=== PATIENT | male | born 1985 | race Caucasian/White ===

== ENCOUNTER 2022-10-29 14:44 | Emergency (ER) | payer OTHER, SELFPAY ==
[2022-10-29 14:52] VITALS: BP 141/106; PULSE 108; RESP 30; TEMP 36.5; O2SAT 98; BMI 37.5
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
--- NOTE | 2022-10-29 14:56 | CT_ITS ---
[facility] [place] [id number] Patient Name: CHUCK PACKER MRN: [id number] date: 1985 Sex: M Assigned Patient Location: ER Current Patient Location: ED.MAIN Accession/Order Number: [id number] Exam Date: 10/29/2022 13:10 Report Date: 10/29/2022 15:35 At the request of: REGGIE BUTLER Procedure: CT head/brain wo con EXAM: CT head/brain wo con HISTORY: Fall COMPARISON: None. TECHNIQUE: Axial CT images were obtained of the head without intravenous contrast. Multiplanar reconstructions were performed. FINDINGS: No acute intracranial hemorrhage. No acute loss of cheung/white differentiation. The ventricles and sulci are normal in appearance. The osseous structures are unremarkable. No soft tissue abnormality identified. The paranasal sinuses and mastoid air cells are clear. IMPRESSION: 1. No acute intracranial abnormality. Electronically authenticated by: ROSALIO KAUFMAN Date: 10/29/2022 15:35
--- NOTE | 2022-10-29 14:56 | CT_ITS ---
[place] [id number] Patient Name: CHUCK PACKER MRN: [id number] date: 1985 Sex: M Assigned Patient Location: ED.MAIN Current Patient Location: ER Accession/Order Number: [id number] Exam Date: 10/29/2022 13:10 Report Date: 10/29/2022 15:39 At the request of: REGGIE BUTLER Procedure: CT cervical spine wo con EXAM: CT cervical spine wo con HISTORY: Fall COMPARISON: None. TECHNIQUE: Axial CT images were obtained of the spine without intravenous contrast. Multiplanar reconstructions were performed. FINDINGS: No acute fracture or malalignment. No significant degenerative changes present. Unremarkable appearance of the paraspinal soft tissues. IMPRESSION: 1. No acute abnormality. Electronically authenticated by: ROSALIO KAUFMAN Date: 10/29/2022 15:39
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
[2022-10-29] MEDS: MORPHINE SULFATE 4 MG/ML VIAL 6 MG IM (15:45)
[2022-10-29] MEDS: ORPHENADRINE 60 MG/ 2 ML VIAL IM (15:46)
[2022-10-29] MEDS: ADACEL DIPH,PERTUSS(ACELL),TET VAC/PF 0.5 ML ADULT SYRINGE IM (15:47)
[2022-10-29] MEDS: BACITRACIN OINTMENT 28.4 GM TUBE 1 APPLIC TOPICAL (15:48)
[2022-10-29] MEDS: ONDANSETRON 4 MG RAPDIS TABLET SL (15:48)
--- NOTE | 2022-10-29 16:19 | PC.NURSE ---
Wounds cleaned with Hibiclens and water. wounds patted dry and thin layer of bacitracin placed on wounds. bandaids placed left finger wounds
== END 2022-10-29 16:49 | disposition home or self-care (01) ==
PROVIDERS: Emergency Provider Emergency Medicine; PCP Nurse Practitioner Family
DX: S70.01XA Contusion of right hip, initial encounter (principal); S50.01XA Contusion of right elbow, initial encounter; S70.311A Abrasion, right thigh, initial encounter; S60.512A Abrasion of left hand, initial encounter; F17.210 Nicotine dependence, cigarettes, uncomplicated; W19.XXXA Unspecified fall, initial encounter; Z23 Encounter for immunization
CPT/HCPCS: 70450; 72125; 73080; 73090; 73130; 73502; 90471; 90715; 96372; 99285

== ENCOUNTER 2022-11-20 11:05 | Emergency (ER) | payer OTHER, SELFPAY ==
[2022-11-20 11:29] VITALS: BP 145/97; PULSE 72; RESP 16; TEMP 36.4; O2SAT 98; BMI 37.8
--- NOTE | 2022-11-20 11:35 | PC.NURSE ---
skin intact, no redness or bruising.
--- NOTE | 2022-11-20 12:47 | XR_ITS ---
The [address] [address] Patient Name: CHUCK PACKER MRN: [id number] date: 1985 Sex: M Assigned Patient Location: ER Current Patient Location: ER Accession/Order Number: [id number] Exam Date: 11/20/2022 13:15 Report Date: 11/20/2022 13:40 At the request of: KORI CHRISTIANSON Procedure: XR hip RT 1V w/ pelvis EXAM: Pelvis and right hip HISTORY: Acute hip pain since a fall one week ago. TECHNIQUE: 3 views of the pelvis and right hip were obtained. FINDINGS: There is no evidence of fracture or dislocation. There are no suspicious bone lesions. Soft tissues are normal. XR/XR hip RT 1V w/ pelvis IMPRESSION: Unremarkable exam. Electronically authenticated by: LUCY JEWELL Date: 11/20/2022 13:40
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
[2022-11-20] MEDS: KETOROLAC TROMETHAMINE 60 MG/2 ML VIAL IM (13:05)
[2022-11-20] MEDS: ORPHENADRINE 60 MG/ 2 ML VIAL IM (13:05)
[2022-11-20] MEDS: PREDNISONE 20 MG TABLET 60 MG PO (13:05)
== END 2022-11-20 14:11 | disposition home or self-care (01) ==
PROVIDERS: Emergency Provider Emergency Medicine; PCP Nurse Practitioner Family
DX: M25.551 Pain in right hip (principal); M70.71 Other bursitis of hip, right hip; F17.210 Nicotine dependence, cigarettes, uncomplicated
CPT/HCPCS: 73501; 96372; 99285

== ENCOUNTER 2023-04-11 13:55 | Emergency (ER) | payer OTHER, SELFPAY ==
[2023-04-11 13:59] VITALS: BP 120/84; PULSE 70; RESP 18; TEMP 36.6; O2SAT 97; BMI 39.7
[2023-04-11 14:36] LABS: Basophils Percent Auto 0.1 % (0.2-2.0); Eosinophils Percent Auto 0.4 % (0.9-7.0); Hemoglobin 15.3 g/dL (14.0-18.0); Immature Granulocytes Abs Auto 0.01 10^3/uL (0.00-0.03); Immature Granulocytes Pct Auto 0.1 % (0.0-0.5); Lymphocytes Absolute Auto 2.3 10^3/uL (1.2-3.8); Mean Corpuscular HGB Conc 34.8 g/dL (29.9-35.2); Mean Corpuscular Hemoglobin 29.7 pg (25.9-34.0); Mean Corpuscular Volume 85.3 fL (80.0-94.0); Monocytes Absolute Auto 0.4 10^3/uL (0.3-0.8); Monocytes Percent Auto 5.5 % (1.7-12.0); Neutrophils Absolute Auto 4.2 10^3/uL (1.4-6.5); Neutrophils Percent Auto 60.9 % (43.0-75.0); Platelet Count 189 10^3/uL (150-450); Red Blood Count 5.16 10^6/uL (4.70-6.10); Red Cell Distribution Width 11.9 % (11.0-15.0); White Blood Count 6.9 10^3/uL (4.0-11.0)
[2023-04-11] MEDS: VANCOMYCIN HCL 2,000 MG in 0.9 % SODIUM CHLORIDE 500 ML 250 MG IV (14:40)
--- NOTE | 2023-04-11 14:43 | ED.SKABFB1 ---
HPI - Skin/Abscess/Foreign Bdy General Chief complaint: Skin/Abscess/Foreign Body Stated complaint: UPPER EXTREMITY INJURY L ARM Time Seen by Provider: 04/11/23 14:01 Source: patient Mode of arrival: walk-in Limitations: no limitations History of Present Illness HPI narrative: 37-year-old male presents to the emergency department for redness and pain and swelling to the left 4th finger. She noticed pain going up his arm and it goes up to his upper arm just above the elbow and he saw some red streak as well. No fever or injury. Related Data Home Medications Medication Instructions Recorded Confirmed divalproex 250 mg tablet,extended 250 mg PO DAILY 04/11/23 04/11/23 release 24 hr fluoxetine 10 mg capsule 30 mg PO DAILY 04/11/23 04/11/23 gabapentin 100 mg capsule 100 mg PO TID 04/11/23 04/11/23 hydroxyzine HCl 25 mg tablet 25 mg PO BID PRN anxiety 04/11/23 04/11/23 olanzapine 10 mg tablet 10 mg PO DAILY 04/11/23 04/11/23 Previous Rx's Medication Instructions Recorded ketorolac 10 mg tablet 10 mg PO TID PRN pain #10 tabs 10/29/22 methocarbamol 750 mg tablet 750 mg PO TID PRN pain #20 tabs 10/29/22 prednisone 20 mg tablet 20 mg PO DAILY 10 days #10 tabs 11/20/22 cephalexin 500 mg capsule 500 mg PO QID 10 days #40 caps 04/11/23 sulfamethoxazole 800 1 tab PO BID 10 days #20 tabs 04/11/23 mg-trimethoprim 160 mg tablet (Bactrim DS) Allergies Allergy/AdvReac Type Severity Reaction Status Date / Time erythromycin base Allergy Intermediate Rash Verified 04/11/23 13:59 Penicillins Allergy Intermediate Rash Verified 04/11/23 13:59 Review of Systems ROS Narrative A ten point review of systems is negative except as noted above. PFSH PFSH Social History Smoking status: Current every day smoker Exam Narrative Exam Narrative: Nurses note and vital signs reviewed and patient is not hypoxic. General: The patient appears well and in no apparent distress. Patient is resting comfortably on cart. Skin: Warm, dry, no pallor noted. There is no rash noted. Head: Normocephalic, atraumatic Eye: Normal conjunctiva, no drainage Ears, Nose, Mouth, and Throat: oral mucosa is moist. Nares patent. Cardiovascular: Regular Rate and Rhythm Respiratory: Patient is in no distress, no accessory muscle use, lungs are clear to auscultation, no wheezing, rales or rhonchi Back: non-tender GI: soft and nontender Musculoskeletal: he has an area of erythema on his left ring finger with a small amount of swelling on the radial side distally. There is no felon and there is no paronychia. There is erythema in a linear fashion extends to the area just above his elbow. There is no fluctuance to the swelling. Neurological: A&O, normal speech Psychiatric: Cooperative Constitutional Vital Signs, click to edit/add: Last Vital Signs Temp 97.9 F 04/11/23 13:59 Pulse 76 04/11/23 15:51 Resp 20 04/11/23 16:31 BP 122/86 04/11/23 15:51 Pulse Ox 98 04/11/23 16:31 O2 Del Method Room Air 04/11/23 13:59 Course Vital Signs Vital signs: Vital Signs Temperature 97.9 F 04/11/23 13:59 Pulse Rate 70 04/11/23 13:59 Respiratory Rate 18 04/11/23 13:59 Blood Pressure 120/84 04/11/23 13:59 Pulse Oximetry 97 04/11/23 13:59 Oxygen Delivery Method Room Air 04/11/23 13:59 Temperature 97.9 F 04/11/23 13:59 Pulse Rate 76 04/11/23 15:51 Respiratory Rate 20 04/11/23 16:31 Blood Pressure 122/86 04/11/23 15:51 Pulse Oximetry 98 04/11/23 16:31 Oxygen Delivery Method Room Air 04/11/23 13:59 MDM - Skin/Abscess/Foreign Bdy MDM Narrative Medical decision making narrative: the patient was given IV vancomycin and discharged home on Bactrim and Keflex. He was recommended warm soaks. He was advised to return if symptoms worsen. At this point there is no indication for incision and drainage. There is no paronychia or felon present. Treatment diagnosis and follow-up were discussed with the patient. Differential Diagnosis Differential diagnosis: Likely abscess of skin or subcutaneous tissue and other (cellulitis, paronychia, felon) Lab Data Attestation: I reviewed the patient's lab results. Labs: Lab Results 04/11/23 Range/Units 14:30 WBC 6.9 (4.0-11.0) 10^3/uL RBC 5.16 (4.70-6.10) 10^6/uL Hgb 15.3 (14.0-18.0) g/dL Hct 44.0 (42.0-54.0) % MCV 85.3 (80.0-94.0) fL MCH 29.7 (25.9-34.0) pg MCHC 34.8 (29.9-35.2) g/dL RDW 11.9 (11.0-15.0) % Plt Count 189 (150-450) 10^3/uL MPV 9.0 L (9.5-13.5) fL Neut % (Auto) 60.9 (43.0-75.0) % Lymph % (Auto) 33.0 (20.5-60.0) % [place] % (Auto) 5.5 (1.7-12.0) % Eos % (Auto) 0.4 L (0.9-7.0) % Baso % (Auto) 0.1 L (0.2-2.0) % Neut # (Auto) 4.2 (1.4-6.5) 10^3/uL Lymph # (Auto) 2.3 (1.2-3.8) 10^3/uL [place] # (Auto) 0.4 (0.3-0.8) 10^3/uL Eos # (Auto) 0.0 (0.0-0.7) 10^3/uL Baso # (Auto) 0.0 (0.0-0.1) 10^3/uL Abs Immat Gran (auto) 0.01 (0.00-0.03) 10^3/uL Imm/Tot Granulo (auto) 0.1 (0.0-0.5) % Sodium 136 (136-145) mmol/L Potassium 4.3 (3.5-5.1) mmol/L Chloride 102 (98-107) mmol/L Carbon Dioxide 25.7 (21.0-32.0) mmol/L Anion Gap 12.6 BUN 15.0 (7.0-18.0) mg/dL Creatinine 1.19 (0.70-1.30) mg/dL Est GFR ( Amer) >60 (>=60) Est GFR (Non-Af Amer) >60 (>=60) BUN/Creatinine Ratio 12.6 Glucose 145 H (74-106) mg/dL Calcium 8.9 (8.5-10.1) mg/dL Discharge Plan Discharge Chief Complaint: Skin/Abscess/Foreign Body Clinical Impression: Cellulitis Patient Disposition: Home, Self-Care Time of Disposition Decision: 16:39 Condition: Good Mode of Transportation: Private Vehicle Prescriptions / Home Meds: New sulfamethoxazole-trimethoprim [Bactrim DS] 800-160 mg tablet 1 tab PO BID 10 Days Qty: 20 0RF cephalexin 500 mg capsule 500 mg PO QID 10 Days Qty: 40 0RF No Action ketorolac 10 mg tablet 10 mg PO TID PRN (Reason: pain) Qty: 10 0RF methocarbamol 750 mg tablet 750 mg PO TID PRN (Reason: pain) Qty: 20 0RF prednisone 20 mg tablet 20 mg PO DAILY 10 Days Qty: 10 0RF Rx Instructions: 2 tabs a day for 5 days then 1 tab a day for 5 days divalproex 250 mg tablet extended release 24 hr 250 mg PO DAILY fluoxetine 10 mg capsule 30 mg PO DAILY gabapentin 100 mg capsule 100 mg PO TID hydroxyzine HCl 25 mg tablet 25 mg PO BID PRN (Reason: anxiety) olanzapine 10 mg tablet 10 mg PO DAILY Instructions: Cellulitis (ED), Warm Compress or Soak (ED) Stand Alone Forms: Portal Instructions Referrals: MERNA SORIANO [Primary Care Provider] - 1 week
[2023-04-11 14:45] LABS: Anion Gap 12.6; BUN Creatinine Ratio 12.6; Calcium 8.9 mg/dL (8.5-10.1); Carbon Dioxide 25.7 mmol/L (21.0-32.0); Chloride 102 mmol/L (98-107); Estimated GFR (African America >60 (>=60); Estimated GFR (Non-African Ame >60 (>=60); Glucose 145 mg/dL (74-106); Potassium 4.3 mmol/L (3.5-5.1); Sodium 136 mmol/L (136-145)
[2023-04-11 15:51] VITALS: BP 122/86; PULSE 76; RESP 16; O2SAT 98
[2023-04-11 16:31] VITALS: RESP 20; O2SAT 98
[2023-04-11] MEDS: DIPHENHYDRAMINE HCL 50 MG/ML (1ML) VIAL 25 MG IV (17:13)
[2023-04-11 17:14] VITALS: BP 130/90; PULSE 83; RESP 18; O2SAT 97
== END 2023-04-11 17:27 | disposition home or self-care (01) ==
PROVIDERS: Emergency Provider Emergency Medicine; PCP Nurse Practitioner Family
DX: L03.012 Cellulitis of left finger (principal); Z79.899 Other long term (current) drug therapy; F17.210 Nicotine dependence, cigarettes, uncomplicated
CPT/HCPCS: 36415; 80048; 85025; 96365; 96366; 96375; 99284; J3370

== ENCOUNTER 2023-05-17 10:32 | Emergency (ER) | payer OTHER, SELFPAY ==
[2023-05-17 10:37] VITALS: BP 140/107; PULSE 100; RESP 18; TEMP 36.4; O2SAT 98; BMI 38.5
--- OUTSIDE RECORDS SUMMARY | 2023-05-17 10:39 | XMS_ITS | CCD ---
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 ratio] 15.7 mg/mg Normal [facility] Comment on above: Performed By: #### L IPA, CMP, HSTROPN #### [facility] [address] [address] [address] Oh Trotter PROTIMEon 07-28-2022 INR Coag (PPP) [Relative time] {INR} Normal [facility] Comment on above: Performed By: #### P TT, PT #### [facility] [address] [place] [address] Dr. Oh Trotter INR GUIDELINES SEE BELOW Normal [facility] Comment on above: Result Comment: ADITHYA RED INR: 2.0 - 3.0 CONDITIONS NOT LISTED BELOW 2.5 - 3.5 FOR PROSTHETIC HEART VALVE REPLACEMENT 2.5 - 3.5 RECURRENT THROMBOSIS Performed By: #### P TT, PT #### [facility] [address] [place] [address] Dr. Oh Trotter PT Coag (PPP) [Time] 9.8 s Normal 9.0-11.6 [facility] Comment on above: Performed By: #### P TT, PT #### [facility] [address] [place] [address] Dr. Oh Trotter PTTon 07-28-2022 aPTT Coag (Bld) [Time] 26.6 s Normal 22.3-36.2 [facility] Comment on above: Performed By: #### P TT, PT #### [facility] [address] [place] [address] Dr. Oh Trotter Outside Colonoscopyon 2022 Outside Colonoscopy [id number] 0CD:127 Normal [facility] Pre-Certification Formon Pre-Certification Form [id number] 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1985 Visit Date:06/03/2022 Ambulatory Visit Instructions Your Diagnosis Change in bowel habits Rectal bleeding Pain, abdominal, periumbilical Abdominal pain, suprapubic Your Care Team Attending Physician - VIVIANE SIMS, Lucy Rich Primary Care Physician - CHRISTIE REAL, LEIGHANN [place] This Is Your Medications List Contact prescribing physician if questions or concerns albuterol (Albuterol (Eqv-ProAir HFA)) gabapentin (gabapentin 300 mg Cap) hydrOXYzine (hydrOXYzine hydrochloride 25 mg Tab) hyoscyamine (Levsin 0.125 mg SL Tab) omeprazole (omeprazole 40 mg Cap-DR) Procedures Performed Cardiac ablation using fluoroscopy guidance (2002), Cholecystectomy. Discharge Vitals Heart Rate (Peripheral) 76 Respiratory Rate 16 Blood Pressure 132/86 Height 190.5 cm Height 75 in Weight 130 kg Weight 286 lb BMI 35.82 Medications What How Much When Instructions Unchanged albuterol (Albuterol (Eqv-ProAir HFA)) 2 Puffs Inhalation Every 4 hours as needed for Shortness of breath or wheezing Contact prescribing physician if questions or concerns Unchanged gabapentin (gabapentin 300 mg Cap) 1 Capsules By Mouth Every day Contact prescribing physician if questions or concerns Unchanged hydrOXYzine (hydrOXYzine hydrochloride 25 mg Tab) 1 Tablets By Mouth 2 times a day as needed for as needed for anxiety Contact prescribing physician if questions or concerns Unchanged hyoscyamine (Levsin 0.125 mg SL Tab) 1 Tablets By Mouth 4 times a day as needed for cramps Contact prescribing physician if questions or concerns Unchanged omeprazole (omeprazole 40 mg Cap-DR) 1 Capsules By Mouth Every day Contact prescribing physician if questions or concerns Medications and Immunizations Administered Not Given influenza virus vaccine, inactivated, Patient Refuses Allergies erythromycin (rash) penicillins (Hives) Problems Ongoing - Any problem that you are currently receiving treatment for. 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 Atrial fibrillation Epididymitis Nocturia Scrotal pain Normal [facility] Physician Referralon 023 Physician Referral [id number] 0CD:127 Normal [facility]on SARS-CoV-2 (COVID-19) RNA SHAE+probe Ql (Unsp spec) Not detected Normal NOT DETECTED [facility] Comment on above: Result Comment: This test is not yet approved or cleared by the [place] FDA. When there are no FDA-approved or cleared tests available, and other criteria are met, FDA can make tests available under an emergency access mechanism called an Emergency Use Authorization (EUA). The EUA for this test is supported by the [place] of Health and Human Service's (HHS's) declaration that circumstances exist to justify the emergency use of in vitro diagnostics for the detection and/or diagnosis of the virus that causes COVID-19. This EUA will remain in effect (meaning this test can be used) for the duration of the COVID-19 declaration justifying emergency of IVDs, unless it is terminated or revoked by FDA (after which the test may no longer be used). When diagnostic testing is negative, the possibility of a false negative should be considered in the context of a patient's recent exposures and the presence of clinical signs and symptoms consistent with SARS-CoV-2. Performed By: #### P TT, PT #### [facility] [address] [address] [address] Oh Trotter INFLUENZA A [facility] B [facility] Normal [facility] Comment on above: Result Comment: Nega tive for Flu A protein angiten. Infection due to Flu A cannot be ruled out. Flu A angiten in the sample may be below the detection limit of the test. Performed By: #### L IPA, CMP, HSTROPN #### [facility] [address] [address] [address] [facility] Normal [facility] Comment on above: Result Comment: Nega tive for Flu B protein antigen. Infection due to Flu B cannot be ruled out. Flu B antigen in the sample may be below the detection limit of the test. Performed By: #### L IPA, CMP, HSTROPN #### [facility] [address] [place] [address] Dr. Oh Trotter INFLUENZA A AG Negative Normal NEGATIVE SEE COMMENT [facility] Comment on above: Performed By: #### L IPA, CMP, HSTROPN #### [facility] [address] [place] [address] Dr. Oh Trotter INFLUENZA B AG Negative Normal NEGATIVE SEE COMMENT [facility] Comment on above: Performed By: #### L IPA, CMP, HSTROPN #### [facility] [address] [place] [address] Dr. Oh Trotter CBC AUTO DIFFon 03-06-2022 BASO # 0.0 103/ul Normal 0.0-0.1 [facility] Comment on above: Performed By: #### P TT, PT #### [facility] [address] [place] [address] Dr. Oh Trotter Basophils/100 WBC (Bld) 0.2 % Normal 0.2-2.0 [facility] Comment on above: Performed By: #### P TT, PT #### [facility] [address] [place] [address] Dr. Oh Trotter EO # 0.0 103/ul Normal 0.0-0.7 [facility] Comment on above: Performed By: #### P TT, PT #### [facility] [address] [place] [address] Dr. Oh Trotter Eosinophils/100 WBC (Bld) 0.4 % Critically low 0.9-7.0 [facility] Comment on above: Performed By: #### P TT, PT #### [facility] [address] [place] [address] Dr. Oh Trotter Erythrocyte distribution width (RBC) [Ratio] 12.2 % Normal 11.0-15.0 [facility] Comment on above: Performed By: #### P TT, PT #### [facility] [address] [place] [address] Dr. Oh Trotter Hematocrit (Bld) [Volume fraction] 45.7 % Normal 42.0-54.0 [facility] Comment on above: Performed By: #### P TT, PT #### [facility] [address] [place] [address] Dr. Oh Trotter Hemoglobin (Bld) [Mass/Vol] 16.0 g/dL Normal 14.0-18.0 [facility] Comment on above: Performed By: #### P TT, PT #### [facility] [address] [place] [address] Dr. Oh Trotter IG # 0.04 10e3/ul Critically high 0.00-0.03 [facility] Comment on above: Performed By: #### P TT, PT #### [facility] [address] [place] [address] Dr. Oh Trotter IG % 0.4 % Normal 0.0-0.5 [facility] Comment on above: Performed By: #### P TT, PT #### [facility] [address] [place] [address] Dr. Oh Trotter LYMPH # 2.8 103/ul Normal 1.2-3.8 [facility] Comment on above: Performed By: #### P TT, PT #### [facility] [address] [place] [address] Dr. Oh Trotter Lymphocytes/100 WBC (Bld) 29.5 % Normal 20.5-60.0 [facility] Comment on above: Performed By: #### P TT, PT #### [facility] [address] [place] [address] Dr. Oh Trotter MANUAL DIFF REQ NO Normal [facility] Comment on above: Performed By: #### P TT, PT #### [facility] [address] [place] [address] Dr. Oh Trotter MCH (RBC) [Entitic mass] 29.7 pg Normal 25.9-34.0 [facility] Comment on above: Performed By: #### P TT, PT #### [facility] [address] [address] [address] Oh Trotter MCHC (RBC) [Mass/Vol] 35.0 g/dL Normal 29.9-35.2 [facility] Comment on above: Performed By: #### P TT, PT #### [facility] [address] [place] [address] Dr. Oh Trotter MCV (RBC) [Entitic vol] 84.8 fL Normal 80.0-94.0 [facility] Comment on above: Performed By: #### P TT, PT #### [facility] [address] [place] [address] Dr. Oh Trotter MONO # 0.5 103/ul Normal 0.3-0.8 [facility] Comment on above: Performed By: #### P TT, PT #### [facility] [address] [place] [address] Dr. Oh Trotter Monocytes/100 WBC (Bld) 5.2 % Normal 1.7-12.0 [facility] Comment on above: Performed By: #### P TT, PT #### [facility] [address] [place] [address] Dr. Oh Trotter NEUT # 6.2 103/ul Normal 1.4-6.5 [facility] Comment on above: Performed By: #### P TT, PT #### [facility] [address] [place] [address] Dr. Oh Trotter Neutrophils/100 WBC (Bld) 64.3 % Normal 43.0-75.0 [facility] Comment on above: Performed By: #### P TT, PT #### [facility] [address] [place] [address] Dr. Oh Trotter Platelet mean volume (Bld) [Entitic vol] 9.9 fL Normal 9.5-13.5 [facility] Comment on above: Performed By: #### P TT, PT #### [facility] [address] [place] [address] Dr. Oh Trotter PLT 196 103/ul Normal 150-450 [facility] Comment on above: Performed By: #### P TT, PT #### [facility] [address] [place] [address] Dr. Oh Trotter RBC 5.39 106/ul Normal 4.70-6.10 [facility] Comment on above: Performed By: #### P TT, PT #### [facility] [address] [place] [address] Dr. Oh Trotter WBC 9.6 103/ul Normal 4.0-11.0 [facility] Comment on above: Performed By: #### P TT, PT #### [facility] [address] [place] [address] Dr. Oh Trotter D-DIMERon 03-06-2022 D-DIMER <0.19 Normal <=0.59 [facility] Comment on above: Performed By: #### P TT, PT #### [facility] [address] [place] [address] Dr. Oh Trotter D-DIMER COMMENTS SEE BELOW Normal [facility] Comment on above: Result Comment: Incr eases in D-Dimer concentration observed with thromboembolic events can be variable due to localization, size, and age of the thrombus. Therefore, a thromboembolic event cannot be diagnosed with certainty on the basis of the reference range. D-Dimers may also be elevated for a variety of disorders including: advanced age, , coronary disease, cancer, liver disease, infection, inflammation, hematoma, DIC, trauma, post-surgery, diabetes, thrombolytic or anticoagulant therapy, stress, and generalized hospitalization. Performed By: #### P TT, PT #### [facility] [address] [place] [address] Dr. Oh Trotter ER URINE PROFILEon 2 Bilirubin Ql (U) Negative Normal NEGATIVE [facility] Comment on above: Performed By: #### MATHIEU STONERRO #### [facility] [address] [place] [address] Dr. Oh Trotter Clarity (U) CLEAR Normal CLEAR [facility] Comment on above: Performed By: #### E MATHIEU GLOVERRO #### [facility] [address] [place] [address] Dr. Oh Trotter Color (U) LT. YELLOW Normal YELLOW [facility] Comment on above: Performed By: #### Marcelo GLOVER UMICRO #### [facility] [address] [place] [address] Dr. Oh OLIVA A micrscopic examination will be performed if indicated. Normal [facility] Comment on above: Performed By: #### Marcelo GLOVER UMICRO #### [facility] [address] [place] [address] Dr. Oh Trotter Glucose Ql (U) Negative Normal NEGATIVE [facility] Comment on above: Performed By: #### Marcelo GLOVER UMICRO #### [facility] [address] [place] [address] Dr. Oh Trotter Hemoglobin Ql (U) SMALL Abnormal NEGATIVE [facility] Comment on above: Performed By: #### Marcelo GLOVER UMICRO #### [facility] [address] [place] [address] Dr. Oh Trotter Ketones Ql (U) Negative Normal NEGATIVE [facility] Comment on above: Performed By: #### Marcelo GLOVER UMICRO #### [facility] [address] [place] [address] Dr. Oh Trotter LEUKOCYTES Negative Normal NEGATIVE [facility] Comment on above: Performed By: #### Marcelo GLOVER UMICRO #### [facility] [address] [place] [address] Dr. Oh Trotter Nitrite Ql (U) Negative Normal NEGATIVE [facility] Comment on above: Performed By: #### Marcelo GLOVER UMICRO #### [facility] [address] [place] [address] Dr. hO Trotter pH (U) 6.0 [pH] Normal 5-9 [facility] Comment on above: Performed By: #### Marcelo GLOVER UMICRO #### [facility] [address] [place] [address] Dr. Oh Trotter SPEC GRAVITY 1.025 Normal 1.005-<=1.025 [facility] Comment on above: Performed By: #### MATHIEU STONERRO #### [facility] [address] [place] [address] Dr. Oh Trotter UA PROTEIN Negative Normal NEGATIVE/ TRACE [facility] Comment on above: Performed By: #### E MATHIEU GLOVERRO #### [facility] [address] [place] [address] Dr. Oh Trotter UR MICRO IND INDICATED Normal [facility] Comment on above: Performed By: #### MATHIEU STONERRO #### [facility] [address] [place] [address] Dr. Oh Trotter Urobilinogen Qn (U) 0.2 {Federico'U}/dL Normal 0.2 - 1. 0 [facility] Comment on above: Performed By: #### OSVALDO STONER #### [facility] [address] [place] [address] Dr. Oh Trotter LIPASEon 03-06-2022 Lipase [Catalytic activity/Vol] 125.0 U/L Normal 73.0-393.0 [facility] Comment on above: Performed By: #### L IPA, CMP, HSTROPN #### [facility] [address] [place] [address] Dr. Oh Trotter PROF 14(COMP METB)on 022 Albumin [Mass/Vol] 3.8 g/dL Normal 3.4-5.0 [facility] Comment on above: Performed By: #### L IPA, CMP, HSTROPN #### [facility] [address] [place] [address] Dr. Oh Trotter Albumin/Globulin [Mass ratio] 0.8 {ratio} Normal [facility] Comment on above: Performed By: #### L IPA, CMP, HSTROPN #### [facility] [address] [place] [address] Dr. Oh Trotter ALP [Catalytic activity/Vol] 77 U/L Normal 46-116 [facility] Comment on above: Performed By: #### L IPA, CMP, HSTROPN #### [facility] [address] [place] [address] Dr. Oh Trotter ALT [Catalytic activity/Vol] 39 U/L Normal 16-63 [facility] Comment on above: Performed By: #### L IPA, CMP, HSTROPN #### [facility] [address] [address] [address] Oh Trotter Anion gap [Moles/Vol] 9.3 mmol/L Normal [facility] Comment on above: Performed By: #### L IPA, CMP, HSTROPN #### [facility] [address] [address] [address] Oh Trotter AST [Catalytic activity/Vol] 21 U/L Normal 15-37 [facility] Comment on above: Performed By: #### L IPA, CMP, HSTROPN #### [facility] [address] [address] [address] Oh Trotter Bilirubin [Mass/Vol] 0.4 mg/dL Normal 0.2-1.0 [facility] Comment on above: Performed By: #### L IPA, CMP, HSTROPN #### [facility] [address] [address] [address] Oh Trotter Calcium [Mass/Vol] 9.2 mg/dL Normal 8.5-10.1 [facility] Comment on above: Performed By: #### L IPA, CMP, HSTROPN #### [facility] [address] [address] [address] Oh Trotter Chloride [Moles/Vol] 102 mmol/L Normal 98-107 [facility] Comment on above: Performed By: #### L IPA, CMP, HSTROPN #### [facility] [address] [address] [address] Oh Trotter CO2 [Moles/Vol] 26.6 mmol/L Normal 21.0-32.0 [facility] Comment on above: Performed By: #### L IPA, CMP, HSTROPN #### [facility] [address] [address] [address] Oh Trotter Creatinine [Mass/Vol] 1.08 mg/dL Normal 0.70-1.30 [facility] Comment on above: Performed By: #### L IPA, CMP, HSTROPN #### [facility] [address] [address] [address] Oh Trotter EGFR-AF BOLIVIAN >60 Normal >=60 [facility] Comment on above: Performed By: #### L IPA, CMP, HSTROPN #### [facility] [address] [address] [address] Oh Trotter EGFR-NON AF BOLIVIAN >60 Normal >=60 [facility] Comment on above: Performed By: #### L IPA, CMP, HSTROPN #### [facility] [address] [place] [address] Dr. Oh Trotter Globulin (S) [Mass/Vol] 4.7 g/dL Normal [facility] Comment on above: Performed By: #### L IPA, CMP, HSTROPN #### [facility] [address] [place] [address] Dr. Oh Trotter Glucose [Mass/Vol] 103 mg/dL Normal 74-106 [facility] Comment on above: Performed By: #### L IPA, CMP, HSTROPN #### [facility] [address] [place] [address] Dr. Oh Trotter Potassium [Moles/Vol] 3.9 mmol/L Normal 3.5-5.1 [facility] Comment on above: Performed By: #### L IPA, CMP, HSTROPN #### [facility] [address] [address] [address] Oh Trotter Protein [Mass/Vol] 8.5 g/dL Critically high 6.4-8.2 [facility] Comment on above: Performed By: #### L IPA, CMP, HSTROPN #### [facility] [address] [place] [address] Dr. Oh Trotter Sodium [Moles/Vol] 134 mmol/L Critically low 136-145 [facility] Comment on above: Performed By: #### L IPA, CMP, HSTROPN #### [facility] [address] [place] [address] Dr. Oh Trotter Urea nitrogen [Mass/Vol] 20.0 mg/dL Critically high 7.0-18.0 [facility] Comment on above: Performed By: #### L IPA, CMP, HSTROPN #### [facility] [address] [place] [address] Dr. Oh Trotter Urea nitrogen/Creatinine [Mass ratio] 18.5 mg/mg Normal [facility] Comment on above: Performed By: #### L IPA, CMP, HSTROPN #### [facility] [address] [place] [address] Dr. Oh Trotter PROTIMEon 03-06-2022 INR Coag (PPP) [Relative time] 1.00 {INR} Normal [facility] Comment on above: Performed By: #### P TT, PT #### [facility] [address] [place] [address] Dr. Oh Trotter INR GUIDELINES SEE BELOW Normal [facility] Comment on above: Result Comment: ADITHYA RED INR: 2.0 - 3.0 CONDITIONS NOT LISTED BELOW 2.5 - 3.5 FOR PROSTHETIC HEART VALVE REPLACEMENT 2.5 - 3.5 RECURRENT THROMBOSIS Performed By: #### P TT, PT #### [facility] [address] [place] [address] Dr. Oh Trotter PT Coag (PPP) [Time] 10.8 s Normal 9.0-11.6 [facility] Comment on above: Performed By: #### P TT, PT #### [facility] [address] [place] [address] Dr. Oh Trotter PTTon 03-06-2022 aPTT Coag (Bld) [Time] 27.9 s Normal 22.3-36.2 [facility] Comment on above: Performed By: #### P TT, PT #### [facility] [address] [place] [address] Dr. Oh Trotter TROPONIN, HIGH SENSITIVITYon 03-06-2022 HSTROP 7.9 pg/mL Normal 4.0-76.1 [facility] Comment on above: Result Comment: CUT- OFF POINTS HAVE BEEN ESTABLISHED BASED ON THE FOURTH UNIVERSAL DEFINITIONS OF MYOCARDIAL INFARCTION. THE UPPER REFERENCE LIMIT (URL) OF TROPONIN, DEFINED THE 99TH PERCENTILE OF cTnI DISTRIBUTION IN A REFERENCE POPULATION, HAS BEEN CONFIRMED THE DECISION THRESHOLD FOR [facility] DIAGNOSIS. Performed By: #### L IPA, CMP, HSTROPN #### [facility] [address] [place] [address] Dr. Oh Trotter URINE MICROSCOPIC ONLYon BACTERIA NONE SEEN Normal NONE SEEN [facility] Comment on above: Performed By: #### E RUR, UMICRO #### [facility] [address] [place] [address] Dr. Oh Trotter Bacteria identified Cx Nom (U) NOT INDICATED Normal [facility] Comment on above: Performed By: #### E RUR, UMICRO #### [facility] [address] [place] [address] Dr. Oh Trotter CAST NONE SEEN Normal NONE SEEN [facility] Comment on above: Performed By: #### E JUNER, UMICRO #### [facility] [address] [place] [address] Dr. Oh Trotter Crystals LM Nom (Urine sed) NONE SEEN Normal NONE SEEN [facility] Comment on above: Performed By: #### E RUR, UMICRO #### [facility] [address] [place] [address] Dr. Oh Trotter Epithelial cells LM Ql (Urine sed) FEW Abnormal NONE SEEN /RARE [facility] Comment on above: Performed By: #### E RUR, UMICRO #### [facility] [address] [place] [address] Dr. Oh Trotter MUCOUS MODERATE Abnormal NONE SEEN [facility] Comment on above: Performed By: #### E ADALBERTO, UMICRO #### [facility] [address] [place] [address] Dr. Oh Trotter RBC 0-2 Normal 0-2 [facility] Comment on above: Performed By: #### E RUR, UMICRO #### [facility] [address] [place] [address] Dr. Oh Trotter WBC NONE SEEN Normal NONE SEEN [facility] Comment on above: Performed By: #### E RUR, AUBRIEICRO #### [facility] [address] [address] [address] Oh Trotter XR ABD FLAT UP_PA German 03-06 XR ABD FLAT UP_PA CH EXAM: Acute abdomen series: HISTORY: Chest pain, worse with movement. COMPARISON STUDY: 10/16/2021 FINDINGS: The upright frontal view of the chest shows clear and well-inflated lungs. The heart and mediastinum are normal. Flat and upright views of the abdomen and pelvis show a normal bowel gas pattern. There is a mild amount of stool in the colon. No abnormal calcifications are seen. Osseous structures are normal. IMPRESSION: Grossly negative for an acute intra-abdominal process. If clinical concern remains, consider further imaging with CT. Electronically authenticated by: LUCY JEWELL Date: 2022-03-06 15:55 Normal [facility] XR CSPINE 2_3 VIEWSon 2021 XR CSPINE 2_3 VIEWS EXAM: C-spine HISTORY: Neck pain radiating into the chest. Comparison studies: None TECHNIQUE: 4 views of the cervical spine were obtained. FINDINGS: The C7-T1 level is not well visualized. The lateral view shows partial straightening of the normal curvature. There is no evidence of acute fracture or subluxation. No suspicious bone lesions are seen. No degenerative changes are seen. The rest of the visualized structures are unremarkable. IMPRESSION: Limited but grossly unremarkable exam. Electronically authenticated by: LUCY JEWELL Date: 2022-03-06 15:54 Normal [facility] CBC AUTO DIFFon 11-02-2021 BASO # 0.0 103/ul Normal 0.0-0.1 [facility] Comment on above: Performed By: #### L IPA, CMP, HSTROPN #### [facility] [address] [address] [address] Oh Trotter Basophils/100 WBC (Bld) 0.2 % Normal 0.2-2.0 [facility] Comment on above: Performed By: #### L IPA, CMP, HSTROPN #### [facility] [address] [address] [address] Oh Trotter EO # 0.1 103/ul Normal 0.0-0.7 [facility] Comment on above: Performed By: #### L IPA, CMP, HSTROPN #### [facility] [address] [place] [address] Dr. Oh Trotter Eosinophils/100 WBC (Bld) 1.0 % Normal 0.9-7.0 [facility] Comment on above: Performed By: #### L IPA, CMP, HSTROPN #### [facility] [address] [address] [address] Oh Trotter Erythrocyte distribution width (RBC) [Ratio] 13.0 % Normal 11.0-15.0 [facility] Comment on above: Performed By: #### L IPA, CMP, HSTROPN #### [facility] [address] [place] [address] Dr. Oh Trotter Hematocrit (Bld) [Volume fraction] 46.6 % Normal 42.0-54.0 [facility] Comment on above: Performed By: #### L IPA, CMP, HSTROPN #### [facility] [address] [place] [address] Dr. Oh Trotter Hemoglobin (Bld) [Mass/Vol] 15.8 g/dL Normal 14.0-18.0 [facility] Comment on above: Performed By: #### L IPA, CMP, HSTROPN #### [facility] [address] [place] [address] Dr. hO Trotter IG # 0.02 10e3/ul Normal 0.00-0.03 [facility] Comment on above: Performed By: #### L IPA, CMP, HSTROPN #### [facility] [address] [place] [address] Dr. Oh Trotter IG % 0.2 % Normal 0.0-0.5 [facility] Comment on above: Performed By: #### L IPA, CMP, HSTROPN #### [facility] [address] [place] [address] Dr. Oh Trotter LYMPH # 1.6 103/ul Normal 1.2-3.8 [facility] Comment on above: Performed By: #### L IPA, CMP, HSTROPN #### [facility] [address] [place] [address] Dr. Oh Trotter Lymphocytes/100 WBC (Bld) 15.3 % Critically low 20.5-60.0 [facility] Comment on above: Performed By: #### L IPA, CMP, HSTROPN #### [facility] [address] [place] [address] Dr. Oh Trotter MANUAL DIFF REQ NO Normal [facility] Comment on above: Performed By: #### L IPA, CMP, HSTROPN #### [facility] [address] [place] [address] Dr. Oh Trotter MCH (RBC) [Entitic mass] 30.1 pg Normal 25.9-34.0 [facility] Comment on above: Performed By: #### L IPA, CMP, HSTROPN #### [facility] [address] [place] [address] Dr. Oh Trotter MCHC (RBC) [Mass/Vol] 33.9 g/dL Normal 29.9-35.2 [facility] Comment on above: Performed By: #### L IPA, CMP, HSTROPN #### [facility] [address] [place] [address] Dr. Oh Trotter MCV (RBC) [Entitic vol] 88.8 fL Normal 80.0-94.0 [facility] Comment on above: Performed By: #### L IPA, CMP, HSTROPN #### [facility] [address] [place] [address] Dr. Oh Trotter MONO # 0.7 103/ul Normal 0.3-0.8 [facility] Comment on above: Performed By: #### L IPA, CMP, HSTROPN #### [facility] [address] [place] [address] Dr. Oh Trotter Monocytes/100 WBC (Bld) 6.8 % Normal 1.7-12.0 [facility] Comment on above: Performed By: #### L IPA, CMP, HSTROPN #### [facility] [address] [address] [address] Oh Trotter NEUT # 7.9 103/ul Critically high 1.4-6.5 [facility] Comment on above: Performed By: #### L IPA, CMP, HSTROPN #### [facility] [address] [place] [address] Dr. Oh Trotter Neutrophils/100 WBC (Bld) 76.5 % Critically high 43.0-75.0 [facility] Comment on above: Performed By: #### L IPA, CMP, HSTROPN #### [facility] [address] [place] [address] Dr. Oh Trotter Platelet mean volume (Bld) [Entitic vol] 9.5 fL Normal 9.5-13.5 [facility] Comment on above: Performed By: #### L IPA, CMP, HSTROPN #### [facility] [address] [place] [address] Dr. Oh Trotter PLT 191 103/ul Normal 150-450 [facility] Comment on above: Performed By: #### L IPA, CMP, HSTROPN #### [facility] [address] [place] [address] Dr. Oh Trotter RBC 5.25 106/ul Normal 4.70-6.10 [facility] Comment on above: Performed By: #### L IPA, CMP, HSTROPN #### [facility] [address] [place] [address] Dr. Oh Trotter WBC 10.4 103/ul Normal 4.0-11.0 [facility] Comment on above: Performed By: #### L IPA, CMP, HSTROPN #### [facility] [address] [place] [address] Dr. Oh Trotter PROF CHEM 8 (BAS METB)on Anion gap [Moles/Vol] 9.7 mmol/L Normal [facility] Comment on above: Performed By: #### L IPA, CMP, HSTROPN #### [facility] [address] [place] [address] Dr. Oh Trotter Calcium [Mass/Vol] 8.9 mg/dL Normal 8.5-10.1 [facility] Comment on above: Performed By: #### L IPA, CMP, HSTROPN #### [facility] [address] [address] [address] Oh Trotter Chloride [Moles/Vol] 102 mmol/L Normal 98-107 [facility] Comment on above: Performed By: #### L IPA, CMP, HSTROPN #### [facility] [address] [address] [address] Oh Trotter CO2 [Moles/Vol] 29.1 mmol/L Normal 21.0-32.0 [facility] Comment on above: Performed By: #### L IPA, CMP, HSTROPN #### [facility] [address] [address] [address] Oh Trtoter Creatinine [Mass/Vol] 1.10 mg/dL Normal 0.70-1.30 [facility] Comment on above: Performed By: #### L IPA, CMP, HSTROPN #### [facility] [address] [address] [address] Oh Trotter EGFR-AF BOLIVIAN >60 Normal >=60 [facility] Comment on above: Performed By: #### L IPA, CMP, HSTROPN #### [facility] [address] [address] [address] Oh Trotter EGFR-NON AF BOLIVIAN >60 Normal >=60 [facility] Comment on above: Performed By: #### L IPA, CMP, HSTROPN #### [facility] [address] [address] [address] Oh Trotter Glucose [Mass/Vol] 114 mg/dL Critically high 74-106 [facility] Comment on above: Performed By: #### L IPA, CMP, HSTROPN #### [facility] [address] [address] [address] Oh Trotter Potassium [Moles/Vol] 3.8 mmol/L Normal 3.5-5.1 [facility] Comment on above: Performed By: #### L IPA, CMP, HSTROPN #### [facility] [address] [address] [address] Oh Trotter Sodium [Moles/Vol] 137 mmol/L Normal 136-145 [facility] Comment on above: Performed By: #### L IPA, CMP, HSTROPN #### [facility] [address] [address] [address] Oh Trotter Urea nitrogen [Mass/Vol] 10.0 mg/dL Normal 7.0-18.0 [facility] Comment on above: Performed By: #### L IPA, CMP, HSTROPN #### [facility] [address] [place] [address] Dr. Oh rTotter Urea nitrogen/Creatinine [Mass ratio] 9.1 mg/mg Normal [facility] Comment on above: Performed By: #### L IPA, CMP, HSTROPN #### [facility] [address] [place] [address] Dr. Oh Trotter CARDIAC SUKUMAR ADMITon 022 CK [Catalytic activity/Vol] 97 U/L Normal 39-308 [facility] Comment on above: Performed By: #### L IPA, CMP, HSTROPN #### [facility] [address] [place] [address] Dr. Oh Trotter CK.MB [Mass/Vol] 0.75 ng/mL Normal <=3.60 [facility] Comment on above: Performed By: #### L IPA, CMP, HSTROPN #### [facility] [address] [place] [address] Dr. Oh Trotter HSTROP 4.4 pg/mL Normal 4.0-76.1 [facility] Comment on above: Result Comment: CUT- OFF POINTS HAVE BEEN ESTABLISHED BASED ON THE FOURTH UNIVERSAL DEFINITIONS OF MYOCARDIAL INFARCTION. THE UPPER REFERENCE LIMIT (URL) OF TROPONIN, DEFINED THE 99TH PERCENTILE OF cTnI DISTRIBUTION IN A REFERENCE POPULATION, HAS BEEN CONFIRMED THE DECISION THRESHOLD FOR [facility] DIAGNOSIS. Performed By: #### L IPA, CMP, HSTROPN #### [facility] [address] [place] [address] Dr. Oh Trotter CARON 54 ng/mL Normal 16-96 [facility] Comment on above: Performed By: #### L IPA, CMP, HSTROPN #### [facility] [address] [place] [address] Dr. Oh Trotter CBC AUTO DIFFon 10-16-2021 BASO # 0.0 103/ul Normal 0.0-0.1 [facility] Comment on above: Performed By: #### P TT, PT #### [facility] [address] [place] [address] Dr. Oh Trotter Basophils/100 WBC (Bld) 0.1 % Critically low 0.2-2.0 [facility] Comment on above: Performed By: #### P TT, PT #### [facility] [address] [place] [address] Dr. Oh Trotter EO # 0.0 103/ul Normal 0.0-0.7 [facility] Comment on above: Performed By: #### P TT, PT #### [facility] [address] [place] [address] Dr. Oh Trotter Eosinophils/100 WBC (Bld) 0.3 % Critically low 0.9-7.0 [facility] Comment on above: Performed By: #### P TT, PT #### [facility] [address] [place] [address] Dr. Oh Trotter Erythrocyte distribution width (RBC) [Ratio] 12.5 % Normal 11.0-15.0 [facility] Comment on above: Performed By: #### P TT, PT #### [facility] [address] [place] [address] Dr. Oh Trotter Hematocrit (Bld) [Volume fraction] 47.1 % Normal 42.0-54.0 [facility] Comment on above: Performed By: #### P TT, PT #### [facility] [address] [place] [address] Dr. Oh Trotter Hemoglobin (Bld) [Mass/Vol] 16.7 g/dL Normal 14.0-18.0 [facility] Comment on above: Performed By: #### P TT, PT #### [facility] [address] [place] [address] Dr. Oh Trotter IG # 0.02 10e3/ul Normal 0.00-0.03 [facility] Comment on above: Performed By: #### P TT, PT #### [facility] [address] [place] [address] Dr. Oh Trotter IG % 0.3 % Normal 0.0-0.5 [facility] Comment on above: Performed By: #### P TT, PT #### [facility] [address] [place] [address] Dr. Oh Trotter LYMPH # 2.3 103/ul Normal 1.2-3.8 [facility] Comment on above: Performed By: #### P TT, PT #### [facility] [address] [place] [address] Dr. Oh Trotter Lymphocytes/100 WBC (Bld) 31.7 % Normal 20.5-60.0 [facility] Comment on above: Performed By: #### P TT, PT #### [facility] [address] [place] [address] Dr. Oh Trotter MANUAL DIFF REQ NO Normal [facility] Comment on above: Performed By: #### P TT, PT #### [facility] [address] [place] [address] Dr. Oh Trotter MCH (RBC) [Entitic mass] 29.9 pg Normal 25.9-34.0 [facility] Comment on above: Performed By: #### P TT, PT #### [facility] [address] [place] [address] Dr. Oh Trotter MCHC (RBC) [Mass/Vol] 35.5 g/dL Critically high 29.9-35.2 [facility] Comment on above: Performed By: #### P TT, PT #### [facility] [address] [place] [address] Dr. Oh Trotter MCV (RBC) [Entitic vol] 84.4 fL Normal 80.0-94.0 [facility] Comment on above: Performed By: #### P TT, PT #### [facility] [address] [address] [address] Oh Trotter MONO # 0.4 103/ul Normal 0.3-0.8 [facility] Comment on above: Performed By: #### P TT, PT #### [facility] [address] [place] [address] Dr. Oh Trotter Monocytes/100 WBC (Bld) 4.9 % Normal 1.7-12.0 [facility] Comment on above: Performed By: #### P TT, PT #### [facility] [address] [place] [address] Dr. Oh Trotter NEUT # 4.6 103/ul Normal 1.4-6.5 [facility] Comment on above: Performed By: #### P TT, PT #### [facility] [address] [place] [address] Dr. Oh Trotter Neutrophils/100 WBC (Bld) 62.7 % Normal 43.0-75.0 [facility] Comment on above: Performed By: #### P TT, PT #### [facility] [address] [place] [address] Dr. Oh Trotter Platelet mean volume (Bld) [Entitic vol] 10.3 fL Normal 9.5-13.5 [facility] Comment on above: Performed By: #### P TT, PT #### [facility] [address] [place] [address] Dr. Oh Trotter PLT 225 103/ul Normal 150-450 [facility] Comment on above: Performed By: #### P TT, PT #### [facility] [address] [place] [address] Dr. Oh Trotter RBC 5.58 106/ul Normal 4.70-6.10 [facility] Comment on above: Performed By: #### P TT, PT #### [facility] [address] [place] [address] Dr. Oh Trotter WBC 7.3 103/ul Normal 4.0-11.0 [facility] Comment on above: Performed By: #### P TT, PT #### [facility] [address] [place] [address] Dr. Oh Trotter D-DIMERon 10-16-2021 D-DIMER <0.19 Normal <=0.59 [facility] Comment on above: Performed By: #### P TT, PT #### [facility] [address] [place] [address] Dr. Oh Trotter D-DIMER COMMENTS SEE BELOW Normal [facility] Comment on above: Result Comment: Incr eases in D-Dimer concentration observed with thromboembolic events can be variable due to localization, size, and age of the thrombus. Therefore, a thromboembolic event cannot be diagnosed with certainty on the basis of the reference range. D-Dimers may also be elevated for a variety of disorders including: advanced age, , coronary disease, cancer, liver disease, infection, inflammation, hematoma, DIC, trauma, post-surgery, diabetes, thrombolytic or anticoagulant therapy, stress, and generalized hospitalization. Performed By: #### P TT, PT #### [facility] [address] [place] [address] Dr. Oh Trotter LIPASEon 10-16-2021 Lipase [Catalytic activity/Vol] 127.0 U/L Normal 73.0-393.0 [facility] Comment on above: Performed By: #### L IPA, CMP, HSTROPN #### [facility] [address] [place] [address] Dr. Oh Trotter PROF 14(COMP METB)on 022 Albumin [Mass/Vol] 4.0 g/dL Normal 3.4-5.0 [facility] Comment on above: Performed By: #### L IPA, CMP, HSTROPN #### [facility] [address] [place] [address] Dr. Oh Trotter Albumin/Globulin [Mass ratio] 0.9 {ratio} Normal [facility] Comment on above: Performed By: #### L IPA, CMP, HSTROPN #### [facility] [address] [place] [address] Dr. Oh Trotter ALP [Catalytic activity/Vol] 73 U/L Normal 46-116 [facility] Comment on above: Performed By: #### L IPA, CMP, HSTROPN #### [facility] [address] [place] [address] Dr. Oh Trotter ALT [Catalytic activity/Vol] 45 U/L Normal 16-63 [facility] Comment on above: Performed By: #### L IPA, CMP, HSTROPN #### [facility] [address] [place] [address] Dr. Oh Trotter Anion gap [Moles/Vol] 15.4 mmol/L Normal [facility] Comment on above: Performed By: #### L IPA, CMP, HSTROPN #### [facility] [address] [place] [address] Dr. Oh Trotter AST [Catalytic activity/Vol] 25 U/L Normal 15-37 [facility] Comment on above: Performed By: #### L IPA, CMP, HSTROPN #### [facility] [address] [place] [address] Dr. Oh Trotter Bilirubin [Mass/Vol] 0.9 mg/dL Normal 0.2-1.0 [facility] Comment on above: Performed By: #### L IPA, CMP, HSTROPN #### [facility] [address] [place] [address] Dr. Oh Trotter Calcium [Mass/Vol] 9.3 mg/dL Normal 8.5-10.1 [facility] Comment on above: Performed By: #### L IPA, CMP, HSTROPN #### [facility] [address] [place] [address] Dr. Oh Trotter Chloride [Moles/Vol] 103 mmol/L Normal 98-107 [facility] Comment on above: Performed By: #### L IPA, CMP, HSTROPN #### [facility] [address] [place] [address] Dr. Oh Trotter CO2 [Moles/Vol] 20.4 mmol/L Critically low 21.0-32.0 [facility] Comment on above: Performed By: #### L IPA, CMP, HSTROPN #### [facility] [address] [address] [address] Oh Trotter Creatinine [Mass/Vol] 1.17 mg/dL Normal 0.70-1.30 [facility] Comment on above: Performed By: #### L IPA, CMP, HSTROPN #### [facility] [address] [address] [address] Oh Trotter EGFR-AF BOLIVIAN >60 Normal >=60 [facility] Comment on above: Performed By: #### L IPA, CMP, HSTROPN #### [facility] [address] [address] [address] Oh Trotter EGFR-NON AF BOLIVIAN >60 Normal >=60 [facility] Comment on above: Performed By: #### L IPA, CMP, HSTROPN #### [facility] [address] [place] [address] Dr. Oh Trotter Globulin (S) [Mass/Vol] 4.6 g/dL Normal [facility] Comment on above: Performed By: #### L IPA, CMP, HSTROPN #### [facility] [address] [address] [address] Oh Trotter Glucose [Mass/Vol] 127 mg/dL Critically high 74-106 [facility] Comment on above: Performed By: #### L IPA, CMP, HSTROPN #### [facility] [address] [address] [address] Oh Trotter Potassium [Moles/Vol] 3.8 mmol/L Normal 3.5-5.1 [facility] Comment on above: Performed By: #### L IPA, CMP, HSTROPN #### [facility] [address] [address] [address] Oh Trotter Protein [Mass/Vol] 8.6 g/dL Critically high 6.4-8.2 [facility] Comment on above: Performed By: #### L IPA, CMP, HSTROPN #### [facility] [address] [address] [address] Oh Trotter Sodium [Moles/Vol] 135 mmol/L Critically low 136-145 [facility] Comment on above: Performed By: #### L IPA, CMP, HSTROPN #### [facility] [address] [address] [address] Oh Trotter Urea nitrogen [Mass/Vol] 12.0 mg/dL Normal 7.0-18.0 [facility] Comment on above: Performed By: #### L IPA, CMP, HSTROPN #### [facility] [address] [address] [address] Oh Trotter Urea nitrogen/Creatinine [Mass ratio] 10.3 mg/mg Normal [facility] Comment on above: Performed By: #### L IPA, CMP, HSTROPN #### [facility] [address] [address] [address] Oh Trotter XR CHEST 1 Von 10-16-2021 XR CHEST 1 V EXAM: XR CHEST 1 V a t 1220 hours HISTORY: CHEST PAIN, UNSPECIFIED for 2 days. COMPARISON: 09/15/2021 TECHNIQUE: AP upright portable chest x-ray FINDINGS: The heart is not enlarged and the vasculature is not distended. No acute infiltrate, effusion or pneumothorax is identified. The osseous structures are grossly intact. IMPRESSION: No acute infiltrate or evidence of cardiac decompensation. The overall appearance of the chest is unchanged. Electronically authenticated by: GALDINO ARROYO Date: 2021-10-16 13:09 Normal [facility] BNPon 09-15-2021 Natriuretic peptide B (Bld) [Mass/Vol] 9.0 pg/mL Normal <=450.0 [facility] Comment on above: Performed By: #### H STROPN, TSH, BNP, CMP #### [facility] [address] [address] [address] Oh Trotter CBC AUTO DIFFon 09-15-2021 BASO # 0.0 103/ul Normal 0.0-0.1 [facility] Comment on above: Performed By: #### L IPA, CMP, HSTROPN #### [facility] [address] [address] [address] Oh Trotter Basophils/100 WBC (Bld) 0.1 % Critically low 0.2-2.0 [facility] Comment on above: Performed By: #### L IPA, CMP, HSTROPN #### [facility] [address] [place] [address] Dr. Oh Trotter EO # 0.1 103/ul Normal 0.0-0.7 [facility] Comment on above: Performed By: #### L IPA, CMP, HSTROPN #### [facility] [address] [place] [address] Dr. Oh Trotter Eosinophils/100 WBC (Bld) 0.6 % Critically low 0.9-7.0 [facility] Comment on above: Performed By: #### L IPA, CMP, HSTROPN #### [facility] [address] [place] [address] Dr. Oh Trotter Erythrocyte distribution width (RBC) [Ratio] 12.5 % Normal 11.0-15.0 [facility] Comment on above: Performed By: #### L IPA, CMP, HSTROPN #### [facility] [address] [place] [address] Dr. Oh Trotter Hematocrit (Bld) [Volume fraction] 48.3 % Normal 42.0-54.0 [facility] Comment on above: Performed By: #### L IPA, CMP, HSTROPN #### [facility] [address] [place] [address] Dr. Oh Trotter Hemoglobin (Bld) [Mass/Vol] 16.7 g/dL Normal 14.0-18.0 [facility] Comment on above: Performed By: #### L IPA, CMP, HSTROPN #### [facility] [address] [place] [address] Dr. Oh Trotter IG # 0.01 10e3/ul Normal 0.00-0.03 [facility] Comment on above: Performed By: #### L IPA, CMP, HSTROPN #### [facility] [address] [place] [address] Dr. Oh Trotter IG % 0.1 % Normal 0.0-0.5 [facility] Comment on above: Performed By: #### L IPA, CMP, HSTROPN #### [facility] [address] [place] [address] Dr. Oh Trotter LYMPH # 3.5 103/ul Normal 1.2-3.8 [facility] Comment on above: Performed By: #### L IPA, CMP, HSTROPN #### [facility] [address] [place] [address] Dr. Oh Trotter Lymphocytes/100 WBC (Bld) 38.8 % Normal 20.5-60.0 [facility] Comment on above: Performed By: #### L IPA, CMP, HSTROPN #### [facility] [address] [place] [address] Dr. Oh Trotter MANUAL DIFF REQ NO Normal [facility] Comment on above: Performed By: #### L IPA, CMP, HSTROPN #### [facility] [address] [place] [address] Dr. Oh Trotter MCH (RBC) [Entitic mass] 29.3 pg Normal 25.9-34.0 [facility] Comment on above: Performed By: #### L IPA, CMP, HSTROPN #### [facility] [address] [place] [address] Dr. Oh Trotter MCHC (RBC) [Mass/Vol] 34.6 g/dL Normal 29.9-35.2 [facility] Comment on above: Performed By: #### L IPA, CMP, HSTROPN #### [facility] [address] [place] [address] Dr. Oh Trotter MCV (RBC) [Entitic vol] 84.9 fL Normal 80.0-94.0 [facility] Comment on above: Performed By: #### L IPA, CMP, HSTROPN #### [facility] [address] [place] [address] Dr. Oh Trotter MONO # 0.5 103/ul Normal 0.3-0.8 [facility] Comment on above: Performed By: #### L IPA, CMP, HSTROPN #### [facility] [address] [address] [address] Oh Trotter Monocytes/100 WBC (Bld) 5.4 % Normal 1.7-12.0 [facility] Comment on above: Performed By: #### L IPA, CMP, HSTROPN #### [facility] [address] [place] [address] Dr. Oh Trotter NEUT # 4.9 103/ul Normal 1.4-6.5 [facility] Comment on above: Performed By: #### L IPA, CMP, HSTROPN #### [facility] [address] [place] [address] Dr. Oh Trotter Neutrophils/100 WBC (Bld) 55.0 % Normal 43.0-75.0 [facility] Comment on above: Performed By: #### L IPA, CMP, HSTROPN #### [facility] [address] [place] [address] Dr. Oh Trotter Platelet mean volume (Bld) [Entitic vol] 9.7 fL Normal 9.5-13.5 [facility] Comment on above: Performed By: #### L IPA, CMP, HSTROPN #### [facility] [address] [place] [address] Dr. Oh Trotter PLT 227 103/ul Normal 150-450 [facility] Comment on above: Performed By: #### L IPA, CMP, HSTROPN #### [facility] [address] [place] [address] Dr. Oh Trotter RBC 5.69 106/ul Normal 4.70-6.10 [facility] Comment on above: Performed By: #### L IPA, CMP, HSTROPN #### [facility] [address] [place] [address] Dr. Oh Trotter WBC 8.9 103/ul Normal 4.0-11.0 [facility] Comment on above: Performed By: #### L IPA, CMP, HSTROPN #### [facility] [address] [place] [address] Dr. Oh Trotter D-DIMERon 09-15-2021 D-DIMER 0.19 mg/L FEU Normal <=0.59 [facility] Comment on above: Performed By: #### L IPA, CMP, HSTROPN #### [facility] [address] [address] [address] Oh Trotter D-DIMER COMMENTS SEE BELOW Normal [facility] Comment on above: Result Comment: Incr eases in D-Dimer concentration observed with thromboembolic events can be variable due to localization, size, and age of the thrombus. Therefore, a thromboembolic event cannot be diagnosed with certainty on the basis of the reference range. D-Dimers may also be elevated for a variety of disorders including: advanced age, , coronary disease, cancer, liver disease, infection, inflammation, hematoma, DIC, trauma, post-surgery, diabetes, thrombolytic or anticoagulant therapy, stress, and generalized hospitalization. Performed By: #### L IPA, CMP, HSTROPN #### [facility] [address] [place] [address] Dr. Oh Trotter PROF 14(COMP METB)on 022 Albumin [Mass/Vol] 3.9 g/dL Normal 3.4-5.0 [facility] Comment on above: Performed By: #### H STROPN, TSH, BNP, CMP #### [facility] [address] [place] [address] Dr. Oh Trotter Albumin/Globulin [Mass ratio] 0.8 {ratio} Normal [facility] Comment on above: Performed By: #### H STROPN, TSH, BNP, CMP #### [facility] [address] [address] [address] Oh Trotter ALP [Catalytic activity/Vol] 73 U/L Normal 46-116 [facility] Comment on above: Performed By: #### H STROPN, TSH, BNP, CMP #### [facility] [address] [place] [address] Dr. Oh Trotter ALT [Catalytic activity/Vol] 48 U/L Normal 16-63 [facility] Comment on above: Performed By: #### H STROPN, TSH, BNP, CMP #### [facility] [address] [address] [address] Oh Trotter Anion gap [Moles/Vol] 14.9 mmol/L Normal [facility] Comment on above: Performed By: #### H STROPN, TSH, BNP, CMP #### [facility] [address] [address] [address] Oh Trotter AST [Catalytic activity/Vol] 22 U/L Normal 15-37 [facility] Comment on above: Performed By: #### H STROPN, TSH, BNP, CMP #### [facility] [address] [address] [address] Oh Trotter Bilirubin [Mass/Vol] 0.4 mg/dL Normal 0.2-1.0 [facility] Comment on above: Performed By: #### H STROPN, TSH, BNP, CMP #### [facility] [address] [place] [address] Dr. Oh Trotter Calcium [Mass/Vol] 9.2 mg/dL Normal 8.5-10.1 [facility] Comment on above: Performed By: #### H STROPN, TSH, BNP, CMP #### [facility] [address] [place] [address] Dr. Oh Trotter Chloride [Moles/Vol] 102 mmol/L Normal 98-107 [facility] Comment on above: Performed By: #### H STROPN, TSH, BNP, CMP #### [facility] [address] [place] [address] Dr. Oh Trotter CO2 [Moles/Vol] 23.7 mmol/L Normal 21.0-32.0 [facility] Comment on above: Performed By: #### H STROPN, TSH, BNP, CMP #### [facility] [address] [place] [address] Dr. Oh Trotter Creatinine [Mass/Vol] 1.14 mg/dL Normal 0.70-1.30 [facility] Comment on above: Performed By: #### H STROPN, TSH, BNP, CMP #### [facility] [address] [place] [address] Dr. Oh Trotter EGFR-AF BOLIVIAN >60 Normal >=60 [facility] Comment on above: Performed By: #### H STROPN, TSH, BNP, CMP #### [facility] [address] [address] [address] Oh Trotter EGFR-NON AF BOLIVIAN >60 Normal >=60 [facility] Comment on above: Performed By: #### H STROPN, TSH, BNP, CMP #### [facility] [address] [address] [address] Oh Trotter Globulin (S) [Mass/Vol] 4.7 g/dL Normal [facility] Comment on above: Performed By: #### H STROPN, TSH, BNP, CMP #### [facility] [address] [address] [address] Oh Trotter Glucose [Mass/Vol] 120 mg/dL Critically high 74-106 [facility] Comment on above: Performed By: #### H STROPN, TSH, BNP, CMP #### [facility] [address] [address] [address] Oh Trotter Potassium [Moles/Vol] 3.6 mmol/L Normal 3.5-5.1 [facility] Comment on above: Performed By: #### H STROPN, TSH, BNP, CMP #### [facility] [address] [address] [address] Oh Trotter Protein [Mass/Vol] 8.6 g/dL Critically high 6.4-8.2 [facility] Comment on above: Performed By: #### H STROPN, TSH, BNP, CMP #### [facility] [address] [address] [address] Oh Trotter Sodium [Moles/Vol] 137 mmol/L Normal 136-145 [facility] Comment on above: Performed By: #### H STROPN, TSH, BNP, CMP #### [facility] [address] [place] [address] Dr. Oh Trotter Urea nitrogen [Mass/Vol] 12.0 mg/dL Normal 7.0-18.0 [facility] Comment on above: Performed By: #### H STROPN, TSH, BNP, CMP #### [facility] [address] [address] [address] Oh Trotter Urea nitrogen/Creatinine [Mass ratio] 10.5 mg/mg Normal [facility] Comment on above: Performed By: #### H STROPN, TSH, BNP, CMP #### [facility] [address] [place] [address] Dr. Oh Trotter PROTIMEon 09-15-2021 INR Coag (PPP) [Relative time] 0.94 {INR} Normal [facility] Comment on above: Performed By: #### L IPA, CMP, HSTROPN #### [facility] [address] [place] [address] Dr. Oh Trotter INR GUIDELINES SEE BELOW Normal [facility] Comment on above: Result Comment: ADITHYA RED INR: 2.0 - 3.0 CONDITIONS NOT LISTED BELOW 2.5 - 3.5 FOR PROSTHETIC HEART VALVE REPLACEMENT 2.5 - 3.5 RECURRENT THROMBOSIS Performed By: #### L IPA, CMP, HSTROPN #### [facility] [address] [place] [address] Dr. Oh Trotter PT Coag (PPP) [Time] 10.2 s Normal 9.0-11.6 [facility] Comment on above: Performed By: #### L IPA, CMP, HSTROPN #### [facility] [address] [place] [address] Dr. Oh Trotter PTTon 09-15-2021 aPTT Coag (Bld) [Time] 26.6 s Normal 22.3-36.2 [facility] Comment on above: Performed By: #### L IPA, CMP, HSTROPN #### [facility] [address] [place] [address] Dr. Oh Trotter TROPONIN, HIGH SENSITIVITYon 09-15-2021 HSTROP 3.4 pg/mL Critically low 4.0-76.1 [facility] Comment on above: Result Comment: CUT- OFF POINTS HAVE BEEN ESTABLISHED BASED ON THE FOURTH UNIVERSAL DEFINITIONS OF MYOCARDIAL INFARCTION. THE UPPER REFERENCE LIMIT (URL) OF TROPONIN, DEFINED THE 99TH PERCENTILE OF cTnI DISTRIBUTION IN A REFERENCE POPULATION, HAS BEEN CONFIRMED THE DECISION THRESHOLD FOR VA DIAGNOSIS. Performed By: #### P TT, PT #### [facility] [address] [address] [address] Oh Trotter TSHon 09-15-2021 TSH 1.085 uIU/mL Normal 0.358-3.740 [facility] Comment on above: Performed By: #### H STROPN, TSH, BNP, CMP #### [facility] [address] [address] [address] Oh Trotter TSH RANGE SEE BELOW Normal [facility] Comment on above: Result Comment: <0.3 4 UIU/ml HYPERTHYROID 0.34-5.60 UIU/ml EUTHYROID >5.60 UIU/ml HYPOTHYROID Performed By: #### H STROPN, TSH, BNP, CMP #### [facility] [address] [address] [address] Oh Trotter XR ABD FLAT UP_PA German 09-15 XR ABD FLAT UP_PA CH EXAMINATION: XR ABD FLAT UP_PA CH HISTORY: Chest and abdominal pain COMPARISON: Chest x-ray 09/06/2021. TECHNIQUE: PA chest and 4 views of the abdomen FINDINGS: The lung parenchyma is free of consolidation or infiltrate. No pneumothorax or pleural effusion. The cardiac, mediastinal and hilar contours are normal. Surgical clips within the right upper quadrant. Air-filled loops of large and small bowel in a nonobstructed pattern. No free intraperitoneal air or intra-abdominal calcification. The visualized osseous structures exhibit no gross abnormality. IMPRESSION: No acute abnormality Electronically authenticated by: OTTO POLANCO Date: 2021-09-15 19:35 Normal [facility] XR CHEST 1 Von 09-07-2021 XR CHEST 1 V CXR HISTORY: Shortness of breath. COMPARISON: 03/11/2021 TECHNIQUE: 1 view chest submitted for review. FINDINGS: Lungs are hyper expanded. Bronchopulmonary markings are prominent. No pneumothorax. No effusion. The cardiac shadow measures within normal. Pulmonary vascularity is prominent. Osseous structures are within normal limits for age. IMPRESSION: Prominence of interstitiallung markings. Please correlate for viral etiology, fluid overload and/or chronic interstitial lung disease. Electronically authenticated by: ELIZABETH TURNER Date: 2021-09-06 23:38 Normal [facility] Encounters Encounter Date Encounter Type Care Provider Facility Start: 08-09-2022 End: 08-09-2022 ambulatory LEIGHANN SORIANO Facility:[facility] Start: 07-28-2022 End: 07-29-2022 ambulatory LEIGHANN CHRISTIE Facility:[facility] Start: 06-24-2022 End: 06-25-2022 ambulatory Lucy Rich VIVIANE Facility:CD:[id number] Start: 06-03-2022 End: 06-04-2022 ambulatory Lucy Rich VIVIANE Facility:[facility] Start: 05-23-2022 End: 05-23-2022 ambulatory LEIGHANNJAILYN SORIANO Facility:[facility] Start: 05-13-2022 ambulatory Lucy ANTHONYSebas Facility:[facility] Start: 05-11-2022 End: 05-11-2022 ambulatory LEIGHANN CHRISTIE Facility:[facility] Start: 05-02-2022 End: 05-02-2022 ambulatory LEIGHANN CHRISTIE Facility:[facility] Start: 03-30-2022 End: 03-30-2022 ambulatory MATTHIAS BUTLER . Facility:[facility] Start: 03-06-2022 End: 03-06-2022 ambulatory MATTHIAS BUTLER . Facility:[facility] Start: 11-01-2021 End: 11-02-2021 ambulatory TATA CAMERON Facility:[facility] Start: 10-16-2021 End: 10-16-2021 ambulatory MARZENA CORRALES . Facility:[facility] Start: 09-15-2021 End: 09-15-[address] CARL BANG Facility:[facility] Start: 09-11-2021 End: 09-11-2021 ambulatory LUCY OVALLE Facility:[facility] Start: 09-07-2021 End: 09-07-[address] SUKUMAR NAIR Facility:[facility] Payers Date Payer Category Payer Unknown [id number] 2.16.8 [id number] 1987 Unknown [id number] 2.16.8 [id number] 1987 Unknown [id number] 2.16.84 [id number] 1987 Unknown [id number] 2.16.84 [id number] 1987 Unknown [id number] 2.16.84 [id number] 1987 Unknown [id number] 2.16.84 [id number] 1987 Unknown [id number] 2.16.84 [id number] 1987 Unknown [id number] 2.16.84 [id number] 1987 Unknown [id number] 2.16.84 [id number] 1987 Unknown [id number] 2.16.84 [id number] 1987 Unknown [id number] 2.16.84 [id number] 1987 Unknown [id number] 2.16.84 [id number] 1987 Unknown [id number] 2.16.84 [id number] 1987 Unknown [id number] 2.16.84 [id number] 1987 Unknown [id number] 2.16.84 [id number] 1959 Unknown [id number] Clinical Note 06-24-2022 Note Date & Type Note Facility 06-24-2022 Note OPERATIVE NOTE OPERATION DATE: 06/24/2022 PREOPERATIVE DIAGNOSIS: Low abdominal and rectal pain, as well as rectal bleeding. POSTOPERATIVE DIAGNOSIS: Prominent rectal veins. PROCEDURE: Colonoscopy to cecum. SURGEON: Lucy Bey M.D. ANESTHESIA: Monitored anesthesia care. ESTIMATED BLOOD LOSS: Zero INDICATIONS AND CONSENT: Patient is a 36-year-old male with history of irritable bowel syndrome, has had intermittent rectal bleeding as well as lower abdominal pain and rectal pain. Indications, risks, benefits, alternatives of proceeding with colonoscopy were explained extensively to the patient, including the risks of bleeding, colon perforation or anesthetic complications. All of his questions were answered. Informed consent was obtained. PROCEDURE: Patient brought to the operating room, placed in the left lateral decubitus position. Monitored anesthesia care was provided. Rectal exam was performed which showed no masses or blood. The scope was inserted into the anal canal. Under direct visualization was advanced. With the aid of abdominal compression, it was advanced to the cecum where cecal marking were clearly identified. Upon withdrawal of the scope, mucosal surfaces were carefully examined. There were no mass lesions or polyps. No inflammatory changes or ulcerations. No significant diverticulosis. The scope was retroflexed in the anal canal. There were prominent rectal veins. No old or new bleeding. No significant hemorrhoidal disease. Scope was then withdrawn. Patient tolerated procedure well, was sent to recovery room in good condition. CC: Leighann Soriano CNP [facility] Clinical Note 06-03-2022 Note Date & Type Note Facility 06-03-2022 Note Chief Complaint consultation for abdominal pain, rectal bleeding and diarrhea HPI Staff 36 year old male presents on consultation from Dr. Vail for abdominal pain, rectal bleeding and diarrhea. Reports over the past one month, he has been experiencing intermittent crampy lower abdominal pain, nausea, frequent loose stools, urgency to defecate with one episode of fecal incontinence, rectal pain and bleeding with bowel movements. Denies vomiting. No weight loss. Last colonoscopy completed 20 years ago for complaint of frequent bowel movements; patient reports he was diagnosed with IBS. No known family history of colon cancer or IBD. History of Present Illness 36 yo male with h/o Metnq-Geoqonvgn-Gvgtz syndrome, migraines, GERD, AIDAN, depression, IBS; referred for intermittent rectal bleeding, on outside of stool, in toilet bowel and with wiping; also intermittent mid and supra-pubic abd pain, no triggers, sharp, ache, no radiation; no relationship to bms. patient had colonoscopy 15 years ago, dx with IBS; abdominal operations significant for cholecystectomy; no asa or NSAID use, no SBE prophylaxis; smokes daily; no fmhx of GI malignancy or IBD. Review of Systems PHQ Score Initial Depression Screen Score: 0 ROS - Provider Constitutional: no fever, no sweats, no weight loss. Eyes: no glasses, no blurred vision, no visual loss. ENMT: no dentures, no hoarseness, no swallowing difficulties, no hearing loss, no ear infection(s), no nose bleeds. Cardiovascular: normal blood pressure, no chest pain, regular heartbeat, no heart murmur. Respiratory: no shortness of breath, no cough, no asthma, no wheezing. Gastrointestinal: no nausea, no vomiting, no diarrhea, no constipation, yes blood in stool, yes change in bowel habits, yes abdominal pain, no hepatitis. Genitourinary: no kidney stones, no urine infection, no dysuria. Musculoskeletal: no pain, no weakness. Skin: no changing moles, no rash, no skin lumps. Neurologic: no seizures, no epilepsy, no headache. Psychiatric: no emotional or psychiatric problem. Heme/Lymph: no bleeding problems, no anemia, no blood clots, no transfusions. Allergy/Immunologic: no swollen lymph nodes/glands, no IV drug abuse. Other: Additional ROS info: Except as noted in the above Review of Systems and in the History of Present Illness, all other systems have been reviewed and are negative or noncontributory. Physical Exam Vitals & Measurements HR: 76(Peripheral) RR: 16 BP: 132/86 HT: 75 in HT: 190.5 cm WT: 130 kg WT: 286 lb BMI: 35.82 HEENT: normal conjunctiva, sclera clear, no scleral icterus, EOM intact, PERRLA, oral mucosa moist without lesions. Neck: trachea midline, no mass, symmetric, no thyromegaly or nodules, no adenopathy Respiratory: lungs CTA, respirations non labored. Cardiovascular: regular rate and rhythm, no murmur, no pedal edema or varicosities. Gastrointestinal: obese, hyperactive bs, soft, non distended, mild tenderness, periumbilical area, and suprapubic, no peritoneal signs; no masses, no palpable hernias, diastasis recti no, no hepatosplenomegaly; normal bs Lymphatic: no cervical adenopathy, no supraclavicular adenopathy Musculoskeletal: normal gait, digits and nails without infection, nodes, cyanosis, clubbing. Skin: no rashes, no lesions, no ulcers, no subcutaneous nodules, induration. Psychiatric/Neuro: oriented to time, place, person, judgement normal, affect appropriate for age, insight intact, no focal deficits. Tests: review of old records completed, Discussed surgical options, risks, and possible complications with patient. Assessment/Plan 1. Change in bowel habits (R19.4: Change in bowel habit) plan colonoscopy under anesthesia for further evaluation, informed consent obtained. 2. Rectal bleeding (K62.5: Hemorrhage of anus and rectum) see # 1 3. Pain, abdominal, periumbilical (R10.33: Periumbilical pain) see # 1 4. Abdominal pain, suprapubic (R10.2: Pelvic and perineal pain) see # 1 Follow-up No qualifying data available Problem List/Past Medical History Ongoing Abdominal pain, suprapubic BMI 35.0-35.9,adult BRBPR (bright red blood per rectum) Change in bowel habits Depression Generalized anxiety disorder GERD (gastroesophageal reflux disease) History of shingles IBS (irritable bowel syndrome) Migraines Pain, abdominal, periumbilical Panic disorder without agoraphobia with mild panic attacks Rectal bleeding Smoker Czkki-Efiomfzge-Unpqm syndrome Historical Atrial fibrillation Epididymitis Nocturia Scrotal pain Procedure/Surgical History Cardiac ablation using fluoroscopy guidance (2002), Cholecystectomy. Medications Albuterol (Eqv-ProAir HFA), 2 puff(s), Inhalation, q4hr, PRN gabapentin 300 mg Cap, 300 mg= 1 cap(s), Oral, Daily hydrOXYzine hydrochloride 25 mg Tab, 25 mg= 1 tab(s), Oral, BID, PRN Levsin 0.125 mg SL Tab, 0.125 mg= 1 tab(s), Oral, QID, PRN omeprazole 40 mg Cap-DR, 40 mg= 1 cap(s), Oral, Daily (more content not included)... [facility] Comment on above: Result Comment: Elec tronically Signed By: VIVIANE SIMS, Lucy Yañez\Date and Time Signed: 06/03/22 14:01 EST Summary Purpose Family History No Family History Records FoundNo Family History Records Found Advance Directives No Advanced Directives Records FoundNo Advanced Directives Records Found Additional Source Comments (unrecognized sect ion and content) No Status Records FoundNo Status Records Found INFORMATION SOURCE (unrecogn ized section and content) DATE CREATED AUTHOR 07/02/2022 [facility] DATE CREATED AUTHOR AUTHOR'S ORGANIZ ATION 08/11/2022 [facility] FOR RECORDS PERTAINING TO PATIENTS WHO ARE OR HAVE BEEN ENROLLED IN A CHEMICAL DEPENDENCY/SUBSTANCEABUSE PROGRAM, SOME INFORMATION MAY BE OMITTED. This clinical summary was aggregated from multiple sources. Caution should be exercised in using it in the provision of clinical care. This summary normalizes information from multiple sources, and as a consequence, information in this document may materially change the coding, format and clinical context of patient data. In addition, data may be omitted in some cases. CLINICAL DECISIONS SHOULD BE BASED ON THE PRIMARY CLINICAL RECORDS. [email or web address]. provides no warranty or guarantee of the accuracy or completeness of information in this document.
--- NOTE | 2023-05-17 10:56 | ED.GENADUL1 ---
HPI - General Adult General Chief complaint: Extremity Injury, Lower Stated complaint: BOTTOM PAIN Time Seen by Provider: 05/17/23 10:43 Source: patient Mode of arrival: walk-in History of Present Illness HPI narrative: anal pain Patient presents complaining that the anus is hurting - started yesterday. He denies any instrumentation or bleeding. Nothing taken for pain at home. Said that it hurts at rest - worse with BMs or wiping. N prior history of hemorrhoids or rectal/anal problems. No abdominal pain, urinary symptoms, fever or chills. no sores or drainage to the area. Related Data Home Medications Medication Instructions Recorded Confirmed divalproex 250 mg tablet,extended 250 mg PO DAILY 04/11/23 05/17/23 release 24 hr fluoxetine 10 mg capsule 30 mg PO DAILY 04/11/23 05/17/23 gabapentin 100 mg capsule 100 mg PO TID 04/11/23 05/17/23 hydroxyzine HCl 25 mg tablet 50 mg PO BID PRN anxiety 04/11/23 05/17/23 olanzapine 10 mg tablet 10 mg PO DAILY 04/11/23 05/17/23 divalproex 500 mg tablet,extended 500 mg PO QPM 05/17/23 05/17/23 release 24 hr Previous Rx's Medication Instructions Recorded nabumetone 750 mg tablet 750 mg PO BID PRN pain #14 tabs 05/17/23 Allergies Allergy/AdvReac Type Severity Reaction Status Date / Time erythromycin base Allergy Intermediate Rash Verified 04/11/23 13:59 Penicillins Allergy Intermediate Rash Verified 04/11/23 13:59 PFSH PFSH Social History Smoking status: Current every day smoker Exam Narrative Exam Narrative: Nurses notes and vital signs reviewed and patient is not hypoxic. afebrile General: Anxious and dramatic. Skin: Warm, dry, no pallor noted. No rash. Cardiovascular: Normal peripheral perfusion. Respiratory: No accessory muscle use or respiratory distress. GI: Abdomen is soft, non-distended. Normal bowel sounds. Rectal: proctored exam with nurse Viridiana Armenta present. Patient has pain throughout the anus. No fissures. There are two areas of external hemorrhoid noted but they are not inflamed, thrombosed or bleeding. No masses detected. No abscess or other skin changes noted. Neurological: A&O x4. No truncal ataxia. Moves all extremities. Sensation intact. Psychiatric: Cooperative and interactive. Normal mood and affect. Constitutional Vital Signs, click to edit/add: Last Vital Signs Temp 97.6 F 05/17/23 10:37 Pulse 100 H 05/17/23 10:37 Resp 18 05/17/23 10:37 BP 140/107 H 05/17/23 10:37 Pulse Ox 98 05/17/23 10:37 O2 Del Method Room Air 05/17/23 10:37 Course Vital Signs Vital signs: Vital Signs Temperature 97.6 F 05/17/23 10:37 Pulse Rate 100 H 05/17/23 10:37 Respiratory Rate 18 05/17/23 10:37 Blood Pressure 140/107 H 05/17/23 10:37 Pulse Oximetry 98 05/17/23 10:37 Oxygen Delivery Method Room Air 05/17/23 10:37 Temperature 97.6 F 05/17/23 10:37 Pulse Rate 100 H 05/17/23 10:37 Respiratory Rate 18 05/17/23 10:37 Blood Pressure 140/107 H 05/17/23 10:37 Pulse Oximetry 98 05/17/23 10:37 Oxygen Delivery Method Room Air 05/17/23 10:37 Medical Decision Making MDM Narrative Medical decision making narrative: Patient instructed to apply preparation H to the area and I prescribed relafen for him to take for pain. He has previously been evaluated by Dr Bey so I referred him to Dr Bey to discuss removal of the hemorrhoids and further evaluation if rectal/anal pain persists. Discharge Plan Discharge Chief Complaint: Extremity Injury, Lower Clinical Impression: Anal or rectal pain, Hemorrhoid Patient Disposition: Home, Self-Care Time of Disposition Decision: 11:01 Prescriptions / Home Meds: New nabumetone 750 mg tablet 750 mg PO BID PRN (Reason: pain) Qty: 14 0RF No Action divalproex 250 mg tablet extended release 24 hr 250 mg PO DAILY fluoxetine 10 mg capsule 30 mg PO DAILY gabapentin 100 mg capsule 100 mg PO TID hydroxyzine HCl 25 mg tablet 50 mg PO BID PRN (Reason: anxiety) olanzapine 10 mg tablet 10 mg PO DAILY divalproex 500 mg tablet extended release 24 hr 500 mg PO QPM Instructions: Hemorrhoids (ED), Rectal Pain (ED) Stand Alone Forms: Portal Instructions Referrals: CHRISTIE,MERNA [Primary Care Provider] - 1 week Hector Bey MD [Physician] - As soon as possible
== END 2023-05-17 11:12 | disposition home or self-care (01) ==
PROVIDERS: Emergency Provider Emergency Medicine; PCP Nurse Practitioner Family
DX: K64.4 Residual hemorrhoidal skin tags (principal); K62.89 Other specified diseases of anus and rectum; Z79.899 Other long term (current) drug therapy; F17.210 Nicotine dependence, cigarettes, uncomplicated
CPT/HCPCS: 99283

== ENCOUNTER 2023-06-26 12:18 | Emergency (ER) | payer OTHER, SELFPAY ==
[2023-06-26 12:19] VITALS: BP 142/97; PULSE 88; RESP 20; TEMP 36.4; O2SAT 98; BMI 44.9
--- NOTE | 2023-06-26 12:22 | ED.BACK1 ---
HPI - Back Pain/Injury General Chief Complaint: Back Pain/Injury Stated Complaint: FLANK PAIN Time Seen by Provider: 06/26/23 12:22 History of Present Illness HPI Narrative: 37-year-old male here to the emergency room with severe right flank pain. He said this for nearly 2 days. He has no history of injury or trauma. He has not seen any blood in his urine. The pain is in the right flank, quite intense and radiates to his right lower quadrant. He is seen on arrival here in the ER. Vital signs are noted Related Data Home Medications Medication Instructions Recorded Confirmed divalproex 250 mg tablet,extended 250 mg PO DAILY 04/11/23 06/26/23 release 24 hr fluoxetine 10 mg capsule 30 mg PO DAILY 04/11/23 06/26/23 gabapentin 100 mg capsule 100 mg PO TID 04/11/23 06/26/23 hydroxyzine HCl 25 mg tablet 50 mg PO BID PRN anxiety 04/11/23 05/17/23 olanzapine 10 mg tablet 10 mg PO DAILY 04/11/23 06/26/23 Previous Rx's Medication Instructions Recorded nabumetone 750 mg tablet 750 mg PO BID PRN pain #14 tabs 05/17/23 Allergies Allergy/AdvReac Type Severity Reaction Status Date / Time erythromycin base Allergy Intermediate Rash Verified 04/11/23 13:59 Penicillins Allergy Intermediate Rash Verified 04/11/23 13:59 PFSH PFSH Social History Smoking status: Current every day smoker Exam Narrative Exam Narrative: Awake alert mild to moderate discomfort moves about freely with no hesitation or grimacing. His vital signs are stable. There is no respiratory distress he denies any shortness of breath or chest discomfort at all. He reaches around and points to the lower lumbar area as the area of most discomfort Jean Claude sign is negative on both sides. His lungs are clear with no wheeze rales or rhonchi there is no pericardial or pleural rub. Heart sounds are normal with no murmur. His abdomen although somewhat obese he has no abdominal discomfort or pain. His extremities showed no phlebitis edema or erythema. Neurological examination moderately anxious consistent with previous diagnosis. MDM - Back Pain/Injury MDM Narrative Medical decision making narrative: Patient's most likely clinical presentation is ureterolithiasis however his CT scan is completely normal for renal or ureteral stones. In fact there is no acute findings on the CT scan at all. His white blood cell count is normal his urinalysis shows no evidence of hematuria pyuria or infection. He been treated before he went to CAT scan his symptoms are greatly relieved. The only CT finding that may account for his symptoms is some degenerative changes in the low back. I went back and completed a neurological examination he has brisk reflexes at patella and Achilles and his extensor houses longus function is normal. There is no muscle or motor weakness and there is no radiculopathy. Discharge Plan Discharge Chief Complaint: Back Pain/Injury Clinical Impression: Strain of lumbar region Patient Disposition: Home, Self-Care Time of Disposition Decision: 13:47 Prescriptions / Home Meds: No Action divalproex 250 mg tablet extended release 24 hr 250 mg PO DAILY fluoxetine 10 mg capsule 30 mg PO DAILY gabapentin 100 mg capsule 100 mg PO TID hydroxyzine HCl 25 mg tablet 50 mg PO BID PRN (Reason: anxiety) olanzapine 10 mg tablet 10 mg PO DAILY nabumetone 750 mg tablet 750 mg PO BID PRN (Reason: pain) Qty: 14 0RF Additional Instructions: May use heating pad for up to 30 minutes each session. Anaprox for several days, follow-up with primary care doctor Stand Alone Forms: Portal Instructions Referrals: MERNA SORIANO [Primary Care Provider] - 1 week
--- NOTE | 2023-06-26 12:24 | CT_ITS ---
The [address] [address] Patient Name: CHUCK PACKER MRN: [id number] date: 1985 Sex: M Assigned Patient Location: ER Current Patient Location: .[facility] Accession/Order Number: [id number] Exam Date: 06/26/2023 12:41 Report Date: 06/26/2023 14:37 At the request of: TJ VILLA Procedure: CT abdomen pelvis wo con EXAM: CT abdomen pelvis wo con 06/26/2023 COMPARISON STUDY: CT of the abdomen and pelvis without contrast 10/28/2020. HISTORY: Kidney stone. TECHNIQUE: 3 mm sections were obtained from the lung bases through the pubic symphysis without the use of contrast. Coronal and sagittal reconstructed images were obtained. Dose reduction techniques were achieved by using automated exposure control and/or adjustment of mA and/or kV according to patient size and/or use of iterative reconstruction technique. CT ABDOMEN: Several of the images are marred by respiratory motion. Heart size is normal. Lung bases are clear. Patient appears obese. Left hepatic lobe is elongated draping over the superior pole of the spleen. Background diffuse hepatic steatosis is noted. Gallbladder is surgically absent. Liver, spleen, pancreas, adrenals, and kidneys demonstrate no acute abnormality. A small inferior pole laterally located left renal cyst is noted measuring 7 mm. The aorta demonstrates normal caliber. Bowel pattern is nonobstructive. CT PELVIS: Urinary bladder is collapsed without acute abnormality or stone. The prostate and seminal vesicles appear unremarkable. Negative for appendicitis, bowel obstruction, diverticulitis, or acute inflammatory bowel disease. Lower lumbar degenerative changes most apparent at L5-S1. No acute osseous abnormality. Multilevel thoracic and lumbar Schmorl's node formation noted incidentally. Overall the spinal pedicles appear somewhat short contributing to developmental canal stenosis. CT/CT abdomen pelvis wo con IMPRESSION: 1. Mild background diffuse hepatic steatosis. Prior cholecystectomy. 2. No acute intra-abdominal or pelvic process. 3. Negative for urolithiasis, appendicitis, or diverticulitis. Electronically authenticated by: ANGIE CHING Date: 06/26/2023 14:37
--- OUTSIDE RECORDS SUMMARY | 2023-06-26 12:26 | XMS_ITS | CCD ---
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 Name Role Phone Lucy BEY Attending Unavailable [...] (1 source) Erythromycin; Translations: [erythromycin] Drug Allergy [facility] Repository (2 sources) Penicillins; Translations: [penicillins] Propensity to adverse reactions (disorder) 4 [facility] Repository (1 source) Erythromycin Drug Allergy 4 [facility] Repository Problems Active Problems Problem Classification Problem [...] Onset: 06-25-2022 Other aftercare (1 source) Other fdc (current) drug therapy; Translations: [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 Oh Trotter Basophils/100 WBC (Bld) 0.2 % Normal 0.2-2.0 [facility] Comment on above: Performed By: #### P TT, PT #### [facility] [address] [place] [address] Dr. Oh Trotter EO # 0.0 103/ul Normal 0.0-0.7 [facility] Comment on above: Performed By: #### P TT, PT #### [facility] [address] [place] [address] Dr. Oh Trotter Eosinophils/100 WBC (Bld) 0.6 % Critically low 0.9-7.0 [facility] Comment on above: Performed By: #### P TT, PT #### [facility] [address] [place] [address] Dr. Oh Trotter Erythrocyte distribution width (RBC) [Ratio] 12.2 % Normal 11.0-15.0 [facility] Comment on above: Performed By: #### P TT, PT #### [facility] [address] [place] [address] Dr. Oh Trotter Hematocrit (Bld) [Volume fraction] 44.1 % Normal 42.0-54.0 [facility] Comment on above: Performed By: #### P TT, PT #### [facility] [address] [place] [address] Dr. Oh Trotter Hemoglobin (Bld) [Mass/Vol] 15.8 g/dL Normal 14.0-18.0 [facility] Comment on above: Performed By: #### P TT, PT #### [facility] [address] [place] [address] Dr. Oh Trotter IG # 0.02 10e3/ul Normal 0.00-0.03 [facility] Comment on above: Performed By: #### P TT, PT #### [facility] [address] [place] [address] Dr. Oh Trotter IG % 0.3 % Normal 0.0-0.5 [facility] Comment on above: Performed By: #### P TT, PT #### [facility] [address] [place] [address] Dr. Oh Trotter LYMPH # 1.9 103/ul Normal 1.2-3.8 [facility] Comment on above: Performed By: #### P TT, PT #### [facility] [address] [place] [address] Dr. Oh Trotter Lymphocytes/100 WBC (Bld) 29.7 % Normal 20.5-60.0 [facility] Comment on above: Performed By: #### P TT, PT #### [facility] [address] [place] [address] Dr. Oh Trotter MANUAL DIFF REQ NO Normal [facility] Comment on above: Performed By: #### P TT, PT #### [facility] [address] [place] [address] Dr. Oh Trotter MCH (RBC) [Entitic mass] 29.8 pg Normal 25.9-34.0 [facility] Comment on above: Performed By: #### P TT, PT #### [facility] [address] [place] [address] Dr. Oh Trotter MCHC (RBC) [Mass/Vol] 35.8 g/dL Critically high 29.9-35.2 [facility] Comment on above: Performed By: #### P TT, PT #### [facility] [address] [place] [address] Dr. Oh Trotter MCV (RBC) [Entitic vol] 83.2 fL Normal 80.0-94.0 [facility] Comment on above: Performed By: #### P TT, PT #### [facility] [address] [place] [address] Dr. Oh Trotter MONO # 0.6 103/ul Normal 0.3-0.8 [facility] Comment on above: Performed By: #### P TT, PT #### [facility] [address] [place] [address] Dr. Oh Trotter Monocytes/100 WBC (Bld) 8.6 % Normal 1.7-12.0 [facility] Comment on above: Performed By: #### P TT, PT #### [facility] [address] [place] [address] Dr. Oh Trotter NEUT # 3.9 103/ul Normal 1.4-6.5 [facility] Comment on above: Performed By: #### P TT, PT #### [facility] [address] [place] [address] Dr. Oh Trotter Neutrophils/100 WBC (Bld) 60.6 % Normal 43.0-75.0 [facility] Comment on above: Performed By: #### P TT, PT #### [facility] [address] [place] [address] Dr. Oh Trotter Platelet mean volume (Bld) [Entitic vol] 9.5 fL Normal 9.5-13.5 [facility] Comment on above: Performed By: #### P TT, PT #### [facility] [address] [place] [address] Dr. Oh Trotter PLT 187 103/ul Normal 150-450 [facility] Comment on above: Performed By: #### P TT, PT #### [facility] [address] [place] [address] Dr. Oh Trotter RBC 5.30 106/ul Normal 4.70-6.10 [facility] Comment on above: Performed By: #### P TT, PT #### [facility] [address] [place] [address] Dr. hO Trotter WBC 6.4 103/ul Normal 4.0-11.0 [facility] Comment on above: Performed By: #### P TT, PT #### [facility] [address] [place] [address] Dr. Oh Trotter PROF 14(COMP METB)on 023 Albumin [Mass/Vol] 3.5 g/dL Normal 3.4-5.0 [facility] Comment on above: Performed By: #### L IPA, CMP, HSTROPN #### [facility] [address] [address] [address] Oh Trotter Albumin/Globulin [Mass ratio] 0.7 {ratio} Normal [facility] Comment on above: Performed By: #### L IPA, CMP, HSTROPN #### [facility] [address] [address] [address] Oh Trotter ALP [Catalytic activity/Vol] 85 U/L Normal 46-116 [facility] Comment on above: Performed By: #### L IPA, CMP, HSTROPN #### [facility] [address] [address] [address] Oh Trtoter ALT [Catalytic activity/Vol] 34 U/L Normal 16-63 [facility] Comment on above: Performed By: #### L IPA, CMP, HSTROPN #### [facility] [address] [address] [address] Oh Trotter Anion gap [Moles/Vol] 13.3 mmol/L Normal [facility] Comment on above: Performed By: #### L IPA, CMP, HSTROPN #### [facility] [address] [address] [address] Oh Trotter AST [Catalytic activity/Vol] 18 U/L Normal 15-37 [facility] Comment on above: Performed By: #### L IPA, CMP, HSTROPN #### [facility] [address] [address] [address] Oh Trotter Bilirubin [Mass/Vol] 0.4 mg/dL Normal 0.2-1.0 [facility] Comment on above: Performed By: #### L IPA, CMP, HSTROPN #### [facility] [address] [address] [address] Oh Trotter Calcium [Mass/Vol] 8.9 mg/dL Normal 8.5-10.1 [facility] Comment on above: Performed By: #### L IPA, CMP, HSTROPN #### [facility] [address] [address] [address] Oh Trotter Chloride [Moles/Vol] 105 mmol/L Normal 98-107 [facility] Comment on above: Performed By: #### L IPA, CMP, HSTROPN #### [facility] [address] [address] [address] Oh Trotter CO2 [Moles/Vol] 24.7 mmol/L Normal 21.0-32.0 [facility] Comment on above: Performed By: #### L IPA, CMP, HSTROPN #### [facility] [address] [address] [address] Oh Trotter Creatinine [Mass/Vol] 0.88 mg/dL Normal 0.70-1.30 [facility] Comment on above: Performed By: #### L IPA, CMP, HSTROPN #### [facility] [address] [address] [address] Oh Trotter EGFR-AF [place]ER >60 Normal >=60 [facility] Comment on above: Performed By: #### L IPA, CMP, HSTROPN #### [facility] [address] [address] [address] Oh Trotter EGFR-NON AF [place]ER >60 Normal >=60 [facility] Comment on above: Performed By: #### L IPA, CMP, HSTROPN #### [facility] [address] [place] [address] Dr. Oh Trotter Globulin (S) [Mass/Vol] 4.8 g/dL Normal [facility] Comment on above: Performed By: #### L IPA, CMP, HSTROPN #### [facility] [address] [address] [address] Oh Trotter Glucose [Mass/Vol] 113 mg/dL Critically high 74-106 [facility] Comment on above: Performed By: #### L IPA, CMP, HSTROPN #### [facility] [address] [place] [address] Dr. Oh Trotter Potassium [Moles/Vol] 4.0 mmol/L Normal 3.5-5.1 [facility] Comment on above: Performed By: #### L IPA, CMP, HSTROPN #### [facility] [address] [address] [address] Oh Trotter Protein [Mass/Vol] 8.3 g/dL Critically high 6.4-8.2 [facility] Comment on above: Performed By: #### L IPA, CMP, HSTROPN #### [facility] [address] [address] [address] Oh Trotter Sodium [Moles/Vol] 139 mmol/L Normal 136-145 [facility] Comment on above: Performed By: #### L IPA, CMP, HSTROPN #### [facility] [address] [address] [address] Oh Trotter Urea nitrogen [Mass/Vol] 15.0 mg/dL Normal 7.0-18.0 [facility] Comment on above: Performed By: #### L IPA, CMP, HSTROPN #### [facility] [address] [address] [address] Oh Trotter Urea nitrogen/Creatinine [Mass ratio] 17.0 mg/mg Normal [facility] Comment on above: Performed By: #### L IPA, CMP, HSTROPN #### [facility] [address] [address] [address] Oh Trotter XR ABD FLAT UP_PA [...] VERA SETHI Date: 2022-07-28 22:14 Normal [facility] CBC AUTO DIFFon 07-28-2022 BASO # 0.0 103/ul Normal 0.0-0.1 [facility] Comment on above: Performed By: #### L IPA, CMP, HSTROPN #### [facility] [address] [place] [address] Dr. Oh Trotter Basophils/100 WBC (Bld) 0.2 % Normal 0.2-2.0 [facility] Comment on above: Performed By: #### L IPA, CMP, HSTROPN #### [facility] [address] [place] [address] Dr. Oh Trotter EO # 0.1 103/ul Normal 0.0-0.7 [facility] Comment on above: Performed By: #### L IPA, CMP, HSTROPN #### [facility] [address] [place] [address] Dr. Oh Trotter Eosinophils/100 WBC (Bld) 0.9 % Normal 0.9-7.0 [facility] Comment on above: Performed By: #### L IPA, CMP, HSTROPN #### [facility] [address] [place] [address] Dr. Oh Trotter Erythrocyte distribution width (RBC) [Ratio] 12.4 % Normal 11.0-15.0 [facility] Comment on above: Performed By: #### L IPA, CMP, HSTROPN #### [facility] [address] [place] [address] Dr. Oh Trotter Hematocrit (Bld) [Volume fraction] 44.8 % Normal 42.0-54.0 [facility] Comment on above: Performed By: #### L IPA, CMP, HSTROPN #### [facility] [address] [place] [address] Dr. Oh Trotter Hemoglobin (Bld) [Mass/Vol] 15.7 g/dL Normal 14.0-18.0 [facility] Comment on above: Performed By: #### L IPA, CMP, HSTROPN #### [facility] [address] [address] [address] Oh Trotter IG # 0.02 10e3/ul Normal 0.00-0.03 [facility] Comment on above: Performed By: #### L IPA, CMP, HSTROPN #### [facility] [address] [address] [address] Oh Trotter IG % 0.2 % Normal 0.0-0.5 [facility] Comment on above: Performed By: #### L IPA, CMP, HSTROPN #### [facility] [address] [place] [address] Dr. Oh Trotter LYMPH # 3.2 103/ul Normal 1.2-3.8 [facility] Comment on above: Performed By: #### L IPA, CMP, HSTROPN #### [facility] [address] [place] [address] Dr. Oh Trotter Lymphocytes/100 WBC (Bld) 39.2 % Normal 20.5-60.0 [facility] Comment on above: Performed By: #### L IPA, CMP, HSTROPN #### [facility] [address] [address] [address] Oh Trotter MANUAL DIFF REQ NO Normal [facility] Comment on above: Performed By: #### L IPA, CMP, HSTROPN #### [facility] [address] [place] [address] Dr. Oh Trotter MCH (RBC) [Entitic mass] 29.3 pg Normal 25.9-34.0 [facility] Comment on above: Performed By: #### L IPA, CMP, HSTROPN #### [facility] [address] [place] [address] Dr. Oh Trotter MCHC (RBC) [Mass/Vol] 35.0 g/dL Normal 29.9-35.2 [facility] Comment on above: Performed By: #### L IPA, CMP, HSTROPN #### [facility] [address] [place] [address] Dr. Oh Trotter MCV (RBC) [Entitic vol] 83.7 fL Normal 80.0-94.0 [facility] Comment on above: Performed By: #### L IPA, CMP, HSTROPN #### [facility] [address] [place] [address] Dr. Oh Trotter MONO # 0.6 103/ul Normal 0.3-0.8 [facility] Comment on above: Performed By: #### L IPA, CMP, HSTROPN #### [facility] [address] [place] [address] Dr. Oh Trotter Monocytes/100 WBC (Bld) 7.5 % Normal 1.7-12.0 [facility] Comment on above: Performed By: #### L IPA, CMP, HSTROPN #### [facility] [address] [place] [address] Dr. Oh Trotter NEUT # 4.3 103/ul Normal 1.4-6.5 [facility] Comment on above: Performed By: #### L IPA, CMP, HSTROPN #### [facility] [address] [place] [address] Dr. Oh Trotter Neutrophils/100 WBC (Bld) 52.0 % Normal 43.0-75.0 [facility] Comment on above: Performed By: #### L IPA, CMP, HSTROPN #### [facility] [address] [place] [address] Dr. Oh Trotter Platelet mean volume (Bld) [Entitic vol] 9.8 fL Normal 9.5-13.5 [facility] Comment on above: Performed By: #### L IPA, CMP, HSTROPN #### [facility] [address] [place] [address] Dr. Oh Trotter PLT 210 103/ul Normal 150-450 [facility] Comment on above: Performed By: #### L IPA, CMP, HSTROPN #### [facility] [address] [place] [address] Dr. Oh Trotter RBC 5.35 106/ul Normal 4.70-6.10 [facility] Comment on above: Performed By: #### L IPA, CMP, HSTROPN #### [facility] [address] [address] [address] Oh Trotter WBC 8.2 103/ul Normal 4.0-11.0 [facility] Comment on above: Performed By: #### L IPA, CMP, HSTROPN #### [facility] [address] [address] [address] Oh Trotter OCC BLD IMMUNOASSAYon 2022 OCCULT BLOOD Positive Abnormal NEGATIVE [facility] Comment on above: Performed By: #### P TT, PT #### [facility] [address] [place] [address] Dr. Oh Trotter PROF 14(COMP METB)on 023 Albumin [Mass/Vol] 3.9 g/dL Normal 3.4-5.0 [facility] Comment on above: Performed By: #### L IPA, CMP, HSTROPN #### [facility] [address] [place] [address] Dr. Oh Trotter Albumin/Globulin [Mass ratio] 0.9 {ratio} Normal [facility] Comment on above: Performed By: #### L IPA, CMP, HSTROPN #### [facility] [address] [place] [address] Dr. Oh Trotter ALP [Catalytic activity/Vol] 98 U/L Normal 46-116 [facility] Comment on above: Performed By: #### L IPA, CMP, HSTROPN #### [facility] [address] [address] [address] Oh Trotter ALT [Catalytic activity/Vol] 47 U/L Normal 16-63 [facility] Comment on above: Performed By: #### L IPA, CMP, HSTROPN #### [facility] [address] [place] [address] Dr. Oh Trotter Anion gap [Moles/Vol] 13.8 mmol/L Normal [facility] Comment on above: Performed By: #### L IPA, CMP, HSTROPN #### [facility] [address] [place] [address] Dr. Oh Trotter AST [Catalytic activity/Vol] 18 U/L Normal 15-37 [facility] Comment on above: Performed By: #### L IPA, CMP, HSTROPN #### [facility] [address] [place] [address] Dr. Oh Trotter Bilirubin [Mass/Vol] 0.3 mg/dL Normal 0.2-1.0 [facility] Comment on above: Performed By: #### L IPA, CMP, HSTROPN #### [facility] [address] [place] [address] Dr. Oh Trotter Calcium [Mass/Vol] 8.8 mg/dL Normal 8.5-10.1 [facility] Comment on above: Performed By: #### L IPA, CMP, HSTROPN #### [facility] [address] [place] [address] Dr. Oh Trotter Chloride [Moles/Vol] 105 mmol/L Normal 98-107 [facility] Comment on above: Performed By: #### L IPA, CMP, HSTROPN #### [facility] [address] [place] [address] Dr. Oh Trotter CO2 [Moles/Vol] 25.2 mmol/L Normal 21.0-32.0 [facility] Comment on above: Performed By: #### L IPA, CMP, HSTROPN #### [facility] [address] [place] [address] Dr. Oh Trotter Creatinine [Mass/Vol] 1.02 mg/dL Normal 0.70-1.30 [facility] Comment on above: Performed By: #### L IPA, CMP, HSTROPN #### [facility] [address] [place] [address] Dr. Oh Trotter EGFR-AF [place]ER >60 Normal >=60 [facility] Comment on above: Performed By: #### L IPA, CMP, HSTROPN #### [facility] [address] [place] [address] Dr. Oh Trotter EGFR-NON AF [place] >60 Normal >=60 [facility] Comment on above: Performed By: #### L IPA, CMP, HSTROPN #### [facility] [address] [address] [address] Oh Trotter Globulin (S) [Mass/Vol] 4.2 g/dL Normal [facility] Comment on above: Performed By: #### L IPA, CMP, HSTROPN #### [facility] [address] [address] [address] Oh Trotter Glucose [Mass/Vol] 104 mg/dL Normal 74-106 [facility] Comment on above: Performed By: #### L IPA, CMP, HSTROPN #### [facility] [address] [address] [address] Oh Trotter Potassium [Moles/Vol] 4.0 mmol/L Normal 3.5-5.1 [facility] Comment on above: Performed By: #### L IPA, CMP, HSTROPN #### [facility] [address] [address] [address] Oh Trotter Protein [Mass/Vol] 8.1 g/dL Normal 6.4-8.2 [facility] Comment on above: Performed By: #### L IPA, CMP, HSTROPN #### [facility] [address] [address] [address] Oh Trotter Sodium [Moles/Vol] 140 mmol/L Normal 136-145 [facility] Comment on above: Performed By: #### L IPA, CMP, HSTROPN #### [facility] [address] [address] [address] Oh Trotter Urea nitrogen [Mass/Vol] 16.0 mg/dL Normal 7.0-18.0 [facility] Comment on above: Performed By: #### L IPA, CMP, HSTROPN #### [facility] [address] [address] [address] Oh Trotter Urea nitrogen/Creatinine [Mass ratio] 15.7 mg/mg Normal [facility] Comment on above: Performed By: #### L IPA, CMP, HSTROPN #### [facility] [address] [address] [address] Oh Trotter PROTIMEon 07-28-2022 INR Coag (PPP) [Relative time] {INR} Normal [facility] Comment on above: Performed By: #### P TT, PT #### [facility] [address] [place] [address] Dr. Oh Trotter INR GUIDELINES SEE BELOW Normal [facility] Comment on above: Result Comment: ADITHYA RED INR: 2.0 - 3.0 CONDITIONS NOT LISTED BELOW 2.5 - 3.5 FOR PROSTHETIC HEART VALVE REPLACEMENT 2.5 - 3.5 RECURRENT THROMBOSIS Performed By: #### P TT, PT #### [facility] [address] [place] [address] Dr. Oh Trotter PT Coag (PPP) [Time] 9.8 s Normal 9.0-11.6 [facility] Comment on above: Performed By: #### P TT, PT #### [facility] [address] [place] [address] Dr. Oh Trotter PTTon 07-28-2022 aPTT Coag (Bld) [Time] 26.6 s Normal 22.3-36.2 [facility] Comment on above: Performed By: #### P TT, PT #### [facility] [address] [place] [address] Dr. Oh Trotter Outside Colonoscopyon 2022 Outside Colonoscopy [id number] 0CD:127 Normal [facility] Pre-Certification Formon Pre-Certification Form [id number]. 00CD:127 Normal [facility] Consent for Procedure/Surger yon 06-05-2022 Consent for Procedure/Surgery [id number] 0CD:127 Normal [facility] Facesheeton 06-04-2022 Facesheet [id number]#1.0 0CD:127 [facility] Ambulatory Visit Summaryon 0 06-03-2022 Ambulatory Visit [...] with mild panic attacks Rectal bleeding Smoker Envnv-Atthmmtja-Ynllr syndrome Historical - Any problem that you are no longer receiving treatment for. Atrial fibrillation Epididymitis Nocturia Scrotal pain Normal [facility] Physician Referralon 023 Physician Referral [id number] 0CD:127 Normal [facility]-19 PCR [facility]on SARS-CoV-2 (COVID-19) RNA SHAE+probe Ql (Unsp spec) Not detected Normal NOT DETECTED [facility] Comment on above: Result Comment: This test is not yet approved or cleared by the [place] FDA. When there are no FDA-approved or cleared tests available, and other criteria are met, FDA can make tests available under an emergency access mechanism called an Emergency Use Authorization (EUA). The EUA for this test is supported by the Founder And Chief Executive Officer of Health and Human Service's (HHS's) declaration [...] Performed By: #### P TT, PT #### [facility] [address] [address] [address] Oh Trotter INFL[facility]ENZA [facility] Normal [facility] Comment on above: Result Comment: Nega tive for Flu A protein angiten. Infection due to Flu A cannot be ruled out. Flu A angiten in the sample may be below the detection limit of the test. Performed By: #### L IPA, CMP, HSTROPN #### [facility] [address] [address] [address] Oh [facility]rot[facility] Normal [facility] Comment on above: Result Comment: Nega tive for Flu B protein antigen. Infection due to Flu B cannot be ruled out. Flu B antigen in the sample may be below the detection limit of the test. Performed By: #### L IPA, CMP, HSTROPN #### [facility] [address] [place] [address] Dr. Oh Trotter INFLUENZA A AG Negative Normal NEGATIVE SEE COMMENT [facility] Comment on above: Performed By: #### L IPA, CMP, HSTROPN #### [facility] [address] [place] [address] Dr. Oh Trotter INFLUENZA B AG Negative Normal NEGATIVE SEE COMMENT [facility] Comment on above: Performed By: #### L IPA, CMP, HSTROPN #### [facility] [address] [place] [address] Dr. Oh Trotter CBC AUTO DIFFon 03-06-2022 BASO # 0.0 103/ul Normal 0.0-0.1 [facility] Comment on above: Performed By: #### P TT, PT #### [facility] [address] [place] [address] Dr. Oh Trotter Basophils/100 WBC (Bld) 0.2 % Normal 0.2-2.0 [facility] Comment on above: Performed By: #### P TT, PT #### [facility] [address] [place] [address] Dr. Oh Trotter EO # 0.0 103/ul Normal 0.0-0.7 [facility] Comment on above: Performed By: #### P TT, PT #### [facility] [address] [place] [address] Dr. Oh Trotter Eosinophils/100 WBC (Bld) 0.4 % Critically low 0.9-7.0 [facility] Comment on above: Performed By: #### P TT, PT #### [facility] [address] [place] [address] Dr. Oh Trotter Erythrocyte distribution width (RBC) [Ratio] 12.2 % Normal 11.0-15.0 [facility] Comment on above: Performed By: #### P TT, PT #### [facility] [address] [place] [address] Dr. Oh Trotter Hematocrit (Bld) [Volume fraction] 45.7 % Normal 42.0-54.0 [facility] Comment on above: Performed By: #### P TT, PT #### [facility] [address] [place] [address] Dr. Oh Trotter Hemoglobin (Bld) [Mass/Vol] 16.0 g/dL Normal 14.0-18.0 [facility] Comment on above: Performed By: #### P TT, PT #### [facility] [address] [place] [address] Dr. Oh Trotter IG # 0.04 10e3/ul Critically high 0.00-0.03 [facility] Comment on above: Performed By: #### P TT, PT #### [facility] [address] [place] [address] Dr. Oh Trotter IG % 0.4 % Normal 0.0-0.5 [facility] Comment on above: Performed By: #### P TT, PT #### [facility] [address] [place] [address] Dr. Oh Trotter LYMPH # 2.8 103/ul Normal 1.2-3.8 [facility] Comment on above: Performed By: #### P TT, PT #### [facility] [address] [place] [address] Dr. Oh Trotter Lymphocytes/100 WBC (Bld) 29.5 % Normal 20.5-60.0 [facility] Comment on above: Performed By: #### P TT, PT #### [facility] [address] [place] [address] Dr. Oh Trotter MANUAL DIFF REQ NO Normal [facility] Comment on above: Performed By: #### P TT, PT #### [facility] [address] [place] [address] Dr. Oh Trotter MCH (RBC) [Entitic mass] 29.7 pg Normal 25.9-34.0 [facility] Comment on above: Performed By: #### P TT, PT #### [facility] [address] [address] [address] Oh Trotter MCHC (RBC) [Mass/Vol] 35.0 g/dL Normal 29.9-35.2 [facility] Comment on above: Performed By: #### P TT, PT #### [facility] [address] [place] [address] Dr. Oh Trotter MCV (RBC) [Entitic vol] 84.8 fL Normal 80.0-94.0 [facility] Comment on above: Performed By: #### P TT, PT #### [facility] [address] [place] [address] Dr. Oh Trotter MONO # 0.5 103/ul Normal 0.3-0.8 [facility] Comment on above: Performed By: #### P TT, PT #### [facility] [address] [place] [address] Dr. Oh Trotter Monocytes/100 WBC (Bld) 5.2 % Normal 1.7-12.0 [facility] Comment on above: Performed By: #### P TT, PT #### [facility] [address] [place] [address] Dr. Oh Trotter NEUT # 6.2 103/ul Normal 1.4-6.5 [facility] Comment on above: Performed By: #### P TT, PT #### [facility] [address] [place] [address] Dr. Oh Trotter Neutrophils/100 WBC (Bld) 64.3 % Normal 43.0-75.0 [facility] Comment on above: Performed By: #### P TT, PT #### [facility] [address] [place] [address] Dr. Oh Trotter Platelet mean volume (Bld) [Entitic vol] 9.9 fL Normal 9.5-13.5 [facility] Comment on above: Performed By: #### P TT, PT #### [facility] [address] [place] [address] Dr. Oh Trotter PLT 196 103/ul Normal 150-450 [facility] Comment on above: Performed By: #### P TT, PT #### [facility] [address] [place] [address] Dr. Oh Trotter RBC 5.39 106/ul Normal 4.70-6.10 [facility] Comment on above: Performed By: #### P TT, PT #### [facility] [address] [place] [address] Dr. Oh Trotter WBC 9.6 103/ul Normal 4.0-11.0 [facility] Comment on above: Performed By: #### P TT, PT #### [facility] [address] [place] [address] Dr. Oh Trotter D-DIMERon 03-06-2022 D-DIMER <0.19 Normal <=0.59 [facility] Comment on above: Performed By: #### P TT, PT #### [facility] [address] [place] [address] Dr. Oh Trotter D-DIMER COMMENTS SEE BELOW Normal [facility] Comment on above: Result Comment: Incr [...] Performed By: #### P TT, PT #### [facility] [address] [place] [address] Dr. Oh Trotter ER URINE PROFILEon 2 Bilirubin Ql (U) Negative Normal NEGATIVE [facility] Comment on above: Performed By: #### MATHIEU STONERRO #### [facility] [address] [place] [address] Dr. Oh Trotter Clarity (U) CLEAR Normal CLEAR [facility] Comment on above: Performed By: #### E MATHIEU GLOVERRO #### [facility] [address] [place] [address] Dr. Oh Trotter Color (U) LT. YELLOW Normal YELLOW [facility] Comment on above: Performed By: #### Marcelo GLOVER UMICRO #### [facility] [address] [place] [address] Dr. Oh OLIVA A micrscopic examination will be performed if indicated. Normal [facility] Comment on above: Performed By: #### Marcelo GLOVER UMICRO #### [facility] [address] [place] [address] Dr. Oh Trotter Glucose Ql (U) Negative Normal NEGATIVE [facility] Comment on above: Performed By: #### Marcelo GLOVER UMICRO #### [facility] [address] [place] [address] Dr. Oh Trotter Hemoglobin Ql (U) SMALL Abnormal NEGATIVE [facility] Comment on above: Performed By: #### Marcelo GLOVER UMICRO #### [facility] [address] [place] [address] Dr. Oh Trotter Ketones Ql (U) Negative Normal NEGATIVE [facility] Comment on above: Performed By: #### Marcelo GLOVER UMICRO #### [facility] [address] [place] [address] Dr. Oh Trotter LEUKOCYTES Negative Normal NEGATIVE [facility] Comment on above: Performed By: #### Marcelo GLOVER UMICRO #### [facility] [address] [place] [address] Dr. Oh Trotter Nitrite Ql (U) Negative Normal NEGATIVE [facility] Comment on above: Performed By: #### Marcelo GLOVER UMICRO #### [facility] [address] [place] [address] Dr. Oh Trotter pH (U) 6.0 [pH] Normal 5-9 [facility] Comment on above: Performed By: #### Marcelo GLOVER UMICRO #### [facility] [address] [place] [address] Dr. Oh Trotter SPEC GRAVITY 1.025 Normal 1.005-<=1.025 [facility] Comment on above: Performed By: #### MATHIEU STONERRO #### [facility] [address] [place] [address] Dr. Oh Trotter UA PROTEIN Negative Normal NEGATIVE/ TRACE [facility] Comment on above: Performed By: #### E MATHIEU GLOVERRO #### [facility] [address] [place] [address] Dr. Oh Trotter UR MICRO IND INDICATED Normal [facility] Comment on above: Performed By: #### MATHIEU STONERRO #### [facility] [address] [place] [address] Dr. Oh Trotter Urobilinogen Qn (U) 0.2 {Federico'U}/dL Normal 0.2 - 1. 0 [facility] Comment on above: Performed By: #### OSVALDO STONER #### [facility] [address] [place] [address] Dr. Oh Trotter LIPASEon 03-06-2022 Lipase [Catalytic activity/Vol] 125.0 U/L Normal 73.0-393.0 [facility] Comment on above: Performed By: #### L IPA, CMP, HSTROPN #### [facility] [address] [place] [address] Dr. Oh Trotter PROF 14(COMP METB)on 022 Albumin [Mass/Vol] 3.8 g/dL Normal 3.4-5.0 [facility] Comment on above: Performed By: #### L IPA, CMP, HSTROPN #### [facility] [address] [place] [address] Dr. Oh Trotter Albumin/Globulin [Mass ratio] 0.8 {ratio} Normal [facility] Comment on above: Performed By: #### L IPA, CMP, HSTROPN #### [facility] [address] [place] [address] Dr. Oh Trotter ALP [Catalytic activity/Vol] 77 U/L Normal 46-116 [facility] Comment on above: Performed By: #### L IPA, CMP, HSTROPN #### [facility] [address] [place] [address] Dr. Oh Trotter ALT [Catalytic activity/Vol] 39 U/L Normal 16-63 [facility] Comment on above: Performed By: #### L IPA, CMP, HSTROPN #### [facility] [address] [address] [address] Oh Trotter Anion gap [Moles/Vol] 9.3 mmol/L Normal [facility] Comment on above: Performed By: #### L IPA, CMP, HSTROPN #### [facility] [address] [address] [address] Oh Trotter AST [Catalytic activity/Vol] 21 U/L Normal 15-37 [facility] Comment on above: Performed By: #### L IPA, CMP, HSTROPN #### [facility] [address] [address] [address] Oh Trotter Bilirubin [Mass/Vol] 0.4 mg/dL Normal 0.2-1.0 [facility] Comment on above: Performed By: #### L IPA, CMP, HSTROPN #### [facility] [address] [address] [address] Oh Trotter Calcium [Mass/Vol] 9.2 mg/dL Normal 8.5-10.1 [facility] Comment on above: Performed By: #### L IPA, CMP, HSTROPN #### [facility] [address] [address] [address] Oh Trotter Chloride [Moles/Vol] 102 mmol/L Normal 98-107 [facility] Comment on above: Performed By: #### L IPA, CMP, HSTROPN #### [facility] [address] [address] [address] Oh Trotter CO2 [Moles/Vol] 26.6 mmol/L Normal 21.0-32.0 [facility] Comment on above: Performed By: #### L IPA, CMP, HSTROPN #### [facility] [address] [address] [address] Oh Trotter Creatinine [Mass/Vol] 1.08 mg/dL Normal 0.70-1.30 [facility] Comment on above: Performed By: #### L IPA, CMP, HSTROPN #### [facility] [address] [address] [address] Oh Trotter EGFR-AF [place] >60 Normal >=60 [facility] Comment on above: Performed By: #### L IPA, CMP, HSTROPN #### [facility] [address] [address] [address] Oh Trotter EGFR-NON AF [place] >60 Normal >=60 [facility] Comment on above: Performed By: #### L IPA, CMP, HSTROPN #### [facility] [address] [place] [address] Dr. Oh Trotter Globulin (S) [Mass/Vol] 4.7 g/dL Normal [facility] Comment on above: Performed By: #### L IPA, CMP, HSTROPN #### [facility] [address] [place] [address] Dr. Oh Trotter Glucose [Mass/Vol] 103 mg/dL Normal 74-106 [facility] Comment on above: Performed By: #### L IPA, CMP, HSTROPN #### [facility] [address] [place] [address] Dr. Oh Trotter Potassium [Moles/Vol] 3.9 mmol/L Normal 3.5-5.1 [facility] Comment on above: Performed By: #### L IPA, CMP, HSTROPN #### [facility] [address] [address] [address] Oh Trotter Protein [Mass/Vol] 8.5 g/dL Critically high 6.4-8.[address] [facility] Comment on above: Performed By: #### L IPA, CMP, HSTROPN #### [facility] [address] [place] [address] Dr. Oh Trotter Sodium [Moles/Vol] 134 mmol/L Critically low 136-145 [facility] Comment on above: Performed By: #### L IPA, CMP, HSTROPN #### [facility] [address] [place] [address] Dr. Oh Trotter Urea nitrogen [Mass/Vol] 20.0 mg/dL Critically high 7.0-18.0 [facility] Comment on above: Performed By: #### L IPA, CMP, HSTROPN #### [facility] [address] [place] [address] Dr. Oh Trotter Urea nitrogen/Creatinine [Mass ratio] 18.5 mg/mg Normal [facility] Comment on above: Performed By: #### L IPA, CMP, HSTROPN #### [facility] [address] [place] [address] Dr. Oh Trotter PROTIMEon 03-06-2022 INR Coag (PPP) [Relative time] 1.00 {INR} Normal [facility] Comment on above: Performed By: #### P TT, PT #### [facility] [address] [place] [address] Dr. Oh Trotter INR GUIDELINES SEE BELOW Normal [facility] Comment on above: Result Comment: ADITHYA RED INR: 2.0 - 3.0 CONDITIONS NOT LISTED BELOW 2.5 - 3.5 FOR PROSTHETIC HEART VALVE REPLACEMENT 2.5 - 3.5 RECURRENT THROMBOSIS Performed By: #### P TT, PT #### [facility] [address] [place] [address] Dr. Oh Trotter PT Coag (PPP) [Time] 10.8 s Normal 9.0-11.6 [facility] Comment on above: Performed By: #### P TT, PT #### [facility] [address] [place] [address] Dr. Oh Trotter PTTon 03-06-2022 aPTT Coag (Bld) [Time] 27.9 s Normal 22.3-36.2 [facility] Comment on above: Performed By: #### P TT, PT #### [facility] [address] [place] [address] Dr. Oh Trotter TROPONIN, HIGH SENSITIVITYon 03-06-2022 HSTROP 7.9 pg/mL Normal 4.0-76.1 [facility] Comment on above: Result Comment: CUT- OFF POINTS HAVE BEEN ESTABLISHED BASED ON THE FOURTH UNIVERSAL DEFINITIONS OF MYOCARDIAL INFARCTION. THE UPPER REFERENCE LIMIT (URL) OF TROPONIN, DEFINED THE 99TH PERCENTILE OF cTnI DISTRIBUTION IN A REFERENCE POPULATION, HAS BEEN CONFIRMED THE DECISION THRESHOLD FOR DE DIAGNOSIS. Performed By: #### L IPA, CMP, HSTROPN #### [facility] [address] [place] [address] Dr. Oh Trotter URINE MICROSCOPIC ONLYon BACTERIA NONE SEEN Normal NONE SEEN [facility] Comment on above: Performed By: #### E RUR, UMICRO #### [facility] [address] [place] [address] Dr. Oh Trotter Bacteria identified Cx Nom (U) NOT INDICATED Normal [facility] Comment on above: Performed By: #### E RUR, UMICRO #### [facility] [address] [place] [address] Dr. Oh Trotter CAST NONE SEEN Normal NONE SEEN [facility] Comment on above: Performed By: #### E JUNER, UMICRO #### [facility] [address] [place] [address] Dr. hO Trotter Crystals LM Nom (Urine sed) NONE SEEN Normal NONE SEEN [facility] Comment on above: Performed By: #### E RUR, UMICRO #### [facility] [address] [place] [address] Dr. Oh Trotter Epithelial cells LM Ql (Urine sed) FEW Abnormal NONE SEEN /RARE [facility] Comment on above: Performed By: #### E RUR, UMICRO #### [facility] [address] [place] [address] Dr. Oh Trotter MUCOUS MODERATE Abnormal NONE SEEN [facility] Comment on above: Performed By: #### E ADALBERTO, UMICRO #### [facility] [address] [place] [address] Dr. Oh Trotter RBC 0-2 Normal 0-2 [facility] Comment on above: Performed By: #### E RUR, UMICRO #### [facility] [address] [place] [address] Dr. Oh Trotter WBC NONE SEEN Normal NONE SEEN [facility] Comment on above: Performed By: #### E RUR, AUBRIEICRO #### [facility] [address] [address] [address] Oh Trotter XR ABD FLAT UP_PA [...] LUCY JEWELL Date: 2022-03-06 15:55 Normal [facility] XR CSPINE 2_3 VIEWSon 2021 XR [...] LUCY JEWELL Date: 2022-03-06 15:54 Normal [facility] CBC AUTO DIFFon 11-02-2021 BASO # 0.0 103/ul Normal 0.0-0.1 [facility] Comment on above: Performed By: #### L IPA, CMP, HSTROPN #### [facility] [address] [address] [address] Oh Trotter Basophils/100 WBC (Bld) 0.2 % Normal 0.2-2.0 [facility] Comment on above: Performed By: #### L IPA, CMP, HSTROPN #### [facility] [address] [address] [address] Oh Trotter EO # 0.1 103/ul Normal 0.0-0.7 [facility] Comment on above: Performed By: #### L IPA, CMP, HSTROPN #### [facility] [address] [place] [address] Dr. Oh Trotter Eosinophils/100 WBC (Bld) 1.0 % Normal 0.9-7.0 [facility] Comment on above: Performed By: #### L IPA, CMP, HSTROPN #### [facility] [address] [address] [address] Oh Trotter Erythrocyte distribution width (RBC) [Ratio] 13.0 % Normal 11.0-15.0 [facility] Comment on above: Performed By: #### L IPA, CMP, HSTROPN #### [facility] [address] [place] [address] Dr. Oh Trotter Hematocrit (Bld) [Volume fraction] 46.6 % Normal 42.0-54.0 [facility] Comment on above: Performed By: #### L IPA, CMP, HSTROPN #### [facility] [address] [place] [address] Dr. Oh Trotter Hemoglobin (Bld) [Mass/Vol] 15.8 g/dL Normal 14.0-18.0 [facility] Comment on above: Performed By: #### L IPA, CMP, HSTROPN #### [facility] [address] [place] [address] Dr. Oh Trotter IG # 0.02 10e3/ul Normal 0.00-0.03 [facility] Comment on above: Performed By: #### L IPA, CMP, HSTROPN #### [facility] [address] [place] [address] Dr. Oh Trotter IG % 0.2 % Normal 0.0-0.5 [facility] Comment on above: Performed By: #### L IPA, CMP, HSTROPN #### [facility] [address] [place] [address] Dr. Oh Trotter LYMPH # 1.6 103/ul Normal 1.2-3.8 [facility] Comment on above: Performed By: #### L IPA, CMP, HSTROPN #### [facility] [address] [place] [address] Dr. Oh Trotter Lymphocytes/100 WBC (Bld) 15.3 % Critically low 20.5-60.0 [facility] Comment on above: Performed By: #### L IPA, CMP, HSTROPN #### [facility] [address] [place] [address] Dr. Oh Trotter MANUAL DIFF REQ NO Normal [facility] Comment on above: Performed By: #### L IPA, CMP, HSTROPN #### [facility] [address] [place] [address] Dr. Oh Trotter MCH (RBC) [Entitic mass] 30.1 pg Normal 25.9-34.0 [facility] Comment on above: Performed By: #### L IPA, CMP, HSTROPN #### [facility] [address] [place] [address] Dr. Oh Trotter MCHC (RBC) [Mass/Vol] 33.9 g/dL Normal 29.9-35.2 [facility] Comment on above: Performed By: #### L IPA, CMP, HSTROPN #### [facility] [address] [place] [address] Dr. Oh Trotter MCV (RBC) [Entitic vol] 88.8 fL Normal 80.0-94.0 [facility] Comment on above: Performed By: #### L IPA, CMP, HSTROPN #### [facility] [address] [place] [address] Dr. Oh Trotter MONO # 0.7 103/ul Normal 0.3-0.8 [facility] Comment on above: Performed By: #### L IPA, CMP, HSTROPN #### [facility] [address] [place] [address] Dr. Oh Trotter Monocytes/100 WBC (Bld) 6.8 % Normal 1.7-12.0 [facility] Comment on above: Performed By: #### L IPA, CMP, HSTROPN #### [facility] [address] [address] [address] Oh Trotter NEUT # 7.9 103/ul Critically high 1.4-6.5 [facility] Comment on above: Performed By: #### L IPA, CMP, HSTROPN #### [facility] [address] [place] [address] Dr. Oh Trotter Neutrophils/100 WBC (Bld) 76.5 % Critically high 43.0-75.0 [facility] Comment on above: Performed By: #### L IPA, CMP, HSTROPN #### [facility] [address] [place] [address] Dr. Oh Trotter Platelet mean volume (Bld) [Entitic vol] 9.5 fL Normal 9.5-13.5 [facility] Comment on above: Performed By: #### L IPA, CMP, HSTROPN #### [facility] [address] [place] [address] Dr. Oh Trotter PLT 191 103/ul Normal 150-450 [facility] Comment on above: Performed By: #### L IPA, CMP, HSTROPN #### [facility] [address] [place] [address] Dr. Oh Trotter RBC 5.25 106/ul Normal 4.70-6.10 [facility] Comment on above: Performed By: #### L IPA, CMP, HSTROPN #### [facility] [address] [place] [address] Dr. Oh Trotter WBC 10.4 103/ul Normal 4.0-11.0 [facility] Comment on above: Performed By: #### L IPA, CMP, HSTROPN #### [facility] [address] [place] [address] Dr. Oh Trotter PROF CHEM 8 (BAS METB)on Anion gap [Moles/Vol] 9.7 mmol/L Normal [facility] Comment on above: Performed By: #### L IPA, CMP, HSTROPN #### [facility] [address] [place] [address] Dr. Oh Trotter Calcium [Mass/Vol] 8.9 mg/dL Normal 8.5-10.1 [facility] Comment on above: Performed By: #### L IPA, CMP, HSTROPN #### [facility] [address] [address] [address] Oh Trotter Chloride [Moles/Vol] 102 mmol/L Normal 98-107 [facility] Comment on above: Performed By: #### L IPA, CMP, HSTROPN #### [facility] [address] [address] [address] Oh Trotter CO2 [Moles/Vol] 29.1 mmol/L Normal 21.0-32.0 [facility] Comment on above: Performed By: #### L IPA, CMP, HSTROPN #### [facility] [address] [address] [address] Oh Trotter Creatinine [Mass/Vol] 1.10 mg/dL Normal 0.70-1.30 [facility] Comment on above: Performed By: #### L IPA, CMP, HSTROPN #### [facility] [address] [address] [address] Oh Trotter EGFR-AF [place]ER >60 Normal >=60 [facility] Comment on above: Performed By: #### L IPA, CMP, HSTROPN #### [facility] [address] [address] [address] Oh Trotter EGFR-NON AF [place] >60 Normal >=60 [facility] Comment on above: Performed By: #### L IPA, CMP, HSTROPN #### [facility] [address] [address] [address] Oh Trotter Glucose [Mass/Vol] 114 mg/dL Critically high 74-[address] [facility] Comment on above: Performed By: #### L IPA, CMP, HSTROPN #### [facility] [address] [address] [address] Oh Trotter Potassium [Moles/Vol] 3.8 mmol/L Normal 3.5-5.1 [facility] Comment on above: Performed By: #### L IPA, CMP, HSTROPN #### [facility] [address] [address] [address] Oh Trotter Sodium [Moles/Vol] 137 mmol/L Normal 136-145 [facility] Comment on above: Performed By: #### L IPA, CMP, HSTROPN #### [facility] [address] [address] [address] Oh Trotter Urea nitrogen [Mass/Vol] 10.0 mg/dL Normal 7.0-18.0 [facility] Comment on above: Performed By: #### L IPA, CMP, HSTROPN #### [facility] [address] [place] [address] Dr. Oh Trotter Urea nitrogen/Creatinine [Mass ratio] 9.1 mg/mg Normal [facility] Comment on above: Performed By: #### L IPA, CMP, HSTROPN #### [facility] [address] [place] [address] Dr. Oh Trotter CARDIAC SUKUMAR ADMITon 022 CK [Catalytic activity/Vol] 97 U/L Normal 39-308 [facility] Comment on above: Performed By: #### L IPA, CMP, HSTROPN #### [facility] [address] [place] [address] Dr. Oh Trotter CK.MB [Mass/Vol] 0.75 ng/mL Normal <=3.60 [facility] Comment on above: Performed By: #### L IPA, CMP, HSTROPN #### [facility] [address] [place] [address] Dr. Oh Trotter HSTROP 4.4 pg/mL Normal 4.0-76.1 [facility] Comment on above: Result Comment: CUT- OFF POINTS HAVE BEEN ESTABLISHED BASED ON THE FOURTH UNIVERSAL DEFINITIONS OF MYOCARDIAL INFARCTION. THE UPPER REFERENCE LIMIT (URL) OF TROPONIN, DEFINED THE 99TH PERCENTILE OF cTnI DISTRIBUTION IN A REFERENCE POPULATION, HAS BEEN CONFIRMED THE DECISION THRESHOLD FOR DE DIAGNOSIS. Performed By: #### L IPA, CMP, HSTROPN #### [facility] [address] [place] [address] Dr. Oh Trotter CARON 54 ng/mL Normal 16-96 [facility] Comment on above: Performed By: #### L IPA, CMP, HSTROPN #### [facility] [address] [place] [address] Dr. Oh Trotter CBC AUTO DIFFon 10-16-2021 BASO # 0.0 103/ul Normal 0.0-0.1 [facility] Comment on above: Performed By: #### P TT, PT #### [facility] [address] [place] [address] Dr. Oh Trotter Basophils/100 WBC (Bld) 0.1 % Critically low 0.2-2.0 [facility] Comment on above: Performed By: #### P TT, PT #### [facility] [address] [place] [address] Dr. Oh Trotter EO # 0.0 103/ul Normal 0.0-0.7 [facility] Comment on above: Performed By: #### P TT, PT #### [facility] [address] [place] [address] Dr. Oh Trotter Eosinophils/100 WBC (Bld) 0.3 % Critically low 0.9-7.0 [facility] Comment on above: Performed By: #### P TT, PT #### [facility] [address] [place] [address] Dr. Oh Trotter Erythrocyte distribution width (RBC) [Ratio] 12.5 % Normal 11.0-15.0 [facility] Comment on above: Performed By: #### P TT, PT #### [facility] [address] [place] [address] Dr. Oh Trotter Hematocrit (Bld) [Volume fraction] 47.1 % Normal 42.0-54.0 [facility] Comment on above: Performed By: #### P TT, PT #### [facility] [address] [place] [address] Dr. Oh Trotter Hemoglobin (Bld) [Mass/Vol] 16.7 g/dL Normal 14.0-18.0 [facility] Comment on above: Performed By: #### P TT, PT #### [facility] [address] [place] [address] Dr. Oh Trotter IG # 0.02 10e3/ul Normal 0.00-0.03 [facility] Comment on above: Performed By: #### P TT, PT #### [facility] [address] [place] [address] Dr. Oh Trotter IG % 0.3 % Normal 0.0-0.5 [facility] Comment on above: Performed By: #### P TT, PT #### [facility] [address] [place] [address] Dr. Oh Trotter LYMPH # 2.3 103/ul Normal 1.2-3.8 [facility] Comment on above: Performed By: #### P TT, PT #### [facility] [address] [place] [address] Dr. Oh Trotter Lymphocytes/100 WBC (Bld) 31.7 % Normal 20.5-60.0 [facility] Comment on above: Performed By: #### P TT, PT #### [facility] [address] [place] [address] Dr. Oh Trotter MANUAL DIFF REQ NO Normal [facility] Comment on above: Performed By: #### P TT, PT #### [facility] [address] [place] [address] Dr. Oh Trotter MCH (RBC) [Entitic mass] 29.9 pg Normal 25.9-34.0 [facility] Comment on above: Performed By: #### P TT, PT #### [facility] [address] [place] [address] Dr. Oh Trotter MCHC (RBC) [Mass/Vol] 35.5 g/dL Critically high 29.9-35.2 [facility] Comment on above: Performed By: #### P TT, PT #### [facility] [address] [place] [address] Dr. Oh Trotter MCV (RBC) [Entitic vol] 84.4 fL Normal 80.0-94.0 [facility] Comment on above: Performed By: #### P TT, PT #### [facility] [address] [address] [address] Oh Trotter MONO # 0.4 103/ul Normal 0.3-0.8 [facility] Comment on above: Performed By: #### P TT, PT #### [facility] [address] [place] [address] Dr. Oh Trotter Monocytes/100 WBC (Bld) 4.9 % Normal 1.7-12.0 [facility] Comment on above: Performed By: #### P TT, PT #### [facility] [address] [place] [address] Dr. Oh Trotter NEUT # 4.6 103/ul Normal 1.4-6.5 [facility] Comment on above: Performed By: #### P TT, PT #### [facility] [address] [place] [address] Dr. Oh Trotter Neutrophils/100 WBC (Bld) 62.7 % Normal 43.0-75.0 [facility] Comment on above: Performed By: #### P TT, PT #### [facility] [address] [place] [address] Dr. Oh Trotter Platelet mean volume (Bld) [Entitic vol] 10.3 fL Normal 9.5-13.5 [facility] Comment on above: Performed By: #### P TT, PT #### [facility] [address] [place] [address] Dr. Oh Trotter PLT 225 103/ul Normal 150-450 [facility] Comment on above: Performed By: #### P TT, PT #### [facility] [address] [place] [address] Dr. Oh Trotter RBC 5.58 106/ul Normal 4.70-6.10 [facility] Comment on above: Performed By: #### P TT, PT #### [facility] [address] [place] [address] Dr. Oh Trotter WBC 7.3 103/ul Normal 4.0-11.0 [facility] Comment on above: Performed By: #### P TT, PT #### [facility] [address] [place] [address] Dr. Oh Trotter D-DIMERon 10-16-2021 D-DIMER <0.19 Normal <=0.59 [facility] Comment on above: Performed By: #### P TT, PT #### [facility] [address] [place] [address] Dr. Oh Trotter D-DIMER COMMENTS SEE BELOW Normal [facility] Comment on above: Result Comment: Incr [...] Performed By: #### P TT, PT #### [facility] [address] [place] [address] Dr. Oh Trotter LIPASEon 10-16-2021 Lipase [Catalytic activity/Vol] 127.0 U/L Normal 73.0-393.0 [facility] Comment on above: Performed By: #### L IPA, CMP, HSTROPN #### [facility] [address] [place] [address] Dr. Oh Trotter PROF 14(COMP METB)on 022 Albumin [Mass/Vol] 4.0 g/dL Normal 3.4-5.0 [facility] Comment on above: Performed By: #### L IPA, CMP, HSTROPN #### [facility] [address] [place] [address] Dr. Oh Trotter Albumin/Globulin [Mass ratio] 0.9 {ratio} Normal [facility] Comment on above: Performed By: #### L IPA, CMP, HSTROPN #### [facility] [address] [place] [address] Dr. Oh Trotter ALP [Catalytic activity/Vol] 73 U/L Normal 46-116 [facility] Comment on above: Performed By: #### L IPA, CMP, HSTROPN #### [facility] [address] [place] [address] Dr. Oh Trotter ALT [Catalytic activity/Vol] 45 U/L Normal 16-63 [facility] Comment on above: Performed By: #### L IPA, CMP, HSTROPN #### [facility] [address] [place] [address] Dr. Oh Trotter Anion gap [Moles/Vol] 15.4 mmol/L Normal [facility] Comment on above: Performed By: #### L IPA, CMP, HSTROPN #### [facility] [address] [place] [address] Dr. Oh Trotter AST [Catalytic activity/Vol] 25 U/L Normal 15-37 [facility] Comment on above: Performed By: #### L IPA, CMP, HSTROPN #### [facility] [address] [place] [address] Dr. Oh Trotter Bilirubin [Mass/Vol] 0.9 mg/dL Normal 0.2-1.0 [facility] Comment on above: Performed By: #### L IPA, CMP, HSTROPN #### [facility] [address] [place] [address] Dr. Oh Trotter Calcium [Mass/Vol] 9.3 mg/dL Normal 8.5-10.1 [facility] Comment on above: Performed By: #### L IPA, CMP, HSTROPN #### [facility] [address] [place] [address] Dr. Oh Trotter Chloride [Moles/Vol] 103 mmol/L Normal 98-107 [facility] Comment on above: Performed By: #### L IPA, CMP, HSTROPN #### [facility] [address] [place] [address] Dr. Oh Trotter CO2 [Moles/Vol] 20.4 mmol/L Critically low 21.0-32.0 [facility] Comment on above: Performed By: #### L IPA, CMP, HSTROPN #### [facility] [address] [address] [address] Oh Trotter Creatinine [Mass/Vol] 1.17 mg/dL Normal 0.70-1.30 [facility] Comment on above: Performed By: #### L IPA, CMP, HSTROPN #### [facility] [address] [address] [address] Oh Trotter EGFR-AF [place] >60 Normal >=60 [facility] Comment on above: Performed By: #### L IPA, CMP, HSTROPN #### [facility] [address] [address] [address] Oh Trotter EGFR-NON AF [place] >60 Normal >=60 [facility] Comment on above: Performed By: #### L IPA, CMP, HSTROPN #### [facility] [address] [place] [address] Dr. Oh Trotter Globulin (S) [Mass/Vol] 4.6 g/dL Normal [facility] Comment on above: Performed By: #### L IPA, CMP, HSTROPN #### [facility] [address] [address] [address] Oh Trotter Glucose [Mass/Vol] 127 mg/dL Critically high 74-[address] [facility] Comment on above: Performed By: #### L IPA, CMP, HSTROPN #### [facility] [address] [address] [address] Oh Trotter Potassium [Moles/Vol] 3.8 mmol/L Normal 3.5-5.1 [facility] Comment on above: Performed By: #### L IPA, CMP, HSTROPN #### [facility] [address] [address] [address] Oh Trotter Protein [Mass/Vol] 8.6 g/dL Critically high 6.4-8.[address] [facility] Comment on above: Performed By: #### L IPA, CMP, HSTROPN #### [facility] [address] [address] [address] Oh Trotter Sodium [Moles/Vol] 135 mmol/L Critically low 136-145 [facility] Comment on above: Performed By: #### L IPA, CMP, HSTROPN #### [facility] [address] [address] [address] Oh Trotter Urea nitrogen [Mass/Vol] 12.0 mg/dL Normal 7.0-18.0 [facility] Comment on above: Performed By: #### L IPA, CMP, HSTROPN #### [facility] [address] [address] [address] Oh Trotter Urea nitrogen/Creatinine [Mass ratio] 10.3 mg/mg Normal [facility] Comment on above: Performed By: #### L IPA, CMP, HSTROPN #### [facility] [address] [address] [address] Oh Trotter XR CHEST 1 Von [...] GALDINO ARROYO Date: 2021-10-16 13:09 Normal [facility] BNPon 09-15-2021 Natriuretic peptide B (Bld) [Mass/Vol] 9.0 pg/mL Normal <=450.0 [facility] Comment on above: Performed By: #### H STROPN, TSH, BNP, CMP #### [facility] [address] [address] [address] Oh Trotter CBC AUTO DIFFon 09-15-2021 BASO # 0.0 103/ul Normal 0.0-0.1 [facility] Comment on above: Performed By: #### L IPA, CMP, HSTROPN #### [facility] [address] [address] [address] Oh Trotter Basophils/100 WBC (Bld) 0.1 % Critically low 0.2-2.0 [facility] Comment on above: Performed By: #### L IPA, CMP, HSTROPN #### [facility] [address] [place] [address] Dr. hO Trotter EO # 0.1 103/ul Normal 0.0-0.7 [facility] Comment on above: Performed By: #### L IPA, CMP, HSTROPN #### [facility] [address] [place] [address] Dr. Oh Trotter Eosinophils/100 WBC (Bld) 0.6 % Critically low 0.9-7.0 [facility] Comment on above: Performed By: #### L IPA, CMP, HSTROPN #### [facility] [address] [place] [address] Dr. Oh Trotter Erythrocyte distribution width (RBC) [Ratio] 12.5 % Normal 11.0-15.0 [facility] Comment on above: Performed By: #### L IPA, CMP, HSTROPN #### [facility] [address] [place] [address] Dr. Oh Trotter Hematocrit (Bld) [Volume fraction] 48.3 % Normal 42.0-54.0 [facility] Comment on above: Performed By: #### L IPA, CMP, HSTROPN #### [facility] [address] [place] [address] Dr. Oh Trotter Hemoglobin (Bld) [Mass/Vol] 16.7 g/dL Normal 14.0-18.0 [facility] Comment on above: Performed By: #### L IPA, CMP, HSTROPN #### [facility] [address] [place] [address] Dr. Oh Trotter IG # 0.01 10e3/ul Normal 0.00-0.03 [facility] Comment on above: Performed By: #### L IPA, CMP, HSTROPN #### [facility] [address] [place] [address] Dr. Oh Trotter IG % 0.1 % Normal 0.0-0.5 [facility] Comment on above: Performed By: #### L IPA, CMP, HSTROPN #### [facility] [address] [place] [address] Dr. Oh Trotter LYMPH # 3.5 103/ul Normal 1.2-3.8 [facility] Comment on above: Performed By: #### L IPA, CMP, HSTROPN #### [facility] [address] [place] [address] Dr. Oh Trotter Lymphocytes/100 WBC (Bld) 38.8 % Normal 20.5-60.0 [facility] Comment on above: Performed By: #### L IPA, CMP, HSTROPN #### [facility] [address] [place] [address] Dr. Oh Trotter MANUAL DIFF REQ NO Normal [facility] Comment on above: Performed By: #### L IPA, CMP, HSTROPN #### [facility] [address] [place] [address] Dr. Oh Trotter MCH (RBC) [Entitic mass] 29.3 pg Normal 25.9-34.0 [facility] Comment on above: Performed By: #### L IPA, CMP, HSTROPN #### [facility] [address] [place] [address] Dr. Oh Trotter MCHC (RBC) [Mass/Vol] 34.6 g/dL Normal 29.9-35.2 [facility] Comment on above: Performed By: #### L IPA, CMP, HSTROPN #### [facility] [address] [place] [address] Dr. Oh Trotter MCV (RBC) [Entitic vol] 84.9 fL Normal 80.0-94.0 [facility] Comment on above: Performed By: #### L IPA, CMP, HSTROPN #### [facility] [address] [place] [address] Dr. Oh Trotter MONO # 0.5 103/ul Normal 0.3-0.8 [facility] Comment on above: Performed By: #### L IPA, CMP, HSTROPN #### [facility] [address] [address] [address] Oh Trotter Monocytes/100 WBC (Bld) 5.4 % Normal 1.7-12.0 [facility] Comment on above: Performed By: #### L IPA, CMP, HSTROPN #### [facility] [address] [place] [address] Dr. Oh Trotter NEUT # 4.9 103/ul Normal 1.4-6.5 [facility] Comment on above: Performed By: #### L IPA, CMP, HSTROPN #### [facility] [address] [place] [address] Dr. Oh Trotter Neutrophils/100 WBC (Bld) 55.0 % Normal 43.0-75.0 [facility] Comment on above: Performed By: #### L IPA, CMP, HSTROPN #### [facility] [address] [place] [address] Dr. Oh Trotter Platelet mean volume (Bld) [Entitic vol] 9.7 fL Normal 9.5-13.5 [facility] Comment on above: Performed By: #### L IPA, CMP, HSTROPN #### [facility] [address] [place] [address] Dr. Oh Trotter PLT 227 103/ul Normal 150-450 [facility] Comment on above: Performed By: #### L IPA, CMP, HSTROPN #### [facility] [address] [place] [address] Dr. Oh Trotter RBC 5.69 106/ul Normal 4.70-6.10 [facility] Comment on above: Performed By: #### L IPA, CMP, HSTROPN #### [facility] [address] [place] [address] Dr. Oh Trotter WBC 8.9 103/ul Normal 4.0-11.0 [facility] Comment on above: Performed By: #### L IPA, CMP, HSTROPN #### [facility] [address] [place] [address] Dr. Oh Trotter D-DIMERon 09-15-2021 D-DIMER 0.19 mg/L FEU Normal <=0.59 [facility] Comment on above: Performed By: #### L IPA, CMP, HSTROPN #### [facility] [address] [address] [address] Oh Trotter D-DIMER COMMENTS SEE BELOW Normal [facility] Comment on above: Result Comment: Incr [...] By: #### L IPA, CMP, HSTROPN #### [facility] [address] [place] [address] Dr. Oh Trotter PROF 14(COMP METB)on 022 Albumin [Mass/Vol] 3.9 g/dL Normal 3.4-5.0 [facility] Comment on above: Performed By: #### H STROPN, TSH, BNP, CMP #### [facility] [address] [place] [address] Dr. Oh Trotter Albumin/Globulin [Mass ratio] 0.8 {ratio} Normal [facility] Comment on above: Performed By: #### H STROPN, TSH, BNP, CMP #### [facility] [address] [address] [address] Oh Trotter ALP [Catalytic activity/Vol] 73 U/L Normal 46-116 [facility] Comment on above: Performed By: #### H STROPN, TSH, BNP, CMP #### [facility] [address] [place] [address] Dr. Oh Trotter ALT [Catalytic activity/Vol] 48 U/L Normal 16-63 [facility] Comment on above: Performed By: #### H STROPN, TSH, BNP, CMP #### [facility] [address] [address] [address] Oh Trotter Anion gap [Moles/Vol] 14.9 mmol/L Normal [facility] Comment on above: Performed By: #### H STROPN, TSH, BNP, CMP #### [facility] [address] [address] [address] Oh Trotter AST [Catalytic activity/Vol] 22 U/L Normal 15-37 [facility] Comment on above: Performed By: #### H STROPN, TSH, BNP, CMP #### [facility] [address] [address] [address] Oh Trotter Bilirubin [Mass/Vol] 0.4 mg/dL Normal 0.2-1.0 [facility] Comment on above: Performed By: #### H STROPN, TSH, BNP, CMP #### [facility] [address] [place] [address] Dr. Oh Trotter Calcium [Mass/Vol] 9.2 mg/dL Normal 8.5-10.1 [facility] Comment on above: Performed By: #### H STROPN, TSH, BNP, CMP #### [facility] [address] [place] [address] Dr. Oh Trotter Chloride [Moles/Vol] 102 mmol/L Normal 98-107 [facility] Comment on above: Performed By: #### H STROPN, TSH, BNP, CMP #### [facility] [address] [place] [address] Dr. Oh Trotter CO2 [Moles/Vol] 23.7 mmol/L Normal 21.0-32.0 [facility] Comment on above: Performed By: #### H STROPN, TSH, BNP, CMP #### [facility] [address] [place] [address] Dr. Oh Trotter Creatinine [Mass/Vol] 1.14 mg/dL Normal 0.70-1.30 [facility] Comment on above: Performed By: #### H STROPN, TSH, BNP, CMP #### [facility] [address] [place] [address] Dr. Oh Trotter EGFR-AF [place]ER >60 Normal >=60 [facility] Comment on above: Performed By: #### H STROPN, TSH, BNP, CMP #### [facility] [address] [address] [address] Oh Trotter EGFR-NON AF [place] >60 Normal >=60 [facility] Comment on above: Performed By: #### H STROPN, TSH, BNP, CMP #### [facility] [address] [address] [address] Oh Trotter Globulin (S) [Mass/Vol] 4.7 g/dL Normal [facility] Comment on above: Performed By: #### H STROPN, TSH, BNP, CMP #### [facility] [address] [address] [address] Oh Trotter Glucose [Mass/Vol] 120 mg/dL Critically high 74-[address] [facility] Comment on above: Performed By: #### H STROPN, TSH, BNP, CMP #### [facility] [address] [address] [address] Oh Trotter Potassium [Moles/Vol] 3.6 mmol/L Normal 3.5-5.1 [facility] Comment on above: Performed By: #### H STROPN, TSH, BNP, CMP #### [facility] [address] [address] [address] Oh Trotter Protein [Mass/Vol] 8.6 g/dL Critically high 6.4-8.[address] [facility] Comment on above: Performed By: #### H STROPN, TSH, BNP, CMP #### [facility] [address] [address] [address] Oh Trotter Sodium [Moles/Vol] 137 mmol/L Normal 136-145 [facility] Comment on above: Performed By: #### H STROPN, TSH, BNP, CMP #### [facility] [address] [place] [address] Dr. Oh Trotter Urea nitrogen [Mass/Vol] 12.0 mg/dL Normal 7.0-18.0 [facility] Comment on above: Performed By: #### H STROPN, TSH, BNP, CMP #### [facility] [address] [address] [address] Oh Trotter Urea nitrogen/Creatinine [Mass ratio] 10.5 mg/mg Normal [facility] Comment on above: Performed By: #### H STROPN, TSH, BNP, CMP #### [facility] [address] [place] [address] Dr. Oh Trotter PROTIMEon 09-15-2021 INR Coag (PPP) [Relative time] 0.94 {INR} Normal [facility] Comment on above: Performed By: #### L IPA, CMP, HSTROPN #### [facility] [address] [place] [address] Dr. Oh Trotter INR GUIDELINES SEE BELOW Normal [facility] Comment on above: Result Comment: ADITHYA RED INR: 2.0 - 3.0 CONDITIONS NOT LISTED BELOW 2.5 - 3.5 FOR PROSTHETIC HEART VALVE REPLACEMENT 2.5 - 3.5 RECURRENT THROMBOSIS Performed By: #### L IPA, CMP, HSTROPN #### [facility] [address] [place] [address] Dr. Oh Trotter PT Coag (PPP) [Time] 10.2 s Normal 9.0-11.6 [facility] Comment on above: Performed By: #### L IPA, CMP, HSTROPN #### [facility] [address] [place] [address] Dr. Oh Trotter PTTon 09-15-2021 aPTT Coag (Bld) [Time] 26.6 s Normal 22.3-36.2 [facility] Comment on above: Performed By: #### L IPA, CMP, HSTROPN #### [facility] [address] [place] [address] Dr. Oh Trotter TROPONIN, HIGH SENSITIVITYon 09-15-2021 HSTROP 3.4 pg/mL Critically low 4.0-76.1 [facility] Comment on above: Result Comment: CUT- OFF POINTS HAVE BEEN ESTABLISHED BASED ON THE FOURTH UNIVERSAL DEFINITIONS OF MYOCARDIAL INFARCTION. THE UPPER REFERENCE LIMIT (URL) OF TROPONIN, DEFINED THE 99TH PERCENTILE OF cTnI DISTRIBUTION IN A REFERENCE POPULATION, HAS BEEN CONFIRMED THE DECISION THRESHOLD FOR DE DIAGNOSIS. Performed By: #### P TT, PT #### [facility] [address] [address] [address] Oh Trotter TSHon 09-15-2021 TSH 1.085 uIU/mL Normal 0.358-3.740 [facility] Comment on above: Performed By: #### H STROPN, TSH, BNP, CMP #### [facility] [address] [address] [address] Oh Trotter TSH RANGE SEE BELOW Normal [facility] Comment on above: Result Comment: <0.3 4 UIU/ml HYPERTHYROID 0.34-5.60 UIU/ml EUTHYROID >5.60 UIU/ml HYPOTHYROID Performed By: #### H STROPN, TSH, BNP, CMP #### [facility] [address] [address] [address] Oh Trotter XR ABD FLAT UP_PA [...] by: OTTO POLANCO Date: 2021-09-15 19:35 Normal [facility] XR CHEST 1 Von 09-07-2021 XR CHEST [...] by: ELIZABETH TURNER Date: 2021-09-06 23:38 Normal [facility] Encounters Encounter Date Encounter Type Care Provider Facility Start: 08-09-2022 End: 08-09-2022 ambulatory LEIGHANN SORIANO Facility:[facility] Start: 07-28-2022 End: 07-29-2022 ambulatory LEIGHANN CHRISTIE Facility:[facility] Start: 06-24-2022 End: 06-25-2022 ambulatory Lucy Rich VIVIANE Facility:CD:[id number] Start: 06-03-2022 End: 06-04-2022 ambulatory Lucy Rich VIVIANE Facility:[facility] Start: 05-23-2022 End: 05-23-2022 ambulatory LEIGHANNJAILYN SORIANO Facility:[facility] Start: 05-13-2022 ambulatory Lucy ANTHONYSebas Facility:[facility] Start: 05-11-2022 End: 05-11-2022 ambulatory LEIGHANN CHRISTIE Facility:[facility] Start: 05-02-2022 End: 05-02-2022 ambulatory LEIGHANN CHRISTIE Facility:[facility] Start: 03-30-2022 End: 03-30-2022 ambulatory AMTTHIAS BUTLER . Facility:[facility] Start: 03-06-2022 End: 03-06-2022 ambulatory MATTHIAS BUTLER . Facility:[facility] Start: 11-01-2021 End: 11-02-2021 ambulatory TATA CAMERON Facility:[facility] Start: 10-16-2021 End: 10-16-2021 ambulatory MARZENA CORRALES . Facility:[facility] Start: 09-15-2021 End: 09-15-[address] CARL BANG Facility:[facility] Start: 09-11-2021 End: 09-11-2021 ambulatory LUCY OVALLE Facility:[facility] Start: 09-07-2021 End: 09-07-[address] SUKUMAR NAIR Facility:[facility] Payers Date Payer Category Payer Unknown [id number] 2.16.8 [id number] 1985 Unknown [id number] 2.16.8 [id number] 1987 Unknown [id number] 2.16.84 [id number] 1987 Unknown [id number] 2.16.84 [id number] 1987 Unknown [id number] 2.16.84 [id number] 1987 Unknown [id number] 2.16.84 [id number] 1987 Unknown [id number] 2.16.84 [id number] 1987 Unknown [id number] 2.16.84 [id number] 1987 Unknown [id number] 2.16.84 [id number] 1987 Unknown [id number] 2.16.84 [id number] 1987 Unknown [id number] 2.16.84 [id number] 1987 Unknown [id number] 2.16.84 0.1.288126.3.579.2.593 1987 Unknown [id number] 2.16.84 [id number] 1987 Unknown [id number] 2.16.84 [id number] 1987 Unknown [id number] 2.16.84 [id number] 1959 Unknown [id number] Clinical Note 06-24-2022 Note Date & Type [...] good condition. CC: Leighann Soriano CNP [facility] Clinical Note 06-03-2022 Note Date & [...] Present Illness 36 yo male with h/o Pbitu-Rddnoxirs-Acqcd syndrome, migraines, GERD, AIDAN, depression, IBS; referred [...] with mild panic attacks Rectal bleeding Smoker Tvhnx-Wdjdnoidd-Kgxvv syndrome Historical Atrial fibrillation Epididymitis Nocturia Scrotal [...] cap(s), Oral, Daily (more content not included)... [facility] Comment on above: Result Comment: Elec [...] section and content) DATE CREATED AUTHOR 07/02/2022 [facility] DATE CREATED AUTHOR AUTHOR'S ORGANIZ ATION 08/11/2022 [facility] FOR RECORDS PERTAINING TO PATIENTS WHO ARE [...] BE BASED ON THE PRIMARY CLINICAL RECORDS. [facility]. provides no warranty or guarantee of the accuracy or completeness of information in this document.
[2023-06-26] MEDS: ONDANSETRON PF 4 MG/2 ML VIAL IV (12:36)
[2023-06-26] MEDS: 0.9 % SODIUM CHLORIDE 1,000 ML 100 ML IV (12:36)
[2023-06-26] MEDS: KETOROLAC TROMETHAMINE 30 MG/ML VIAL IVP (12:36)
[2023-06-26] MEDS: HYDROMORPHONE HCL 1 MG/ML CARTRIDGE IVP (12:36)
[2023-06-26 12:50] LABS: Eosinophils Percent Auto 0.3 % (0.9-7.0); Hematocrit 44.2 % (42.0-54.0); Hemoglobin 15.4 g/dL (14.0-18.0); Immature Granulocytes Abs Auto 0.02 10^3/uL (0.00-0.03); Immature Granulocytes Pct Auto 0.3 % (0.0-0.5); Lymphocytes Absolute Auto 1.8 10^3/uL (1.2-3.8); Lymphocytes Percent Auto 22.8 % (20.5-60.0); Mean Corpuscular HGB Conc 34.8 g/dL (29.9-35.2); Mean Corpuscular Hemoglobin 29.5 pg (25.9-34.0); Mean Corpuscular Volume 84.7 fL (80.0-94.0); Mean Platelet Volume 9.4 fL (9.5-13.5); Monocytes Absolute Auto 0.4 10^3/uL (0.3-0.8); Neutrophils Absolute Auto 5.7 10^3/uL (1.4-6.5); Neutrophils Percent Auto 71.6 % (43.0-75.0); Platelet Count 190 10^3/uL (150-450); Red Blood Count 5.22 10^6/uL (4.70-6.10); Red Cell Distribution Width 12.3 % (11.0-15.0)
[2023-06-26 12:52] VITALS: BP 141/86; PULSE 79; RESP 18; O2SAT 95
[2023-06-26 12:53] LABS: Anion Gap 16.2; BUN Creatinine Ratio 11.6; Calcium 8.9 mg/dL (8.5-10.1); Carbon Dioxide 22.7 mmol/L (21.0-32.0); Chloride 104 mmol/L (98-107); Estimated GFR (African America >60 (>=60); Estimated GFR (Non-African Ame >60 (>=60); Glucose 150 mg/dL (74-106); Potassium 3.9 mmol/L (3.5-5.1); Sodium 139 mmol/L (136-145)
[2023-06-26 13:26] LABS: Bilirubin Urine NEGATIVE (NEGATIVE); Blood Urine SMALL (NEGATIVE); Clarity Urine CLEAR (CLEAR); Color Urine YELLOW (YELLOW); Glucose Urine UA NEGATIVE (NEGATIVE); Ketones Urine NEGATIVE (NEGATIVE); Leukocyte Esterase Urine NEGATIVE (NEGATIVE); Nitrite Urine NEGATIVE (NEGATIVE); Protein Urine NEGATIVE (NEG/TRACE); Specific Gravity Urine 1.025 (1.005-1.025); Urobilinogen Urine 0.2 EU/dL (0.2-1.0)
[2023-06-26 13:27] LABS: Urine Microscopic Indicated YES
[2023-06-26 13:35] LABS: Bacteria Urine NONE SEEN #/HPF (NONE SEEN); Mucus Urine SMALL (NONE SEEN); RBC Urine 0-2 #/HPF (0-2); WBC Urine NONE SEEN #/HPF (NONE SEEN)
[2023-06-26 13:36] LABS: Squamous Epithelial Cell Urine FEW #/LPF (NONE/RARE); Urine Culture Indicated NO
[2023-06-26 14:55] VITALS: BP 137/96; PULSE 79; RESP 18; O2SAT 95
== END 2023-06-26 15:00 | disposition home or self-care (01) ==
PROVIDERS: Emergency Provider Emergency Medicine Emergency Medical Services; PCP Nurse Practitioner Family
DX: S39.012A Strain of muscle, fascia and tendon of lower back, initial encounter (principal); X58.XXXA Exposure to other specified factors, initial encounter; F17.200 Nicotine dependence, unspecified, uncomplicated
CPT/HCPCS: 36415; 74176; 80048; 81001; 85025; 96374; 96375; 99285; J1170; J1885; J2405

== ENCOUNTER 2023-06-28 02:46 | Emergency (ER) | payer OTHER, SELFPAY ==
[2023-06-28 02:47] VITALS: BP 163/95; PULSE 80; RESP 20; TEMP 36.7; O2SAT 97; BMI 43.6
[2023-06-28 02:57] VITALS: PULSE 81
--- NOTE | 2023-06-28 02:58 | ED_ITS ---
HPI - Abdominal Pain General Chief Complaint: Abdominal Pain Stated Complaint: chest pain Time Seen by Provider: 06/28/23 02:46 Source: patient Mode of arrival: ambulance Limitations: no limitations History of Present Illness HPI narrative: This 37-year-old male presents for evaluation of epigastric abdominal pain associated with 3 episodes of nausea and vomiting. The patient states that he laid down with his kids yesterday during the day and woke up around 3:30. He was nauseated at that time and since that time he has had 3 episodes of vomiting. His vomit has been yellow in color. He is status post cholecystectomy at age 17. He has not had any diarrhea. EMS was called for evaluation of chest pain and abdominal pain. He denied any chest pain to them stating that he just had abdominal pain. According to EMS he was given 324 mg baby aspirin and an IV was established and he was given Zofran for his nausea and vomiting. They stated to me that the patient was comfortable and interactive in the back of the ambulance but as soon as he got out of the ambulance and was being wheeled into the emergency Department started clutching his abdomen and crying in pain. He was able to walk out of his house into the ambulance. The patient was seen in this emergency department recently for flank pain beginning that he had a kidney stone. He is not having a kidney stone but had arthritic changes on his CT scan. The patient is morbidly obese. He denies any change in his diet. He admits to tobacco use but denies alcohol use. He denies any dizziness or syncope. He has no lower extremity pain or swelling. He has not had any diarrhea or black tarry stools. The paramedics also noted that he recently ran out of his anxiety medications. Related Data Home Medications Medication Instructions Recorded Confirmed divalproex 250 mg tablet,extended 250 mg PO DAILY 04/11/23 06/28/23 release 24 hr fluoxetine 10 mg capsule 30 mg PO DAILY 04/11/23 06/28/23 gabapentin 100 mg capsule 100 mg PO TID 04/11/23 06/28/23 hydroxyzine HCl 25 mg tablet 50 mg PO BID PRN anxiety 04/11/23 05/17/23 olanzapine 10 mg tablet 10 mg PO DAILY 04/11/23 06/28/23 Allergies Allergy/AdvReac Type Severity Reaction Status Date / Time erythromycin base Allergy Intermediate Rash Verified 04/11/23 13:59 Penicillins Allergy Intermediate Rash Verified 04/11/23 13:59 Review of Systems ROS Status of ROS 10 or more systems reviewed and unremark able except as noted in history and below [facility] Social History Smoking status: Current every day smoker Exam Narrative Exam Narrative: Nurses note and vital signs reviewed and patient is not hypoxic.Patient is afebrile normal pulse, blood pressure is elevated at 163/95 General: Alert, obese, nontoxic male resting currently on a stretcher, no respiratory distress, no active vomiting Skin: Warm, dry, no pallor noted. There is no rash noted. Head: Normocephalic, atraumatic Eye: Normal conjunctiva, no drainage, EOMI. PERRL. No scleral icterus Ears, Nose, Mouth, and Throat: oral mucosa is moist. Nares patent. Cardiovascular: Regular Rate and Rhythm S1S2, pulses are brisk and equal bilaterally Respiratory: Patient is in no distress, no accessory muscle use, lungs are clear to auscultation, no wheezing, rales or rhonchi Back: non-tender, no CVA tenderness bilaterally to percussion. GI: Obese, soft, non-distended. Abdomen is diffusely tender and on exam tenderness is localized to the epigastrium Musculoskeletal: The patient has no evidence of calf tenderness, no pitting edema, symmetrical pulses noted bilaterally Neurological: A&O x4, normal speech Psychiatric: Cooperative, anxious Constitutional Vital Signs, click to edit/add: Last Vital Signs Temp 98.1 F 06/28/23 02:47 Pulse 80 06/28/23 02:47 Resp 20 06/28/23 02:47 BP 163/95 H 06/28/23 02:47 Pulse Ox 97 06/28/23 02:47 O2 Del Method Room Air 06/28/23 02:47 Course Course Hospital Course: Pt was medicated with IV fluids, gastrointestinal cocktail and Pepcid as well as Toradol for pain. Intermittently calls out crying in pain and otherwise is resting comfortably. Labs are reviewed and are normal. X-ray of the chest and abdomen shows no free air or sign of obstruction but a large amount of stool. On reevaluation the patient now states that he has been out of his hydroxyzine and wishes that I give him something strong enough so he can go home and sleep. He is not vomiting. He was ambulatory to the bathroom without difficulty Vital Signs Vital signs: Vital Signs Temperature 98.1 F 06/28/23 02:47 Pulse Rate 80 06/28/23 02:47 Respiratory Rate 20 06/28/23 02:47 Blood Pressure 163/95 H 06/28/23 02:47 Pulse Oximetry 97 06/28/23 02:47 Oxygen Delivery Method Room Air 06/28/23 02:47 Temperature 98.1 F 06/28/23 02:47 Pulse Rate 80 06/28/23 02:47 Respiratory Rate 20 06/28/23 02:47 Blood Pressure 163/95 H 06/28/23 02:47 Pulse Oximetry 97 06/28/23 02:47 Oxygen Delivery Method Room Air 06/28/23 02:47 MDM - Abdominal Pain MDM Narrative Medical decision making narrative: This 37-year-old male with a history of anxiety who was recently in this emergency department with flank pain beginning that he had a kidney stone is brought emergency department by EMS from home for evaluation of upper abdominal pain. The patient states that he laid down with his kids earlier today when he woke up he was nauseated and had 3 episodes of vomiting and subsequently devveloped epigastric abdominal pain. EMS was called for chest pain and abdominal pain. He denied any chest pain to them and complained of epigastric abdominal pain with nausea vomiting. They noted that he was fine in the back of the ambulance until they were wheeling into the emergency department which is when he started clutching his abdomen and gagging. In the emergency department sinus rhythm. He was given IV fluids, Toradol, Pepcid and a gastrointestinal cocktail. He denied that he had any relief from these medications and had multiple requests for stronger medication. Seen labs including CBC with differential, comprehensive metabolic profile, troponin and lipase were ordered. His labs are normal. Abdominal series x-ray was ordered and does not show any acute findings. There is a moderate amount of stool the x-ray. The patient states that he did have a bowel movement before EMS arrived. Per medics did inform me that the patient is out of his anxiety medications. He states that he is out of his hydroxyzine. During this interaction he told me that he just wants something to control the pain all over his body, not in his abdomen, as noted from his problem list he has chronic back pain, bursitis, hip pain falls etc. I ordered a dose of oral Ativan and Zofran for him. Anticipate discharging him home after the Ativan starts to relieve his anxiety. 0530; Pt rang his call light and I responded and he states that he wants to go home. He will call his for a ride. He will be discharged home with Rx for zofran for nausea and vomiting and protonix for the epigastric abdominal pain. I reviewed his [facility] report and he gets frequent Rx for gabapentin and Klonopin. Medical Records Medical records narrative: The [address] [address] XRay Report Signed Patient: CHUCK PACKER MR#: [id number] : 1985 Acct:[id number] Age/Sex: 37 / M ADM Date: 06/28/23 Loc: ER Attending Dr: Ordering Physician: Roro Berger Date of Service: 06/28/23 Procedure(s): XR acute abdomen series Accession Number(s): [id number] cc: MERNA SORIANO ; Roro Marker~ The [address] [address] Patient Name: CHUCK PACKER MRN: [id number] date: 1985 Sex: M Assigned Patient Location: ER Current Patient Location: ER Accession/Order Number: [id number] Exam Date: 06/28/2023 03:59 Report Date: 06/28/2023 04:37 At the request of: RORO BERGER Procedure: XR acute abdomen series EXAMINATION: XR acute abdomen series HISTORY: epigastric abd pain , nausea and vomiting COMPARISON: No relevant comparison available. FINDINGS: LUNGS: No infiltrate, pneumothorax, or pleural effusion. MEDIASTINUM: No abnormal widening. BOWEL GAS PATTERN: Non-obstructed. No abnormal dilation or suspicious fluid levels. FREE AIR: None. CALCIFICATIONS: None significant. BONES: No fracture or visible bone lesion. OTHER: Negative. XR/XR acute abdomen series IMPRESSION: 1. No acute cardiac pulmonary process. 2. Normal bowel gas pattern. 3. No suspicious findings to account for patient's symptoms. Electronically authenticated by: GOOD TURNER Date: 06/28/2023 04:37 Lab Data Attestation: I reviewed the patient's lab results. Lab results narrative: labs are normal including lipase, troponin and LFTs Labs: Lab Results 06/28/23 Range/Units 03:10 WBC 7.7 (4.0-11.0) 10^3/uL RBC 4.91 (4.70-6.10) 10^6/uL Hgb 14.7 (14.0-18.0) g/dL Hct 41.9 L (42.0-54.0) % MCV 85.3 (80.0-94.0) fL MCH 29.9 (25.9-34.0) pg MCHC 35.1 (29.9-35.2) g/dL RDW 12.0 (11.0-15.0) % Plt Count 189 (150-450) 10^3/uL MPV 9.2 L (9.5-13.5) fL Neut % (Auto) 67.8 (43.0-75.0) % Lymph % (Auto) 25.5 (20.5-60.0) % Gilchrist % (Auto) 5.7 (1.7-12.0) % Eos % (Auto) 0.0 L (0.9-7.0) % Baso % (Auto) 0.1 L (0.2-2.0) % Neut # (Auto) 5.2 (1.4-6.5) 10^3/uL Lymph # (Auto) 2.0 (1.2-3.8) 10^3/uL Gilchrist # (Auto) 0.4 (0.3-0.8) 10^3/uL Eos # (Auto) 0.0 (0.0-0.7) 10^3/uL Baso # (Auto) 0.0 (0.0-0.1) 10^3/uL Abs Immat Gran (auto) 0.07 H (0.00-0.03) 10^3/uL Imm/Tot Granulo (auto) 0.9 H (0.0-0.5) % Sodium 142 (136-145) mmol/L Potassium 3.7 (3.5-5.1) mmol/L Chloride 105 (98-107) mmol/L Carbon Dioxide 27.3 (21.0-32.0) mmol/L Anion Gap 13.4 BUN 11.0 (7.0-18.0) mg/dL Creatinine 1.22 (0.70-1.30) mg/dL Est GFR ( Amer) >60 (>=60) Est GFR (Non-Af Amer) >60 (>=60) BUN/Creatinine Ratio 9.0 Glucose 179 H (74-106) mg/dL Calcium 8.9 (8.5-10.1) mg/dL Total Bilirubin 0.6 (0.2-1.0) mg/dL AST 31 (15-37) U/L ALT 62 (16-63) U/L Alkaline Phosphatase 55 (46-116) U/L Troponin I High Sens 4.7 (4.0-76.1) pg/mL Total Protein 8.6 H (6.4-8.2) g/dL Albumin 3.6 (3.4-5.0) g/dL Globulin 5.0 g/dL Albumin/Globulin Ratio 0.7 Lipase 37.0 (16.0-77.0) U/L ECG Data Attestation: I personally reviewed and interpreted this ECG as follows: (Sinus rhythm at 80 beats for minute, normal axis, normal intervals, no acute ST segment elevation or T-wave inversion) Discharge Plan Discharge Chief Complaint: Abdominal Pain Clinical Impression: Acute gastritis, Nausea & vomiting, Elevated blood pressure reading Patient Disposition: Home, Self-Care Time of Disposition Decision: 05:26 Condition: Good Prescriptions / Home Meds: No Action divalproex 250 mg tablet extended release 24 hr 250 mg PO DAILY fluoxetine 10 mg capsule 30 mg PO DAILY gabapentin 100 mg capsule 100 mg PO TID hydroxyzine HCl 25 mg tablet 50 mg PO BID PRN (Reason: anxiety) olanzapine 10 mg tablet 10 mg PO DAILY Instructions: Gastritis (ED), Acute Nausea and Vomiting (ED) Stand Alone Forms: Portal Instructions Referrals: MERNA SORIANO [Primary Care Provider] - 1 week
[2023-06-28 03:17] LABS: Basophils Percent Auto 0.1 % (0.2-2.0); Hematocrit 41.9 % (42.0-54.0); Hemoglobin 14.7 g/dL (14.0-18.0); Immature Granulocytes Abs Auto 0.07 10^3/uL (0.00-0.03); Immature Granulocytes Pct Auto 0.9 % (0.0-0.5); Lymphocytes Percent Auto 25.5 % (20.5-60.0); Mean Corpuscular HGB Conc 35.1 g/dL (29.9-35.2); Mean Corpuscular Hemoglobin 29.9 pg (25.9-34.0); Mean Corpuscular Volume 85.3 fL (80.0-94.0); Mean Platelet Volume 9.2 fL (9.5-13.5); Monocytes Absolute Auto 0.4 10^3/uL (0.3-0.8); Monocytes Percent Auto 5.7 % (1.7-12.0); Neutrophils Absolute Auto 5.2 10^3/uL (1.4-6.5); Neutrophils Percent Auto 67.8 % (43.0-75.0); Platelet Count 189 10^3/uL (150-450); Red Blood Count 4.91 10^6/uL (4.70-6.10); White Blood Count 7.7 10^3/uL (4.0-11.0)
[2023-06-28] MEDS: 0.9 % SODIUM CHLORIDE 1,000 ML 1000 ML IV (03:19)
[2023-06-28] MEDS: KETOROLAC TROMETHAMINE 30 MG/ML VIAL IVP (03:20)
[2023-06-28] MEDS: FAMOTIDINE/PF 20 MG/2 ML VIAL IV (03:20)
--- OUTSIDE RECORDS SUMMARY | 2023-06-28 03:28 | XMS_ITS | CCD ---
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 Name Role Phone Lucy BEY Attending Unavailable [...] (1 source) Erythromycin; Translations: [erythromycin] Drug Allergy [facility] Repository (2 sources) Penicillins; Translations: [penicillins] Propensity to adverse reactions (disorder) 4 [facility] Repository (1 source) Erythromycin Drug Allergy 4 [facility] Repository Problems Active Problems Problem Classification [...] Onset: 06-25-2022 Other aftercare (1 source) Other snf (current) drug therapy; Translations: [OTH FORENSIC NURSE CURRENT DRUG THERAPY] Onset: 06-25-2022 Episodic Other [...] 08-09-2022 BASO # 0.0 103/ul Normal 0.0-0.1 [facility] Comment on above: Performed By: #### P TT, PT #### [facility] [address] [place] [address] Dr. Oh Trotter Basophils/100 WBC (Bld) 0.2 % Normal 0.2-2.0 [facility] Comment on above: Performed By: #### P TT, PT #### [facility] [address] [place] [address] Dr. Oh Trotter EO # 0.0 103/ul Normal 0.0-0.7 [facility] Comment on above: Performed By: #### P TT, PT #### [facility] [address] [place] [address] Dr. Oh Trotter Eosinophils/100 WBC (Bld) 0.6 % Critically low 0.9-7.0 [facility] Comment on above: Performed By: #### P TT, PT #### [facility] [address] [place] [address] Dr. Oh Trotter Erythrocyte distribution width (RBC) [Ratio] 12.2 % Normal 11.0-15.0 [facility] Comment on above: Performed By: #### P TT, PT #### [facility] [address] [place] [address] Dr. Oh Trotter Hematocrit (Bld) [Volume fraction] 44.1 % Normal 42.0-54.0 [facility] Comment on above: Performed By: #### P TT, PT #### [facility] [address] [place] [address] Dr. Oh Trotter Hemoglobin (Bld) [Mass/Vol] 15.8 g/dL Normal 14.0-18.0 [facility] Comment on above: Performed By: #### P TT, PT #### [facility] [address] [place] [address] Dr. Oh Trotter IG # 0.02 10e3/ul Normal 0.00-0.03 [facility] Comment on above: Performed By: #### P TT, PT #### [facility] [address] [place] [address] Dr. Oh Trotter IG % 0.3 % Normal 0.0-0.5 [facility] Comment on above: Performed By: #### P TT, PT #### [facility] [address] [place] [address] Dr. Oh Trotter LYMPH # 1.9 103/ul Normal 1.2-3.8 [facility] Comment on above: Performed By: #### P TT, PT #### [facility] [address] [place] [address] Dr. Oh Trotter Lymphocytes/100 WBC (Bld) 29.7 % Normal 20.5-60.0 [facility] Comment on above: Performed By: #### P TT, PT #### [facility] [address] [place] [address] Dr. Oh Trotter MANUAL DIFF REQ NO Normal [facility] Comment on above: Performed By: #### P TT, PT #### [facility] [address] [place] [address] Dr. Oh Trotter MCH (RBC) [Entitic mass] 29.8 pg Normal 25.9-34.0 [facility] Comment on above: Performed By: #### P TT, PT #### [facility] [address] [place] [address] Dr. Oh Trotter MCHC (RBC) [Mass/Vol] 35.8 g/dL Critically high 29.9-35.2 [facility] Comment on above: Performed By: #### P TT, PT #### [facility] [address] [place] [address] Dr. Oh Trotter MCV (RBC) [Entitic vol] 83.2 fL Normal 80.0-94.0 [facility] Comment on above: Performed By: #### P TT, PT #### [facility] [address] [place] [address] Dr. Oh Trotter MONO # 0.6 103/ul Normal 0.3-0.8 [facility] Comment on above: Performed By: #### P TT, PT #### [facility] [address] [place] [address] Dr. Oh Trotter Monocytes/100 WBC (Bld) 8.6 % Normal 1.7-12.0 [facility] Comment on above: Performed By: #### P TT, PT #### [facility] [address] [place] [address] Dr. Oh Trotter NEUT # 3.9 103/ul Normal 1.4-6.5 [facility] Comment on above: Performed By: #### P TT, PT #### [facility] [address] [place] [address] Dr. Oh Trotter Neutrophils/100 WBC (Bld) 60.6 % Normal 43.0-75.0 [facility] Comment on above: Performed By: #### P TT, PT #### [facility] [address] [place] [address] Dr. Oh Trotter Platelet mean volume (Bld) [Entitic vol] 9.5 fL Normal 9.5-13.5 [facility] Comment on above: Performed By: #### P TT, PT #### [facility] [address] [place] [address] Dr. Oh Trotter PLT 187 103/ul Normal 150-450 [facility] Comment on above: Performed By: #### P TT, PT #### [facility] [address] [place] [address] Dr. Oh Trotter RBC 5.30 106/ul Normal 4.70-6.10 [facility] Comment on above: Performed By: #### P TT, PT #### [facility] [address] [place] [address] Dr. Oh Trotter WBC 6.4 103/ul Normal 4.0-11.0 [facility] Comment on above: Performed By: #### P TT, PT #### [facility] [address] [place] [address] Dr. Oh Trotter PROF 14(COMP METB)on 023 Albumin [Mass/Vol] 3.5 g/dL Normal 3.4-5.0 [facility] Comment on above: Performed By: #### L IPA, CMP, HSTROPN #### [facility] [address] [address] [address] Oh Trotter Albumin/Globulin [Mass ratio] 0.7 {ratio} Normal [facility] Comment on above: Performed By: #### L IPA, CMP, HSTROPN #### [facility] [address] [address] [address] Oh Trotter ALP [Catalytic activity/Vol] 85 U/L Normal 46-116 [facility] Comment on above: Performed By: #### L IPA, CMP, HSTROPN #### [facility] [address] [address] [address] Oh Trotter ALT [Catalytic activity/Vol] 34 U/L Normal 16-63 [facility] Comment on above: Performed By: #### L IPA, CMP, HSTROPN #### [facility] [address] [address] [address] Oh Trotter Anion gap [Moles/Vol] 13.3 mmol/L Normal [facility] Comment on above: Performed By: #### L IPA, CMP, HSTROPN #### [facility] [address] [address] [address] Oh Trotter AST [Catalytic activity/Vol] 18 U/L Normal 15-37 [facility] Comment on above: Performed By: #### L IPA, CMP, HSTROPN #### [facility] [address] [address] [address] Oh Trotter Bilirubin [Mass/Vol] 0.4 mg/dL Normal 0.2-1.0 [facility] Comment on above: Performed By: #### L IPA, CMP, HSTROPN #### [facility] [address] [address] [address] Oh Trotter Calcium [Mass/Vol] 8.9 mg/dL Normal 8.5-10.1 [facility] Comment on above: Performed By: #### L IPA, CMP, HSTROPN #### [facility] [address] [address] [address] Oh Trotter Chloride [Moles/Vol] 105 mmol/L Normal 98-107 [facility] Comment on above: Performed By: #### L IPA, CMP, HSTROPN #### [facility] [address] [address] [address] Oh Trotter CO2 [Moles/Vol] 24.7 mmol/L Normal 21.0-32.0 [facility] Comment on above: Performed By: #### L IPA, CMP, HSTROPN #### [facility] [address] [address] [address] Oh Trotter Creatinine [Mass/Vol] 0.88 mg/dL Normal 0.70-1.30 [facility] Comment on above: Performed By: #### L IPA, CMP, HSTROPN #### [facility] [address] [address] [address] Oh Trotter EGFR-AF COSTA RICAN >60 Normal >=60 [facility] Comment on above: Performed By: #### L IPA, CMP, HSTROPN #### [facility] [address] [address] [address] Oh Trotter EGFR-NON AF COSTA RICAN >60 Normal >=60 [facility] Comment on above: Performed By: #### L IPA, CMP, HSTROPN #### [facility] [address] [place] [address] Dr. Oh Trotter Globulin (S) [Mass/Vol] 4.8 g/dL Normal [facility] Comment on above: Performed By: #### L IPA, CMP, HSTROPN #### [facility] [address] [address] [address] Oh Trotter Glucose [Mass/Vol] 113 mg/dL Critically high 74-106 [facility] Comment on above: Performed By: #### L IPA, CMP, HSTROPN #### [facility] [address] [place] [address] Dr. Oh Trotter Potassium [Moles/Vol] 4.0 mmol/L Normal 3.5-5.1 [facility] Comment on above: Performed By: #### L IPA, CMP, HSTROPN #### [facility] [address] [address] [address] Oh Trotter Protein [Mass/Vol] 8.3 g/dL Critically high 6.4-8.2 [facility] Comment on above: Performed By: #### L IPA, CMP, HSTROPN #### [facility] [address] [address] [address] Oh Trotter Sodium [Moles/Vol] 139 mmol/L Normal 136-145 [facility] Comment on above: Performed By: #### L IPA, CMP, HSTROPN #### [facility] [address] [address] [address] Oh Trotter Urea nitrogen [Mass/Vol] 15.0 mg/dL Normal 7.0-18.0 [facility] Comment on above: Performed By: #### L IPA, CMP, HSTROPN #### [facility] [address] [address] [address] Oh Trotter Urea nitrogen/Creatinine [Mass ratio] 17.0 mg/mg Normal [facility] Comment on above: Performed By: #### L IPA, CMP, HSTROPN #### [facility] [address] [address] [address] Oh Trotter XR ABD FLAT UP_PA [...] VERA SETHI Date: 2022-07-28 22:14 Normal [facility] CBC AUTO DIFFon 07-28-2022 BASO # 0.0 103/ul Normal 0.0-0.1 [facility] Comment on above: Performed By: #### L IPA, CMP, HSTROPN #### [facility] [address] [place] [address] Dr. Oh Trotter Basophils/100 WBC (Bld) 0.2 % Normal 0.2-2.0 [facility] Comment on above: Performed By: #### L IPA, CMP, HSTROPN #### [facility] [address] [place] [address] Dr. Oh Trotter EO # 0.1 103/ul Normal 0.0-0.7 [facility] Comment on above: Performed By: #### L IPA, CMP, HSTROPN #### [facility] [address] [place] [address] Dr. Oh Trotter Eosinophils/100 WBC (Bld) 0.9 % Normal 0.9-7.0 [facility] Comment on above: Performed By: #### L IPA, CMP, HSTROPN #### [facility] [address] [place] [address] Dr. Oh Trotter Erythrocyte distribution width (RBC) [Ratio] 12.4 % Normal 11.0-15.0 [facility] Comment on above: Performed By: #### L IPA, CMP, HSTROPN #### [facility] [address] [place] [address] Dr. Oh Trotter Hematocrit (Bld) [Volume fraction] 44.8 % Normal 42.0-54.0 [facility] Comment on above: Performed By: #### L IPA, CMP, HSTROPN #### [facility] [address] [place] [address] Dr. Oh Trotter Hemoglobin (Bld) [Mass/Vol] 15.7 g/dL Normal 14.0-18.0 [facility] Comment on above: Performed By: #### L IPA, CMP, HSTROPN #### [facility] [address] [address] [address] Oh Trotter IG # 0.02 10e3/ul Normal 0.00-0.03 [facility] Comment on above: Performed By: #### L IPA, CMP, HSTROPN #### [facility] [address] [address] [address] Oh Trotter IG % 0.2 % Normal 0.0-0.5 [facility] Comment on above: Performed By: #### L IPA, CMP, HSTROPN #### [facility] [address] [place] [address] Dr. Oh Trotter LYMPH # 3.2 103/ul Normal 1.2-3.8 [facility] Comment on above: Performed By: #### L IPA, CMP, HSTROPN #### [facility] [address] [place] [address] Dr. Oh Trotter Lymphocytes/100 WBC (Bld) 39.2 % Normal 20.5-60.0 [facility] Comment on above: Performed By: #### L IPA, CMP, HSTROPN #### [facility] [address] [address] [address] Oh Trotter MANUAL DIFF REQ NO Normal [facility] Comment on above: Performed By: #### L IPA, CMP, HSTROPN #### [facility] [address] [place] [address] Dr. Oh Trotter MCH (RBC) [Entitic mass] 29.3 pg Normal 25.9-34.0 [facility] Comment on above: Performed By: #### L IPA, CMP, HSTROPN #### [facility] [address] [place] [address] Dr. Oh Trotter MCHC (RBC) [Mass/Vol] 35.0 g/dL Normal 29.9-35.2 [facility] Comment on above: Performed By: #### L IPA, CMP, HSTROPN #### [facility] [address] [place] [address] Dr. Oh Trotter MCV (RBC) [Entitic vol] 83.7 fL Normal 80.0-94.0 [facility] Comment on above: Performed By: #### L IPA, CMP, HSTROPN #### [facility] [address] [place] [address] Dr. Oh Trotter MONO # 0.6 103/ul Normal 0.3-0.8 [facility] Comment on above: Performed By: #### L IPA, CMP, HSTROPN #### [facility] [address] [place] [address] Dr. Oh Trotter Monocytes/100 WBC (Bld) 7.5 % Normal 1.7-12.0 [facility] Comment on above: Performed By: #### L IPA, CMP, HSTROPN #### [facility] [address] [place] [address] Dr. Oh Trotter NEUT # 4.3 103/ul Normal 1.4-6.5 [facility] Comment on above: Performed By: #### L IPA, CMP, HSTROPN #### [facility] [address] [place] [address] Dr. Oh Trotter Neutrophils/100 WBC (Bld) 52.0 % Normal 43.0-75.0 [facility] Comment on above: Performed By: #### L IPA, CMP, HSTROPN #### [facility] [address] [place] [address] Dr. Oh Trotter Platelet mean volume (Bld) [Entitic vol] 9.8 fL Normal 9.5-13.5 [facility] Comment on above: Performed By: #### L IPA, CMP, HSTROPN #### [facility] [address] [place] [address] Dr. Oh Trotter PLT 210 103/ul Normal 150-450 [facility] Comment on above: Performed By: #### L IPA, CMP, HSTROPN #### [facility] [address] [place] [address] Dr. Oh Trotter RBC 5.35 106/ul Normal 4.70-6.10 [facility] Comment on above: Performed By: #### L IPA, CMP, HSTROPN #### [facility] [address] [address] [address] Oh Trotter WBC 8.2 103/ul Normal 4.0-11.0 [facility] Comment on above: Performed By: #### L IPA, CMP, HSTROPN #### [facility] [address] [address] [address] Oh Trotter OCC BLD IMMUNOASSAYon 2022 OCCULT BLOOD Positive Abnormal NEGATIVE [facility] Comment on above: Performed By: #### P TT, PT #### [facility] [address] [place] [address] Dr. Oh Trotter PROF 14(COMP METB)on 023 Albumin [Mass/Vol] 3.9 g/dL Normal 3.4-5.0 [facility] Comment on above: Performed By: #### L IPA, CMP, HSTROPN #### [facility] [address] [place] [address] Dr. Oh Trotter Albumin/Globulin [Mass ratio] 0.9 {ratio} Normal [facility] Comment on above: Performed By: #### L IPA, CMP, HSTROPN #### [facility] [address] [place] [address] Dr. Oh Trotter ALP [Catalytic activity/Vol] 98 U/L Normal 46-116 [facility] Comment on above: Performed By: #### L IPA, CMP, HSTROPN #### [facility] [address] [address] [address] Oh Trotter ALT [Catalytic activity/Vol] 47 U/L Normal 16-63 [facility] Comment on above: Performed By: #### L IPA, CMP, HSTROPN #### [facility] [address] [place] [address] Dr. Oh Trotter Anion gap [Moles/Vol] 13.8 mmol/L Normal [facility] Comment on above: Performed By: #### L IPA, CMP, HSTROPN #### [facility] [address] [place] [address] Dr. Oh Trotter AST [Catalytic activity/Vol] 18 U/L Normal 15-37 [facility] Comment on above: Performed By: #### L IPA, CMP, HSTROPN #### [facility] [address] [place] [address] Dr. Oh Trotter Bilirubin [Mass/Vol] 0.3 mg/dL Normal 0.2-1.0 [facility] Comment on above: Performed By: #### L IPA, CMP, HSTROPN #### [facility] [address] [place] [address] Dr. Oh Trotter Calcium [Mass/Vol] 8.8 mg/dL Normal 8.5-10.1 [facility] Comment on above: Performed By: #### L IPA, CMP, HSTROPN #### [facility] [address] [place] [address] Dr. Oh Trotter Chloride [Moles/Vol] 105 mmol/L Normal 98-107 [facility] Comment on above: Performed By: #### L IPA, CMP, HSTROPN #### [facility] [address] [place] [address] Dr. Oh Trotter CO2 [Moles/Vol] 25.2 mmol/L Normal 21.0-32.0 [facility] Comment on above: Performed By: #### L IPA, CMP, HSTROPN #### [facility] [address] [place] [address] Dr. Oh Trotter Creatinine [Mass/Vol] 1.02 mg/dL Normal 0.70-1.30 [facility] Comment on above: Performed By: #### L IPA, CMP, HSTROPN #### [facility] [address] [place] [address] Dr. Oh Trotter EGFR-AF COSTA RICAN >60 Normal >=60 [facility] Comment on above: Performed By: #### L IPA, CMP, HSTROPN #### [facility] [address] [place] [address] Dr. Oh Trotter EGFR-NON AF COSTA RICAN >60 Normal >=60 [facility] Comment on above: Performed By: #### L IPA, CMP, HSTROPN #### [facility] [address] [address] [address] Oh Trotter Globulin (S) [Mass/Vol] 4.2 g/dL Normal [facility] Comment on above: Performed By: #### L IPA, CMP, HSTROPN #### [facility] [address] [address] [address] Oh Trotter Glucose [Mass/Vol] 104 mg/dL Normal 74-106 [facility] Comment on above: Performed By: #### L IPA, CMP, HSTROPN #### [facility] [address] [address] [address] Oh Trotter Potassium [Moles/Vol] 4.0 mmol/L Normal 3.5-5.1 [facility] Comment on above: Performed By: #### L IPA, CMP, HSTROPN #### [facility] [address] [address] [address] Oh Trotter Protein [Mass/Vol] 8.1 g/dL Normal 6.4-8.2 [facility] Comment on above: Performed By: #### L IPA, CMP, HSTROPN #### [facility] [address] [address] [address] Oh Trotter Sodium [Moles/Vol] 140 mmol/L Normal 136-145 [facility] Comment on above: Performed By: #### L IPA, CMP, HSTROPN #### [facility] [address] [address] [address] Oh Trotter Urea nitrogen [Mass/Vol] 16.0 mg/dL Normal 7.0-18.0 [facility] Comment on above: Performed By: #### L IPA, CMP, HSTROPN #### [facility] [address] [address] [address] Oh Trotter Urea nitrogen/Creatinine [Mass ratio] 15.7 mg/mg Normal [facility] Comment on above: Performed By: #### L IPA, CMP, HSTROPN #### [facility] [address] [address] [address] Oh Trotter PROTIMEon 07-28-2022 INR Coag (PPP) [Relative time] {INR} Normal [facility] Comment on above: Performed By: #### P TT, PT #### [facility] [address] [place] [address] Dr. Oh Trotter INR GUIDELINES SEE BELOW Normal [facility] Comment on above: Result Comment: ADITHYA RED INR: 2.0 - 3.0 CONDITIONS NOT LISTED BELOW 2.5 - 3.5 FOR PROSTHETIC HEART VALVE REPLACEMENT 2.5 - 3.5 RECURRENT THROMBOSIS Performed By: #### P TT, PT #### [facility] [address] [place] [address] Dr. Oh Trotter PT Coag (PPP) [Time] 9.8 s Normal 9.0-11.6 [facility] Comment on above: Performed By: #### P TT, PT #### [facility] [address] [place] [address] Dr. Oh Trotter PTTon 07-28-2022 aPTT Coag (Bld) [Time] 26.6 s Normal 22.3-36.2 [facility] Comment on above: Performed By: #### P TT, PT #### [facility] [address] [place] [address] Dr. Oh Trotter Outside Colonoscopyon 2022 Outside Colonoscopy [id number] 0CD:127 Normal [facility] Pre-Certification Formon Pre-Certification Form [id number]. 00CD:127 Normal [facility] Consent for Procedure/Surger yon 06-05-2022 Consent for Procedure/Surgery [id number] 0CD:127 Normal [facility] Facesheeton 06-04-2022 Facesheet [id number] 20 [id number]#1.0 0CD:127 [facility] Ambulatory Visit Summaryon 0 06-03-2022 Ambulatory Visit [...] with mild panic attacks Rectal bleeding Smoker Zpjer-Evtcpmhbm-Bhcak syndrome Historical - Any problem that you are no longer receiving treatment for. Atrial fibrillation Epididymitis Nocturia Scrotal pain Normal [facility] Physician Referralon 023 Physician Referral [id number] 0CD:127 Normal [facility] SARS-CoV-2 (COVID-19) RNA SHAE+probe Ql (Unsp spec) Not detected Normal NOT DETECTED [facility] Comment on above: Result Comment: This test is not yet approved or cleared by the [place] FDA. When there are no FDA-approved or cleared tests available, and other criteria are met, FDA can make tests available under an emergency access mechanism called an Emergency Use Authorization (EUA). The EUA for this test is supported by the Sweater Designer of Health and Human Service's (HHS's) declaration [...] Performed By: #### P TT, PT #### [facility] [address] [address] [address] Oh Trotter INFLUENZA A AND B [facility]on 05[facility] BEL[facility] Normal [facility] Comment on above: Result Comment: Nega tive for Flu A protein angiten. Infection due to Flu A cannot be ruled out. Flu A angiten in the sample may be below the detection limit of the test. Performed By: #### L IPA, CMP, HSTROPN #### [facility] [address] [address] [address] Oh [facility] Normal [facility] Comment on above: Result Comment: Nega tive for Flu B protein antigen. Infection due to Flu B cannot be ruled out. Flu B antigen in the sample may be below the detection limit of the test. Performed By: #### L IPA, CMP, HSTROPN #### [facility] [address] [place] [address] Dr. Oh Trotter INFLUENZA A AG Negative Normal NEGATIVE SEE COMMENT [facility] Comment on above: Performed By: #### L IPA, CMP, HSTROPN #### [facility] [address] [place] [address] Dr. Oh Trotter INFLUENZA B AG Negative Normal NEGATIVE SEE COMMENT [facility] Comment on above: Performed By: #### L IPA, CMP, HSTROPN #### [facility] [address] [place] [address] Dr. Oh Trotter CBC AUTO DIFFon 03-06-2022 BASO # 0.0 103/ul Normal 0.0-0.1 [facility] Comment on above: Performed By: #### P TT, PT #### [facility] [address] [place] [address] Dr. Oh Trotter Basophils/100 WBC (Bld) 0.2 % Normal 0.2-2.0 [facility] Comment on above: Performed By: #### P TT, PT #### [facility] [address] [place] [address] Dr. Oh Trotter EO # 0.0 103/ul Normal 0.0-0.7 [facility] Comment on above: Performed By: #### P TT, PT #### [facility] [address] [place] [address] Dr. Oh Trotter Eosinophils/100 WBC (Bld) 0.4 % Critically low 0.9-7.0 [facility] Comment on above: Performed By: #### P TT, PT #### [facility] [address] [place] [address] Dr. Oh Trotter Erythrocyte distribution width (RBC) [Ratio] 12.2 % Normal 11.0-15.0 [facility] Comment on above: Performed By: #### P TT, PT #### [facility] [address] [place] [address] Dr. Oh Trotter Hematocrit (Bld) [Volume fraction] 45.7 % Normal 42.0-54.0 [facility] Comment on above: Performed By: #### P TT, PT #### [facility] [address] [place] [address] Dr. Oh Trotter Hemoglobin (Bld) [Mass/Vol] 16.0 g/dL Normal 14.0-18.0 [facility] Comment on above: Performed By: #### P TT, PT #### [facility] [address] [place] [address] Dr. Oh Trotter IG # 0.04 10e3/ul Critically high 0.00-0.03 [facility] Comment on above: Performed By: #### P TT, PT #### [facility] [address] [place] [address] Dr. Oh Trotter IG % 0.4 % Normal 0.0-0.5 [facility] Comment on above: Performed By: #### P TT, PT #### [facility] [address] [place] [address] Dr. Oh Trotter LYMPH # 2.8 103/ul Normal 1.2-3.8 [facility] Comment on above: Performed By: #### P TT, PT #### [facility] [address] [place] [address] Dr. Oh Trotter Lymphocytes/100 WBC (Bld) 29.5 % Normal 20.5-60.0 [facility] Comment on above: Performed By: #### P TT, PT #### [facility] [address] [place] [address] Dr. Oh Trotter MANUAL DIFF REQ NO Normal [facility] Comment on above: Performed By: #### P TT, PT #### [facility] [address] [place] [address] Dr. Oh Trotter MCH (RBC) [Entitic mass] 29.7 pg Normal 25.9-34.0 [facility] Comment on above: Performed By: #### P TT, PT #### [facility] [address] [address] [address] Oh Trotter MCHC (RBC) [Mass/Vol] 35.0 g/dL Normal 29.9-35.2 [facility] Comment on above: Performed By: #### P TT, PT #### [facility] [address] [place] [address] Dr. Oh Trotter MCV (RBC) [Entitic vol] 84.8 fL Normal 80.0-94.0 [facility] Comment on above: Performed By: #### P TT, PT #### [facility] [address] [place] [address] Dr. Oh Trotter MONO # 0.5 103/ul Normal 0.3-0.8 [facility] Comment on above: Performed By: #### P TT, PT #### [facility] [address] [place] [address] Dr. Oh Trotter Monocytes/100 WBC (Bld) 5.2 % Normal 1.7-12.0 [facility] Comment on above: Performed By: #### P TT, PT #### [facility] [address] [place] [address] Dr. Oh Trotter NEUT # 6.2 103/ul Normal 1.4-6.5 [facility] Comment on above: Performed By: #### P TT, PT #### [facility] [address] [place] [address] Dr. Oh Trotter Neutrophils/100 WBC (Bld) 64.3 % Normal 43.0-75.0 [facility] Comment on above: Performed By: #### P TT, PT #### [facility] [address] [place] [address] Dr. Oh Trotter Platelet mean volume (Bld) [Entitic vol] 9.9 fL Normal 9.5-13.5 [facility] Comment on above: Performed By: #### P TT, PT #### [facility] [address] [place] [address] Dr. Oh Trotter PLT 196 103/ul Normal 150-450 [facility] Comment on above: Performed By: #### P TT, PT #### [facility] [address] [place] [address] Dr. Oh Trotter RBC 5.39 106/ul Normal 4.70-6.10 [facility] Comment on above: Performed By: #### P TT, PT #### [facility] [address] [place] [address] Dr. Oh Trotter WBC 9.6 103/ul Normal 4.0-11.0 [facility] Comment on above: Performed By: #### P TT, PT #### [facility] [address] [place] [address] Dr. Oh Trotter D-DIMERon 03-06-2022 D-DIMER <0.19 Normal <=0.59 [facility] Comment on above: Performed By: #### P TT, PT #### [facility] [address] [place] [address] Dr. Oh Trotter D-DIMER COMMENTS SEE BELOW Normal [facility] Comment on above: Result Comment: Incr [...] Performed By: #### P TT, PT #### [facility] [address] [place] [address] Dr. Oh Trotter ER URINE PROFILEon 2 Bilirubin Ql (U) Negative Normal NEGATIVE [facility] Comment on above: Performed By: #### MATHIEU STONERRO #### [facility] [address] [place] [address] Dr. Oh Trotter Clarity (U) CLEAR Normal CLEAR [facility] Comment on above: Performed By: #### E MATHIEU GLOVERRO #### [facility] [address] [place] [address] Dr. Oh Trotter Color (U) LT. YELLOW Normal YELLOW [facility] Comment on above: Performed By: #### Marcelo GLOVER UMICRO #### [facility] [address] [place] [address] Dr. Oh OLIVA A micrscopic examination will be performed if indicated. Normal [facility] Comment on above: Performed By: #### Marcelo GLOVER UMICRO #### [facility] [address] [place] [address] Dr. Oh Trotter Glucose Ql (U) Negative Normal NEGATIVE [facility] Comment on above: Performed By: #### Marcelo GLOVER UMICRO #### [facility] [address] [place] [address] Dr. Oh Trotter Hemoglobin Ql (U) SMALL Abnormal NEGATIVE [facility] Comment on above: Performed By: #### Marcelo GLOVER UMICRO #### [facility] [address] [place] [address] Dr. Oh Trotter Ketones Ql (U) Negative Normal NEGATIVE [facility] Comment on above: Performed By: #### Marcelo GLOVER UMICRO #### [facility] [address] [place] [address] Dr. Oh Trotter LEUKOCYTES Negative Normal NEGATIVE [facility] Comment on above: Performed By: #### Marcelo GLOVER UMICRO #### [facility] [address] [place] [address] Dr. Oh Trotter Nitrite Ql (U) Negative Normal NEGATIVE [facility] Comment on above: Performed By: #### Marcelo GLOVER UMICRO #### [facility] [address] [place] [address] Dr. Oh Trotter pH (U) 6.0 [pH] Normal 5-9 [facility] Comment on above: Performed By: #### Marcelo GLOVER UMICRO #### [facility] [address] [place] [address] Dr. Oh Trotter SPEC GRAVITY 1.025 Normal 1.005-<=1.025 [facility] Comment on above: Performed By: #### MATHIEU STONERRO #### [facility] [address] [place] [address] Dr. Oh Trotter UA PROTEIN Negative Normal NEGATIVE/ TRACE [facility] Comment on above: Performed By: #### E MATHIEU GLOVERRO #### [facility] [address] [place] [address] Dr. Oh Trotter UR MICRO IND INDICATED Normal [facility] Comment on above: Performed By: #### MATHIEU STONERRO #### [facility] [address] [place] [address] Dr. Oh Trotter Urobilinogen Qn (U) 0.2 {Federico'U}/dL Normal 0.2 - 1. 0 [facility] Comment on above: Performed By: #### OSVALDO STONER #### [facility] [address] [place] [address] Dr. Oh Trotter LIPASEon 03-06-2022 Lipase [Catalytic activity/Vol] 125.0 U/L Normal 73.0-393.0 [facility] Comment on above: Performed By: #### L IPA, CMP, HSTROPN #### [facility] [address] [place] [address] Dr. Oh Trotter PROF 14(COMP METB)on 022 Albumin [Mass/Vol] 3.8 g/dL Normal 3.4-5.0 [facility] Comment on above: Performed By: #### L IPA, CMP, HSTROPN #### [facility] [address] [place] [address] Dr. Oh Trotter Albumin/Globulin [Mass ratio] 0.8 {ratio} Normal [facility] Comment on above: Performed By: #### L IPA, CMP, HSTROPN #### [facility] [address] [place] [address] Dr. Oh Trotter ALP [Catalytic activity/Vol] 77 U/L Normal 46-116 [facility] Comment on above: Performed By: #### L IPA, CMP, HSTROPN #### [facility] [address] [place] [address] Dr. Oh Trotter ALT [Catalytic activity/Vol] 39 U/L Normal 16-63 [facility] Comment on above: Performed By: #### L IPA, CMP, HSTROPN #### [facility] [address] [address] [address] Oh Trotter Anion gap [Moles/Vol] 9.3 mmol/L Normal [facility] Comment on above: Performed By: #### L IPA, CMP, HSTROPN #### [facility] [address] [address] [address] Oh Trotter AST [Catalytic activity/Vol] 21 U/L Normal 15-37 [facility] Comment on above: Performed By: #### L IPA, CMP, HSTROPN #### [facility] [address] [address] [address] Oh Trotter Bilirubin [Mass/Vol] 0.4 mg/dL Normal 0.2-1.0 [facility] Comment on above: Performed By: #### L IPA, CMP, HSTROPN #### [facility] [address] [address] [address] Oh Trotter Calcium [Mass/Vol] 9.2 mg/dL Normal 8.5-10.1 [facility] Comment on above: Performed By: #### L IPA, CMP, HSTROPN #### [facility] [address] [address] [address] Oh Trotter Chloride [Moles/Vol] 102 mmol/L Normal 98-107 [facility] Comment on above: Performed By: #### L IPA, CMP, HSTROPN #### [facility] [address] [address] [address] Oh Trotter CO2 [Moles/Vol] 26.6 mmol/L Normal 21.0-32.[address] [facility] Comment on above: Performed By: #### L IPA, CMP, HSTROPN #### [facility] [address] [address] [address] Oh Trotter Creatinine [Mass/Vol] 1.08 mg/dL Normal 0.70-1.30 [facility] Comment on above: Performed By: #### L IPA, CMP, HSTROPN #### [facility] [address] [address] [address] Oh Trotter EGFR-AF COSTA RICAN >60 Normal >=60 [facility] Comment on above: Performed By: #### L IPA, CMP, HSTROPN #### [facility] [address] [address] [address] Oh Trotter EGFR-NON AF CO[place] RICAN >60 Normal >=60 [facility] Comment on above: Performed By: #### L IPA, CMP, HSTROPN #### [facility] [address] [place] [address] Dr. Oh Trotter Globulin (S) [Mass/Vol] 4.7 g/dL Normal [facility] Comment on above: Performed By: #### L IPA, CMP, HSTROPN #### [facility] [address] [place] [address] Dr. Oh Trotter Glucose [Mass/Vol] 103 mg/dL Normal 74-106 [facility] Comment on above: Performed By: #### L IPA, CMP, HSTROPN #### [facility] [address] [place] [address] Dr. Oh Trotter Potassium [Moles/Vol] 3.9 mmol/L Normal 3.5-5.1 [facility] Comment on above: Performed By: #### L IPA, CMP, HSTROPN #### [facility] [address] [address] [address] Oh Trotter Protein [Mass/Vol] 8.5 g/dL Critically high 6.4-8.2 [facility] Comment on above: Performed By: #### L IPA, CMP, HSTROPN #### [facility] [address] [place] [address] Dr. Oh Trotter Sodium [Moles/Vol] 134 mmol/L Critically low 136-145 [facility] Comment on above: Performed By: #### L IPA, CMP, HSTROPN #### [facility] [address] [place] [address] Dr. Oh Trotter Urea nitrogen [Mass/Vol] 20.0 mg/dL Critically high 7.0-18.0 [facility] Comment on above: Performed By: #### L IPA, CMP, HSTROPN #### [facility] [address] [place] [address] Dr. Oh Trotter Urea nitrogen/Creatinine [Mass ratio] 18.5 mg/mg Normal [facility] Comment on above: Performed By: #### L IPA, CMP, HSTROPN #### [facility] [address] [place] [address] Dr. Oh Trotter PROTIMEon 03-06-2022 INR Coag (PPP) [Relative time] 1.00 {INR} Normal [facility] Comment on above: Performed By: #### P TT, PT #### [facility] [address] [place] [address] Dr. Oh Trotter INR GUIDELINES SEE BELOW Normal [facility] Comment on above: Result Comment: ADITHYA RED INR: 2.0 - 3.0 CONDITIONS NOT LISTED BELOW 2.5 - 3.5 FOR PROSTHETIC HEART VALVE REPLACEMENT 2.5 - 3.5 RECURRENT THROMBOSIS Performed By: #### P TT, PT #### [facility] [address] [place] [address] Dr. Oh Trotter PT Coag (PPP) [Time] 10.8 s Normal 9.0-11.6 [facility] Comment on above: Performed By: #### P TT, PT #### [facility] [address] [place] [address] Dr. Oh Trotter PTTon 03-06-2022 aPTT Coag (Bld) [Time] 27.9 s Normal 22.3-36.2 [facility] Comment on above: Performed By: #### P TT, PT #### [facility] [address] [place] [address] Dr. Oh Trotter TROPONIN, HIGH SENSITIVITYon 03-06-2022 HSTROP 7.9 pg/mL Normal 4.0-76.1 [facility] Comment on above: Result Comment: CUT- OFF POINTS HAVE BEEN ESTABLISHED BASED ON THE FOURTH UNIVERSAL DEFINITIONS OF MYOCARDIAL INFARCTION. THE UPPER REFERENCE LIMIT (URL) OF TROPONIN, DEFINED THE 99TH PERCENTILE OF cTnI DISTRIBUTION IN A REFERENCE POPULATION, HAS BEEN CONFIRMED THE DECISION THRESHOLD FOR MD DIAGNOSIS. Performed By: #### L IPA, CMP, HSTROPN #### [facility] [address] [place] [address] Dr. Oh Trotter URINE MICROSCOPIC ONLYon BACTERIA NONE SEEN Normal NONE SEEN [facility] Comment on above: Performed By: #### E RUR, UMICRO #### [facility] [address] [place] [address] Dr. Oh Trotter Bacteria identified Cx Nom (U) NOT INDICATED Normal [facility] Comment on above: Performed By: #### E RUR, UMICRO #### [facility] [address] [place] [address] Dr. Oh Trotter CAST NONE SEEN Normal NONE SEEN [facility] Comment on above: Performed By: #### E JUNER, UMICRO #### [facility] [address] [place] [address] Dr. Oh Trotter Crystals LM Nom (Urine sed) NONE SEEN Normal NONE SEEN [facility] Comment on above: Performed By: #### E RUR, UMICRO #### [facility] [address] [place] [address] Dr. Oh Trotter Epithelial cells LM Ql (Urine sed) FEW Abnormal NONE SEEN /RARE [facility] Comment on above: Performed By: #### E RUR, UMICRO #### [facility] [address] [place] [address] Dr. Oh Trotter MUCOUS MODERATE Abnormal NONE SEEN [facility] Comment on above: Performed By: #### E ADALBERTO, UMICRO #### [facility] [address] [place] [address] Dr. Oh Trotter RBC 0-2 Normal 0-2 [facility] Comment on above: Performed By: #### E RUR, UMICRO #### [facility] [address] [place] [address] Dr. Oh Trotter WBC NONE SEEN Normal NONE SEEN [facility] Comment on above: Performed By: #### E RUR, AUBRIEICRO #### [facility] [address] [address] [address] Oh Trotter XR ABD FLAT UP_PA [...] LUCY JEWELL Date: 2022-03-06 15:55 Normal [facility] XR CSPINE 2_3 VIEWSon 2021 XR CSPINE [...] LUCY JEWELL Date: 2022-03-06 15:54 Normal [facility] CBC AUTO DIFFon 11-02-2021 BASO # 0.0 103/ul Normal 0.0-0.1 [facility] Comment on above: Performed By: #### L IPA, CMP, HSTROPN #### [facility] [address] [address] [address] Oh Trotter Basophils/100 WBC (Bld) 0.2 % Normal 0.2-2.0 [facility] Comment on above: Performed By: #### L IPA, CMP, HSTROPN #### [facility] [address] [address] [address] Oh Trotter EO # 0.1 103/ul Normal 0.0-0.7 [facility] Comment on above: Performed By: #### L IPA, CMP, HSTROPN #### [facility] [address] [place] [address] Dr. Oh Trotter Eosinophils/100 WBC (Bld) 1.0 % Normal 0.9-7.0 [facility] Comment on above: Performed By: #### L IPA, CMP, HSTROPN #### [facility] [address] [address] [address] Oh Trotter Erythrocyte distribution width (RBC) [Ratio] 13.0 % Normal 11.0-15.0 [facility] Comment on above: Performed By: #### L IPA, CMP, HSTROPN #### [facility] [address] [place] [address] Dr. Oh Trotter Hematocrit (Bld) [Volume fraction] 46.6 % Normal 42.0-54.0 [facility] Comment on above: Performed By: #### L IPA, CMP, HSTROPN #### [facility] [address] [place] [address] Dr. Oh Trotter Hemoglobin (Bld) [Mass/Vol] 15.8 g/dL Normal 14.0-18.0 [facility] Comment on above: Performed By: #### L IPA, CMP, HSTROPN #### [facility] [address] [place] [address] Dr. Oh Trotter IG # 0.02 10e3/ul Normal 0.00-0.03 [facility] Comment on above: Performed By: #### L IPA, CMP, HSTROPN #### [facility] [address] [place] [address] Dr. Oh Trotter IG % 0.2 % Normal 0.0-0.5 [facility] Comment on above: Performed By: #### L IPA, CMP, HSTROPN #### [facility] [address] [place] [address] Dr. Oh Trotter LYMPH # 1.6 103/ul Normal 1.2-3.8 [facility] Comment on above: Performed By: #### L IPA, CMP, HSTROPN #### [facility] [address] [place] [address] Dr. Oh Trotter Lymphocytes/100 WBC (Bld) 15.3 % Critically low 20.5-60.0 [facility] Comment on above: Performed By: #### L IPA, CMP, HSTROPN #### [facility] [address] [place] [address] Dr. Oh Trotter MANUAL DIFF REQ NO Normal [facility] Comment on above: Performed By: #### L IPA, CMP, HSTROPN #### [facility] [address] [place] [address] Dr. Oh Trotter MCH (RBC) [Entitic mass] 30.1 pg Normal 25.9-34.0 [facility] Comment on above: Performed By: #### L IPA, CMP, HSTROPN #### [facility] [address] [place] [address] Dr. Oh Trotter MCHC (RBC) [Mass/Vol] 33.9 g/dL Normal 29.9-35.2 [facility] Comment on above: Performed By: #### L IPA, CMP, HSTROPN #### [facility] [address] [place] [address] Dr. Oh Trotter MCV (RBC) [Entitic vol] 88.8 fL Normal 80.0-94.0 [facility] Comment on above: Performed By: #### L IPA, CMP, HSTROPN #### [facility] [address] [place] [address] Dr. Oh Trotter MONO # 0.7 103/ul Normal 0.3-0.8 [facility] Comment on above: Performed By: #### L IPA, CMP, HSTROPN #### [facility] [address] [place] [address] Dr. Oh Trotter Monocytes/100 WBC (Bld) 6.8 % Normal 1.7-12.0 [facility] Comment on above: Performed By: #### L IPA, CMP, HSTROPN #### [facility] [address] [address] [address] Oh Trotter NEUT # 7.9 103/ul Critically high 1.4-6.5 [facility] Comment on above: Performed By: #### L IPA, CMP, HSTROPN #### [facility] [address] [place] [address] Dr. Oh Trotter Neutrophils/100 WBC (Bld) 76.5 % Critically high 43.0-75.0 [facility] Comment on above: Performed By: #### L IPA, CMP, HSTROPN #### [facility] [address] [place] [address] Dr. Oh Trotter Platelet mean volume (Bld) [Entitic vol] 9.5 fL Normal 9.5-13.5 [facility] Comment on above: Performed By: #### L IPA, CMP, HSTROPN #### [facility] [address] [place] [address] Dr. Oh Trotter PLT 191 103/ul Normal 150-450 [facility] Comment on above: Performed By: #### L IPA, CMP, HSTROPN #### [facility] [address] [place] [address] Dr. Oh Trotter RBC 5.25 106/ul Normal 4.70-6.10 [facility] Comment on above: Performed By: #### L IPA, CMP, HSTROPN #### [facility] [address] [place] [address] Dr. Oh Trotter WBC 10.4 103/ul Normal 4.0-11.0 [facility] Comment on above: Performed By: #### L IPA, CMP, HSTROPN #### [facility] [address] [place] [address] Dr. Oh Trotter PROF CHEM 8 (BAS METB)on Anion gap [Moles/Vol] 9.7 mmol/L Normal [facility] Comment on above: Performed By: #### L IPA, CMP, HSTROPN #### [facility] [address] [place] [address] Dr. Oh Trotter Calcium [Mass/Vol] 8.9 mg/dL Normal 8.5-10.1 [facility] Comment on above: Performed By: #### L IPA, CMP, HSTROPN #### [facility] [address] [address] [address] Oh Trotter Chloride [Moles/Vol] 102 mmol/L Normal 98-107 [facility] Comment on above: Performed By: #### L IPA, CMP, HSTROPN #### [facility] [address] [address] [address] Oh Trotter CO2 [Moles/Vol] 29.1 mmol/L Normal 21.0-32.0 [facility] Comment on above: Performed By: #### L IPA, CMP, HSTROPN #### [facility] [address] [address] [address] Oh Trotter Creatinine [Mass/Vol] 1.10 mg/dL Normal 0.70-1.30 [facility] Comment on above: Performed By: #### L IPA, CMP, HSTROPN #### [facility] [address] [address] [address] Oh Trotter EGFR-AF COSTA RICAN >60 Normal >=60 [facility] Comment on above: Performed By: #### L IPA, CMP, HSTROPN #### [facility] [address] [address] [address] Oh Trotter EGFR-NON AF COSTA RICAN >60 Normal >=60 [facility] Comment on above: Performed By: #### L IPA, CMP, HSTROPN #### [facility] [address] [address] [address] Oh Trotter Glucose [Mass/Vol] 114 mg/dL Critically high 74-106 [facility] Comment on above: Performed By: #### L IPA, CMP, HSTROPN #### [facility] [address] [address] [address] Oh Trotter Potassium [Moles/Vol] 3.8 mmol/L Normal 3.5-5.1 [facility] Comment on above: Performed By: #### L IPA, CMP, HSTROPN #### [facility] [address] [address] [address] Oh Trotter Sodium [Moles/Vol] 137 mmol/L Normal 136-145 [facility] Comment on above: Performed By: #### L IPA, CMP, HSTROPN #### [facility] [address] [address] [address] Oh Trotter Urea nitrogen [Mass/Vol] 10.0 mg/dL Normal 7.0-18.0 [facility] Comment on above: Performed By: #### L IPA, CMP, HSTROPN #### [facility] [address] [place] [address] Dr. Oh Trotter Urea nitrogen/Creatinine [Mass ratio] 9.1 mg/mg Normal [facility] Comment on above: Performed By: #### L IPA, CMP, HSTROPN #### [facility] [address] [place] [address] Dr. Oh Trotter CARDIAC SUKUMAR ADMITon 022 CK [Catalytic activity/Vol] 97 U/L Normal 39-308 [facility] Comment on above: Performed By: #### L IPA, CMP, HSTROPN #### [facility] [address] [place] [address] Dr. Oh Trotter CK.MB [Mass/Vol] 0.75 ng/mL Normal <=3.60 [facility] Comment on above: Performed By: #### L IPA, CMP, HSTROPN #### [facility] [address] [place] [address] Dr. Oh Trotter HSTROP 4.4 pg/mL Normal 4.0-76.1 [facility] Comment on above: Result Comment: CUT- OFF POINTS HAVE BEEN ESTABLISHED BASED ON THE FOURTH UNIVERSAL DEFINITIONS OF MYOCARDIAL INFARCTION. THE UPPER REFERENCE LIMIT (URL) OF TROPONIN, DEFINED THE 99TH PERCENTILE OF cTnI DISTRIBUTION IN A REFERENCE POPULATION, HAS BEEN CONFIRMED THE DECISION THRESHOLD FOR MD DIAGNOSIS. Performed By: #### L IPA, CMP, HSTROPN #### [facility] [address] [place] [address] Dr. Oh Trotter CARON 54 ng/mL Normal 16-96 [facility] Comment on above: Performed By: #### L IPA, CMP, HSTROPN #### [facility] [address] [place] [address] Dr. Oh Trotter CBC AUTO DIFFon 10-16-2021 BASO # 0.0 103/ul Normal 0.0-0.1 [facility] Comment on above: Performed By: #### P TT, PT #### [facility] [address] [place] [address] Dr. Oh Trotter Basophils/100 WBC (Bld) 0.1 % Critically low 0.2-2.0 [facility] Comment on above: Performed By: #### P TT, PT #### [facility] [address] [place] [address] Dr. Oh Trotter EO # 0.0 103/ul Normal 0.0-0.7 [facility] Comment on above: Performed By: #### P TT, PT #### [facility] [address] [place] [address] Dr. Oh Trotter Eosinophils/100 WBC (Bld) 0.3 % Critically low 0.9-7.0 [facility] Comment on above: Performed By: #### P TT, PT #### [facility] [address] [place] [address] Dr. Oh Trotter Erythrocyte distribution width (RBC) [Ratio] 12.5 % Normal 11.0-15.0 [facility] Comment on above: Performed By: #### P TT, PT #### [facility] [address] [place] [address] Dr. Oh Trotter Hematocrit (Bld) [Volume fraction] 47.1 % Normal 42.0-54.0 [facility] Comment on above: Performed By: #### P TT, PT #### [facility] [address] [place] [address] Dr. Oh Trotter Hemoglobin (Bld) [Mass/Vol] 16.7 g/dL Normal 14.0-18.0 [facility] Comment on above: Performed By: #### P TT, PT #### [facility] [address] [place] [address] Dr. Oh Trotter IG # 0.02 10e3/ul Normal 0.00-0.03 [facility] Comment on above: Performed By: #### P TT, PT #### [facility] [address] [place] [address] Dr. Oh Trotter IG % 0.3 % Normal 0.0-0.5 [facility] Comment on above: Performed By: #### P TT, PT #### [facility] [address] [place] [address] Dr. Oh Trotter LYMPH # 2.3 103/ul Normal 1.2-3.8 [facility] Comment on above: Performed By: #### P TT, PT #### [facility] [address] [place] [address] Dr. Oh Trotter Lymphocytes/100 WBC (Bld) 31.7 % Normal 20.5-60.0 [facility] Comment on above: Performed By: #### P TT, PT #### [facility] [address] [place] [address] Dr. Oh Trotter MANUAL DIFF REQ NO Normal [facility] Comment on above: Performed By: #### P TT, PT #### [facility] [address] [place] [address] Dr. Oh Trotter MCH (RBC) [Entitic mass] 29.9 pg Normal 25.9-34.0 [facility] Comment on above: Performed By: #### P TT, PT #### [facility] [address] [place] [address] Dr. Oh Trotter MCHC (RBC) [Mass/Vol] 35.5 g/dL Critically high 29.9-35.2 [facility] Comment on above: Performed By: #### P TT, PT #### [facility] [address] [place] [address] Dr. Oh Trotter MCV (RBC) [Entitic vol] 84.4 fL Normal 80.0-94.0 [facility] Comment on above: Performed By: #### P TT, PT #### [facility] [address] [address] [address] Oh Trotter MONO # 0.4 103/ul Normal 0.3-0.8 [facility] Comment on above: Performed By: #### P TT, PT #### [facility] [address] [place] [address] Dr. Oh Trotter Monocytes/100 WBC (Bld) 4.9 % Normal 1.7-12.0 [facility] Comment on above: Performed By: #### P TT, PT #### [facility] [address] [place] [address] Dr. Oh Trotter NEUT # 4.6 103/ul Normal 1.4-6.5 [facility] Comment on above: Performed By: #### P TT, PT #### [facility] [address] [place] [address] Dr. Oh Trotter Neutrophils/100 WBC (Bld) 62.7 % Normal 43.0-75.0 [facility] Comment on above: Performed By: #### P TT, PT #### [facility] [address] [place] [address] Dr. Oh Trotter Platelet mean volume (Bld) [Entitic vol] 10.3 fL Normal 9.5-13.5 [facility] Comment on above: Performed By: #### P TT, PT #### [facility] [address] [place] [address] Dr. Oh Trotter PLT 225 103/ul Normal 150-450 [facility] Comment on above: Performed By: #### P TT, PT #### [facility] [address] [place] [address] Dr. Oh Trotter RBC 5.58 106/ul Normal 4.70-6.10 [facility] Comment on above: Performed By: #### P TT, PT #### [facility] [address] [place] [address] Dr. Oh Trotter WBC 7.3 103/ul Normal 4.0-11.0 [facility] Comment on above: Performed By: #### P TT, PT #### [facility] [address] [place] [address] Dr. Oh Trotter D-DIMERon 10-16-2021 D-DIMER <0.19 Normal <=0.59 [facility] Comment on above: Performed By: #### P TT, PT #### [facility] [address] [place] [address] Dr. Oh Trotter D-DIMER COMMENTS SEE BELOW Normal [facility] Comment on above: Result Comment: Incr [...] Performed By: #### P TT, PT #### [facility] [address] [place] [address] Dr. Oh Trotter LIPASEon 10-16-2021 Lipase [Catalytic activity/Vol] 127.0 U/L Normal 73.0-393.0 [facility] Comment on above: Performed By: #### L IPA, CMP, HSTROPN #### [facility] [address] [place] [address] Dr. Oh Trotter PROF 14(COMP METB)on 022 Albumin [Mass/Vol] 4.0 g/dL Normal 3.4-5.0 [facility] Comment on above: Performed By: #### L IPA, CMP, HSTROPN #### [facility] [address] [place] [address] Dr. Oh Trotter Albumin/Globulin [Mass ratio] 0.9 {ratio} Normal [facility] Comment on above: Performed By: #### L IPA, CMP, HSTROPN #### [facility] [address] [place] [address] Dr. hO Trotter ALP [Catalytic activity/Vol] 73 U/L Normal 46-116 [facility] Comment on above: Performed By: #### L IPA, CMP, HSTROPN #### [facility] [address] [place] [address] Dr. Oh Trotter ALT [Catalytic activity/Vol] 45 U/L Normal 16-63 [facility] Comment on above: Performed By: #### L IPA, CMP, HSTROPN #### [facility] [address] [place] [address] Dr. Oh Trotter Anion gap [Moles/Vol] 15.4 mmol/L Normal [facility] Comment on above: Performed By: #### L IPA, CMP, HSTROPN #### [facility] [address] [place] [address] Dr. Oh Trotter AST [Catalytic activity/Vol] 25 U/L Normal 15-37 [facility] Comment on above: Performed By: #### L IPA, CMP, HSTROPN #### [facility] [address] [place] [address] Dr. Oh Trotter Bilirubin [Mass/Vol] 0.9 mg/dL Normal 0.2-1.0 [facility] Comment on above: Performed By: #### L IPA, CMP, HSTROPN #### [facility] [address] [place] [address] Dr. Oh Trotter Calcium [Mass/Vol] 9.3 mg/dL Normal 8.5-10.1 [facility] Comment on above: Performed By: #### L IPA, CMP, HSTROPN #### [facility] [address] [place] [address] Dr. Oh Trotter Chloride [Moles/Vol] 103 mmol/L Normal 98-107 [facility] Comment on above: Performed By: #### L IPA, CMP, HSTROPN #### [facility] [address] [place] [address] Dr. Oh Trotter CO2 [Moles/Vol] 20.4 mmol/L Critically low 21.0-32.0 [facility] Comment on above: Performed By: #### L IPA, CMP, HSTROPN #### [facility] [address] [address] [address] Oh Trotter Creatinine [Mass/Vol] 1.17 mg/dL Normal 0.70-1.30 [facility] Comment on above: Performed By: #### L IPA, CMP, HSTROPN #### [facility] [address] [address] [address] Oh Trotter EGFR-AF COSTA RICAN >60 Normal >=60 [facility] Comment on above: Performed By: #### L IPA, CMP, HSTROPN #### [facility] [address] [address] [address] Oh Trotter EGFR-NON AF COSTA RICAN >60 Normal >=60 [facility] Comment on above: Performed By: #### L IPA, CMP, HSTROPN #### [facility] [address] [place] [address] Dr. Oh Trotter Globulin (S) [Mass/Vol] 4.6 g/dL Normal [facility] Comment on above: Performed By: #### L IPA, CMP, HSTROPN #### [facility] [address] [address] [address] Oh Trotter Glucose [Mass/Vol] 127 mg/dL Critically high 74-106 [facility] Comment on above: Performed By: #### L IPA, CMP, HSTROPN #### [facility] [address] [address] [address] Oh Trotter Potassium [Moles/Vol] 3.8 mmol/L Normal 3.5-5.1 [facility] Comment on above: Performed By: #### L IPA, CMP, HSTROPN #### [facility] [address] [address] [address] Oh Trotter Protein [Mass/Vol] 8.6 g/dL Critically high 6.4-8.2 [facility] Comment on above: Performed By: #### L IPA, CMP, HSTROPN #### [facility] [address] [address] [address] Oh Trotter Sodium [Moles/Vol] 135 mmol/L Critically low 136-145 [facility] Comment on above: Performed By: #### L IPA, CMP, HSTROPN #### [facility] [address] [address] [address] Oh Trotter Urea nitrogen [Mass/Vol] 12.0 mg/dL Normal 7.0-18.0 [facility] Comment on above: Performed By: #### L IPA, CMP, HSTROPN #### [facility] [address] [address] [address] Oh Trotter Urea nitrogen/Creatinine [Mass ratio] 10.3 mg/mg Normal [facility] Comment on above: Performed By: #### L IPA, CMP, HSTROPN #### [facility] [address] [address] [address] Oh Trotter XR CHEST 1 Von [...] GALDINO ARROYO Date: 2021-10-16 13:09 Normal [facility] BNPon 09-15-2021 Natriuretic peptide B (Bld) [Mass/Vol] 9.0 pg/mL Normal <=450.0 [facility] Comment on above: Performed By: #### H STROPN, TSH, BNP, CMP #### [facility] [address] [address] [address] Oh Trotter CBC AUTO DIFFon 09-15-2021 BASO # 0.0 103/ul Normal 0.0-0.1 [facility] Comment on above: Performed By: #### L IPA, CMP, HSTROPN #### [facility] [address] [address] [address] Oh Trotter Basophils/100 WBC (Bld) 0.1 % Critically low 0.2-2.0 [facility] Comment on above: Performed By: #### L IPA, CMP, HSTROPN #### [facility] [address] [place] [address] Dr. Oh Trotter EO # 0.1 103/ul Normal 0.0-0.7 [facility] Comment on above: Performed By: #### L IPA, CMP, HSTROPN #### [facility] [address] [place] [address] Dr. Oh Trotter Eosinophils/100 WBC (Bld) 0.6 % Critically low 0.9-7.0 [facility] Comment on above: Performed By: #### L IPA, CMP, HSTROPN #### [facility] [address] [place] [address] Dr. Oh Trotter Erythrocyte distribution width (RBC) [Ratio] 12.5 % Normal 11.0-15.0 [facility] Comment on above: Performed By: #### L IPA, CMP, HSTROPN #### [facility] [address] [place] [address] Dr. Oh Trotter Hematocrit (Bld) [Volume fraction] 48.3 % Normal 42.0-54.0 [facility] Comment on above: Performed By: #### L IPA, CMP, HSTROPN #### [facility] [address] [place] [address] Dr. Oh Trotter Hemoglobin (Bld) [Mass/Vol] 16.7 g/dL Normal 14.0-18.0 [facility] Comment on above: Performed By: #### L IPA, CMP, HSTROPN #### [facility] [address] [place] [address] Dr. Oh Trotter IG # 0.01 10e3/ul Normal 0.00-0.03 [facility] Comment on above: Performed By: #### L IPA, CMP, HSTROPN #### [facility] [address] [place] [address] Dr. Oh Trotter IG % 0.1 % Normal 0.0-0.5 [facility] Comment on above: Performed By: #### L IPA, CMP, HSTROPN #### [facility] [address] [place] [address] Dr. Oh Trotter LYMPH # 3.5 103/ul Normal 1.2-3.8 [facility] Comment on above: Performed By: #### L IPA, CMP, HSTROPN #### [facility] [address] [place] [address] Dr. Oh Trotter Lymphocytes/100 WBC (Bld) 38.8 % Normal 20.5-60.0 [facility] Comment on above: Performed By: #### L IPA, CMP, HSTROPN #### [facility] [address] [place] [address] Dr. Oh Trotter MANUAL DIFF REQ NO Normal [facility] Comment on above: Performed By: #### L IPA, CMP, HSTROPN #### [facility] [address] [place] [address] Dr. Oh Trotter MCH (RBC) [Entitic mass] 29.3 pg Normal 25.9-34.0 [facility] Comment on above: Performed By: #### L IPA, CMP, HSTROPN #### [facility] [address] [place] [address] Dr. Oh Trotter MCHC (RBC) [Mass/Vol] 34.6 g/dL Normal 29.9-35.2 [facility] Comment on above: Performed By: #### L IPA, CMP, HSTROPN #### [facility] [address] [place] [address] Dr. Oh Trotter MCV (RBC) [Entitic vol] 84.9 fL Normal 80.0-94.0 [facility] Comment on above: Performed By: #### L IPA, CMP, HSTROPN #### [facility] [address] [place] [address] Dr. Oh Trotter MONO # 0.5 103/ul Normal 0.3-0.8 [facility] Comment on above: Performed By: #### L IPA, CMP, HSTROPN #### [facility] [address] [address] [address] Oh Trotter Monocytes/100 WBC (Bld) 5.4 % Normal 1.7-12.0 [facility] Comment on above: Performed By: #### L IPA, CMP, HSTROPN #### [facility] [address] [place] [address] Dr. Oh Trotter NEUT # 4.9 103/ul Normal 1.4-6.5 [facility] Comment on above: Performed By: #### L IPA, CMP, HSTROPN #### [facility] [address] [place] [address] Dr. Oh Trotter Neutrophils/100 WBC (Bld) 55.0 % Normal 43.0-75.0 [facility] Comment on above: Performed By: #### L IPA, CMP, HSTROPN #### [facility] [address] [place] [address] Dr. Oh Trotter Platelet mean volume (Bld) [Entitic vol] 9.7 fL Normal 9.5-13.5 [facility] Comment on above: Performed By: #### L IPA, CMP, HSTROPN #### [facility] [address] [place] [address] Dr. Oh Trotter PLT 227 103/ul Normal 150-450 [facility] Comment on above: Performed By: #### L IPA, CMP, HSTROPN #### [facility] [address] [place] [address] Dr. Oh Trotter RBC 5.69 106/ul Normal 4.70-6.10 [facility] Comment on above: Performed By: #### L IPA, CMP, HSTROPN #### [facility] [address] [place] [address] Dr. Oh Trotter WBC 8.9 103/ul Normal 4.0-11.0 [facility] Comment on above: Performed By: #### L IPA, CMP, HSTROPN #### [facility] [address] [place] [address] Dr. Oh Trotter D-DIMERon 09-15-2021 D-DIMER 0.19 mg/L FEU Normal <=0.59 [facility] Comment on above: Performed By: #### L IPA, CMP, HSTROPN #### [facility] [address] [address] [address] Oh Trotter D-DIMER COMMENTS SEE BELOW Normal [facility] Comment on above: Result Comment: Incr [...] By: #### L IPA, CMP, HSTROPN #### [facility] [address] [place] [address] Dr. Oh Trotter PROF 14(COMP METB)on 022 Albumin [Mass/Vol] 3.9 g/dL Normal 3.4-5.0 [facility] Comment on above: Performed By: #### H STROPN, TSH, BNP, CMP #### [facility] [address] [place] [address] Dr. Oh Trotter Albumin/Globulin [Mass ratio] 0.8 {ratio} Normal [facility] Comment on above: Performed By: #### H STROPN, TSH, BNP, CMP #### [facility] [address] [address] [address] Oh Trotter ALP [Catalytic activity/Vol] 73 U/L Normal 46-116 [facility] Comment on above: Performed By: #### H STROPN, TSH, BNP, CMP #### [facility] [address] [place] [address] Dr. Oh Trotter ALT [Catalytic activity/Vol] 48 U/L Normal 16-63 [facility] Comment on above: Performed By: #### H STROPN, TSH, BNP, CMP #### [facility] [address] [address] [address] Oh Trotter Anion gap [Moles/Vol] 14.9 mmol/L Normal [facility] Comment on above: Performed By: #### H STROPN, TSH, BNP, CMP #### [facility] [address] [address] [address] Oh Trotter AST [Catalytic activity/Vol] 22 U/L Normal 15-37 [facility] Comment on above: Performed By: #### H STROPN, TSH, BNP, CMP #### [facility] [address] [address] [address] Oh Trotter Bilirubin [Mass/Vol] 0.4 mg/dL Normal 0.2-1.0 [facility] Comment on above: Performed By: #### H STROPN, TSH, BNP, CMP #### [facility] [address] [place] [address] Dr. Oh Trotter Calcium [Mass/Vol] 9.2 mg/dL Normal 8.5-10.1 [facility] Comment on above: Performed By: #### H STROPN, TSH, BNP, CMP #### [facility] [address] [place] [address] Dr. Oh Trotter Chloride [Moles/Vol] 102 mmol/L Normal 98-107 [facility] Comment on above: Performed By: #### H STROPN, TSH, BNP, CMP #### [facility] [address] [place] [address] Dr. Oh Trotter CO2 [Moles/Vol] 23.7 mmol/L Normal 21.0-32.0 [facility] Comment on above: Performed By: #### H STROPN, TSH, BNP, CMP #### [facility] [address] [place] [address] Dr. Oh Trotter Creatinine [Mass/Vol] 1.14 mg/dL Normal 0.70-1.30 [facility] Comment on above: Performed By: #### H STROPN, TSH, BNP, CMP #### [facility] [address] [place] [address] Dr. Oh Trotter EGFR-AF COSTA RICAN >60 Normal >=[address] [facility] Comment on above: Performed By: #### H STROPN, TSH, BNP, CMP #### [facility] [address] [address] [address] Oh Trotter EGFR-NON AF COSTA RICAN >60 Normal >=60 [facility] Comment on above: Performed By: #### H STROPN, TSH, BNP, CMP #### [facility] [address] [address] [address] Oh Trotter Globulin (S) [Mass/Vol] 4.7 g/dL Normal [facility] Comment on above: Performed By: #### H STROPN, TSH, BNP, CMP #### [facility] [address] [address] [address] Oh Trotter Glucose [Mass/Vol] 120 mg/dL Critically high 74-106 [facility] Comment on above: Performed By: #### H STROPN, TSH, BNP, CMP #### [facility] [address] [address] [address] Oh Trotter Potassium [Moles/Vol] 3.6 mmol/L Normal 3.5-5.1 [facility] Comment on above: Performed By: #### H STROPN, TSH, BNP, CMP #### [facility] [address] [address] [address] Oh Trotter Protein [Mass/Vol] 8.6 g/dL Critically high 6.4-8.2 [facility] Comment on above: Performed By: #### H STROPN, TSH, BNP, CMP #### [facility] [address] [address] [address] Oh Trotter Sodium [Moles/Vol] 137 mmol/L Normal 136-145 [facility] Comment on above: Performed By: #### H STROPN, TSH, BNP, CMP #### [facility] [address] [place] [address] Dr. Oh Trotter Urea nitrogen [Mass/Vol] 12.0 mg/dL Normal 7.0-18.0 [facility] Comment on above: Performed By: #### H STROPN, TSH, BNP, CMP #### [facility] [address] [address] [address] Oh Trotter Urea nitrogen/Creatinine [Mass ratio] 10.5 mg/mg Normal [facility] Comment on above: Performed By: #### H STROPN, TSH, BNP, CMP #### [facility] [address] [place] [address] Dr. Oh Trotter PROTIMEon 09-15-2021 INR Coag (PPP) [Relative time] 0.94 {INR} Normal [facility] Comment on above: Performed By: #### L IPA, CMP, HSTROPN #### [facility] [address] [place] [address] Dr. Oh Trotter INR GUIDELINES SEE BELOW Normal [facility] Comment on above: Result Comment: ADITHYA RED INR: 2.0 - 3.0 CONDITIONS NOT LISTED BELOW 2.5 - 3.5 FOR PROSTHETIC HEART VALVE REPLACEMENT 2.5 - 3.5 RECURRENT THROMBOSIS Performed By: #### L IPA, CMP, HSTROPN #### [facility] [address] [place] [address] Dr. Oh Trotter PT Coag (PPP) [Time] 10.2 s Normal 9.0-11.6 [facility] Comment on above: Performed By: #### L IPA, CMP, HSTROPN #### [facility] [address] [place] [address] Dr. Oh Trotter PTTon 09-15-2021 aPTT Coag (Bld) [Time] 26.6 s Normal 22.3-36.2 [facility] Comment on above: Performed By: #### L IPA, CMP, HSTROPN #### [facility] [address] [place] [address] Dr. Oh Trotter TROPONIN, HIGH SENSITIVITYon 09-15-2021 HSTROP 3.4 pg/mL Critically low 4.0-76.1 [facility] Comment on above: Result Comment: CUT- OFF POINTS HAVE BEEN ESTABLISHED BASED ON THE FOURTH UNIVERSAL DEFINITIONS OF MYOCARDIAL INFARCTION. THE UPPER REFERENCE LIMIT (URL) OF TROPONIN, DEFINED THE 99TH PERCENTILE OF cTnI DISTRIBUTION IN A REFERENCE POPULATION, HAS BEEN CONFIRMED THE DECISION THRESHOLD FOR MD DIAGNOSIS. Performed By: #### P TT, PT #### [facility] [address] [address] [address] Oh Trotter TSHon 09-15-2021 TSH 1.085 uIU/mL Normal 0.358-3.740 [facility] Comment on above: Performed By: #### H STROPN, TSH, BNP, CMP #### [facility] [address] [address] [address] Oh Trotter TSH RANGE SEE BELOW Normal [facility] Comment on above: Result Comment: <0.3 4 UIU/ml HYPERTHYROID 0.34-5.60 UIU/ml EUTHYROID >5.60 UIU/ml HYPOTHYROID Performed By: #### H STROPN, TSH, BNP, CMP #### [facility] [address] [address] [address] Oh Trotter XR ABD FLAT UP_PA [...] by: OTTO POLANCO Date: 2021-09-15 19:35 Normal [facility] XR CHEST 1 Von 09-07-2021 XR [...] by: ELIZABETH TURNER Date: 2021-09-06 23:38 Normal [facility] Encounters Encounter Date Encounter Type Care Provider Facility Start: 08-09-2022 End: 08-09-2022 ambulatory LEIGHANN SORIANO Facility:[facility] Start: 07-28-2022 End: 07-29-2022 ambulatory LEIGHANN CHRISTIE Facility:[facility] Start: 06-24-2022 End: 06-25-2022 ambulatory Lucy Rich VIVIANE Facility:CD:[id number] Start: 06-03-2022 End: 06-04-2022 ambulatory Lucy Rich VIVIANE Facility:[facility] Start: 05-23-2022 End: 05-23-2022 ambulatory LEIGHANNJAILYN SORIANO Facility:[facility] Start: 05-13-2022 ambulatory Lucy ANTHONYSebas Facility:[facility] Start: 05-11-2022 End: 05-11-2022 ambulatory LEIHGANN CHRISTIE Facility:[facility] Start: 05-02-2022 End: 05-02-2022 ambulatory [...] Facility:[facility] Payers Date Payer Category Payer Unknown [id number] 2.16.8 [id number] 1985 Unknown [id number] 2.16.8 [id number] 1987 Unknown [id number] 2.16.84 0.1.752533.3.579.2.593 1987 Unknown [id number] 2.16.84 0.1.015536.3.579.2.593 1987 Unknown [id number] 2.16.84 0.1.939232.3.579.2.593 1987 Unknown [id number] 2.16.84 0.1.567004.3.579.2.593 1987 Unknown [id number] 2.16.84 0.1.582474.3.579.2.593 1987 Unknown [id number] 2.16.84 0.1.992265.3.579.2.593 1987 Unknown [id number] 2.16.84 0.1.600698.3.579.2.593 1987 Unknown [id number] 2.16.84 0.1.409384.3.579.2.593 1987 Unknown [id number] 2.16.84 0.1.145301.3.579.2.593 1987 Unknown [id number] 2.16.84 0.1.708449.3.579.2.593 1987 Unknown [id number] 2.16.84 0.1.766616.3.579.2.593 1987 Unknown [id number] 2.16.84 0.1.364552.3.579.2.593 1987 Unknown [id number] 2.16.84 0.1.343368.3.579.2.593 1959 Unknown [id number] Clinical Note 06-24-2022 Note Date & Type [...] good condition. CC: Leighann Soriano CNP [facility] Clinical Note 06-03-2022 Note Date & Type [...] Present Illness 36 yo male with h/o Ddbem-Igilfpnkg-Rgvyh syndrome, migraines, GERD, AIDAN, depression, IBS; referred [...] with mild panic attacks Rectal bleeding Smoker Rtoqk-Rwmlksoub-Evakw syndrome Historical Atrial fibrillation Epididymitis Nocturia Scrotal [...] cap(s), Oral, Daily (more content not included)... [facility] Comment on above: Result Comment: Elec [...] section and content) DATE CREATED AUTHOR 07/02/2022 [facility] DATE CREATED AUTHOR AUTHOR'S ORGANIZ ATION 08/11/2022 [facility] FOR RECORDS PERTAINING TO PATIENTS WHO [...] BE BASED ON THE PRIMARY CLINICAL RECORDS. [facility] provides no warranty or guarantee of the accuracy or completeness of information in this document.
[2023-06-28] MEDS: lidocaine HCL 15 ML, MAG HYDROX/ALUMINUM HYD/SIMETH 30 ML, HYOSCYAMINE SULFATE 0.25 MG PO (03:31)
[2023-06-28 03:35] LABS: Alanine Aminotransferase 62 U/L (16-63); Albumin Globulin Ratio 0.7; Albumin Level 3.6 g/dL (3.4-5.0); Alkaline Phosphatase 55 U/L (46-116); Anion Gap 13.4; Aspartate Amino Transferase 31 U/L (15-37); Bilirubin Total 0.6 mg/dL (0.2-1.0); Calcium 8.9 mg/dL (8.5-10.1); Carbon Dioxide 27.3 mmol/L (21.0-32.0); Chloride 105 mmol/L (98-107); Estimated GFR (African America >60 (>=60); Estimated GFR (Non-African Ame >60 (>=60); Glucose 179 mg/dL (74-106); Potassium 3.7 mmol/L (3.5-5.1); Sodium 142 mmol/L (136-145); Total Protein 8.6 g/dL (6.4-8.2); Troponin I High Sensitivity 4.7 pg/mL (4.0-76.1)
--- NOTE | 2023-06-28 03:48 | XR_ITS ---
The [address] [id number] Patient Name: CHUCK PACKER MRN: [id number] date: 1985 Sex: M Assigned Patient Location: ER Current Patient Location: ER Accession/Order Number: [id number] Exam Date: 06/28/2023 03:59 Report Date: 06/28/2023 04:37 At the request of: LIYA MARKER Procedure: XR acute abdomen series EXAMINATION: XR acute abdomen series HISTORY: epigastric abd pain , nausea and vomiting COMPARISON: No relevant comparison available. FINDINGS: LUNGS: No infiltrate, pneumothorax, or pleural effusion. MEDIASTINUM: No abnormal widening. BOWEL GAS PATTERN: Non-obstructed. No abnormal dilation or suspicious fluid levels. FREE AIR: None. CALCIFICATIONS: None significant. BONES: No fracture or visible bone lesion. OTHER: Negative. XR/XR acute abdomen series IMPRESSION: 1. No acute cardiac pulmonary process. 2. Normal bowel gas pattern. 3. No suspicious findings to account for patient's symptoms. Electronically authenticated by: GOOD TURNER Date: 06/28/2023 04:37
[2023-06-28] MEDS: LORAZEPAM 0.5 MG TABLET 1 MG PO (04:44)
[2023-06-28] MEDS: ONDANSETRON PF 4 MG/2 ML VIAL IV (04:46)
[2023-06-28 04:50] VITALS: BP 183/106; PULSE 71; RESP 16; O2SAT 98
--- NOTE | 2023-06-28 05:04 | ECG_ITS ---
[facility] Test Date: 2023-06-28 Pat Name: CHUCK PACKER Department: Room: - Gender: Male [employer]: : 1985 Requested By: [id number] Order Number: [id number] Reading MD: JASON SEVILLA Measurements Intervals Harper Rate: 81 P: 60 MA: 144 QRS: 40 QRSD: 84 T: 43 QT: 356 QTc: 393 Interpretive Statements 1100 Sinus rhythm 9110 normal ECG Compared to ECG 03/06/2022 14:33:22 No significant changes Electronically Signed On 06-28-2023 6:46:40 EST by JASON SEVILLA
== END 2023-06-28 06:12 | disposition home or self-care (01) ==
PROVIDERS: Emergency Provider Emergency Medicine; PCP Nurse Practitioner Family
DX: K29.00 Acute gastritis without bleeding (principal); Z90.49 Acquired absence of other specified parts of digestive tract; E66.01 Morbid (severe) obesity due to excess calories; F17.200 Nicotine dependence, unspecified, uncomplicated; F41.9 Anxiety disorder, unspecified; R11.2 Nausea with vomiting, unspecified; R03.0 Elevated blood-pressure reading, without diagnosis of hypertension; Z68.41 Body mass index [BMI] 40.0-44.9, adult
CPT/HCPCS: 36415; 74022; 80053; 83690; 84484; 85025; 93005; 96374; 96375; 99285; J1885; J2405

== ENCOUNTER 2024-02-24 14:06 | Outpatient (OUT) | payer OTHER, SELFPAY ==
[2024-02-24 14:24] LABS: Basophils Percent Auto 0.3 % (0.2-2.0); Eosinophils Percent Auto 0.1 % (0.9-7.0); Hematocrit 42.1 % (42.0-54.0); Hemoglobin 14.7 g/dL (14.0-18.0); Immature Granulocytes Abs Auto 0.01 10^3/uL (0.00-0.03); Immature Granulocytes Pct Auto 0.1 % (0.0-0.5); Lymphocytes Absolute Auto 2.1 10^3/uL (1.2-3.8); Mean Corpuscular HGB Conc 34.9 g/dL (29.9-35.2); Mean Corpuscular Hemoglobin 29.8 pg (25.9-34.0); Mean Corpuscular Volume 85.2 fL (80.0-94.0); Mean Platelet Volume 8.8 fL (9.5-13.5); Monocytes Absolute Auto 0.4 10^3/uL (0.3-0.8); Monocytes Percent Auto 5.2 % (1.7-12.0); Neutrophils Absolute Auto 5.1 10^3/uL (1.4-6.5); Neutrophils Percent Auto 67.3 % (43.0-75.0); Platelet Count 179 10^3/uL (150-450); Red Blood Count 4.94 10^6/uL (4.70-6.10); White Blood Count 7.6 10^3/uL (4.0-11.0)
[2024-02-24 14:49] LABS: INR 0.97; Prothrombin Time 10.3 sec (9.0-11.6)
[2024-02-24 14:57] LABS: Anion Gap 12.3; BUN Creatinine Ratio 9.2; Calcium 9.1 mg/dL (8.5-10.1); Chloride 105 mmol/L (98-107); Estimated GFR (African America >60 (>=60 mL/min/1.73m^2); Estimated GFR (Non-African Ame >60 (>=60 mL/min/1.73m^2); Glucose 152 mg/dL (74-106); Potassium 4.3 mmol/L (3.5-5.1); Sodium 141 mmol/L (136-145)
== END 2024-02-24 14:07 | disposition home or self-care (01) ==
LOC: LAB 14:08
PROVIDERS: PCP Nurse Practitioner Family
DX: K62.89 Other specified diseases of anus and rectum (principal); R23.3 Spontaneous ecchymoses
CPT/HCPCS: 36415; 80048; 85025; 85610

== ENCOUNTER 2024-02-27 11:26 | Emergency (ER) | payer OTHER, SELFPAY ==
[2024-02-27 11:40] VITALS: BP 162/102; PULSE 86; TEMP 36.7; O2SAT 97; BMI 40.0
--- OUTSIDE RECORDS SUMMARY | 2024-02-27 11:43 | XMS_ITS | CCD ---
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 Name Role Phone ATNONI .MARZENA Attending Unavailable ANTONI ., MARZENA Consulting Unavailable ANTONI ., MARZENA Admitting Unavailable REQUEST, NONE LISTED Primary Care Unavaila ble GALDINO ARROYO Consulting Unavailable CHRISTIE, LEIGHANN Primary Care Unavailable HAY ., DR YEUNG Admitting Unavailable HAY ., DR YEUNG Consulting Unavailable HAY ., DR YEUNG Attending Unavailable CARRIE ., MATTHIAS PAREDES Consulting Unavailkb e CHRISTIE, LEIGHANN Primary Care Unavailable DAISY, DR TJ Enamorado Admitting Unavailabl e DAISY, [...] Unavailable JOANIE, DR SUKUMAR Rich Admitting Unavailable JONAIE, DR SUKUMAR Rich Consulting Unavailable REQUEST, NONE LISTED Primary Care Unavaila kyree NAIR, DR SUKUMAR Rich Attending Unavailable ELIZABETH [...] DR LEY Consulting Unavailable PAY ., DR ELY Attending Unavailable CARRIE ., MATTHIAS PAREDES Consulting UnavailOTTO Gaytan Consulting Unavailable RAKESH, TATA Consulting Unavailable LEIGHANN SORIANO Primary Care Unavailable TATA CAMERON Attending Unavailable TATA CAMERON Admitting Unavailable CARRIE ., MATTHIAS PAREDES Consulting UnavailLEIGHANN Evans Primary Care Unavailable PAY ., DR LEY Admitting Unavailable PAY ., DR LEY Attending Unavailable LUCY JEWELL Consulting Unavailable LEIGHANN SORIANO Primary Care Physician Lucy BEY Attending Unavailable LEIGHANN SORIANO Referring Unavailable URBANO RODRIGUEZ Attending Unavailable Allergies Allergy Classification Reported Allergen(s) Allergy Type Date of Onset Reaction(s) Facility (2 sources) Erythromycin; Translations: [ERYTHROMYCIN BASE] Drug Allergy 4 [facility] Repository (4 sources) Penicillins; Translations: [penicillins] Drug allergy (disorder) 4 [facility] (disorder) [facility] (3 sources) Erythromycin; Translations: [erythromycin] Drug Allergy 4 [facility] Medications Current Medications Medication Drug Class(es) Dates Sig (Normalized) Sig (Original) Albuterol (1 source) beta2-Adrenergic Agonist Start: 05-29-2022 take 2 puff(s) by inhalation every four hours Albuterol (Eqv-ProAir HFA) 2 puff(s), Inhalation, q4hr Shortness of breath or wheezing, Refill(s) 0 Start Date: 05/29/22 Status: Ordered FLUoxetine 20 mg oral capsule (1 source) Serotonin Reuptake Inhibitor Start: 12-13-2023 take 3 capsules by mouth once daily FLUoxetine 20 mg Cap 60 mg = 3 cap(s), Oral, Daily, Refills(s) 0 Start Date: 12/13/23 Status: Ordered hydrOXYzine hydrochloride 50 mg oral tablet (1 source) Antihistamine Start: 12-13-2023 take 1 tablet by mouth twice daily hydrOXYzine hydrochloride 50 mg oral tablet 50 mg = 1 tab(s), Oral, BID, Refills(s) 0 Start Date: 12/13/23 Status: Ordered OLANZapine 10 mg oral tablet (1 source) Atypical Antipsychotic Start: 12-13-2023 take 1 tablet by mouth once daily olanzapine 10 mg Tab 10 mg = 1 tab(s), Oral, Daily, Refills(s) 0 Start Date: 12/13/23 Status: Ordered pantoprazole 40 mg delayed release oral tablet (1 source) Proton Pump Inhibitor Start: 12-13-2023 take 1 tablet by mouth once daily Pantoprazole [address] Tab 40 mg = 1 tab(s), Oral, Daily, Refills(s) 0 Start Date: 12/13/23 Status: Ordered 24 hr divalproex sodium 250 mg extended release oral tablet (1 source) Mood Stabilizer, Anti-epileptic Agent Start: 12-13-2023 divalproex sodium 250 mg ER Tab as directed, Refills(s) 0 Start Date: 12/13/23 Status: Ordered Problems Active Problems Problem Classification Problem Date Documented Da te Episodic/Chronic Abdominal pain (5 sources) Pelvic and perineal pain; Translations: [Periumbilical pain] Onset: 03-10-2022 06-03-2022 Episodic Anal and rectal conditions (3 sources) Other specified diseases of anus and rectum; Translations: [OTHER SPEC DISEASES ANUS AND RECTUM] Onset: 06-25-2022 Episodic Anxiety disorders (8 sources) Generalized anxiety disorder; Translations: [Anxiety disorder, unspecified] Onset: 03-10-2022 Chronic Conduction disorders (2 sources) Pre-excitation syndrome; Translations: [Ndfub-Tvlmlyhxl-Xue te pattern] Onset: 08-11-2022 05-29-2022 Chronic Esophageal disorders (2 sources) Gastro-esophageal reflux disease without esophagitis; Translations: [Gastroesophageal reflux disease] Onset: 06-25-2022 05-29-2022 Chronic Gastrointestinal hemorrhage (10 sources) Melena; Translations: [Hemorrhage of anus and rectum] Onset: 06-24-2022 Episodic Genitourinary symptoms and ill-defined conditions (1 source) Nocturia 04-08-2021 Episodic Headache; including migraine (1 source) Migraine 05-29-2022 Chronic Inflammatory conditions of male genital organs (1 source) Epididymitis 04-08-2021 Episodic Mood disorders (1 source) Depressive disorder 05-29-2022 Chronic Mood disorders (1 source) Mood disorders; Translations: [DEPRESSION UNSPECIFIED] Onset: 06-25-2022 Other aftercare (1 source) Other longterm (current) drug therapy; Translations: [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 THERAPY] Onset: 06-25-2022 Episodic Other diseases of veins and lymphatics (1 source) Other specified disorders of veins; Translations: [OTHER SPECIFIED DISORDERS OF VEINS] Onset: 06-25-2022 Episodic Other gastrointestinal disorders (1 source) Irritable bowel syndrome without diarrhea; Translations: [IRRITABLE BOWEL SYND W/O DIARRHEA] Onset: 06-25-2022 Chronic Other gastrointestinal disorders (1 source) Irritable bowel syndrome 05-29-2022 Chronic Other gastrointestinal disorders (1 source) Change in bowel habit; Translations: [CHANGE IN BOWEL HABIT] Onset: 06-25-2022 Episodic Other gastrointestinal disorders (1 source) Altered bowel function 06-03-2022 Episodic Other infections; including parasitic (1 source) History of herpes zoster 05-29-2022 Episodic Other male genital disorders (1 source) Impotence 12-13-2023 Chronic Other male genital disorders (1 source) Pain in scrotum 04-08-2021 Episodic Other nutritional; endocrine; and metabolic disorders (1 source) Obesity, unspecified; Translations: [OBESITY UNSPECIFIED] Onset: 10-21-2021 Chronic Other nutritional; endocrine; and metabolic disorders (1 source) Body mass index (BMI) 39.0-39.9, adult; Translations: [BODY MASS INDEX BMI 39.0-39.9 ADULT] Onset: 10-21-2021 Chronic Other nutritional; endocrine; and metabolic disorders (1 source) Body mass index 40+ - severely obese 12-21-2023 Chronic Other nutritional; endocrine; and metabolic disorders (1 source) Morbid obesity 12-13-2023 Chronic Other skin disorders (4 sources) Rash [...] of face] Onset: 11-01-2021 Episodic Substance-related disorders (2 sources) Nicotine dependence, cigarettes, uncomplicated; Translations: [Smoker] Onset: 08-11-2022 01-14-2017 Chronic Comment on above: Added secondary to d ocumentation in Social History. Unclassified (3 sources) CONTACT W/AND (SUSP) EXPOS COVID-19; Translations: [CONTACT W/AND (SUSP) EXPOS COVID-19] Onset: 05-12-2022 Unclassified (1 source) PERSONAL HISTORY OF COVID-19; Translations: [PERSONAL HISTORY OF COVID-19] Onset: 03-10-2022 Past or Other Problems Problem Classification Problem Date Documented Da te Episodic/Chronic Cardiac dysrhythmias (1 source) Atrial fibrillation Onset: 05-03-2002 Resolved: 05-03-2002 08-03-2019 Chronic Disorders of teeth and jaw (5 sources) [...] Results Test Name Value Interpretation Reference Range Facility Consulton 02-23-2024 Consult [id number] Chuck Packer 1985 M Date Provider Department Center 02/23/2024 Mayra-RODRIGUEZURBANO [facility] SURG Second Fl No family history on file Level of Service:05454 NM OFFICE/OUTPATIENT [facility] 30 MINUTES Reason for Visit and Comments: Consult [224] - Chuck is here today for consult: Rectal pain and Bleeding Normal [facility] General Surgery Office/Clini c Noteon 12-26-2023 General Surgery Office/Clinic Note General Surgery Office/Clinic Note HPI Staff 38 year old male presents on consultation from Lyndsey Soriano for rectal pain and bleeding. Reports 3-4 month history of intermittent pain and bleeding. Reports he will experience pain multiple times throughout the day. Pain can last for several minutes to several hours. Describes pain as being stabbed by needles . Reports pain is worse with defecation. PCP notes rectal fissure at 12:00 position. Prescribed Hydrocortisone cream, Triamcinolone cream and Mupirocin ointment; patient using as prescribed. Previous colonoscopy completed 06/2022 with prominent rectal veins. History of Present Illness 38 yo male with several month h/o intermittent rectal pain and bleeding, worse with bms, sharp, no swelling or hemorrhoid prolapse; did have some constipation, was straining for bms; now reports stools softer, no blood in stool, just with wiping; used steroid creams and antibiotic cream, some improvement; no h/o similar problems in past; had colonoscopy 06/2022 for rectal bleeding, just had prominent rectal veins. smokes daily. Review of Systems PHQ Score Initial Depression Screen Score: 0 SCORE ROS - Provider Constitutional: no fever, no [...] nausea, no vomiting, no diarrhea, no constipation, no blood in stool, no change in bowel habits, no abdominal pain, no hepatitis. Genitourinary: no kidney [...] noncontributory. Physical Exam Vitals & Measurements HR: 80(Peripheral) RR: 16 BP: 120/88 HT: 74 in HT: 187 cm WT: 146 kg WT: 321.2 lb BMI: 41.75 rectal: perianal irritation; no blood, normal tone, no masses, no visible fissure, mild soreness left lateral, no fluctuance, no drainage, no external hemorrhoids. Assessment/Plan 1. Rectal or anal pain (K62.89: Other specified diseases of anus and rectum) perianal irritation, possibly healed fissure; discontinue steroid and antibiotic creams; use wet wipes; sitz baths before and after bms; high fiber diet and daily fiber supplement; discontinue tobacco use. call with problems/questions. 2. Rectal bleeding (K62.5: Hemorrhage of anus and rectum) see # 1 Follow-up No qualifying data available Problem List/Past Medical History Ongoing Abdominal pain, suprapubic BMI 40.0-44.9, adult BRBPR (bright red blood per rectum) Change in bowel habits Depression Erectile dysfunction Generalized anxiety disorder GERD (gastroesophageal reflux disease) History of shingles IBS (irritable bowel syndrome) Migraines Morbid obesity Pain, abdominal, periumbilical Panic disorder without agoraphobia with mild panic attacks Rectal bleeding Rectal or anal pain Smoker Uhuxh-Aqmxlgtmd-Ijsrr syndrome Historical Atrial fibrillation Epididymitis Nocturia Scrotal pain Procedure/Surgical History Colonoscopy (06/24/2022), Cardiac ablation using fluoroscopy guidance (2002), Cholecystectomy. Medications Albuterol (Eqv-ProAir HFA), 2 puff(s), Inhalation, q4hr, PRN divalproex sodium 250 mg ER Tab, as directed FLUoxetine 20 mg Cap, 60 mg= 3 cap(s), Oral, Daily hydrOXYzine hydrochloride 50 mg oral tablet, 50 mg= 1 tab(s), Oral, BID olanzapine 10 mg Tab, 10 mg= 1 tab(s), Oral, Daily Pantoprazole [address] Tab, 40 mg= 1 tab(s), Oral, Daily Allergies erythromycin (rash) penicillins (Hives) Social History Alcohol - Denies Alcohol Use, 08/03/2019 Past, 1-2 times per month, 2 drinks/episode average., 12/21/2023 Substance Abuse - High Risk, 08/03/2019 Current, Daily, 08/03/2019 Tobacco - High Risk, 08/03/2019 10 or more cigarettes (1/2 pack or more)/day in last 30 days Tobacco Use:. Never Smokeless Tobacco Use:. Cigarettes, 0.5 per day. 20 year(s). Total pack years: 20. Ready to change: No. Yes, 12/21/2023 Family History Depression: Mother. Diabetes mellitus type 2: Mother. Primary malignant neoplasm of lung: Mother. Immunizations Vaccine Date Status Comments influenza virus vaccine, inactivated - Not Given Patient Refuses Normal [facility] Comment on above: Result Comment: Elec tronically Signed By: VIVIANE SIMS, Lucy Yañez\Date and Time Signed: 12/26/23 19:55 EDT Ambulatory Visit Summaryon 0 2024 Ambulatory Visit Summary Ambulatory Visit Summary CHUCK PACKER :1985 Visit Date:12/21/2023 Ambulatory Visit Instructions Your Care Team Attending Physician - VIVIANE SIMS, Lucy Rich Primary Care Physician - LEIGHANN SORIANO CNP Referring Physician - LEIGHANN SORIANO CNP This Is Your Medications List Contact prescribing physician if questions or concerns albuterol (Albuterol (Eqv-ProAir HFA)) divalproex sodium (divalproex sodium 250 mg ER Tab) fluoxetine (FLUoxetine 20 mg Cap) hydrOXYzine (hydrOXYzine hydrochloride 50 mg oral tablet) olanzapine (olanzapine 10 mg Tab) pantoprazole (Pantoprazole [address] Tab) Procedures Performed Colonoscopy (06/24/2022), Cardiac ablation using fluoroscopy guidance (2002), Cholecystectomy. Discharge Vitals Heart Rate (Peripheral) 80 Respiratory Rate 16 Blood Pressure 120/88 Height 187 cm Height 74 in Weight 146 kg Weight 321.2 lb BMI 41.75 Medications What How Much When Instructions Unchanged albuterol (Albuterol (Eqv-ProAir HFA)) 2 Puffs Inhalation Every 4 hours as needed for Shortness of breath or wheezing Contact prescribing physician if questions or concerns Unchanged divalproex sodium (divalproex sodium 250 mg ER Tab) as directed Contact prescribing physician if questions or concerns Unchanged fluoxetine (FLUoxetine 20 mg Cap) 3 Capsules By Mouth Every day Contact prescribing physician if questions or concerns Unchanged hydrOXYzine (hydrOXYzine hydrochloride 50 mg oral tablet) 1 Tablets By Mouth 2 times a day Contact prescribing physician if questions or concerns Unchanged olanzapine (olanzapine 10 mg Tab) 1 Tablets By Mouth Every day Contact prescribing physician if questions or concerns Unchanged pantoprazole (Pantoprazole [address] Tab) 1 Tablets By Mouth Every day Contact prescribing physician if questions or concerns Allergies erythromycin (rash) penicillins (Hives) Problems Ongoing - Any problem that you are currently receiving treatment for. Abdominal pain, suprapubic BMI 40.0-44.9, adult BRBPR (bright red blood per rectum) Change in bowel habits Depression Erectile dysfunction Generalized anxiety disorder GERD (gastroesophageal reflux disease) History of shingles IBS (irritable bowel syndrome) Migraines Morbid obesity Pain, abdominal, periumbilical Panic disorder without agoraphobia with mild panic attacks Rectal bleeding Smoker Oppic-Zcdwohguf-Vtepv syndrome Historical - Any problem that you are no longer receiving treatment for. Atrial fibrillation Epididymitis Nocturia Scrotal pain Patient Survey You may receive a survey via text or e-mail asking about your office visit. Please share your experience with us by completing your survey. We appreciate your feedback and thank you for choosing us for your care. Normal [facility] CBC AUTO DIFFon 08-09-2022 BASO # 0.0 103/ul Normal 0.0-0.1 [facility] Comment on above: Performed By: #### P TT, PT #### [facility] [address] [address] [address] Oh Trotter Basophils/100 WBC (Bld) 0.2 % Normal 0.2-2.0 [facility] Comment on above: Performed By: #### P TT, PT #### [facility] [address] [address] [address] Oh Trotter EO # 0.0 103/ul Normal 0.0-0.7 [facility] Comment on above: Performed By: #### P TT, PT #### [facility] [address] [address] [address] Oh Trotter Eosinophils/100 WBC (Bld) 0.6 % Critically low 0.9-7.0 [facility] Comment on above: Performed By: #### P TT, PT #### [facility] [address] [address] [address] Oh Trotter Erythrocyte distribution width (RBC) [Ratio] 12.2 % Normal 11.0-15.0 [facility] Comment on above: Performed By: #### P TT, PT #### [facility] [address] [address] [address] Oh Trotter Hematocrit (Bld) [Volume fraction] 44.1 % Normal 42.0-54.0 [facility] Comment on above: Performed By: #### P TT, PT #### [facility] [address] [address] [address] Oh Trotter Hemoglobin (Bld) [Mass/Vol] 15.8 g/dL Normal 14.0-18.0 [facility] Comment on above: Performed By: #### P TT, PT #### [facility] [address] [place] [address] Dr. Oh Trotter IG # 0.02 10e3/ul Normal 0.00-0.03 [facility] Comment on above: Performed By: #### P TT, PT #### [facility] [address] [place] [address] Dr. Oh Trotter IG % 0.3 % Normal 0.0-0.5 [facility] Comment on above: Performed By: #### P TT, PT #### [facility] [address] [place] [address] Dr. Oh Trotter LYMPH # 1.9 103/ul Normal 1.2-3.8 [facility] Comment on above: Performed By: #### P TT, PT #### [facility] [address] [place] [address] Dr. Oh Trotter Lymphocytes/100 WBC (Bld) 29.7 % Normal 20.5-60.0 [facility] Comment on above: Performed By: #### P TT, PT #### [facility] [address] [place] [address] Dr. Oh Trotter MANUAL DIFF REQ NO Normal [facility] Comment on above: Performed By: #### P TT, PT #### [facility] [address] [place] [address] Dr. Oh Trotter MCH (RBC) [Entitic mass] 29.8 pg Normal 25.9-34.0 [facility] Comment on above: Performed By: #### P TT, PT #### [facility] [address] [place] [address] Dr. Oh Trotter MCHC (RBC) [Mass/Vol] 35.8 g/dL Critically high 29.9-35.2 [facility] Comment on above: Performed By: #### P TT, PT #### [facility] [address] [place] [address] Dr. Oh Trotter MCV (RBC) [Entitic vol] 83.2 fL Normal 80.0-94.0 [facility] Comment on above: Performed By: #### P TT, PT #### [facility] [address] [place] [address] Dr. Oh Trotter MONO # 0.6 103/ul Normal 0.3-0.8 [facility] Comment on above: Performed By: #### P TT, PT #### [facility] [address] [place] [address] Dr. Oh Trotter Monocytes/100 WBC (Bld) 8.6 % Normal 1.7-12.0 [facility] Comment on above: Performed By: #### P TT, PT #### [facility] [address] [place] [address] Dr. Oh Trotter NEUT # 3.9 103/ul Normal 1.4-6.5 [facility] Comment on above: Performed By: #### P TT, PT #### [facility] [address] [place] [address] Dr. Oh Trotter Neutrophils/100 WBC (Bld) 60.6 % Normal 43.0-75.0 [facility] Comment on above: Performed By: #### P TT, PT #### [facility] [address] [place] [address] Dr. Oh Trotter Platelet mean volume (Bld) [Entitic vol] 9.5 fL Normal 9.5-13.5 [facility] Comment on above: Performed By: #### P TT, PT #### [facility] [address] [place] [address] Dr. Oh Trotter PLT 187 103/ul Normal 150-450 [facility] Comment on above: Performed By: #### P TT, PT #### [facility] [address] [place] [address] Dr. Oh Trotter RBC 5.30 106/ul Normal 4.70-6.10 [facility] Comment on above: Performed By: #### P TT, PT #### [facility] [address] [place] [address] Dr. Oh Trotter WBC 6.4 103/ul Normal 4.0-11.0 [facility] Comment on above: Performed By: #### P TT, PT #### [facility] [address] [place] [address] Dr. Oh Trotter PROF 14(COMP METB)on 023 Albumin [Mass/Vol] 3.5 g/dL Normal 3.4-5.0 [facility] Comment on above: Performed By: #### L IPA, CMP, HSTROPN #### [facility] [address] [place] [address] Dr. Oh Trotter Albumin/Globulin [Mass ratio] 0.7 {ratio} Normal [facility] Comment on above: Performed By: #### L IPA, CMP, HSTROPN #### [facility] [address] [place] [address] Dr. Oh Trotter ALP [Catalytic activity/Vol] 85 U/L Normal 46-116 [facility] Comment on above: Performed By: #### L IPA, CMP, HSTROPN #### [facility] [address] [place] [address] Dr. Oh Trotter ALT [Catalytic activity/Vol] 34 U/L Normal 16-63 [facility] Comment on above: Performed By: #### L IPA, CMP, HSTROPN #### [facility] [address] [place] [address] Dr. Oh Trotter Anion gap [Moles/Vol] 13.3 mmol/L Normal [facility] Comment on above: Performed By: #### L IPA, CMP, HSTROPN #### [facility] [address] [place] [address] Dr. Oh Trotter AST [Catalytic activity/Vol] 18 U/L Normal 15-37 [facility] Comment on above: Performed By: #### L IPA, CMP, HSTROPN #### [facility] [address] [place] [address] Dr. Oh Trotter Bilirubin [Mass/Vol] 0.4 mg/dL Normal 0.2-1.0 [facility] Comment on above: Performed By: #### L IPA, CMP, HSTROPN #### [facility] [address] [address] [address] Oh Trotter Calcium [Mass/Vol] 8.9 mg/dL Normal 8.5-10.1 [facility] Comment on above: Performed By: #### L IPA, CMP, HSTROPN #### [facility] [address] [address] [address] Oh Trotter Chloride [Moles/Vol] 105 mmol/L Normal 98-107 [facility] Comment on above: Performed By: #### L IPA, CMP, HSTROPN #### [facility] [address] [address] [address] Oh Trotter CO2 [Moles/Vol] 24.7 mmol/L Normal 21.0-32.0 [facility] Comment on above: Performed By: #### L IPA, CMP, HSTROPN #### [facility] [address] [place] [address] Dr. Oh Trotter Creatinine [Mass/Vol] 0.88 mg/dL Normal 0.70-1.30 [facility] Comment on above: Performed By: #### L IPA, CMP, HSTROPN #### [facility] [address] [place] [address] Dr. Oh Trotter EGFR-AF KAZAKH >60 Normal >=60 [facility] Comment on above: Performed By: #### L IPA, CMP, HSTROPN #### [facility] [address] [address] [address] Oh Trotter EGFR-NON AF KAZAKH >60 Normal >=60 [facility] Comment on above: Performed By: #### L IPA, CMP, HSTROPN #### [facility] [address] [address] [address] Oh Trotter Globulin (S) [Mass/Vol] 4.8 g/dL Normal [facility] Comment on above: Performed By: #### L IPA, CMP, HSTROPN #### [facility] [address] [address] [address] Oh Trotter Glucose [Mass/Vol] 113 mg/dL Critically high 74-106 [facility] Comment on above: Performed By: #### L IPA, CMP, HSTROPN #### [facility] [address] [place] [address] Dr. Oh Trotter Potassium [Moles/Vol] 4.0 mmol/L Normal 3.5-5.1 [facility] Comment on above: Performed By: #### L IPA, CMP, HSTROPN #### [facility] [address] [address] [address] Oh Trotter Protein [Mass/Vol] 8.3 g/dL Critically high 6.4-8.2 [facility] Comment on above: Performed By: #### L IPA, CMP, HSTROPN #### [facility] [address] [place] [address] Dr. Oh Trotter Sodium [Moles/Vol] 139 mmol/L Normal 136-145 [facility] Comment on above: Performed By: #### L IPA, CMP, HSTROPN #### [facility] [address] [place] [address] Dr. Oh Trotter Urea nitrogen [Mass/Vol] 15.0 mg/dL Normal 7.0-18.0 [facility] Comment on above: Performed By: #### L IPA, CMP, HSTROPN #### [facility] [address] [place] [address] Dr. Oh Trotter Urea nitrogen/Creatinine [Mass ratio] 17.0 mg/mg Normal [facility] Comment on above: Performed By: #### L IPA, CMP, HSTROPN #### [facility] [address] [place] [address] Dr. Oh rTotter XR ABD FLAT UP_PA German 07-29 XR [...] VERA SETHI Date: 2022-07-28 22:14 Normal [facility] CBC AUTO DIFFon 07-28-2022 BASO # 0.0 103/ul Normal 0.0-0.1 [facility] Comment on above: Performed By: #### L IPA, CMP, HSTROPN #### [facility] [address] [address] [address] Oh Trotter Basophils/100 WBC (Bld) 0.2 % Normal 0.2-2.0 [facility] Comment on above: Performed By: #### L IPA, CMP, HSTROPN #### [facility] [address] [address] [address] Oh Trotter EO # 0.1 103/ul Normal 0.0-0.7 [facility] Comment on above: Performed By: #### L IPA, CMP, HSTROPN #### [facility] [address] [address] [address] Oh Trotter Eosinophils/100 WBC (Bld) 0.9 % Normal 0.9-7.0 [facility] Comment on above: Performed By: #### L IPA, CMP, HSTROPN #### [facility] [address] [address] [address] Oh Trotter Erythrocyte distribution width (RBC) [Ratio] 12.4 % Normal 11.0-15.0 [facility] Comment on above: Performed By: #### L IPA, CMP, HSTROPN #### [facility] [address] [address] [address] Oh Trotter Hematocrit (Bld) [Volume fraction] 44.8 % Normal 42.0-54.0 [facility] Comment on above: Performed By: #### L IPA, CMP, HSTROPN #### [facility] [address] [place] [address] Dr. Oh Trotter Hemoglobin (Bld) [Mass/Vol] 15.7 g/dL Normal 14.0-18.0 [facility] Comment on above: Performed By: #### L IPA, CMP, HSTROPN #### [facility] [address] [place] [address] Dr. Oh Trotter IG # 0.02 10e3/ul Normal 0.00-0.03 [facility] Comment on above: Performed By: #### L IPA, CMP, HSTROPN #### [facility] [address] [place] [address] Dr. Oh Trotter IG % 0.2 % Normal 0.0-0.5 [facility] Comment on above: Performed By: #### L IPA, CMP, HSTROPN #### [facility] [address] [place] [address] Dr. Oh Trotter LYMPH # 3.2 103/ul Normal 1.2-3.8 [facility] Comment on above: Performed By: #### L IPA, CMP, HSTROPN #### [facility] [address] [place] [address] Dr. Oh Trotter Lymphocytes/100 WBC (Bld) 39.2 % Normal 20.5-60.0 [facility] Comment on above: Performed By: #### L IPA, CMP, HSTROPN #### [facility] [address] [place] [address] Dr. Oh Trotter MANUAL DIFF REQ NO Normal [facility] Comment on above: Performed By: #### L IPA, CMP, HSTROPN #### [facility] [address] [place] [address] Dr. Oh Trotter MCH (RBC) [Entitic mass] 29.3 pg Normal 25.9-34.0 [facility] Comment on above: Performed By: #### L IPA, CMP, HSTROPN #### [facility] [address] [place] [address] Dr. Oh Trotter MCHC (RBC) [Mass/Vol] 35.0 g/dL Normal 29.9-35.2 [facility] Comment on above: Performed By: #### L IPA, CMP, HSTROPN #### [facility] [address] [place] [address] Dr. Oh Trotter MCV (RBC) [Entitic vol] 83.7 fL Normal 80.0-94.0 [facility] Comment on above: Performed By: #### L IPA, CMP, HSTROPN #### [facility] [address] [place] [address] Dr. Oh Trotter MONO # 0.6 103/ul Normal 0.3-0.8 [facility] Comment on above: Performed By: #### L IPA, CMP, HSTROPN #### [facility] [address] [place] [address] Dr. Oh Trotter Monocytes/100 WBC (Bld) 7.5 % Normal 1.7-12.0 [facility] Comment on above: Performed By: #### L IPA, CMP, HSTROPN #### [facility] [address] [place] [address] Dr. Oh Trotter NEUT # 4.3 103/ul Normal 1.4-6.5 [facility] Comment on above: Performed By: #### L IPA, CMP, HSTROPN #### [facility] [address] [place] [address] Dr. Oh Trotter Neutrophils/100 WBC (Bld) 52.0 % Normal 43.0-75.0 [facility] Comment on above: Performed By: #### L IPA, CMP, HSTROPN #### [facility] [address] [place] [address] Dr. Oh Trotter Platelet mean volume (Bld) [Entitic vol] 9.8 fL Normal 9.5-13.5 [facility] Comment on above: Performed By: #### L IPA, CMP, HSTROPN #### [facility] [address] [address] [address] Oh Trotter PLT 210 103/ul Normal 150-450 [facility] Comment on above: Performed By: #### L IPA, CMP, HSTROPN #### [facility] [address] [address] [address] Oh Trotter RBC 5.35 106/ul Normal 4.70-6.10 [facility] Comment on above: Performed By: #### L IPA, CMP, HSTROPN #### [facility] [address] [place] [address] Dr. Oh Trotter WBC 8.2 103/ul Normal 4.0-11.0 [facility] Comment on above: Performed By: #### L IPA, CMP, HSTROPN #### [facility] [address] [place] [address] Dr. Oh Trotter OCC BLD IMMUNOASSAYon 2022 OCCULT BLOOD Positive Abnormal NEGATIVE [facility] Comment on above: Performed By: #### P TT, PT #### [facility] [address] [place] [address] Dr. Oh Trotter PROF 14(COMP METB)on 023 Albumin [Mass/Vol] 3.9 g/dL Normal 3.4-5.0 [facility] Comment on above: Performed By: #### L IPA, CMP, HSTROPN #### [facility] [address] [place] [address] Dr. Oh Trotter Albumin/Globulin [Mass ratio] 0.9 {ratio} Normal [facility] Comment on above: Performed By: #### L IPA, CMP, HSTROPN #### [facility] [address] [address] [address] Oh Trotter ALP [Catalytic activity/Vol] 98 U/L Normal 46-116 [facility] Comment on above: Performed By: #### L IPA, CMP, HSTROPN #### [facility] [address] [address] [address] Oh Trotter ALT [Catalytic activity/Vol] 47 U/L Normal 16-63 [facility] Comment on above: Performed By: #### L IPA, CMP, HSTROPN #### [facility] [address] [address] [address] Oh Trotter Anion gap [Moles/Vol] 13.8 mmol/L Normal [facility] Comment on above: Performed By: #### L IPA, CMP, HSTROPN #### [facility] [address] [place] [address] Dr. Oh Trotter AST [Catalytic activity/Vol] 18 U/L Normal 15-37 [facility] Comment on above: Performed By: #### L IPA, CMP, HSTROPN #### [facility] [address] [place] [address] Dr. Oh Trotter Bilirubin [Mass/Vol] 0.3 mg/dL Normal 0.2-1.0 [facility] Comment on above: Performed By: #### L IPA, CMP, HSTROPN #### [facility] [address] [place] [address] Dr. Oh Trotter Calcium [Mass/Vol] 8.8 mg/dL Normal 8.5-10.1 [facility] Comment on above: Performed By: #### L IPA, CMP, HSTROPN #### [facility] [address] [place] [address] Dr. Oh Trotter Chloride [Moles/Vol] 105 mmol/L Normal 98-107 [facility] Comment on above: Performed By: #### L IPA, CMP, HSTROPN #### [facility] [address] [place] [address] Dr. Oh Trotter CO2 [Moles/Vol] 25.2 mmol/L Normal 21.0-32.0 [facility] Comment on above: Performed By: #### L IPA, CMP, HSTROPN #### [facility] [address] [place] [address] Dr. Oh Trotter Creatinine [Mass/Vol] 1.02 mg/dL Normal 0.70-1.30 [facility] Comment on above: Performed By: #### L IPA, CMP, HSTROPN #### [facility] [address] [address] [address] Oh Trotter EGFR-AF KAZAKH >60 Normal >=60 [facility] Comment on above: Performed By: #### L IPA, CMP, HSTROPN #### [facility] [address] [address] [address] Oh Trotter EGFR-NON AF KAZAKH >60 Normal >=60 [facility] Comment on above: Performed By: #### L IPA, CMP, HSTROPN #### [facility] [address] [address] [address] Oh Trotter Globulin (S) [Mass/Vol] 4.2 g/dL Normal [facility] Comment on above: Performed By: #### L IPA, CMP, HSTROPN #### [facility] [address] [address] [address] Oh Trotter Glucose [Mass/Vol] 104 mg/dL Normal 74-106 [facility] Comment on above: Performed By: #### L IPA, CMP, HSTROPN #### [facility] [address] [address] [address] Oh Trotter Potassium [Moles/Vol] 4.0 mmol/L Normal 3.5-5.1 [facility] Comment on above: Performed By: #### L IPA, CMP, HSTROPN #### [facility] [address] [address] [address] Oh Trotter Protein [Mass/Vol] 8.1 g/dL Normal 6.4-8.2 [facility] Comment on above: Performed By: #### L IPA, CMP, HSTROPN #### [facility] [address] [address] [address] Oh Trotter Sodium [Moles/Vol] 140 mmol/L Normal 136-145 [facility] Comment on above: Performed By: #### L IPA, CMP, HSTROPN #### [facility] [address] [address] [address] Oh Trotter Urea nitrogen [Mass/Vol] 16.0 mg/dL Normal 7.0-18.0 [facility] Comment on above: Performed By: #### L IPA, CMP, HSTROPN #### [facility] [address] [place] [address] Dr. Oh Trotter Urea nitrogen/Creatinine [Mass ratio] 15.7 mg/mg Normal [facility] Comment on above: Performed By: #### L IPA, CMP, HSTROPN #### [facility] [address] [place] [address] Dr. Oh Trotter PROTIMEon 07-28-2022 INR Coag (PPP) [Relative time] {INR} Normal [facility] Comment on above: Performed By: #### P TT, PT #### [facility] [address] [place] [address] Dr. Oh Trotter INR GUIDELINES SEE BELOW Normal [facility] Comment on above: Result Comment: ADITHYA RED INR: 2.0 - 3.0 CONDITIONS NOT LISTED BELOW 2.5 - 3.5 FOR PROSTHETIC HEART VALVE REPLACEMENT 2.5 - 3.5 RECURRENT THROMBOSIS Performed By: #### P TT, PT #### [facility] [address] [place] [address] Dr. Oh Trotter PT Coag (PPP) [Time] 9.8 s Normal 9.0-11.6 [facility] Comment on above: Performed By: #### P TT, PT #### [facility] [address] [place] [address] Dr. Oh Trotter PTTon 07-28-2022 aPTT Coag (Bld) [Time] 26.6 s Normal 22.3-36.2 [facility] Comment on above: Performed By: #### P TT, PT #### [facility] [address] [place] [address] Dr. Oh Trotter [facility] SARS-CoV-2 (COVID-19) RNA SHAE+probe Ql (Unsp spec) Not detected Normal NOT DETECTED [facility] Comment on above: Result Comment: This test is not yet approved or cleared by the [place] FDA. When there are no FDA-approved or cleared tests available, and other criteria are met, FDA can make tests available under an emergency access mechanism called an Emergency Use Authorization (EUA). The EUA for this test is supported by the [place] of Health and Human Service's (HHS's) declaration [...] Performed By: #### P TT, PT #### [facility] [address] [place] [address] Dr. Oh Trotter INFLUENZA A AND B AGon 05-11 [facility] SEE BELOW Normal [facility] Comment on above: Result Comment: Nega tive for Flu A protein angiten. Infection due to Flu A cannot be ruled out. Flu A angiten in the sample may be below the detection limit of the test. Performed By: #### L IPA, CMP, HSTROPN #### [facility] [address] [place] [address] Dr. Oh Trot[facility] BELOW [facility] Comment on above: Result Comment: Nega tive for Flu B protein antigen. Infection due to Flu B cannot be ruled out. Flu B antigen in the sample may be below the detection limit of the test. Performed By: #### L IPA, CMP, HSTROPN #### [facility] [address] [place] [address] Dr. Oh Trotter INFLUENZA A AG Negative Normal NEGATIVE SEE COMMENT [facility] Comment on above: Performed By: #### L IPA, CMP, HSTROPN #### [facility] [address] [place] [address] Dr. Oh Trotter INFLUENZA B AG Negative Normal NEGATIVE SEE COMMENT [facility] Comment on above: Performed By: #### L IPA, CMP, HSTROPN #### [facility] [address] [place] [address] Dr. Oh Trotter CBC AUTO DIFFon 03-06-2022 BASO # 0.0 103/ul Normal 0.0-0.1 [facility] Comment on above: Performed By: #### P TT, PT #### [facility] [address] [place] [address] Dr. Oh Trotter Basophils/100 WBC (Bld) 0.2 % Normal 0.2-2.0 [facility] Comment on above: Performed By: #### P TT, PT #### [facility] [address] [place] [address] Dr. Oh Trotter EO # 0.0 103/ul Normal 0.0-0.7 [facility] Comment on above: Performed By: #### P TT, PT #### [facility] [address] [place] [address] Dr. Oh Trotter Eosinophils/100 WBC (Bld) 0.4 % Critically low 0.9-7.0 [facility] Comment on above: Performed By: #### P TT, PT #### [facility] [address] [place] [address] Dr. Oh Trotter Erythrocyte distribution width (RBC) [Ratio] 12.2 % Normal 11.0-15.0 [facility] Comment on above: Performed By: #### P TT, PT #### [facility] [address] [place] [address] Dr. Oh Trotter Hematocrit (Bld) [Volume fraction] 45.7 % Normal 42.0-54.0 [facility] Comment on above: Performed By: #### P TT, PT #### [facility] [address] [place] [address] Dr. Oh Trotter Hemoglobin (Bld) [Mass/Vol] 16.0 g/dL Normal 14.0-18.0 [facility] Comment on above: Performed By: #### P TT, PT #### [facility] [address] [place] [address] Dr. Oh Trotter IG # 0.04 10e3/ul Critically high 0.00-0.03 [facility] Comment on above: Performed By: #### P TT, PT #### [facility] [address] [place] [address] Dr. Oh Trotter IG % 0.4 % Normal 0.0-0.5 [facility] Comment on above: Performed By: #### P TT, PT #### [facility] [address] [place] [address] Dr. Oh Trotter LYMPH # 2.8 103/ul Normal 1.2-3.8 [facility] Comment on above: Performed By: #### P TT, PT #### [facility] [address] [place] [address] Dr. Oh Trotter Lymphocytes/100 WBC (Bld) 29.5 % Normal 20.5-60.0 [facility] Comment on above: Performed By: #### P TT, PT #### [facility] [address] [place] [address] Dr. Oh Trotter MANUAL DIFF REQ NO Normal [facility] Comment on above: Performed By: #### P TT, PT #### [facility] [address] [place] [address] Dr. Oh Trotter MCH (RBC) [Entitic mass] 29.7 pg Normal 25.9-34.0 [facility] Comment on above: Performed By: #### P TT, PT #### [facility] [address] [place] [address] Dr. Oh Trotter MCHC (RBC) [Mass/Vol] 35.0 g/dL Normal 29.9-35.2 [facility] Comment on above: Performed By: #### P TT, PT #### [facility] [address] [place] [address] Dr. Oh Trotter MCV (RBC) [Entitic vol] 84.8 fL Normal 80.0-94.0 [facility] Comment on above: Performed By: #### P TT, PT #### [facility] [address] [place] [address] Dr. Oh Trotter MONO # 0.5 103/ul Normal 0.3-0.8 [facility] Comment on above: Performed By: #### P TT, PT #### [facility] [address] [place] [address] Dr. Oh Trotter Monocytes/100 WBC (Bld) 5.2 % Normal 1.7-12.0 [facility] Comment on above: Performed By: #### P TT, PT #### [facility] [address] [place] [address] Dr. Oh Trotter NEUT # 6.2 103/ul Normal 1.4-6.5 [facility] Comment on above: Performed By: #### P TT, PT #### [facility] [address] [place] [address] Dr. Oh Trotter Neutrophils/100 WBC (Bld) 64.3 % Normal 43.0-75.0 [facility] Comment on above: Performed By: #### P TT, PT #### [facility] [address] [place] [address] Dr. Oh Trotter Platelet mean volume (Bld) [Entitic vol] 9.9 fL Normal 9.5-13.5 [facility] Comment on above: Performed By: #### P TT, PT #### [facility] [address] [place] [address] Dr. Oh Trotter PLT 196 103/ul Normal 150-450 [facility] Comment on above: Performed By: #### P TT, PT #### [facility] [address] [place] [address] Dr. Oh Trotter RBC 5.39 106/ul Normal 4.70-6.10 [facility] Comment on above: Performed By: #### P TT, PT #### [facility] [address] [place] [address] Dr. Oh Trotter WBC 9.6 103/ul Normal 4.0-11.0 [facility] Comment on above: Performed By: #### P TT, PT #### [facility] [address] [place] [address] Dr. Oh Trotter D-DIMERon 11-04-2022 D-DIMER <0.19 Normal <=0.59 [facility] Comment on above: Performed By: #### P TT, PT #### [facility] [address] [place] [address] Dr. Oh Trotter D-DIMER COMMENTS SEE BELOW Normal [facility] Comment on above: Result Comment: Incr [...] Performed By: #### P TT, PT #### [facility] [address] [place] [address] Dr. Oh Trotter ER URINE PROFILEon 2 Bilirubin Ql (U) Negative Normal NEGATIVE [facility] Comment on above: Performed By: #### Marcelo RUR UMICRO #### [facility] [address] [place] [address] Dr. Oh Trotter Clarity (U) CLEAR Normal CLEAR [facility] Comment on above: Performed By: #### E RUR, UMICRO #### [facility] [address] [place] [address] Dr. Oh Trotter Color (U) LT. YELLOW Normal YELLOW [facility] Comment on above: Performed By: #### E RUR, UMICRO #### [facility] [address] [place] [address] Dr. Oh Trotter ERUAHD A micrscopic examination will be performed if indicated. Normal [facility] Comment on above: Performed By: #### E RUR, UMICRO #### [facility] [address] [place] [address] Dr. Oh Trotter Glucose Ql (U) Negative Normal NEGATIVE [facility] Comment on above: Performed By: #### E RUR, UMICRO #### [facility] [address] [place] [address] Dr. Oh Trotter Hemoglobin Ql (U) SMALL Abnormal NEGATIVE [facility] Comment on above: Performed By: #### MATHIEU STONERRO #### [facility] [address] [place] [address] Dr. Oh Trotter Ketones Ql (U) Negative Normal NEGATIVE [facility] Comment on above: Performed By: #### MATHIEU STONERRO #### [facility] [address] [place] [address] Dr. Oh Trotter LEUKOCYTES Negative Normal NEGATIVE [facility] Comment on above: Performed By: #### MATHIEU STONERRO #### [facility] [address] [place] [address] Dr. Oh Trotter Nitrite Ql (U) Negative Normal NEGATIVE [facility] Comment on above: Performed By: #### MATHIEU STONERRO #### [facility] [address] [place] [address] Dr. Oh Trotter pH (U) 6.0 [pH] Normal 5-9 [facility] Comment on above: Performed By: #### MATHIEU STONERRO #### [facility] [address] [place] [address] Dr. Oh Trotter SPEC GRAVITY 1.025 Normal 1.005-<=1.025 [facility] Comment on above: Performed By: #### MATHIEU STONERRO #### [facility] [address] [place] [address] Dr. Oh Trotter UA PROTEIN Negative Normal NEGATIVE/ TRACE [facility] Comment on above: Performed By: #### AUBRIE STONERICRO #### [facility] [address] [place] [address] Dr. Oh Trotter UR MICRO IND INDICATED Normal [facility] Comment on above: Performed By: #### MATHIEU STONERRO #### [facility] [address] [place] [address] Dr. Oh Trotter Urobilinogen Qn (U) 0.2 {Federico'U}/dL Normal 0.2 - 1. 0 [facility] Comment on above: Performed By: #### E OSVALDO GLOVER #### [facility] [address] [place] [address] Dr. Oh Trotter LIPASEon 03-06-2022 Lipase [Catalytic activity/Vol] 125.0 U/L Normal 73.0-393.0 [facility] Comment on above: Performed By: #### L IPA, CMP, HSTROPN #### [facility] [address] [address] [address] Oh Trotter PROF 14(COMP METB)on 022 Albumin [Mass/Vol] 3.8 g/dL Normal 3.4-5.0 [facility] Comment on above: Performed By: #### L IPA, CMP, HSTROPN #### [facility] [address] [place] [address] Dr. Oh Trotter Albumin/Globulin [Mass ratio] 0.8 {ratio} Normal [facility] Comment on above: Performed By: #### L IPA, CMP, HSTROPN #### [facility] [address] [place] [address] Dr. Oh Trotter ALP [Catalytic activity/Vol] 77 U/L Normal 46-116 [facility] Comment on above: Performed By: #### L IPA, CMP, HSTROPN #### [facility] [address] [place] [address] Dr. Oh Trotter ALT [Catalytic activity/Vol] 39 U/L Normal 16-63 [facility] Comment on above: Performed By: #### L IPA, CMP, HSTROPN #### [facility] [address] [place] [address] Dr. Oh Trotter Anion gap [Moles/Vol] 9.3 mmol/L Normal [facility] Comment on above: Performed By: #### L IPA, CMP, HSTROPN #### [facility] [address] [place] [address] Dr. Oh Trotter AST [Catalytic activity/Vol] 21 U/L Normal 15-37 [facility] Comment on above: Performed By: #### L IPA, CMP, HSTROPN #### [facility] [address] [address] [address] Oh Trotter Bilirubin [Mass/Vol] 0.4 mg/dL Normal 0.2-1.0 [facility] Comment on above: Performed By: #### L IPA, CMP, HSTROPN #### [facility] [address] [address] [address] Oh Trotter Calcium [Mass/Vol] 9.2 mg/dL Normal 8.5-10.1 [facility] Comment on above: Performed By: #### L IPA, CMP, HSTROPN #### [facility] [address] [place] [address] Dr. Oh Trotter Chloride [Moles/Vol] 102 mmol/L Normal 98-107 [facility] Comment on above: Performed By: #### L IPA, CMP, HSTROPN #### [facility] [address] [place] [address] Dr. Oh Trotter CO2 [Moles/Vol] 26.6 mmol/L Normal 21.0-32.0 [facility] Comment on above: Performed By: #### L IPA, CMP, HSTROPN #### [facility] [address] [place] [address] Dr. Oh Trotter Creatinine [Mass/Vol] 1.08 mg/dL Normal 0.70-1.30 [facility] Comment on above: Performed By: #### L IPA, CMP, HSTROPN #### [facility] [address] [place] [address] Dr. Oh Trotter EGFR-AF KAZAKH >60 Normal >=60 [facility] Comment on above: Performed By: #### L IPA, CMP, HSTROPN #### [facility] [address] [place] [address] Dr. Oh Trotter EGFR-NON AF KAZAKH >60 Normal >=60 [facility] Comment on above: Performed By: #### L IPA, CMP, HSTROPN #### [facility] [address] [place], [place] [id number] Dr. Oh Trotter Globulin (S) [Mass/Vol] 4.7 g/dL Normal [facility] Comment on above: Performed By: #### L IPA, CMP, HSTROPN #### [facility] [address] [address] [address] Oh Trotter Glucose [Mass/Vol] 103 mg/dL Normal 74-106 [facility] Comment on above: Performed By: #### L IPA, CMP, HSTROPN #### [facility] [address] [place] [address] Dr. Oh Trotter Potassium [Moles/Vol] 3.9 mmol/L Normal 3.5-5.1 [facility] Comment on above: Performed By: #### L IPA, CMP, HSTROPN #### [facility] [address] [place] [address] Dr. Oh Trotter Protein [Mass/Vol] 8.5 g/dL Critically high 6.4-8.2 [facility] Comment on above: Performed By: #### L IPA, CMP, HSTROPN #### [facility] [address] [address] [address] Oh Trotter Sodium [Moles/Vol] 134 mmol/L Critically low 136-145 [facility] Comment on above: Performed By: #### L IPA, CMP, HSTROPN #### [facility] [address] [address] [address] Oh Trotter Urea nitrogen [Mass/Vol] 20.0 mg/dL Critically high 7.0-18.0 [facility] Comment on above: Performed By: #### L IPA, CMP, HSTROPN #### [facility] [address] [address] [address] Oh Trotter Urea nitrogen/Creatinine [Mass ratio] 18.5 mg/mg [facility] Comment on above: Performed By: #### L IPA, CMP, HSTROPN #### [facility] [address] [address] [address] Oh Trotter PROTIMEon 03-06-2022 INR Coag (PPP) [Relative time] 1.00 {INR} Normal [facility] Comment on above: Performed By: #### P TT, PT #### [facility] [address] [place] [address] Dr. Oh Trotter INR GUIDELINES SEE BELOW Normal [facility] Comment on above: Result Comment: ADITHYA RED INR: 2.0 - 3.0 CONDITIONS NOT LISTED BELOW 2.5 - 3.5 FOR PROSTHETIC HEART VALVE REPLACEMENT 2.5 - 3.5 RECURRENT THROMBOSIS Performed By: #### P TT, PT #### [facility] [address] [place] [address] Dr. Oh Trotter PT Coag (PPP) [Time] 10.8 s Normal 9.0-11.6 [facility] Comment on above: Performed By: #### P TT, PT #### [facility] [address] [place] [address] Dr. Oh Trotter PTTon 03-06-2022 aPTT Coag (Bld) [Time] 27.9 s Normal 22.3-36.2 [facility] Comment on above: Performed By: #### P TT, PT #### [facility] [address] [place] [address] Dr. Oh Trotter TROPONIN, HIGH SENSITIVITYon 03-06-2022 HSTROP 7.9 pg/mL Normal 4.0-76.1 [facility] Comment on above: Result Comment: CUT- OFF POINTS HAVE BEEN ESTABLISHED BASED ON THE FOURTH UNIVERSAL DEFINITIONS OF MYOCARDIAL INFARCTION. THE UPPER REFERENCE LIMIT (URL) OF TROPONIN, DEFINED THE 99TH PERCENTILE OF cTnI DISTRIBUTION IN A REFERENCE POPULATION, HAS BEEN CONFIRMED THE DECISION THRESHOLD FOR OH DIAGNOSIS. Performed By: #### L IPA, CMP, HSTROPN #### [facility] [address] [place] [address] Dr. Oh Trotter URINE MICROSCOPIC ONLYon BACTERIA NONE SEEN Normal NONE SEEN [facility] Comment on above: Performed By: #### E RUR, UMICRO #### [facility] [address] [place] [address] Dr. Oh Trotter Bacteria identified Cx Nom (U) NOT INDICATED Normal [facility] Comment on above: Performed By: #### E RUR, UMICRO #### [facility] [address] [place] [address] Dr. Oh Trotter CAST NONE SEEN Normal NONE SEEN [facility] Comment on above: Performed By: #### E RUR, UMICRO #### [facility] [address] [place] [address] Dr. Oh Trotter Crystals LM Nom (Urine sed) NONE SEEN Normal NONE SEEN [facility] Comment on above: Performed By: #### E RUR, UMICRO #### [facility] [address] [place] [address] Dr. Oh Trotter Epithelial cells LM Ql (Urine sed) FEW Abnormal NONE SEEN /RARE [facility] Comment on above: Performed By: #### E RUR, UMICRO #### [facility] [address] [place] [address] Dr. Oh Trotter MUCOUS MODERATE Abnormal NONE SEEN [facility] Comment on above: Performed By: #### E RUR, UMICRO #### [facility] [address] [place] [address] Dr. Oh Trotter RBC 0-2 Normal 0-2 [facility] Comment on above: Performed By: #### E JUNER, UMICRO #### [facility] [address] [place] [address] Dr. Oh Trotter WBC NONE SEEN Normal NONE SEEN [facility] Comment on above: Performed By: #### E JUNER, UMICRO #### [facility] [address] [place] [address] Dr. Oh Trotter XR ABD FLAT UP_PA [...] LUCY JEWELL Date: 2022-03-06 15:55 Normal [facility] XR CSPINE 2_3 VIEWSon 2021 XR [...] LUCY JEWELL Date: 2022-03-06 15:54 Normal [facility] CBC AUTO DIFFon 11-02-2021 BASO # 0.0 103/ul Normal 0.0-0.1 [facility] Comment on above: Performed By: #### L IPA, CMP, HSTROPN #### [facility] [address] [address] [address] Oh Trotter Basophils/100 WBC (Bld) 0.2 % Normal 0.2-2.0 [facility] Comment on above: Performed By: #### L IPA, CMP, HSTROPN #### [facility] [address] [address] [address] Oh Trotter EO # 0.1 103/ul Normal 0.0-0.7 [facility] Comment on above: Performed By: #### L IPA, CMP, HSTROPN #### [facility] [address] [address] [address] Oh Trotter Eosinophils/100 WBC (Bld) 1.0 % Normal 0.9-7.0 [facility] Comment on above: Performed By: #### L IPA, CMP, HSTROPN #### [facility] [address] [address] [address] Oh Trotter Erythrocyte distribution width (RBC) [Ratio] 13.0 % Normal 11.0-15.0 [facility] Comment on above: Performed By: #### L IPA, CMP, HSTROPN #### [facility] [address] [address] [address] Oh Trotter Hematocrit (Bld) [Volume fraction] 46.6 % Normal 42.0-54.0 [facility] Comment on above: Performed By: #### L IPA, CMP, HSTROPN #### [facility] [address] [place] [address] Dr. Oh Trotter Hemoglobin (Bld) [Mass/Vol] 15.8 g/dL Normal 14.0-18.0 [facility] Comment on above: Performed By: #### L IPA, CMP, HSTROPN #### [facility] [address] [place] [address] Dr. Oh Trotter IG # 0.02 10e3/ul Normal 0.00-0.03 [facility] Comment on above: Performed By: #### L IPA, CMP, HSTROPN #### [facility] [address] [place] [address] Dr. Oh Trotter IG % 0.2 % Normal 0.0-0.5 [facility] Comment on above: Performed By: #### L IPA, CMP, HSTROPN #### [facility] [address] [place] [address] Dr. Oh Trotter LYMPH # 1.6 103/ul Normal 1.2-3.8 [facility] Comment on above: Performed By: #### L IPA, CMP, HSTROPN #### [facility] [address] [place] [address] Dr. Oh Trotter Lymphocytes/100 WBC (Bld) 15.3 % Critically low 20.5-60.0 [facility] Comment on above: Performed By: #### L IPA, CMP, HSTROPN #### [facility] [address] [place] [address] Dr. Oh Trotter MANUAL DIFF REQ NO Normal [facility] Comment on above: Performed By: #### L IPA, CMP, HSTROPN #### [facility] [address] [address] [address] Oh Trotter MCH (RBC) [Entitic mass] 30.1 pg Normal 25.9-34.0 [facility] Comment on above: Performed By: #### L IPA, CMP, HSTROPN #### [facility] [address] [place] [address] Dr. Oh Trotter MCHC (RBC) [Mass/Vol] 33.9 g/dL Normal 29.9-35.2 [facility] Comment on above: Performed By: #### L IPA, CMP, HSTROPN #### [facility] [address] [place] [address] Dr. Oh Trotter MCV (RBC) [Entitic vol] 88.8 fL Normal 80.0-94.0 [facility] Comment on above: Performed By: #### L IPA, CMP, HSTROPN #### [facility] [address] [place] [address] Dr. Oh Trotter MONO # 0.7 103/ul Normal 0.3-0.8 [facility] Comment on above: Performed By: #### L IPA, CMP, HSTROPN #### [facility] [address] [place] [address] Dr. Oh Trotter Monocytes/100 WBC (Bld) 6.8 % Normal 1.7-12.0 [facility] Comment on above: Performed By: #### L IPA, CMP, HSTROPN #### [facility] [address] [place] [address] Dr. Oh Trotter NEUT # 7.9 103/ul Critically high 1.4-6.5 [facility] Comment on above: Performed By: #### L IPA, CMP, HSTROPN #### [facility] [address] [place] [address] Dr. Oh Trotter Neutrophils/100 WBC (Bld) 76.5 % Critically high 43.0-75.0 [facility] Comment on above: Performed By: #### L IPA, CMP, HSTROPN #### [facility] [address] [place] [address] Dr. Oh Trotter Platelet mean volume (Bld) [Entitic vol] 9.5 fL Normal 9.5-13.5 [facility] Comment on above: Performed By: #### L IPA, CMP, HSTROPN #### [facility] [address] [place] [address] Dr. Oh Trotter PLT 191 103/ul Normal 150-450 [facility] Comment on above: Performed By: #### L IPA, CMP, HSTROPN #### [facility] [address] [address] [address] Oh Trotter RBC 5.25 106/ul Normal 4.70-6.10 [facility] Comment on above: Performed By: #### L IPA, CMP, HSTROPN #### [facility] [address] [place] [address] Dr. Oh Trotter WBC 10.4 103/ul Normal 4.0-11.0 [facility] Comment on above: Performed By: #### L IPA, CMP, HSTROPN #### [facility] [address] [place] [address] Dr. Oh Trotter PROF CHEM 8 (BAS METB)on Anion gap [Moles/Vol] 9.7 mmol/L Normal [facility] Comment on above: Performed By: #### L IPA, CMP, HSTROPN #### [facility] [address] [place] [address] Dr. Oh Trotter Calcium [Mass/Vol] 8.9 mg/dL Normal 8.5-10.1 [facility] Comment on above: Performed By: #### L IPA, CMP, HSTROPN #### [facility] [address] [place] [address] Dr. Oh Trotter Chloride [Moles/Vol] 102 mmol/L Normal 98-107 [facility] Comment on above: Performed By: #### L IPA, CMP, HSTROPN #### [facility] [address] [place] [address] Dr. Oh Trotter CO2 [Moles/Vol] 29.1 mmol/L Normal 21.0-32.0 [facility] Comment on above: Performed By: #### L IPA, CMP, HSTROPN #### [facility] [address] [address] [address] Oh Trotter Creatinine [Mass/Vol] 1.10 mg/dL Normal 0.70-1.30 [facility] Comment on above: Performed By: #### L IPA, CMP, HSTROPN #### [facility] [address] [address] [address] Oh Trotter EGFR-AF KAZAKH >60 Normal >=60 [facility] Comment on above: Performed By: #### L IPA, CMP, HSTROPN #### [facility] [address] [place] [address] Dr. Oh Trotter EGFR-NON AF KAZAKH >60 Normal >=60 [facility] Comment on above: Performed By: #### L IPA, CMP, HSTROPN #### [facility] [address] [place] [address] Dr. Oh Trotter Glucose [Mass/Vol] 114 mg/dL Critically high 74-106 [facility] Comment on above: Performed By: #### L IPA, CMP, HSTROPN #### [facility] [address] [place] [address] Dr. Oh Trotter Potassium [Moles/Vol] 3.8 mmol/L Normal 3.5-5.1 [facility] Comment on above: Performed By: #### L IPA, CMP, HSTROPN #### [facility] [address] [address] [address] Oh Trotter Sodium [Moles/Vol] 137 mmol/L Normal 136-145 [facility] Comment on above: Performed By: #### L IPA, CMP, HSTROPN #### [facility] [address] [address] [address] Oh Trotter Urea nitrogen [Mass/Vol] 10.0 mg/dL Normal 7.0-18.0 [facility] Comment on above: Performed By: #### L IPA, CMP, HSTROPN #### [facility] [address] [address] [address] Oh Trotter Urea nitrogen/Creatinine [Mass ratio] 9.1 mg/mg Normal [facility] Comment on above: Performed By: #### L IPA, CMP, HSTROPN #### [facility] [address] [address] [address] Oh Trotter CARDIAC SUKUMAR ADMITon 022 CK [Catalytic activity/Vol] 97 U/L Normal 39-308 [facility] Comment on above: Performed By: #### L IPA, CMP, HSTROPN #### [facility] [address] [address] [address] Oh Trotter CK.MB [Mass/Vol] 0.75 ng/mL Normal <=3.60 [facility] Comment on above: Performed By: #### L IPA, CMP, HSTROPN #### [facility] [address] [address] [address] Oh Trotter HSTROP 4.4 pg/mL Normal 4.0-76.1 [facility] Comment on above: Result Comment: CUT- OFF POINTS HAVE BEEN ESTABLISHED BASED ON THE FOURTH UNIVERSAL DEFINITIONS OF MYOCARDIAL INFARCTION. THE UPPER REFERENCE LIMIT (URL) OF TROPONIN, DEFINED THE 99TH PERCENTILE OF cTnI DISTRIBUTION IN A REFERENCE POPULATION, HAS BEEN CONFIRMED THE DECISION THRESHOLD FOR OH DIAGNOSIS. Performed By: #### L IPA, CMP, HSTROPN #### [facility] [address] [address] [address] Oh Trotter CARON 54 ng/mL Normal 16-96 [facility] Comment on above: Performed By: #### L IPA, CMP, HSTROPN #### [facility] [address] [address] [address] Oh Trotter CBC AUTO DIFFon 10-16-2021 BASO # 0.0 103/ul Normal 0.0-0.1 [facility] Comment on above: Performed By: #### P TT, PT #### [facility] [address] [address] [address] Oh Trotter Basophils/100 WBC (Bld) 0.1 % Critically low 0.2-2.0 [facility] Comment on above: Performed By: #### P TT, PT #### [facility] [address] [place] [address] Dr. Oh Trotter EO # 0.0 103/ul Normal 0.0-0.7 [facility] Comment on above: Performed By: #### P TT, PT #### [facility] [address] [place] [address] Dr. Oh Trotter Eosinophils/100 WBC (Bld) 0.3 % Critically low 0.9-7.0 [facility] Comment on above: Performed By: #### P TT, PT #### [facility] [address] [place] [address] Dr. Oh Trotter Erythrocyte distribution width (RBC) [Ratio] 12.5 % Normal 11.0-15.0 [facility] Comment on above: Performed By: #### P TT, PT #### [facility] [address] [place] [address] Dr. Oh Trotter Hematocrit (Bld) [Volume fraction] 47.1 % Normal 42.0-54.0 [facility] Comment on above: Performed By: #### P TT, PT #### [facility] [address] [place] [address] Dr. Oh Trotter Hemoglobin (Bld) [Mass/Vol] 16.7 g/dL Normal 14.0-18.0 [facility] Comment on above: Performed By: #### P TT, PT #### [facility] [address] [place] [address] Dr. Oh Trotter IG # 0.02 10e3/ul Normal 0.00-0.03 [facility] Comment on above: Performed By: #### P TT, PT #### [facility] [address] [place] [address] Dr. Oh Trotter IG % 0.3 % Normal 0.0-0.5 [facility] Comment on above: Performed By: #### P TT, PT #### [facility] [address] [place] [address] Dr. Oh Trotter LYMPH # 2.3 103/ul Normal 1.2-3.8 [facility] Comment on above: Performed By: #### P TT, PT #### [facility] [address] [place] [address] Dr. Oh Trotter Lymphocytes/100 WBC (Bld) 31.7 % Normal 20.5-60.0 [facility] Comment on above: Performed By: #### P TT, PT #### [facility] [address] [place] [address] Dr. Oh Trotter MANUAL DIFF REQ NO Normal [facility] Comment on above: Performed By: #### P TT, PT #### [facility] [address] [place] [address] Dr. Oh Trotter MCH (RBC) [Entitic mass] 29.9 pg Normal 25.9-34.0 [facility] Comment on above: Performed By: #### P TT, PT #### [facility] [address] [place] [address] Dr. Oh Trotter MCHC (RBC) [Mass/Vol] 35.5 g/dL Critically high 29.9-35.2 [facility] Comment on above: Performed By: #### P TT, PT #### [facility] [address] [place] [address] Dr. Oh Trotter MCV (RBC) [Entitic vol] 84.4 fL Normal 80.0-94.0 [facility] Comment on above: Performed By: #### P TT, PT #### [facility] [address] [place] [address] Dr. Oh Trotter MONO # 0.4 103/ul Normal 0.3-0.8 [facility] Comment on above: Performed By: #### P TT, PT #### [facility] [address] [place] [address] Dr. Oh Trotter Monocytes/100 WBC (Bld) 4.9 % Normal 1.7-12.0 [facility] Comment on above: Performed By: #### P TT, PT #### [facility] [address] [place] [address] Dr. Oh Trotter NEUT # 4.6 103/ul Normal 1.4-6.5 [facility] Comment on above: Performed By: #### P TT, PT #### [facility] [address] [place] [address] Dr. Oh Trotter Neutrophils/100 WBC (Bld) 62.7 % Normal 43.0-75.0 [facility] Comment on above: Performed By: #### P TT, PT #### [facility] [address] [place] [address] Dr. Oh Trotter Platelet mean volume (Bld) [Entitic vol] 10.3 fL Normal 9.5-13.5 [facility] Comment on above: Performed By: #### P TT, PT #### [facility] [address] [place] [address] Dr. Oh Trotter PLT 225 103/ul Normal 150-450 [facility] Comment on above: Performed By: #### P TT, PT #### [facility] [address] [place] [address] Dr. Oh Trotter RBC 5.58 106/ul Normal 4.70-6.10 [facility] Comment on above: Performed By: #### P TT, PT #### [facility] [address] [place] [address] Dr. Oh Trotter WBC 7.3 103/ul Normal 4.0-11.0 [facility] Comment on above: Performed By: #### P TT, PT #### [facility] [address] [place] [address] Dr. Oh Trotter D-DIMERon 10-16-2021 D-DIMER <0.19 Normal <=0.59 [facility] Comment on above: Performed By: #### P TT, PT #### [facility] [address] [place] [address] Dr. Oh Trotter D-DIMER COMMENTS SEE BELOW Normal [facility] Comment on above: [...] Performed By: #### P TT, PT #### [facility] [address] [place] [address] Dr. Oh Trotter LIPASEon 10-16-2021 Lipase [Catalytic activity/Vol] 127.0 U/L Normal 73.0-393.0 [facility] Comment on above: Performed By: #### L IPA, CMP, HSTROPN #### [facility] [address] [place] [address] Dr. Oh Trotter PROF 14(COMP METB)on 022 Albumin [Mass/Vol] 4.0 g/dL Normal 3.4-5.0 [facility] Comment on above: Performed By: #### L IPA, CMP, HSTROPN #### [facility] [address] [place] [address] Dr. Oh Trotter Albumin/Globulin [Mass ratio] 0.9 {ratio} Normal [facility] Comment on above: Performed By: #### L IPA, CMP, HSTROPN #### [facility] [address] [place] [address] Dr. Oh Trotter ALP [Catalytic activity/Vol] 73 U/L Normal 46-116 [facility] Comment on above: Performed By: #### L IPA, CMP, HSTROPN #### [facility] [address] [place] [address] Dr. Oh Trotter ALT [Catalytic activity/Vol] 45 U/L Normal 16-63 [facility] Comment on above: Performed By: #### L IPA, CMP, HSTROPN #### [facility] [address] [place] [address] Dr. Oh Trotter Anion gap [Moles/Vol] 15.4 mmol/L Normal [facility] Comment on above: Performed By: #### L IPA, CMP, HSTROPN #### [facility] [address] [address] [address] Oh Trotter AST [Catalytic activity/Vol] 25 U/L Normal 15-37 [facility] Comment on above: Performed By: #### L IPA, CMP, HSTROPN #### [facility] [address] [address] [address] Oh Trotter Bilirubin [Mass/Vol] 0.9 mg/dL Normal 0.2-1.0 [facility] Comment on above: Performed By: #### L IPA, CMP, HSTROPN #### [facility] [address] [place] [address] Dr. Oh Trotter Calcium [Mass/Vol] 9.3 mg/dL Normal 8.5-10.1 [facility] Comment on above: Performed By: #### L IPA, CMP, HSTROPN #### [facility] [address] [place] [address] Dr. Oh Trotter Chloride [Moles/Vol] 103 mmol/L Normal 98-107 [facility] Comment on above: Performed By: #### L IPA, CMP, HSTROPN #### [facility] [address] [place] [address] [address] Oh Trotter CO2 [Moles/Vol] 20.4 mmol/L Critically low 21.0-32.0 [facility] Comment on above: Performed By: #### L IPA, CMP, HSTROPN #### [facility] [address] [place] [address] Dr. Oh Trotter Creatinine [Mass/Vol] 1.17 mg/dL Normal 0.70-1.30 [facility] Comment on above: Performed By: #### L IPA, CMP, HSTROPN #### [facility] [address] [place] [address] Dr. Oh Trotter EGFR-AF KAZAKH >60 Normal >=60 [facility] Comment on above: Performed By: #### L IPA, CMP, HSTROPN #### [facility] [address] [place] [address] Dr. Oh Trotter EGFR-NON AF KAZAKH >60 Normal >=60 [facility] Comment on above: Performed By: #### L IPA, CMP, HSTROPN #### [facility] [address] [place] [address] [address] Oh Trotter Globulin (S) [Mass/Vol] 4.6 g/dL Normal [facility] Comment on above: Performed By: #### L IPA, CMP, HSTROPN #### [facility] [address] [place] [address] [address] Oh Trotter Glucose [Mass/Vol] 127 mg/dL Critically high 74-106 [facility] Comment on above: Performed By: #### L IPA, CMP, HSTROPN #### [facility] [address] [place] [address] Dr. Oh Trotter Potassium [Moles/Vol] 3.8 mmol/L Normal 3.5-5.1 [facility] Comment on above: Performed By: #### L IPA, CMP, HSTROPN #### [facility] [address] [place] [address] Dr. Oh Trotter Protein [Mass/Vol] 8.6 g/dL Critically high 6.4-8.2 [facility] Comment on above: Performed By: #### L IPA, CMP, HSTROPN #### [facility] [address] [place] [address] Dr. Oh Trotter Sodium [Moles/Vol] 135 mmol/L Critically low 136-145 [facility] Comment on above: Performed By: #### L IPA, CMP, HSTROPN #### [facility] [address] [place] [address] Dr. Oh Trotter Urea nitrogen [Mass/Vol] 12.0 mg/dL Normal 7.0-18.0 [facility] Comment on above: Performed By: #### L IPA, CMP, HSTROPN #### [facility] [address] [place] [address] Dr. Oh Trotter Urea nitrogen/Creatinine [Mass ratio] 10.3 mg/mg [facility] Comment on above: Performed By: #### L IPA, CMP, HSTROPN #### [facility] [address] [place] [address] Dr. Oh Trotter XR CHEST 1 Von [...] GALDINO ARROYO Date: 2021-10-16 13:09 Normal [facility] BNPon 09-15-2021 Natriuretic peptide B (Bld) [Mass/Vol] 9.0 pg/mL Normal <=450.0 [facility] Comment on above: Performed By: #### H STROPN, TSH, BNP, CMP #### [facility] [address] [place] [address] Dr. Oh Trotter CBC AUTO DIFFon 09-15-2021 BASO # 0.0 103/ul Normal 0.0-0.1 [facility] Comment on above: Performed By: #### L IPA, CMP, HSTROPN #### [facility] [address] [place] [address] Dr. Oh Trotter Basophils/100 WBC (Bld) 0.1 % Critically low 0.2-2.0 [facility] Comment on above: Performed By: #### L IPA, CMP, HSTROPN #### [facility] [address] [place] [address] Dr. Oh Trotter EO # 0.1 103/ul Normal 0.0-0.7 [facility] Comment on above: Performed By: #### L IPA, CMP, HSTROPN #### [facility] [address] [place] [address] Dr. Oh Trotter Eosinophils/100 WBC (Bld) 0.6 % Critically low 0.9-7.0 [facility] Comment on above: Performed By: #### L IPA, CMP, HSTROPN #### [facility] [address] [place] [address] Dr. Oh Trotter Erythrocyte distribution width (RBC) [Ratio] 12.5 % Normal 11.0-15.0 [facility] Comment on above: Performed By: #### L IPA, CMP, HSTROPN #### [facility] [address] [place] [address] Dr. Oh Trotter Hematocrit (Bld) [Volume fraction] 48.3 % Normal 42.0-54.0 [facility] Comment on above: Performed By: #### L IPA, CMP, HSTROPN #### [facility] [address] [place] [address] Dr. Oh Trotter Hemoglobin (Bld) [Mass/Vol] 16.7 g/dL Normal 14.0-18.0 [facility] Comment on above: Performed By: #### L IPA, CMP, HSTROPN #### [facility] [address] [place] [address] Dr. Oh Trotter IG # 0.01 10e3/ul Normal 0.00-0.03 [facility] Comment on above: Performed By: #### L IPA, CMP, HSTROPN #### [facility] [address] [place] [address] Dr. Oh Trotter IG % 0.1 % Normal 0.0-0.5 [facility] Comment on above: Performed By: #### L IPA, CMP, HSTROPN #### [facility] [address] [place] [address] Dr. Oh Trotter LYMPH # 3.5 103/ul Normal 1.2-3.8 [facility] Comment on above: Performed By: #### L IPA, CMP, HSTROPN #### [facility] [address] [place] [address] Dr. Oh Trotter Lymphocytes/100 WBC (Bld) 38.8 % Normal 20.5-60.0 [facility] Comment on above: Performed By: #### L IPA, CMP, HSTROPN #### [facility] [address] [place] [address] [address] Oh Trotter MANUAL DIFF REQ NO Normal [facility] Comment on above: Performed By: #### L IPA, CMP, HSTROPN #### [facility] [address] [place] [address] [address] Oh Trotter MCH (RBC) [Entitic mass] 29.3 pg Normal 25.9-34.0 [facility] Comment on above: Performed By: #### L IPA, CMP, HSTROPN #### [facility] [address] [place] [address] Dr. Oh Trotter MCHC (RBC) [Mass/Vol] 34.6 g/dL Normal 29.9-35.2 [facility] Comment on above: Performed By: #### L IPA, CMP, HSTROPN #### [facility] [address] [place] [address] Dr. Oh Trotter MCV (RBC) [Entitic vol] 84.9 fL Normal 80.0-94.0 [facility] Comment on above: Performed By: #### L IPA, CMP, HSTROPN #### [facility] [address] [place] [address] Dr. Oh Trotter MONO # 0.5 103/ul Normal 0.3-0.8 [facility] Comment on above: Performed By: #### L IPA, CMP, HSTROPN #### [facility] [address] [place] [address] Dr. Oh Trotter Monocytes/100 WBC (Bld) 5.4 % Normal 1.7-12.0 [facility] Comment on above: Performed By: #### L IPA, CMP, HSTROPN #### [facility] [address] [place] [address] Dr. Oh Trotter NEUT # 4.9 103/ul Normal 1.4-6.5 [facility] Comment on above: Performed By: #### L IPA, CMP, HSTROPN #### [facility] [address] [place] [address] Dr. Oh Trotter Neutrophils/100 WBC (Bld) 55.0 % Normal 43.0-75.0 [facility] Comment on above: Performed By: #### L IPA, CMP, HSTROPN #### [facility] [address] [place] [address] Dr. Oh Trotter Platelet mean volume (Bld) [Entitic vol] 9.7 fL Normal 9.5-13.5 [facility] Comment on above: Performed By: #### L IPA, CMP, HSTROPN #### [facility] [address] [place] [address] [address] Oh Trotter PLT 227 103/ul Normal 150-450 [facility] Comment on above: Performed By: #### L IPA, CMP, HSTROPN #### [facility] [address] [place] [address] Dr. Oh Trotter RBC 5.69 106/ul Normal 4.70-6.10 [facility] Comment on above: Performed By: #### L IPA, CMP, HSTROPN #### [facility] [address] [place] [address] Dr. Oh Trotter WBC 8.9 103/ul Normal 4.0-11.0 [facility] Comment on above: Performed By: #### L IPA, CMP, HSTROPN #### [facility] [address] [place] [address] Dr. Oh Trotter D-DIMERon 09-15-2021 D-DIMER 0.19 mg/L FEU Normal <=0.59 [facility] Comment on above: Performed By: #### L IPA, CMP, HSTROPN #### [facility] [address] [place] [address] Dr. Oh Trotter D-DIMER COMMENTS SEE BELOW Normal [facility] Comment on above: [...] By: #### L IPA, CMP, HSTROPN #### [facility] [address] [place] [address] Dr. Oh Trotter PROF 14(COMP METB)on 022 Albumin [Mass/Vol] 3.9 g/dL Normal 3.4-5.0 [facility] Comment on above: Performed By: #### H STROPN, TSH, BNP, CMP #### [facility] [address] [place] [address] Dr. Oh Trotter Albumin/Globulin [Mass ratio] 0.8 {ratio} Normal [facility] Comment on above: Performed By: #### H STROPN, TSH, BNP, CMP #### [facility] [address] [place] [address] Dr. Oh Trotter ALP [Catalytic activity/Vol] 73 U/L Normal 46-116 [facility] Comment on above: Performed By: #### H STROPN, TSH, BNP, CMP #### [facility] [address] [place] [address] Dr. Oh Trotter ALT [Catalytic activity/Vol] 48 U/L Normal 16-63 [facility] Comment on above: Performed By: #### H STROPN, TSH, BNP, CMP #### [facility] [address] [place] [address] Dr. Oh Trotter Anion gap [Moles/Vol] 14.9 mmol/L Normal [facility] Comment on above: Performed By: #### H STROPN, TSH, BNP, CMP #### [facility] [address] [place] [address] Dr. Oh Trotter AST [Catalytic activity/Vol] 22 U/L Normal 15-37 [facility] Comment on above: Performed By: #### H STROPN, TSH, BNP, CMP #### [facility] [address] [place] [address] Dr. Oh Trotter Bilirubin [Mass/Vol] 0.4 mg/dL Normal 0.2-1.0 [facility] Comment on above: Performed By: #### H STROPN, TSH, BNP, CMP #### [facility] [address] [place] [address] [address] Oh Trotter Calcium [Mass/Vol] 9.2 mg/dL Normal 8.5-10.1 [facility] Comment on above: Performed By: #### H STROPN, TSH, BNP, CMP #### [facility] [address] [place] [address] [address] Oh Trotter Chloride [Moles/Vol] 102 mmol/L Normal 98-107 [facility] Comment on above: Performed By: #### H STROPN, TSH, BNP, CMP #### [facility] [address] [place] [address] Dr. Oh Trotter CO2 [Moles/Vol] 23.7 mmol/L Normal 21.0-32.0 [facility] Comment on above: Performed By: #### H STROPN, TSH, BNP, CMP #### [facility] [address] [place] [address] [address] Oh Trotter Creatinine [Mass/Vol] 1.14 mg/dL Normal 0.70-1.30 [facility] Comment on above: Performed By: #### H STROPN, TSH, BNP, CMP #### [facility] [address] [place] [address] Dr. Oh Trotter EGFR-AF KAZAKH >60 Normal >=60 [facility] Comment on above: Performed By: #### H STROPN, TSH, BNP, CMP #### [facility] [address] [place] [address] Dr. Oh Trotter EGFR-NON AF KAZAKH >60 Normal >=60 [facility] Comment on above: Performed By: #### H STROPN, TSH, BNP, CMP #### [facility] [address] [place] [address] Dr. Oh Trotter Globulin (S) [Mass/Vol] 4.7 g/dL Normal [facility] Comment on above: Performed By: #### H STROPN, TSH, BNP, CMP #### [facility] [address] [place] [address] Dr. Oh Trotter Glucose [Mass/Vol] 120 mg/dL Critically high 74-106 [facility] Comment on above: Performed By: #### H STROPN, TSH, BNP, CMP #### [facility] [address] [place] [address] [address] Oh Trotter Potassium [Moles/Vol] 3.6 mmol/L Normal 3.5-5.1 [facility] Comment on above: Performed By: #### H STROPN, TSH, BNP, CMP #### [facility] [address] [address] [address] Oh Trotter Protein [Mass/Vol] 8.6 g/dL Critically high 6.4-8.2 [facility] Comment on above: Performed By: #### H STROPN, TSH, BNP, CMP #### [facility] [address] [place] [address] [address] Oh Trotter Sodium [Moles/Vol] 137 mmol/L Normal 136-145 [facility] Comment on above: Performed By: #### H STROPN, TSH, BNP, CMP #### [facility] [address] [place] [address] [address] Oh Trotter Urea nitrogen [Mass/Vol] 12.0 mg/dL Normal 7.0-18.0 [facility] Comment on above: Performed By: #### H STROPN, TSH, BNP, CMP #### [facility] [address] [address] [address] Oh Trotter Urea nitrogen/Creatinine [Mass ratio] 10.5 mg/mg Normal [facility] Comment on above: Performed By: #### H STROPN, TSH, BNP, CMP #### [facility] [address] [address] [address] Oh Trotter PROTIMEon 09-15-2021 INR Coag (PPP) [Relative time] 0.94 {INR} [facility] Comment on above: Performed By: #### L IPA, CMP, HSTROPN #### [facility] [address] [address] [address] Oh Trotter INR GUIDELINES SEE BELOW Normal [facility] Comment on above: Result Comment: ADITHYA RED INR: 2.0 - 3.0 CONDITIONS NOT LISTED BELOW 2.5 - 3.5 FOR PROSTHETIC HEART VALVE REPLACEMENT 2.5 - 3.5 RECURRENT THROMBOSIS Performed By: #### L IPA, CMP, HSTROPN #### [facility] [address] [place] [address] Dr. Oh Trotter PT Coag (PPP) [Time] 10.2 s Normal 9.0-11.6 [facility] Comment on above: Performed By: #### L IPA, CMP, HSTROPN #### [facility] [address] [place] [address] Dr. Oh Trotter PTTon 09-15-2021 aPTT Coag (Bld) [Time] 26.6 s Normal 22.3-36.2 [facility] Comment on above: Performed By: #### L IPA, CMP, HSTROPN #### [facility] [address] [place] [address] Dr. Oh Trotter TROPONIN, HIGH SENSITIVITYon 09-15-2021 HSTROP 3.4 pg/mL Critically low 4.0-76.1 [facility] Comment on above: Result Comment: CUT- OFF POINTS HAVE BEEN ESTABLISHED BASED ON THE FOURTH UNIVERSAL DEFINITIONS OF MYOCARDIAL INFARCTION. THE UPPER REFERENCE LIMIT (URL) OF TROPONIN, DEFINED THE 99TH PERCENTILE OF cTnI DISTRIBUTION IN A REFERENCE POPULATION, HAS BEEN CONFIRMED THE DECISION THRESHOLD FOR OH DIAGNOSIS. Performed By: #### P TT, PT #### [facility] [address] [place] [address] Dr. Oh Trotter TSHon 09-15-2021 TSH 1.085 uIU/mL Normal 0.358-3.740 [facility] Comment on above: Performed By: #### H STROPN, TSH, BNP, CMP #### [facility] [address] [place] [address] Dr. Oh Trotter TSH RANGE SEE BELOW Normal [facility] Comment on above: Result Comment: <0.3 4 UIU/ml HYPERTHYROID 0.34-5.60 UIU/ml EUTHYROID >5.60 UIU/ml HYPOTHYROID Performed By: #### H STROPN, TSH, BNP, CMP #### [facility] [address] [address] [address] Oh Trotter XR ABD FLAT UP_PA [...] by: OTTO POLANCO Date: 2021-09-15 19:35 Normal [facility] XR CHEST 1 Von 09-07-2021 XR [...] by: ELIZABETH TURNER Date: 2021-09-06 23:38 Normal [facility] Vital Signs Date Time Vital Sign Value Performing Clinician Radha casas 12-21-2023 15:26-0400 Blood Pressure Location Lucy VIVIANE [facility] 12-21-2023 15:26-0400 Diastolic blood pressure 88 mm[Hg] Lucy BEY [facility] 12-21-2023 15:26-0400 Heart rate 80 /min Lucy BEY [facility] 12-21-2023 15:26-0400 Respiratory rate 16 /min Lucy BEY [facility] 12-21-2023 15:26-0400 Systolic blood pressure 120 mm[Hg] [facility] Date Encounter Type Care Provider Facility Start: 02-23-2024 End: 02-23-2024 ambulatory URBANO RODRIGUEZ [facility] Start: 12-21-2023 End: 12-21-2023 ambulatory Lucy BEY Facility: [facility] Start: 12-21-2023 End: 12-21-2023 Patient encounter procedure Lucy BEY [facility] Start: 08-09-2022 End: 08-09-2022 ambulatory LEIGHANN SORIANO Facility:[facility] Start: 07-28-2022 End: 07-29-2022 ambulatory LEIGHANN SORIANO Facility:[facility] Start: 06-24-2022 End: 06-24-[address] LUCY BEY . Facility:[facility] Start: 05-23-2022 End: 05-23-2022 ambulatory LEIGHANN SORIANO Facility:[facility] Start: 05-11-2022 End: 05-11-2022 ambulatory LEIGHANN SORIANO Facility:[facility] Start: 05-02-2022 End: 05-02-2022 ambulatory LEIGHANN SORIANO Facility:[facility] Start: 03-30-2022 End: 03-30-2022 ambulatory MATTHIAS BUTLER . Facility:[facility] Start: 03-06-2022 End: 03-06-2022 ambulatory MATTHIAS BUTLER . Facility:[facility] Start: 11-01-2021 End: 11-02-2021 ambulatory TATA CAMERON Facility:[facility] Start: 10-16-2021 End: 10-16-2021 ambulatory MARZENA CORRALES . Facility:[facility] Start: 09-15-2021 End: 09-15-[address] CARL BANG Facility:[facility] Start: 09-11-2021 End: 09-11-2021 ambulatory LUCY OVALLE Facility:[facility] Start: 09-07-2021 End: 09-07-[address] SUKUMAR NAIR Facility:[facility] Procedures Date Procedure Procedure Detail Performing Clinician Start: 06-24-2022 Colonoscopy Lucy BRAXTON Start: 05-03-2002 Cardiac ablation usi ng fluoroscopy guidance Lucy VIVIANE Cholecystectomy Lucy ANTHONYSebas Immunizations Immunization Date Immunization Notes Care Provider Fa cility NEGATED: Highlighted row has not occurred!06-03-2022 influenza virus vaccine, unspecified formulation Lucy ANTHONYSebas [facility] Payers Date Payer Category Payer Unknown [id number] 2.16.84 [id number] 1987 Unknown [id number] 2.16.84 [id number] 1987 Unknown [id number] 2.16.84 [id number] 1987 Unknown [id number] 2.16.84 [id number] 1987 Unknown [id number] 2.16.84 [id number] 1987 Unknown [id number] 2.16.84 [id number] 1987 Unknown [id number] 2.16.84 [id number] 1987 Unknown [id number] 2.16.84 [id number] 1987 Unknown [id number] 2.16.84 [id number] 1987 Unknown [id number] 2.16.84 [id number] 1987 Unknown [id number] 2.16.84 [id number] 1987 Unknown [id number] 2.16.84 [id number] 1987 Unknown [id number] 2.16.84 [id number] 1987 Unknown [id number] 2.16.8 [id number] 1959 Unknown [id number] Social History Date Type Detail Facility Start: 12-21-2023 Tobacco smoking status Heavy t obacco smoker (finding) [facility] Tobacco smoking status Never [facility] Sex Assigned At Male [facility] Functional Status Date Assessment Result Facility 12-21-2023 Functional Status N/A [facility] Clinical Note 02-24-2024 Note Date & Type Note Facility 02-24-2024 Note Medications to take AM day of procedure with sips water only: DEPAKOTE PROZAC HYDROXYZINE PROTONIX Medication Hold instructions: NSAIDs (Motrin,Aleve, Advil, Ibuprofen, Naproxen and Aspirin): 5-7 days prior to procedure Vitamins/Supplements: 5-7 days prior to procedure IF YOU ARE GOING HOME AFTER YOUR SURGERY OR PROCEDURE, FOR YOUR SAFETY, YOUR SURGERY WILL BE CANCELLED IF BOTH OF THE FOLLOWING ARE NOT AVAILABLE: An adult bus driver school over the age of 18, that can receive information about your care after surgery, and drive you home. A responsible adult to stay with you for 24 hours in case of an emergency. Can be same as above. The highest risk of complications is within the first 24 hours after sedation/anesthesia. Nothing to eat or drink after midnight the night before surgery. This includes gum, candy, mints, and lozenges. No alcohol, marijuana, or tobacco products including vaping for 24 hours. Please brush your teeth; don't swallow the toothpaste or water. If you use dentures, wear them but do not use paste. Please leave any other removable dental hardware at home. Do not put in contact lenses. Do not wear perfume, make-up, nail welsh, or lotions on the day of your surgery or procedure. Follow skin-prep/wipe instructions as below if required. Bring with you: *Insurance card *Photo ID *Medication list *Co-pay for visit/prescriptions If applicable: *Rescue inhalers *Green bracelet from lab *CPAP or BiPAP machine, if staying overnight *Any braces, splints, or equipment ordered preoperatively *Remote controls for implanted devices Leave at home: *Purse/Wallet/Grande- unless needed for co-pay *Cell phone (can leave with family/friend or place in locker if needed) *Jewelry (including piercings and wedding bands) *If not possible, ask the person who is waiting with you to keep them Children under the age of 12 will not be allowed into patient care areas. We will call you between 3pm and 4pm the day before your surgery to give you an arrival time. If you do not receive this call, have any questions, or need to make any changes, please call [phone]. Notify your surgeon if you develop any illness such as a cold, cough, fever, sore throat or vomiting between now and your surgery. Thank you for entrusting us with your care. [facility] Surgical Services Team [facility] Progress note 02-23-2024 Note Date & Type Note Facility 02-23-2024 Note Subjective Patient ID: Chuck Packer is a 38 y.o. male who presents for Consult (Chuck is here today for consult: Rectal pain and Bleeding ). HPI 38 years old morbid obesity white male is complaining of anal pain and blood per rectum for more than a month. He denies of fever or chills. This is his first episode of anal pain and hemorrhage. Review of Systems Constitutional: Negative. HENT: Negative. Eyes: Negative. Respiratory: Positive for cough and shortness of breath. Cardiovascular: Positive for chest pain. Gastrointestinal: Positive for blood in stool, diarrhea and rectal pain. Genitourinary: Negative. Musculoskeletal: Negative. Neurological: Negative. Hematological: Negative. Objective Visit Vitals BP 166/89 (BP Location: Left arm, Patient Position: Sitting) Pulse 91 Temp 36.8 ???C (98.3 ???F) (Oral) Physical Exam Constitutional: Appearance: He is obese. HENT: Head: Atraumatic. Cardiovascular: Rate and Rhythm: Normal rate. Pulmonary: Effort: Pulmonary effort is normal. Abdominal: General: Abdomen is flat. Palpations: Abdomen is soft. Genitourinary: Comments: Without perianal erythema, induration. Without thrombosed external hemorrhoid. Musculoskeletal: Cervical back: Neck supple. Neurological: Mental Status: He is alert. Assessment/Plan Anal pain Possible anal fissure Schedule examination under general anesthesia, possible hemorrhoidectomy, possible debridement of anal fissure. Informed consent was obtained. CT scan pelvic with IV contrast No diagnosis found. No orders of the defined types were placed in this encounter. No results found for this or any previous visit (from the past 36 hour(s)). No follow-ups on file. [facility] Clinical Note 06-24-2022 Note Date & Type [...] good condition. CC: Leighann Soriano CNP [facility] Evaluation + Plan note Note Date & Type Note Facility Evaluation + Plan note No data available for this section [facility] Hospital Discharge instructions Note Date & Type Note Facility Hospital Discharge instructions No data available for this section [facility] Progress note Note Date & Type Note Facility Progress note No data available for this section [facility] Summary Purpose Family History No Family History Records Found No data available for this section No Family History Records FoundNo Family History Records Found Advance Directives No Advanced Directives Records FoundNo Advanced Directives Records FoundNo Advanced Directives Records Found Additional Source Comments (unrecognized sect ion and content) No Status Records FoundNo Status Records FoundNo Status Records Found INFORMATION SOURCE (unrecogn ized section and content) DATE CREATED AUTHOR [facility]2022 [facility] DATE CREATED AUTHOR AUTHOR'S ORGANIZ ATION 12/27/2023 [facility] DATE CREATED AUTHOR AUTHOR'S ORGANIZ ATION 02/25/2024 [facility] Patient Care team informatio n (unrecognized section and content) Personnel Name: LEIGHANN SORIANO CNP Address: Address: [facility] [facility], [address] FOR RECORDS PERTAINING TO PATIENTS WHO ARE [...] BE BASED ON THE PRIMARY CLINICAL RECORDS. [facility] [employer] [facility]. provides no warranty or guarantee of the accuracy or completeness of information in this document.
--- NOTE | 2024-02-27 12:30 | ED_ITS ---
HPI HPI - General Adult General Chief complaint: Wound/Laceration Stated complaint: LOWER EXTREMITY PAIN Time Seen by Provider: 02/27/24 11:44 Source: patient Mode of arrival: walk-in Limitations: no limitations History of Present Illness HPI narrative: The patient presenting to us after he was already planned for anal fissure surgery in 2 days but he is having a lot of pain in his rectal area, he denies any bleeding or any fever and he does not take anything [id number] for pain Related Data Home Medications ?Medication ?Instructions ?Recorded ?Confirmed divalproex 250 mg tablet,extended 250 mg PO DAILY 04/11/23 02/27/24 release 24 hr fluoxetine 10 mg capsule 60 mg PO DAILY 04/11/23 02/27/24 hydroxyzine HCl 25 mg tablet 50 mg PO BID PRN anxiety 04/11/23 02/27/24 olanzapine 10 mg tablet 10 mg PO DAILY 04/11/23 02/27/24 divalproex 500 mg tablet,extended 500 mg PO BEDTIME 02/27/24 02/27/24 release 24 hr Previous Rx's ?Medication ?Instructions ?Recorded lidocaine 5 % topical cream 1 applic topical TID PRN pain #15 02/27/24 ([facility]) grams meloxicam 15 mg tablet 15 mg PO DAILY PRN pain #3 tabs 02/27/24 Allergies Allergy/AdvReac Type Severity Reaction Status Date / Time erythromycin base Allergy Intermediate Rash Verified 04/11/23 13:59 Penicillins Allergy Intermediate Rash Verified 04/11/23 13:59 Opioid HPI Opioid Management Most Recent Opioid Data: Last Pain Scale 10 06/28/23 03:20 06/28/23 Review of Systems ROS Status of ROS 10 or more systems reviewed and unremark able except as noted in history and below [facility] Social History Smoking status: Current every day smoker Exam Narrative Exam Narrative: Nurses notes and vital signs reviewed and patient is not hypoxic. General: Well-appearing and in no apparent distress. Skin: Warm, dry, no pallor noted. No rash. Head: Normocephalic, atraumatic. Neck: Supple, non-tender. Eye: Pupils are equal, round and EOMI. No scleral icterus. Ears, Nose, Mouth, and Throat: TM are clear, no nasal mucosal hypertrophy. Oral mucosa is moist, no posterior oropharynx erythema, uvula is mid-line Cardiovascular: Regular Rate and Rhythm without murmur, gallop or rub. Respiratory: No accessory muscle use or respiratory distress. Lungs are clear to auscultation, no wheezing, rales or rhonchi Chest Wall: no tenderness Back: No midline thoracic or lumbar vertebral tenderness. No CVA tenderness Musculoskeletal: normal ROM, no calf or popliteal tenderness, no lower extremity edema/swelling GI: Abdomen is soft, non-distended. Normal bowel sounds. No masses appreciated. No tenderness to palpation. No rebound, guarding, or rigidity noted. Neurological: A&O x4. No cranial nerve dysfunction observed. No truncal ataxia. Moves all extremities. Sensation intact. Psychiatric: Cooperative and interactive. Normal mood and affect. Rectal exam: The patient have a small internal hemorrhoid but there is no induration but the patient have tenderness Constitutional Vital Signs, click to edit/add: Last Vital Signs Temp 98.1 F 02/27/24 11:40 Pulse 86 02/27/24 11:40 Resp 18 02/27/24 11:40 BP 162/102 H 02/27/24 11:40 Pulse Ox 97 02/27/24 11:40 O2 Del Method Room Air 02/27/24 11:40 Course Vital Signs Vital signs: Vital Signs Temperature 98.1 F 02/27/24 11:40 Pulse Rate 86 02/27/24 11:40 Respiratory Rate 18 02/27/24 11:40 Blood Pressure 162/102 H 02/27/24 11:40 Pulse Oximetry 97 02/27/24 11:40 Oxygen Delivery Method Room Air 02/27/24 11:40 Temperature 98.1 F 02/27/24 11:40 Pulse Rate 86 02/27/24 11:40 Respiratory Rate 18 02/27/24 11:40 Blood Pressure 162/102 H 02/27/24 11:40 Pulse Oximetry 97 02/27/24 11:40 Oxygen Delivery Method Room Air 02/27/24 11:40 Medical Decision Making MDM Narrative Medical decision making narrative: Patient provided with local lidocaine to be discharged with [facility]iCare as well as NSAIDs The patient is to follow up with primary care physician in next 2-3 days or to return to the emergency department should any of the signs or symptoms worsen or new symptoms develop. The patient agrees with the following Diagnosis and Treatment plan and the patient will be discharged home. Discharge Plan Discharge Chief Complaint: Wound/Laceration Clinical Impression: Acute anal fissure Patient Disposition: Home, Self-Care Time of Disposition Decision: 12:30 Condition: Good Prescriptions / Home Meds: New lidocaine [[facility]] 5 % cream 1 applic topical TID PRN (Reason: pain) Qty: 15 0RF meloxicam 15 mg tablet 15 mg PO DAILY PRN (Reason: pain) Qty: 3 0RF No Action divalproex 250 mg tablet extended release 24 hr 250 mg PO DAILY fluoxetine 10 mg capsule 60 mg PO DAILY hydroxyzine HCl 25 mg tablet 50 mg PO BID PRN (Reason: anxiety) olanzapine 10 mg tablet 10 mg PO DAILY divalproex 500 mg tablet extended release 24 hr 500 mg PO BEDTIME Print Language: French Instructions: Anal Fissure (ED) Referrals: MERNA SORIANO [Primary Care Provider] - 1 week Discharge Date/Time: 02/27/24 12:48
[2024-02-27] MEDS: OXYCODONE HCL/ACETAMINOPHEN 5MG/325MG 1 TAB PO (12:41)
[2024-02-27] MEDS: KETOROLAC TROMETHAMINE 60 MG/2 ML VIAL IM (12:41)
[2024-02-27] MEDS: LIDOCAINE 2% JELLY 10 ML UR (12:46)
== END 2024-02-27 12:48 | disposition home or self-care (01) ==
PROVIDERS: Emergency Provider Emergency Medicine; PCP Nurse Practitioner Family
DX: K60.2 Anal fissure, unspecified (principal); F17.200 Nicotine dependence, unspecified, uncomplicated
CPT/HCPCS: 96372; 99284; J1885

== ENCOUNTER 2024-03-05 10:59 | Emergency (ER) | payer OTHER, SELFPAY ==
[2024-03-05 11:04] VITALS: BP 150/90; PULSE 98; TEMP 36.8; O2SAT 96; BMI 36.0
[2024-03-05] MEDS: LIDOCAINE 2% JELLY 10 ML UR (11:31)
[2024-03-05] MEDS: KETOROLAC TROMETHAMINE 60 MG/2 ML VIAL IM (11:31)
[2024-03-05] MEDS: OXYCODONE HCL/ACETAMINOPHEN 5MG/325MG 1 TAB PO (11:31)
--- OUTSIDE RECORDS SUMMARY | 2024-03-05 11:40 | XMS_ITS | CCD ---
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 Role Phone ANTONI .MARZENA Attending Unavailable ANTONI ., MARZENA Consulting [...] Primary Care Unavailable TATA CAMERON Attending Unavailable RAKESH, TATA Admitting Unavailable CARRIE ., MATTHIAS PAREDES Consulting UnavailLEIGHANN Evans Primary Care Unavailable PAY ., DR LEY Admitting Unavailable PAY ., DR LEY Attending Unavailable LUCY JEWELL Consulting Unavailable LEIGHANN SORIANO Primary Care Physician Lucy BEY Attending Unavailable LEIGHANN SORIANO Referring Unavailable URBANO RODRIGUEZ Attending Unavailable URBANO RODRIGUEZ Admitting Unavailable URBANO RODRIGUEZ Attending Unavailable CAPO TAFOYA Referring Unavailable Allergies Allergy Classification Reported Allergen(s) Allergy Type Date of Onset Reaction(s) Facility (2 sources) Erythromycin; Translations: [ERYTHROMYCIN BASE] Drug Allergy 4 [facility] Repository (4 sources) Penicillins; Translations: [penicillins] Drug allergy (disorder) 4 [facility] (disorder) [facility] Repository (3 sources) Erythromycin; Translations: [erythromycin] Drug Allergy 4 [facility] Medications Current Medications Medication Drug Class(es) Dates [...] 03-10-2022 06-03-2022 Episodic Anal and rectal conditions (5 sources) Other specified diseases of anus and rectum; Translations: [Anal fissure, unspecified] Onset: 06-25-2022 Episodic Anxiety disorders (8 sources) Generalized anxiety disorder; Translations: [Anxiety disorder, unspecified] Onset: 03-10-2022 Chronic Conduction disorders (2 sources) Pre-excitation syndrome; Translations: [Smecs-Yqxxecamp-Qwz te pattern] Onset: 08-11-2022 05-29-2022 Chronic Esophageal [...] Onset: 06-25-2022 Other aftercare (1 source) 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 The patient was examined and there are no changes to the H&P. Normal [facility] OPNOTEon 02-29-2024 OPNOTE EXAM UNDER ANESTHESIA,, HEMORRHOIDECTOMY, DEBRIDMENT OF ANAL FISSURE Operative Note Date: 02/29/2024 Location: [facility] OR Name: Chuck Packer, : 1985, Diagnosis Pre-op Diagnosis * Anal pain [K62.89] Post-op Diagnosis * Anal pain [K62.89] Anal fissure External and internal hemorrhoid Procedures HEMORRHOIDECTOMY, DEBRIDMENT OF ANAL FISSURE EXAM UNDER ANESTHESIA, [address] - [place] ANRCT XM SURG REQ ANES GENERAL SPI/EDRL DX Anal sphincter dilation Surgeons Primary: Urbano Rodriguez MD Resident - Assisting: Tatiana Cline MD Procedure Summary Anesthesia: General ASA: III Estimated Blood Loss: Minimal Total IV Fluids: 500 mL Drains: * None in log * Specimens ID Source Type Tests Collected By Collected At [facility]? Priority Lab ID A Anus Tissue HISTOLOGY - TISSUE EXAM Urbano Rodriguez MD 10/29/24 0827 No Description: ANAL FISSURE Comment: PLACED IN FORMALIN B Anus Tissue HISTOLOGY - TISSUE EXAM Urbano Rodriguez MD 02/29/24829 No Description: INTERNAL AND EXTERNAL HEMORRHOID Comment: PLACED IN FORMALIN Staff: Granite Polisher: Shannan Guy RN Scrub Person: Dianelys Watson, FIRST OFFICER AND FLIGHT INSTRUCTOR [place] Scrub: Minna Mcclendon RN Indications: Chuck Packer is an 38 y.o. male who is having surgery for Anal pain [K62.89]. Examination under general anesthesia, possible hemorrhoidectomy, possible debridement of anal fissure, possible anal sphincter dilation was offered to the patient, informed consent was obtained. Procedure Details: The patient was seen in the preoperative area. The risks, benefits, complications, treatment options, non-operative alternatives, expected recovery and outcomes were discussed with the patient. The possibilities of reaction to medication, pulmonary aspiration, injury to surrounding structures, bleeding, recurrent infection, the need for additional procedures, failure to diagnose a condition, and creating a complication requiring transfusion or operation were discussed with the patient. The patient concurred with the proposed plan, giving informed consent. The site of surgery was properly noted/marked if necessary per policy. The patient has been actively warmed in preoperative area. Preoperative antibiotics have been ordered and given within 1 hours of incision. Venous thrombosis prophylaxis have been ordered including bilateral sequential compression devices The patient was brought to the operating room, laid on the operative table in supine position. General endotracheal anesthesia was initiated. Patient was converted to prone jackknife position. Perianal skin was prepped and draped in usual sterile fashion. Timeout was completed. Digital rectal exam was performed, without the palpable mass. Anal retractor was inserted, circumferential inspection was performed. Posterior midline anal fissure 1 cm in diameter, the bed is bleeding. Multiple moderate size internal and external hemorrhoid was encountered. The bed of anal fissure was debrided with electrocautery. Hemorrhoidectomy was performed, 4 column Hemorrhoid was removed with LigaSure. Hemostasis was obtained by electrocautery. Gelfoam was placed into the anal canal for enhanced hemostasis. 10 cc Exparel subcutaneous infiltration was performed. The operation was completed without complication, I was present for entire surgery, minimal blood loss. Findings: Posterior midline anal fissure 1 cm in diameter. A piece of anal fissure tissue was sent to pathology. Internal and external hemorrhoid. Complications: None; patient tolerated the procedure well. Disposition: PACU - hemodynamically stable. Condition: stable Urbano Rodriguez Normal [facility] POCT GLUCOSE METER UNSOLICIT ED RESULTSon 02-29-2024 Glucose [Mass/Vol] 134 mg/dL High 70-105 [facility] Comment on above: Order Comment: Waive d Testing in the ED is performed under the ED CLIA certificate #[id number]. Result Comment: [email or web address] Performed By: #### L [id number] #### [facility] [address] [place] [address] Consulton 02-23-2024 Consult [id number] Chuck Packer 1985 M Date Provider Department Center 02/23/2024 SACHIN SONGJAMMYA [facility] SURG Second Fl No family history on file Level of Service:61137 [place] OFFICE/OUTPATIENT NEW LOW [facility] 30 MINUTES Reason for Visit and Comments: Consult [484] - Chuck is here today for consult: Rectal pain and Bleeding Normal [facility] HPon 02-23-2024 HP Subjective Patient ID: Chuck Packer is a [...] past 36 hour(s)). No follow-ups on file. Normal [facility] General Surgery Office/Clini c Noteon 12-26-2023 General [...] Rectal bleeding Rectal or anal pain Smoker Skjbc-Gluknqmlb-Kzwfo syndrome Historical Atrial fibrillation Epididymitis Nocturia Scrotal [...] inactivated - Not Given Patient Refuses Normal [facility] Comment on above: Result Comment: Elec tronically Signed By: VIVIANE SIMS, Lucy Rich\.br\Date and Time Signed: 12/26/23 19:55 EDT Ambulatory Visit Summaryon 0 12-21-2023 Ambulatory Visit Summary Ambulatory Visit Summary CHUCK PACKER :1985 Visit Date:12/21/2023 Ambulatory Visit Instructions Your Care Team Attending Physician - Lucy BEY MD Primary Care Physician - LEIGHANN SORIANO CNP [...] with mild panic attacks Rectal bleeding Smoker Ibxsx-Pzrabgyln-Icvks syndrome Historical - Any problem that you are no longer receiving treatment for. Atrial fibrillation Epididymitis Nocturia Scrotal pain Patient Survey You may receive a survey via text or e-mail asking about your office visit. Please share your experience with us by completing your survey. We appreciate your feedback and thank you for choosing us for your care. Normal [facility] CBC AUTO DIFFon 08-09-2022 BASO # 0.0 103/ul Normal 0.0-0.1 [facility] Comment on above: Performed By: #### P TT, PT #### [facility] [address] [address] [address] Oh Trotter Basophils/100 WBC (Bld) 0.2 % Normal 0.2-2.0 [facility] Comment on above: Performed By: #### P TT, PT #### [facility] [address] [place] [address] Dr. Oh Trotter EO # 0.0 103/ul Normal 0.0-0.7 [facility] Comment on above: Performed By: #### P TT, PT #### [facility] [address] [place] [address] Dr. Oh Trotter Eosinophils/100 WBC (Bld) 0.6 % Critically low 0.9-7.0 [facility] Comment on above: Performed By: #### P TT, PT #### [facility] [address] [place] [address] Dr. Oh Trotter Erythrocyte distribution width (RBC) [Ratio] 12.2 % Normal 11.0-15.0 [facility] Comment on above: Performed By: #### P TT, PT #### [facility] [address] [place] [address] Dr. Oh Trotter Hematocrit (Bld) [Volume fraction] 44.1 % Normal 42.0-54.0 [facility] Comment on above: Performed By: #### P TT, PT #### [facility] [address] [place] [address] Dr. Oh Trotter Hemoglobin (Bld) [Mass/Vol] 15.8 g/dL Normal 14.0-18.0 [facility] Comment on above: Performed By: #### P TT, PT #### [facility] [address] [place] [address] Dr. Oh Trotter IG # 0.02 10e3/ul Normal 0.00-0.03 [facility] Comment on above: Performed By: #### P TT, PT #### [facility] [address] [place] [address] Dr. Oh Trotter IG % 0.3 % Normal 0.0-0.5 [facility] Comment on above: Performed By: #### P TT, PT #### [facility] [address] [place] [address] Dr. Oh Trotter LYMPH # 1.9 103/ul Normal 1.2-3.8 [facility] Comment on above: Performed By: #### P TT, PT #### [facility] [address] [place] [address] Dr. Oh Trotter Lymphocytes/100 WBC (Bld) 29.7 % Normal 20.5-60.0 [facility] Comment on above: Performed By: #### P TT, PT #### [facility] [address] [place] [address] Dr. Oh Trotter MANUAL DIFF REQ NO Normal [facility] Comment on above: Performed By: #### P TT, PT #### [facility] [address] [place] [address] Dr. Oh Trotter MCH (RBC) [Entitic mass] 29.8 pg Normal 25.9-34.0 [facility] Comment on above: Performed By: #### P TT, PT #### [facility] [address] [place] [address] Dr. Oh Trotter MCHC (RBC) [Mass/Vol] 35.8 g/dL Critically high 29.9-35.2 [facility] Comment on above: Performed By: #### P TT, PT #### [facility] [address] [place] [address] Dr. Oh Trotter MCV (RBC) [Entitic vol] 83.2 fL Normal 80.0-94.0 [facility] Comment on above: Performed By: #### P TT, PT #### [facility] [address] [place] [address] Dr. Oh Trotter MONO # 0.6 103/ul Normal 0.3-0.8 [facility] Comment on above: Performed By: #### P TT, PT #### [facility] [address] [place] [address] Dr. Oh Trotter Monocytes/100 WBC (Bld) 8.6 % Normal 1.7-12.0 [facility] Comment on above: Performed By: #### P TT, PT #### [facility] [address] [place] [address] Dr. Oh Trotter NEUT # 3.9 103/ul Normal 1.4-6.5 [facility] Comment on above: Performed By: #### P TT, PT #### [facility] [address] [place] [address] Dr. Oh Trotter Neutrophils/100 WBC (Bld) 60.6 % Normal 43.0-75.0 [facility] Comment on above: Performed By: #### P TT, PT #### [facility] [address] [place] [address] Dr. Oh Trotter Platelet mean volume (Bld) [Entitic vol] 9.5 fL Normal 9.5-13.5 [facility] Comment on above: Performed By: #### P TT, PT #### [facility] [address] [place] [address] Dr. Oh Trotter PLT 187 103/ul Normal 150-450 [facility] Comment on above: Performed By: #### P TT, PT #### [facility] [address] [place] [address] Dr. Oh Trotter RBC 5.30 106/ul Normal 4.70-6.10 [facility] Comment on above: Performed By: #### P TT, PT #### [facility] [address] [place] [address] Dr. Oh Trotter WBC 6.4 103/ul Normal 4.0-11.0 [facility] Comment on above: Performed By: #### P TT, PT #### [facility] [address] [place] [address] Dr. Oh Trotter PROF 14(COMP METB)on 023 Albumin [Mass/Vol] 3.5 g/dL Normal 3.4-5.0 [facility] Comment on above: Performed By: #### L IPA, CMP, HSTROPN #### [facility] [address] [place] [address] Dr. Oh Trotter Albumin/Globulin [Mass ratio] 0.7 {ratio} Normal [facility] Comment on above: Performed By: #### L IPA, CMP, HSTROPN #### [facility] [address] [place], [place] [id number] Dr. Oh Trotter ALP [Catalytic activity/Vol] 85 U/L Normal 46-116 [facility] Comment on above: Performed By: #### L IPA, CMP, HSTROPN #### [facility] [address] [place] [address] Dr. Oh Trotter ALT [Catalytic activity/Vol] 34 U/L Normal 16-63 [facility] Comment on above: Performed By: #### L IPA, CMP, HSTROPN #### [facility] [address] [place] [address] Dr. Oh Trotter Anion gap [Moles/Vol] 13.3 mmol/L Normal [facility] Comment on above: Performed By: #### L IPA, CMP, HSTROPN #### [facility] [address] [place] [address] Dr. Oh Trotter AST [Catalytic activity/Vol] 18 U/L Normal 15-37 [facility] Comment on above: Performed By: #### L IPA, CMP, HSTROPN #### [facility] [address] [place] [address] Dr. Oh Trotter Bilirubin [Mass/Vol] 0.4 mg/dL Normal 0.2-1.0 [facility] Comment on above: Performed By: #### L IPA, CMP, HSTROPN #### [facility] [address] [place] [address] Dr. Oh Trotter Calcium [Mass/Vol] 8.9 mg/dL Normal 8.5-10.1 [facility] Comment on above: Performed By: #### L IPA, CMP, HSTROPN #### [facility] [address] [place] [address] Dr. Oh Trotter Chloride [Moles/Vol] 105 mmol/L Normal 98-107 [facility] Comment on above: Performed By: #### L IPA, CMP, HSTROPN #### [facility] [address] [place] [address] Dr. Oh Trotter CO2 [Moles/Vol] 24.7 mmol/L Normal 21.0-32.0 [facility] Comment on above: Performed By: #### L IPA, CMP, HSTROPN #### [facility] [address] [address] [address] Oh Trotter Creatinine [Mass/Vol] 0.88 mg/dL Normal 0.70-1.30 [facility] Comment on above: Performed By: #### L IPA, CMP, HSTROPN #### [facility] [address] [place] [address] Dr. Oh Trotter EGFR-AF IRANIAN >60 Normal >=60 [facility] Comment on above: Performed By: #### L IPA, CMP, HSTROPN #### [facility] [address] [place] [address] Dr. Oh Trotter EGFR-NON AF IRANIAN >60 Normal >=60 [facility] Comment on above: Performed By: #### L IPA, CMP, HSTROPN #### [facility] [address] [place] [address] Dr. Oh Trotter Globulin (S) [Mass/Vol] 4.8 g/dL Normal [facility] Comment on above: Performed By: #### L IPA, CMP, HSTROPN #### [facility] [address] [place] [address] Dr. Oh Trotter Glucose [Mass/Vol] 113 mg/dL Critically high 74-106 [facility] Comment on above: Performed By: #### L IPA, CMP, HSTROPN #### [facility] [address] [place] [address] Dr. Oh Trotter Potassium [Moles/Vol] 4.0 mmol/L Normal 3.5-5.1 [facility] Comment on above: Performed By: #### L IPA, CMP, HSTROPN #### [facility] [address] [place] [address] Dr. Oh Trotter Protein [Mass/Vol] 8.3 g/dL Critically high 6.4-8.2 [facility] Comment on above: Performed By: #### L IPA, CMP, HSTROPN #### [facility] [address] [address] [address] Oh Trotter Sodium [Moles/Vol] 139 mmol/L Normal 136-145 [facility] Comment on above: Performed By: #### L IPA, CMP, HSTROPN #### [facility] [address] [address] [address] Oh Trotter Urea nitrogen [Mass/Vol] 15.0 mg/dL Normal 7.0-18.0 [facility] Comment on above: Performed By: #### L IPA, CMP, HSTROPN #### [facility] [address] [address] [address] Oh Trotter Urea nitrogen/Creatinine [Mass ratio] 17.0 mg/mg Normal [facility] Comment on above: Performed By: #### L IPA, CMP, HSTROPN #### [facility] [address] [place] [address] Dr. Oh Trotter XR ABD FLAT UP_PA [...] VERA SETHI Date: 2022-07-28 22:14 Normal [facility] CBC AUTO DIFFon 07-28-2022 BASO # 0.0 103/ul Normal 0.0-0.1 [facility] Comment on above: Performed By: #### L IPA, CMP, HSTROPN #### [facility] [address] [place] [address] Dr. Oh Trotter Basophils/100 WBC (Bld) 0.2 % Normal 0.2-2.0 [facility] Comment on above: Performed By: #### L IPA, CMP, HSTROPN #### [facility] [address] [place] [address] Dr. Oh Trotter EO # 0.1 103/ul Normal 0.0-0.7 [facility] Comment on above: Performed By: #### L IPA, CMP, HSTROPN #### [facility] [address] [place] [address] Dr. Oh Trotter Eosinophils/100 WBC (Bld) 0.9 % Normal 0.9-7.0 [facility] Comment on above: Performed By: #### L IPA, CMP, HSTROPN #### [facility] [address] [place] [address] Dr. Oh Trotter Erythrocyte distribution width (RBC) [Ratio] 12.4 % Normal 11.0-15.0 [facility] Comment on above: Performed By: #### L IPA, CMP, HSTROPN #### [facility] [address] [place] [address] Dr. Oh Trotter Hematocrit (Bld) [Volume fraction] 44.8 % Normal 42.0-54.0 [facility] Comment on above: Performed By: #### L IPA, CMP, HSTROPN #### [facility] [address] [place] [address] Dr. Oh Trotter Hemoglobin (Bld) [Mass/Vol] 15.7 g/dL Normal 14.0-18.0 [facility] Comment on above: Performed By: #### L IPA, CMP, HSTROPN #### [facility] [address] [place] [address] Dr. Oh Trotter IG # 0.02 10e3/ul Normal 0.00-0.03 [facility] Comment on above: Performed By: #### L IPA, CMP, HSTROPN #### [facility] [address] [place] [address] Dr. Oh Trotter IG % 0.2 % Normal 0.0-0.5 [facility] Comment on above: Performed By: #### L IPA, CMP, HSTROPN #### [facility] [address] [place] [address] Dr. Oh Trotter LYMPH # 3.2 103/ul Normal 1.2-3.8 [facility] Comment on above: Performed By: #### L IPA, CMP, HSTROPN #### [facility] [address] [place] [address] Dr. Oh Trotter Lymphocytes/100 WBC (Bld) 39.2 % Normal 20.5-60.0 [facility] Comment on above: Performed By: #### L IPA, CMP, HSTROPN #### [facility] [address] [place] [address] Dr. Oh Trotter MANUAL DIFF REQ NO Normal [facility] Comment on above: Performed By: #### L IPA, CMP, HSTROPN #### [facility] [address] [place] [address] Dr. Oh Trotter MCH (RBC) [Entitic mass] 29.3 pg Normal 25.9-34.0 [facility] Comment on above: Performed By: #### L IPA, CMP, HSTROPN #### [facility] [address] [place] [address] Dr. Oh Trotter MCHC (RBC) [Mass/Vol] 35.0 g/dL Normal 29.9-35.2 [facility] Comment on above: Performed By: #### L IPA, CMP, HSTROPN #### [facility] [address] [place] [address] Dr. Oh Trotter MCV (RBC) [Entitic vol] 83.7 fL Normal 80.0-94.0 [facility] Comment on above: Performed By: #### L IPA, CMP, HSTROPN #### [facility] [address] [place] [address] Dr. Oh Trotter MONO # 0.6 103/ul Normal 0.3-0.8 [facility] Comment on above: Performed By: #### L IPA, CMP, HSTROPN #### [facility] [address] [place] [address] Dr. Oh Trotter Monocytes/100 WBC (Bld) 7.5 % Normal 1.7-12.0 [facility] Comment on above: Performed By: #### L IPA, CMP, HSTROPN #### [facility] [address] [place] [address] Dr. Oh Trotter NEUT # 4.3 103/ul Normal 1.4-6.5 [facility] Comment on above: Performed By: #### L IPA, CMP, HSTROPN #### [facility] [address] [place] [address] Dr. Oh Trotter Neutrophils/100 WBC (Bld) 52.0 % Normal 43.0-75.0 [facility] Comment on above: Performed By: #### L IPA, CMP, HSTROPN #### [facility] [address] [place] [address] Dr. Oh Trotter Platelet mean volume (Bld) [Entitic vol] 9.8 fL Normal 9.5-13.5 [facility] Comment on above: Performed By: #### L IPA, CMP, HSTROPN #### [facility] [address] [place] [address] Dr. Oh Trotter PLT 210 103/ul Normal 150-450 [facility] Comment on above: Performed By: #### L IPA, CMP, HSTROPN #### [facility] [address] [place] [address] Dr. Oh Trotter RBC 5.35 106/ul Normal 4.70-6.10 [facility] Comment on above: Performed By: #### L IPA, CMP, HSTROPN #### [facility] [address] [place] [address] Dr. Oh Trotter WBC 8.2 103/ul Normal 4.0-11.0 [facility] Comment on above: Performed By: #### L IPA, CMP, HSTROPN #### [facility] [address] [place] [address] Dr. Oh Trotter OCC BLD IMMUNOASSAYon 2022 OCCULT BLOOD Positive Abnormal NEGATIVE [facility] Comment on above: Performed By: #### P TT, PT #### [facility] [address] [place] [address] Dr. Oh Trotter PROF 14(COMP METB)on 023 Albumin [Mass/Vol] 3.9 g/dL Normal 3.4-5.0 [facility] Comment on above: Performed By: #### L IPA, CMP, HSTROPN #### [facility] [address] [place] [address] Dr. Oh Trotter Albumin/Globulin [Mass ratio] 0.9 {ratio} Normal [facility] Comment on above: Performed By: #### L IPA, CMP, HSTROPN #### [facility] [address] [place] [address] Dr. Oh Trotter ALP [Catalytic activity/Vol] 98 U/L Normal 46-116 [facility] Comment on above: Performed By: #### L IPA, CMP, HSTROPN #### [facility] [address] [place] [address] Dr. Oh Trotter ALT [Catalytic activity/Vol] 47 U/L Normal 16-63 [facility] Comment on above: Performed By: #### L IPA, CMP, HSTROPN #### [facility] [address] [place] [address] Dr. Oh Trotter Anion gap [Moles/Vol] 13.8 mmol/L Normal [facility] Comment on above: Performed By: #### L IPA, CMP, HSTROPN #### [facility] [address] [place] [address] Dr. Oh Trotter AST [Catalytic activity/Vol] 18 U/L Normal 15-37 [facility] Comment on above: Performed By: #### L IPA, CMP, HSTROPN #### [facility] [address] [place] [address] Dr. Oh Trotter Bilirubin [Mass/Vol] 0.3 mg/dL Normal 0.2-1.0 [facility] Comment on above: Performed By: #### L IPA, CMP, HSTROPN #### [facility] [address] [address] [address] Oh Trotter Calcium [Mass/Vol] 8.8 mg/dL Normal 8.5-10.1 [facility] Comment on above: Performed By: #### L IPA, CMP, HSTROPN #### [facility] [address] [place] [address] Dr. Oh Trotter Chloride [Moles/Vol] 105 mmol/L Normal 98-107 [facility] Comment on above: Performed By: #### L IPA, CMP, HSTROPN #### [facility] [address] [place] [address] Dr. Oh Trotter CO2 [Moles/Vol] 25.2 mmol/L Normal 21.0-32.0 [facility] Comment on above: Performed By: #### L IPA, CMP, HSTROPN #### [facility] [address] [place] [address] Dr. Oh Trotter Creatinine [Mass/Vol] 1.02 mg/dL Normal 0.70-1.30 [facility] Comment on above: Performed By: #### L IPA, CMP, HSTROPN #### [facility] [address] [place] [address] Dr. Oh Trotter EGFR-AF IRANIAN >60 Normal >=60 [facility] Comment on above: Performed By: #### L IPA, CMP, HSTROPN #### [facility] [address] [place] [address] Dr. Oh Trotter EGFR-NON AF IRANIAN >60 Normal >=60 [facility] Comment on above: Performed By: #### L IPA, CMP, HSTROPN #### [facility] [address] [place] [address] Dr. Oh Trotter Globulin (S) [Mass/Vol] 4.2 g/dL Normal [facility] Comment on above: Performed By: #### L IPA, CMP, HSTROPN #### [facility] [address] [address] [address] Oh Trotter Glucose [Mass/Vol] 104 mg/dL Normal 74-106 [facility] Comment on above: Performed By: #### L IPA, CMP, HSTROPN #### [facility] [address] [address] [address] Oh Trotter Potassium [Moles/Vol] 4.0 mmol/L Normal 3.5-5.1 [facility] Comment on above: Performed By: #### L IPA, CMP, HSTROPN #### [facility] [address] [place] [address] Dr. Oh Trotter Protein [Mass/Vol] 8.1 g/dL Normal 6.4-8.2 [facility] Comment on above: Performed By: #### L IPA, CMP, HSTROPN #### [facility] [address] [place] [address] Dr. Oh Trotter Sodium [Moles/Vol] 140 mmol/L Normal 136-145 [facility] Comment on above: Performed By: #### L IPA, CMP, HSTROPN #### [facility] [address] [place] [address] Dr. Oh Trotter Urea nitrogen [Mass/Vol] 16.0 mg/dL Normal 7.0-18.0 [facility] Comment on above: Performed By: #### L IPA, CMP, HSTROPN #### [facility] [address] [place] [address] Dr. Oh Trotter Urea nitrogen/Creatinine [Mass ratio] 15.7 mg/mg Normal [facility] Comment on above: Performed By: #### L IPA, CMP, HSTROPN #### [facility] [address] [place] [address] Dr. Oh Trotter PROTIMEon 07-28-2022 INR Coag (PPP) [Relative time] {INR} Normal [facility] Comment on above: Performed By: #### P TT, PT #### [facility] [address] [place] [address] Dr. Oh Trotter INR GUIDELINES SEE BELOW Normal [facility] Comment on above: Result Comment: ADITHYA RED INR: 2.0 - 3.0 CONDITIONS NOT LISTED BELOW 2.5 - 3.5 FOR PROSTHETIC HEART VALVE REPLACEMENT 2.5 - 3.5 RECURRENT THROMBOSIS Performed By: #### P TT, PT #### [facility] [address] [place] [address] Dr. Oh Trotter PT Coag (PPP) [Time] 9.8 s Normal 9.0-11.6 [facility] Comment on above: Performed By: #### P TT, PT #### [facility] [address] [place] [address] Dr. Oh Trotter PTTon 07-28-2022 aPTT Coag (Bld) [Time] 26.6 s Normal 22.3-36.2 [facility] Comment on above: Performed By: #### P TT, PT #### [facility] [address] [place] [address] Dr. Oh Trotter [facility]on SARS-CoV-2 (COVID-19) RNA SHAE+probe Ql (Unsp spec) Not detected Normal NOT DETECTED [facility] Comment on above: Result Comment: This test is not yet approved or cleared by the [place] FDA. When there are no FDA-approved or cleared tests available, and other criteria are met, FDA can make tests available under an emergency access mechanism called an Emergency Use Authorization (EUA). The EUA for this test is supported by the [place] of Health and Human Service's (HHS's) declaration [...] Performed By: #### P TT, PT #### [facility] [address] [place] [address] Dr. Oh Trotter INFLUENZA A AND B AGon 05-11 [facility] SEE BELOW Normal [facility] Comment on above: Result Comment: Nega tive for Flu A protein angiten. Infection due to Flu A cannot be ruled out. Flu A angiten in the sample may be below the detection limit of the test. Performed By: #### L IPA, CMP, HSTROPN #### [facility] [address] [place] [address] Dr. Oh [facility] BEL[facility] Normal [facility] Comment on above: Result Comment: Nega tive for Flu B protein antigen. Infection due to Flu B cannot be ruled out. Flu B antigen in the sample may be below the detection limit of the test. Performed By: #### L IPA, CMP, HSTROPN #### [facility] [address] [place] [address] Dr. Oh Trotter INFLUENZA A AG Negative Normal NEGATIVE SEE COMMENT [facility] Comment on above: Performed By: #### L IPA, CMP, HSTROPN #### [facility] [address] [place] [address] Dr. Oh Trotter INFLUENZA B AG Negative Normal NEGATIVE SEE COMMENT [facility] Comment on above: Performed By: #### L IPA, CMP, HSTROPN #### [facility] [address] [place] [address] Dr. Oh Trotter CBC AUTO DIFFon 03-06-2022 BASO # 0.0 103/ul Normal 0.0-0.1 [facility] Comment on above: Performed By: #### P TT, PT #### [facility] [address] [place] [address] Dr. Oh Trotter Basophils/100 WBC (Bld) 0.2 % Normal 0.2-2.0 [facility] Comment on above: Performed By: #### P TT, PT #### [facility] [address] [place] [address] Dr. Oh Trotter EO # 0.0 103/ul Normal 0.0-0.7 [facility] Comment on above: Performed By: #### P TT, PT #### [facility] [address] [place] [address] Dr. Oh Trotter Eosinophils/100 WBC (Bld) 0.4 % Critically low 0.9-7.0 [facility] Comment on above: Performed By: #### P TT, PT #### [facility] [address] [place] [address] Dr. Oh Trotter Erythrocyte distribution width (RBC) [Ratio] 12.2 % Normal 11.0-15.0 [facility] Comment on above: Performed By: #### P TT, PT #### [facility] [address] [place] [address] Dr. Oh Trotter Hematocrit (Bld) [Volume fraction] 45.7 % Normal 42.0-54.0 [facility] Comment on above: Performed By: #### P TT, PT #### [facility] [address] [place] [address] Dr. Oh Trotter Hemoglobin (Bld) [Mass/Vol] 16.0 g/dL Normal 14.0-18.0 [facility] Comment on above: Performed By: #### P TT, PT #### [facility] [address] [place] [address] Dr. Oh Trotter IG # 0.04 10e3/ul Critically high 0.00-0.03 [facility] Comment on above: Performed By: #### P TT, PT #### [facility] [address] [place] [address] Dr. Oh Trotter IG % 0.4 % Normal 0.0-0.5 [facility] Comment on above: Performed By: #### P TT, PT #### [facility] [address] [place] [address] Dr. Oh Trotter LYMPH # 2.8 103/ul Normal 1.2-3.8 [facility] Comment on above: Performed By: #### P TT, PT #### [facility] [address] [place] [address] Dr. Oh Trotter Lymphocytes/100 WBC (Bld) 29.5 % Normal 20.5-60.0 [facility] Comment on above: Performed By: #### P TT, PT #### [facility] [address] [place] [address] Dr. Oh Trotter MANUAL DIFF REQ NO Normal The [facility] Comment on above: Performed By: #### P TT, PT #### [facility] [address] [place] [address] Dr. Oh Trotter MCH (RBC) [Entitic mass] 29.7 pg Normal 25.9-34.0 [facility] Comment on above: Performed By: #### P TT, PT #### [facility] [address] [place] [address] Dr. Oh Trotter MCHC (RBC) [Mass/Vol] 35.0 g/dL Normal 29.9-35.2 [facility] Comment on above: Performed By: #### P TT, PT #### [facility] [address] [place] [address] Dr. Oh Trotter MCV (RBC) [Entitic vol] 84.8 fL Normal 80.0-94.0 [facility] Comment on above: Performed By: #### P TT, PT #### [facility] [address] [place] [address] Dr. Oh Trotter MONO # 0.5 103/ul Normal 0.3-0.8 [facility] Comment on above: Performed By: #### P TT, PT #### [facility] [address] [place] [address] Dr. Oh Trotter Monocytes/100 WBC (Bld) 5.2 % Normal 1.7-12.0 [facility] Comment on above: Performed By: #### P TT, PT #### [facility] [address] [place] [address] Dr. Oh Trotter NEUT # 6.2 103/ul Normal 1.4-6.5 [facility] Comment on above: Performed By: #### P TT, PT #### [facility] [address] [place] [address] Dr. Oh Trotter Neutrophils/100 WBC (Bld) 64.3 % Normal 43.0-75.0 [facility] Comment on above: Performed By: #### P TT, PT #### [facility] [address] [address] [address] Oh Trotter Platelet mean volume (Bld) [Entitic vol] 9.9 fL Normal 9.5-13.5 [facility] Comment on above: Performed By: #### P TT, PT #### [facility] [address] [place] [address] Dr. Oh Trotter PLT 196 103/ul Normal 150-450 [facility] Comment on above: Performed By: #### P TT, PT #### [facility] [address] [place] [address] Dr. Oh Trotter RBC 5.39 106/ul Normal 4.70-6.10 [facility] Comment on above: Performed By: #### P TT, PT #### [facility] [address] [address] [address] Oh Trotter WBC 9.6 103/ul Normal 4.0-11.0 [facility] Comment on above: Performed By: #### P TT, PT #### [facility] [address] [place] [address] Dr. Oh Trotter D-DIMERon 03-06-2022 D-DIMER <0.19 Normal <=0.59 [facility] Comment on above: Performed By: #### P TT, PT #### [facility] [address] [place] [address] Dr. Oh Trotter D-DIMER COMMENTS SEE BELOW Normal [facility] Comment on above: Result Comment: Incr [...] Performed By: #### P TT, PT #### [facility] [address] [place] [address] Dr. Oh Trotter ER URINE PROFILEon 2 Bilirubin Ql (U) Negative Normal NEGATIVE [facility] Comment on above: Performed By: #### Marcelo GLOVER, UMICRO #### [facility] [address] [place] [address] Dr. Oh Trotter Clarity (U) CLEAR Normal CLEAR [facility] Comment on above: Performed By: #### E ADALBERTO, UMICRO #### [facility] [address] [place] [address] Dr. Oh Trotter Color (U) LT. YELLOW Normal YELLOW [facility] Comment on above: Performed By: #### E ADALBERTO UMICRO #### [facility] [address] [place] [address] Dr. Oh OLIVA A micrscopic examination will be performed if indicated. Normal [facility] Comment on above: Performed By: #### Marcelo GLOVER UMICRO #### [facility] [address] [place] [address] Dr. Oh Trotter Glucose Ql (U) Negative Normal NEGATIVE [facility] Comment on above: Performed By: #### Marcelo GLOVER UMICRO #### [facility] [address] [place] [address] Dr. Oh Trotter Hemoglobin Ql (U) SMALL Abnormal NEGATIVE [facility] Comment on above: Performed By: #### Marcelo GLOVER UMICRO #### [facility] [address] [place] [address] Dr. Oh Trotter Ketones Ql (U) Negative Normal NEGATIVE [facility] Comment on above: Performed By: #### Marcelo GLOVER UMICRO #### [facility] [address] [place] [address] Dr. Oh Trotter LEUKOCYTES Negative Normal NEGATIVE [facility] Comment on above: Performed By: #### Marcelo GLOVER UMICRO #### [facility] [address] [place] [address] Dr. Oh Trotter Nitrite Ql (U) Negative Normal NEGATIVE [facility] Comment on above: Performed By: #### Marcelo GLOVER UMICRO #### [facility] [address] [place] [address] Dr. Oh Trotter pH (U) 6.0 [pH] Normal 5-9 [facility] Comment on above: Performed By: #### Marcelo GLOVER UMICRO #### [facility] [address] [place] [address] Dr. Oh Trotter SPEC GRAVITY 1.025 Normal 1.005-<=1.025 [facility] Comment on above: Performed By: #### Marcelo GLOVER UMICRO #### [facility] [address] [place] [address] Dr. Oh Trotter UA PROTEIN Negative Normal NEGATIVE/ TRACE [facility] Comment on above: Performed By: #### AUBRIE STONERICRO #### [facility] [address] [place] [address] Dr. Oh Trotter UR MICRO IND INDICATED Normal [facility] Comment on above: Performed By: #### Marcelo GLOVER UMICRO #### [facility] [address] [place] [address] Dr. Oh Trotter Urobilinogen Qn (U) 0.2 {Federico'U}/dL Normal 0.2 - 1. 0 [facility] Comment on above: Performed By: #### Marcelo GLOVER UMICRO #### [facility] [address] [place] [address] Dr. Oh Trotter LIPASEon 03-06-2022 Lipase [Catalytic activity/Vol] 125.0 U/L Normal 73.0-393.0 [facility] Comment on above: Performed By: #### L IPA, CMP, HSTROPN #### [facility] [address] [place] [address] Dr. Oh Trotter PROF 14(COMP METB)on 022 Albumin [Mass/Vol] 3.8 g/dL Normal 3.4-5.0 [facility] Comment on above: Performed By: #### L IPA, CMP, HSTROPN #### [facility] [address] [address] [address] Oh Trotter Albumin/Globulin [Mass ratio] 0.8 {ratio} Normal [facility] Comment on above: Performed By: #### L IPA, CMP, HSTROPN #### [facility] [address] [address] [address] Oh Trotter ALP [Catalytic activity/Vol] 77 U/L Normal 46-116 [facility] Comment on above: Performed By: #### L IPA, CMP, HSTROPN #### [facility] [address] [place] [address] Dr. Oh Trotter ALT [Catalytic activity/Vol] 39 U/L Normal 16-63 [facility] Comment on above: Performed By: #### L IPA, CMP, HSTROPN #### [facility] [address] [place] [address] Dr. Oh Trotter Anion gap [Moles/Vol] 9.3 mmol/L Normal [facility] Comment on above: Performed By: #### L IPA, CMP, HSTROPN #### [facility] [address] [place] [address] Dr. Oh Trotter AST [Catalytic activity/Vol] 21 U/L Normal 15-37 [facility] Comment on above: Performed By: #### L IPA, CMP, HSTROPN #### [facility] [address] [address] [address] Oh Trotter Bilirubin [Mass/Vol] 0.4 mg/dL Normal 0.2-1.0 [facility] Comment on above: Performed By: #### L IPA, CMP, HSTROPN #### [facility] [address] [address] [address] Oh Trotter Calcium [Mass/Vol] 9.2 mg/dL Normal 8.5-10.1 [facility] Comment on above: Performed By: #### L IPA, CMP, HSTROPN #### [facility] [address] [place] [address] Dr. Oh Trotter Chloride [Moles/Vol] 102 mmol/L Normal 98-107 [facility] Comment on above: Performed By: #### L IPA, CMP, HSTROPN #### [facility] [address] [address] [address] Oh Trotter CO2 [Moles/Vol] 26.6 mmol/L Normal 21.0-32.0 [facility] Comment on above: Performed By: #### L IPA, CMP, HSTROPN #### [facility] [address] [address] [address] Oh Trotter Creatinine [Mass/Vol] 1.08 mg/dL Normal 0.70-1.30 [facility] Comment on above: Performed By: #### L IPA, CMP, HSTROPN #### [facility] [address] [address] [address] Oh Trotter EGFR-AF IRANIAN >60 Normal >=60 [facility] Comment on above: Performed By: #### L IPA, CMP, HSTROPN #### [facility] [address] [address] [address] Oh Trotter EGFR-NON AF IRANIAN >60 Normal >=60 [facility] Comment on above: Performed By: #### L IPA, CMP, HSTROPN #### [facility] [address] [place] [address] Dr. Oh Trotter Globulin (S) [Mass/Vol] 4.7 g/dL Normal [facility] Comment on above: Performed By: #### L IPA, CMP, HSTROPN #### [facility] [address] [address] [address] Oh Trotter Glucose [Mass/Vol] 103 mg/dL Normal 74-106 [facility] Comment on above: Performed By: #### L IPA, CMP, HSTROPN #### [facility] [address] [address] [address] Oh Trotter Potassium [Moles/Vol] 3.9 mmol/L Normal 3.5-5.1 [facility] Comment on above: Performed By: #### L IPA, CMP, HSTROPN #### [facility] [address] [place] [address] Dr. Oh Trotter Protein [Mass/Vol] 8.5 g/dL Critically high 6.4-8.2 [facility] Comment on above: Performed By: #### L IPA, CMP, HSTROPN #### [facility] [address] [place] [address] Dr. Oh Trotter Sodium [Moles/Vol] 134 mmol/L Critically low 136-145 [facility] Comment on above: Performed By: #### L IPA, CMP, HSTROPN #### [facility] [address] [place] [address] Dr. Oh Trotter Urea nitrogen [Mass/Vol] 20.0 mg/dL Critically high 7.0-18.0 [facility] Comment on above: Performed By: #### L IPA, CMP, HSTROPN #### [facility] [address] [place] [address] Dr. Oh Trotter Urea nitrogen/Creatinine [Mass ratio] 18.5 mg/mg Normal [facility] Comment on above: Performed By: #### L IPA, CMP, HSTROPN #### [facility] [address] [place] [address] Dr. Oh Trotter PROTIMEon 03-06-2022 INR Coag (PPP) [Relative time] 1.00 {INR} Normal [facility] Comment on above: Performed By: #### P TT, PT #### [facility] [address] [place] [address] Dr. Oh Trotter INR GUIDELINES SEE BELOW Normal [facility] Comment on above: Result Comment: ADITHYA RED INR: 2.0 - 3.0 CONDITIONS NOT LISTED BELOW 2.5 - 3.5 FOR PROSTHETIC HEART VALVE REPLACEMENT 2.5 - 3.5 RECURRENT THROMBOSIS Performed By: #### P TT, PT #### [facility] [address] [place] [address] Dr. Oh Trotter PT Coag (PPP) [Time] 10.8 s Normal 9.0-11.6 [facility] Comment on above: Performed By: #### P TT, PT #### [facility] [address] [place] [address] Dr. Oh Trotter PTTon 03-06-2022 aPTT Coag (Bld) [Time] 27.9 s Normal 22.3-36.2 [facility] Comment on above: Performed By: #### P TT, PT #### [facility] [address] [place] [address] Dr. Oh Trotter TROPONIN, HIGH SENSITIVITYon 03-06-2022 HSTROP 7.9 pg/mL Normal 4.0-76.1 [facility] Comment on above: Result Comment: CUT- OFF POINTS HAVE BEEN ESTABLISHED BASED ON THE FOURTH UNIVERSAL DEFINITIONS OF MYOCARDIAL INFARCTION. THE UPPER REFERENCE LIMIT (URL) OF TROPONIN, DEFINED THE 99TH PERCENTILE OF cTnI DISTRIBUTION IN A REFERENCE POPULATION, HAS BEEN CONFIRMED THE DECISION THRESHOLD FOR RI DIAGNOSIS. Performed By: #### L IPA, CMP, HSTROPN #### [facility] [address] [place] [address] Dr. Oh Trotter URINE MICROSCOPIC ONLYon BACTERIA NONE SEEN Normal NONE SEEN [facility] Comment on above: Performed By: #### Marcelo GLOVER UMICRO #### [facility] [address] [place] [address] Dr. Oh Trotter Bacteria identified Cx Nom (U) NOT INDICATED Normal [facility] Comment on above: Performed By: #### Marcelo GLOVER UMICRO #### [facility] [address] [place] [address] Dr. Oh Trotter CAST NONE SEEN Normal NONE SEEN [facility] Comment on above: Performed By: #### E RUR, UMICRO #### [facility] [address] [place] [address] Dr. Oh Trotter Crystals LM Nom (Urine sed) NONE SEEN Normal NONE SEEN [facility] Comment on above: Performed By: #### E RUR, UMICRO #### [facility] [address] [place] [address] Dr. Oh Trotter Epithelial cells LM Ql (Urine sed) FEW Abnormal NONE SEEN /RARE [facility] Comment on above: Performed By: #### E RUR UMICRO #### [facility] [address] [address] [address] Oh Trotter MUCOUS MODERATE Abnormal NONE SEEN [facility] Comment on above: Performed By: #### E RUR, UMICRO #### [facility] [address] [address] [address] Oh Trotter RBC 0-2 Normal 0-2 [facility] Comment on above: Performed By: #### E JUNER, UMICRO #### [facility] [address] [address] [address] Oh Trotter WBC NONE SEEN Normal NONE SEEN [facility] Comment on above: Performed By: #### E ADALBERTO, UMICRO #### [facility] [address] [address] [address] Oh Trotter XR ABD FLAT UP_PA [...] LUCY JEWELL Date: 2022-03-06 15:55 Normal [facility] XR CSPINE 2_3 VIEWSon 2021 XR CSPINE [...] LUCY JEWELL Date: 2022-03-06 15:54 Normal [facility] CBC AUTO DIFFon 11-02-2021 BASO # 0.0 103/ul Normal 0.0-0.1 [facility] Comment on above: Performed By: #### L IPA, CMP, HSTROPN #### [facility] [address] [place] [address] Dr. Oh Trotter Basophils/100 WBC (Bld) 0.2 % Normal 0.2-2.0 [facility] Comment on above: Performed By: #### L IPA, CMP, HSTROPN #### [facility] [address] [place] [address] Dr. Oh Trotter EO # 0.1 103/ul Normal 0.0-0.7 [facility] Comment on above: Performed By: #### L IPA, CMP, HSTROPN #### [facility] [address] [place] [address] Dr. Oh Trotter Eosinophils/100 WBC (Bld) 1.0 % Normal 0.9-7.0 [facility] Comment on above: Performed By: #### L IPA, CMP, HSTROPN #### [facility] [address] [place] [address] Dr. Oh Trotter Erythrocyte distribution width (RBC) [Ratio] 13.0 % Normal 11.0-15.0 [facility] Comment on above: Performed By: #### L IPA, CMP, HSTROPN #### [facility] [address] [place] [address] Dr. Oh Trotter Hematocrit (Bld) [Volume fraction] 46.6 % Normal 42.0-54.0 [facility] Comment on above: Performed By: #### L IPA, CMP, HSTROPN #### [facility] [address] [place] [address] Dr. Oh Trotter Hemoglobin (Bld) [Mass/Vol] 15.8 g/dL Normal 14.0-18.0 [facility] Comment on above: Performed By: #### L IPA, CMP, HSTROPN #### [facility] [address] [place] [address] Dr. Oh Trotter IG # 0.02 10e3/ul Normal 0.00-0.03 [facility] Comment on above: Performed By: #### L IPA, CMP, HSTROPN #### [facility] [address] [address] [address] Oh Trotter IG % 0.2 % Normal 0.0-0.5 [facility] Comment on above: Performed By: #### L IPA, CMP, HSTROPN #### [facility] [address] [place] [address] Dr. Oh Trotter LYMPH # 1.6 103/ul Normal 1.2-3.8 [facility] Comment on above: Performed By: #### L IPA, CMP, HSTROPN #### [facility] [address] [place] [address] Dr. Oh Trotter Lymphocytes/100 WBC (Bld) 15.3 % Critically low 20.5-60.0 [facility] Comment on above: Performed By: #### L IPA, CMP, HSTROPN #### [facility] [address] [place] [address] Dr. Oh Trotter MANUAL DIFF REQ NO Normal [facility] Comment on above: Performed By: #### L IPA, CMP, HSTROPN #### [facility] [address] [place] [address] Dr. Oh Trotter MCH (RBC) [Entitic mass] 30.1 pg Normal 25.9-34.0 [facility] Comment on above: Performed By: #### L IPA, CMP, HSTROPN #### [facility] [address] [place] [address] Dr. Oh Trotter MCHC (RBC) [Mass/Vol] 33.9 g/dL Normal 29.9-35.2 [facility] Comment on above: Performed By: #### L IPA, CMP, HSTROPN #### [facility] [address] [place] [address] Dr. Oh Trotter MCV (RBC) [Entitic vol] 88.8 fL Normal 80.0-94.0 [facility] Comment on above: Performed By: #### L IPA, CMP, HSTROPN #### [facility] [address] [address] [address] Oh Trotter MONO # 0.7 103/ul Normal 0.3-0.8 [facility] Comment on above: Performed By: #### L IPA, CMP, HSTROPN #### [facility] [address] [address] [address] Oh Trotter Monocytes/100 WBC (Bld) 6.8 % Normal 1.7-12.0 [facility] Comment on above: Performed By: #### L IPA, CMP, HSTROPN #### [facility] [address] [place] [address] Dr. Oh Trotter NEUT # 7.9 103/ul Critically high 1.4-6.5 [facility] Comment on above: Performed By: #### L IPA, CMP, HSTROPN #### [facility] [address] [place] [address] Dr. Oh Trotter Neutrophils/100 WBC (Bld) 76.5 % Critically high 43.0-75.0 [facility] Comment on above: Performed By: #### L IPA, CMP, HSTROPN #### [facility] [address] [place] [address] Dr. Oh Trotter Platelet mean volume (Bld) [Entitic vol] 9.5 fL Normal 9.5-13.5 [facility] Comment on above: Performed By: #### L IPA, CMP, HSTROPN #### [facility] [address] [place] [address] Dr. Oh Trotter PLT 191 103/ul Normal 150-450 [facility] Comment on above: Performed By: #### L IPA, CMP, HSTROPN #### [facility] [address] [place] [address] Dr. Oh Trotter RBC 5.25 106/ul Normal 4.70-6.10 [facility] Comment on above: Performed By: #### L IPA, CMP, HSTROPN #### [facility] [address] [address] [address] Oh Trotter WBC 10.4 103/ul Normal 4.0-11.0 [facility] Comment on above: Performed By: #### L IPA, CMP, HSTROPN #### [facility] [address] [place] [address] Dr. Oh Trotter PROF CHEM 8 (BAS METB)on Anion gap [Moles/Vol] 9.7 mmol/L Normal [facility] Comment on above: Performed By: #### L IPA, CMP, HSTROPN #### [facility] [address] [address] [address] Oh Trotter Calcium [Mass/Vol] 8.9 mg/dL Normal 8.5-10.1 [facility] Comment on above: Performed By: #### L IPA, CMP, HSTROPN #### [facility] [address] [place] [address] Dr. Oh Trotter Chloride [Moles/Vol] 102 mmol/L Normal 98-107 [facility] Comment on above: Performed By: #### L IPA, CMP, HSTROPN #### [facility] [address] [place] [address] Dr. Oh Trotter CO2 [Moles/Vol] 29.1 mmol/L Normal 21.0-32.0 [facility] Comment on above: Performed By: #### L IPA, CMP, HSTROPN #### [facility] [address] [place] [address] Dr. Oh Trotter Creatinine [Mass/Vol] 1.10 mg/dL Normal 0.70-1.30 [facility] Comment on above: Performed By: #### L IPA, CMP, HSTROPN #### [facility] [address] [place] [address] Dr. Oh Trotter EGFR-AF IRANIAN >60 Normal >=60 [facility] Comment on above: Performed By: #### L IPA, CMP, HSTROPN #### [facility] [address] [place] [address] Dr. Oh Trotter EGFR-NON AF IRANIAN >60 Normal >=60 [facility] Comment on above: Performed By: #### L IPA, CMP, HSTROPN #### [facility] [address] [address] [address] Oh Trotter Glucose [Mass/Vol] 114 mg/dL Critically high 74-106 [facility] Comment on above: Performed By: #### L IPA, CMP, HSTROPN #### [facility] [address] [address] [address] Oh Trotter Potassium [Moles/Vol] 3.8 mmol/L Normal 3.5-5.1 [facility] Comment on above: Performed By: #### L IPA, CMP, HSTROPN #### [facility] [address] [place] [address] Dr. Oh Trotter Sodium [Moles/Vol] 137 mmol/L Normal 136-145 [facility] Comment on above: Performed By: #### L IPA, CMP, HSTROPN #### [facility] [address] [address] [address] Oh Trotter Urea nitrogen [Mass/Vol] 10.0 mg/dL Normal 7.0-18.0 [facility] Comment on above: Performed By: #### L IPA, CMP, HSTROPN #### [facility] [address] [address] [address] Oh Trotter Urea nitrogen/Creatinine [Mass ratio] 9.1 mg/mg Normal [facility] Comment on above: Performed By: #### L IPA, CMP, HSTROPN #### [facility] [address] [place] [address] Dr. Oh Trotter CARDIAC SUKUMAR ADMITon 022 CK [Catalytic activity/Vol] 97 U/L Normal 39-308 [facility] Comment on above: Performed By: #### L IPA, CMP, HSTROPN #### [facility] [address] [address] [address] Oh Trotter CK.MB [Mass/Vol] 0.75 ng/mL Normal <=3.60 [facility] Comment on above: Performed By: #### L IPA, CMP, HSTROPN #### [facility] [address] [address] [address] Oh Trotter HSTROP 4.4 pg/mL Normal 4.0-76.1 [facility] Comment on above: Result Comment: CUT- OFF POINTS HAVE BEEN ESTABLISHED BASED ON THE FOURTH UNIVERSAL DEFINITIONS OF MYOCARDIAL INFARCTION. THE UPPER REFERENCE LIMIT (URL) OF TROPONIN, DEFINED THE 99TH PERCENTILE OF cTnI DISTRIBUTION IN A REFERENCE POPULATION, HAS BEEN CONFIRMED THE DECISION THRESHOLD FOR RI DIAGNOSIS. Performed By: #### L IPA, CMP, HSTROPN #### [facility] [address] [place] [address] Dr. Oh Trotter CARON 54 ng/mL Normal 16-96 [facility] Comment on above: Performed By: #### L IPA, CMP, HSTROPN #### [facility] [address] [place] [address] Dr. Oh Trotter CBC AUTO DIFFon 10-16-2021 BASO # 0.0 103/ul Normal 0.0-0.1 [facility] Comment on above: Performed By: #### P TT, PT #### [facility] [address] [place] [address] Dr. Oh Trotter Basophils/100 WBC (Bld) 0.1 % Critically low 0.2-2.0 [facility] Comment on above: Performed By: #### P TT, PT #### [facility] [address] [address] [address] Oh Trotter EO # 0.0 103/ul Normal 0.0-0.7 [facility] Comment on above: Performed By: #### P TT, PT #### [facility] [address] [address] [address] Oh Trotter Eosinophils/100 WBC (Bld) 0.3 % Critically low 0.9-7.0 [facility] Comment on above: Performed By: #### P TT, PT #### [facility] [address] [place] [address] Dr. Oh Trotter Erythrocyte distribution width (RBC) [Ratio] 12.5 % Normal 11.0-15.0 [facility] Comment on above: Performed By: #### P TT, PT #### [facility] [address] [place] [address] Dr. Oh Trotter Hematocrit (Bld) [Volume fraction] 47.1 % Normal 42.0-54.0 [facility] Comment on above: Performed By: #### P TT, PT #### [facility] [address] [place] [address] Dr. Oh Trotter Hemoglobin (Bld) [Mass/Vol] 16.7 g/dL Normal 14.0-18.0 [facility] Comment on above: Performed By: #### P TT, PT #### [facility] [address] [place] [address] Dr. Oh Trotter IG # 0.02 10e3/ul Normal 0.00-0.03 [facility] Comment on above: Performed By: #### P TT, PT #### [facility] [address] [place] [address] Dr. Oh Trotter IG % 0.3 % Normal 0.0-0.5 [facility] Comment on above: Performed By: #### P TT, PT #### [facility] [address] [place] [address] Dr. Oh Trotter LYMPH # 2.3 103/ul Normal 1.2-3.8 [facility] Comment on above: Performed By: #### P TT, PT #### [facility] [address] [place] [address] Dr. Oh Trotter Lymphocytes/100 WBC (Bld) 31.7 % Normal 20.5-60.0 [facility] Comment on above: Performed By: #### P TT, PT #### [facility] [address] [place] [address] Dr. Oh Trotter MANUAL DIFF REQ NO Normal [facility] Comment on above: Performed By: #### P TT, PT #### [facility] [address] [place] [address] Dr. Oh Trotter MCH (RBC) [Entitic mass] 29.9 pg Normal 25.9-34.0 [facility] Comment on above: Performed By: #### P TT, PT #### [facility] [address] [place] [address] Dr. Oh Trotter MCHC (RBC) [Mass/Vol] 35.5 g/dL Critically high 29.9-35.2 [facility] Comment on above: Performed By: #### P TT, PT #### [facility] [address] [place] [address] Dr. Oh Trotter MCV (RBC) [Entitic vol] 84.4 fL Normal 80.0-94.0 [facility] Comment on above: Performed By: #### P TT, PT #### [facility] [address] [place] [address] Dr. Oh Trotter MONO # 0.4 103/ul Normal 0.3-0.8 [facility] Comment on above: Performed By: #### P TT, PT #### [facility] [address] [place] [address] Dr. Oh Trotter Monocytes/100 WBC (Bld) 4.9 % Normal 1.7-12.0 [facility] Comment on above: Performed By: #### P TT, PT #### [facility] [address] [place] [address] Dr. Oh Trotter NEUT # 4.6 103/ul Normal 1.4-6.5 [facility] Comment on above: Performed By: #### P TT, PT #### [facility] [address] [place] [address] Dr. Oh Trotter Neutrophils/100 WBC (Bld) 62.7 % Normal 43.0-75.0 [facility] Comment on above: Performed By: #### P TT, PT #### [facility] [address] [place] [address] Dr. Oh Trotter Platelet mean volume (Bld) [Entitic vol] 10.3 fL Normal 9.5-13.5 [facility] Comment on above: Performed By: #### P TT, PT #### [facility] [address] [place] [address] Dr. Oh Trotter PLT 225 103/ul Normal 150-450 [facility] Comment on above: Performed By: #### P TT, PT #### [facility] [address] [place] [address] Dr. Oh Trotter RBC 5.58 106/ul Normal 4.70-6.10 [facility] Comment on above: Performed By: #### P TT, PT #### [facility] [address] [place] [address] Dr. Oh Trotter WBC 7.3 103/ul Normal 4.0-11.0 [facility] Comment on above: Performed By: #### P TT, PT #### [facility] [address] [place] [address] Dr. Oh Trotter D-DIMERon 10-16-2021 D-DIMER <0.19 Normal <=0.59 [facility] Comment on above: Performed By: #### P TT, PT #### [facility] [address] [place] [address] Dr. Oh Trotter D-DIMER COMMENTS SEE BELOW Normal [facility] Comment on above: Result Comment: Incr [...] Performed By: #### P TT, PT #### [facility] [address] [place] [address] Dr. Oh Trotter LIPASEon 10-16-2021 Lipase [Catalytic activity/Vol] 127.0 U/L Normal 73.0-393.0 [facility] Comment on above: Performed By: #### L IPA, CMP, HSTROPN #### [facility] [address] [place] [address] Dr. Oh Trotter PROF 14(COMP METB)on 022 Albumin [Mass/Vol] 4.0 g/dL Normal 3.4-5.0 [facility] Comment on above: Performed By: #### L IPA, CMP, HSTROPN #### [facility] [address] [place] [address] Dr. Oh Trotter Albumin/Globulin [Mass ratio] 0.9 {ratio} Normal [facility] Comment on above: Performed By: #### L IPA, CMP, HSTROPN #### [facility] [address] [place] [address] Dr. Oh Trotter ALP [Catalytic activity/Vol] 73 U/L Normal 46-116 [facility] Comment on above: Performed By: #### L IPA, CMP, HSTROPN #### [facility] [address] [place] [address] Dr. Oh Trotter ALT [Catalytic activity/Vol] 45 U/L Normal 16-63 [facility] Comment on above: Performed By: #### L IPA, CMP, HSTROPN #### [facility] [address] [place] [address] Dr. Oh Trotter Anion gap [Moles/Vol] 15.4 mmol/L Normal [facility] Comment on above: Performed By: #### L IPA, CMP, HSTROPN #### [facility] [address] [place] [address] Dr. Oh Trotter AST [Catalytic activity/Vol] 25 U/L Normal 15-37 [facility] Comment on above: Performed By: #### L IPA, CMP, HSTROPN #### [facility] [address] [place] [address] Dr. Oh Trotter Bilirubin [Mass/Vol] 0.9 mg/dL Normal 0.2-1.0 [facility] Comment on above: Performed By: #### L IPA, CMP, HSTROPN #### [facility] [address] [place] [address] Dr. Oh Trotter Calcium [Mass/Vol] 9.3 mg/dL Normal 8.5-10.1 [facility] Comment on above: Performed By: #### L IPA, CMP, HSTROPN #### [facility] [address] [address] [address] Oh Trotter Chloride [Moles/Vol] 103 mmol/L Normal 98-107 [facility] Comment on above: Performed By: #### L IPA, CMP, HSTROPN #### [facility] [address] [place] [address] Dr. Oh Trotter CO2 [Moles/Vol] 20.4 mmol/L Critically low 21.0-32.0 [facility] Comment on above: Performed By: #### L IPA, CMP, HSTROPN #### [facility] [address] [place] [address] Dr. Oh Trotter Creatinine [Mass/Vol] 1.17 mg/dL Normal 0.70-1.30 [facility] Comment on above: Performed By: #### L IPA, CMP, HSTROPN #### [facility] [address] [place] [address] Dr. Oh Trotter EGFR-AF IRANIAN >60 Normal >=60 [facility] Comment on above: Performed By: #### L IPA, CMP, HSTROPN #### [facility] [address] [place] [address] Dr. Oh Trotter EGFR-NON AF IRANIAN >60 Normal >=60 [facility] Comment on above: Performed By: #### L IPA, CMP, HSTROPN #### [facility] [address] [place] [address] Dr. Oh Trotter Globulin (S) [Mass/Vol] 4.6 g/dL Normal [facility] Comment on above: Performed By: #### L IPA, CMP, HSTROPN #### [facility] [address] [place] [address] Dr. Oh Trotter Glucose [Mass/Vol] 127 mg/dL Critically high 74-106 [facility] Comment on above: Performed By: #### L IPA, CMP, HSTROPN #### [facility] [address] [place] [address] Dr. Oh Trotter Potassium [Moles/Vol] 3.8 mmol/L Normal 3.5-5.1 [facility] Comment on above: Performed By: #### L IPA, CMP, HSTROPN #### [facility] [address] [address] [address] Oh Trotter Protein [Mass/Vol] 8.6 g/dL Critically high 6.4-8.2 [facility] Comment on above: Performed By: #### L IPA, CMP, HSTROPN #### [facility] [address] [address] [address] Oh Trotter Sodium [Moles/Vol] 135 mmol/L Critically low 136-145 [facility] Comment on above: Performed By: #### L IPA, CMP, HSTROPN #### [facility] [address] [address] [address] Oh Trotter Urea nitrogen [Mass/Vol] 12.0 mg/dL Normal 7.0-18.0 [facility] Comment on above: Performed By: #### L IPA, CMP, HSTROPN #### [facility] [address] [address] [address] Oh Trotter Urea nitrogen/Creatinine [Mass ratio] 10.3 mg/mg Normal [facility] Comment on above: Performed By: #### L IPA, CMP, HSTROPN #### [facility] [address] [place] [address] Dr. Oh Trotter XR CHEST 1 Von [...] by: GALDINO ARROYO Date: 2021-10-16 13:09 Normal [facility] BNPon 09-15-2021 Natriuretic peptide B (Bld) [Mass/Vol] 9.0 pg/mL Normal <=450.0 [facility] Comment on above: Performed By: #### H STROPN, TSH, BNP, CMP #### [facility] [address] [place] [address] Dr. Oh Trotter CBC AUTO DIFFon 09-15-2021 BASO # 0.0 103/ul Normal 0.0-0.1 [facility] Comment on above: Performed By: #### L IPA, CMP, HSTROPN #### [facility] [address] [place] [address] Dr. Oh Trotter Basophils/100 WBC (Bld) 0.1 % Critically low 0.2-2.0 [facility] Comment on above: Performed By: #### L IPA, CMP, HSTROPN #### [facility] [address] [place] [address] Dr. Oh Trotter EO # 0.1 103/ul Normal 0.0-0.7 [facility] Comment on above: Performed By: #### L IPA, CMP, HSTROPN #### [facility] [address] [place] [address] Dr. Oh Trotter Eosinophils/100 WBC (Bld) 0.6 % Critically low 0.9-7.0 [facility] Comment on above: Performed By: #### L IPA, CMP, HSTROPN #### [facility] [address] [place] [address] Dr. Oh Trotter Erythrocyte distribution width (RBC) [Ratio] 12.5 % Normal 11.0-15.0 [facility] Comment on above: Performed By: #### L IPA, CMP, HSTROPN #### [facility] [address] [place] [address] Dr. Oh Trotter Hematocrit (Bld) [Volume fraction] 48.3 % Normal 42.0-54.0 [facility] Comment on above: Performed By: #### L IPA, CMP, HSTROPN #### [facility] [address] [place] [address] Dr. Oh Trotter Hemoglobin (Bld) [Mass/Vol] 16.7 g/dL Normal 14.0-18.0 [facility] Comment on above: Performed By: #### L IPA, CMP, HSTROPN #### [facility] [address] [place] [address] Dr. Oh Trotter IG # 0.01 10e3/ul Normal 0.00-0.03 [facility] Comment on above: Performed By: #### L IPA, CMP, HSTROPN #### [facility] [address] [place] [address] Dr. Oh Trotter IG % 0.1 % Normal 0.0-0.5 [facility] Comment on above: Performed By: #### L IPA, CMP, HSTROPN #### [facility] [address] [place] [address] Dr. Oh Trotter LYMPH # 3.5 103/ul Normal 1.2-3.8 [facility] Comment on above: Performed By: #### L IPA, CMP, HSTROPN #### [facility] [address] [place] [address] Dr. Oh Trotter Lymphocytes/100 WBC (Bld) 38.8 % Normal 20.5-60.0 [facility] Comment on above: Performed By: #### L IPA, CMP, HSTROPN #### [facility] [address] [place] [address] Dr. Oh Trotter MANUAL DIFF REQ NO Normal [facility] Comment on above: Performed By: #### L IPA, CMP, HSTROPN #### [facility] [address] [place] [address] Dr. Oh Trotter MCH (RBC) [Entitic mass] 29.3 pg Normal 25.9-34.0 [facility] Comment on above: Performed By: #### L IPA, CMP, HSTROPN #### [facility] [address] [place] [address] Dr. Oh Trotter MCHC (RBC) [Mass/Vol] 34.6 g/dL Normal 29.9-35.2 [facility] Comment on above: Performed By: #### L IPA, CMP, HSTROPN #### [facility] [address] [place] [address] Dr. Oh Trotter MCV (RBC) [Entitic vol] 84.9 fL Normal 80.0-94.0 [facility] Comment on above: Performed By: #### L IPA, CMP, HSTROPN #### [facility] [address] [place] [address] Dr. Oh Trotter MONO # 0.5 103/ul Normal 0.3-0.8 [facility] Comment on above: Performed By: #### L IPA, CMP, HSTROPN #### [facility] [address] [place] [address] Dr. Oh Trotter Monocytes/100 WBC (Bld) 5.4 % Normal 1.7-12.0 [facility] Comment on above: Performed By: #### L IPA, CMP, HSTROPN #### [facility] [address] [place] [address] Dr. Oh Trotter NEUT # 4.9 103/ul Normal 1.4-6.5 [facility] Comment on above: Performed By: #### L IPA, CMP, HSTROPN #### [facility] [address] [place] [address] Dr. Oh Trotter Neutrophils/100 WBC (Bld) 55.0 % Normal 43.0-75.0 [facility] Comment on above: Performed By: #### L IPA, CMP, HSTROPN #### [facility] [address] [place] [address] Dr. Oh Trotter Platelet mean volume (Bld) [Entitic vol] 9.7 fL Normal 9.5-13.5 [facility] Comment on above: Performed By: #### L IPA, CMP, HSTROPN #### [facility] [address] [place] [address] Dr. Oh Trotter PLT 227 103/ul Normal 150-450 [facility] Comment on above: Performed By: #### L IPA, CMP, HSTROPN #### [facility] [address] [place] [address] Dr. Oh Trotter RBC 5.69 106/ul Normal 4.70-6.10 [facility] Comment on above: Performed By: #### L IPA, CMP, HSTROPN #### [facility] [address] [address] [address] Oh Trotter WBC 8.9 103/ul Normal 4.0-11.0 [facility] Comment on above: Performed By: #### L IPA, CMP, HSTROPN #### [facility] [address] [address] [address] Oh Trotter D-DIMERon 09-15-2021 D-DIMER 0.19 mg/L FEU Normal <=0.59 [facility] Comment on above: Performed By: #### L IPA, CMP, HSTROPN #### [facility] [address] [place] [address] Dr. Oh Trotter D-DIMER COMMENTS SEE BELOW Normal [facility] Comment on above: Result Comment: Incr [...] By: #### L IPA, CMP, HSTROPN #### [facility] [address] [place] [address] Dr. Oh Trotter PROF 14(COMP METB)on 022 Albumin [Mass/Vol] 3.9 g/dL Normal 3.4-5.0 [facility] Comment on above: Performed By: #### H STROPN, TSH, BNP, CMP #### [facility] [address] [place] [address] Dr. Oh Trotter Albumin/Globulin [Mass ratio] 0.8 {ratio} Normal [facility] Comment on above: Performed By: #### H STROPN, TSH, BNP, CMP #### [facility] [address] [address] [address] Oh Trotter ALP [Catalytic activity/Vol] 73 U/L Normal 46-116 [facility] Comment on above: Performed By: #### H STROPN, TSH, BNP, CMP #### [facility] [address] [address] [address] Oh Trotetr ALT [Catalytic activity/Vol] 48 U/L Normal 16-63 [facility] Comment on above: Performed By: #### H STROPN, TSH, BNP, CMP #### [facility] [address] [address] [address] Oh Trotter Anion gap [Moles/Vol] 14.9 mmol/L Normal [facility] Comment on above: Performed By: #### H STROPN, TSH, BNP, CMP #### [facility] [address] [place] [address] Dr. Oh Trotter AST [Catalytic activity/Vol] 22 U/L Normal 15-37 [facility] Comment on above: Performed By: #### H STROPN, TSH, BNP, CMP #### [facility] [address] [address] [address] Oh Trotter Bilirubin [Mass/Vol] 0.4 mg/dL Normal 0.2-1.0 [facility] Comment on above: Performed By: #### H STROPN, TSH, BNP, CMP #### [facility] [address] [address] [address] Oh Trotter Calcium [Mass/Vol] 9.2 mg/dL Normal 8.5-10.1 [facility] Comment on above: Performed By: #### H STROPN, TSH, BNP, CMP #### [facility] [address] [address] [address] Oh Trotter Chloride [Moles/Vol] 102 mmol/L Normal 98-107 [facility] Comment on above: Performed By: #### H STROPN, TSH, BNP, CMP #### [facility] [address] [address] [address] Oh Trotter CO2 [Moles/Vol] 23.7 mmol/L Normal 21.0-32.0 [facility] Comment on above: Performed By: #### H STROPN, TSH, BNP, CMP #### [facility] [address] [place] [address] Dr. Oh Trotter Creatinine [Mass/Vol] 1.14 mg/dL Normal 0.70-1.30 [facility] Comment on above: Performed By: #### H STROPN, TSH, BNP, CMP #### [facility] [address] [address] [address] Oh Trotter EGFR-AF IRANIAN >60 Normal >=60 [facility] Comment on above: Performed By: #### H STROPN, TSH, BNP, CMP #### [facility] [address] [place] [address] Dr. Oh Trotter EGFR-NON AF IRANIAN >60 Normal >=60 [facility] Comment on above: Performed By: #### H STROPN, TSH, BNP, CMP #### [facility] [address] [place] [address] Dr. Oh Trotter Globulin (S) [Mass/Vol] 4.7 g/dL Normal [facility] Comment on above: Performed By: #### H STROPN, TSH, BNP, CMP #### [facility] [address] [place] [address] Dr. Oh Trotter Glucose [Mass/Vol] 120 mg/dL Critically high 74-106 [facility] Comment on above: Performed By: #### H STROPN, TSH, BNP, CMP #### [facility] [address] [place] [address] Dr. Oh Trotter Potassium [Moles/Vol] 3.6 mmol/L Normal 3.5-5.1 [facility] Comment on above: Performed By: #### H STROPN, TSH, BNP, CMP #### [facility] [address] [place] [address] Dr. Oh Trotter Protein [Mass/Vol] 8.6 g/dL Critically high 6.4-8.2 [facility] Comment on above: Performed By: #### H STROPN, TSH, BNP, CMP #### [facility] [address] [address] [address] Oh Trotter Sodium [Moles/Vol] 137 mmol/L Normal 136-145 [facility] Comment on above: Performed By: #### H STROPN, TSH, BNP, CMP #### [facility] [address] [place] [address] Dr. Oh Trotter Urea nitrogen [Mass/Vol] 12.0 mg/dL Normal 7.0-18.0 [facility] Comment on above: Performed By: #### H STROPN, TSH, BNP, CMP #### [facility] [address] [place] [address] Dr. Oh Trotter Urea nitrogen/Creatinine [Mass ratio] 10.5 mg/mg Normal [facility] Comment on above: Performed By: #### H STROPN, TSH, BNP, CMP #### [facility] [address] [place] [address] Dr. Oh Trotter PROTIMEon 09-15-2021 INR Coag (PPP) [Relative time] 0.94 {INR} Normal [facility] Comment on above: Performed By: #### L IPA, CMP, HSTROPN #### [facility] [address] [place] [address] Dr. Oh Trotter INR GUIDELINES SEE BELOW Normal [facility] Comment on above: Result Comment: AIDTHYA RED INR: 2.0 - 3.0 CONDITIONS NOT LISTED BELOW 2.5 - 3.5 FOR PROSTHETIC HEART VALVE REPLACEMENT 2.5 - 3.5 RECURRENT THROMBOSIS Performed By: #### L IPA, CMP, HSTROPN #### [facility] [address] [place] [address] Dr. Oh Trotter PT Coag (PPP) [Time] 10.2 s Normal 9.0-11.6 [facility] Comment on above: Performed By: #### L IPA, CMP, HSTROPN #### [facility] [address] [place] [address] Dr. Oh Trotter PTTon 09-15-2021 aPTT Coag (Bld) [Time] 26.6 s Normal 22.3-36.2 [facility] Comment on above: Performed By: #### L IPA, CMP, HSTROPN #### [facility] [address] [place] [address] Dr. Oh Trotter TROPONIN, HIGH SENSITIVITYon 09-15-2021 HSTROP 3.4 pg/mL Critically low 4.0-76.[address] [facility] Comment on above: Result Comment: CUT- OFF POINTS HAVE BEEN ESTABLISHED BASED ON THE FOURTH UNIVERSAL DEFINITIONS OF MYOCARDIAL INFARCTION. THE UPPER REFERENCE LIMIT (URL) OF TROPONIN, DEFINED THE 99TH PERCENTILE OF cTnI DISTRIBUTION IN A REFERENCE POPULATION, HAS BEEN CONFIRMED THE DECISION THRESHOLD FOR RI DIAGNOSIS. Performed By: #### P TT, PT #### [facility] [address] [place] [address] Dr. Oh Trotter TSHon 09-15-2021 TSH 1.085 uIU/mL Normal 0.358-3.740 [facility] Comment on above: Performed By: #### H STROPN, TSH, BNP, CMP #### [facility] [address] [place] [address] Dr. Oh Trotter TSH RANGE SEE BELOW Normal [facility] Comment on above: Result Comment: <0.3 4 UIU/ml HYPERTHYROID 0.34-5.60 UIU/ml EUTHYROID >5.60 UIU/ml HYPOTHYROID Performed By: #### H STROPN, TSH, BNP, CMP #### [facility] [address] [place] [address] Dr. Oh Trotter XR ABD FLAT UP_PA [...] OTTO POLANCO Date: 2021-09-15 19:35 Normal [facility] XR CHEST 1 Von 09-07-2021 XR [...] ELIZABETH TURNER Date: 2021-09-06 23:38 Normal [facility] Vital Signs Date Time Vital Sign Value Performing Clinician Radha casas 12-21-2023 15:26-0400 Blood Pressure Location Lucy BEY [facility] 12-21-2023 15:26-0400 Diastolic blood pressure 88 mm[Hg] Lucy BEY [facility] 12-21-2023 15:26-0400 Heart rate 80 /min Lucy BEY [facility] 12-21-2023 15:26-0400 Respiratory rate 16 /min Lucy BEY [facility] 12-21-2023 15:26-0400 Systolic blood pressure 120 mm[Hg] Lucy BEY [facility] Encounters Encounter Date Encounter Type Care Provider Facility Start: 02-29-2024 ambulatory CAPO TAFOYA [facility] Start: 02-29-2024 End: 02-29-2024 ambulatory [facility] Start: 02-23-2024 End: 02-23-2024 ambulatory [facility] Start: 12-21-2023 End: 12-21-2023 ambulatory Lucy BEY Facility:[facility] Start: 12-21-2023 End: 12-21-2023 Patient encounter procedure Lucy BEY [facility] Start: 08-09-2022 End: 08-09-2022 ambulatory LEIGHANN SORIANO [...] Cardiac ablation usi ng fluoroscopy guidance Lucy BEY Cholecystectomy Lucy BEY Immunizations Immunization Date Immunization Notes Care Provider Sayda roberson NEGATED: Highlighted row has not occurred!06-03-2022 influenza virus vaccine, unspecified formulation Lucy BEY [facility] Payers Date Payer Category Payer Unknown [id number] 2.16.84 [id number] 1987 Unknown [id number] 2.16.84 [id number] 1987 Unknown [id number] 2.16.84 [id number] 1987 Unknown [id number] 2.16.84 [id number] 1987 Unknown [id number] 2.16.84 [id number] 1987 Unknown [id number] 2.16.84 [id number] 1987 Unknown [id number] 2.16.84 [id number] 1987 Unknown [id number] 2.16.84 [id number] 1987 Unknown [id number] 2.16.84 [id number] 1987 Unknown [id number] 2.16.84 [id number] 1987 Unknown [id number] 2.16.84 [id number] 1987 Unknown [id number] 2.16.84 [id number] 1987 Unknown [id number] 2.16.84 [id number] 1987 Unknown [id number] 2.16.8 [id number] 1959 Unknown [id number] Social History Date Type Detail Facility Start: 12-21-2023 Tobacco smoking status Heavy t obacco smoker (finding) [facility] Tobacco smoking status Never Louise [facility] Sex Assigned At Male [facility] Functional Status Date Assessment Result Facility 12-21-2023 Functional Status N/A [facility] [place] Clinical Note 02-29-2024 Note Date & Type Note Facility 02-29-2024 Note Patient: Chuck arriaza Procedure Summary Date: 02/29/24 Room / Location: [facility] OPERATING ROOM 02 / [facility] Operating Room Anesthesia Start: 0756 Anesthesia Stop: 0856 Procedures: EXAM UNDER ANESTHESIA, (Rectum) HEMORRHOIDECTOMY, DEBRIDMENT OF ANAL FISSURE (Rectum) Diagnosis: Anal pain (Anal pain [K62.89]) Surgeons: Urbano Rodriguez MD Responsible Provider: Capo Tafoya MD Anesthesia Type: general ASA Status: 3 Anesthesia Type: general Vitals Value Taken Time BP 144/83 02/29/24 0925 Temp 36 02/29/24 0942 Pulse 102 02/29/24 09 Resp 18 02/29/24 0925 SpO2 99 % 02/29/24924 Anesthesia Post Evaluation Patient location during evaluation: PACU Patient participation: complete - patient participated Level of consciousness: awake and alert Pain score: 3 Pain management: adequate Airway patency: patent Cardiovascular status: acceptable Respiratory status: acceptable Hydration status: acceptable Patient is hemodynamically stable and is able to be discharged from PACU per anesthesia protocol. No notable events documented. [facility] Procedure note 02-29-2024 Note Date & Type Note Facility 02-29-2024 Note Airway Date/Time: 02/29/2024 8:07 AM Urgency: elective General Information and Staff Patient location during procedure: OR Anesthesiologist: Capo Tafoya MD Resident/RESERVATION CLERK/CAA: Facundo Rudolph MD Performed: resident/RESERVATION CLERK/CAA Indications and Patient Condition Indications for airway management: anesthesia Spontaneous Ventilation: absent Sedation level: deep Preoxygenated: yes Mask difficulty assessment: 1 - vent by mask Final Airway Details Final airway type: endotracheal airway Successful airway: ETT Cuffed: yes Successful intubation technique: direct laryngoscopy Facilitating devices/methods: intubating stylet Endotracheal tube insertion site: oral Blade: Rogers Blade size: #4 ETT size (mm): 8.0 Cormack-Lehane Classification: grade I - full view of glottis Placement verified by: chest auscultation and capnometry Measured from: lips ETT to lips (cm): 24 Number of attempts at approach: 1 Number of other approaches attempted: 0 [facility] Clinical Note 02-28-2024 Note Date & Type Note Facility 02-28-2024 Note Patient: Chuck arriaza Procedure Information Date/Time: 02/29/24 0730 Procedures: EXAM UNDER ANESTHESIA, HEMORRHOIDECTOMY, DEBRIDMENT OF ANAL FISSURE Location: [facility] OPERATING ROOM 02 / [facility] Operating Room Surgeons: Urbano Rodriguez MD Relevant Problems Cardio (+) Migraines (+) Eggtc-Ytrpzteuu-Wgcsu syndrome GI (+) GERD (gastroesophageal reflux disease) Neuro/Psych (+) Migraines Clinical information reviewed: Tobacco Allergies Meds Med Hx Surg Hx Fam Hx Soc Hx Physical Exam Airway Mallampati: II TM distance: >3 FB Neck ROM: full Comments: Full gray. Short thick neck Cardiovascular - normal exam Rhythm: regular Rate: normal Dental - normal exam Pulmonary - normal exam Abdominal (+) obese Other findings: Pertinent history includes: Anxiety, depression, panic disorder. 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 Smoking status: Every Day Vaping Use Vaping Use: Never used Alcohol use: Not Currently Drug use: Yes Types: Marijuana Pertinent Diagnostic data includes: Fasting / NPO guidelines have been met unless otherwise stated, including NPO for solids > 8 hrs. Pt is not regularly taking therapeutically dosed systemic anticoagulant, Pt is not regularly taking beta laurel. The most recent available ECG is on DOS, PENDING. Anesthesia Plan ASA 3 general (GETA. Prone) The patient is a current smoker. Patient was previously instructed to abstain from smoking on day of procedure. Patient did not smoke on day of procedure. Education provided regarding risk of obstructive sleep apnea. intravenous induction Postoperative administration of opioids is intended. Anesthetic plan and risks discussed with patient. Plan discussed with attending and resident. 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 Do not wear perfume, make-up, nail zimbabwean, or lotions on the day of your [...] need to make any changes, please call [phone]. Notify your surgeon if you develop any illness such as a cold, cough, fever, sore throat or vomiting between now and your surgery. Thank you for entrusting us with your care. [facility] Surgical Services Team [facility] Progress note 02-23-2024 Note Date & Type [...] past 36 hour(s)). No follow-ups on file. [facility] Clinical Note 06-24-2022 Note Date & Type [...] good condition. CC: Leighann Soriano CNP [facility] Evaluation + Plan note Note Date & Type Note Facility Evaluation + Plan note No data available for this section [facility] Hospital Discharge instructions Note Date & Type Note Facility Hospital Discharge instructions No data available for this section [facility] Progress note Note Date & Type Note Facility Progress note No data available for this section [facility] Summary Purpose Family History No Family History [...] and content) DATE CREATED AUTHOR 08/11/2022 [facility] DATE CREATED AUTHOR AUTHOR'S ORGANIZ ATION 12/27/2023 [facility] DATE CREATED AUTHOR AUTHOR'S ORGANIZ ATION 03/01/2024 [facility] Patient Care team informatio n (unrecognized section and content) Personnel Name: LEIGHANN SORIANO CNP Address: Address: [address] [place], [place] [address] FOR RECORDS PERTAINING TO PATIENTS WHO ARE [...] BE BASED ON THE PRIMARY CLINICAL RECORDS. [facility]. provides no warranty or guarantee of the accuracy or completeness of information in this document.
[2024-03-05 11:44] VITALS: PULSE 89; O2SAT 99
--- NOTE | 2024-03-05 15:43 | ED.SKABFB1 ---
HPI - Skin/Abscess/Foreign Bdy General Chief complaint: Skin/Abscess/Foreign Body Stated complaint: GENERAL WEAKENESS Time Seen by Provider: 03/05/24 11:11 Source: patient Mode of arrival: walk-in History of Present Illness HPI narrative: The patient had hemorrhoidectomy according to his history 4 days ago in another facility in [place] and apparently is coming to us tearful in pain after he had not been taking anything other than ibuprofen and it not helping Patient denies any fever chills he has been having pain whenever he goes to the bathroom as well and has been trying the warm sitz bath but they are not effective Related Data Home Medications ?Medication ?Instructions ?Recorded ?Confirmed divalproex 250 mg tablet,extended 250 mg PO DAILY 04/11/23 02/27/24 release 24 hr fluoxetine 10 mg capsule 60 mg PO DAILY 04/11/23 02/27/24 hydroxyzine HCl 25 mg tablet 50 mg PO BID PRN anxiety 04/11/23 02/27/24 olanzapine 10 mg tablet 10 mg PO DAILY 04/11/23 02/27/24 divalproex 500 mg tablet,extended 500 mg PO BEDTIME 02/27/24 02/27/24 release 24 hr Previous Rx's ?Medication ?Instructions ?Recorded lidocaine 5 % topical cream 1 applic topical TID PRN pain #15 02/27/24 (RectiCare) grams meloxicam 15 mg tablet 15 mg PO DAILY PRN pain #3 tabs 02/27/24 diclofenac sodium 75 mg 75 mg PO BID PRN pain #20 tabs 03/05/24 tablet,delayed release lidocaine 5 % topical cream 1 applic topical Q4H PRN pain #30 03/05/24 ([facility]iCare) grams oxycodone-acetaminophen 5 mg-325 1 tab PO Q12H PRN pain 2 days #4 03/05/24 mg tablet (Percocet) tabs Allergies Allergy/AdvReac Type Severity Reaction Status Date / Time erythromycin base Allergy Intermediate Rash Verified 04/11/23 13:59 Penicillins Allergy Intermediate Rash Verified 04/11/23 13:59 Review of Systems ROS Status of ROS 10 or more systems reviewed and unremarkable except as noted in history and below PFSH PFSH Social History Smoking status: Current every day smoker Little interest or pleasure in doing things: not at all Feeling down, depressed, or hopeless: not at all Exam Narrative Exam Narrative: Nurses notes and vital signs reviewed and patient is not hypoxic. Rectal exam: Localized tenderness with the wound of hemorrhoidectomy is healing there is no abscess General: Well-appearing and in no apparent distress. Skin: Warm, dry, no pallor noted. No rash. Head: Normocephalic, atraumatic. Neck: Supple, non-tender. Eye: Pupils are equal, round and EOMI. No scleral icterus. Ears, Nose, Mouth, and Throat: TM are clear, no nasal mucosal hypertrophy. Oral mucosa is moist, no posterior oropharynx erythema, uvula is mid-line Cardiovascular: Regular Rate and Rhythm without murmur, gallop or rub. Respiratory: No accessory muscle use or respiratory distress. Lungs are clear to auscultation, no wheezing, rales or rhonchi Chest Wall: no tenderness Back: No midline thoracic or lumbar vertebral tenderness. No CVA tenderness Musculoskeletal: normal ROM, no calf or popliteal tenderness, no lower extremity edema/swelling GI: Abdomen is soft, non-distended. Normal bowel sounds. No masses appreciated. No tenderness to palpation. No rebound, guarding, or rigidity noted. Neurological: A&O x4. No cranial nerve dysfunction observed. No truncal ataxia. Moves all extremities. Sensation intact. Psychiatric: Cooperative and interactive. Normal mood and affect. Constitutional Vital Signs, click to edit/add: Last Vital Signs Temp 98.2 F 03/05/24 11:04 Pulse 89 03/05/24 11:44 Resp 18 03/05/24 11:44 BP 150/90 H 03/05/24 11:04 Pulse Ox 99 03/05/24 11:44 O2 Del Method Room Air 03/05/24 11:44 Course Vital Signs Vital signs: Vital Signs Temperature 98.2 F 03/05/24 11:04 Pulse Rate 98 H 03/05/24 11:04 Respiratory Rate 20 03/05/24 11:04 Blood Pressure 150/90 H 03/05/24 11:04 Pulse Oximetry 96 03/05/24 11:04 Oxygen Delivery Method Room Air 03/05/24 11:04 Temperature 98.2 F 03/05/24 11:04 Pulse Rate 89 03/05/24 11:44 Respiratory Rate 18 03/05/24 11:44 Blood Pressure 150/90 H 03/05/24 11:04 Pulse Oximetry 99 03/05/24 11:44 Oxygen Delivery Method Room Air 03/05/24 11:44 MDM - Skin/Abscess/Foreign Bdy MDM Narrative Medical decision making narrative: The patient was started on NSAIDs in addition to local lidocaine he also had only 2 days of Percocet for pain control The patient is in distress due to pain The patient is to follow up with primary care physician in next 2-3 days or to return to the emergency department should any of the signs or symptoms worsen or new symptoms develop. The patient agrees with the following Diagnosis and Treatment plan and the patient will be discharged home. Discharge Plan Discharge Chief Complaint: Skin/Abscess/Foreign Body Clinical Impression: Acute anal fissure Patient Disposition: Home, Self-Care Time of Disposition Decision: 11:20 Condition: Good Prescriptions / Home Meds: New lidocaine [[facility]] 5 % cream 1 applic topical Q4H PRN (Reason: pain) Qty: 30 0RF Rx Instructions: do not exceed 6 doses per 24 hrs diclofenac sodium 75 mg tablet,delayed release (DR/EC) 75 mg PO BID PRN (Reason: pain) Qty: 20 0RF oxycodone-acetaminophen [Percocet] 5-325 mg tablet 1 tab PO Q12H PRN (Reason: pain) 2 Days Qty: 4 0RF No Action divalproex 250 mg tablet extended release 24 hr 250 mg PO DAILY fluoxetine 10 mg capsule 60 mg PO DAILY hydroxyzine HCl 25 mg tablet 50 mg PO BID PRN (Reason: anxiety) olanzapine 10 mg tablet 10 mg PO DAILY divalproex 500 mg tablet extended release 24 hr 500 mg PO BEDTIME lidocaine [RectiCare] 5 % cream 1 applic topical TID PRN (Reason: pain) Qty: 15 0RF meloxicam 15 mg tablet 15 mg PO DAILY PRN (Reason: pain) Qty: 3 0RF Print Language: South Korean Instructions: Anal Fissure (ED) Referrals: MERNA SORIANO [Primary Care Provider] - 1 week Discharge Date/Time: 03/05/24 11:44
== END 2024-03-05 11:44 | disposition home or self-care (01) ==
PROVIDERS: Emergency Provider Emergency Medicine; PCP Nurse Practitioner Family
DX: K60.0 Acute anal fissure (principal); F17.200 Nicotine dependence, unspecified, uncomplicated; Z98.890 Other specified postprocedural states
CPT/HCPCS: 96372; 99284; J1885

== ENCOUNTER 2024-07-15 10:32 | Emergency (ER) | payer OTHER, SELFPAY ==
[2024-07-15 10:49] VITALS: BMI 37.7
--- OUTSIDE RECORDS SUMMARY | 2024-07-15 10:50 | XMS_ITS | CCD ---
Author Organization [facility] Care Team Providers Care Administrative Services Coordinator Name Role Phone ANTONI .MARZENA Attending Unavailable [...] LEIGHANN Primary Care Unavailable DAISY, DR TJ Enamoraod Admitting Unavailabl e DAISY, DR TJ Enamorado [...] Erythromycin; Translations: [ERYTHROMYCIN BASE] Drug Allergy 4 [facility] Repository (4 sources) Penicillins; Translations: [penicillins] Drug allergy (disorder) 4 [facility] (disorder) [facility] Repository (3 sources) Erythromycin; Translations: [erythromycin] Drug Allergy 4 [facility] Medications Current Medications Medication Drug Class(es) Dates [...] Conduction disorders (2 sources) Pre-excitation syndrome; 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] Onset: 08-11-2022 05-29-2022 Chronic Esophageal [...] Onset: 06-25-2022 Other aftercare (1 source) 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; Translations: [OTH [employer]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] Onset: 06-25-2022 Episodic Other [...] source) Pain in scrotum 04-08-2021 Episodic Other nervous system disorders (2 sources) Other acute postprocedural pain; Translations: [Other acute postprocedural pain] Onset: 03-14-2024 Episodic Other nutritional; endocrine; and metabolic disorders [...] Test Name Value Interpretation Reference Range Facility Office Visiton 03-14-2024 Follow-up visit [id number] Chuck Packer 1985 M Date Provider Department Center 03/14/2024 Mayra-URBANO RODRIGUEZ [facility] SURG Second Fl No family history on file Level of Service:86481 [place] POSTOP FOLLOW UP VISIT RELATED TO ORIGINAL PX Reason for Visit and Comments: Post-op [483] - Chuck is here today for post op visit: hemorrhoids, s/p 02/29/24 EUA with hemorrhoidectomy and anal fissure debridement Normal [facility] HISTOLOGY - TISSUE EXAMon LAB AP CASE REPORT Normal [facility] Comment on above: Order Comment: Pre-o p diagnosis: Anal pain [K62.89] Result Comment: Surg ical Pathology Case: [id number] Authorizing Provider: Urbano Rodriguez MD Collected: 02/29/2024 0827 Ordering Location: [facility] Main Operating Room Received: 02/29/2024 1058 Pathologist: Dyana Villasenor MD Specimens: A) - Anus, ANAL FISSURE B) - Anus, INTERNAL AND EXTERNAL HEMORRHOID Performed By: #### L [id number] #### [facility] LAB (BEAKER) [address] [facility] [facility] [place] [address] LAB AP CLINICAL INFORMATION [facility] Comment on above: Order Comment: Pre-o p diagnosis: Anal pain [K62.89] Result Comment: Post -Op Diagnoses K62.89 - Anal pain [ICD-10-CM] Performed By: #### L [id number] #### [facility] LAB (BEAKER) [address] [place] [address] LAB AP GROSS DESCRIPTION A. Anus. [facility] Comment on above: Order Comment: Pre-o p diagnosis: Anal pain [K62.89] Result Comment: Rece ived in formalin labeled Chuck Packer, ANAL FISSURE is a pale cheung ellipse of epithelial lined tissue, 1.3 x 0.5 x 0.6 cm. The epithelial surface is wrinkled and markedly distorted with surgical crush artifact. The non-epithelial surface is inked and the specimen is serially sectioned. The cut surfaces are dark rivers-brown rubbery and uniform. A definitive tract or cavity is not identified. The specimen is entirely submitted in a single cassette. [place], [employer] Worker B. Anus. Received in formalin labeled Chuck Packer, [...] are somewhat congested with focal prominent vessels. Recordist Chief sections are submitted in a single cassette. [place], [employer] Worker Performed By: #### L [id number] #### [facility] (BEAKER) [address] [place] [address] LAB AP MICROSCOPIC DESCRIPTION Microscopic examination performed. [facility] Comment on above: Order Comment: Pre-o p diagnosis: Anal pain [K62.89] Performed By: #### L [id number] #### [facility] (BEAKER) [address] [place] [address] LAB AP REPORT FINAL DIAGNOSIS NARRATIVE [facility] Comment on above: Order Comment: Pre-o p diagnosis: Anal pain [K62.89] Result Comment: A. A nal fissure, debridement: - Hyperplastic squamous mucosa and dilated congested submucosal veins. B. Hemorrhoids, internal and external, hemorrhoidectomy: - Internal and external hemorrhoids with acutely inflamed reactive surface epithelium. Performed By: #### L [id number] #### [facility] (KHRIS) [address] [place] [address] HPon 02-29-2024 HP H&P reviewed. The patient was examined and there are no changes to the H&P. [facility] OPNOTEon 02-29-2024 OPNOTE EXAM UNDER ANESTHESIA,, HEMORRHOIDECTOMY, DEBRIDMENT OF ANAL FISSURE Operative Note Date: 02/29/2024 Location: [facility] OR Name: Chuck Packer, : 1985, Diagnosis Pre-op Diagnosis * Anal pain [K62.89] Post-op Diagnosis * Anal pain [K62.89] Anal fissure External and internal hemorrhoid Procedures HEMORRHOIDECTOMY, DEBRIDMENT OF ANAL FISSURE EXAM UNDER ANESTHESIA, 58[address] - [place] ANRCT XM SURG REQ ANES GENERAL SPI/EDRL [...] EXTERNAL HEMORRHOID Comment: PLACED IN FORMALIN Staff: Trial Mgr: Shannan Guy RN Scrub Person: Dianelys Watson [facility] [place] Scrub: Minna Mcclendon RN Indications: Chuck [...] - hemodynamically stable. Condition: stable Urbano Rodriguez [facility] POCT GLUCOSE METER UNSOLICIT ED RESULTSon 02-29-2024 Glucose [Mass/Vol] 134 mg/dL High 70-105 [facility] Comment on above: Order Comment: Waive d Testing in the ED is performed under the ED CLIA certificate #[id number]. Result Comment: [email or web address] Performed By: #### L [id number] #### [facility] LAB (BEAKER) [address] [place] [address] Consulton 02-23-2024 Consult [id number] Chuck Packer 1985 M Date Provider Department Center 02/23/2024 Mayra-URBANO RODRIGUEZ [facility] SURG Second Fl No family history on file Level of Service:18935 [place] OFFICE/OUTPATIENT NEW LOW MDM 30 MINUTES Reason for Visit and Comments: Consult [484] - Chuck is here today for consult: Rectal pain and Bleeding Normal [facility] HPon 02-23-2024 HP Subjective Patient ID: Chuck [...] 36 hour(s)). No follow-ups on file. Normal [facility] General Surgery Office/Clini c Noteon 12-26-2023 General [...] Rectal bleeding Rectal or anal pain Smoker Xtrio-Adlvastbd-Whhgs syndrome Historical Atrial fibrillation Epididymitis Nocturia Scrotal [...] inactivated - Not Given Patient Refuses Normal [facility] Comment on above: Result Comment: Elec [...] with mild panic attacks Rectal bleeding Smoker Azyce-Mxhgzjjqh-Buddl syndrome Historical - Any problem that you are no longer receiving treatment for. Atrial fibrillation Epididymitis Nocturia Scrotal pain Patient Survey You may receive a survey via text or e-mail asking about your office visit. Please share your experience with us by completing your survey. We appreciate your feedback and thank you for choosing us for your care. Normal [facility] CBC AUTO DIFFon 08-09-2022 BASO # 0.0 103/ul Normal 0.0-0.1 [facility] Comment on above: Performed By: #### P TT, PT #### [facility] [address] [place], [place] [address] Dr. Oh Trotter Basophils/100 WBC (Bld) 0.2 % Normal 0.2-2.0 [facility] Comment on above: Performed By: #### P TT, PT #### [facility] [address] [place], [place] [address] Dr. Oh Trotter EO # 0.0 103/ul Normal 0.0-0.7 [facility] Comment on above: Performed By: #### P TT, PT #### [facility] [address] [place] [address] Dr. Oh Trotter Eosinophils/100 WBC (Bld) 0.6 % Critically low 0.9-7.0 [facility] Comment on above: Performed By: #### P TT, PT #### [facility] [address] [place] [address] Dr. Oh Trotter Erythrocyte distribution width (RBC) [Ratio] 12.2 % Normal 11.0-15.0 [facility] Comment on above: Performed By: #### P TT, PT #### [facility] [address] [place] [address] Dr. Oh Trotter Hematocrit (Bld) [Volume fraction] 44.1 % Normal 42.0-54.0 [facility] Comment on above: Performed By: #### P TT, PT #### [facility] [address] [place] [address] Dr. Oh Trotter Hemoglobin (Bld) [Mass/Vol] 15.8 g/dL Normal 14.0-18.0 [facility] Comment on above: Performed By: #### P TT, PT #### [facility] [address] [place] [address] Dr. Oh Trotter IG # 0.02 10e3/ul Normal 0.00-0.03 [facility] Comment on above: Performed By: #### P TT, PT #### [facility] [address] [place] [address] Dr. Oh Trotter IG % 0.3 % Normal 0.0-0.5 [facility] Comment on above: Performed By: #### P TT, PT #### [facility] [address] [place] [address] Dr. Oh Trotter LYMPH # 1.9 103/ul Normal 1.2-3.8 [facility] Comment on above: Performed By: #### P TT, PT #### [facility] [address] [place] [address] Dr. Oh Trotter Lymphocytes/100 WBC (Bld) 29.7 % Normal 20.5-60.0 [facility] Comment on above: Performed By: #### P TT, PT #### [facility] [address] [place] [address] Dr. Oh Trotter MANUAL DIFF REQ NO Normal [facility] Comment on above: Performed By: #### P TT, PT #### [facility] [address] [place] [address] Dr. Oh Trotter MCH (RBC) [Entitic mass] 29.8 pg Normal 25.9-34.0 [facility] Comment on above: Performed By: #### P TT, PT #### [facility] [address] [place] [address] Dr. Oh Trotter MCHC (RBC) [Mass/Vol] 35.8 g/dL Critically high 29.9-35.2 [facility] Comment on above: Performed By: #### P TT, PT #### [facility] [address] [place] [address] Dr. Oh Trotter MCV (RBC) [Entitic vol] 83.2 fL Normal 80.0-94.0 [facility] Comment on above: Performed By: #### P TT, PT #### [facility] [address] [place] [address] Dr. Oh Trotter MONO # 0.6 103/ul Normal 0.3-0.8 [facility] Comment on above: Performed By: #### P TT, PT #### [facility] [address] [place] [address] Dr. Oh Trotter Monocytes/100 WBC (Bld) 8.6 % Normal 1.7-12.0 [facility] Comment on above: Performed By: #### P TT, PT #### [facility] [address] [place] [address] Dr. Oh Trotter NEUT # 3.9 103/ul Normal 1.4-6.5 [facility] Comment on above: Performed By: #### P TT, PT #### [facility] [address] [place] [address] Dr. Oh Trotter Neutrophils/100 WBC (Bld) 60.6 % Normal 43.0-75.0 [facility] Comment on above: Performed By: #### P TT, PT #### [facility] [address] [place] [address] Dr. Oh Trotter Platelet mean volume (Bld) [Entitic vol] 9.5 fL Normal 9.5-13.5 [facility] Comment on above: Performed By: #### P TT, PT #### [facility] [address] [place] [address] Dr. Oh Trotter PLT 187 103/ul Normal 150-450 [facility] Comment on above: Performed By: #### P TT, PT #### [facility] [address] [place] [address] Dr. Oh Trotter RBC 5.30 106/ul Normal 4.70-6.10 [facility] Comment on above: Performed By: #### P TT, PT #### [facility] [address] [place] [address] Dr. Oh Trotter WBC 6.4 103/ul Normal 4.0-11.0 [facility] Comment on above: Performed By: #### P TT, PT #### [facility] [address] [place] [address] Dr. Oh Trotter PROF 14(COMP METB)on 023 Albumin [Mass/Vol] 3.5 g/dL Normal 3.4-5.0 [facility] Comment on above: Performed By: #### L IPA, CMP, HSTROPN #### [facility] [address] [place] [address] Dr. Oh Trotter Albumin/Globulin [Mass ratio] 0.7 {ratio} Normal [facility] Comment on above: Performed By: #### L IPA, CMP, HSTROPN #### [facility] [address] [place] [address] Dr. Oh Trotter ALP [Catalytic activity/Vol] 85 U/L Normal 46-116 [facility] Comment on above: Performed By: #### L IPA, CMP, HSTROPN #### [facility] [address] [place] [address] [address] Oh Trotter ALT [Catalytic activity/Vol] 34 U/L Normal 16-63 [facility] Comment on above: Performed By: #### L IPA, CMP, HSTROPN #### [facility] [address] [place] [address] [address] Oh Trotter Anion gap [Moles/Vol] 13.3 mmol/L Normal [facility] Comment on above: Performed By: #### L IPA, CMP, HSTROPN #### [facility] [address] [place] [address] [address] Oh Trotter AST [Catalytic activity/Vol] 18 U/L Normal 15-37 [facility] Comment on above: Performed By: #### L IPA, CMP, HSTROPN #### [facility] [address] [place] [address] Dr. Oh Trotter Bilirubin [Mass/Vol] 0.4 mg/dL Normal 0.2-1.0 [facility] Comment on above: Performed By: #### L IPA, CMP, HSTROPN #### [facility] [address] [place] [address] [address] Oh Trotter Calcium [Mass/Vol] 8.9 mg/dL Normal 8.5-10.1 [facility] Comment on above: Performed By: #### L IPA, CMP, HSTROPN #### [facility] [address] [place] [address] [address] Oh Trotter Chloride [Moles/Vol] 105 mmol/L Normal 98-107 [facility] Comment on above: Performed By: #### L IPA, CMP, HSTROPN #### [facility] [address] [place] [address] [address] Oh Trotter CO2 [Moles/Vol] 24.7 mmol/L Normal 21.0-32.0 [facility] Comment on above: Performed By: #### L IPA, CMP, HSTROPN #### [facility] [address] [place] [address] [address] Oh Trotter Creatinine [Mass/Vol] 0.88 mg/dL Normal 0.70-1.30 [facility] Comment on above: Performed By: #### L IPA, CMP, HSTROPN #### [facility] [address] [place] [address] [address] Oh Trtoter EGFR-AF [place]IZ[place] >60 Normal >=60 [facility] Comment on above: Performed By: #### L IPA, CMP, HSTROPN #### [facility] [address] [place] [address] [address] Oh Trotter EGFR-NON AF [place]IZ[place] >60 Normal >=60 [facility] Comment on above: Performed By: #### L IPA, CMP, HSTROPN #### [facility] [address] [place] [address] [address] Oh Trotter Globulin (S) [Mass/Vol] 4.8 g/dL Normal [facility] Comment on above: Performed By: #### L IPA, CMP, HSTROPN #### [facility] [address] [place] [address] [address] Oh Trotter Glucose [Mass/Vol] 113 mg/dL Critically high 74-106 [facility] Comment on above: Performed By: #### L IPA, CMP, HSTROPN #### [facility] [address] [place] [address] Dr. Oh Trotter Potassium [Moles/Vol] 4.0 mmol/L Normal 3.5-5.1 [facility] Comment on above: Performed By: #### L IPA, CMP, HSTROPN #### [facility] [address] [place] [address] Dr. Oh Trotter Protein [Mass/Vol] 8.3 g/dL Critically high 6.4-8.2 [facility] Comment on above: Performed By: #### L IPA, CMP, HSTROPN #### [facility] [address] [place] [address] [address] Oh Trotter Sodium [Moles/Vol] 139 mmol/L Normal 136-145 [facility] Comment on above: Performed By: #### L IPA, CMP, HSTROPN #### [facility] [address] [place] [address] [address] Oh Trotter Urea nitrogen [Mass/Vol] 15.0 mg/dL Normal 7.0-18.0 [facility] Comment on above: Performed By: #### L IPA, CMP, HSTROPN #### [facility] [address] [place] [address] [address] Oh Trotter Urea nitrogen/Creatinine [Mass ratio] 17.0 mg/mg Normal [facility] Comment on above: Performed By: #### L IPA, CMP, HSTROPN #### [facility] [address] [place] [address] [address] Oh Trotter XR ABD FLAT UP_PA [...] VERA SETHI Date: 2022-07-28 22:14 Normal [facility] CBC AUTO DIFFon 07-28-2022 BASO # 0.0 103/ul Normal 0.0-0.1 [facility] Comment on above: Performed By: #### L IPA, CMP, HSTROPN #### [facility] [address] [place] [address] [address] Oh Trotter Basophils/100 WBC (Bld) 0.2 % Normal 0.2-2.0 [facility] Comment on above: Performed By: #### L IPA, CMP, HSTROPN #### [facility] [address] [place] [address] Dr. Oh Trotter EO # 0.1 103/ul Normal 0.0-0.7 [facility] Comment on above: Performed By: #### L IPA, CMP, HSTROPN #### [facility] [address] [place] [address] Dr. Oh Trotter Eosinophils/100 WBC (Bld) 0.9 % Normal 0.9-7.0 [facility] Comment on above: Performed By: #### L IPA, CMP, HSTROPN #### [facility] [address] [place] [address] Dr. Oh Trotter Erythrocyte distribution width (RBC) [Ratio] 12.4 % Normal 11.0-15.0 [facility] Comment on above: Performed By: #### L IPA, CMP, HSTROPN #### [facility] [address] [place] [address] Dr. Oh Trotter Hematocrit (Bld) [Volume fraction] 44.8 % Normal 42.0-54.0 [facility] Comment on above: Performed By: #### L IPA, CMP, HSTROPN #### [facility] [address] [place] [address] Dr. Oh Trotter Hemoglobin (Bld) [Mass/Vol] 15.7 g/dL Normal 14.0-18.0 [facility] Comment on above: Performed By: #### L IPA, CMP, HSTROPN #### [facility] [address] [place] [address] Dr. Oh Trotter IG # 0.02 10e3/ul Normal 0.00-0.03 [facility] Comment on above: Performed By: #### L IPA, CMP, HSTROPN #### [facility] [address] [place] [address] Dr. Oh Trotter IG % 0.2 % Normal 0.0-0.5 [facility] Comment on above: Performed By: #### L IPA, CMP, HSTROPN #### [facility] [address] [place] [address] Dr. Oh Trotter LYMPH # 3.2 103/ul Normal 1.2-3.8 [facility] Comment on above: Performed By: #### L IPA, CMP, HSTROPN #### [facility] [address] [place] [address] Dr. Oh Trotter Lymphocytes/100 WBC (Bld) 39.2 % Normal 20.5-60.0 [facility] Comment on above: Performed By: #### L IPA, CMP, HSTROPN #### [facility] [address] [place] [address] Dr. Oh Trotter MANUAL DIFF REQ NO Normal [facility] Comment on above: Performed By: #### L IPA, CMP, HSTROPN #### [facility] [address] [place] [address] Dr. Oh Trotter MCH (RBC) [Entitic mass] 29.3 pg Normal 25.9-34.0 [facility] Comment on above: Performed By: #### L IPA, CMP, HSTROPN #### [facility] [address] [place] [address] Dr. Oh Trotter MCHC (RBC) [Mass/Vol] 35.0 g/dL Normal 29.9-35.2 [facility] Comment on above: Performed By: #### L IPA, CMP, HSTROPN #### [facility] [address] [place] [address] Dr. Oh Trotter MCV (RBC) [Entitic vol] 83.7 fL Normal 80.0-94.0 [facility] Comment on above: Performed By: #### L IPA, CMP, HSTROPN #### [facility] [address] [place] [address] Dr. Oh Trotter MONO # 0.6 103/ul Normal 0.3-0.8 [facility] Comment on above: Performed By: #### L IPA, CMP, HSTROPN #### [facility] [address] [place] [address] Dr. Oh Trotter Monocytes/100 WBC (Bld) 7.5 % Normal 1.7-12.0 [facility] Comment on above: Performed By: #### L IPA, CMP, HSTROPN #### [facility] [address] [place] [address] Dr. Oh Trotter NEUT # 4.3 103/ul Normal 1.4-6.5 [facility] Comment on above: Performed By: #### L IPA, CMP, HSTROPN #### [facility] [address] [place] [address] Dr. Oh Trotter Neutrophils/100 WBC (Bld) 52.0 % Normal 43.0-75.0 [facility] Comment on above: Performed By: #### L IPA, CMP, HSTROPN #### [facility] [address] [place] [address] Dr. Oh Trotter Platelet mean volume (Bld) [Entitic vol] 9.8 fL Normal 9.5-13.5 [facility] Comment on above: Performed By: #### L IPA, CMP, HSTROPN #### [facility] [address] [place] [address] Dr. Oh Trotter PLT 210 103/ul Normal 150-450 [facility] Comment on above: Performed By: #### L IPA, CMP, HSTROPN #### [facility] [address] [place] [address] Dr. Oh Trotter RBC 5.35 106/ul Normal 4.70-6.10 [facility] Comment on above: Performed By: #### L IPA, CMP, HSTROPN #### [facility] [address] [place] [address] Dr. Oh Trotter WBC 8.2 103/ul Normal 4.0-11.0 [facility] Comment on above: Performed By: #### L IPA, CMP, HSTROPN #### [facility] [address] [place] [address] Dr. Oh Trotter OCC BLD IMMUNOASSAYon 2022 OCCULT BLOOD Positive Abnormal NEGATIVE [facility] Comment on above: Performed By: #### P TT, PT #### [facility] [address] [place] [address] Dr. Oh Trotter PROF 14(COMP METB)on 023 Albumin [Mass/Vol] 3.9 g/dL Normal 3.4-5.0 [facility] Comment on above: Performed By: #### L IPA, CMP, HSTROPN #### [facility] [address] [place] [address] Dr. Oh Trotter Albumin/Globulin [Mass ratio] 0.9 {ratio} Normal [facility] Comment on above: Performed By: #### L IPA, CMP, HSTROPN #### [facility] [address] [place] [address] Dr. Oh Trotter ALP [Catalytic activity/Vol] 98 U/L Normal 46-116 [facility] Comment on above: Performed By: #### L IPA, CMP, HSTROPN #### [facility] [address] [place] [address] Dr. Oh Trotter ALT [Catalytic activity/Vol] 47 U/L Normal 16-63 [facility] Comment on above: Performed By: #### L IPA, CMP, HSTROPN #### [facility] [address] [place] [address] Dr. Oh Trotter Anion gap [Moles/Vol] 13.8 mmol/L Normal [facility] Comment on above: Performed By: #### L IPA, CMP, HSTROPN #### [facility] [address] [place] [address] Dr. Oh Trotter AST [Catalytic activity/Vol] 18 U/L Normal 15-37 [facility] Comment on above: Performed By: #### L IPA, CMP, HSTROPN #### [facility] [address] [place] [address] Dr. Oh Trotter Bilirubin [Mass/Vol] 0.3 mg/dL Normal 0.2-1.0 [facility] Comment on above: Performed By: #### L IPA, CMP, HSTROPN #### [facility] [address] [place] [address] [address] Oh Trotter Calcium [Mass/Vol] 8.8 mg/dL Normal 8.5-10.1 [facility] Comment on above: Performed By: #### L IPA, CMP, HSTROPN #### [facility] [address] [place] [address] [address] Oh Trotter Chloride [Moles/Vol] 105 mmol/L Normal 98-107 [facility] Comment on above: Performed By: #### L IPA, CMP, HSTROPN #### [facility] [address] [place] [address] [address] Oh Trotter CO2 [Moles/Vol] 25.2 mmol/L Normal 21.0-32.0 [facility] Comment on above: Performed By: #### L IPA, CMP, HSTROPN #### [facility] [address] [place] [address] [address] Oh Trotter Creatinine [Mass/Vol] 1.02 mg/dL Normal 0.70-1.30 [facility] Comment on above: Performed By: #### L IPA, CMP, HSTROPN #### [facility] [address] [place] [address] [address] Oh Trotter EGFR-AF [place]IZ[place] >60 Normal >=60 [facility] [facility] Comment on above: Performed By: #### L IPA, CMP, HSTROPN #### [facility] [address] [address] [address] Oh Trotter EGFR-NON AF [place]IZ[place] >60 Normal >=60 [facility] Comment on above: Performed By: #### L IPA, CMP, HSTROPN #### [facility] [address] [address] [address] Oh Trotter Globulin (S) [Mass/Vol] 4.2 g/dL Normal [facility] Comment on above: Performed By: #### L IPA, CMP, HSTROPN #### [facility] [address] [address] [address] Oh Trotter Glucose [Mass/Vol] 104 mg/dL Normal 74-106 The [facility] Comment on above: Performed By: #### L IPA, CMP, HSTROPN #### [facility] [address] [address] [address] Oh Trotter Potassium [Moles/Vol] 4.0 mmol/L Normal 3.5-5.1 [facility] Comment on above: Performed By: #### L IPA, CMP, HSTROPN #### [facility] [address] [place] [address] Dr. Oh Trotter Protein [Mass/Vol] 8.1 g/dL Normal 6.4-8.2 [facility] Comment on above: Performed By: #### L IPA, CMP, HSTROPN #### [facility] [address] [place] [address] Dr. Oh Trotter Sodium [Moles/Vol] 140 mmol/L Normal 136-145 The [facility] Comment on above: Performed By: #### L IPA, CMP, HSTROPN #### [facility] [address] [place] [address] Dr. Oh Trotter Urea nitrogen [Mass/Vol] 16.0 mg/dL Normal 7.0-18.0 [facility] Comment on above: Performed By: #### L IPA, CMP, HSTROPN #### [facility] [address] [place] [address] Dr. Oh Trotter Urea nitrogen/Creatinine [Mass ratio] 15.7 mg/mg Normal [facility] Comment on above: Performed By: #### L IPA, CMP, HSTROPN #### [facility] [address] [place] [address] Dr. Oh Trotter PROTIMEon 07-28-2022 INR Coag (PPP) [Relative time] {INR} Normal [facility] Comment on above: Performed By: #### P TT, PT #### [facility] [address] [place] [address] Dr. Oh Trotter INR GUIDELINES SEE BELOW Normal [facility] Comment on above: Result Comment: ADITHYA RED INR: 2.0 - 3.0 CONDITIONS NOT LISTED BELOW 2.5 - 3.5 FOR PROSTHETIC HEART VALVE REPLACEMENT 2.5 - 3.5 RECURRENT THROMBOSIS Performed By: #### P TT, PT #### [facility] [address] [address] [address] Oh Trotter PT Coag (PPP) [Time] 9.8 s Normal 9.0-11.6 [facility] Comment on above: Performed By: #### P TT, PT #### [facility] [address] [address] [address] Oh Trotter PTTon 07-28-2022 aPTT Coag (Bld) [Time] 26.6 s Normal 22.3-36.2 [facility] Comment on above: Performed By: #### P TT, PT #### [facility] [address] [place] [address] Dr. Oh Trotter Covid-19 PCR ([facility])on SARS-CoV-2 (COVID-19) RNA SHAE+probe Ql (Unsp spec) Not detected Normal NOT DETECTED [facility] Comment on above: Result Comment: This test is not yet approved or cleared by the [place] FDA. When there are no FDA-approved or cleared tests available, and other criteria are met, FDA can make tests available under an emergency access mechanism called an Emergency Use Authorization (EUA). The EUA for this test is supported by the [place] of Health and Human Service's (HHS's) declaration [...] Performed By: #### P TT, PT #### [facility] [address] [place] [address] Dr. Oh Trotter INFLUENZA A AND B AGon 05-11 INFLUANEGH SEE BELOW Normal [facility] Comment on above: Result Comment: Nega tive for Flu A protein angiten. Infection due to Flu A cannot be ruled out. Flu A angiten in the sample may be below the detection limit of the test. Performed By: #### L IPA, CMP, HSTROPN #### [facility] [address] [place] [address] Dr. Oh Trotter [facility] SEE BELOW Normal [facility] Comment on above: Result Comment: Nega tive for Flu B protein antigen. Infection due to Flu B cannot be ruled out. Flu B antigen in the sample may be below the detection limit of the test. Performed By: #### L IPA, CMP, HSTROPN #### [facility] [address] [place] [address] Dr. Oh Trotter INFLUENZA A AG Negative Normal NEGATIVE SEE COMMENT [facility] Comment on above: Performed By: #### L IPA, CMP, HSTROPN #### [facility] [address] [place] [address] Dr. Oh Trotter INFLUENZA B AG Negative Normal NEGATIVE SEE COMMENT [facility] Comment on above: Performed By: #### L IPA, CMP, HSTROPN #### [facility] [address] [place] [address] Dr. Oh Trotter CBC AUTO DIFFon 03-06-2022 BASO # 0.0 103/ul Normal 0.0-0.1 [facility] Comment on above: Performed By: #### P TT, PT #### [facility] [address] [place] [address] Dr. Oh Trotter Basophils/100 WBC (Bld) 0.2 % Normal 0.2-2.0 [facility] Comment on above: Performed By: #### P TT, PT #### [facility] [address] [place] [address] Dr. Oh Trotter EO # 0.0 103/ul Normal 0.0-0.7 [facility] Comment on above: Performed By: #### P TT, PT #### [facility] [address] [place] [address] Dr. Oh Trotter Eosinophils/100 WBC (Bld) 0.4 % Critically low 0.9-7.0 [facility] Comment on above: Performed By: #### P TT, PT #### [facility] [address] [place] [address] Dr. Oh Trotter Erythrocyte distribution width (RBC) [Ratio] 12.2 % Normal 11.0-15.0 [facility] Comment on above: Performed By: #### P TT, PT #### [facility] [address] [place] [address] Dr. Oh Trotter Hematocrit (Bld) [Volume fraction] 45.7 % Normal 42.0-54.0 [facility] Comment on above: Performed By: #### P TT, PT #### [facility] [address] [place] [address] Dr. Oh Trotter Hemoglobin (Bld) [Mass/Vol] 16.0 g/dL Normal 14.0-18.0 [facility] Comment on above: Performed By: #### P TT, PT #### [facility] [address] [place] [address] Dr. Oh Trotter IG # 0.04 10e3/ul Critically high 0.00-0.03 [facility] Comment on above: Performed By: #### P TT, PT #### [facility] [address] [place] [address] Dr. Oh Trotter IG % 0.4 % Normal 0.0-0.5 [facility] Comment on above: Performed By: #### P TT, PT #### [facility] [address] [place] [address] Dr. Oh Trotter LYMPH # 2.8 103/ul Normal 1.2-3.8 [facility] Comment on above: Performed By: #### P TT, PT #### [facility] [address] [place] [address] Dr. Oh Trotter Lymphocytes/100 WBC (Bld) 29.5 % Normal 20.5-60.0 [facility] Comment on above: Performed By: #### P TT, PT #### [facility] [address] [place] [address] Dr. Oh Trotter MANUAL DIFF REQ NO Normal The [facility] Comment on above: Performed By: #### P TT, PT #### [facility] [address] [place] [address] Dr. Oh Trotter MCH (RBC) [Entitic mass] 29.7 pg Normal 25.9-34.0 [facility] Comment on above: Performed By: #### P TT, PT #### [facility] [address] [place] [address] Dr. Oh Trotter MCHC (RBC) [Mass/Vol] 35.0 g/dL Normal 29.9-35.2 [facility] Comment on above: Performed By: #### P TT, PT #### [facility] [address] [place] [address] Dr. Oh Trotter MCV (RBC) [Entitic vol] 84.8 fL Normal 80.0-94.0 [facility] Comment on above: Performed By: #### P TT, PT #### [facility] [address] [place] [address] Dr. Oh Trotter MONO # 0.5 103/ul Normal 0.3-0.8 [facility] Comment on above: Performed By: #### P TT, PT #### [facility] [address] [place] [address] Dr. Oh Trotter Monocytes/100 WBC (Bld) 5.2 % Normal 1.7-12.0 [facility] Comment on above: Performed By: #### P TT, PT #### [facility] [address] [place] [address] Dr. Oh Trotter NEUT # 6.2 103/ul Normal 1.4-6.5 [facility] Comment on above: Performed By: #### P TT, PT #### [facility] [address] [place] [address] Dr. Oh Trotter Neutrophils/100 WBC (Bld) 64.3 % Normal 43.0-75.0 [facility] Comment on above: Performed By: #### P TT, PT #### [facility] [address] [address] [address] Oh Trotter Platelet mean volume (Bld) [Entitic vol] 9.9 fL Normal 9.5-13.5 [facility] Comment on above: Performed By: #### P TT, PT #### [facility] [address] [address] [address] Oh Trotter PLT 196 103/ul Normal 150-450 [facility] Comment on above: Performed By: #### P TT, PT #### [facility] [address] [address] [address] Oh Trotter RBC 5.39 106/ul Normal 4.70-6.10 [facility] Comment on above: Performed By: #### P TT, PT #### [facility] [address] [place] [address] Dr. Oh Trotter WBC 9.6 103/ul Normal 4.0-11.0 [facility] Comment on above: Performed By: #### P TT, PT #### [facility] [address] [place] [address] Dr. Oh Trotter D-DIMERon 03-06-2022 D-DIMER <0.19 Normal <=0.59 [facility] Comment on above: Performed By: #### P TT, PT #### [facility] [address] [place] [address] Dr. Oh Trotter D-DIMER COMMENTS SEE BELOW Normal [facility] Comment on above: [...] Performed By: #### P TT, PT #### [facility] [address] [place] [address] Dr. Oh Trotter ER URINE PROFILEon 2 Bilirubin Ql (U) Negative Normal NEGATIVE [facility] Comment on above: Performed By: #### Marcelo GLOVER UMICRO #### [facility] [address] [place] [address] Dr. Oh Trotter Clarity (U) CLEAR Normal CLEAR [facility] Comment on above: Performed By: #### Marcelo GLOVER UMICRO #### [facility] [address] [address] [address] Oh Trotter Color (U) LT. YELLOW Normal YELLOW [facility] Comment on above: Performed By: #### Marcelo GLOVER UMICRO #### [facility] [address] [place] [address] Dr. Oh OLIVA A micrscopic examination will be performed if indicated. Normal [facility] Comment on above: Performed By: #### Marcelo GLOVER UMICRO #### [facility] [address] [place] [address] Dr. Oh Trotter Glucose Ql (U) Negative Normal NEGATIVE [facility] Comment on above: Performed By: #### Marcelo GLOVER UMICRO #### [facility] [address] [place] [address] Dr. Oh Trotter Hemoglobin Ql (U) SMALL Abnormal NEGATIVE [facility] Comment on above: Performed By: #### Marcelo GLOVER UMICRO #### [facility] [address] [place] [address] Dr. Oh Trotter Ketones Ql (U) Negative Normal NEGATIVE [facility] Comment on above: Performed By: #### Marcelo GLOVER UMICRO #### [facility] [address] [place] [address] Dr. Oh Trotter LEUKOCYTES Negative Normal NEGATIVE [facility] Comment on above: Performed By: #### Marcelo GLOVER UMICRO #### [facility] [address] [place] [address] Dr. Oh Trotter Nitrite Ql (U) Negative Normal NEGATIVE [facility] Comment on above: Performed By: #### Marcelo GLOVER UMICRO #### [facility] [address] [place] [address] Dr. Oh Trotter pH (U) 6.0 [pH] Normal 5-9 [facility] Comment on above: Performed By: #### OSVALDO STONER #### [facility] [address] [place] [address] Dr. Oh Trotter SPEC GRAVITY 1.025 Normal 1.005-<=1.025 [facility] Comment on above: Performed By: #### OSVALDO STONER #### [facility] [address] [place] [address] Dr. Oh Trotter UA PROTEIN Negative Normal NEGATIVE/ TRACE [facility] Comment on above: Performed By: #### OSVALDO STONER #### [facility] [address] [place] [address] Dr. Oh Trotter UR MICRO IND INDICATED Normal [facility] Comment on above: Performed By: #### OSVALDO STONER #### [facility] [address] [place] [address] Dr. Oh Trotter Urobilinogen Qn (U) 0.2 {Federico'U}/dL Normal 0.2 - 1. 0 [facility] Comment on above: Performed By: #### OSVALDO STONER #### [facility] [address] [place] [address] Dr. Oh Trotter LIPASEon 03-06-2022 Lipase [Catalytic activity/Vol] 125.0 U/L Normal 73.0-393.0 [facility] Comment on above: Performed By: #### L IPA, CMP, HSTROPN #### [facility] [address] [place] [address] Dr. Oh Trotter PROF 14(COMP METB)on 022 Albumin [Mass/Vol] 3.8 g/dL Normal 3.4-5.0 [facility] Comment on above: Performed By: #### L IPA, CMP, HSTROPN #### [facility] [address] [place] [address] Dr. Oh Trotter Albumin/Globulin [Mass ratio] 0.8 {ratio} Normal [facility] Comment on above: Performed By: #### L IPA, CMP, HSTROPN #### [facility] [address] [address] [address] Oh Trotter ALP [Catalytic activity/Vol] 77 U/L Normal 46-116 [facility] Comment on above: Performed By: #### L IPA, CMP, HSTROPN #### [facility] [address] [place] [address] Dr. Oh Trotter ALT [Catalytic activity/Vol] 39 U/L Normal 16-63 [facility] Comment on above: Performed By: #### L IPA, CMP, HSTROPN #### [facility] [address] [place] [address] Dr. Oh Trtoter Anion gap [Moles/Vol] 9.3 mmol/L Normal [facility] Comment on above: Performed By: #### L IPA, CMP, HSTROPN #### [facility] [address] [place] [address] Dr. Oh Trotter AST [Catalytic activity/Vol] 21 U/L Normal 15-37 [facility] Comment on above: Performed By: #### L IPA, CMP, HSTROPN #### [facility] [address] [place] [address] Dr. Oh Trotter Bilirubin [Mass/Vol] 0.4 mg/dL Normal 0.2-1.0 [facility] Comment on above: Performed By: #### L IPA, CMP, HSTROPN #### [facility] [address] [place] [address] Dr. Oh Trotter Calcium [Mass/Vol] 9.2 mg/dL Normal 8.5-10.1 [facility] Comment on above: Performed By: #### L IPA, CMP, HSTROPN #### [facility] [address] [place] [address] Dr. Oh Trotter Chloride [Moles/Vol] 102 mmol/L Normal 98-107 [facility] Comment on above: Performed By: #### L IPA, CMP, HSTROPN #### [facility] [address] [address] [address] Oh Trotter CO2 [Moles/Vol] 26.6 mmol/L Normal 21.0-32.0 [facility] Comment on above: Performed By: #### L IPA, CMP, HSTROPN #### [facility] [address] [address] [address] Oh Trotter Creatinine [Mass/Vol] 1.08 mg/dL Normal 0.70-1.30 [facility] Comment on above: Performed By: #### L IPA, CMP, HSTROPN #### [facility] [address] [address] [address] Oh Trotter EGFR-AF [place] >60 Normal >=60 [facility] Comment on above: Performed By: #### L IPA, CMP, HSTROPN #### [facility] [address] [place] [address] Dr. Oh Trotter EGFR-NON AF [place]IZ[place] >60 Normal >=60 [facility] Comment on above: Performed By: #### L IPA, CMP, HSTROPN #### [facility] [address] [address] [address] Oh Trotter Globulin (S) [Mass/Vol] 4.7 g/dL Normal [facility] Comment on above: Performed By: #### L IPA, CMP, HSTROPN #### [facility] [address] [place] [address] Dr. Oh Trotter Glucose [Mass/Vol] 103 mg/dL Normal 74-106 [facility] Comment on above: Performed By: #### L IPA, CMP, HSTROPN #### [facility] [address] [address] [address] Oh Trotter Potassium [Moles/Vol] 3.9 mmol/L Normal 3.5-5.1 [facility] Comment on above: Performed By: #### L IPA, CMP, HSTROPN #### [facility] [address] [address] [address] Oh Trotter Protein [Mass/Vol] 8.5 g/dL Critically high 6.4-8.2 [facility] Comment on above: Performed By: #### L IPA, CMP, HSTROPN #### [facility] [address] [address] [address] Oh Trotter Sodium [Moles/Vol] 134 mmol/L Critically low 136-145 [facility] Comment on above: Performed By: #### L IPA, CMP, HSTROPN #### [facility] [address] [place] [address] Dr. Oh Trotter Urea nitrogen [Mass/Vol] 20.0 mg/dL Critically high 7.0-18.0 [facility] Comment on above: Performed By: #### L IPA, CMP, HSTROPN #### [facility] [address] [place] [address] Dr. Oh Trotter Urea nitrogen/Creatinine [Mass ratio] 18.5 mg/mg Normal [facility] Comment on above: Performed By: #### L IPA, CMP, HSTROPN #### [facility] [address] [place] [address] Dr. Oh Trotter PROTIMEon 03-06-2022 INR Coag (PPP) [Relative time] 1.00 {INR} Normal [facility] Comment on above: Performed By: #### P TT, PT #### [facility] [address] [place] [address] Dr. Oh Trotter INR GUIDELINES SEE BELOW Normal [facility] Comment on above: Result Comment: ADITHYA RED INR: 2.0 - 3.0 CONDITIONS NOT LISTED BELOW 2.5 - 3.5 FOR PROSTHETIC HEART VALVE REPLACEMENT 2.5 - 3.5 RECURRENT THROMBOSIS Performed By: #### P TT, PT #### [facility] [address] [place] [address] Dr. Oh Trotter PT Coag (PPP) [Time] 10.8 s Normal 9.0-11.6 [facility] Comment on above: Performed By: #### P TT, PT #### [facility] [address] [place] [address] Dr. Oh Trotter PTTon 03-06-2022 aPTT Coag (Bld) [Time] 27.9 s Normal 22.3-36.2 [facility] Comment on above: Performed By: #### P TT, PT #### [facility] [address] [place] [address] Dr. Oh Trotter TROPONIN, HIGH SENSITIVITYon 03-06-2022 HSTROP 7.9 pg/mL Normal 4.0-76.1 [facility] Comment on above: Result Comment: CUT- OFF POINTS HAVE BEEN ESTABLISHED BASED ON THE FOURTH UNIVERSAL DEFINITIONS OF MYOCARDIAL INFARCTION. THE UPPER REFERENCE LIMIT (URL) OF TROPONIN, DEFINED THE 99TH PERCENTILE OF cTnI DISTRIBUTION IN A REFERENCE POPULATION, HAS BEEN CONFIRMED THE DECISION THRESHOLD FOR [place] DIAGNOSIS. Performed By: #### L IPA, CMP, HSTROPN #### [facility] [address] [place] [address] Dr. Oh Trotter URINE MICROSCOPIC ONLYon BACTERIA NONE SEEN Normal NONE SEEN [facility] Comment on above: Performed By: #### Marcelo GLOVER UMICRO #### [facility] [address] [place] [address] Dr. Oh Trotter Bacteria identified Cx Nom (U) NOT INDICATED Normal [facility] Comment on above: Performed By: #### Marcelo GLOVER UMICRO #### [facility] [address] [place] [address] Dr. Oh Trotter CAST NONE SEEN Normal NONE SEEN [facility] Comment on above: Performed By: #### Marcelo GLOVER UMICRO #### [facility] [address] [place] [address] Dr. Oh Trotter Crystals LM Nom (Urine sed) NONE SEEN Normal NONE SEEN [facility] Comment on above: Performed By: #### E RUR UMICRO #### [facility] [address] [place] [address] Dr. Oh Trotter Epithelial cells LM Ql (Urine sed) FEW Abnormal NONE SEEN /RARE [facility] Comment on above: Performed By: #### E RUR, UMICRO #### [facility] [address] [place] [address] Dr. Oh Trotter MUCOUS MODERATE Abnormal NONE SEEN [facility] Comment on above: Performed By: #### E RURAUBRIEICRO #### [facility] [address] [address] [address] Oh Trotter RBC 0-2 Normal 0-2 [facility] Comment on above: Performed By: #### E MATHIEU GLOVERRO #### [facility] [address] [address] [address] Oh Trotter WBC NONE SEEN Normal NONE SEEN [facility] Comment on above: Performed By: #### E ADALBERTO UMICRO #### [facility] [address] [address] [address] Oh Trotter XR ABD FLAT UP_PA [...] LUCY JEWELL Date: 2022-03-06 15:55 Normal [facility] XR CSPINE 2_3 VIEWSon 2021 XR [...] by: LUCY JEWELL Date: 2022-03-06 15:54 Normal [facility] CBC AUTO DIFFon 11-02-2021 BASO # 0.0 103/ul Normal 0.0-0.1 [facility] Comment on above: Performed By: #### L IPA, CMP, HSTROPN #### [facility] [address] [place] [address] Dr. Oh Trotter Basophils/100 WBC (Bld) 0.2 % Normal 0.2-2.0 [facility] Comment on above: Performed By: #### L IPA, CMP, HSTROPN #### [facility] [address] [place] [address] Dr. Oh Trotter EO # 0.1 103/ul Normal 0.0-0.7 [facility] Comment on above: Performed By: #### L IPA, CMP, HSTROPN #### [facility] [address] [place] [address] Dr. Oh Trotter Eosinophils/100 WBC (Bld) 1.0 % Normal 0.9-7.0 [facility] Comment on above: Performed By: #### L IPA, CMP, HSTROPN #### [facility] [address] [place] [address] Dr. Oh Trotter Erythrocyte distribution width (RBC) [Ratio] 13.0 % Normal 11.0-15.0 [facility] Comment on above: Performed By: #### L IPA, CMP, HSTROPN #### [facility] [address] [place] [address] Dr. Oh Trotter Hematocrit (Bld) [Volume fraction] 46.6 % Normal 42.0-54.0 [facility] Comment on above: Performed By: #### L IPA, CMP, HSTROPN #### [facility] [address] [place] [address] Dr. Oh Trotter Hemoglobin (Bld) [Mass/Vol] 15.8 g/dL Normal 14.0-18.0 [facility] Comment on above: Performed By: #### L IPA, CMP, HSTROPN #### [facility] [address] [place] [address] Dr. Oh Trotter IG # 0.02 10e3/ul Normal 0.00-0.03 [facility] Comment on above: Performed By: #### L IPA, CMP, HSTROPN #### [facility] [address] [address] [address] Oh Trotter IG % 0.2 % Normal 0.0-0.5 [facility] Comment on above: Performed By: #### L IPA, CMP, HSTROPN #### [facility] [address] [address] [address] Oh Trotter LYMPH # 1.6 103/ul Normal 1.2-3.8 [facility] Comment on above: Performed By: #### L IPA, CMP, HSTROPN #### [facility] [address] [place] [address] Dr. Oh Trotter Lymphocytes/100 WBC (Bld) 15.3 % Critically low 20.5-60.0 [facility] Comment on above: Performed By: #### L IPA, CMP, HSTROPN #### [facility] [address] [place] [address] Dr. Oh Trotter MANUAL DIFF REQ NO Normal [facility] Comment on above: Performed By: #### L IPA, CMP, HSTROPN #### [facility] [address] [place] [address] Dr. Oh Trotter MCH (RBC) [Entitic mass] 30.1 pg Normal 25.9-34.0 [facility] Comment on above: Performed By: #### L IPA, CMP, HSTROPN #### [facility] [address] [place] [address] Dr. Oh Trotter MCHC (RBC) [Mass/Vol] 33.9 g/dL Normal 29.9-35.2 [facility] Comment on above: Performed By: #### L IPA, CMP, HSTROPN #### [facility] [facility] [address] [place] [address] Dr. Oh Trotter MCV (RBC) [Entitic vol] 88.8 fL Normal 80.0-94.0 [facility] Comment on above: Performed By: #### L IPA, CMP, HSTROPN #### [facility] [address] [place] [address] Dr. Oh Trotter MONO # 0.7 103/ul Normal 0.3-0.8 [facility] Comment on above: Performed By: #### L IPA, CMP, HSTROPN #### [facility] [address] [place] [address] Dr. Oh Trotter Monocytes/100 WBC (Bld) 6.8 % Normal 1.7-12.0 [facility] Comment on above: Performed By: #### L IPA, CMP, HSTROPN #### [facility] [address] [address] [address] Oh Trotter NEUT # 7.9 103/ul Critically high 1.4-6.5 [facility] Comment on above: Performed By: #### L IPA, CMP, HSTROPN #### [facility] [address] [place] [address] Dr. Oh Trotter Neutrophils/100 WBC (Bld) 76.5 % Critically high 43.0-75.0 [facility] Comment on above: Performed By: #### L IPA, CMP, HSTROPN #### [facility] [address] [place] [address] Dr. Oh Trotter Platelet mean volume (Bld) [Entitic vol] 9.5 fL Normal 9.5-13.5 [facility] Comment on above: Performed By: #### L IPA, CMP, HSTROPN #### [facility] [address] [place] [address] Dr. Oh Trotter PLT 191 103/ul Normal 150-450 [facility] Comment on above: Performed By: #### L IPA, CMP, HSTROPN #### [facility] [address] [place] [address] Dr. Oh Trotter RBC 5.25 106/ul Normal 4.70-6.10 [facility] Comment on above: Performed By: #### L IPA, CMP, HSTROPN #### [facility] [address] [place] [address] Dr. Oh Trotter WBC 10.4 103/ul Normal 4.0-11.0 [facility] Comment on above: Performed By: #### L IPA, CMP, HSTROPN #### [facility] [address] [place] [address] Dr. Oh Trotter PROF CHEM 8 (BAS METB)on Anion gap [Moles/Vol] 9.7 mmol/L Normal [facility] Comment on above: Performed By: #### L IPA, CMP, HSTROPN #### [facility] [address] [address] [address] Oh Trotter Calcium [Mass/Vol] 8.9 mg/dL Normal 8.5-10.1 [facility] Comment on above: Performed By: #### L IPA, CMP, HSTROPN #### [facility] [address] [place] [address] Dr. Oh Trotter Chloride [Moles/Vol] 102 mmol/L Normal 98-107 [facility] Comment on above: Performed By: #### L IPA, CMP, HSTROPN #### [facility] [address] [place] [address] Dr. Oh Trotter CO2 [Moles/Vol] 29.1 mmol/L Normal 21.0-32.0 [facility] Comment on above: Performed By: #### L IPA, CMP, HSTROPN #### [facility] [address] [place] [address] Dr. Oh Trotter Creatinine [Mass/Vol] 1.10 mg/dL Normal 0.70-1.30 [facility] Comment on above: Performed By: #### L IPA, CMP, HSTROPN #### [facility] [address] [place] [address] Dr. Oh Trotter EGFR-AF [place] >60 Normal >=60 [facility] Comment on above: Performed By: #### L IPA, CMP, HSTROPN #### [facility] [address] [place] [address] Dr. Oh Trotter EGFR-NON AF [place] >60 Normal >=60 [facility] Comment on above: Performed By: #### L IPA, CMP, HSTROPN #### [facility] [address] [place] [address] Dr. Oh Trotter Glucose [Mass/Vol] 114 mg/dL Critically high 74-106 [facility] Comment on above: Performed By: #### L IPA, CMP, HSTROPN #### [facility] [address] [address] [address] Oh Trotter Potassium [Moles/Vol] 3.8 mmol/L Normal 3.5-5.1 [facility] Comment on above: Performed By: #### L IPA, CMP, HSTROPN #### [facility] [address] [address] [address] Oh Trotter Sodium [Moles/Vol] 137 mmol/L Normal 136-145 [facility] Comment on above: Performed By: #### L IPA, CMP, HSTROPN #### [facility] [address] [address] [address] Oh Trotter Urea nitrogen [Mass/Vol] 10.0 mg/dL Normal 7.0-18.0 [facility] Comment on above: Performed By: #### L IPA, CMP, HSTROPN #### [facility] [address] [address] [address] Oh Trotter Urea nitrogen/Creatinine [Mass ratio] 9.1 mg/mg Normal [facility] Comment on above: Performed By: #### L IPA, CMP, HSTROPN #### [facility] [address] [address] [address] Oh Trotter CARDIAC SUKUMAR ADMITon 022 CK [Catalytic activity/Vol] 97 U/L Normal 39-308 [facility] Comment on above: Performed By: #### L IPA, CMP, HSTROPN #### [facility] [address] [address] [address] Oh Trotter CK.MB [Mass/Vol] 0.75 ng/mL Normal <=3.60 [facility] Comment on above: Performed By: #### L IPA, CMP, HSTROPN #### [facility] [address] [address] [address] Oh Tortter HSTROP 4.4 pg/mL Normal 4.0-76.1 [facility] Comment on above: Result Comment: CUT- OFF POINTS HAVE BEEN ESTABLISHED BASED ON THE FOURTH UNIVERSAL DEFINITIONS OF MYOCARDIAL INFARCTION. THE UPPER REFERENCE LIMIT (URL) OF TROPONIN, DEFINED THE 99TH PERCENTILE OF cTnI DISTRIBUTION IN A REFERENCE POPULATION, HAS BEEN CONFIRMED THE DECISION THRESHOLD FOR OK DIAGNOSIS. Performed By: #### L IPA, CMP, HSTROPN #### [facility] [address] [place] [address] Dr. Oh Trotter CARON 54 ng/mL Normal 16-96 [facility] Comment on above: Performed By: #### L IPA, CMP, HSTROPN #### [facility] [address] [place] [address] Dr. Oh Trotter CBC AUTO DIFFon 10-16-2021 BASO # 0.0 103/ul Normal 0.0-0.1 [facility] Comment on above: Performed By: #### P TT, PT #### [facility] [address] [place] [address] Dr. Oh Trotter Basophils/100 WBC (Bld) 0.1 % Critically low 0.2-2.0 [facility] Comment on above: Performed By: #### P TT, PT #### [facility] [address] [place] [address] Dr. Oh Trotter EO # 0.0 103/ul Normal 0.0-0.7 [facility] Comment on above: Performed By: #### P TT, PT #### [facility] [address] [place] [address] Dr. Oh Trotter Eosinophils/100 WBC (Bld) 0.3 % Critically low 0.9-7.0 [facility] Comment on above: Performed By: #### P TT, PT #### [facility] [address] [place] [address] Dr. Oh Trotter Erythrocyte distribution width (RBC) [Ratio] 12.5 % Normal 11.0-15.0 [facility] Comment on above: Performed By: #### P TT, PT #### [facility] [address] [place] [address] Dr. Oh Trotter Hematocrit (Bld) [Volume fraction] 47.1 % Normal 42.0-54.0 [facility] Comment on above: Performed By: #### P TT, PT #### [facility] [address] [place] [address] Dr. Oh Trotter Hemoglobin (Bld) [Mass/Vol] 16.7 g/dL Normal 14.0-18.0 [facility] Comment on above: Performed By: #### P TT, PT #### [facility] [address] [place] [address] Dr. Oh Trotter IG # 0.02 10e3/ul Normal 0.00-0.03 [facility] Comment on above: Performed By: #### P TT, PT #### [facility] [address] [place] [address] Dr. Oh Trotter IG % 0.3 % Normal 0.0-0.5 [facility] Comment on above: Performed By: #### P TT, PT #### [facility] [address] [place] [address] Dr. Oh Trotter LYMPH # 2.3 103/ul Normal 1.2-3.8 [facility] Comment on above: Performed By: #### P TT, PT #### [facility] [address] [place] [address] Dr. Oh Trotter Lymphocytes/100 WBC (Bld) 31.7 % Normal 20.5-60.0 [facility] Comment on above: Performed By: #### P TT, PT #### [facility] [address] [place] [address] Dr. Oh Trotter MANUAL DIFF REQ NO Normal [facility] Comment on above: Performed By: #### P TT, PT #### [facility] [address] [place] [address] Dr. Oh Trotter MCH (RBC) [Entitic mass] 29.9 pg Normal 25.9-34.0 [facility] Comment on above: Performed By: #### P TT, PT #### [facility] [address] [place] [address] Dr. Oh Trotter MCHC (RBC) [Mass/Vol] 35.5 g/dL Critically high 29.9-35.2 [facility] Comment on above: Performed By: #### P TT, PT #### [facility] [address] [address] [address] Oh Trotter MCV (RBC) [Entitic vol] 84.4 fL Normal 80.0-94.0 [facility] Comment on above: Performed By: #### P TT, PT #### [facility] [address] [address] [address] Oh Trotter MONO # 0.4 103/ul Normal 0.3-0.8 [facility] Comment on above: Performed By: #### P TT, PT #### [facility] [address] [place] [address] Dr. Oh Trotter Monocytes/100 WBC (Bld) 4.9 % Normal 1.7-12.0 [facility] Comment on above: Performed By: #### P TT, PT #### [facility] [address] [place] [address] Dr. Oh Trotter NEUT # 4.6 103/ul Normal 1.4-6.5 [facility] Comment on above: Performed By: #### P TT, PT #### [facility] [address] [place] [address] Dr. Oh Trotter Neutrophils/100 WBC (Bld) 62.7 % Normal 43.0-75.0 [facility] Comment on above: Performed By: #### P TT, PT #### [facility] [address] [address] [address] Oh Trotter Platelet mean volume (Bld) [Entitic vol] 10.3 fL Normal 9.5-13.5 [facility] Comment on above: Performed By: #### P TT, PT #### [facility] [address] [place] [address] Dr. Oh Trotter PLT 225 103/ul Normal 150-450 [facility] Comment on above: Performed By: #### P TT, PT #### [facility] [address] [place] [address] Dr. Oh Trotter RBC 5.58 106/ul Normal 4.70-6.10 [facility] Comment on above: Performed By: #### P TT, PT #### [facility] [address] [place] [address] Dr. Oh Trotter WBC 7.3 103/ul Normal 4.0-11.0 [facility] Comment on above: Performed By: #### P TT, PT #### [facility] [address] [place] [address] Dr. Oh Trotter D-DIMERon 10-16-2021 D-DIMER <0.19 Normal <=0.59 [facility] Comment on above: Performed By: #### P TT, PT #### [facility] [address] [place] [address] Dr. Oh Trotter D-DIMER COMMENTS SEE BELOW Normal [facility] Comment on above: [...] Performed By: #### P TT, PT #### [facility] [address] [place] [address] Dr. Oh Trotter LIPASEon 10-16-2021 Lipase [Catalytic activity/Vol] 127.0 U/L Normal 73.0-393.0 [facility] Comment on above: Performed By: #### L IPA, CMP, HSTROPN #### [facility] [address] [place] [address] Dr. Oh Trotter PROF 14(COMP METB)on 022 Albumin [Mass/Vol] 4.0 g/dL Normal 3.4-5.0 [facility] Comment on above: Performed By: #### L IPA, CMP, HSTROPN #### [facility] [address] [address] [address] Oh Trotter Albumin/Globulin [Mass ratio] 0.9 {ratio} Normal [facility] Comment on above: Performed By: #### L IPA, CMP, HSTROPN #### [facility] [address] [address] [address] Oh Trotter ALP [Catalytic activity/Vol] 73 U/L Normal 46-116 [facility] Comment on above: Performed By: #### L IPA, CMP, HSTROPN #### [facility] [address] [address] [address] Oh Trotter ALT [Catalytic activity/Vol] 45 U/L Normal 16-63 [facility] Comment on above: Performed By: #### L IPA, CMP, HSTROPN #### [facility] [address] [place] [address] Dr. Oh Trotter Anion gap [Moles/Vol] 15.4 mmol/L Normal [facility] Comment on above: Performed By: #### L IPA, CMP, HSTROPN #### [facility] [address] [address] [address] Oh Trotter AST [Catalytic activity/Vol] 25 U/L Normal 15-37 [facility] Comment on above: Performed By: #### L IPA, CMP, HSTROPN #### [facility] [address] [address] [address] Oh Trotter Bilirubin [Mass/Vol] 0.9 mg/dL Normal 0.2-1.0 [facility] Comment on above: Performed By: #### L IPA, CMP, HSTROPN #### [facility] [address] [address] [address] Oh Trotter Calcium [Mass/Vol] 9.3 mg/dL Normal 8.5-10.1 [facility] Comment on above: Performed By: #### L IPA, CMP, HSTROPN #### [facility] [address] [address] [address] Oh Trotter Chloride [Moles/Vol] 103 mmol/L Normal 98-107 [facility] Comment on above: Performed By: #### L IPA, CMP, HSTROPN #### [facility] [address] [address] [address] hO Trotter CO2 [Moles/Vol] 20.4 mmol/L Critically low 21.0-32.0 [facility] Comment on above: Performed By: #### L IPA, CMP, HSTROPN #### [facility] [address] [address] [address] Oh Trotter Creatinine [Mass/Vol] 1.17 mg/dL Normal 0.70-1.30 [facility] Comment on above: Performed By: #### L IPA, CMP, HSTROPN #### [facility] [address] [place] [address] Dr. Oh Trotter EGFR-AF [place] >60 Normal >=60 [facility] Comment on above: Performed By: #### L IPA, CMP, HSTROPN #### [facility] [address] [place] [address] Dr. Oh Trotter EGFR-NON AF [place] >60 Normal >=60 [facility] Comment on above: Performed By: #### L IPA, CMP, HSTROPN #### [facility] [address] [place] [address] Dr. Oh Trotter Globulin (S) [Mass/Vol] 4.6 g/dL Normal [facility] Comment on above: Performed By: #### L IPA, CMP, HSTROPN #### [facility] [address] [place] [address] Dr. Oh Trotter Glucose [Mass/Vol] 127 mg/dL Critically high 74-106 [facility] Comment on above: Performed By: #### L IPA, CMP, HSTROPN #### [facility] [address] [place] [address] Dr. Oh Trotter Potassium [Moles/Vol] 3.8 mmol/L Normal 3.5-5.1 [facility] Comment on above: Performed By: #### L IPA, CMP, HSTROPN #### [facility] [address] [address] [address] Oh Trotter Protein [Mass/Vol] 8.6 g/dL Critically high 6.4-8.2 [facility] Comment on above: Performed By: #### L IPA, CMP, HSTROPN #### [facility] [address] [place] [address] Dr. Oh Trotter Sodium [Moles/Vol] 135 mmol/L Critically low 136-145 [facility] Comment on above: Performed By: #### L IPA, CMP, HSTROPN #### [facility] [address] [place] [address] Dr. Oh Trotter Urea nitrogen [Mass/Vol] 12.0 mg/dL Normal 7.0-18.0 [facility] Comment on above: Performed By: #### L IPA, CMP, HSTROPN #### [facility] [address] [place] [address] Dr. Oh Trotter Urea nitrogen/Creatinine [Mass ratio] 10.3 mg/mg Normal [facility] Comment on above: Performed By: #### L IPA, CMP, HSTROPN #### [facility] [address] [place] [address] Dr. Oh Trotter XR CHEST 1 Von [...] GALDINO ARROYO Date: 2021-10-16 13:09 Normal [facility] BNPon 09-15-2021 Natriuretic peptide B (Bld) [Mass/Vol] 9.0 pg/mL Normal <=450.0 [facility] Comment on above: Performed By: #### H STROPN, TSH, BNP, CMP #### [facility] [address] [place] [address] Dr. Oh Trotter CBC AUTO DIFFon 09-15-2021 BASO # 0.0 103/ul Normal 0.0-0.1 [facility] Comment on above: Performed By: #### L IPA, CMP, HSTROPN #### [facility] [address] [place] [address] Dr. Oh Trotter Basophils/100 WBC (Bld) 0.1 % Critically low 0.2-2.0 [facility] Comment on above: Performed By: #### L IPA, CMP, HSTROPN #### [facility] [address] [place] [address] Dr. Oh Trotter EO # 0.1 103/ul Normal 0.0-0.7 [facility] Comment on above: Performed By: #### L IPA, CMP, HSTROPN #### [facility] [address] [place] [address] Dr. Oh Trotter Eosinophils/100 WBC (Bld) 0.6 % Critically low 0.9-7.0 [facility] Comment on above: Performed By: #### L IPA, CMP, HSTROPN #### [facility] [address] [place] [address] Dr. Oh Trotter Erythrocyte distribution width (RBC) [Ratio] 12.5 % Normal 11.0-15.0 [facility] Comment on above: Performed By: #### L IPA, CMP, HSTROPN #### [facility] [address] [place] [address] Dr. Oh Trotter Hematocrit (Bld) [Volume fraction] 48.3 % Normal 42.0-54.0 [facility] Comment on above: Performed By: #### L IPA, CMP, HSTROPN #### [facility] [address] [place] [address] Dr. Oh Trotter Hemoglobin (Bld) [Mass/Vol] 16.7 g/dL Normal 14.0-18.0 [facility] Comment on above: Performed By: #### L IPA, CMP, HSTROPN #### [facility] [address] [address] [address] Oh Trotter IG # 0.01 10e3/ul Normal 0.00-0.03 [facility] Comment on above: Performed By: #### L IPA, CMP, HSTROPN #### [facility] [address] [place] [address] Dr. Oh Trotter IG % 0.1 % Normal 0.0-0.5 [facility] Comment on above: Performed By: #### L IPA, CMP, HSTROPN #### [facility] [address] [place] [address] Dr. Oh Trotter LYMPH # 3.5 103/ul Normal 1.2-3.8 [facility] Comment on above: Performed By: #### L IPA, CMP, HSTROPN #### [facility] [address] [place] [address] Dr. Oh Trotter Lymphocytes/100 WBC (Bld) 38.8 % Normal 20.5-60.0 [facility] Comment on above: Performed By: #### L IPA, CMP, HSTROPN #### [facility] [address] [place] [address] Dr. Oh Trotter MANUAL DIFF REQ NO Normal [facility] Comment on above: Performed By: #### L IPA, CMP, HSTROPN #### [facility] [address] [place] [address] Dr. Oh Trotter MCH (RBC) [Entitic mass] 29.3 pg Normal 25.9-34.0 [facility] Comment on above: Performed By: #### L IPA, CMP, HSTROPN #### [facility] [address] [place] [address] Dr. Oh Trotter MCHC (RBC) [Mass/Vol] 34.6 g/dL Normal 29.9-35.2 [facility] Comment on above: Performed By: #### L IPA, CMP, HSTROPN #### [facility] [address] [place] [address] Dr. Oh Trotter MCV (RBC) [Entitic vol] 84.9 fL Normal 80.0-94.0 [facility] Comment on above: Performed By: #### L IPA, CMP, HSTROPN #### [facility] [address] [place] [address] Dr. Oh Trotter MONO # 0.5 103/ul Normal 0.3-0.8 [facility] Comment on above: Performed By: #### L IPA, CMP, HSTROPN #### [facility] [address] [place] [address] Dr. Oh Trotter Monocytes/100 WBC (Bld) 5.4 % Normal 1.7-12.0 [facility] Comment on above: Performed By: #### L IPA, CMP, HSTROPN #### [facility] [address] [place] [address] Dr. Oh Trotter NEUT # 4.9 103/ul Normal 1.4-6.5 [facility] Comment on above: Performed By: #### L IPA, CMP, HSTROPN #### [facility] [address] [place] [address] Dr. Oh Trotter Neutrophils/100 WBC (Bld) 55.0 % Normal 43.0-75.0 [facility] Comment on above: Performed By: #### L IPA, CMP, HSTROPN #### [facility] [address] [place] [address] Dr. Oh Trotter Platelet mean volume (Bld) [Entitic vol] 9.7 fL Normal 9.5-13.5 [facility] Comment on above: Performed By: #### L IPA, CMP, HSTROPN #### [facility] [address] [place] [address] Dr. Oh Trotter PLT 227 103/ul Normal 150-450 [facility] Comment on above: Performed By: #### L IPA, CMP, HSTROPN #### [facility] [address] [place] [address] Dr. Oh Trotter RBC 5.69 106/ul Normal 4.70-6.10 [facility] Comment on above: Performed By: #### L IPA, CMP, HSTROPN #### [facility] [address] [address] [address] Oh Trotter WBC 8.9 103/ul Normal 4.0-11.0 [facility] Comment on above: Performed By: #### L IPA, CMP, HSTROPN #### [facility] [address] [address] [address] Oh Trotter D-DIMERon 09-15-2021 D-DIMER 0.19 mg/L FEU Normal <=0.59 [facility] Comment on above: Performed By: #### L IPA, CMP, HSTROPN #### [facility] [address] [address] [address] Oh Trotter D-DIMER COMMENTS SEE BELOW Normal [facility] Comment on above: [...] By: #### L IPA, CMP, HSTROPN #### [facility] [address] [place] [address] Dr. Oh Trotter PROF 14(COMP METB)on 022 Albumin [Mass/Vol] 3.9 g/dL Normal 3.4-5.0 [facility] Comment on above: Performed By: #### H STROPN, TSH, BNP, CMP #### [facility] [address] [address] [address] Oh Trotter Albumin/Globulin [Mass ratio] 0.8 {ratio} Normal [facility] Comment on above: Performed By: #### H STROPN, TSH, BNP, CMP #### [facility] [address] [place] [address] Dr. Oh Trotter ALP [Catalytic activity/Vol] 73 U/L Normal 46-116 [facility] Comment on above: Performed By: #### H STROPN, TSH, BNP, CMP #### [facility] [address] [address] [address] Oh Trotter ALT [Catalytic activity/Vol] 48 U/L Normal 16-63 [facility] Comment on above: Performed By: #### H STROPN, TSH, BNP, CMP #### [facility] [address] [address] [address] Oh Trotter Anion gap [Moles/Vol] 14.9 mmol/L Normal [facility] Comment on above: Performed By: #### H STROPN, TSH, BNP, CMP #### [facility] [address] [address] [address] Oh Trotter AST [Catalytic activity/Vol] 22 U/L Normal 15-37 [facility] Comment on above: Performed By: #### H STROPN, TSH, BNP, CMP #### [facility] [address] [place] [address] Dr. Oh Trotter Bilirubin [Mass/Vol] 0.4 mg/dL Normal 0.2-1.0 [facility] Comment on above: Performed By: #### H STROPN, TSH, BNP, CMP #### [facility] [address] [place] [address] Dr. Oh Trotter Calcium [Mass/Vol] 9.2 mg/dL Normal 8.5-10.1 [facility] Comment on above: Performed By: #### H STROPN, TSH, BNP, CMP #### [facility] [address] [address] [address] Oh Trotter Chloride [Moles/Vol] 102 mmol/L Normal 98-107 [facility] Comment on above: Performed By: #### H STROPN, TSH, BNP, CMP #### [facility] [address] [place] [address] Dr. Oh Trotter CO2 [Moles/Vol] 23.7 mmol/L Normal 21.0-32.0 [facility] Comment on above: Performed By: #### H STROPN, TSH, BNP, CMP #### [facility] [address] [address] [address] Oh Trotter Creatinine [Mass/Vol] 1.14 mg/dL Normal 0.70-1.30 [facility] Comment on above: Performed By: #### H STROPN, TSH, BNP, CMP #### [facility] [address] [address] [address] Oh Trotter EGFR-AF [place] >60 Normal >=60 [facility] Comment on above: Performed By: #### H STROPN, TSH, BNP, CMP #### [facility] [address] [address] [address] Oh Trotter EGFR-NON AF [place] >60 Normal >=60 [facility] Comment on above: Performed By: #### H STROPN, TSH, BNP, CMP #### [facility] [address] [place] [address] Dr. Oh Trotter Globulin (S) [Mass/Vol] 4.7 g/dL Normal [facility] Comment on above: Performed By: #### H STROPN, TSH, BNP, CMP #### [facility] [address] [address] [address] Oh Trotter Glucose [Mass/Vol] 120 mg/dL Critically high 74-106 [facility] Comment on above: Performed By: #### H STROPN, TSH, BNP, CMP #### [facility] [address] [place] [address] Dr. Oh Trotter Potassium [Moles/Vol] 3.6 mmol/L Normal 3.5-5.1 [facility] Comment on above: Performed By: #### H STROPN, TSH, BNP, CMP #### [facility] [address] [place] [address] Dr. Oh Trotter Protein [Mass/Vol] 8.6 g/dL Critically high 6.4-8.2 [facility] Comment on above: Performed By: #### H STROPN, TSH, BNP, CMP #### [facility] [address] [place] [address] Dr. Oh Trotter Sodium [Moles/Vol] 137 mmol/L Normal 136-145 [facility] Comment on above: Performed By: #### H STROPN, TSH, BNP, CMP #### [facility] [address] [address] [address] Oh Trotter Urea nitrogen [Mass/Vol] 12.0 mg/dL Normal 7.0-18.0 [facility] Comment on above: Performed By: #### H STROPN, TSH, BNP, CMP #### [facility] [address] [place] [address] Dr. Oh Trotter Urea nitrogen/Creatinine [Mass ratio] 10.5 mg/mg Normal [facility] Comment on above: Performed By: #### H STROPN, TSH, BNP, CMP #### [facility] [address] [place] [address] Dr. Oh Trotter PROTIMEon 09-15-2021 INR Coag (PPP) [Relative time] 0.94 {INR} Normal [facility] Comment on above: Performed By: #### L IPA, CMP, HSTROPN #### [facility] [address] [place] [address] Dr. Oh Trotter INR GUIDELINES SEE BELOW Normal [facility] Comment on above: Result Comment: ADITHYA RED INR: 2.0 - 3.0 CONDITIONS NOT LISTED BELOW 2.5 - 3.5 FOR PROSTHETIC HEART VALVE REPLACEMENT 2.5 - 3.5 RECURRENT THROMBOSIS Performed By: #### L IPA, CMP, HSTROPN #### [facility] [address] [place] [address] Dr. Oh Trotter PT Coag (PPP) [Time] 10.2 s Normal 9.0-11.6 [facility] Comment on above: Performed By: #### L IPA, CMP, HSTROPN #### [facility] [address] [place] [address] Dr. Oh Trotter PTTon 09-15-2021 aPTT Coag (Bld) [Time] 26.6 s Normal 22.3-36.2 [facility] Comment on above: Performed By: #### L IPA, CMP, HSTROPN #### [facility] [address] [place] [address] Dr. Oh Trotter TROPONIN, HIGH SENSITIVITYon 09-15-2021 HSTROP 3.4 pg/mL Critically low 4.0-76.1 [facility] Comment on above: Result Comment: CUT- OFF POINTS HAVE BEEN ESTABLISHED BASED ON THE FOURTH UNIVERSAL DEFINITIONS OF MYOCARDIAL INFARCTION. THE UPPER REFERENCE LIMIT (URL) OF TROPONIN, DEFINED THE 99TH PERCENTILE OF cTnI DISTRIBUTION IN A REFERENCE POPULATION, HAS BEEN CONFIRMED THE DECISION THRESHOLD FOR OK DIAGNOSIS. Performed By: #### P TT, PT #### [facility] [address] [address] [address] Oh Trotter TSHon 09-15-2021 TSH 1.085 uIU/mL Normal 0.358-3.740 [facility] Comment on above: Performed By: #### H STROPN, TSH, BNP, CMP #### [facility] [address] [address] [address] Oh Trotter TSH RANGE SEE BELOW Normal [facility] Comment on above: Result Comment: <0.3 4 UIU/ml HYPERTHYROID 0.34-5.60 UIU/ml EUTHYROID >5.60 UIU/ml HYPOTHYROID Performed By: #### H STROPN, TSH, BNP, CMP #### [facility] [address] [address] [address] Oh Trotter XR ABD FLAT UP_PA [...] by: OTTO POLANCO Date: 2021-09-15 19:35 Normal [facility] XR CHEST 1 Von 09-07-2021 XR [...] by: ELIZABETH TURNER Date: 2021-09-06 23:38 Normal [facility] Vital Signs Date Time Vital Sign Value Performing Clinician Radha casas 12-21-2023 15:26-0400 Blood Pressure Location [facility] 12-21-2023 15:26-0400 Diastolic blood pressure 88 mm[Hg] [facility] 12-21-2023 15:26-0400 Heart rate 80 /min [facility] 12-21-2023 15:26-0400 Respiratory rate 16 /min [facility] 12-21-2023 15:26-0400 Systolic blood pressure 120 mm[Hg] [facility] Encounters Encounter Date Encounter Type Care Provider Facility Start: 03-14-2024 End: 03-14-2024 ambulatory [facility] Start: 02-29-2024 ambulatory CAPO TAFOYA [facility] Start: 02-29-2024 End: 02-29-2024 ambulatory [facility] Start: 02-23-2024 End: 02-23-2024 ambulatory [facility] Start: 12-21-2023 End: 12-21-2023 ambulatory Lucy BEY Facility:[facility] Start: 12-21-2023 End: 12-21-2023 Patient encounter procedure Lucy [facility]Y [facility] Start: 08-09-2022 End: 08-09-2022 ambulatory LEIGHANN SORIANO [...] influenza virus vaccine, unspecified formulation Lucy [facility] Payers Date Payer Category Payer Unknown [id number] 2.16.84 [id number] 1985 Unknown [id number] 2.16.84 [id number] 1987 Unknown [id number] 2.16.84 [id number] 1987 Unknown [id number] 2.16.84 [id number] 1987 Unknown [id number] 2.16.84 [id number] 1987 Unknown [id number] 2.16.84 [id number] 1987 Unknown [id number] 2.16.84 [id number] 1987 Unknown [id number] 2.16.84 [id number] 1987 Unknown [id number] 2.16.84 [id number] 1987 Unknown [id number] 2.16.84 [id number] 1987 Unknown [id number] 2.16.84 [id number] 1987 Unknown [id number] 2.16.84 [id number] 1987 Unknown [id number] 2.16.84 [id number] 1987 Unknown [id number] 2.16.8 [id number] 1959 Unknown [id number] Social History Date Type Detail Facility Start: 12-21-2023 Tobacco smoking status Heavy t obacco smoker (finding) [facility] Tobacco smoking status Never [facility] Sex Assigned At Male [facility] Functional Status Date Assessment Result Facility 12-21-2023 Functional Status N/A [facility] Progress note 03-14-2024 Note Date & Type Note Facility 03-14-2024 Note Subjective Patient ID: Chuck Packer is [...] past 36 hour(s)). No follow-ups on file. [facility] Clinical Note 02-29-2024 Note Date & Type Note Facility 02-29-2024 Note Patient: Chuck arriaza Procedure Summary Date: 02/29/24 Room / Location: [facility] OPERATING ROOM 02 / [facility] Operating Room Anesthesia Start: 755 Anesthesia Stop: 855 Procedures: EXAM UNDER ANESTHESIA, (Rectum) HEMORRHOIDECTOMY, DEBRIDMENT OF ANAL FISSURE (Rectum) Diagnosis: Anal pain (Anal pain [K62.89]) Surgeons: Urbano Rodriguez MD Responsible Provider: Capo Tafoya MD Anesthesia Type: general ASA Status: 3 Anesthesia Type: general Vitals Value Taken Time BP 144/83 02/29/2425 Temp 36 02/29/2442 Pulse 102 02/29/24924 Resp 18 02/29/24924 SpO2 [...] per anesthesia protocol. No notable events documented. [facility] Procedure note 02-29-2024 Note Date & Type Note Facility 02-29-2024 Note Airway Date/Time: 02/29/2024 8:07 AM Urgency: elective General Information and Staff Patient location during procedure: OR Anesthesiologist: Capo Tafoya MD Resident/BOILER TUBE BLOWER/CAA: Facundo Rudolph MD Performed: resident/BOILER TUBE BLOWER/CAA Indications and Patient Condition Indications for airway [...] 1 Number of other approaches attempted: 0 [facility] Clinical Note 02-28-2024 Note Date & Type Note Facility 02-28-2024 Note Patient: Chuck arriaza Procedure Information Date/Time: 02/29/24729 Procedures: EXAM UNDER ANESTHESIA, HEMORRHOIDECTOMY, DEBRIDMENT OF ANAL FISSURE Location: [facility] OPERATING ROOM 02 / [facility] Operating Room Surgeons: Urbano Rodriguez MD Relevant Problems Cardio (+) Migraines (+) Dsbcr-Xatiuaumj-Mbzca syndrome GI (+) GERD (gastroesophageal reflux disease) [...] Depression GERD (gastroesophageal reflux disease) Morbid Obesity Krrzo-Qytjijyui-Wzozk syndrome, treated with ablation as teenager, without [...] with attending and resident. Additional Equipment Requests [facility] Clinical Note 02-24-2024 Note Date & Type [...] THE FOLLOWING ARE NOT AVAILABLE: An adult pick up driver over the age of 18, that [...] lenses. Do not wear perfume, make-up, nail maori, or lotions on the day of your [...] need to make any changes, please call [phone]. Notify your surgeon if you develop any illness such as a cold, cough, fever, sore throat or vomiting between now and your surgery. Thank you for entrusting us with your care. [facility] Surgical Services Team [facility] Progress note 02-23-2024 Note Date & Type [...] past 36 hour(s)). No follow-ups on file. [facility] Clinical Note 06-24-2022 Note Date & Type [...] good condition. CC: Leighann Soriano CNP [facility] Evaluation + Plan note Note Date & Type Note Facility Evaluation + Plan note No data available for this section [facility] Hospital Discharge instructions Note Date & Type Note Facility Hospital Discharge instructions No data available for this section [facility] Progress note Note Date & Type Note Facility Progress note No data available for this section [facility] Summary Purpose Family History No Family History [...] section and content) DATE CREATED AUTHOR 08/11/2022 [facility] DATE CREATED AUTHOR AUTHOR'S ORGANIZ ATION 12/27/2023 [facility] DATE CREATED AUTHOR AUTHOR'S ORGANIZ ATION 03/16/2024 [facility] Patient Care team informatio n (unrecognized section and content) Personnel Name: LEIGHANN SORIANO CNP Address: Address: [address] [place], [place] [address] FOR RECORDS PERTAINING TO PATIENTS [...] BE BASED ON THE PRIMARY CLINICAL RECORDS. [facility]. provides no warranty or guarantee of the accuracy or completeness of information in this document.
--- NOTE | 2024-07-15 11:35 | ED_ITS ---
HPI HPI - General Adult General Chief complaint: Upper Respiratory Infection Stated complaint: HEADACHE, COUGH,SORE THROAT Time Seen by Provider: 07/15/24 10:53 Source: patient Mode of arrival: walk-in Limitations: no limitations History of Present Illness HPI narrative: The patient is coming to the ER as part of multiple family members have similar symptoms of coughing diarrhea associated with nausea and he already have Zofran for that at home. The patient was worried about his cough He is denying difficulty breathing Related Data Home Medications ?Medication ?Instructions ?Recorded ?Confirmed divalproex 250 mg tablet,extended 250 mg PO DAILY 04/11/23 02/27/24 release 24 hr fluoxetine 10 mg capsule 60 mg PO DAILY 04/11/23 02/27/24 hydroxyzine HCl 25 mg tablet 50 mg PO BID PRN anxiety 04/11/23 02/27/24 olanzapine 10 mg tablet 10 mg PO DAILY 04/11/23 02/27/24 divalproex 500 mg tablet,extended 500 mg PO BEDTIME 02/27/24 02/27/24 release 24 hr Previous Rx's ?Medication ?Instructions ?Recorded lidocaine 5 % topical cream 1 applic topical TID PRN pain #15 02/27/24 ([facility]iCare) grams meloxicam 15 mg tablet 15 mg PO DAILY PRN pain #3 tabs 02/27/24 diclofenac sodium 75 mg 75 mg PO BID PRN pain #20 tabs 03/05/24 tablet,delayed release lidocaine 5 % topical cream 1 applic topical Q4H PRN pain #30 03/05/24 ([facility]iCare) grams oxycodone-acetaminophen 5 mg-325 1 tab PO Q12H PRN pain 2 days #4 03/05/24 mg tablet (Percocet) tabs guaifenesin 600 mg tablet, 600 mg PO BID PRN cough #10 tabs 07/15/24 extended release 12 hr (Mucinex) prednisone 50 mg tablet 50 mg PO DAILY 3 days #3 tabs 07/15/24 Allergies Allergy/AdvReac Type Severity Reaction Status Date / Time erythromycin base Allergy Intermediate Rash Verified 07/15/24 10:48 Penicillins Allergy Intermediate Rash Verified 07/15/24 10:48 Opioid HPI Opioid Management Most Recent Opioid Data: Last Pain Scale 10 03/05/24 11:31 03/05/24 Review of Systems ROS Status of ROS 10 or more systems reviewed and unremark able except as noted in history and below [facility] Social History Smoking status: Current every day smoker Little interest or pleasure in doing things: not at all Feeling down, depressed, or hopeless: not at all Exam Narrative Exam Narrative: Nurses notes and vital signs reviewed and patient is not hypoxic. General: Well-appearing and in no apparent distress. Skin: Warm, dry, no pallor noted. No rash. Head: Normocephalic, atraumatic. Neck: Supple, non-tender. Eye: Pupils are equal, round and EOMI. No scleral icterus. Ears, Nose, Mouth, and Throat: TM are clear, no nasal mucosal hypertrophy. Oral mucosa is moist, no posterior oropharynx erythema, uvula is mid-line Cardiovascular: Regular Rate and Rhythm without murmur, gallop or rub. Respiratory: No accessory muscle use or respiratory distress. Lungs are clear to auscultation, no wheezing, rales or rhonchi Chest Wall: no tenderness Back: No midline thoracic or lumbar vertebral tenderness. No CVA tenderness Musculoskeletal: normal ROM, no calf or popliteal tenderness, no lower extremity edema/swelling GI: Abdomen is soft, non-distended. Normal bowel sounds. No masses appreciated. No tenderness to palpation. No rebound, guarding, or rigidity noted. Neurological: A&O x4. No cranial nerve dysfunction observed. No truncal ataxia. Moves all extremities. Sensation intact. Psychiatric: Cooperative and interactive. Normal mood and affect. Constitutional Vital Signs, click to edit/add: Last Vital Signs Temp 99.0 F 07/15/24 12:15 Pulse 88 07/15/24 12:15 Resp 18 07/15/24 12:15 BP 167/99 H 07/15/24 12:15 Pulse Ox 98 07/15/24 12:15 Course Vital Signs Vital signs: Vital Signs Temperature 99.0 F 07/15/24 12:15 Pulse Rate 88 07/15/24 12:15 Respiratory Rate 18 07/15/24 12:15 Blood Pressure 167/99 H 07/15/24 12:15 Pulse Oximetry 98 07/15/24 12:15 Temperature 99.0 F 07/15/24 12:15 Pulse Rate 88 07/15/24 12:15 Respiratory Rate 18 07/15/24 12:15 Blood Pressure 167/99 H 07/15/24 12:15 Pulse Oximetry 98 07/15/24 12:15 Medical Decision Making [facility] Narrative Medical decision making narrative: The patient does have a significant cough and right now he was provided with prednisone as he is a cigarette smoker to help with the inflammation The patient chest x-ray showed no acute pathology The patient is to follow up with primary care physician in next 2-3 days or to return to the emergency department should any of the signs or symptoms worsen or new symptoms develop. The patient agrees with the following Diagnosis and Treatment plan and the patient will be discharged home. Discharge Plan Discharge Chief Complaint: Upper Respiratory Infection Clinical Impression: Bronchitis, Acute viral syndrome Patient Disposition: Home, Self-Care Time of Disposition Decision: 12:19 Condition: Good Prescriptions / Home Meds: New guaifenesin [Mucinex] 600 mg tablet extended release 12hr 600 mg PO BID PRN (Reason: cough) Qty: 10 0RF prednisone 50 mg tablet 50 mg PO DAILY 3 Days Qty: 3 0RF No Action divalproex 250 mg tablet extended release 24 hr 250 mg PO DAILY fluoxetine 10 mg capsule 60 mg PO DAILY hydroxyzine HCl 25 mg tablet 50 mg PO BID PRN (Reason: anxiety) olanzapine 10 mg tablet 10 mg PO DAILY divalproex 500 mg tablet extended release 24 hr 500 mg PO BEDTIME lidocaine [RectiCare] 5 % cream 1 applic topical TID PRN (Reason: pain) Qty: 15 0RF meloxicam 15 mg tablet 15 mg PO DAILY PRN (Reason: pain) Qty: 3 0RF lidocaine [RectiCare] 5 % cream 1 applic topical Q4H PRN (Reason: pain) Qty: 30 0RF Rx Instructions: do not exceed 6 doses per 24 hrs diclofenac sodium 75 mg tablet,delayed release (DR/EC) 75 mg PO BID PRN (Reason: pain) Qty: 20 0RF oxycodone-acetaminophen [Percocet] 5-325 mg tablet 1 tab PO Q12H PRN (Reason: pain) 2 Days Qty: 4 0RF Print Language: Norwegian Instructions: Acute Bronchitis (ED) Referrals: MERNA SORIANO [Primary Care Provider] - 1 week Discharge Date/Time: 07/15/24 12:30
[2024-07-15 12:15] VITALS: BP 167/99; PULSE 88; TEMP 37.2; O2SAT 98
== END 2024-07-15 12:30 | disposition home or self-care (01) ==
PROVIDERS: Emergency Provider Emergency Medicine; PCP Nurse Practitioner Family
DX: J20.8 Acute bronchitis due to other specified organisms (principal); F17.210 Nicotine dependence, cigarettes, uncomplicated
CPT/HCPCS: 71045; 99283

== ENCOUNTER 2024-07-30 13:50 | Emergency (ER) | payer OTHER, SELFPAY ==
[2024-07-30 13:56] VITALS: BP 147/104; PULSE 95; TEMP 36.9; O2SAT 97; BMI 39.0
--- NOTE | 2024-07-30 14:04 | ECG_ITS ---
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 Measurements Intervals [place] Rate: 95 P: 44 SC: 120 QRS: 15 QRSD: 76 T: -5 QT: 330 QTc: 383 Interpretive Statements 1100 Sinus rhythm 4068 Nonspecific Twave abnormality 5211 Minimal voltage criteria for LVH, may be normal variant Abnormal ECG Compared to ECG 06/28/2023 02:49:31 Left ventricular hypertrophy now present nonspecific Twave abnormality is seen in the inferior leads Electronically Signed On 07-30-2024 20:20:30 EDT by JITENDRA FOOTE M.D.
--- NOTE | 2024-07-30 14:05 | ED_ITS ---
HPI HPI - General Adult General Chief complaint: Weakness Stated complaint: WEAKNESS, BLURRED VISION Time Seen by Provider: 07/30/24 14:01 Source: patient Mode of arrival: walk-in History of Present Illness HPI narrative: 38-year-old male presents because he feels weak. This started about an hour ago while he was getting ready to go to work. He has not had a fever vomiting or diarrhea and has no chest pain. He states he ran out of his Depakote a week ago because he has not had time to go pick it up at the pharmacy. Related Data Home Medications ?Medication ?Instructions ?Recorded ?Confirmed divalproex 250 mg tablet,extended 250 mg PO DAILY 04/11/23 02/27/24 release 24 hr fluoxetine 10 mg capsule 60 mg PO DAILY 04/11/23 02/27/24 hydroxyzine HCl 25 mg tablet 50 mg PO BID PRN anxiety 04/11/23 02/27/24 olanzapine 10 mg tablet 10 mg PO DAILY 04/11/23 02/27/24 divalproex 500 mg tablet,extended 500 mg PO BEDTIME 02/27/24 02/27/24 release 24 hr Previous Rx's ?Medication ?Instructions ?Recorded lidocaine 5 % topical cream 1 applic topical TID PRN pain #15 02/27/24 ([facility]) grams meloxicam 15 mg tablet 15 mg PO DAILY PRN pain #3 tabs 02/27/24 diclofenac sodium 75 mg 75 mg PO BID PRN pain #20 tabs 03/05/24 tablet,delayed release lidocaine 5 % topical cream 1 applic topical Q4H PRN pain #30 03/05/24 ([facility]) grams oxycodone-acetaminophen 5 mg-325 1 tab PO Q12H PRN pain 2 days #4 03/05/24 mg tablet (Percocet) tabs guaifenesin 600 mg tablet, 600 mg PO BID PRN cough #10 tabs 07/15/24 extended release 12 hr (Mucinex) prednisone 50 mg tablet 50 mg PO DAILY 3 days #3 tabs 07/15/24 Allergies Allergy/AdvReac Type Severity Reaction Status Date / Time erythromycin base Allergy Intermediate Rash Verified 07/15/24 10:48 Penicillins Allergy Intermediate Rash Verified 07/15/24 10:48 Opioid HPI Opioid Management Most Recent Opioid Data: Last Pain Scale 10 03/05/24 11:31 03/05/24 Review of Systems ROS Narrative A ten point review of systems is negative except as noted above. PFSH PFSH Social History Smoking status: Current every day smoker Little interest or pleasure in doing things: not at all Feeling down, depressed, or hopeless: not at all Exam Narrative Exam Narrative: Nurses note and vital signs reviewed and patient is not hypoxic. General: The patient appears well and in no apparent distress. Patient is resting comfortably on cart. Skin: Warm, dry, no pallor noted. There is no rash noted. Head: Normocephalic, atraumatic Eye: Normal conjunctiva, no drainage Ears, Nose, Mouth, and Throat: oral mucosa is moist. Nares patent. Cardiovascular: Regular Rate and Rhythm Respiratory: Patient is in no distress, no accessory muscle use, lungs are clear to auscultation, no wheezing, rales or rhonchi Back: non-tender GI: Soft and nontender, obese Musculoskeletal: The patient has no evidence of calf tenderness, no pitting edema, symmetrical pulses noted bilaterally Neurological: A&O, normal speech; upper and lower extremity strength intact symmetrical Psychiatric: Cooperative Constitutional Vital Signs, click to edit/add: Last Vital Signs Temp 98.5 F 07/30/24 13:56 Pulse 95 H 07/30/24 13:56 Resp 18 07/30/24 13:56 BP 147/104 H 07/30/24 13:56 Pulse Ox 97 07/30/24 13:56 O2 Del Method Room Air 07/30/24 13:56 Course Vital Signs Vital signs: Vital Signs Temperature 98.5 F 07/30/24 13:56 Pulse Rate 95 H 07/30/24 13:56 Respiratory Rate 18 07/30/24 13:56 Blood Pressure 147/104 H 07/30/24 13:56 Pulse Oximetry 97 07/30/24 13:56 Oxygen Delivery Method Room Air 07/30/24 13:56 Temperature 98.5 F 07/30/24 13:56 Pulse Rate 95 H 07/30/24 13:56 Respiratory Rate 18 07/30/24 13:56 Blood Pressure 147/104 H 07/30/24 13:56 Pulse Oximetry 97 07/30/24 13:56 Oxygen Delivery Method Room Air 07/30/24 13:56 Medical Decision Making MDM Narrative Medical decision making narrative: His workup is negative. He has been out of his Depakote for a week but has a refill at the pharmacy and he will pick it up. Treatment diagnosis and follow- up were discussed with the patient. At his request he was given a work note for today. Lab Data Lab results reviewed: Yes I reviewed the patient's lab results Labs: Lab Results 07/30/24 Range/Units 14:20 WBC 7.4 (4.0-11.0) 10^3/uL RBC 4.93 (4.70-6.10) 10^6/uL Hgb 15.0 (14.0-18.0) g/dL Hct 42.1 (42.0-54.0) % MCV 85.4 (80.0-94.0) fL MCH 30.4 (25.9-34.0) pg MCHC 35.6 H (29.9-35.2) g/dL RDW 12.6 (11.0-15.0) % Plt Count 219 (150-450) 10^3/uL MPV 9.6 (9.5-13.5) fL Neut % (Auto) 69.9 (43.0-75.0) % Lymph % (Auto) 23.8 (20.5-60.0) % [place] % (Auto) 5.4 (1.7-12.0) % Eos % (Auto) 0.3 L (0.9-7.0) % Baso % (Auto) 0.3 (0.2-2.0) % Neut # (Auto) 5.2 (1.4-6.5) 10^3/uL Lymph # (Auto) 1.8 (1.2-3.8) 10^3/uL [place] # (Auto) 0.4 (0.3-0.8) 10^3/uL Eos # (Auto) 0.0 (0.0-0.7) 10^3/uL Baso # (Auto) 0.0 (0.0-0.1) 10^3/uL Abs Immat Gran (auto) 0.02 (0.00-0.03) 10^3/uL Imm/Tot Granulo (auto) 0.3 (0.0-0.5) % Sodium 139 (136-145) mmol/L Potassium 4.0 (3.5-5.1) mmol/L Chloride 103 (98-107) mmol/L Carbon Dioxide 27.3 (21.0-32.0) mmol/L Anion Gap 12.7 BUN 13.0 (7.0-18.0) mg/dL Creatinine 1.10 (0.70-1.30) mg/dL Est GFR ( Amer) >60 (>=60 mL/min/1.73m^2) Est GFR (Non-Af Amer) >60 (>=60 mL/min/1.73m^2) BUN/Creatinine Ratio 11.8 Glucose 189 H (74-106) mg/dL Calcium 8.9 (8.5-10.1) mg/dL ECG Data Attestation: I personally reviewed and interpreted this ECG as follows: (EKG on my interpretation shows sinus rhythm with a rate of 95 and no acute change) Discharge Plan Discharge Chief Complaint: Weakness Clinical Impression: Generalized weakness Patient Disposition: Home, Self-Care Time of Disposition Decision: 14:45 Condition: Good Mode of Transportation: Private Vehicle Prescriptions / Home Meds: No Action divalproex 250 mg tablet extended release 24 hr 250 mg PO DAILY fluoxetine 10 mg capsule 60 mg PO DAILY hydroxyzine HCl 25 mg tablet 50 mg PO BID PRN (Reason: anxiety) olanzapine 10 mg tablet 10 mg PO DAILY divalproex 500 mg tablet extended release 24 hr 500 mg PO BEDTIME lidocaine [[facility]] 5 % cream 1 applic topical TID PRN (Reason: pain) Qty: 15 0RF meloxicam 15 mg tablet 15 mg PO DAILY PRN (Reason: pain) Qty: 3 0RF lidocaine [[facility]] 5 % cream 1 applic topical Q4H PRN (Reason: pain) Qty: 30 0RF Rx Instructions: do not exceed 6 doses per 24 hrs diclofenac sodium 75 mg tablet,delayed release (DR/EC) 75 mg PO BID PRN (Reason: pain) Qty: 20 0RF oxycodone-acetaminophen [Percocet] 5-325 mg tablet 1 tab PO Q12H PRN (Reason: pain) 2 Days Qty: 4 0RF guaifenesin [Mucinex] 600 mg tablet extended release 12hr 600 mg PO BID PRN (Reason: cough) Qty: 10 0RF prednisone 50 mg tablet 50 mg PO DAILY 3 Days Qty: 3 0RF Print Language: Pashto Instructions: Weakness (ED) Additional Instructions: supervisor plastic sheets your Depakote refill. Referrals: MERNA SORIANO [Primary Care Provider] - 1 week
[2024-07-30 14:14] VITALS: PULSE 98
--- OUTSIDE RECORDS SUMMARY | 2024-07-30 14:23 | XMS_ITS | CCD ---
Author Organization [facility] Care Team Providers Care Compensation Vice President Name Role Phone ANTONI .MARZENA Attending Unavailable [...] Erythromycin; Translations: [ERYTHROMYCIN BASE] Drug Allergy 4 [facility] Repository (4 sources) Penicillins; Translations: [penicillins] Drug allergy (disorder) 4 [facility] (disorder) [facility] Repository (3 sources) Erythromycin; Translations: [erythromycin] Drug Allergy 4 [facility] Medications Current Medications Medication Drug Class(es) [...] Conduction disorders (2 sources) Pre-excitation syndrome; 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 05-29-2022 Chronic Esophageal [...] 06-25-2022 Other aftercare (1 source) 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; Translations: [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] Onset: 06-25-2022 Episodic Other [...] Range Facility Office Visiton 03-14-2024 Follow-up visit [id number] Chuck Packer 1985 M Date Provider Department Center 03/14/2024 Mayra-URBANO RODRIGUEZ [facility] SURG Second Fl No family history on file Level of Service:27519 [place] POSTOP FOLLOW UP VISIT RELATED TO ORIGINAL PX Reason for Visit and Comments: Post-op [483] - Chuck is here today for post op visit: hemorrhoids, s/p 02/29/24 EUA with hemorrhoidectomy and anal fissure debridement Normal [facility] HISTOLOGY - TISSUE EXAMon LAB AP CASE REPORT Normal [facility] Comment on above: Order Comment: Pre-o p diagnosis: Anal pain [K62.89] Result Comment: Surg ical Pathology Case: [id number] Authorizing Provider: Urbano Rodriguez MD Collected: 02/29/2024 0827 Ordering Location: [facility] Main Operating Room Received: 02/29/2024 1058 Pathologist: Dyana Villasenor MD Specimens: A) - Anus, ANAL FISSURE B) - Anus, INTERNAL AND EXTERNAL HEMORRHOID Performed By: #### L [id number] #### [facility] (BEAKER) [address] [facility] [address] LAB AP CLINICAL INFORMATION [facility] Comment on above: Order Comment: Pre-o p diagnosis: Anal pain [K62.89] Result Comment: Post -Op Diagnoses K62.89 - Anal pain [ICD-10-CM] Performed By: #### L [id number] #### [facility] (BEAKER) [address] [facility] [place] [address] LAB AP GROSS DESCRIPTION A. Anus. [facility] Comment on above: Order Comment: Pre-o [...] in a single cassette. [place], Pathologists' Vocational Training Teacher B. Anus. Received in formalin labeled Chuck [...] are somewhat congested with focal prominent vessels. On Call Pharmacy Technician sections are submitted in a single cassette. [place], Pathologists' Vocational Training Teacher Performed By: #### L [id number] #### [facility] (BEAKER) [address] [facility] [place] [address] LAB AP MICROSCOPIC DESCRIPTION Microscopic examination performed. [facility] Comment on above: Order Comment: Pre-o p diagnosis: Anal pain [K62.89] Performed By: #### L [id number] #### [facility] (BEAKER) [address] [place] [address] LAB AP REPORT FINAL DIAGNOSIS NARRATIVE [facility] Comment on above: Order Comment: Pre-o p diagnosis: Anal pain [K62.89] Result Comment: A. A nal fissure, debridement: - Hyperplastic squamous mucosa and dilated congested submucosal veins. B. Hemorrhoids, internal and external, hemorrhoidectomy: - Internal and external hemorrhoids with acutely inflamed reactive surface epithelium. Performed By: #### L [id number] #### [facility] (KHRIS) [address] [place] [address] HPon 02-29-2024 HP H&P reviewed. The patient was examined and there are no changes to the H&P. [facility] OPNOTEon 02-29-2024 OPNOTE EXAM UNDER ANESTHESIA,, HEMORRHOIDECTOMY, DEBRIDMENT OF ANAL FISSURE Operative Note Date: 02/29/2024 Location: [facility] OR Name: Chuck Packer, : 1985, Diagnosis Pre-op Diagnosis * Anal pain [K62.89] Post-op Diagnosis * Anal pain [K62.89] Anal fissure External and internal hemorrhoid Procedures HEMORRHOIDECTOMY, DEBRIDMENT OF ANAL FISSURE EXAM UNDER ANESTHESIA, [address] - [place] ANRCT XM SURG REQ ANES GENERAL SPI/EDRL [...] EXTERNAL HEMORRHOID Comment: PLACED IN FORMALIN Staff: Optimization Engineer: Shannan Guy RN Scrub Person: Dianelys Watson [facility] [place] Scrub: Minna Mcclendon RN [...] - hemodynamically stable. Condition: stable Urbano Rodriguez [facility] POCT GLUCOSE METER UNSOLICIT ED RESULTSon 02-29-2024 Glucose [Mass/Vol] 134 mg/dL High 70-105 [facility] Comment on above: Order Comment: Waive d Testing in the ED is performed under the ED CLIA certificate #[id number]. Result Comment: [email or web address] Performed By: #### L [id number] #### [facility] (BEAKER) [address] [place] [address] Consulton 02-23-2024 Consult [id number] Chuck Packer 1985 M Date Provider Department Center 02/23/2024 Mayra-URBANO RODRIGUEZ [facility] SURG Second Fl No family history on file Level of Service:30312 [place] OFFICE/OUTPATIENT NEW LOW MDM 30 MINUTES Reason for Visit and Comments: Consult [484] - Chuck is here today for consult: Rectal pain and Bleeding Normal [facility] HPon 02-23-2024 HP Subjective Patient ID: [...] 36 hour(s)). No follow-ups on file. Normal [facility] General Surgery Office/Clini c Noteon 12-26-2023 [...] Rectal bleeding Rectal or anal pain Smoker Kcagi-Wyhsxwhkt-Xxwim syndrome Historical Atrial fibrillation Epididymitis Nocturia Scrotal [...] inactivated - Not Given Patient Refuses Normal [facility] Comment on above: Result Comment: Elec [...] with mild panic attacks Rectal bleeding Smoker Kvyzg-Raivqjqlu-Tinth syndrome Historical - Any problem that you are no longer receiving treatment for. Atrial fibrillation Epididymitis Nocturia Scrotal pain Patient Survey You may receive a survey via text or e-mail asking about your office visit. Please share your experience with us by completing your survey. We appreciate your feedback and thank you for choosing us for your care. Normal [facility] CBC AUTO DIFFon 08-09-2022 BASO # 0.0 103/ul Normal 0.0-0.1 [facility] Comment on above: Performed By: #### P TT, PT #### [facility] [address] [place], [place] [address] Dr. Oh Trotter Basophils/100 WBC (Bld) 0.2 % Normal 0.2-2.0 [facility] Comment on above: Performed By: #### P TT, PT #### [facility] [address] [place], [place] [address] Dr. Oh Trotter EO # 0.0 103/ul Normal 0.0-0.7 [facility] Comment on above: Performed By: #### P TT, PT #### [facility] [address] [place] [address] Dr. Oh Trotter Eosinophils/100 WBC (Bld) 0.6 % Critically low 0.9-7.0 [facility] Comment on above: Performed By: #### P TT, PT #### [facility] [address] [place] [address] Dr. Oh Trotter Erythrocyte distribution width (RBC) [Ratio] 12.2 % Normal 11.0-15.0 [facility] Comment on above: Performed By: #### P TT, PT #### [facility] [address] [place] [address] Dr. Oh Trotter Hematocrit (Bld) [Volume fraction] 44.1 % Normal 42.0-54.0 [facility] Comment on above: Performed By: #### P TT, PT #### [facility] [address] [place] [address] Dr. Oh Trotter Hemoglobin (Bld) [Mass/Vol] 15.8 g/dL Normal 14.0-18.0 [facility] Comment on above: Performed By: #### P TT, PT #### [facility] [address] [place] [address] Dr. Oh Trotter IG # 0.02 10e3/ul Normal 0.00-0.03 [facility] Comment on above: Performed By: #### P TT, PT #### [facility] [address] [place] [address] Dr. Oh Trotter IG % 0.3 % Normal 0.0-0.5 [facility] Comment on above: Performed By: #### P TT, PT #### [facility] [address] [place] [address] Dr. Oh Trotter LYMPH # 1.9 103/ul Normal 1.2-3.8 [facility] Comment on above: Performed By: #### P TT, PT #### [facility] [address] [place] [address] Dr. Oh Trotter Lymphocytes/100 WBC (Bld) 29.7 % Normal 20.5-60.0 [facility] Comment on above: Performed By: #### P TT, PT #### [facility] [address] [place] [address] Dr. Oh Trotter MANUAL DIFF REQ NO Normal [facility] Comment on above: Performed By: #### P TT, PT #### [facility] [address] [place] [address] Dr. Oh Trotter MCH (RBC) [Entitic mass] 29.8 pg Normal 25.9-34.0 [facility] Comment on above: Performed By: #### P TT, PT #### [facility] [address] [place] [address] Dr. Oh Trotter MCHC (RBC) [Mass/Vol] 35.8 g/dL Critically high 29.9-35.2 [facility] Comment on above: Performed By: #### P TT, PT #### [facility] [address] [place] [address] Dr. Oh Trotter MCV (RBC) [Entitic vol] 83.2 fL Normal 80.0-94.0 [facility] Comment on above: Performed By: #### P TT, PT #### [facility] [address] [place] [address] Dr. Oh Trotter MONO # 0.6 103/ul Normal 0.3-0.8 [facility] Comment on above: Performed By: #### P TT, PT #### [facility] [address] [place] [address] Dr. Oh Trotter Monocytes/100 WBC (Bld) 8.6 % Normal 1.7-12.0 [facility] Comment on above: Performed By: #### P TT, PT #### [facility] [address] [place] [address] Dr. Oh Trotter NEUT # 3.9 103/ul Normal 1.4-6.5 [facility] Comment on above: Performed By: #### P TT, PT #### [facility] [address] [place] [address] Dr. Oh Trotter Neutrophils/100 WBC (Bld) 60.6 % Normal 43.0-75.0 [facility] Comment on above: Performed By: #### P TT, PT #### [facility] [address] [place] [address] Dr. Oh Trotter Platelet mean volume (Bld) [Entitic vol] 9.5 fL Normal 9.5-13.5 [facility] Comment on above: Performed By: #### P TT, PT #### [facility] [address] [place] [address] Dr. Oh Trotter PLT 187 103/ul Normal 150-450 [facility] Comment on above: Performed By: #### P TT, PT #### [facility] [address] [place] [address] Dr. Oh Trotter RBC 5.30 106/ul Normal 4.70-6.10 [facility] Comment on above: Performed By: #### P TT, PT #### [facility] [address] [place] [address] Dr. Oh Trotter WBC 6.4 103/ul Normal 4.0-11.0 [facility] Comment on above: Performed By: #### P TT, PT #### [facility] [address] [place] [address] Dr. Oh Trotter PROF 14(COMP METB)on 023 Albumin [Mass/Vol] 3.5 g/dL Normal 3.4-5.0 [facility] Comment on above: Performed By: #### L IPA, CMP, HSTROPN #### [facility] [address] [place] [address] Dr. Oh Trotter Albumin/Globulin [Mass ratio] 0.7 {ratio} Normal [facility] Comment on above: Performed By: #### L IPA, CMP, HSTROPN #### [facility] [address] [place] [address] Dr. Oh Trotter ALP [Catalytic activity/Vol] 85 U/L Normal 46-116 [facility] Comment on above: Performed By: #### L IPA, CMP, HSTROPN #### [facility] [address] [place] [address] [address] Oh Trotter ALT [Catalytic activity/Vol] 34 U/L Normal 16-63 [facility] Comment on above: Performed By: #### L IPA, CMP, HSTROPN #### [facility] [address] [place] [address] [address] Oh Trotter Anion gap [Moles/Vol] 13.3 mmol/L Normal [facility] Comment on above: Performed By: #### L IPA, CMP, HSTROPN #### [facility] [address] [place] [address] [address] Oh Trotter AST [Catalytic activity/Vol] 18 U/L Normal 15-37 [facility] Comment on above: Performed By: #### L IPA, CMP, HSTROPN #### [facility] [address] [place] [address] Dr. Oh Trotter Bilirubin [Mass/Vol] 0.4 mg/dL Normal 0.2-1.0 [facility] Comment on above: Performed By: #### L IPA, CMP, HSTROPN #### [facility] [address] [place] [address] [address] Oh Trotter Calcium [Mass/Vol] 8.9 mg/dL Normal 8.5-10.1 [facility] Comment on above: Performed By: #### L IPA, CMP, HSTROPN #### [facility] [address] [place] [address] [address] Oh Trotter Chloride [Moles/Vol] 105 mmol/L Normal 98-107 [facility] Comment on above: Performed By: #### L IPA, CMP, HSTROPN #### [facility] [address] [place] [address] [address] Oh Trotter CO2 [Moles/Vol] 24.7 mmol/L Normal 21.0-32.0 [facility] Comment on above: Performed By: #### L IPA, CMP, HSTROPN #### [facility] [address] [place] [address] [address] Oh Trotter Creatinine [Mass/Vol] 0.88 mg/dL Normal 0.70-1.30 [facility] Comment on above: Performed By: #### L IPA, CMP, HSTROPN #### [facility] [address] [place] [address] [address] Oh Trotter EGFR-AF VINCENTIAN >60 Normal >=60 [facility] Comment on above: Performed By: #### L IPA, CMP, HSTROPN #### [facility] [address] [place] [address] [address] Oh Trotter EGFR-NON AF VINCENTIAN >60 Normal >=60 [facility] Comment on above: Performed By: #### L IPA, CMP, HSTROPN #### [facility] [address] [place] [address] [address] Oh Trotter Globulin (S) [Mass/Vol] 4.8 g/dL Normal [facility] Comment on above: Performed By: #### L IPA, CMP, HSTROPN #### [facility] [address] [place] [address] [address] Oh Trotter Glucose [Mass/Vol] 113 mg/dL Critically high 74-106 [facility] Comment on above: Performed By: #### L IPA, CMP, HSTROPN #### [facility] [address] [place] [address] Dr. Oh Trotter Potassium [Moles/Vol] 4.0 mmol/L Normal 3.5-5.1 [facility] Comment on above: Performed By: #### L IPA, CMP, HSTROPN #### [facility] [address] [place] [address] Dr. Oh Trotter Protein [Mass/Vol] 8.3 g/dL Critically high 6.4-8.2 [facility] Comment on above: Performed By: #### L IPA, CMP, HSTROPN #### [facility] [address] [place] [address] [address] Oh Trotter Sodium [Moles/Vol] 139 mmol/L Normal 136-145 [facility] Comment on above: Performed By: #### L IPA, CMP, HSTROPN #### [facility] [address] [place] [address] [address] Oh Trotter Urea nitrogen [Mass/Vol] 15.0 mg/dL Normal 7.0-18.0 [facility] Comment on above: Performed By: #### L IPA, CMP, HSTROPN #### [facility] [address] [place] [address] [address] Oh Trotter Urea nitrogen/Creatinine [Mass ratio] 17.0 mg/mg Normal [facility] Comment on above: Performed By: #### L IPA, CMP, HSTROPN #### [facility] [address] [place] [address] [address] Oh Trotter XR ABD FLAT UP_PA [...] VERA SETHI Date: 2022-07-28 22:14 Normal [facility] CBC AUTO DIFFon 07-28-2022 BASO # 0.0 103/ul Normal 0.0-0.1 [facility] Comment on above: Performed By: #### L IPA, CMP, HSTROPN #### [facility] [address] [place] [address] [address] Oh Trotter Basophils/100 WBC (Bld) 0.2 % Normal 0.2-2.0 [facility] Comment on above: Performed By: #### L IPA, CMP, HSTROPN #### [facility] [address] [place] [address] Dr. Oh Trotter EO # 0.1 103/ul Normal 0.0-0.7 [facility] Comment on above: Performed By: #### L IPA, CMP, HSTROPN #### [facility] [address] [place] [address] Dr. Oh Trotter Eosinophils/100 WBC (Bld) 0.9 % Normal 0.9-7.0 [facility] Comment on above: Performed By: #### L IPA, CMP, HSTROPN #### [facility] [address] [place] [address] Dr. Oh Trotter Erythrocyte distribution width (RBC) [Ratio] 12.4 % Normal 11.0-15.0 [facility] Comment on above: Performed By: #### L IPA, CMP, HSTROPN #### [facility] [address] [place] [address] Dr. Oh Trotter Hematocrit (Bld) [Volume fraction] 44.8 % Normal 42.0-54.0 [facility] Comment on above: Performed By: #### L IPA, CMP, HSTROPN #### [facility] [address] [place] [address] Dr. Oh Trotter Hemoglobin (Bld) [Mass/Vol] 15.7 g/dL Normal 14.0-18.0 [facility] Comment on above: Performed By: #### L IPA, CMP, HSTROPN #### [facility] [address] [place] [address] Dr. Oh Trotter IG # 0.02 10e3/ul Normal 0.00-0.03 [facility] Comment on above: Performed By: #### L IPA, CMP, HSTROPN #### [facility] [address] [place] [address] Dr. Oh Trotter IG % 0.2 % Normal 0.0-0.5 [facility] Comment on above: Performed By: #### L IPA, CMP, HSTROPN #### [facility] [address] [place] [address] Dr. Oh Trotter LYMPH # 3.2 103/ul Normal 1.2-3.8 [facility] Comment on above: Performed By: #### L IPA, CMP, HSTROPN #### [facility] [address] [place] [address] Dr. Oh Trotter Lymphocytes/100 WBC (Bld) 39.2 % Normal 20.5-60.0 [facility] Comment on above: Performed By: #### L IPA, CMP, HSTROPN #### [facility] [address] [place] [address] Dr. Oh Trotter MANUAL DIFF REQ NO Normal [facility] Comment on above: Performed By: #### L IPA, CMP, HSTROPN #### [facility] [address] [place] [address] Dr. Oh Trotter MCH (RBC) [Entitic mass] 29.3 pg Normal 25.9-34.0 [facility] Comment on above: Performed By: #### L IPA, CMP, HSTROPN #### [facility] [address] [place] [address] Dr. Oh Trotter MCHC (RBC) [Mass/Vol] 35.0 g/dL Normal 29.9-35.2 [facility] Comment on above: Performed By: #### L IPA, CMP, HSTROPN #### [facility] [address] [place] [address] Dr. Oh Trotter MCV (RBC) [Entitic vol] 83.7 fL Normal 80.0-94.0 [facility] Comment on above: Performed By: #### L IPA, CMP, HSTROPN #### [facility] [address] [place] [address] Dr. Oh Trotter MONO # 0.6 103/ul Normal 0.3-0.8 [facility] Comment on above: Performed By: #### L IPA, CMP, HSTROPN #### [facility] [address] [place] [address] Dr. Oh Trotter Monocytes/100 WBC (Bld) 7.5 % Normal 1.7-12.0 [facility] Comment on above: Performed By: #### L IPA, CMP, HSTROPN #### [facility] [address] [place] [address] Dr. Oh Trotter NEUT # 4.3 103/ul Normal 1.4-6.5 [facility] Comment on above: Performed By: #### L IPA, CMP, HSTROPN #### [facility] [address] [place] [address] Dr. Oh Trotter Neutrophils/100 WBC (Bld) 52.0 % Normal 43.0-75.0 [facility] Comment on above: Performed By: #### L IPA, CMP, HSTROPN #### [facility] [address] [place] [address] Dr. Oh Trotter Platelet mean volume (Bld) [Entitic vol] 9.8 fL Normal 9.5-13.5 [facility] Comment on above: Performed By: #### L IPA, CMP, HSTROPN #### [facility] [address] [place] [address] Dr. Oh Trotter PLT 210 103/ul Normal 150-450 [facility] Comment on above: Performed By: #### L IPA, CMP, HSTROPN #### [facility] [address] [place] [address] Dr. Oh Trotter RBC 5.35 106/ul Normal 4.70-6.10 [facility] Comment on above: Performed By: #### L IPA, CMP, HSTROPN #### [facility] [address] [place] [address] Dr. Oh Trotter WBC 8.2 103/ul Normal 4.0-11.0 [facility] Comment on above: Performed By: #### L IPA, CMP, HSTROPN #### [facility] [address] [place] [address] Dr. Oh Trotter OCC BLD IMMUNOASSAYon 2022 OCCULT BLOOD Positive Abnormal NEGATIVE [facility] Comment on above: Performed By: #### P TT, PT #### [facility] [address] [place] [address] Dr. Oh Trotter PROF 14(COMP METB)on 023 Albumin [Mass/Vol] 3.9 g/dL Normal 3.4-5.0 [facility] Comment on above: Performed By: #### L IPA, CMP, HSTROPN #### [facility] [address] [place] [address] Dr. Oh Trotter Albumin/Globulin [Mass ratio] 0.9 {ratio} Normal [facility] Comment on above: Performed By: #### L IPA, CMP, HSTROPN #### [facility] [address] [place] [address] Dr. Oh Trotter ALP [Catalytic activity/Vol] 98 U/L Normal 46-116 [facility] Comment on above: Performed By: #### L IPA, CMP, HSTROPN #### [facility] [address] [place] [address] Dr. Oh Trotter ALT [Catalytic activity/Vol] 47 U/L Normal 16-63 [facility] Comment on above: Performed By: #### L IPA, CMP, HSTROPN #### [facility] [address] [place] [address] Dr. Oh Trotter Anion gap [Moles/Vol] 13.8 mmol/L Normal [facility] Comment on above: Performed By: #### L IPA, CMP, HSTROPN #### [facility] [address] [place] [address] Dr. Oh Trotter AST [Catalytic activity/Vol] 18 U/L Normal 15-37 [facility] Comment on above: Performed By: #### L IPA, CMP, HSTROPN #### [facility] [address] [place] [address] Dr. Oh Trtoter Bilirubin [Mass/Vol] 0.3 mg/dL Normal 0.2-1.0 [facility] Comment on above: Performed By: #### L IPA, CMP, HSTROPN #### [facility] [address] [place] [address] [address] Oh Trotter Calcium [Mass/Vol] 8.8 mg/dL Normal 8.5-10.1 [facility] [place] Comment on above: Performed By: #### L IPA, CMP, HSTROPN #### [facility] [address] [place] [address] [address] Oh Trotter Chloride [Moles/Vol] 105 mmol/L Normal 98-107 [facility] Comment on above: Performed By: #### L IPA, CMP, HSTROPN #### [facility] [address] [place] [address] [address] Oh Trotter CO2 [Moles/Vol] 25.2 mmol/L Normal 21.0-32.0 [facility] Comment on above: Performed By: #### L IPA, CMP, HSTROPN #### [facility] [address] [address] [address] Oh Trotter Creatinine [Mass/Vol] 1.02 mg/dL Normal 0.70-1.30 [facility] Comment on above: Performed By: #### L IPA, CMP, HSTROPN #### [facility] [address] [address] [address] Oh Trotter EGFR-AF VINCENTIAN >60 Normal >=60 [facility] Comment on above: Performed By: #### L IPA, CMP, HSTROPN #### [facility] [address] [address] [address] Oh Trotter EGFR-NON AF VINCENTIAN >60 Normal >=60 [facility] Comment on above: Performed By: #### L IPA, CMP, HSTROPN #### [facility] [address] [address] [address] Oh Trotter Globulin (S) [Mass/Vol] 4.2 g/dL Normal [facility] Comment on above: Performed By: #### L IPA, CMP, HSTROPN #### [facility] [address] [address] [address] Oh Trotter Glucose [Mass/Vol] 104 mg/dL Normal 74-106 The [facility] Comment on above: Performed By: #### L IPA, CMP, HSTROPN #### [facility] [address] [address] [address] Oh Trotter Potassium [Moles/Vol] 4.0 mmol/L Normal 3.5-5.1 [facility] Comment on above: Performed By: #### L IPA, CMP, HSTROPN #### [facility] [address] [place] [address] Dr. Oh Trotter Protein [Mass/Vol] 8.1 g/dL Normal 6.4-8.2 [facility] Comment on above: Performed By: #### L IPA, CMP, HSTROPN #### [facility] [address] [place] [address] Dr. Oh Trotter Sodium [Moles/Vol] 140 mmol/L Normal 136-145 The [facility] Comment on above: Performed By: #### L IPA, CMP, HSTROPN #### [facility] [address] [place] [address] Dr. Oh Trotter Urea nitrogen [Mass/Vol] 16.0 mg/dL Normal 7.0-18.0 [facility] Comment on above: Performed By: #### L IPA, CMP, HSTROPN #### [facility] [address] [place] [address] Dr. Oh Trotter Urea nitrogen/Creatinine [Mass ratio] 15.7 mg/mg Normal [facility] Comment on above: Performed By: #### L IPA, CMP, HSTROPN #### [facility] [address] [place] [address] Dr. Oh Trotter PROTIMEon 07-28-2022 INR Coag (PPP) [Relative time] {INR} Normal [facility] Comment on above: Performed By: #### P TT, PT #### [facility] [address] [place] [address] Dr. Oh Trotter INR GUIDELINES SEE BELOW Normal [facility] Comment on above: Result Comment: ADITHYA RED INR: 2.0 - 3.0 CONDITIONS NOT LISTED BELOW 2.5 - 3.5 FOR PROSTHETIC HEART VALVE REPLACEMENT 2.5 - 3.5 RECURRENT THROMBOSIS Performed By: #### P TT, PT #### [facility] [address] [address] [address] Oh Trotter PT Coag (PPP) [Time] 9.8 s Normal 9.0-11.6 [facility] Comment on above: Performed By: #### P TT, PT #### [facility] [address] [address] [address] Oh Trotter PTTon 07-28-2022 aPTT Coag (Bld) [Time] 26.6 s Normal 22.3-36.2 [facility] Comment on above: Performed By: #### P TT, PT #### [facility] [address] [place] [address] Dr. Oh Trotter Covid-19 PCR ([facility])on SARS-CoV-2 (COVID-19) RNA SHAE+probe Ql (Unsp spec) Not detected Normal NOT DETECTED [facility] Comment on above: Result Comment: This test is not yet approved or cleared by the [place] FDA. When there are no FDA-approved or cleared tests available, and other criteria are met, FDA can make tests available under an emergency access mechanism called an Emergency Use Authorization (EUA). The EUA for this test is supported by the [place] of Health and Human Service's (HHS's) declaration [...] Performed By: #### P TT, PT #### [facility] [address] [place] [address] Dr. Oh Trotter INFLUENZA A AND B AGon 05-11 INFLUANEGH SEE BELOW Normal [facility] Comment on above: Result Comment: Nega tive for Flu A protein angiten. Infection due to Flu A cannot be ruled out. Flu A angiten in the sample may be below the detection limit of the test. Performed By: #### L IPA, CMP, HSTROPN #### [facility] [address] [place] [address] Dr. Oh Trotter [facility] SEE BELOW Normal [facility] Comment on above: Result Comment: Nega tive for Flu B protein antigen. Infection due to Flu B cannot be ruled out. Flu B antigen in the sample may be below the detection limit of the test. Performed By: #### L IPA, CMP, HSTROPN #### [facility] [address] [place] [address] Dr. Oh Trotter INFLUENZA A AG Negative Normal NEGATIVE SEE COMMENT [facility] Comment on above: Performed By: #### L IPA, CMP, HSTROPN #### [facility] [address] [place] [address] Dr. Oh Trotter INFLUENZA B AG Negative Normal NEGATIVE SEE COMMENT [facility] Comment on above: Performed By: #### L IPA, CMP, HSTROPN #### [facility] [address] [place] [address] Dr. Oh Trotter CBC AUTO DIFFon 03-06-2022 BASO # 0.0 103/ul Normal 0.0-0.1 [facility] Comment on above: Performed By: #### P TT, PT #### [facility] [address] [place] [address] Dr. Oh Trotter Basophils/100 WBC (Bld) 0.2 % Normal 0.2-2.0 [facility] Comment on above: Performed By: #### P TT, PT #### [facility] [address] [place] [address] Dr. Oh Trotter EO # 0.0 103/ul Normal 0.0-0.7 [facility] Comment on above: Performed By: #### P TT, PT #### [facility] [address] [place] [address] Dr. Oh Trotter Eosinophils/100 WBC (Bld) 0.4 % Critically low 0.9-7.0 [facility] Comment on above: Performed By: #### P TT, PT #### [facility] [address] [place] [address] Dr. Oh Trotter Erythrocyte distribution width (RBC) [Ratio] 12.2 % Normal 11.0-15.0 [facility] Comment on above: Performed By: #### P TT, PT #### [facility] [address] [place] [address] Dr. Oh Trotter Hematocrit (Bld) [Volume fraction] 45.7 % Normal 42.0-54.0 [facility] Comment on above: Performed By: #### P TT, PT #### [facility] [address] [place] [address] Dr. Oh Trotter Hemoglobin (Bld) [Mass/Vol] 16.0 g/dL Normal 14.0-18.0 [facility] Comment on above: Performed By: #### P TT, PT #### [facility] [address] [place] [address] Dr. Oh Trotter IG # 0.04 10e3/ul Critically high 0.00-0.03 [facility] Comment on above: Performed By: #### P TT, PT #### [facility] [address] [place] [address] Dr. Oh Trotter IG % 0.4 % Normal 0.0-0.5 [facility] Comment on above: Performed By: #### P TT, PT #### [facility] [address] [place] [address] Dr. hO Trotter LYMPH # 2.8 103/ul Normal 1.2-3.8 [facility] Comment on above: Performed By: #### P TT, PT #### [facility] [address] [place] [address] Dr. Oh Trotter Lymphocytes/100 WBC (Bld) 29.5 % Normal 20.5-60.0 [facility] Comment on above: Performed By: #### P TT, PT #### [facility] [address] [place] [address] Dr. Oh Trotter MANUAL DIFF REQ NO Normal [facility] Comment on above: Performed By: #### P TT, PT #### [facility] [address] [place] [address] Dr. Oh Trotter MCH (RBC) [Entitic mass] 29.7 pg Normal 25.9-34.0 [facility] Comment on above: Performed By: #### P TT, PT #### [facility] [address] [place] [address] Dr. Oh Trotter MCHC (RBC) [Mass/Vol] 35.0 g/dL Normal 29.9-35.2 [facility] Comment on above: Performed By: #### P TT, PT #### [facility] [address] [place] [address] Dr. Oh Trotter MCV (RBC) [Entitic vol] 84.8 fL Normal 80.0-94.0 [facility] Comment on above: Performed By: #### P TT, PT #### [facility] [address] [place] [address] Dr. Oh Trotter MONO # 0.5 103/ul Normal 0.3-0.8 [facility] Comment on above: Performed By: #### P TT, PT #### [facility] [address] [place] [address] Dr. Oh Trotter Monocytes/100 WBC (Bld) 5.2 % Normal 1.7-12.0 [facility] Comment on above: Performed By: #### P TT, PT #### [facility] [address] [place] [address] Dr. Oh Trotter NEUT # 6.2 103/ul Normal 1.4-6.5 [facility] Comment on above: Performed By: #### P TT, PT #### [facility] [address] [place] [address] Dr. Oh Trotter Neutrophils/100 WBC (Bld) 64.3 % Normal 43.0-75.0 [facility] Comment on above: Performed By: #### P TT, PT #### [facility] [address] [address] [address] Oh Trotter Platelet mean volume (Bld) [Entitic vol] 9.9 fL Normal 9.5-13.5 [facility] Comment on above: Performed By: #### P TT, PT #### [facility] [address] [address] [address] Oh Trotter PLT 196 103/ul Normal 150-450 [facility] Comment on above: Performed By: #### P TT, PT #### [facility] [address] [address] [address] Oh Trotter RBC 5.39 106/ul Normal 4.70-6.10 [facility] Comment on above: Performed By: #### P TT, PT #### [facility] [address] [place] [address] Dr. Oh Trotter WBC 9.6 103/ul Normal 4.0-11.0 [facility] Comment on above: Performed By: #### P TT, PT #### [facility] [address] [place] [address] Dr. Oh Trotter D-DIMERon 03-06-2022 D-DIMER <0.19 Normal <=0.59 [facility] Comment on above: Performed By: #### P TT, PT #### [facility] [address] [place] [address] Dr. Oh Trotter D-DIMER COMMENTS SEE BELOW Normal [facility] Comment on above: Result Comment: [...] Performed By: #### P TT, PT #### [facility] [address] [place] [address] Dr. Oh Trotter ER URINE PROFILEon 2 Bilirubin Ql (U) Negative Normal NEGATIVE [facility] Comment on above: Performed By: #### Marcelo GLOVER UMICRO #### [facility] [address] [place] [address] Dr. Oh Trotter Clarity (U) CLEAR Normal CLEAR [facility] Comment on above: Performed By: #### Marcelo GLOVER UMICRO #### [facility] [address] [address] [address] Oh Trotter Color (U) LT. YELLOW Normal YELLOW [facility] Comment on above: Performed By: #### Marcelo GLOVER UMICRO #### [facility] [address] [place] [address] Dr. Oh OLIVA A micrscopic examination will be performed if indicated. Normal [facility] Comment on above: Performed By: #### Marcelo GLOVER UMICRO #### [facility] [address] [place] [address] Dr. Oh Trotter Glucose Ql (U) Negative Normal NEGATIVE [facility] Comment on above: Performed By: #### Marcelo GLOVER UMICRO #### [facility] [address] [place] [address] Dr. Oh Trotter Hemoglobin Ql (U) SMALL Abnormal NEGATIVE [facility] Comment on above: Performed By: #### Marcelo GLOVER UMICRO #### [facility] [address] [place] [address] Dr. Oh Trotter Ketones Ql (U) Negative Normal NEGATIVE [facility] Comment on above: Performed By: #### Marcelo GLOVER UMICRO #### [facility] [address] [place] [address] Dr. Oh Trotter LEUKOCYTES Negative Normal NEGATIVE [facility] Comment on above: Performed By: #### Marcelo GLOVER UMICRO #### [facility] [address] [place] [address] Dr. Oh Trotter Nitrite Ql (U) Negative Normal NEGATIVE [facility] Comment on above: Performed By: #### Marcelo GLOVER UMICRO #### [facility] [address] [place] [address] Dr. Oh Trotter pH (U) 6.0 [pH] Normal 5-9 [facility] Comment on above: Performed By: #### OSVALDO STONER #### [facility] [address] [place] [address] Dr. Oh Trotter SPEC GRAVITY 1.025 Normal 1.005-<=1.025 [facility] Comment on above: Performed By: #### OSVALDO STONER #### [facility] [address] [place] [address] Dr. Oh Trotter UA PROTEIN Negative Normal NEGATIVE/ TRACE [facility] Comment on above: Performed By: #### OSVALDO STONER #### [facility] [address] [place] [address] Dr. Oh Trotter UR MICRO IND INDICATED Normal [facility] Comment on above: Performed By: #### OSVALDO STONER #### [facility] [address] [place] [address] Dr. Oh Trotter Urobilinogen Qn (U) 0.2 {Federico'U}/dL Normal 0.2 - 1. 0 [facility] Comment on above: Performed By: #### OSVALDO STONER #### [facility] [address] [place] [address] Dr. Oh Trotter LIPASEon 03-06-2022 Lipase [Catalytic activity/Vol] 125.0 U/L Normal 73.0-393.0 [facility] Comment on above: Performed By: #### L IPA, CMP, HSTROPN #### [facility] [address] [place] [address] Dr. Oh Trotter PROF 14(COMP METB)on 022 Albumin [Mass/Vol] 3.8 g/dL Normal 3.4-5.0 [facility] Comment on above: Performed By: #### L IPA, CMP, HSTROPN #### [facility] [address] [place] [address] Dr. Oh Trotter Albumin/Globulin [Mass ratio] 0.8 {ratio} Normal [facility] Comment on above: Performed By: #### L IPA, CMP, HSTROPN #### [facility] [address] [address] [address] Oh Trotter ALP [Catalytic activity/Vol] 77 U/L Normal 46-116 [facility] Comment on above: Performed By: #### L IPA, CMP, HSTROPN #### [facility] [address] [place] [address] Dr. Oh Trotter ALT [Catalytic activity/Vol] 39 U/L Normal 16-63 [facility] Comment on above: Performed By: #### L IPA, CMP, HSTROPN #### [facility] [address] [place] [address] Dr. Oh Trotter Anion gap [Moles/Vol] 9.3 mmol/L Normal [facility] Comment on above: Performed By: #### L IPA, CMP, HSTROPN #### [facility] [address] [place] [address] Dr. Oh Trotter AST [Catalytic activity/Vol] 21 U/L Normal 15-37 [facility] Comment on above: Performed By: #### L IPA, CMP, HSTROPN #### [facility] [address] [place] [address] Dr. Oh Trotter Bilirubin [Mass/Vol] 0.4 mg/dL Normal 0.2-1.0 [facility] Comment on above: Performed By: #### L IPA, CMP, HSTROPN #### [facility] [address] [place] [address] Dr. Oh Trotter Calcium [Mass/Vol] 9.2 mg/dL Normal 8.5-10.1 [facility] Comment on above: Performed By: #### L IPA, CMP, HSTROPN #### [facility] [address] [place] [address] Dr. Oh Trotter Chloride [Moles/Vol] 102 mmol/L Normal 98-107 [facility] Comment on above: Performed By: #### L IPA, CMP, HSTROPN #### [facility] [address] [address] [address] hO Trotter CO2 [Moles/Vol] 26.6 mmol/L Normal 21.0-32.0 [facility] Comment on above: Performed By: #### L IPA, CMP, HSTROPN #### [facility] [address] [address] [address] Oh Trotter Creatinine [Mass/Vol] 1.08 mg/dL Normal 0.70-1.30 [facility] Comment on above: Performed By: #### L IPA, CMP, HSTROPN #### [facility] [address] [address] [address] Oh Trotter EGFR-AF VINCENTIAN >60 Normal >=60 [facility] Comment on above: Performed By: #### L IPA, CMP, HSTROPN #### [facility] [address] [place] [address] Dr. Oh Trotter EGFR-NON AF VINCENTIAN >60 Normal >=60 [facility] Comment on above: Performed By: #### L IPA, CMP, HSTROPN #### [facility] [address] [address] [address] Oh Trotter Globulin (S) [Mass/Vol] 4.7 g/dL Normal [facility] Comment on above: Performed By: #### L IPA, CMP, HSTROPN #### [facility] [address] [place] [address] Dr. Oh Trotter Glucose [Mass/Vol] 103 mg/dL Normal 74-106 [facility] Comment on above: Performed By: #### L IPA, CMP, HSTROPN #### [facility] [address] [address] [address] Oh Trotter Potassium [Moles/Vol] 3.9 mmol/L Normal 3.5-5.1 [facility] Comment on above: Performed By: #### L IPA, CMP, HSTROPN #### [facility] [address] [address] [address] Oh Trotter Protein [Mass/Vol] 8.5 g/dL Critically high 6.4-8.2 [facility] Comment on above: Performed By: #### L IPA, CMP, HSTROPN #### [facility] [address] [address] [address] Oh Trotter Sodium [Moles/Vol] 134 mmol/L Critically low 136-145 Th e [facility] Comment on above: Performed By: #### L IPA, CMP, HSTROPN #### [facility] [address] [place] [address] Dr. Oh Trotter Urea nitrogen [Mass/Vol] 20.0 mg/dL Critically high 7.0-18.0 [facility] Comment on above: Performed By: #### L IPA, CMP, HSTROPN #### [facility] [address] [place] [address] Dr. Oh Trotter Urea nitrogen/Creatinine [Mass ratio] 18.5 mg/mg Normal [facility] Comment on above: Performed By: #### L IPA, CMP, HSTROPN #### [facility] [address] [place] [address] Dr. Oh Trotter PROTIMEon 03-06-2022 INR Coag (PPP) [Relative time] 1.00 {INR} Normal [facility] Comment on above: Performed By: #### P TT, PT #### [facility] [address] [place] [address] Dr. Oh Trotter INR GUIDELINES SEE BELOW Normal [facility] Comment on above: Result Comment: ADITHYA RED INR: 2.0 - 3.0 CONDITIONS NOT LISTED BELOW 2.5 - 3.5 FOR PROSTHETIC HEART VALVE REPLACEMENT 2.5 - 3.5 RECURRENT THROMBOSIS Performed By: #### P TT, PT #### [facility] [address] [place] [address] Dr. Oh Trotter PT Coag (PPP) [Time] 10.8 s Normal 9.0-11.6 [facility] Comment on above: Performed By: #### P TT, PT #### [facility] [address] [place] [address] Dr. Oh Trotter PTTon 03-06-2022 aPTT Coag (Bld) [Time] 27.9 s Normal 22.3-36.2 [facility] Comment on above: Performed By: #### P TT, PT #### [facility] [address] [place] [address] Dr. Oh Trotter TROPONIN, HIGH SENSITIVITYon 03-06-2022 HSTROP 7.9 pg/mL Normal 4.0-76.1 [facility] Comment on above: Result Comment: CUT- OFF POINTS HAVE BEEN ESTABLISHED BASED ON THE FOURTH UNIVERSAL DEFINITIONS OF MYOCARDIAL INFARCTION. THE UPPER REFERENCE LIMIT (URL) OF TROPONIN, DEFINED THE 99TH PERCENTILE OF cTnI DISTRIBUTION IN A REFERENCE POPULATION, HAS BEEN CONFIRMED THE DECISION THRESHOLD FOR RI DIAGNOSIS. Performed By: #### L IPA, CMP, HSTROPN #### [facility] [address] [place] [address] Dr. Oh Trotter URINE MICROSCOPIC ONLYon BACTERIA NONE SEEN Normal NONE SEEN [facility] Comment on above: Performed By: #### Marcelo GLOVER UMICRO #### [facility] [address] [place] [address] Dr. Oh Trotter Bacteria identified Cx Nom (U) NOT INDICATED Normal [facility] Comment on above: Performed By: #### Marcelo GLOVER UMICRO #### [facility] [address] [place] [address] Dr. Oh Trotter CAST NONE SEEN Normal NONE SEEN [facility] Comment on above: Performed By: #### Marcelo GLOVER UMICRO #### [facility] [address] [place] [address] Dr. Oh Trotter Crystals LM Nom (Urine sed) NONE SEEN Normal NONE SEEN [facility] Comment on above: Performed By: #### E RUR UMICRO #### [facility] [address] [place] [address] Dr. Oh Trotter Epithelial cells LM Ql (Urine sed) FEW Abnormal NONE SEEN /RARE [facility] Comment on above: Performed By: #### E RUR, UMICRO #### [facility] [address] [place] [address] Dr. Oh Trotter MUCOUS MODERATE Abnormal NONE SEEN [facility] Comment on above: Performed By: #### E RURAUBRIEICRO #### [facility] [address] [address] [address] Oh Trotter RBC 0-2 Normal 0-2 [facility] Comment on above: Performed By: #### E MATHIEU GLOVERRO #### [facility] [address] [address] [address] Oh Trotter WBC NONE SEEN Normal NONE SEEN [facility] Comment on above: Performed By: #### E ADALBERTO UMICRO #### [facility] [address] [address] [address] Oh Trotter XR ABD FLAT UP_PA [...] LUCY JEWELL Date: 2022-03-06 15:55 Normal [facility] XR CSPINE 2_3 VIEWSon 2021 XR [...] by: LUCY JEWELL Date: 2022-03-06 15:54 Normal [facility] CBC AUTO DIFFon 11-02-2021 BASO # 0.0 103/ul Normal 0.0-0.1 [facility] Comment on above: Performed By: #### L IPA, CMP, HSTROPN #### [facility] [address] [place] [address] Dr. Oh Trotter Basophils/100 WBC (Bld) 0.2 % Normal 0.2-2.0 [facility] Comment on above: Performed By: #### L IPA, CMP, HSTROPN #### [facility] [address] [place] [address] Dr. Oh Trotter EO # 0.1 103/ul Normal 0.0-0.7 [facility] Comment on above: Performed By: #### L IPA, CMP, HSTROPN #### [facility] [address] [place] [address] Dr. Oh Trotter Eosinophils/100 WBC (Bld) 1.0 % Normal 0.9-7.0 [facility] Comment on above: Performed By: #### L IPA, CMP, HSTROPN #### [facility] [address] [place] [address] Dr. Oh Trotter Erythrocyte distribution width (RBC) [Ratio] 13.0 % Normal 11.0-15.0 [facility] Comment on above: Performed By: #### L IPA, CMP, HSTROPN #### [facility] [address] [place] [address] Dr. Oh Trotter Hematocrit (Bld) [Volume fraction] 46.6 % Normal 42.0-54.0 [facility] Comment on above: Performed By: #### L IPA, CMP, HSTROPN #### [facility] [address] [place] [address] Dr. Oh Trotter Hemoglobin (Bld) [Mass/Vol] 15.8 g/dL Normal 14.0-18.0 [facility] Comment on above: Performed By: #### L IPA, CMP, HSTROPN #### [facility] [address] [place] [address] Dr. Oh Trotter IG # 0.02 10e3/ul Normal 0.00-0.03 [facility] Comment on above: Performed By: #### L IPA, CMP, HSTROPN #### [facility] [address] [address] [address] Oh Trotter IG % 0.2 % Normal 0.0-0.5 [facility] Comment on above: Performed By: #### L IPA, CMP, HSTROPN #### [facility] [address] [address] [address] Oh Trotter LYMPH # 1.6 103/ul Normal 1.2-3.8 [facility] Comment on above: Performed By: #### L IPA, CMP, HSTROPN #### [facility] [address] [place] [address] Dr. Oh Trotter Lymphocytes/100 WBC (Bld) 15.3 % Critically low 20.5-60.0 [facility] Comment on above: Performed By: #### L IPA, CMP, HSTROPN #### [facility] [address] [place] [address] Dr. Oh Trotter MANUAL DIFF REQ NO Normal [facility] Comment on above: Performed By: #### L IPA, CMP, HSTROPN #### [facility] [address] [place] [address] Dr. Oh Trotter MCH (RBC) [Entitic mass] 30.1 pg Normal 25.9-34.0 [facility] Comment on above: Performed By: #### L IPA, CMP, HSTROPN #### [facility] [address] [place] [address] Dr. Oh Trotter MCHC (RBC) [Mass/Vol] 33.9 g/dL Normal 29.9-35.2 [facility] Comment on above: Performed By: #### L IPA, CMP, HSTROPN #### [facility] [address] [place] [address] Dr. Oh Trotter MCV (RBC) [Entitic vol] 88.8 fL Normal 80.0-94.0 [facility] Comment on above: Performed By: #### L IPA, CMP, HSTROPN #### [facility] [address] [place] [address] Dr. Oh Trotter MONO # 0.7 103/ul Normal 0.3-0.8 [facility] Comment on above: Performed By: #### L IPA, CMP, HSTROPN #### [facility] [address] [place] [address] Dr. Oh Trotter Monocytes/100 WBC (Bld) 6.8 % Normal 1.7-12.0 [facility] Comment on above: Performed By: #### L IPA, CMP, HSTROPN #### [facility] [address] [address] [address] Oh Trotter NEUT # 7.9 103/ul Critically high 1.4-6.5 [facility] Comment on above: Performed By: #### L IPA, CMP, HSTROPN #### [facility] [address] [place] [address] Dr. Oh Trotter Neutrophils/100 WBC (Bld) 76.5 % Critically high 43.0-75.0 [facility] Comment on above: Performed By: #### L IPA, CMP, HSTROPN #### [facility] [address] [place] [address] Dr. Oh Trotter Platelet mean volume (Bld) [Entitic vol] 9.5 fL Normal 9.5-13.5 [facility] Comment on above: Performed By: #### L IPA, CMP, HSTROPN #### [facility] [address] [place] [address] Dr. Oh Trotter PLT 191 103/ul Normal 150-450 [facility] Comment on above: Performed By: #### L IPA, CMP, HSTROPN #### [facility] [address] [place] [address] Dr. Oh Trotter RBC 5.25 106/ul Normal 4.70-6.10 [facility] Comment on above: Performed By: #### L IPA, CMP, HSTROPN #### [facility] [address] [place] [address] Dr. Oh Trotter WBC 10.4 103/ul Normal 4.0-11.0 [facility] Comment on above: Performed By: #### L IPA, CMP, HSTROPN #### [facility] [address] [place] [address] Dr. Oh Trotter PROF CHEM 8 (BAS METB)on Anion gap [Moles/Vol] 9.7 mmol/L Normal [facility] Comment on above: Performed By: #### L IPA, CMP, HSTROPN #### [facility] [address] [address] [address] Oh Trotter Calcium [Mass/Vol] 8.9 mg/dL Normal 8.5-10.1 [facility] Comment on above: Performed By: #### L IPA, CMP, HSTROPN #### [facility] [address] [place] [address] Dr. Oh Trotter Chloride [Moles/Vol] 102 mmol/L Normal 98-107 [facility] Comment on above: Performed By: #### L IPA, CMP, HSTROPN #### [facility] [address] [place] [address] Dr. Oh Trotter CO2 [Moles/Vol] 29.1 mmol/L Normal 21.0-32.0 [facility] Comment on above: Performed By: #### L IPA, CMP, HSTROPN #### [facility] [address] [place] [address] Dr. Oh Trotter Creatinine [Mass/Vol] 1.10 mg/dL Normal 0.70-1.30 [facility] Comment on above: Performed By: #### L IPA, CMP, HSTROPN #### [facility] [address] [place] [address] Dr. Oh Trotter EGFR-AF VINCENTIAN >60 Normal >=60 [facility] Comment on above: Performed By: #### L IPA, CMP, HSTROPN #### [facility] [address] [place] [address] Dr. Oh Trotter EGFR-NON AF VINCENTIAN >60 Normal >=60 [facility] Comment on above: Performed By: #### L IPA, CMP, HSTROPN #### [facility] [address] [place] [address] Dr. Oh Trotter Glucose [Mass/Vol] 114 mg/dL Critically high 74-106 [facility] Comment on above: Performed By: #### L IPA, CMP, HSTROPN #### [facility] [address] [address] [address] Oh Trotter Potassium [Moles/Vol] 3.8 mmol/L Normal 3.5-5.1 [facility] Comment on above: Performed By: #### L IPA, CMP, HSTROPN #### [facility] [address] [address] [address] Oh Trotter Sodium [Moles/Vol] 137 mmol/L Normal 136-145 [facility] Comment on above: Performed By: #### L IPA, CMP, HSTROPN #### [facility] [address] [address] [address] Oh Trotter Urea nitrogen [Mass/Vol] 10.0 mg/dL Normal 7.0-18.0 [facility] Comment on above: Performed By: #### L IPA, CMP, HSTROPN #### [facility] [address] [address] [address] Oh Trotter Urea nitrogen/Creatinine [Mass ratio] 9.1 mg/mg Normal [facility] Comment on above: Performed By: #### L IPA, CMP, HSTROPN #### [facility] [address] [address] [address] Oh Trotter CARDIAC SUKUMAR ADMITon 022 CK [Catalytic activity/Vol] 97 U/L Normal 39-308 [facility] Comment on above: Performed By: #### L IPA, CMP, HSTROPN #### [facility] [address] [address] [address] Oh Trotter CK.MB [Mass/Vol] 0.75 ng/mL Normal <=3.60 [facility] Comment on above: Performed By: #### L IPA, CMP, HSTROPN #### [facility] [address] [address] [address] Oh Trotter HSTROP 4.4 pg/mL Normal 4.0-76.1 [facility] Comment on above: Result Comment: CUT- OFF POINTS HAVE BEEN ESTABLISHED BASED ON THE FOURTH UNIVERSAL DEFINITIONS OF MYOCARDIAL INFARCTION. THE UPPER REFERENCE LIMIT (URL) OF TROPONIN, DEFINED THE 99TH PERCENTILE OF cTnI DISTRIBUTION IN A REFERENCE POPULATION, HAS BEEN CONFIRMED THE DECISION THRESHOLD FOR RI DIAGNOSIS. Performed By: #### L IPA, CMP, HSTROPN #### [facility] [address] [place] [address] Dr. Oh Trotter CARON 54 ng/mL Normal 16-96 [facility] Comment on above: Performed By: #### L IPA, CMP, HSTROPN #### [facility] [address] [place] [address] Dr. Oh Trotter CBC AUTO DIFFon 10-16-2021 BASO # 0.0 103/ul Normal 0.0-0.1 [facility] Comment on above: Performed By: #### P TT, PT #### [facility] [address] [place] [address] Dr. Oh Trotter Basophils/100 WBC (Bld) 0.1 % Critically low 0.2-2.0 [facility] Comment on above: Performed By: #### P TT, PT #### [facility] [address] [place] [address] Dr. Oh Trotter EO # 0.0 103/ul Normal 0.0-0.7 [facility] Comment on above: Performed By: #### P TT, PT #### [facility] [address] [place] [address] Dr. Oh Trotter Eosinophils/100 WBC (Bld) 0.3 % Critically low 0.9-7.0 [facility] Comment on above: Performed By: #### P TT, PT #### [facility] [address] [place] [address] Dr. Oh Trotter Erythrocyte distribution width (RBC) [Ratio] 12.5 % Normal 11.0-15.0 [facility] Comment on above: Performed By: #### P TT, PT #### [facility] [address] [place] [address] Dr. Oh Trotter Hematocrit (Bld) [Volume fraction] 47.1 % Normal 42.0-54.0 [facility] Comment on above: Performed By: #### P TT, PT #### [facility] [address] [place] [address] Dr. Oh Trotter Hemoglobin (Bld) [Mass/Vol] 16.7 g/dL Normal 14.0-18.0 [facility] Comment on above: Performed By: #### P TT, PT #### [facility] [address] [place] [address] Dr. Oh Trotter IG # 0.02 10e3/ul Normal 0.00-0.03 [facility] Comment on above: Performed By: #### P TT, PT #### [facility] [address] [place] [address] Dr. Oh Trotter IG % 0.3 % Normal 0.0-0.5 [facility] Comment on above: Performed By: #### P TT, PT #### [facility] [address] [place] [address] Dr. Oh Trotter LYMPH # 2.3 103/ul Normal 1.2-3.8 [facility] Comment on above: Performed By: #### P TT, PT #### [facility] [address] [place] [address] Dr. Oh Trotter Lymphocytes/100 WBC (Bld) 31.7 % Normal 20.5-60.0 [facility] Comment on above: Performed By: #### P TT, PT #### [facility] [address] [place] [address] Dr. Oh Trotter MANUAL DIFF REQ NO Normal [facility] Comment on above: Performed By: #### P TT, PT #### [facility] [address] [place] [address] Dr. Oh Trotter MCH (RBC) [Entitic mass] 29.9 pg Normal 25.9-34.0 [facility] Comment on above: Performed By: #### P TT, PT #### [facility] [address] [place] [address] Dr. Oh Trotter MCHC (RBC) [Mass/Vol] 35.5 g/dL Critically high 29.9-35.2 [facility] Comment on above: Performed By: #### P TT, PT #### [facility] [address] [address] [address] Oh Trotter MCV (RBC) [Entitic vol] 84.4 fL Normal 80.0-94.0 [facility] Comment on above: Performed By: #### P TT, PT #### [facility] [address] [address] [address] Oh Trotter MONO # 0.4 103/ul Normal 0.3-0.8 [facility] Comment on above: Performed By: #### P TT, PT #### [facility] [address] [place] [address] Dr. Oh Trotter Monocytes/100 WBC (Bld) 4.9 % Normal 1.7-12.0 [facility] Comment on above: Performed By: #### P TT, PT #### [facility] [address] [place] [address] Dr. Oh Trotter NEUT # 4.6 103/ul Normal 1.4-6.5 [facility] Comment on above: Performed By: #### P TT, PT #### [facility] [address] [place] [address] Dr. Oh Trotter Neutrophils/100 WBC (Bld) 62.7 % Normal 43.0-75.0 [facility] Comment on above: Performed By: #### P TT, PT #### [facility] [address] [address] [address] Oh Trotter Platelet mean volume (Bld) [Entitic vol] 10.3 fL Normal 9.5-13.5 [facility] Comment on above: Performed By: #### P TT, PT #### [facility] [address] [place] [address] Dr. Oh Trotter PLT 225 103/ul Normal 150-450 [facility] Comment on above: Performed By: #### P TT, PT #### [facility] [address] [place] [address] Dr. Oh Trotter RBC 5.58 106/ul Normal 4.70-6.10 [facility] Comment on above: Performed By: #### P TT, PT #### [facility] [address] [place] [address] Dr. Oh Trotter WBC 7.3 103/ul Normal 4.0-11.0 [facility] Comment on above: Performed By: #### P TT, PT #### [facility] [address] [place] [address] Dr. Oh rTotter D-DIMERon 10-16-2021 D-DIMER <0.19 Normal <=0.59 [facility] Comment on above: Performed By: #### P TT, PT #### [facility] [address] [place] [address] Dr. Oh Trotter D-DIMER COMMENTS SEE BELOW Normal [facility] Comment on above: Result Comment: [...] Performed By: #### P TT, PT #### [facility] [address] [place] [address] Dr. Oh Trotter LIPASEon 10-16-2021 Lipase [Catalytic activity/Vol] 127.0 U/L Normal 73.0-393.0 [facility] Comment on above: Performed By: #### L IPA, CMP, HSTROPN #### [facility] [address] [place] [address] Dr. Oh Trotter PROF 14(COMP METB)on 022 Albumin [Mass/Vol] 4.0 g/dL Normal 3.4-5.0 [facility] Comment on above: Performed By: #### L IPA, CMP, HSTROPN #### [facility] [address] [address] [address] Oh Trotter Albumin/Globulin [Mass ratio] 0.9 {ratio} Normal [facility] Comment on above: Performed By: #### L IPA, CMP, HSTROPN #### [facility] [address] [address] [address] Oh Trotter ALP [Catalytic activity/Vol] 73 U/L Normal 46-116 [facility] Comment on above: Performed By: #### L IPA, CMP, HSTROPN #### [facility] [address] [address] [address] Oh Trotter ALT [Catalytic activity/Vol] 45 U/L Normal 16-63 [facility] Comment on above: Performed By: #### L IPA, CMP, HSTROPN #### [facility] [address] [place] [address] Dr. Oh Trotter Anion gap [Moles/Vol] 15.4 mmol/L Normal [facility] Comment on above: Performed By: #### L IPA, CMP, HSTROPN #### [facility] [address] [address] [address] Oh Trotter AST [Catalytic activity/Vol] 25 U/L Normal 15-37 [facility] Comment on above: Performed By: #### L IPA, CMP, HSTROPN #### [facility] [address] [address] [address] Oh Trotter Bilirubin [Mass/Vol] 0.9 mg/dL Normal 0.2-1.0 [facility] Comment on above: Performed By: #### L IPA, CMP, HSTROPN #### [facility] [address] [address] [address] Oh Trotter Calcium [Mass/Vol] 9.3 mg/dL Normal 8.5-10.1 [facility] Comment on above: Performed By: #### L IPA, CMP, HSTROPN #### [facility] [address] [address] [address] Oh Trotter Chloride [Moles/Vol] 103 mmol/L Normal 98-107 [facility] Comment on above: Performed By: #### L IPA, CMP, HSTROPN #### [facility] [address] [address] [address] Oh Trotter CO2 [Moles/Vol] 20.4 mmol/L Critically low 21.0-32.0 [facility] Comment on above: Performed By: #### L IPA, CMP, HSTROPN #### [facility] [address] [address] [address] Oh Trotter Creatinine [Mass/Vol] 1.17 mg/dL Normal 0.70-1.30 [facility] Comment on above: Performed By: #### L IPA, CMP, HSTROPN #### [facility] [address] [place] [address] Dr. Oh Trotter EGFR-AF VINCENTIAN >60 Normal >=60 [facility] Comment on above: Performed By: #### L IPA, CMP, HSTROPN #### [facility] [address] [place] [address] Dr. Oh Trotter EGFR-NON AF VINCENTIAN >60 Normal >=60 [facility] Comment on above: Performed By: #### L IPA, CMP, HSTROPN #### [facility] [address] [place] [address] Dr. Oh Trotter Globulin (S) [Mass/Vol] 4.6 g/dL Normal [facility] Comment on above: Performed By: #### L IPA, CMP, HSTROPN #### [facility] [address] [place] [address] Dr. Oh Trotter Glucose [Mass/Vol] 127 mg/dL Critically high 74-106 [facility] Comment on above: Performed By: #### L IPA, CMP, HSTROPN #### [facility] [address] [place] [address] Dr. Oh Trotter Potassium [Moles/Vol] 3.8 mmol/L Normal 3.5-5.1 [facility] Comment on above: Performed By: #### L IPA, CMP, HSTROPN #### [facility] [address] [address] [address] Oh Trotter Protein [Mass/Vol] 8.6 g/dL Critically high 6.4-8.2 [facility] Comment on above: Performed By: #### L IPA, CMP, HSTROPN #### [facility] [address] [place] [address] Dr. Oh Trotter Sodium [Moles/Vol] 135 mmol/L Critically low 136-145 [facility] Comment on above: Performed By: #### L IPA, CMP, HSTROPN #### [facility] [address] [place] [address] Dr. Oh Trotter Urea nitrogen [Mass/Vol] 12.0 mg/dL Normal 7.0-18.0 [facility] Comment on above: Performed By: #### L IPA, CMP, HSTROPN #### [facility] [address] [place] [address] Dr. Oh Trotter Urea nitrogen/Creatinine [Mass ratio] 10.3 mg/mg Normal [facility] Comment on above: Performed By: #### L IPA, CMP, HSTROPN #### [facility] [address] [place] [address] Dr. Oh Trotter XR CHEST 1 Von [...] GALDINO ARROYO Date: 2021-10-16 13:09 Normal [facility] BNPon 09-15-2021 Natriuretic peptide B (Bld) [Mass/Vol] 9.0 pg/mL Normal <=450.0 [facility] Comment on above: Performed By: #### H STROPN, TSH, BNP, CMP #### [facility] [address] [place] [address] Dr. Oh Trotter CBC AUTO DIFFon 09-15-2021 BASO # 0.0 103/ul Normal 0.0-0.1 [facility] Comment on above: Performed By: #### L IPA, CMP, HSTROPN #### [facility] [address] [place] [address] Dr. Oh Trotter Basophils/100 WBC (Bld) 0.1 % Critically low 0.2-2.0 [facility] Comment on above: Performed By: #### L IPA, CMP, HSTROPN #### [facility] [address] [place] [address] Dr. Oh Trotter EO # 0.1 103/ul Normal 0.0-0.7 [facility] Comment on above: Performed By: #### L IPA, CMP, HSTROPN #### [facility] [address] [place] [address] Dr. Oh Trotter Eosinophils/100 WBC (Bld) 0.6 % Critically low 0.9-7.0 [facility] Comment on above: Performed By: #### L IPA, CMP, HSTROPN #### [facility] [address] [place] [address] Dr. Oh Trotter Erythrocyte distribution width (RBC) [Ratio] 12.5 % Normal 11.0-15.0 [facility] Comment on above: Performed By: #### L IPA, CMP, HSTROPN #### [facility] [address] [place] [address] Dr. Oh Trotter Hematocrit (Bld) [Volume fraction] 48.3 % Normal 42.0-54.0 [facility] Comment on above: Performed By: #### L IPA, CMP, HSTROPN #### [facility] [address] [place] [address] Dr. Oh Trotter Hemoglobin (Bld) [Mass/Vol] 16.7 g/dL Normal 14.0-18.0 [facility] Comment on above: Performed By: #### L IPA, CMP, HSTROPN #### [facility] [address] [address] [address] Oh Trotter IG # 0.01 10e3/ul Normal 0.00-0.03 [facility] Comment on above: Performed By: #### L IPA, CMP, HSTROPN #### [facility] [address] [place] [address] Dr. Oh Trotter IG % 0.1 % Normal 0.0-0.5 [facility] Comment on above: Performed By: #### L IPA, CMP, HSTROPN #### [facility] [address] [place] [address] Dr. Oh Trotter LYMPH # 3.5 103/ul Normal 1.2-3.8 [facility] Comment on above: Performed By: #### L IPA, CMP, HSTROPN #### [facility] [address] [place] [address] Dr. Oh Trotter Lymphocytes/100 WBC (Bld) 38.8 % Normal 20.5-60.0 [facility] Comment on above: Performed By: #### L IPA, CMP, HSTROPN #### [facility] [address] [place] [address] Dr. Oh Trotter MANUAL DIFF REQ NO Normal [facility] Comment on above: Performed By: #### L IPA, CMP, HSTROPN #### [facility] [address] [place] [address] Dr. Oh Trotter MCH (RBC) [Entitic mass] 29.3 pg Normal 25.9-34.0 [facility] Comment on above: Performed By: #### L IPA, CMP, HSTROPN #### [facility] [address] [place] [address] Dr. Oh Trotter MCHC (RBC) [Mass/Vol] 34.6 g/dL Normal 29.9-35.2 [facility] Comment on above: Performed By: #### L IPA, CMP, HSTROPN #### [facility] [address] [place] [address] Dr. Oh Trotter MCV (RBC) [Entitic vol] 84.9 fL Normal 80.0-94.0 [facility] Comment on above: Performed By: #### L IPA, CMP, HSTROPN #### [facility] [address] [place] [address] Dr. Oh Trotter MONO # 0.5 103/ul Normal 0.3-0.8 [facility] Comment on above: Performed By: #### L IPA, CMP, HSTROPN #### [facility] [address] [place] [address] Dr. Oh Trotter Monocytes/100 WBC (Bld) 5.4 % Normal 1.7-12.0 [facility] Comment on above: Performed By: #### L IPA, CMP, HSTROPN #### [facility] [address] [place] [address] Dr. Oh Trotter NEUT # 4.9 103/ul Normal 1.4-6.5 [facility] Comment on above: Performed By: #### L IPA, CMP, HSTROPN #### [facility] [address] [place] [address] Dr. Oh Trotter Neutrophils/100 WBC (Bld) 55.0 % Normal 43.0-75.0 [facility] Comment on above: Performed By: #### L IPA, CMP, HSTROPN #### [facility] [address] [place] [address] Dr. Oh Trotter Platelet mean volume (Bld) [Entitic vol] 9.7 fL Normal 9.5-13.5 [facility] Comment on above: Performed By: #### L IPA, CMP, HSTROPN #### [facility] [address] [place] [address] Dr. Oh Trotter PLT 227 103/ul Normal 150-450 [facility] Comment on above: Performed By: #### L IPA, CMP, HSTROPN #### [facility] [address] [place] [address] Dr. Oh Trotter RBC 5.69 106/ul Normal 4.70-6.10 [facility] Comment on above: Performed By: #### L IPA, CMP, HSTROPN #### [facility] [address] [address] [address] Oh Trotter WBC 8.9 103/ul Normal 4.0-11.0 [facility] Comment on above: Performed By: #### L IPA, CMP, HSTROPN #### [facility] [address] [address] [address] Oh Trotter D-DIMERon 09-15-2021 D-DIMER 0.19 mg/L FEU Normal <=0.59 [facility] Comment on above: Performed By: #### L IPA, CMP, HSTROPN #### [facility] [address] [address] [address] Oh Trotter D-DIMER COMMENTS SEE BELOW Normal [facility] Comment on above: Result Comment: [...] By: #### L IPA, CMP, HSTROPN #### [facility] [address] [place] [address] Dr. Oh Trotter PROF 14(COMP METB)on 022 Albumin [Mass/Vol] 3.9 g/dL Normal 3.4-5.0 [facility] Comment on above: Performed By: #### H STROPN, TSH, BNP, CMP #### [facility] [address] [address] [address] Oh Trotter Albumin/Globulin [Mass ratio] 0.8 {ratio} Normal [facility] Comment on above: Performed By: #### H STROPN, TSH, BNP, CMP #### [facility] [address] [place] [address] Dr. Oh Trotter ALP [Catalytic activity/Vol] 73 U/L Normal 46-116 [facility] Comment on above: Performed By: #### H STROPN, TSH, BNP, CMP #### [facility] [address] [address] [address] Oh Trotter ALT [Catalytic activity/Vol] 48 U/L Normal 16-63 [facility] Comment on above: Performed By: #### H STROPN, TSH, BNP, CMP #### [facility] [address] [address] [address] Oh Trotter Anion gap [Moles/Vol] 14.9 mmol/L Normal [facility] Comment on above: Performed By: #### H STROPN, TSH, BNP, CMP #### [facility] [address] [address] [address] Oh Trotter AST [Catalytic activity/Vol] 22 U/L Normal 15-37 [facility] Comment on above: Performed By: #### H STROPN, TSH, BNP, CMP #### [facility] [address] [place] [address] Dr. Oh Trotter Bilirubin [Mass/Vol] 0.4 mg/dL Normal 0.2-1.0 [facility] Comment on above: Performed By: #### H STROPN, TSH, BNP, CMP #### [facility] [address] [place] [address] Dr. Oh Trotter Calcium [Mass/Vol] 9.2 mg/dL Normal 8.5-10.1 [facility] Comment on above: Performed By: #### H STROPN, TSH, BNP, CMP #### [facility] [address] [address] [address] Oh Trotter Chloride [Moles/Vol] 102 mmol/L Normal 98-107 [facility] Comment on above: Performed By: #### H STROPN, TSH, BNP, CMP #### [facility] [address] [place] [address] Dr. Oh Trotter CO2 [Moles/Vol] 23.7 mmol/L Normal 21.0-32.0 [facility] Comment on above: Performed By: #### H STROPN, TSH, BNP, CMP #### [facility] [address] [address] [address] Oh Trotter Creatinine [Mass/Vol] 1.14 mg/dL Normal 0.70-1.30 [facility] Comment on above: Performed By: #### H STROPN, TSH, BNP, CMP #### [facility] [address] [address] [address] Oh Trotter EGFR-AF VINCENTIAN >60 Normal >=60 [facility] Comment on above: Performed By: #### H STROPN, TSH, BNP, CMP #### [facility] [address] [address] [address] Oh Trotter EGFR-NON AF VINCENTIAN >60 Normal >=60 [facility] Comment on above: Performed By: #### H STROPN, TSH, BNP, CMP #### [facility] [address] [place] [address] Dr. Oh Trotter Globulin (S) [Mass/Vol] 4.7 g/dL Normal [facility] Comment on above: Performed By: #### H STROPN, TSH, BNP, CMP #### [facility] [address] [address] [address] Oh Trotter Glucose [Mass/Vol] 120 mg/dL Critically high 74-106 [facility] Comment on above: Performed By: #### H STROPN, TSH, BNP, CMP #### [facility] [address] [place] [address] Dr. Oh Trotter Potassium [Moles/Vol] 3.6 mmol/L Normal 3.5-5.1 [facility] Comment on above: Performed By: #### H STROPN, TSH, BNP, CMP #### [facility] [address] [place] [address] Dr. Oh Trotter Protein [Mass/Vol] 8.6 g/dL Critically high 6.4-8.2 [facility] Comment on above: Performed By: #### H STROPN, TSH, BNP, CMP #### [facility] [address] [place] [address] Dr. Oh Trotter Sodium [Moles/Vol] 137 mmol/L Normal 136-145 [facility] Comment on above: Performed By: #### H STROPN, TSH, BNP, CMP #### [facility] [address] [address] [address] Oh Trotter Urea nitrogen [Mass/Vol] 12.0 mg/dL Normal 7.0-18.0 [facility] Comment on above: Performed By: #### H STROPN, TSH, BNP, CMP #### [facility] [address] [place] [address] Dr. Oh Trotter Urea nitrogen/Creatinine [Mass ratio] 10.5 mg/mg Normal [facility] Comment on above: Performed By: #### H STROPN, TSH, BNP, CMP #### [facility] [address] [place] [address] Dr. Oh Trotter PROTIMEon 09-15-2021 INR Coag (PPP) [Relative time] 0.94 {INR} Normal [facility] Comment on above: Performed By: #### L IPA, CMP, HSTROPN #### [facility] [address] [place] [address] Dr. Oh Trotter INR GUIDELINES SEE BELOW Normal [facility] Comment on above: Result Comment: ADITHYA RED INR: 2.0 - 3.0 CONDITIONS NOT LISTED BELOW 2.5 - 3.5 FOR PROSTHETIC HEART VALVE REPLACEMENT 2.5 - 3.5 RECURRENT THROMBOSIS Performed By: #### L IPA, CMP, HSTROPN #### [facility] [address] [place] [address] Dr. Oh Trotter PT Coag (PPP) [Time] 10.2 s Normal 9.0-11.6 [facility] Comment on above: Performed By: #### L IPA, CMP, HSTROPN #### [facility] [address] [place] [address] Dr. Oh Trotter PTTon 09-15-2021 aPTT Coag (Bld) [Time] 26.6 s Normal 22.3-36.2 [facility] Comment on above: Performed By: #### L IPA, CMP, HSTROPN #### [facility] [address] [place] [address] Dr. Oh Trotter TROPONIN, HIGH SENSITIVITYon 09-15-2021 HSTROP 3.4 pg/mL Critically low 4.0-76.1 [facility] Comment on above: Result Comment: CUT- OFF POINTS HAVE BEEN ESTABLISHED BASED ON THE FOURTH UNIVERSAL DEFINITIONS OF MYOCARDIAL INFARCTION. THE UPPER REFERENCE LIMIT (URL) OF TROPONIN, DEFINED THE 99TH PERCENTILE OF cTnI DISTRIBUTION IN A REFERENCE POPULATION, HAS BEEN CONFIRMED THE DECISION THRESHOLD FOR RI DIAGNOSIS. Performed By: #### P TT, PT #### [facility] [address] [address] [address] Oh Trotter TSHon 09-15-2021 TSH 1.085 uIU/mL Normal 0.358-3.740 [facility] Comment on above: Performed By: #### H STROPN, TSH, BNP, CMP #### [facility] [address] [address] [address] Oh Trotter TSH RANGE SEE BELOW Normal [facility] Comment on above: Result Comment: <0.3 4 UIU/ml HYPERTHYROID 0.34-5.60 UIU/ml EUTHYROID >5.60 UIU/ml HYPOTHYROID Performed By: #### H STROPN, TSH, BNP, CMP #### [facility] [address] [address] [address] Oh Trotter XR ABD FLAT UP_PA [...] OTTO POLANCO Date: 2021-09-15 19:35 Normal [facility] XR CHEST 1 Von 09-07-2021 XR [...] by: ELIZABETH TURNER Date: 2021-09-06 23:38 Normal [facility] Vital Signs Date Time Vital Sign Value Performing Clinician Radha casas 12-21-2023 15:26-0400 Blood Pressure Location Lucy BEY [facility] 12-21-2023 15:26-0400 Diastolic blood pressure 88 mm[Hg] Lucy BEY [facility] 12-21-2023 15:26-0400 Heart rate 80 /min Lucy BEY [facility] 12-21-2023 15:26-0400 Respiratory rate 16 /min Lucy BEY [facility] 12-21-2023 15:26-0400 Systolic blood pressure 120 mm[Hg] Lucy BEY [facility] Encounters Encounter Date Encounter Type Care Provider Facility Start: 03-14-2024 End: 03-14-2024 ambulatory [facility] Start: 02-29-2024 ambulatory CAPO TAFOYA [facility] Start: 02-29-2024 End: 02-29-2024 ambulatory [facility] Start: 02-23-2024 End: 02-23-2024 ambulatory [facility] Start: 12-21-2023 End: 12-21-2023 ambulatory Lucy BEY Facility:[facility] Start: 12-21-2023 End: 12-21-2023 Patient encounter procedure Lucy BEY [facility] Start: 08-09-2022 End: 08-09-2022 ambulatory LEIGHANN SORIANO Facility:[facility] Start: 07-28-2022 End: 07-29-2022 ambulatory LEIGHNAN SORIANO Facility:[facility] Start: 06-24-2022 End: 06-24-2022 ambulatory [...] influenza virus vaccine, unspecified formulation Lucy BEY [facility] Payers Date Payer Category Payer Unknown [id number] 2.16.84 [id number] 1987 Unknown [id number] 2.16.84 [id number] 1987 Unknown [id number] 2.16.84 [id number] 1987 Unknown [id number] 2.16.84 [id number] 1987 Unknown [id number] 2.16.84 [id number] 1987 Unknown [id number] 2.16.84 [id number] 1987 Unknown [id number] 2.16.84 0.1.903082.3.579.2.593 1987 Unknown [id number] 2.16.84 0.1.557528.3.579.2.593 1987 Unknown [id number] 2.16.84 0.1.041752.3.579.2.593 1987 Unknown [id number] 2.16.84 [id number] 1987 Unknown [id number] 2.16.84 [id number] 1987 Unknown [id number] 2.16.84 0.1.658060.3.579.2.593 1987 Unknown [id number] 2.16.84 0.1.490105.3.579.2.593 1987 Unknown [id number] 2.16.8 [id number] 1959 Unknown [id number] Social History Date Type Detail Facility Start: 12-21-2023 Tobacco smoking status Heavy t obacco smoker (finding) [facility] Tobacco smoking status Never [facility] Sex Assigned At Male [facility] Functional Status Date Assessment Result Facility 12-21-2023 Functional Status N/A [facility] [place] Progress note 03-14-2024 Note Date & Type [...] past 36 hour(s)). No follow-ups on file. [facility] Clinical Note 02-29-2024 Note Date & Type Note Facility 02-29-2024 Note Patient: Chuck arriaza Procedure Summary Date: 02/29/24 Room / Location: [facility] OPERATING ROOM 02 / [facility] Operating Room Anesthesia Start: 755 Anesthesia Stop: [...] per anesthesia protocol. No notable events documented. [facility] Procedure note 02-29-2024 Note Date & Type Note Facility 02-29-2024 Note Airway Date/Time: 02/29/2024 8:07 AM Urgency: elective General Information and Staff Patient location during procedure: OR Anesthesiologist: Capo Tafoya MD Resident/DIAMOND WHEEL MOLDER/CAA: Facundo Rudolph MD Performed: resident/DIAMOND WHEEL MOLDER/CAA Indications and Patient Condition Indications for airway [...] 1 Number of other approaches attempted: 0 [facility] Clinical Note 02-28-2024 Note Date & Type Note Facility 02-28-2024 Note Patient: Chuck arriaza Procedure Information Date/Time: 02/29/24729 Procedures: EXAM UNDER ANESTHESIA, HEMORRHOIDECTOMY, DEBRIDMENT OF ANAL FISSURE Location: [facility] OPERATING ROOM 02 / [facility] Operating Room Surgeons: Urbano Rodriguez MD Relevant Problems Cardio (+) Migraines (+) Quocq-Ssiqixbfo-Mfqna syndrome GI (+) GERD (gastroesophageal reflux disease) [...] Depression GERD (gastroesophageal reflux disease) Morbid Obesity Ligtz-Tpfefmjoe-Mnnlh syndrome, treated with ablation as teenager, without [...] with attending and resident. 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 Do not wear perfume, make-up, nail arabic, or lotions on the day of your [...] need to make any changes, please call [phone]. Notify your surgeon if you develop any illness such as a cold, cough, fever, sore throat or vomiting between now and your surgery. Thank you for entrusting us with your care. [facility] Surgical Services Team [facility] Progress note 02-23-2024 Note Date & [...] past 36 hour(s)). No follow-ups on file. [facility] Clinical Note 06-24-2022 Note Date & [...] good condition. CC: Leighann Soriano CNP [facility] Evaluation + Plan note Note Date & Type Note Facility Evaluation + Plan note No data available for this section [facility] Hospital Discharge instructions Note Date & Type Note Facility Hospital Discharge instructions No data available for this section [facility] Progress note Note Date & Type Note Facility Progress note No data available for this section [facility] Summary Purpose Family History No [...] section and content) DATE CREATED AUTHOR 08/11/2022 [facility] DATE CREATED AUTHOR AUTHOR'S ORGANIZ ATION 12/27/2023 [facility] DATE CREATED AUTHOR AUTHOR'S ORGANIZ ATION 03/16/2024 [facility] Patient Care team informatio n (unrecognized section and content) Personnel Name: LEIGHANN SORIANO CNP Address: Address: [address] [place], [place] [address] FOR RECORDS PERTAINING TO PATIENTS WHO ARE [...] BE BASED ON THE PRIMARY CLINICAL RECORDS. [employer] [facility]. provides no warranty or guarantee of the accuracy or completeness of information in this document.
[2024-07-30 14:29] LABS: Basophils Percent Auto 0.3 % (0.2-2.0); Eosinophils Percent Auto 0.3 % (0.9-7.0); Hematocrit 42.1 % (42.0-54.0); Immature Granulocytes Abs Auto 0.02 10^3/uL (0.00-0.03); Immature Granulocytes Pct Auto 0.3 % (0.0-0.5); Lymphocytes Absolute Auto 1.8 10^3/uL (1.2-3.8); Lymphocytes Percent Auto 23.8 % (20.5-60.0); Mean Corpuscular HGB Conc 35.6 g/dL (29.9-35.2); Mean Corpuscular Hemoglobin 30.4 pg (25.9-34.0); Mean Corpuscular Volume 85.4 fL (80.0-94.0); Mean Platelet Volume 9.6 fL (9.5-13.5); Monocytes Absolute Auto 0.4 10^3/uL (0.3-0.8); Monocytes Percent Auto 5.4 % (1.7-12.0); Neutrophils Absolute Auto 5.2 10^3/uL (1.4-6.5); Neutrophils Percent Auto 69.9 % (43.0-75.0); Platelet Count 219 10^3/uL (150-450); Red Blood Count 4.93 10^6/uL (4.70-6.10); Red Cell Distribution Width 12.6 % (11.0-15.0); White Blood Count 7.4 10^3/uL (4.0-11.0)
[2024-07-30 14:40] LABS: Anion Gap 12.7; BUN Creatinine Ratio 11.8; Calcium 8.9 mg/dL (8.5-10.1); Carbon Dioxide 27.3 mmol/L (21.0-32.0); Chloride 103 mmol/L (98-107); Estimated GFR (African America >60 (>=60 mL/min/1.73m^2); Estimated GFR (Non-African Ame >60 (>=60 mL/min/1.73m^2); Glucose 189 mg/dL (74-106); Sodium 139 mmol/L (136-145)
[2024-07-30 14:53] VITALS: BP 138/86; PULSE 93; O2SAT 96
== END 2024-07-30 14:55 | disposition home or self-care (01) ==
PROVIDERS: Emergency Provider Emergency Medicine; PCP Nurse Practitioner Family
DX: R53.1 Weakness (principal); F17.200 Nicotine dependence, unspecified, uncomplicated; Z79.899 Other long term (current) drug therapy
CPT/HCPCS: 36415; 80048; 85025; 93005; 99284

== ENCOUNTER 2025-01-17 13:31 | Emergency (ER) | payer SELFPAY ==
--- OUTSIDE RECORDS SUMMARY | 2024-08-08 09:30 | XMS_ITS ---
Author Organization The [facility] in [place] Address [address] [place] [address] Care Team Providers Care Rail Car Painter/Sandblaster Name Role Phone Leighann Mahoney Primary Care Provider [phone] REASON FOR VISIT STILL SICK Encounters Encounter Location Date Provider Diagnosis [facility] [address] [facility] [place] [address] 08/08/2024 Leighann Mahoney Plan Of Treatment No Information Progress Notes * Genesis PACKEROB:1985 (39 yo M)Acc No.[id number]:08/08/2024 UNLOCKED PROGRESS NOTE Progress Note Patient: Tristin CARL Provider: Phan Mahoney CNP (TTC) :1985 A ge:38 Y S ex:Male Date:08/08/2024 Address:[address] [place] [address], [address], [place], [place] Subjective: * Chief Complaints: * 1 . STILL SICK. * Medical History: Objective: * Vitals: Assessment: Plan: * Treatment: * * Electronic signature of Leticia Gant NP, MOVIE SHOT CAMERAMAN.SKULL GRINDER.[id number] on 01/17/2025 at 01:37 PM EDT Sign off status: Pending Visit Status: O FF CANC (OFFICE CANCEL) * Provider: Phan Mahoney CNP (TTC) Date: 0 08/08/2024 Generated for Maximus ny/Basil/eTransmitting on: 0 01/17/2025 01:37 PM EDT
[2025-01-17] VITALS (15 sets, daily range): BP systolic 124–148; BP diastolic 74–93; PULSE 75–92; TEMP 36.3; O2SAT 95–100; BMI 39.4
--- OUTSIDE RECORDS SUMMARY | 2025-01-17 13:38 | XMS_ITS | Patient Health Record ---
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 Name Role Phone Leighann Mahoney Primary Care Provider [phone] [place] [phone] Allergies Allergen (clinical drug ingredient) Drug/Non Drug Allergy documented on EMR Reaction Allergy Type Onset Date Status erythromycin Erythromycin Base hives Drug Allergy Active penicillin V Penicillin V Potassium hives Drug Allergy Active Results Component Value Reference Range Notes PROF CHEM 8 (BAS METB) Reviewed date:02/28/2024 08:49:58 AM Interpretation: Performing Lab: Notes/Report: [facility] , Sodium 141 136-145 mmol/L Potassium 4.3 3.5-5.1 mmol/L Chloride 105 98-107 mmol/L Carbon Dioxide 28.0 21.0-32.0 mmol/L Anion Gap 12.3 Glucose 152 74-106 mg/dL Blood Urea Nitrogen 11.0 7.0-18.0 mg/dL Creatinine 1.20 0.70-1.30 mg/dL Estimated GFR ( Anupama >60 >=60 mL/min/1.73m 2 Estimated GFR (Non- Tia >60 >=60 mL/min/1.73m 2 BUN Creatinine Ratio 9.2 Calcium 9.1 8.5-10.1 mg/dL Performing Lab: see note ML - [facility] LB CBC AUTO DIFF Reviewed date:08/06/2024 09:47:04 PM Interpretation: Performing Lab: Notes/Report: [facility] , White Blood Count 7.4 4.0-11.0 10 3/uL Red Blood Count 4.93 4.70-6.10 10 6/uL Hemoglobin 15.0 14.0-18.0 g/dL Hematocrit 42.1 42.0-54.0 % Mean Corpuscular Volume 85.4 80.0-94.0 fL Mean Corpuscular Hemoglobin 30.4 25.9-34.0 pg Mean Corpuscular HGB Conc 35.6 29.9-35.2 g/dL Red Cell Distribution Width 12.6 11.0-15.0 % Platelet Count 219 150-450 10 3/uL Mean Platelet Volume 9.6 9.5-13.5 fL Neutrophils Percent Auto 69.9 43.0-75.0 % Lymphocytes Percent Auto 23.8 20.5-60.0 % Monocytes Percent Auto 5.4 1.7-12.0 % Eosinophils Percent Auto 0.3 0.9-7.0 % Basophils Percent Auto 0.3 0.2-2.0 % Immature Granulocytes Pct Auto 0.3 0.0-0.5 % Neutrophils Absolute Auto 5.2 1.4-6.5 10 3/uL Lymphocytes Absolute Auto 1.8 1.2-3.8 10 3/uL Monocytes Absolute Auto 0.4 0.3-0.8 10 3/uL Eosinophils Absolute Auto 0.0 0.0-0.7 10 3/uL Basophils Absolute Auto 0.0 0.0-0.1 10 3/uL Immature Granulocytes Abs Auto 0.02 0.00-0.03 10 3/uL Performing Lab: see note ML - [facility] LB PROF CHEM 8 (BAS METB) Reviewed date:08/06/2024 09:47:04 PM Interpretation: Performing Lab: Notes/Report: [facility] , Sodium 139 136-145 mmol/L Potassium 4.0 3.5-5.1 mmol/L Chloride 103 98-107 mmol/L Carbon Dioxide 27.3 21.0-32.0 mmol/L Anion Gap 12.7 Glucose 189 74-106 mg/dL Blood Urea Nitrogen 13.0 7.0-18.0 mg/dL Creatinine 1.10 0.70-1.30 mg/dL Estimated GFR ( Anupama >60 >=60 mL/min/1.73m 2 Estimated GFR (Non- Tia >60 >=60 mL/min/1.73m 2 BUN Creatinine Ratio 11.8 Calcium 8.9 8.5-10.1 mg/dL Performing Lab: see note ML - [facility] LB ECG 12 lead Reviewed date:08/06/2024 09:47:04 PM Interpretation: Performing Lab: Notes/Report: Source Facility: [facility]-[address] [place] [address] [place] [address] Electrocardiograph Report Signed Patient: CHUCK PACKER MR#: [id number] : 1985 Acct:[id number] Age/Sex: 38 / M ADM Date: 07/30/24 Loc: ER Attending Dr: Ordering Physician: Shekhar Hare M.D. 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 Measurements Intervals [place] Rate: 95 P: 44 MI: 120 QRS: 15 QRSD: 76 T: -5 QT: 330 QTc: 383 Interpretive Statements 1100 Sinus rhythm 4068 Nonspecific Twave abnormality 5211 Minimal voltage criteria for LVH, may be normal variant Abnormal ECG Compared to ECG 06/28/2023 02:49:31 Left ventricular hypertrophy now present nonspecific Twave abnormality is seen in the inferior leads Electronically Signed On 07-30-2024 20:20:30 EDT by JITENDRA FOOTE M.D. Dictated By: JITENDRA FOOTE Signed By: 07/30/242019 DD/ 11 TD/TT: Electrical Engineering Draftsperson: ALISSON, Flu A+B IH (Not ye t reviewed by provider) Interpretation: Performing Lab: Notes/Report: COVID neg FLU A neg FLU B neg Control pos Prothrombin Time INR Reviewed date:02/28/2024 08:49:58 AM Interpretation: Performing Lab: Notes/Report: [facility] , Prothrombin Time 10.3 9.0-11.6 sec INR 0.97 2.0-3.0 CONDITIONS NOT LISTED BELOW 2.5-3.5 FOR PROSTHETIC HEART VALVE REPLACEMENT 2.5-3.5 RECURRENT THROMBOSIS DESIRED INR: Performing Lab: see note ML - [facility] LB CBC AUTO DIFF Reviewed date:02/28/2024 08:49:58 AM Interpretation: Performing Lab: Notes/Report: [facility] , White Blood Count 7.6 4.0-11.0 10 3/uL Red Blood Count 4.94 4.70-6.10 10 6/uL Hemoglobin 14.7 14.0-18.0 g/dL Hematocrit 42.1 42.0-54.0 % Mean Corpuscular Volume 85.2 80.0-94.0 fL Mean Corpuscular Hemoglobin 29.8 25.9-34.0 pg Mean Corpuscular HGB Conc 34.9 29.9-35.2 g/dL Red Cell Distribution Width 12.0 11.0-15.0 % Platelet Count 179 150-450 10 3/uL Mean Platelet Volume 8.8 9.5-13.5 fL Neutrophils Percent Auto 67.3 43.0-75.0 % Lymphocytes Percent Auto 27.0 20.5-60.0 % Monocytes Percent Auto 5.2 1.7-12.0 % Eosinophils Percent Auto 0.1 0.9-7.0 % Basophils Percent Auto 0.3 0.2-2.0 % Immature Granulocytes Pct Auto 0.1 0.0-0.5 % Neutrophils Absolute Auto 5.1 1.4-6.5 10 3/uL Lymphocytes Absolute Auto 2.1 1.2-3.8 10 3/uL Monocytes Absolute Auto 0.4 0.3-0.8 10 3/uL Eosinophils Absolute Auto 0.0 0.0-0.7 10 3/uL Basophils Absolute Auto 0.0 0.0-0.1 10 3/uL Immature Granulocytes Abs Auto 0.01 0.00-0.03 10 3/uL Performing Lab: see note ML - [facility] LB Reason For Referral No Information Medications Medication SIG (Take, Route, Frequency, Duration) Notes Start Date End Date Status predniSONE 20 MG 2 tablet Orally Once a day; Duration: 3 days 07/17/2024 Active traZODone HCl 50 MG 1 tablet at bedtime as needed Orally Once a day; Duration: 30 days 05/26/2024 Active Ondansetron HCl 4 MG 1 tablet Orally BID prn; Duration: 7 days 06/15/2024 Active Pantoprazole Sodium 40 MG 1 tablet Orall y Once a day; Duration: 30 day(s) 12/07/2023 Active Mupirocin 2 % 1 application Wire Frame Maker ally Twice a day; Duration: 5 days 12/10/2023 Active OLANZapine 15 MG 1 tablet Orally Once a day; Duration: 30 days 06/01/2024 Active Hyoscyamine Sulfate 0.125 MG 2 tabs SL S L every 4 hrs PRN abd pain 12/10/2023 Active Hyoscyamine Sulfate 0.125 MG 1-2 tabs SL SL every 4 hrs PRN abd pain 07/20/2024 Active Hydrocortisone 1 % 1 application Wire Frame Maker ally Once a day 12/10/2023 Active hydrOXYzine HCl 50 MG TAKE 1 TABLET IN T HE AM AND 1 IN THE PM NEEDED; Duration: 30 Active FLUoxetine HCl 20 MG TAKE 3 CAPSULES BY MOUTH ONCE A DAY; Duration: 30 Active Benzonatate 200 MG 1 capsule as needed Orally Three times a day; Duration: 7 days 07/17/2024 Active Divalproex Sodium 250 MG TAKE 1 TABLET B Y MOUTH IN THE MORNING AND 2 TABLETS IN THE EVENING; Duration: 30 days Active levoFLOXacin 750 MG 1 tablet Orally Once a day; Duration: 10 day(s) 08/04/2024 Active Triamcinolone Acetonide 0.1 % 1 application Externally Two times a Week 12/10/2023 Active Ventolin HFA 108 (90 Base) MCG/ACT INHALE 1 TO 2 PUFFS EVERY 4 HOURS NEEDED; Duration: 17 Active Social History Tobacco Use: Social History Observation Description Date Details (start date - stop date) Current Smoker NA - NA Tobacco Use/Smoking Question Answer Notes Patient is a current smoker How often do you smoke cigarettes? every day How many cigarettes a day do you smoke? 11-20 Alcohol Screen (Audit-C) Question Answer Notes Did you have a drink containing alcohol in the p ast year? No Points 0 Interpretation Negative AUDIT-C (Standard) Question Answer Notes Did you have a drink containing alcohol in the p ast year? No Points 0 Interpretation Negative Problems Problem Type SNOMED Code ICD Code Onset Dates Problem Status W/U Status Risk Notes Problem Overweight (969221764) Overweight (E66.3) Active confirmed Problem Generalized anxiety disorder (47421631) Generalized anxiety disorder (F41.1) Active confirmed Problem Depression (933485743) Depression (F32.9) Active confirmed Problem Erectile dysfunction (035435479) Erectile dysfunction (N52.9) Active confirmed Problem Gastroesophageal reflux disease (554839023) GERD without esophagitis (K21.9) Active confirmed Problem Migraine (80367290) Migraine (G43.909) Active confirmed Problem Bronchitis (78447106) Bronchitis (J40) Active confirmed Problem Rash (118831702) Rash (R21) Active confirmed Problem Upper respiratory infection (75055585) Upper respiratory infection (J06.9) Active confirmed Problem Shingles (7227413) Shingles (B02.9) Active confirmed Problem Hemorrhoids (81496506) Hemorrhoids (K64.9) Active confirmed Problem Current smoker (27929349) Current smoker (F17.200) Active confirmed Problem Abdominal discomfort (69948110) Abdominal discomfort (R10.9) Active confirmed Problem Panic attack (608045690) Panic attack (F41.0) Active confirmed Problem Bright red blood per rectum (948129618) Bright red blood per rectum (K62.5) Active confirmed Problem Anal fissure (96738988) Rectal fissure (K60.2) Active confirmed Problem Pain in limb (37017291) Heel pain, right (M79.671) Active confirmed Problem Insomnia (301097622) Insomnia disorder (G47.00) Active confirmed Problem Irritable bowel syndrome (08098988) Irritable bowel syndrome (IBS) (K58.9) Active confirmed Problem 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 [address] [address] 07/14/2024 Leighann Mahoney Body aches R52 ; Gastroenteritis K52.9 and Vomiting R11.[address] [address] 05/26/2024 Leighann Mahoney Insomnia disorder G4 7.00 ; Rash and other nonspecific skin eruption R21 and Depression F32.[address] [address] 06/08/2024 Martínez Hoy Cough R05.9 and Acut e bronchitis, unspecified organism J20.[address] [address] 07/17/2024 Leighann Mahoney Bronchitis J40 [address] [address] 07/20/2024 Martínez Hoy Gastroenteritis K52. [address] [address] 08/04/2024 Martínez Hoy Acute non-recurrent sinusitis, unspecified location J01.90 and Nasal congestion R09.[address] [address] 06/01/2024 Leighann Mahoney Assessments Encounter Date Diagnosis (ICD Code) Assessment Notes Treatment Notes Treatment Clinical Notes Section Notes 05/26/2024 Insomnia disorder (ICD-10 - G47.00) discussed sleep hygiene trial of trazodone 05/26/2024 Rash and other nonspecific skin eruption (ICD-10 - R21) if not improving try scabies wash? call office derm fu if not improving, referral sheet given 06/08/2024 Cough (ICD-10 - R05.9) 06/15/2024 Gastroenteritis (ICD-10 - K52.9) push fluids, electrolytes ok for OWN 07/14/2024 Body aches (ICD-10 - R52) 07/14/2024 Gastroenteritis (ICD-10 - K52.9) has zofran at home rest, push fluids and electrolytes ok for OWN fu if not improving, sx worsen 07/17/2024 Bronchitis (ICD-10 - J40) fu if not improving 07/20/2024 Gastroenteritis (ICD-10 - K52.9) Get plenty of rest. Stay hydrated by sucking on ice chips or taking small sips of water. You can also try drinking clear soda, clear broths or noncaffeinated sports drinks. Stop eating solid foods for a few hours to let your stomach settle. East back into eating by eating bland, odpf-vw-nibolg foods like crackers, toast, gelatin, bananas, rice and chicken. Try to avoid foods/substances including dairy products, caffeine, alcohol, nicotine and fatty or highly seasoned foods. Medications such as ibuprofen or tylenol can make your stomach more upset, so use sparingly if at all. Also avoid gyxu-zcg-alsezfu anti-diarrheal medications because it can make it harder for your body to eliminate the virus. 08/04/2024 Acute non-recurrent sinusitis, unspecified location (ICD-10 - J01.90) Rest and drink more liquids, especially water. You may use a humidifier or vaporizer to help keep the drainage moist. Fcty-tji-jtxpqpj Nasal Saline may help the stuffy and runny nose. Use Ibuprofen and or Tylenol as needed for fever, chills, body aches or pain. Children 5 years old should not be given cfge-obg-jqfsugq cough and cold medications such as guaifenesin and dextromethorphan. If you're over age 5, you may try aymi-scd-xkjxauu cold medications such as guaifenesin and dextromethorphan, or multi-symptom cold reliever such as Dayquil to help reduce the symptoms. Antibiotics have been prescribed. You should take these until completed and follow the directions. Antibiotics can sometimes cause upset stomach, and in rare cases, serious allergic reactions or serious gastrointestinal problems. If you start having severe abdominal pain, severe vomiting, or bloody diarrhea, you should be reevaluated by your physician or urgent care immediately. Follow up with your Primary Care Provider or return to clinic if symptoms do not improve within 3-5 days 08/04/2024 Nasal congestion (ICD-10 - R09.81) 07/14/2024 Vomiting (ICD-10 - R11.10) 06/08/2024 Acute bronchitis, unspecified organism (ICD-10 - J20.9) Rest and drink more liquids, especially water. You may use a humidifier or vaporizer to help keep the drainage moist. Svnx-giz-wokxvmg Nasal Saline may help the stuffy and runny nose. Use Ibuprofen and or Tylenol as needed for fever, chills, body aches or pain. Children 5 years old should not be given okwy-yvb-ojxskvn cough and cold medications such as guaifenesin and dextromethorphan. If you're over age 5, you may try zsgd-ijj-gnqutaj cold medications such as guaifenesin and dextromethorphan, or multi-symptom cold reliever such as Dayquil to help reduce the symptoms. Antibiotics have been prescribed. You should take these until completed and follow the directions. Antibiotics can sometimes cause upset stomach, and in rare cases, serious allergic reactions or serious gastrointestinal problems. If you start having severe abdominal pain, severe vomiting, or bloody diarrhea, you should be reevaluated by your physician or urgent care immediately. Follow up with your Primary Care Provider or return to clinic if symptoms do not improve within 3-5 days. If you develop severe symptoms such as shortness of breath, repeated vomiting, coughing up blood, or chest pain you should go to the emergency room or call 911 05/26/2024 Depression (ICD-10 - F32.9) psych referral sheet given needs to re establish with psych will review meds with Dr Vail Plan Of Treatment Pending Test Test Name Order Date COVID-19, Flu A+B IH 07/14/2024 COVID-19, Flu A+B IH 06/08/2024 Insurance Providers Payer Name Payer Address Payer Phone Subscriber Number Group Number Insured Name Patient Relationship to Insured Coverage Start Date Coverage End Date [employer] [place] [employer] [address] [address] [place] [address] [id number] Chuck Packer Self - patient is the insured Medical (General) History Medical History History ICD Code Bronchitis J40 Heel pain, right M79.671 Hemorrhoids K64.9 Upper respiratory infection J06.9 Depression F32.9 Rash R21 Shingles B02.9 Migraine G43.909 Gastro-esophageal reflux disease K21.9 Bright red blood per rectum K62.5 Irritable bowel syndrome (IBS) K58.9 Panic attack F41.0 Ydvsg-Wdyorcezv-Zrcgy (WPW) syndrome I45 .6 Overweight E66.3 Abdominal discomfort R10.9 Generalized anxiety disorder F41.1 Current smoker F17.200
--- OUTSIDE RECORDS SUMMARY | 2025-01-17 13:38 | XMS_ITS | Clinical Summary ---
Author Organization [facility] Address [address] [place] [address] Care Team Providers Care Benzene Washer Operator Name Role Phone Unavailable Primary Care Provider Unavailabl e Allergies Active Allergy Reactions Criticality Noted Date Comments Erythromycin Rash Low 02/23/2024 Erythromycin Base Hives 02/23/2024 Penicillins Hives 02/23/2024 Medications divalproex (Depakote) 250 mg EC tablet TAKE 1 TABLET BY MOUTH IN THE MORNING AND 2 TABLETS IN THE EVENING Active divalproex (Depakote ER) 500 mg 24 hr tablet Take 500 mg by mouth at bedtime. 04/29/2023 Active FLUoxetine (PROzac) 20 mg capsule Take 60 mg by mouth in the morning. Active hydrOXYzine pamoate (Vistaril) 50 mg capsule Take 50 mg by mouth two times daily. 04/29/2023 Active OLANZapine (ZyPREXA) 10 mg tablet Take 1 tablet by mouth at bedtime. Active pantoprazole (ProtoNix) 40 mg EC tablet in the morning. 12/07/2023 Active AneCream5 5 % cream 03/09/2024 Active diclofenac (Voltaren) 75 mg EC tablet Take 75 mg by mouth if needed in the morning and at bedtime. 03/05/2024 Active hydrOXYzine HCL (Atarax) 50 mg tablet Take 50 mg by mouth. 12/13/2023 Active Active Problems Problem Noted Date Diagnosed Date BMI 40.0-44.9, adult 02/23/2024 BRBPR (bright red blood per rectum) 02/23/2024 Change in bowel habits 02/23/2024 Current smoker 02/23/2024 Overview (02/23/2024): Added secondary to documentation in Social History. 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 No 03/14/2024 Emotionally Abused Not on file 03/14/2024 Physically Abused Not on file 03/14/2024 Sexually Abused Not on file 03/14/2024 PHQ-2 Answer Date Recorded Patient Health Questionnaire-2 Score 0 03/14/2024 Sex and Gender Information Value Date Recorded Sex Assigned at Not on file Legal Sex Male 3:19 PM EDT Gender Identity Not on file Sexual Orientation Not on file Last Filed Vital Signs Vital Sign Reading Time Taken Comments Blood Pressure 128/89 03/14/2024 2:20 PM EST Pulse 91 03/14/2024 2:20 PM EST Temperature 36.6 C (97.8 F) 03/14/2024 2:20 PM EST Respiratory Rate 17 02/29/2024 9:45 AM EDT Oxygen Saturation 97% 03/14/2024 2:20 PM EST Inhaled Oxygen Concentration - - Weight 143 kg (314 lb 3.2 oz) 03/14/2024 2:20 PM EST Height 190.5 cm (6' 3 ) 03/14/2024 2:20 PM EST Body Mass Index 39.27 03/14/2024 2:20 PM EST Plan of Treatment Health Maintenance Due Date Last Done Comments Varicella Vaccines (1 of 2 - 13+ 2-dose series) 08/19/2000 Hepatitis B Vaccines (1 of 3 - 19+ 3-dose series) 08/19/2006 Pneumococcal Vaccine: Pediat rics (0 to 5 Years) and At-Risk Patients (6 to 64 Years) (1 of 2 - PCV) 08/19/2006 Adult Tetanus 08/19/2009 COVID-19 Vaccine (1 - 2023-2 5 season) 2025 Influenza Vaccine (#1) 2025 Depression Screening 03/14/2025 03/14/2024 Zoster Vaccines (1 of 2) 08/19/2037 HIB Vaccines Aged Out No longer eligi ble based on patient's age to complete this topic HPV Vaccines Aged Out No longer eligi ble based on patient's age to complete this topic IPV Vaccines Aged Out No longer eligi ble based on patient's age to complete this topic Meningococcal B Vaccine Aged Out No l onger eligible based on patient's age to complete this topic Meningococcal Vaccine Aged Out No ismael margaret eligible based on patient's age to complete this topic Rotavirus Vaccines Aged Out No longer eligible based on patient's age to complete this topic Insurance [place] [employer] Advance Directives * Full Code (Latest Code Status on File) Date Activated Date Inactivated Comments 02/29/2024 6:22 AM 02/29/2024 12:22 PM
--- NOTE | 2025-01-17 13:56 | XR_ITS ---
[facility] [place] [id number] Patient Name: CHUCK PACKER MRN: [id number] date: 1985 Sex: M Assigned Patient Location: ER Current Patient Location: ED.MAIN Accession/Order Number: [id number] Exam Date: 01/17/2025 14:02 Report Date: 01/17/2025 14:48 At the request of: BRENT RIZZO Procedure: XR chest 1V PA CHEST: CLINICAL HISTORY: Chest pain COMPARISON: 07/15/2024 Unremarkable cardiac mediastinal silhouette. Lungs clear. No effusion or pneumothorax. XR/XR chest 1V IMPRESSION: NEGATIVE ACUTE PLEURAL-PARENCHYMAL DISEASE. Impression dictated by: Chandler Fields M.D. 01/17/2025 2:48 PM Dictation Location: [place] [address] Electronically authenticated by: [id number] Y Date: 01/17/2025 14:48
--- NOTE | 2025-01-17 13:56 | ECG_ITS ---
[facility] Test Date: 2025-01-17 Pat Name: CHUCK PACKER Department: Room: - Gender: Male [employer]: : 1985 Requested By: [id number] Order Number: [id number] Reading MD: JITENDRA FOOTE M.D. Measurements Intervals [place] Rate: 94 P: 54 DC: 130 QRS: 44 QRSD: 74 T: 49 QT: 342 QTc: 394 Interpretive Statements [address] elevation, probably early repolarization 9130 borderline ECG Compared to ECG 07/30/2024 14:12:13 ST (T wave) deviation now present Early repolarization now present Left ventricular hypertrophy no longer present Electronically Signed On 01-17-2025 17:53:50 EDT by JITENDRA FOOTE M.D.
--- NOTE | 2025-01-17 13:59 | ED.GENADUL1 ---
HPI HPI - General Adult General Chief complaint: Chest Pain Stated complaint: CHEST PAIN Time Seen by Provider: 01/17/25 13:45 Source: patient Mode of arrival: ambulance History of Present Illness HPI narrative: Patient is a 39-year-old male that presents to the emergency department via EMS with complaints of anterior chest pain that started about 11 AM this morning. He states that he went to his abwhfu-ch-vqc's and took his blood pressure, which was rising from systolic 130s to 150s so he ended up calling the squad. EMS did give him nitro and 4 ASA 81 mg tablets and route. He denies any coronary artery disease but does have a history of Wpexo-Zkpusxgrp-Ycfqo and had to have a cardiac ablation when he was 15. He has not had an issue since. He has also had a cough for about a week with ear pain and nasal congestion. He denies any fever, night sweats, or chills with the symptoms. He denies any nausea, vomiting, diarrhea, or abdominal pain. Related Data Home Medications ?Medication ?Instructions ?Recorded ?Confirmed No Known Home Medications 01/17/25 01/17/25 Allergies Allergy/AdvReac Type Severity Reaction Status Date / Time erythromycin base Allergy Intermediate Rash Verified 07/15/24 10:48 Penicillins Allergy Intermediate Rash Verified 07/15/24 10:48 Opioid HPI Opioid Management Most Recent Opioid Data: Last Pain Scale 7 01/17/25, 15:50 Last MAR Pain Assessment 01/17/25, 15:50 Ur Phencyclidine Scrn, (NEGATIVE) Negative 01/17/25, 13:43 Review of Systems ROS Status of ROS 10 or more systems reviewed and unremarkable except as noted in history and below [facility] Social History Smoking status: Current every day smoker Little interest or pleasure in doing things: not at all Feeling down, depressed, or hopeless: not at all Exam Narrative Exam Narrative: General: No distress, age-appropriate, nontoxic appearing Skin: Warm, dry, no pallor. No rash. Head: Normocephalic, atraumatic. Neck: Supple, non-tender. Eye: Pupils are equal, round and EOMI. No scleral icterus. Ears, Nose, Mouth, and Throat: Mild erythema in the ear canal BL, no bulging TM. No nasal mucosal hypertrophy. Oral mucosa is moist, no posterior oropharynx erythema, uvula is mid-line Cardiovascular: Mildly tachycardic and Rhythm without murmur, gallop or rub. Respiratory: No accessory muscle use or respiratory distress. Lungs are clear to auscultation, no wheezing, rales or rhonchi Chest Wall: Mild right sided tenderness anteriorly at the costosternal junction Musculoskeletal: Full ROM of all extremities, no calf or popliteal tenderness GI: Abdomen is soft, non-distended, non tender to palpation. No masses appreciated. No rebound, guarding, or rigidity noted. Neurological: A&O x4. No cranial nerve dysfunction observed. No truncal ataxia. Moves all extremities. Sensation intact. Psychiatric: Cooperative and interactive. Normal mood and affect. Constitutional Vital Signs, click to edit/add: Last Vital Signs Temp 97.3 F L 01/17/25 13:33 Pulse 82 01/17/25 16:40 Resp 22 H 01/17/25 16:40 BP 144/93 H 01/17/25 16:30 Pulse Ox 98 01/17/25 16:40 O2 Del Method Room Air 01/17/25 13:41 Documenting provider has reviewed patient's vital signs: yes Course Vital Signs Vital signs: Vital Signs Temperature 97.3 F L 01/17/25 13:33 Pulse Rate 92 H 01/17/25 13:33 Respiratory Rate 26 H 01/17/25 13:33 Blood Pressure 134/90 01/17/25 13:33 Pulse Oximetry 98 01/17/25 13:33 Oxygen Delivery Method Room Air 01/17/25 13:33 Temperature 97.3 F L 01/17/25 13:33 Pulse Rate 82 01/17/25 16:40 Respiratory Rate 22 H 01/17/25 16:40 Blood Pressure 144/93 H 01/17/25 16:30 Pulse Oximetry 98 01/17/25 16:40 Oxygen Delivery Method Room Air 01/17/25 13:41 Medical Decision Making MDM Narrative Medical decision making narrative: Patient is a 39-year-old male that presented to the emergency department with complaints of chest pain that started this morning. He went to his veocsw-cd-dwn's house and took his blood pressure that he states was starting to increase from systolic 130s to 150s. Heart score 1. Positive PERC as patient is mildly tachycardic at 105 on arrival. D-dimer ordered along with CBC, BMP, Trop, CXR. Has also had cough, ear pain, and nasal congestion x 1 week. No fever, night sweats, or chills. No abdominal pain, nausea, vomiting, or diarrhea. BP stable on arrival, mildly tachycardic at 105, 90% O2 saturation on room air. Nondiaphoretic Differential diagnosis considered are acute coronary syndrome, aortic dissection, pulmonary embolism, pericarditis/myopericarditis, viral pleuritis or costochondritis, arrhythmia. 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 No current signs of acute ischemic or arrhythmia. Pain improved with nitro/aspirin. Unclear if this was due to cardiac effect or natural progression. Viral syndrome likely given URI symptoms and sick contact. IV Toradol given for musculoskeletal Chest wall pain with improvement on reevaluation. He seemed more comfortable and was on his phone during recheck. I discussed labs and testing with patient and plan for discharge home and he is agreeable. My clinical impression is MSK chest wall pain, likely from his cough he has had for a week. He does smoke cigarettes and marijuana and we did talk about smoking cessation to help ease his current pain. He asked for a work note for today and that is provided to him. Return precautions were discussed with patient and given to him in discharge instructions. Patient voiced understanding. He can take OTC NSAID's for the pain. Lab Data Lab results reviewed: Yes I reviewed the patient's lab results Labs: Lab Results 01/17/25 01/17/25 01/17/25 Range/Units 13:43 14:01 14:10 WBC 8.4 (4.0-11.0) 10^3/uL RBC 5.21 (4.70-6.10) 10^6/uL Hgb 15.7 (14.0-18.0) g/dL Hct 43.7 (42.0-54.0) % MCV 83.9 (80.0-94.0) fL MCH 30.1 (25.9-34.0) pg MCHC 35.9 H (29.9-35.2) g/dL RDW 11.9 (11.0-15.0) % Plt Count 241 (150-450) 10^3/uL MPV 9.8 (9.5-13.5) fL Neut % (Auto) 63.7 (43.0-75.0) % Lymph % (Auto) 30.5 (20.5-60.0) % [place] % (Auto) 5.3 (1.7-12.0) % Eos % (Auto) 0.2 L (0.9-7.0) % Baso % (Auto) 0.1 L (0.2-2.0) % Neut # (Auto) 5.4 (1.4-6.5) 10^3/uL Lymph # (Auto) 2.6 (1.2-3.8) 10^3/uL [place] # (Auto) 0.5 (0.3-0.8) 10^3/uL Eos # (Auto) 0.0 (0.0-0.7) 10^3/uL Baso # (Auto) 0.0 (0.0-0.1) 10^3/uL Abs Immat Gran (auto) 0.02 (0.00-0.03) 10^3/uL Imm/Tot Granulo (auto) 0.2 (0.0-0.5) % D-Dimer 0.20 (<=0.59) mg/L FEU Sodium 135 L (136-145) mmol/L Potassium 4.0 (3.5-5.1) mmol/L Chloride 103 (98-107) mmol/L Carbon Dioxide 23.2 (21.0-32.0) mmol/L Anion Gap 12.8 BUN 16.0 (7.0-18.0) mg/dL Creatinine 1.07 (0.70-1.30) mg/dL Est GFR ( Amer) >60 (>=60 mL/min/1.73m^2) Est GFR (Non-Af Amer) >60 (>=60 mL/min/1.73m^2) BUN/Creatinine Ratio 15.0 Glucose 171 H (74-106) mg/dL Calcium 9.0 (8.5-10.1) mg/dL Troponin I High Sens <4.0 L (4.0-76.1) pg/mL Urine Opiates Screen Negative (NEGATIVE) Ur Buprenorphine Scrn Negative (NEGATIVE) Ur Oxycodone Screen Negative (NEGATIVE) Urine Methadone Screen Negative (NEGATIVE) Ur Barbiturates Screen Negative (NEGATIVE) U Tricyclic Antidepress Negative (NEGATIVE) Ur Phencyclidine Scrn Negative (NEGATIVE) Ur Amphetamines Screen Negative (NEGATIVE) U Methamphetamines Scrn Negative (NEGATIVE) U Benzodiazepines Scrn Negative (NEGATIVE) Urine Cocaine Screen Negative (NEGATIVE) U Cannabinoids Screen Positive A (NEGATIVE) SARS-CoV-2 Ag (CV2AG) Negative (NEGATIVE) 01/17/25 Range/Units 15:55 WBC (4.0-11.0) 10^3/uL RBC (4.70-6.10) 10^6/uL Hgb (14.0-18.0) g/dL Hct (42.0-54.0) % MCV (80.0-94.0) fL MCH (25.9-34.0) pg MCHC (29.9-35.2) g/dL RDW (11.0-15.0) % Plt Count (150-450) 10^3/uL MPV (9.5-13.5) fL Neut % (Auto) (43.0-75.0) % Lymph % (Auto) (20.5-60.0) % [place] % (Auto) (1.7-12.0) % Eos % (Auto) (0.9-7.0) % Baso % (Auto) (0.2-2.0) % Neut # (Auto) (1.4-6.5) 10^3/uL Lymph # (Auto) (1.2-3.8) 10^3/uL [place] # (Auto) (0.3-0.8) 10^3/uL Eos # (Auto) (0.0-0.7) 10^3/uL Baso # (Auto) (0.0-0.1) 10^3/uL Abs Immat Gran (auto) (0.00-0.03) 10^3/uL Imm/Tot Granulo (auto) (0.0-0.5) % D-Dimer (<=0.59) mg/L FEU Sodium (136-145) mmol/L Potassium (3.5-5.1) mmol/L Chloride (98-107) mmol/L Carbon Dioxide (21.0-32.0) mmol/L Anion Gap BUN (7.0-18.0) mg/dL Creatinine (0.70-1.30) mg/dL Est GFR ( Amer) (>=60 mL/min/1.73m^2) Est GFR (Non-Af Amer) (>=60 mL/min/1.73m^2) BUN/Creatinine Ratio Glucose (74-106) mg/dL Calcium (8.5-10.1) mg/dL Troponin I High Sens 4.2 (4.0-76.1) pg/mL Urine Opiates Screen (NEGATIVE) Ur Buprenorphine Scrn (NEGATIVE) Ur Oxycodone Screen (NEGATIVE) Urine Methadone Screen (NEGATIVE) Ur Barbiturates Screen (NEGATIVE) U Tricyclic Antidepress (NEGATIVE) Ur Phencyclidine Scrn (NEGATIVE) Ur Amphetamines Screen (NEGATIVE) U Methamphetamines Scrn (NEGATIVE) U Benzodiazepines Scrn (NEGATIVE) Urine Cocaine Screen (NEGATIVE) U Cannabinoids Screen (NEGATIVE) SARS-CoV-2 Ag (CV2AG) (NEGATIVE) Imaging Data Chest x-ray: Attestation: I have reviewed the pertinent imaging results. Radiologist's impression: ITS Impressions Chest X-Ray 01/17/25 13:56 IMPRESSION: NEGATIVE ACUTE PLEURAL-PARENCHYMAL DISEASE. Impression dictated by: Chandler Fields M.D. 01/17/2025 2:48 PM Dictation Location: [place] [address] Electronically authenticated by: [id number] Y Date: 01/17/2025 14:48 ECG Data Attestation: ?I have reviewed the pertinent ECG results. Discharge Plan Discharge Chief Complaint: Chest Pain Clinical Impression: Atypical chest pain Patient Disposition: Home, Self-Care Time of Disposition Decision: 16:37 Condition: Good Mode of Transportation: Private Vehicle Prescriptions / Home Meds: No Action No Known Home Medications Print Language: Luxembourger Instructions: Chest Wall Pain (ED) Additional Instructions: Your symptoms, testing, and labs are not consistent with a heart attack or other emergency heart condition at this time. It is possible your chest pain is related to inflammation from a recent viral illness, viral pleuritis or costochondritis, or muscle strain from coughing. If you experience any new or worsening symptoms return to the emergency department for evaluation. You can use [id number] ibuprofen, Advil/Motrin, or acetaminophen, Tylenol, for pain as needed on the bottle/box. We have given you a note to be off work today. Follow-up for aftercare with your primary care provider as soon as possible. Referrals: MERNA SORIANO [Primary Care Provider, Family Practice] - 1 week Discharge Date/Time: 01/17/25 16:51
--- OUTSIDE RECORDS SUMMARY | 2025-01-17 14:10 | XMS_ITS | CCD ---
Author Organization [facility] Care Team Providers Care Vb Developer Name Role Phone ANTONI .MARZENA Attending Unavailable [...] Erythromycin; Translations: [ERYTHROMYCIN BASE] Drug Allergy 4 [facility] Repository (4 sources) Penicillins; Translations: [penicillins] Drug allergy (disorder) 4 [facility] (disorder) [facility] Repository (3 sources) Erythromycin; Translations: [erythromycin] Drug Allergy 4 [facility] Medications Current Medications Medication Drug Class(es) [...] Conduction disorders (2 sources) Pre-excitation syndrome; 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] Onset: 08-11-2022 05-29-2022 Chronic Esophageal [...] Onset: 06-25-2022 Other aftercare (1 source) Other shelter (current) drug therapy; Translations: [OTH JAIL CURRENT DRUG THERAPY] Onset: 06-25-2022 Episodic Other [...] Range Facility Office Visiton 03-14-2024 Follow-up visit [id number] Chuck Packer 1985 M Date Provider Department Center 03/14/2024 Mayra-URBANO RODRIGUEZ [facility] SURG Second Fl No family history on file Level of Service:80399 [place] POSTOP FOLLOW UP VISIT RELATED TO ORIGINAL PX Reason for Visit and Comments: Post-op [483] - Chuck is here today for post op visit: hemorrhoids, s/p 02/29/24 EUA with hemorrhoidectomy and anal fissure debridement Normal [facility] HISTOLOGY - TISSUE EXAMon LAB AP CASE REPORT Normal [facility] Comment on above: Order Comment: Pre-o p diagnosis: Anal pain [K62.89] Result Comment: Surg ical Pathology Case: [id number] Authorizing Provider: Urbano Rodriguez MD Collected: 02/29/2024 0827 Ordering Location: [facility] Main Operating Room Received: 02/29/2024 1058 Pathologist: Dyana Villasenor MD Specimens: A) - Anus, ANAL FISSURE B) - Anus, INTERNAL AND EXTERNAL HEMORRHOID Performed By: #### L [id number] #### [facility] (BEAK[facility]) [address] [facility] [place] [address] LAB AP CLINICAL INFORMATION [facility] Comment on above: Order Comment: Pre-o p diagnosis: Anal pain [K62.89] Result Comment: Post -Op Diagnoses K62.89 - Anal pain [ICD-10-CM] Performed By: #### L [id number] #### [facility]) [address] [facility] [place] [address] LAB AP GROSS DESCRIPTION A. Anus. [facility] Comment on above: Order Comment: Pre-o [...] in a single cassette. [place], Pathologists' Automation Analyst B. Anus. Received in formalin labeled Chuck [...] are somewhat congested with focal prominent vessels. Strategic Marketing Manager sections are submitted in a single cassette. [place], Pathologists' Automation Analyst Performed By: #### L [id number] #### [facility]) [address] [facility] [place] [address] LAB AP MICROSCOPIC DESCRIPTION Microscopic examination performed. [facility] Comment on above: Order Comment: Pre-o p diagnosis: Anal pain [K62.89] Performed By: #### L [id number] #### [facility]) [address] [place] [address] LAB AP REPORT FINAL DIAGNOSIS NARRATIVE [facility] Comment on above: Order Comment: Pre-o p diagnosis: Anal pain [K62.89] Result Comment: A. A nal fissure, debridement: - Hyperplastic squamous mucosa and dilated congested submucosal veins. B. Hemorrhoids, internal and external, hemorrhoidectomy: - Internal and external hemorrhoids with acutely inflamed reactive surface epithelium. Performed By: #### L [id number] #### [facility] (KHRIS) [address] [place] [address] HPon 02-29-2024 HP H&P reviewed. The patient was examined and there are no changes to the H&P. [facility] OPNOTEon 02-29-2024 OPNOTE EXAM UNDER ANESTHESIA,, HEMORRHOIDECTOMY, DEBRIDMENT OF ANAL FISSURE Operative Note Date: 02/29/2024 Location: [facility] OR Name: Chuck Packer, : 1985, Diagnosis Pre-op Diagnosis * Anal pain [K62.89] Post-op Diagnosis * Anal pain [K62.89] Anal fissure External and internal hemorrhoid Procedures HEMORRHOIDECTOMY, DEBRIDMENT OF ANAL FISSURE EXAM UNDER ANESTHESIA, 00[address] - [place] ANRCT XM SURG REQ ANES GENERAL SPI/EDRL [...] EXTERNAL HEMORRHOID Comment: PLACED IN FORMALIN Staff: Bus Cleaner: Shannan Guy RN Scrub Person: Dianelys Watson [facility] [place] Scrub: Minna Mcclendon [...] - hemodynamically stable. Condition: stable Urbano Rodriguez [facility] POCT GLUCOSE METER UNSOLICIT ED RESULTSon 02-29-2024 Glucose [Mass/Vol] 134 mg/dL High 70-105 [facility] Comment on above: Order Comment: Waive d Testing in the ED is performed under the ED CLIA certificate #[id number]. Result Comment: [email or web address] Performed By: #### L [id number] #### [facility] (BEAKER) [address] [place] [address] Consulton 02-23-2024 Consult [id number] Chuck Packer 1985 M Date Provider Department Center 02/23/2024 Mayra-URBANO RODRIGUEZ [facility] SURG Second Fl No family history on file Level of Service:47310 [place] OFFICE/OUTPATIENT NEW LOW MDM 30 MINUTES Reason for Visit and Comments: Consult [484] - Chuck is here today for consult: Rectal pain and Bleeding Normal [facility] HPon 02-23-2024 HP Subjective Patient ID: Chuck [...] 36 hour(s)). No follow-ups on file. Normal [facility] General Surgery Office/Clini c Noteon 12-26-2023 General [...] Rectal bleeding Rectal or anal pain Smoker Kjhkc-Ccqgzzvbb-Hpebo syndrome Historical Atrial fibrillation Epididymitis Nocturia Scrotal [...] inactivated - Not Given Patient Refuses Normal [facility] Comment on above: Result Comment: Elec [...] with mild panic attacks Rectal bleeding Smoker Ztgbw-Hbbxxycxm-Gnhsq syndrome Historical - Any problem that you are no longer receiving treatment for. Atrial fibrillation Epididymitis Nocturia Scrotal pain Patient Survey You may receive a survey via text or e-mail asking about your office visit. Please share your experience with us by completing your survey. We appreciate your feedback and thank you for choosing us for your care. Normal [facility] CBC AUTO DIFFon 08-09-2022 BASO # 0.0 103/ul Normal 0.0-0.1 [facility] Comment on above: Performed By: #### P TT, PT #### [facility] [address] [place], [place] [address] Dr. Oh Trotter Basophils/100 WBC (Bld) 0.2 % Normal 0.2-2.0 [facility] Comment on above: Performed By: #### P TT, PT #### [facility] [address] [place], [place] [address] Dr. Oh Trotter EO # 0.0 103/ul Normal 0.0-0.7 [facility] Comment on above: Performed By: #### P TT, PT #### [facility] [address] [place] [address] Dr. Oh Trotter Eosinophils/100 WBC (Bld) 0.6 % Critically low 0.9-7.0 [facility] Comment on above: Performed By: #### P TT, PT #### [facility] [address] [place] [address] Dr. Oh Trotter Erythrocyte distribution width (RBC) [Ratio] 12.2 % Normal 11.0-15.0 [facility] Comment on above: Performed By: #### P TT, PT #### [facility] [address] [place] [address] Dr. Oh Trotter Hematocrit (Bld) [Volume fraction] 44.1 % Normal 42.0-54.0 [facility] Comment on above: Performed By: #### P TT, PT #### [facility] [address] [place] [address] Dr. Oh Trotter Hemoglobin (Bld) [Mass/Vol] 15.8 g/dL Normal 14.0-18.0 [facility] Comment on above: Performed By: #### P TT, PT #### [facility] [address] [place] [address] Dr. Oh Trotter IG # 0.02 10e3/ul Normal 0.00-0.03 [facility] Comment on above: Performed By: #### P TT, PT #### [facility] [address] [place] [address] Dr. Oh Trotter IG % 0.3 % Normal 0.0-0.5 [facility] Comment on above: Performed By: #### P TT, PT #### [facility] [address] [place] [address] Dr. Oh Trotter LYMPH # 1.9 103/ul Normal 1.2-3.8 [facility] Comment on above: Performed By: #### P TT, PT #### [facility] [address] [place] [address] Dr. Oh Trotter Lymphocytes/100 WBC (Bld) 29.7 % Normal 20.5-60.0 [facility] Comment on above: Performed By: #### P TT, PT #### [facility] [address] [place] [address] Dr. Oh Trotter MANUAL DIFF REQ NO Normal [facility] Comment on above: Performed By: #### P TT, PT #### [facility] [address] [place] [address] Dr. Oh Trotter MCH (RBC) [Entitic mass] 29.8 pg Normal 25.9-34.0 [facility] Comment on above: Performed By: #### P TT, PT #### [facility] [address] [place] [address] Dr. hO Trotter MCHC (RBC) [Mass/Vol] 35.8 g/dL Critically high 29.9-35.2 [facility] Comment on above: Performed By: #### P TT, PT #### [facility] [address] [place] [address] Dr. Oh Trotter MCV (RBC) [Entitic vol] 83.2 fL Normal 80.0-94.0 [facility] Comment on above: Performed By: #### P TT, PT #### [facility] [address] [place] [address] Dr. Oh Trotter MONO # 0.6 103/ul Normal 0.3-0.8 [facility] Comment on above: Performed By: #### P TT, PT #### [facility] [address] [place] [address] Dr. Oh Trotter Monocytes/100 WBC (Bld) 8.6 % Normal 1.7-12.0 [facility] Comment on above: Performed By: #### P TT, PT #### [facility] [address] [place] [address] Dr. Oh Trotter NEUT # 3.9 103/ul Normal 1.4-6.5 [facility] Comment on above: Performed By: #### P TT, PT #### [facility] [address] [place] [address] Dr. Oh Trotter Neutrophils/100 WBC (Bld) 60.6 % Normal 43.0-75.0 [facility] Comment on above: Performed By: #### P TT, PT #### [facility] [address] [place] [address] Dr. Oh Trotter Platelet mean volume (Bld) [Entitic vol] 9.5 fL Normal 9.5-13.5 [facility] Comment on above: Performed By: #### P TT, PT #### [facility] [address] [place] [address] Dr. Oh Trotter PLT 187 103/ul Normal 150-450 [facility] Comment on above: Performed By: #### P TT, PT #### [facility] [address] [place] [address] Dr. Oh Trotter RBC 5.30 106/ul Normal 4.70-6.10 [facility] Comment on above: Performed By: #### P TT, PT #### [facility] [address] [place] [address] Dr. Oh Trotter WBC 6.4 103/ul Normal 4.0-11.0 [facility] Comment on above: Performed By: #### P TT, PT #### [facility] [address] [place] [address] Dr. Oh Trotter PROF 14(COMP METB)on 023 Albumin [Mass/Vol] 3.5 g/dL Normal 3.4-5.0 [facility] Comment on above: Performed By: #### L IPA, CMP, HSTROPN #### [facility] [address] [place] [address] Dr. Oh Trotter Albumin/Globulin [Mass ratio] 0.7 {ratio} Normal [facility] Comment on above: Performed By: #### L IPA, CMP, HSTROPN #### [facility] [address] [place] [address] Dr. Oh Trotter ALP [Catalytic activity/Vol] 85 U/L Normal 46-116 [facility] Comment on above: Performed By: #### L IPA, CMP, HSTROPN #### [facility] [address] [place] [address] [address] Oh Trotter ALT [Catalytic activity/Vol] 34 U/L Normal 16-63 [facility] Comment on above: Performed By: #### L IPA, CMP, HSTROPN #### [facility] [address] [place] [address] [address] Oh Trotter Anion gap [Moles/Vol] 13.3 mmol/L Normal [facility] Comment on above: Performed By: #### L IPA, CMP, HSTROPN #### [facility] [address] [place] [address] [address] Oh Trotter AST [Catalytic activity/Vol] 18 U/L Normal 15-37 [facility] Comment on above: Performed By: #### L IPA, CMP, HSTROPN #### [facility] [address] [place] [address] Dr. Oh Trotter Bilirubin [Mass/Vol] 0.4 mg/dL Normal 0.2-1.0 [facility] Comment on above: Performed By: #### L IPA, CMP, HSTROPN #### [facility] [address] [place] [address] [address] Oh Trotter Calcium [Mass/Vol] 8.9 mg/dL Normal 8.5-10.1 [facility] Comment on above: Performed By: #### L IPA, CMP, HSTROPN #### [facility] [address] [place] [address] [address] Oh Trotter Chloride [Moles/Vol] 105 mmol/L Normal 98-107 [facility] Comment on above: Performed By: #### L IPA, CMP, HSTROPN #### [facility] [address] [place] [address] [address] Oh Trotter CO2 [Moles/Vol] 24.7 mmol/L Normal 21.0-32.0 [facility] Comment on above: Performed By: #### L IPA, CMP, HSTROPN #### [facility] [address] [place] [address] [address] Oh Trotter Creatinine [Mass/Vol] 0.88 mg/dL Normal 0.70-1.30 [facility] Comment on above: Performed By: #### L IPA, CMP, HSTROPN #### [facility] [address] [place] [address] [address] Oh Trotter EGFR-AF SOUTH [place]OREAN >60 Normal >=60 [facility] Comment on above: Performed By: #### L IPA, CMP, HSTROPN #### [facility] [address] [place] [address] [address] Oh Trotter EGFR-NON AF [place]OREAN >60 Normal >=60 [facility] Comment on above: Performed By: #### L IPA, CMP, HSTROPN #### [facility] [address] [place] [address] [address] Oh Trotter Globulin (S) [Mass/Vol] 4.8 g/dL Normal [facility] Comment on above: Performed By: #### L IPA, CMP, HSTROPN #### [facility] [address] [place] [address] [address] Oh Trotter Glucose [Mass/Vol] 113 mg/dL Critically high 74-106 [facility] Comment on above: Performed By: #### L IPA, CMP, HSTROPN #### [facility] [address] [place] [address] Dr. Oh Trotter Potassium [Moles/Vol] 4.0 mmol/L Normal 3.5-5.1 [facility] Comment on above: Performed By: #### L IPA, CMP, HSTROPN #### [facility] [address] [place] [address] Dr. Oh Trotter Protein [Mass/Vol] 8.3 g/dL Critically high 6.4-8.2 [facility] Comment on above: Performed By: #### L IPA, CMP, HSTROPN #### [facility] [address] [place] [address] [address] Oh Trotter Sodium [Moles/Vol] 139 mmol/L Normal 136-145 [facility] Comment on above: Performed By: #### L IPA, CMP, HSTROPN #### [facility] [address] [place] [address] [address] Oh Trotter Urea nitrogen [Mass/Vol] 15.0 mg/dL Normal 7.0-18.0 [facility] Comment on above: Performed By: #### L IPA, CMP, HSTROPN #### [facility] [address] [place] [address] [address] Oh Trotter Urea nitrogen/Creatinine [Mass ratio] 17.0 mg/mg Normal [facility] Comment on above: Performed By: #### L IPA, CMP, HSTROPN #### [facility] [address] [place] [address] [address] Oh Trotter XR ABD FLAT UP_PA [...] Date: 2022-07-28 22:14 Normal [facility] CBC AUTO DIFFon 07-28-2022 BASO # 0.0 103/ul Normal 0.0-0.1 [facility] Comment on above: Performed By: #### L IPA, CMP, HSTROPN #### [facility] [address] [place] [address] [address] Oh Trotter Basophils/100 WBC (Bld) 0.2 % Normal 0.2-2.0 [facility] Comment on above: Performed By: #### L IPA, CMP, HSTROPN #### [facility] [address] [place] [address] Dr. Oh Trotter EO # 0.1 103/ul Normal 0.0-0.7 [facility] Comment on above: Performed By: #### L IPA, CMP, HSTROPN #### [facility] [address] [place] [address] Dr. Oh Trotter Eosinophils/100 WBC (Bld) 0.9 % Normal 0.9-7.0 [facility] Comment on above: Performed By: #### L IPA, CMP, HSTROPN #### [facility] [address] [place] [address] Dr. Oh Trotter Erythrocyte distribution width (RBC) [Ratio] 12.4 % Normal 11.0-15.0 [facility] Comment on above: Performed By: #### L IPA, CMP, HSTROPN #### [facility] [address] [place] [address] Dr. Oh Trotter Hematocrit (Bld) [Volume fraction] 44.8 % Normal 42.0-54.0 [facility] Comment on above: Performed By: #### L IPA, CMP, HSTROPN #### [facility] [address] [place] [address] Dr. Oh Trotter Hemoglobin (Bld) [Mass/Vol] 15.7 g/dL Normal 14.0-18.0 [facility] Comment on above: Performed By: #### L IPA, CMP, HSTROPN #### [facility] [address] [place] [address] Dr. Oh Trotter IG # 0.02 10e3/ul Normal 0.00-0.03 [facility] Comment on above: Performed By: #### L IPA, CMP, HSTROPN #### [facility] [address] [place] [address] Dr. Oh Trotter IG % 0.2 % Normal 0.0-0.5 [facility] Comment on above: Performed By: #### L IPA, CMP, HSTROPN #### [facility] [address] [place] [address] Dr. Oh Trotter LYMPH # 3.2 103/ul Normal 1.2-3.8 [facility] Comment on above: Performed By: #### L IPA, CMP, HSTROPN #### [facility] [address] [place] [address] Dr. Oh Trotter Lymphocytes/100 WBC (Bld) 39.2 % Normal 20.5-60.0 [facility] Comment on above: Performed By: #### L IPA, CMP, HSTROPN #### [facility] [address] [place] [address] Dr. Oh Trotter MANUAL DIFF REQ NO Normal [facility] Comment on above: Performed By: #### L IPA, CMP, HSTROPN #### [facility] [address] [place] [address] Dr. Oh Trotter MCH (RBC) [Entitic mass] 29.3 pg Normal 25.9-34.0 [facility] Comment on above: Performed By: #### L IPA, CMP, HSTROPN #### [facility] [address] [place] [address] Dr. Oh Trotter MCHC (RBC) [Mass/Vol] 35.0 g/dL Normal 29.9-35.2 [facility] Comment on above: Performed By: #### L IPA, CMP, HSTROPN #### [facility] [address] [place] [address] Dr. Oh Trotter MCV (RBC) [Entitic vol] 83.7 fL Normal 80.0-94.0 [facility] Comment on above: Performed By: #### L IPA, CMP, HSTROPN #### [facility] [address] [place] [address] Dr. Oh Trotter MONO # 0.6 103/ul Normal 0.3-0.8 [facility] Comment on above: Performed By: #### L IPA, CMP, HSTROPN #### [facility] [address] [place] [address] Dr. Oh Trotter Monocytes/100 WBC (Bld) 7.5 % Normal 1.7-12.0 [facility] Comment on above: Performed By: #### L IPA, CMP, HSTROPN #### [facility] [address] [place] [address] Dr. Oh Trotter NEUT # 4.3 103/ul Normal 1.4-6.5 [facility] Comment on above: Performed By: #### L IPA, CMP, HSTROPN #### [facility] [address] [place] [address] Dr. Oh Trotter Neutrophils/100 WBC (Bld) 52.0 % Normal 43.0-75.0 [facility] Comment on above: Performed By: #### L IPA, CMP, HSTROPN #### [facility] [address] [place] [address] Dr. Oh Trotter Platelet mean volume (Bld) [Entitic vol] 9.8 fL Normal 9.5-13.5 [facility] Comment on above: Performed By: #### L IPA, CMP, HSTROPN #### [facility] [address] [place] [address] Dr. Oh Trotter PLT 210 103/ul Normal 150-450 [facility] Comment on above: Performed By: #### L IPA, CMP, HSTROPN #### [facility] [address] [place] [address] Dr. Oh Trotter RBC 5.35 106/ul Normal 4.70-6.10 [facility] Comment on above: Performed By: #### L IPA, CMP, HSTROPN #### [facility] [address] [place] [address] Dr. Oh Trotter WBC 8.2 103/ul Normal 4.0-11.0 [facility] Comment on above: Performed By: #### L IPA, CMP, HSTROPN #### [facility] [address] [place] [address] Dr. Oh Trotter OCC BLD IMMUNOASSAYon 2022 OCCULT BLOOD Positive Abnormal NEGATIVE [facility] Comment on above: Performed By: #### P TT, PT #### [facility] [address] [place] [address] Dr. Oh Trotter PROF 14(COMP METB)on 023 Albumin [Mass/Vol] 3.9 g/dL Normal 3.4-5.0 [facility] Comment on above: Performed By: #### L IPA, CMP, HSTROPN #### [facility] [address] [place] [address] Dr. Oh Trotter Albumin/Globulin [Mass ratio] 0.9 {ratio} Normal [facility] Comment on above: Performed By: #### L IPA, CMP, HSTROPN #### [facility] [address] [place] [address] Dr. Oh Trotter ALP [Catalytic activity/Vol] 98 U/L Normal 46-116 [facility] Comment on above: Performed By: #### L IPA, CMP, HSTROPN #### [facility] [address] [place] [address] Dr. Oh Trotter ALT [Catalytic activity/Vol] 47 U/L Normal 16-63 [facility] Comment on above: Performed By: #### L IPA, CMP, HSTROPN #### [facility] [address] [place] [address] Dr. Oh Trotter Anion gap [Moles/Vol] 13.8 mmol/L Normal [facility] Comment on above: Performed By: #### L IPA, CMP, HSTROPN #### [facility] [address] [place] [address] Dr. Oh Trotter AST [Catalytic activity/Vol] 18 U/L Normal 15-37 [facility] Comment on above: Performed By: #### L IPA, CMP, HSTROPN #### [facility] [address] [place] [address] Dr. Oh Trotter Bilirubin [Mass/Vol] 0.3 mg/dL Normal 0.2-1.0 [facility] Comment on above: Performed By: #### L IPA, CMP, HSTROPN #### [facility] [address] [address] [address] Oh Trotter Calcium [Mass/Vol] 8.8 mg/dL Normal 8.5-10.1 [facility] Comment on above: Performed By: #### L IPA, CMP, HSTROPN #### [facility] [address] [address] [address] Oh Trotter Chloride [Moles/Vol] 105 mmol/L Normal 98-107 [facility] Comment on above: Performed By: #### L IPA, CMP, HSTROPN #### [facility] [address] [address] [address] Oh Trotter CO2 [Moles/Vol] 25.2 mmol/L Normal 21.0-32.0 [facility] Comment on above: Performed By: #### L IPA, CMP, HSTROPN #### [facility] [address] [address] [address] Oh Trotter Creatinine [Mass/Vol] 1.02 mg/dL Normal 0.70-1.30 [facility] Comment on above: Performed By: #### L IPA, CMP, HSTROPN #### [facility] [address] [place] [address] [address] Oh Trotter EGFR-AF [place]OU[place]ORE[place] >60 Normal >=60 [facility] Comment on above: Performed By: #### L IPA, CMP, HSTROPN #### [facility] [address] [address] [address] Oh Trotter EGFR-NON AF [place] >60 Normal >=60 [facility] Comment on above: Performed By: #### L IPA, CMP, HSTROPN #### [facility] [address] [address] [address] Oh Trotter Globulin (S) [Mass/Vol] 4.2 g/dL Normal [facility] Comment on above: Performed By: #### L IPA, CMP, HSTROPN #### [facility] [address] [address] [address] Oh Trotter Glucose [Mass/Vol] 104 mg/dL Normal 74-106 The [facility] Comment on above: Performed By: #### L IPA, CMP, HSTROPN #### [facility] [address] [address] [address] Oh Trotter Potassium [Moles/Vol] 4.0 mmol/L Normal 3.5-5.1 [facility] Comment on above: Performed By: #### L IPA, CMP, HSTROPN #### [facility] [address] [place] [address] Dr. Oh Trotter Protein [Mass/Vol] 8.1 g/dL Normal 6.4-8.2 [facility] Comment on above: Performed By: #### L IPA, CMP, HSTROPN #### [facility] [address] [place] [address] Dr. Oh Trotter Sodium [Moles/Vol] 140 mmol/L Normal 136-145 [facility] Comment on above: Performed By: #### L IPA, CMP, HSTROPN #### [facility] [address] [place] [address] Dr. Oh Trotter Urea nitrogen [Mass/Vol] 16.0 mg/dL Normal 7.0-18.0 [facility] Comment on above: Performed By: #### L IPA, CMP, HSTROPN #### [facility] [address] [place] [address] Dr. Oh Trotter Urea nitrogen/Creatinine [Mass ratio] 15.7 mg/mg Normal The [facility] Comment on above: Performed By: #### L IPA, CMP, HSTROPN #### [facility] [address] [place] [address] Dr. Oh Trotter PROTIMEon 07-28-2022 INR Coag (PPP) [Relative time] {INR} Normal The [facility] Comment on above: Performed By: #### P TT, PT #### [facility] [address] [place] [address] Dr. Oh Trotter INR GUIDELINES SEE BELOW Normal The [facility] Comment on above: Result Comment: ADITHYA RED INR: 2.0 - 3.0 CONDITIONS NOT LISTED BELOW 2.5 - 3.5 FOR PROSTHETIC HEART VALVE REPLACEMENT 2.5 - 3.5 RECURRENT THROMBOSIS Performed By: #### P TT, PT #### [facility] [address] [address] [address] Oh Trotter PT Coag (PPP) [Time] 9.8 s Normal 9.0-11.6 The [facility] Comment on above: Performed By: #### P TT, PT #### [facility] [address] [address] [address] Oh Trotter PTTon 07-28-2022 aPTT Coag (Bld) [Time] 26.6 s Normal 22.3-36.2 The [facility] Comment on above: Performed By: #### P TT, PT #### [facility] [address] [place] [address] Dr. Oh Trotter Covid-19 PCR ([facility])on SARS-CoV-2 (COVID-19) RNA SHAE+probe Ql (Unsp spec) Not detected Normal NOT DETECTED The [facility] Comment on above: Result Comment: This test is not yet approved or cleared by the [place] FDA. When there are no FDA-approved or cleared tests available, and other criteria are met, FDA can make tests available under an emergency access mechanism called an Emergency Use Authorization (EUA). The EUA for this test is supported by the [employer] Operator of Health and Human Service's (HHS's) declaration [...] #### P TT, PT #### [facility] [address] [place] [address] Dr. Oh Trotter INFLUENZA A AND B AGon 05-11 INFLUANEGH SEE BELOW Normal The [facility] Comment on above: Result Comment: Nega tive for Flu A protein angiten. Infection due to Flu A cannot be ruled out. Flu A angiten in the sample may be below the detection limit of the test. Performed By: #### L IPA, CMP, HSTROPN #### [facility] [address] [place] [address] Dr. Oh [facility] Normal [facility] Comment on above: Result Comment: Nega tive for Flu B protein antigen. Infection due to Flu B cannot be ruled out. Flu B antigen in the sample may be below the detection limit of the test. Performed By: #### L IPA, CMP, HSTROPN #### [facility] [address] [place] [address] Dr. Oh Trotter INFLUENZA A AG Negative Normal NEGATIVE SEE COMMENT [facility] Comment on above: Performed By: #### L IPA, CMP, HSTROPN #### [facility] [address] [place] [address] Dr. Oh Trotter INFLUENZA B AG Negative Normal NEGATIVE SEE COMMENT The [facility] Comment on above: Performed By: #### L IPA, CMP, HSTROPN #### [facility] [address] [place] [address] Dr. Oh Trotter CBC AUTO DIFFon 03-06-2022 BASO # 0.0 103/ul Normal 0.0-0.1 The [facility] Comment on above: Performed By: #### P TT, PT #### [facility] [address] [place] [address] Dr. Oh Trotter Basophils/100 WBC (Bld) 0.2 % Normal 0.2-2.0 The [facility] Comment on above: Performed By: #### P TT, PT #### [facility] [address] [place] [address] Dr. Oh Trotter EO # 0.0 103/ul Normal 0.0-0.7 The [facility] Comment on above: Performed By: #### P TT, PT #### [facility] [address] [place] [address] Dr. Oh Trotter Eosinophils/100 WBC (Bld) 0.4 % Critically low 0.9-7.0 [facility] Comment on above: Performed By: #### P TT, PT #### [facility] [address] [place] [address] Dr. Oh Trotter Erythrocyte distribution width (RBC) [Ratio] 12.2 % Normal 11.0-15.0 [facility] Comment on above: Performed By: #### P TT, PT #### [facility] [address] [place] [address] Dr. Oh Trotter Hematocrit (Bld) [Volume fraction] 45.7 % Normal 42.0-54.0 [facility] Comment on above: Performed By: #### P TT, PT #### [facility] [address] [place] [address] Dr. Oh Trotter Hemoglobin (Bld) [Mass/Vol] 16.0 g/dL Normal 14.0-18.0 [facility] Comment on above: Performed By: #### P TT, PT #### [facility] [address] [place] [address] Dr. Oh Trotter IG # 0.04 10e3/ul Critically high 0.00-0.03 [facility] Comment on above: Performed By: #### P TT, PT #### [facility] [address] [place] [address] Dr. Oh Trotter IG % 0.4 % Normal 0.0-0.5 [facility] Comment on above: Performed By: #### P TT, PT #### [facility] [address] [place] [address] Dr. Oh Trotter LYMPH # 2.8 103/ul Normal 1.2-3.8 The [facility] Comment on above: Performed By: #### P TT, PT #### [facility] [address] [place] [address] Dr. hO Trotter Lymphocytes/100 WBC (Bld) 29.5 % Normal 20.5-60.0 [facility] Comment on above: Performed By: #### P TT, PT #### [facility] [address] [place] [address] Dr. Oh Trotter MANUAL DIFF REQ NO Normal [facility] Comment on above: Performed By: #### P TT, PT #### [facility] [address] [place] [address] Dr. Oh Trotter MCH (RBC) [Entitic mass] 29.7 pg Normal 25.9-34.0 The [facility] Comment on above: Performed By: #### P TT, PT #### [facility] [address] [place] [address] Dr. Oh Trotter MCHC (RBC) [Mass/Vol] 35.0 g/dL Normal 29.9-35.2 The [facility] Comment on above: Performed By: #### P TT, PT #### [facility] [address] [place] [address] Dr. Oh Trotter MCV (RBC) [Entitic vol] 84.8 fL Normal 80.0-94.0 The [facility] Comment on above: Performed By: #### P TT, PT #### [facility] [address] [place] [address] Dr. Oh Trotter MONO # 0.5 103/ul Normal 0.3-0.8 The [facility] Comment on above: Performed By: #### P TT, PT #### [facility] [address] [place] [address] Dr. Oh Trotter Monocytes/100 WBC (Bld) 5.2 % Normal 1.7-12.0 [facility] Comment on above: Performed By: #### P TT, PT #### [facility] [address] [place] [address] Dr. Oh Trotter NEUT # 6.2 103/ul Normal 1.4-6.5 The [facility] Comment on above: Performed By: #### P TT, PT #### [facility] [address] [place] [address] Dr. Oh Trotter Neutrophils/100 WBC (Bld) 64.3 % Normal 43.0-75.0 The [facility] Comment on above: Performed By: #### P TT, PT #### [facility] [address] [address] [address] Oh Trotter Platelet mean volume (Bld) [Entitic vol] 9.9 fL Normal 9.5-13.5 The [facility] Comment on above: Performed By: #### P TT, PT #### [facility] [address] [address] [address] Oh Trotter PLT 196 103/ul Normal 150-450 The [facility] Comment on above: Performed By: #### P TT, PT #### [facility] [address] [address] [address] Oh Trotter RBC 5.39 106/ul Normal 4.70-6.10 The [facility] Comment on above: Performed By: #### P TT, PT #### [facility] [address] [place] [address] Dr. Oh Trotter WBC 9.6 103/ul Normal 4.0-11.0 The [facility] Comment on above: Performed By: #### P TT, PT #### [facility] [address] [place] [address] Dr. Oh Trotter D-DIMERon 03-06-2022 D-DIMER <0.19 Normal <=0.59 The [facility] Comment on above: Performed By: #### P TT, PT #### [facility] [address] [place] [address] Dr. Oh Trotter D-DIMER COMMENTS SEE BELOW Normal The [facility] Comment on above: Result Comment: Incr [...] #### P TT, PT #### [facility] [address] [place] [address] Dr. Oh Trotter ER URINE PROFILEon 2 Bilirubin Ql (U) Negative Normal NEGATIVE [facility] Comment on above: Performed By: #### Marcelo GLOVER UMICRO #### [facility] [address] [place] [address] Dr. Oh Trotter Clarity (U) CLEAR Normal CLEAR [facility] Comment on above: Performed By: #### Marcelo GLOVER UMICRO #### [facility] [address] [address] [address] Oh Trotter Color (U) LT. YELLOW Normal YELLOW [facility] Comment on above: Performed By: #### Marcelo GLOVER UMICRO #### [facility] [address] [place] [address] Dr. Oh OLIVA A micrscopic examination will be performed if indicated. Normal The [facility] Comment on above: Performed By: #### Marcelo GLOVER UMICRO #### [facility] [address] [place] [address] Dr. Oh Trotter Glucose Ql (U) Negative Normal NEGATIVE The [facility] Comment on above: Performed By: #### Marcelo GLOVER UMICRO #### [facility] [address] [place] [address] Dr. Oh Trotter Hemoglobin Ql (U) SMALL Abnormal NEGATIVE [facility] Comment on above: Performed By: #### Marcelo GLOVER UMICRO #### [facility] [address] [place] [address] Dr. Oh Trotter Ketones Ql (U) Negative Normal NEGATIVE [facility] Comment on above: Performed By: #### Marcelo GLOVER UMICRO #### [facility] [address] [place] [address] Dr. Oh Trotter LEUKOCYTES Negative Normal NEGATIVE [facility] Comment on above: Performed By: #### Marcelo GLOVER UMICRO #### [facility] [address] [place] [address] Dr. Oh Trotter Nitrite Ql (U) Negative Normal NEGATIVE [facility] Comment on above: Performed By: #### Marcelo GLOVER UMICRO #### [facility] [address] [place] [address] Dr. Oh Trotter pH (U) 6.0 [pH] Normal 5-9 [facility] Comment on above: Performed By: #### OSVALDO STONER #### [facility] [address] [place] [address] Dr. Oh Trotter SPEC GRAVITY 1.025 Normal 1.005-<=1.025 [facility] Comment on above: Performed By: #### OSVALDO STONER #### [facility] [address] [place] [address] Dr. Oh Trotter UA PROTEIN Negative Normal NEGATIVE/ TRACE [facility] Comment on above: Performed By: #### OSVALDO SOTNER #### [facility] [address] [place] [address] Dr. Oh Trotter UR MICRO IND INDICATED Normal [facility] Comment on above: Performed By: #### OSVALDO STONER #### [facility] [address] [place] [address] Dr. Oh Trotter Urobilinogen Qn (U) 0.2 {Federico'U}/dL Normal 0.2 - 1. 0 [facility] Comment on above: Performed By: #### OSVALDO STONER #### [facility] [address] [place] [address] Dr. Oh Trotter LIPASEon 03-06-2022 Lipase [Catalytic activity/Vol] 125.0 U/L Normal 73.0-393.0 [facility] Comment on above: Performed By: #### L IPA, CMP, HSTROPN #### [facility] [address] [place] [address] Dr. Oh Trotter PROF 14(COMP METB)on 022 Albumin [Mass/Vol] 3.8 g/dL Normal 3.4-5.0 [facility] Comment on above: Performed By: #### L IPA, CMP, HSTROPN #### [facility] [address] [place] [address] Dr. Oh Trotter Albumin/Globulin [Mass ratio] 0.8 {ratio} Normal [facility] Comment on above: Performed By: #### L IPA, CMP, HSTROPN #### [facility] [address] [address] [address] Oh Trotter ALP [Catalytic activity/Vol] 77 U/L Normal 46-116 [facility] Comment on above: Performed By: #### L IPA, CMP, HSTROPN #### [facility] [address] [place] [address] Dr. Oh Trotter ALT [Catalytic activity/Vol] 39 U/L Normal 16-63 [facility] Comment on above: Performed By: #### L IPA, CMP, HSTROPN #### [facility] [address] [place] [address] Dr. Oh Trotter Anion gap [Moles/Vol] 9.3 mmol/L Normal [facility] Comment on above: Performed By: #### L IPA, CMP, HSTROPN #### [facility] [address] [place] [address] Dr. Oh Trotter AST [Catalytic activity/Vol] 21 U/L Normal 15-37 [facility] Comment on above: Performed By: #### L IPA, CMP, HSTROPN #### [facility] [address] [place] [address] Dr. Oh Trotter Bilirubin [Mass/Vol] 0.4 mg/dL Normal 0.2-1.0 [facility] Comment on above: Performed By: #### L IPA, CMP, HSTROPN #### [facility] [address] [place] [address] Dr. Oh Trotter Calcium [Mass/Vol] 9.2 mg/dL Normal 8.5-10.1 [facility] Comment on above: Performed By: #### L IPA, CMP, HSTROPN #### [facility] [address] [place] [address] Dr. Oh Trotter Chloride [Moles/Vol] 102 mmol/L Normal 98-107 [facility] Comment on above: Performed By: #### L IPA, CMP, HSTROPN #### [facility] [address] [address] [address] Oh Trotter CO2 [Moles/Vol] 26.6 mmol/L Normal 21.0-32.0 [facility] Comment on above: Performed By: #### L IPA, CMP, HSTROPN #### [facility] [address] [address] [address] Oh Trotter Creatinine [Mass/Vol] 1.08 mg/dL Normal 0.70-1.30 [facility] Comment on above: Performed By: #### L IPA, CMP, HSTROPN #### [facility] [address] [address] [address] Oh Trotter EGFR-AF SOUTH [place]OREAN >60 Normal >=60 [facility] Comment on above: Performed By: #### L IPA, CMP, HSTROPN #### [facility] [address] [place] [address] Dr. Oh Trotter EGFR-NON AF [place]ORE[place] >60 Normal >=60 [facility] Comment on above: Performed By: #### L IPA, CMP, HSTROPN #### [facility] [address] [address] [address] Oh Trotter Globulin (S) [Mass/Vol] 4.7 g/dL Normal [facility] Comment on above: Performed By: #### L IPA, CMP, HSTROPN #### [facility] [address] [place] [address] Dr. Oh Trotter Glucose [Mass/Vol] 103 mg/dL Normal 74-106 [facility] Comment on above: Performed By: #### L IPA, CMP, HSTROPN #### [facility] [address] [address] [address] Oh Trotter Potassium [Moles/Vol] 3.9 mmol/L Normal 3.5-5.1 [facility] Comment on above: Performed By: #### L IPA, CMP, HSTROPN #### [facility] [address] [address] [address] Oh Trotter Protein [Mass/Vol] 8.5 g/dL Critically high 6.4-8.2 [facility] Comment on above: Performed By: #### L IPA, CMP, HSTROPN #### [facility] [address] [address] [address] Oh Trotter Sodium [Moles/Vol] 134 mmol/L Critically low 136-145 Th e [facility] Comment on above: Performed By: #### L IPA, CMP, HSTROPN #### [facility] [address] [place] [address] Dr. Oh Trotter Urea nitrogen [Mass/Vol] 20.0 mg/dL Critically high 7.0-18.0 [facility] Comment on above: Performed By: #### L IPA, CMP, HSTROPN #### [facility] [address] [place] [address] Dr. Oh Trotter Urea nitrogen/Creatinine [Mass ratio] 18.5 mg/mg Normal [facility] Comment on above: Performed By: #### L IPA, CMP, HSTROPN #### [facility] [address] [place] [address] Dr. Oh Trtoter PROTIMEon 03-06-2022 INR Coag (PPP) [Relative time] 1.00 {INR} Normal [facility] Comment on above: Performed By: #### P TT, PT #### [facility] [address] [place] [address] Dr. Oh Trotter INR GUIDELINES SEE BELOW Normal [facility] Comment on above: Result Comment: ADITHYA RED INR: 2.0 - 3.0 CONDITIONS NOT LISTED BELOW 2.5 - 3.5 FOR PROSTHETIC HEART VALVE REPLACEMENT 2.5 - 3.5 RECURRENT THROMBOSIS Performed By: #### P TT, PT #### [facility] [address] [place] [address] Dr. Oh Trotter PT Coag (PPP) [Time] 10.8 s Normal 9.0-11.6 [facility] Comment on above: Performed By: #### P TT, PT #### [facility] [address] [place] [address] Dr. Oh Trotter PTTon 03-06-2022 aPTT Coag (Bld) [Time] 27.9 s Normal 22.3-36.2 The [facility] Comment on above: Performed By: #### P TT, PT #### [facility] [address] [place] [address] Dr. Oh Trotter TROPONIN, HIGH SENSITIVITYon 03-06-2022 HSTROP 7.9 pg/mL Normal 4.0-76.1 The [facility] Comment on above: Result Comment: CUT- OFF POINTS HAVE BEEN ESTABLISHED BASED ON THE FOURTH UNIVERSAL DEFINITIONS OF MYOCARDIAL INFARCTION. THE UPPER REFERENCE LIMIT (URL) OF TROPONIN, DEFINED THE 99TH PERCENTILE OF cTnI DISTRIBUTION IN A REFERENCE POPULATION, HAS BEEN CONFIRMED THE DECISION THRESHOLD FOR [place] DIAGNOSIS. Performed By: #### L IPA, CMP, HSTROPN #### [facility] [address] [place] [address] Dr. Oh Trotter URINE MICROSCOPIC ONLYon BACTERIA NONE SEEN Normal NONE SEEN The [facility] Comment on above: Performed By: #### Marcelo GLOVER UMICRO #### [facility] [address] [place] [address] Dr. Oh Trotter Bacteria identified Cx Nom (U) NOT INDICATED Normal The [facility] Comment on above: Performed By: #### Marcelo GLOVER UMICRO #### [facility] [address] [place] [address] Dr. Oh Trotter CAST NONE SEEN Normal NONE SEEN The [facility] Comment on above: Performed By: #### Marcelo GLOVER UMICRO #### [facility] [address] [place] [address] Dr. Oh Trotter Crystals LM Nom (Urine sed) NONE SEEN Normal NONE SEEN The [facility] Comment on above: Performed By: #### E RUR UMICRO #### [facility] [address] [place] [address] Dr. Oh Trotter Epithelial cells LM Ql (Urine sed) FEW Abnormal NONE SEEN /RARE The [facility] Comment on above: Performed By: #### E RUR, UMICRO #### [facility] [address] [place] [address] Dr. Oh Trotter MUCOUS MODERATE Abnormal NONE SEEN The [facility] Comment on above: Performed By: #### E RURAUBRIEICRO #### [facility] [address] [address] [address] Oh Trotter RBC 0-2 Normal 0-2 [facility] Comment on above: Performed By: #### E MATHIEU GLOVERRO #### [facility] [address] [address] [address] Oh Trotter WBC NONE SEEN Normal NONE SEEN The [facility] Comment on above: Performed By: #### E ADALBERTO UMICRO #### [facility] [address] [address] [address] Oh Trotter XR ABD FLAT UP_PA [...] Date: 2022-03-06 15:55 Normal The [facility] XR CSPINE 2_3 VIEWSon 2021 XR [...] by: LUCY JEWELL Date: 2022-03-06 15:54 Normal [facility] CBC AUTO DIFFon 11-02-2021 BASO # 0.0 103/ul Normal 0.0-0.1 [facility] Comment on above: Performed By: #### L IPA, CMP, HSTROPN #### [facility] [address] [place] [address] Dr. Oh Trotter Basophils/100 WBC (Bld) 0.2 % Normal 0.2-2.0 [facility] Comment on above: Performed By: #### L IPA, CMP, HSTROPN #### [facility] [address] [place] [address] Dr. Oh Trotter EO # 0.1 103/ul Normal 0.0-0.7 The [facility] Comment on above: Performed By: #### L IPA, CMP, HSTROPN #### [facility] [address] [place] [address] Dr. Oh Trotter Eosinophils/100 WBC (Bld) 1.0 % Normal 0.9-7.0 The [facility] Comment on above: Performed By: #### L IPA, CMP, HSTROPN #### [facility] [address] [place] [address] Dr. Oh Trotter Erythrocyte distribution width (RBC) [Ratio] 13.0 % Normal 11.0-15.0 [facility] Comment on above: Performed By: #### L IPA, CMP, HSTROPN #### [facility] [address] [place] [address] Dr. Oh Trotter Hematocrit (Bld) [Volume fraction] 46.6 % Normal 42.0-54.0 The [facility] Comment on above: Performed By: #### L IPA, CMP, HSTROPN #### [facility] [address] [place] [address] Dr. Oh Trotter Hemoglobin (Bld) [Mass/Vol] 15.8 g/dL Normal 14.0-18.0 The [facility] Comment on above: Performed By: #### L IPA, CMP, HSTROPN #### [facility] [address] [place] [address] Dr. Oh Trotter IG # 0.02 10e3/ul Normal 0.00-0.03 [facility] Comment on above: Performed By: #### L IPA, CMP, HSTROPN #### [facility] [address] [address] [address] Oh Trotter IG % 0.2 % Normal 0.0-0.5 The [facility] Comment on above: Performed By: #### L IPA, CMP, HSTROPN #### [facility] [address] [address] [address] Oh Trotter LYMPH # 1.6 103/ul Normal 1.2-3.8 The [facility] Comment on above: Performed By: #### L IPA, CMP, HSTROPN #### [facility] [address] [place] [address] Dr. Oh Trotter Lymphocytes/100 WBC (Bld) 15.3 % Critically low 20.5-60.0 [facility] Comment on above: Performed By: #### L IPA, CMP, HSTROPN #### [facility] [address] [place] [address] Dr. Oh Trotter MANUAL DIFF REQ NO Normal [facility] Comment on above: Performed By: #### L IPA, CMP, HSTROPN #### [facility] [address] [place] [address] Dr. Oh Trotter MCH (RBC) [Entitic mass] 30.1 pg Normal 25.9-34.0 [facility] Comment on above: Performed By: #### L IPA, CMP, HSTROPN #### [facility] [address] [place] [address] Dr. Oh Trotter MCHC (RBC) [Mass/Vol] 33.9 g/dL Normal 29.9-35.2 [facility] Comment on above: Performed By: #### L IPA, CMP, HSTROPN #### [facility] [address] [place] [address] Dr. Oh Trotter MCV (RBC) [Entitic vol] 88.8 fL Normal 80.0-94.0 [facility] Comment on above: Performed By: #### L IPA, CMP, HSTROPN #### [facility] [address] [place] [address] Dr. Oh Trotter MONO # 0.7 103/ul Normal 0.3-0.8 [facility] Comment on above: Performed By: #### L IPA, CMP, HSTROPN #### [facility] [address] [place] [address] Dr. Oh Trotter Monocytes/100 WBC (Bld) 6.8 % Normal 1.7-12.0 [facility] Comment on above: Performed By: #### L IPA, CMP, HSTROPN #### [facility] [address] [address] [address] Oh Trotter NEUT # 7.9 103/ul Critically high 1.4-6.5 [facility] Comment on above: Performed By: #### L IPA, CMP, HSTROPN #### [facility] [address] [place] [address] Dr. Oh Trotter Neutrophils/100 WBC (Bld) 76.5 % Critically high 43.0-75.0 [facility] Comment on above: Performed By: #### L IPA, CMP, HSTROPN #### [facility] [address] [place] [address] Dr. Oh Trotter Platelet mean volume (Bld) [Entitic vol] 9.5 fL Normal 9.5-13.5 [facility] Comment on above: Performed By: #### L IPA, CMP, HSTROPN #### [facility] [address] [place] [address] Dr. Oh Trotter PLT 191 103/ul Normal 150-450 [facility] Comment on above: Performed By: #### L IPA, CMP, HSTROPN #### [facility] [address] [place] [address] Dr. Oh Trotter RBC 5.25 106/ul Normal 4.70-6.10 [facility] Comment on above: Performed By: #### L IPA, CMP, HSTROPN #### [facility] [address] [place] [address] Dr. Oh Trotter WBC 10.4 103/ul Normal 4.0-11.0 [facility] Comment on above: Performed By: #### L IPA, CMP, HSTROPN #### [facility] [address] [place] [address] Dr. Oh Trotter PROF CHEM 8 (BAS METB)on Anion gap [Moles/Vol] 9.7 mmol/L Normal [facility] Comment on above: Performed By: #### L IPA, CMP, HSTROPN #### [facility] [address] [address] [address] Oh Trotter Calcium [Mass/Vol] 8.9 mg/dL Normal 8.5-10.1 [facility] Comment on above: Performed By: #### L IPA, CMP, HSTROPN #### [facility] [address] [place] [address] Dr. Oh Trotter Chloride [Moles/Vol] 102 mmol/L Normal 98-107 [facility] Comment on above: Performed By: #### L IPA, CMP, HSTROPN #### [facility] [address] [place] [address] Dr. Oh Trotter CO2 [Moles/Vol] 29.1 mmol/L Normal 21.0-32.0 [facility] Comment on above: Performed By: #### L IPA, CMP, HSTROPN #### [facility] [address] [place] [address] Dr. Oh Trotter Creatinine [Mass/Vol] 1.10 mg/dL Normal 0.70-1.30 [facility] Comment on above: Performed By: #### L IPA, CMP, HSTROPN #### [facility] [address] [place] [address] Dr. Oh Trotter EGFR-AF SOU[place]OREAN >60 Normal >=60 [facility] Comment on above: Performed By: #### L IPA, CMP, HSTROPN #### [facility] [address] [place] [address] Dr. Oh Trotter EGFR-NON AF [place]OREAN >60 Normal >=60 [facility] Comment on above: Performed By: #### L IPA, CMP, HSTROPN #### [facility] [address] [place] [address] Dr. Oh Trotter Glucose [Mass/Vol] 114 mg/dL Critically high 74-106 [facility] Comment on above: Performed By: #### L IPA, CMP, HSTROPN #### [facility] [address] [address] [address] Oh Trotter Potassium [Moles/Vol] 3.8 mmol/L Normal 3.5-5.1 [facility] Comment on above: Performed By: #### L IPA, CMP, HSTROPN #### [facility] [address] [address] [address] Oh Trotter Sodium [Moles/Vol] 137 mmol/L Normal 136-145 [facility] Comment on above: Performed By: #### L IPA, CMP, HSTROPN #### [facility] [address] [address] [address] Oh Trotter Urea nitrogen [Mass/Vol] 10.0 mg/dL Normal 7.0-18.0 [facility] Comment on above: Performed By: #### L IPA, CMP, HSTROPN #### [facility] [address] [address] [address] Oh Trotter Urea nitrogen/Creatinine [Mass ratio] 9.1 mg/mg Normal [facility] Comment on above: Performed By: #### L IPA, CMP, HSTROPN #### [facility] [address] [address] [address] Oh Trotter CARDIAC SUKUMAR ADMITon 022 CK [Catalytic activity/Vol] 97 U/L Normal 39-308 [facility] Comment on above: Performed By: #### L IPA, CMP, HSTROPN #### [facility] [address] [address] [address] Oh Trotter CK.MB [Mass/Vol] 0.75 ng/mL Normal <=3.60 [facility] Comment on above: Performed By: #### L IPA, CMP, HSTROPN #### [facility] [address] [address] [address] Oh Trotter HSTROP 4.4 pg/mL Normal 4.0-76.1 [facility] Comment on above: Result Comment: CUT- OFF POINTS HAVE BEEN ESTABLISHED BASED ON THE FOURTH UNIVERSAL DEFINITIONS OF MYOCARDIAL INFARCTION. THE UPPER REFERENCE LIMIT (URL) OF TROPONIN, DEFINED THE 99TH PERCENTILE OF cTnI DISTRIBUTION IN A REFERENCE POPULATION, HAS BEEN CONFIRMED THE DECISION THRESHOLD FOR [place] DIAGNOSIS. Performed By: #### L IPA, CMP, HSTROPN #### [facility] [address] [place] [address] Dr. Oh Trotter CARON 54 ng/mL Normal 16-96 [facility] Comment on above: Performed By: #### L IPA, CMP, HSTROPN #### [facility] [address] [place] [address] Dr. Oh Trotter CBC AUTO DIFFon 10-16-2021 BASO # 0.0 103/ul Normal 0.0-0.1 [facility] Comment on above: Performed By: #### P TT, PT #### [facility] [address] [place] [address] Dr. Oh Trotter Basophils/100 WBC (Bld) 0.1 % Critically low 0.2-2.0 [facility] Comment on above: Performed By: #### P TT, PT #### [facility] [address] [place] [address] Dr. Oh Trotter EO # 0.0 103/ul Normal 0.0-0.7 [facility] Comment on above: Performed By: #### P TT, PT #### [facility] [address] [place] [address] Dr. Oh Trotter Eosinophils/100 WBC (Bld) 0.3 % Critically low 0.9-7.0 [facility] Comment on above: Performed By: #### P TT, PT #### [facility] [address] [place] [address] Dr. Oh Trotter Erythrocyte distribution width (RBC) [Ratio] 12.5 % Normal 11.0-15.0 [facility] Comment on above: Performed By: #### P TT, PT #### [facility] [address] [place] [address] Dr. Oh Trotter Hematocrit (Bld) [Volume fraction] 47.1 % Normal 42.0-54.0 [facility] Comment on above: Performed By: #### P TT, PT #### [facility] [address] [place] [address] Dr. Oh Trotter Hemoglobin (Bld) [Mass/Vol] 16.7 g/dL Normal 14.0-18.0 [facility] Comment on above: Performed By: #### P TT, PT #### [facility] [address] [place] [address] Dr. Oh Trotter IG # 0.02 10e3/ul Normal 0.00-0.03 [facility] Comment on above: Performed By: #### P TT, PT #### [facility] [address] [place] [address] Dr. Oh Trotter IG % 0.3 % Normal 0.0-0.5 [facility] Comment on above: Performed By: #### P TT, PT #### [facility] [address] [place] [address] Dr. Oh Trotter LYMPH # 2.3 103/ul Normal 1.2-3.8 [facility] Comment on above: Performed By: #### P TT, PT #### [facility] [address] [place] [address] Dr. Oh Trotter Lymphocytes/100 WBC (Bld) 31.7 % Normal 20.5-60.0 [facility] Comment on above: Performed By: #### P TT, PT #### [facility] [address] [place] [address] Dr. Oh Trotter MANUAL DIFF REQ NO Normal [facility] Comment on above: Performed By: #### P TT, PT #### [facility] [address] [place] [address] Dr. Oh Trotter MCH (RBC) [Entitic mass] 29.9 pg Normal 25.9-34.0 [facility] Comment on above: Performed By: #### P TT, PT #### [facility] [address] [place] [address] Dr. Oh Trotter MCHC (RBC) [Mass/Vol] 35.5 g/dL Critically high 29.9-35.2 [facility] Comment on above: Performed By: #### P TT, PT #### [facility] [address] [address] [address] Oh Trotter MCV (RBC) [Entitic vol] 84.4 fL Normal 80.0-94.0 [facility] Comment on above: Performed By: #### P TT, PT #### [facility] [address] [address] [address] Oh Trotter MONO # 0.4 103/ul Normal 0.3-0.8 [facility] Comment on above: Performed By: #### P TT, PT #### [facility] [address] [place] [address] Dr. Oh Trotter Monocytes/100 WBC (Bld) 4.9 % Normal 1.7-12.0 [facility] Comment on above: Performed By: #### P TT, PT #### [facility] [address] [place] [address] Dr. Oh Trotter NEUT # 4.6 103/ul Normal 1.4-6.5 [facility] Comment on above: Performed By: #### P TT, PT #### [facility] [address] [place] [address] Dr. Oh Trotter Neutrophils/100 WBC (Bld) 62.7 % Normal 43.0-75.0 [facility] Comment on above: Performed By: #### P TT, PT #### [facility] [address] [address] [address] Oh Trotter Platelet mean volume (Bld) [Entitic vol] 10.3 fL Normal 9.5-13.5 [facility] Comment on above: Performed By: #### P TT, PT #### [facility] [address] [place] [address] Dr. Oh Trotter PLT 225 103/ul Normal 150-450 [facility] Comment on above: Performed By: #### P TT, PT #### [facility] [address] [place] [address] Dr. Oh Trotter RBC 5.58 106/ul Normal 4.70-6.10 [facility] Comment on above: Performed By: #### P TT, PT #### [facility] [address] [place] [address] Dr. Oh Trotter WBC 7.3 103/ul Normal 4.0-11.0 [facility] Comment on above: Performed By: #### P TT, PT #### [facility] [address] [place] [address] Dr. Oh Trotter D-DIMERon 10-16-2021 D-DIMER <0.19 Normal <=0.59 [facility] Comment on above: Performed By: #### P TT, PT #### [facility] [address] [place] [address] Dr. Oh Trotter D-DIMER COMMENTS SEE BELOW Normal [facility] Comment on above: Result Comment: Incr [...] #### P TT, PT #### [facility] [address] [place] [address] Dr. Oh Trotter LIPASEon 10-16-2021 Lipase [Catalytic activity/Vol] 127.0 U/L Normal 73.0-393.0 [facility] Comment on above: Performed By: #### L IPA, CMP, HSTROPN #### [facility] [address] [place] [address] Dr. Oh Trotter PROF 14(COMP METB)on 022 Albumin [Mass/Vol] 4.0 g/dL Normal 3.4-5.0 [facility] Comment on above: Performed By: #### L IPA, CMP, HSTROPN #### [facility] [address] [address] [address] Oh Trotter Albumin/Globulin [Mass ratio] 0.9 {ratio} Normal [facility] Comment on above: Performed By: #### L IPA, CMP, HSTROPN #### [facility] [address] [address] [address] Oh Trotter ALP [Catalytic activity/Vol] 73 U/L Normal 46-116 [facility] Comment on above: Performed By: #### L IPA, CMP, HSTROPN #### [facility] [address] [address] [address] Oh Trotter ALT [Catalytic activity/Vol] 45 U/L Normal 16-63 [facility] Comment on above: Performed By: #### L IPA, CMP, HSTROPN #### [facility] [address] [place] [address] Dr. hO Trotter Anion gap [Moles/Vol] 15.4 mmol/L Normal [facility] Comment on above: Performed By: #### L IPA, CMP, HSTROPN #### [facility] [address] [address] [address] Oh Trotter AST [Catalytic activity/Vol] 25 U/L Normal 15-37 [facility] Comment on above: Performed By: #### L IPA, CMP, HSTROPN #### [facility] [address] [address] [address] Oh Trotter Bilirubin [Mass/Vol] 0.9 mg/dL Normal 0.2-1.0 [facility] Comment on above: Performed By: #### L IPA, CMP, HSTROPN #### [facility] [address] [address] [address] Oh Trotter Calcium [Mass/Vol] 9.3 mg/dL Normal 8.5-10.1 [facility] Comment on above: Performed By: #### L IPA, CMP, HSTROPN #### [facility] [address] [address] [address] Oh Trotter Chloride [Moles/Vol] 103 mmol/L Normal 98-107 [facility] Comment on above: Performed By: #### L IPA, CMP, HSTROPN #### [facility] [address] [address] [address] Oh Trotter CO2 [Moles/Vol] 20.4 mmol/L Critically low 21.0-32.0 [facility] Comment on above: Performed By: #### L IPA, CMP, HSTROPN #### [facility] [address] [address] [address] Oh Trotter Creatinine [Mass/Vol] 1.17 mg/dL Normal 0.70-1.30 [facility] Comment on above: Performed By: #### L IPA, CMP, HSTROPN #### [facility] [address] [place] [address] Dr. Oh Trotter EGFR-AF [place]OREAN >60 Normal >=60 [facility] Comment on above: Performed By: #### L IPA, CMP, HSTROPN #### [facility] [address] [place] [address] Dr. Oh Trotter EGFR-NON AF [place] >60 Normal >=60 [facility] Comment on above: Performed By: #### L IPA, CMP, HSTROPN #### [facility] [address] [place] [address] Dr. Oh Trotter Globulin (S) [Mass/Vol] 4.6 g/dL Normal [facility] Comment on above: Performed By: #### L IPA, CMP, HSTROPN #### [facility] [address] [place] [address] Dr. Oh Trotter Glucose [Mass/Vol] 127 mg/dL Critically high 74-106 [facility] Comment on above: Performed By: #### L IPA, CMP, HSTROPN #### [facility] [address] [place] [address] Dr. Oh Trotter Potassium [Moles/Vol] 3.8 mmol/L Normal 3.5-5.1 [facility] Comment on above: Performed By: #### L IPA, CMP, HSTROPN #### [facility] [address] [address] [address] Oh Trotter Protein [Mass/Vol] 8.6 g/dL Critically high 6.4-8.2 [facility] Comment on above: Performed By: #### L IPA, CMP, HSTROPN #### [facility] [address] [place] [address] Dr. Oh Trotter Sodium [Moles/Vol] 135 mmol/L Critically low 136-145 [facility] Comment on above: Performed By: #### L IPA, CMP, HSTROPN #### [facility] [address] [place] [address] Dr. Oh Trotter Urea nitrogen [Mass/Vol] 12.0 mg/dL Normal 7.0-18.0 [facility] Comment on above: Performed By: #### L IPA, CMP, HSTROPN #### [facility] [address] [place] [address] Dr. Oh Trotter Urea nitrogen/Creatinine [Mass ratio] 10.3 mg/mg Normal [facility] Comment on above: Performed By: #### L IPA, CMP, HSTROPN #### [facility] [address] [place] [address] Dr. Oh Trotter XR CHEST 1 Von [...] Date: 2021-10-16 13:09 Normal [facility] BNPon 09-15-2021 Natriuretic peptide B (Bld) [Mass/Vol] 9.0 pg/mL Normal <=450.0 [facility] Comment on above: Performed By: #### H STROPN, TSH, BNP, CMP #### [facility] [address] [place] [address] Dr. Oh Trotter CBC AUTO DIFFon 09-15-2021 BASO # 0.0 103/ul Normal 0.0-0.1 [facility] Comment on above: Performed By: #### L IPA, CMP, HSTROPN #### [facility] [address] [place] [address] Dr. Oh Trotter Basophils/100 WBC (Bld) 0.1 % Critically low 0.2-2.0 [facility] Comment on above: Performed By: #### L IPA, CMP, HSTROPN #### [facility] [address] [place] [address] Dr. Oh Trotter EO # 0.1 103/ul Normal 0.0-0.7 [facility] Comment on above: Performed By: #### L IPA, CMP, HSTROPN #### [facility] [address] [place] [address] Dr. Oh Trotter Eosinophils/100 WBC (Bld) 0.6 % Critically low 0.9-7.0 [facility] Comment on above: Performed By: #### L IPA, CMP, HSTROPN #### [facility] [address] [place] [address] Dr. Oh Trotter Erythrocyte distribution width (RBC) [Ratio] 12.5 % Normal 11.0-15.0 [facility] Comment on above: Performed By: #### L IPA, CMP, HSTROPN #### [facility] [address] [place] [address] Dr. Oh Trotter Hematocrit (Bld) [Volume fraction] 48.3 % Normal 42.0-54.0 [facility] Comment on above: Performed By: #### L IPA, CMP, HSTROPN #### [facility] [address] [place] [address] Dr. Oh Trotter Hemoglobin (Bld) [Mass/Vol] 16.7 g/dL Normal 14.0-18.0 [facility] Comment on above: Performed By: #### L IPA, CMP, HSTROPN #### [facility] [address] [address] [address] Oh Trotter IG # 0.01 10e3/ul Normal 0.00-0.03 [facility] Comment on above: Performed By: #### L IPA, CMP, HSTROPN #### [facility] [address] [place] [address] Dr. Oh Trotter IG % 0.1 % Normal 0.0-0.5 [facility] Comment on above: Performed By: #### L IPA, CMP, HSTROPN #### [facility] [address] [place] [address] Dr. Oh Trotter LYMPH # 3.5 103/ul Normal 1.2-3.8 [facility] Comment on above: Performed By: #### L IPA, CMP, HSTROPN #### [facility] [address] [place] [address] Dr. Oh Trotter Lymphocytes/100 WBC (Bld) 38.8 % Normal 20.5-60.0 [facility] Comment on above: Performed By: #### L IPA, CMP, HSTROPN #### [facility] [address] [place] [address] Dr. Oh Trotter MANUAL DIFF REQ NO Normal [facility] Comment on above: Performed By: #### L IPA, CMP, HSTROPN #### [facility] [address] [place] [address] Dr. Oh Trotter MCH (RBC) [Entitic mass] 29.3 pg Normal 25.9-34.0 [facility] Comment on above: Performed By: #### L IPA, CMP, HSTROPN #### [facility] [address] [place] [address] Dr. Oh Trotter MCHC (RBC) [Mass/Vol] 34.6 g/dL Normal 29.9-35.2 [facility] Comment on above: Performed By: #### L IPA, CMP, HSTROPN #### [facility] [address] [place] [address] Dr. Oh Trotter MCV (RBC) [Entitic vol] 84.9 fL Normal 80.0-94.0 [facility] Comment on above: Performed By: #### L IPA, CMP, HSTROPN #### [facility] [address] [place] [address] Dr. Oh Trotter MONO # 0.5 103/ul Normal 0.3-0.8 [facility] Comment on above: Performed By: #### L IPA, CMP, HSTROPN #### [facility] [address] [place] [address] Dr. Oh Trotter Monocytes/100 WBC (Bld) 5.4 % Normal 1.7-12.0 [facility] Comment on above: Performed By: #### L IPA, CMP, HSTROPN #### [facility] [address] [place] [address] Dr. Oh Trotter NEUT # 4.9 103/ul Normal 1.4-6.5 [facility] Comment on above: Performed By: #### L IPA, CMP, HSTROPN #### [facility] [address] [place] [address] Dr. Oh Trotter Neutrophils/100 WBC (Bld) 55.0 % Normal 43.0-75.0 [facility] Comment on above: Performed By: #### L IPA, CMP, HSTROPN #### [facility] [address] [place] [address] Dr. Oh Trotter Platelet mean volume (Bld) [Entitic vol] 9.7 fL Normal 9.5-13.5 [facility] Comment on above: Performed By: #### L IPA, CMP, HSTROPN #### [facility] [address] [place] [address] Dr. Oh Trotter PLT 227 103/ul Normal 150-450 [facility] Comment on above: Performed By: #### L IPA, CMP, HSTROPN #### [facility] [address] [place] [address] Dr. Oh Trotter RBC 5.69 106/ul Normal 4.70-6.10 [facility] Comment on above: Performed By: #### L IPA, CMP, HSTROPN #### [facility] [address] [address] [address] Oh Trotter WBC 8.9 103/ul Normal 4.0-11.0 [facility] Comment on above: Performed By: #### L IPA, CMP, HSTROPN #### [facility] [address] [address] [address] Oh Trotter D-DIMERon 09-15-2021 D-DIMER 0.19 mg/L FEU Normal <=0.59 [facility] Comment on above: Performed By: #### L IPA, CMP, HSTROPN #### [facility] [address] [address] [address] Oh Trotter D-DIMER COMMENTS SEE BELOW Normal [facility] Comment on above: Result Comment: Incr [...] L IPA, CMP, HSTROPN #### [facility] [address] [place] [address] Dr. Oh Trotter PROF 14(COMP METB)on 022 Albumin [Mass/Vol] 3.9 g/dL Normal 3.4-5.0 [facility] Comment on above: Performed By: #### H STROPN, TSH, BNP, CMP #### [facility] [address] [address] [address] Oh Trotter Albumin/Globulin [Mass ratio] 0.8 {ratio} Normal [facility] Comment on above: Performed By: #### H STROPN, TSH, BNP, CMP #### [facility] [address] [place] [address] Dr. Oh Trotter ALP [Catalytic activity/Vol] 73 U/L Normal 46-116 [facility] Comment on above: Performed By: #### H STROPN, TSH, BNP, CMP #### [facility] [address] [address] [address] Oh Trotter ALT [Catalytic activity/Vol] 48 U/L Normal 16-63 [facility] Comment on above: Performed By: #### H STROPN, TSH, BNP, CMP #### [facility] [address] [address] [address] Oh Trotter Anion gap [Moles/Vol] 14.9 mmol/L Normal [facility] Comment on above: Performed By: #### H STROPN, TSH, BNP, CMP #### [facility] [address] [address] [address] Oh Trotter AST [Catalytic activity/Vol] 22 U/L Normal 15-37 [facility] Comment on above: Performed By: #### H STROPN, TSH, BNP, CMP #### [facility] [address] [place] [address] Dr. Oh Trotter Bilirubin [Mass/Vol] 0.4 mg/dL Normal 0.2-1.0 [facility] Comment on above: Performed By: #### H STROPN, TSH, BNP, CMP #### [facility] [address] [place] [address] Dr. Oh Trotter Calcium [Mass/Vol] 9.2 mg/dL Normal 8.5-10.1 [facility] Comment on above: Performed By: #### H STROPN, TSH, BNP, CMP #### [facility] [address] [address] [address] Oh Trotter Chloride [Moles/Vol] 102 mmol/L Normal 98-107 [facility] Comment on above: Performed By: #### H STROPN, TSH, BNP, CMP #### [facility] [address] [place] [address] Dr. Oh Trotter CO2 [Moles/Vol] 23.7 mmol/L Normal 21.0-32.0 [facility] Comment on above: Performed By: #### H STROPN, TSH, BNP, CMP #### [facility] Laboratory [address] [address] [address] Oh Trotter Creatinine [Mass/Vol] 1.14 mg/dL Normal 0.70-1.30 [facility] Comment on above: Performed By: #### H STROPN, TSH, BNP, CMP #### [facility] [address] [address] [address] Oh Trotter EGFR-AF [place]OU[place]OREAN >60 Normal >=60 [facility] Comment on above: Performed By: #### H STROPN, TSH, BNP, CMP #### [facility] [address] [address] [address] Oh Trotter EGFR-NON AF [place] >60 Normal >=60 [facility] Comment on above: Performed By: #### H STROPN, TSH, BNP, CMP #### [facility] [address] [place] [address] Dr. Oh Trotter Globulin (S) [Mass/Vol] 4.7 g/dL Normal [facility] Comment on above: Performed By: #### H STROPN, TSH, BNP, CMP #### [facility] [address] [address] [address] Oh Trotter Glucose [Mass/Vol] 120 mg/dL Critically high 74-106 [facility] Comment on above: Performed By: #### H STROPN, TSH, BNP, CMP #### [facility] [address] [place] [address] Dr. Oh Trotter Potassium [Moles/Vol] 3.6 mmol/L Normal 3.5-5.1 [facility] Comment on above: Performed By: #### H STROPN, TSH, BNP, CMP #### [facility] [address] [place] [address] Dr. Oh Trotter Protein [Mass/Vol] 8.6 g/dL Critically high 6.4-8.2 [facility] Comment on above: Performed By: #### H STROPN, TSH, BNP, CMP #### [facility] [address] [place] [address] Dr. Oh Trotter Sodium [Moles/Vol] 137 mmol/L Normal 136-145 [facility] Comment on above: Performed By: #### H STROPN, TSH, BNP, CMP #### [facility] [address] [address] [address] Oh Trotter Urea nitrogen [Mass/Vol] 12.0 mg/dL Normal 7.0-18.0 [facility] Comment on above: Performed By: #### H STROPN, TSH, BNP, CMP #### [facility] [address] [place] [address] Dr. Oh Trotter Urea nitrogen/Creatinine [Mass ratio] 10.5 mg/mg Normal [facility] Comment on above: Performed By: #### H STROPN, TSH, BNP, CMP #### [facility] [address] [place] [address] Dr. Oh Trotter PROTIMEon 09-15-2021 INR Coag (PPP) [Relative time] 0.94 {INR} Normal [facility] Comment on above: Performed By: #### L IPA, CMP, HSTROPN #### [facility] [address] [place] [address] Dr. Oh Trotter INR GUIDELINES SEE BELOW Normal [facility] Comment on above: Result Comment: ADITHYA RED INR: 2.0 - 3.0 CONDITIONS NOT LISTED BELOW 2.5 - 3.5 FOR PROSTHETIC HEART VALVE REPLACEMENT 2.5 - 3.5 RECURRENT THROMBOSIS Performed By: #### L IPA, CMP, HSTROPN #### [facility] [address] [place] [address] Dr. Oh Trotter PT Coag (PPP) [Time] 10.2 s Normal 9.0-11.6 [facility] Comment on above: Performed By: #### L IPA, CMP, HSTROPN #### [facility] [address] [place] [address] Dr. Oh Trotter PTTon 09-15-2021 aPTT Coag (Bld) [Time] 26.6 s Normal 22.3-36.2 [facility] Comment on above: Performed By: #### L IPA, CMP, HSTROPN #### [facility] [address] [place] [address] Dr. Oh Trotter TROPONIN, HIGH SENSITIVITYon 09-15-2021 HSTROP 3.4 pg/mL Critically low 4.0-76.1 [facility] Comment on above: Result Comment: CUT- OFF POINTS HAVE BEEN ESTABLISHED BASED ON THE FOURTH UNIVERSAL DEFINITIONS OF MYOCARDIAL INFARCTION. THE UPPER REFERENCE LIMIT (URL) OF TROPONIN, DEFINED THE 99TH PERCENTILE OF cTnI DISTRIBUTION IN A REFERENCE POPULATION, HAS BEEN CONFIRMED THE DECISION THRESHOLD FOR [place] DIAGNOSIS. Performed By: #### P TT, PT #### [facility] [address] [address] [address] Oh Trotter TSHon 09-15-2021 TSH 1.085 uIU/mL Normal 0.358-3.740 [facility] Comment on above: Performed By: #### H STROPN, TSH, BNP, CMP #### [facility] [address] [address] [address] Oh Trotter TSH RANGE SEE BELOW Normal [facility] Comment on above: Result Comment: <0.3 4 UIU/ml HYPERTHYROID 0.34-5.60 UIU/ml EUTHYROID >5.60 UIU/ml HYPOTHYROID Performed By: #### H STROPN, TSH, BNP, CMP #### [facility] [address] [address] [address] Oh Trotter XR ABD FLAT UP_PA [...] OTTO POLANCO Date: 2021-09-15 19:35 Normal [facility] XR CHEST 1 Von 09-07-2021 XR CHEST [...] by: ELIZABETH TURNER Date: 2021-09-06 23:38 Normal [facility] Vital Signs Date Time Vital Sign Value Performing Clinician Radha casas 12-21-2023 15:26-0400 Blood Pressure Location Lucy BEY [facility] 12-21-2023 15:26-0400 Diastolic blood pressure 88 mm[Hg] [facility]Y [facility] 12-21-2023 15:26-0400 Heart rate 80 /min Lucy [facility]Y [facility] 12-21-2023 15:26-0400 Respiratory rate 16 /min Lucy BEY [facility] 12-21-2023 15:26-0400 Systolic blood pressure 120 mm[Hg] Lucy BEY [facility] Encounters Encounter Date Encounter Type Care Provider Facility Start: 03-14-2024 End: 03-14-2024 ambulatory [facility] Start: 02-29-2024 ambulatory [facility] Start: 02-29-2024 End: 02-29-2024 ambulatory [facility] Start: 02-23-2024 End: 02-23-2024 ambulatory [facility] Start: 12-21-2023 End: 12-21-2023 ambulatory Lucy BEY Facility:[facility] Start: 12-21-2023 End: 12-21-2023 Patient encounter procedure Lucy BEY [facility] Start: 08-09-2022 End: 08-09-2022 ambulatory LEIGHANN SORIANO [...] influenza virus vaccine, unspecified formulation Lucy [facility]Y [facility] Payers Date Payer Category Payer Unknown [id number] 2.16.84 [id number] 1987 Unknown [id number] 2.16.84 [id number] 1987 Unknown [id number] 2.16.84 [id number] 1987 Unknown [id number] 2.16.84 [id number] 1987 Unknown [id number] 2.16.84 [id number] 1987 Unknown [id number] 2.16.84 [id number] 1987 Unknown [id number] 2.16.84 [id number] 1987 Unknown [id number] 2.16.84 [id number] 1987 Unknown [id number] 2.16.84 [id number] 1987 Unknown [id number] 2.16.84 [id number] 1987 Unknown [id number] 2.16.84 [id number] 1987 Unknown [id number] 2.16.84 [id number] 1987 Unknown [id number] 2.16.84 [id number] 1987 Unknown [id number] 2.16.8 [id number] 1959 Unknown [id number] Social History Date Type Detail Facility Start: 12-21-2023 Tobacco smoking status Heavy t obacco smoker (finding) [facility] Tobacco smoking status Never [facility] Sex Assigned At Male [facility] Functional Status Date Assessment Result Facility 12-21-2023 Functional Status N/A [facility] [place] Progress note 03-14-2024 Note Date & Type [...] on file. [facility] Clinical Note 02-29-2024 Note Date & Type Note Facility 02-29-2024 Note Patient: Chuck arriaza Procedure Summary Date: 02/29/24 Room / Location: [facility] OPERATING ROOM 02 / [facility] Operating Room Anesthesia Start: 755 Anesthesia Stop: [...] per anesthesia protocol. No notable events documented. [facility] Procedure note 02-29-2024 Note Date & Type Note Facility 02-29-2024 Note Airway Date/Time: 02/29/2024 8:07 AM Urgency: elective General Information and Staff Patient location during procedure: OR Anesthesiologist: Capo Tafoya MD Resident/CERAMIC PLATER/CAA: Facundo Rudolph MD Performed: resident/CERAMIC PLATER/CAA Indications and Patient Condition Indications for airway [...] 1 Number of other approaches attempted: 0 [facility] Clinical Note 02-28-2024 Note Date & Type Note Facility 02-28-2024 Note Patient: Chuck arriaza Procedure Information Date/Time: 02/29/24729 Procedures: EXAM UNDER ANESTHESIA, HEMORRHOIDECTOMY, DEBRIDMENT OF ANAL FISSURE Location: [facility] OPERATING ROOM 02 / [facility] Operating Room Surgeons: Urbano Rodriguez MD Relevant Problems Cardio (+) Migraines (+) Xipxj-Mpupbjqbu-Puumk syndrome GI (+) GERD (gastroesophageal reflux disease) [...] Depression GERD (gastroesophageal reflux disease) Morbid Obesity Laltl-Txovhscbs-Nkaow syndrome, treated with ablation as teenager, without [...] with attending and resident. 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 Do not wear perfume, make-up, nail ukrainian, or lotions on the day of your [...] need to make any changes, please call [phone]. Notify your surgeon if you develop any illness such as a cold, cough, fever, sore throat or vomiting between now and your surgery. Thank you for entrusting us with your care. [facility] Surgical Services Team [facility] Progress note 02-23-2024 Note Date & Type [...] on file. [facility] Clinical Note 06-24-2022 Note Date & Type [...] CC: Leighann Soriano CNP [facility] Evaluation + Plan note Note Date & Type Note Facility Evaluation + Plan note No data available for this section [facility] Hospital Discharge instructions Note Date & Type Note Facility Hospital Discharge instructions No data available for this section [facility] Progress note Note Date & Type Note Facility Progress note No data available for this section [facility] Summary Purpose Family History No Family History [...] section and content) DATE CREATED AUTHOR 08/11/2022 [facility] DATE CREATED AUTHOR AUTHOR'S ORGANIZ ATION 12/27/2023 [facility] DATE CREATED AUTHOR AUTHOR'S ORGANIZ ATION 03/16/2024 [facility] Patient Care team informatio n (unrecognized section and content) Personnel Name: LEIGHANN SORIANO CNP Address: Address: [address] [place], [place] [address] FOR REC[facility] PERTAINING TO [...] BE BASED ON THE PRIMARY CLINICAL RECORDS. [facility]. provides no warranty or guarantee of the accuracy or completeness of information in this document.
[2025-01-17 14:16] LABS: Hematocrit 43.7 % (42.0-54.0); Hemoglobin 15.7 g/dL (14.0-18.0); Immature Granulocytes Abs Auto 0.02 10^3/uL (0.00-0.03); Immature Granulocytes Pct Auto 0.2 % (0.0-0.5); Lymphocytes Absolute Auto 2.6 10^3/uL (1.2-3.8); Mean Corpuscular HGB Conc 35.9 g/dL (29.9-35.2); Mean Corpuscular Hemoglobin 30.1 pg (25.9-34.0); Mean Corpuscular Volume 83.9 fL (80.0-94.0); Platelet Count 241 10^3/uL (150-450); Red Blood Count 5.21 10^6/uL (4.70-6.10); White Blood Count 8.4 10^3/uL (4.0-11.0)
[2025-01-17 14:25] LABS: SARS-CoV-2 Ag NEGATIVE (NEGATIVE)
[2025-01-17 14:28] LABS: Anion Gap 12.8; Blood Urea Nitrogen 16.0 mg/dL (7.0-18.0); Calcium 9.0 mg/dL (8.5-10.1); Carbon Dioxide 23.2 mmol/L (21.0-32.0); Chloride 103 mmol/L (98-107); Estimated GFR (African America >60 (>=60 mL/min/1.73m^2); Estimated GFR (Non-African Ame >60 (>=60 mL/min/1.73m^2); Glucose 171 mg/dL (74-106); Potassium 4.0 mmol/L (3.5-5.1); Sodium 135 mmol/L (136-145)
[2025-01-17 14:45] LABS: Cannabinoid Screen Urine POSITIVE (NEGATIVE); Methamphetamines Screen Urine NEGATIVE (NEGATIVE); Tricyclic Antidepressant Urine NEGATIVE (NEGATIVE)
[2025-01-17] MEDS: KETOROLAC TROMETHAMINE 30 MG/ML VIAL IVP (15:50)
== END 2025-01-17 16:51 | disposition home or self-care (01) ==
PROVIDERS: Physician Assistant; Emergency Provider Emergency Medicine; PCP Nurse Practitioner Family
DX: R07.89 Other chest pain (principal); F17.210 Nicotine dependence, cigarettes, uncomplicated
CPT/HCPCS: 36415; 71045; 80048; 80307; 84484; 85025; 85378; 87811; 93005; 96374; 99285; J1885

== ENCOUNTER 2025-01-18 18:43 | Emergency (ER) | payer SELFPAY ==
--- OUTSIDE RECORDS SUMMARY | 2024-08-08 09:30 | XMS_ITS ---
Author Organization The [facility] in [place] Address [address] [place] [address] Care Team Providers Care Athletic Scout Name Role Phone Leighann Mahoney Primary Care Provider [phone] REASON FOR VISIT STILL SICK Encounters Encounter Location Date Provider Diagnosis [facility] ([place], [place]) [address] [facility] [place] [address] 08/08/2024 Leighann Mahoney Plan Of Treatment No Information Progress Notes * Genesis PACKEROB:1985 (39 yo M)Acc No.[id number]:08/08/2024 UNLOCKED PROGRESS NOTE Progress Note Patient: Tristin CARL Provider: Phan Mahoney CNP (TTC) :1985 A ge:38 Y S ex:Male Date:08/08/2024 Address:[address] [place] [address], [address], [place], [place] Subjective: * Chief Complaints: * 1 . STILL SICK. * Medical History: Objective: * Vitals: Assessment: Plan: * Treatment: * * Electronic signature of Leticia Gant NP, COMPUTER APPLICATIONS ENGINEER.OUTSIDE PRODUCTION INSPECTOR.[id number] on 01/18/2025 at 06:56 PM EDT Sign off status: Pending Visit Status: O FF CANC (OFFICE CANCEL) * Provider: Phan Mahoney CNP (TTC) Date: 0 08/08/2024 Generated for Maximus ny/Basil/eTransmitting on: 0 01/18/2025 06:56 PM EDT
--- OUTSIDE RECORDS SUMMARY | 2025-01-18 18:57 | XMS_ITS | Patient Health Record ---
Author Organization [facility] Address [address] [place] [address] Care Team Providers Care Environmental Systems Coordinator Name Role Phone Maru, Leighann Primary Care Provider Martínez Vail [phone] Allergies Allergen (clinical drug ingredient) Drug/Non Drug Allergy documented on EMR Reaction Allergy Type Onset Date Status erythromycin Erythromycin Base hives Drug Allergy Active penicillin V Penicillin V Potassium hives Drug Allergy Active Results Component Value Reference Range Notes COVID-19, Flu A+B IH (Not ye t reviewed by provider) Interpretation: Performing Lab: Notes/Report: COVID neg FLU A neg FLU B neg Control pos CBC AUTO DIFF Reviewed date:02/28/2024 08:49:58 AM Interpretation: Performing Lab: Notes/Report: [facility] , White Blood Count 7.6 4.0-11.0 10 [...] 0.00-0.03 10 3/uL Performing Lab: see note [facility] PROF CHEM 8 (BAS METB) Reviewed date:02/28/2024 08:49:58 AM Interpretation: Performing Lab: Notes/Report: [facility] , Sodium 141 136-145 mmol/L Potassium 4.3 3.5-5.1 mmol/L Chloride 105 98-107 mmol/L Carbon Dioxide 28.0 21.0-32.0 mmol/L Anion Gap 12.3 Glucose 152 74-106 mg/dL Blood Urea Nitrogen 11.0 7.0-18.0 mg/dL Creatinine 1.20 0.70-1.30 mg/dL Estimated GFR ( Anupama >60 >=60 mL/min/1.73m 2 Estimated GFR (Non- Tia >60 >=60 mL/min/1.73m 2 BUN Creatinine Ratio 9.2 Calcium 9.1 8.5-10.1 mg/dL Performing Lab: see note [facility] Prothrombin Time INR Reviewed date:02/28/2024 08:49:58 AM Interpretation: Performing Lab: Notes/Report: [facility] , Prothrombin Time 10.3 9.0-11.6 sec INR 0.97 2.0-3.0 CONDITIONS NOT LISTED BELOW 2.5-3.5 FOR PROSTHETIC HEART VALVE REPLACEMENT 2.5-3.5 RECURRENT THROMBOSIS DESIRED INR: Performing Lab: see note [facility] CBC AUTO DIFF Reviewed date:08/06/2024 09:47:04 PM Interpretation: Performing Lab: Notes/Report: [facility] , White Blood Count 7.4 4.0-11.0 10 [...] Performing Lab: see note ML - [facility] LB PROF CHEM 8 (BAS METB) Reviewed date:08/06/2024 09:47:04 PM Interpretation: Performing Lab: Notes/Report: [facility] , Sodium 139 136-145 mmol/L Potassium 4.0 [...] mg/dL Performing Lab: see note ML - [facility] LB ECG 12 lead Reviewed date:08/06/2024 09:47:04 PM Interpretation: Performing Lab: Notes/Report: Source Facility: [facility]-[address] [place] [address] Electrocardiograph Report Signed Patient: CHUCK PACKER MR#: [id number] : 1985 Acct:[id number] Age/Sex: 38 / M ADM Date: 07/30/24 Loc: ER Attending Dr: Ordering Physician: Shekhar Hare M.D. Date of Service: 07/30/24 Procedure(s): ECG 12 lead Accession Number(s): [id number] cc: [facility] Test Date: 2024-07-30 Pat Name: CHUCK PACKER Department: Room: - Gender: Male Cbx Operator: : 1985 Requested By: 1030 Order Number: [id number] Reading MD: JITENDRA FOOTE M.D. Measurements Intervals [place] Rate: 95 P: 44 LA: 120 QRS: 15 QRSD: 76 T: -5 [...] FOOTE Signed By: 07/30/242019 DD/ 11 TD/TT: Patrol Lady: CBC AUTO DIFF Reviewed date:01/18/2025 10:48:48 AM Interpretation: Performing Lab: Notes/Report: [facility] , White Blood Count 8.4 4.0-11.0 10 3/uL Red Blood Count 5.21 4.70-6.10 10 6/uL Hemoglobin 15.7 14.0-18.0 g/dL Hematocrit 43.7 42.0-54.0 % Mean Corpuscular Volume 83.9 80.0-94.0 fL Mean Corpuscular Hemoglobin 30.1 25.9-34.0 pg Mean Corpuscular HGB Conc 35.9 29.9-35.2 g/dL Red Cell Distribution Width 11.9 11.0-15.0 % Platelet Count 241 150-450 10 3/uL Mean Platelet Volume 9.8 9.5-13.5 fL Neutrophils Percent Auto 63.7 43.0-75.0 % Lymphocytes Percent Auto 30.5 20.5-60.0 % Monocytes Percent Auto 5.3 1.7-12.0 % Eosinophils Percent Auto 0.2 0.9-7.0 % Basophils Percent Auto 0.1 0.2-2.0 % Immature Granulocytes Pct Auto 0.2 0.0-0.5 % Neutrophils Absolute Auto 5.4 1.4-6.5 10 3/uL Lymphocytes Absolute Auto 2.6 1.2-3.8 10 3/uL Monocytes Absolute Auto 0.5 0.3-0.8 10 3/uL Eosinophils Absolute Auto 0.0 0.0-0.7 10 3/uL Basophils Absolute Auto 0.0 0.0-0.1 10 3/uL Immature Granulocytes Abs Auto 0.02 0.00-0.03 10 3/uL Performing Lab: see note ML - [facility] LB D-DIMER Reviewed date:01/18/2025 10:48:48 AM Interpretation: Performing Lab: Notes/Report: [facility] , D Dimer 0.20 <=0.59 mg/L FEU hematoma, DIC, trauma, post-surgery, diabetes, thrombolytic reference range. D-Dimers may also be elevated for a variety of disorders including advanced age, , coronary size, and age of the thrombus. Therefore, a thromboembolic event cannot be diagnosed with certainty on the basis of the Increases in D-Dimer concentration observed with thromboembolic events can be variable due to localization, hospitalization. or anticoagulant therapy, stress, and generalized disease, cancer, liver disease, infection, inflammation, Performing Lab: see note ML - [facility] LB DRUG SCREEN RAPID (URINE) Reviewed date:01/18/2025 10:48:48 AM Interpretation: Performing Lab: Notes/Report: [facility] , Cannabinoid Screen Urine POSITIVE NEGATIVE Phencyclidine Screen Urine NEGATIVE NEGATIVE Cocaine Screen Urine NEGATIVE NEGATIVE Methamphetamines Screen Urine NEGATIVE NEGATIVE Opiate Screen Urine NEGATIVE NEGATIVE Amphetamine Screen Urine NEGATIVE NEGATIVE Benzodiazepines Screen Urine NEGATIVE NEGATIVE Tricyclic Antidepressant Urine NEGATIVE NEGATIVE Methadone Screen Urine NEGATIVE NEGATIVE Barbiturates Screen Urine NEGATIVE NEGATIVE Oxycodone Screen Urine NEGATIVE NEGATIVE Buprenorphine Screen Urine NEGATIVE NEGATIVE AMP (Amphetamine): 500 ng/mL TCA (Trycyclic Antidepressants): 300 ng/mL FOLLOWS: mAMP (Methamphetamine): 500 ng/mL MTD (Methadone): 200 ng/mL ABBY (Cocaine): 150 ng/mL THC (Cannabinoids): 50 ng/mL BUP (Buprenorphine): 10 ng/mL DRUG CLASS TEST SYSTEM CUT-OFF CONCENTRATIONS ARE PCP (Phencyclidine): 25 ng/mL BZO (Benzodiazepines): 150 ng/mL BAR (Barbiturates): 200 ng/mL OPI (Opiates): 100 ng/mL OXY (Oxycodone): 100 ng/mL Performing Lab: see note ML - [facility] LB PROF CHEM 8 (BAS METB) Reviewed date:01/18/2025 10:48:48 AM Interpretation: Performing Lab: Notes/Report: [facility] , Sodium 135 136-145 mmol/L Potassium 4.0 3.5-5.1 mmol/L Chloride 103 98-107 mmol/L Carbon Dioxide 23.2 21.0-32.0 mmol/L Anion Gap 12.8 Glucose 171 74-106 mg/dL Blood Urea Nitrogen 16.0 7.0-18.0 mg/dL Creatinine 1.07 0.70-1.30 mg/dL Estimated GFR ( Anupama >60 >=60 mL/min/1.73m 2 Estimated GFR (Non- Tia >60 >=60 mL/min/1.73m 2 BUN Creatinine Ratio 15.0 Calcium 9.0 8.5-10.1 mg/dL Performing Lab: see note ML - [facility] LB Troponin I High Sensitivity Reviewed date:01/18/2025 10:48:48 AM Interpretation: Performing Lab: Notes/Report: [facility] , Troponin I High Sensitivity <4.0 4.0-76.1 pg/m L 99TH PERCENTILE = 76.2 PG/ML NOTE: HIGH-SENSITIVITY TROPONIN ASSAY IS NOT INTENDED TO BE USED IN ISOLATION BUT SHOULD BE INTERPRETED IN CONJUNCTION WITH OTHER DIAGNOSTIC AND CLINICAL INFORMATION. UNIVERSAL DEFINITION OF MYOCARDIAL INFARCTION. THE UPPER REFERENCE LIMIT (URL) OF TROPONIN, DEFINED THE 99TH PERCENTILE OF cTnI DISTRIBUTION IN A REFERENCE POPULATION, HAS BEEN CONFIRMED THE DECISION THRESHOLD FOR CA CUT-OFF POINTS HAVE BEEN ESTABLISHED BASED ON THE FOURTH DIAGNOSIS. Performing Lab: see note ML - [facility] SARS-CoV-2 Ag* Reviewed date:01/18/2025 10:48:48 AM Interpretation: Performing Lab: Notes/Report: [facility] , SARS-CoV-2 Ag NEGATIVE NEGATIVE and/or diagnosis of Covid-19 under section 564(b)(1) of the the detection of proteins from SARS-CoV-2, not for any other authorized for the duration of the declaration that circumstances exist justifying the authorization of This test has not been FDA cleared or approved, but has been CLIA that meet the requirements to perform moderate or high viruses or pathogens. The emergency use of this test is complexity testing. This test has been authorized only for authorized by the FDA under an Emergency Use Authorization Act, 21 U.S.C. 360bbb-3(b)(1), unless the declaration is (EUA) for use by authorized laboratories certified under emergency use of in vitro diagnostic tests for detection terminated or authorization is revoked sooner. Performing Lab: see note ML - [facility] LB ECG 12 lead Reviewed date:01/18/2025 10:48:48 AM Interpretation: Performing Lab: Notes/Report: Source Facility: [place] [address] [place] [address] Electrocardiograph Report Signed Patient: CHUCK PACKER MR#: [id number] : 1985 Acct:[id number] Age/Sex: 39 / M ADM Date: 01/17/25 Loc: ER Attending Dr: Ordering Physician: Brent Rodriguez Date of Service: 01/17/25 Procedure(s): ECG 12 lead Accession Number(s): [id number] cc: [facility] Test Date: 2025-01-17 Pat Name: CHUCK PACKER Department: Room: - Gender: Male Cbx Operator: : 1985 Requested By: 2256 Order Number: [id number] Reading MD: JITENDRA FOOTE M.D. Measurements Intervals [place] Rate: 94 P: 54 LA: 130 QRS: 44 QRSD: 74 T: 49 QT: 342 QTc: 394 Interpretive Statements [address] elevation, probably early repolarization 9130 borderline ECG Compared to ECG 07/30/2024 14:12:13 ST (T wave) deviation now present Early repolarization now present Left ventricular hypertrophy no longer present Electronically Signed On 01-17-2025 17:53:50 EDT by JITENDRA FOOTE M.D. Dictated By: JITENDRA FOOTE Signed By: 01/17/25 1754 DD/ 1339 TD/TT: Patrol Lady: XR chest 1V Reviewed date:01/18/2025 10:48:48 AM Interpretation: Performing Lab: Notes/Report: Source Facility: [place] [address] XRay Report Signed Patient: CHUCK PACKER MR#: [id number] : 1985 Acct:[id number] Age/Sex: 39 / M ADM Date: 01/17/25 Loc: ER Attending Dr: Ordering Physician: Brent Rodriguez Date of Service: 01/17/25 Procedure(s): XR chest 1V Accession Number(s): [id number] cc: LEIGHANN MAHONEY ; Brent Rodriguez [place] [address] Patient Name: CHUCK PACKER MRN: [id number] date: 1985 Sex: M Assigned Patient Location: ER Current Patient Location: ED.MAIN Accession/Order Number: [id number] Exam Date: 01/17/2025 14:02 Report Date: 01/17/2025 14:48 At the request of: BRENT RIZZO Procedure: XR chest 1V PA CHEST: CLINICAL HISTORY: Chest pain COMPARISON: 07/15/2024 Unremarkable cardiac mediastinal silhouette. Lungs clear. No effusion or pneumothorax. XR/XR chest 1V IMPRESSION: NEGATIVE ACUTE PLEURAL-PARENCHYMAL DISEASE. Impression dictated by: Chandler Fields M.D. 01/17/2025 2:48 PM Dictation Location: [place] [address] Electronically authenticated by: [id number] Y Date: 01/17/2025 14:48 Dictated By: Chandler Fields M.D. Signed By: 01/17/25 1450 DD/ 1448 TD/TT: Patrol Lady: Troponin I High Sensitivity Reviewed date:01/18/2025 10:48:48 AM Interpretation: Performing Lab: Notes/Report: [facility] , Troponin I High Sensitivity 4.2 4.0-76.1 pg/m L NOTE: HIGH-SENSITIVITY TROPONIN ASSAY IS NOT INTENDED TO BE CUT-OFF POINTS HAVE BEEN ESTABLISHED BASED ON THE FOURTH PERCENTILE OF cTnI DISTRIBUTION IN A REFERENCE POPULATION, UNIVERSAL DEFINITION OF MYOCARDIAL INFARCTION. THE UPPER HAS BEEN CONFIRMED THE DECISION THRESHOLD FOR CA 99TH PERCENTILE = 76.2 PG/ML USED IN ISOLATION BUT SHOULD BE INTERPRETED IN CONJUNCTION WITH OTHER DIAGNOSTIC AND CLINICAL INFORMATION. DIAGNOSIS. REFERENCE LIMIT (URL) OF TROPONIN, DEFINED THE 99TH Performing Lab: see note ML - [facility] LB Reason For Referral No Information [...] 12/07/2023 Active Mupirocin 2 % 1 application Pharmacist Critical Care ally Twice a day; Duration: 5 days 12/10/2023 Active OLANZapine 15 MG 1 tablet Orally Once a day; Duration: 30 days 06/01/2024 Active Hyoscyamine Sulfate 0.125 MG 2 tabs SL S L every 4 hrs PRN abd pain 12/10/2023 Active Hyoscyamine Sulfate 0.125 MG 1-2 tabs SL SL every 4 hrs PRN abd pain 07/20/2024 Active Hydrocortisone 1 % 1 application Pharmacist Critical Care ally Once a day 12/10/2023 Active hydrOXYzine [...] Status W/U Status Risk Notes Problem Overweight (662468943) Overweight (E66.3) Active confirmed Problem Generalized anxiety disorder (43089953) Generalized anxiety disorder (F41.1) Active confirmed Problem Depression (451935477) Depression (F32.9) Active confirmed Problem Erectile dysfunction (758010647) Erectile dysfunction (N52.9) Active confirmed Problem Gastroesophageal reflux disease (924654133) GERD without esophagitis (K21.9) Active confirmed Problem Migraine (24258711) Migraine (G43.909) Active confirmed Problem Bronchitis (18491305) Bronchitis (J40) Active confirmed Problem Rash (091799220) Rash (R21) Active confirmed Problem Upper respiratory infection (07515422) Upper respiratory infection (J06.9) Active confirmed Problem Shingles (0638858) Shingles (B02.9) Active confirmed Problem Hemorrhoids (14341096) Hemorrhoids (K64.9) Active confirmed Problem Current smoker (96349013) Current smoker (F17.200) Active confirmed Problem Abdominal discomfort (62505954) Abdominal discomfort (R10.9) Active confirmed Problem Panic attack (020590270) Panic attack (F41.0) Active confirmed Problem Bright red blood per rectum (047507380) Bright red blood per rectum (K62.5) Active confirmed Problem Anal fissure (79991485) Rectal fissure (K60.2) Active confirmed Problem Pain in limb (86127327) Heel pain, right (M79.671) Active confirmed Problem Insomnia (447354563) Insomnia disorder (G47.00) Active confirmed Problem Irritable bowel syndrome (31902390) Irritable bowel syndrome (IBS) (K58.9) Active confirmed Problem Aminta Parkinson White syndrome (09308528) 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) Active confirmed Problem Menopause (917129456) Insomnia associated with menopause (N95.1) Active confirmed Vital Signs Heart Rate 109 /min 06/15/2024 Temperature 97.4 degrees Fahrenheit 08/04/2024 Oximetry 98 % 06/15/2024 Blood pressure diastolic 82 mm Hg 08/04/2024 Height 74 in 08/04/2024 Blood pressure systolic 132 mm Hg 08/04/2024 Weight 306.2 lbs 08/04/2024 BMI 39.31 kg/m2 08/04/2024 Encounters Encounter Location Date Provider Diagnosis [facility] [address] [place] [address] 06/01/2024 Leighann Mahoney [facility] [address] [place] [address] 05/26/2024 Leighann Mahoney Insomnia disorder G4 7.00 ; Rash and other nonspecific skin eruption R21 and Depression F32.9 [facility] [address] [place] [address] 06/15/2024 Leighann Maru Gastroenteritis K52. 9 [facility] [address] [facility] [place] [address] 07/14/2024 Leighann Maru Body aches R52 ; Gastroenteritis K52.9 and Vomiting R11.10 [facility] [address] [facility] [place] [address] 07/20/2024 Martínez Hoy Gastroenteritis K52. 9 [facility] [address] [place] [address] 06/08/2024 Martínez Hoy Cough R05.9 and Acut e bronchitis, unspecified organism J20.9 [facility] [address] [facility] [place] [address] 07/17/2024 Leighann Maru Bronchitis J40 [facility] [address] [place] [address] 08/04/2024 Martínez Hoy Acute non-recurrent sinusitis, unspecified location J01.90 and Nasal congestion R09.81 Assessments Encounter Date Diagnosis (ICD Code) Assessment [...] East back into eating by eating bland, rqxx-es-fuzjqv foods like crackers, toast, gelatin, bananas, rice and chicken. Try to avoid foods/substances including dairy products, caffeine, alcohol, nicotine and fatty or highly seasoned foods. Medications such as ibuprofen or tylenol can make your stomach more upset, so use sparingly if at all. Also avoid rlpg-iye-pcdagtb anti-diarrheal medications because it can make it harder for your body to eliminate the virus. 08/04/2024 Acute non-recurrent sinusitis, unspecified location (ICD-10 - J01.90) Rest and drink more liquids, especially water. You may use a humidifier or vaporizer to help keep the drainage moist. Aclc-fko-luyodpj Nasal Saline may help the stuffy and runny nose. Use Ibuprofen and or Tylenol as needed for fever, chills, body aches or pain. Children 5 years old should not be given vnmn-xuw-nyquolj cough and cold medications such as guaifenesin and dextromethorphan. If you're over age 5, you may try kelq-ndl-oudypak cold medications such as guaifenesin and dextromethorphan, [...] vaporizer to help keep the drainage moist. Zcel-zev-iybugdj Nasal Saline may help the stuffy and runny nose. Use Ibuprofen and or Tylenol as needed for fever, chills, body aches or pain. Children 5 years old should not be given udse-ape-svzqvjn cough and cold medications such as guaifenesin and dextromethorphan. If you're over age 5, you may try njon-pox-oxvrgdq cold medications such as guaifenesin and dextromethorphan, [...] End Date [employer] [place] [employer] [address] [address] [place] [address] [id number] Chuck Packer Self - patient is the insured 0 Medical (General) History Medical History History ICD Code Bronchitis J40 Heel pain, right M79.671 Hemorrhoids K64.9 Upper respiratory infection J06.9 Depression F32.9 Rash R21 Shingles B02.9 Migraine G43.909 Gastro-esophageal reflux disease K21.9 Bright red blood per rectum K62.5 Irritable bowel syndrome (IBS) K58.9 Panic attack F41.0 Xecjs-Hvtzrtepj-Euuff (WPW) syndrome I45 .6 Overweight E66.3 Abdominal discomfort R10.9 Generalized anxiety disorder F41.1 Current smoker F17.200
--- OUTSIDE RECORDS SUMMARY | 2025-01-18 18:57 | XMS_ITS | CCD ---
Author Organization [facility] Care Team Providers Care Production Control Expert Name Role Phone ANTONI .MARZENA Attending Unavailable [...] Attending Unavailable ANTONI ., MARZENA Consulting Unavailable CHRISITE, LEIGHANN Primary Care Unavailable DIAB ., HANNAH [...] Unavailable NILL ., DR AYALA Consulting Unavailable CHIRSTIE, LEIGHANN Primary Care Unavailable NILL ., DR [...] Erythromycin; Translations: [ERYTHROMYCIN BASE] Drug Allergy 4 [facility] Repository (4 sources) Penicillins; Translations: [penicillins] Drug allergy (disorder) 4 [facility] (disorder) 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] Onset: 08-11-2022 05-29-2022 Chronic Esophageal [...] Onset: 06-25-2022 Other aftercare (1 source) Other residential (current) drug therapy; Translations: [OTH SKILLED NURSING CURRENT DRUG THERAPY] Onset: 06-25-2022 Episodic Other [...] Range Facility Office Visiton 03-14-2024 Follow-up visit [id number] Chuck Packer 1985 M Date Provider Department Center 03/14/2024 Mayra-URBANO RODRIGUEZ [facility] SURG Second Fl No family history on file Level of Service:20087 [place] POSTOP FOLLOW UP VISIT RELATED TO ORIGINAL PX Reason for Visit and Comments: Post-op [483] - Chuck is here today for post op visit: hemorrhoids, s/p 02/29/24 EUA with hemorrhoidectomy and anal fissure debridement Normal [facility] HISTOLOGY - TISSUE EXAMon LAB AP CASE REPORT Normal [facility] Comment on above: Order Comment: Pre-o p diagnosis: Anal pain [K62.89] Result Comment: Surg ical Pathology Case: [id number] Authorizing Provider: Urbano Rodriguez MD Collected: 02/29/2024 0827 Ordering Location: [facility] Main Operating Room Received: 02/29/2024 1058 Pathologist: Dyana Villasenor MD Specimens: A) - Anus, ANAL FISSURE B) - Anus, INTERNAL AND EXTERNAL HEMORRHOID Performed By: #### L [id number] #### [facility] LAB (BEAKER) [address] [place] [address] LAB AP CLINICAL INFORMATION [facility] Comment on above: Order Comment: Pre-o p diagnosis: Anal pain [K62.89] Result Comment: Post -Op Diagnoses K62.89 - Anal pain [ICD-10-CM] Performed By: #### L [id number] #### [facility] LAB (BEAKER) [address] [facility] [place] [address] LAB AP GROSS DESCRIPTION A. Anus. [facility] Comment on above: Order Comment: [...] in a single cassette. [place], Pathologists' Nurse Anesthetist B. Anus. Received in formalin labeled Chuck [...] are somewhat congested with focal prominent vessels. Shredding Machine Tender sections are submitted in a single cassette. [place], Pathologists' Nurse Anesthetist Performed By: #### L [id number] #### [facility] LAB (BEAKER) [address] [facility] [place] [address] LAB AP MICROSCOPIC DESCRIPTION Microscopic examination performed. [facility] Comment on above: Order Comment: Pre-o p diagnosis: Anal pain [K62.89] Performed By: #### L [id number] #### [facility] (BEAKER) [address] [place] [address] LAB AP REPORT FINAL DIAGNOSIS NARRATIVE [facility] Comment on above: Order Comment: Pre-o p diagnosis: Anal pain [K62.89] Result Comment: A. A nal fissure, debridement: - Hyperplastic squamous mucosa and dilated congested submucosal veins. B. Hemorrhoids, internal and external, hemorrhoidectomy: - Internal and external hemorrhoids with acutely inflamed reactive surface epithelium. Performed By: #### L [id number] #### [facility] (KHRIS) [address] [place] [address] HPon 02-29-2024 HP H&P reviewed. The patient was examined and there are no changes to the H&P. [facility] OPNOTEon 02-29-2024 OPNOTE EXAM UNDER ANESTHESIA,, HEMORRHOIDECTOMY, DEBRIDMENT OF ANAL FISSURE Operative Note Date: 02/29/2024 Location: [facility] OR Name: Chuck Packer, : 1985, Diagnosis Pre-op Diagnosis * Anal pain [K62.89] Post-op Diagnosis * Anal pain [K62.89] Anal fissure External and internal hemorrhoid Procedures HEMORRHOIDECTOMY, DEBRIDMENT OF ANAL FISSURE EXAM UNDER ANESTHESIA, [address] - [place] ANRCT XM SURG REQ ANES GENERAL SPI/EDRL [...] EXTERNAL HEMORRHOID Comment: PLACED IN FORMALIN Staff: Dairy Powder Mixer Operator: Shannan Guy RN Scrub Person: Dianelys Watson [facility] [place] Scrub: Minna Mcclendon RN Indications: Chuck [...] - hemodynamically stable. Condition: stable Urbano Rodriguez [facility] POCT GLUCOSE METER UNSOLICIT ED RESULTSon 02-29-2024 Glucose [Mass/Vol] 134 mg/dL High 70-105 [facility] Comment on above: Order Comment: Waive d Testing in the ED is performed under the ED CLIA certificate #[id number]. Result Comment: [email or web address] Performed By: #### L [id number] #### [facility] HOSPITAL LAB (BEAKER) [address] [place] [address] Consulton 02-23-2024 Consult [id number] Chuck Packer 1985 M Date Provider Department Center 02/23/2024 Mayra-URBANO RODRIGUEZ [facility] SURG Second Fl No family history on file Level of Service:87798 [place] OFFICE/OUTPATIENT NEW LOW MDM 30 MINUTES Reason for Visit and Comments: Consult [484] - Chuck is here today for consult: Rectal pain and Bleeding Normal [facility] HPon 02-23-2024 HP Subjective Patient ID: Chuck [...] 36 hour(s)). No follow-ups on file. Normal [facility] General Surgery Office/Clini c Noteon 12-26-2023 General [...] Rectal bleeding Rectal or anal pain Smoker Rvlzu-Jpwnrqzsf-Ivrog syndrome Historical Atrial fibrillation Epididymitis Nocturia Scrotal [...] inactivated - Not Given Patient Refuses Normal [facility] Comment on above: Result Comment: Elec [...] with mild panic attacks Rectal bleeding Smoker Ptlcr-Jgxnqpwdw-Opyam syndrome Historical - Any problem that you are no longer receiving treatment for. Atrial fibrillation Epididymitis Nocturia Scrotal pain Patient Survey You may receive a survey via text or e-mail asking about your office visit. Please share your experience with us by completing your survey. We appreciate your feedback and thank you for choosing us for your care. Normal [facility] CBC AUTO DIFFon 08-09-2022 BASO # 0.0 103/ul Normal 0.0-0.1 [facility] Comment on above: Performed By: #### P TT, PT #### [facility] [address] [place], [place] [address] Dr. Oh Trotter Basophils/100 WBC (Bld) 0.2 % Normal 0.2-2.[address] [facility] Comment on above: Performed By: #### P TT, PT #### [facility] [address] [place], [place] [address] Dr. Oh Trotter EO # 0.0 103/ul Normal 0.0-0.7 [facility] Comment on above: Performed By: #### P TT, PT #### [facility] [address] [place] [address] Dr. Oh Trotter Eosinophils/100 WBC (Bld) 0.6 % Critically low 0.9-7.0 [facility] Comment on above: Performed By: #### P TT, PT #### [facility] [address] [place] [address] Dr. Oh Trotter Erythrocyte distribution width (RBC) [Ratio] 12.2 % Normal 11.0-15.0 [facility] Comment on above: Performed By: #### P TT, PT #### [facility] [address] [place] [address] Dr. Oh Trotter Hematocrit (Bld) [Volume fraction] 44.1 % Normal 42.0-54.0 [facility] Comment on above: Performed By: #### P TT, PT #### [facility] [address] [place] [address] Dr. Oh Trotter Hemoglobin (Bld) [Mass/Vol] 15.8 g/dL Normal 14.0-18.0 [facility] Comment on above: Performed By: #### P TT, PT #### [facility] [address] [place] [address] Dr. Oh Trotter IG # 0.02 10e3/ul Normal 0.00-0.03 [facility] Comment on above: Performed By: #### P TT, PT #### [facility] [address] [place] [address] Dr. Oh Trotter IG % 0.3 % Normal 0.0-0.[address] [facility] Comment on above: Performed By: #### P TT, PT #### [facility] [address] [place] [address] Dr. Oh Trotter LYMPH # 1.9 103/ul Normal 1.2-3.[address] [facility] Comment on above: Performed By: #### P TT, PT #### [facility] [address] [place] [address] Dr. Oh Trotter Lymphocytes/100 WBC (Bld) 29.7 % Normal 20.5-60.[address] [facility] Comment on above: Performed By: #### P TT, PT #### [facility] [address] [place] [address] Dr. Oh Trotter MANUAL DIFF REQ NO Normal [facility] Comment on above: Performed By: #### P TT, PT #### [facility] [address] [place] [address] Dr. Oh Trotter MCH (RBC) [Entitic mass] 29.8 pg Normal 25.9-34.[address] [facility] Comment on above: Performed By: #### P TT, PT #### [facility] [address] [place] [address] Dr. Oh Trotter MCHC (RBC) [Mass/Vol] 35.8 g/dL Critically high 29.9-35.2 [facility] Comment on above: Performed By: #### P TT, PT #### [facility] [address] [place] [address] Dr. Oh Trotter MCV (RBC) [Entitic vol] 83.2 fL Normal 80.0-94.0 [facility] Comment on above: Performed By: #### P TT, PT #### [facility] [address] [place] [address] Dr. Oh Trotter MONO # 0.6 103/ul Normal 0.3-0.8 [facility] Comment on above: Performed By: #### P TT, PT #### [facility] [address] [place] [address] Dr. Oh Trotter Monocytes/100 WBC (Bld) 8.6 % Normal 1.7-12.[address] [facility] Comment on above: Performed By: #### P TT, PT #### [facility] [address] [place] [address] Dr. Oh Trotter NEUT # 3.9 103/ul Normal 1.4-6.[address] [facility] Comment on above: Performed By: #### P TT, PT #### [facility] [address] [place] [address] Dr. Oh Trotter Neutrophils/100 WBC (Bld) 60.6 % Normal 43.0-75.0 [facility] Comment on above: Performed By: #### P TT, PT #### [facility] [address] [place] [address] Dr. Oh Trotter Platelet mean volume (Bld) [Entitic vol] 9.5 fL Normal 9.5-13.5 [facility] Comment on above: Performed By: #### P TT, PT #### [facility] [address] [place] [address] Dr. Oh Trotter PLT 187 103/ul Normal 150-450 [facility] Comment on above: Performed By: #### P TT, PT #### [facility] [address] [place] [address] Dr. Oh Trotter RBC 5.30 106/ul Normal 4.70-6.[address] [facility] Comment on above: Performed By: #### P TT, PT #### [facility] [address] [place] [address] Dr. Oh Trotter WBC 6.4 103/ul Normal 4.0-11.0 [facility] Comment on above: Performed By: #### P TT, PT #### [facility] [address] [place] [address] Dr. Oh Trotter PROF 14(COMP METB)on 023 Albumin [Mass/Vol] 3.5 g/dL Normal 3.4-5.0 [facility] Comment on above: Performed By: #### L IPA, CMP, HSTROPN #### [facility] [address] [place] [address] Dr. Oh Trotter Albumin/Globulin [Mass ratio] 0.7 {ratio} Normal [facility] Comment on above: Performed By: #### L IPA, CMP, HSTROPN #### [facility] [address] [place] [address] Dr. Oh Trotter ALP [Catalytic activity/Vol] 85 U/L Normal 46-116 [facility] Comment on above: Performed By: #### L IPA, CMP, HSTROPN #### [facility] [address] [place] [address] [address] Oh Trotter ALT [Catalytic activity/Vol] 34 U/L Normal 16-63 [facility] Comment on above: Performed By: #### L IPA, CMP, HSTROPN #### [facility] [address] [place] [address] [address] Oh Trotter Anion gap [Moles/Vol] 13.3 mmol/L Normal [facility] Comment on above: Performed By: #### L IPA, CMP, HSTROPN #### [facility] [address] [place] [address] [address] Oh Trotter AST [Catalytic activity/Vol] 18 U/L Normal 15-37 [facility] Comment on above: Performed By: #### L IPA, CMP, HSTROPN #### [facility] [address] [place] [address] Dr. Oh Trotter Bilirubin [Mass/Vol] 0.4 mg/dL Normal 0.2-1.0 [facility] Comment on above: Performed By: #### L IPA, CMP, HSTROPN #### [facility] [address] [place] [address] [address] Oh Trotter Calcium [Mass/Vol] 8.9 mg/dL Normal 8.5-10.1 [facility] Comment on above: Performed By: #### L IPA, CMP, HSTROPN #### [facility] [address] [place] [address] [address] Oh Trotter Chloride [Moles/Vol] 105 mmol/L Normal 98-107 [facility] Comment on above: Performed By: #### L IPA, CMP, HSTROPN #### [facility] [address] [place] [address] [address] Oh Trotter CO2 [Moles/Vol] 24.7 mmol/L Normal 21.0-32.0 [facility] Comment on above: Performed By: #### L IPA, CMP, HSTROPN #### [facility] [address] [place] [address] [address] Oh Trotter Creatinine [Mass/Vol] 0.88 mg/dL Normal 0.70-1.30 [facility] Comment on above: Performed By: #### L IPA, CMP, HSTROPN #### [facility] [address] [place] [address] [address] Oh Trotter EGFR-AF NEPALESE >60 Normal >=60 [facility] Comment on above: Performed By: #### L IPA, CMP, HSTROPN #### [facility] [address] [place] [address] [address] Oh Trotter EGFR-NON AF NEPALESE >60 Normal >=60 [facility] Comment on above: Performed By: #### L IPA, CMP, HSTROPN #### [facility] [address] [place] [address] [address] Oh Trotter Globulin (S) [Mass/Vol] 4.8 g/dL Normal [facility] Comment on above: Performed By: #### L IPA, CMP, HSTROPN #### [facility] [address] [place] [address] [address] Oh Trotter Glucose [Mass/Vol] 113 mg/dL Critically high 74-106 [facility] Comment on above: Performed By: #### L IPA, CMP, HSTROPN #### [facility] [address] [place] [address] Dr. Oh Trotter Potassium [Moles/Vol] 4.0 mmol/L Normal 3.5-5.1 [facility] Comment on above: Performed By: #### L IPA, CMP, HSTROPN #### [facility] [address] [place] [address] Dr. Oh Trotter Protein [Mass/Vol] 8.3 g/dL Critically high 6.4-8.2 [facility] Comment on above: Performed By: #### L IPA, CMP, HSTROPN #### [facility] [address] [place] [address] [address] Oh Trotter Sodium [Moles/Vol] 139 mmol/L Normal 136-145 [facility] Comment on above: Performed By: #### L IPA, CMP, HSTROPN #### [facility] [address] [place] [address] [address] Oh Trotter Urea nitrogen [Mass/Vol] 15.0 mg/dL Normal 7.0-18.0 [facility] Comment on above: Performed By: #### L IPA, CMP, HSTROPN #### [facility] [address] [place] [address] [address] Oh Trotter Urea nitrogen/Creatinine [Mass ratio] 17.0 mg/mg Normal [facility] Comment on above: Performed By: #### L IPA, CMP, HSTROPN #### [facility] [address] [place] [address] [address] Oh Trotter XR ABD FLAT UP_PA [...] Date: 2022-07-28 22:14 Normal [facility] CBC AUTO DIFFon 07-28-2022 BASO # 0.0 103/ul Normal 0.0-0.1 [facility] Comment on above: Performed By: #### L IPA, CMP, HSTROPN #### [facility] [address] [place] [address] [address] Oh Trotter Basophils/100 WBC (Bld) 0.2 % Normal 0.2-2.0 [facility] Comment on above: Performed By: #### L IPA, CMP, HSTROPN #### [facility] [address] [place] [address] Dr. Oh Trotter EO # 0.1 103/ul Normal 0.0-0.[address] [facility] Comment on above: Performed By: #### L IPA, CMP, HSTROPN #### [facility] [address] [place] [address] Dr. Oh Trotter Eosinophils/100 WBC (Bld) 0.9 % Normal 0.9-7.[address] [facility] Comment on above: Performed By: #### L IPA, CMP, HSTROPN #### [facility] [address] [place] [address] Dr. Oh Trotter Erythrocyte distribution width (RBC) [Ratio] 12.4 % Normal 11.0-15.0 [facility] Comment on above: Performed By: #### L IPA, CMP, HSTROPN #### [facility] [address] [place] [address] Dr. Oh Trotter Hematocrit (Bld) [Volume fraction] 44.8 % Normal 42.0-54.[address] [facility] Comment on above: Performed By: #### L IPA, CMP, HSTROPN #### [facility] [address] [place] [address] Dr. Oh Trotter Hemoglobin (Bld) [Mass/Vol] 15.7 g/dL Normal 14.0-18.[address] [facility] Comment on above: Performed By: #### L IPA, CMP, HSTROPN #### [facility] [address] [place] [address] Dr. Oh Trotter IG # 0.02 10e3/ul Normal 0.00-0.[address] [facility] Comment on above: Performed By: #### L IPA, CMP, HSTROPN #### [facility] [address] [place] [address] Dr. Oh Trotter IG % 0.2 % Normal 0.0-0.[address] [facility] Comment on above: Performed By: #### L IPA, CMP, HSTROPN #### [facility] [address] [place] [address] Dr. Oh Trotter LYMPH # 3.2 103/ul Normal 1.2-3.8 [facility] Comment on above: Performed By: #### L IPA, CMP, HSTROPN #### [facility] [address] [place] [address] Dr. Oh Trotter Lymphocytes/100 WBC (Bld) 39.2 % Normal 20.5-60.0 [facility] Comment on above: Performed By: #### L IPA, CMP, HSTROPN #### [facility] [address] [place] [address] Dr. Oh Trotter MANUAL DIFF REQ NO Normal [facility] Comment on above: Performed By: #### L IPA, CMP, HSTROPN #### [facility] [address] [place] [address] Dr. Oh Trotter MCH (RBC) [Entitic mass] 29.3 pg Normal 25.9-34.0 [facility] Comment on above: Performed By: #### L IPA, CMP, HSTROPN #### [facility] [address] [place] [address] Dr. Oh Trotter MCHC (RBC) [Mass/Vol] 35.0 g/dL Normal 29.9-35.[address] [facility] Comment on above: Performed By: #### L IPA, CMP, HSTROPN #### [facility] [address] [place] [address] Dr. Oh Trotter MCV (RBC) [Entitic vol] 83.7 fL Normal 80.0-94.0 [facility] Comment on above: Performed By: #### L IPA, CMP, HSTROPN #### [facility] [address] [place] [address] Dr. Oh Trotter MONO # 0.6 103/ul Normal 0.3-0.8 [facility] Comment on above: Performed By: #### L IPA, CMP, HSTROPN #### [facility] [address] [place] [address] Dr. Oh Trotter Monocytes/100 WBC (Bld) 7.5 % Normal 1.7-12.[address] [facility] Comment on above: Performed By: #### L IPA, CMP, HSTROPN #### [facility] [address] [place] [address] Dr. Oh Trotter NEUT # 4.3 103/ul Normal 1.4-6.[address] [facility] Comment on above: Performed By: #### L IPA, CMP, HSTROPN #### [facility] [address] [place] [address] Dr. Oh Trotter Neutrophils/100 WBC (Bld) 52.0 % Normal 43.0-75.[address] [facility] Comment on above: Performed By: #### L IPA, CMP, HSTROPN #### [facility] [address] [place] [address] Dr. Oh Trotter Platelet mean volume (Bld) [Entitic vol] 9.8 fL Normal 9.5-13.[address] [facility] Comment on above: Performed By: #### L IPA, CMP, HSTROPN #### [facility] [address] [place] [address] Dr. Oh Trotter PLT 210 103/ul Normal 150-[address] [facility] Comment on above: Performed By: #### L IPA, CMP, HSTROPN #### [facility] [address] [place] [address] Dr. Oh Trotter RBC 5.35 106/ul Normal 4.70-6.[address] [facility] Comment on above: Performed By: #### L IPA, CMP, HSTROPN #### [facility] [address] [place] [address] Dr. Oh Trotter WBC 8.2 103/ul Normal 4.0-11.[address] [facility] Comment on above: Performed By: #### L IPA, CMP, HSTROPN #### [facility] [address] [place] [address] Dr. Oh Trotter OCC BLD IMMUNOASSAYon 2022 OCCULT BLOOD Positive Abnormal NEGATIVE [facility] Comment on above: Performed By: #### P TT, PT #### [facility] [address] [place] [address] Dr. Oh Trotter PROF 14(COMP METB)on 023 Albumin [Mass/Vol] 3.9 g/dL Normal 3.4-5.0 [facility] Comment on above: Performed By: #### L IPA, CMP, HSTROPN #### [facility] [address] [place] [address] Dr. Oh Trotter Albumin/Globulin [Mass ratio] 0.9 {ratio} Normal [facility] Comment on above: Performed By: #### L IPA, CMP, HSTROPN #### [facility] [address] [place] [address] Dr. Oh Trotter ALP [Catalytic activity/Vol] 98 U/L Normal 46-116 [facility] Comment on above: Performed By: #### L IPA, CMP, HSTROPN #### [facility] [address] [place] [address] Dr. Oh Trotter ALT [Catalytic activity/Vol] 47 U/L Normal 16-63 [facility] Comment on above: Performed By: #### L IPA, CMP, HSTROPN #### [facility] [address] [place] [address] Dr. Oh Trotter Anion gap [Moles/Vol] 13.8 mmol/L Normal [facility] Comment on above: Performed By: #### L IPA, CMP, HSTROPN #### [facility] [address] [place] [address] Dr. Oh Trotter AST [Catalytic activity/Vol] 18 U/L Normal 15-37 [facility] Comment on above: Performed By: #### L IPA, CMP, HSTROPN #### [facility] [address] [place] [address] Dr. Oh Trotter Bilirubin [Mass/Vol] 0.3 mg/dL Normal 0.2-1.0 [facility] Comment on above: Performed By: #### L IPA, CMP, HSTROPN #### [facility] [address] [place] [address] [address] Oh Trotter Calcium [Mass/Vol] 8.8 mg/dL Normal 8.5-10.1 [facility] Comment on above: Performed By: #### L IPA, CMP, HSTROPN #### [facility] [address] [place] [address] [address] Oh Trotter Chloride [Moles/Vol] 105 mmol/L Normal 98-[address] [facility] Comment on above: Performed By: #### L IPA, CMP, HSTROPN #### [facility] [address] [address] [address] Oh Trotter CO2 [Moles/Vol] 25.2 mmol/L Normal 21.0-32.0 [facility] Comment on above: Performed By: #### L IPA, CMP, HSTROPN #### [facility] [address] [address] [address] Oh Trotter Creatinine [Mass/Vol] 1.02 mg/dL Normal 0.70-1.[address] [facility] Comment on above: Performed By: #### L IPA, CMP, HSTROPN #### [facility] [address] [address] [address] Oh Trotter EGFR-AF NEPALESE >60 Normal >=60 [facility] Comment on above: Performed By: #### L IPA, CMP, HSTROPN #### [facility] [address] [address] [address] Oh Trotter EGFR-NON AF NEPALESE >60 Normal >=[address] [facility] Comment on above: Performed By: #### L IPA, CMP, HSTROPN #### [facility] [address] [address] [address] Oh Trotter Globulin (S) [Mass/Vol] 4.2 g/dL Normal The [facility] Comment on above: Performed By: #### L IPA, CMP, HSTROPN #### [facility] [address] [address] [address] Oh Trotter Glucose [Mass/Vol] 104 mg/dL Normal 74-106 The [facility] Comment on above: Performed By: #### L IPA, CMP, HSTROPN #### [facility] [address] [address] [address] Oh Trotter Potassium [Moles/Vol] 4.0 mmol/L Normal 3.5-5.[address] [facility] Comment on above: Performed By: #### L IPA, CMP, HSTROPN #### [facility] [address] [place] [address] Dr. Oh Trotter Protein [Mass/Vol] 8.1 g/dL Normal 6.4-8.2 The [facility] Comment on above: Performed By: #### L IPA, CMP, HSTROPN #### [facility] [address] [place] [address] Dr. Oh Trotter Sodium [Moles/Vol] 140 mmol/L Normal 136-145 The [facility] Comment on above: Performed By: #### L IPA, CMP, HSTROPN #### [facility] [address] [place] [address] Dr. Oh Trotter Urea nitrogen [Mass/Vol] 16.0 mg/dL Normal 7.0-18.0 [facility] Comment on above: Performed By: #### L IPA, CMP, HSTROPN #### [facility] [address] [place] [address] Dr. Oh Trotter Urea nitrogen/Creatinine [Mass ratio] 15.7 mg/mg Normal The [facility] Comment on above: Performed By: #### L IPA, CMP, HSTROPN #### [facility] [address] [place] [address] Dr. Oh Trotter PROTIMEon 07-28-2022 INR Coag (PPP) [Relative time] {INR} Normal The [facility] Comment on above: Performed By: #### P TT, PT #### [facility] [address] [place] [address] Dr. Oh Trotter INR GUIDELINES SEE BELOW Normal The [facility] Comment on above: Result Comment: ADITHYA RED INR: 2.0 - 3.0 CONDITIONS NOT LISTED BELOW 2.5 - 3.5 FOR PROSTHETIC HEART VALVE REPLACEMENT 2.5 - 3.5 RECURRENT THROMBOSIS Performed By: #### P TT, PT #### [facility] [address] [address] [address] Oh Trotter PT Coag (PPP) [Time] 9.8 s Normal 9.0-11.[address] [facility] Comment on above: Performed By: #### P TT, PT #### [facility] [address] [address] [address] Oh Trotter PTTon 07-28-2022 aPTT Coag (Bld) [Time] 26.6 s Normal 22.3-36.[address] [facility] Comment on above: Performed By: #### P TT, PT #### [facility] [address] [place] [address] Dr. Oh Trotter Covid-19 PCR ([facility])on SARS-CoV-2 (COVID-19) RNA SHAE+probe Ql (Unsp spec) Not detected Normal NOT DETECTED The [facility] Comment on above: Result Comment: This test is not yet approved or cleared by the [place] FDA. When there are no FDA-approved or cleared tests available, and other criteria are met, FDA can make tests available under an emergency access mechanism called an Emergency Use Authorization (EUA). The EUA for this test is supported by the [employer] Engineer of Health and Human Service's (HHS's) declaration [...] #### P TT, PT #### [facility] [address] [place] [address] Dr. Oh Trotter INFLUENZA A AND B AGon 05-11 INFLUANEGH SEE BELOW Normal The [facility] Comment on above: Result Comment: Nega tive for Flu A protein angiten. Infection due to Flu A cannot be ruled out. Flu A angiten in the sample may be below the detection limit of the test. Performed By: #### L IPA, CMP, HSTROPN #### [facility] [address] [place] [address] Dr. Oh [facility]rot[facility] Normal [facility] Comment on above: Result Comment: Nega tive for Flu B protein antigen. Infection due to Flu B cannot be ruled out. Flu B antigen in the sample may be below the detection limit of the test. Performed By: #### L IPA, CMP, HSTROPN #### [facility] [address] [place] [address] Dr. Oh Trotter INFLUENZA A AG Negative Normal NEGATIVE SEE COMMENT [facility] Comment on above: Performed By: #### L IPA, CMP, HSTROPN #### [facility] [address] [place] [address] Dr. Oh Trotter INFLUENZA B AG Negative Normal NEGATIVE SEE COMMENT The [facility] Comment on above: Performed By: #### L IPA, CMP, HSTROPN #### [facility] [address] [place] [address] Dr. Oh Trotter CBC AUTO DIFFon 03-06-2022 BASO # 0.0 103/ul Normal 0.0-0.[address] [facility] Comment on above: Performed By: #### P TT, PT #### [facility] [address] [place] [address] Dr. Oh Trotter Basophils/100 WBC (Bld) 0.2 % Normal 0.2-2.[address] [facility] Comment on above: Performed By: #### P TT, PT #### [facility] [address] [place] [address] Dr. Oh Trotter EO # 0.0 103/ul Normal 0.0-0.[address] [facility] Comment on above: Performed By: #### P TT, PT #### [facility] [address] [place] [address] Dr. Oh Trotter Eosinophils/100 WBC (Bld) 0.4 % Critically low 0.9-7.0 [facility] Comment on above: Performed By: #### P TT, PT #### [facility] [address] [place] [address] Dr. Oh Trotter Erythrocyte distribution width (RBC) [Ratio] 12.2 % Normal 11.0-15.0 [facility] Comment on above: Performed By: #### P TT, PT #### [facility] [address] [place] [address] Dr. Oh Trotter Hematocrit (Bld) [Volume fraction] 45.7 % Normal 42.0-54.0 [facility] Comment on above: Performed By: #### P TT, PT #### [facility] [address] [place] [address] Dr. Oh Trotter Hemoglobin (Bld) [Mass/Vol] 16.0 g/dL Normal 14.0-18.0 [facility] Comment on above: Performed By: #### P TT, PT #### [facility] [address] [place] [address] Dr. Oh Trotter IG # 0.04 10e3/ul Critically high 0.00-0.03 [facility] Comment on above: Performed By: #### P TT, PT #### [facility] [address] [place] [address] Dr. Oh Trotter IG % 0.4 % Normal 0.0-0.5 [facility] Comment on above: Performed By: #### P TT, PT #### [facility] [address] [place] [address] Dr. Oh Trotter LYMPH # 2.8 103/ul Normal 1.2-3.[address] [facility] Comment on above: Performed By: #### P TT, PT #### [facility] [address] [place] [address] Dr. Oh Trotter Lymphocytes/100 WBC (Bld) 29.5 % Normal 20.5-60.0 [facility] Comment on above: Performed By: #### P TT, PT #### [facility] [address] [place] [address] Dr. Oh Trotter MANUAL DIFF REQ NO Normal The [facility] Comment on above: Performed By: #### P TT, PT #### [facility] [address] [place] [address] Dr. Oh Trotter MCH (RBC) [Entitic mass] 29.7 pg Normal 25.9-34.[address] [facility] Comment on above: Performed By: #### P TT, PT #### [facility] [address] [place] [address] Dr. Oh Trotter MCHC (RBC) [Mass/Vol] 35.0 g/dL Normal 29.9-35.[address] [facility] Comment on above: Performed By: #### P TT, PT #### [facility] [address] [place] [address] Dr. Oh Trotter MCV (RBC) [Entitic vol] 84.8 fL Normal 80.0-94.[address] [facility] Comment on above: Performed By: #### P TT, PT #### [facility] [address] [place] [address] Dr. Oh Trotter MONO # 0.5 103/ul Normal 0.3-0.[address] [facility] Comment on above: Performed By: #### P TT, PT #### [facility] [address] [place] [address] Dr. Oh Trotter Monocytes/100 WBC (Bld) 5.2 % Normal 1.7-12.[address] [facility] Comment on above: Performed By: #### P TT, PT #### [facility] [address] [place] [address] Dr. Oh Trotter NEUT # 6.2 103/ul Normal 1.4-6.[address] [facility] Comment on above: Performed By: #### P TT, PT #### [facility] [address] [place] [address] Dr. Oh Trotter Neutrophils/100 WBC (Bld) 64.3 % Normal 43.0-75.[address] [facility] Comment on above: Performed By: #### P TT, PT #### [facility] [address] [address] [address] Oh Trotter Platelet mean volume (Bld) [Entitic vol] 9.9 fL Normal 9.5-13.[address] [facility] Comment on above: Performed By: #### P TT, PT #### [facility] [address] [address] [address] Oh Trotter PLT 196 103/ul Normal 150-[address] [facility] Comment on above: Performed By: #### P TT, PT #### [facility] [address] [address] [address] Oh Trotter RBC 5.39 106/ul Normal 4.70-6.[address] [facility] Comment on above: Performed By: #### P TT, PT #### [facility] [address] [place] [address] Dr. Oh Trotter WBC 9.6 103/ul Normal 4.0-11.[address] [facility] Comment on above: Performed By: #### P TT, PT #### [facility] [address] [place] [address] Dr. Oh Trotter D-DIMERon 03-06-2022 D-DIMER <0.19 Normal <=0.[address] [facility] Comment on above: Performed By: #### P TT, PT #### [facility] [address] [place] [address] Dr. Oh Trotter D-DIMER COMMENTS SEE BELOW Normal [facility] Comment on above: Result Comment: Incr eases [...] #### P TT, PT #### [facility] [address] [place] [address] Dr. Oh Trotter ER URINE PROFILEon 2 Bilirubin Ql (U) Negative Normal NEGATIVE [facility] Comment on above: Performed By: #### Marcelo GLOVER UMICRO #### [facility] [address] [place] [address] Dr. Oh Trotter Clarity (U) CLEAR Normal CLEAR [facility] Comment on above: Performed By: #### Marcelo GLOVER UMICRO #### [facility] [address] [address] [address] Oh Trotter Color (U) LT. YELLOW Normal YELLOW [facility] Comment on above: Performed By: #### Marcelo GLOVER UMICRO #### [facility] [address] [place] [address] Dr. Oh OLIVA A micrscopic examination will be performed if indicated. Normal The [facility] Comment on above: Performed By: #### Marcelo GLOVER UMICRO #### [facility] [address] [place] [address] Dr. Oh Trotter Glucose Ql (U) Negative Normal NEGATIVE [facility] Comment on above: Performed By: #### Marcelo GLOVER UMICRO #### [facility] [address] [place] [address] Dr. Oh Trotter Hemoglobin Ql (U) SMALL Abnormal NEGATIVE [facility] Comment on above: Performed By: #### Marcelo GLOVER UMICRO #### [facility] [address] [place] [address] Dr. Oh Trotter Ketones Ql (U) Negative Normal NEGATIVE [facility] Comment on above: Performed By: #### Marcelo GLOVER UMICRO #### [facility] [address] [place] [address] Dr. Oh Trotter LEUKOCYTES Negative Normal NEGATIVE [facility] Comment on above: Performed By: #### Marcelo GLOVER UMICRO #### [facility] [address] [place] [address] Dr. Oh Trotter Nitrite Ql (U) Negative Normal NEGATIVE [facility] Comment on above: Performed By: #### Marcelo GLOVER UMICRO #### [facility] [address] [place] [address] Dr. Oh Trotter pH (U) 6.0 [pH] Normal 5-9 [facility] Comment on above: Performed By: #### OSVALDO STONER #### [facility] [address] [place] [address] Dr. Oh Trotter SPEC GRAVITY 1.025 Normal 1.005-<=1.025 [facility] Comment on above: Performed By: #### OSVALDO STONER #### [facility] [address] [place] [address] Dr. Oh Trotter UA PROTEIN Negative Normal NEGATIVE/ TRACE [facility] Comment on above: Performed By: #### OSVALDO STONER #### [facility] [address] [place] [address] Dr. Oh Trotter UR MICRO IND INDICATED Normal [facility] Comment on above: Performed By: #### OSVALDO STONER #### [facility] [address] [place] [address] Dr. Oh Trotter Urobilinogen Qn (U) 0.2 {Federico'U}/dL Normal 0.2 - 1. 0 [facility] Comment on above: Performed By: #### OSVALDO STONER #### [facility] [address] [place] [address] Dr. Oh Trotter LIPASEon 03-06-2022 Lipase [Catalytic activity/Vol] 125.0 U/L Normal 73.0-393.0 [facility] Comment on above: Performed By: #### L IPA, CMP, HSTROPN #### [facility] [address] [place] [address] Dr. Oh Trotter PROF 14(COMP METB)on 022 Albumin [Mass/Vol] 3.8 g/dL Normal 3.4-5.0 [facility] Comment on above: Performed By: #### L IPA, CMP, HSTROPN #### [facility] [address] [place] [address] Dr. Oh Trotter Albumin/Globulin [Mass ratio] 0.8 {ratio} Normal [facility] Comment on above: Performed By: #### L IPA, CMP, HSTROPN #### [facility] [address] [address] [address] Oh Trotter ALP [Catalytic activity/Vol] 77 U/L Normal 46-116 [facility] Comment on above: Performed By: #### L IPA, CMP, HSTROPN #### [facility] [address] [place] [address] Dr. Oh Trotter ALT [Catalytic activity/Vol] 39 U/L Normal 16-63 [facility] Comment on above: Performed By: #### L IPA, CMP, HSTROPN #### [facility] [address] [place] [address] Dr. Oh Trotter Anion gap [Moles/Vol] 9.3 mmol/L Normal [facility] Comment on above: Performed By: #### L IPA, CMP, HSTROPN #### [facility] [address] [place] [address] Dr. Oh Trotter AST [Catalytic activity/Vol] 21 U/L Normal 15-37 [facility] Comment on above: Performed By: #### L IPA, CMP, HSTROPN #### [facility] [address] [place] [address] Dr. Oh Trotter Bilirubin [Mass/Vol] 0.4 mg/dL Normal 0.2-1.0 [facility] Comment on above: Performed By: #### L IPA, CMP, HSTROPN #### [facility] [address] [place] [address] Dr. Oh Trotter Calcium [Mass/Vol] 9.2 mg/dL Normal 8.5-10.1 [facility] Comment on above: Performed By: #### L IPA, CMP, HSTROPN #### [facility] [address] [place] [address] Dr. Oh Trotter Chloride [Moles/Vol] 102 mmol/L Normal 98-107 [facility] Comment on above: Performed By: #### L IPA, CMP, HSTROPN #### [facility] [address] [address] [address] Oh Trotter CO2 [Moles/Vol] 26.6 mmol/L Normal 21.0-32.0 [facility] Comment on above: Performed By: #### L IPA, CMP, HSTROPN #### [facility] [address] [address] [address] Oh Trotter Creatinine [Mass/Vol] 1.08 mg/dL Normal 0.70-1.30 [facility] Comment on above: Performed By: #### L IPA, CMP, HSTROPN #### [facility] [address] [address] [address] Oh Trotter EGFR-AF NEPALESE >60 Normal >=60 [facility] Comment on above: Performed By: #### L IPA, CMP, HSTROPN #### [facility] [address] [place] [address] Dr. Oh Trotter EGFR-NON AF NEPALESE >60 Normal >=60 [facility] Comment on above: Performed By: #### L IPA, CMP, HSTROPN #### [facility] [address] [address] [address] Oh Trotter Globulin (S) [Mass/Vol] 4.7 g/dL Normal [facility] Comment on above: Performed By: #### L IPA, CMP, HSTROPN #### [facility] [address] [place] [address] Dr. Oh Trotter Glucose [Mass/Vol] 103 mg/dL Normal 74-106 [facility] Comment on above: Performed By: #### L IPA, CMP, HSTROPN #### [facility] [address] [address] [address] Oh Trotter Potassium [Moles/Vol] 3.9 mmol/L Normal 3.5-5.1 [facility] Comment on above: Performed By: #### L IPA, CMP, HSTROPN #### [facility] [address] [address] [address] Oh Trotter Protein [Mass/Vol] 8.5 g/dL Critically high 6.4-8.2 [facility] Comment on above: Performed By: #### L IPA, CMP, HSTROPN #### [facility] [address] [address] [address] Oh Trotter Sodium [Moles/Vol] 134 mmol/L Critically low 136-[address] [facility] Comment on above: Performed By: #### L IPA, CMP, HSTROPN #### [facility] [address] [place] [address] Dr. Oh Trotter Urea nitrogen [Mass/Vol] 20.0 mg/dL Critically high 7.0-18.0 [facility] Comment on above: Performed By: #### L IPA, CMP, HSTROPN #### [facility] [address] [place] [address] Dr. Oh Trotter Urea nitrogen/Creatinine [Mass ratio] 18.5 mg/mg Normal [facility] Comment on above: Performed By: #### L IPA, CMP, HSTROPN #### [facility] [address] [place] [address] Dr. Oh Trotter PROTIMEon 03-06-2022 INR Coag (PPP) [Relative time] 1.00 {INR} Normal [facility] Comment on above: Performed By: #### P TT, PT #### [facility] [address] [place] [address] Dr. Oh Trotter INR GUIDELINES SEE BELOW Normal [facility] Comment on above: Result Comment: ADITHYA RED INR: 2.0 - 3.0 CONDITIONS NOT LISTED BELOW 2.5 - 3.5 FOR PROSTHETIC HEART VALVE REPLACEMENT 2.5 - 3.5 RECURRENT THROMBOSIS Performed By: #### P TT, PT #### [facility] [address] [place] [address] Dr. Oh Trotter PT Coag (PPP) [Time] 10.8 s Normal 9.0-11.6 [facility] Comment on above: Performed By: #### P TT, PT #### [facility] [address] [place] [address] Dr. Oh Trotter PTTon 03-06-2022 aPTT Coag (Bld) [Time] 27.9 s Normal 22.3-36.[address] [facility] Comment on above: Performed By: #### P TT, PT #### [facility] [address] [place] [address] Dr. Oh Trotter TROPONIN, HIGH SENSITIVITYon 03-06-2022 HSTROP 7.9 pg/mL Normal 4.0-76.[address] [facility] [...] L IPA, CMP, HSTROPN #### [facility] [address] [place] [address] Dr. Oh Trotter URINE MICROSCOPIC ONLYon BACTERIA NONE SEEN Normal NONE SEEN The [facility] Comment on above: Performed By: #### Marcelo GLOVER UMICRO #### [facility] [address] [place] [address] Dr. Oh Trotter Bacteria identified Cx Nom (U) NOT INDICATED Normal The [facility] Comment on above: Performed By: #### Marcelo GLOVER UMICRO #### [facility] [address] [place] [address] Dr. Oh Trotter CAST NONE SEEN Normal NONE SEEN The [facility] Comment on above: Performed By: #### Marcelo GLOVER UMICRO #### [facility] [address] [place] [address] Dr. Oh Trotter Crystals LM Nom (Urine sed) NONE SEEN Normal NONE SEEN The [facility] Comment on above: Performed By: #### E RUR UMICRO #### [facility] [address] [place] [address] Dr. Oh Trotter Epithelial cells LM Ql (Urine sed) FEW Abnormal NONE SEEN /RARE The [facility] Comment on above: Performed By: #### E RUR, UMICRO #### [facility] [address] [place] [address] Dr. Oh Trotter MUCOUS MODERATE Abnormal NONE SEEN The [facility] Comment on above: Performed By: #### E RURAUBRIEICRO #### [facility] [address] [address] [address] Oh Trotter RBC 0-2 Normal 0-2 [facility] Comment on above: Performed By: #### E MATHIEU GLOVERRO #### [facility] [address] [address] [address] Oh Trotter WBC NONE SEEN Normal NONE SEEN The [facility] Comment on above: Performed By: #### E ADALBERTO UMICRO #### [facility] [address] [address] [address] Oh Trotter XR ABD FLAT UP_PA [...] Date: 2022-03-06 15:55 Normal [facility] XR CSPINE 2_3 VIEWSon 2021 XR [...] by: LUCY JEWELL Date: 2022-03-06 15:54 Normal [facility] CBC AUTO DIFFon 11-02-2021 BASO # 0.0 103/ul Normal 0.0-0.1 [facility] Comment on above: Performed By: #### L IPA, CMP, HSTROPN #### [facility] [address] [place] [address] Dr. Oh Trotter Basophils/100 WBC (Bld) 0.2 % Normal 0.2-2.0 [facility] Comment on above: Performed By: #### L IPA, CMP, HSTROPN #### [facility] [address] [place] [address] Dr. Oh Trotter EO # 0.1 103/ul Normal 0.0-0.[address] [facility] Comment on above: Performed By: #### L IPA, CMP, HSTROPN #### [facility] [address] [place] [address] Dr. Oh Trotter Eosinophils/100 WBC (Bld) 1.0 % Normal 0.9-7.[address] [facility] Comment on above: Performed By: #### L IPA, CMP, HSTROPN #### [facility] [address] [place] [address] Dr. Oh Trotter Erythrocyte distribution width (RBC) [Ratio] 13.0 % Normal 11.0-15.0 [facility] Comment on above: Performed By: #### L IPA, CMP, HSTROPN #### [facility] Laboratory [address] [place] [address] Dr. Oh Trotter Hematocrit (Bld) [Volume fraction] 46.6 % Normal 42.0-54.[address] [facility] Comment on above: Performed By: #### L IPA, CMP, HSTROPN #### [facility] Laboratory [address] [place] [address] Dr. Oh Trotter Hemoglobin (Bld) [Mass/Vol] 15.8 g/dL Normal 14.0-18.[address] [facility] Comment on above: Performed By: #### L IPA, CMP, HSTROPN #### [facility] Laboratory [address] [place] [address] Dr. Oh Trotter IG # 0.02 10e3/ul Normal 0.00-0.03 [facility] Comment on above: Performed By: #### L IPA, CMP, HSTROPN #### [facility] Laboratory [address] [address] [address] Oh Trotter IG % 0.2 % Normal 0.0-0.[address] [facility] Comment on above: Performed By: #### L IPA, CMP, HSTROPN #### [facility] Laboratory [address] [address] [address] Oh Trotter LYMPH # 1.6 103/ul Normal 1.2-3.[address] [facility] Comment on above: Performed By: #### L IPA, CMP, HSTROPN #### [facility] Laboratory [address] [place] [address] Dr. Oh Trotter Lymphocytes/100 WBC (Bld) 15.3 % Critically low 20.5-60.0 [facility] Comment on above: Performed By: #### L IPA, CMP, HSTROPN #### [facility] Laboratory [address] [place] [address] Dr. Oh Trotter MANUAL DIFF REQ NO Normal [facility] Comment on above: Performed By: #### L IPA, CMP, HSTROPN #### [facility] [address] [place] [address] Dr. Oh Trotter MCH (RBC) [Entitic mass] 30.1 pg Normal 25.9-34.0 [facility] Comment on above: Performed By: #### L IPA, CMP, HSTROPN #### [facility] Laboratory [address] [place] [address] Dr. Oh Trotter MCHC (RBC) [Mass/Vol] 33.9 g/dL Normal 29.9-35.[address] [facility] Comment on above: Performed By: #### L IPA, CMP, HSTROPN #### [facility] Laboratory [address] [place] [address] Dr. Oh Trotter MCV (RBC) [Entitic vol] 88.8 fL Normal 80.0-94.0 [facility] Comment on above: Performed By: #### L IPA, CMP, HSTROPN #### [facility] Laboratory [address] [place] [address] Dr. Oh Trotter MONO # 0.7 103/ul Normal 0.3-0.[address] [facility] Comment on above: Performed By: #### L IPA, CMP, HSTROPN #### [facility] Laboratory [address] [place] [address] Dr. Oh Trotter Monocytes/100 WBC (Bld) 6.8 % Normal 1.7-12.[address] [facility] Comment on above: Performed By: #### L IPA, CMP, HSTROPN #### [facility] Laboratory [address] [address] [address] Oh Trotter NEUT # 7.9 103/ul Critically high 1.4-6.5 [facility] Comment on above: Performed By: #### L IPA, CMP, HSTROPN #### [facility] Laboratory [address] [place] [address] Dr. Oh Trotter Neutrophils/100 WBC (Bld) 76.5 % Critically high 43.0-75.[address] [facility] Comment on above: Performed By: #### L IPA, CMP, HSTROPN #### [facility] Laboratory [address] [place] [address] Dr. Oh Trotter Platelet mean volume (Bld) [Entitic vol] 9.5 fL Normal 9.5-13.[address] [facility] Comment on above: Performed By: #### L IPA, CMP, HSTROPN #### [facility] Laboratory [address] [place] [address] Dr. Oh Trotter PLT 191 103/ul Normal 150-[address] [facility] Comment on above: Performed By: #### L IPA, CMP, HSTROPN #### [facility] Laboratory [address] [place] [address] Dr. Oh Trotter RBC 5.25 106/ul Normal 4.70-6.[address] [facility] Comment on above: Performed By: #### L IPA, CMP, HSTROPN #### [facility] [address] [place] [address] Dr. Oh Trotter WBC 10.4 103/ul Normal 4.0-11.[address] [facility] Comment on above: Performed By: #### L IPA, CMP, HSTROPN #### [facility] [address] [place] [address] Dr. Oh Trotter PROF CHEM 8 (BAS METB)on Anion gap [Moles/Vol] 9.7 mmol/L Normal [facility] Comment on above: Performed By: #### L IPA, CMP, HSTROPN #### [facility] [address] [address] [address] Oh Trotter Calcium [Mass/Vol] 8.9 mg/dL Normal 8.5-10.1 [facility] Comment on above: Performed By: #### L IPA, CMP, HSTROPN #### [facility] [address] [place] [address] Dr. Oh Trotter Chloride [Moles/Vol] 102 mmol/L Normal 98-107 [facility] Comment on above: Performed By: #### L IPA, CMP, HSTROPN #### [facility] [address] [place] [address] Dr. Oh Trotter CO2 [Moles/Vol] 29.1 mmol/L Normal 21.0-32.0 [facility] Comment on above: Performed By: #### L IPA, CMP, HSTROPN #### [facility] [address] [place] [address] Dr. Oh Trotter Creatinine [Mass/Vol] 1.10 mg/dL Normal 0.70-1.30 [facility] Comment on above: Performed By: #### L IPA, CMP, HSTROPN #### [facility] [address] [place] [address] Dr. Oh Trotter EGFR-AF NEPALESE >60 Normal >=60 [facility] Comment on above: Performed By: #### L IPA, CMP, HSTROPN #### [facility] [address] [place] [address] Dr. Oh Trotter EGFR-NON AF NEPALESE >60 Normal >=60 [facility] Comment on above: Performed By: #### L IPA, CMP, HSTROPN #### [facility] [address] [place] [address] Dr. Oh Trotter Glucose [Mass/Vol] 114 mg/dL Critically high 74-106 [facility] Comment on above: Performed By: #### L IPA, CMP, HSTROPN #### [facility] [address] [address] [address] Oh Trotter Potassium [Moles/Vol] 3.8 mmol/L Normal 3.5-5.1 [facility] Comment on above: Performed By: #### L IPA, CMP, HSTROPN #### [facility] [address] [address] [address] Oh Trotter Sodium [Moles/Vol] 137 mmol/L Normal 136-145 [facility] Comment on above: Performed By: #### L IPA, CMP, HSTROPN #### [facility] [address] [address] [address] Oh Trotter Urea nitrogen [Mass/Vol] 10.0 mg/dL Normal 7.0-18.0 [facility] Comment on above: Performed By: #### L IPA, CMP, HSTROPN #### [facility] [address] [address] [address] Oh Trotter Urea nitrogen/Creatinine [Mass ratio] 9.1 mg/mg Normal [facility] Comment on above: Performed By: #### L IPA, CMP, HSTROPN #### [facility] [address] [address] [address] Oh Trotter CARDIAC SUKUMAR ADMITon 022 CK [Catalytic activity/Vol] 97 U/L Normal 39-308 [facility] Comment on above: Performed By: #### L IPA, CMP, HSTROPN #### [facility] [address] [address] [address] Oh Trotter CK.MB [Mass/Vol] 0.75 ng/mL Normal <=3.60 [facility] Comment on above: Performed By: #### L IPA, CMP, HSTROPN #### [facility] [address] [address] [address] Oh Trotter HSTROP 4.4 pg/mL Normal 4.0-76.1 [facility] Comment on above: Result Comment: CUT- OFF POINTS HAVE BEEN ESTABLISHED BASED ON THE FOURTH UNIVERSAL DEFINITIONS OF MYOCARDIAL INFARCTION. THE UPPER REFERENCE LIMIT (URL) OF TROPONIN, DEFINED THE 99TH PERCENTILE OF cTnI DISTRIBUTION IN A REFERENCE POPULATION, HAS BEEN CONFIRMED THE DECISION THRESHOLD FOR RI DIAGNOSIS. Performed By: #### L IPA, CMP, HSTROPN #### [facility] [address] [place] [address] Dr. Oh Trotter CARON 54 ng/mL Normal 16-[address] [facility] Comment on above: Performed By: #### L IPA, CMP, HSTROPN #### [facility] [address] [place] [address] Dr. Oh Trotter CBC AUTO DIFFon 10-16-2021 BASO # 0.0 103/ul Normal 0.0-0.1 [facility] Comment on above: Performed By: #### P TT, PT #### [facility] [address] [place] [address] Dr. Oh Trotter Basophils/100 WBC (Bld) 0.1 % Critically low 0.2-2.0 [facility] Comment on above: Performed By: #### P TT, PT #### [facility] [address] [place] [address] Dr. Oh Trotter EO # 0.0 103/ul Normal 0.0-0.7 [facility] Comment on above: Performed By: #### P TT, PT #### [facility] [address] [place] [address] Dr. Oh Trotter Eosinophils/100 WBC (Bld) 0.3 % Critically low 0.9-7.[address] [facility] Comment on above: Performed By: #### P TT, PT #### [facility] [address] [place] [address] Dr. Oh Trotter Erythrocyte distribution width (RBC) [Ratio] 12.5 % Normal 11.0-15.0 [facility] Comment on above: Performed By: #### P TT, PT #### [facility] [address] [place] [address] Dr. Oh Trotter Hematocrit (Bld) [Volume fraction] 47.1 % Normal 42.0-54.[address] [facility] Comment on above: Performed By: #### P TT, PT #### [facility] [address] [place] [address] Dr. Oh Trotter Hemoglobin (Bld) [Mass/Vol] 16.7 g/dL Normal 14.0-18.[address] [facility] Comment on above: Performed By: #### P TT, PT #### [facility] [address] [place] [address] Dr. Oh Trotter IG # 0.02 10e3/ul Normal 0.00-0.[address] [facility] Comment on above: Performed By: #### P TT, PT #### [facility] [address] [place] [address] Dr. Oh Trotter IG % 0.3 % Normal 0.0-0.[address] [facility] Comment on above: Performed By: #### P TT, PT #### [facility] [address] [place] [address] Dr. Oh Trotter LYMPH # 2.3 103/ul Normal 1.2-3.[address] [facility] Comment on above: Performed By: #### P TT, PT #### [facility] [address] [place] [address] Dr. Oh Trotter Lymphocytes/100 WBC (Bld) 31.7 % Normal 20.5-60.[address] [facility] Comment on above: Performed By: #### P TT, PT #### [facility] [address] [place] [address] Dr. Oh Trotter MANUAL DIFF REQ NO Normal [facility] Comment on above: Performed By: #### P TT, PT #### [facility] [address] [place] [address] Dr. Oh Trotter MCH (RBC) [Entitic mass] 29.9 pg Normal 25.9-34.[address] [facility] Comment on above: Performed By: #### P TT, PT #### [facility] [address] [place] [address] Dr. Oh Trotter MCHC (RBC) [Mass/Vol] 35.5 g/dL Critically high 29.9-35.[address] [facility] Comment on above: Performed By: #### P TT, PT #### [facility] [address] [address] [address] Oh Trotter MCV (RBC) [Entitic vol] 84.4 fL Normal 80.0-94.[address] [facility] Comment on above: Performed By: #### P TT, PT #### [facility] [address] [address] [address] Oh Trotter MONO # 0.4 103/ul Normal 0.3-0.[address] [facility] Comment on above: Performed By: #### P TT, PT #### [facility] [address] [place] [address] Dr. Oh Trotter Monocytes/100 WBC (Bld) 4.9 % Normal 1.7-12.[address] [facility] Comment on above: Performed By: #### P TT, PT #### [facility] [address] [place] [address] Dr. Oh Trotter NEUT # 4.6 103/ul Normal 1.4-6.[address] [facility] Comment on above: Performed By: #### P TT, PT #### [facility] [address] [place] [address] Dr. Oh Trotter Neutrophils/100 WBC (Bld) 62.7 % Normal 43.0-75.[address] [facility] Comment on above: Performed By: #### P TT, PT #### [facility] [address] [address] [address] Oh Trotter Platelet mean volume (Bld) [Entitic vol] 10.3 fL Normal 9.5-13.[address] [facility] Comment on above: Performed By: #### P TT, PT #### [facility] [address] [place] [address] Dr. Oh Trotter PLT 225 103/ul Normal 150-[address] [facility] Comment on above: Performed By: #### P TT, PT #### [facility] [address] [place] [address] Dr. Oh Trotter RBC 5.58 106/ul Normal 4.70-6.[address] [facility] Comment on above: Performed By: #### P TT, PT #### [facility] [address] [place] [address] Dr. Oh Trotter WBC 7.3 103/ul Normal 4.0-11.0 [facility] Comment on above: Performed By: #### P TT, PT #### [facility] [address] [place] [address] Dr. Oh Trotter D-DIMERon 10-16-2021 D-DIMER <0.19 Normal <=0.59 [facility] Comment on above: Performed By: #### P TT, PT #### [facility] [address] [place] [address] Dr. Oh Trotter D-DIMER COMMENTS SEE BELOW Normal [facility] Comment on above: Result Comment: Incr eases [...] #### P TT, PT #### [facility] [address] [place] [address] Dr. Oh Trotter LIPASEon 10-16-2021 Lipase [Catalytic activity/Vol] 127.0 U/L Normal 73.0-393.[address] [facility] Comment on above: Performed By: #### L IPA, CMP, HSTROPN #### [facility] [address] [place] [address] Dr. Oh Trotter PROF 14(COMP METB)on 022 Albumin [Mass/Vol] 4.0 g/dL Normal 3.4-5.0 [facility] Comment on above: Performed By: #### L IPA, CMP, HSTROPN #### [facility] [address] [address] [address] Oh Trotter Albumin/Globulin [Mass ratio] 0.9 {ratio} Normal [facility] Comment on above: Performed By: #### L IPA, CMP, HSTROPN #### [facility] [address] [address] [address] Oh Trotter ALP [Catalytic activity/Vol] 73 U/L Normal 46-116 [facility] Comment on above: Performed By: #### L IPA, CMP, HSTROPN #### [facility] [address] [address] [address] Oh Trotter ALT [Catalytic activity/Vol] 45 U/L Normal 16-63 [facility] Comment on above: Performed By: #### L IPA, CMP, HSTROPN #### [facility] [address] [place] [address] Dr. Oh Trotter Anion gap [Moles/Vol] 15.4 mmol/L Normal [facility] Comment on above: Performed By: #### L IPA, CMP, HSTROPN #### [facility] [address] [address] [address] Oh Trotter AST [Catalytic activity/Vol] 25 U/L Normal 15-37 [facility] Comment on above: Performed By: #### L IPA, CMP, HSTROPN #### [facility] [address] [address] [address] Oh Trotter Bilirubin [Mass/Vol] 0.9 mg/dL Normal 0.2-1.0 [facility] Comment on above: Performed By: #### L IPA, CMP, HSTROPN #### [facility] [address] [address] [address] Oh Trotter Calcium [Mass/Vol] 9.3 mg/dL Normal 8.5-10.1 [facility] Comment on above: Performed By: #### L IPA, CMP, HSTROPN #### [facility] [address] [address] [address] Oh Trotter Chloride [Moles/Vol] 103 mmol/L Normal 98-107 [facility] Comment on above: Performed By: #### L IPA, CMP, HSTROPN #### [facility] [address] [address] [address] Oh Trotter CO2 [Moles/Vol] 20.4 mmol/L Critically low 21.0-32.0 [facility] Comment on above: Performed By: #### L IPA, CMP, HSTROPN #### [facility] [address] [address] [address] Oh Trotter Creatinine [Mass/Vol] 1.17 mg/dL Normal 0.70-1.30 [facility] Comment on above: Performed By: #### L IPA, CMP, HSTROPN #### [facility] [address] [place] [address] Dr. Oh Trotter EGFR-AF NEPALESE >60 Normal >=60 [facility] Comment on above: Performed By: #### L IPA, CMP, HSTROPN #### [facility] [address] [place] [address] Dr. Oh Trotter EGFR-NON AF NEPALESE >60 Normal >=60 [facility] Comment on above: Performed By: #### L IPA, CMP, HSTROPN #### [facility] [address] [place] [address] Dr. Oh Trotter Globulin (S) [Mass/Vol] 4.6 g/dL Normal [facility] Comment on above: Performed By: #### L IPA, CMP, HSTROPN #### [facility] [address] [place] [address] Dr. Oh Trotter Glucose [Mass/Vol] 127 mg/dL Critically high 74-106 [facility] Comment on above: Performed By: #### L IPA, CMP, HSTROPN #### [facility] [address] [place] [address] Dr. Oh Trotter Potassium [Moles/Vol] 3.8 mmol/L Normal 3.5-5.1 [facility] Comment on above: Performed By: #### L IPA, CMP, HSTROPN #### [facility] [address] [address] [address] Oh Trotter Protein [Mass/Vol] 8.6 g/dL Critically high 6.4-8.2 [facility] Comment on above: Performed By: #### L IPA, CMP, HSTROPN #### [facility] [address] [place] [address] Dr. Oh Trotter Sodium [Moles/Vol] 135 mmol/L Critically low 136-145 [facility] Comment on above: Performed By: #### L IPA, CMP, HSTROPN #### [facility] [address] [place] [address] Dr. Oh Trotter Urea nitrogen [Mass/Vol] 12.0 mg/dL Normal 7.0-18.0 [facility] Comment on above: Performed By: #### L IPA, CMP, HSTROPN #### [facility] [address] [place] [address] Dr. Oh Trotter Urea nitrogen/Creatinine [Mass ratio] 10.3 mg/mg Normal [facility] Comment on above: Performed By: #### L IPA, CMP, HSTROPN #### [facility] [address] [place] [address] Dr. Oh Trotter XR CHEST 1 Von [...] Date: 2021-10-16 13:09 Normal [facility] BNPon 09-15-2021 Natriuretic peptide B (Bld) [Mass/Vol] 9.0 pg/mL Normal <=450.0 [facility] Comment on above: Performed By: #### H STROPN, TSH, BNP, CMP #### [facility] [address] [place] [address] Dr. Oh Trotter CBC AUTO DIFFon 09-15-2021 BASO # 0.0 103/ul Normal 0.0-0.1 [facility] Comment on above: Performed By: #### L IPA, CMP, HSTROPN #### [facility] [address] [place] [address] Dr. Oh Trotter Basophils/100 WBC (Bld) 0.1 % Critically low 0.2-2.[address] [facility] Comment on above: Performed By: #### L IPA, CMP, HSTROPN #### [facility] [address] [place] [address] Dr. Oh Trotter EO # 0.1 103/ul Normal 0.0-0.[address] [facility] Comment on above: Performed By: #### L IPA, CMP, HSTROPN #### [facility] [address] [place] [address] Dr. Oh Trottre Eosinophils/100 WBC (Bld) 0.6 % Critically low 0.9-7.[address] [facility] Comment on above: Performed By: #### L IPA, CMP, HSTROPN #### [facility] [address] [place] [address] Dr. Oh Trotter Erythrocyte distribution width (RBC) [Ratio] 12.5 % Normal 11.0-15.0 [facility] Comment on above: Performed By: #### L IPA, CMP, HSTROPN #### [facility] [address] [place] [address] Dr. Oh Trotter Hematocrit (Bld) [Volume fraction] 48.3 % Normal 42.0-54.0 [facility] Comment on above: Performed By: #### L IPA, CMP, HSTROPN #### [facility] [address] [place] [address] Dr. Oh Trotter Hemoglobin (Bld) [Mass/Vol] 16.7 g/dL Normal 14.0-18.0 [facility] Comment on above: Performed By: #### L IPA, CMP, HSTROPN #### [facility] [address] [address] [address] Oh Trotter IG # 0.01 10e3/ul Normal 0.00-0.03 [facility] Comment on above: Performed By: #### L IPA, CMP, HSTROPN #### [facility] [address] [place] [address] Dr. Oh Trotter IG % 0.1 % Normal 0.0-0.5 [facility] Comment on above: Performed By: #### L IPA, CMP, HSTROPN #### [facility] [address] [place] [address] Dr. Oh Trotter LYMPH # 3.5 103/ul Normal 1.2-3.[address] [facility] Comment on above: Performed By: #### L IPA, CMP, HSTROPN #### [facility] [address] [place] [address] Dr. Oh Trotter Lymphocytes/100 WBC (Bld) 38.8 % Normal 20.5-60.0 [facility] Comment on above: Performed By: #### L IPA, CMP, HSTROPN #### [facility] [address] [place] [address] Dr. Oh Trotter MANUAL DIFF REQ NO Normal [facility] Comment on above: Performed By: #### L IPA, CMP, HSTROPN #### [facility] [address] [place] [address] Dr. Oh Trotter MCH (RBC) [Entitic mass] 29.3 pg Normal 25.9-34.0 [facility] Comment on above: Performed By: #### L IPA, CMP, HSTROPN #### [facility] [address] [place] [address] Dr. Oh Trotter MCHC (RBC) [Mass/Vol] 34.6 g/dL Normal 29.9-35.[address] [facility] Comment on above: Performed By: #### L IPA, CMP, HSTROPN #### [facility] [address] [place] [address] Dr. Oh Trotter MCV (RBC) [Entitic vol] 84.9 fL Normal 80.0-94.[address] [facility] Comment on above: Performed By: #### L IPA, CMP, HSTROPN #### [facility] [address] [place] [address] Dr. Oh Trotter MONO # 0.5 103/ul Normal 0.3-0.[address] [facility] Comment on above: Performed By: #### L IPA, CMP, HSTROPN #### [facility] [address] [place] [address] Dr. Oh Trotter Monocytes/100 WBC (Bld) 5.4 % Normal 1.7-12.[address] [facility] Comment on above: Performed By: #### L IPA, CMP, HSTROPN #### [facility] [address] [place] [address] Dr. Oh Trotter NEUT # 4.9 103/ul Normal 1.4-6.[address] [facility] Comment on above: Performed By: #### L IPA, CMP, HSTROPN #### [facility] [address] [place] [address] Dr. Oh Trotter Neutrophils/100 WBC (Bld) 55.0 % Normal 43.0-75.[address] [facility] Comment on above: Performed By: #### L IPA, CMP, HSTROPN #### [facility] [address] [place] [address] Dr. Oh Trotter Platelet mean volume (Bld) [Entitic vol] 9.7 fL Normal 9.5-13.[address] [facility] Comment on above: Performed By: #### L IPA, CMP, HSTROPN #### [facility] [address] [place] [address] Dr. Oh Trotter PLT 227 103/ul Normal 150-[address] [facility] Comment on above: Performed By: #### L IPA, CMP, HSTROPN #### [facility] [address] [place] [address] Dr. Oh Trotter RBC 5.69 106/ul Normal 4.70-6.[address] [facility] Comment on above: Performed By: #### L IPA, CMP, HSTROPN #### [facility] [address] [address] [address] Oh Trotter WBC 8.9 103/ul Normal 4.0-11.0 [facility] Comment on above: Performed By: #### L IPA, CMP, HSTROPN #### [facility] [address] [address] [address] Oh Trotter D-DIMERon 09-15-2021 D-DIMER 0.19 mg/L FEU Normal <=0.[address] [facility] Comment on above: Performed By: #### L IPA, CMP, HSTROPN #### [facility] [address] [address] [address] Oh Trotter D-DIMER COMMENTS SEE BELOW Normal [facility] Comment on above: Result Comment: Incr eases [...] L IPA, CMP, HSTROPN #### [facility] [address] [place] [address] Dr. Oh Trotter PROF 14(COMP METB)on 022 Albumin [Mass/Vol] 3.9 g/dL Normal 3.4-5.0 [facility] Comment on above: Performed By: #### H STROPN, TSH, BNP, CMP #### [facility] [address] [address] [address] Oh Trotter Albumin/Globulin [Mass ratio] 0.8 {ratio} Normal [facility] Comment on above: Performed By: #### H STROPN, TSH, BNP, CMP #### [facility] [address] [place] [address] Dr. Oh Trotter ALP [Catalytic activity/Vol] 73 U/L Normal 46-116 [facility] Comment on above: Performed By: #### H STROPN, TSH, BNP, CMP #### [facility] [address] [address] [address] Oh Trotter ALT [Catalytic activity/Vol] 48 U/L Normal 16-63 [facility] Comment on above: Performed By: #### H STROPN, TSH, BNP, CMP #### [facility] [address] [address] [address] Oh Trotter Anion gap [Moles/Vol] 14.9 mmol/L Normal [facility] Comment on above: Performed By: #### H STROPN, TSH, BNP, CMP #### [facility] [address] [address] [address] Oh Trotter AST [Catalytic activity/Vol] 22 U/L Normal 15-37 [facility] Comment on above: Performed By: #### H STROPN, TSH, BNP, CMP #### [facility] [address] [place] [address] Dr. Oh Trotter Bilirubin [Mass/Vol] 0.4 mg/dL Normal 0.2-1.0 [facility] Comment on above: Performed By: #### H STROPN, TSH, BNP, CMP #### [facility] [address] [place] [address] Dr. Oh Trotter Calcium [Mass/Vol] 9.2 mg/dL Normal 8.5-10.1 [facility] Comment on above: Performed By: #### H STROPN, TSH, BNP, CMP #### [facility] [address] [address] [address] Oh Trotter Chloride [Moles/Vol] 102 mmol/L Normal 98-107 [facility] Comment on above: Performed By: #### H STROPN, TSH, BNP, CMP #### [facility] [address] [place] [address] Dr. Oh Trotter CO2 [Moles/Vol] 23.7 mmol/L Normal 21.0-32.0 [facility] Comment on above: Performed By: #### H STROPN, TSH, BNP, CMP #### [facility] [address] [address] [address] Oh Trotter Creatinine [Mass/Vol] 1.14 mg/dL Normal 0.70-1.30 [facility] Comment on above: Performed By: #### H STROPN, TSH, BNP, CMP #### [facility] [address] [address] [address] Oh Trotter EGFR-AF NEPALESE >60 Normal >=60 [facility] Comment on above: Performed By: #### H STROPN, TSH, BNP, CMP #### [facility] [address] [address] [address] Oh Trotter EGFR-NON AF NEPALESE >60 Normal >=60 [facility] Comment on above: Performed By: #### H STROPN, TSH, BNP, CMP #### [facility] [address] [place] [address] Dr. Oh Trotter Globulin (S) [Mass/Vol] 4.7 g/dL Normal [facility] Comment on above: Performed By: #### H STROPN, TSH, BNP, CMP #### [facility] [address] [address] [address] Oh Trotter Glucose [Mass/Vol] 120 mg/dL Critically high 74-106 [facility] Comment on above: Performed By: #### H STROPN, TSH, BNP, CMP #### [facility] [address] [place] [address] Dr. Oh Trotter Potassium [Moles/Vol] 3.6 mmol/L Normal 3.5-5.1 [facility] Comment on above: Performed By: #### H STROPN, TSH, BNP, CMP #### [facility] [address] [place] [address] Dr. Oh Trotter Protein [Mass/Vol] 8.6 g/dL Critically high 6.4-8.2 [facility] Comment on above: Performed By: #### H STROPN, TSH, BNP, CMP #### [facility] [address] [place] [address] Dr. Oh Trotter Sodium [Moles/Vol] 137 mmol/L Normal 136-145 [facility] Comment on above: Performed By: #### H STROPN, TSH, BNP, CMP #### [facility] [address] [address] [address] Oh Trotter Urea nitrogen [Mass/Vol] 12.0 mg/dL Normal 7.0-18.0 [facility] Comment on above: Performed By: #### H STROPN, TSH, BNP, CMP #### [facility] [address] [place] [address] Dr. Oh Trotter Urea nitrogen/Creatinine [Mass ratio] 10.5 mg/mg Normal [facility] Comment on above: Performed By: #### H STROPN, TSH, BNP, CMP #### [facility] [address] [place] [address] Dr. Oh Trotter PROTIMEon 09-15-2021 INR Coag (PPP) [Relative time] 0.94 {INR} Normal [facility] Comment on above: Performed By: #### L IPA, CMP, HSTROPN #### [facility] [address] [place] [address] Dr. Oh Trotter INR GUIDELINES SEE BELOW Normal [facility] Comment on above: Result Comment: ADITHYA RED INR: 2.0 - 3.0 CONDITIONS NOT LISTED BELOW 2.5 - 3.5 FOR PROSTHETIC HEART VALVE REPLACEMENT 2.5 - 3.5 RECURRENT THROMBOSIS Performed By: #### L IPA, CMP, HSTROPN #### [facility] [address] [place] [address] Dr. Oh Trotter PT Coag (PPP) [Time] 10.2 s Normal 9.0-11.6 [facility] Comment on above: Performed By: #### L IPA, CMP, HSTROPN #### [facility] [address] [place] [address] Dr. Oh Trotter PTTon 09-15-2021 aPTT Coag (Bld) [Time] 26.6 s Normal 22.3-36.2 [facility] Comment on above: Performed By: #### L IPA, CMP, HSTROPN #### [facility] [address] [place] [address] Dr. Oh Trotter TROPONIN, HIGH SENSITIVITYon 09-15-2021 HSTROP 3.4 pg/mL Critically low 4.0-76.1 [facility] Comment on above: Result Comment: CUT- OFF POINTS HAVE BEEN ESTABLISHED BASED ON THE FOURTH UNIVERSAL DEFINITIONS OF MYOCARDIAL INFARCTION. THE UPPER REFERENCE LIMIT (URL) OF TROPONIN, DEFINED THE 99TH PERCENTILE OF cTnI DISTRIBUTION IN A REFERENCE POPULATION, HAS BEEN CONFIRMED THE DECISION THRESHOLD FOR RI DIAGNOSIS. Performed By: #### P TT, PT #### [facility] [address] [address] [address] Oh Trotter TSHon 09-15-2021 TSH 1.085 uIU/mL Normal 0.358-3.[address] [facility] Comment on above: Performed By: #### H STROPN, TSH, BNP, CMP #### [facility] [address] [address] [address] Oh Trotter TSH RANGE SEE BELOW Normal [facility] Comment on above: Result Comment: <0.3 4 UIU/ml HYPERTHYROID 0.34-5.60 UIU/ml EUTHYROID >5.60 UIU/ml HYPOTHYROID Performed By: #### H STROPN, TSH, BNP, CMP #### [facility] [address] [address] [address] Oh Trotter XR ABD FLAT UP_PA [...] OTTO POLANCO Date: 2021-09-15 19:35 Normal [facility] XR CHEST 1 Von 09-07-2021 XR [...] by: ELIZABETH TURNER Date: 2021-09-06 23:38 Normal [facility] Vital Signs Date Time Vital Sign Value Performing Clinician Radha casas 12-21-2023 15:26-0400 Blood Pressure Location Lucy BEY [facility] 12-21-2023 15:26-0400 Diastolic blood pressure 88 mm[Hg] Lucy [facility]Y [facility] 12-21-2023 15:26-0400 Heart rate 80 /min Lucy BEY [facility] 12-21-2023 15:26-0400 Respiratory rate 16 /min Lucy BEY [facility] 12-21-2023 15:26-0400 Systolic blood pressure 120 mm[Hg] Lucy BEY [facility] Encounters Encounter Date Encounter Type Care Provider Facility Start: 03-14-2024 End: 03-14-2024 ambulatory [facility] Start: 02-29-2024 ambulatory CAPO TAFOYA [facility] Start: 02-29-2024 End: 02-29-2024 ambulatory [facility] Start: 02-23-2024 End: 02-23-2024 ambulatory [facility] Start: 12-21-2023 End: 12-21-2023 ambulatory Lucy BEY Facility:[facility] Start: 12-21-2023 End: 12-21-2023 Patient encounter procedure Lucy BEY [facility] Start: 08-09-2022 End: 08-09-2022 ambulatory LEIGHANN [...] influenza virus vaccine, unspecified formulation Lucy BEY [facility] Payers Date Payer Category Payer Unknown [id number] 2.16.84 [id number] 1985 Unknown [id number] 2.16.84 [id number] 1987 Unknown [id number] 2.16.84 [id number] 1987 Unknown [id number] 2.16.84 [id number] 1987 Unknown [id number] 2.16.84 [id number] 1987 Unknown [id number] 2.16.84 [id number] 1987 Unknown [id number] 2.16.84 [id number] 1987 Unknown [id number] 2.16.84 [id number] 1987 Unknown [id number] 2.16.84 [id number] 1987 Unknown [id number] 2.16.84 [id number] 1987 Unknown [id number] 2.16.84 [id number] 1987 Unknown [id number] 2.16.84 [id number] 1987 Unknown [id number] 2.16.84 [id number] 1987 Unknown [id number] 2.16.8 [id number] 1959 Unknown [id number] Social History Date Type Detail Facility Start: 12-21-2023 Tobacco smoking status Heavy t obacco smoker (finding) [facility] Tobacco smoking status Never [facility] Sex Assigned At Male [facility] Functional Status Date Assessment Result Facility 12-21-2023 Functional Status N/A [facility] General Surgery [place] Progress note 03-14-2024 Note Date & Type [...] past 36 hour(s)). No follow-ups on file. [facility] Clinical Note 02-29-2024 Note Date & Type Note Facility 02-29-2024 Note Patient: Chuck arriaza Procedure Summary Date: 02/29/24 Room / Location: [facility] OPERATING ROOM 02 / [facility] Operating Room Anesthesia Start: 755 Anesthesia Stop: [...] per anesthesia protocol. No notable events documented. [facility] Procedure note 02-29-2024 Note Date & Type Note Facility 02-29-2024 Note Airway Date/Time: 02/29/2024 8:07 AM Urgency: elective General Information and Staff Patient location during procedure: OR Anesthesiologist: Capo Tafoya MD Resident/PLANS EXAMINER/CAA: Facundo Rudolph MD Performed: resident/PLANS EXAMINER/CAA Indications and Patient Condition Indications for airway [...] 1 Number of other approaches attempted: 0 [facility] Clinical Note 02-28-2024 Note Date & Type Note Facility 02-28-2024 Note Patient: Chuck arriaza Procedure Information Date/Time: 02/29/24729 Procedures: EXAM UNDER ANESTHESIA, HEMORRHOIDECTOMY, DEBRIDMENT OF ANAL FISSURE Location: [facility] OPERATING ROOM 02 / [facility] Operating Room Surgeons: Urbano Rodriguez MD Relevant Problems Cardio (+) Migraines (+) Elaax-Exdzihgmy-Fvmph syndrome GI (+) GERD (gastroesophageal reflux disease) [...] Depression GERD (gastroesophageal reflux disease) Morbid Obesity Qwcvv-Kyupmbkni-Stlkp syndrome, treated with ablation as teenager, without [...] with attending and resident. 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 Do not wear perfume, make-up, nail malay, or lotions on the day of your [...] need to make any changes, please call [phone]. Notify your surgeon if you develop any illness such as a cold, cough, fever, sore throat or vomiting between now and your surgery. Thank you for entrusting us with your care. [facility] Surgical Services Team [facility] Progress note 02-23-2024 Note Date & Type [...] past 36 hour(s)). No follow-ups on file. [facility] Clinical Note 06-24-2022 Note Date & Type [...] CC: Leighann Soriano CNP [facility] Evaluation + Plan note Note Date & Type Note Facility Evaluation + Plan note No data available for this section [facility] Hospital Discharge instructions Note Date & Type Note Facility Hospital Discharge instructions No data available for this section [facility] Progress note Note Date & Type Note Facility Progress note No data available for this section [facility] Summary Purpose Family History No Family [...] section and content) DATE CREATED AUTHOR 08/11/2022 [facility] DATE CREATED AUTHOR AUTHOR'S ORGANIZ ATION 12/27/2023 [facility] DATE CREATED AUTHOR AUTHOR'S ORGANIZ ATION 03/16/2024 [facility] Patient Care team informatio n (unrecognized section and content) Personnel Name: LEIGHANN SORIANO CNP Address: Address: [address] [place], [place] [address] FOR RECORDS PERTAINING TO PATIENTS [...] BE BASED ON THE PRIMARY CLINICAL RECORDS. [employer] [facility]. provides no warranty or guarantee of the accuracy or completeness of information in this document.
[2025-01-18 19:08] VITALS: BP 128/94; PULSE 62; TEMP 36.4; O2SAT 98; BMI 44.8
--- NOTE | 2025-01-18 23:21 | ED.GENADUL1 ---
HPI HPI - General Adult General Chief complaint: Dizziness Stated complaint: LIGHTHEADED, HIGH BLOOD SUGAR Source: patient Mode of arrival: Wheelchair Limitations: no limitations Related Data Home Medications ?Medication ?Instructions ?Recorded ?Confirmed No Known Home Medications 01/17/25 01/17/25 Allergies Allergy/AdvReac Type Severity Reaction Status Date / Time erythromycin base Allergy Intermediate Rash Verified 07/15/24 10:48 Penicillins Allergy Intermediate Rash Verified 07/15/24 10:48 Opioid HPI Opioid Management Most Recent Opioid Data: Last Pain Scale 7 01/17/25, 15:50 Last MAR Pain Assessment 01/17/25, 15:50 Ur Phencyclidine Scrn, (NEGATIVE) Negative 01/17/25, 13:43 PFSH PFSH Social History Smoking status: Current every day smoker Little interest or pleasure in doing things: not at all Feeling down, depressed, or hopeless: not at all Exam Constitutional Vital Signs, click to edit/add: Last Vital Signs Temp 97.6 F 01/18/25 19:08 Pulse 62 01/18/25 19:08 Resp 18 01/18/25 19:08 BP 128/94 H 01/18/25 19:08 Pulse Ox 98 01/18/25 19:08 O2 Del Method Room Air 01/18/25 19:08 Course Vital Signs Vital signs: Vital Signs Temperature 97.6 F 01/18/25 19:08 Pulse Rate 62 01/18/25 19:08 Respiratory Rate 18 01/18/25 19:08 Blood Pressure 128/94 H 01/18/25 19:08 Pulse Oximetry 98 01/18/25 19:08 Oxygen Delivery Method Room Air 01/18/25 19:08 Temperature 97.6 F 01/18/25 19:08 Pulse Rate 62 01/18/25 19:08 Respiratory Rate 18 01/18/25 19:08 Blood Pressure 128/94 H 01/18/25 19:08 Pulse Oximetry 98 01/18/25 19:08 Oxygen Delivery Method Room Air 01/18/25 19:08 Medical Decision Making MDM Narrative Medical decision making narrative: Patient left waiting room before I was able to see him. Left without being seen by ED provider. Lab Data Labs: Lab Results 01/18/25 Range/Units 19:15 POC Glucose 156 H (74-106) mg/dL Discharge Plan Discharge Patient Disposition: Left Without Being Seen Discharge Date/Time: 01/18/25 19:55
== END 2025-01-18 19:55 | disposition left against medical advice (07) ==
PROVIDERS: Emergency Provider Student in an Organized Health Care Education/Training Program; PCP Nurse Practitioner Family
DX: Z53.21 Procedure and treatment not carried out due to patient leaving prior to being seen by health care provider (principal)
CPT/HCPCS: 36415; 99281

== ENCOUNTER 2025-01-28 12:15 | Emergency (ER) | payer SELFPAY ==
--- OUTSIDE RECORDS SUMMARY | 2024-03-14 15:17 | XMS_ITS ---
Author Name Auto Generated Organization [facility] Care Team Providers Care Newspaper Peddler Name Role Phone URBANO RODRIGUEZ Admitting Unavailable URBANO RODRIGUEZ Attending Unavailable URBANO RODRIGUEZ Attending Unavailable URBANO RODRIGUEZ Attending Unavailable CAPO TAFOYA Referring Unavailable PROBLEMS DATE TYPE CONDITION / CODE ATTENDING STATUS [facility] 03/14/2024 Admitting Diagnosis Other acute postprocedural pain / G89.18(ICD-10) URBANO RODRIGUEZ [facility] 02/23/2024 Admitting Diagnosis Other specified diseases of anus and rectum / K62.89(ICD-10) URBANO RODRIGUEZ [facility] 02/29/2024 Admitting Diagnosis Anal fissure, unspecified / K60.2(ICD-10) URBANO RODRIGUEZ [facility] PROCEDURES No Procedure Records Found RESULTS PROGRESS Observed: 03/14/2024 2:15 PM Status: COMPLETED Source: [facility] Subjective Patient ID: Chuck Packer is a 38 y.o. male who presents for Post-op (Chuck is here today for post op visit: hemorrhoids, s/p 02/29/24 EUA with hemorrhoidectomy and anal fissure debridement). HPI 38 years old morbid obesity white male is status post hemorrhoidectomy and debridement of anal fissure on February 29, 2024. His anal pain is significantly improved. He still has anal pain during bowel movement. Review of Systems Constitutional: Negative. Respiratory: Negative. Gastrointestinal: Positive for anal bleeding, blood in stool, constipation and rectal pain. Negative for abdominal pain. Genitourinary: Negative. Musculoskeletal: Negative. Skin: Negative. Neurological: Negative. Hematological: Negative. Objective Visit Vitals BP 128/89 (BP Location: Right arm, Patient Position: Sitting) Pulse 91 Temp 36.6 ???C (97.8 ???F) (Oral) Physical Exam Constitutional: Appearance: He is obese. HENT: Head: Atraumatic. Cardiovascular: Rate and Rhythm: Normal rate. Abdominal: General: Abdomen is flat. Palpations: Abdomen is soft. Genitourinary: Comments: Without perianal skin erythema, induration, discharge. Musculoskeletal: Cervical back: Neck supple. Neurological: Mental Status: He is alert and oriented to person, place, and time. Final Diagnosis A. Anal fissure, debridement: - Hyperplastic squamous mucosa and dilated congested submucosal veins. B. Hemorrhoids, internal and external, hemorrhoidectomy: - Internal and external hemorrhoids with acutely inflamed reactive surface epithelium. at 1124 Assessment/Plan Internal and external hemorrhoid Anal fissure Postoperative visit Sitz bath MiraLAX No diagnosis found. No orders of the defined types were placed in this encounter. No results found for this or any previous visit (from the past 36 hour(s)). No follow-ups on file. OFFICE VISIT Observed: 03/14/2024 2:15 PM Status: COMPLETED Source: [facility] [id number] Chuck Packer [birth year] M Date Provider Department Center 03/14/2024 454-URBANO RODRIGUEZ [facility] SURG Second Fl No family history on file Level of Service:49267 NM POSTOP FOLLOW UP VISIT RELATED TO ORIGINAL PX Reason for Visit and Comments: Post-op [483] - Chuck is here today for post op visit: hemorrhoids, s/p 02/29/24 EUA with hemorrhoidectomy and anal fissure debridement ANES Observed: 02/29/2024 9:42 AM Status: COMPLETED Source: [facility] Patient: Chuck Millis Procedure Summary Date: 02/29/24 Room / Location: [facility] OPERATING ROOM 02 / [facility] Operating Room Anesthesia Start: 0756 Anesthesia Stop: 0856 Procedures: EXAM UNDER ANESTHESIA, (Rectum) HEMORRHOIDECTOMY, DEBRIDMENT OF ANAL FISSURE (Rectum) Diagnosis: Anal pain (Anal pain [K62.89]) Surgeons: Urbano Rodriguez MD Responsible Provider: Capo Tafoya MD Anesthesia Type: general ASA Status: 3 Anesthesia Type: general Vitals Value Taken Time BP 144/83 02/29/24924 Temp 36 02/29/24941 Pulse 102 02/29/24924 Resp 18 02/29/24924 SpO2 99 % 02/29/24924 Anesthesia Post Evaluation Patient location during evaluation: PACU Patient participation: complete - patient participated Level of consciousness: awake and alert Pain score: 3 Pain management: adequate Airway patency: patent Cardiovascular status: acceptable Respiratory status: acceptable Hydration status: acceptable Patient is hemodynamically stable and is able to be discharged from PACU per anesthesia protocol. No notable events documented. HISTOLOGY - TISSUE EXAM Collected: 02/29/2024 8:27 AM Status: UNK Source: [facility] Order Comment: Pre-op diagno sis: Anal pain [K62.89] TYPE CODE TESTS RESULT OUT OF RANGE REFERENCE UNITS PATHOLOGY 1499 LAB AP CASE REPORT Result Comment: Surgical Pat hology Case: [id number] Authorizing Provider: Urbano Rodriguez MD Collected: 02/29/2024826 Ordering Location: [facility] Main Operating Room Received: 02/29/2024 1058 Pathologist: Dyana Villasenor MD Specimens: A) - Anus, ANAL FISSURE B) - Anus, INTERNAL AND EXTERNAL HEMORRHOID PATHOLOGY 34 LAB AP REPORT FINAL DIAGNOSIS NARRATIVE Result Comment: A. Anal fiss ure, debridement: - Hyperplastic squamous mucosa and dilated congested submucosal veins. B. Hemorrhoids, internal and external, hemorrhoidectomy: - Internal and external hemorrhoids with acutely inflamed reactive surface epithelium. OLOGY 29 LAB AP CLINICAL INFORMATION Result Comment: Post-Op Diag noses K62.89 - Anal pain [ICD-10-CM] PATHOLOGY [id number] LAB AP GROSS DESCRIPTION A. Anus. Result Comment: Received in formalin labeled Chuck Packer, ANAL FISSURE is a pale cheung ellipse of epithelial lined tissue, 1.3 x 0.5 x 0.6 cm. The epithelial surface is wrinkled and markedly distorted with surgical crush artifact. The non- epithelial surface is inked and the specimen is serially sectioned. The cut surfaces are dark rivers-brown rubbery and uniform. A definitive tract or cavity is not identified. The specimen is entirely submitted in a single cassette. [place], Pathologists' AssistantB. Anus. Received in formalin labeled Chuck Packer, INTERNAL AND EXTERNAL HEMORRHOID are four dome-shaped wedges of epithelial lined tissue, up to 2.5 x 1.1 x 0.8 cm, in aggregate, 4.5 x 1 x 1 cm. The epithelial surfaces range from dark rivers and glistening to pale rivers, dull, and wrinkled, consistent with both mucosa and skin. The cut surfaces are somewhat congested with focal prominent vessels. Director Of Student Life sections are submitted in a single cassette. [place] Pathologists' Vessel Slag Worker PATHOLOGY 32 LAB AP MICROSCOPIC DESCRIPTION Microscopic examination performed. Performed By: #### [id number] # ### [facility] ([facility]) [address] [place] [address] PROCEDURE Observed: 02/29/2024 8:17 AM Status: COMPLETED Source: [facility] Airway Date/Time: 02/29/2024 8:07 AM Urgency: elective General Information and Staff Patient location during procedure: OR Anesthesiologist: Capo Tafoya MD Resident/PROFESSOR OF RHETORIC/CAA: Facundo Rudolph MD Performed: resident/PROFESSOR OF RHETORIC/CAA Indications and Patient Condition Indications for airway [...] 1 Number of other approaches attempted: 0 OPNOTE Observed: 02/29/2024 7:55 AM Status: COMPLETED Source: [facility] EXAM UNDER ANESTHESIA,, HEMO RRHOIDECTOMY, DEBRIDMENT OF ANAL FISSURE Operative Note Date: 02/29/2024 Location: [facility] OR Name: Chuck Packer, : 1985, Diagnosis Pre-op Diagnosis * Anal pain [K62.89] Post-op Diagnosis * Anal pain [K62.89] Anal fissure External and internal hemorrhoid Procedures HEMORRHOIDECTOMY, DEBRIDMENT OF ANAL FISSURE EXAM UNDER ANESTHESIA, [address] - NM ANRCT XM SURG REQ ANES GENERAL SPI/EDRL DX Anal sphincter dilation Surgeons Primary: Urbano Rodriguez MD Resident - Assisting: Tatiana Cline MD Procedure Summary Anesthesia: General ASA: III Estimated Blood Loss: Minimal Total IV Fluids: 500 mL Drains: * None in log * Specimens ID Source Type Tests Collected By Collected At Frozen? Priority Lab ID A Anus Tissue HISTOLOGY - TISSUE EXAM Urbano Rodriguez MD 02/29/24826 No Description: ANAL FISSURE Comment: PLACED IN FORMALIN B Anus Tissue HISTOLOGY - TISSUE EXAM Urbano Rodriguez MD 02/29/24829 No Description: INTERNAL AND EXTERNAL HEMORRHOID Comment: PLACED IN FORMALIN Staff: Atomizer Assembler: Shannan Guy RN Scrub Person: Dianelys Watson COORDINATOR VOLUNTEER SERVICES [place] Scrub: Minna Mcclendon RN Indications: Chuck [...] - hemodynamically stable. Condition: stable Urbano Rodriguez Observed: 02/29/2024 7:53 AM Status: COMPLETED Source: [facility] H&P reviewed. The patient wa s examined and there are no changes to the H&P. POCT GLUCOSE METER UNSOLICIT ED RESULTS Collected: 02/29/2024 6:32 AM Status: UNK Source: [facility] Order Comment: Waived Testin g in the ED is performed under the ED CLIA certificate #[id number]. TYPE CODE TESTS RESULT OUT OF RANGE REFERENCE UNITS LAB 885 POCT GLUCOSE 134 High 70-105 mg/dL Result Comment: Performed By: #### [id number] #### [facility] ([facility] [address] [place] [address] ANEMarga Observed: 02/28/2024 6:28 PM Status: COMPLETED Source: [facility] Patient: Chuck Packer Procedure Information Date/Time: 02/29/24 0730 Procedures: EXAM UNDER ANESTHESIA, HEMORRHOIDECTOMY, DEBRIDMENT OF ANAL FISSURE Location: [facility] OPERATING ROOM 02 / [facility] Operating Room Surgeons: Urbano Rodriguez MD Relevant Problems Cardio (+) Migraines (+) Jqqye-Relymhtry-Vstxa syndrome GI (+) GERD (gastroesophageal reflux disease) [...] Depression GERD (gastroesophageal reflux disease) Morbid Obesity Ecybl-Hecnprywp-Vldmi syndrome, treated with ablation as teenager, without [...] with attending and resident. Additional Equipment Requests [id number] Observed: 02/24/2024 12:03 PM Status: COMPLETED Source: [facility] Medications to take AM day o f procedure with sips water only: DEPAKOTE PROZAC HYDROXYZINE PROTONIX Medication Hold instructions: NSAIDs (Motrin,Aleve, Advil, Ibuprofen, Naproxen and Aspirin): 5-7 days prior to procedure Vitamins/Supplements: 5-7 days prior to procedure IF YOU ARE GOING HOME AFTER YOUR SURGERY OR PROCEDURE, FOR YOUR SAFETY, YOUR SURGERY WILL BE CANCELLED IF BOTH OF THE FOLLOWING ARE NOT AVAILABLE: An adult automobile drivers over the age of 18, that can [...] lenses. Do not wear perfume, make-up, nail nepali, or lotions on the day of your [...] need to make any changes, please call [phone]. Notify your surgeon if you develop any illness such as a cold, cough, fever, sore throat or vomiting between now and your surgery. Thank you for entrusting us with your care. [facility] Surgical Services Team CONSULT Observed: 02/23/2024 2:00 PM Status: COMPLETED Source: [facility] [id number] Chuck Packer [birth year]21 M Date Provider Department Center 02/23/2024 URBANO SONG [facility] SURG Second Fl No family history on file Level of Service:37545 NM OFFICE/OUTPATIENT NEW LOW MDM 30 MINUTES Reason for Visit and Comments: Consult [484] - Chuck is here today for consult: Rectal pain and Bleeding PROGRESS Observed: 02/23/2024 2:00 PM Status: COMPLETED Source: [facility] Subjective Patient ID: Chuck Packer is a [...] past 36 hour(s)). No follow-ups on file. HP Observed: 02/23/2024 2:00 PM Status: COMPLETED Source: [facility] Subjective Patient ID: Chuck Packer is a [...] past 36 hour(s)). No follow-ups on file. ALLERGIES DATE TYPE / CODE NAME / CODE REACTION SEVERITY SOURCE 02/23/2024 DRUG INGREDI/[id number] 3(SNOMED CT) ERYTHROMYCIN BASE [facility] 02/23/2024 Drug Class/[id number]( SNOMED CT) PENICILLINS [facility] 02/23/2024 DRUG/[id number](S NOMED CT) ERYTHROMYCIN Rash [facility] ENCOUNTERS ADMIT/DISCHARGE ACCOUNT NUMBER ADMITTING ENCOUNTER CLASS LOCATION SOURCE 03/14/2024/03/14/20 [id number] Ambulatory Building:[facility] 02/29/2024 [id number] Ambulatory Building:[facility] 02/29/2024/02/29/20 [id number] URBANO RODRIGUEZ Ambulatory Building:[facility] oom: ORBed: 357 [facility] 02/23/2024/02/23/20 [id number] Ambulatory Building:[facility] PAYERS ENCOUNTER GUARANTOR PAYER SUBSCRIBER SOURCE 03/14/2024 Primary Insuranc e:[employer] MEDICAIDPolicy Number: [id number] Date:2020-04-02 CHUCK MILLISDOB: [id number], [place] [address] [facility] 02/29/2024 Primary Insuranc e:[place] MEDICAIDPolicy Number: [id number] Date:2020-04-02 CHUKC MILLISDOB: [id number], [place] [address] [facility] 02/29/2024 Primary Insuranc e:[place] MEDICAIDPolicy Number: [id number] Date:2020-04-02 CHUCK MILLISDOB: [id number], [place] [address] [facility] 02/23/2024 Primary Insuranc e:[place] MEDICAIDPolicy Number: [id number] Date:2020-04-02 CHUCK MILLISDOB: [id number], [place] [address] [facility]
[2025-01-28] VITALS (16 sets, daily range): BP systolic 109–142; BP diastolic 75–92; PULSE 69–100; TEMP 36.6; O2SAT 93–99; BMI 39.2
--- NOTE | 2025-01-28 12:30 | ECG_ITS ---
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
--- NOTE | 2025-01-28 12:31 | XR_ITS ---
The [place] [id number] Patient Name: CHUCK PACKER MRN: [id number] date: 1985 Sex: M Assigned Patient Location: ED.MAIN Current Patient Location: ED.MAIN Accession/Order Number: [id number] Exam Date: 01/28/2025 13:33 Report Date: 01/28/2025 14:07 At the request of: LEYDA BARRIENTOS MD Procedure: XR chest 1V XR chest 1V 01/28/2025 12:31 PM SIGNS AND SYMPTOMS: ^CP, epigastric pain ^Y PROTOCOL: Frontal radiograph chest COMPARISON: 01/17/2025 FINDINGS: The trachea is midline. The heart and mediastinal structures are within normal limits. The lung parenchyma is clear. The bony thorax is intact. XR/XR chest 1V IMPRESSION: No acute cardiopulmonary pathology. Impression dictated by: Antione Enamorado M.D. 01/28/2025 2:07 PM Dictation Location: [place] [address] Electronically authenticated by: [id number] Y Date: 01/28/2025 14:07
--- NOTE | 2025-01-28 12:31 | ED.GENADUL1 ---
HPI HPI - General Adult General Chief complaint: Chest Pain Stated complaint: CHEST PAIN Time Seen by Provider: 01/28/25 12:20 Source: patient Mode of arrival: Wheelchair Limitations: no limitations History of Present Illness HPI narrative: 39-year-old male presents for chest pain. It is in a very localized area on the right side of the lower sternum. He states it started when he was getting into the bathtub to take a bath to get ready for work and it started about 20 minutes ago and it has been continuous. There was no injury. He does not have any back pain and has not had a fever or cough. He states he supposed to be on anxiety medicine but has not been on it for 6 months because he does not have insurance. Related Data Home Medications ?Medication ?Instructions ?Recorded ?Confirmed No Known Home Medications 01/17/25 01/28/25 Allergies Allergy/AdvReac Type Severity Reaction Status Date / Time erythromycin base Allergy Intermediate Rash Verified 01/28/25 12:19 Penicillins Allergy Intermediate Rash Verified 01/28/25 12:19 Opioid HPI Opioid Management Most Recent Opioid Data: Last Pain Scale 10 Today, 12:35 Ur Phencyclidine Scrn, (NEGATIVE) Negative 01/17/25, 13:43 Review of Systems ROS Narrative A ten point review of systems is negative except as noted above. PFSH PFSH Social History Smoking status: Current every day smoker Little interest or pleasure in doing things: not at all Feeling down, depressed, or hopeless: not at all Exam Narrative Exam Narrative: Nurses note and vital signs reviewed and patient is not hypoxic. General:The patient appears uncomfortable and he is crying. Skin:Warm, dry, no pallor noted.There is no rash noted. Head:Normocephalic, atraumatic Eye: Normal conjunctiva, no drainage Ears, Nose, Mouth, and Throat: oral mucosa is moist. Nares patent. Cardiovascular:Regular Rate and Rhythm, not tachycardic Respiratory:Patient is in no distress, no accessory muscle use, lungs are clear to auscultation, no wheezing, rales or rhonchi. Breath sounds are equal bilaterally Back:non-tender GI:Normal bowel sounds, no tenderness to palpation, no masses appreciated.No rebound, guarding, or rigidity noted. Musculoskeletal: The patient has no evidence of calf tenderness, no pitting edema, symmetrical pulses noted bilaterally Neurological:A&O, normal speech Psychiatric:Cooperative, tearful Constitutional Vital Signs, click to edit/add: Last Vital Signs Temp 98 F 01/28/25 12:20 Pulse 69 01/28/25 14:10 Resp 19 01/28/25 14:10 BP 109/75 01/28/25 14:00 Pulse Ox 96 01/28/25 14:10 O2 Del Method Room Air 01/28/25 12:37 Course Vital Signs Vital signs: Vital Signs Temperature 98 F 01/28/25 12:20 Pulse Rate 91 H 01/28/25 12:20 Respiratory Rate 20 01/28/25 12:20 Blood Pressure 142/92 H 01/28/25 12:20 Pulse Oximetry 98 01/28/25 12:20 Oxygen Delivery Method Room Air 01/28/25 12:20 Temperature 98 F 01/28/25 12:20 Pulse Rate 69 01/28/25 14:10 Respiratory Rate 19 01/28/25 14:10 Blood Pressure 109/75 01/28/25 14:00 Pulse Oximetry 96 01/28/25 14:10 Oxygen Delivery Method Room Air 01/28/25 12:37 Medical Decision Making MDM Narrative Medical decision making narrative: His workup is negative including troponin and D-dimer. He was given IV Valium and looks and feels much better. He is able to be discharged home and was given a work note for today. Treatment diagnosis and follow-up were discussed with the patient. Differential Diagnosis Differential Diagnosis: Pneumothorax, PE, myocardial infarction, anxiety, chest wall pain Lab Data Lab results reviewed: Yes I reviewed the patient's lab results Labs: Lab Results 01/28/25 Range/Units 12:32 WBC 7.7 (4.0-11.0) 10^3/uL RBC 5.16 (4.70-6.10) 10^6/uL Hgb 15.8 (14.0-18.0) g/dL Hct 43.3 (42.0-54.0) % MCV 83.9 (80.0-94.0) fL MCH 30.6 (25.9-34.0) pg MCHC 36.5 H (29.9-35.2) g/dL RDW 12.0 (11.0-15.0) % Plt Count 225 (150-450) 10^3/uL MPV 9.8 (9.5-13.5) fL Neut % (Auto) 60.1 (43.0-75.0) % Lymph % (Auto) 32.8 (20.5-60.0) % [place] % (Auto) 6.1 (1.7-12.0) % Eos % (Auto) 0.4 L (0.9-7.0) % Baso % (Auto) 0.3 (0.2-2.0) % Neut # (Auto) 4.6 (1.4-6.5) 10^3/uL Lymph # (Auto) 2.5 (1.2-3.8) 10^3/uL [place] # (Auto) 0.5 (0.3-0.8) 10^3/uL Eos # (Auto) 0.0 (0.0-0.7) 10^3/uL Baso # (Auto) 0.0 (0.0-0.1) 10^3/uL Abs Immat Gran (auto) 0.02 (0.00-0.03) 10^3/uL Imm/Tot Granulo (auto) 0.3 (0.0-0.5) % D-Dimer <0.19 (<=0.59) mg/L FEU Sodium 139 (136-145) mmol/L Potassium 3.9 (3.5-5.1) mmol/L Chloride 103 (98-107) mmol/L Carbon Dioxide 24.0 (21.0-32.0) mmol/L Anion Gap 15.9 BUN 13.0 (7.0-18.0) mg/dL Creatinine 0.94 (0.70-1.30) mg/dL Est GFR ( Amer) >60 (>=60 mL/min/1.73m^2) Est GFR (Non-Af Amer) >60 (>=60 mL/min/1.73m^2) BUN/Creatinine Ratio 13.8 Glucose 169 H (74-106) mg/dL Calcium 9.1 (8.5-10.1) mg/dL Troponin I High Sens 4.9 (4.0-76.1) pg/mL Imaging Data Chest x-ray: Radiologist's impression: ITS Impressions Chest X-Ray 01/28/25 12:31 IMPRESSION: No acute cardiopulmonary pathology. Impression dictated by: Antione Enamorado M.D. 01/28/2025 2:07 PM Dictation Location: [place] [address] Electronically authenticated by: [id number] Y Date: 01/28/2025 14:07 ECG Data Attestation: I personally reviewed and interpreted this ECG as follows: (EKG on my interpretation shows sinus rhythm with rate of 91 and no acute change) Discharge Plan Discharge Chief Complaint: Chest Pain Clinical Impression: Chest pain, Anxiety Patient Disposition: Home, Self-Care Time of Disposition Decision: 14:20 Condition: Good Mode of Transportation: Private Vehicle Prescriptions / Home Meds: No Action No Known Home Medications Print Language: Slovenian Instructions: Chest Pain (ED), Anxiety (ED) Referrals: MERNA SORIANO [Primary Care Provider, Family Practice] - 1 week
[2025-01-28 12:39] LABS: Hematocrit 43.3 % (42.0-54.0); Hemoglobin 15.8 g/dL (14.0-18.0); Immature Granulocytes Abs Auto 0.02 10^3/uL (0.00-0.03); Immature Granulocytes Pct Auto 0.3 % (0.0-0.5); Lymphocytes Absolute Auto 2.5 10^3/uL (1.2-3.8); Mean Corpuscular HGB Conc 36.5 g/dL (29.9-35.2); Mean Corpuscular Hemoglobin 30.6 pg (25.9-34.0); Mean Corpuscular Volume 83.9 fL (80.0-94.0); Platelet Count 225 10^3/uL (150-450); Red Blood Count 5.16 10^6/uL (4.70-6.10); White Blood Count 7.7 10^3/uL (4.0-11.0)
[2025-01-28] MEDS: DIAZEPAM 10 MG/2 ML SYRINGE 5 MG IV (12:48)
[2025-01-28 13:01] LABS: Anion Gap 15.9; Blood Urea Nitrogen 13.0 mg/dL (7.0-18.0); Calcium 9.1 mg/dL (8.5-10.1); Carbon Dioxide 24.0 mmol/L (21.0-32.0); Chloride 103 mmol/L (98-107); Estimated GFR (African America >60 (>=60 mL/min/1.73m^2); Estimated GFR (Non-African Ame >60 (>=60 mL/min/1.73m^2); Glucose 169 mg/dL (74-106); Potassium 3.9 mmol/L (3.5-5.1); Sodium 139 mmol/L (136-145)
== END 2025-01-28 14:29 | disposition home or self-care (01) ==
PROVIDERS: Emergency Provider Emergency Medicine; PCP Nurse Practitioner Family
DX: R07.9 Chest pain, unspecified (principal); F41.9 Anxiety disorder, unspecified; F17.200 Nicotine dependence, unspecified, uncomplicated
CPT/HCPCS: 36415; 71045; 80048; 84484; 85025; 85378; 93005; 96374; 99285; J3360

== ENCOUNTER 2025-03-17 12:19 | Emergency (ER) | payer SELFPAY ==
--- OUTSIDE RECORDS SUMMARY | 2024-08-08 08:30 | XMS_ITS ---
Author Organization The [facility] in [place] Address [address] [place] [address] Care Team Providers Care Raw Sampler Name Role Phone Leighann Mahoney Primary Care Provider REASON FOR VISIT STILL SICK Encounters Encounter Location Date Provider Diagnosis [facility] [address] [facility] [address] 08/08/2024 Leighann Mahoney Plan Of Treatment No Information Progress Notes * Cassidy PACKERMattyOB:1985 (39 yo M)Acc No.[id number]:08/08/2024 UNLOCKED PROGRESS NOTE Progress Note Patient: Tristin CARL :?Leighann Mahoney ([facility]), CNPDOB:1985 ???Age:38 Y???Sex:MaleDate:08/08/2024Phone:[phone]:[address] [place] [address], [address], [place], [id number] Subjective: * Chief Complaints: * 1 . STILL SICK. * Medical History: Objective: * Vitals: Assessment: Plan: * Treatment: * * Electronic signature of Leighann Mahoney NP, FORK TRUCK OPERATOR.COLLEGE TEACHER.[id number] on 03/17/2025 at 03:09 PM ESTSign off status: PendingVisit Status:?OFF CANC (OFFICE CANCEL) * Provider: Phan RILEY), COLLEGE TEACHER Date: 0 08/08/2024 Generated for Printing/Faxing/eTransmitting on:?03/17/2025 03:09 PM EST
[2025-03-17] VITALS (11 sets, daily range): BP systolic 131–158; BP diastolic 87–101; PULSE 87–116; TEMP 36.6–36.7; O2SAT 96–98; BMI 38.6
--- NOTE | 2025-03-17 12:39 | XR_ITS ---
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 Headache. Confusion. COMPARISON: 01/28/2025 FINDINGS: SUPPORT DEVICES: None POSTSURGICAL CHANGES: None HEART: Within normal limits PULMONARY JERRY: Within normal limits MEDIASTINUM: Unremarkable LUNGS AND PLEURA: No acute lung process, pleural effusion or pneumothorax identified. BONY STRUCTURES: Intact ADDITIONAL FINDINGS None XR/XR chest 2V IMPRESSION: No acute process. Impression dictated by: Jil Chavez M.D. 03/17/2025 1:46 PM Dictation Location: [place] [address] Electronically authenticated by: [id number] Y Date: 03/17/2025 13:46
--- NOTE | 2025-03-17 12:39 | ECG_ITS ---
[facility] Test Date: 2025-03-17 Pat Name: CHUCK PACKER Department: Room: - Gender: Male [employer]: : 1985 Requested By: [id number] Order Number: [id number] Reading MD: JITENDRA FOOTE M.D. Measurements Intervals Hustler Rate: 89 P: 44 MS: 138 QRS: 26 QRSD: 80 T: 46 QT: 334 QTc: 381 Interpretive Statements 1100 Sinus rhythm [address] elevation [address] & Twave abnormality 9130 borderline ECG Compared to ECG 01/28/2025 12:24:48 No significant changes Electronically Signed On 03-17-2025 12:57:47 EST by JITENDRA FOOTE M.D.
--- NOTE | 2025-03-17 12:39 | CT_ITS ---
The [address] [address] Patient Name: CHUCK PACKER MRN: [id number] date: 1985 Sex: M Assigned Patient Location: ER Current Patient Location: ER Accession/Order Number: [id number] Exam Date: 03/17/2025 13:00 Report Date: 03/17/2025 13:45 At the request of: JIL LEE MD Procedure: CT head/brain wo con Unenhanced head CT TECHNIQUE: Contiguous axial imaging of the head. The CT exam was performed using one or more the following dose reduction techniques: Automated exposure control, adjustment of the MA and/or Kv according to patient size, or use of the iterative reconstruction technique. COMPARISON: 10/29/2022 HISTORY: Dizziness. Headache. Confusion. VENTRICLES: Within normal limits ATROPHY: None BRAIN PARENCHYMA: Adequate cheung-white matter differentiation identified. HEMORRHAGE: None HERNIATION: No mass effect or herniation INFARCTION: No recent vascular distribution infarction is seen. EXTRA-AXIAL FLUID COLLECTIONS None MIDBRAIN: Unremarkable CAM: Unremarkable MEDULLA: Unremarkable SINUSES: Unremarkable ORBITS: Grossly unremarkable MASTOIDS: Unremarkable BONY STRUCTURES Intact ADDITIONAL FINDINGS: CT/CT head/brain wo con IMPRESSION: No acute findings. Impression dictated by: Jil Chavez M.D. 03/17/2025 1:45 PM [facility]ictation [facility] Electronically authenticated by: [id number] Y Date: 03/17/2025 13:45
--- NOTE | 2025-03-17 12:42 | ED_ITS ---
HPI HPI - General Adult General Chief complaint: Chest Pain Stated complaint: DIZZY Time Seen by Provider: 03/17/25 12:37 Source: patient Mode of arrival: Wheelchair Limitations: no limitations History of Present Illness HPI narrative: Patient is a 39-year-old male who is presenting to the ER with chief complaint of lightheaded, dizziness, headache. Patient intermittently agitated. Patient did not go to work today. Patient says that he is going to lose his job because he did not go to work today. Patient has no chest pain or shortness of breath. No abdominal pain nausea or vomiting. Patient also states has been having intermittent vertigo. Patient denies trauma. No hearing or change in vision. Unless otherwise stated in this report or unable to obtain because of the patie nt's clinical or mental status as evidenced by medical record, the patient's positive and negative responses for review of systems for constitutional, eyes, ENT, cardiovascular, respiratory, gastrointestinal, neurological, , musculoskeletal, and integument systems and related systems to the presenting problem are either stated in the history of present illness or were not pertinent or were negative for the symptoms and/or complaints related to the presenting medical problem. Nurses note and vital signs reviewed and patient is not hypoxic. General: The patient appears well and in no apparent distress. Patient is resting comfortably on cart. Patient is not toxic, lethargic, or listless Skin: Warm, dry, no pallor noted. There is no rash noted. No petechiae, purpura. Head: Normocephalic, atraumatic Eye: Normal conjunctiva, no drainage, EOMI. PERRL. No nystagmus. Ears, Nose, Mouth, and Throat: oral mucosa is moist. Nares patent. Mouth without vesicles. Patient has mild bilateral cerumen impaction, no bilateral erythema, perforation or bulging to bilateral TM. Cardiovascular: Regular Rate and Rhythm, no murmur, gallop, rub Respiratory: Patient is in no distress, no accessory muscle use, lungs are clear to auscultation, no wheezing, rales or rhonchi Back: non-tender, no CVA tenderness bilaterally to percussion. No CT LS midline pain GI: Obese, no tenderness to palpation, no masses appreciated. No rebound, guarding, or rigidity noted. No distention Musculoskeletal: Patient has full range of motion of all of the extremities, no motor, sensory, or focal neurological deficits Neurological: A&O x4, normal speech Psychiatric: Cooperative, slightly agitated initially, not suicidal homicidal. Related Data Previous Rx's ?Medication ?Instructions ?Recorded meclizine 25 mg chewable tablet 25 mg PO TID PRN dizzi ness or 03/17/25 (Antivert) vertigo #7 tabs Allergies Allergy/AdvReac Type Severity Reaction Status Date / Time erythromycin base Allergy Intermediate Rash Verified 01/28/25 12:19 Penicillins Allergy Intermediate Rash Verified 01/28/25 12:19 Opioid HPI Opioid Management Most Recent Opioid Data: Last Pain Scale 7 Today, 15:17 Last MAR Pain Assessment Today, 15:17 Ur Phencyclidine Scrn, (NEGATIVE) Negative Today, 14:05 PFSH PFSH Social History Smoking status: Current every day smoker Little interest or pleasure in doing things: not at all Feeling down, depressed, or hopeless: not at all Exam Constitutional Vital Signs, click to edit/add: Last Vital Signs Temp 97.8 F 03/17/25 16:09 Pulse 88 03/17/25 16:09 Resp 20 03/17/25 16:09 BP 145/89 H 03/17/25 16:09 Pulse Ox 96 03/17/25 16:09 O2 Del Method Room Air 03/17/25 16:09 Course Vital Signs Vital signs: Vital Signs Temperature 98.0 F 03/17/25 12:22 Pulse Rate 98 H 03/17/25 12:22 Respiratory Rate 18 03/17/25 12:22 Blood Pressure 158/101 H 03/17/25 12:22 Pulse Oximetry 98 03/17/25 12:22 Oxygen Delivery Method Room Air 03/17/25 12:22 Temperature 97.8 F 03/17/25 16:09 Pulse Rate 88 03/17/25 16:09 Respiratory Rate 20 03/17/25 16:09 Blood Pressure 145/89 H 03/17/25 16:09 Pulse Oximetry 96 03/17/25 16:09 Oxygen Delivery Method Room Air 03/17/25 16:09 Medical Decision Making [facility] Narrative Medical decision making narrative: Patient seen and examined: CT of the brain, IV fluids, lab work, medication Differential diagnosis includes but is not limited to: Brain mass, intracranial hemorrhage, TIA, vertigo, otitis media, dehydration, electrolyte abnormality, ACS, Relevant laboratory interpretation: No acute abnormalities Radiological studies: CT of the head negative Reevaluation: Patient feels much better after IV fluids, Antivert, Toradol and Tylenol. Patient no longer has vertigo or headache. Education on treatment at home and following up with specialist was discussed. Patient was given a work note. No questions at discharge. Social barriers to healthcare: There are no food insecurities, there is no issue with transportation, there are no insurance barriers. Lab Data Lab results reviewed: Yes I reviewed the patient's lab results Labs: Lab Results 03/17/25 03/17/25 03/17/25 Range/Units 12:35 12:48 14:05 WBC 7.1 (4.0-11.0) 10^3/uL RBC 5.47 (4.70-6.10) 10^6/uL Hgb 16.6 (14.0-18.0) g/dL Hct 46.1 (42.0-54.0) % MCV 84.3 (80.0-94.0) fL MCH 30.3 (25.9-34.0) pg MCHC 36.0 H (29.9-35.2) g/dL RDW 12.1 (11.0-15.0) % Plt Count 203 (150-450) 10^3/uL MPV 10.1 (9.5-13.5) fL Neut % (Auto) 58.3 (43.0-75.0) % Lymph % (Auto) 35.3 (20.5-60.0) % Logan % (Auto) 5.6 (1.7-12.0) % Eos % (Auto) 0.4 L (0.9-7.0) % Baso % (Auto) 0.1 L (0.2-2.0) % Neut # (Auto) 4.1 (1.4-6.5) 10^3/uL Lymph # (Auto) 2.5 (1.2-3.8) 10^3/uL Logan # (Auto) 0.4 (0.3-0.8) 10^3/uL Eos # (Auto) 0.0 (0.0-0.7) 10^3/uL Baso # (Auto) 0.0 (0.0-0.1) 10^3/uL Abs Immat Gran (auto) 0.02 (0.00-0.03) 10^3/uL Imm/Tot Granulo (auto) 0.3 (0.0-0.5) % Sodium 139 (136-145) mmol/L Potassium 3.9 (3.5-5.1) mmol/L Chloride 101 (98-107) mmol/L Carbon Dioxide 28.3 (21.0-32.0) mmol/L Anion Gap 13.6 BUN 14.0 (7.0-18.0) mg/dL Creatinine 1.03 (0.70-1.30) mg/dL Est GFR ( Amer) >60 (>=60 mL/min/1.73m^2) Est GFR (Non-Af Amer) >60 (>=60 mL/min/1.73m^2) BUN/Creatinine Ratio 13.6 Glucose 176 H (74-106) mg/dL Calcium 9.3 (8.5-10.1) mg/dL Total Bilirubin 0.7 (0.2-1.0) mg/dL AST 34 (15-37) U/L ALT 44 (16-63) U/L Alkaline Phosphatase 73 (46-116) U/L Troponin I High Sens 5.3 (4.0-76.1) pg/mL Total Protein 8.6 H (6.4-8.2) g/dL Albumin 3.9 (3.4-5.0) g/dL Globulin 4.7 g/dL Albumin/Globulin Ratio 0.8 Lipase 47.0 (16.0-77.0) U/L Urine Color Yellow (YELLOW) Urine Clarity Clear (CLEAR) Urine pH 6.0 (5.0-9.0) Ur Specific Addison 1.025 (1.005-1.025) Urine Protein Trace (NEG/TRACE) mg/dL Urine Glucose (UA) Negative (NEGATIVE) mg/dL Urine Ketones Trace A (NEGATIVE) mg/dL Urine Occult Blood Small A (NEGATIVE) Urine Nitrite Negative (NEGATIVE) Urine Bilirubin Negative (NEGATIVE) Urine Urobilinogen 0.2 (0.2-1.0) EU/dL Ur Leukocyte Esterase Negative (NEGATIVE) Urine RBC 0-2 (0-2) #/HPF Urine WBC None seen (NONE SEEN) #/HPF Ur Squamous Epith Cells Rare (NONE/RARE) #/LPF Urine Crystals None seen (None Seen) #/HPF Urine Bacteria Trace A (NONE SEEN) #/HPF Urine Casts None seen (NONE SEEN) #/LPF Urine Mucus Trace A (NONE SEEN) Urine Opiates Screen Negative (NEGATIVE) Ur Buprenorphine Scrn Negative (NEGATIVE) Ur Oxycodone Screen Negative (NEGATIVE) Urine Methadone Screen Negative (NEGATIVE) Ur Barbiturates Screen Negative (NEGATIVE) U Tricyclic Antidepress Negative (NEGATIVE) Ur Phencyclidine Scrn Negative (NEGATIVE) Ur Amphetamines Screen Negative (NEGATIVE) U Methamphetamines Scrn Negative (NEGATIVE) U Benzodiazepines Scrn Negative (NEGATIVE) Urine Cocaine Screen Negative (NEGATIVE) U Cannabinoids Screen Positive A (NEGATIVE) Influenza Type A Ag Negative Influenza Type B Ag Negative SARS-CoV-2 Ag (CV2AG) Negative (NEGATIVE) ECG Data Attestation: I personally reviewed and interpreted this ECG as follows: (EKG interpretation. Normal sinus rhythm at 89 beats a minute. Normal axis deviation. No acute ST elevation, no acute ectopy. QTc of 381.) Discharge Plan Discharge Stand Alone Forms: Work/School Release Chief Complaint: Chest Pain Clinical Impression: Dizziness, Vertigo, Headache, Dehydration Patient Disposition: Home, Self-Care Time of Disposition Decision: 15:14 Condition: Fair Prescriptions / Home Meds: New meclizine [Antivert] 25 mg tablet,chewable 25 mg PO TID PRN (Reason: dizziness or vertigo) Qty: 7 0RF Print Language: Syriac Instructions: Dehydration (ED), Vertigo (ED), Acute Headache (ED), Dizziness (ED) Additional Instructions: Use Antivert if needed for vertigo if it returns. Increase fluids at home, Gatorade, Powerade, water. Work note given. Referrals: MERNA SORIANO [Primary Care Provider, Family Practice] - 1 week Discharge Date/Time: 03/17/25 16:13
[2025-03-17 13:08] LABS: Hematocrit 46.1 % (42.0-54.0); Hemoglobin 16.6 g/dL (14.0-18.0); Immature Granulocytes Abs Auto 0.02 10^3/uL (0.00-0.03); Immature Granulocytes Pct Auto 0.3 % (0.0-0.5); Lymphocytes Absolute Auto 2.5 10^3/uL (1.2-3.8); Mean Corpuscular HGB Conc 36.0 g/dL (29.9-35.2); Mean Corpuscular Hemoglobin 30.3 pg (25.9-34.0); Mean Corpuscular Volume 84.3 fL (80.0-94.0); Platelet Count 203 10^3/uL (150-450); Red Blood Count 5.47 10^6/uL (4.70-6.10); White Blood Count 7.1 10^3/uL (4.0-11.0)
[2025-03-17 13:32] LABS: SARS-CoV-2 Ag NEGATIVE (NEGATIVE)
[2025-03-17 13:46] LABS: Anion Gap 13.6
[2025-03-17 13:49] LABS: Alanine Aminotransferase 44 U/L (16-63); Albumin Globulin Ratio 0.8; Albumin Level 3.9 g/dL (3.4-5.0); Alkaline Phosphatase 73 U/L (46-116); Aspartate Amino Transferase 34 U/L (15-37); Blood Urea Nitrogen 14.0 mg/dL (7.0-18.0); Calcium 9.3 mg/dL (8.5-10.1); Carbon Dioxide 28.3 mmol/L (21.0-32.0); Chloride 101 mmol/L (98-107); Estimated GFR (African America >60 (>=60 mL/min/1.73m^2); Estimated GFR (Non-African Ame >60 (>=60 mL/min/1.73m^2); Globulin 4.7 g/dL; Glucose 176 mg/dL (74-106); Lipase 47.0 U/L (16.0-77.0); Potassium 3.9 mmol/L (3.5-5.1); Sodium 139 mmol/L (136-145); Total Protein 8.6 g/dL (6.4-8.2)
[2025-03-17 14:25] LABS: Glucose Urine UA NEGATIVE (NEGATIVE)
[2025-03-17] MEDS: 0.9 % SODIUM CHLORIDE 1,000 ML 1000 ML IV (14:25)
[2025-03-17 14:32] LABS: Cast Seen? NONE SEEN #/LPF (NONE SEEN); Crystals Seen? None Seen #/HPF (None Seen)
[2025-03-17 14:34] LABS: Cannabinoid Screen Urine POSITIVE (NEGATIVE); Methamphetamines Screen Urine NEGATIVE (NEGATIVE); Tricyclic Antidepressant Urine NEGATIVE (NEGATIVE)
--- OUTSIDE RECORDS SUMMARY | 2025-03-17 15:07 | XMS_ITS | CCD ---
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 [HPF]0-2FSt. Anthony's Hospital Erythrocyte distribution width [Ratio] by Automated countOrdered By: Herminio Davila on 84-20-7850Usqjqqjngbz distribution width (RBC) [Ratio]13.1 %Normal 12.0-14.8[facility] Hospital NorthComment on above:Performed By: #### CBC, PT, PTT, CMP, CK, HS TROP #### [facility] [address] [place] [address] USAErythrocytes [#/area] in Urine sediment by Automated count Ordered By: Herminio Davila on 48-92-8254GLP Auto (Urine sed) [#/Area]1-2 [HPF]0-4 [facility] Hospital NorthErythrocytes [#/volume] in Blood by Automated countOrdered By: Herminio Davila on 67-68-1190EKG (Bld) [#/Vol]4.94 10*6/uLNormal 3.90-5.60[facility] NorthComment on above:Performed By: #### CBC, PT, PTT, CMP, CK, HS TROP #### [facility] [address] [place] [address] USAGlomerular filtration rate [Volume Rate/Area] in Serum, Plasma or Blood by CreatinineOrdered By: Herminio Davila on 75-84-6331Myodlrcqus filtration rate [Volume Rate/Area] in Serum, Plasma or Blood by Creatinine> 60.0 mL/MinPremier Health Miami Valley Hospital NorthGlucose [Mass/volume] in Serum or Plasma Ordered By: Herminio Davila on 26-91-7230Wifsthu [Mass/Vol]155 mg/gVXgel64-446 [facility] NorthComment on above:ADA recommended reference rangeRandom Glucose Reference Range is dependent on time and content of last meal. Glucose of more than 200 mg/dL in a nonstressed, ambulatory subject supports the diagnosisof Diabetes Mellitus.Result Comment: Random Glucose Reference Range is dependent on time and content of last meal. Glucose of more than 200 mg/dL in a nonstressed, ambulatory subject supports the diagnosis of Diabetes Mellitus. ADA recommended reference rangePerformed By: #### CBC, PT, PTT, CMP, CK, HS TROP #### [facility] [address] [place] [address] USAGlucose [Mass/volume] in Urine by Test stripOrdered By: Herminio Davila on 55-97-2601Nghyyxw Test strip (U) [Mass/Vol]Normal mg/dLNormal [facility] NorthHematocrit [Volume Fraction] of Blood by Automated countOrdered By: Herminio Davila on 68-28-4632Jsmszkgsub (Bld) [Volume fraction]42.2 %Zlljpg09.8-50.0[facility] NorthComment on above: Performed By: #### CBC, PT, PTT, CMP, CK, HS TROP #### [place] [address] USAHemoglobin Test strip Ql (U)Ordered By: Herminio Davila on 81-20-5281Oocvvftkgi Ql (U)TraceHighNegativePremier Health Miami Valley Hospital North Hemoglobin [Mass/volume] in BloodOrdered By: Herminio Davila on 02-04-2025 Hemoglobin (Bld) [Mass/Vol]15.2 g/iYLurvcg57.0-17.0[facility] NorthComment on above:Performed By: #### CBC, PT, PTT, CMP, CK, HS TROP #### [place] [address] USAHyaline casts [#/area] in Urine sediment by Automated countOrdered By: Herminio Davila on 81-65-1835Uvmgcky casts Auto (Urine sed) [#/Area]None [LPF]0-8[facility] NorthINR in Platelet poor plasma by Coagulation assayOrdered By: Herminio Davila on 99-16-2637TSP Coag (PPP) [Relative time]1.0 {INR}NormalPremier Health Miami Valley Hospital NorthComment on above:INR Therapeutic Range A) Pre- and Peroperative OAT started two weeks before surgery. NOT HIP SURGERY: 1.5 - 2.5 HIP SURGERY: 2 - 3B) Primary and secondary prevention of venous THROMBOSIS: 2 - 3C) Active venous thrombosis, pulmonary embolismand prevention of recurrent venous thrombosis: 2 - 3D) Preve ntion of arterial thromboembolismincluding patients with mechanical heart valves: 3 - 4.5Result Comment: INR Therapeutic Range A) Pre- and Peroperative OAT started two weeks before surgery. NOT HIP SURGERY: 1.5 - 2.5 HIP SURGERY: 2 - 3 B) Primary and secondary prevention of venous THROMBOSIS: 2 - 3 C) Active venous thrombosis, pulmonary embolism and prevention of recurrent venous thrombosis: 2 - 3 D) Prevention of arterial thromboembolism including patients with mechanical heart valves: 3 - 4.5Performed By: #### CBC, PT, PTT, CMP, CK, HS TROP #### [place] [address] USAISTAT ER Chem8+ Panelon 09-25-2199UT1 [Moles/Vol]20 mmol/L Izu70-19Zpm [facility] Physician GroupComment on above:Performed By: #### CUBLD #### [place] [address] USAISTAT Ionized Calcium1.17 mol/LNormal1.12-1.32The [facility] Health Physician GroupComment on above:Performed By: #### CUBLD #### [place] [address] USAISTAT ER Chem8+ PanelOrdered By: Herminio Davila on 87-43-2124Qvolukzofj (Bld) [Volume fraction]44.0 %Utmfqb16.0-51.0[facility] NorthComment on above:Performed By: #### CUBLD #### [place] [address] USAKetones [Presence] in Urine by Test stripOrdered By: Herminio Davila on 54-45-4593Lyvuurq Ql (U)NegativeNormalNegativePremier Health Miami Valley Hospital NorthComment on above:Order Comment: Name Collection Type:: Voided Performed By: #### CUBLD #### [place] [address] USALactate [Moles/volume] in Serum or PlasmaOrdered By: Herminio Davila on 16-37-6969Ltauzfx [Moles/Vol]0.9 mmol/LNormal0.5-1.9[facility] NorthComment on above:Lactic Acid reference range has been updated to 0.5 1.9 mmol/L and the critical range of 2.0 or greater.Result Comment: Lactic Acid reference range has been updated to 0.5 ? 1.9 mmol/L and the critical range of 2.0 or greater. PERFORMED BY: [place] [address] PATHOLOGIST SECTION BEAMER JODY DAN M.D.Performed By: #### CUBLD #### [place] [address] USALeukocyte esterase [Presence] in Urine by Test strip Ordered By: Herminio Davila on 60-28-8279Gpkfjksqb esterase Test strip Ql (U) NegativeNormalNegativePremier Health Miami Valley Hospital NorthComment on above:Order Comment: Name Collection Type:: VoidedPerformed By: #### CUBLD #### [place] [address] USALeukocytes [#/area] in Urine sediment by Automated count Ordered By: Herminio Davila on 44-97-8371SUN Auto (Urine sed) [#/Area]3-4 [HPF]0-4 [facility] NorthLeukocytes [#/volume] corrected for nucleated erythrocytes in Blood by Automated counOrdered By: Herminio Davila on 02-04-2025 WBC corrected for nucl RBC Auto (Bld) [#/Vol]8.9 10*3/uL4.1-10.5FSt. Anthony's HospitalLeukocytes [#/volume] in Blood by Automated countOrdered By: Herminio Davila on 91-34-1146RUH (Bld) [#/Vol]8.9 10*3/uLNormal4.1-10.5 [facility] NorthComment on above:Performed By: #### CBC, PT, PTT, CMP, CK, HS TROP #### [facility] [address] [place] [address] USALymphocytes [#/volume] in Blood by Automated countOrdered By: Herminio Davila on 28-12-1682Ikoxiqnbrbh (Bld) [#/Vol]3.8 10*3/uLNormal 1.00-4.8[facility] NorthComment on above:Performed By: #### CBC, PT, PTT, CMP, CK, HS TROP #### [facility] [address] [place] [address] USALymphocytes/100 leukocytes in Blood by Automated count Ordered By: Herminio Davila on 75-65-8233Vnpvlqbjbfp/100 WBC (Bld)42.6 %Normal. [facility] NorthComment on above:Performed By: #### CBC, PT, PTT, CMP, CK, HS TROP #### [address] [Entitic mass] by Automated countOrdered By: Herminio Davila on 59-96-1333ZRP (RBC) [Entitic mass]30.8 brGabdes28.5-35.2FSt. Anthony's HospitalComment on above:Performed By: #### CBC, PT, PTT, CMP, CK, HS TROP #### [address] Auto (RBC) [Mass/Vol]Ordered By: Herminio Davila on 58-56-5866CVYY (RBC) [Mass/Vol]36.1 g/uIQrwb57.5-35.6FSt. Anthony's HospitalMCV [Entitic volume] by Automated countOrdered By: Herminio Davila on 97-76-1368WOL (RBC) [Entitic vol]85.3 tWYmoglq56.5-101Prem[facility] NorthComment on above:Performed By: #### CBC, PT, PTT, CMP, CK, HS TROP #### [place] [address] USAMonocyte distribution width [Entitic volume] in Blood by AutomatedOrdered By: Herminio Davila on 49-67-8601Nksvtyka distribution width Auto (Bld) [Entitic vol]18.83 %0.00-20.00[facility] NorthMonocytes [#/volume] in Blood by Automated countOrdered By: Herminio Davila on 02-04-2025 Monocytes (Bld) [#/Vol]0.5 10*3/uLNormal0.0-0.8[facility] Comment on above:Performed By: #### CBC, PT, PTT, CMP, CK, HS TROP #### [facility] [address] [place] [address] USAMonocytes/100 leukocytes in Blood by Automated count Ordered By: Herminio Davila on 79-06-3004Nftmxpqph/100 WBC (Bld)5.5 %Normal. [facility] NorthComment on above:Performed By: #### CBC, PT, PTT, CMP, CK, HS TROP #### [facility] [address] [place] [address] USAMucus [Presence] in Urine by AutomatedOrdered By: Herminio Davila on 34-60-8968Qjmmb Auto Ql (U)Rare [LPF][facility] NorthNeutrophils [#/volume] in Blood by Automated countOrdered By: Herminio Davila on 24-32-6244Alvmszjicop (Bld) [#/Vol]4.5 10*3/uLNormal1.8-7.7FSt. Anthony's HospitalComment on above:Performed By: #### CBC, PT, PTT, CMP, CK, HS TROP #### [facility] [address] [place] [id number] USANeutrophils/100 leukocytes in Blood by Automated count Ordered By: Herminio Davila on 21-09-5797Sfhldkuizdn/100 WBC (Bld)50.4 %Normal. [facility] NorthComment on above:Performed By: #### CBC, PT, PTT, CMP, CK, HS TROP #### [facility] [address] [place] [address] USANitrite Test strip Ql (U)Ordered By: Herminio Davila on 80-78-5022Feinnfd Ql (U)NegativeNegativePremier Health Miami Valley Hospital NorthNo Panel InformationOrdered By: Herminio Davila on 63-88-8752Hccfaqbs Creatinine Clearance (Gstp680.66[facility] NorthNucleated erythrocytes [Presence] in Blood by Automated countOrdered By: Herminio Davila on 02-04-2025 Nucleated RBC Auto Ql (Bld)0.1 /100{WBC}0-0.5FSt. Anthony's Hospital Partial Thromboplastin Timeon 67-77-9505fZOP Coag (Bld) [Time]27.9 sNormal 25.1-36.5The [facility] Health Physician GroupComment on above:Result Comment: A hematocrit value greater than 55% may lead to inaccurate results in coagulation testing. Patients having hematocrit values >55% require a special collection tube for coagulation studies. Please contact the laboratory at [phone] for redraw instructions. PERFORMED BY: [place] [address] PATHOLOGIST SECTION BEAMER JODY DAN M.D.Performed By: #### CBC, PT, PTT, CMP, CK, HS TROP #### [facility] [address] [place] [address] USAPlatelet mean volume [Entitic volume] in Blood by Automated countOrdered By: Herminio Davila on 96-16-4479Snbyqrss mean volume (Bld) [Entitic vol]8.1 fLNormal6.6-10.1FSt. Anthony's HospitalComment on above:Performed By: #### CBC, PT, PTT, CMP, CK, HS TROP #### [facility] [address] [place] [address] USAPlatelets [#/volume] in Blood by Automated countOrdered By: Herminio Davila on 77-75-1645Qscwumjqx (Bld) [#/Vol]223 10*3/aSWnywuk993-278 [facility] NorthComment on above:Performed By: #### CBC, PT, PTT, CMP, CK, HS TROP #### [facility] [address] [place] [address] USAPotassium [Moles/volume] in Serum or PlasmaOrdered By: Herminio Davila on 42-30-5850Nsvpnwarp [Moles/Vol]3.7 mmol/LNormal3.5-5.1FSt. Anthony's HospitalComment on above:Performed By: #### CBC, PT, PTT, CMP, CK, HS TROP #### [facility] [address] [place] [address] USAProtein Test strip (U) [Mass/Vol]Ordered By: Herminio Davila on 78-73-7003Ynaoeiv (U) [Mass/Vol]NegativeNegativePremier Health Miami Valley Hospital NorthProtein [Mass/volume] in Serum or PlasmaOrdered By: Herminio Davila on 92-72-6675Ozxyakj [Mass/Vol]7.7 g/dLNormal6.4-8.9[facility] NorthComment on above:Performed By: #### CBC, PT, PTT, CMP, CK, HS TROP #### [facility] [address] [place] [address] USAProthrombin time (PT)Ordered By: Herminio Davila on 98-25-6320PB Coag (PPP) [Time]11.5 sNormal9.0-12.9[facility] NorthComment on above:A hematocrit value greater than 55% may lead to inaccurate results in coagulation testing. Patientshaving hematocrit values >55% require a special collection tube for coagulation studies. Please contact the laboratory at [phone] for redraw instructions.Result Comment: A hematocrit value greater than 55% may lead to inaccurate results in coagulation testing. Patients having hematocrit values >55% require a special collection tube for coagulation studies. Please contact the laboratory at [phone] for redraw instructions.Performed By: #### CBC, PT, PTT, CMP, CK, HS TROP #### [facility] [address] [place] [address] USASerum globulin measurement by calculation (mass/volume) Ordered By: Herminio Davila on 36-39-6732Hzlvqtaw (S) [Mass/Vol]3.6 g/dLNormal [facility] NorthComment on above:Performed By: #### CBC, PT, PTT, CMP, CK, HS TROP #### [place] [address] USASerum or plasma albumin/globulin mass ratioOrdered By: Herminio Davila on 51-33-3289Dazqhkc/Globulin [Mass ratio]1.1 {ratio}Normal [facility] NorthComment on above:Performed By: #### CBC, PT, PTT, CMP, CK, HS TROP #### [place] [address] USASerum or plasma anion gap determinationOrdered By: Herminio Davila on 63-45-0551Xlyxc gap [Moles/Vol]11.1 mmol/LNormal6.0-15.0[facility] NorthComment on above:Performed By: #### CBC, PT, PTT, CMP, CK, HS TROP #### [place] [address] USASodium [Moles/volume] in Serum or PlasmaOrdered By: Herminio Davila on 25-25-2792Bymbzs [Moles/Vol]136 mmol/WBsajkx192-143ZdudpaemgPremier Health Miami Valley Hospital NorthComment on above:Performed By: #### CBC, PT, PTT, CMP, CK, HS TROP #### [place] [address] USASpecific gravity Test strip (U) [Rel density]Ordered By: Herminio Davila on 11-36-3459Kttzpswn gravity (U) [Rel density]1.0271.001-1.030 [facility] NorthTroponin I High Sensitivityon 02-04-2025 Troponin I High Timitwnwvqz4Sddkys5-18Rrh [facility] Physician GroupComment on above:Result Comment: The Troponin units of report have been changed to meet the Chest Pain Accreditation requirement, element EC5.M1l2. Troponin units are changed from pg/ml to ng/L. Also, the decimal is removed and results are in whole numbers. PERFORMED BY: [place] [address] PATHOLOGIST SECTION BEAMER JODY DAN M.D.Performed By: #### CBC, PT, PTT, CMP, CK, HS TROP #### [facility] [address] [place] [id number] USATroponin I.cardiac [Mass/volume] in Serum or Plasma by Detection limit <= 0.01 ng/mLOrdered By: Herminio Davila on 91-89-2396Gvxnkzix I.cardiac DL <= 0.01 ng/mL [Mass/Vol]5 ng/L0-20[facility] Comment on above:The Troponin units of report have been changed to meet the Chest Pain Accreditation requirement, element EC5.M1l2. Troponin units are changed from pg/ml to ng/L. Also, the decimal is removed and results are in whole numbers.Urea nitrogen [Mass/volume] in Serum or PlasmaOrdered By: Herminio Davila on 75-14-8489Aklf nitrogen [Mass/Vol]16 mg/dLNormal7-25[facility] NorthComment on above:Performed By: #### CBC, PT, PTT, CMP, CK, HS TROP #### [facility] [address] [place] [id number] USAUrobilinogen Test strip (U) [Mass/Vol]Ordered By: Herminio Davila on 23-13-8471Swogzretnoxc (U) [Mass/Vol]Normal mg/dLNoOhioHealth Grant Medical CenterWhole blood chloride measurementOrdered By: Herminio Davila on 85-77-5337Etefspqc [Moles/Vol]106.0 mmol/SXvbkqg31-950FndkalrcwPremier Health Miami [facility] Hospital NorthComment on above:Performed By: #### CUBLD #### [facility] [address] [place] [id number] USAWhole blood creatinine measurementOrdered By: Herminio Davila on 33-40-7057Hpahffjbfg [Mass/Vol]1.0 mg/dLNormal0.6-1.3FSt. Anthony's HospitalComment on above:ER/ESD physician is notified/shown all ISTAT results.Critical values may be confirmed by laboratorytesting ifdeemed necessary by ER attending doctor.Result Comment: ER/ESD physician is notified/shown all ISTAT results. Critical values may be confirmed by laboratory testing if deemed necessary by ER attending doctor.Performed By: #### CUBLD #### [facility] [address] [place] [address] USAWhole blood ionized calcium measurement (moles/volume) Ordered By: Herminio Davila on 46-28-1165Mpzdllx.ionized (Bld) [Moles/Vol]1170 mmol/L1.12-1.32[facility] NorthWhole blood potassium measurementOrdered By: Herminio Davila on 79-83-1444Frhwsczpt [Moles/Vol]3.7 mmol/LNormal3.5-4.9[facility] NorthComment on above:Performed By: #### CUBLD #### [place] [address] USAWhole blood sodium measurementOrdered By: Herminio Davila on 06-90-8069Xxplvd [Moles/Vol]140 mmol/DNmpzye026-843VppzabxwdPremier Health Miami Valley Hospital NorthComment on above:Performed By: #### CUBLD #### [place] [address] USAaPTT in Platelet poor plasma by Coagulation assayOrdered By: Herminio Davila on 14-28-1362mOFA Coag (PPP) [Time]27.9 s25.1-36.5FSt. Anthony's HospitalComment on above:A hematocrit value greater than 55% may lead to inaccurate results in coagulation testing. Patientshaving hematocrit values >55% require a special collection tube for coagulation studies. Please c ontact the laboratory at [phone] for redraw instructions.pH of Urine by Test stripOrdered By: Herminio Davila on 20-62-4755lB (U)5.5 [pH]Normal5.0-9.0 [facility] NorthComment on above:Order Comment: Name Collection Type:: VoidedPerformed By: #### CUBLD #### [place] [address] USAOffice Visiton 60-68-3209Ykzpgr-up [id number] Chuck Packer 1985 M Date Provider Department Center 03/14/2024 Mayra-URBANO RODRIGUEZ [facility] SURG Second Fl No family history on file Level of Service:88662 [place] POSTOP FOLLOW UP VISIT RELATED TO ORIGINAL PX Reason for Visit and Comments: Post-op [483] - Chuck is here today for post op visit: hemorrhoids, s/p 02/29/24 EUA with hemorrhoidectomy and anal fissure debridementNormalUniPremier HealthHISTOLOGY - TISSUE EXAMon 21-69-7302VID AP CASE REPORT NellisUnCity HospitalComment on above:Order Comment: Pre-op diagnosis: Anal pain [K62.89]Result Comment: Surgical Pathology Case: [id number] Authorizing Provider: Urbano Rodriguez MD Collected: 02/29/2024 0827 Ordering Location: [facility] Main Operating Room Received: 02/29/2024 1058 Pathologist: Dyana Villasenor MD Specimens: A) - Anus, ANAL FISSURE B) - Anus, INTERNAL AND EXTERNAL HEMORRHOIDPerformed By: #### [id number] #### [facility] (BEAKER) [address] [place], [place] [address]WWH AP CLINICAL INFORMATIONNormalUniPremier HealthComment on above:Order Comment: Pre-op diagnosis: Anal pain [K62.89]Result Comment: Post-Op Diagnoses K62.89 - Anal pain [ICD-10-CM]Performed By: #### [id number] #### [facility] (BEAKER) [address] [place], [place] [address]GUP AP GROSS DESCRIPTIONA. Anus.[facility] Samaritan HospitalComment on above:Order Comment: Pre-op diagnosis: Anal pain [K62.89]Result Comment: Received in formalin labeled Chuck Packer, ANAL FISSURE is a pale cheung ellipse ofepithelial lined tissue, 1.3 x 0.5 x 0.6 cm. The epithelial surface is wrinkled and markedly distorted with surgical crush artifact. The non-epithelial surface is inked and the specimen is serially sectioned. The cut surfaces are dark rivers-brown rubbery and uniform. A definitive tract or cavity is not identified. The specimen is entirely submitted in a single cassette. [place], Pathologists' Combine Operator Leonel Hwang. Received in formalin labeled Chuck Packer, INTERNAL [...] are somewhat congested with focal prominent vessels. Model Maker Scale sections are submitted in a single cassette. [place] Pathologists' AssistantPerformed By: #### [id number] #### [facility] ([facility]) [address] [place], [place] [address]UNU AP MICROSCOPIC DESCRIPTIONMicroscopic examination performed. [facility]aritan HospitalComment on above:Order Comment: Pre-op diagnosis: Anal pain [K62.89]Performed By: #### [id number] #### [facility] ([facility]) [address] [place], [place] [address]KJG AP REPORT FINAL DIAGNOSIS NARRATIVENormalUniPremier HealthComment on above:Order Comment: Pre-op diagnosis: Anal pain [K62.89]Result Comment: A. Anal fissure, debridement: - Hyperplastic squamous mucosa and dilated congested submucosal veins. B. Hemorrhoids, internal and external, hemorrhoidectomy: - Internal and external hemorrhoids with acutely inflamed reactive surface epithelium. Performed By: #### [id number] #### [facility] ([facility]) [address] [place], [place] [address]MKuq 24-05-8162HVY&P reviewed. The patient was examined and there are no changes to the H&P.[facility] Samaritan HospitalOPNOTE on 96-20-9358GNDFGPPKPH UNDER ANESTHESIA,, HEMORRHOIDECTOMY, DEBRIDMENT OF ANAL FISSURE Operative Note Date: 02/29/2024 Location: [facility] OR Name: Chuck Packer, : 1985, Diagnosis Pre-op Diagnosis * Anal pain [K62.89] Post-op Diagnosis * Anal pain [K62.89] Anal fissure External and internal hemorrhoid Procedures HEMORRHOIDECTOMY, DEBRIDMENT OF ANAL FISSURE EXAM UNDER ANESTHESIA, [address] - RI ANRCT XM SURG REQ ANES GENERAL SPI/EDRL [...] EXTERNAL HEMORRHOID Comment: PLACED IN FORMALIN Staff: Wall Man: Shannan Guy RN Scrub Person: Dianelys Watson CST [place] Scrub: Minna Mcclendon RN Indications: Chuck [...] Disposition: PACU - hemodynamically stable. Condition: stable Melbareun Rodriguez JmifthNnvunnletjUniversity Hospitals Geauga Medical CenterCT GLUCOSE METER UNSOLICITED RESULTSon 69-96-9476Iefjkqp [Mass/Vol]134 mg/dSYkiz04-932 [facility] - AndersonComment on above:Order Comment: Waived Testing in the ED is performed under the ED CLIA certificate #[id number].Result Comment: jvcumtq15Isuxfewmr By: #### [id number] #### [facility] H[facility] (BEAKER) [address] [place], [place] [address]Jbkpanxbv [id number] Chuck Packer 1985 M Date Provider Department Center 02/23/2024 Mayra-MICHAEL URBANO [facility] SURG Second Fl No family history on file Level of Service:63561 RI OFFICE/OUTPATIENT NEW LOW MDM 30 MINUTES Reason for Visit and Comments: Consult [484] - Chuck is here today for consult: Rectal pain and BleedingNormal [facility] - AndersonHPon 45-64-7866QWNeexfyfpuc Patient ID: Chuck Packer is a 38 [...] the past 36 hour(s)). No follow-ups on file.NormalOur Lady of Mercy Hospital - AndersonGeneral Surgery Office/Clinic Noteon 18-98-6565Qumlzng Surgery Office/Clinic NoteGeneral Surgery Office/Clinic Note HPI Staff 38 year old male presents on consultation from Lyndsey Soriano for rectal pain and bleeding. Reports 3-4month history of intermittent pain and bleeding. Reports [...] swallowing difficulties, no hearing loss, no ear infection(s),no nose bleeds. Cardiovascular: normal blood pressure, no [...] Rectal bleeding Rectal or anal pain Smoker Grsqp-Tmlfwsjok-Fppvy syndrome Historical Atrial fibrillation Epididymitis Nocturia Scrotal [...] virus vaccine, inactivated - Not Given Patient RefusesNormalFishMedStar Good Samaritan HospitalComment on above:Result Comment: Electronically Signed By: VIVIANE SIMS, Lucy Yañez\Date and Time Signed: 12/26/23 19:55 EDTAmbulatory Visit Summaryon 36-74-0790Fhbojnqxjp Visit SummaryAmbulatory Visit Summary CHUCK PACKER :1985 Visit Date:12/21/2023 Ambulatory Visit Instructions Your Care Team Attending Physician - Lucy PAN MD Primary Care Physician - LEIGHANN SORIANO [...] 1 Tablets By Mouth Every day Contact prescribingphysician if questions or concerns Allergies erythromycin (rash) [...] with mild panic attacks Rectal bleeding Smoker Xysah-Ndpdvvolc-Kzixi syndrome Historical - Any problem that you are no longer receiving treatment for. Atrial fibrillation Epididymitis Nocturia Scrotal pain Patient Survey You may receive a survey via text or e-mail asking about your office visit. Please share your experience with us by completing your survey. We appreciate your feedback and thank you for choosing us for your care. [facility] AUTO DIFFon [id number] # 0.0 103/ulNormal0.0-0.1The Parkwood HospitalComment on above:Performed By: #### PTT, PT #### [facility] [address] [place] [address] Dr. Oh TrotterBasophils/100 WBC (Bld)0.2 %Normal0.2-2.0[facility] Comment on above:Performed By: #### PTT, PT #### [facility] [address] [place] [address] Dr. Oh Shaw #0.0 103/ulNormal0.0-0.7The Parkwood HospitalComment on above: Performed By: #### PTT, PT #### [facility] [address] [place] [address] Dr. Oh Huangosinophils/100 WBC (Bld)0.6 %Critically low0.9-7.0The Parkwood HospitalComment on above:Performed By: #### PTT, PT #### [facility] [address] [place] [address] Dr. Oh Huangrythrocyte distribution width (RBC) [Ratio]12.2 %Ysvkez83.0-15.0 The Parkwood HospitalComment on above:Performed By: #### PTT, PT #### [facility] [address] [place] [address] Dr. Oh Dejesusatocrit (Bld) [Volume fraction]44.1 %Vzuqzj04.0-54.0[facility], [facility]onComment on above:Performed By: #### PTT, PT #### [facility] [address] [place] [address] Dr. Yilan ChangHemoglobin (Bld) [Mass/Vol]15.8 g/uOFujldm19.0-18.0The Parkwood HospitalComment on above:Performed By: #### PTT, PT #### [facility] [address] [place] [address] Dr. Oh Malave #0.02 10e3/ulNormal0.00-0.03The Parkwood HospitalComment on above:Performed By: #### PTT, PT #### [facility] [address] [place] [address] Dr. Oh Malave %0.3 %Normal0.0-0.5The [facility]wood HospitalComment on above: Performed By: #### PTT, PT #### [facility] [address] [place] [address] Dr. Oh Aldana #1.9 103/ulNormal1.2-3.8The Parkwood HospitalComment on above:Performed By: #### PTT, PT #### [facility] [address] [place] [address] Dr. Oh Orellanahocytes/100 WBC (Bld)29.7 %Pvacyc29.5-60.0The [facility] HospitalComtrinity [facility] on above:Performed By: #### PTT, PT #### [facility] [address] [place] [address] Dr. Oh SaldanaUAL DIFF REQNONormalThe Parkwood HospitalComment on above: Performed By: #### PTT, PT #### [facility] [address] [place] [address] Dr. Oh Lau (RBC) [Entitic mass]29.8 yiRqkhai65.9-34.0The Parkwood HospitalComment on above:Performed By: #### PTT, PT #### [facility] [address] [place] [address] Dr. Oh Lau (RBC) [Mass/Vol]35.8 g/dLCritically high29.9-35.2The [facility]wood HospitalComment on above:Performed By: #### PTT, PT #### [facility] [address] [place] [address] Dr. Oh LauV (RBC) [Entitic vol]83.2 xBWltzpc26.0-94.0The [facility] Centerment on above:Performed By: #### PTT, PT #### [facility] [address] [place] [address] Dr. Oh Johnson #0.6 103/ulNormal0.3-0.8The Parkwood HospitalComment on above:Performed By: #### PTT, PT #### [facility] [address] [place] [address] Dr. Oh Cedeñoocytes/100 WBC (Bld)8.6 %Normal1.7-12.0The [facility] on above:Performed By: #### PTT, PT #### [facility] [address] [place] [address] Dr. Oh Cruz #3.9 103/ulNormal1.4-6.5The [facility] Centerment on above:Performed By: #### PTT, PT #### [facility] [address] [place] [address] Dr. Oh Velazquezutrophils/100 WBC (Bld)60.6 %Dwkrer64.0-75.0The [facility] on above:Performed By: #### PTT, PT #### [facility] [address] [place] [address] Dr. Oh Holmanlet mean volume (Bld) [Entitic vol]9.5 fLNormal9.5-13.5The [facility] Centerment on above:Performed By: #### PTT, PT #### [facility] [address] [place] [address] Dr. Oh TrotterPLT187 103/fuHnhcxx832-886Yvp [facility] on above: Performed By: #### PTT, PT #### [facility] [address] [place] [address] Dr. Oh TrotterRBC5.30 106/ulNormal4.70-6.10The [facility] Centerment on above:Performed By: #### PTT, PT #### [facility] [address] [address] [address] Oh TrotterWBC6.4 103/ulNormal4.0-11.0The Parkwood HospitalComment on above: Performed By: #### PTT, PT #### [facility] [address] [address] [address] Oh Paul 14(COMP METB)on [id number] [Mass/Vol]3.5 g/dLNormal 3.4-5.0The [facility]wood HospitalComment on above:Performed By: #### LIPA, CMP, HSTROPN #### [facility] [address] [place] [address] Dr. Oh TrotterAlbumin/Globulin [Mass ratio]0.7 {ratio}NormalThe Parkwood HospitalComment on above:Performed By: #### LIPA, CMP, HSTROPN #### [facility] [address] [place] [address] Dr. Oh Sheets [Catalytic activity/Vol]85 U/CPlozmy48-115Dei [facility] Centerment on above:Performed By: #### LIPA, CMP, HSTROPN #### [facility] [address] [place] [address] Dr. Oh Negron [Catalytic activity/Vol]34 U/RQswzbx97-66Ofk [facility] HospitalComment on above:Performed By: #### LIPA, CMP, HSTROPN #### [facility] [address] [place] [address] Dr. Oh Claire gap [Moles/Vol]13.3 mmol/LNormalThe [facility] on above:Performed By: #### LIPA, CMP, HSTROPN #### [facility] [address] [place] [address] Dr. Oh Milner [Catalytic activity/Vol]18 U/THpblgq34-89Gpg [facility] Centerment on above:Performed By: #### LIPA, CMP, HSTROPN #### [facility] [address] [address] [address] Oh TrotterBilirubin [Mass/Vol]0.4 mg/dLNormal0.2-1.0The [facility] Comment on above:Performed By: #### LIPA, CMP, HSTROPN #### [facility] [address] [place] [address] Dr. Oh TrotterCalcium [Mass/Vol]8.9 mg/dLNormal8.5-10.1[facility] Comment on above:Performed By: #### LIPA, CMP, HSTROPN #### [facility] [address] [place] [address] Dr. Oh TrotterChloride [Moles/Vol]105 mmol/ZQrinzd84-170PhsSelect Medical [facility] [place] Comment on above:Performed By: #### LIPA, CMP, HSTROPN #### [facility] [address] [place] [address] Dr. Oh TrotterCO2 [Moles/Vol]24.7 mmol/GEivehu19.0-32.0[facility] [place] Comment on above:Performed By: #### LIPA, CMP, HSTROPN #### [facility] [address] [place] [address] Dr. Oh TrotterCreatinine [Mass/Vol]0.88 mg/dLNormal0.70-1.30The [facility] HospitalComment on above:Performed By: #### LIPA, CMP, HSTROPN #### [facility] [address] [place] [address] Dr. Oh HuangGFR-AF CENTRAL AFRICAN>60Normal>=60The [facility]wood HospitalComment on above:Performed By: #### LIPA, CMP, HSTROPN #### [facility] [address] [place] [address] Dr. Oh HuangGFR-NON AF CENTRAL AFRICAN>60Normal>=60The [facility] HospitalComment on above:Performed By: #### LIPA, CMP, HSTROPN #### [facility] [address] [address] [address] Oh TrotterGlobulin (S) [Mass/Vol]4.8 g/dLNormRegency Hospital ToledoComment on above:Performed By: #### LIPA, CMP, HSTROPN #### [facility] [address] [place] [address] Dr. Oh TrotterGlucose [Mass/Vol]113 mg/dLCritically wumw81-734Lul [facility] HospitalComment on above:Performed By: #### LIPA, CMP, HSTROPN #### [facility] [address] [address] [address] Oh TrotterPotassium [Moles/Vol]4.0 mmol/LNormal3.5-5.1The [facility] Comment on above:Performed By: #### LIPA, CMP, HSTROPN #### [facility] [address] [place] [address] Dr. Oh TrotterProtein [Mass/Vol]8.3 g/dLCritically high6.4-8.2The [facility] HospitalComment on above:Performed By: #### LIPA, CMP, HSTROPN #### [facility] [address] [place] [address] Dr. Oh Lopezdium [Moles/Vol]139 mmol/JDtkaoz144-177Qwq [facility] Comment on above:Performed By: #### LIPA, CMP, HSTROPN #### [facility] [address] [place] [address] Dr. Oh TrotterUrea nitrogen [Mass/Vol]15.0 mg/dLNormal7.0-18.0The [facility] HospitalComment on above:Performed By: #### LIPA, CMP, HSTROPN #### [facility] [address] [place] [address] Dr. Oh Amador nitrogen/Creatinine [Mass ratio]17.0 mg/mgNoAkron Children's HospitalComment on above:Performed By: #### LIPA, CMP, HSTROPN #### [facility] [address] [place] [address] Dr. Oh TrotterXR ABD FLAT UP_PA German [id number] ABD FLAT UP_PA CHEXAM: XR ABD FLAT UP_PA CH REASON FOR [...] Electronically authenticated by: VERA SETHI Date: 2022-07-28 22:14No[facility] AUTO DIFFon [id number] #0.0 103/ulNormal0.0-0.1[facility], AvonComment on above:Performed By: #### LIPA, CMP, HSTROPN #### [facility] [address] [address] [address] Oh TrotterBasophils/100 WBC (Bld)0.2 %Normal0.2-2.0[facility] Comment on above:Performed By: #### LIPA CMP, HSTROPN #### [facility] [address] [address] [address] Oh Shaw #0.1 103/ulNormal0.0-0.7The [facility] HospitalComment on above: Performed By: #### LIPA CMP, HSTROPN #### [facility] [address] [place] [address] Dr. Oh Huangosinophils/100 WBC (Bld)0.9 %Normal0.9-7.0[facility] Comment on above:Performed By: #### LIPA, CMP, HSTROPN #### [facility] [address] [place] [address] Dr. Oh Huangrythrocyte distribution width (RBC) [Ratio]12.4 %Hfqpyx55.0-15.0 The [facility] HospitalComment on above:Performed By: #### LIPA, CMP, HSTROPN #### [facility] [address] [place] [address] Dr. Oh TrotterHematocrit (Bld) [Volume fraction]44.8 %Ntexff76.0-54.0The [facility] HospitalComment on above:Performed By: #### LIPA, CMP, HSTROPN #### [facility] [address] [place] [address] Dr. Oh TrotterHemoglobin (Bld) [Mass/Vol]15.7 g/qUKxdfhe10.0-18.0The [facility] HospitalComment on above:Performed By: #### LIPA, CMP, HSTROPN #### [facility] [address] [place] [address] Dr. Oh Malave #0.02 10e3/ulNormal0.00-0.03The [facility] HospitalComment on above:Performed By: #### LIPA, CMP, HSTROPN #### [facility] [address] [place] [address] Dr. Oh Malave %0.2 %Normal0.0-0.5The [facility] HospitalComment on above: Performed By: #### LIPA, CMP, HSTROPN #### [facility] [address] [place] [address] Dr. Oh OrellanaH #3.2 103/ulNormal1.2-3.8The [facility] HospitalComment on above:Performed By: #### LIPA, CMP, HSTROPN #### [facility] [address] [place] [address] Dr. Oh Shahmphocytes/100 WBC (Bld)39.2 %Zghxhj59.5-60.0The Deep HospitalComment on above:Performed By: #### LIPA, CMP, HSTROPN #### [facility] [address] [address] [address] Oh Smith DIFF REQNONormalThe [facility] HospitalComment on above: Performed By: #### LIPA, CMP, HSTROPN #### [facility] [address] [place] [address] Dr. Oh Lau (RBC) [Entitic mass]29.3 fnYuuxyt68.9-34.0The [facility] HospitalComment on above:Performed By: #### LIPA, CMP, HSTROPN #### [facility] [address] [place] [address] Dr. Oh Lau (RBC) [Mass/Vol]35.0 g/hNCrqylp83.9-35.2The [facility] HospitalComment on above:Performed By: #### LIPA, CMP, HSTROPN #### [facility] [address] [place] [address] Dr. Oh Sahni (RBC) [Entitic vol]83.7 dOLsbjnr86.0-94.0The [facility] HospitalComment on above:Performed By: #### LIPA, CMP, HSTROPN #### [facility] [address] [place] [address] Dr. Oh Johnson #0.6 103/ulNormal0.3-0.8The [facility] HospitalComment on above:Performed By: #### LIPA, CMP, HSTROPN #### [facility] [address] [place] [address] Dr. Oh Cedeñoocytes/100 WBC (Bld)7.5 %Normal1.7-12.0[facility] Comment on above:Performed By: #### LIPA, CMP, HSTROPN #### [facility] [address] [place] [address] Dr. Oh Cruz #4.3 103/ulNormal1.4-6.5The [facility] HospitalComment on above:Performed By: #### LIPA, CMP, HSTROPN #### [facility] [address] [place] [address] Dr. Oh Velazquezutrophils/100 WBC (Bld)52.0 %Ifvdob94.0-75.0The [facility] HospitalComment on above:Performed By: #### LIPA, CMP, HSTROPN #### [facility] [address] [place] [address] Dr. Oh TrotterPlatelet mean volume (Bld) [Entitic vol]9.8 fLNormal9.5-13.5The [facility] HospitalComment on above:Performed By: #### LIPA, CMP, HSTROPN #### [facility] [address] [place] [address] Dr. Oh TrotterPLT210 103/myEchsqu083-973Rki [facility] HospitalComment on above: Performed By: #### LIPA, CMP, HSTROPN #### [facility] [address] [place] [address] Dr. Oh TrotterRBC5.35 106/ulNormal4.70-6.10The [facility] HospitalComtr[facility] on above:Performed By: #### LIPA, CMP, HSTROPN #### [facility] [address] [place] [address] Dr. Oh TrotterWBC8.2 103/ulNormal4.0-11.0The [facility] HospitalComtr[facility] on above: Performed By: #### LIPA, CMP, HSTROPN #### [facility] [address] [place] [address] Dr. Oh TrotterOCC BLD IMMUNOASSAYon [id number] BLOODPositiveAbnormal NEGATIVEThe [facility] HospitalComtr[facility] on above:Performed By: #### PTT, PT #### [facility] [address] [place] [address] Dr. Oh Paul 14(COMP METB)on [id number] [Mass/Vol]3.9 g/dLNormal 3.4-5.0The [facility] HospitalComment on above:Performed By: #### LIPA, CMP, HSTROPN #### [facility] [address] [address] [address] Oh TrotterAlbumin/Globulin [Mass ratio]0.9 {ratio}NormalThe [facility] HospitalComtrinity [facility] on above:Performed By: #### LIPA, CMP, HSTROPN #### [facility] [address] [place] [address] Dr. Oh AstorgaP [Catalytic activity/Vol]98 U/YNrxpfj23-890Nsg [facility] on above:Performed By: #### LIPA, CMP, HSTROPN #### [facility] [address] [place] [address] Dr. Oh Negron [Catalytic activity/Vol]47 U/JHdutpd44-57Oki [facility] Centerment on above:Performed By: #### LIPA, CMP, HSTROPN #### [facility] [address] [place] [address] Dr. Oh Claire gap [Moles/Vol]13.8 mmol/LNormalThe [facility] Comment on above:Performed By: #### LIPA, CMP, HSTROPN #### [facility] [address] [place] [address] Dr. Oh TrotterAST [Catalytic activity/Vol]18 U/RGpvvoa28-88Sou [facility] on above:Performed By: #### LIPA, CMP, HSTROPN #### [facility] [address] [place] [address] Dr. Oh TrotterBilirubin [Mass/Vol]0.3 mg/dLNormal0.2-1.0The [facility] Comment on above:Performed By: #### LIPA, CMP, HSTROPN #### [facility] [address] [place] [address] Dr. Oh TrotterCalcium [Mass/Vol]8.8 mg/dLNormal8.5-10.1[facility] Comment on above:Performed By: #### LIPA, CMP, HSTROPN #### [facility] [address] [address] [address] Oh TrotterChloride [Moles/Vol]105 mmol/RPbbqaw13-801Iwn [facility] Comment on above:Performed By: #### LIPA, CMP, HSTROPN #### [facility] [address] [address] [address] Oh TrotterCO2 [Moles/Vol]25.2 mmol/GLvqpzc04.0-32.0The [facility] Comment on above:Performed By: #### LIPA, CMP, HSTROPN #### [facility] [address] [place] [address] Dr. Oh TrotterCreatinine [Mass/Vol]1.02 mg/dLNormal0.70-1.30The [facility] HospitalComment on above:Performed By: #### LIPA, CMP, HSTROPN #### [facility] [address] [place] [address] Dr. Oh HuangGFR-AF CENTRAL AFRICAN>60Normal>=60The [facility] HospitalComment on above:Performed By: #### LIPA, CMP, HSTROPN #### [facility] [address] [place] [address] Dr. Oh Mccormick-NON AF CENTRAL AFRICAN>60Normal>=60[facility], AvonComment on above:Performed By: #### LIPA, CMP, HSTROPN #### [facility] [address] [place] [address] Dr. Oh TrotterGlobulin (S) [Mass/Vol]4.2 g/dLNormalThe [facility] HospitalComment on above:Performed By: #### LIPA, CMP, HSTROPN #### [facility] [address] [place] [address] Dr. Oh TrotterGlucose [Mass/Vol]104 mg/zXFaozhs97-977Ldd [facility] Comment on above:Performed By: #### LIPA, CMP, HSTROPN #### [facility] [address] [place] [address] Dr. Oh TrotterPotassium [Moles/Vol]4.0 mmol/LNormal3.5-5.1The [facility] Comment on above:Performed By: #### LIPA, CMP, HSTROPN #### [facility] [address] [address] [address] Oh TrotterProtein [Mass/Vol]8.1 g/dLNormal6.4-8.2[facility] Comment on above:Performed By: #### LIPA, CMP, HSTROPN #### [facility] [address] [place] [address] Dr. Oh TrotterSodium [Moles/Vol]140 mmol/VLodylz674-472Nht [facility] Comment on above:Performed By: #### LIPA, CMP, HSTROPN #### [facility] [address] [place] [address] Dr. Oh TrotterUrea nitrogen [Mass/Vol]16.0 mg/dLNormal7.0-18.0[facility], AvonComment on above:Performed By: #### LIPA, CMP, HSTROPN #### [facility] [address] [place] [address] Dr. Oh Amador nitrogen/Creatinine [Mass ratio]15.7 mg/mgNoAkron Children's HospitalComment on above:Performed By: #### LIPA, CMP, HSTROPN #### [facility] [address] [place] [address] Dr. Oh TrotterPROTIMEon [id number] Coag (PPP) [Relative time]{INR}NormalSelect Medical Cleveland Clinic Rehabilitation Hospital, AvonComment on above:Performed By: #### PTT, PT #### [facility] [address] [place] [address] Dr. Oh Coy GUIDELINESSEE BELOWOhioHealth Pickerington Methodist HospitalComment on above:Result Comment: DESIRED INR: 2.0 - 3.0 CONDITIONS NOT LISTED BELOW 2.5 - 3.5 FOR PROSTHETIC HEART VALVE REPLACEMENT 2.5 - 3.5 RECURRENT THROMBOSIS Performed By: #### PTT, PT #### [facility] [address] [place] [address] Dr. Oh Young Coag (PPP) [Time]9.8 sNormal9.0-11.6ThGrant Hospital Comment on above:Performed By: #### PTT, PT #### [facility] [address] [place] [address] Dr. Oh Lozoya [id number] Coag (Bld) [Time]26.6 dHjvcyu84.3-36.2[facility], AvonComment on above:Performed By: #### PTT, PT #### [facility] [address] [place] [address] Dr. Oh TrotterCovid-19 PCR ([facility])on [id number]-CoV-2 (COVID-19) RNA SHAE+probe Ql (Unsp spec)Not detectedNormalNOT DETECTEDSelect [facility] [place] Comment on above:Result Comment: This test is not yet approved or cleared by the [place] FDA. When there are no FDA-approved or cleared tests available, and other criteria are met, FDA can make tests available under an emergency access mechanism called an Emergency Use Authorization (EUA). The EUA for this test is supported by the [employer] of Health and Human Service's (HHS's) declaration that circumstances exist to justify the emergency use of in vitro diagnostics for the detection and/or diagnosis of the virus that causes COVID- 19. This EUA will remain in effect (meaning [...] of clinical signs and symptoms consistent with SARS-CoV-2.Performed By: #### PTT, PT #### [facility] [address] [place] [address] Dr. Oh TrotterINFLRENEENZA A AND B AGon [id number] Osteopathic HospitalComment on above:Result Comment: Negative for Flu A protein angiten. Infection due to Flu A cannot be ruled out. FluA angiten in the sample may be below the detection limit of the test.Performed By: #### LIPA, CMP, HSTROPN #### [facility] [address] [place] [address] Dr. Oh Wray [facility] CompanyComment on above: Result Comment: Negative for Flu B protein antigen. Infection due to Flu B cannot be ruled out. FluB antigen in the sample may be below the detection limit of the test.Performed By: #### LIPA, CMP, HSTROPN #### [facility] [address] [place] [address] Dr. Oh Carrillo AGNegativeNormalNEGATIVE SEE COMMENTThe [facility] on above:Performed By: #### LIPA, CMP, HSTROPN #### [facility] [address] [place] [address] Dr. Oh Ashton AGNegativeNormalNEGATIVE SEE COMMENTThe [facility] HospitalComment on above:Performed By: #### LIPA, CMP, HSTROPN #### [facility] [address] [place] [address] Dr. Oh Bonilla AUTO DIFFon [id number] #0.0 103/ulNormal0.0-0.1The [facility] HospitalComment on above:Performed By: #### PTT, PT #### [facility] [address] [place] [address] Dr. Oh TrotterBasophils/100 WBC (Bld)0.2 %Normal0.2-2.0The [facility] Comment on above:Performed By: #### PTT, PT #### [facility] [address] [place] [address] Dr. Oh Shaw #0.0 103/ulNormal0.0-0.7The [facility] HospitalComment on above: Performed By: #### PTT, PT #### [facility] [address] [place] [address] Dr. Oh Huangosinophils/100 WBC (Bld)0.4 %Critically low0.9-7.0The [facility] Centerment on above:Performed By: #### PTT, PT #### [facility] [address] [place] [address] Dr. Oh Huangrythrocyte distribution width (RBC) [Ratio]12.2 %Jjnass98.0-15.0 The [facility] HospitalComment on above:Performed By: #### PTT, PT #### [facility] [address] [place] [address] Dr. Oh TrotterHematocrit (Bld) [Volume fraction]45.7 %Vbdzwd41.0-54.0The [facility] HospitalComment on above:Performed By: #### PTT, PT #### [facility] [address] [place] [address] Dr. Oh TrotterHemoglobin (Bld) [Mass/Vol]16.0 g/gTYvooij98.0-18.0The [facility] Centerment on above:Performed By: #### PTT, PT #### [facility] [address] [place] [address] Dr. Oh Malave #0.04 10e3/ulCritically high0.00-0.03The [facility] Comment on above:Performed By: #### PTT, PT #### [facility] [address] [place] [address] Dr. Oh TrotterIG %0.4 %Normal0.0-0.5The [facility] HospitalComment on above: Performed By: #### PTT, PT #### [facility] [address] [place] [address] Dr. Oh ShahMPH #2.8 103/ulNormal1.2-3.8The [facility] HospitalComment on above:Performed By: #### PTT, PT #### [facility] [address] [place] [address] Dr. Oh Shahmphocytes/100 WBC (Bld)29.5 %Zrdcjn90.5-60.0The [facility] Centerment on above:Performed By: #### PTT, PT #### [facility] [address] [place] [address] Dr. Oh Smith DIFF REQNONormalThe [facility] HospitalComment on above: Performed By: #### PTT, PT #### [facility] [address] [place] [address] Dr. Oh Lau (RBC) [Entitic mass]29.7 ydBzuoti06.9-34.0The [facility] HospitalComment on above:Performed By: #### PTT, PT #### [facility] [address] [place] [address] Dr. Oh Lau (RBC) [Mass/Vol]35.0 g/xRJmbypb32.9-35.2The Parkwood HospitalComment on above:Performed By: #### PTT, PT #### [facility] [address] [place] [address] Dr. Oh Lau (RBC) [Entitic vol]84.8 zEOuyuzy04.0-94.0The Parkwood HospitalComment on above:Performed By: #### PTT, PT #### [facility] [address] [place] [address] Dr. Oh Johnson #0.5 103/ulNormal0.3-0.8The Parkwood HospitalComment on above:Performed By: #### PTT, PT #### [facility] [address] [place] [address] Dr. Oh Cedeñoocytes/100 WBC (Bld)5.2 %Normal1.7-12.0[facility] Comment on above:Performed By: #### PTT, PT #### [facility] [address] [place] [address] Dr. Oh Cruz #6.2 103/ulNormal1.4-6.5The Parkwood HospitalComment on above:Performed By: #### PTT, PT #### [facility] [address] [place] [address] Dr. Oh Velazquezutrophils/100 WBC (Bld)64.3 %Atrzde30.0-75.0The Parkwood HospitalComment on above:Performed By: #### PTT, PT #### [facility] [address] [place] [address] Dr. Oh Holmanlet mean volume (Bld) [Entitic vol]9.9 fLNormal9.5-13.5The Parkwood HospitalComment on above:Performed By: #### PTT, PT #### [facility] [address] [place] [address] Dr. Oh TrotterPLT196 103/kdDjwsru198-955Zeg Park[facility] HospitalComment on above: Performed By: #### PTT, PT #### [facility] [address] [place] [address] Dr. Oh TrotterRBC5.39 106/ulNormal4.70-6.10The Parkwood HospitalComment on above:Performed By: #### PTT, PT #### [facility] [address] [place] [address] Dr. Oh TrotterWBC9.6 103/ulNormal4.0-11.0The Parkwood HospitalComment on above: Performed By: #### PTT, PT #### [facility] [address] [place] [address] Dr. Oh BlissDIMERon [id number]-DIMER<0.19Normal<=0.59[facility] Comment on above:Performed By: #### PTT, PT #### [facility] [address] [place] [address] Dr. Oh Delgado-DIMER COMMENTSSEE Regency Hospital CompanyComment on above:Result Comment: Increases in D-Dimer concentration observed with thromboembolic [...] stress, and generalized hospitalization. Performed By: #### PTT, PT #### [facility] [address] [address] [address] Oh Magana URINE PROFILEon 33-63-8145Bizrfbxbl Ql (U)NegativeNormal NEGATIVESelect Medical [facility], AvonComment on above:Performed By: #### SRAVANI UMICRO #### [facility] [address] [address] [address] Oh TrotterClarity (U)CLEARNormalCLEARSelect Medical [facility], AvonComment on above: Performed By: #### SRAVANI UMICRO #### [facility] [address] [address] [address] Oh Maierlor (U)LT. YELLOWNormalYELLOWSelect Medical [facility] Hospital, AvonComment on above:Performed By: #### SRAVANI UMICRO #### [facility] [address] [place] [address] Dr. Oh Washburn micrscopic examination will be performed if indicated. NormalSelect Medical [facility] Hospital, AvonComment on above:Performed By: #### SRAVANI UMICRO #### [facility] [address] [place] [address] Dr. Oh TrotterGlucose Ql (U)NegativeNormalNEGATIVESelect Medical [facility], AvonComment on above:Performed By: #### SRAVANI UMICRO #### [facility] [address] [place] [address] Dr. Oh TrotterHemoglobin Ql (U)SMALLAbnormalNEGATIVEUniversity Hospitals E[facility] on above:Performed By: #### SRAVANI UMICRO #### [facility] [address] [place] [address] Dr. Oh TrotterKetones Ql (U)NegativeNormalNEGATIVESelect Medical [facility], AvonComment on above:Performed By: #### SRAVANI UMICRO #### [facility] [address] [place] [address] Dr. Oh TrotterLEUKOCYTESNegativeNormalNEGATIVESelect Medical [facility], AvonComment on above:Performed By: #### SRAVANI UMICRO #### [facility] [address] [place] [address] Dr. Oh Eng Ql (U)NegativeNormalNEGATIVEThe Parkwood HospitalComment on above:Performed By: #### OSVALDO LASSITER #### [facility] [address] [place] [address] Dr. Oh TrotterpH (U)6.0 [pH]Normal5-9The Parkwood HospitalComment on above: Performed By: #### OSVALDO LASSITER #### [facility] [address] [place] [address] Dr. Oh TrotterSPEC GRAVITY1.422Tpiyem6.005-<=1.025The Parkwood HospitalComment on above:Performed By: #### OSVALDO LASSITER #### [facility] [address] [place] [address] Dr. Oh TrotterUA PROTEINNegativeNormalNEGATIVE/ TRACEThe [facility] Comment on above:Performed By: #### OSVALDO LASSITER #### [facility] [address] [place] [address] Dr. Oh Castellanos MICRO INDINDICATEDNormalThe Parkwood HospitalComment on above: Performed By: #### OSVALDO LASSITER #### [facility] [address] [place] [address] Dr. Oh TrotterUrobilinogen Qn (U)0.2 {Federico'U}/dLNormal0.2 - 1.0The Parkwood HospitalComment on above:Performed By: #### OSVALDO LASSITER #### [facility] [address] [place] [address] Dr. Oh TrotterLIPASEon 55-58-9190Hslnwb [Catalytic activity/Vol]125.0 U/LNormal 73.0-393.0The [facility]wood HospitalComment on above:Performed By: #### LIPA, CMP, HSTROPN #### [facility] [address] [place] [address] Dr. Oh TrotterPROF 14(COMP METB)on 59-94-0392Qknlsoz [Mass/Vol]3.8 g/dLNormal 3.4-5.0The [facility] HospitalComment on above:Performed By: #### LIPA, CMP, HSTROPN #### [facility] [address] [place] [address] Dr. Oh TrotterAlbumin/Globulin [Mass ratio]0.8 {ratio}NormalThe Parkwood HospitalComment on above:Performed By: #### LIPA, CMP, HSTROPN #### [facility] [address] [place] [address] Dr. Oh Sheets [Catalytic activity/Vol]77 U/NPefbyk47-728Adv [facility] HospitalComment on above:Performed By: #### LIPA, CMP, HSTROPN #### [facility] [address] [place] [address] Dr. Oh Negron [Catalytic activity/Vol]39 U/KCsuvmi71-59Snr [facility] HospitalComment on above:Performed By: #### LIPA, CMP, HSTROPN #### [facility] [address] [place] [address] Dr. Oh Claire gap [Moles/Vol]9.3 mmol/LNormalThe [facility]wood HospitalComment on above:Performed By: #### LIPA, CMP, HSTROPN #### [facility] [address] [place] [address] Dr. Oh Milner [Catalytic activity/Vol]21 U/BWbpnba58-35Gwr [facility] HospitalComment on above:Performed By: #### LIPA, CMP, HSTROPN #### [facility] [address] [place] [address] Dr. Oh TrotterBilirubin [Mass/Vol]0.4 mg/dLNormal0.2-1.0The [facility] Comment on above:Performed By: #### LIPA, CMP, HSTROPN #### [facility] [address] [place] [address] Dr. Oh TrotterCalcium [Mass/Vol]9.2 mg/dLNormal8.5-10.1The [facility] Comment on above:Performed By: #### LIPA, CMP, HSTROPN #### [facility] [address] [address] [address] Oh TrotterChloride [Moles/Vol]102 mmol/AAucgxf97-155AnbSelect Medical [facility] [place] Comment on above:Performed By: #### LIPA, CMP, HSTROPN #### [facility] [address] [address] [address] Oh TrotterCO2 [Moles/Vol]26.6 mmol/TBtjbpt03.0-32.0[facility] Comment on above:Performed By: #### LIPA, CMP, HSTROPN #### [facility] [address] [place] [address] Dr. Oh TrotterCreatinine [Mass/Vol]1.08 mg/dLNormal0.70-1.30[facility], AvonComment on above:Performed By: #### LIPA, CMP, HSTROPN #### [facility] [address] [place] [address] Dr. Oh HuangGFR-AF CENTRAL AFRICAN>60Normal>=60[facility], AvonComment on above:Performed By: #### LIPA, CMP, HSTROPN #### [facility] [address] [place] [address] Dr. Oh HuangGFR-NON AF CENTRAL AFRICAN>60Normal>=60[facility], AvonComment on above:Performed By: #### LIPA, CMP, HSTROPN #### [facility] [address] [address] [address] Oh TrotterGlobulin (S) [Mass/Vol]4.7 g/dLNormalThe Parkwood HospitalComment on above:Performed By: #### LIPA, CMP, HSTROPN #### [facility] [address] [place] [address] Dr. Oh TrotterGlucose [Mass/Vol]103 mg/oWFbgeqs97-682TljSelect Medical [facility] [place] Comment on above:Performed By: #### LIPA, CMP, HSTROPN #### [facility] [address] [address] [address] Oh TrotterPotassium [Moles/Vol]3.9 mmol/LNormal3.5-5.1The [facility] Comment on above:Performed By: #### LIPA, CMP, HSTROPN #### [facility] [address] [place] [address] Dr. Oh TrotterProtein [Mass/Vol]8.5 g/dLCritically high6.4-8.2The [facility] HospitalComment on above:Performed By: #### LIPA, CMP, HSTROPN #### [facility] [address] [place] [address] Dr. Oh TrotterSodium [Moles/Vol]134 mmol/LCritically wup808-381Jbn [facility] HospitalComment on above:Performed By: #### LIPA, CMP, HSTROPN #### [facility] [address] [place] [address] Dr. Oh TrotterUrea nitrogen [Mass/Vol]20.0 mg/dLCritically high7.0-18.0The [facility] HospitalComment on above:Performed By: #### LIPA, CMP, HSTROPN #### [facility] [address] [place] [address] Dr. Oh Amador nitrogen/Creatinine [Mass ratio]18.5 mg/mgNoAkron Children's HospitalComment on above:Performed By: #### LIPA, CMP, HSTROPN #### [facility] [address] [place] [address] Dr. Oh TrotterPROTIMEon 62-79-0315OHX Coag (PPP) [Relative time]1.00 {INR} NormalThe Parkwood HospitalComment on above:Performed By: #### PTT, PT #### [facility] [address] [place] [address] Dr. Oh Coy GUIDELINESSEE BELOWOhioHealth Pickerington Methodist HospitalComment on above:Result Comment: DESIRED INR: 2.0 - 3.0 CONDITIONS NOT LISTED BELOW 2.5 - 3.5 FOR PROSTHETIC HEART VALVE REPLACEMENT 2.5 - 3.5 RECURRENT THROMBOSIS Performed By: #### PTT, PT #### [facility] [address] [place] [address] Dr. Oh Young Coag (PPP) [Time]10.8 sNormal9.0-11.6The [facility] Comment on above:Performed By: #### PTT, PT #### [facility] [address] [place] [address] Dr. Oh Lozoya [id number] Coag (Bld) [Time]27.9 pKpirix80.3-36.2The [facility] HospitalComment on above:Performed By: #### PTT, PT #### [facility] [address] [place] [address] Dr. Oh Miller, HIGH SENSITIVITYon 08-04-9012QZBKAK5.9 pg/mLNormal 4.0-76.1The [facility] HospitalComment on above:Result Comment: CUT-OFF POINTS HAVE BEEN ESTABLISHED BASED ON THE FOURTH UNIVERSAL DEFINITIONS OF MYOCARDIAL INFARCTION. THE UPPER REFERENCE LIMIT (URL) OF TROPONIN, DEFINED THE 99TH PERCENTILE OF cTnI DISTRIBUTION IN A REFERENCE POPULATION, HAS BEEN CONFIRMED THE DECISION THRESHOLD FOR [place] DIAGNOSIS.Performed By: #### LIPA, CMP, HSTROPN #### [facility] [address] [place] [address] Dr. Oh DIOR ONLYon 86-80-9824SIFEFVFFVHRI SEENNormalNONE SEENSelect Medical [facility] Hospital, AvonComment on above:Performed By: #### MATHIEU LASSITERRO #### [facility] [address] [place] [address] Dr. Oh Bhat identified Cx Nom (U)NOT INDICATEDNormalThe Parkwood HospitalComment on above:Performed By: #### AUBRIE LASSITERICRO #### [facility] [address] [place] [address] Dr. Oh Dudley SEENNormalNONE SEENSelect Medical [facility] Hospital, AvonComment on above:Performed By: #### MATHIEU LASSITERRO #### [facility] [address] [place] [address] Dr. Yilan ChangCrystals LM Nom (Urine sed)NONE SEENNormalNONE SEENThe Parkwood HospitalComment on above:Performed By: #### ERUR, UMICRO #### [facility] [address] [place] [address] Dr. Casiano ChangEpithelial cells LM Ql (Urine sed)FEWAbnormalNONE SEEN /RAREThe Parkwood HospitalComment on above:Performed By: #### SHAUNR, UMICRO #### [facility] [address] [place] [address] Dr. Oh TrotterMUCOUSMODERATEAbnormalNONE SEENThe [facility] HospitalComment on above:Performed By: #### SRAVANI, UMICRO #### [facility] [address] [place] [address] Dr. Oh TrotterGugqnLRM6-3Apbzdi3-0Esv [facility] HospitalComment on above:Performed By: #### SRAVANI, UMICRO #### [facility] [address] [place] [address] Dr. Oh TrotterWBCNONE SEENNormalNONE SEENThe [facility] HospitalComment on above: Performed By: #### SRAVANI, UMICRO #### [facility] [address] [place] [address] Dr. Oh TrotterXR ABD FLAT UP_PA German [id number] ABD FLAT UP_PA CHEXAM: Acute abdomen series: HISTORY: Chest pain, worse [...] Electronically authenticated by: LUCY JEWELL Date: 2022-03-06 15:55[facility] HospitalXR CSPINE 2_3 VIEWSon [id number] CSPINE 2_3 VIEWSEXAM: C-spine HISTORY: Neck pain radiating into the [...] Electronically authenticated by: LUCY JEWELL Date: 2022-03-06 15:54NormalThFlower Hospital AUTO DIFFon [id number] #0.0 103/ulNormal0.0-0.1[facility], AvonComment on above:Performed By: #### LIPA, CMP, HSTROPN #### [facility] [address] [place] [address] Dr. Oh TrotterBasophils/100 WBC (Bld)0.2 %Normal0.2-2.0[facility] Comment on above:Performed By: #### LIPA, CMP, HSTROPN #### [facility] [address] [place] [address] Dr. Oh Shaw #0.1 103/ulNormal0.0-0.7The [facility] HospitalComment on above: Performed By: #### LIPA, CMP, HSTROPN #### [facility] [address] [place] [address] Dr. Oh Huangosinophils/100 WBC (Bld)1.0 %Normal0.9-7.0[facility] Comment on above:Performed By: #### LIPA, CMP, HSTROPN #### [facility] [address] [place] [address] Dr. Oh Huangrythrocyte distribution width (RBC) [Ratio]13.0 %Gvphzl32.0-15.0 [facility], AvonComment on above:Performed By: #### LIPA, CMP, HSTROPN #### [facility] [address] [place] [address] Dr. Oh TrotterHematocrit (Bld) [Volume fraction]46.6 %Xydwnr54.0-54.0The [facility] HospitalComment on above:Performed By: #### LIPA, CMP, HSTROPN #### [facility] [address] [place] [address] Dr. Oh TrotterHemoglobin (Bld) [Mass/Vol]15.8 g/lRMziutf90.0-18.0The [facility] HospitalComment on above:Performed By: #### LIPA, CMP, HSTROPN #### [facility] [address] [place] [address] Dr. Oh Malave #0.02 10e3/ulNormal0.00-0.03The [facility] HospitalComment on above:Performed By: #### LIPA, CMP, HSTROPN #### [facility] [address] [place] [address] Dr. Oh Malave %0.2 %Normal0.0-0.5The [facility] HospitalComment on above: Performed By: #### LIPA, CMP, HSTROPN #### [facility] [address] [place] [address] Dr. Oh Aldana #1.6 103/ulNormal1.2-3.8The [facility] HospitalComment on above:Performed By: #### LIPA, CMP, HSTROPN #### [facility] [address] [place] [address] Dr. Oh Orellanahocytes/100 WBC (Bld)15.3 %Critically low20.5-60.0The [facility] HospitalComment on above:Performed By: #### LIPA, CMP, HSTROPN #### [facility] [address] [place] [address] Dr. Oh SaldanaUAL DIFF REQNONormalThe Parkwood HospitalComment on above: Performed By: #### LIPA, CMP, HSTROPN #### [facility] [address] [place] [address] Dr. Oh Valentin (RBC) [Entitic mass]30.1 niDjvjew16.9-34.0The [facility] HospitalComment on above:Performed By: #### LIPA, CMP, HSTROPN #### [facility] [address] [place] [address] Dr. Oh Lau (RBC) [Mass/Vol]33.9 g/nKEzjfpz40.9-35.2The [facility] HospitalComment on above:Performed By: #### LIPA, CMP, HSTROPN #### [facility] [address] [place] [address] Dr. Oh Lua (RBC) [Entitic vol]88.8 qQNmxouu77.0-94.0The [facility] HospitalComment on above:Performed By: #### LIPA, CMP, HSTROPN #### [facility] [address] [place] [address] Dr. Oh Johnson #0.7 103/ulNormal0.3-0.8The [facility] HospitalComment on above:Performed By: #### LIPA, CMP, HSTROPN #### [facility] [address] [place] [address] Dr. Oh Cedeñoocytes/100 WBC (Bld)6.8 %Normal1.7-12.0[facility] Comment on above:Performed By: #### LIPA, CMP, HSTROPN #### [facility] [address] [place] [address] Dr. Oh Cruz #7.9 103/ulCritically high1.4-6.5The [facility] Comment on above:Performed By: #### LIPA, CMP, HSTROPN #### [facility] [address] [place] [address] Dr. Oh Velazquezutrophils/100 WBC (Bld)76.5 %Critically high43.0-75.0The [facility] HospitalComment on above:Performed By: #### LIPA, CMP, HSTROPN #### [facility] [address] [place] [address] Dr. Oh Holmanlet mean volume (Bld) [Entitic vol]9.5 fLNormal9.5-13.5The [facility] HospitalComment on above:Performed By: #### LIPA, CMP, HSTROPN #### [facility] [address] [place] [address] Dr. Oh TrotterPLT191 103/fqYfbppq480-452Tjf [facility] HospitalComment on above: Performed By: #### LIPA, CMP, HSTROPN #### [facility] [address] [place] [address] Dr. Oh TrotterRBC5.25 106/ulNormal4.70-6.10The [facility] HospitalComment on above:Performed By: #### LIPA, CMP, HSTROPN #### [facility] [address] [place] [address] Dr. Oh TrotterWBC10.4 103/ulNormal4.0-11.0The [facility] HospitalComment on above:Performed By: #### LIPA, CMP, HSTROPN #### [facility] [address] [place] [address] Dr. Oh TrotterPROF CHEM 8 (BAS METB)on 50-65-9834Kdjrb gap [Moles/Vol]9.7 mmol/LNormalThe [facility] HospitalComment on above:Performed By: #### LIPA, CMP, HSTROPN #### [facility] [address] [place] [address] Dr. Oh TrotterCalcium [Mass/Vol]8.9 mg/dLNormal8.5-10.1The [facility] Comment on above:Performed By: #### LIPA, CMP, HSTROPN #### [facility] [address] [place] [address] Dr. Oh TrotterChloride [Moles/Vol]102 mmol/YKcqyfq12-903Nwe [facility] Comment on above:Performed By: #### LIPA, CMP, HSTROPN #### [facility] [address] [place] [address] Dr. Oh TrotterCO2 [Moles/Vol]29.1 mmol/JTmmidj76.0-32.0[facility] Comment on above:Performed By: #### LIPA, CMP, HSTROPN #### [facility] [address] [place] [address] Dr. Oh TrotterCreatinine [Mass/Vol]1.10 mg/dLNormal0.70-1.30The [facility] HospitalComment on above:Performed By: #### LIPA, CMP, HSTROPN #### [facility] [address] [place] [address] Dr. Oh HuangGFR-AF CENTRAL AFRICAN>60Normal>=60The [facility] HospitalComment on above:Performed By: #### LIPA, CMP, HSTROPN #### [facility] [address] [place] [address] Dr. Oh HuangGFR-NON AF CENTRAL AFRICAN>60Normal>=60The [facility] HospitalComment on above:Performed By: #### LIPA, CMP, HSTROPN #### [facility] [address] [place] [address] Dr. Oh TrotterGlucose [Mass/Vol]114 mg/dLCritically nzzc42-478Mjo [facility] HospitalComment on above:Performed By: #### LIPA, CMP, HSTROPN #### [facility] [address] [place] [address] Dr. Oh TrotterPotassium [Moles/Vol]3.8 mmol/LNormal3.5-5.1[facility] Comment on above:Performed By: #### LIPA, CMP, HSTROPN #### [facility] [address] [place] [address] Dr. Oh TrotterSodium [Moles/Vol]137 mmol/UTovril907-574Skf [facility] Comment on above:Performed By: #### LIPA, CMP, HSTROPN #### [facility] [address] [place] [address] Dr. Oh TrotterUrea nitrogen [Mass/Vol]10.0 mg/dLNormal7.0-18.0The [facility] HospitalComment on above:Performed By: #### LIPA, CMP, HSTROPN #### [facility] [address] [address] [address] Oh Amador nitrogen/Creatinine [Mass ratio]9.1 mg/mgNormalThe [facility] HospitalComment on above:Performed By: #### LIPA, CMP, HSTROPN #### [facility] [address] [address] [address] Oh Chris SUKUMAR ADMITon [id number] [Catalytic activity/Vol]97 U/L Jbqelq62-274Hze [facility] Centerment on above:Performed By: #### LIPA, CMP, HSTROPN #### [facility] [address] [address] [address] Oh Garcias.MB [Mass/Vol]0.75 ng/mLNormal<=3.60The [facility] Comment on above:Performed By: #### LIPA, CMP, HSTROPN #### [facility] [address] [place] [address] Dr. Oh TrotterHSTROP4.4 pg/mLNormal4.0-76.1The [facility] on above:Result Comment: CUT-OFF POINTS HAVE BEEN ESTABLISHED BASED ON THE FOURTH UNIVERSAL DEFINITIONS OF MYOCARDIAL INFARCTION. THE UPPER REFERENCE LIMIT (URL) OF TROPONIN, DEFINED THE 99TH PERCENTILE OF cTnI DISTRIBUTION IN A REFERENCE POPULATION, HAS BEEN CONFIRMED THE DECISION THRESHOLD FOR [place] DIAGNOSIS.Performed By: #### LIPA, CMP, HSTROPN #### [facility] [address] [place] [address] Dr. Oh TrotterMYO54 ng/pFVtivyc22-43Qtf [facility] Centerment on above: Performed By: #### LIPA, CMP, HSTROPN #### [facility] [address] [place] [address] Dr. Oh Bonilla AUTO DIFFon [id number] #0.0 103/ulNormal0.0-0.1The [facility] on above:Performed By: #### PTT, PT #### [facility] [address] [place] [address] Dr. Oh TrotterBasophils/100 WBC (Bld)0.1 %Critically low0.2-2.0The [facility] on above:Performed By: #### PTT, PT #### [facility] [address] [place] [address] Dr. Oh Shaw #0.0 103/ulNormal0.0-0.7The [facility] HospitalComment on above: Performed By: #### PTT, PT #### [facility] [address] [place] [address] Dr. Oh Huangosinophils/100 WBC (Bld)0.3 %Critically low0.9-7.0The [facility] on above:Performed By: #### PTT, PT #### [facility] [address] [place] [address] Dr. Oh Huangrythrocyte distribution width (RBC) [Ratio]12.5 %Nvorrs94.0-15.0 [facility] on above:Performed By: #### PTT, PT #### [facility] [address] [place] [address] Dr. Oh TrotterHematocrit (Bld) [Volume fraction]47.1 %Nifcaf08.0-54.0The [facility] on above:Performed By: #### PTT, PT #### [facility] [address] [place] [address] Dr. Oh TrotterHemoglobin (Bld) [Mass/Vol]16.7 g/tOZfetyk17.0-18.0The [facility] on above:Performed By: #### PTT, PT #### [facility] [address] [place] [address] Dr. Oh Malave #0.02 10e3/ulNormal0.00-0.03The [facility] on above:Performed By: #### PTT, PT #### [facility] [address] [place] [address] Dr. Oh TrotterIG %0.3 %Normal0.0-0.5The [facility] HospitalComment on above: Performed By: #### PTT, PT #### [facility] [address] [place] [address] Dr. Oh Aldana #2.3 103/ulNormal1.2-3.8The [facility] HospitalComment on above:Performed By: #### PTT, PT #### [facility] [address] [place] [address] Dr. Oh Orellanahocytes/100 WBC (Bld)31.7 %Vgqbnu38.5-60.0The Parkwood HospitalComment on above:Performed By: #### PTT, PT #### [facility] [address] [place] [address] Dr. Oh Smith DIFF REQNONormalThe Parkwood HospitalComment on above: Performed By: #### PTT, PT #### [facility] [address] [place] [address] Dr. Oh Valentin (RBC) [Entitic mass]29.9 gcGjedhq36.9-34.0The [facility]wood HospitalComment on above:Performed By: #### PTT, PT #### [facility] [address] [place] [address] Dr. Oh Lau (RBC) [Mass/Vol]35.5 g/dLCritically high29.9-35.2The [facility]wood HospitalComment on above:Performed By: #### PTT, PT #### [facility] [address] [place] [address] Dr. Oh Sahni (RBC) [Entitic vol]84.4 nYUsivgx08.0-94.0The [facility] HospitalComment on above:Performed By: #### PTT, PT #### [facility] [address] [place] [address] Dr. Oh Johnson #0.4 103/ulNormal0.3-0.8The [facility] HospitalComment on above:Performed By: #### PTT, PT #### [facility] [address] [place] [address] Dr. Oh Cedeñoocytes/100 WBC (Bld)4.9 %Normal1.7-12.0[facility] Comment on above:Performed By: #### PTT, PT #### [facility] [address] [place] [address] Dr. Oh Cruz #4.6 103/ulNormal1.4-6.5The [facility] HospitalComment on above:Performed By: #### PTT, PT #### [facility] [address] [place] [address] Dr. Oh Velazquezutrophils/100 WBC (Bld)62.7 %Vsxvlc41.0-75.0The [facility] HospitalComment on above:Performed By: #### PTT, PT #### [facility] [address] [place] [address] Dr. Oh Holmanlet mean volume (Bld) [Entitic vol]10.3 fLNormal9.5-13.5The [facility] HospitalComment on above:Performed By: #### PTT, PT #### [facility] [address] [place] [address] Dr. Oh TrotterPLT225 103/yiIkugrt745-049Psz [facility] HospitalComment on above: Performed By: #### PTT, PT #### [facility] [address] [place] [address] Dr. Oh TrotterRBC5.58 106/ulNormal4.70-6.10The [facility] HospitalComment on above:Performed By: #### PTT, PT #### [facility] [address] [place] [address] Dr. Oh TrotterWBC7.3 103/ulNormal4.0-11.0The [facility] HospitalComment on above: Performed By: #### PTT, PT #### [facility] [address] [place] [address] Dr. Oh Delgado-DIMERon 18-93-6636S-DIMER<0.19Normal<=0.59The [facility] Comment on above:Performed By: #### PTT, PT #### [facility] [address] [place] [address] Dr. Oh TrotterD-DIMER COMMENTSSEE BELOWNormKettering Health Troy on above:Result Comment: Increases in D-Dimer concentration observed with thromboembolic [...] stress, and generalized hospitalization. Performed By: #### PTT, PT #### [facility] [address] [place] [address] Dr. Oh TrotterLIPASEon 46-19-2348Fvxyfl [Catalytic activity/Vol]127.0 U/LNormal 73.0-393.0The [facility] Centerment on above:Performed By: #### LIPA, CMP, HSTROPN #### [facility] [address] [place] [address] Dr. Oh TrotterPROF 14(COMP METB)on 06-86-8656Cpphscj [Mass/Vol]4.0 g/dLNormal 3.4-5.0The [facility] on above:Performed By: #### LIPA, CMP, HSTROPN #### [facility] [address] [place] [address] Dr. Oh TrotterAlbumin/Globulin [Mass ratio]0.9 {ratio}NormalThe [facility] on above:Performed By: #### LIPA, CMP, HSTROPN #### [facility] [address] [place] [address] Dr. Oh Sheets [Catalytic activity/Vol]73 U/TDubuoz89-391Jbt [facility] on above:Performed By: #### LIPA, CMP, HSTROPN #### [facility] [address] [place] [address] Dr. Oh Negron [Catalytic activity/Vol]45 U/RXduqrl16-61Ewj [facility] HospitalComment on above:Performed By: #### LIPA, CMP, HSTROPN #### [facility] [address] [address] [address] Oh TrotterAnion gap [Moles/Vol]15.4 mmol/LNormalSelect [facility] Comment on above:Performed By: #### LIPA, CMP, HSTROPN #### [facility] [address] [address] [address] Oh TrotterAST [Catalytic activity/Vol]25 U/QBdilzx58-96Dce [facility] HospitalComment on above:Performed By: #### LIPA, CMP, HSTROPN #### [facility] [address] [place] [address] Dr. Oh TrotterBilirubin [Mass/Vol]0.9 mg/dLNormal0.2-1.0[facility] Comment on above:Performed By: #### LIPA, CMP, HSTROPN #### [facility] [address] [place] [address] Dr. Oh TrotterCalcium [Mass/Vol]9.3 mg/dLNormal8.5-10.1[facility] Comment on above:Performed By: #### LIPA, CMP, HSTROPN #### [facility] [address] [place] [address] Dr. Oh TrotterChloride [Moles/Vol]103 mmol/ALemmvz65-155PhgSelect Medical [facility] Clinic [facility] [place] Comment on above:Performed By: #### LIPA, CMP, HSTROPN #### [facility] [address] [place] [address] Dr. Oh TrotterCO2 [Moles/Vol]20.4 mmol/LCritically low21.0-32.0The [facility] HospitalComment on above:Performed By: #### LIPA, CMP, HSTROPN #### [facility] [address] [place] [address] Dr. Oh TrotterCreatinine [Mass/Vol]1.17 mg/dLNormal0.70-1.30The [facility] HospitalComment on above:Performed By: #### LIPA, CMP, HSTROPN #### [facility] [address] [address] [address] Oh HuangGFR-AF CENTRAL AFRICAN>60Normal>=60The [facility] HospitalComment on above:Performed By: #### LIPA, CMP, HSTROPN #### [facility] [address] [address] [address] Oh HuangGFR-NON AF CENTRAL AFRICAN>60Normal>=60The [facility] HospitalComment on above:Performed By: #### LIPA, CMP, HSTROPN #### [facility] [address] [place] [address] Dr. Oh TrotterGlobulin (S) [Mass/Vol]4.6 g/dLNormalThe [facility] HospitalComment on above:Performed By: #### LIPA, CMP, HSTROPN #### [facility] [address] [place] [address] Dr. Oh TrotterGlucose [Mass/Vol]127 mg/dLCritically nzgt07-120Kev [facility] HospitalComment on above:Performed By: #### LIPA, CMP, HSTROPN #### [facility] [address] [place] [address] Dr. Oh TrotterPotassium [Moles/Vol]3.8 mmol/LNormal3.5-5.1The [facility] Comment on above:Performed By: #### LIPA, CMP, HSTROPN #### [facility] [address] [place] [address] Dr. Oh TrotterProtein [Mass/Vol]8.6 g/dLCritically high6.4-8.2The [facility] HospitalComment on above:Performed By: #### LIPA, CMP, HSTROPN #### [facility] [address] [place] [address] Dr. Oh TrotterSodium [Moles/Vol]135 mmol/LCritically xbc054-735Lkz [facility] HospitalComment on above:Performed By: #### LIPA, CMP, HSTROPN #### [facility] [address] [address] [address] Oh TrotterUrea nitrogen [Mass/Vol]12.0 mg/dLNormal7.0-18.0The [facility] HospitalComment on above:Performed By: #### LIPA, CMP, HSTROPN #### [facility] [address] [address] [address] Oh TrotterUrea nitrogen/Creatinine [Mass ratio]10.3 mg/mgNoAkron Children's HospitalComment on above:Performed By: #### LIPA, CMP, HSTROPN #### [facility] [address] [address] [address] Oh TrotterXR CHEST 1 Von 19-33-1321SA CHEST 1 VEXAM: XR CHEST 1 V at 1220 hours HISTORY: CHEST PAIN, UNSPECIFIED for [...] Electronically authenticated by: GALDINO ARROYO Date: 2021-10-16 13:09[facility] HospitalBNR[facility] 70-91-0197Kvqtdlilohx peptide B (Bld) [Mass/Vol]9.0 pg/mL Normal<=450.0The [facility] on above:Performed By: #### HSTROPN, TSH, BNP, CMP #### [facility] [address] [place] [address] Dr. Oh TrotterCBC AUTO DIFFon 06-70-7805JLLE #0.0 103/ulNormal0.0-0.1The [facility] on above:Performed By: #### LIPA, CMP, HSTROPN #### [facility] [address] [place] [address] Dr. Oh TrotterBasophils/100 WBC (Bld)0.1 %Critically low0.2-2.0The [facility] HospitalComment on above:Performed By: #### LIPA, CMP, HSTROPN #### [facility] [address] [place] [address] Dr. Oh Shaw #0.1 103/ulNormal0.0-0.7The [facility] on above: Performed By: #### LIPA, CMP, HSTROPN #### [facility] [address] [place] [address] Dr. Oh Huangosinophils/100 WBC (Bld)0.6 %Critically low0.9-7.0The [facility] on above:Performed By: #### LIPA, CMP, HSTROPN #### [facility] [address] [place] [address] Dr. Oh Huangrythrocyte distribution width (RBC) [Ratio]12.5 %Augjhf47.0-15.0 The [facility] on above:Performed By: #### LIPA, CMP, HSTROPN #### [facility] [address] [place] [address] Dr. Oh TrotterHematocrit (Bld) [Volume fraction]48.3 %Dtxlfa45.0-54.0The [facility] on above:Performed By: #### LIPA, CMP, HSTROPN #### [facility] [address] [place] [address] Dr. Oh TrotterHemoglobin (Bld) [Mass/Vol]16.7 g/pUThgqur43.0-18.0The [facility] on above:Performed By: #### LIPA, CMP, HSTROPN #### [facility] [address] [place] [address] Dr. Oh Malave #0.01 10e3/ulNormal0.00-0.03The [facility] on above:Performed By: #### LIPA, CMP, HSTROPN #### [facility] [address] [place] [address] Dr. Oh Malave %0.1 %Normal0.0-0.5The [facility] HospitalComment on above: Performed By: #### LIPA, CMP, HSTROPN #### [facility] [address] [place] [address] Dr. Oh Aldana #3.5 103/ulNormal1.2-3.8The [facility] on above:Performed By: #### LIPA, CMP, HSTROPN #### [facility] [address] [place] [address] Dr. Oh Orellanahocytes/100 WBC (Bld)38.8 %Elpshu25.5-60.0The [facility] HospitalComment on above:Performed By: #### LIPA, CMP, HSTROPN #### [facility] [address] [place] [address] Dr. Oh Smith DIFF REQNONormalThe [facility] HospitalComment on above: Performed By: #### LIPA, CMP, HSTROPN #### [facility] [address] [place] [address] Dr. Oh Lau (RBC) [Entitic mass]29.3 voBigelm02.9-34.0The [facility] Centerment on above:Performed By: #### LIPA, CMP, HSTROPN #### [facility] [address] [place] [address] Dr. Oh Lau (RBC) [Mass/Vol]34.6 g/aTEbyhuh36.9-35.2The [facility] HospitalComment on above:Performed By: #### LIPA, CMP, HSTROPN #### [facility] [address] [place] [address] Dr. Oh Lau (RBC) [Entitic vol]84.9 qRVvsrwo58.0-94.0The [facility] on above:Performed By: #### LIPA, CMP, HSTROPN #### [facility] [address] [place] [address] Dr. Oh Johnson #0.5 103/ulNormal0.3-0.8The [facility] Centerment on above:Performed By: #### LIPA, CMP, HSTROPN #### [facility] [address] [address] [address] Oh Cedeñoocytes/100 WBC (Bld)5.4 %Normal1.7-12.0[facility] Comment on above:Performed By: #### LIPA, CMP, HSTROPN #### [facility] [address] [place] [address] Dr. Oh VelazquezUT #4.9 103/ulNormal1.4-6.5The [facility] Centerment on above:Performed By: #### LIPA, CMP, HSTROPN #### [facility] [address] [place] [address] Dr. Oh Velazquezutrophils/100 WBC (Bld)55.0 %Ypmzak12.0-75.0The [facility] Centerment on above:Performed By: #### LIPA, CMP, HSTROPN #### [facility] [address] [place] [address] Dr. Oh TrotterPlatelet mean volume (Bld) [Entitic vol]9.7 fLNormal9.5-13.5The [facility] Centerment on above:Performed By: #### LIPA, CMP, HSTROPN #### [facility] [address] [place] [address] Dr. Oh TrotterPLT227 103/sjIhjbah976-433Luz [facility] Centerment on above: Performed By: #### LIPA, CMP, HSTROPN #### [facility] [address] [place] [address] Dr. Oh TrotterRBC5.69 106/ulNormal4.70-6.10The [facility] Centerment on above:Performed By: #### LIPA, CMP, HSTROPN #### [facility] [address] [place] [address] Dr. Oh TrotterWBC8.9 103/ulNormal4.0-11.0The [facility] on above: Performed By: #### LIPA, CMP, HSTROPN #### [facility] [address] [address] [address] Oh Delgado-DIMERon 33-61-2361I-DIMER0.19 mg/L FEUNormal<=0.59The [facility] on above:Performed By: #### LIPA, CMP, HSTROPN #### [facility] [address] [place] [address] Dr. Oh Delgado-DIMER COMMENTSSEE [facility] on above:Result Comment: Increases in D-Dimer concentration observed with thromboembolic [...] stress, and generalized hospitalization. Performed By: #### LIPA, CMP, HSTROPN #### [facility] [address] [place] [address] Dr. Oh TrotterPROF 14(COMP METB)on 36-25-3112Mfveqcb [Mass/Vol]3.9 g/dLNormal 3.4-5.0The [facility] on above:Performed By: #### HSTROPN, TSH, BNP, CMP #### [facility] [address] [place] [address] Dr. Oh TrotterAlbumin/Globulin [Mass ratio]0.8 {ratio}NormalThe [facility] on above:Performed By: #### HSTROPN, TSH, BNP, CMP #### [facility] [address] [place] [address] Dr. Oh Sheets [Catalytic activity/Vol]73 U/DFqhvms77-141BbrAdams County Regional Medical Center on above:Performed By: #### HSTROPN, TSH, BNP, CMP #### [facility] [address] [place] [address] Dr. Oh Negron [Catalytic activity/Vol]48 U/DPxqcqa43-02Qcx [facility] HospitalComment on above:Performed By: #### HSTROPN, TSH, BNP, CMP #### [facility] [address] [address] [address] Oh Smithon gap [Moles/Vol]14.9 mmol/LNormalSelect [facility] [place] Comment on above:Performed By: #### HSTROPN, TSH, BNP, CMP #### [facility] [address] [place] [address] Dr. Oh TrotterAST [Catalytic activity/Vol]22 U/KRrplxi09-19Yeo [facility] HospitalComment on above:Performed By: #### HSTROPN, TSH, BNP, CMP #### [facility] [address] [place] [address] Dr. Oh TrotterBilirubin [Mass/Vol]0.4 mg/dLNormal0.2-1.0[facility] Comment on above:Performed By: #### HSTROPN, TSH, BNP, CMP #### [facility] [address] [place] [address] Dr. Oh TrotterCalcium [Mass/Vol]9.2 mg/dLNormal8.5-10.1[facility] Comment on above:Performed By: #### HSTROPN, TSH, BNP, CMP #### [facility] [address] [address] [address] Oh TrotterChloride [Moles/Vol]102 mmol/JGnxkde28-767Dsw [facility] Comment on above:Performed By: #### HSTROPN, TSH, BNP, CMP #### [facility] [address] [place] [address] Dr. Oh TrotterCO2 [Moles/Vol]23.7 mmol/BRgstuq69.0-32.0The [facility] Comment on above:Performed By: #### HSTROPN, TSH, BNP, CMP #### [facility] [address] [place] [address] Dr. Yilan ChangCreatinine [Mass/Vol]1.14 mg/dLNormal0.70-1.30The [facility] HospitalComment on above:Performed By: #### HSTROPN, TSH, BNP, CMP #### [facility] [address] [address] [address] Oh HuangGFR-AF CENTRAL AFRICAN>60Normal>=60The [facility] HospitalComment on above:Performed By: #### HSTROPN, TSH, BNP, CMP #### [facility] [address] [address] [address] Oh HuangGFR-NON AF CENTRAL AFRICAN>60Normal>=60The [facility] HospitalComment on above:Performed By: #### HSTROPN, TSH, BNP, CMP #### [facility] [address] [place] [address] Dr. Oh TrotterGlobulin (S) [Mass/Vol]4.7 g/dLNormalThe [facility] HospitalComment on above:Performed By: #### HSTROPN, TSH, BNP, CMP #### [facility] [address] [place] [address] Dr. Oh TrotterGlucose [Mass/Vol]120 mg/dLCritically nxkk87-220Qlj [facility] Centerment on above:Performed By: #### HSTROPN, TSH, BNP, CMP #### [facility] [address] [place] [address] Dr. Oh TrotterPotassium [Moles/Vol]3.6 mmol/LNormal3.5-5.1The [facility] Comment on above:Performed By: #### HSTROPN, TSH, BNP, CMP #### [facility] [address] [place] [address] Dr. Oh TrotterProtein [Mass/Vol]8.6 g/dLCritically high6.4-8.2The [facility] HospitalComment on above:Performed By: #### HSTROPN, TSH, BNP, CMP #### [facility] [address] [place] [address] Dr. Oh TrotterSodium [Moles/Vol]137 mmol/PMfqbmg096-307Vdz [facility] Comment on above:Performed By: #### HSTROPN, TSH, BNP, CMP #### [facility] [address] [place] [address] Dr. Oh Amador nitrogen [Mass/Vol]12.0 mg/dLNormal7.0-18.0[facility], AvonComment on above:Performed By: #### HSTROPN, TSH, BNP, CMP #### [facility] [address] [place] [address] Dr. Oh Amador nitrogen/Creatinine [Mass ratio]10.5 mg/mgNoAkron Children's HospitalComment on above:Performed By: #### HSTROPN, TSH, BNP, CMP #### [facility] [address] [place] [address] Dr. Oh Frey 19-57-3942GPB Coag (PPP) [Relative time]0.94 {INR} NormalThe [facility] HospitalComment on above:Performed By: #### LIPA, CMP, HSTROPN #### [facility] [address] [place] [address] Dr. Oh Coy GUIDELINESSEE BELOWOhioHealth Pickerington Methodist HospitalComment on above:Result Comment: DESIRED INR: 2.0 - 3.0 CONDITIONS NOT LISTED BELOW 2.5 - 3.5 FOR PROSTHETIC HEART VALVE REPLACEMENT 2.5 - 3.5 RECURRENT THROMBOSIS Performed By: #### LIPA, CMP, HSTROPN #### [facility] [address] [place] [address] Dr. Oh TrotterPT Coag (PPP) [Time]10.2 sNormal9.0-11.6The [facility] Comment on above:Performed By: #### LIPA, CMP, HSTROPN #### [facility] [address] [place] [address] Dr. Oh Lozoya 41-79-3711cRJU Coag (Bld) [Time]26.6 sDokagr73.3-36.2[facility], AvonComment on above:Performed By: #### LIPA, CMP, HSTROPN #### [facility] [address] [address] [address] Oh Miller, HIGH SENSITIVITYon 23-80-4576LMDFYS0.4 pg/mLCritically low4.0-76.1[facility] on above:Result Comment: CUT-OFF POINTS HAVE BEEN ESTABLISHED BASED ON THE FOURTH UNIVERSAL DEFINITIONS OF MYOCARDIAL INFARCTION. THE UPPER REFERENCE LIMIT (URL) OF TROPONIN, DEFINED THE 99TH PERCENTILE OF cTnI DISTRIBUTION IN A REFERENCE POPULATION, HAS BEEN CONFIRMED THE DECISION THRESHOLD FOR TX DIAGNOSIS.Performed By: #### PTT, PT #### [facility] [address] [place] [address] Dr. Oh Khanna 83-18-6126GHF8.085 uIU/mLNormal0.358-3.740The [facility] on above:Performed By: #### HSTROPN, TSH, BNP, CMP #### [facility] [address] [place] [address] Dr. Oh Reid [facility] BELOWOhioHealth Pickerington Methodist HospitalComment on above: Result Comment: <0.34 UIU/ml HYPERTHYROID 0.34-5.60 UIU/ml EUTHYROID >5.60 UIU/ml HYPOTHYROIDPerformed By: #### HSTROPN, TSH, BNP, CMP #### [facility] [address] [place] [address] Dr. Oh TrotterXR ABD FLAT UP_PA German 04-42-8914TB ABD FLAT UP_PA CHEXAMINATION: XR ABD FLAT UP_PA CH HISTORY: Chest [...] Electronically authenticated by: OTTO POLANCO Date: 2021-09-15 19:35[facility] HospitalXR CHEST 1 Von 95-06-1735JA CHEST 1 VCXR HISTORY: Shortness of breath. COMPARISON: 03/11/2021 TECHNIQUE: [...] Electronically authenticated by: ELIZABETH TURNER Date: 2021-09-06 23:38[facility] Vital Signs Date TimeVital SignValuePerforming XcisqnqunLbodupdp59-04-2657 03:47-0400 Diastolic blood ahadvfgh88 mm[Hg]Nidal Choujaa DO Work Phone: [phone] [place], [place] [address]10-05-2025 03:47-0400 Heart rate88 /minNidal Choujaa DO Work Phone: [phone]10-05-2025 03:47-0400 Respiratory rate14 /minNidal Choujaa DO Work Phone: [phone]10-05-2025 03:47-0400 SaO2% (BldA) [Mass fraction]97 %Nidal Choujaa DO Work Phone: [phone]10-05-2025 03:47-0400 Systolic blood xplypqrv393 mm[Hg]Nidal Choujaa DO Work Phone: [phone] [place], [place] [address]10-05-2025 00:47-0400 Body ajuvkyqpfqw07.7 [degF]Nidal Choujaa DO Work Phone: [phone]10-05-2025 00:46-0400 Body ugstxb833.96 cmNidal Choujaa DO Work Phone: [phone]10-05-2025 00:46-0400 Body dnetkx883.9 kgNidal Choujaa DO Work Phone: [facility]2024 15:26-0400 Blood Pressure LocationMichael NILL [phone]-Rjpcp General Surgery Wcbfkqcz30-64-9048 15:26-0400Diastolic blood dhgohbgf12 mm[Hg]Lucy NILL [phone]-Scrim General Surgery Mncoaryj30-95-4209 15:26-0400Heart rate80 /minMichael NILL [phone]-QjiuhTrumbull Regional Medical Center2024 15:26-0400Respiratory rate16 /minMichael NILL [phone]-SsvkiTrumbull Regional Medical Center2024 15:26-0400Systolic blood imhhurid237 mm[Hg]Lucy NILL [phone]-RzrvqTrumbull Regional Medical Center Encounters Encounter DateEncounter TypeCare ProviderFacilityStart: 02-04-2025 End: 90-08-8671Qqadncrjp department patient visitNidal Choreidjaa DO Work Phone: [phone]-Pxgafzpcf Room Work Phone: Start: 03-14-2024 End: 96-26-0882wnkkrgtnwiTQLMZEXBucyrus Community Hospitaltart: 44-92-0408cqzuhvayymJAYYVCGYD EMERITAGreene Memorial Hospitaltart: 02-29-2024 End: 97-78-2680yhkypnwsmyCWEZXGBSelect Medical Specialty Hospital - Cantontart: 02-23-2024 End: 26-97-6337odmldgvwogUDNHFANSelect Medical Specialty Hospital - Cantontart: 12-21-2023 End: 10-51-2880tcadczdiffZvomudq R NILLFacility:[facility] Hospitaltart: 12-21-2023 End: 43-18-8590Iegcdiz encounter procedureMichael R NILL [phone]-Vswhi General Surgery [place] Start: 08-09-2022 End: 88-24-4894jneioctyndTPRFAR CRAMERFacility:D9Uxqch: 07-28-2022 End: 82-89-8050sobhozdbroSCEMMI CRAMERFacility:H2Pymbs: 06-24-2022 End: 40-52-7295kdcrkqpoqsTB LUCY PAN .Facility:P9Xkmus: 05-23-2022 End: 06-45-4275thddjwosacVVWFXZ CRAMERFacility:T4Seeka: 05-11-2022 End: 78-33-4069lxgpxjtyrdNGQMIQ CRAMERFacility:V8Gmhug: 05-02-2022 End: 55-93-0267jelitbcauaSJXMTU CRAMERFacility:R8Nnveq: 03-30-2022 End: 82-77-5427xpcyzuwzbaQL REGGIE ANDREINABRENDA .Facility:S7Zuoie: 03-06-2022 End: 06-48-6424ygnqvyqkojQQ REGGIE BUTLER .Facility:U0Jymxr: 11-01-2021 End: 62-89-8057vfiiawqgzuJWVBA PARKERFacility:M8Wrmbw: 10-16-2021 End: 15-29-7398sjdgwtshckWIQDKP ANTONI .Facility:G8Sodow: 09-15-2021 End: 84-99-6985yshppaxcxfFO NONE LISTED REQUESTFacility:U0Lagbu: 09-11-2021 End: 92-75-6402qgallkonqkSZNNDZX YAROSHFacility:G2Npzdu: 09-07-2021 End: 22-83-0574frtdjrwczjVJ SUKUMAR NAIRFacility:H1 Procedures DateProcedureProcedure DetailPerforming ClinicianStart: 58-16-5999Wgpstyowmxo Lucy PAN Start: 22-85-7737Qvnimix ablation using fluoroscopy guidanceMichael NILL CholecystectomyMichael NILL Plan of Treatment DateCare ActivityDetailAuthorStart: 47-30-7847Ojpxijos identified in Blood by CultureBlood CultureOhio Valley Surgical Hospitaltart: 52-52-0262PnkeiftpnOhio Valley Surgical Hospitaltart: 90-52-8730ME Head WO contrastOhio Valley Surgical Hospitaltart: [id number] of head without contrastCT head stroke alert [facility]: [id number] consultation with patientPremier Health Miami [facility] Hospital NorthPatient Education Weakness - ED discharge instructionsGalion Hospital Ctr Work Phone: Patient referralGalion Hospital Ctr Work Phone: Immunizations Immunization DateImmunizationNotesCare ProviderFacilityNEGATED: Highlighted row has not occurred!09-52-0694dyrzxwynj virus vaccine, unspecified formulation Lucy PAN [phone]-Tsbed General Surgery [facility] DatePayer CategoryPayerPolicy [id number] 2.0.1.429692.3.57[id number] 2..1.345917.3.57[id number] 2.0.1.560370.3.57[id number] 2.0.1.501104.3.57[id number] 2.0.1.036325.3.57[id number] 2.0.1.467845.3.57[id number] 2.840.1.728991.3.57[id number] 2.840.1.137291.3.57[id number] 2..840.1.816511.3.57[id number] 2.16.840.1.563683.3.57[id number] 2..0.1.000090.3.57[id number] 2..0.1.301878.3.57[id number] 2..0.1.127687.3.57[id number] Social History DateTypeDetailFacilityStart: 41-75-0472Iljiswn smoking statusHeavy tobacco smoker (finding)[facility] HospitalueTobacco smoking statusNever [facility] BellevueSex Assigned At [facility] HospitalTobacco smoking status NHISUnknown if ever smokedBerger Hospital Work Phone: SexMale (finding)[facility] Start: 26-99-8537Zlr Assigned At [facility] Functional Status JgmsBpfaxztgpsDrmvuwEjgmwpxz27-42-6840Yghmuulrmd StatusN/AFLakeHealth [facility] Clinical Notes 06-24-2022 to 03-14-2024 Note Date & VtowHsbvImlypbyt94-15-9021 NoteSubjective Patient ID: Chuck Packer is a 38 [...] the past 36 hour(s)). No follow-ups on file.[facility]10-29-2024 NotePatient: Chuck Packer Procedure Summary Date: 02/29/24 Room / Location: [facility] OPERATING ROOM 02 / [facility] Operating Room Anesthesia Start: 0756 Anesthesia Stop: 0856 Procedures: EXAM UNDER ANESTHESIA, (Rectum) HEMORRHOIDECTOMY, DEBRIDMENT OF ANAL FISSURE (Rectum) Diagnosis: Anal pain (Anal pain [K62.89]) Surgeons: Urbano Rodriguez MD Responsible Provider: Neil Song MD Anesthesia Type: general ASA Status: 3 Anesthesia Type: general Vitals Value Taken Time BP 144/83 02/29/24 0925 Temp 36 02/29/24 0942 Pulse 102 02/29/24 09 Resp 18 02/29/24 0925 SpO2 99 % 02/29/24 09 Anesthesia Post Evaluation Patient location during evaluation: PACU Patient participation: complete - patient participated Level of consciousness: awake and alert Pain score: 3 Pain management: adequate Airway patency: patent Cardiovascular status: acceptable Respiratory status: acceptable Hydration status: acceptable Patient is hemodynamically stable and is able to be discharged from PACU per anesthesia protocol. No notable events documented.[facility]10-29-2024 Note Airway Date/Time: 02/29/2024 8:07 AM Urgency: elective General Information and Staff Patient location during procedure: OR Anesthesiologist: Neil Song MD Resident/INSTITUTIONAL RESEARCH DIRECTOR/CAA: Facundo Rudolph MD Performed: resident/INSTITUTIONAL RESEARCH DIRECTOR/CAA Indications and Patient Condition Indications for airway [...] approach: 1 Number of other approaches attempted: [facility] NotePatient: Chuck Packer Procedure Information Date/Time: 02/29/24 0730 Procedures: EXAM UNDER ANESTHESIA, HEMORRHOIDECTOMY, DEBRIDMENT OF ANAL FISSURE Location: [facility] OPERATING ROOM 02 / [facility] Operating Room Surgeons: Urbano Rodriguez MD Relevant Problems Cardio (+) Migraines (+) Lplrv-Hcigtfgzb-Ehkee syndrome GI (+) GERD (gastroesophageal reflux disease) [...] Depression GERD (gastroesophageal reflux disease) Morbid Obesity Areat-Pucgylcyr-Rlxrd syndrome, treated with ablation as teenager, without [...] discussed with attending and resident. 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 Do not wear perfume, make-up, nail albanian, or lotions on the day of your [...] need to make any changes, please call [phone]. Notify your surgeon if you develop any illness such as a cold, cough, fever, sore throat or vomiting between now and your surgery. Thank you for entrusting us with your care. [facility] Surgical Services TeamOur Lady of [facility]10-23-2024 Note Subjective Patient ID: Chuck Packer is [...] the past 36 hour(s)). No follow-ups on file.[facility]02-22-2023 Note OPERATIVE NOTE OPERATION DATE: 06/24/2022 PREOPERATIVE DIAGNOSIS: Low abdominal and rectal pain, as well as rectal bleeding. POSTOPERATIVE DIAGNOSIS: Prominent rectal veins. PROCEDURE: Colonoscopy to cecum. SURGEON: Lucy Pan M.D. ANESTHESIA: Monitored anesthesia care. ESTIMATED BLOOD [...] room in good condition. CC: Leighann Soriano CNPSelect Medical [facility], [place]onEvaluation + Plan note No data available for this section [facility] Evaluation noteNo assessment information available [facility] Work Phone: Hospital Discharge instructions No data available for this section [facility] Hospital Discharge instructions Additional Instructions follow up with your doctor return if worseFirCleveland Clinic [facility] Work Phone: Progress note No data available for this section [facility] Reason for referral (narrative)No reason for referral information availableBerger Hospital Work Phone: Summary Purpose Family History No Family History Records Found No data available for this section No Family History Records FoundNo Family History Records FoundNo Family History Records Found Advance Directives No Advanced Directives Records Found Advance Directive Response Recorded Date/ Time Advance Directives No September 17 8:45am Chief Complaint and Reason for Visit Chief Complaint Admit Date stroke symptoms February 04, 2025 12 :40am Additional Source Comments (unrecognized sect ion and content) No Status Records FoundNo Status Records FoundNo Status Records FoundNo Status Records Found INFORMATION SOURCE (unrecogn ized section and content) DATE CREATED AUTHOR 08/11/2022 [facility] [place] DATE CREATED AUTHOR AUTHOR'S ORGANIZ ATION 12/27/[address] [facility] DATE CREATED AUTHOR AUTHOR'S ORGANIZ ATION 03/16/2024 [facility] DATE CREATED AUTHOR AUTHOR'S ORGANIZ ATION 02/10/2025 [facility] Patient Care team informatio n (unrecognized section and content) Team Status: Active Member Role Status Dates PHYSICIAN NO FAMILY Primary Care Provider Active Team Status: Inactive Member Role Status Dates Nidhemalatha Davila DO Emergency Provider Active S tart: February 04, 2025 End: February 04, 2025PHYSICIAN NO FAMILYPrimary Care ProviderActiveStart: February 04, 2025 End: February 04, 2025 Goals (unrecognized section and content) Goals may be documented in a n alternate section FOR RECORDS PERTAINING TO PATIENTS WHO ARE [...] BE BASED ON THE PRIMARY CLINICAL RECORDS. [facility]. provides no warranty or guarantee of the accuracy or completeness of information in this document.
--- OUTSIDE RECORDS SUMMARY | 2025-03-17 15:09 | XMS_ITS | Patient Health Record ---
Author Organization [facility] in [place] Address [address] [place] [address] Care Team Providers Care Property Economist Name Role Phone Leighann Soriano Primary Care Provider Martínez Vail [phone] Allergies Allergen (clinical drug ingredient) Drug/Non Drug Allergy documented on EMR Reaction Allergy Type Onset Date Status erythromycin Erythromycin Base hives Drug Allergy Activepenicillin VPenicillin V PotassiumhivesDrug AllergyActive Results Component Value Reference Range Notes CBC AUTO DIFF Reviewed date:01/18/2025 10:48:48 AM Interpretation: Performing Lab: Notes/Report: [facility] , White Blood Count 8.4 4.0-11.0 10 3/uL Red Blood Count5.214.70-6.10 10 6/oTJekvygtxka36.714.0-18.0 g/aBHrlsnibdrc03.7 42.0-54.0 %Mean Corpuscular Euvcls77.980.0-94.0 fLMean Corpuscular Hemoglobin 30.125.9-34.0 pgMean Corpuscular HGB Conc35.929.9-35.2 g/dLRed Cell Distribution Width11.911.0-15.0 %Platelet Hmckg845795-255 10 3/uLMean Platelet Volume9.89.5- 13.5 fLNeutrophils Percent Auto63.743.0-75.0 %Lymphocytes Percent Auto30.520.5- 60.0 %Monocytes Percent Auto5.31.7-12.0 %Eosinophils Percent Auto0.20.9-7.0 % Basophils Percent Auto0.10.2-2.0 %Immature Granulocytes Pct Auto0.20.0-0.5 % Neutrophils Absolute Auto5.41.4-6.5 10 3/uLLymphocytes Absolute Auto2.61.2-3.8 10 3/uLMonocytes Absolute Auto0.50.3-0.8 10 3/uLEosinophils Absolute Auto0.00.0- 0.7 10 3/uLBasophils Absolute Auto0.00.0-0.1 10 3/uLImmature Granulocytes Abs Auto0.020.00-0.03 10 3/uLPerforming Lab:see noteML - [facility] LB DRUG SCREEN RAPID (URINE) Reviewed date:01/18/2025 10:48:48 AM Interpretation: Performing Lab: Notes/Report: [facility] ,Cannabinoid Screen UrinePOSITIVENEGATIVEPhencyclidine Screen UrineNEGATIVE NEGATIVECocaine Screen UrineNEGATIVENEGATIVEMethamphetamines Screen Urine NEGATIVENEGATIVEOpiate Screen UrineNEGATIVENEGATIVEAmphetamine Screen Urine NEGATIVENEGATIVEBenzodiazepines Screen UrineNEGATIVENEGATIVETricyclic Antidepressant UrineNEGATIVENEGATIVEMethadone Screen UrineNEGATIVENEGATIVE Barbiturates Screen UrineNEGATIVENEGATIVEOxycodone Screen UrineNEGATIVENEGATIVE Buprenorphine Screen UrineNEGATIVENEGATIVE DRUG CLASS TEST SYSTEM CUT-OFF CONCENTRATIONS ARE FOLLOWS: AMP (Amphetamine): 500 ng/mL BAR (Barbiturates): 200 ng/mL BZO (Benzodiazepines): 150 ng/mL BUP (Buprenorphine): 10 ng/mL ABBY (Cocaine): 150 ng/mL mAMP (Methamphetamine): 500 ng/mL MTD (Methadone): 200 ng/mL OPI (Opiates): 100 ng/mL OXY (Oxycodone): 100 ng/mL PCP (Phencyclidine): 25 ng/mL THC (Cannabinoids): 50 ng/mL TCA (Trycyclic Antidepressants): 300 ng/mL Performing Lab:see noteML - [facility] LBPROF CHEM 8 (BAS METB) Reviewed date:01/18/2025 10:48:48 AM Interpretation: Performing Lab: Notes/Report: [facility] ,Isssef739436-090 mmol/LPotassium4.03.5-5.1 mmol/YOwkwagij03656-527 mmol/LCarbon Qayhpkv22.221.0-32.0 mmol/LAnion Gap12.2Mvrzgrp82912-376 mg/dLBlood Urea Wovpukkm43.07.0-18.0 mg/dLCreatinine1.070.70-1.30 mg/dLEstimated GFR ( Anupama>60>=60 mL/min/1.73m 2Estimated GFR (Non- Tia>60>=60 mL/min/1.73m 2BUN Creatinine Ratio15.4Moxioyp7.08.5-10.1 mg/dLPerforming Lab:see note - [facility] LBTroponin I High Sensitivity Reviewed date:01/18/2025 10:48:48 AM Interpretation: Performing Lab: Notes/Report: [facility] ,Troponin I High Sensitivity<4.04.0-76.1 pg/mL CUT-OFF POINTS HAVE BEEN ESTABLISHED BASED ON THE FOURTH UNIVERSAL DEFINITION OF MYOCARDIAL INFARCTION. THE UPPER REFERENCE LIMIT (URL) OF TROPONIN, DEFINED THE 99TH PERCENTILE OF cTnI DISTRIBUTION IN A REFERENCE POPULATION, HAS BEEN CONFIRMED THE DECISION THRESHOLD FOR DC DIAGNOSIS. 99TH PERCENTILE = 76.2 PG/ML NOTE: HIGH-SENSITIVITY TROPONIN ASSAY IS NOT INTENDED TO BE USED IN ISOLATION BUT SHOULD BE INTERPRETED IN CONJUNCTION WITH OTHER DIAGNOSTIC AND CLINICAL INFORMATION. Performing Lab:see note - [facility] LBECG 12 lead Reviewed date:01/18/2025 10:48:48 AM Interpretation: Performing Lab: Notes/Report: Source Facility: [place] [address] Electrocardiograph Report Signed Patient: CHUCK PACKER MR#: [id number] : 1985 Acct:[id number] Age/Sex: 39 / M ADM Date: 01/17/25 Loc: ER Attending Dr: Ordering Physician: Kacie Rodriguez Date of Service: 01/17/25 Procedure(s): ECG 12 lead Accession Number(s): [id number] cc: 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 Measurements Intervals [place] Rate: 94 P: 54 OR: 130 QRS: 44 QRSD: 74 T: 49 QT: 342 QTc: 394 Interpretive Statements [address] elevation, probably early repolarization 9130 borderline ECG Compared to ECG 07/30/2024 14:12:13 ST (T wave) deviation now present Early repolarization now present Left ventricular hypertrophy no longer present Electronically Signed On 01-17-2025 17:53:50 EDT by JITENDRA FOOTE M.D. Dictated By: JITENDRA FOOTE Signed By: 01/17/25 0344 DD/ 1339 TD/TT: It Technical Architect:XR chest 1V Reviewed date:01/18/2025 10:48:48 AM Interpretation: Performing Lab: Notes/Report: Source Facility: [place] [address] XRay Report Signed Patient: CHUCK PACKER MR#: [id number] : 1985 Acct:[id number] Age/Sex: 39 / M ADM Date: 01/17/25 Loc: ER Attending Dr: Ordering Physician: Kacie Rodriguez Date of Service: 01/17/25 Procedure(s): XR chest 1V Accession Number(s): [id number] cc: LEIGHANN SORIANO ; Kacie Rodriguez [place] [address] Patient Name: CHUCK PACKER MRN: [id number] date: 1985 Sex: M Assigned Patient Location: ER Current Patient Location: ED.MAIN Accession/Order Number: [id number] Exam Date: 01/17/2025 14:02 Report Date: 01/17/2025 14:48 At the request of: KACIE RIZZO Procedure: XR chest 1V PA CHEST: CLINICAL HISTORY: Chest pain COMPARISON: 07/15/2024 Unremarkable cardiac mediastinal silhouette. Lungs clear. No effusion or pneumothorax. XR/XR chest 1V IMPRESSION: NEGATIVE ACUTE PLEURAL-PARENCHYMAL DISEASE. Impression dictated by: Chandler Fields M.D. 01/17/2025 2:48 PM Dictation Location: [place] [address] Electronically authenticated by: [id number] Y Date: 01/17/2025 14:48 Dictated By: Chandler Fields M.D. Signed By: 01/17/25 1450 DD/ 1448 TD/TT: It Technical Architect:Troponin I High Sensitivity Reviewed date:01/18/2025 10:48:48 AM Interpretation: Performing Lab: Notes/Report: [facility] ,Troponin I High Sensitivity4.24.0-76.1 pg/mL CUT-OFF POINTS HAVE BEEN ESTABLISHED BASED ON THE FOURTH UNIVERSAL DEFINITION OF MYOCARDIAL INFARCTION. THE UPPER REFERENCE LIMIT (URL) OF TROPONIN, DEFINED THE 99TH PERCENTILE OF cTnI DISTRIBUTION IN A REFERENCE POPULATION, HAS BEEN CONFIRMED THE DECISION THRESHOLD FOR DC DIAGNOSIS. 99TH PERCENTILE = 76.2 PG/ML NOTE: HIGH-SENSITIVITY TROPONIN ASSAY IS NOT INTENDED TO BE USED IN ISOLATION BUT SHOULD BE INTERPRETED IN CONJUNCTION WITH OTHER DIAGNOSTIC AND CLINICAL INFORMATION. Performing Lab:see noteML - [facility] LBCBC AUTO DIFF Reviewed date:01/29/2025 09:03:45 AM Interpretation: Performing Lab: Notes/Report: [facility] ,White Blood Count7.74.0-11.0 10 3/uLRed Blood Count5.164.70-6.10 10 6/uL Zgimpbjjur40.814.0-18.0 g/rZEzerlydlbn47.342.0-54.0 %Mean Corpuscular Xdazau51.9 80.0-94.0 fLMean Corpuscular Cjdvbnvoql62.625.9-34.0 pgMean Corpuscular HGB Conc 36.529.9-35.2 g/dLRed Cell Distribution Width12.011.0-15.0 %Platelet Zorbj449 150-450 10 3/uLMean Platelet Volume9.89.5-13.5 fLNeutrophils Percent Auto60.1 43.0-75.0 %Lymphocytes Percent Auto32.820.5-60.0 %Monocytes Percent Auto6.11.7- 12.0 %Eosinophils Percent Auto0.40.9-7.0 %Basophils Percent Auto0.30.2-2.0 % Immature Granulocytes Pct Auto0.30.0-0.5 %Neutrophils Absolute Auto4.61.4-6.5 10 3/uLLymphocytes Absolute Auto2.51.2-3.8 10 3/uLMonocytes Absolute Auto0.50.3-0.8 10 3/uLEosinophils Absolute Auto0.00.0-0.7 10 3/uLBasophils Absolute Auto0.00.0- 0.1 10 3/uLImmature Granulocytes Abs Auto0.020.00-0.03 10 3/uLPerforming Lab:see noteML - [facility] LBD-DIMER Reviewed date:01/29/2025 09:03:45 AM Interpretation: Performing Lab: Notes/Report: [facility] ,D Dimer<0.19<=0.59 mg/L FEU Increases in D-Dimer concentration observed with thromboembolic events can be variable due to localization, size, and age of the thrombus. Therefore, a thromboembolic event cannot be diagnosed with certainty on the basis of the reference range. D-Dimers may also be elevated for a variety of disorders including advanced age, , coronary disease, cancer, liver disease, infection, inflammation, hematoma, DIC, trauma, post-surgery, diabetes, thrombolytic or anticoagulant therapy, stress, and generalized hospitalization. Performing Lab:see noteML - [facility] LBPROF CHEM 8 (BAS METB) Reviewed date:01/29/2025 09:03:45 AM Interpretation: Performing Lab: Notes/Report: [facility] ,Pdtfpt133994-103 mmol/LPotassium3.93.5-5.1 mmol/LDrdakthm61513-107 mmol/LCarbon Zxqobhy07.021.0-32.0 mmol/LAnion Gap15.1Yvhfpko06578-813 mg/dLBlood Urea Hivpedot01.07.0-18.0 mg/dLCreatinine0.940.70-1.30 mg/dLEstimated GFR ( Anupama>60>=60 mL/min/1.73m 2Estimated GFR (Non- Tia>60>=60 mL/min/1.73m 2BUN Creatinine Ratio13.0Jskibkj7.18.5-10.1 mg/dLPerforming Lab:see noteML - [facility] LBTroponin I High Sensitivity Reviewed date:01/29/2025 09:03:45 AM Interpretation: Performing Lab: Notes/Report: [facility] ,Troponin I High Sensitivity4.94.0-76.1 pg/mL CUT-OFF POINTS HAVE BEEN ESTABLISHED BASED ON THE FOURTH UNIVERSAL DEFINITION OF MYOCARDIAL INFARCTION. THE UPPER REFERENCE LIMIT (URL) OF TROPONIN, DEFINED THE 99TH PERCENTILE OF cTnI DISTRIBUTION IN A REFERENCE POPULATION, HAS BEEN CONFIRMED THE DECISION THRESHOLD FOR DC DIAGNOSIS. 99TH PERCENTILE = 76.2 PG/ML NOTE: HIGH-SENSITIVITY TROPONIN ASSAY IS NOT INTENDED TO BE USED IN ISOLATION BUT SHOULD BE INTERPRETED IN CONJUNCTION WITH OTHER DIAGNOSTIC AND CLINICAL INFORMATION. Performing Lab:see note - [facility] LBECG 12 lead Reviewed date:01/29/2025 03:35:15 PM Interpretation: Performing Lab: Notes/Report: Source Facility: [place] [address] Electrocardiograph Report Signed Patient: CHUCK PACKER MR#: [id number] : 1985 Acct:[id number] Age/Sex: 39 / M ADM Date: 01/28/25 Loc: ER Attending Dr: Ordering Physician: Leyda Barrientos M.D. Date of Service: 01/28/25 Procedure(s): ECG 12 lead Accession Number(s): [id number] cc: 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 Signed By: 01/29/25 1514 DD/ 1224 TD/TT: It Technical Architect:CBC AUTO DIFF (Not yet reviewed by provider) Interpretation: Performing Lab: Notes/Report: [facility] ,White Blood Count7.14.0-11.0 10 3/uLRed Blood Count5.474.70-6.10 10 6/uL Royhhjedrw50.614.0-18.0 g/yMHveiurwdow80.142.0-54.0 %Mean Corpuscular Fxeiza45.3 80.0-94.0 fLMean Corpuscular Bcmsjbruzk30.325.9-34.0 pgMean Corpuscular HGB Conc 36.029.9-35.2 g/dLRed Cell Distribution Width12.111.0-15.0 %Platelet Gbqcb429 150-450 10 3/uLMean Platelet Swgexk82.19.5-13.5 fLNeutrophils Percent Auto58.3 43.0-75.0 %Lymphocytes Percent Auto35.320.5-60.0 %Monocytes Percent Auto5.61.7- 12.0 %Eosinophils Percent Auto0.40.9-7.0 %Basophils Percent Auto0.10.2-2.0 % Immature Granulocytes Pct Auto0.30.0-0.5 %Neutrophils Absolute Auto4.11.4-6.5 10 3/uLLymphocytes Absolute Auto2.51.2-3.8 10 3/uLMonocytes Absolute Auto0.40.3-0.8 10 3/uLEosinophils Absolute Auto0.00.0-0.7 10 3/uLBasophils Absolute Auto0.00.0- 0.1 10 3/uLImmature Granulocytes Abs Auto0.020.00-0.03 10 3/uLPerforming Lab:see noteML - [facility] LBDRUG SCREEN RAPID (URINE) (Not yet reviewed by provider) Interpretation: Performing Lab: Notes/Report: [facility] ,Cannabinoid Screen UrinePOSITIVENEGATIVEPhencyclidine Screen UrineNEGATIVE NEGATIVECocaine Screen UrineNEGATIVENEGATIVEMethamphetamines Screen Urine NEGATIVENEGATIVEOpiate Screen UrineNEGATIVENEGATIVEAmphetamine Screen Urine NEGATIVENEGATIVEBenzodiazepines Screen UrineNEGATIVENEGATIVETricyclic Antidepressant UrineNEGATIVENEGATIVEMethadone Screen UrineNEGATIVENEGATIVE Barbiturates Screen UrineNEGATIVENEGATIVEOxycodone Screen UrineNEGATIVENEGATIVE Buprenorphine Screen UrineNEGATIVENEGATIVE DRUG CLASS TEST SYSTEM CUT-OFF CONCENTRATIONS ARE FOLLOWS: AMP (Amphetamine): 500 ng/mL BAR (Barbiturates): 200 ng/mL BZO (Benzodiazepines): 150 ng/mL BUP (Buprenorphine): 10 ng/mL ABBY (Cocaine): 150 ng/mL mAMP (Methamphetamine): 500 ng/mL MTD (Methadone): 200 ng/mL OPI (Opiates): 100 ng/mL OXY (Oxycodone): 100 ng/mL PCP (Phencyclidine): 25 ng/mL THC (Cannabinoids): 50 ng/mL TCA (Trycyclic Antidepressants): 300 ng/mL Performing Lab:see noteML - [facility] LBINFLUENZA A AND B AG (Not yet reviewed by provider) Interpretation: Performing Lab: Notes/Report: [facility] ,Influenza Virus A AntigenNegative Negative for Flu A protein antigen. Infection due to Flu A cannot be ruled out. Flu A antigen in the sample may be below the detection limit of the test. Influenza Virus B AntigenNegative Negative for Flu B protein antigen. Infection due to Flu B cannot be ruled out. Flu B antigen in the sample may be below the detection limit of the test. Performing Lab:see noteML - [facility] LBLIPASE (Not yet reviewed by provider) Interpretation: Performing Lab: Notes/Report: [facility] ,Eqbqyi76.016.0-77.0 U/LPerforming Lab:see noteML - [facility] LBPROF 14(COMP METB) (Not yet reviewed by provider) Interpretation: Performing Lab: Notes/Report: [facility] ,Phbygw449372-206 mmol/LPotassium3.93.5-5.1 mmol/HAmmwxfnn65597-137 mmol/LCarbon Dmzgudb30.321.0-32.0 mmol/LAnion Gap13.5Rhsbsqv70293-275 mg/dLBlood Urea Vxxjdcpc88.07.0-18.0 mg/dLCreatinine1.030.70-1.30 mg/dLEstimated GFR ( Anupama>60>=60 mL/min/1.73m 2Estimated GFR (Non- Tia>60>=60 mL/min/1.73m 2BUN Creatinine Ratio13.1Rlmtafj8.38.5-10.1 mg/dLBilirubin Total0.70.2-1.0 mg/dL Aspartate Amino Toorlcztakm1674-58 U/LAlanine Oaahrrshavcppqhh7547-86 U/L Alkaline Qhvzqjcmvum2872-205 U/LTotal Protein8.66.4-8.2 g/dLAlbumin Level3.93.4- 5.0 g/dLGlobulin4.7Albumin Globulin Ratio0.8Performing Lab:see noteML - [facility] LBTroponin I High Sensitivity (Not yet reviewed by provider) Interpretation: Performing Lab: Notes/Report: [facility] ,Troponin I High Sensitivity5.34.0-76.1 pg/mL CUT-OFF POINTS HAVE BEEN ESTABLISHED BASED ON THE FOURTH UNIVERSAL DEFINITION OF MYOCARDIAL INFARCTION. THE UPPER REFERENCE LIMIT (URL) OF TROPONIN, DEFINED THE 99TH PERCENTILE OF cTnI DISTRIBUTION IN A REFERENCE POPULATION, HAS BEEN CONFIRMED THE DECISION THRESHOLD FOR DC DIAGNOSIS. 99TH PERCENTILE = 76.2 PG/ML NOTE: HIGH-SENSITIVITY TROPONIN ASSAY IS NOT INTENDED TO BE USED IN ISOLATION BUT SHOULD BE INTERPRETED IN CONJUNCTION WITH OTHER DIAGNOSTIC AND CLINICAL INFORMATION. Performing Lab:see noteML - [facility] BBWHUB-DpV-3 Ag* (Not yet reviewed by provider) Interpretation: Performing Lab: Notes/Report: [facility] ,SARS-CoV-2 AgNEGATIVENEGATIVE This test has not been FDA cleared or approved, but has been authorized by the FDA under an Emergency Use Authorization (EUA) for use by authorized laboratories certified under CLIA that meet the requirements to perform moderate or high complexity testing. This test has been authorized only for the detection of proteins from SARS-CoV-2, not for any other viruses or pathogens. The emergency use of this test is authorized for the duration of the declaration that circumstances exist justifying the authorization of emergency use of in vitro diagnostic tests for detection and/or diagnosis of Covid-19 under section 564(b)(1) of the Act, 21 U.S.C. 360bbb-3(b)(1), unless the declaration is terminated or authorization is revoked sooner. Performing Lab:see noteML - [facility] LBUA Micro, reflex to culture (Not yet reviewed by provider) Interpretation: Performing Lab: Notes/Report: [facility] ,Color UrineYELLOWYELLOWClarity UrineCLEARCLEARSpecific [place] Urine1.025 1.005-1.025pH Urine6.05.0-9.0Protein UrineTRACENEG/TRACE mg/dLGlucose Urine UA NEGATIVENEGATIVE mg/dLBilirubin UrineNEGATIVENEGATIVEKetones UrineTRACENEGATIVE mg/dLBlood UrineSMALLNEGATIVENitrite UrineNEGATIVENEGATIVEUrobilinogen Urine0.2 0.2-1.0 EU/dLLeukocyte Esterase UrineNEGATIVENEGATIVEWBC UrineNONE SEENNONE SEEN #/HPFRBC Urine0-20-2 #/HPFBacteria UrineTRACENONE SEEN #/HPFMucus UrineTRACENONE SEENSquamous Epithelial Cell UrineRARENONE/RARE #/LPFCrystals Seen?None SeenNone Seen #/HPFCast Seen?NONE SEENNONE SEEN #/LPFPerforming Lab:see noteML - [facility] LBECG 12 lead (Not yet reviewed by provider) Interpretation: Performing Lab: Notes/Report: Source Facility: [place] [address] [place] [address] Electrocardiograph Report Signed Patient: CHUCK PACKER MR#: [id number] : 1985 Acct:[id number] Age/Sex: 39 / M ADM Date: Loc: ER Attending Dr: Ordering Physician: Jil Benitez Date of Service: 03/17/25 Procedure(s): ECG 12 lead Accession Number(s): [id number] cc: [facility] Test Date: 2025-03-17 Pat Name: CHUCK PACKER Department: Room: - 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 Measurements Intervals [place] Rate: 89 P: 44 OR: 138 QRS: 26 QRSD: 80 T: 46 QT: 334 QTc: 381 Interpretive Statements 1100 Sinus rhythm [address] elevation [address] [place] abnormality 9130 borderline ECG Compared to ECG 01/28/2025 12:24:48 No significant changes Electronically Signed On 03-17-2025 12:57:47 EST by JITENDRA FOOTE M.D. Dictated By: JITENDRA FOOTE Signed By: 03/17/25 1258 DD/ 1232 TD/TT: It Technical Architect:XR chest 2V (Not yet reviewed by provider) Interpretation: Performing Lab: Notes/Report: Source Facility: [place] [address] XRay Report Signed Patient: CHUCK PACKER MR#: [id number] : 1985 Acct:[id number] Age/Sex: 39 / M ADM Date: Loc: ER Attending Dr: Ordering Physician: Jil Benitez Date of Service: 03/17/25 Procedure(s): XR chest 2V Accession Number(s): [id number] cc: LEIGHANN SORIANO ; Jil Benitez [place] [id number] Patient Name: CHUCK PACKER MRN: [id number] date: 1985 Sex: M Assigned Patient Location: ER Current Patient Location: ER Accession/Order Number: [id number] Exam Date: 03/17/2025 13:00 Report Date: 03/17/2025 13:46 At the request of: JIL BENITEZ MD Procedure: XR chest 2V Plain film chest 2 view HISTORY: Dizziness. Headache. Confusion. COMPARISON: 01/28/2025 FINDINGS: SUPPORT DEVICES: None POSTSURGICAL CHANGES: None HEART: Within normal limits PULMONARY JERRY: Within normal limits MEDIASTINUM: Unremarkable LUNGS AND PLEURA: No acute lung process, pleural effusion or pneumothorax identified. BONY STRUCTURES: Intact ADDITIONAL FINDINGS None XR/XR chest 2V IMPRESSION: No acute process. Impression dictated by: Jil Chavez M.D. 03/17/2025 1:46 PM Dictation Location: [place] [address] Electronically authenticated by: [id number] Y Date: 03/17/2025 13:46 Dictated By: Jil Chavez D.O. Signed By: 03/17/25 1348 DD/ 45 TD/TT: It Technical Architect:CT head/brain wo con (Not yet reviewed by provider) Interpretation: Performing Lab: Notes/Report: Source Facility: [place] [address] CT Scan Report Signed Patient: CHUCK PACKER MR#: [id number] : 1985 Acct:[id number] Age/Sex: 39 / M ADM Date: Loc: ER Attending Dr: Ordering Physician: Jil Benitez Date of Service: 03/17/25 Procedure(s): CT head/brain wo con Accession Number(s): [id number] cc: LEIGHANN SORIANO [place] [address] Patient Name: CHUCK PACKER MRN: [id number] date: 1985 Sex: M Assigned Patient Location: ER Current Patient Location: ER Accession/Order Number: [id number] Exam Date: 03/17/2025 13:00 Report Date: 03/17/2025 13:45 At the request of: JIL BENITEZ MD Procedure: CT head/brain wo con Unenhanced head CT TECHNIQUE: Contiguous axial imaging of the head. The CT exam was performed using one or more the following dose reduction techniques: Automated exposure control, adjustment of the MA and/or Kv according to patient size, or use of the iterative reconstruction technique. COMPARISON: 10/29/2022 HISTORY: Dizziness. Headache. Confusion. VENTRICLES: Within normal limits ATROPHY: None BRAIN PARENCHYMA: Adequate cheung-white matter differentiation identified. HEMORRHAGE: None HERNIATION: No mass effect or herniation INFARCTION: No recent vascular distribution infarction is seen. EXTRA-AXIAL FLUID COLLECTIONS None MIDBRAIN: Unremarkable CAM: Unremarkable MEDULLA: Unremarkable SINUSES: Unremarkable ORBITS: Grossly unremarkable MASTOIDS: Unremarkable BONY STRUCTURES Intact ADDITIONAL FINDINGS: CT/CT head/brain wo con IMPRESSION: No acute findings. Impression dictated by: Jil Chavez M.D. 03/17/2025 1:45 PM Dictation Location: [place] [address] Electronically authenticated by: [id number] Y Date: 03/17/2025 13:45 Dictated By: Jil Chavez D.O. Signed By: 03/17/25 1347 DD/ 44 TD/TT: It Technical Architect:XR chest 1V Reviewed date:01/29/2025 09:03:45 AM Interpretation: Performing Lab: Notes/Report: Source Facility: [place] [address] XRay Report Signed Patient: CHUCK PACKER MR#: [id number] : 1985 Acct:[id number] Age/Sex: 39 / M ADM Date: 01/28/25 Loc: ER Attending Dr: Ordering Physician: Leyda Barrientos M.D. Date of Service: 01/28/25 Procedure(s): XR chest 1V Accession Number(s): [id number] cc: LEIGHANN SORIANO ; Leyda Barrientos M.D. [place] [address] Patient Name: CHUCK PACKER MRN: [id number] date: 1985 Sex: M Assigned Patient Location: ED.MAIN Current Patient Location: ED.MAIN Accession/Order Number: [id number] Exam Date: 01/28/2025 13:33 Report Date: 01/28/2025 14:07 At the request of: LEYDA BARRIENTOS MD Procedure: XR chest 1V XR chest 1V 01/28/2025 12:31 PM SIGNS AND SYMPTOMS: CP, epigastric pain Y PROTOCOL: Frontal radiograph chest COMPARISON: 01/17/2025 FINDINGS: The trachea is midline. The heart and mediastinal structures are within normal limits. The lung parenchyma is clear. The bony thorax is intact. XR/XR chest 1V IMPRESSION: No acute cardiopulmonary pathology. Impression dictated by: Antione Enamorado M.D. 01/28/2025 2:07 PM Dictation Location: [place] [address] Electronically authenticated by: [id number] Y Date: 01/28/2025 14:07 Dictated By: Antione Enamorado M.D. Signed By: 01/28/25 1410 DD/ 1407 TD/TT: It Technical Architect:SARS-CoV-2 Ag* Reviewed date:01/18/2025 10:48:48 AM Interpretation: Performing Lab: Notes/Report: [facility] ,SARS-CoV-2 AgNEGATIVENEGATIVE This test has not been FDA cleared or approved, but has been authorized by the FDA under an Emergency Use Authorization (EUA) for use by authorized laboratories certified under CLIA that meet the requirements to perform moderate or high complexity testing. This test has been authorized only for the detection of proteins from SARS-CoV-2, not for any other viruses or pathogens. The emergency use of this test is authorized for the duration of the declaration that circumstances exist justifying the authorization of emergency use of in vitro diagnostic tests for detection and/or diagnosis of Covid-19 under section 564(b)(1) of the Act, 21 U.S.C. 360bbb-3(b)(1), unless the declaration is terminated or authorization is revoked sooner. Performing Lab:see noteML - [facility] LBD-DIMER Reviewed date:01/18/2025 10:48:48 AM Interpretation: Performing Lab: Notes/Report: [facility] ,D Dimer0.20<=0.59 mg/L FEU Increases in D-Dimer concentration observed with thromboembolic events can be variable due to localization, size, and age of the thrombus. Therefore, a thromboembolic event cannot be diagnosed with certainty on the basis of the reference range. D-Dimers may also be elevated for a variety of disorders including advanced age, , coronary disease, cancer, liver disease, infection, inflammation, hematoma, DIC, trauma, post-surgery, diabetes, thrombolytic or anticoagulant therapy, stress, and generalized hospitalization. Performing Lab:see noteML - [facility] LBECG 12 lead Reviewed date:08/06/2024 09:47:04 PM Interpretation: Performing Lab: Notes/Report: Source Facility: [place] [id number] [address] [place] [id number] Electrocardiograph Report Signed Patient: CHUCK PACKER MR#: [id number] : 1985 Acct:[id number] Age/Sex: 38 / M ADM Date: 07/30/24 Loc: ER Attending Dr: Ordering Physician: Leyda Barrientos M.D. 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 Measurements Intervals [place] Rate: 95 P: 44 OR: 120 QRS: 15 QRSD: 76 T: -5 [...] By: JITENDRA FOOTE Signed By: 07/30/242019 DD/ 1412 TD/TT: It Technical Architect:PROF M[place] 8 ([facility]) Reviewed date:08/06/2024 09:47:04 PM Interpretation: Performing Lab: Notes/Report: [facility] ,Qwvoog858936-319 mmol/LPotassium4.03.5-5.1 mmol/GAoywxaqq79070-303 mmol/LCarbon Jicflev39.321.0-32.0 mmol/LAnion Gap12.6Pbchllr93405-147 mg/dLBlood Urea Mlzanmqj91.07.0-18.0 mg/dLCreatinine1.100.70-1.30 mg/dLEstimated GFR ( Anupama>60>=60 mL/min/1.73m 2Estimated GFR (Non- Tia>60>=60 mL/min/1.73m 2BUN Creatinine Ratio11.5Ygduhei0.98.5-10.1 mg/dLPerforming Lab:see noteML - [facility] LBCBC AUTO DIFF Reviewed date:08/06/2024 09:47:04 PM Interpretation: Performing Lab: Notes/Report: [facility] ,White Blood Count7.44.0-11.0 10 3/uLRed Blood Count4.934.70-6.10 10 6/uL Yixsbykkgn28.014.0-18.0 g/nONtgfetrbmc99.142.0-54.0 %Mean Corpuscular Kocjbd51.4 80.0-94.0 fLMean Corpuscular Bexcaxqklm79.425.9-34.0 pgMean Corpuscular HGB Conc 35.629.9-35.2 g/dLRed Cell Distribution Width12.611.0-15.0 %Platelet Uwpeh571 150-450 10 3/uLMean Platelet Volume9.69.5-13.5 fLNeutrophils Percent Auto69.9 43.0-75.0 %Lymphocytes Percent Auto23.820.5-60.0 %Monocytes Percent Auto5.41.7- 12.0 %Eosinophils Percent Auto0.30.9-7.0 %Basophils Percent Auto0.30.2-2.0 % Immature Granulocytes Pct Auto0.30.0-0.5 %Neutrophils Absolute Auto5.21.4-6.5 10 3/uLLymphocytes Absolute Auto1.81.2-3.8 10 3/uLMonocytes Absolute Auto0.40.3-0.8 10 3/uLEosinophils Absolute Auto0.00.0-0.7 10 3/uLBasophils Absolute Auto0.00.0- 0.1 10 3/uLImmature Granulocytes Abs Auto0.020.00-0.03 10 3/uLPerforming Lab:see noteML - [facility] LBCOVID-19, Flu A+B IH (Not yet reviewed by provider) Interpretation: Performing Lab: Notes/Report: COVIDnegFLU AnegFLU BnegControlpos Reason For Referral No Information Medications Medication SIG (Take, Route, Frequency, Duration) Notes Start Date End Date Status predniSONE 20 MG 2 tablet Orally Once a day; Dur ation: 3 days 5ActivetraZODone HCl 50 MG1 tablet at bedtime as needed Orally Once a day; Duration: 30 days05/26/2024tiveOndansetron HCl 4 MG1 tablet Orally BID prn; Duration: 7 days06/15/2024tivePantoprazole Sodium 40 MG1 tablet Orally Once a day; Duration: 30 day(s)12/07/2023ctiveMupirocin 2 %1 application Externally Twice a day; Duration: 5 days12/10/2023ctiveOLANZapine 15 MG1 tablet Orally Once a day; Duration: 30 days06/01/2024tiveHyoscyamine Sulfate 0.125 MG 2 tabs SL SL every 4 hrs PRN abd pain12/10/2023ctiveHyoscyamine Sulfate 0.125 MG1-2 tabs SL SL every 4 hrs PRN abd pain07/20/2024tiveHydrocortisone 1 %1 application Externally Once a day12/10/2023ctivehydrOXYzine HCl 50 MGTAKE 1 TABLET IN THE AM AND 1 IN THE PM NEEDED; Duration: 30ActiveFLUoxetine HCl 20 MGTAKE 3 CAPSULES BY MOUTH ONCE A DAY; Duration: 30ActiveBenzonatate 200 MG1 capsule as needed Orally Three times a day; Duration: 7 days07/17/2024tive Divalproex Sodium 250 MGTAKE 1 TABLET BY MOUTH IN THE MORNING AND 2 TABLETS IN THE EVENING; Duration: 30 daysActivelevoFLOXacin 750 MG1 tablet Orally Once a day; Duration: 10 day(s)5ActiveTriamcinolone Acetonide 0.1 %1 application Externally Two times a Week12/10/2023ctiveVentolin HFA 108 (90 Base) MCG/ACTINHALE 1 TO 2 PUFFS EVERY 4 HOURS NEEDED; Duration: 17Active Social History Tobacco Use: Social History Observation Description Date Details (start date - stop date) Current Smoker NA - NA Tobacco Use/Smoking Question Answer Notes Patient is a current smoker How often do you smoke cigarettes?every dayHow many cigarettes a day do you smoke?11-20Alcohol Screen (Audit-C) Question Answer Notes Did you have a drink containing alcohol in the p ast year? No Iajfea6MwprxzwmuixfxsSukpqcmwTQPJD-N (Standard) Question Answer Notes Did you have a drink containing alcohol in the p ast year? No Avbnir6KwejvskjgvhoxhOqflzdzr Problems Problem Type SNOMED Code ICD Code Onset Dates Problem Status W/U Status Risk Notes Problem Overweight (717134780) Overweight (E66.3) ActiveconfirmedProblemGeneralized anxiety disorder (48647150)Generalized anxiety disorder (F41.1)ActiveconfirmedProblemDepression (678719277)Depression (F32.9) ActiveconfirmedProblemErectile dysfunction (718522070)Erectile dysfunction (N52.9)ActiveconfirmedProblemGastroesophageal reflux disease (934201392)GERD without esophagitis (K21.9)ActiveconfirmedProblemMigraine (07816560)Migraine (G43.909)ActiveconfirmedProblemBronchitis (54522442)Bronchitis (J40)Active confirmedProblemRash (798847278)Rash (R21)ActiveconfirmedProblemUpper respiratory infection (41218398)Upper respiratory infection (J06.9)Active confirmedProblemShingles (4195611)Shingles (B02.9)ActiveconfirmedProblem Hemorrhoids (76846715)Hemorrhoids (K64.9)ActiveconfirmedProblemCurrent smoker (38992064)Current smoker (F17.200)ActiveconfirmedProblemAbdominal discomfort (45718873)Abdominal discomfort (R10.9)ActiveconfirmedProblemPanic attack (911941105)Panic attack (F41.0)ActiveconfirmedProblemBright red blood per rectum (191316938)Bright red blood per rectum (K62.5)ActiveconfirmedProblemAnal fissure (33565842)Rectal fissure (K60.2)ActiveconfirmedProblemPain in limb (03539181) Heel pain, right (M79.671)ActiveconfirmedProblemInsomnia (698627019)Insomnia disorder (G47.00)ActiveconfirmedProblemIrritable bowel syndrome (87891119) Irritable bowel syndrome (IBS) (K58.9)ActiveconfirmedProblemWolff Parkinson White syndrome (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 [address] [address] 07/14/2024 Leighannrachel Soriano Body aches R52 ; Gastroenteritis K52.9 and Vomiting R11.[address] [address] 05/26/2024 Leighann Soriano Insomnia disorder G4 7.00 ; Rash and other nonspecific skin eruption R21 and Depression F32.[address] [address] 06/08/2024 Martínez Hoy Cough R05.9 and Acut e bronchitis, unspecified organism J20.[address] [address] 07/17/2024 Leighann Maru Bronchitis J40 [address] [address] 07/20/2024 Martínez Hoy Gastroenteritis K52. [address] [address] 08/04/2024 Martínez Hoy Acute non-recurrent sinusitis, unspecified location J01.90 and Nasal congestion R09.[address] [place] [address] 06/01/2024 Leighann Soriano Assessments Encounter Date Diagnosis (ICD Code) Assessment Notes Treatment Notes Treatment Clinical Notes Section Notes 05/26/2024 Insomnia disorder (ICD-10 - G47. 00) discussed sleep hygiene trial of trazodone 05/26/2024Rash and other nonspecific skin eruption (ICD-10 - R21) if not improving try scabies wash? call office derm fu if not improving, referral sheet given 5Cough (ICD-10 - R05.9)06/15/2024Gastroenteritis (ICD-10 - K52.9) push fluids, electrolytes ok for OWN 07/14/2024ody aches (ICD-10 - R52)07/14/2024Gastroenteritis (ICD-10 - K52.9) has zofran at home rest, push fluids and electrolytes ok for OWN fu if not improving, sx worsen 07/17/2024ronchitis (ICD-10 - J40)fu if not iasxikvhh68/20/2025Gastroenteritis (ICD-10 - K52.9)Get plenty of rest. Stay hydrated by sucking on ice chips or taking small sips of water. You can also try drinking clear soda, clear broths or noncaffeinated sports drinks. Stop eating solid foods for a few hours to let your stomach settle. East back into eating by eating bland, rork-cu-mnbrxm foods like crackers, toast, gelatin, bananas, rice and chicken. Try to avoid foods/substances including dairy products, caffeine, alcohol, nicotine and fatty or highly seasoned foods. Medications such as ibuprofen or tylenol can make your stomach more upset, so use sparingly if at all. Also avoid wxkn-zam-abhbjyv anti-diarrheal medications because it can make it harder for your body to eliminate the virus.5Acute non-recurrent sinusitis, unspecified location (ICD-10 - J01.90)Rest and drink more liquids, especially water. You may use a humidifier or vaporizer to help keep the drainage moist. Yixz-lvw-uxeayoh Nasal Saline may help the stuffy and runny nose. Use Ibuprofen and or Tylenol as needed for fever, chills, body aches or pain. Children 5 years old should not be given utfe-qrx-qwwxslv cough and cold medications such as guaifenesin and dextromethorphan. If you're over age 5, you may try aclq-ooz-xobppqe cold medications such as guaifenesin and dextromethorphan, or multi-symptom cold reliever such as Dayquil to help reduce the symptoms. Antibiotics have been pre scribed. You should take these until completed and follow the directions. Antibiotics can sometimescause upset stomach, and in rare cases, serious allergic reactions or serious gastrointestinal problems. If you start having severe abdominal pain, severe vomiting, or bloody diarrhea, you should be r eevaluated by your physician or urgent care immediately. Follow up with your Primary Care Provider or return to clinic if symptoms do not improve within 3-5 days08/04/2024Nasal congestion (ICD-10 - R09.81)07/14/2024Vomiting (ICD-10 - R11.10)5Acute bronchitis, unspecified organism (ICD-10 - J20.9)Rest and drink more liquids, especially water. You may use a humidifier or vaporizer to help keep the drainage moist. Mdnt-fzk-toopxqk Nasal Saline may help the stuffy and runny nose. Use Ibuprofen and or Tylenol as needed for fever, chills, body aches or pain. Children 5 years old should not be given zhko-jej-nddtdml cough and cold medications such as guaifenesin and dextromethorphan. If you're over age 5, you may try iqnw-xkd-ldkvxuu cold medications such as guaifenesin and dextromethorphan, or multi-symptom cold reliever such as Dayquil to help reduce the symptoms. Antibiotics have been prescribed. You should take these until completed and follow the directions. Antibiotics can sometimescause upset stomach, and in rare cases, serious [...] go to the emergency room or call [phone] (ICD-10 - F32.9) psych referral sheet given needs to re establish with psych will review meds with Dr Vail Plan Of Treatment Pending Test Test Name Order Date COVID-19, Flu A+B IH 07/14/2024 COVID-19, Flu A+B IH 06/08/2024 CBC AUTO DIFF 03/17/2025 DRUG SCREEN RAPID (URINE) 03/17/2025 INFLUENZA A AND B AG 03/17/2025 LIPASE 03/17/2025 PROF 14(COMP METB) 03/17/2025 ECG 12 lead 03/17/2025 XR chest 2V 03/17/2025 CT head/brain wo con 03/17/2025 Troponin I High Sensitivity 03/17/2025 SARS-CoV-2 Ag* 03/17/2025 UA Micro, reflex to culture 03/17/2025 Insurance Providers Payer Name Payer Address Payer Phone Subscriber Number Group Number Insured Name Patient Relationship to Insured Coverage Start Date Coverage End Date [employer] [place] [employer] [address] [address] [place] [phone] [id number] Jagruti Packer - patient is the [id number] 2020 Medical (General) History Medical History History ICD Code Bronchitis J40 Heel pain, right M79.671 Hemorrhoids K64.9 Upper respiratory infection J06.9 Depression F32.9 Rash R21 Shingles B02.9 Migraine G43.909 Gastro-esophageal reflux disease K21.9 Bright red blood per rectum K62.5 Irritable bowel syndrome (IBS) K58.9 Panic attack F41.0 Yzgmc-Bezrdlubo-Gnntn (WPW) syndrome I45 .6 Overweight E66.3 Abdominal discomfort R10.9 Generalized anxiety disorder F41.1 Current smoker F17.200
--- OUTSIDE RECORDS SUMMARY | 2025-03-17 15:09 | XMS_ITS | Clinical Summary ---
Author Organization [facility] Address [address] [place] [address] Care Team Providers Care Senior Caregiver Name Role Phone Unavailable Primary Care Provider Unavailabl e Allergies Active AllergyReactionsCriticalityNoted DateCommentsErythromycinRashLow 02/23/2024Erythromycin ZkudWhlni32/23/7502NrmpdafqbjwEmxro35/23/2024 Medications MedicationSigDispense QuantityRefillsLast FilledStart DateEnd DateStatus divalproex (Depakote) 250 mg EC tablet TAKE 1 TABLET BY MOUTH IN THE MORNING AND 2 TABLETS IN THE EVENINGActive divalproex (Depakote ER) 500 mg 24 hr tablet Take 500 mg by mouth at bedtime.04/29/2023ctive FLUoxetine (PROzac) 20 mg capsule Take 60 mg by mouth in the morning.Active hydrOXYzine pamoate (Vistaril) 50 mg capsule Take 50 mg by mouth two times daily.04/29/2023ctive OLANZapine (ZyPREXA) 10 mg tablet Take 1 tablet by mouth at bedtime.Active pantoprazole (ProtoNix) 40 mg EC tablet in the morning.12/07/2023ctive AneCream5 5 % cream 03/09/2024ctive diclofenac (Voltaren) 75 mg EC tablet Take 75 mg by mouth if needed in the morning and at bedtime.03/05/2024ctive hydrOXYzine HCL (Atarax) 50 mg tablet Take 50 mg by mouth.12/13/2023ctive Active Problems ProblemNoted DateDiagnosed DateBMI 40.0-44.9, adult02/23/2024RBPR (bright red blood per rectum)02/23/2024hange in bowel dncbhf7402/23/2024urrent smoker 02/23/2024 Overview (02/23/2024): Added secondary to documentation in Social History. Yvzxyjxmkd49/23/2024Erectile vzscncgwwom64/23/2024Generalized anxiety disorder 02/23/2024GERD (gastroesophageal reflux disease)02/23/2024History of shingles 02/23/2024IBS (irritable bowel syndrome)02/23/20243874Rpduvqtit35/23/2024Morbid kzhaktx5602/23/2024bdominal pain, hxenxlefor88/23/2024anic disorder without agoraphobia with mild panic pplyqdi8502/23/2024ectal /23/2024 Srulx-Qicqxehsj-Jbqum artikjld15/23/2024nal pain02/23/2024 Social History Tobacco UseTypesPacks/DayYears UsedDateSmoking Tobacco: Every DayCigarettes Smokeless Tobacco: Never Tobacco Cessation:Ready to Q uit: Not Asked; Counseling Given: Not Answered Alcohol UseStandard Drinks/WeekCommentsNot Currently0 (1 standard drink = 0.6 oz pure alcohol)Humiliation, Afraid, Rape, and Kick questionnaireAnswerDate RecordedWithin the last year, have you been afraid of your partner or ex-partner?No03/14/2024Emotionally AbusedNot on file03/14/2024hysically Abused Not on file03/14/2024Sexually AbusedNot on file03/14/2024HQ-2AnswerDate RecordedPatient Health Questionnaire-2 Jjpmp92805/14/2023Sex and Gender InformationValueDate RecordedSex Assigned at BirthNot on fileLegal SexMale 02/11/2024 3:19 PM EDTGender IdentityNot on fileSexual OrientationNot on file Last Filed Vital Signs Vital SignReadingTime TakenCommentsBlood Elrosign915/8903/14/2024 2:20 PM EST Ekuok164903/14/2024 2:20 PM SDPWqlvpqgcfqx08.6 ??C (97.8 ??F)03/14/2024 2:20 PM ESTRespiratory Vyaa6521 9:45 AM EDTOxygen Nraovrmfnc42%03/14/2024 2:20 PM ESTInhaled Oxygen Concentration--Htzzzz457 kg (314 lb 3.2 oz)03/14/2024 2:20 PM QXLNuatdt410.5 cm (6' 3 )03/14/2024 2:20 PM ESTBody Mass Index39.27105/14/2023 2:20 PM EST Plan of Treatment Health MaintenanceDue DateLast DoneCommentsVaricella Vaccines (1 of 2 - 13+ 2- dose series)08/19/2000Hepatitis B Vaccines (1 of 3 - 19+ 3-dose series) 08/19/2006Pneumococcal Vaccine: Pediatrics (0 to 5 Years) and At-Risk Patients (6 to 64 Years) (1 of 2 - PCV)08/19/2006dult Pwnixyh1008/19/2009HPV Vaccines (1 - 3-dose SCDM series)08/19/2014COVID-19 Vaccine (1 - season)2025 Influenza Vaccine (#1)2025Depression Tkhzbquke05Zoster Vaccines (1 of 2)08/19/2037HIB VaccinesAged OutNo longer eligible based on patient's age to complete this topicIPV VaccinesAged OutNo longer eligible based on patient's age to complete this topicMeningococcal B VaccineAged OutNo longer eligible based on patient's age to complete this topicMeningococcal VaccineAged OutNo longer eligible based on patient's age to complete this topicRotavirus VaccinesAged OutNo longer eligible based on patient's age to complete this topic Insurance Advance Directives * Full Code (Latest Code Status on File) Date ActivatedDate IkyuwnkjkxmHjvqfsmx08/29/2024 6:22 AM02/29/2024 12:22 PM
[2025-03-17] MEDS: ACETAMINOPHEN 500 MG TABLET 1000 MG PO (15:17)
[2025-03-17] MEDS: KETOROLAC TROMETHAMINE 30 MG/ML VIAL 15 MG IVP (15:17)
[2025-03-17] MEDS: MECLIZINE HCL 12.5 MG TABLET 25 MG PO (15:18)
== END 2025-03-17 16:13 | disposition home or self-care (01) ==
PROVIDERS: Emergency Provider Emergency Medicine; PCP Nurse Practitioner Family
DX: R42 Dizziness and giddiness (principal); R51.9 Headache, unspecified; E86.0 Dehydration; F17.200 Nicotine dependence, unspecified, uncomplicated
CPT/HCPCS: 36415; 70450; 71046; 80053; 80307; 81001; 83690; 84484; 85025; 87804; 87811; 93005; 96361; 96374; 99285; J1885

== ENCOUNTER 2025-03-21 17:22 | Emergency (ER) | payer SELFPAY ==
--- OUTSIDE RECORDS SUMMARY | 2024-08-08 08:30 | XMS_ITS ---
Author Organization The [facility] in [place] Address [address] [place] [address] Care Team Providers Care Passenger Attendant Name Role Phone Leighann Mahoney Primary Care Provider REASON FOR VISIT STILL SICK Encounters Encounter Location Date Provider Diagnosis [facility] [address] [place] [address] 08/08/2024 Leighann Mahoney Plan Of Treatment No Information Progress Notes * BIRDIE GenesisOB:1985 (39 yo M)Acc No.[id number]:08/08/2024 UNLOCKED PROGRESS NOTE Progress Note Patient: Tristin CARL :?Leighann Mahoney (TTC), CNPDOB:1985 ???Age:38 Y???Sex:MaleDate:08/08/2024Phone:[phone]:[address] [place] [address], [address], [place], [id number] Subjective: * Chief Complaints: * 1 . STILL SICK. * Medical History: Objective: * Vitals: Assessment: Plan: * Treatment: * * Electronic signature of Leighann Mahoney NP, COLD ROLLER.REGISTER REPAIRER.[id number] on 03/21/2025 at 06:34 PM ESTSign off status: PendingVisit Status:?OFF CANC (OFFICE CANCEL) * Provider: Phan RILEY), REGISTER REPAIRER Date: 0 08/08/2024 Generated for Printing/Faxing/eTransmitting on:?03/21/2025 06:34 PM EST
[2025-03-21] VITALS (22 sets, daily range): BP systolic 136–163; BP diastolic 94–101; PULSE 88–112; TEMP 36.7; O2SAT 95–98; BMI 37.5
--- NOTE | 2025-03-21 17:51 | ECG_ITS ---
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 Measurements Intervals [place] Rate: 109 P: 58 MA: 120 QRS: 14 QRSD: 88 T: -59 QT: 318 QTc: 382 Interpretive Statements 1120 Sinus tachycardia [address] depression [address] & Twave abnormality 9150 abnormal ECG Compared to ECG 03/17/2025 12:32:15 Sinus rhythm no longer present ST (T wave) deviation still present Electronically Signed On 03-22-2025 6:04:21 EST by JITENDRA FOOTE M.D.
--- NOTE | 2025-03-21 17:58 | ED_ITS ---
HPI HPI - General Adult General Chief complaint: Chest Pain Stated complaint: fast heart rate Time Seen by Provider: 03/21/25 17:23 Source: patient Mode of arrival: ambulance History of Present Illness HPI narrative: Patient is a 39-year-old male well-known to this emergency department that presents with complaints of fast heart rate and dysuria. He states that he was at work and had just eaten, had a bowel movement, and then came out and his coworkers told him he looked pale. He does get intermittent left-sided chest wall pain, that he has been seen here for before. He notes that his dysuria started when he was seen here last which was 03/17 and they told him his urine looked fine. He states that he just found out his was a carrier for hepatitis C. He denies any drug or alcohol use recently. Related Data Home Medications ?Medication ?Instructions ?Recorded ?Confirmed aspirin 81 mg tablet,delayed 81 mg PO DAILY 03/21/25 1 05/21/24 release (Ecotrin Low Strength) Previous Rx's ?Medication ?Instructions ?Recorded meclizine 25 mg chewable tablet 25 mg PO TID PRN dizzi ness or 03/17/25 (Antivert) vertigo #7 tabs metformin 500 mg tablet 500 mg PO DAILY #30 tabs Allergies Allergy/AdvReac Type Severity Reaction Status Date / Time erythromycin base Allergy Intermediate Rash Verified 03/21/25 17:26 Penicillins Allergy Intermediate Rash Verified 03/21/25 17:26 Opioid HPI Opioid Management Most Recent Opioid Data: Last Pain Scale 7 03/21/25, 17:28 Last MAR Pain Assessment 03/17/25, 15:17 Ur Phencyclidine Scrn, (NEGATIVE) Negative , 17:37 Review of Systems ROS Status of ROS 10 or more systems reviewed and unremark able except as noted in history and below [facility] Social History Smoking status: Current every day smoker Little interest or pleasure in doing things: not at all Feeling down, depressed, or hopeless: not at all Exam Narrative Exam Narrative: General: No distress, age-appropriate Skin: Warm, dry, no pallor. No rash. Head: Normocephalic, atraumatic. Neck: Supple, non-tender. Eye: Pupils are equal, round and EOMI. No scleral icterus. Ears, Nose, Mouth, and Throat: No nasal mucosal hypertrophy. Oral mucosa is moist, no posterior oropharynx erythema, uvula is mid-line Cardiovascular: Regular Rate and Rhythm without murmur, gallop or rub. Respiratory: No accessory muscle use or respiratory distress. Lungs are clear to auscultation, no wheezing, rales or rhonchi Chest Wall: no tenderness Back: No midline thoracic or lumbar vertebral tenderness. Musculoskeletal: Full ROM of all extremities, no calf or popliteal tenderness GI: Abdomen is soft, non-distended, non tender to palpation. No masses appreciated. No rebound, guarding, or rigidity noted. Neurological: A&O x4. No cranial nerve dysfunction observed. No truncal ataxia. Moves all extremities. Sensation intact. Psychiatric: Cooperative and interactive. Normal mood and affect. Constitutional Vital Signs, click to edit/add: Last Vital Signs Temp 98.1 F 03/21/25 17:28 Pulse 95 H 03/21/25 20:30 Resp 23 H 03/21/25 20:30 BP 136/94 H 03/21/25 20:04 Pulse Ox 95 03/21/25 18:24 O2 Del Method Room Air 03/21/25 17:28 Course Vital Signs Vital signs: Vital Signs Temperature 98.1 F 03/21/25 17:28 Pulse Rate 109 H 03/21/25 17:28 Respiratory Rate 18 03/21/25 17:28 Blood Pressure 163/101 H 03/21/25 17:28 Pulse Oximetry 98 03/21/25 17:28 Oxygen Delivery Method Room Air 03/21/25 17:28 Temperature 98.1 F 03/21/25 17:28 Pulse Rate 95 H 03/21/25 20:30 Respiratory Rate 23 H 03/21/25 20:30 Blood Pressure 136/94 H 03/21/25 20:04 Pulse Oximetry 95 03/21/25 18:24 Oxygen Delivery Method Room Air 03/21/25 17:28 Medical Decision Making MDM Narrative Medical decision making narrative: The patient is a 39-year-old male presenting with palpitations, pallor, and persistent dysuria. Initial evaluation revealed sinus tachycardia (109 bpm), troponin negative, and EKG with nonspecific ST/T wave changes unchanged from prior. Drug panel only positive for cannabinoids. Laboratory studies demonstrated significant hyperglycemia (glucose 290 mg/dL), glucosuria >1000 mg/dL, trace ketones, mild renal dysfunction (Cr 1.4, GFR 56), and normal anion gap/metabolic profile (CO2 28, AG 12.5), consistent with hyperglycemia without DKA. CXR, CBC, and TSH were unremarkable. UA also showed small occult blood; dysuria etiology remains unclear. Gonorrhea/ Chlamydia test ordered and pending. Patient received 1L NS with improvement in glucose to 196 mg/dL and stabilization of vitals, HR improved into 80s-90s. Given the absence of acute cardiac or infectious pathology, he was started on Metformin with diabetes education and resources provided. Patient is agreeable with plan and will follow up with PCP for further labs and management, repeat urinalysis, and ongoing diabetes care. Differential Diagnosis Differential Diagnosis: ACS, Arrhythmia, Drug induced tachy, UTI, STI Lab Data Lab results reviewed: Yes I reviewed the patient's lab results Labs: Lab Results 03/21/25 03/21/25 03/21/25 Range/Units 17:37 18:00 20:35 WBC 6.9 (4.0-11.0) 10^3/uL RBC 5.23 (4.70-6.10) 10^6/uL Hgb 15.9 (14.0-18.0) g/dL Hct 44.7 (42.0-54.0) % MCV 85.5 (80.0-94.0) fL MCH 30.4 (25.9-34.0) pg MCHC 35.6 H (29.9-35.2) g/dL RDW 12.1 (11.0-15.0) % Plt Count 199 (150-450) 10^3/uL MPV 10.2 (9.5-13.5) fL Neut % (Auto) 63.3 (43.0-75.0) % Lymph % (Auto) 30.8 (20.5-60.0) % [place] % (Auto) 4.9 (1.7-12.0) % Eos % (Auto) 0.6 L (0.9-7.0) % Baso % (Auto) 0.1 L (0.2-2.0) % Neut # (Auto) 4.4 (1.4-6.5) 10^3/uL Lymph # (Auto) 2.1 (1.2-3.8) 10^3/uL [place] # (Auto) 0.3 (0.3-0.8) 10^3/uL Eos # (Auto) 0.0 (0.0-0.7) 10^3/uL Baso # (Auto) 0.0 (0.0-0.1) 10^3/uL Abs Immat Gran (auto) 0.02 (0.00-0.03) 10^3/uL Imm/Tot Granulo (auto) 0.3 (0.0-0.5) % Sodium 138 (136-145) mmol/L Potassium 3.8 (3.5-5.1) mmol/L Chloride 101 (98-107) mmol/L Carbon Dioxide 28.3 (21.0-32.0) mmol/L Anion Gap 12.5 BUN 14.0 (7.0-18.0) mg/dL Creatinine 1.43 H (0.70-1.30) mg/dL Est GFR ( Amer) >60 (>=60 mL/min/1.73m^2) Est GFR (Non-Af Amer) 56 L (>=60 mL/min/1.73m^2) BUN/Creatinine Ratio 9.8 Glucose 290 H (74-106) mg/dL Calcium 8.7 (8.5-10.1) mg/dL Total Bilirubin 0.5 (0.2-1.0) mg/dL AST 32 (15-37) U/L ALT 54 (16-63) U/L Alkaline Phosphatase 76 (46-116) U/L Troponin I High Sens <4.0 L (4.0-76.1) pg/mL Total Protein 8.0 (6.4-8.2) g/dL Albumin 3.5 (3.4-5.0) g/dL Globulin 4.5 g/dL Albumin/Globulin Ratio 0.8 Lipase 53.0 (16.0-77.0) U/L TSH 1.235 (0.358-3.740) uIU/mL Urine Color Yellow (YELLOW) Urine Clarity Clear (CLEAR) Urine pH 6.0 (5.0-9.0) Ur Specific [place] 1.025 (1.005-1.025) Urine Protein Negative (NEG/TRACE) mg/dL Urine Glucose (UA) >=1000 A (NEGATIVE) mg/dL Urine Ketones Trace A (NEGATIVE) mg/dL Urine Occult Blood Small A (NEGATIVE) Urine Nitrite Negative (NEGATIVE) Urine Bilirubin Negative (NEGATIVE) Urine Urobilinogen 0.2 (0.2-1.0) EU/dL Ur Leukocyte Esterase Negative (NEGATIVE) Urine RBC 0-2 (0-2) #/HPF Urine WBC 0-2 A (NONE SEEN) #/HPF Ur Squamous Epith Cells Rare (NONE/RARE) #/LPF Urine Crystals None seen (None Seen) #/HPF Urine Bacteria Trace A (NONE SEEN) #/HPF Urine Casts Seen A (NONE SEEN) #/LPF Hyaline Casts Rare Urine Mucus Trace A (NONE SEEN) Urine Opiates Screen Negative (NEGATIVE) Ur Buprenorphine Scrn Negative (NEGATIVE) Ur Oxycodone Screen Negative (NEGATIVE) Urine Methadone Screen Negative (NEGATIVE) Ur Barbiturates Screen Negative (NEGATIVE) U Tricyclic Antidepress Negative (NEGATIVE) Ur Phencyclidine Scrn Negative (NEGATIVE) Ur Amphetamines Screen Negative (NEGATIVE) U Methamphetamines Scrn Negative (NEGATIVE) U Benzodiazepines Scrn Negative (NEGATIVE) Urine Cocaine Screen Negative (NEGATIVE) U Cannabinoids Screen Positive A (NEGATIVE) POC Glucose 196 H (74-106) mg/dL Imaging Data Chest x-ray: Attestation: I have reviewed the pertinent imaging results. Radiologist's impression: ITS Impressions Chest X-Ray 03/21/25 18:09 IMPRESSION: No acute process. Impression dictated by: Ashok Chavez M.D. 03/21/2025 6:23 PM Dictation Location: [place] [address] Electronically authenticated by: [id number] Y Date: 03/21/2025 18:23 ECG Data Attestation: ?I have reviewed the pertinent ECG results. Discharge Plan Discharge Chief Complaint: Chest Pain Clinical Impression: Hyperglycemia Patient Disposition: Home, Self-Care Time of Disposition Decision: 20:48 Condition: Good Mode of Transportation: Private Vehicle Prescriptions / Home Meds: New metformin 500 mg tablet 500 mg PO DAILY Qty: 30 0RF No Action aspirin [Ecotrin Low Strength] 81 mg tablet,delayed release (DR/EC) 81 mg PO DAILY meclizine [Antivert] 25 mg tablet,chewable 25 mg PO TID PRN (Reason: dizziness or vertigo) Qty: 7 0RF Print Language: Polish Instructions: Nondiabetic Hyperglycemia (ED) Additional Instructions: Patient should return immediately to ED if any of the following occur: * Persistent or worsening chest pain * Shortness of breath, palpitations, dizziness, syncope * Severe abdominal pain, vomiting, or signs of dehydration * Fever, dysuria worsening Referrals: MERNA SORIANO [Primary Care Provider, Family Practice] - 1 week Discharge Date/Time: 03/21/25 21:00
[2025-03-21 18:00] LABS: Glucose Urine UA >=1000 mg/dL (NEGATIVE)
--- NOTE | 2025-03-21 18:09 | XR_ITS ---
[facility] [place] [id number] Patient Name: CHUCK PACKER MRN: [id number] date: 1985 Sex: M Assigned Patient Location: ER Current Patient Location: ER Accession/Order Number: [id number] Exam Date: 03/21/2025 18:14 Report Date: 03/21/2025 18:23 At the request of: BRENT RIZZO Procedure: XR chest 1V Plain film chest Single view HISTORY: Chest pain. Shortness of breath COMPARISON: 03/17/2025 FINDINGS: SUPPORT DEVICES: None POSTSURGICAL CHANGES: None HEART: Within normal limits PULMONARY JERRY: Within normal limits MEDIASTINUM: Unremarkable LUNGS AND PLEURA: No acute lung process, pleural effusion or pneumothorax identified. BONY STRUCTURES: Intact ADDITIONAL FINDINGS None XR/XR chest 1V IMPRESSION: No acute process. Impression dictated by: Ashok Chavez M.D. 03/21/2025 6:23 PM Dictation Location: [facility] [employer] Electronically authenticated by: [id number] Y Date: 03/21/2025 18:23
[2025-03-21 18:12] LABS: Cannabinoid Screen Urine POSITIVE (NEGATIVE); Methamphetamines Screen Urine NEGATIVE (NEGATIVE); Tricyclic Antidepressant Urine NEGATIVE (NEGATIVE)
[2025-03-21 18:14] LABS: Cast Seen? SEEN #/LPF (NONE SEEN); Crystals Seen? None Seen #/HPF (None Seen)
[2025-03-21 18:22] LABS: Hematocrit 44.7 % (42.0-54.0); Hemoglobin 15.9 g/dL (14.0-18.0); Immature Granulocytes Abs Auto 0.02 10^3/uL (0.00-0.03); Immature Granulocytes Pct Auto 0.3 % (0.0-0.5); Lymphocytes Absolute Auto 2.1 10^3/uL (1.2-3.8); Mean Corpuscular HGB Conc 35.6 g/dL (29.9-35.2); Mean Corpuscular Hemoglobin 30.4 pg (25.9-34.0); Mean Corpuscular Volume 85.5 fL (80.0-94.0); Platelet Count 199 10^3/uL (150-450); Red Blood Count 5.23 10^6/uL (4.70-6.10); White Blood Count 6.9 10^3/uL (4.0-11.0)
--- OUTSIDE RECORDS SUMMARY | 2025-03-21 18:34 | XMS_ITS | Clinical Summary ---
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 Uihaufwqna36/23/2024Erectile pgtkqaahfqc90/23/2024Generalized anxiety disorder 02/23/2024GERD (gastroesophageal reflux disease)02/23/2024History of shingles 02/23/2024IBS (irritable bowel syndrome)02/23/20244984Byturwyjb88/23/2024Morbid szukoad4502/23/2024bdominal pain, vqbfeybidm50/23/2024anic disorder without agoraphobia with mild panic xmfmqwz3402/23/2024ectal ervbmcrz21/23/2024 Dejlz-Knrzrjodc-Hqskt vdenzzjl70/23/2024nal pain02/23/2024 Social History Tobacco UseTypesPacks/DayYears UsedDateSmoking Tobacco: [...] file03/14/2024Sexually AbusedNot on file03/14/2024HQ-2AnswerDate RecordedPatient Health Questionnaire-2 Tyccr76305/14/2023Sex and Gender InformationValueDate RecordedSex Assigned at BirthNot on fileLegal SexMale 02/11/2024 3:19 PM EDTGender IdentityNot on fileSexual OrientationNot on file Last Filed Vital Signs Vital SignReadingTime TakenCommentsBlood Bsmpnkbw661/8903/14/2024 2:20 PM EST Yrnsg842103/14/2024 2:20 PM AYYQxtydilcqdp31.6 ??C (97.8 ??F)03/14/2024 2:20 PM ESTRespiratory Yzzz8125 9:45 AM EDTOxygen Hoikxnzmts25%03/14/2024 2:20 PM ESTInhaled Oxygen Concentration--Rzynzw284 kg (314 lb 3.2 oz)03/14/2024 2:20 PM DOCXfwhvu629.5 cm (6' 3 )03/14/2024 2:20 PM ESTBody Mass Index39.27105/14/2023 2:20 PM EST Plan of Treatment Health MaintenanceDue DateLast DoneCommentsVaricella Vaccines (1 of 2 - 13+ 2- dose series)08/19/2000Hepatitis B Vaccines (1 of 3 - 19+ 3-dose series) 08/19/2006Pneumococcal Vaccine: Pediatrics (0 to 5 Years) and At-Risk Patients (6 to 64 Years) (1 of 2 - PCV)08/19/2006dult Sgksaos4608/19/2009HPV Vaccines (1 - 3-dose SCDM series)08/19/2014COVID-19 Vaccine (1 - season)2025 Influenza Vaccine (#1)2025Depression Ljamristx50Zoster Vaccines (1 of 2)08/19/2037HIB VaccinesAged OutNo longer [...] (Latest Code Status on File) Date ActivatedDate VapkjqdahclRjarjwtk23/29/2024 6:22 AM02/29/2024 12:22 PM
--- OUTSIDE RECORDS SUMMARY | 2025-03-21 18:35 | XMS_ITS | Patient Health Record ---
Author Organization [facility] in [place] Address [address] [place] [address] Care Team Providers Care Triage Nurse Name Role Phone Leighann Soriano Primary Care Provider Martínez Vail [phone] Allergies Allergen (clinical drug ingredient) Drug/Non Drug Allergy documented on EMR Reaction Allergy Type Onset Date Status erythromycin Erythromycin Base hives Drug Allergy Activepenicillin VPenicillin V PotassiumhivesDrug AllergyActive Results Component Value Reference Range Notes CBC AUTO DIFF Reviewed date:01/18/2025 10:48:48 AM Interpretation: Performing Lab: Notes/Report: [facility] , White Blood Count 8.4 4.0-11.0 10 3/uL Red Blood Count5.214.70-6.10 10 6/mCDtkbzouxho02.714.0-18.0 g/rLIoiqypmuvg44.7 42.0-54.0 %Mean Corpuscular Kysrat45.980.0-94.0 fLMean Corpuscular Hemoglobin 30.125.9-34.0 pgMean Corpuscular HGB Conc35.929.9-35.2 g/dLRed Cell Distribution Width11.911.0-15.0 %Platelet Zywco656448-410 10 3/uLMean Platelet Volume9.89.5- 13.5 fLNeutrophils Percent Auto63.743.0-75.0 %Lymphocytes Percent Auto30.520.5- 60.0 %Monocytes Percent Auto5.31.7-12.0 %Eosinophils Percent Auto0.20.9-7.0 % Basophils Percent Auto0.10.2-2.0 %Immature Granulocytes Pct Auto0.20.0-0.5 % Neutrophils Absolute Auto5.41.4-6.5 10 3/uLLymphocytes Absolute Auto2.61.2-3.8 10 3/uLMonocytes Absolute Auto0.50.3-0.8 10 3/uLEosinophils Absolute Auto0.00.0- 0.7 10 3/uLBasophils Absolute Auto0.00.0-0.1 10 3/uLImmature Granulocytes Abs Auto0.020.00-0.03 10 3/uLPerforming Lab:see noteML - [facility] LB DRUG SCREEN RAPID (URINE) Reviewed date:01/18/2025 10:48:48 AM Interpretation: Performing Lab: Notes/Report: [facility] ,Cannabinoid Screen UrinePOSITIVENEGATIVEPhencyclidine Screen UrineNEGATIVE NEGATIVECocaine Screen [...] Antidepressants): 300 ng/mL Performing Lab:see noteML - [facility] LBPROF CHEM 8 (BAS METB) Reviewed date:01/18/2025 10:48:48 AM Interpretation: Performing Lab: Notes/Report: [facility] ,Pzcuor678258-492 mmol/LPotassium4.03.5-5.1 mmol/RDvgargmz91192-140 mmol/LCarbon Oaskuwv55.221.0-32.0 mmol/LAnion Gap12.8Czwrtbj51224-632 mg/dLBlood Urea Lgvvstsr46.07.0-18.0 mg/dLCreatinine1.070.70-1.30 mg/dLEstimated GFR ( Anupama>60>=60 mL/min/1.73m 2Estimated GFR (Non- Tia>60>=60 mL/min/1.73m 2BUN Creatinine Ratio15.9Pqhrngv4.08.5-10.1 mg/dLPerforming Lab:see noteML - [facility] LBTroponin I High Sensitivity Reviewed date:01/18/2025 10:48:48 AM Interpretation: Performing Lab: Notes/Report: [facility] ,Troponin I High Sensitivity<4.04.0-76.1 pg/mL CUT-OFF POINTS HAVE BEEN ESTABLISHED BASED ON THE FOURTH UNIVERSAL DEFINITION OF MYOCARDIAL INFARCTION. THE UPPER REFERENCE LIMIT (URL) OF TROPONIN, DEFINED THE 99TH PERCENTILE OF cTnI DISTRIBUTION IN A REFERENCE POPULATION, HAS BEEN CONFIRMED THE DECISION THRESHOLD FOR SD DIAGNOSIS. 99TH PERCENTILE = 76.2 PG/ML NOTE: HIGH-SENSITIVITY TROPONIN ASSAY IS NOT INTENDED TO BE USED IN ISOLATION BUT SHOULD BE INTERPRETED IN CONJUNCTION WITH OTHER DIAGNOSTIC AND CLINICAL INFORMATION. Performing Lab:see noteML - [facility] WMOALH-TaT-6 Ag* Reviewed date:01/18/2025 10:48:48 AM Interpretation: Performing Lab: Notes/Report: [facility] ,SARS-CoV-2 AgNEGATIVENEGATIVE This test has not been [...] revoked sooner. Performing Lab:see noteML - [facility] LBECG 12 lead Reviewed date:01/18/2025 10:48:48 AM Interpretation: Performing Lab: Notes/Report: Source Facility: [facility] [place] [address] [place] [address] Electrocardiograph Report Signed Patient: CHUCK PACKER MR#: [id number] : 1985 Acct:[id number] Age/Sex: 39 / M ADM Date: 01/17/25 Loc: ER Attending Dr: Ordering Physician: Kacie Rodriguez Date of Service: 01/17/25 Procedure(s): ECG 12 lead Accession Number(s): [id number] cc: [facility] Test Date: 2025-01-17 Pat Name: CHUCK PACKER Department: Room: - Gender: Male Ore Tester: : 1985 Requested By: 2256 Order Number: [id number] Reading MD: JITENDRA FOOTE M.D. Measurements Intervals [place] Rate: 94 P: 54 [place]: 130 QRS: 44 QRSD: 74 T: 49 QT: 342 QTc: 394 Interpretive Statements [address] elevation, probably early repolarization 9130 borderline ECG Compared to ECG 07/30/2024 14:12:13 ST (T wave) deviation now present Early repolarization now present Left ventricular hypertrophy no longer present Electronically Signed On 01-17-2025 17:53:50 EDT by JITENDRA FOOTE M.D. Dictated By: JITENDRA FOOTE Signed By: 01/17/25 1754 DD/ 1339 TD/TT: Supply Chain Engineer:NETTIE verdugo 1V Reviewed date:01/18/2025 10:48:48 AM Interpretation: Performing Lab: Notes/Report: Source Facility: [facility] [place] [address] [place] [address] XRay Report Signed Patient: CHUCK PACKER MR#: [id number] : 1985 Acct:[id number] Age/Sex: 39 / M ADM Date: 01/17/25 Loc: ER Attending Dr: Ordering Physician: Kacie Rodriguez Date of Service: 01/17/25 Procedure(s): XR chest 1V Accession Number(s): [id number] cc: LEIGHANN SORIANO ; Kacie Rodriguez [place] [id number] Patient Name: CHUCK PACKER MRN: [facility]:[id number] date: 1985 Sex: M Assigned Patient Location: ER Current Patient Location: ED.MAIN Accession/Order Number: [id number] Exam Date: 01/17/2025 14:02 Report Date: 01/17/2025 14:48 At the request of: KACIE RIZZO Procedure: XR chest 1V MATTHIAS CHEST: CLINICAL HISTORY: Chest pain COMPARISON: 07/15/2024 Unremarkable cardiac mediastinal silhouette. Lungs clear. No effusion or pneumothorax. XR/XR chest 1V IMPRESSION: NEGATIVE ACUTE PLEURAL-PARENCHYMAL DISEASE. Impression dictated by: Chandler Fields M.D. 01/17/2025 2:48 PM Dictation Location: [place] [address] Electronically authenticated by: [id number] Y Date: 01/17/2025 14:48 Dictated By: Chandler Fields M.D. Signed By: 01/17/25 1450 DD/ 1448 TD/TT: Supply Chain Engineer:Troponin I High Sensitivity Reviewed date:01/18/2025 10:48:48 AM Interpretation: Performing Lab: Notes/Report: [facility] ,Troponin I High Sensitivity4.24.0-76.1 pg/mL CUT-OFF POINTS HAVE BEEN ESTABLISHED BASED ON THE FOURTH UNIVERSAL DEFINITION OF MYOCARDIAL INFARCTION. THE UPPER REFERENCE LIMIT (URL) OF TROPONIN, DEFINED THE 99TH PERCENTILE OF cTnI DISTRIBUTION IN A REFERENCE POPULATION, HAS BEEN CONFIRMED THE DECISION THRESHOLD FOR SD DIAGNOSIS. 99TH PERCENTILE = 76.2 PG/ML NOTE: HIGH-SENSITIVITY TROPONIN ASSAY IS NOT INTENDED TO BE USED IN ISOLATION BUT SHOULD BE INTERPRETED IN CONJUNCTION WITH OTHER DIAGNOSTIC AND CLINICAL INFORMATION. Performing Lab:see noteML - [facility] LBCBC AUTO DIFF Reviewed date:01/29/2025 09:03:45 AM Interpretation: Performing Lab: Notes/Report: [facility] ,White Blood Count7.74.0-11.0 10 3/uLRed Blood Count5.164.70-6.10 10 6/uL Hutakrphot45.814.0-18.0 g/wZLawapgiodc76.342.0-54.0 %Mean Corpuscular Ynbhyq68.9 80.0-94.0 fLMean Corpuscular Cewftlhhnq93.625.9-34.0 pgMean Corpuscular HGB Conc 36.529.9-35.2 g/dLRed Cell Distribution Width12.011.0-15.0 %Platelet Ftudi538 150-450 10 3/uLMean Platelet Volume9.89.5-13.5 fLNeutrophils Percent Auto60.1 43.0-75.0 %Lymphocytes Percent Auto32.820.5-60.0 %Monocytes Percent Auto6.11.7- 12.0 %Eosinophils Percent Auto0.40.9-7.0 %Basophils Percent Auto0.30.2-2.0 % Immature Granulocytes Pct Auto0.30.0-0.5 %Neutrophils Absolute Auto4.61.4-6.5 10 3/uLLymphocytes Absolute Auto2.51.2-3.8 10 3/uLMonocytes Absolute Auto0.50.3-0.8 10 3/uLEosinophils Absolute Auto0.00.0-0.7 10 3/uLBasophils Absolute Auto0.00.0- 0.1 10 3/uLImmature Granulocytes Abs Auto0.020.00-0.03 10 3/uLPerforming Lab:see noteML - [facility] LBD-DIMER Reviewed date:01/29/2025 09:03:45 AM Interpretation: Performing Lab: Notes/Report: [facility] ,D Dimer<0.19<=0.59 mg/L FEU Increases in D-Dimer [...] therapy, stress, and generalized hospitalization. Performing Lab:see note - [facility] LBPROF CHEM 8 (BAS METB) Reviewed date:01/29/2025 09:03:45 AM Interpretation: Performing Lab: Notes/Report: [facility] ,Bjgknu907315-306 mmol/LPotassium3.93.5-5.1 mmol/HLgtibswn87307-457 mmol/LCarbon Cekutpl18.021.0-32.0 mmol/LAnion Gap15.1Rulxzbc41655-555 mg/dLBlood Urea Vkyqhtvn63.07.0-18.0 mg/dLCreatinine0.940.70-1.30 mg/dLEstimated GFR ( Anupama>60>=60 mL/min/1.73m 2Estimated GFR (Non- Tia>60>=60 mL/min/1.73m 2BUN Creatinine Ratio13.6Gakerzz1.18.5-10.1 mg/dLPerforming Lab:see note - [facility] LBTroponin I High Sensitivity Reviewed date:01/29/2025 09:03:45 AM Interpretation: Performing Lab: Notes/Report: [facility] ,Troponin I High Sensitivity4.94.0-76.1 pg/mL CUT-OFF POINTS HAVE BEEN ESTABLISHED BASED ON THE FOURTH UNIVERSAL DEFINITION OF MYOCARDIAL INFARCTION. THE UPPER REFERENCE LIMIT (URL) OF TROPONIN, DEFINED THE 99TH PERCENTILE OF cTnI DISTRIBUTION IN A REFERENCE POPULATION, HAS BEEN CONFIRMED THE DECISION THRESHOLD FOR SD DIAGNOSIS. 99TH PERCENTILE = 76.2 PG/ML NOTE: HIGH-SENSITIVITY TROPONIN ASSAY IS NOT INTENDED TO BE USED IN ISOLATION BUT SHOULD BE INTERPRETED IN CONJUNCTION WITH OTHER DIAGNOSTIC AND CLINICAL INFORMATION. Performing Lab:see noteML - [facility] LBECG 12 lead Reviewed date:01/29/2025 03:35:15 PM Interpretation: Performing Lab: Notes/Report: Source Facility: [facility]-[address] [place] [address] [place] [address] Electrocardiograph Report Signed Patient: CHUCK PACKER MR#: [id number] : 1985 Acct:[id number] Age/Sex: 39 / M ADM Date: 01/28/25 Loc: ER Attending Dr: Ordering Physician: Leyda Barrientos M.D. Date of Service: 01/28/25 Procedure(s): ECG 12 lead Accession Number(s): [id number] cc: [facility] Test Date: 2025-01-28 Pat Name: CHUCK PACKER Department: Room: - Gender: Male Ore Tester: : 1985 Requested By: 1030 Order Number: [id number] Reading MD: TANK GOETZ Measurements Intervals [place] Rate: 91 P: 57 KY: 136 QRS: 34 QRSD: 74 T: 19 QT: 328 QTc: 377 Interpretive Statements [address] elevation probable early repolariation Borderline ECG Compared to ECG 01/17/2025 13:39:49 No significant change Electronically Signed On 01-29-2025 15:14:36 EDT by TANK GOETZ Dictated By: Tank Goetz M.D. Signed By: 01/29/25 1514 DD/ 1224 TD/TT: Supply Chain Engineer:NETTIE verdugo 1V Reviewed date:01/29/2025 09:03:45 AM Interpretation: Performing Lab: Notes/Report: Source Facility: [place] [address] [place] [address] XRay Report Signed Patient: CHUCK PACKER MR#: [id number] : 1985 Acct:[id number] Age/Sex: 39 / M ADM Date: 01/28/25 Loc: ER Attending Dr: Ordering Physician: Leyda Barrientos M.D. Date of Service: 01/28/25 Procedure(s): XR chest 1V Accession Number(s): [id number] cc: LEIGHANN SORIANO ; Leyda Barrientos M.D. [place] [id number] Patient Name: CHUCK PACKER MRN: [id number] date: 1985 Sex: M Assigned Patient Location: ED.MAIN Current Patient Location: ED.MAIN Accession/Order Number: [id number] Exam Date: 01/28/2025 13:33 Report Date: 01/28/2025 [...] Enamorado M.D. 01/28/2025 2:07 PM Dictation Location: [place] [address] Electronically authenticated by: [id number] Y Date: 01/28/2025 14:07 Dictated By: Antione Enamorado M.D. Signed By: 01/28/25 1410 DD/ 1407 TD/TT: Supply Chain Engineer:CBC AUTO DIFF Reviewed date:03/19/2025 10:38:37 AM Interpretation: Performing Lab: Notes/Report: [facility] ,White Blood Count7.14.0-11.0 10 3/uLRed Blood Count5.474.70-6.10 10 6/uL Bevnvyerwf31.614.0-18.0 g/tYXlfhjttffo73.142.0-54.0 %Mean Corpuscular Fzuimj50.3 80.0-94.0 fLMean Corpuscular Kgwfzwrwga80.325.9-34.0 pgMean Corpuscular HGB Conc 36.029.9-35.2 g/dLRed Cell Distribution Width12.111.0-15.0 %Platelet Cizoh831 150-450 10 3/uLMean Platelet Vvuivb82.19.5-13.5 fLNeutrophils Percent Auto58.3 43.0-75.0 %Lymphocytes Percent Auto35.320.5-60.0 %Monocytes Percent Auto5.61.7- 12.0 %Eosinophils Percent Auto0.40.9-7.0 %Basophils Percent Auto0.10.2-2.0 % Immature Granulocytes Pct Auto0.30.0-0.5 %Neutrophils Absolute Auto4.11.4-6.5 10 3/uLLymphocytes Absolute Auto2.51.2-3.8 10 3/uLMonocytes Absolute Auto0.40.3-0.8 10 3/uLEosinophils Absolute Auto0.00.0-0.7 10 3/uLBasophils Absolute Auto0.00.0- 0.1 10 3/uLImmature Granulocytes Abs Auto0.020.00-0.03 10 3/uLPerforming Lab:see noteML - [facility] LBDRUG SCREEN RAPID (URINE) Reviewed date:03/19/2025 10:38:37 AM Interpretation: Performing Lab: Notes/Report: [facility] ,Cannabinoid Screen UrinePOSITIVENEGATIVEPhencyclidine Screen UrineNEGATIVE NEGATIVECocaine Screen [...] 300 ng/mL Performing Lab:see noteML - [facility] LBINFLUENZA A AND B AG Reviewed date:03/19/2025 10:38:37 AM Interpretation: Performing Lab: Notes/Report: [facility] ,Influenza Virus A AntigenNegative Negative for Flu [...] of the test. Performing Lab:see noteML - [facility] LBLIPASE Reviewed date:03/19/2025 10:38:37 AM Interpretation: Performing Lab: Notes/Report: [facility] ,Qxovxg88.016.0-77.0 U/LPerforming Lab:see noteML - [facility] LBPROF 14(COMP METB) Reviewed date:03/19/2025 10:38:37 AM Interpretation: Performing Lab: Notes/Report: [facility] ,Svxlrr010465-624 mmol/LPotassium3.93.5-5.1 mmol/EExlhgjqc20252-296 mmol/LCarbon Oodxhrx35.321.0-32.0 mmol/LAnion Gap13.6Wvtyoks15888-442 mg/dLBlood Urea Fovwsbva93.07.0-18.0 mg/dLCreatinine1.030.70-1.30 mg/dLEstimated GFR ( Anupama>60>=60 mL/min/1.73m 2Estimated GFR (Non- Tia>60>=60 mL/min/1.73m 2BUN Creatinine Ratio13.9Qauympu0.38.5-10.1 mg/dLBilirubin Total0.70.2-1.0 mg/dL Aspartate Amino Glgvbaiqijf3595-60 U/LAlanine Scsnoedamwegnijs5423-45 U/L Alkaline Rozfourowqk4235-909 U/LTotal Protein8.66.4-8.2 g/dLAlbumin Level3.93.4- 5.0 g/dLGlobulin4.7Albumin Globulin Ratio0.8Performing Lab:see noteML - [facility] LBTroponin I High Sensitivity Reviewed date:03/19/2025 10:38:37 AM Interpretation: Performing Lab: Notes/Report: [facility] ,Troponin I High Sensitivity5.34.0-76.1 pg/mL CUT-OFF POINTS HAVE BEEN ESTABLISHED BASED ON THE FOURTH UNIVERSAL DEFINITION OF MYOCARDIAL INFARCTION. THE UPPER REFERENCE LIMIT (URL) OF TROPONIN, DEFINED THE 99TH PERCENTILE OF cTnI DISTRIBUTION IN A REFERENCE POPULATION, HAS BEEN CONFIRMED THE DECISION THRESHOLD FOR SD DIAGNOSIS. 99TH PERCENTILE = 76.2 PG/ML NOTE: HIGH-SENSITIVITY TROPONIN ASSAY IS NOT INTENDED TO BE USED IN ISOLATION BUT SHOULD BE INTERPRETED IN CONJUNCTION WITH OTHER DIAGNOSTIC AND CLINICAL INFORMATION. Performing Lab:see noteML - [facility] RRSVEN-QgY-9 Ag* Reviewed date:03/19/2025 10:38:37 AM Interpretation: Performing Lab: Notes/Report: [facility] ,SARS-CoV-2 AgNEGATIVENEGATIVE This test has not been [...] revoked sooner. Performing Lab:see noteML - [facility] LBUA Micro, reflex to culture Reviewed date:03/19/2025 10:38:37 AM Interpretation: Performing Lab: Notes/Report: [facility] ,Color UrineYELLOWYELLOWClarity UrineCLEARCLEARSpecific Mcdavid Urine1.025 1.005-1.025pH Urine6.05.0-9.0Protein UrineTRACENEG/TRACE mg/dLGlucose Urine UA NEGATIVENEGATIVE mg/dLBilirubin UrineNEGATIVENEGATIVEKetones UrineTRACENEGATIVE mg/dLBlood UrineSMALLNEGATIVENitrite UrineNEGATIVENEGATIVEUrobilinogen Urine0.2 0.2-1.0 EU/dLLeukocyte Esterase UrineNEGATIVENEGATIVEWBC UrineNONE SEENNONE SEEN #/HPFRBC Urine0-20-2 #/HPFBacteria UrineTRACENONE SEEN #/HPFMucus UrineTRACENONE SEENSquamous Epithelial Cell UrineRARENONE/RARE #/LPFCrystals Seen?None SeenNone Seen #/HPFCast Seen?NONE SEENNONE SEEN #/LPFPerforming Lab:see noteML - [facility] LBECG 12 lead Reviewed date:03/19/2025 10:38:37 AM Interpretation: Performing Lab: Notes/Report: Source Facility: [place] [address] [place] [address] Electrocardiograph Report Signed Patient: CHUCK PACKER MR#: [id number] : 1985 Acct:[id number] Age/Sex: 39 / M ADM Date: Loc: ER Attending Dr: Ordering Physician: Jil Benitez Date of Service: 03/17/25 Procedure(s): ECG 12 lead Accession Number(s): [id number] cc: [facility] Test Date: 2025-03-17 Pat Name: CHUCK PACKER Department: Room: - Gender: Male Ore Tester: : 1985 Requested By: 0919 Order Number: [id number] Reading MD: JITENDRA FOOTE M.D. Measurements Intervals [place] Rate: 89 P: 44 KY: 138 QRS: 26 QRSD: 80 T: 46 QT: 334 QTc: 381 Interpretive Statements 1100 Sinus rhythm [address] elevation [address] Twave abnormality 9130 borderline ECG Compared to ECG 01/28/2025 12:24:48 No significant changes Electronically Signed On 03-17-2025 12:57:47 EST by JITENDRA FOOTE M.D. Dictated By: JITENDRA FOOTE Signed By: 03/17/25 1258 DD/ 1232 TD/TT: Supply Chain Engineer:NETTIE chest 2V Reviewed date:03/19/2025 10:38:37 AM Interpretation: Performing Lab: Notes/Report: Source Facility: [place] [address] [place] [address] XRay Report Signed Patient: CHUCK PACKER MR#: [id number] : 1985 Acct:[id number] Age/Sex: 39 / M ADM Date: Loc: ER Attending Dr: Ordering Physician: Jil Benitez Date of Service: 03/17/25 Procedure(s): XR chest 2V Accession Number(s): [id number] cc: LEIGHANN SORIANO ; Jil Benitez [place] [address] Patient Name: CHUCK PACKER MRN: [facility]:[id number] date: 1985 Sex: M Assigned Patient Location: ER Current Patient Location: ER Accession/Order Number: [id number] Exam Date: 03/17/2025 13:00 Report Date: 03/17/2025 [...] Chavez M.D. 03/17/2025 1:46 PM Dictation Location: [place] [address] Electronically authenticated by: [id number] Y Date: 03/17/2025 13:46 Dictated By: Jil Chavez D.O. Signed By: 03/17/25 1348 DD/ TD/TT: Supply Chain Engineer:CT head/brain wo con Reviewed date:03/19/2025 10:38:37 AM Interpretation: Performing Lab: Notes/Report: Source Facility: [place] [address] [place] [address] CT Scan Report Signed Patient: CHUCK PACKER MR#: [id number] : 1985 Acct:[id number] Age/Sex: 39 / M ADM Date: Loc: ER Attending Dr: Ordering Physician: Jil Benitez Date of Service: 03/17/25 Procedure(s): CT head/brain wo con Accession Number(s): [id number] cc: LEIGHANN SORIANO [place] [id number] Patient Name: CHUCK PACKER MRN: [facility]:[id number] date: 1985 Sex: M Assigned Patient Location: ER Current Patient Location: ER Accession/Order Number: [id number] Exam Date: 03/17/2025 13:00 Report Date: 03/17/2025 [...] Chavez M.D. 03/17/2025 1:45 PM Dictation Location: [place] [address] Electronically authenticated by: [id number] Y Date: 03/17/2025 13:45 Dictated By: Jil Chavez D.O. Signed By: 03/17/25 1347 DD/ TD/TT: Supply Chain Engineer:CBC AUTO DIFF (Not yet reviewed by provider) Interpretation: Performing Lab: Notes/Report: [facility] ,White Blood Count6.94.0-11.0 10 3/uLRed Blood Count5.234.70-6.10 10 6/uL Geyqjjqxta67.914.0-18.0 g/pACevarfjtld00.742.0-54.0 %Mean Corpuscular Ypwudh60.5 80.0-94.0 fLMean Corpuscular Hjhwfgvxsl44.425.9-34.0 pgMean Corpuscular HGB Conc 35.629.9-35.2 g/dLRed Cell Distribution Width12.111.0-15.0 %Platelet Dgjhp025 150-450 10 3/uLMean Platelet Yijmgn63.29.5-13.5 fLNeutrophils Percent Auto63.3 43.0-75.0 %Lymphocytes Percent Auto30.820.5-60.0 %Monocytes Percent Auto4.91.7- 12.0 %Eosinophils Percent Auto0.60.9-7.0 %Basophils Percent Auto0.10.2-2.0 % Immature Granulocytes Pct Auto0.30.0-0.5 %Neutrophils Absolute Auto4.41.4-6.5 10 3/uLLymphocytes Absolute Auto2.11.2-3.8 10 3/uLMonocytes Absolute Auto0.30.3-0.8 10 3/uLEosinophils Absolute Auto0.00.0-0.7 10 3/uLBasophils Absolute Auto0.00.0- 0.1 10 3/uLImmature Granulocytes Abs Auto0.020.00-0.03 10 3/uLPerforming Lab:see noteML - [facility] LBDRUG SCREEN RAPID (URINE) (Not yet reviewed by provider) Interpretation: Performing Lab: Notes/Report: [facility] ,Cannabinoid Screen UrinePOSITIVENEGATIVEPhencyclidine Screen UrineNEGATIVE NEGATIVECocaine Screen [...] 300 ng/mL Performing Lab:see noteML - [facility] LBUA (CLEAN or CATCH) [employer] or MICRO IF IND. (Not yet reviewed by provider) Interpretation: Performing Lab: Notes/Report: [facility] ,Color UrineYELLOWYELLOWClarity UrineCLEARCLEARSpecific Mcdavid Urine1.025 1.005-1.025pH Urine6.05.0-9.0Protein UrineNEGATIVENEG/TRACE mg/dLGlucose Urine UA>=1000NEGATIVE mg/dLBilirubin UrineNEGATIVENEGATIVEKetones UrineTRACENEGATIVE mg/dLBlood UrineSMALLNEGATIVENitrite UrineNEGATIVENEGATIVEUrobilinogen Urine0.2 0.2-1.0 EU/dLLeukocyte Esterase UrineNEGATIVENEGATIVEUrine Microscopic Indicated YESPerforming Lab:see noteML - [facility] LBECG 12 lead (Not yet reviewed by provider) Interpretation: Performing Lab: Notes/Report: Source Facility: [place] [address] Electrocardiograph Report Draft Patient: CHUCK PACKER MR#: [id number] : 1985 Acct:[id number] Age/Sex: 39 / M ADM Date: Loc: ER Attending Dr: Ordering Physician: Kacie Rordiguez Date of Service: 03/21/25 Procedure(s): ECG 12 lead Accession Number(s): [id number] cc: [facility] Test Date: 2025-03-21 Pat Name: CHUCK PACKER Department: Room: - Gender: Male Ore Tester: : 1985 Requested By: 2256 Order Number: [id number] Fly MD: Measurements Intervals [place] Rate: 109 P: 58 KY: 120 QRS: 14 QRSD: 88 T: -59 QT: 318 QTc: 382 Interpretive Statements 1120 Sinus tachycardia [address] depression [address] Twave abnormality 9150 abnormal ECG No previous ECG available for comparison Dictated By: Moises Mata Signed By: DD/ 38 TD/TT: Supply Chain Engineer:XR chest 1V (Not yet reviewed by provider) Interpretation: Performing Lab: Notes/Report: Source Facility: [place] [address] XRay Report Signed Patient: CHUCK PACKER MR#: [id number] : 1985 Acct:[id number] Age/Sex: 39 / M ADM Date: Loc: ER Attending Dr: Ordering Physician: Kacie Rodriguez Date of Service: 03/21/25 Procedure(s): XR chest 1V Accession Number(s): [id number] cc: LEIGHANN SORIANO ; Kacie Rodriguez [place] [address] Patient Name: CHUCK PACKER MRN: [id number] date: 1985 Sex: M Assigned Patient Location: ER Current Patient Location: ER Accession/Order Number: [id number] Exam Date: 03/21/2025 18:14 Report Date: 03/21/2025 18:23 At the request of: KACIE RIZZO Procedure: XR chest 1V Plain film chest Single view HISTORY: Chest pain. Shortness of breath COMPARISON: 03/17/2025 FINDINGS: SUPPORT DEVICES: None POSTSURGICAL CHANGES: None HEART: Within normal limits PULMONARY JERRY: Within normal limits MEDIASTINUM: Unremarkable LUNGS AND PLEURA: No acute lung process, pleural effusion or pneumothorax identified. BONY STRUCTURES: Intact ADDITIONAL FINDINGS None XR/XR chest 1V IMPRESSION: No acute process. Impression dictated by: Jil Chavez M.D. 03/21/2025 6:23 PM Dictation Location: [place] [address] Electronically authenticated by: [id number] Y Date: 03/21/2025 18:23 Dictated By: Jil Chavez D.O. Signed By: 03/21/251824 DD/ 22 TD/TT: Supply Chain Engineer:D-DIMER Reviewed date:01/18/2025 10:48:48 AM Interpretation: Performing Lab: Notes/Report: [facility] ,D Dimer0.20<=0.59 mg/L FEU Increases in D-Dimer [...] and generalized hospitalization. Performing Lab:see noteML - [facility] LBECG 12 lead Reviewed date:08/06/2024 09:47:04 PM Interpretation: Performing Lab: Notes/Report: Source Facility: [facility]-[address] [place] [address] [place] [address] Electrocardiograph Report Signed Patient: CHUCK PACKER MR#: [id number] : 1985 Acct:[id number] Age/Sex: 38 / M ADM Date: 07/30/24 Loc: ER Attending Dr: Ordering Physician: Leyda Barrientos M.D. 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 Measurements Intervals [place] Rate: 95 P: 44 [place]: 120 QRS: 15 QRSD: 76 T: -5 [...] FOOTE Signed By: 07/30/242019 DD/ 1412 TD/TT: Supply Chain Engineer:PROF COLLETTE Becker (BAS METB) Reviewed date:08/06/2024 09:47:04 PM Interpretation: Performing Lab: Notes/Report: [facility] ,[id number] mmol/LPotassium4.03.5-5.1 mmol/RDkrollko10062-703 mmol/LCarbon Svozccc89.321.0-32.0 mmol/LAnion Gap12.9Gftowli19928-328 mg/dLBlood Urea Pfijfkwk71.07.0-18.0 mg/dLCreatinine1.100.70-1.30 mg/dLEstimated GFR ( Anupama>60>=60 mL/min/1.73m 2Estimated GFR (Non- Tia>60>=60 mL/min/1.73m 2BUN Creatinine Ratio11.8Cxdnjny7.98.5-10.1 mg/dLPerforming Lab:see noteML - [facility] L[facility] AUTO DIFF Reviewed date:08/06/2024 09:47:04 PM Interpretation: Performing Lab: Notes/Report: [facility] ,White Blood Count7.44.0-11.0 10 3/uLRed Blood Count4.934.70-6.10 10 6/uL Rovaxqogys47.014.0-18.0 g/aCGbkdwucluv68.142.0-54.0 %Mean Corpuscular Gtbpzc38.4 80.0-94.0 fLMean Corpuscular Tfuwlxaibm29.425.9-34.0 pgMean Corpuscular HGB Conc 35.629.9-35.2 g/dLRed Cell Distribution Width12.611.0-15.0 %Platelet Aysat739 150-450 10 3/uLMean Platelet Volume9.69.5-13.5 fLNeutrophils Percent Auto69.9 43.0-75.0 %Lymphocytes Percent Auto23.820.5-60.0 %Monocytes Percent Auto5.41.7- 12.0 %Eosinophils Percent Auto0.30.9-7.0 %Basophils Percent Auto0.30.2-2.0 % Immature Granulocytes Pct Auto0.30.0-0.5 %Neutrophils Absolute Auto5.21.4-6.5 10 3/uLLymphocytes Absolute Auto1.81.2-3.8 10 3/uLMonocytes Absolute Auto0.40.3-0.8 10 3/uLEosinophils Absolute Auto0.00.0-0.7 10 3/uLBasophils Absolute Auto0.00.0- 0.1 10 3/uLImmature Granulocytes Abs Auto0.020.00-0.03 10 3/uLPerforming Lab:see noteML - [facility] LBCOVID-19, Flu A+B IH Reviewed date:03/19/2025 10:38:37 AM Interpretation: Performing Lab: Notes/Report: COVIDnegFLU AnegFLU BnegControlpos Reason For Referral No Information Medications Medication SIG (Take, Route, Frequency, Duration) Notes Start Date End Date Status predniSONE 20 MG 2 tablet Orally Once a day; Dur ation: 3 days 5ActivetraZODone HCl 50 MG1 tablet at bedtime as needed Orally Once a day; Duration: 30 days5ActiveOndansetron HCl 4 MG1 tablet Orally BID prn; Duration: 7 days06/15/2024tivePantoprazole Sodium 40 MG1 tablet Orally Once a day; Duration: 30 day(s)12/07/2023ctiveMupirocin 2 %1 application Externally Twice a day; Duration: 5 days12/10/2023ctiveOLANZapine 15 MG1 tablet Orally Once a day; Duration: 30 days5ActiveHyoscyamine Sulfate 0.125 MG 2 tabs SL SL [...] Orally Three times a day; Duration: 7 days5Active Divalproex Sodium 250 MGTAKE 1 TABLET BY MOUTH IN THE MORNING AND 2 TABLETS IN THE EVENING; Duration: 30 daysActivelevoFLOXacin 750 MG1 tablet Orally Once a day; Duration: 10 day(s)5ActiveTriamcinolone Acetonide 0.1 %1 application Externally Two times a Week4ActiveVentolin HFA 108 (90 Base) MCG/ACTINHALE 1 TO [...] alcohol in the p ast year? No Pdprzs8InhnorwcxurwchNjsjiksqKQKVJ-P (Standard) Question Answer Notes Did you have a drink containing alcohol in the p ast year? No Isejju1NrvmzjgnhqfwdzPzipmzya Problems Problem Type SNOMED Code ICD Code Onset Dates Problem Status W/U Status Risk Notes Problem Overweight (698492254) Overweight (E66.3) ActiveconfirmedProblemGeneralized anxiety disorder (53272498)Generalized anxiety disorder (F41.1)ActiveconfirmedProblemDepression (150109278)Depression (F32.9) ActiveconfirmedProblemErectile dysfunction (132785654)Erectile dysfunction (N52.9)ActiveconfirmedProblemGastroesophageal reflux disease (271058990)GERD without esophagitis (K21.9)ActiveconfirmedProblemMigraine (90793542)Migraine (G43.909)ActiveconfirmedProblemBronchitis (60425267)Bronchitis (J40)Active confirmedProblemRash (822472304)Rash (R21)ActiveconfirmedProblemUpper respiratory infection (27521161)Upper respiratory infection (J06.9)Active confirmedProblemShingles (3446733)Shingles (B02.9)ActiveconfirmedProblem Hemorrhoids (38023508)Hemorrhoids (K64.9)ActiveconfirmedProblemCurrent smoker (68493570)Current smoker (F17.200)ActiveconfirmedProblemAbdominal discomfort (52685649)Abdominal discomfort (R10.9)ActiveconfirmedProblemPanic attack (678040815)Panic attack (F41.0)ActiveconfirmedProblemBright red blood per rectum (266602645)Bright red blood per rectum (K62.5)ActiveconfirmedProblemAnal fissure (04119470)Rectal fissure (K60.2)ActiveconfirmedProblemPain in limb (10993638) Heel pain, right (M79.671)ActiveconfirmedProblemInsomnia (297964385)Insomnia disorder (G47.00)ActiveconfirmedProblemIrritable bowel syndrome (31729353) Irritable bowel syndrome (IBS) (K58.9)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)Aphzb-Xyjfvwsaw-Vubgc (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)Active confirmedProblemMenopause (433317425)Insomnia associated with menopause (N95.1) Activeconfirmed Vital Signs Heart Rate 109 /min 06/15/2024 Qzemsbjecvm94.4 degrees Zeoctukonj47/04/2809Ssybnbck47 %06/15/2024lood pressure kcwcbyxvs34 mm Hg08/04/20242226Udgdcp49 in08/04/2024lood pressure mm Hg 08/04/20242174Uuzqps347.2 lbs08/04/2024BMI39.31 kg/m208/04/2024 Encounters Encounter Location Date Provider Diagnosis [facility] [address] [place] [address] 06/01/2024 Leighann Maru [facility] [place] [address] 05/26/2024Pamela CramerInsomnia disorder G47.00 ; Rash and other nonspecific skin eruption R21 and [facility].9[facility] [place] [address]/13/2025Pamela CramerGastroenteritis K52.9 [facility] [place] [facility] [place] [address] 07/14/2024Pamela CramerBody aches R52 ; Gastroenteritis K52.9 and V[facility]11.10[facility] [place] [place] [address]/Doug HoyGastroenteritis K52.9[facility] [address] [place] [address]/10/2024Doug HoyCough R05.9 and Acute bronchitis, unspecified organism J20.9[facility] [place] [place] [address]/Pamela CramerBronchitis J40 [facility] [place] [place] [address] 08/04/2024Doug HoyAcute non-recurrent sinusitis, unspecified location J01.90 and Nasal [...] K52.9) push fluids, electrolytes ok for OWN 5Body aches (ICD-10 - R52)07/14/2024Gastroenteritis (ICD-10 - K52.9) has zofran at home rest, push fluids and electrolytes ok for OWN fu if not improving, sx worsen 07/17/2024ronchitis (ICD-10 - J40)fu if not kaawptsgt41/20/2025Gastroenteritis (ICD-10 - K52.9)Get plenty of rest. Stay hydrated by sucking on ice chips or taking small sips of water. You can also try drinking clear soda, clear broths or noncaffeinated sports drinks. Stop eating solid foods for a few hours to let your stomach settle. East back into eating by eating bland, pupj-rh-qqmlfm foods like crackers, toast, gelatin, bananas, rice and chicken. Try to avoid foods/substances including dairy products, caffeine, alcohol, nicotine and fatty or highly seasoned foods. Medications such as ibuprofen or tylenol can make your stomach more upset, so use sparingly if at all. Also avoid kyov-vru-cmyvbil anti-diarrheal medications because it can make it harder for your body to eliminate the virus.5Acute non-recurrent sinusitis, unspecified location (ICD-10 - J01.90)Rest and drink more liquids, especially water. You may use a humidifier or vaporizer to help keep the drainage moist. Gdsd-vwh-cvzwnwr Nasal Saline may help the stuffy and runny nose. Use Ibuprofen and or Tylenol as needed for fever, chills, body aches or pain. Children 5 years old should not be given yugr-qew-zrcmbff cough and cold medications such as guaifenesin and dextromethorphan. If you're over age 5, you may try kedv-umw-treiwcy cold medications such as guaifenesin and dextromethorphan, [...] vaporizer to help keep the drainage moist. Hgjw-ous-lpfoiwf Nasal Saline may help the stuffy and runny nose. Use Ibuprofen and or Tylenol as needed for fever, chills, body aches or pain. Children 5 years old should not be given eklh-vst-trcfali cough and cold medications such as guaifenesin and dextromethorphan. If you're over age 5, you may try zamz-bzd-nqfkjiy cold medications such as guaifenesin and dextromethorphan, [...] go to the emergency room or call [phone] (ICD-10 - F32.9) psych referral sheet given needs to re establish with psych will review meds with Dr Vail Plan Of Treatment Pending Test Test Name Order Date COVID-19, Flu A+B IH 07/14/2024 CBC AUTO DIFF 03/21/2025 DRUG SCREEN RAPID (URINE) 03/21/2025 UA (CLEAN or CATCH) [employer] or MICRO IF IND. 03/21/2025 ECG 12 lead 03/21/2025 XR chest 1V 03/21/2025 Insurance Providers Payer Name Payer Address Payer Phone Subscriber Number Group Number Insured Name Patient Relationship to Insured Coverage Start Date Coverage End Date [employer] [place] [employer] [address] [address] [place] [address] [id number] Jagruti Packer - patient is the [id number] 2020 Medical (General) History Medical History History ICD Code Bronchitis J40 Heel pain, right M79.671 Hemorrhoids K64.9 Upper respiratory infection J06.9 Depression F32.9 Rash R21 Shingles B02.9 Migraine G43.909 Gastro-esophageal reflux disease K21.9 Bright red blood per rectum K62.5 Irritable bowel syndrome (IBS) K58.9 Panic attack F41.0 Rpglk-Ukvaqdoyy-Uvxbm (WPW) syndrome I45 .6 Overweight E66.3 Abdominal discomfort R10.9 Generalized anxiety disorder F41.1 Current smoker F17.200
[2025-03-21 18:37] LABS: Anion Gap 12.5
[2025-03-21 18:38] LABS: Alanine Aminotransferase 54 U/L (16-63); Albumin Globulin Ratio 0.8; Albumin Level 3.5 g/dL (3.4-5.0); Alkaline Phosphatase 76 U/L (46-116); Aspartate Amino Transferase 32 U/L (15-37); Blood Urea Nitrogen 14.0 mg/dL (7.0-18.0); Calcium 8.7 mg/dL (8.5-10.1); Carbon Dioxide 28.3 mmol/L (21.0-32.0); Chloride 101 mmol/L (98-107); Estimated GFR (African America >60 (>=60 mL/min/1.73m^2); Estimated GFR (Non-African Ame 56 (>=60 mL/min/1.73m^2); Globulin 4.5 g/dL; Glucose 290 mg/dL (74-106); Lipase 53.0 U/L (16.0-77.0); Potassium 3.8 mmol/L (3.5-5.1); Sodium 138 mmol/L (136-145); Total Protein 8.0 g/dL (6.4-8.2)
[2025-03-21 18:43] LABS: Thyroid Stimulating Hormone 1.235 uIU/mL (0.358-3.740)
[2025-03-21] MEDS: 0.9 % SODIUM CHLORIDE 1,000 ML 1000 ML IV (19:03)
== END 2025-03-21 21:00 | disposition home or self-care (01) ==
PROVIDERS: Physician Assistant; Emergency Provider Emergency Medicine; PCP Nurse Practitioner Family
DX: R73.9 Hyperglycemia, unspecified (principal); F17.200 Nicotine dependence, unspecified, uncomplicated; R30.0 Dysuria
CPT/HCPCS: 36415; 71045; 80053; 80307; 81001; 82948; 83690; 84443; 84484; 85025; 87491; 87591; 93005; 99285

== ENCOUNTER 2025-04-01 10:43 | Emergency (ER) | payer SELFPAY ==
--- OUTSIDE RECORDS SUMMARY | 2024-08-08 08:30 | XMS_ITS ---
Author Organization The [facility] in [place] Address [address] [place] [address] Care Team Providers Care Tobacco Blender Name Role Phone Leighann Mahoney Primary Care Provider REASON FOR VISIT STILL SICK Encounters Encounter Location Date Provider Diagnosis [facility] [address] [place] [phone] 08/08/2024 Leighann Mahoney Plan Of Treatment Next Appt Details Provider Name:Leighann doss, 04/03/2025 09:30:00 AM, [address] [place], [address], Progress Notes * Genesis PACKEROB:1985 (39 yo M)Acc No.[id number]:08/08/2024 UNLOCKED PROGRESS NOTE Progress Note Patient: Tristin CARL :?Leighann Mahoney ([facility]), CNPDOB:1985 ???Age:38 Y???Sex:MaleDate:08/08/2024Phone:[phone]:[address] [place] [address], [address], [place], [place] Subjective: * Chief Complaints: * 1 . STILL SICK. * Medical History: Objective: * Vitals: Assessment: Plan: * Treatment: * * Electronic signature of Leighann Mahoney NP, DIRECTOR OF EPIDEMIOLOGY.HEADING AND PRIMING OPERATOR.[id number] on 04/01/2025 at 11:40 AM ESTSign off status: PendingVisit Status:?OFF CANC (OFFICE CANCEL) * Provider: Phan Mahoney ([facility]), HEADING AND PRIMING OPERATOR Date: 0 08/08/2024 Generated for Printing/Faxing/eTransmitting on:?04/01/2025 11:40 AM EST
[2025-04-01 10:57] VITALS: BP 128/89; PULSE 94; TEMP 36.6; O2SAT 100; BMI 37.5
--- OUTSIDE RECORDS SUMMARY | 2025-04-01 11:40 | XMS_ITS | Clinical Summary ---
Author Organization [facility] Address [address] [place] [address] Care Team Providers Care Security Orderly Name Role Phone Unavailable Primary Care Provider Unavailabl e Allergies Active AllergyReactionsCriticalityNoted DateCommentsErythromycinRashLow 02/23/2024Erythromycin JclqDmske30/23/7965FsbxusrtwjlMzcsv56/23/2024 Medications MedicationSigDispense QuantityRefillsLast FilledStart DateEnd DateStatus divalproex [...] (bright red blood per rectum)02/23/2024hange in bowel tqyaww0602/23/2024urrent smoker 02/23/2024 Overview (02/23/2024): Added secondary to documentation in Social History. Pchttalbbl83/23/2024Erectile bclulcvqqgf38/23/2024Generalized anxiety disorder 02/23/2024GERD (gastroesophageal reflux disease)02/23/2024History of shingles 02/23/2024IBS (irritable bowel syndrome)02/23/20247652Swubmevcl00/23/2024Morbid vgttmhu1902/23/2024bdominal pain, maaefqlacb02/23/2024anic disorder without agoraphobia with mild panic jokbgdt1102/23/2024ectal undwezej79/23/2024 Akymi-Iqqrrksou-Sxdjg /23/2024nal pain02/23/2024 Social History Tobacco UseTypesPacks/DayYears UsedDateSmoking Tobacco: [...] file03/14/2024Sexually AbusedNot on file03/14/2024HQ-2AnswerDate RecordedPatient Health Questionnaire-2 Gyvdj38405/14/2023Sex and Gender InformationValueDate RecordedSex Assigned at BirthNot on fileLegal SexMale 02/11/2024 3:19 PM EDTGender IdentityNot on fileSexual OrientationNot on file Last Filed Vital Signs Vital SignReadingTime TakenCommentsBlood Ukknerlq486/8903/14/2024 2:20 PM EST Wxjau996003/14/2024 2:20 PM FSUGhhdllvgdng18.6 ??C (97.8 ??F)03/14/2024 2:20 PM ESTRespiratory Jwmy8958 9:45 AM EDTOxygen Nyhyraphma47%03/14/2024 2:20 PM ESTInhaled Oxygen Concentration--Iwmcic478 kg (314 lb 3.2 oz)03/14/2024 2:20 PM BYCKspxwa625.5 cm (6' 3 )03/14/2024 2:20 PM ESTBody Mass Index39.27105/14/2023 2:20 PM EST Plan of Treatment Health MaintenanceDue DateLast DoneCommentsVaricella Vaccines (1 of 2 - 13+ 2- dose series)08/19/2000Hepatitis B Vaccines (1 of 3 - 19+ 3-dose series) 08/19/2006Pneumococcal Vaccine: Pediatrics (0 to 5 Years) and At-Risk Patients (6 to 64 Years) (1 of 2 - PCV)08/19/2006dult Hiqtjbf3408/19/2009HPV Vaccines (1 - 3-dose SCDM series)08/19/2014COVID-19 Vaccine (1 - season)2025 Influenza Vaccine (#1)2025Depression Wpgyalzse36Zoster Vaccines (1 of 2)08/19/2037HIB VaccinesAged OutNo longer [...] (Latest Code Status on File) Date ActivatedDate WpqrvbyaolnHjydufrj32/29/2024 6:22 AM02/29/2024 12:22 PM
--- OUTSIDE RECORDS SUMMARY | 2025-04-01 11:40 | XMS_ITS | CCD ---
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 (U)NegativeNormalNegativeProtestant HospitalComment on above:Order Comment: Name Collection Type:: Voided Performed By: #### CUBLD #### [place] [address] USALactate [Moles/volume] in Serum or PlasmaOrdered By: Herminio Davila on 35-50-0815Thahizf [Moles/Vol]0.9 mmol/LNormal0.5-1.9Protestant HospitalComment on above:Lactic Acid reference range has been updated to 0.5 1.9 mmol/L and the critical range of 2.0 or greater.Result Comment: Lactic Acid reference range has been updated to 0.5 ? 1.9 mmol/L and the critical range of 2.0 or greater. PERFORMED BY: [place] [address] PATHOLOGIST OVERLOCK OPERATOR JODY DAN M.D.Performed By: #### CUBLD #### [place] [address] USALeukocyte esterase [Presence] in Urine by Test strip Ordered By: Herminio Davila on 14-42-0312Haxleqtyv esterase Test strip Ql (U) NegativeNormalNegativeProtestant HospitalComment on above:Order Comment: Name Collection Type:: VoidedPerformed By: #### CUBLD #### [place] [address] USALeukocytes [#/area] in Urine sediment by Automated count Ordered By: Herminio Davila on 00-11-1761ZBJ Auto (Urine sed) [#/Area]3-4 [HPF]0-4 Protestant HospitalLeukocytes [#/volume] corrected for nucleated erythrocytes in Blood by Automated counOrdered By: Herminio Davila on 02-04-2025 WBC corrected for nucl RBC Auto (Bld) [#/Vol]8.9 10*3/uL4.1-10.5FWooster Community HospitalLeukocytes [#/volume] in Blood by Automated countOrdered By: Herminio Davila on 87-06-2161BSG (Bld) [#/Vol]8.9 10*3/uLNormal4.1-10.5 Protestant HospitalComment on above:Performed By: #### CBC, PT, PTT, CMP, CK, HS TROP #### [facility] [address] [place] [address] USALymphocytes [#/volume] in Blood by Automated countOrdered By: Herminio Davila on 13-59-3938Gynbskhitsq (Bld) [#/Vol]3.8 10*3/uLNormal 1.00-4.8Protestant HospitalComment on above:Performed By: #### CBC, PT, PTT, CMP, CK, HS TROP #### [facility] [address] [place] [address] USALymphocytes/100 leukocytes in Blood by Automated count Ordered By: Herminio Davila on 59-82-1540Wespfqcxvrl/100 WBC (Bld)42.6 %Normal. Protestant HospitalComment on above:Performed By: #### CBC, PT, PTT, CMP, CK, HS TROP #### [address] [Entitic mass] by Automated countOrdered By: Herminio Davila on 62-03-8235PRQ (RBC) [Entitic mass]30.8 bnDcjmtm62.5-35.2FWooster Community HospitalComment on above:Performed By: #### CBC, PT, PTT, CMP, CK, HS TROP #### [address] Auto (RBC) [Mass/Vol]Ordered By: Herminio Davila on 62-61-4372MNTB (RBC) [Mass/Vol]36.1 g/mDMmvy60.5-35.6FWooster Community HospitalMCV [Entitic volume] by Automated countOrdered By: Herminio Davila on 88-02-4560HEZ (RBC) [Entitic vol]85.3 xITbfknv48.5-101Protestant HospitalComment on above:Performed By: #### CBC, PT, PTT, CMP, CK, HS TROP #### [place] [address] USAMonocyte distribution width [Entitic volume] in Blood by AutomatedOrdered By: Herminio Davila on 56-26-9699Upjxmhok distribution width Auto (Bld) [Entitic vol]18.83 %0.00-20.00Protestant HospitalMonocytes [#/volume] in Blood by Automated countOrdered By: Herminio Davila on 02-04-2025 Monocytes (Bld) [#/Vol]0.5 10*3/uLNormal0.0-0.8[facility] Comment on above:Performed By: #### CBC, PT, PTT, CMP, CK, HS TROP #### [facility] [address] [place] [address] USAMonocytes/100 leukocytes in Blood by Automated count Ordered By: Herminio Davila on 73-07-3798Qjuvebaki/100 WBC (Bld)5.5 %Normal. Protestant HospitalComment on above:Performed By: #### CBC, PT, PTT, CMP, CK, HS TROP #### [facility] [address] [place] [address] USAMucus [Presence] in Urine by AutomatedOrdered By: Herminio Davila on 30-17-2221Cvyta Auto Ql (U)Rare [LPF]Protestant HospitalNeutrophils [#/volume] in Blood by Automated countOrdered By: Herminio Davila on 85-55-3579Gsomlqnypxo (Bld) [#/Vol]4.5 10*3/uLNormal1.8-7.7FWooster Community HospitalComment on above:Performed By: #### CBC, PT, PTT, CMP, CK, HS TROP #### [facility] [address] [place] [id number] USANeutrophils/100 leukocytes in Blood by Automated count Ordered By: Herminio Davila on 13-26-3335Cdnuryqtdqm/100 WBC (Bld)50.4 %Normal. Protestant HospitalComment on above:Performed By: #### CBC, PT, PTT, CMP, CK, HS TROP #### [facility] [address] [place] [address] USANitrite Test strip Ql (U)Ordered By: Herminio Davila on 66-07-4592Pwkscmr Ql (U)NegativeNegativeProtestant HospitalNo Panel InformationOrdered By: Herminio Davila on 69-17-0993Zsnkpcvw Creatinine Clearance (Gkhj161.66Protestant HospitalNucleated erythrocytes [Presence] in Blood by Automated countOrdered By: Herminio Davila on 02-04-2025 Nucleated RBC Auto Ql (Bld)0.1 /100{WBC}0-0.5FWooster Community Hospital Partial Thromboplastin Timeon 25-57-1444jJFB Coag (Bld) [Time]27.9 sNormal 25.1-36.5The [facility] Hospital Physician GroupComment on above:Result Comment: A hematocrit value greater than 55% may lead to inaccurate results in coagulation testing. Patients having hematocrit values >55% require a special collection tube for coagulation studies. Please contact the laboratory at [phone] for redraw instructions. PERFORMED BY: [place] [address] PATHOLOGIST OVERLOCK OPERATOR JODY DAN M.D.Performed By: #### CBC, PT, PTT, CMP, CK, HS TROP #### [facility] [address] [place] [address] USAPlatelet mean volume [Entitic volume] in Blood by Automated countOrdered By: Herminio Davila on 96-28-5713Pvvhuged mean volume (Bld) [Entitic vol]8.1 fLNormal6.6-10.1FWooster Community HospitalComment on above:Performed By: #### CBC, PT, PTT, CMP, CK, HS TROP #### [facility] [address] [place] [address] USAPlatelets [#/volume] in Blood by Automated countOrdered By: Herminio Davila on 23-94-1634Jsnpljsnl (Bld) [#/Vol]223 10*3/yHFzuucv768-944 Protestant HospitalComment on above:Performed By: #### CBC, PT, PTT, CMP, CK, HS TROP #### [facility] [address] [place] [address] USAPotassium [Moles/volume] in Serum or PlasmaOrdered By: Herminio Davila on 35-43-9956Lnmuaflfl [Moles/Vol]3.7 mmol/LNormal3.5-5.1FWooster Community HospitalComment on above:Performed By: #### CBC, PT, PTT, CMP, CK, HS TROP #### [facility] [address] [place] [address] USAProtein Test strip (U) [Mass/Vol]Ordered By: Herminio Davila on 67-77-4974Pavpxpo (U) [Mass/Vol]NegativeNegativeProtestant HospitalProtein [Mass/volume] in Serum or PlasmaOrdered By: Herminio Davila on 96-72-8698Xoechib [Mass/Vol]7.7 g/dLNormal6.4-8.9Protestant HospitalComment on above:Performed By: #### CBC, PT, PTT, CMP, CK, HS TROP #### [facility] [address] [place] [address] USAProthrombin time (PT)Ordered By: Hermniio Davila on 34-27-3002HX Coag (PPP) [Time]11.5 sNormal9.0-12.9Protestant HospitalComment on above:A hematocrit value greater than 55% may lead to inaccurate results in coagulation testing. Patientshaving hematocrit values >55% require a special collection tube for coagulation studies. Please contact the laboratory at [phone] for redraw instructions.Result Comment: A hematocrit value greater than 55% may lead to inaccurate results in coagulation testing. Patients having hematocrit values >55% require a special collection tube for coagulation studies. Please contact the laboratory at [phone] for redraw instructions.Performed By: #### CBC, PT, PTT, CMP, CK, HS TROP #### [facility] [address] [place] [address] USASerum globulin measurement by calculation (mass/volume) Ordered By: Herminio Davila on 64-48-3701Ztlxacjv (S) [Mass/Vol]3.6 g/dLNormal Protestant HospitalComment on above:Performed By: #### CBC, PT, PTT, CMP, CK, HS TROP #### [place] [address] USASerum or plasma albumin/globulin mass ratioOrdered By: Herminio Davila on 45-47-5016Zmyrnrn/Globulin [Mass ratio]1.1 {ratio}Normal Protestant HospitalComment on above:Performed By: #### CBC, PT, PTT, CMP, CK, HS TROP #### [place] [address] USASerum or plasma anion gap determinationOrdered By: Herminio Davila on 23-61-1366Fbudr gap [Moles/Vol]11.1 mmol/LNormal6.0-15.0Protestant HospitalComment on above:Performed By: #### CBC, PT, PTT, CMP, CK, HS TROP #### [place] [address] USASodium [Moles/volume] in Serum or PlasmaOrdered By: Herminio Davila on 02-87-4911Ysoksz [Moles/Vol]136 mmol/DFwpkyx220-716TtfxaxpvgProtestant HospitalComment on above:Performed By: #### CBC, PT, PTT, CMP, CK, HS TROP #### [place] [address] USASpecific gravity Test strip (U) [Rel density]Ordered By: Herminio Davila on 22-96-7492Cqzqnysv gravity (U) [Rel density]1.0271.001-1.030 Protestant HospitalTroponin I High Sensitivityon 02-04-2025 Troponin I High Zvojhokaqnb8Nzrtgn5-83Lag [facility] Hospital Physician GroupComment on above:Result Comment: The Troponin units of report have been changed to meet the Chest Pain Accreditation requirement, element EC5.M1l2. Troponin units are changed from pg/ml to ng/L. Also, the decimal is removed and results are in whole numbers. PERFORMED BY: [place] [address] PATHOLOGIST OVERLOCK OPERATOR JODY DAN M.D.Performed By: #### CBC, PT, PTT, CMP, CK, HS TROP #### [facility] [address] [place] [id number] USATroponin I.cardiac [Mass/volume] in Serum or Plasma by Detection limit <= 0.01 ng/mLOrdered By: Herminio Davila on 61-22-9972Bfojivce I.cardiac DL <= 0.01 ng/mL [Mass/Vol]5 ng/L0-20[facility] Comment on above:The Troponin units of report have been changed to meet the Chest Pain Accreditation requirement, element EC5.M1l2. Troponin units are changed from pg/ml to ng/L. Also, the decimal is removed and results are in whole numbers.Urea nitrogen [Mass/volume] in Serum or PlasmaOrdered By: Herminio Davila on 99-14-0605Vozb nitrogen [Mass/Vol]16 mg/dLNormal7-25Protestant HospitalComment on above:Performed By: #### CBC, PT, PTT, CMP, CK, HS TROP #### [facility] [address] [place] [id number] USAUrobilinogen Test strip (U) [Mass/Vol]Ordered By: Herminio Davila on 70-79-1723Hmecjaeplabq (U) [Mass/Vol]Normal mg/dLNoOhioHealth Grant Medical CenterWhole blood chloride measurementOrdered By: Herminio Davila on 68-16-3772Ylgeigyc [Moles/Vol]106.0 mmol/MQlevto99-820UzodbickxProtestant HospitalComment on above:Performed By: #### CUBLD #### [facility] [address] [place] [id number] USAWhole blood creatinine measurementOrdered By: Herminio Davila on 77-64-7706Talenwbvrq [Mass/Vol]1.0 mg/dLNormal0.6-1.3FWooster Community HospitalComment on above:ER/ESD physician is notified/shown all ISTAT results.Critical values may be confirmed by laboratorytesting ifdeemed necessary by ER attending doctor.Result Comment: ER/ESD physician is notified/shown all ISTAT results. Critical values may be confirmed by laboratory testing if deemed necessary by ER attending doctor.Performed By: #### CUBLD #### [facility] [address] [place] [address] USAWhole blood ionized calcium measurement (moles/volume) Ordered By: Herminio Davila on 16-36-9442Yacdbhy.ionized (Bld) [Moles/Vol]1170 mmol/L1.12-1.32Protestant HospitalWhole blood potassium measurementOrdered By: Herminio Davila on 48-17-0298Fgfdhfomu [Moles/Vol]3.7 mmol/LNormal3.5-4.9Protestant HospitalComment on above:Performed By: #### CUBLD #### [place] [address] USAWhole blood sodium measurementOrdered By: Herminio Davila on 43-85-4010Xnhmiw [Moles/Vol]140 mmol/BTxfsvk367-080UmzrskqzkProtestant HospitalComment on above:Performed By: #### CUBLD #### [place] [address] USAaPTT in Platelet poor plasma by Coagulation assayOrdered By: Herminio Davila on 08-27-0071hIMN Coag (PPP) [Time]27.9 s25.1-36.5FWooster Community HospitalComment on above:A hematocrit value greater than 55% may lead to inaccurate results in coagulation testing. Patientshaving hematocrit values >55% require a special collection tube for coagulation studies. Please c ontact the laboratory at [phone] for redraw instructions.pH of Urine by Test stripOrdered By: Herminio Davila on 81-42-0549xM (U)5.5 [pH]Normal5.0-9.0 Protestant HospitalComment on above:Order Comment: Name Collection Type:: VoidedPerformed By: #### CUBLD #### [place] [address] USAOffice Visiton 24-77-2126Apgfvl-up [id number] Chuck Packer 1985 M Date Provider Department Center 03/14/2024 Mayra-URBANO RODRIGUEZ [facility] SURG Second Fl No family history on file Level of Service:44264 [place] POSTOP FOLLOW UP VISIT RELATED TO ORIGINAL PX Reason for Visit and Comments: Post-op [483] - Chuck is here today for post op visit: hemorrhoids, s/p 02/29/24 EUA with hemorrhoidectomy and anal fissure debridementNormalUniLakeHealth Beachwood Medical CenterHISTOLOGY - TISSUE EXAMon 76-36-7185CVX AP CASE REPORT [place]uba CityUnPremier HealthComment on above:Order Comment: Pre-op diagnosis: Anal pain [K62.89]Result Comment: Surgical Pathology Case: [id number] Authorizing Provider: Urbano Rodriguez MD Collected: 02/29/2024 0827 Ordering Location: [facility] Main Operating Room Received: 02/29/2024 1058 Pathologist: Dyana Villasenor MD Specimens: A) - Anus, ANAL FISSURE B) - Anus, INTERNAL AND EXTERNAL HEMORRHOIDPerformed By: #### [id number] #### [facility] (BEAKER) [address] [place], [place] [address]KUX AP CLINICAL INFORMATIONNormalUniLakeHealth Beachwood Medical CenterComment on above:Order Comment: Pre-op diagnosis: Anal pain [K62.89]Result Comment: Post-Op Diagnoses K62.89 - Anal pain [ICD-10-CM]Performed By: #### [id number] #### [facility] ([facility]) [address] [place], [place] [address]YDM AP GROSS DESCRIPTIONA. Anus.[facility] HospitalComment on above:Order Comment: Pre-op diagnosis: Anal [...] in a single cassette. [place], Pathologists' Sweatband Drummer Leonel Hwang. Received in formalin labeled Chuck [...] are somewhat congested with focal prominent vessels. Substation Operator Transforming sections are submitted in a single cassette. [place] Pathologists' AssistantPerformed By: #### [id number] #### [facility] ([facility]) [address] [place], [place] [address]RDQ AP MICROSCOPIC DESCRIPTIONMicroscopic examination performed. [facility] HospitalComment on above:Order Comment: Pre-op diagnosis: Anal pain [K62.89]Performed By: #### [id number] #### [facility] ([facility]) [address] [place], [place] [address]DWB AP REPORT FINAL DIAGNOSIS NARRATIVENormalUniLakeHealth Beachwood Medical CenterComment on above:Order Comment: Pre-op diagnosis: Anal pain [K62.89]Result Comment: A. Anal fissure, debridement: - Hyperplastic squamous mucosa and dilated congested submucosal veins. B. Hemorrhoids, internal and external, hemorrhoidectomy: - Internal and external hemorrhoids with acutely inflamed reactive surface epithelium. Performed By: #### [id number] #### [facility] ([facility]) [address] [place], [place] [address]XWmi 21-08-6196FLJ&P reviewed. The patient was examined and there are no changes to the H&P.[facility] HospitalOPNOTE on 30-27-5128KDNRSGGPLZ UNDER ANESTHESIA,, HEMORRHOIDECTOMY, DEBRIDMENT OF ANAL FISSURE Operative Note Date: 02/29/2024 Location: [facility] OR Name: Chuck Packer, : 1985, Diagnosis Pre-op Diagnosis * Anal pain [K62.89] Post-op Diagnosis * Anal pain [K62.89] Anal fissure External and internal hemorrhoid Procedures HEMORRHOIDECTOMY, DEBRIDMENT OF ANAL FISSURE EXAM UNDER ANESTHESIA, [address] - [place] ANRCT XM SURG REQ ANES GENERAL SPI/EDRL [...] EXTERNAL HEMORRHOID Comment: PLACED IN FORMALIN Staff: Foiling Machine Operator: Shannan Guy RN Scrub Person: Dianelys [...] Disposition: PACU - hemodynamically stable. Condition: stable Melbarenu Rodriguez HajfxdPgutbqhnilMemorial HospitalCT GLUCOSE METER UNSOLICITED RESULTSon 34-25-7303Pmyxwbw [Mass/Vol]134 mg/nFLdxo91-784 [facility] CenterComment on above:Order Comment: Waived Testing in the ED is performed under the ED CLIA certificate #[id number].Result Comment: knrvysk91Ptixvcogx By: #### [id number] #### [facility] (BEAKER) [address] [place], [place] [address]Htlbpgpgq [id number] Chuck Packer 1985 M Date Provider Department Center 02/23/2024 Mayra-MICHAEL URBANO [facility] SURG Second Fl No family history on file Level of Service:22290 [place] OFFICE/OUTPATIENT NEW LOW MDM 30 MINUTES Reason for Visit and Comments: Consult [484] - Chuck is here today for consult: Rectal pain and BleedingNormal [facility] CenterHPon 61-63-2915IXXaaxbxfsww Patient ID: Chuck Packer is a 38 [...] the past 36 hour(s)). No follow-ups on file.NormalUniversity Hospitals Portage Medical CenterGeneral Surgery Office/Clinic Noteon 57-89-4409Ytsistm Surgery Office/Clinic NoteGeneral Surgery Office/Clinic Note HPI [...] Rectal bleeding Rectal or anal pain Smoker Tumjn-Jnlioiypq-Qkswd syndrome Historical Atrial fibrillation Epididymitis Nocturia Scrotal [...] virus vaccine, inactivated - Not Given Patient RefusesNormalFishWestern Maryland Hospital CenterComment on above:Result Comment: Electronically Signed By: VIVIANE SIMS, Lucy Yañez\Date and Time Signed: 12/26/23 19:55 EDTAmbulatory Visit Summaryon 55-56-1438Vbnbxtrefz Visit SummaryAmbulatory Visit Summary CHUCK PACKER :1985 [...] with mild panic attacks Rectal bleeding Smoker Nxgrk-Exhaxclhr-Fwkdl syndrome Historical - Any problem that you are no longer receiving treatment for. Atrial fibrillation Epididymitis Nocturia Scrotal pain Patient Survey You may receive a survey via text or e-mail asking about your office visit. Please share your experience with us by completing your survey. We appreciate your feedback and thank you for choosing us for your care. [facility] HospitalCB AUTO DIFFon 04-11-5328SPUH # 0.0 103/ulNormal0.0-0.1The [facility] HospitalComment on above:Performed By: #### PTT, PT #### [facility] [address] [place] [address] Dr. Oh TrotterBasophils/100 WBC (Bld)0.2 %Normal0.2-2.0[facility] Comment on above:Performed By: #### PTT, PT #### [facility] [address] [place] [address] Dr. Oh Shaw #0.0 103/ulNormal0.0-0.7The [facility] HospitalComment on above: Performed By: #### PTT, PT #### [facility] [address] [place] [address] Dr. Oh Huangosinophils/100 WBC (Bld)0.6 %Critically low0.9-7.0The [facility] HospitalComment on above:Performed By: #### PTT, PT #### [facility] [address] [place] [address] Dr. Oh Huangrythrocyte distribution width (RBC) [Ratio]12.2 %Nixkqz43.0-15.0 The [facility] HospitalComment on above:Performed By: #### PTT, PT #### [facility] [address] [place] [address] Dr. Oh Dejesusatocrit (Bld) [Volume fraction]44.1 %Kcqkln00.0-54.0[facility] HospitalComment on above:Performed By: #### PTT, PT #### [facility] [address] [place] [address] Dr. Yilan ChangHemoglobin (Bld) [Mass/Vol]15.8 g/rUWfbcle29.0-18.0The [facility] HospitalComment on above:Performed By: #### PTT, PT #### [facility] [address] [place] [address] Dr. Oh Malave #0.02 10e3/ulNormal0.00-0.03The [facility] HospitalComment on above:Performed By: #### PTT, PT #### [facility] [address] [place] [address] Dr. Oh Malave %0.3 %Normal0.0-0.5The [facility] HospitalComment on above: Performed By: #### PTT, PT #### [facility] [address] [place] [address] Dr. Oh Aldana #1.9 103/ulNormal1.2-3.8The [facility] HospitalComment on above:Performed By: #### PTT, PT #### [facility] [address] [place] [address] Dr. Oh Orellanahocytes/100 WBC (Bld)29.7 %Lpjpyb20.5-60.0The [facility] HospitalComaspirus keweenaw hospital on above:Performed By: #### PTT, PT #### [facility] [address] [place] [address] Dr. Oh SaldanaUAL DIFF REQNONormalThe [facility] HospitalComment on above: Performed By: #### PTT, PT #### [facility] [address] [place] [address] Dr. Oh Lau (RBC) [Entitic mass]29.8 laWrxwey76.9-34.0The [facility] HospitalComment on above:Performed By: #### PTT, PT #### [facility] [address] [place] [address] Dr. Oh Lau (RBC) [Mass/Vol]35.8 g/dLCritically high29.9-35.2The [facility] HospitalComment on above:Performed By: #### PTT, PT #### [facility] [address] [place] [address] Dr. Oh LauV (RBC) [Entitic vol]83.2 qVHxeuty38.0-94.0The [facility] Hospitalment on above:Performed By: #### PTT, PT #### [facility] [address] [place] [address] Dr. Oh Johnson #0.6 103/ulNormal0.3-0.8The [facility] HospitalComment on above:Performed By: #### PTT, PT #### [facility] [address] [place] [address] Dr. Oh Cedeñoocytes/100 WBC (Bld)8.6 %Normal1.7-12.0The [facility] on above:Performed By: #### PTT, PT #### [facility] [address] [place] [address] Dr. Oh Cruz #3.9 103/ulNormal1.4-6.5The [facility] Hospitalment on above:Performed By: #### PTT, PT #### [facility] [address] [place] [address] Dr. Oh Velazquezutrophils/100 WBC (Bld)60.6 %Nwzbgd23.0-75.0The [facility] on above:Performed By: #### PTT, PT #### [facility] [address] [place] [address] Dr. Oh Holmanlet mean volume (Bld) [Entitic vol]9.5 fLNormal9.5-13.5The [facility] Hospitalment on above:Performed By: #### PTT, PT #### [facility] [address] [place] [address] Dr. Oh TrotterPLT187 103/uiRvxhqt857-388Zuy [facility] on above: Performed By: #### PTT, PT #### [facility] [address] [place] [address] Dr. Oh TrotterRBC5.30 106/ulNormal4.70-6.10The [facility] Hospitalment on above:Performed By: #### PTT, PT #### [facility] [address] [place] [address] [address] Oh TrotterWBC6.4 103/ulNormal4.0-11.0The [facility] HospitalComment on above: Performed By: #### PTT, PT #### [facility] [address] [place] [address] [address] Oh Paul 14(COMP METB)on 46-66-4448Gjtzvah [Mass/Vol]3.5 g/dLNormal 3.4-5.0The [facility] HospitalComment on above:Performed By: #### LIPA, CMP, HSTROPN #### [facility] [address] [place] [address] Dr. Oh TrotterAlbumin/Globulin [Mass ratio]0.7 {ratio}NormalThe Western Reserve HospitalComment on above:Performed By: #### LIPA, CMP, HSTROPN #### [facility] [address] [place] [address] Dr. Oh Sheets [Catalytic activity/Vol]85 U/XRvqjyj44-866Mbc [facility] Hospitalment on above:Performed By: #### LIPA, CMP, HSTROPN #### [facility] [address] [place] [address] Dr. Oh Negron [Catalytic activity/Vol]34 U/RYdwpen71-91Kht [facility] HospitalComment on above:Performed By: #### LIPA, CMP, HSTROPN #### [facility] [address] [place] [address] Dr. Oh Claire gap [Moles/Vol]13.3 mmol/LNormalThe [facility] on above:Performed By: #### LIPA, CMP, HSTROPN #### [facility] [address] [place] [address] Dr. Oh Milner [Catalytic activity/Vol]18 U/QPmbkda60-69Zcc [facility] Hospitalment on above:Performed By: #### LIPA, CMP, HSTROPN #### [facility] [address] [address] [address] Oh TrotterBilirubin [Mass/Vol]0.4 mg/dLNormal0.2-1.0[facility] Comment on above:Performed By: #### LIPA, CMP, HSTROPN #### [facility] [address] [place] [address] Dr. Oh TrotterCalcium [Mass/Vol]8.9 mg/dLNormal8.5-10.1[facility] Comment on above:Performed By: #### LIPA, CMP, HSTROPN #### [facility] [address] [place] [address] Dr. Oh TrotterChloride [Moles/Vol]105 mmol/BZriwvo70-893RstPromedica Defiance [facility] Comment on above:Performed By: #### LIPA, CMP, HSTROPN #### [facility] [address] [place] [address] Dr. Oh TrotterCO2 [Moles/Vol]24.7 mmol/NObfogs92.0-32.0[facility] Comment on above:Performed By: #### LIPA, CMP, HSTROPN #### [facility] [address] [place] [address] Dr. Oh TrotterCreatinine [Mass/Vol]0.88 mg/dLNormal0.70-1.30The [facility] HospitalComment on above:Performed By: #### LIPA, CMP, HSTROPN #### [facility] [address] [place] [address] Dr. Oh HuangGFR-AF SWEDISH>60Normal>=60The [facility] HospitalComment on above:Performed By: #### LIPA, CMP, HSTROPN #### [facility] [address] [place] [address] Dr. Oh HuangGFR-NON AF SWEDISH>60Normal>=60The [facility] HospitalComment on above:Performed By: #### LIPA, CMP, HSTROPN #### [facility] [address] [address] [address] Oh TrotterGlobulin (S) [Mass/Vol]4.8 g/dLNormSelect Medical OhioHealth Rehabilitation HospitalComment on above:Performed By: #### LIPA, CMP, HSTROPN #### [facility] [address] [place] [address] Dr. Oh TrotterGlucose [Mass/Vol]113 mg/dLCritically glox80-571Ulz [facility] HospitalComment on above:Performed By: #### LIPA, CMP, HSTROPN #### [facility] [address] [address] [address] Oh TrotterPotassium [Moles/Vol]4.0 mmol/LNormal3.5-5.1The [facility] Comment on above:Performed By: #### LIPA, CMP, HSTROPN #### [facility] [address] [place] [address] Dr. Oh TrotterProtein [Mass/Vol]8.3 g/dLCritically high6.4-8.2The [facility] HospitalComment on above:Performed By: #### LIPA, CMP, HSTROPN #### [facility] [address] [place] [address] Dr. Oh Lopezdium [Moles/Vol]139 mmol/QLsxfrl267-725Zzo [facility] Comment on above:Performed By: #### LIPA, CMP, HSTROPN #### [facility] [address] [place] [address] Dr. Oh TrotterUrea nitrogen [Mass/Vol]15.0 mg/dLNormal7.0-18.0The [facility] HospitalComment on above:Performed By: #### LIPA, CMP, HSTROPN #### [facility] [address] [place] [address] Dr. Oh Amador nitrogen/Creatinine [Mass ratio]17.0 mg/mgNoKettering Health Greene MemorialComment on above:Performed By: #### LIPA, CMP, HSTROPN #### [facility] [address] [place] [address] Dr. Oh TrotterXR ABD FLAT UP_PA German [id number] ABD FLAT UP_PA CHEXAM: XR ABD FLAT [...] Electronically authenticated by: VERA SETHI Date: 2022-07-28 22:14No[facility] AUTO DIFFon [id number] #0.0 103/ulNormal0.0-0.1[facility] HospitalComment on above:Performed By: #### LIPA, CMP, HSTROPN #### [facility] [address] [address] [address] Oh TrotterBasophils/100 WBC (Bld)0.2 %Normal0.2-2.0[facility] Comment on above:Performed By: #### LIPA CMP, HSTROPN #### [facility] [address] [address] [address] Oh Shaw #0.1 103/ulNormal0.0-0.7The [facility] HospitalComment on above: Performed By: #### LIPA CMP, HSTROPN #### [facility] [address] [place] [address] Dr. Oh Huangosinophils/100 WBC (Bld)0.9 %Normal0.9-7.0[facility] Comment on above:Performed By: #### LIPA, CMP, HSTROPN #### [facility] [address] [place] [address] Dr. Oh Huangrythrocyte distribution width (RBC) [Ratio]12.4 %Kpzqzc36.0-15.0 The [facility] HospitalComment on above:Performed By: #### LIPA, CMP, HSTROPN #### [facility] [address] [place] [address] Dr. Oh TrotterHematocrit (Bld) [Volume fraction]44.8 %Epwgyb20.0-54.0The [facility] HospitalComment on above:Performed By: #### LIPA, CMP, HSTROPN #### [facility] [address] [place] [address] Dr. Oh TrotterHemoglobin (Bld) [Mass/Vol]15.7 g/jPQkopzn79.0-18.0The [facility] HospitalComment on above:Performed By: #### LIPA, CMP, HSTROPN #### [facility] [address] [place] [address] Dr. Oh Malave #0.02 10e3/ulNormal0.00-0.03The [facility] HospitalComment on above:Performed By: #### LIPA, CMP, HSTROPN #### [facility] [address] [place] [address] Dr. Oh Malave %0.2 %Normal0.0-0.5The [facility] HospitalComment on above: Performed By: #### LIPA, CMP, HSTROPN #### [facility] [address] [place] [address] Dr. Oh OrellanaH #3.2 103/ulNormal1.2-3.8The [facility] HospitalComment on above:Performed By: #### LIPA, CMP, HSTROPN #### [facility] [address] [place] [address] Dr. Oh Shahmphocytes/100 WBC (Bld)39.2 %Urigwf83.5-60.0The Deep HospitalComment on above:Performed By: #### LIPA, CMP, HSTROPN #### [facility] [address] [address] [address] Oh Smith DIFF REQNONormalThe [facility] HospitalComment on above: Performed By: #### LIPA, CMP, HSTROPN #### [facility] [address] [place] [address] Dr. Oh Lau (RBC) [Entitic mass]29.3 gnOvjrgn68.9-34.0The [facility] HospitalComment on above:Performed By: #### LIPA, CMP, HSTROPN #### [facility] [address] [place] [address] Dr. Oh Lau (RBC) [Mass/Vol]35.0 g/vUOmzulj32.9-35.2The [facility] HospitalComment on above:Performed By: #### LIPA, CMP, HSTROPN #### [facility] [address] [place] [address] Dr. Oh Sahni (RBC) [Entitic vol]83.7 fSSaykvn80.0-94.0The [facility] HospitalComment on above:Performed By: #### LIPA, CMP, HSTROPN #### [facility] [address] [place] [address] Dr. Oh Johnson #0.6 103/ulNormal0.3-0.8The [facility] HospitalComment on above:Performed By: #### LIPA, CMP, HSTROPN #### [facility] [address] [place] [address] Dr. Oh Cedeñoocytes/100 WBC (Bld)7.5 %Normal1.7-12.0The [facility] Comment on above:Performed By: #### LIPA, CMP, HSTROPN #### [facility] [address] [place] [address] Dr. Oh Cruz #4.3 103/ulNormal1.4-6.5The [facility] HospitalComment on above:Performed By: #### LIPA, CMP, HSTROPN #### [facility] [address] [place] [address] Dr. Oh Velazquezutrophils/100 WBC (Bld)52.0 %Ynmjfx43.0-75.0The [facility] HospitalComment on above:Performed By: #### LIPA, CMP, HSTROPN #### [facility] [address] [place] [address] Dr. Oh TrotterPlatelet mean volume (Bld) [Entitic vol]9.8 fLNormal9.5-13.5The [facility] HospitalComment on above:Performed By: #### LIPA, CMP, HSTROPN #### [facility] [address] [place] [address] Dr. Oh TrotterPLT210 103/llTtfkvf665-412Kxy [facility] HospitalComment on above: Performed By: #### LIPA, CMP, HSTROPN #### [facility] [address] [place] [address] Dr. Oh TrotterRBC5.35 106/ulNormal4.70-6.10The [facility] HospitalComaspirus ke[facility] on above:Performed By: #### LIPA, CMP, HSTROPN #### [facility] [address] [place] [address] Dr. Oh TrotterWBC8.2 103/ulNormal4.0-11.0The [facility] HospitalComaspirus keweenaw hospital on above: Performed By: #### LIPA, CMP, HSTROPN #### [facility] [address] [place] [address] Dr. Oh TrotterOCC BLD IMMUNOASSAYon [id number] BLOODPositiveAbnormal NEGATIVEThe [facility] HospitalComaspirus keweenaw hospital on above:Performed By: #### PTT, PT #### [facility] [address] [place] [address] Dr. Oh Paul 14(COMP METB)on [id number] [Mass/Vol]3.9 g/dLNormal 3.4-5.0The [facility] HospitalComment on above:Performed By: #### LIPA, CMP, HSTROPN #### [facility] [address] [address] [address] Oh TrotterAlbumin/Globulin [Mass ratio]0.9 {ratio}NormalThe [facility] HospitalComaspirus ke[facility] hospital on above:Performed By: #### LIPA, CMP, HSTROPN #### [facility] [address] [place] [address] Dr. Oh AstorgaP [Catalytic activity/Vol]98 U/WKujuec79-753Fuf [facility] on above:Performed By: #### LIPA, CMP, HSTROPN #### [facility] [address] [place] [address] Dr. Oh Negron [Catalytic activity/Vol]47 U/JYcrhmd28-39Yzy [facility] Hospitalment on above:Performed By: #### LIPA, CMP, HSTROPN #### [facility] [address] [place] [address] Dr. Oh Claire gap [Moles/Vol]13.8 mmol/LNormalThe [facility] Comment on above:Performed By: #### LIPA, CMP, HSTROPN #### [facility] [address] [place] [address] Dr. Oh TrotterAST [Catalytic activity/Vol]18 U/JFtiita14-52Qyi [facility] on above:Performed By: #### LIPA, CMP, HSTROPN #### [facility] [address] [place] [address] Dr. Oh TrotterBilirubin [Mass/Vol]0.3 mg/dLNormal0.2-1.0The [facility] Comment on above:Performed By: #### LIPA, CMP, HSTROPN #### [facility] [address] [place] [address] Dr. Oh TrotterCalcium [Mass/Vol]8.8 mg/dLNormal8.5-10.1[facility] Comment on above:Performed By: #### LIPA, CMP, HSTROPN #### [facility] [address] [address] [address] Oh TrotterChloride [Moles/Vol]105 mmol/ISwxish12-433Qkf [facility] Comment on above:Performed By: #### LIPA, CMP, HSTROPN #### [facility] [address] [address] [address] Oh TrotterCO2 [Moles/Vol]25.2 mmol/IZtwpys21.0-32.0The [facility] Comment on above:Performed By: #### LIPA, CMP, HSTROPN #### [facility] [address] [place] [address] Dr. Oh TrotterCreatinine [Mass/Vol]1.02 mg/dLNormal0.70-1.30The [facility] HospitalComment on above:Performed By: #### LIPA, CMP, HSTROPN #### [facility] [address] [place] [address] Dr. Oh HuangGFR-AF SWEDISH>60Normal>=60The [facility] HospitalComment on above:Performed By: #### LIPA, CMP, HSTROPN #### [facility] [address] [place] [address] Dr. Oh Mccormick-NON AF SWEDISH>60Normal>=60[facility] HospitalComment on above:Performed By: #### LIPA, CMP, HSTROPN #### [facility] [address] [place] [address] Dr. Oh TrotterGlobulin (S) [Mass/Vol]4.2 g/dLNormalThe [facility] HospitalComment on above:Performed By: #### LIPA, CMP, HSTROPN #### [facility] [address] [place] [address] Dr. Oh TrotterGlucose [Mass/Vol]104 mg/eXPbmoig75-678Rln [facility] Comment on above:Performed By: #### LIPA, CMP, HSTROPN #### [facility] [address] [place] [address] Dr. Oh TrotterPotassium [Moles/Vol]4.0 mmol/LNormal3.5-5.1The [facility] Comment on above:Performed By: #### LIPA, CMP, HSTROPN #### [facility] [address] [address] [address] Oh TrotterProtein [Mass/Vol]8.1 g/dLNormal6.4-8.2[facility] Comment on above:Performed By: #### LIPA, CMP, HSTROPN #### [facility] [address] [place] [address] Dr. Oh TrotterSodium [Moles/Vol]140 mmol/VHjxmvb569-628Pvr [facility] Comment on above:Performed By: #### LIPA, CMP, HSTROPN #### [facility] [address] [place] [address] Dr. Oh TrotterUrea nitrogen [Mass/Vol]16.0 mg/dLNormal7.0-18.0[facility] HospitalComment on above:Performed By: #### LIPA, CMP, HSTROPN #### [facility] [address] [place] [address] Dr. Oh Amador nitrogen/Creatinine [Mass ratio]15.7 mg/mgNoKettering Health Greene MemorialComment on above:Performed By: #### LIPA, CMP, HSTROPN #### [facility] [address] [place] [address] Dr. Oh TrotterPROTIMEon [id number] Coag (PPP) [Relative time]{INR}NormalPromedica Defiance Regional HospitalComment on above:Performed By: #### PTT, PT #### [facility] [address] [place] [address] Dr. Oh Coy GUIDELINESSEE BELOWCincinnati Shriners HospitalComment on above:Result Comment: DESIRED INR: 2.0 - 3.0 CONDITIONS NOT LISTED BELOW 2.5 - 3.5 FOR PROSTHETIC HEART VALVE REPLACEMENT 2.5 - 3.5 RECURRENT THROMBOSIS Performed By: #### PTT, PT #### [facility] [address] [place] [address] Dr. Oh Young Coag (PPP) [Time]9.8 sNormal9.0-11.6ThSumma Health Comment on above:Performed By: #### PTT, PT #### [facility] [address] [place] [address] Dr. Oh Lozoya [id number] Coag (Bld) [Time]26.6 jRcxljc82.3-36.2[facility] HospitalComment on above:Performed By: #### PTT, PT #### [facility] [address] [place] [address] Dr. Oh TrotterCovid-19 PCR ([facility])on [id number]-CoV-2 (COVID-19) RNA SHAE+probe Ql (Unsp spec)Not detectedNormalNOT DETECTEDPromedica [facility] Comment on above:Result Comment: This test is not yet approved or cleared by the [place] FDA. When there are no FDA-approved or cleared tests available, and other criteria are met, FDA can make tests available under an emergency access mechanism called an Emergency Use Authorization (EUA). The EUA for this test is supported by the [employer] of Health and Human Service's (HHS's) declaration [...] with SARS-CoV-2.Performed By: #### PTT, PT #### [facility] [address] [place] [address] Dr. Oh TrotterINFLRENEENZA A AND B AGon [id number]ria Memorial HospitalComment on above:Result Comment: Negative for Flu A protein angiten. Infection due to Flu A cannot be ruled out. FluA angiten in the sample may be below the detection limit of the test.Performed By: #### LIPA, CMP, HSTROPN #### [facility] [address] [place] [address] Dr. Oh Wray [facility] ClinicComment on above: Result Comment: Negative for Flu B protein antigen. Infection due to Flu B cannot be ruled out. FluB antigen in the sample may be below the detection limit of the test.Performed By: #### LIPA, CMP, HSTROPN #### [facility] [address] [place] [address] Dr. Oh Carrillo AGNegativeNormalNEGATIVE SEE COMMENTThe [facility] on above:Performed By: #### LIPA, CMP, HSTROPN #### [facility] [address] [place] [address] Dr. Oh Ashton AGNegativeNormalNEGATIVE SEE COMMENTThe [facility] HospitalComment on above:Performed By: #### LIPA, CMP, HSTROPN #### [facility] [address] [place] [address] Dr. Oh Bonilla AUTO DIFFon [id number] #0.0 103/ulNormal0.0-0.1The [facility] HospitalComment on above:Performed By: #### PTT, PT #### [facility] [address] [place] [address] Dr. Oh TrotterBasophils/100 WBC (Bld)0.2 %Normal0.2-2.0The [facility] Comment on above:Performed By: #### PTT, PT #### [facility] [address] [place] [address] Dr. Oh Shaw #0.0 103/ulNormal0.0-0.7The [facility] HospitalComment on above: Performed By: #### PTT, PT #### [facility] [address] [place] [address] Dr. Oh Huangosinophils/100 WBC (Bld)0.4 %Critically low0.9-7.0The [facility] Hospitalment on above:Performed By: #### PTT, PT #### [facility] [address] [place] [address] Dr. Oh Huangrythrocyte distribution width (RBC) [Ratio]12.2 %Khwgfi88.0-15.0 The [facility] HospitalComment on above:Performed By: #### PTT, PT #### [facility] [address] [place] [address] Dr. Oh TrotterHematocrit (Bld) [Volume fraction]45.7 %Mwsupf00.0-54.0The [facility] HospitalComment on above:Performed By: #### PTT, PT #### [facility] [address] [place] [address] Dr. Oh TrotterHemoglobin (Bld) [Mass/Vol]16.0 g/aNRfgqqp07.0-18.0The [facility] Hospitalment on above:Performed By: #### PTT, PT #### [facility] [address] [place] [address] Dr. Oh Malave #0.04 10e3/ulCritically high0.00-0.03The [facility] Comment on above:Performed By: #### PTT, PT #### [facility] [address] [place] [address] Dr. Oh TrotterIG %0.4 %Normal0.0-0.5The [facility] HospitalComment on above: Performed By: #### PTT, PT #### [facility] [address] [place] [address] Dr. Oh ShahMPH #2.8 103/ulNormal1.2-3.8The [facility] HospitalComment on above:Performed By: #### PTT, PT #### [facility] [address] [place] [address] Dr. Oh Shahmphocytes/100 WBC (Bld)29.5 %Otwmki12.5-60.0The [facility] Hospitalment on above:Performed By: #### PTT, PT #### [facility] [address] [place] [address] Dr. Oh Smith DIFF REQNONormalThe [facility] HospitalComment on above: Performed By: #### PTT, PT #### [facility] [address] [place] [address] Dr. Oh Lau (RBC) [Entitic mass]29.7 ynFyxfky41.9-34.0The [facility] HospitalComment on above:Performed By: #### PTT, PT #### [facility] [address] [place] [address] Dr. Oh Lau (RBC) [Mass/Vol]35.0 g/zWFwevxa07.9-35.2The [facility] HospitalComment on above:Performed By: #### PTT, PT #### [facility] [address] [place] [address] Dr. Oh Lau (RBC) [Entitic vol]84.8 fIEeofdx61.0-94.0The [facility] HospitalComment on above:Performed By: #### PTT, PT #### [facility] [address] [place] [address] Dr. Oh Johnson #0.5 103/ulNormal0.3-0.8The [facility] HospitalComment on above:Performed By: #### PTT, PT #### [facility] [address] [place] [address] Dr. Oh Cedeñoocytes/100 WBC (Bld)5.2 %Normal1.7-12.0The [facility] Comment on above:Performed By: #### PTT, PT #### [facility] [address] [place] [address] Dr. Oh Cruz #6.2 103/ulNormal1.4-6.5The [facility] HospitalComment on above:Performed By: #### PTT, PT #### [facility] [address] [place] [address] Dr. Oh Velazquezutrophils/100 WBC (Bld)64.3 %Onushx28.0-75.0The [facility] HospitalComment on above:Performed By: #### PTT, PT #### [facility] [address] [place] [address] Dr. Oh Holamnlet mean volume (Bld) [Entitic vol]9.9 fLNormal9.5-13.5The [facility] HospitalComment on above:Performed By: #### PTT, PT #### [facility] [address] [place] [address] Dr. Oh TrotterPLT196 103/smNeazik647-037Drm [facility] HospitalComment on above: Performed By: #### PTT, PT #### [facility] [address] [place] [address] Dr. Oh TrotterRBC5.39 106/ulNormal4.70-6.10The [facility] HospitalComment on above:Performed By: #### PTT, PT #### [facility] [address] [place] [address] Dr. Oh TrotterWBC9.6 103/ulNormal4.0-11.0The [facility] HospitalComment on above: Performed By: #### PTT, PT #### [facility] [address] [place] [address] Dr. Oh BlissDIMERon 79-70-7417L-DIMER<0.19Normal<=0.59[facility] Comment on above:Performed By: #### PTT, PT #### [facility] [address] [place] [address] Dr. Oh Delgado-DIMER COMMENTSSEE Cleveland ClinicComment on above:Result Comment: Increases in D-Dimer concentration [...] hospitalization. Performed By: #### PTT, PT #### [facility] [address] [address] [address] Oh Magana URINE PROFILEon [id number] Ql (U)NegativeNormal NEGATIVEPromedica Defiance Regional HospitalComment on above:Performed By: #### SRAVANI UMICRO #### [facility] [address] [address] [address] Oh TrotterClarity (U)CLEARNormalCLEARPromedica [facility]iance Regional HospitalComment on above: Performed By: #### SRAVANI UMICRO #### [facility] [address] [address] [address] Oh Maierlor (U)LT. YELLOWNormalYELLOWPromedica Defiance Regional HospitalComment on above:Performed By: #### SRAVANI UMICRO #### [facility] [address] [place] [address] Dr. Oh Washburn micrscopic examination will be performed if indicated. NormalPromedica Defiance Regional HospitalComment on above:Performed By: #### SRAVANI UMICRO #### [facility] [address] [place] [address] Dr. Oh TrotterGlucose Ql (U)NegativeNormalNEGATIVEPromedica Defiance Regional HospitalComment on above:Performed By: #### SRAVANI UMICRO #### [facility] [address] [place] [address] Dr. Oh TrotterHemoglobin Ql (U)SMALLAbnormalNEGATIVEBellevue Hospital on above:Performed By: #### SRAVANI UMICRO #### [facility] [address] [place] [address] Dr. Oh TrotterKetones Ql (U)NegativeNormalNEGATIVEPromedica [facility] HospitalComment on above:Performed By: #### SRAVANI UMICRO #### [facility] [address] [place] [address] Dr. Oh TrotterLEUKOCYTESNegativeNormalNEGATIVEPromedica Defiance Regional HospitalComment on above:Performed By: #### SRAVANI UMICRO #### [facility] [address] [place] [address] Dr. Oh Eng Ql (U)NegativeNormalNEGATIVEThe [facility] HospitalComment on above:Performed By: #### OSVALDO LASSITER #### [facility] [address] [place] [address] Dr. Oh TrotterpH (U)6.0 [pH]Normal5-9The [facility] HospitalComment on above: Performed By: #### OSVALDO LASSITER #### [facility] [address] [place] [address] Dr. Oh TrotterSPEC GRAVITY1.983Ddctme6.005-<=1.025The [facility] HospitalComment on above:Performed By: #### OSVALDO LASSITER #### [facility] [address] [place] [address] Dr. Oh TrotterUA PROTEINNegativeNormalNEGATIVE/ TRACEThe [facility] Comment on above:Performed By: #### OSVALDO LASSITER #### [facility] [address] [place] [address] Dr. Oh Castellanos MICRO INDINDICATEDNormalThe [facility] HospitalComment on above: Performed By: #### OSVALDO LASSITER #### [facility] [address] [place] [address] Dr. Oh TrotterUrobilinogen Qn (U)0.2 {Federico'U}/dLNormal0.2 - 1.0The [facility] HospitalComment on above:Performed By: #### OSVALDO LASSITER #### [facility] [address] [place] [address] Dr. Oh TrotterLIPASEon [id number] [Catalytic activity/Vol]125.0 U/LNormal 73.0-393.0The [facility] HospitalComment on above:Performed By: #### LIPA, CMP, HSTROPN #### [facility] [address] [place] [address] Dr. Oh TrotterPROF 14(COMP METB)on [id number] [Mass/Vol]3.8 g/dLNormal 3.4-5.0The [facility] HospitalComment on above:Performed By: #### LIPA, CMP, HSTROPN #### [facility] [address] [place] [address] Dr. Oh TrotterAlbumin/Globulin [Mass ratio]0.8 {ratio}NormalThe [facility] HospitalComment on above:Performed By: #### LIPA, CMP, HSTROPN #### [facility] [address] [place] [address] Dr. Oh Sheets [Catalytic activity/Vol]77 U/XFvnsbz09-949Rch [facility] HospitalComment on above:Performed By: #### LIPA, CMP, HSTROPN #### [facility] [address] [place] [address] Dr. Oh Negron [Catalytic activity/Vol]39 U/QNjwesb46-72Ebo [facility] HospitalComment on above:Performed By: #### LIPA, CMP, HSTROPN #### [facility] [address] [place] [address] Dr. Oh Claire gap [Moles/Vol]9.3 mmol/LNormalThe [facility] HospitalComment on above:Performed By: #### LIPA, CMP, HSTROPN #### [facility] [address] [place] [address] Dr. Oh Milner [Catalytic activity/Vol]21 U/LQhkzgh81-41Fse [facility] HospitalComment on above:Performed By: #### LIPA, CMP, HSTROPN #### [facility] [address] [place] [address] Dr. Oh TrotterBilirubin [Mass/Vol]0.4 mg/dLNormal0.2-1.0The [facility] Comment on above:Performed By: #### LIPA, CMP, HSTROPN #### [facility] [address] [place] [address] Dr. Oh TrotterCalcium [Mass/Vol]9.2 mg/dLNormal8.5-10.1The [facility] Comment on above:Performed By: #### LIPA, CMP, HSTROPN #### [facility] [address] [address] [address] Oh TrotterChloride [Moles/Vol]102 mmol/IRqzebg98-619XaxPromedica [facility] Hospital Comment on above:Performed By: #### LIPA, CMP, HSTROPN #### [facility] [address] [address] [address] Oh TrotterCO2 [Moles/Vol]26.6 mmol/BWawvwb34.0-32.0[facility] Comment on above:Performed By: #### LIPA, CMP, HSTROPN #### [facility] [address] [place] [address] Dr. Oh TrotterCreatinine [Mass/Vol]1.08 mg/dLNormal0.70-1.30[facility] HospitalComment on above:Performed By: #### LIPA, CMP, HSTROPN #### [facility] [address] [place] [address] Dr. Oh HuangGFR-AF SWEDISH>60Normal>=60[facility] HospitalComment on above:Performed By: #### LIPA, CMP, HSTROPN #### [facility] [address] [place] [address] Dr. Oh HuangGFR-NON AF SWEDISH>60Normal>=60[facility] HospitalComment on above:Performed By: #### LIPA, CMP, HSTROPN #### [facility] [address] [address] [address] Oh TrotterGlobulin (S) [Mass/Vol]4.7 g/dLNormalThe [facility] HospitalComment on above:Performed By: #### LIPA, CMP, HSTROPN #### [facility] [address] [place] [address] Dr. Oh TrotterGlucose [Mass/Vol]103 mg/xZGoehce20-164TzhPromedica Defiance [facility] Hospital Comment on above:Performed By: #### LIPA, CMP, HSTROPN #### [facility] [address] [address] [address] Oh TrotterPotassium [Moles/Vol]3.9 mmol/LNormal3.5-5.1The [facility] Comment on above:Performed By: #### LIPA, CMP, HSTROPN #### [facility] [address] [place] [address] Dr. Oh TrotterProtein [Mass/Vol]8.5 g/dLCritically high6.4-8.2The [facility] HospitalComment on above:Performed By: #### LIPA, CMP, HSTROPN #### [facility] [address] [place] [address] Dr. Oh TrotterSodium [Moles/Vol]134 mmol/LCritically rxu194-481Xri [facility] HospitalComment on above:Performed By: #### LIPA, CMP, HSTROPN #### [facility] [address] [place] [address] Dr. Oh TrotterUrea nitrogen [Mass/Vol]20.0 mg/dLCritically high7.0-18.0The [facility] HospitalComment on above:Performed By: #### LIPA, CMP, HSTROPN #### [facility] [address] [place] [address] Dr. Oh Amador nitrogen/Creatinine [Mass ratio]18.5 mg/mgNoKettering Health Greene MemorialComment on above:Performed By: #### LIPA, CMP, HSTROPN #### [facility] [address] [place] [address] Dr. Oh TrotterPROTIMEon [id number] Coag (PPP) [Relative time]1.00 {INR} NormalThe [facility] HospitalComment on above:Performed By: #### PTT, PT #### [facility] [address] [place] [address] Dr. Oh Coy GUIDELINESSEE BELOWCincinnati Shriners HospitalComment on above:Result Comment: DESIRED INR: 2.0 - 3.0 CONDITIONS NOT LISTED BELOW 2.5 - 3.5 FOR PROSTHETIC HEART VALVE REPLACEMENT 2.5 - 3.5 RECURRENT THROMBOSIS Performed By: #### PTT, PT #### [facility] [address] [place] [address] Dr. Oh Young Coag (PPP) [Time]10.8 sNormal9.0-11.6The [facility] Comment on above:Performed By: #### PTT, PT #### [facility] [address] [place] [address] Dr. Oh Lozoya [id number] Coag (Bld) [Time]27.9 wZouhyp27.3-36.2The [facility] HospitalComment on above:Performed By: #### PTT, PT #### [facility] [address] [place] [address] Dr. Oh Miller, HIGH SENSITIVITYon [id number] pg/mLNormal 4.0-76.1The [facility] HospitalComment on above:Result Comment: CUT-OFF POINTS HAVE BEEN ESTABLISHED BASED ON THE FOURTH UNIVERSAL DEFINITIONS OF MYOCARDIAL INFARCTION. THE UPPER REFERENCE LIMIT (URL) OF TROPONIN, DEFINED THE 99TH PERCENTILE OF cTnI DISTRIBUTION IN A REFERENCE POPULATION, HAS BEEN CONFIRMED THE DECISION THRESHOLD FOR OK DIAGNOSIS.Performed By: #### LIPA, CMP, HSTROPN #### [facility] [address] [place] [address] Dr. Oh DIOR ONLYon [id number] SEENNormalNONE SEENPromedica Defiance Regional HospitalComment on above:Performed By: #### MATHIEU LASSITERRO #### [facility] [address] [place] [address] Dr. Oh Bhat identified Cx Nom (U)NOT INDICATEDNormalThe [facility] HospitalComment on above:Performed By: #### AUBRIE LASSITERICRO #### [facility] [address] [place] [address] Dr. Oh Dudley SEENNormalNONE SEENPromedica Defiance Regional HospitalComment on above:Performed By: #### MATHIEU LASSITERRO #### [facility] [address] [place] [address] Dr. Yilan ChangCrystals LM Nom (Urine sed)NONE SEENNormalNONE SEENThe [facility] HospitalComment on above:Performed By: #### ERUR, UMICRO #### [facility] [address] [place] [address] Dr. Casiano ChangEpithelial cells LM Ql (Urine sed)FEWAbnormalNONE SEEN /RAREThe [facility] HospitalComment on above:Performed By: #### SHAUNR, UMICRO #### [facility] [address] [place] [address] Dr. Oh TrotterMUCOUSMODERATEAbnormalNONE SEENThe [facility] HospitalComment on above:Performed By: #### SRAVNAI, UMICRO #### [facility] [address] [place] [address] Dr. Oh TrotterXcxmvLWT1-6Puntfr5-4Lpr [facility] HospitalComment on above:Performed By: #### SRAVANI, UMICRO #### [facility] [address] [place] [address] Dr. Oh TrotterWBCNONE SEENNormalNONE SEENThe [facility] HospitalComment on above: Performed By: #### SRAVANI, UMICRO #### [facility] [address] [place] [address] Dr. Oh TrotterXR ABD FLAT UP_PA German [id number] ABD FLAT UP_PA CHEXAM: Acute abdomen series: [...] Electronically authenticated by: LUCY JEWELL Date: 2022-03-06 15:55[facility] HospitalXR CSPINE 2_3 VIEWSon [id number] CSPINE 2_3 VIEWSEXAM: C-spine HISTORY: Neck pain [...] Electronically authenticated by: LUCY JEWELL Date: 2022-03-06 15:54NormalThHolzer Medical Center – [facility] AUTO DIFFon [id number] #0.0 103/ulNormal0.0-0.1[facility] HospitalComment on above:Performed By: #### LIPA, CMP, HSTROPN #### [facility] [address] [place] [address] Dr. Oh TrotterBasophils/100 WBC (Bld)0.2 %Normal0.2-2.0[facility] Comment on above:Performed By: #### LIPA, CMP, HSTROPN #### [facility] [address] [place] [address] Dr. Oh Shaw #0.1 103/ulNormal0.0-0.7The [facility] HospitalComment on above: Performed By: #### LIPA, CMP, HSTROPN #### [facility] [address] [place] [address] Dr. Oh Huangosinophils/100 WBC (Bld)1.0 %Normal0.9-7.0[facility] Comment on above:Performed By: #### LIPA, CMP, HSTROPN #### [facility] [address] [place] [address] Dr. Oh Huangrythrocyte distribution width (RBC) [Ratio]13.0 %Fefssi87.0-15.0 [facility] HospitalComment on above:Performed By: #### LIPA, CMP, HSTROPN #### [facility] [address] [place] [address] Dr. Oh TrotterHematocrit (Bld) [Volume fraction]46.6 %Ktzlls94.0-54.0The [facility] HospitalComment on above:Performed By: #### LIPA, CMP, HSTROPN #### [facility] [address] [place] [address] Dr. Oh TrotterHemoglobin (Bld) [Mass/Vol]15.8 g/bYNpgfiv76.0-18.0The [facility] HospitalComment on above:Performed By: #### LIPA, CMP, HSTROPN #### [facility] [address] [place] [address] Dr. Oh Malave #0.02 10e3/ulNormal0.00-0.03The [facility] HospitalComment on above:Performed By: #### LIPA, CMP, HSTROPN #### [facility] [address] [place] [address] Dr. Oh Malave %0.2 %Normal0.0-0.5The [facility] HospitalComment on above: Performed By: #### LIPA, CMP, HSTROPN #### [facility] [address] [place] [address] Dr. Oh Aldana #1.6 103/ulNormal1.2-3.8The [facility] HospitalComment on above:Performed By: #### LIPA, CMP, HSTROPN #### [facility] [address] [place] [address] Dr. Oh Orellanahocytes/100 WBC (Bld)15.3 %Critically low20.5-60.0The [facility] HospitalComment on above:Performed By: #### LIPA, CMP, HSTROPN #### [facility] [address] [place] [address] Dr. Oh SaldanaUAL DIFF REQNONormalThe [facility] HospitalComment on above: Performed By: #### LIPA, CMP, HSTROPN #### [facility] [address] [place] [address] Dr. Oh Valentin (RBC) [Entitic mass]30.1 kiWulfar55.9-34.0The [facility] HospitalComment on above:Performed By: #### LIPA, CMP, HSTROPN #### [facility] [address] [place] [address] Dr. Oh Lau (RBC) [Mass/Vol]33.9 g/kJArwduu91.9-35.2The [facility] HospitalComment on above:Performed By: #### LIPA, CMP, HSTROPN #### [facility] [address] [place] [address] Dr. Oh Lau (RBC) [Entitic vol]88.8 jYRondtf74.0-94.0The [facility] HospitalComment on above:Performed By: #### LIPA, CMP, HSTROPN #### [facility] [address] [place] [address] Dr. Oh Johnson #0.7 103/ulNormal0.3-0.8The [facility] HospitalComment on above:Performed By: #### LIPA, CMP, HSTROPN #### [facility] [address] [place] [address] Dr. Oh Cedeñoocytes/100 WBC (Bld)6.8 %Normal1.7-12.0[facility] Comment on above:Performed By: #### LIPA, CMP, HSTROPN #### [facility] [address] [place] [address] Dr. Oh Cruz #7.9 103/ulCritically high1.4-6.5The [facility] Comment on above:Performed By: #### LIPA, CMP, HSTROPN #### [facility] [address] [place] [address] Dr. Oh Velazquezutrophils/100 WBC (Bld)76.5 %Critically high43.0-75.0The [facility] HospitalComment on above:Performed By: #### LIPA, CMP, HSTROPN #### [facility] [address] [place] [address] Dr. Oh Holmanlet mean volume (Bld) [Entitic vol]9.5 fLNormal9.5-13.5The [facility] HospitalComment on above:Performed By: #### LIPA, CMP, HSTROPN #### [facility] [address] [place] [address] Dr. Oh TrotterPLT191 103/grPlhust536-600Fqs [facility] HospitalComment on above: Performed By: #### LIPA, CMP, HSTROPN #### [facility] [address] [place] [address] Dr. Oh TrotterRBC5.25 106/ulNormal4.70-6.10The [facility] HospitalComment on above:Performed By: #### LIPA, CMP, HSTROPN #### [facility] [address] [place] [address] Dr. Oh TrotterWBC10.4 103/ulNormal4.0-11.0The [facility] HospitalComment on above:Performed By: #### LIPA, CMP, HSTROPN #### [facility] [address] [place] [address] Dr. Oh TrotterPROF CHEM 8 (BAS METB)on 03-08-2501Wtqiy gap [Moles/Vol]9.7 mmol/LNormalThe [facility] HospitalComment on above:Performed By: #### LIPA, CMP, HSTROPN #### [facility] [address] [place] [address] Dr. Oh TrotterCalcium [Mass/Vol]8.9 mg/dLNormal8.5-10.1The [facility] Comment on above:Performed By: #### LIPA, CMP, HSTROPN #### [facility] [address] [place] [address] Dr. Oh TrotterChloride [Moles/Vol]102 mmol/QSrniui94-174Clx [facility] Comment on above:Performed By: #### LIPA, CMP, HSTROPN #### [facility] [address] [place] [address] Dr. Oh TrotterCO2 [Moles/Vol]29.1 mmol/EJweepj81.0-32.0[facility] Comment on above:Performed By: #### LIPA, CMP, HSTROPN #### [facility] [address] [place] [address] Dr. Oh TrotterCreatinine [Mass/Vol]1.10 mg/dLNormal0.70-1.30The [facility] HospitalComment on above:Performed By: #### LIPA, CMP, HSTROPN #### [facility] [address] [place] [address] Dr. Oh HuangGFR-AF SWEDISH>60Normal>=60The [facility] HospitalComment on above:Performed By: #### LIPA, CMP, HSTROPN #### [facility] [address] [place] [address] Dr. Oh HuangGFR-NON AF SWEDISH>60Normal>=60The [facility] HospitalComment on above:Performed By: #### LIPA, CMP, HSTROPN #### [facility] [address] [place] [address] Dr. Oh TrotterGlucose [Mass/Vol]114 mg/dLCritically lmmd67-690Oxc [facility] HospitalComment on above:Performed By: #### LIPA, CMP, HSTROPN #### [facility] [address] [place] [address] Dr. Oh TrotterPotassium [Moles/Vol]3.8 mmol/LNormal3.5-5.1[facility] Comment on above:Performed By: #### LIPA, CMP, HSTROPN #### [facility] [address] [place] [address] Dr. Oh TrotterSodium [Moles/Vol]137 mmol/JFspgie386-850Jma [facility] Comment on above:Performed By: #### LIPA, CMP, HSTROPN #### [facility] [address] [place] [address] Dr. Oh TrotterUrea nitrogen [Mass/Vol]10.0 mg/dLNormal7.0-18.0The [facility] HospitalComment on above:Performed By: #### LIPA, CMP, HSTROPN #### [facility] [address] [address] [address] Oh Amador nitrogen/Creatinine [Mass ratio]9.1 mg/mgNormalThe [facility] HospitalComment on above:Performed By: #### LIPA, CMP, HSTROPN #### [facility] [address] [address] [address] Oh Chris SUKUMAR ADMITon [id number] [Catalytic activity/Vol]97 U/L Thegzl16-918Rpf [facility] Hospitalment on above:Performed By: #### LIPA, CMP, HSTROPN #### [facility] [address] [address] [address] Oh Garcias.MB [Mass/Vol]0.75 ng/mLNormal<=3.60The [facility] Comment on above:Performed By: #### LIPA, CMP, HSTROPN #### [facility] [address] [place] [address] Dr. Oh TrotterHSTROP4.4 pg/mLNormal4.0-76.1The [facility] on above:Result Comment: CUT-OFF POINTS HAVE BEEN ESTABLISHED BASED ON THE FOURTH UNIVERSAL DEFINITIONS OF MYOCARDIAL INFARCTION. THE UPPER REFERENCE LIMIT (URL) OF TROPONIN, DEFINED THE 99TH PERCENTILE OF cTnI DISTRIBUTION IN A REFERENCE POPULATION, HAS BEEN CONFIRMED THE DECISION THRESHOLD FOR OK DIAGNOSIS.Performed By: #### LIPA, CMP, HSTROPN #### [facility] [address] [place] [address] Dr. Oh TrotterMYO54 ng/qLRnpcaw33-67Zno [facility] Hospitalment on above: Performed By: #### LIPA, CMP, HSTROPN #### [facility] [address] [place] [address] Dr. Oh Bonilla AUTO DIFFon [id number] #0.0 103/ulNormal0.0-0.1The [facility] on above:Performed By: #### PTT, PT #### [facility] [address] [place] [address] Dr. Oh TrotterBasophils/100 WBC (Bld)0.1 %Critically low0.2-2.0The [facility] on above:Performed By: #### PTT, PT #### [facility] [address] [place] [address] Dr. Oh Shaw #0.0 103/ulNormal0.0-0.7The [facility] HospitalComment on above: Performed By: #### PTT, PT #### [facility] [address] [place] [address] Dr. Oh Huangosinophils/100 WBC (Bld)0.3 %Critically low0.9-7.0The [facility] on above:Performed By: #### PTT, PT #### [facility] [address] [place] [address] Dr. Oh Huangrythrocyte distribution width (RBC) [Ratio]12.5 %Thxysc09.0-15.0 The [facility] on above:Performed By: #### PTT, PT #### [facility] [address] [place] [address] Dr. Oh TrotterHematocrit (Bld) [Volume fraction]47.1 %Cspdpk73.0-54.0The [facility] on above:Performed By: #### PTT, PT #### [facility] [address] [place] [address] Dr. Oh TrotterHemoglobin (Bld) [Mass/Vol]16.7 g/sKVaueha14.0-18.0The [facility] on above:Performed By: #### PTT, PT #### [facility] [address] [place] [address] Dr. Oh Malave #0.02 10e3/ulNormal0.00-0.03The [facility] on above:Performed By: #### PTT, PT #### [facility] [address] [place] [address] Dr. Oh TrotterIG %0.3 %Normal0.0-0.5The [facility] HospitalComment on above: Performed By: #### PTT, PT #### [facility] [address] [place] [address] Dr. Oh Aldana #2.3 103/ulNormal1.2-3.8The [facility] HospitalComment on above:Performed By: #### PTT, PT #### [facility] [address] [place] [address] Dr. Oh Orellanahocytes/100 WBC (Bld)31.7 %Aovmja13.5-60.0The [facility] HospitalComment on above:Performed By: #### PTT, PT #### [facility] [address] [place] [address] Dr. Oh Smith DIFF REQNONormalThe [facility] HospitalComment on above: Performed By: #### PTT, PT #### [facility] [address] [place] [address] Dr. Oh Valentin (RBC) [Entitic mass]29.9 ojQxkhfk63.9-34.0The [facility] HospitalComment on above:Performed By: #### PTT, PT #### [facility] [address] [place] [address] Dr. Oh Lau (RBC) [Mass/Vol]35.5 g/dLCritically high29.9-35.2The [facility] HospitalComment on above:Performed By: #### PTT, PT #### [facility] [address] [place] [address] Dr. Oh Sahni (RBC) [Entitic vol]84.4 bZAwtbnv87.0-94.0The [facility] HospitalComment on above:Performed By: #### PTT, PT #### [facility] [address] [place] [address] Dr. Oh Johnson #0.4 103/ulNormal0.3-0.8The [facility] HospitalComment on above:Performed By: #### PTT, PT #### [facility] [address] [place] [address] Dr. Oh Cedeñoocytes/100 WBC (Bld)4.9 %Normal1.7-12.0The [facility] Comment on above:Performed By: #### PTT, PT #### [facility] [address] [place] [address] Dr. Oh Cruz #4.6 103/ulNormal1.4-6.5The [facility] HospitalComment on above:Performed By: #### PTT, PT #### [facility] [address] [place] [address] Dr. Oh Velazquezutrophils/100 WBC (Bld)62.7 %Svvnnv73.0-75.0The [facility] HospitalComment on above:Performed By: #### PTT, PT #### [facility] [address] [place] [address] Dr. Oh Holmanlet mean volume (Bld) [Entitic vol]10.3 fLNormal9.5-13.5The [facility] HospitalComment on above:Performed By: #### PTT, PT #### [facility] [address] [place] [address] Dr. Oh TrotterPLT225 103/ymVvdpde103-182Swf [facility] HospitalComment on above: Performed By: #### PTT, PT #### [facility] [address] [place] [address] Dr. Oh TrotterRBC5.58 106/ulNormal4.70-6.10The [facility] HospitalComment on above:Performed By: #### PTT, PT #### [facility] [address] [place] [address] Dr. Oh TrotterWBC7.3 103/ulNormal4.0-11.0The [facility] HospitalComment on above: Performed By: #### PTT, PT #### [facility] [address] [place] [address] Dr. Oh Delgado-DIMERon 03-51-8017B-DIMER<0.19Normal<=0.59The [facility] Comment on above:Performed By: #### PTT, PT #### [facility] [address] [place] [address] Dr. Oh TrotterD-DIMER COMMENTSSEE BELOWNormMiami [facility] on above:Result Comment: Increases in D-Dimer [...] hospitalization. Performed By: #### PTT, PT #### [facility] [address] [place] [address] Dr. Oh TrotterLIPASEon 37-75-5819Mbddti [Catalytic activity/Vol]127.0 U/LNormal 73.0-393.0The [facility] Hospitalment on above:Performed By: #### LIPA, CMP, HSTROPN #### [facility] [address] [place] [address] Dr. Oh TrotterPROF 14(COMP METB)on 67-26-6301Tsxbwfz [Mass/Vol]4.0 g/dLNormal 3.4-5.0The [facility] on above:Performed By: #### LIPA, CMP, HSTROPN #### [facility] [address] [place] [address] Dr. Oh TrotterAlbumin/Globulin [Mass ratio]0.9 {ratio}NormalThe [facility] on above:Performed By: #### LIPA, CMP, HSTROPN #### [facility] [address] [place] [address] Dr. Oh Sheets [Catalytic activity/Vol]73 U/SLappsi73-365Exc [facility] on above:Performed By: #### LIPA, CMP, HSTROPN #### [facility] [address] [place] [address] Dr. Oh Negron [Catalytic activity/Vol]45 U/NNwvbkl51-74Gfl [facility] HospitalComment on above:Performed By: #### LIPA, CMP, HSTROPN #### [facility] [address] [address] [address] Oh TrotterAnion gap [Moles/Vol]15.4 mmol/LNormalProm[facility] Comment on above:Performed By: #### LIPA, CMP, HSTROPN #### [facility] [address] [address] [address] Oh TrotterAST [Catalytic activity/Vol]25 U/KTvpljv78-11Jxi [facility] HospitalComment on above:Performed By: #### LIPA, CMP, HSTROPN #### [facility] [address] [place] [address] Dr. Oh TrotterBilirubin [Mass/Vol]0.9 mg/dLNormal0.2-1.0[facility] Comment on above:Performed By: #### LIPA, CMP, HSTROPN #### [facility] [facility] [address] [place] [address] Dr. Oh TrotterCalcium [Mass/Vol]9.3 mg/dLNormal8.5-10.1[facility] Comment on above:Performed By: #### LIPA, CMP, HSTROPN #### [facility] [address] [place] [address] Dr. Oh TrotterChloride [Moles/Vol]103 mmol/OCchuby17-961WvvPromedica Defiance [facility] Comment on above:Performed By: #### LIPA, CMP, HSTROPN #### [facility] [address] [place] [address] Dr. Oh TrotterCO2 [Moles/Vol]20.4 mmol/LCritically low21.0-32.0The [facility] HospitalComment on above:Performed By: #### LIPA, CMP, HSTROPN #### [facility] [address] [place] [address] Dr. Oh TrotterCreatinine [Mass/Vol]1.17 mg/dLNormal0.70-1.30The [place] HospitalComment on above:Performed By: #### LIPA, CMP, HSTROPN #### [facility] [address] [address] [address] Oh HuangGFR-AF SWEDISH>60Normal>=60The [facility] HospitalComment on above:Performed By: #### LIPA, CMP, HSTROPN #### [facility] [address] [address] [address] Oh HuangGFR-NON AF SWEDISH>60Normal>=60The [facility] HospitalComment on above:Performed By: #### LIPA, CMP, HSTROPN #### [facility] [address] [place] [address] Dr. Oh TrotterGlobulin (S) [Mass/Vol]4.6 g/dLNormalThe [facility] HospitalComment on above:Performed By: #### LIPA, CMP, HSTROPN #### [facility] [address] [place] [address] Dr. Oh TrotterGlucose [Mass/Vol]127 mg/dLCritically diqn88-028Ebx [facility] HospitalComment on above:Performed By: #### LIPA, CMP, HSTROPN #### [facility] [address] [place] [address] Dr. Oh TrotterPotassium [Moles/Vol]3.8 mmol/LNormal3.5-5.1The [facility] Comment on above:Performed By: #### LIPA, CMP, HSTROPN #### [facility] [address] [place] [address] Dr. Oh TrotterProtein [Mass/Vol]8.6 g/dLCritically high6.4-8.2The [facility] HospitalComment on above:Performed By: #### LIPA, CMP, HSTROPN #### [facility] [address] [place] [address] Dr. Oh TrotterSodium [Moles/Vol]135 mmol/LCritically hou694-134Xrw [facility] HospitalComment on above:Performed By: #### LIPA, CMP, HSTROPN #### [facility] [address] [address] [address] Oh TrotterUrea nitrogen [Mass/Vol]12.0 mg/dLNormal7.0-18.0The [facility] HospitalComment on above:Performed By: #### LIPA, CMP, HSTROPN #### [facility] [address] [address] [address] Oh TrotterUrea nitrogen/Creatinine [Mass ratio]10.3 mg/mgNoKettering Health Greene MemorialComment on above:Performed By: #### LIPA, CMP, HSTROPN #### [facility] [address] [address] [address] Oh TrotterXR CHEST 1 Von 33-43-9640JX CHEST 1 VEXAM: XR CHEST 1 V [...] Electronically authenticated by: GALDINO ARROYO Date: 2021-10-16 13:09[facility] HospitalBNAspirus [facility] 73-19-0822Krdrreedjov peptide B (Bld) [Mass/Vol]9.0 pg/mL Normal<=450.0The [facility] on above:Performed By: #### HSTROPN, TSH, BNP, CMP #### [facility] [address] [place] [address] Dr. Oh TrotterCBC AUTO DIFFon 19-08-3891WYBM #0.0 103/ulNormal0.0-0.1The [facility] on above:Performed By: #### LIPA, CMP, HSTROPN #### [facility] [address] [place] [address] Dr. Oh TrotterBasophils/100 WBC (Bld)0.1 %Critically low0.2-2.0The [place] HospitalComment on above:Performed By: #### LIPA, CMP, HSTROPN #### [facility] [address] [place] [address] Dr. Oh Shaw #0.1 103/ulNormal0.0-0.7The [facility] on above: Performed By: #### LIPA, CMP, HSTROPN #### [facility] [address] [place] [address] Dr. Oh Huangosinophils/100 WBC (Bld)0.6 %Critically low0.9-7.0The [facility] on above:Performed By: #### LIPA, CMP, HSTROPN #### [facility] [address] [place] [address] Dr. Oh Huangrythrocyte distribution width (RBC) [Ratio]12.5 %Gwcjzf64.0-15.0 The [facility] on above:Performed By: #### LIPA, CMP, HSTROPN #### [facility] [address] [place] [address] Dr. Oh TrotterHematocrit (Bld) [Volume fraction]48.3 %Mcjkys75.0-54.0The [facility] on above:Performed By: #### LIPA, CMP, HSTROPN #### [facility] [address] [place] [address] Dr. Oh TrotterHemoglobin (Bld) [Mass/Vol]16.7 g/cJKdegxn51.0-18.0The [facility] on above:Performed By: #### LIPA, CMP, HSTROPN #### [facility] [address] [place] [address] Dr. Oh Malave #0.01 10e3/ulNormal0.00-0.03The [facility] on above:Performed By: #### LIPA, CMP, HSTROPN #### [facility] [address] [place] [address] Dr. Oh Malave %0.1 %Normal0.0-0.5The [facility] HospitalComment on above: Performed By: #### LIPA, CMP, HSTROPN #### [facility] [address] [place] [address] Dr. Oh Aldana #3.5 103/ulNormal1.2-3.8The [facility] on above:Performed By: #### LIPA, CMP, HSTROPN #### [facility] [address] [place] [address] Dr. Oh Orellanahocytes/100 WBC (Bld)38.8 %Irfcvd06.5-60.0The [facility] HospitalComment on above:Performed By: #### LIPA, CMP, HSTROPN #### [facility] [address] [place] [address] Dr. Oh Smith DIFF REQNONormalThe [facility] HospitalComment on above: Performed By: #### LIPA, CMP, HSTROPN #### [facility] [address] [place] [address] Dr. Oh Lau (RBC) [Entitic mass]29.3 esGgedue57.9-34.0The [facility] Hospitalment on above:Performed By: #### LIPA, CMP, HSTROPN #### [facility] [address] [place] [address] Dr. Oh Lau (RBC) [Mass/Vol]34.6 g/mJIhbotj97.9-35.2The [facility] HospitalComment on above:Performed By: #### LIPA, CMP, HSTROPN #### [facility] [address] [place] [address] Dr. Oh Lau (RBC) [Entitic vol]84.9 kJKkuevs83.0-94.0The [facility] on above:Performed By: #### LIPA, CMP, HSTROPN #### [facility] [address] [place] [address] Dr. Oh Johnson #0.5 103/ulNormal0.3-0.8The [facility] Hospitalment on above:Performed By: #### LIPA, CMP, HSTROPN #### [facility] [address] [address] [address] Oh Cedeñoocytes/100 WBC (Bld)5.4 %Normal1.7-12.0The [facility] Comment on above:Performed By: #### LIPA, CMP, HSTROPN #### [facility] [address] [place] [address] Dr. Oh VelazquezUT #4.9 103/ulNormal1.4-6.5The [facility] Hospitalment on above:Performed By: #### LIPA, CMP, HSTROPN #### [facility] [address] [place] [address] Dr. Oh Velazquezutrophils/100 WBC (Bld)55.0 %Lkkikl05.0-75.0The [facility] Hospitalment on above:Performed By: #### LIPA, CMP, HSTROPN #### [facility] [address] [place] [address] Dr. Oh TrotterPlatelet mean volume (Bld) [Entitic vol]9.7 fLNormal9.5-13.5The [facility] Hospitalment on above:Performed By: #### LIPA, CMP, HSTROPN #### [facility] [address] [place] [address] Dr. Oh TrotterPLT227 103/bpZvnoka543-968Moc [facility] Hospitalment on above: Performed By: #### LIPA, CMP, HSTROPN #### [facility] [address] [place] [address] Dr. Oh TrotterRBC5.69 106/ulNormal4.70-6.10The [facility] Hospitalment on above:Performed By: #### LIPA, CMP, HSTROPN #### [facility] [address] [place] [address] Dr. Oh TrotterWBC8.9 103/ulNormal4.0-11.0The [facility] on above: Performed By: #### LIPA, CMP, HSTROPN #### [facility] [address] [address] [address] Oh Delgado-DIMERon 39-68-4403F-DIMER0.19 mg/L FEUNormal<=0.59The [facility] on above:Performed By: #### LIPA, CMP, HSTROPN #### [facility] [address] [place] [address] Dr. Oh Delgado-DIMER COMMENTSSEE [facility] on above:Result Comment: Increases in D-Dimer [...] Performed By: #### LIPA, CMP, HSTROPN #### [facility] [address] [place] [address] Dr. Oh TrotterPROF 14(COMP METB)on 78-88-9660Aoujsua [Mass/Vol]3.9 g/dLNormal 3.4-5.0The [facility] on above:Performed By: #### HSTROPN, TSH, BNP, CMP #### [facility] [address] [place] [address] Dr. Oh TrotterAlbumin/Globulin [Mass ratio]0.8 {ratio}NormalThe [facility] on above:Performed By: #### HSTROPN, TSH, BNP, CMP #### [facility] [address] [place] [address] Dr. Oh Sheets [Catalytic activity/Vol]73 U/IGadzyu88-117VuaMetroHealth [facility] on above:Performed By: #### HSTROPN, TSH, BNP, CMP #### [facility] [address] [place] [address] Dr. Oh Negron [Catalytic activity/Vol]48 U/UPihouc63-89Xcr [facility] HospitalComment on above:Performed By: #### HSTROPN, TSH, BNP, CMP #### [facility] [address] [address] [address] Oh Smithon gap [Moles/Vol]14.9 mmol/LNormalProm[facility] Comment on above:Performed By: #### HSTROPN, TSH, BNP, CMP #### [facility] [address] [place] [address] Dr. Oh TrotterAST [Catalytic activity/Vol]22 U/NItdhyk33-19Gte [facility] HospitalComment on above:Performed By: #### HSTROPN, TSH, BNP, CMP #### [facility] [address] [place] [address] Dr. Oh TrotterBilirubin [Mass/Vol]0.4 mg/dLNormal0.2-1.0[facility] Comment on above:Performed By: #### HSTROPN, TSH, BNP, CMP #### [facility] [address] [place] [address] Dr. Oh TrotterCalcium [Mass/Vol]9.2 mg/dLNormal8.5-10.1[facility] Comment on above:Performed By: #### HSTROPN, TSH, BNP, CMP #### [facility] [address] [address] [address] Oh TrotterChloride [Moles/Vol]102 mmol/EXdcnat48-636Azw [facility] Comment on above:Performed By: #### HSTROPN, TSH, BNP, CMP #### [facility] [address] [place] [address] Dr. Oh TrotterCO2 [Moles/Vol]23.7 mmol/YBxnxfs15.0-32.0The [facility] Comment on above:Performed By: #### HSTROPN, TSH, BNP, CMP #### [facility] [address] [place] [address] Dr. Yilan ChangCreatinine [Mass/Vol]1.14 mg/dLNormal0.70-1.30The [facility] HospitalComment on above:Performed By: #### HSTROPN, TSH, BNP, CMP #### [facility] [address] [address] [address] Oh HuangGFR-AF SWEDISH>60Normal>=60The [facility] HospitalComment on above:Performed By: #### HSTROPN, TSH, BNP, CMP #### [facility] [address] [address] [address] Oh HuangGFR-NON AF SWEDISH>60Normal>=60The [facility] HospitalComment on above:Performed By: #### HSTROPN, TSH, BNP, CMP #### [facility] [address] [place] [address] Dr. Oh TrotterGlobulin (S) [Mass/Vol]4.7 g/dLNormalThe [facility] HospitalComment on above:Performed By: #### HSTROPN, TSH, BNP, CMP #### [facility] [address] [place] [address] Dr. Oh TrotterGlucose [Mass/Vol]120 mg/dLCritically saka43-659Hqy [facility] Hospitalment on above:Performed By: #### HSTROPN, TSH, BNP, CMP #### [facility] [address] [place] [address] Dr. Oh TrotterPotassium [Moles/Vol]3.6 mmol/LNormal3.5-5.1The [facility] Comment on above:Performed By: #### HSTROPN, TSH, BNP, CMP #### [facility] [address] [place] [address] Dr. Oh TrotterProtein [Mass/Vol]8.6 g/dLCritically high6.4-8.2The [facility] HospitalComment on above:Performed By: #### HSTROPN, TSH, BNP, CMP #### [facility] [address] [place] [address] Dr. Oh TrotterSodium [Moles/Vol]137 mmol/PZmjgiu652-281[facility] Comment on above:Performed By: #### HSTROPN, TSH, BNP, CMP #### [facility] [address] [place] [address] Dr. Oh Amador nitrogen [Mass/Vol]12.0 mg/dLNormal7.0-18.0[facility] HospitalComment on above:Performed By: #### HSTROPN, TSH, BNP, CMP #### [facility] [address] [place] [address] Dr. Oh Amador nitrogen/Creatinine [Mass ratio]10.5 mg/mgNoKettering Health Greene MemorialComment on above:Performed By: #### HSTROPN, TSH, BNP, CMP #### [facility] [address] [place] [address] Dr. Oh Frey 08-84-6275NJB Coag (PPP) [Relative time]0.94 {INR} NormalThe [facility] HospitalComment on above:Performed By: #### LIPA, CMP, HSTROPN #### [facility] [address] [place] [address] Dr. Oh Coy GUIDELINESSEE BELOWCincinnati Shriners HospitalComment on above:Result Comment: DESIRED INR: 2.0 - 3.0 CONDITIONS NOT LISTED BELOW 2.5 - 3.5 FOR PROSTHETIC HEART VALVE REPLACEMENT 2.5 - 3.5 RECURRENT THROMBOSIS Performed By: #### LIPA, CMP, HSTROPN #### [facility] [address] [place] [address] Dr. Oh TrotterPT Coag (PPP) [Time]10.2 sNormal9.0-11.6The [facility] Comment on above:Performed By: #### LIPA, CMP, HSTROPN #### [facility] [address] [place] [address] Dr. Oh Lozoya 87-40-5307wVUY Coag (Bld) [Time]26.6 jEyyupp75.3-36.2[facility] HospitalComment on above:Performed By: #### LIPA, CMP, HSTROPN #### [facility] [address] [address] [address] Oh Miller, HIGH SENSITIVITYon 38-51-0869NIMFJP1.4 pg/mLCritically low4.0-76.1[facility] on above:Result Comment: CUT-OFF POINTS HAVE BEEN ESTABLISHED BASED ON THE FOURTH UNIVERSAL DEFINITIONS OF MYOCARDIAL INFARCTION. THE UPPER REFERENCE LIMIT (URL) OF TROPONIN, DEFINED THE 99TH PERCENTILE OF cTnI DISTRIBUTION IN A REFERENCE POPULATION, HAS BEEN CONFIRMED THE DECISION THRESHOLD FOR OK DIAGNOSIS.Performed By: #### PTT, PT #### [facility] [address] [place] [address] Dr. Oh Khanna 40-29-0896CZL6.085 uIU/mLNormal0.358-3.740The [facility] on above:Performed By: #### HSTROPN, TSH, BNP, CMP #### [facility] [address] [place] [address] Dr. Oh Reid [facility] BELOWCincinnati Shriners HospitalComment on above: Result Comment: <0.34 UIU/ml HYPERTHYROID 0.34-5.60 UIU/ml EUTHYROID >5.60 UIU/ml HYPOTHYROIDPerformed By: #### HSTROPN, TSH, BNP, CMP #### [facility] [address] [place] [address] Dr. Oh TrotterXR ABD FLAT UP_PA German 99-14-6812TQ ABD FLAT UP_PA CHEXAMINATION: XR ABD FLAT [...] Electronically authenticated by: OTTO POLANCO Date: 2021-09-15 19:35[facility] HospitalXR CHEST 1 Von 88-79-5746VI CHEST 1 VCXR HISTORY: Shortness of breath. [...] Electronically authenticated by: ELIZABETH TURNER Date: 2021-09-06 23:38[facility] Vital Signs Date TimeVital SignValuePerforming AwdinyzkwIfdjxpzt24-21-8043 03:47-0400 Diastolic blood xkixxsaa74 mm[Hg]Nidal Choujaa DO Work Phone: [phone] [place], [place] [address]10-05-2025 03:47-0400 Heart rate88 /minNidal Choujaa DO Work Phone: [phone]10-05-2025 03:47-0400 Respiratory rate14 /minNidal Choujaa DO Work Phone: [phone]10-05-2025 03:47-0400 SaO2% (BldA) [Mass fraction]97 %Nidal Choujaa DO Work Phone: [phone]10-05-2025 03:47-0400 Systolic blood uimytwey003 mm[Hg]Nidal Choujaa DO Work Phone: [phone] [place], [place] [address]10-05-2025 00:47-0400 Body wkipugvtdkz26.7 [degF]Nidal Choujaa DO Work Phone: [phone]10-05-2025 00:46-0400 Body xkyxns224.96 cmNidal Choujaa DO Work Phone: [phone]10-05-2025 00:46-0400 Body binrgp542.9 kgNidal Choujaa DO Work Phone: [facility]2024 15:26-0400 Blood Pressure LocationMichael NILL 036-0674Gdkpak-Tfgeg General Surgery Txxhxulr06-54-3106 15:26-0400Diastolic blood nitymahs45 mm[Hg]Lucy NILL 250-6232Ofzyih-Zzznf General Surgery Aaffkkbb87-29-3315 15:26-0400Heart rate80 /minMichael NILL 812-3044Xwkhee-XjzwzWilson Health2024 15:26-0400Respiratory rate16 /minMichael NILL [phone]-ZzzaaWilson Health2024 15:26-0400Systolic blood kfdwugyb025 mm[Hg]Lucy NILL [phone]-QtvpcWilson Health Encounters Encounter DateEncounter TypeCare ProviderFacilityStart: 02-04-2025 End: 71-94-4912Vabfgfcpp department patient visitNidal Choreidjaa DO Work Phone: [phone]-Assvcmodr Room Work Phone: Start: 03-14-2024 End: 44-30-5955mqpoqyjzspZSSINOCSumma Health Akron Campustart: 12-37-5820wdgergqrptREIENMEPX EMERITARiverview Health Institutetart: 02-29-2024 End: 29-58-1210uhbpqmrmygFUJJZEUDetwiler Memorial Hospitaltart: 02-23-2024 End: 47-09-0695qjjjwjhzobHOSWLLCDetwiler Memorial Hospitaltart: 12-21-2023 End: 04-66-4554cirhlsacwlTeryeln R NILLFacility:[facility] Centertart: 12-21-2023 End: 28-31-8399Eqrqqly encounter procedureMichael R NILL [phone]-Tzkzs [facility] [place] Start: 08-09-2022 End: 93-15-9752idaaesszvsIUKMRM CRAMERFacility:P6Owxfl: 07-28-2022 End: 16-40-4358rstbxrfzfnUKJRZB CRAMERFacility:Z7Sjccq: 06-24-2022 End: 01-55-6204cfmxnybgktWO LUCY PAN .Facility:K0Kulbf: 05-23-2022 End: 85-24-7571bguwidggasQAZRGT CRAMERFacility:G4Rqyts: 05-11-2022 End: 28-52-7687viopopvseaJGXAUX CRAMERFacility:C2Ixfoa: 05-02-2022 End: 15-05-0043jkgsbgtsisLKDFBW CRAMERFacility:T6Xmbqi: 03-30-2022 End: 02-80-1389aqbyqgoevmCI REGGIE ANDREINABRENDA .Facility:F9Idfpx: 03-06-2022 End: 74-24-0150jdrqjebxweWO REGGIE BUTLER .Facility:S0Nrktn: 11-01-2021 End: 06-09-5339cxhuwzowrmOXXDB PARKERFacility:F1Fowkt: 10-16-2021 End: 51-31-0054jzhxyfwziaTMZEXT ANTONI .Facility:Y6Siadf: 09-15-2021 End: 65-31-3261hbjtncenkvUX NONE LISTED REQUESTFacility:A1Kzidk: 09-11-2021 End: 70-27-6611miackakoljCGJUGKY YAROSHFacility:D5Zgyfr: 09-07-2021 End: 18-74-5661wdyjnbltpvKC SUKUMAR NAIRFacility:H1 Procedures DateProcedureProcedure DetailPerforming ClinicianStart: 10-18-1313Lyvpvxckxwu Lucy PAN Start: 54-15-2987Tblpanw ablation using fluoroscopy guidanceMichael NILL CholecystectomyMichael NILL Plan of Treatment DateCare ActivityDetailAuthorStart: 73-70-1682Pwzpcaag identified in Blood by CultureBlood CultureKindred Hospital Daytontart: 70-21-8913HkpevetknKindred Hospital Daytontart: 80-94-3495PQ Head WO contrastKindred Hospital Daytontart: 22-01-9954AY of head without contrastCT head stroke alert wo [facility] - Andersontart: 51-59-4175Mrnxvztolzhp consultation with patientProtestant HospitalPatient Education Weakness - ED discharge instructionsWayne Healthcare [facility] Ctr Work Phone: Patient referralWayne Healthcare Main Campus Ctr Work Phone: Immunizations Immunization DateImmunizationNotesCare ProviderFacilityNEGATED: Highlighted row has not occurred!48-52-5579nfkquikcj virus vaccine, unspecified formulation Lucy PAN 134-9363Wihwqh-Lwxle General Surgery [facility] DatePayer CategoryPayerPolicy [id number] [id number] 2.0.1.877091.3.57[id number] 2..1.461201.3.579.2.93868-49-5928Ckaexok2220002 2.0.1.872864.3.579.2.78272-15-3035Cflhdvl0826180 2.0.1.445401.3.579.2.93838-95-8054Mulyjfa0282674 2.0.1.901539.3.579.2.09650-21-4685Thhabei0653165 2.0.1.188929.3.579.2.28508-24-9986Mfqkyvh3357007 2.840.1.704197.3.579.2.54795-16-2243Qsosgwc4424032 2.840.1.626630.3.579.2.32318-14-0728Cmddort4948704 2..840.1.649956.3.579.2.30450-15-5727Hoxjxij1740473 2.16.840.1.513858.3.579.2.13158-12-8005Nmszcyp6325609 2..0.1.231636.3.579.2.13281-32-0095Mfbxouc4180740 2..0.1.450461.3.579.[id number] 2..0.1.609893.3.57[id number] Social History DateTypeDetailFacilityStart: 68-83-6953Phkqzrx smoking statusHeavy tobacco smoker (finding)[facility] HospitalueTobacco smoking statusNever [facility] BellevueSex Assigned At [facility] DaytonTobacco smoking status NHISUnknown if ever smokedSelect Medical Specialty [facility] Work Phone: SexMale (finding)[facility] Start: 12-90-8864Yoz Assigned At [facility] Functional Status FhkmTmjmabuxsiRwekpxBzuoaghd76-17-8245Siebuubysh StatusN/AFLancaster [facility] Hospital Clinical Notes 06-24-2022 to 03-14-2024 Note Date & GpbhFooyWlgnnmdc36-01-7563 NoteSubjective Patient ID: Chuck Packer is a [...] the past 36 hour(s)). No follow-ups on file.[facility]10-29-2024 NotePatient: Chuck Packer Procedure Summary Date: 02/29/24 Room / Location: [facility] OPERATING ROOM 02 / [facility] Operating Room Anesthesia Start: 0756 [...] PACU per anesthesia protocol. No notable events documented.[facility]10-29-2024 Note Airway Date/Time: 02/29/2024 8:07 AM Urgency: elective General Information and Staff Patient location during procedure: OR Anesthesiologist: Neil Song MD Resident/TRIM ATTACHER/CAA: Facundo Rudolph MD Performed: resident/TRIM ATTACHER/CAA Indications and Patient Condition Indications for airway [...] approach: 1 Number of other approaches attempted: 0UnPremier Health 02-28-2024 NotePatient: Chuck Packer Procedure Information Date/Time: 02/29/24 0730 Procedures: EXAM UNDER ANESTHESIA, HEMORRHOIDECTOMY, DEBRIDMENT OF ANAL FISSURE Location: [facility] OPERATING ROOM 02 / [facility] Operating Room Surgeons: Urbano Rodriguez MD Relevant Problems Cardio (+) Migraines (+) Oshms-Ekwllylcy-Btdhc syndrome GI (+) GERD (gastroesophageal reflux disease) [...] Depression GERD (gastroesophageal reflux disease) Morbid Obesity Nudad-Dlifbzvfp-Msgml syndrome, treated with ablation as teenager, without [...] discussed with attending and resident. 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 Do not wear perfume, make-up, nail bengali, or lotions on the day of your [...] need to make any changes, please call [phone]. Notify your surgeon if you develop any illness such as a cold, cough, fever, sore throat or vomiting between now and your surgery. Thank you for entrusting us with your care. [facility] Surgical Services TeamUniversity Hospitals Portage Medical Center10-23-2024 Note Subjective Patient ID: Chuck Packer is [...] the past 36 hour(s)). No follow-ups on file.[facility]02-22-2023 Note OPERATIVE NOTE OPERATION DATE: 06/24/2022 PREOPERATIVE [...] room in good condition. CC: Leighann Soriano CNPPromedica Defiance Regional HospitalEvaluation + Plan note No data available for this section [facility] Evaluation noteNo assessment information available [facility] Work Phone: Hospital Discharge instructions No data available for this section [facility] Discharge instructions Additional Instructions follow up with your doctor return if worseFirAdena Regional [facility] Work Phone: Progress note No data available for this section [facility] Reason for referral (narrative)No reason for referral information availableSelect Medical Specialty Hospital [facility] Work Phone: Summary Purpose Family History No [...] section and content) DATE CREATED AUTHOR 08/11/2022 [facility] DATE CREATED AUTHOR AUTHOR'S ORGANIZ ATION 12/27/2023 [facility] DATE CREATED AUTHOR AUTHOR'S ORGANIZ ATION 03/16/2024 [facility] DATE CREATED AUTHOR AUTHOR'S ORGANIZ ATION 02/10/2025 [facility] Patient Care team informatio n [...] BASED ON THE PRIMARY CLINICAL RECORDS. [facility] provides no warranty or guarantee of the accuracy or completeness of information in this document.
--- OUTSIDE RECORDS SUMMARY | 2025-04-01 11:41 | XMS_ITS | Patient Health Record ---
Author Organization [facility] [place] Address [address] [place] [address] Care Team Providers Care Rail Specialist Name Role Phone Leighann Soriano Primary Care Provider Martínez Vail Unavailable [phone] Allergies Allergen (clinical drug ingredient) Drug/Non Drug Allergy documented on EMR Reaction Allergy Type Onset Date Status Information temporarily unavailable Erythromycin Base hive s Drug Allergy ActiveInformation temporarily unavailablePenicillin V PotassiumhivesDrug Allergy Active Results Component Value Reference Range Notes CBC AUTO DIFF Reviewed date:08/06/2024 09:47:04 PM Interpretation: Performing Lab: Notes/Report: [facility] , White Blood Count 7.4 4.0-11.0 10 3/uL Red Blood Count4.934.70-6.10 10 6/hJKplryjgrmd82.014.0-18.0 g/hTCsewcbxqcm68.1 42.0-54.0 %Mean Corpuscular Qygkkx78.480.0-94.0 fLMean Corpuscular Hemoglobin 30.425.9-34.0 pgMean Corpuscular HGB Conc35.629.9-35.2 g/dLRed Cell Distribution Width12.611.0-15.0 %Platelet Xlbkx924083-267 10 3/uLMean Platelet Volume9.69.5- 13.5 fLNeutrophils Percent Auto69.943.0-75.0 %Lymphocytes Percent Auto23.820.5- 60.0 %Monocytes Percent Auto5.41.7-12.0 %Eosinophils Percent Auto0.30.9-7.0 % Basophils Percent Auto0.30.2-2.0 %Immature Granulocytes Pct Auto0.30.0-0.5 % Neutrophils Absolute Auto5.21.4-6.5 10 3/uLLymphocytes Absolute Auto1.81.2-3.8 10 3/uLMonocytes Absolute Auto0.40.3-0.8 10 3/uLEosinophils Absolute Auto0.00.0- 0.7 10 3/uLBasophils Absolute Auto0.00.0-0.1 10 3/uLImmature Granulocytes Abs Auto0.020.00-0.03 10 3/uLPerforming Lab:see note - [facility] LB PROF CHEM 8 (BAS METB) Reviewed date:08/06/2024 09:47:04 PM Interpretation: Performing Lab: Notes/Report: [facility] ,Fmigle161826-712 mmol/LPotassium4.03.5-5.1 mmol/SPvfgwrdn98505-394 mmol/LCarbon Fmkvguu84.321.0-32.0 mmol/LAnion Gap12.3Qpkviot43417-322 mg/dLBlood Urea Zetrnajw04.07.0-18.0 mg/dLCreatinine1.100.70-1.30 mg/dLEstimated GFR ( Anupama>60>=60 mL/min/1.73m 2Estimated GFR (Non- Tia>60>=60 mL/min/1.73m 2BUN Creatinine Ratio11.4Fakvszb0.98.5-10.1 mg/dLPerforming Lab:see noteML - [facility] LBECG 12 lead Reviewed date:08/06/2024 09:47:04 PM Interpretation: Performing Lab: Notes/Report: Source Facility: [facility]-[address] [place] [address] [place] [address] Electrocardiograph Report Signed Patient: CHUCK PACKER MR#: [id number] : 1985 Acct:[id number] Age/Sex: 38 / M ADM Date: 07/30/24 Loc: ER Attending Dr: Ordering Physician: Leyda Barrientos M.D. 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 Measurements Intervals [place] Rate: 95 P: 44 MO: 120 QRS: 15 QRSD: 76 T: -5 [...] FOOTE Signed By: 07/30/242019 DD/ 11 TD/TT: Fiber Optic Splicer:CBC AUTO DIFF Reviewed date:01/18/2025 10:48:48 AM Interpretation: Performing Lab: Notes/Report: [facility] ,White Blood Count8.44.0-11.0 10 3/uLRed Blood Count5.214.70-6.10 10 6/uL Xuddulhttv71.714.0-18.0 g/zVLzsctpaovj56.742.0-54.0 %Mean Corpuscular Fpgmma88.9 80.0-94.0 fLMean Corpuscular Aoxqeepcwd31.125.9-34.0 pgMean Corpuscular HGB Conc 35.929.9-35.2 g/dLRed Cell Distribution Width11.911.0-15.0 %Platelet Adzwc324 150-450 10 3/uLMean Platelet Volume9.89.5-13.5 fLNeutrophils Percent Auto63.7 43.0-75.0 %Lymphocytes Percent Auto30.520.5-60.0 %Monocytes Percent Auto5.31.7- 12.0 %Eosinophils Percent Auto0.20.9-7.0 %Basophils Percent Auto0.10.2-2.0 % Immature Granulocytes Pct Auto0.20.0-0.5 %Neutrophils Absolute Auto5.41.4-6.5 10 3/uLLymphocytes Absolute Auto2.61.2-3.8 10 3/uLMonocytes Absolute Auto0.50.3-0.8 10 3/uLEosinophils Absolute Auto0.00.0-0.7 10 3/uLBasophils Absolute Auto0.00.0- 0.1 10 3/uLImmature Granulocytes Abs Auto0.020.00-0.03 10 3/uLPerforming Lab:see noteML - [facility] LBD-DIMER Reviewed date:01/18/2025 10:48:48 AM Interpretation: Performing Lab: Notes/Report: [facility] ,D Dimer0.20<=0.59 mg/L FEU Increases in [...] and generalized hospitalization. Performing Lab:see noteML - [facility] LBDRUG SCREEN RAPID (URINE) Reviewed date:01/18/2025 10:48:48 AM Interpretation: Performing Lab: Notes/Report: [facility] ,Cannabinoid Screen UrinePOSITIVENEGATIVEPhencyclidine Screen UrineNEGATIVE NEGATIVECocaine [...] Antidepressants): 300 ng/mL Performing Lab:see noteML - [facility] LBPROF CHEM 8 (BAS METB) Reviewed date:01/18/2025 10:48:48 AM Interpretation: Performing Lab: Notes/Report: [facility] ,Hogaoo076187-383 mmol/LPotassium4.03.5-5.1 mmol/DHbastfga57717-961 mmol/LCarbon Mytngsy56.221.0-32.0 mmol/LAnion Gap12.7Uddoabd48741-480 mg/dLBlood Urea Mcouutgu89.07.0-18.0 mg/dLCreatinine1.070.70-1.30 mg/dLEstimated GFR ( Anupama>60>=60 mL/min/1.73m 2Estimated GFR (Non- Tia>60>=60 mL/min/1.73m 2BUN Creatinine Ratio15.3Fcsdxyb2.08.5-10.1 mg/dLPerforming Lab:see noteML - [facility] LBTroponin I High Sensitivity Reviewed date:01/18/2025 10:48:48 AM Interpretation: Performing Lab: Notes/Report: [facility] ,Troponin I High Sensitivity<4.04.0-76.1 pg/mL CUT-OFF POINTS HAVE BEEN ESTABLISHED BASED ON THE FOURTH UNIVERSAL DEFINITION OF MYOCARDIAL INFARCTION. THE UPPER REFERENCE LIMIT (URL) OF TROPONIN, DEFINED THE 99TH PERCENTILE OF cTnI DISTRIBUTION IN A REFERENCE POPULATION, HAS BEEN CONFIRMED THE DECISION THRESHOLD FOR ME DIAGNOSIS. 99TH PERCENTILE = 76.2 PG/ML NOTE: HIGH-SENSITIVITY TROPONIN ASSAY IS NOT INTENDED TO BE USED IN ISOLATION BUT SHOULD BE INTERPRETED IN CONJUNCTION WITH OTHER DIAGNOSTIC AND CLINICAL INFORMATION. Performing Lab:see noteML - [facility] POCQPO-LoM-0 Ag* Reviewed date:01/18/2025 10:48:48 AM Interpretation: Performing Lab: Notes/Report: [facility] ,SARS-CoV-2 AgNEGATIVENEGATIVE This test has not [...] revoked sooner. Performing Lab:see noteML - [facility] LBECG 12 lead Reviewed date:01/18/2025 10:48:48 AM Interpretation: Performing Lab: Notes/Report: Source Facility: [facility]-[address] [place] [address] [place] [address] Electrocardiograph Report Signed Patient: CHUCK PACKER MR#: [id number] : 1985 Acct:[id number] Age/Sex: 39 / M ADM Date: 01/17/25 Loc: ER Attending Dr: Ordering Physician: Kacie Rodriguez Date of Service: 01/17/25 Procedure(s): ECG 12 lead Accession Number(s): [id number] cc: [facility] Test Date: 2025-01-17 Pat Name: CHUCK PACKER Department: Room: - 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 Measurements Intervals [place] Rate: 94 P: 54 MO: 130 QRS: 44 QRSD: 74 T: 49 QT: 342 QTc: 394 Interpretive Statements [address] elevation, probably early repolarization 9130 borderline ECG Compared to ECG 07/30/2024 14:12:13 ST (T wave) deviation now present Early repolarization now present Left ventricular hypertrophy no longer present Electronically Signed On 01-17-2025 17:53:50 EDT by JITENDRA FOOTE M.D. Dictated By: JITENDRA FOOTE Signed By: 01/17/25 2590 DD/ 0149 TD/TT: Fiber Optic Splicer:Troponin I High Sensitivity Reviewed date:01/18/2025 10:48:48 AM Interpretation: Performing Lab: Notes/Report: [facility] ,Troponin I High Sensitivity4.24.0-76.1 pg/mL CUT-OFF POINTS HAVE BEEN ESTABLISHED BASED ON THE FOURTH UNIVERSAL DEFINITION OF MYOCARDIAL INFARCTION. THE UPPER REFERENCE LIMIT (URL) OF TROPONIN, DEFINED THE 99TH PERCENTILE OF cTnI DISTRIBUTION IN A REFERENCE POPULATION, HAS BEEN CONFIRMED THE DECISION THRESHOLD FOR ME DIAGNOSIS. 99TH PERCENTILE = 76.2 PG/ML NOTE: HIGH-SENSITIVITY TROPONIN ASSAY IS NOT INTENDED TO BE USED IN ISOLATION BUT SHOULD BE INTERPRETED IN CONJUNCTION WITH OTHER DIAGNOSTIC AND CLINICAL INFORMATION. Performing Lab:see noteML - [facility] LBCBC AUTO DIFF Reviewed date:03/19/2025 10:38:37 AM Interpretation: Performing Lab: Notes/Report: [facility] ,White Blood Count7.14.0-11.0 10 3/uLRed Blood Count5.474.70-6.10 10 6/uL Egqprjdsky57.614.0-18.0 g/jZUuxpksajfi92.142.0-54.0 %Mean Corpuscular Jjevkm06.3 80.0-94.0 fLMean Corpuscular Ulmnuvmlqb64.325.9-34.0 pgMean Corpuscular HGB Conc 36.029.9-35.2 g/dLRed Cell Distribution Width12.111.0-15.0 %Platelet Gfkgn034 150-450 10 3/uLMean Platelet Iplctp96.19.5-13.5 fLNeutrophils Percent Auto58.3 43.0-75.0 %Lymphocytes Percent Auto35.320.5-60.0 %Monocytes Percent Auto5.61.7- 12.0 %Eosinophils Percent Auto0.40.9-7.0 %Basophils Percent Auto0.10.2-2.0 % Immature Granulocytes Pct Auto0.30.0-0.5 %Neutrophils Absolute Auto4.11.4-6.5 10 3/uLLymphocytes Absolute Auto2.51.2-3.8 10 3/uLMonocytes Absolute Auto0.40.3-0.8 10 3/uLEosinophils Absolute Auto0.00.0-0.7 10 3/uLBasophils Absolute Auto0.00.0- 0.1 10 3/uLImmature Granulocytes Abs Auto0.020.00-0.03 10 3/uLPerforming Lab:see noteML - [facility] LBDRUG SCREEN RAPID (URINE) Reviewed date:03/19/2025 10:38:37 AM Interpretation: Performing Lab: Notes/Report: [facility] ,Cannabinoid Screen UrinePOSITIVENEGATIVEPhencyclidine Screen UrineNEGATIVE NEGATIVECocaine [...] 300 ng/mL Performing Lab:see noteML - [facility] LBINFLUENZA A AND B AG Reviewed date:03/19/2025 10:38:37 AM Interpretation: Performing Lab: Notes/Report: [facility] ,Influenza Virus A AntigenNegative Negative for [...] the test. Performing Lab:see noteML - [facility] LBLIPASE Reviewed date:03/19/2025 10:38:37 AM Interpretation: Performing Lab: Notes/Report: [facility] ,Owtmyi30.016.0-77.0 U/LPerforming Lab:see noteML - [facility] LBPROF 14(COMP METB) Reviewed date:03/19/2025 10:38:37 AM Interpretation: Performing Lab: Notes/Report: [facility] ,Jkhflo585170-226 mmol/LPotassium3.93.5-5.1 mmol/EEzjjgpgp63026-501 mmol/LCarbon Papzzow42.321.0-32.0 mmol/LAnion Gap13.4Vefzxqy92189-188 mg/dLBlood Urea Ikaqjzdt18.07.0-18.0 mg/dLCreatinine1.030.70-1.30 mg/dLEstimated GFR ( Anupama>60>=60 mL/min/1.73m 2Estimated GFR (Non- Tia>60>=60 mL/min/1.73m 2BUN Creatinine Ratio13.4Mcgklqz9.38.5-10.1 mg/dLBilirubin Total0.70.2-1.0 mg/dL Aspartate Amino Jbbsqdaeuzo2705-00 U/LAlanine Rinawitipufseogp7331-65 U/L Alkaline Ysijrqflajy9470-308 U/LTotal Protein8.66.4-8.2 g/dLAlbumin Level3.93.4- 5.0 g/dLGlobulin4.7Albumin Globulin Ratio0.8Performing Lab:see noteML - [facility] LBTroponin I High Sensitivity Reviewed date:03/19/2025 10:38:37 AM Interpretation: Performing Lab: Notes/Report: [facility] ,Troponin I High Sensitivity5.34.0-76.1 pg/mL CUT-OFF POINTS HAVE BEEN ESTABLISHED BASED ON THE FOURTH UNIVERSAL DEFINITION OF MYOCARDIAL INFARCTION. THE UPPER REFERENCE LIMIT (URL) OF TROPONIN, DEFINED THE 99TH PERCENTILE OF cTnI DISTRIBUTION IN A REFERENCE POPULATION, HAS BEEN CONFIRMED THE DECISION THRESHOLD FOR ME DIAGNOSIS. 99TH PERCENTILE = 76.2 PG/ML NOTE: HIGH-SENSITIVITY TROPONIN ASSAY IS NOT INTENDED TO BE USED IN ISOLATION BUT SHOULD BE INTERPRETED IN CONJUNCTION WITH OTHER DIAGNOSTIC AND CLINICAL INFORMATION. Performing Lab:see noteML - [facility] KLENZD-GaR-5 Ag* Reviewed date:03/19/2025 10:38:37 AM Interpretation: Performing Lab: Notes/Report: [facility] ,SARS-CoV-2 AgNEGATIVENEGATIVE This test has not [...] revoked sooner. Performing Lab:see noteML - [facility] LBUA Micro, reflex to culture Reviewed date:03/19/2025 10:38:37 AM Interpretation: Performing Lab: Notes/Report: [facility] ,Color UrineYELLOWYELLOWClarity UrineCLEARCLEARSpecific [place] Urine1.025 1.005-1.025pH Urine6.05.0-9.0Protein UrineTRACENEG/TRACE mg/dLGlucose Urine UA NEGATIVENEGATIVE mg/dLBilirubin UrineNEGATIVENEGATIVEKetones UrineTRACENEGATIVE mg/dLBlood UrineSMALLNEGATIVENitrite UrineNEGATIVENEGATIVEUrobilinogen Urine0.2 0.2-1.0 EU/dLLeukocyte Esterase UrineNEGATIVENEGATIVEWBC UrineNONE SEENNONE SEEN #/HPFRBC Urine0-20-2 #/HPFBacteria UrineTRACENONE SEEN #/HPFMucus UrineTRACENONE SEENSquamous Epithelial Cell UrineRARENONE/RARE #/LPFCrystals Seen?None SeenNone Seen #/HPFCast Seen?NONE SEENNONE SEEN #/LPFPerforming Lab:see noteML - [facility] LBECG 12 lead Reviewed date:03/19/2025 10:38:37 AM Interpretation: Performing Lab: Notes/Report: Source Facility: [place] [address] Electrocardiograph Report Signed Patient: CHUCK PACKER MR#: [id number] : 1985 Acct:[id number] Age/Sex: 39 / M ADM Date: Loc: ER Attending Dr: Ordering Physician: Jil Benitez Date of Service: 03/17/25 Procedure(s): ECG 12 lead Accession Number(s): [id number] cc: [facility] Test Date: 2025-03-17 Pat Name: CHUCK PACKER Department: Room: - 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 Measurements Intervals [place] Rate: 89 P: 44 MO: 138 QRS: 26 QRSD: 80 T: 46 QT: 334 QTc: 381 Interpretive Statements 1100 Sinus rhythm [address] elevation [address] Twave abnormality 9130 borderline ECG Compared to ECG 01/28/2025 12:24:48 No significant changes Electronically Signed On 03-17-2025 12:57:47 EST by JITENDRA FOOTE M.D. Dictated By: JITENDRA FOOTE Signed By: 03/17/25 1258 DD/ 1232 TD/TT: Fiber Optic Splicer:XR chest 2V Reviewed date:03/19/2025 10:38:37 AM Interpretation: Performing Lab: Notes/Report: Source Facility: [place] [address] XRay Report Signed Patient: CHUCK PACKER MR#: [id number] : 1985 Acct:[id number] Age/Sex: 39 / M ADM Date: Loc: ER Attending Dr: Ordering Physician: Jil Benitez Date of Service: 03/17/25 Procedure(s): XR chest 2V Accession Number(s): [id number] cc: LEIGHANN SORIANO ; Jil Benitez [place] [address] Patient Name: CHUCK PACKER MRN: [id number] date: 1985 Sex: M Assigned Patient Location: ER Current Patient Location: ER Accession/Order Number: [id number] Exam Date: 03/17/2025 13:00 Report Date: 03/17/2025 [...] Chavez M.D. 03/17/2025 1:46 PM Dictation Location: [place] [address] Electronically authenticated by: [id number] Y Date: 03/17/2025 13:46 Dictated By: Jil Chavez D.O. Signed By: 03/17/258 DD/ 45 TD/TT: Fiber Optic Splicer:CT head/brain wo con Reviewed date:03/19/2025 10:38:37 AM Interpretation: Performing Lab: Notes/Report: Source Facility: [place] [address] CT Scan Report Signed Patient: CHUCK PACKER MR#: [id number] : 1985 Acct:[id number] Age/Sex: 39 / M ADM Date: Loc: ER Attending Dr: Ordering Physician: Jil Benitez Date of Service: 03/17/25 Procedure(s): CT head/brain wo con Accession Number(s): [id number] cc: LEIGHANN SORIANO [place] [id number] Patient Name: CHUCK PACKER MRN: [id number] date: 1985 Sex: M Assigned Patient Location: ER Current Patient Location: ER Accession/Order Number: [id number] Exam Date: 03/17/2025 13:00 Report Date: 03/17/2025 [...] Chavez M.D. 03/17/2025 1:45 PM Dictation Location: [place] [address] Electronically authenticated by: [id number] Y Date: 03/17/2025 13:45 Dictated By: Jil Chavez D.O. Signed By: 03/17/25 1347 DD/ 1345 TD/TT: Fiber Optic Splicer:CBC AUTO DIFF Reviewed date:03/21/2025 08:53:55 PM Interpretation: Performing Lab: Notes/Report: [facility] ,White Blood Count6.94.0-11.0 10 3/uLRed Blood Count5.234.70-6.10 10 6/uL Pochyqfrsu02.914.0-18.0 g/pWRjkhwfshrt47.742.0-54.0 %Mean Corpuscular Iahxoy67.5 80.0-94.0 fLMean Corpuscular Faivfxrsqq22.425.9-34.0 pgMean Corpuscular HGB Conc 35.629.9-35.2 g/dLRed Cell Distribution Width12.111.0-15.0 %Platelet Hziln632 150-450 10 3/uLMean Platelet Kcwzoj70.29.5-13.5 fLNeutrophils Percent Auto63.3 43.0-75.0 %Lymphocytes Percent Auto30.820.5-60.0 %Monocytes Percent Auto4.91.7- 12.0 %Eosinophils Percent Auto0.60.9-7.0 %Basophils Percent Auto0.10.2-2.0 % Immature Granulocytes Pct Auto0.30.0-0.5 %Neutrophils Absolute Auto4.41.4-6.5 10 3/uLLymphocytes Absolute Auto2.11.2-3.8 10 3/uLMonocytes Absolute Auto0.30.3-0.8 10 3/uLEosinophils Absolute Auto0.00.0-0.7 10 3/uLBasophils Absolute Auto0.00.0- 0.1 10 3/uLImmature Granulocytes Abs Auto0.020.00-0.03 10 3/uLPerforming Lab:see noteML - [facility] LBDRUG SCREEN RAPID (URINE) Reviewed date:03/21/2025 08:53:55 PM Interpretation: Performing Lab: Notes/Report: [facility] ,Cannabinoid Screen UrinePOSITIVENEGATIVEPhencyclidine Screen UrineNEGATIVE NEGATIVECocaine [...] 300 ng/mL Performing Lab:see noteML - [facility] LBLIPASE Reviewed date:03/21/2025 08:53:56 PM Interpretation: Performing Lab: Notes/Report: [facility] ,Npekrc45.016.0-77.0 U/LPerforming Lab:see note - [facility] LBPROF 14(COMP METB) Reviewed date:03/21/2025 08:53:56 PM Interpretation: Performing Lab: Notes/Report: [facility] ,Wdxrho587252-958 mmol/LPotassium3.83.5-5.1 mmol/NZbcdzhow79285-447 mmol/LCarbon Nlqwohk57.321.0-32.0 mmol/LAnion Gap12.6Xtueuse30977-689 mg/dLBlood Urea Unvzisqd95.07.0-18.0 mg/dLCreatinine1.430.70-1.30 mg/dLEstimated GFR ( Anupama>60>=60 mL/min/1.73m 2Estimated GFR (Non- Ame56>=60 mL/min/1.73m 2 BUN Creatinine Ratio9.4Hbwezup1.78.5-10.1 mg/dLBilirubin Total0.50.2-1.0 mg/dL Aspartate Amino Ryfehkltcie7550-99 U/LAlanine Wlsegeqjjlpexfvu6980-15 U/L Alkaline Mclfndplhdg3870-005 U/LTotal Protein8.06.4-8.2 g/dLAlbumin Level3.53.4- 5.0 g/dLGlobulin4.5Albumin Globulin Ratio0.8Performing Lab:see noteML - [facility] LBTSH Reviewed date:03/21/2025 08:53:56 PM Interpretation: Performing Lab: Notes/Report: [facility] ,Thyroid Stimulating Hormone1.2350.358-3.740 uIU/mLPerforming Lab:see note - [facility] LBUA (CLEAN or CATCH) NEUROSURGICAL NURSE or MICRO IF IND. Reviewed date:03/21/2025 08:53:56 PM Interpretation: Performing Lab: Notes/Report: [facility] ,Color UrineYELLOWYELLOWClarity UrineCLEARCLEARSpecific [place] Urine1.025 1.005-1.025pH Urine6.05.0-9.0Protein UrineNEGATIVENEG/TRACE mg/dLGlucose Urine UA>=1000NEGATIVE mg/dLBilirubin UrineNEGATIVENEGATIVEKetones UrineTRACENEGATIVE mg/dLBlood UrineSMALLNEGATIVENitrite UrineNEGATIVENEGATIVEUrobilinogen Urine0.2 0.2-1.0 EU/dLLeukocyte Esterase UrineNEGATIVENEGATIVEUrine Microscopic Indicated YESPerforming Lab:see noteML - [facility] LBTroponin I High Sensitivity Reviewed date:03/21/2025 08:53:56 PM Interpretation: Performing Lab: Notes/Report: [facility] ,Troponin I High Sensitivity<4.04.0-76.1 pg/mL CUT-OFF POINTS HAVE BEEN ESTABLISHED BASED ON THE FOURTH UNIVERSAL DEFINITION OF MYOCARDIAL INFARCTION. THE UPPER REFERENCE LIMIT (URL) OF TROPONIN, DEFINED THE 99TH PERCENTILE OF cTnI DISTRIBUTION IN A REFERENCE POPULATION, HAS BEEN CONFIRMED THE DECISION THRESHOLD FOR ME DIAGNOSIS. 99TH PERCENTILE = 76.2 PG/ML NOTE: HIGH-SENSITIVITY TROPONIN ASSAY IS NOT INTENDED TO BE USED IN ISOLATION BUT SHOULD BE INTERPRETED IN CONJUNCTION WITH OTHER DIAGNOSTIC AND CLINICAL INFORMATION. Performing Lab:see note - [facility] LBECG 12 lead Reviewed date:03/27/2025 08:15:33 AM Interpretation: Performing Lab: Notes/Report: Source Facility: [facility]-[address] [place] [address] [place] [address] Electrocardiograph Report Signed Patient: CHUCK PACKER MR#: [id number] : 1985 Acct:[id number] Age/Sex: 39 / M ADM Date: 03/21/25 Loc: ER Attending Dr: Ordering Physician: Kacie Rodriguez Date of Service: 03/21/25 Procedure(s): ECG 12 lead Accession Number(s): [id number] cc: [facility] Test Date: 2025-03-21 Pat Name: CHUCK PACKER Department: Room: - 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 Measurements Intervals [place] Rate: 109 P: 58 MO: 120 QRS: 14 QRSD: 88 T: -59 QT: 318 QTc: 382 Interpretive Statements 1120 Sinus tachycardia [address] depression [address] [place] abnormality 9150 abnormal ECG Compared to ECG 03/17/2025 12:32:15 Sinus rhythm no longer present ST (T wave) deviation still present Electronically Signed On 03-22-2025 6:04:21 EST by JITENDRA FOOTE M.D. Dictated By: JITENDRA FOOTE Signed By: 03/22/25 0604 DD/ 1739 TD/TT: Fiber Optic Splicer:XR chest 1V Reviewed date:03/21/2025 08:53:56 PM Interpretation: Performing Lab: Notes/Report: Source Facility: [place] [address] XRay Report Signed Patient: CHUCK PACKER MR#: [id number] : 1985 Acct:[id number] Age/Sex: 39 / M ADM Date: Loc: ER Attending Dr: Ordering Physician: Kacie Rodriguez Date of Service: 03/21/25 Procedure(s): XR chest 1V Accession Number(s): [id number] cc: LEIGHANN SORIANO ; Kacie Rodriguez [place] [id number] Patient Name: CHUCK PACKER MRN: [id number] date: 1985 Sex: M Assigned Patient Location: ER Current Patient Location: ER Accession/Order Number: [id number] Exam Date: 03/21/2025 18:14 Report Date: 03/21/2025 [...] Chavez M.D. 03/21/2025 6:23 PM Dictation Location: [place] [address] Electronically authenticated by: [id number] Y Date: 03/21/2025 18:23 Dictated By: Jil Chavez D.O. Signed By: 03/21/251824 DD/ 22 TD/TT: Fiber Optic Splicer:XR chest 1V Reviewed date:01/29/2025 09:03:45 AM Interpretation: Performing Lab: Notes/Report: Source Facility: [place] [address] XRay Report Signed Patient: CHUCK PACKER MR#: [id number] : 1985 Acct:[id number] Age/Sex: 39 / M ADM Date: 01/28/25 Loc: ER Attending Dr: Ordering Physician: Leyda Barrientos M.D. Date of Service: 01/28/25 Procedure(s): XR chest 1V Accession Number(s): [id number] cc: LEIGHANN SORIANO ; Leyda Barrientos M.D. [place] [address] Patient Name: CHUCK PACKER MRN: [id number] date: 1985 Sex: M Assigned Patient Location: ED.MAIN Current Patient Location: ED.MAIN Accession/Order Number: [id number] Exam Date: 01/28/2025 13:33 Report Date: 01/28/2025 [...] Enamorado M.D. 01/28/2025 2:07 PM Dictation Location: [place] [address] Electronically authenticated by: [id number] Y Date: 01/28/2025 14:07 Dictated By: Antione Enamorado M.D. Signed By: 01/28/25 1410 DD/ 1407 TD/TT: Fiber Optic Splicer:ECG 12 lead Reviewed date:01/29/2025 03:35:15 PM Interpretation: Performing Lab: Notes/Report: Source Facility: [place] [address] [place] [address] Electrocardiograph Report Signed Patient: CHUCK PACKER MR#: [id number] : 1985 Acct:[id number] Age/Sex: 39 / M ADM Date: 01/28/25 Loc: ER Attending Dr: Ordering Physician: Leyda Barrientos M.D. 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 Signed By: 01/29/25 1514 DD/ 1224 TD/TT: [employer]:Troponin I High Sensitivity Reviewed date:01/29/2025 09:03:45 AM Interpretation: Performing Lab: Notes/Report: [facility] ,Troponin I High Sensitivity4.94.0-76.1 pg/mL CUT-OFF POINTS HAVE BEEN ESTABLISHED BASED ON THE FOURTH UNIVERSAL DEFINITION OF MYOCARDIAL INFARCTION. THE UPPER REFERENCE LIMIT (URL) OF TROPONIN, DEFINED THE 99TH PERCENTILE OF cTnI DISTRIBUTION IN A REFERENCE POPULATION, HAS BEEN CONFIRMED THE DECISION THRESHOLD FOR ME DIAGNOSIS. 99TH PERCENTILE = 76.2 PG/ML NOTE: HIGH-SENSITIVITY TROPONIN ASSAY IS NOT INTENDED TO BE USED IN ISOLATION BUT SHOULD BE INTERPRETED IN CONJUNCTION WITH OTHER DIAGNOSTIC AND CLINICAL INFORMATION. Performing Lab:see noteML - [facility] LBPROF CHEM 8 (BAS METB) Reviewed date:01/29/2025 09:03:45 AM Interpretation: Performing Lab: Notes/Report: [facility] ,Yvskut231118-553 mmol/LPotassium3.93.5-5.1 mmol/RJxxnastz91768-476 mmol/LCarbon Ramivwo72.021.0-32.0 mmol/LAnion Gap15.3Kyuppkj28233-483 mg/dLBlood Urea Wtkzctji78.07.0-18.0 mg/dLCreatinine0.940.70-1.30 mg/dLEstimated GFR ( Anupama>60>=60 mL/min/1.73m 2Estimated GFR (Non- Ita>60>=60 mL/min/1.73m 2BUN Creatinine Ratio13.7Cbeunmr1.18.5-10.1 mg/dLPerforming Lab:see noteML - [facility] LBD-DIMER Reviewed date:01/29/2025 09:03:45 AM Interpretation: Performing Lab: Notes/Report: [facility] ,D Dimer<0.19<=0.59 mg/L FEU Increases in [...] and generalized hospitalization. Performing Lab:see noteML - [facility] LBCBC AUTO DIFF Reviewed date:01/29/2025 09:03:45 AM Interpretation: Performing Lab: Notes/Report: [facility] ,White Blood Count7.74.0-11.0 10 3/uLRed Blood Count5.164.70-6.10 10 6/uL Frzjjzdtzx48.814.0-18.0 g/qRIjehfhzswn21.342.0-54.0 %Mean Corpuscular Ntzdut46.9 80.0-94.0 fLMean Corpuscular Agvbhpaqeg78.625.9-34.0 pgMean Corpuscular HGB Conc 36.529.9-35.2 g/dLRed Cell Distribution Width12.011.0-15.0 %Platelet Thyan934 150-450 10 3/uLMean Platelet Volume9.89.5-13.5 fLNeutrophils Percent Auto60.1 43.0-75.0 %Lymphocytes Percent Auto32.820.5-60.0 %Monocytes Percent Auto6.11.7- 12.0 %Eosinophils Percent Auto0.40.9-7.0 %Basophils Percent Auto0.30.2-2.0 % Immature Granulocytes Pct Auto0.30.0-0.5 %Neutrophils Absolute Auto4.61.4-6.5 10 3/uLLymphocytes Absolute Auto2.51.2-3.8 10 3/uLMonocytes Absolute Auto0.50.3-0.8 10 3/uLEosinophils Absolute Auto0.00.0-0.7 10 3/uLBasophils Absolute Auto0.00.0- 0.1 10 3/uLImmature Granulocytes Abs Auto0.020.00-0.03 10 3/uLPerforming Lab:see noteML - [facility] LBXR chest 1V Reviewed date:01/18/2025 10:48:48 AM Interpretation: Performing Lab: Notes/Report: Source Facility: [facility]-[address] [place] [address] [place] [address] XRay Report Signed Patient: CHUCK PACKER MR#: [id number] : 1985 Acct:[id number] Age/Sex: 39 / M ADM Date: 01/17/25 Loc: ER Attending Dr: Ordering Physician: Kacie Rodriguez Date of Service: 01/17/25 Procedure(s): XR chest 1V Accession Number(s): [id number] cc: LEIGHANN SORIANO ; Kacie Rodriguez [address] [address] Patient Name: CHUCK PACKER MRN: [id number] date: 1985 Sex: M Assigned Patient Location: ER Current Patient Location: ED.MAIN Accession/Order Number: [id number] Exam Date: 01/17/2025 14:02 Report Date: 01/17/2025 14:48 At the request of: KACIE RIZZO Procedure: XR chest 1V PA CHEST: CLINICAL HISTORY: Chest pain COMPARISON: 07/15/2024 Unremarkable cardiac mediastinal silhouette. Lungs clear. No effusion or pneumothorax. XR/XR chest 1V IMPRESSION: NEGATIVE ACUTE PLEURAL-PARENCHYMAL DISEASE. Impression dictated by: Chandler Fields M.D. 01/17/2025 2:48 PM Dictation Location: [place] [address] Electronically authenticated by: [id number] Y Date: 01/17/2025 14:48 Dictated By: Chandler Fields M.D. Signed By: 01/17/25 1450 DD/ 1448 TD/TT: Fiber Optic Splicer:ALISSON, Flu A+B IH Reviewed date:03/19/2025 10:38:37 AM Interpretation: Performing Lab: Notes/Report: COVIDnegFLU AnegFLU BnegControlposChlamydia/GC Amplification Reviewed date:03/27/2025 08:15:33 AM Interpretation: Performing Lab: Notes/Report: Urine [facility] ,Chlamydia trachomatis, NAANegativeNegativeNeisseria gonorrhoeae, NAANegative Negative Performed at: = - [facility] [address] [id number] Fuel Agent: Aav Max MD, Phone: [phone] Performing Lab:see noteLC - [facility] LB Reason For Referral No Information Medications [...] alcohol in the p ast year? No Scoqzw4FwyhvhatwnzqbeCjzivexcFQFAQ-M (Standard) Question Answer Notes Did you have a drink containing alcohol in the p ast year? No Stcsoa2VkpdsjacnrylglXhfkhxea Problems Problem Type SNOMED Code ICD Code Onset Dates Problem Status W/U Status Risk Notes Problem Information temporarily unavailable Overw eight (E66.3) ActiveconfirmedProblemInformation temporarily unavailableGeneralized anxiety disorder (F41.1)ActiveconfirmedProblemInformation temporarily unavailable Depression (F32.9)ActiveconfirmedProblemInformation temporarily unavailable Erectile dysfunction (N52.9)ActiveconfirmedProblemInformation temporarily unavailableGERD without esophagitis (K21.9)ActiveconfirmedProblemInformation temporarily unavailableMigraine (G43.909)ActiveconfirmedProblemInformation temporarily unavailableType 2 diabetes mellitus (E11.9)ActiveconfirmedProblem Information temporarily unavailableBronchitis (J40)ActiveconfirmedProblem Information temporarily unavailableRash (R21)ActiveconfirmedProblemInformation temporarily unavailableUpper respiratory infection (J06.9)ActiveconfirmedProblem Information temporarily unavailableShingles (B02.9)ActiveconfirmedProblem Information temporarily unavailableHemorrhoids (K64.9)ActiveconfirmedProblem Information temporarily unavailableCurrent smoker (F17.200)Activeconfirmed ProblemInformation temporarily unavailableAbdominal discomfort (R10.9)Active confirmedProblemInformation temporarily unavailablePanic attack (F41.0)Active confirmedProblemInformation temporarily unavailableBright red blood per rectum (K62.5)ActiveconfirmedProblemInformation temporarily unavailableRectal fissure (K60.2)ActiveconfirmedProblemInformation temporarily unavailableHeel pain, right (M79.671)ActiveconfirmedProblemInformation temporarily unavailableInsomnia disorder (G47.00)ActiveconfirmedProblemInformation temporarily unavailable Irritable bowel syndrome (IBS) (K58.9)ActiveconfirmedProblemInformation temporarily abapggikwvcIwjub-Haesxsvim-Rjfwe (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)Active confirmedProblemInformation temporarily unavailableInsomnia associated with menopause (N95.1)Activeconfirmed Vital Signs Heart Rate 109 /min 06/15/2024 Kvjraeaecgk81.4 degrees Puypeizlvq16/04/3967Zmfbkvth98 %06/15/2024lood pressure vpfztejtd27 mm Hg08/04/20249210Kbvbsi75 in08/04/2024lood pressure rppohlds016 mm Hg 08/04/20242316Txltet520.2 lbs08/04/2024BMI39.31 kg/m208/04/2024 Encounters Encounter Location Date Provider Diagnosis [address] [address] 06/01/2024 Leighann Soriano [address] [address] 03/27/2025Pamela Cramer[address] [place] [address]/Pamela CramerInsomnia disorder G47.00 ; Rash and other nonspecific skin eruption R21 and Depression F32.9B[address] [place] [address]/Pamela CramerGastroenteritis K52.[address] [place] [address]/Pamela CramerBody aches R52 ; Gastroenteritis K52.9 [address] [place] [address]/10/2024Doug HoyCough R05.9 and Acute bronchitis, unspecified organism J20.[address] [place] [address]/08/2024Doug HoyAcute non-recurrent sinusitis, unspecified location J01.90 and Nasal congestion R09.[address] [place] [address]/Pamela Maru Bronchitis N[address] [address]/Doug HoyGastroenteritis K52.9 Assessments Encounter Date Diagnosis (ICD Code) Assessment [...] worsen 07/17/2024ronchitis (ICD-10 - J40)fu if not /20/2025Gastroenteritis (ICD-10 - K52.9)Get plenty of rest. Stay hydrated by sucking on ice chips or taking small sips of water. You can also try drinking clear soda, clear broths or noncaffeinated sports drinks. Stop eating solid foods for a few hours to let your stomach settle. East back into eating by eating bland, kkrx-gu-zwhtcr foods like crackers, toast, gelatin, bananas, rice and chicken. Try to avoid foods/substances including dairy products, caffeine, alcohol, nicotine and fatty or highly seasoned foods. Medications such as ibuprofen or tylenol can make your stomach more upset, so use sparingly if at all. Also avoid inio-cbd-qgjlclt anti-diarrheal medications because it can make it harder for your body to eliminate the virus.5Acute non-recurrent sinusitis, unspecified location (ICD-10 - J01.90)Rest and drink more liquids, especially water. You may use a humidifier or vaporizer to help keep the drainage moist. Nloy-wmi-mndifqo Nasal Saline may help the stuffy and runny nose. Use Ibuprofen and or Tylenol as needed for fever, chills, body aches or pain. Children 5 years old should not be given apol-eog-zvpdzzl cough and cold medications such as guaifenesin and dextromethorphan. If you're over age 5, you may try mlrx-jzq-svtujpd cold medications such as guaifenesin and dextromethorphan, [...] days08/04/2024Nasal congestion (ICD-10 - R09.81)07/14/2024Vomiting (ICD-10 - R11.10)06/08/2024ute bronchitis, unspecified organism (ICD-10 - J20.9)Rest and drink more liquids, especially water. You may use a humidifier or vaporizer to help keep the drainage moist. Zzdr-eqo-qtrqljm Nasal Saline may help the stuffy and runny nose. Use Ibuprofen and or Tylenol as needed for fever, chills, body aches or pain. Children 5 years old should not be given ngdd-crj-bbiufuz cough and cold medications such as guaifenesin and dextromethorphan. If you're over age 5, you may try alxk-gpw-ldcextc cold medications such as guaifenesin and dextromethorphan, [...] go to the emergency room or call [phone] (ICD-10 - F32.9) psych referral sheet given needs to re establish with psych will review meds with Dr Vail Plan Of Treatment Pending Test Test Name Order Date COVID-19, Flu A+B IH 07/14/2024 Next Appt Details Provider Name:Leighann Gresham Karen selam, 04/03/2025 09:30:00 AM, [address] [facility] [address], [place], [address], Insurance Providers Payer Name Payer Address Payer Phone Subscriber Number Group Number Insured Name Patient Relationship to Insured Coverage Start Date Coverage End Date [employer] [place] [employer] [address] [address] [place] [phone] [id number] Jagruti Packer - patient is the [id number] 2020 Medical (General) History Medical History History ICD Code Bronchitis J40 Heel pain, right M79.671 Hemorrhoids K64.9 Upper respiratory infection J06.9 Depression F32.9 Rash R21 Shingles B02.9 Migraine G43.909 Gastro-esophageal reflux disease K21.9 Bright red blood per rectum K62.5 Irritable bowel syndrome (IBS) K58.9 Panic attack F41.0 Tshbr-Qyhanpche-Ztwsm (WPW) syndrome I45 .6 Overweight E66.3 Abdominal discomfort R10.9 Generalized anxiety disorder F41.1 Current smoker F17.200
[2025-04-01 12:07] VITALS: BP 143/71
--- NOTE | 2025-04-01 12:11 | XR_ITS ---
The [address] [address] Patient Name: CHUCK PACKER MRN: [id number] date: 1985 Sex: M Assigned Patient Location: ER Current Patient Location: ER Accession/Order Number: [id number] Exam Date: 04/01/2025 12:20 Report Date: 04/01/2025 12:35 At the request of: LEYDA BARRIENTOS MD Procedure: XR abdomen 1V XR abdomen 1V 04/01/2025 12:25 PM SIGNS AND SYMPTOMS: Upper abdominal pain and epigastric pain, possible constipation PROTOCOL: Frontal radiographs of the abdomen and pelvis COMPARISON: 06/26/2023 FINDINGS: There is evidence of prior cholecystectomy. There is moderate amount stool throughout colon. There is no evidence of bowel obstruction. No radiographic evidence of fracture. The bony structures are within normal limits. XR/XR abdomen 1V IMPRESSION: No bowel obstruction or free air. There is a moderate amount of stool predominantly in the right hemicolon. Impression dictated by: Antione Enamorado M.D. 04/01/2025 12:35 PM Dictation Location: [place] [address] Electronically authenticated by: [id number] Y Date: 04/01/2025 12:35
--- NOTE | 2025-04-01 12:11 | ED.GENADUL1 ---
HPI HPI - General Adult General Chief complaint: Abdominal Pain Stated complaint: ABDOMINAL PAIN Time Seen by Provider: 04/01/25 12:06 Source: patient Mode of arrival: walk-in History of Present Illness HPI narrative: 39-year-old male presents for abdominal pain. It started about an hour ago. He states he has not had a bowel movement in many days, he is not sure how many. No trauma or fever. No vomiting or chest pain. Related Data Home Medications ?Medication ?Instructions ?Recorded ?Confirmed aspirin 81 mg tablet,delayed 81 mg PO DAILY 03/21/25 03/21/25 release (Ecotrin Low Strength) Previous Rx's ?Medication ?Instructions ?Recorded meclizine 25 mg chewable tablet 25 mg PO TID PRN dizziness or 03/17/25 (Antivert) vertigo #7 tabs metformin 500 mg tablet 500 mg PO DAILY #30 tabs 03/21/25 Allergies Allergy/AdvReac Type Severity Reaction Status Date / Time erythromycin base Allergy Intermediate Rash Verified 03/21/25 17:26 Penicillins Allergy Intermediate Rash Verified 03/21/25 17:26 Opioid HPI Opioid Management Most Recent Opioid Data: Last Pain Scale 7 03/21/25, 17:28 Ur Phencyclidine Scrn, (NEGATIVE) Negative 03/21/25, 17:37 Review of Systems ROS Narrative A ten point review of systems is negative except as noted above. PFSH PFSH Social History Smoking status: Current every day smoker Little interest or pleasure in doing things: not at all Feeling down, depressed, or hopeless: not at all Exam Narrative Exam Narrative: Nurses note and vital signs reviewed General:The patient appears uncomfortable. He is in no respiratory distress Skin:Warm, dry, no pallor noted.There is no rash noted. Head:Normocephalic, atraumatic Eye: Normal conjunctiva, no drainage Ears, Nose, Mouth, and Throat: oral mucosa is moist. Nares patent. Cardiovascular:Regular Rate and Rhythm Respiratory:Patient is in no distress, no accessory muscle use, lungs are clear to auscultation, no wheezing, rales or rhonchi Back:non-tender GI: No distention. Tenderness present across the upper abdomen Musculoskeletal: The patient has no evidence of calf tenderness, no pitting edema, symmetrical pulses noted bilaterally Neurological:A&O, normal speech Psychiatric:Cooperative Constitutional Vital Signs, click to edit/add: Last Vital Signs Temp 97.9 F 04/01/25 10:57 Pulse 94 H 04/01/25 10:57 Resp 18 04/01/25 10:57 BP 143/71 H 04/01/25 12:07 Pulse Ox 100 04/01/25 10:57 O2 Del Method Room Air 04/01/25 10:57 Course Vital Signs Vital signs: Vital Signs Temperature 97.9 F 04/01/25 10:57 Pulse Rate 94 H 04/01/25 10:57 Respiratory Rate 18 04/01/25 10:57 Blood Pressure 128/89 04/01/25 10:57 Pulse Oximetry 100 04/01/25 10:57 Oxygen Delivery Method Room Air 04/01/25 10:57 Temperature 97.9 F 04/01/25 10:57 Pulse Rate 94 H 04/01/25 10:57 Respiratory Rate 18 04/01/25 10:57 Blood Pressure 143/71 H 04/01/25 12:07 Pulse Oximetry 100 04/01/25 10:57 Oxygen Delivery Method Room Air 04/01/25 10:57 Medical Decision Making MDM Narrative Medical decision making narrative: Abdominal x-ray is consistent with constipation. He was given a bottle of magnesium citrate and recommended MiraLAX. Treatment diagnosis and follow-up were discussed with the patient. Differential Diagnosis Differential Diagnosis: Constipation, pancreatitis, colitis Imaging Data Abdominal x-ray: Radiologist's impression: ITS Impressions Abdomen X-Ray 04/01/25 12:11 IMPRESSION: No bowel obstruction or free air. There is a moderate amount of stool predominantly in the right hemicolon. Impression dictated by: Antione Enamorado M.D. 04/01/2025 12:35 PM Dictation Location: [place] [address] Electronically authenticated by: [id number] Y Date: 04/01/2025 12:35 Discharge Plan Discharge Chief Complaint: Abdominal Pain Clinical Impression: Constipation Patient Disposition: Home, Self-Care Time of Disposition Decision: 12:50 Condition: Good Mode of Transportation: Private Vehicle Prescriptions / Home Meds: No Action aspirin [Ecotrin Low Strength] 81 mg tablet,delayed release (DR/EC) 81 mg PO DAILY metformin 500 mg tablet 500 mg PO DAILY Qty: 30 0RF meclizine [Antivert] 25 mg tablet,chewable 25 mg PO TID PRN (Reason: dizziness or vertigo) Qty: 7 0RF Print Language: Colombian Instructions: Constipation (ED) Additional Instructions: Drink the magnesium citrate when you get home. Take MiraLAX on a daily basis. Referrals: MERNA SORIANO [Primary Care Provider, Family Practice] - 1 week
[2025-04-01] MEDS: MAGNESIUM CITRATE 296 ML SOLUTION PO (12:59)
== END 2025-04-01 13:05 | disposition home or self-care (01) ==
PROVIDERS: Emergency Provider Emergency Medicine; PCP Nurse Practitioner Family
DX: K59.00 Constipation, unspecified (principal); F17.200 Nicotine dependence, unspecified, uncomplicated
CPT/HCPCS: 74018; 99283

== ENCOUNTER 2025-04-11 11:53 | Emergency (ER) | payer SELFPAY ==
[2025-04-11 12:05] VITALS: BP 155/101; PULSE 95; TEMP 36.8; O2SAT 100; BMI 36.1
--- NOTE | 2025-04-11 12:14 | XR_ITS ---
The [place] [id number] Patient Name: CHUCK PACKER MRN: [id number] date: 1985 Sex: M Assigned Patient Location: ER Current Patient Location: ED.MAIN Accession/Order Number: [id number] Exam Date: 04/11/2025 12:34 Report Date: 04/11/2025 12:55 At the request of: LEYDA BARRIENTOS MD Procedure: XR chest 1V PORTABLE AP ERECT CHEST 1206 hours CLINICAL HISTORY: Weakness, dizziness and fatigue COMPARISON: 03/21/2025 The heart is within normal limits. There is no vascular congestion. No developing consolidation is noted. There is no sizable effusion or pneumothorax. The osseous structures are intact. XR/XR chest 1V IMPRESSION: NO ACUTE FINDINGS Impression dictated by: Almaz Luther M.D. 04/11/2025 12:55 PM Dictation Location: [place] [address] Electronically authenticated by: [id number] Y Date: 04/11/2025 12:55
--- NOTE | 2025-04-11 12:14 | ECG_ITS ---
The [facility] Test Date: 2025-04-11 Pat Name: CHUCK PACKER Department: Room: - Gender: Male Shirt Sewer: : 1985 Requested By: 1030 Order Number: [id number] Reading MD: JITENDRA FOOTE M.D. Measurements Intervals Herman Rate: 93 P: 42 ID: 124 QRS: 40 QRSD: 76 T: 49 QT: 318 QTc: 369 Interpretive Statements 1100 Sinus rhythm 4068 Nonspecific Twave abnormality 9130 borderline ECG Compared to ECG 03/21/2025 17:39:38 Sinus tachycardia no longer present ST (T wave) deviation no longer present Electronically Signed On 04-11-2025 14:21:09 EST by JITENDRA FOOTE M.D.
--- NOTE | 2025-04-11 12:15 | ED.GENADUL1 ---
HPI HPI - General Adult General Chief complaint: Weakness Stated complaint: WEAKNESS HEADACHE Time Seen by Provider: 04/11/25 12:07 Source: patient Mode of arrival: walk-in History of Present Illness HPI narrative: 39-year-old male presents because he states he feels weak and tired. He states he has been under a lot of stress recently and restarted his Prozac about a week ago. No fever or vomiting. He missed work and needs a work note. He does not complain of pain or fever. Related Data Home Medications ?Medication ?Instructions ?Recorded ?Confirmed fluoxetine 20 mg capsule 20 mg PO DAILY 04/11/25 04/11/25 Previous Rx's ?Medication ?Instructions ?Recorded meclizine 25 mg chewable tablet 25 mg PO TID PRN dizziness or 03/17/25 (Antivert) vertigo #7 tabs metformin 500 mg tablet 500 mg PO DAILY #30 tabs 03/21/25 Allergies Allergy/AdvReac Type Severity Reaction Status Date / Time erythromycin base Allergy Intermediate Rash Verified 04/11/25 12:04 Penicillins Allergy Intermediate Rash Verified 04/11/25 12:04 Opioid HPI Opioid Management Most Recent Opioid Data: Last Pain Scale 7 03/21/25, 17:28 Ur Phencyclidine Scrn, (NEGATIVE) Negative 03/21/25, 17:37 Review of Systems ROS Narrative A ten point review of systems is negative except as noted above. PFSH PFSH Social History Smoking status: Current every day smoker Little interest or pleasure in doing things: not at all Feeling down, depressed, or hopeless: not at all Exam Narrative Exam Narrative: Nurses note and vital signs reviewed General:The patient appears in no apparent distress. Patient is resting comfortably on cart. Skin:Warm, dry, no pallor noted.There is no rash noted. Head:Normocephalic, atraumatic Eye: Normal conjunctiva, no drainage Ears, Nose, Mouth, and Throat: oral mucosa is moist. Nares patent. Cardiovascular:Regular Rate and Rhythm Respiratory:Patient is in no distress, no accessory muscle use, lungs are clear to auscultation, no wheezing, rales or rhonchi Back:non-tender GI: Soft and nontender Musculoskeletal: The patient has no evidence of calf tenderness, no pitting edema, symmetrical pulses noted bilaterally Neurological:A&O, normal speech Psychiatric:Cooperative Constitutional Vital Signs, click to edit/add: Last Vital Signs Temp 98.2 F 04/11/25 12:05 Pulse 95 H 04/11/25 12:05 Resp 16 04/11/25 12:05 BP 155/101 H 04/11/25 12:05 Pulse Ox 100 04/11/25 12:05 O2 Del Method Room Air 04/11/25 12:05 Course Vital Signs Vital signs: Vital Signs Temperature 98.2 F 04/11/25 12:05 Pulse Rate 95 H 04/11/25 12:05 Respiratory Rate 16 04/11/25 12:05 Blood Pressure 155/101 H 04/11/25 12:05 Pulse Oximetry 100 04/11/25 12:05 Oxygen Delivery Method Room Air 04/11/25 12:05 Temperature 98.2 F 04/11/25 12:05 Pulse Rate 95 H 04/11/25 12:05 Respiratory Rate 16 04/11/25 12:05 Blood Pressure 155/101 H 04/11/25 12:05 Pulse Oximetry 100 04/11/25 12:05 Oxygen Delivery Method Room Air 04/11/25 12:05 Medical Decision Making MDM Narrative Medical decision making narrative: His workup is negative. I suspect that much of his symptomatology is due to anxiety and this was discussed with the patient. Treatment diagnosis and follow-up were discussed thoroughly and he was provided a work note. Differential Diagnosis Differential Diagnosis: Anemia, dehydration, anxiety Lab Data Lab results reviewed: Yes I reviewed the patient's lab results Labs: Lab Results 04/11/25 04/11/25 Range/Units 12:26 12:35 WBC 7.1 (4.0-11.0) 10^3/uL RBC 5.62 (4.70-6.10) 10^6/uL Hgb 17.1 (14.0-18.0) g/dL Hct 47.3 (42.0-54.0) % MCV 84.2 (80.0-94.0) fL MCH 30.4 (25.9-34.0) pg MCHC 36.2 H (29.9-35.2) g/dL RDW 12.0 (11.0-15.0) % Plt Count 235 (150-450) 10^3/uL MPV 9.8 (9.5-13.5) fL Neut % (Auto) 67.3 (43.0-75.0) % Lymph % (Auto) 26.9 (20.5-60.0) % [place] % (Auto) 5.0 (1.7-12.0) % Eos % (Auto) 0.3 L (0.9-7.0) % Baso % (Auto) 0.1 L (0.2-2.0) % Neut # (Auto) 4.8 (1.4-6.5) 10^3/uL Lymph # (Auto) 1.9 (1.2-3.8) 10^3/uL [place] # (Auto) 0.4 (0.3-0.8) 10^3/uL Eos # (Auto) 0.0 (0.0-0.7) 10^3/uL Baso # (Auto) 0.0 (0.0-0.1) 10^3/uL Abs Immat Gran (auto) 0.03 (0.00-0.03) 10^3/uL Imm/Tot Granulo (auto) 0.4 (0.0-0.5) % Sodium 138 (136-145) mmol/L Potassium 3.8 (3.5-5.1) mmol/L Chloride 103 (98-107) mmol/L Carbon Dioxide 23.9 (21.0-32.0) mmol/L Anion Gap 14.9 BUN 11.0 (7.0-18.0) mg/dL Creatinine 1.18 (0.70-1.30) mg/dL Est GFR ( Amer) >60 (>=60 mL/min/1.73m^2) Est GFR (Non-Af Amer) >60 (>=60 mL/min/1.73m^2) BUN/Creatinine Ratio 9.3 Glucose 152 H (74-106) mg/dL Calcium 9.3 (8.5-10.1) mg/dL Urine Color Yellow (YELLOW) Urine Clarity Clear (CLEAR) Urine pH 6.0 (5.0-9.0) Ur Specific [place] 1.025 (1.005-1.025) Urine Protein Trace (NEG/TRACE) mg/dL Urine Glucose (UA) Negative (NEGATIVE) mg/dL Urine Ketones Trace A (NEGATIVE) mg/dL Urine Occult Blood Small A (NEGATIVE) Urine Nitrite Negative (NEGATIVE) Urine Bilirubin Negative (NEGATIVE) Urine Urobilinogen 0.2 (0.2-1.0) EU/dL Ur Leukocyte Esterase Trace A (NEGATIVE) Urine RBC 0-2 (0-2) #/HPF Urine WBC 2-5 A (NONE SEEN) #/HPF Ur Squamous Epith Cells Rare (NONE/RARE) #/LPF Urine Crystals None seen (None Seen) #/HPF Urine Bacteria Moderate A (NONE SEEN) #/HPF Urine Casts Seen A (NONE SEEN) #/LPF Hyaline Casts Rare Urine Mucus Moderate A (NONE SEEN) Ur Culture Indicated? Yes-[facility] ECG Data Attestation: I personally reviewed and interpreted this ECG as follows: (EKG on my interpretation shows sinus rhythm with rate of 93 and no acute change) Discharge Plan Discharge Chief Complaint: Weakness Clinical Impression: Generalized weakness, Anxiety Patient Disposition: Home, Self-Care Time of Disposition Decision: 13:42 Condition: Good Mode of Transportation: Private Vehicle Prescriptions / Home Meds: No Action metformin 500 mg tablet 500 mg PO DAILY Qty: 30 0RF fluoxetine 20 mg capsule 20 mg PO DAILY meclizine [Antivert] 25 mg tablet,chewable 25 mg PO TID PRN (Reason: dizziness or vertigo) Qty: 7 0RF Print Language: Pashto Instructions: Weakness (ED), Anxiety (ED) Referrals: MERNA SORIANO [Primary Care Provider, Family Practice] - 1 week
[2025-04-11 12:29] VITALS: PULSE 97
--- OUTSIDE RECORDS SUMMARY | 2025-04-11 12:49 | XMS_ITS | CCD ---
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 [HPF]0-4 Mercy HealthLeukocytes [#/volume] corrected for nucleated erythrocytes in Blood by Automated counOrdered By: Herminio Davila on 02-04-2025 WBC corrected for nucl RBC Auto (Bld) [#/Vol]8.9 10*3/uL4.1-10.5FTriHealth McCullough-Hyde Memorial HospitalLeukocytes [#/volume] in Blood by Automated countOrdered By: Herminio Davila on 01-94-4475GLU (Bld) [#/Vol]8.9 10*3/uLNormal4.1-10.5 Mercy HealthComment on above:Performed By: #### CBC, PT, PTT, CMP, CK, HS TROP #### [facility] [address] [place] [address] USALymphocytes [#/volume] in Blood by Automated countOrdered By: Herminio Davila on 47-85-0807Stnrihgbqkl (Bld) [#/Vol]3.8 10*3/uLNormal 1.00-4.8Mercy HealthComment on above:Performed By: #### CBC, PT, PTT, CMP, CK, HS TROP #### [facility] [address] [place] [address] USALymphocytes/100 leukocytes in Blood by Automated count Ordered By: Herminio Davila on 55-95-2334Yowmtdcukuu/100 WBC (Bld)42.6 %Normal. Mercy HealthComment on above:Performed By: #### CBC, PT, PTT, CMP, CK, HS TROP #### [address] [Entitic mass] by Automated countOrdered By: Herminio Davila on 60-02-4015BJE (RBC) [Entitic mass]30.8 wpKzjljo13.5-35.2FTriHealth McCullough-Hyde Memorial HospitalComment on above:Performed By: #### CBC, PT, PTT, CMP, CK, HS TROP #### [address] Auto (RBC) [Mass/Vol]Ordered By: Herminio Davila on 10-66-7948UAWN (RBC) [Mass/Vol]36.1 g/pLZcfa01.5-35.6FTriHealth McCullough-Hyde Memorial HospitalMCV [Entitic volume] by Automated countOrdered By: Herminio Davila on 13-69-2167PZP (RBC) [Entitic vol]85.3 wDXclced86.5-101Mercy HealthComment on above:Performed By: #### CBC, PT, PTT, CMP, CK, HS TROP #### [place] [address] USAMonocyte distribution width [Entitic volume] in Blood by AutomatedOrdered By: Herminio Davila on 06-56-4574Ajllcusa distribution width Auto (Bld) [Entitic vol]18.83 %0.00-20.00Mercy HealthMonocytes [#/volume] in Blood by Automated countOrdered By: Herminio Davila on 02-04-2025 Monocytes (Bld) [#/Vol]0.5 10*3/uLNormal0.0-0.8[facility] Comment on above:Performed By: #### CBC, PT, PTT, CMP, CK, HS TROP #### [facility] [address] [place] [address] USAMonocytes/100 leukocytes in Blood by Automated count Ordered By: Herminio Davila on 69-84-5445Hjofqrfoc/100 WBC (Bld)5.5 %Normal. Mercy HealthComment on above:Performed By: #### CBC, PT, PTT, CMP, CK, HS TROP #### [facility] [address] [place] [address] USAMucus [Presence] in Urine by AutomatedOrdered By: Herminio Davila on 07-23-9449Xpnfn Auto Ql (U)Rare [LPF]Mercy HealthNeutrophils [#/volume] in Blood by Automated countOrdered By: Herminio Davila on 31-32-4653Hmojussoacu (Bld) [#/Vol]4.5 10*3/uLNormal1.8-7.7FTriHealth McCullough-Hyde Memorial HospitalComment on above:Performed By: #### CBC, PT, PTT, CMP, CK, HS TROP #### [facility] [address] [place] [id number] USANeutrophils/100 leukocytes in Blood by Automated count Ordered By: Herminio Davila on 36-59-0489Qpzxjypjkme/100 WBC (Bld)50.4 %Normal. Mercy HealthComment on above:Performed By: #### CBC, PT, PTT, CMP, CK, HS TROP #### [facility] [address] [place] [address] USANitrite Test strip Ql (U)Ordered By: Herminio Davila on 40-55-9420Knujsdy Ql (U)NegativeNegativeMercy HealthNo Panel InformationOrdered By: Herminio Davila on 23-85-7243Rskfilnv Creatinine Clearance (Npya585.66Mercy HealthNucleated erythrocytes [Presence] in Blood by Automated countOrdered By: Herminio Davila on 02-04-2025 Nucleated RBC Auto Ql (Bld)0.1 /100{WBC}0-0.5FTriHealth McCull[facility] Hospital Partial Thromboplastin Timeon 72-51-7459hBQM Coag (Bld) [Time]27.9 sNormal 25.1-36.5The [facility] Hospital Physician GroupComment on above:Result Comment: A hematocrit value greater than 55% may lead to inaccurate results in coagulation testing. Patients having hematocrit values >55% require a special collection tube for coagulation studies. Please contact the laboratory at [phone] for redraw instructions. PERFORMED BY: [place] [address] PATHOLOGIST MACHINE SHOP SPECIALIST JODY DAN M.D.Performed By: #### CBC, PT, PTT, CMP, CK, HS TROP #### [facility] [address] [place] [address] USAPlatelet mean volume [Entitic volume] in Blood by Automated countOrdered By: Herminio Davila on 34-27-7133Vkzxelvh mean volume (Bld) [Entitic vol]8.1 fLNormal6.6-10.1FTriHealth McCullough-Hyde Memorial HospitalComment on above:Performed By: #### CBC, PT, PTT, CMP, CK, HS TROP #### [facility] [address] [place] [address] USAPlatelets [#/volume] in Blood by Automated countOrdered By: Herminio Davila on 13-41-4147Qzbzeuopp (Bld) [#/Vol]223 10*3/jFNiyiho668-797 Mercy HealthComment on above:Performed By: #### CBC, PT, PTT, CMP, CK, HS TROP #### [facility] [address] [place] [address] USAPotassium [Moles/volume] in Serum or PlasmaOrdered By: Herminio Davila on 28-37-2746Dqgmaqzfg [Moles/Vol]3.7 mmol/LNormal3.5-5.1FTriHealth McCullough-Hyde Memorial HospitalComment on above:Performed By: #### CBC, PT, PTT, CMP, CK, HS TROP #### [facility] [address] [place] [address] USAProtein Test strip (U) [Mass/Vol]Ordered By: Herminio Davila on 45-15-1572Pdfjlrf (U) [Mass/Vol]NegativeNegativeMercy HealthProtein [Mass/volume] in Serum or PlasmaOrdered By: Herminio Davila on 40-37-4898Popkkia [Mass/Vol]7.7 g/dLNormal6.4-8.9Mercy HealthComment on above:Performed By: #### CBC, PT, PTT, CMP, CK, HS TROP #### [facility] [address] [place] [address] USAProthrombin time (PT)Ordered By: Herminio Davila on 97-07-6661TF Coag (PPP) [Time]11.5 sNormal9.0-12.9Mercy HealthComment on above:A hematocrit value greater than 55% may lead to inaccurate results in coagulation testing. Patientshaving hematocrit values >55% require a special collection tube for coagulation studies. Please contact the laboratory at [phone] for redraw instructions.Result Comment: A hematocrit value greater than 55% may lead to inaccurate results in coagulation testing. Patients having hematocrit values >55% require a special collection tube for coagulation studies. Please contact the laboratory at [phone] for redraw instructions.Performed By: #### CBC, PT, PTT, CMP, CK, HS TROP #### [facility] [address] [place] [address] USASerum globulin measurement by calculation (mass/volume) Ordered By: Herminio Davila on 73-27-0313Qthhdomb (S) [Mass/Vol]3.6 g/dLNormal Mercy HealthComment on above:Performed By: #### CBC, PT, PTT, CMP, CK, HS TROP #### [place] [address] USASerum or plasma albumin/globulin mass ratioOrdered By: Herminio Davila on 96-05-8367Fuhbdac/Globulin [Mass ratio]1.1 {ratio}Normal Mercy HealthComment on above:Performed By: #### CBC, PT, PTT, CMP, CK, HS TROP #### [place] [address] USASerum or plasma anion gap determinationOrdered By: Herminio Davila on 37-62-5038Qzlpr gap [Moles/Vol]11.1 mmol/LNormal6.0-15.0Mercy HealthComment on above:Performed By: #### CBC, PT, PTT, CMP, CK, HS TROP #### [place] [address] USASodium [Moles/volume] in Serum or PlasmaOrdered By: Herminio Davila on 40-88-7655Oaghua [Moles/Vol]136 mmol/DQcdckg239-754FdrysyvpeMercy HealthComment on above:Performed By: #### CBC, PT, PTT, CMP, CK, HS TROP #### [place] [address] USASpecific gravity Test strip (U) [Rel density]Ordered By: Herminio Davila on 72-37-3924Uxuoblbl gravity (U) [Rel density]1.0271.001-1.030 Mercy HealthTroponin I High Sensitivityon 02-04-2025 Troponin I High Aykfmyepuwh0Nnobzb6-00Gmm [facility] Physician GroupComment on above:Result Comment: The Troponin units of report have been changed to meet the Chest Pain Accreditation requirement, element EC5.M1l2. Troponin units are changed from pg/ml to ng/L. Also, the decimal is removed and results are in whole numbers. PERFORMED BY: [place] [address] PATHOLOGIST MACHINE SHOP SPECIALIST JODY DAN M.D.Performed By: #### CBC, PT, PTT, CMP, CK, HS TROP #### [facility] [address] [place] [id number] USATroponin I.cardiac [Mass/volume] in Serum or Plasma by Detection limit <= 0.01 ng/mLOrdered By: Herminio Davila on 78-95-8627Kbhxwenv I.cardiac DL <= 0.01 ng/mL [Mass/Vol]5 ng/L0-20[facility] Comment on above:The Troponin units of report have been changed to meet the Chest Pain Accreditation requirement, element EC5.M1l2. Troponin units are changed from pg/ml to ng/L. Also, the decimal is removed and results are in whole numbers.Urea nitrogen [Mass/volume] in Serum or PlasmaOrdered By: Herminio Davila on 71-44-1822Ezso nitrogen [Mass/Vol]16 mg/dLNormal7-25Mercy HealthComment on above:Performed By: #### CBC, PT, PTT, CMP, CK, HS TROP #### [facility] [address] [place] [id number] USAUrobilinogen Test strip (U) [Mass/Vol]Ordered By: Herminio Davila on 06-51-0954Dbmvobeomqai (U) [Mass/Vol]Normal mg/dLNoUC HealthWhole blood chloride measurementOrdered By: Herminio Davila on 28-02-4973Fpzesivr [Moles/Vol]106.0 mmol/FTtjzfd20-346MeoausfvnMercy HealthComment on above:Performed By: #### CUBLD #### [facility] [address] [place] [id number] USAWhole blood creatinine measurementOrdered By: Herminio Davila on 54-38-7517Mbrxgsfegn [Mass/Vol]1.0 mg/dLNormal0.6-1.3FTriHealth McCullough-Hyde Memorial HospitalComment on above:ER/ESD physician is notified/shown all ISTAT results.Critical values may be confirmed by laboratorytesting ifdeemed necessary by ER attending doctor.Result Comment: ER/ESD physician is notified/shown all ISTAT results. Critical values may be confirmed by laboratory testing if deemed necessary by ER attending doctor.Performed By: #### CUBLD #### [facility] [address] [place] [address] USAWhole blood ionized calcium measurement (moles/volume) Ordered By: Herminio Davila on 44-56-1245Ybodyxd.ionized (Bld) [Moles/Vol]1170 mmol/L1.12-1.32Mercy HealthWhole blood potassium measurementOrdered By: Herminio Davila on 96-90-6849Matarkunk [Moles/Vol]3.7 mmol/LNormal3.5-4.9Mercy HealthComment on above:Performed By: #### CUBLD #### [place] [address] USAWhole blood sodium measurementOrdered By: Herminio Davila on 98-61-0127Wfjrkn [Moles/Vol]140 mmol/ILtemut511-816MmhkltvnsMercy HealthComment on above:Performed By: #### CUBLD #### [place] [address] USAaPTT in Platelet poor plasma by Coagulation assayOrdered By: Herminio Davila on 73-41-2838mOZS Coag (PPP) [Time]27.9 s25.1-36.5FTriHealth McCullough-Hyde Memorial HospitalComment on above:A hematocrit value greater than 55% may lead to inaccurate results in coagulation testing. Patientshaving hematocrit values >55% require a special collection tube for coagulation studies. Please c ontact the laboratory at [phone] for redraw instructions.pH of Urine by Test stripOrdered By: Herminio Davila on 13-37-1108oH (U)5.5 [pH]Normal5.0-9.0 Mercy HealthComment on above:Order Comment: Name Collection Type:: VoidedPerformed By: #### CUBLD #### [place] [address] USAOffice Visiton 14-38-5340Pyeamd-up [id number] Chuck Packer 1985 M Date Provider Department Center 03/14/2024 Mayra-URBANO RODRIGUEZ [facility] SURG Second Fl No family history on file Level of Service:70419 [place] POSTOP FOLLOW UP VISIT RELATED TO ORIGINAL PX Reason for Visit and Comments: Post-op [483] - Chuck is here today for post op visit: hemorrhoids, s/p 02/29/24 EUA with hemorrhoidectomy and anal fissure debridementNormalUniAultman HospitalHISTOLOGY - TISSUE EXAMon 76-06-4854DYP AP CASE REPORT Rich HillUnBarberton Citizens HospitalComment on above:Order Comment: Pre-op diagnosis: Anal pain [K62.89]Result Comment: Surgical Pathology Case: [id number] Authorizing Provider: Urbano Rodriguez MD Collected: 02/29/2024 0827 Ordering Location: [facility] Main Operating Room Received: 02/29/2024 1058 Pathologist: Dyana Villasenor MD Specimens: A) - Anus, ANAL FISSURE B) - Anus, INTERNAL AND EXTERNAL HEMORRHOIDPerformed By: #### [id number] #### [facility] [address] [place], [place] [address]EFL AP CLINICAL INFORMATIONNormalUniAultman HospitalComment on above:Order Comment: Pre-op diagnosis: Anal pain [K62.89]Result Comment: Post-Op Diagnoses K62.89 - Anal pain [ICD-10-CM]Performed By: #### [id number] #### [facility] [address] [place], [place] [address]WUP AP GROSS DESCRIPTIONA. Anus.[facility] St. Charles HospitalComment on above:Order Comment: Pre-op diagnosis: Anal [...] in a single cassette. [place], Pathologists' Insole Buffer Leonel Hwang. Received in formalin labeled Chuck [...] are somewhat congested with focal prominent vessels. Plate Roller sections are submitted in a single cassette. [place] Pathologists' AssistantPerformed By: #### [id number] #### [facility] ([facility]) [address] [place], [place] [address]MBH AP MICROSCOPIC DESCRIPTIONMicroscopic examination performed. [facility] St. Charles HospitalComment on above:Order Comment: Pre-op diagnosis: Anal pain [K62.89]Performed By: #### [id number] #### [facility] ([facility]) [address] [place], [place] [address]PPT AP REPORT FINAL DIAGNOSIS NARRATIVENormalUniAultman HospitalComment on above:Order Comment: Pre-op diagnosis: Anal pain [K62.89]Result Comment: A. Anal fissure, debridement: - Hyperplastic squamous mucosa and dilated congested submucosal veins. B. Hemorrhoids, internal and external, hemorrhoidectomy: - Internal and external hemorrhoids with acutely inflamed reactive surface epithelium. Performed By: #### [id number] #### [facility] ([facility]) [address] [place], [place] [address]TEvr 54-73-1108JIM&P reviewed. The patient was examined and there are no changes to the H&P.[facility] St. Charles HospitalOPNOTE on 29-99-8148WMCJTCXIPL UNDER ANESTHESIA,, HEMORRHOIDECTOMY, DEBRIDMENT OF ANAL FISSURE Operative Note Date: 02/29/2024 Location: [facility] OR Name: Chuck Packer, : 1985, Diagnosis Pre-op Diagnosis * Anal pain [K62.89] Post-op Diagnosis * Anal pain [K62.89] Anal fissure External and internal hemorrhoid Procedures HEMORRHOIDECTOMY, DEBRIDMENT OF ANAL FISSURE EXAM UNDER ANESTHESIA, [address] - [place] ANRCT XM SURG REQ ANES GENERAL SPI/EDRL [...] EXTERNAL HEMORRHOID Comment: PLACED IN FORMALIN Staff: Clerk Television Production: Shannan Guy RN Scrub Person: Dianelys Watson [...] - hemodynamically stable. Condition: stable Melbarenu Rodriguez GpdtkzWmmtuggllnCleveland Clinic Euclid HospitalCT GLUCOSE METER UNSOLICITED RESULTSon 12-90-0900Nrbhtus [Mass/Vol]134 mg/bZDzeq83-464 [facility] CenterComment on above:Order Comment: Waived Testing in the ED is performed under the ED CLIA certificate #[id number].Result Comment: mwojazp37Nkwanvtem By: #### [id number] #### [facility] HOSPITAL LAB (BEAKER) [address] [place], [place] [address]Lhergyfnh [id number] Chuck Packer 1985 M Date Provider Department Center 02/23/2024 Mayra-MICHAEL URBANO [facility] SURG Second Fl No family history on file Level of Service:[address]231 [place] OFFICE/OUTPATIENT NEW LOW MDM 30 MINUTES Reason for Visit and Comments: Consult [484] - Chuck is here today for consult: Rectal pain and BleedingNormal [facility] CenterHPon 01-82-6644WRPmymjhymew Patient ID: Chuck Packer is a 38 [...] the past 36 hour(s)). No follow-ups on file.NormalDayton VA Medical CenterGeneral Surgery Office/Clinic Noteon 14-48-6753Ukkefji Surgery Office/Clinic NoteGeneral Surgery Office/Clinic Note HPI [...] Rectal bleeding Rectal or anal pain Smoker Aoxac-Vjjnylcak-Olccf syndrome Historical Atrial fibrillation Epididymitis Nocturia Scrotal [...] virus vaccine, inactivated - Not Given Patient RefusesNormalFishUniversity of Maryland Medical CenterComment on above:Result Comment: Electronically Signed By: VIVIANE SIMS, Lucy Yañez\Date and Time Signed: 12/26/23 19:55 EDTAmbulatory Visit Summaryon 42-85-6396Qmshobpcpl Visit SummaryAmbulatory Visit Summary CHUCK PACKER :1985 [...] with mild panic attacks Rectal bleeding Smoker Bjjon-Ketxbgzvv-Ewzea syndrome Historical - Any problem that you are no longer receiving treatment for. Atrial fibrillation Epididymitis Nocturia Scrotal pain Patient Survey You may receive a survey via text or e-mail asking about your office visit. Please share your experience with us by completing your survey. We appreciate your feedback and thank you for choosing us for your care. [facility] HospitalCB AUTO DIFFon 06-92-8942IGLF # 0.0 103/ulNormal0.0-0.1The [facility] Va Medical CenterComment on above:Performed By: #### PTT, PT #### [facility] [address] [place] [address] Dr. Oh TrotterBasophils/100 WBC (Bld)0.2 %Normal0.2-2.0[facility] Comment on above:Performed By: #### PTT, PT #### [facility] [address] [place] [address] Dr. Oh Shaw #0.0 103/ulNormal0.0-0.7The [facility] Va Medical CenterComment on above: Performed By: #### PTT, PT #### [facility] [address] [place] [address] Dr. Oh Huangosinophils/100 WBC (Bld)0.6 %Critically low0.9-7.0The [facility] Va Medical CenterComment on above:Performed By: #### PTT, PT #### [facility] [address] [place] [address] Dr. Oh Huangrythrocyte distribution width (RBC) [Ratio]12.2 %Vrpoeb46.0-15.0 The [facility] Medical CenterComment on above:Performed By: #### PTT, PT #### [facility] [address] [place] [address] Dr. Oh Dejesusatocrit (Bld) [Volume fraction]44.1 %Qutvck39.0-54.0[facility] West HospitalComment on above:Performed By: #### PTT, PT #### [facility] [address] [place] [address] Dr. Yilan ChangHemoglobin (Bld) [Mass/Vol]15.8 g/mKOzgpmi31.0-18.0The [facility] Medical CenterComment on above:Performed By: #### PTT, PT #### [facility] [address] [place] [address] Dr. Oh Malave #0.02 10e3/ulNormal0.00-0.03The [facility] Medical CenterComment on above:Performed By: #### PTT, PT #### [facility] [address] [place] [address] Dr. Oh Malave %0.3 %Normal0.0-0.5The [facility] Medical CenterComment on above: Performed By: #### PTT, PT #### [facility] [address] [place] [address] Dr. Oh Aldana #1.9 103/ulNormal1.2-3.8The [facility] Medical CenterComment on above:Performed By: #### PTT, PT #### [facility] [address] [place] [address] Dr. Oh Orellanahocytes/100 WBC (Bld)29.7 %Bqalwy35.5-60.0The [facility] Medical CenterComascension borgess lee hospital on above:Performed By: #### PTT, PT #### [facility] [address] [place] [address] Dr. Oh SaldanaUAL DIFF REQNONormalThe [facility] Medical CenterComment on above: Performed By: #### PTT, PT #### [facility] [address] [place] [address] Dr. Oh Lau (RBC) [Entitic mass]29.8 oyYhndej41.9-34.0The [facility] Medical CenterComment on above:Performed By: #### PTT, PT #### [facility] [address] [place] [address] Dr. Oh Lau (RBC) [Mass/Vol]35.8 g/dLCritically high29.9-35.2The [facility] Medical CenterComment on above:Performed By: #### PTT, PT #### [facility] [address] [place] [address] Dr. Oh LauV (RBC) [Entitic vol]83.2 wNPxiwfz05.0-94.0The Peoples Hospitalment on above:Performed By: #### PTT, PT #### [facility] [address] [place] [address] Dr. Oh Johnson #0.6 103/ulNormal0.3-0.8The [facility] Medical CenterComment on above:Performed By: #### PTT, PT #### [facility] [address] [place] [address] Dr. Oh Cedeñoocytes/100 WBC (Bld)8.6 %Normal1.7-12.0The [facility] on above:Performed By: #### PTT, PT #### [facility] [address] [place] [address] Dr. Oh Cruz #3.9 103/ulNormal1.4-6.5The Peoples Hospitalment on above:Performed By: #### PTT, PT #### [facility] [address] [place] [address] Dr. Oh Velazquezutrophils/100 WBC (Bld)60.6 %Akoawa68.0-75.0The [facility] on above:Performed By: #### PTT, PT #### [facility] [address] [place] [address] Dr. Oh Holmanlet mean volume (Bld) [Entitic vol]9.5 fLNormal9.5-13.5The Peoples Hospitalment on above:Performed By: #### PTT, PT #### [facility] [address] [place] [address] Dr. Oh TrottrePLT187 103/okPkeuzw765-408Ltu [facility] on above: Performed By: #### PTT, PT #### [facility] [address] [place] [address] Dr. Oh TrotterRBC5.30 106/ulNormal4.70-6.10The Peoples Hospitalment on above:Performed By: #### PTT, PT #### [facility] [address] [place] [address] [address] Oh TrotterWBC6.4 103/ulNormal4.0-11.0The [facility] Medical CenterComment on above: Performed By: #### PTT, PT #### [facility] [address] [place] [address] [address] Oh Paul 14(COMP METB)on 95-25-5754Supbgdh [Mass/Vol]3.5 g/dLNormal 3.4-5.0The [facility] Medical CenterComment on above:Performed By: #### LIPA, CMP, HSTROPN #### [facility] [address] [place] [address] Dr. Oh TrotterAlbumin/Globulin [Mass ratio]0.7 {ratio}NormalThe [facility] Medical CenterComment on above:Performed By: #### LIPA, CMP, HSTROPN #### [facility] [address] [place] [address] Dr. Oh Sheets [Catalytic activity/Vol]85 U/CQyibdo10-312Ojb Peoples Hospitalment on above:Performed By: #### LIPA, CMP, HSTROPN #### [facility] [address] [place] [address] Dr. Oh Negron [Catalytic activity/Vol]34 U/KTeyeky68-54Mja [facility] Medical CenterComment on above:Performed By: #### LIPA, CMP, HSTROPN #### [facility] [address] [place] [address] Dr. Oh Claire gap [Moles/Vol]13.3 mmol/LNormalThe [facility] on above:Performed By: #### LIPA, CMP, HSTROPN #### [facility] [address] [place] [address] Dr. Oh Milner [Catalytic activity/Vol]18 U/JBcpqhq59-37Hek Peoples Hospitalment on above:Performed By: #### LIPA, CMP, HSTROPN #### [facility] [address] [place] [address] [address] Oh TrotterBilirubin [Mass/Vol]0.4 mg/dLNormal0.2-1.0The [facility] Comment on above:Performed By: #### LIPA, CMP, HSTROPN #### [facility] [address] [place] [address] Dr. Oh TrotterCalcium [Mass/Vol]8.9 mg/dLNormal8.5-10.1[facility] Comment on above:Performed By: #### LIPA, CMP, HSTROPN #### [facility] [address] [place] [address] Dr. Oh TrotterChloride [Moles/Vol]105 mmol/MSqjzyo16-213TrqMercy Health West Hospital Comment on above:Performed By: #### LIPA, CMP, HSTROPN #### [facility] [address] [place] [address] Dr. Oh TrotterCO2 [Moles/Vol]24.7 mmol/IXkuxlh56.0-32.0[facility] [facility] Comment on above:Performed By: #### LIPA, CMP, HSTROPN #### [facility] [address] [place] [address] Dr. Oh TrotterCreatinine [Mass/Vol]0.88 mg/dLNormal0.70-1.30The [facility] CenterComment on above:Performed By: #### LIPA, CMP, HSTROPN #### [facility] [address] [place] [address] Dr. Oh HuangGFR-AF CHINESE>60Normal>=60The [facility] CenterComment on above:Performed By: #### LIPA, CMP, HSTROPN #### [facility] [address] [place] [address] Dr. Oh HuangGFR-NON AF CHINESE>60Normal>=60The [facility] CenterComment on above:Performed By: #### LIPA, CMP, HSTROPN #### [facility] [address] [address] [address] Oh TrotterGlobulin (S) [Mass/Vol]4.8 g/dLNormMercy Health Tiffin HospitalComment on above:Performed By: #### LIPA, CMP, HSTROPN #### [facility] [address] [place] [address] Dr. Oh TrotterGlucose [Mass/Vol]113 mg/dLCritically wghb95-974Zvu [facility] CenterComment on above:Performed By: #### LIPA, CMP, HSTROPN #### [facility] [address] [address] [address] Oh TrotterPotassium [Moles/Vol]4.0 mmol/LNormal3.5-5.1The [facility] Comment on above:Performed By: #### LIPA, CMP, HSTROPN #### [facility] [address] [place] [address] Dr. Oh TrotterProtein [Mass/Vol]8.3 g/dLCritically high6.4-8.2The [facility] CenterComment on above:Performed By: #### LIPA, CMP, HSTROPN #### [facility] [address] [place] [address] Dr. Oh Lopezdium [Moles/Vol]139 mmol/DKjrpei140-147Uos [facility] Comment on above:Performed By: #### LIPA, CMP, HSTROPN #### [facility] [address] [place] [address] Dr. Oh TrotterUrea nitrogen [Mass/Vol]15.0 mg/dLNormal7.0-18.0The [facility] CenterComment on above:Performed By: #### LIPA, CMP, HSTROPN #### [facility] [address] [place] [address] Dr. Oh Amador nitrogen/Creatinine [Mass ratio]17.0 mg/mgNoDiley Ridge Medical CenterComment on above:Performed By: #### LIPA, CMP, HSTROPN #### [facility] [address] [place] [address] Dr. Oh TrotterXR ABD FLAT UP_PA German [id number] ABD FLAT UP_PA CHEXAM: XR ABD FLAT [...] Electronically authenticated by: VERA SETHI Date: 2022-07-28 22:14[facility] AUTO DIFFon [id number] #0.0 103/ulNormal0.0-0.1[facility] HospitalComment on above:Performed By: #### LIPA, CMP, HSTROPN #### [facility] [address] [address] [address] Oh TrotterBasophils/100 WBC (Bld)0.2 %Normal0.2-2.0[facility] Comment on above:Performed By: #### LIPA CMP, HSTROPN #### [facility] [address] [address] [address] Oh Shaw #0.1 103/ulNormal0.0-0.7The [facility] CenterComment on above: Performed By: #### LIPA CMP, HSTROPN #### [facility] [address] [place] [address] Dr. Oh Huangosinophils/100 WBC (Bld)0.9 %Normal0.9-7.0[facility] Comment on above:Performed By: #### LIPA, CMP, HSTROPN #### [facility] [address] [place] [address] Dr. Oh Huangrythrocyte distribution width (RBC) [Ratio]12.4 %Igtcwg54.0-15.0 The [facility] CenterComment on above:Performed By: #### LIPA, CMP, HSTROPN #### [facility] [address] [place] [address] Dr. Oh TrotterHematocrit (Bld) [Volume fraction]44.8 %Fhwzld21.0-54.0The [facility] CenterComment on above:Performed By: #### LIPA, CMP, HSTROPN #### [facility] [address] [place] [address] Dr. Oh TrotterHemoglobin (Bld) [Mass/Vol]15.7 g/qLNicbba31.0-18.0The [facility] CenterComment on above:Performed By: #### LIPA, CMP, HSTROPN #### [facility] [address] [place] [address] Dr. Oh Malave #0.02 10e3/ulNormal0.00-0.03The [facility] CenterComment on above:Performed By: #### LIPA, CMP, HSTROPN #### [facility] [address] [place] [address] Dr. Oh Malave %0.2 %Normal0.0-0.5The [facility] CenterComment on above: Performed By: #### LIPA, CMP, HSTROPN #### [facility] [address] [place] [address] Dr. Oh OrellanaH #3.2 103/ulNormal1.2-3.8The [facility] CenterComment on above:Performed By: #### LIPA, CMP, HSTROPN #### [facility] [address] [place] [address] Dr. Oh Shahmphocytes/100 WBC (Bld)39.2 %Dqhteg95.5-60.0The Deep HospitalComment on above:Performed By: #### LIPA, CMP, HSTROPN #### [facility] [address] [address] [address] Oh Smith DIFF REQNONormalThe [facility] CenterComment on above: Performed By: #### LIPA, CMP, HSTROPN #### [facility] [address] [place] [address] Dr. Oh Lau (RBC) [Entitic mass]29.3 nvJifvab94.9-34.0The [facility] CenterComment on above:Performed By: #### LIPA, CMP, HSTROPN #### [facility] [address] [place] [address] Dr. Oh Lau (RBC) [Mass/Vol]35.0 g/cJIoukth20.9-35.2The [facility] CenterComment on above:Performed By: #### LIPA, CMP, HSTROPN #### [facility] [address] [place] [address] Dr. Oh Sahni (RBC) [Entitic vol]83.7 dNPcyjre64.0-94.0The [facility] CenterComment on above:Performed By: #### LIPA, CMP, HSTROPN #### [facility] [address] [place] [address] Dr. Oh Johnson #0.6 103/ulNormal0.3-0.8The [facility] CenterComment on above:Performed By: #### LIPA, CMP, HSTROPN #### [facility] [address] [place] [address] Dr. Oh Cedeñoocytes/100 WBC (Bld)7.5 %Normal1.7-12.0The [facility] Comment on above:Performed By: #### LIPA, CMP, HSTROPN #### [facility] [address] [place] [address] Dr. Oh Cruz #4.3 103/ulNormal1.4-6.5The [facility] CenterComment on above:Performed By: #### LIPA, CMP, HSTROPN #### [facility] [address] [place] [address] Dr. Oh Velazquezutrophils/100 WBC (Bld)52.0 %Gmlxko18.0-75.0The [facility] CenterComment on above:Performed By: #### LIPA, CMP, HSTROPN #### [facility] [address] [place] [address] Dr. Oh TrotterPlatelet mean volume (Bld) [Entitic vol]9.8 fLNormal9.5-13.5The [facility] CenterComment on above:Performed By: #### LIPA, CMP, HSTROPN #### [facility] [address] [place] [address] Dr. Oh TrotterPLT210 103/jkYpzxdk418-845Qyw [facility] CenterComment on above: Performed By: #### LIPA, CMP, HSTROPN #### [facility] [address] [place] [address] Dr. Oh TrotterRBC5.35 106/ulNormal4.70-6.10The [facility] CenterComascension [facility] on above:Performed By: #### LIPA, CMP, HSTROPN #### [facility] [address] [place] [address] Dr. Oh TrotterWBC8.2 103/ulNormal4.0-11.0The [facility] CenterComascension [facility] on above: Performed By: #### LIPA, CMP, HSTROPN #### [facility] [address] [place] [address] Dr. Oh TrotterOCC BLD IMMUNOASSAYon 76-97-5304QSQNIQ BLOODPositiveAbnormal NEGATIVEThe [facility] CenterComascension [facility] on above:Performed By: #### PTT, PT #### [facility] [address] [place] [address] Dr. Oh Paul 14(COMP METB)on 55-36-6087Cmyfknd [Mass/Vol]3.9 g/dLNormal 3.4-5.0The [facility] CenterComment on above:Performed By: #### LIPA, CMP, HSTROPN #### [facility] [address] [address] [address] Oh TrotterAlbumin/Globulin [Mass ratio]0.9 {ratio}NormalThe [facility] CenterComascension [facility] on above:Performed By: #### LIPA, CMP, HSTROPN #### [facility] [address] [place] [address] Dr. Oh AstorgaP [Catalytic activity/Vol]98 U/EJcwlyl32-755Nyy [facility] on above:Performed By: #### LIPA, CMP, HSTROPN #### [facility] [address] [place] [address] Dr. Oh Negron [Catalytic activity/Vol]47 U/EVcjbzb36-59Jgm Peoples Hospitalment on above:Performed By: #### LIPA, CMP, HSTROPN #### [facility] [address] [place] [address] Dr. Oh Claire gap [Moles/Vol]13.8 mmol/LNormalThe [facility] Comment on above:Performed By: #### LIPA, CMP, HSTROPN #### [facility] [address] [place] [address] Dr. Oh TrotterAST [Catalytic activity/Vol]18 U/NDlwosb23-75Eyp [facility] on above:Performed By: #### LIPA, CMP, HSTROPN #### [facility] [address] [place] [address] Dr. Oh TrotterBilirubin [Mass/Vol]0.3 mg/dLNormal0.2-1.0The [facility] Comment on above:Performed By: #### LIPA, CMP, HSTROPN #### [facility] [address] [place] [address] Dr. Oh TrotterCalcium [Mass/Vol]8.8 mg/dLNormal8.5-10.1[facility] Comment on above:Performed By: #### LIPA, CMP, HSTROPN #### [facility] [address] [address] [address] Oh TrotterChloride [Moles/Vol]105 mmol/XDqgjxq44-675Ydk [facility] Comment on above:Performed By: #### LIPA, CMP, HSTROPN #### [facility] [address] [address] [address] Oh TrotterCO2 [Moles/Vol]25.2 mmol/GVazrtu58.0-32.0The [facility] Comment on above:Performed By: #### LIPA, CMP, HSTROPN #### [facility] [address] [place] [address] Dr. Oh TrotterCreatinine [Mass/Vol]1.02 mg/dLNormal0.70-1.30The [facility] CenterComment on above:Performed By: #### LIPA, CMP, HSTROPN #### [facility] [address] [place] [address] Dr. Oh HuangGFR-AF CHINESE>60Normal>=60The [facility] CenterComment on above:Performed By: #### LIPA, CMP, HSTROPN #### [facility] [address] [place] [address] Dr. Oh Mccormick-NON AF CHINESE>60Normal>=60[facility] HospitalComment on above:Performed By: #### LIPA, CMP, HSTROPN #### [facility] [address] [place] [address] Dr. Oh TrotterGlobulin (S) [Mass/Vol]4.2 g/dLNormalThe [facility] CenterComment on above:Performed By: #### LIPA, CMP, HSTROPN #### [facility] [address] [place] [address] Dr. Oh TrotterGlucose [Mass/Vol]104 mg/gWSutyuk33-004Ixp [facility] Comment on above:Performed By: #### LIPA, CMP, HSTROPN #### [facility] [address] [place] [address] Dr. Oh TrotterPotassium [Moles/Vol]4.0 mmol/LNormal3.5-5.1The [facility] Comment on above:Performed By: #### LIPA, CMP, HSTROPN #### [facility] [address] [address] [address] Oh TrotterProtein [Mass/Vol]8.1 g/dLNormal6.4-8.2[facility] Comment on above:Performed By: #### LIPA, CMP, HSTROPN #### [facility] [address] [place] [address] Dr. Oh TrotterSodium [Moles/Vol]140 mmol/GIbuykt376-284Jtz [facility] Comment on above:Performed By: #### LIPA, CMP, HSTROPN #### [facility] [address] [place] [address] Dr. Oh TrotterUrea nitrogen [Mass/Vol]16.0 mg/dLNormal7.0-18.0[facility] HospitalComment on above:Performed By: #### LIPA, CMP, HSTROPN #### [facility] [address] [place] [address] Dr. Oh Amador nitrogen/Creatinine [Mass ratio]15.7 mg/mgNoDiley Ridge Medical CenterComment on above:Performed By: #### LIPA, CMP, HSTROPN #### [facility] [address] [place] [address] Dr. Oh TrotterPROTIMEon 28-00-1555SUR Coag (PPP) [Relative time]{INR}NormalMercy Health West HospitalComment on above:Performed By: #### PTT, PT #### [facility] [address] [place] [address] Dr. Oh Coy GUIDELINESSEE BELOWSelect Medical TriHealth Rehabilitation HospitalComment on above:Result Comment: DESIRED INR: 2.0 - 3.0 CONDITIONS NOT LISTED BELOW 2.5 - 3.5 FOR PROSTHETIC HEART VALVE REPLACEMENT 2.5 - 3.5 RECURRENT THROMBOSIS Performed By: #### PTT, PT #### [facility] [address] [place] [address] Dr. Oh Young Coag (PPP) [Time]9.8 sNormal9.0-11.6ThThe [facility] Comment on above:Performed By: #### PTT, PT #### [facility] [address] [place] [address] Dr. Oh Lozoya 59-29-7833sYYO Coag (Bld) [Time]26.6 hXmooht67.3-36.2[facility] HospitalComment on above:Performed By: #### PTT, PT #### [facility] [address] [place] [address] Dr. Oh TrotterCovid-19 PCR ([facility])on [id number]-CoV-2 (COVID-19) RNA SHAE+probe Ql (Unsp spec)Not detectedNormalNOT DETECTEDMercy Health West Hospital Comment on above:Result Comment: This test is not yet approved or cleared by the [place] FDA. When there are no FDA-approved or cleared tests available, and other criteria are met, FDA can make tests available under an emergency access mechanism called an Emergency Use Authorization (EUA). The EUA for this test is supported by the Print Decorator of Health and Human Service's (HHS's) declaration [...] with SARS-CoV-2.Performed By: #### PTT, PT #### [facility] [address] [place] [address] Dr. Oh TrotterINFLRENEENZA A AND B AGon [id number] McCullough-[facility] Memorial HospitalComment on above:Result Comment: Negative for Flu A protein angiten. Infection due to Flu A cannot be ruled out. FluA angiten in the sample may be below the detection limit of the test.Performed By: #### LIPA, CMP, HSTROPN #### [facility] [address] [place] [address] Dr. Oh Wray [facility] SystemComment on above: Result Comment: Negative for Flu B protein antigen. Infection due to Flu B cannot be ruled out. FluB antigen in the sample may be below the detection limit of the test.Performed By: #### LIPA, CMP, HSTROPN #### [facility] [address] [place] [address] Dr. Oh Carrillo AGNegativeNormalNEGATIVE SEE COMMENTThe [facility] on above:Performed By: #### LIPA, CMP, HSTROPN #### [facility] [address] [place] [address] Dr. Oh Ashton AGNegativeNormalNEGATIVE SEE COMMENTThe [facility] CenterComment on above:Performed By: #### LIPA, CMP, HSTROPN #### [facility] [address] [place] [address] Dr. Oh Bonilla AUTO DIFFon [id number] #0.0 103/ulNormal0.0-0.1The [facility] CenterComment on above:Performed By: #### PTT, PT #### [facility] [address] [place] [address] Dr. Oh TrotterBasophils/100 WBC (Bld)0.2 %Normal0.2-2.0The [facility] Comment on above:Performed By: #### PTT, PT #### [facility] [address] [place] [address] Dr. Oh Shaw #0.0 103/ulNormal0.0-0.7The [facility] CenterComment on above: Performed By: #### PTT, PT #### [facility] [address] [place] [address] Dr. Oh Huangosinophils/100 WBC (Bld)0.4 %Critically low0.9-7.0The [facility]oples Hospitalment on above:Performed By: #### PTT, PT #### [facility] [address] [place] [address] Dr. Oh Huangrythrocyte distribution width (RBC) [Ratio]12.2 %Ebndom02.0-15.0 The [facility] CenterComment on above:Performed By: #### PTT, PT #### [facility] [address] [place] [address] Dr. Oh TrotterHematocrit (Bld) [Volume fraction]45.7 %Ybrumt15.0-54.0The [facility] CenterComment on above:Performed By: #### PTT, PT #### [facility] [address] [place] [address] Dr. Oh TrotetrHemoglobin (Bld) [Mass/Vol]16.0 g/aANbxftg99.0-18.0The [facility] Hospitalment on above:Performed By: #### PTT, PT #### [facility] [address] [place] [address] Dr. Oh Malave #0.04 10e3/ulCritically high0.00-0.03The [facility] Comment on above:Performed By: #### PTT, PT #### [facility] [address] [place] [address] Dr. Oh TrotterIG %0.4 %Normal0.0-0.5The [facility] CenterComment on above: Performed By: #### PTT, PT #### [facility] [address] [place] [address] Dr. Oh ShahMPH #2.8 103/ulNormal1.2-3.8The [facility] CenterComment on above:Performed By: #### PTT, PT #### [facility] [address] [place] [address] Dr. Oh Shahmphocytes/100 WBC (Bld)29.5 %Kmxces78.5-60.0The [facility] Hospitalment on above:Performed By: #### PTT, PT #### [facility] [address] [place] [address] Dr. Oh Smith DIFF REQNONormalThe [facility] CenterComment on above: Performed By: #### PTT, PT #### [facility] [address] [place] [address] Dr. Oh Lau (RBC) [Entitic mass]29.7 maAdudie22.9-34.0The [facility] HospitalComment on above:Performed By: #### PTT, PT #### [facility] [address] [place] [address] Dr. Oh Lau (RBC) [Mass/Vol]35.0 g/wCExspfx10.9-35.2The [facility] CenterComment on above:Performed By: #### PTT, PT #### [facility] [address] [place] [address] Dr. Oh Lau (RBC) [Entitic vol]84.8 gPJudxpk51.0-94.0The [facility] CenterComment on above:Performed By: #### PTT, PT #### [facility] [address] [place] [address] Dr. Oh Johnson #0.5 103/ulNormal0.3-0.8The [facility] CenterComment on above:Performed By: #### PTT, PT #### [facility] [address] [place] [address] Dr. Oh Cedeñoocytes/100 WBC (Bld)5.2 %Normal1.7-12.0The [facility] Comment on above:Performed By: #### PTT, PT #### [facility] [address] [place] [address] Dr. Oh Cruz #6.2 103/ulNormal1.4-6.5The [facility] CenterComment on above:Performed By: #### PTT, PT #### [facility] [address] [place] [address] Dr. Oh Velazquezutrophils/100 WBC (Bld)64.3 %Gcjxsw86.0-75.0The [facility] CenterComment on above:Performed By: #### PTT, PT #### [facility] [address] [place] [address] Dr. Oh Holmanlet mean volume (Bld) [Entitic vol]9.9 fLNormal9.5-13.5The [facility] CenterComment on above:Performed By: #### PTT, PT #### [facility] [address] [place] [address] Dr. Oh TrotterPLT196 103/rfRghpkv744-660Vxv [facility] CenterComment on above: Performed By: #### PTT, PT #### [facility] [address] [place] [address] Dr. Oh TrotterRBC5.39 106/ulNormal4.70-6.10The [facility] CenterComment on above:Performed By: #### PTT, PT #### [facility] [address] [place] [address] Dr. Oh TrotterWBC9.6 103/ulNormal4.0-11.0The [facility] CenterComment on above: Performed By: #### PTT, PT #### [facility] [address] [place] [address] Dr. Oh BlissDIMERon 06-42-9808K-DIMER<0.19Normal<=0.59[facility] Comment on above:Performed By: #### PTT, PT #### [facility] [address] [place] [address] Dr. Oh Delgado-DIMER COMMENTSSEE [facility] Health SystemComment on above:Result Comment: Increases in D-Dimer concentration [...] hospitalization. Performed By: #### PTT, PT #### [facility] [address] [address] [address] Oh Magana URINE PROFILEon 70-41-7547Gnkwspshm Ql (U)NegativeNormal NEGATIVEMercy Health West HospitalComment on above:Performed By: #### SRAVANI UMICRO #### [facility] [address] [address] [address] Oh TrotterClarity (U)CLEARNormalCLEARMercy Health West HospitalComment on above: Performed By: #### SRAVANI UMICRO #### [facility] [address] [address] [address] Oh Maierlor (U)LT. YELLOWNormalYELLOWMercy Health West HospitalComment on above:Performed By: #### SRAVANI UMICRO #### [facility] [address] [place] [address] Dr. Oh Washburn micrscopic examination will be performed if indicated. NormalMercy Health West HospitalComment on above:Performed By: #### SRAVANI UMICRO #### [facility] [address] [place] [address] Dr. Oh TrotterGlucose Ql (U)NegativeNormalNEGATIVEMercy Health West HospitalComment on above:Performed By: #### SRAVANI UMICRO #### [facility] [address] [place] [address] Dr. Oh TrotterHemoglobin Ql (U)SMALLAbnormalNEGATIVESouthview Medical Center on above:Performed By: #### SRAVANI UMICRO #### [facility] [address] [place] [address] Dr. Oh TrotterKetones Ql (U)NegativeNormalNEGATIVEMercy Health West HospitalComment on above:Performed By: #### SRAVANI UMICRO #### [facility] [address] [place] [address] Dr. Oh TrotterLEUKOCYTESNegativeNormalNEGATIVEMercy Health West HospitalComment on above:Performed By: #### SRAVANI UMICRO #### [facility] [address] [place] [address] Dr. Oh Eng Ql (U)NegativeNormalNEGATIVEThe [facility] CenterComment on above:Performed By: #### OSVALDO LASSITER #### [facility] [address] [place] [address] Dr. Oh TrotterpH (U)6.0 [pH]Normal5-9The [facility] CenterComment on above: Performed By: #### OSVALDO LASSITER #### [facility] [address] [place] [address] Dr. Oh TrotterSPEC GRAVITY1.935Gbgqtb6.005-<=1.025The [facility] CenterComment on above:Performed By: #### OSVALDO LASSITER #### [facility] [address] [place] [address] Dr. Oh TrotterUA PROTEINNegativeNormalNEGATIVE/ TRACEThe [facility] Comment on above:Performed By: #### OSVALDO LASSITER #### [facility] [address] [place] [address] Dr. Oh Castellanos MICRO INDINDICATEDNormalThe [facility] CenterComment on above: Performed By: #### OSVALDO LASSITER #### [facility] [address] [place] [address] Dr. Oh TrotterUrobilinogen Qn (U)0.2 {Federico'U}/dLNormal0.2 - 1.0The [facility] CenterComment on above:Performed By: #### OSVALDO LASSITER #### [facility] [address] [place] [address] Dr. Oh TrotterLIPASEon 52-83-3274Awhctn [Catalytic activity/Vol]125.0 U/LNormal 73.0-393.0The [facility] CenterComment on above:Performed By: #### LIPA, CMP, HSTROPN #### [facility] [address] [place] [address] Dr. Oh TrotterPROF 14(COMP METB)on 60-59-5821Mtxoznw [Mass/Vol]3.8 g/dLNormal 3.4-5.0The [facility] CenterComment on above:Performed By: #### LIPA, CMP, HSTROPN #### [facility] [address] [place] [address] Dr. Oh TrotterAlbumin/Globulin [Mass ratio]0.8 {ratio}NormalThe [facility] CenterComment on above:Performed By: #### LIPA, CMP, HSTROPN #### [facility] [address] [place] [address] Dr. Oh Sheets [Catalytic activity/Vol]77 U/PEqdonq44-802Utf [facility] CenterComment on above:Performed By: #### LIPA, CMP, HSTROPN #### [facility] [address] [place] [address] Dr. Oh Negron [Catalytic activity/Vol]39 U/HDakzok50-15Fyq [facility] CenterComment on above:Performed By: #### LIPA, CMP, HSTROPN #### [facility] [address] [place] [address] Dr. Oh Claire gap [Moles/Vol]9.3 mmol/LNormalThe [facility] CenterComment on above:Performed By: #### LIPA, CMP, HSTROPN #### [facility] [address] [place] [address] Dr. Oh Milner [Catalytic activity/Vol]21 U/NCqxckl08-96Tgc [facility] CenterComment on above:Performed By: #### LIPA, CMP, HSTROPN #### [facility] [address] [place] [address] Dr. Oh TrotterBilirubin [Mass/Vol]0.4 mg/dLNormal0.2-1.0The [facility] Comment on above:Performed By: #### LIPA, CMP, HSTROPN #### [facility] [address] [place] [address] Dr. Oh TrotterCalcium [Mass/Vol]9.2 mg/dLNormal8.5-10.1The [facility] Comment on above:Performed By: #### LIPA, CMP, HSTROPN #### [facility] [address] [address] [address] Oh TrotterChloride [Moles/Vol]102 mmol/CAhkkft09-403ZulMercy Health West Hospital Comment on above:Performed By: #### LIPA, CMP, HSTROPN #### [facility] [address] [address] [address] Oh TrotterCO2 [Moles/Vol]26.6 mmol/KNffyeq01.0-32.0[facility] Comment on above:Performed By: #### LIPA, CMP, HSTROPN #### [facility] [address] [place] [address] Dr. Oh TrotterCreatinine [Mass/Vol]1.08 mg/dLNormal0.70-1.30[facility] HospitalComment on above:Performed By: #### LIPA, CMP, HSTROPN #### [facility] [address] [place] [address] Dr. Oh HuangGFR-AF CHINESE>60Normal>=60[facility] HospitalComment on above:Performed By: #### LIPA, CMP, HSTROPN #### [facility] [address] [place] [address] Dr. Oh HuangGFR-NON AF CHINESE>60Normal>=60[facility] HospitalComment on above:Performed By: #### LIPA, CMP, HSTROPN #### [facility] [address] [address] [address] Oh TrotterGlobulin (S) [Mass/Vol]4.7 g/dLNormalThe [facility] CenterComment on above:Performed By: #### LIPA, CMP, HSTROPN #### [facility] [address] [place] [address] Dr. Oh TrotterGlucose [Mass/Vol]103 mg/dNMnosqd83-875YcpMercy Health West Hospital Comment on above:Performed By: #### LIPA, CMP, HSTROPN #### [facility] [address] [address] [address] Oh TrotterPotassium [Moles/Vol]3.9 mmol/LNormal3.5-5.1The [facility] Comment on above:Performed By: #### LIPA, CMP, HSTROPN #### [facility] [address] [place] [address] Dr. Oh TrotterProtein [Mass/Vol]8.5 g/dLCritically high6.4-8.2The [facility] CenterComment on above:Performed By: #### LIPA, CMP, HSTROPN #### [facility] [address] [place] [address] Dr. Oh TrotterSodium [Moles/Vol]134 mmol/LCritically trr045-814Pjs [facility] CenterComment on above:Performed By: #### LIPA, CMP, HSTROPN #### [facility] [address] [place] [address] Dr. Oh TrotterUrea nitrogen [Mass/Vol]20.0 mg/dLCritically high7.0-18.0The [facility] CenterComment on above:Performed By: #### LIPA, CMP, HSTROPN #### [facility] [address] [place] [address] Dr. Oh Amador nitrogen/Creatinine [Mass ratio]18.5 mg/mgNoDiley Ridge Medical CenterComment on above:Performed By: #### LIPA, CMP, HSTROPN #### [facility] [address] [place] [address] Dr. Oh TrotterPROTIMEon 16-14-6049ZBS Coag (PPP) [Relative time]1.00 {INR} NormalThe [facility] CenterComment on above:Performed By: #### PTT, PT #### [facility] [address] [place] [address] Dr. Oh Coy GUIDELINESSEE BELOWSelect Medical TriHealth Rehabilitation HospitalComment on above:Result Comment: DESIRED INR: 2.0 - 3.0 CONDITIONS NOT LISTED BELOW 2.5 - 3.5 FOR PROSTHETIC HEART VALVE REPLACEMENT 2.5 - 3.5 RECURRENT THROMBOSIS Performed By: #### PTT, PT #### [facility] [address] [place] [address] Dr. Oh Young Coag (PPP) [Time]10.8 sNormal9.0-11.6The [facility] Comment on above:Performed By: #### PTT, PT #### [facility] [address] [place] [address] Dr. Oh Lozoya 72-19-0705uCJS Coag (Bld) [Time]27.9 yLebvbw62.3-36.2The [facility] CenterComment on above:Performed By: #### PTT, PT #### [facility] [address] [place] [address] Dr. Oh Miller, HIGH SENSITIVITYon 33-30-4814JXNBRC5.9 pg/mLNormal 4.0-76.1The [facility] CenterComment on above:Result Comment: CUT-OFF POINTS HAVE BEEN ESTABLISHED BASED ON THE FOURTH UNIVERSAL DEFINITIONS OF MYOCARDIAL INFARCTION. THE UPPER REFERENCE LIMIT (URL) OF TROPONIN, DEFINED THE 99TH PERCENTILE OF cTnI DISTRIBUTION IN A REFERENCE POPULATION, HAS BEEN CONFIRMED THE DECISION THRESHOLD FOR [place] DIAGNOSIS.Performed By: #### LIPA, CMP, HSTROPN #### [facility] [address] [place] [address] Dr. Oh DIOR ONLYon 70-66-7098DHODJHBNSIHV SEENNormalNONE SEENMercy Health West HospitalComment on above:Performed By: #### MATHIEU LASSITERRO #### [facility] [address] [place] [address] Dr. Oh Bhat identified Cx Nom (U)NOT INDICATEDNormalThe [facility] CenterComment on above:Performed By: #### AUBRIE LASSITERICRO #### [facility] [address] [place] [address] Dr. Oh Dudley SEENNormalNONE SEENMercy Health West HospitalComment on above:Performed By: #### MATHIEU LASSITERRO #### [facility] [address] [place] [address] Dr. Yilan ChangCrystals LM Nom (Urine sed)NONE SEENNormalNONE SEENThe [facility] CenterComment on above:Performed By: #### ERUR, UMICRO #### [facility] [address] [place] [address] Dr. Casiano ChangEpithelial cells LM Ql (Urine sed)FEWAbnormalNONE SEEN /RAREThe [facility] CenterComment on above:Performed By: #### SHAUNR, UMICRO #### [facility] [address] [place] [address] Dr. Oh TrotterMUCOUSMODERATEAbnormalNONE SEENThe [facility] CenterComment on above:Performed By: #### SRAVANI, UMICRO #### [facility] [address] [place] [address] Dr. Oh TrotterPyubxRGE7-2Qqjeks3-5Emc [facility] CenterComment on above:Performed By: #### SRAVANI, UMICRO #### [facility] [address] [place] [address] Dr. Oh TrotterWBCNONE SEENNormalNONE SEENThe [facility] CenterComment on above: Performed By: #### SRAVANI, UMICRO #### [facility] [address] [place] [address] Dr. Oh TrotterXR ABD FLAT UP_PA German [id number] ABD FLAT UP_PA CHEXAM: Acute abdomen series: [...] Electronically authenticated by: LUCY JEWELL Date: 2022-03-06 15:55[facility] Rehabilitation HospitalXR CSPINE 2_3 VIEWSon 37-85-1888UQ CSPINE 2_3 VIEWSEXAM: C-spine HISTORY: Neck pain [...] Electronically authenticated by: LUCY JEWELL Date: 2022-03-06 15:54NormalThGalion Hospital AUTO DIFFon [id number] #0.0 103/ulNormal0.0-0.1[facility] HospitalComment on above:Performed By: #### LIPA, CMP, HSTROPN #### [facility] [address] [place] [address] Dr. Oh TrotterBasophils/100 WBC (Bld)0.2 %Normal0.2-2.0[facility] Comment on above:Performed By: #### LIPA, CMP, HSTROPN #### [facility] [address] [place] [address] Dr. Oh Shaw #0.1 103/ulNormal0.0-0.7The [facility] CenterComment on above: Performed By: #### LIPA, CMP, HSTROPN #### [facility] [address] [place] [address] Dr. Oh Huangosinophils/100 WBC (Bld)1.0 %Normal0.9-7.0[facility] Comment on above:Performed By: #### LIPA, CMP, HSTROPN #### [facility] [address] [place] [address] Dr. Oh Huangrythrocyte distribution width (RBC) [Ratio]13.0 %Yrsqfj20.0-15.0 [facility] HospitalComment on above:Performed By: #### LIPA, CMP, HSTROPN #### [facility] [address] [place] [address] Dr. Oh TrotterHematocrit (Bld) [Volume fraction]46.6 %Pvgaou89.0-54.0The [facility] CenterComment on above:Performed By: #### LIPA, CMP, HSTROPN #### [facility] [address] [place] [address] Dr. Oh TrotterHemoglobin (Bld) [Mass/Vol]15.8 g/eLIyjzoz08.0-18.0The [facility] CenterComment on above:Performed By: #### LIPA, CMP, HSTROPN #### [facility] [address] [place] [address] Dr. Oh Malave #0.02 10e3/ulNormal0.00-0.03The [facility] CenterComment on above:Performed By: #### LIPA, CMP, HSTROPN #### [facility] [address] [place] [address] Dr. Oh Malave %0.2 %Normal0.0-0.5The [facility] CenterComment on above: Performed By: #### LIPA, CMP, HSTROPN #### [facility] [address] [place] [address] Dr. Oh Aldana #1.6 103/ulNormal1.2-3.8The [facility] CenterComment on above:Performed By: #### LIPA, CMP, HSTROPN #### [facility] [address] [place] [address] Dr. Oh Orellanahocytes/100 WBC (Bld)15.3 %Critically low20.5-60.0The [facility] CenterComment on above:Performed By: #### LIPA, CMP, HSTROPN #### [facility] [address] [place] [address] Dr. Oh SaldanaUAL DIFF REQNONormalThe [facility] CenterComment on above: Performed By: #### LIPA, CMP, HSTROPN #### [facility] [address] [place] [address] Dr. Oh Valentin (RBC) [Entitic mass]30.1 pwKkdsqe75.9-34.0The [facility] CenterComment on above:Performed By: #### LIPA, CMP, HSTROPN #### [facility] [address] [place] [address] Dr. Oh Lau (RBC) [Mass/Vol]33.9 g/vJMdgcwn85.9-35.2The [facility] CenterComment on above:Performed By: #### LIPA, CMP, HSTROPN #### [facility] [address] [place] [address] Dr. Oh Lau (RBC) [Entitic vol]88.8 pVTbkgar16.0-94.0The [facility] CenterComment on above:Performed By: #### LIPA, CMP, HSTROPN #### [facility] [address] [place] [address] Dr. Oh Johnson #0.7 103/ulNormal0.3-0.8The [facility] CenterComment on above:Performed By: #### LIPA, CMP, HSTROPN #### [facility] [address] [place] [address] Dr. Oh Cedeñoocytes/100 WBC (Bld)6.8 %Normal1.7-12.0[facility] Comment on above:Performed By: #### LIPA, CMP, HSTROPN #### [facility] [address] [place] [address] Dr. Oh Cruz #7.9 103/ulCritically high1.4-6.5The [facility] Comment on above:Performed By: #### LIPA, CMP, HSTROPN #### [facility] [address] [place] [address] Dr. Oh Velazquezutrophils/100 WBC (Bld)76.5 %Critically high43.0-75.0The [facility] CenterComment on above:Performed By: #### LIPA, CMP, HSTROPN #### [facility] [address] [place] [address] Dr. Oh Holmanlet mean volume (Bld) [Entitic vol]9.5 fLNormal9.5-13.5The [facility] CenterComment on above:Performed By: #### LIPA, CMP, HSTROPN #### [facility] [address] [place] [address] Dr. Oh TrotterPLT191 103/fvOkxayb866-014Nuj [facility] CenterComment on above: Performed By: #### LIPA, CMP, HSTROPN #### [facility] [address] [place] [address] Dr. Oh TrotterRBC5.25 106/ulNormal4.70-6.10The [facility] CenterComment on above:Performed By: #### LIPA, CMP, HSTROPN #### [facility] [address] [place] [address] Dr. Oh TrotterWBC10.4 103/ulNormal4.0-11.0The [facility] CenterComment on above:Performed By: #### LIPA, CMP, HSTROPN #### [facility] [address] [place] [address] Dr. Oh TrotterPROF CHEM 8 (BAS METB)on 62-25-2302Hohtf gap [Moles/Vol]9.7 mmol/LNormalThe [facility] CenterComment on above:Performed By: #### LIPA, CMP, HSTROPN #### [facility] [address] [place] [address] Dr. Oh TrotterCalcium [Mass/Vol]8.9 mg/dLNormal8.5-10.1The [facility] Comment on above:Performed By: #### LIPA, CMP, HSTROPN #### [facility] [address] [place] [address] Dr. Oh TrotterChloride [Moles/Vol]102 mmol/DJvojqk52-281Oja [facility] Comment on above:Performed By: #### LIPA, CMP, HSTROPN #### [facility] [address] [place] [address] Dr. Oh TrotterCO2 [Moles/Vol]29.1 mmol/HXbgijj44.0-32.0[facility] Comment on above:Performed By: #### LIPA, CMP, HSTROPN #### [facility] [address] [place] [address] Dr. Oh TrotterCreatinine [Mass/Vol]1.10 mg/dLNormal0.70-1.30The [facility] CenterComment on above:Performed By: #### LIPA, CMP, HSTROPN #### [facility] [address] [place] [address] Dr. Oh HuangGFR-AF CHINESE>60Normal>=60The [facility] CenterComment on above:Performed By: #### LIPA, CMP, HSTROPN #### [facility] [address] [place] [address] Dr. Oh HuangGFR-NON AF CHINESE>60Normal>=60The [facility] CenterComment on above:Performed By: #### LIPA, CMP, HSTROPN #### [facility] [address] [place] [address] Dr. Oh TrotterGlucose [Mass/Vol]114 mg/dLCritically nmbs54-646Zjn [facility] CenterComment on above:Performed By: #### LIPA, CMP, HSTROPN #### [facility] [address] [place] [address] Dr. Oh TrotterPotassium [Moles/Vol]3.8 mmol/LNormal3.5-5.1[facility] Comment on above:Performed By: #### LIPA, CMP, HSTROPN #### [facility] [address] [place] [address] Dr. Oh TrotterSodium [Moles/Vol]137 mmol/POfxqde541-389Yaz [facility] Comment on above:Performed By: #### LIPA, CMP, HSTROPN #### [facility] [address] [place] [address] Dr. Oh TrotterUrea nitrogen [Mass/Vol]10.0 mg/dLNormal7.0-18.0The [facility] CenterComment on above:Performed By: #### LIPA, CMP, HSTROPN #### [facility] [address] [address] [address] Oh Amador nitrogen/Creatinine [Mass ratio]9.1 mg/mgNormalThe [facility] CenterComment on above:Performed By: #### LIPA, CMP, HSTROPN #### [facility] [address] [address] [address] Oh Chris SUKUMAR ADMITon [id number] [Catalytic activity/Vol]97 U/L Ebolxq58-070Rze Peoples Hospitalment on above:Performed By: #### LIPA, CMP, HSTROPN #### [facility] [address] [address] [address] Oh Garcias.MB [Mass/Vol]0.75 ng/mLNormal<=3.60The [facility] Comment on above:Performed By: #### LIPA, CMP, HSTROPN #### [facility] [address] [place] [address] Dr. Oh TrotterHSTROP4.4 pg/mLNormal4.0-76.1The [facility] on above:Result Comment: CUT-OFF POINTS HAVE BEEN ESTABLISHED BASED ON THE FOURTH UNIVERSAL DEFINITIONS OF MYOCARDIAL INFARCTION. THE UPPER REFERENCE LIMIT (URL) OF TROPONIN, DEFINED THE 99TH PERCENTILE OF cTnI DISTRIBUTION IN A REFERENCE POPULATION, HAS BEEN CONFIRMED THE DECISION THRESHOLD FOR [place] DIAGNOSIS.Performed By: #### LIPA, CMP, HSTROPN #### [facility] [address] [place] [address] Dr. Oh TrotterMYO54 ng/zVUlctmk89-24Ajo Peoples Hospitalment on above: Performed By: #### LIPA, CMP, HSTROPN #### [facility] [address] [place] [address] Dr. Oh Bonilla AUTO DIFFon 34-25-5920ZRHP #0.0 103/ulNormal0.0-0.1The [facility] on above:Performed By: #### PTT, PT #### [facility] [address] [place] [address] Dr. Oh TrotterBasophils/100 WBC (Bld)0.1 %Critically low0.2-2.0The [facility] on above:Performed By: #### PTT, PT #### [facility] [address] [place] [address] Dr. Oh Shaw #0.0 103/ulNormal0.0-0.7The [facility] CenterComment on above: Performed By: #### PTT, PT #### [facility] [address] [place] [address] Dr. Oh Huangosinophils/100 WBC (Bld)0.3 %Critically low0.9-7.0The [facility] on above:Performed By: #### PTT, PT #### [facility] [address] [place] [address] Dr. Oh Huangrythrocyte distribution width (RBC) [Ratio]12.5 %Qxptrx42.0-15.0 The [facility] on above:Performed By: #### PTT, PT #### [facility] [address] [place] [address] Dr. Oh TrotterHematocrit (Bld) [Volume fraction]47.1 %Mrppma18.0-54.0The [facility] on above:Performed By: #### PTT, PT #### [facility] [address] [place] [address] Dr. Oh TrotterHemoglobin (Bld) [Mass/Vol]16.7 g/vVQfhkpm80.0-18.0The [facility] on above:Performed By: #### PTT, PT #### [facility] [address] [place] [address] Dr. Oh Malave #0.02 10e3/ulNormal0.00-0.03The [facility] on above:Performed By: #### PTT, PT #### [facility] [address] [place] [address] Dr. Oh TrotterIG %0.3 %Normal0.0-0.5The [facility] CenterComment on above: Performed By: #### PTT, PT #### [facility] [address] [place] [address] Dr. Oh Aldana #2.3 103/ulNormal1.2-3.8The [facility] CenterComment on above:Performed By: #### PTT, PT #### [facility] [address] [place] [address] Dr. Oh Orellanahocytes/100 WBC (Bld)31.7 %Rofajx06.5-60.0The [facility] CenterComment on above:Performed By: #### PTT, PT #### [facility] [address] [place] [address] Dr. Oh Smith DIFF REQNONormalThe [facility] CenterComment on above: Performed By: #### PTT, PT #### [facility] [address] [place] [address] Dr. Oh Valentin (RBC) [Entitic mass]29.9 nhCrcawu16.9-34.0The [facility] CenterComment on above:Performed By: #### PTT, PT #### [facility] [address] [place] [address] Dr. Oh Lau (RBC) [Mass/Vol]35.5 g/dLCritically high29.9-35.2The [facility] CenterComment on above:Performed By: #### PTT, PT #### [facility] [address] [place] [address] Dr. Oh Sahni (RBC) [Entitic vol]84.4 uEVimwop05.0-94.0The [facility] CenterComment on above:Performed By: #### PTT, PT #### [facility] [address] [place] [address] Dr. Oh Johnson #0.4 103/ulNormal0.3-0.8The [facility] CenterComment on above:Performed By: #### PTT, PT #### [facility] [address] [place] [address] Dr. Oh Cedeñoocytes/100 WBC (Bld)4.9 %Normal1.7-12.0The [facility] Comment on above:Performed By: #### PTT, PT #### [facility] [address] [place] [address] Dr. Oh Cruz #4.6 103/ulNormal1.4-6.5The [facility] CenterComment on above:Performed By: #### PTT, PT #### [facility] [address] [place] [address] Dr. Oh Velazquezutrophils/100 WBC (Bld)62.7 %Pmxekm27.0-75.0The [facility] CenterComment on above:Performed By: #### PTT, PT #### [facility] [address] [place] [address] Dr. Oh Holmanlet mean volume (Bld) [Entitic vol]10.3 fLNormal9.5-13.5The [facility] CenterComment on above:Performed By: #### PTT, PT #### [facility] [address] [place] [address] Dr. Oh TrotterPLT225 103/xyAobyhw721-171Oxt [facility] CenterComment on above: Performed By: #### PTT, PT #### [facility] [address] [place] [address] Dr. Oh TrotterRBC5.58 106/ulNormal4.70-6.10The [facility] CenterComment on above:Performed By: #### PTT, PT #### [facility] [address] [place] [address] Dr. Oh TrotterWBC7.3 103/ulNormal4.0-11.0The [facility] CenterComment on above: Performed By: #### PTT, PT #### [facility] [address] [place] [address] Dr. Oh Delgado-DIMERon 35-94-2110W-DIMER<0.19Normal<=0.59The [facility] Comment on above:Performed By: #### PTT, PT #### [facility] [address] [place] [address] Dr. Oh TrotterD-DIMER COMMENTSSEE BELOWNormProvidence Hospital on above:Result Comment: Increases in D-Dimer [...] hospitalization. Performed By: #### PTT, PT #### [facility] [address] [place] [address] Dr. Oh TrotterLIPASEon 86-99-8534Vdmaur [Catalytic activity/Vol]127.0 U/LNormal 73.0-393.0The [facility] Hospitalment on above:Performed By: #### LIPA, CMP, HSTROPN #### [facility] [address] [place] [address] Dr. Oh TrotterPROF 14(COMP METB)on 06-48-5477Xkvqdfu [Mass/Vol]4.0 g/dLNormal 3.4-5.0The [facility] on above:Performed By: #### LIPA, CMP, HSTROPN #### [facility] [address] [place] [address] Dr. Oh TrotterAlbumin/Globulin [Mass ratio]0.9 {ratio}NormalThe [facility] on above:Performed By: #### LIPA, CMP, HSTROPN #### [facility] [address] [place] [address] Dr. Oh Sheets [Catalytic activity/Vol]73 U/OMptmjx15-256Unq [facility] on above:Performed By: #### LIPA, CMP, HSTROPN #### [facility] [address] [place] [address] Dr. Oh Negron [Catalytic activity/Vol]45 U/QLvvxjk72-34Uzj [facility] CenterComment on above:Performed By: #### LIPA, CMP, HSTROPN #### [facility] [address] [address] [address] Oh TrotterAnion gap [Moles/Vol]15.4 mmol/LNormalMercy Health [facility] Hospital Comment on above:Performed By: #### LIPA, CMP, HSTROPN #### [facility] [address] [address] [address] Oh TrotterAST [Catalytic activity/Vol]25 U/TUpzopm21-93Rsl [facility] CenterComment on above:Performed By: #### LIPA, CMP, HSTROPN #### [facility] [address] [place] [address] Dr. Oh TrotterBilirubin [Mass/Vol]0.9 mg/dLNormal0.2-1.0[facility] Comment on above:Performed By: #### LIPA, CMP, HSTROPN #### [facility] [address] [place] [address] Dr. Oh TrotterCalcium [Mass/Vol]9.3 mg/dLNormal8.5-10.1[facility] Comment on above:Performed By: #### LIPA, CMP, HSTROPN #### [facility] [address] [place] [address] Dr. Oh TrotterChloride [Moles/Vol]103 mmol/YCearzw63-289UpaMercy Health West Hospital Comment on above:Performed By: #### LIPA, CMP, HSTROPN #### [facility] [address] [place] [address] Dr. Oh TrotterCO2 [Moles/Vol]20.4 mmol/LCritically low21.0-32.0The [facility] CenterComment on above:Performed By: #### LIPA, CMP, HSTROPN #### [facility] [address] [place] [address] Dr. Oh TrotterCreatinine [Mass/Vol]1.17 mg/dLNormal0.70-1.30The [facility] HospitalComment on above:Performed By: #### LIPA, CMP, HSTROPN #### [facility] [address] [address] [address] Oh HuangGFR-AF CHINESE>60Normal>=60The [facility] CenterComment on above:Performed By: #### LIPA, CMP, HSTROPN #### [facility] [address] [address] [address] Oh HuangGFR-NON AF CHINESE>60Normal>=60The [facility] CenterComment on above:Performed By: #### LIPA, CMP, HSTROPN #### [facility] [address] [place] [address] Dr. Oh TrotterGlobulin (S) [Mass/Vol]4.6 g/dLNormalThe [facility] CenterComment on above:Performed By: #### LIPA, CMP, HSTROPN #### [facility] [address] [place] [address] Dr. Oh TrotterGlucose [Mass/Vol]127 mg/dLCritically ncrp18-386Yzt [facility] CenterComment on above:Performed By: #### LIPA, CMP, HSTROPN #### [facility] [address] [place] [address] Dr. Oh TrotterPotassium [Moles/Vol]3.8 mmol/LNormal3.5-5.1The [facility] Comment on above:Performed By: #### LIPA, CMP, HSTROPN #### [facility] [address] [place] [address] Dr. Oh TrotterProtein [Mass/Vol]8.6 g/dLCritically high6.4-8.2The [facility] CenterComment on above:Performed By: #### LIPA, CMP, HSTROPN #### [facility] [address] [place] [address] Dr. Oh TrotterSodium [Moles/Vol]135 mmol/LCritically bkq119-305Cvd [facility] CenterComment on above:Performed By: #### LIPA, CMP, HSTROPN #### [facility] [address] [address] [address] Oh TrotterUrea nitrogen [Mass/Vol]12.0 mg/dLNormal7.0-18.0The [facility] CenterComment on above:Performed By: #### LIPA, CMP, HSTROPN #### [facility] [address] [address] [address] Oh TrotterUrea nitrogen/Creatinine [Mass ratio]10.3 mg/mgNoDiley Ridge Medical CenterComment on above:Performed By: #### LIPA, CMP, HSTROPN #### [facility] [address] [address] [address] Oh TrotterXR CHEST 1 Von 00-09-1598DE CHEST 1 VEXAM: XR CHEST 1 V [...] Electronically authenticated by: GALDINO ARROYO Date: 2021-10-16 13:09[facility] HospitalBNFormerly Named [facility] 47-12-0190Vehdkorniei peptide B (Bld) [Mass/Vol]9.0 pg/mL Normal<=450.0The [facility] on above:Performed By: #### HSTROPN, TSH, BNP, CMP #### [facility] [address] [place] [address] Dr. Oh TrotterCBC AUTO DIFFon 22-81-3766NQYK #0.0 103/ulNormal0.0-0.1The [facility] on above:Performed By: #### LIPA, CMP, HSTROPN #### [facility] [address] [place] [address] Dr. Oh TrotterBasophils/100 WBC (Bld)0.1 %Critically low0.2-2.0The [facility] HospitalComment on above:Performed By: #### LIPA, CMP, HSTROPN #### [facility] [address] [place] [address] Dr. Oh Shaw #0.1 103/ulNormal0.0-0.7The [facility] on above: Performed By: #### LIPA, CMP, HSTROPN #### [facility] [address] [place] [address] Dr. Oh Huangosinophils/100 WBC (Bld)0.6 %Critically low0.9-7.0The [facility] on above:Performed By: #### LIPA, CMP, HSTROPN #### [facility] [address] [place] [address] Dr. Oh Huangrythrocyte distribution width (RBC) [Ratio]12.5 %Uhlclg10.0-15.0 The [facility] on above:Performed By: #### LIPA, CMP, HSTROPN #### [facility] [address] [place] [address] Dr. Oh TrotterHematocrit (Bld) [Volume fraction]48.3 %Rmlgam78.0-54.0The [facility] on above:Performed By: #### LIPA, CMP, HSTROPN #### [facility] [address] [place] [address] Dr. Oh TrotterHemoglobin (Bld) [Mass/Vol]16.7 g/oSPbivqz26.0-18.0The [facility] on above:Performed By: #### LIPA, CMP, HSTROPN #### [facility] [address] [place] [address] Dr. Oh Malave #0.01 10e3/ulNormal0.00-0.03The [facility] on above:Performed By: #### LIPA, CMP, HSTROPN #### [facility] [address] [place] [address] Dr. Oh Malave %0.1 %Normal0.0-0.5The [facility] CenterComment on above: Performed By: #### LIPA, CMP, HSTROPN #### [facility] [address] [place] [address] Dr. Oh Aldana #3.5 103/ulNormal1.2-3.8The [facility] on above:Performed By: #### LIPA, CMP, HSTROPN #### [facility] [address] [place] [address] Dr. Oh Orellanahocytes/100 WBC (Bld)38.8 %Tmmzmi26.5-60.0The [facility] CenterComment on above:Performed By: #### LIPA, CMP, HSTROPN #### [facility] [address] [place] [address] Dr. Oh Smith DIFF REQNONormalThe [facility] CenterComment on above: Performed By: #### LIPA, CMP, HSTROPN #### [facility] [address] [place] [address] Dr. Oh Lau (RBC) [Entitic mass]29.3 ucDahbif93.9-34.0The [facility] on above:Performed By: #### LIPA, CMP, HSTROPN #### [facility] [address] [place] [address] Dr. Oh Lau (RBC) [Mass/Vol]34.6 g/wFAlwjfx07.9-35.2The [facility] CenterComment on above:Performed By: #### LIPA, CMP, HSTROPN #### [facility] [address] [place] [address] Dr. Oh Lau (RBC) [Entitic vol]84.9 nTRkihkd87.0-94.0The [facility] on above:Performed By: #### LIPA, CMP, HSTROPN #### [facility] [address] [place] [address] Dr. Oh Johnson #0.5 103/ulNormal0.3-0.8The [facility] on above:Performed By: #### LIPA, CMP, HSTROPN #### [facility] [address] [address] [address] Oh Cedeñoocytes/100 WBC (Bld)5.4 %Normal1.7-12.0The [facility] Comment on above:Performed By: #### LIPA, CMP, HSTROPN #### [facility] [address] [place] [address] Dr. Oh VelazquezUT #4.9 103/ulNormal1.4-6.5The [facility] on above:Performed By: #### LIPA, CMP, HSTROPN #### [facility] [address] [place] [address] Dr. Oh Velazquezutrophils/100 WBC (Bld)55.0 %Vhqref60.0-75.0The [facility] on above:Performed By: #### LIPA, CMP, HSTROPN #### [facility] [address] [place] [address] Dr. Oh TrotterPlatelet mean volume (Bld) [Entitic vol]9.7 fLNormal9.5-13.5The [facility]ment on above:Performed By: #### LIPA, CMP, HSTROPN #### [facility] [address] [place] [address] Dr. Oh TrotterPLT227 103/mcTtdjwc253-566Phf [facility] Hospitalment on above: Performed By: #### LIPA, CMP, HSTROPN #### [facility] [address] [place] [address] Dr. Oh TrotterRBC5.69 106/ulNormal4.70-6.10The [facility] on above:Performed By: #### LIPA, CMP, HSTROPN #### [facility] [address] [place] [address] Dr. Oh TrotterWBC8.9 103/ulNormal4.0-11.0The [facility] on above: Performed By: #### LIPA, CMP, HSTROPN #### [facility] [address] [address] [address] Oh Delgado-DIMERon 73-33-9924D-DIMER0.19 mg/L FEUNormal<=0.59The [facility] on above:Performed By: #### LIPA, CMP, HSTROPN #### [facility] [address] [place] [address] Dr. Oh Delgado-DIMER COMMENTSSEE [facility] on above:Result Comment: Increases in D-Dimer concentration [...] Performed By: #### LIPA, CMP, HSTROPN #### [facility] [address] [place] [address] Dr. Oh TrotterPROF 14(COMP METB)on 34-02-4904Ziyucty [Mass/Vol]3.9 g/dLNormal 3.4-5.0The [facility] on above:Performed By: #### HSTROPN, TSH, BNP, CMP #### [facility] [address] [place] [address] Dr. Oh TrotterAlbumin/Globulin [Mass ratio]0.8 {ratio}NormalThe [facility] on above:Performed By: #### HSTROPN, TSH, BNP, CMP #### [facility] [address] [place] [address] Dr. Oh Sheets [Catalytic activity/Vol]73 U/AHlnrbv09-953FthSelect Medical Specialty [facility] on above:Performed By: #### HSTROPN, TSH, BNP, CMP #### [facility] [address] [place] [address] Dr. Oh Negron [Catalytic activity/Vol]48 U/TWqmiln15-83Gut [facility] CenterComment on above:Performed By: #### HSTROPN, TSH, BNP, CMP #### [facility] [address] [address] [address] Oh Smithon gap [Moles/Vol]14.9 mmol/LNormalMercy Health West Hospital Comment on above:Performed By: #### HSTROPN, TSH, BNP, CMP #### [facility] [address] [place] [address] Dr. Oh TrotterAST [Catalytic activity/Vol]22 U/GDkbldh67-13Iqp [facility] CenterComment on above:Performed By: #### HSTROPN, TSH, BNP, CMP #### [facility] [address] [place] [address] Dr. Oh TrotterBilirubin [Mass/Vol]0.4 mg/dLNormal0.2-1.0[facility] Comment on above:Performed By: #### HSTROPN, TSH, BNP, CMP #### [facility] [address] [place] [address] Dr. Oh TrotterCalcium [Mass/Vol]9.2 mg/dLNormal8.5-10.1[facility] Comment on above:Performed By: #### HSTROPN, TSH, BNP, CMP #### [facility] [address] [address] [address] Oh TrotterChloride [Moles/Vol]102 mmol/FMzsqor00-460Glx [facility] Comment on above:Performed By: #### HSTROPN, TSH, BNP, CMP #### [facility] [address] [place] [address] Dr. Oh TrotterCO2 [Moles/Vol]23.7 mmol/ZZsdtvi32.0-32.0The [facility] Comment on above:Performed By: #### HSTROPN, TSH, BNP, CMP #### [facility] [address] [place] [address] Dr. Yilan ChangCreatinine [Mass/Vol]1.14 mg/dLNormal0.70-1.30The [facility] CenterComment on above:Performed By: #### HSTROPN, TSH, BNP, CMP #### [facility] [address] [address] [address] Oh HuangGFR-AF CHINESE>60Normal>=60The [facility] CenterComment on above:Performed By: #### HSTROPN, TSH, BNP, CMP #### [facility] [address] [address] [address] Oh HuangGFR-NON AF CHINESE>60Normal>=60The [facility] CenterComment on above:Performed By: #### HSTROPN, TSH, BNP, CMP #### [facility] [address] [place] [address] Dr. Oh TrotterGlobulin (S) [Mass/Vol]4.7 g/dLNormalThe [facility] CenterComment on above:Performed By: #### HSTROPN, TSH, BNP, CMP #### [facility] [address] [place] [address] Dr. Oh TrotterGlucose [Mass/Vol]120 mg/dLCritically qrmy61-037Xol [facility]ment on above:Performed By: #### HSTROPN, TSH, BNP, CMP #### [facility] [address] [place] [address] Dr. Oh TrotterPotassium [Moles/Vol]3.6 mmol/LNormal3.5-5.1The [facility] Comment on above:Performed By: #### HSTROPN, TSH, BNP, CMP #### [facility] [address] [place] [address] Dr. Oh TrotterProtein [Mass/Vol]8.6 g/dLCritically high6.4-8.2The [facility] CenterComment on above:Performed By: #### HSTROPN, TSH, BNP, CMP #### [facility] [address] [place] [address] Dr. Oh TrotterSodium [Moles/Vol]137 mmol/AFmdonj394-572[facility] Comment on above:Performed By: #### HSTROPN, TSH, BNP, CMP #### [facility] [address] [place] [address] Dr. Oh Amador nitrogen [Mass/Vol]12.0 mg/dLNormal7.0-18.0[facility] HospitalComment on above:Performed By: #### HSTROPN, TSH, BNP, CMP #### [facility] [address] [place] [address] Dr. Oh Amador nitrogen/Creatinine [Mass ratio]10.5 mg/mgNoDiley Ridge Medical CenterComment on above:Performed By: #### HSTROPN, TSH, BNP, CMP #### [facility] [address] [place] [address] Dr. Oh Frey 84-34-4671KYP Coag (PPP) [Relative time]0.94 {INR} NormalThe [facility] CenterComment on above:Performed By: #### LIPA, CMP, HSTROPN #### [facility] [address] [place] [address] Dr. Oh Coy GUIDELINESSEE BELOWSelect Medical TriHealth Rehabilitation HospitalComment on above:Result Comment: DESIRED INR: 2.0 - 3.0 CONDITIONS NOT LISTED BELOW 2.5 - 3.5 FOR PROSTHETIC HEART VALVE REPLACEMENT 2.5 - 3.5 RECURRENT THROMBOSIS Performed By: #### LIPA, CMP, HSTROPN #### [facility] [address] [place] [address] Dr. Oh TrotterPT Coag (PPP) [Time]10.2 sNormal9.0-11.6The [facility] Comment on above:Performed By: #### LIPA, CMP, HSTROPN #### [facility] [address] [place] [address] Dr. Oh Lozoya 55-62-9399tGXB Coag (Bld) [Time]26.6 pPtphgz57.3-36.2[facility] HospitalComment on above:Performed By: #### LIPA, CMP, HSTROPN #### [facility] [address] [address] [address] Oh Miller, HIGH SENSITIVITYon 17-13-7881IVNSEW3.4 pg/mLCritically low4.0-76.1[facility] on above:Result Comment: CUT-OFF POINTS HAVE BEEN ESTABLISHED BASED ON THE FOURTH UNIVERSAL DEFINITIONS OF MYOCARDIAL INFARCTION. THE UPPER REFERENCE LIMIT (URL) OF TROPONIN, DEFINED THE 99TH PERCENTILE OF cTnI DISTRIBUTION IN A REFERENCE POPULATION, HAS BEEN CONFIRMED THE DECISION THRESHOLD FOR [place] DIAGNOSIS.Performed By: #### PTT, PT #### [facility] [address] [place] [address] Dr. Oh Khanna 08-62-7210NKE4.085 uIU/mLNormal0.358-3.740The [facility] on above:Performed By: #### HSTROPN, TSH, BNP, CMP #### [facility] [address] [place] [address] Dr. Oh Reid [facility] BELOWSelect Medical TriHealth Rehabilitation HospitalComment on above: Result Comment: <0.34 UIU/ml HYPERTHYROID 0.34-5.60 UIU/ml EUTHYROID >5.60 UIU/ml HYPOTHYROIDPerformed By: #### HSTROPN, TSH, BNP, CMP #### [facility] [address] [place] [address] Dr. Oh TrotterXR ABD FLAT UP_PA German 12-59-8343KK ABD FLAT UP_PA CHEXAMINATION: XR ABD FLAT [...] Electronically authenticated by: OTTO POLANCO Date: 2021-09-15 19:35[facility] Rehabilitation HospitalXR CHEST 1 Von 45-60-1773AB CHEST 1 VCXR HISTORY: Shortness of breath. [...] Electronically authenticated by: ELIZABETH TURNER Date: 2021-09-06 23:38[facility] Vital Signs Date TimeVital SignValuePerforming AdshhpohrWxedgeak06-40-0280 03:47-0400 Diastolic blood ludivfwk81 mm[Hg]Nidal Choujaa DO Work Phone: [phone] [place], [place] [address]47[address]10-05-2025 03:47-0400 Heart rate88 /minNidal Choujaa DO Work Phone: [phone]10-05-2025 03:47-0400 Respiratory rate14 /minNidal Choujaa DO Work Phone: [phone]10-05-2025 03:47-0400 SaO2% (BldA) [Mass fraction]97 %Nidal Choujaa DO Work Phone: [phone]10-05-2025 03:47-0400 Systolic blood mm[Hg]Nidal Choujaa DO Work Phone: [phone] [place], [place] [address]10-05-2025 00:47-0400 Body kzikxbmdlgx92.7 [degF]Nidal Choujaa DO Work Phone: [phone]10-05-2025 00:46-0400 Body scqahx840.96 cmNidal Choujaa DO Work Phone: [phone]10-05-2025 00:46-0400 Body koefqw593.9 kgNidal Choujaa DO Work Phone: [facility]2024 15:26-0400 Blood Pressure LocationMichael NILL 632-2621Qyioyy-Xvhvj General Surgery Fhupghuw09-05-3442 15:26-0400Diastolic blood thxiqogb76 mm[Hg]Lucy NILL 595-9729Bozdck-Nluaj General Surgery Ftrncovi65-56-0897 15:26-0400Heart rate80 /minMichael NILL 942-8007Fwwogn-YgtcqProtestant Hospital2024 15:26-0400Respiratory rate16 /minMichael NILL 966-5032Mgzjqm-IkkvkProtestant Hospital2024 15:26-0400Systolic blood ewhiojoz374 mm[Hg]Lucy NILL [phone]-JzlysProtestant Hospital Encounters Encounter DateEncounter TypeCare ProviderFacilityStart: 02-04-2025 End: 28-98-9053Itxnfzvzd department patient visitNidal Choriedjaa DO Work Phone: [phone]-Wqhhzgsmw Room Work Phone: Start: 03-14-2024 End: 12-62-6942uczefsdawrSPTQYKNKettering Health Washington Townshiptart: 84-44-5502hdtmmohaveCJNMXPADJ EMERITASheltering Arms Hospitaltart: 02-29-2024 End: 72-15-6892vdlzcqeqnoAZOFOLDCherrington Hospitaltart: 02-23-2024 End: 53-84-7118ghaksakctqKVTJFAPCherrington Hospitaltart: 12-21-2023 End: 72-16-1490yyrsvbtkrbUrachks R NILLFacility:[facility] Health Prebletart: 12-21-2023 End: 49-17-8028Ortkiog encounter procedureMichael R NILL [phone]-Tmzih General Surgery [place] Start: 08-09-2022 End: 85-26-3360qwlpnkeflvHSFCFY CRAMERFacility:R8Zolcw: 07-28-2022 End: 45-21-8599fbrpragpcuQUSUJO CRAMERFacility:K5Soyne: 06-24-2022 End: 09-86-4755jbxorhjiguXH LUCY PAN .Facility:G1Qibgb: 05-23-2022 End: 97-43-1436koyjeghmxmZYFZXO CRAMERFacility:A6Ltpkz: 05-11-2022 End: 22-34-7828zhshqvfsnwEMYWQR CRAMERFacility:D0Yrdsw: 05-02-2022 End: 79-41-5642cpdtwwuwitMJXSTU CRAMERFacility:X3Azmqs: 03-30-2022 End: 75-15-7342tasmxrxhgtOA REGGIE ANDREINABRENDA .Facility:M9Mnvcm: 03-06-2022 End: 52-01-1833hikxgbjflxMI REGGIE BUTLER .Facility:I1Nnboh: 11-01-2021 End: 61-31-2412ywxdjhapvlVCMCC PARKERFacility:C4Nthcr: 10-16-2021 End: 38-52-3180hcsuunzlwvVWHRAY ANTONI .Facility:R9Kdhxe: 09-15-2021 End: 43-74-8566ixfqxxmacqNM NONE LISTED REQUESTFacility:A4Xkddx: 09-11-2021 End: 62-63-4034unfmmlnhqgCHYLTEM YAROSHFacility:Q9Ukwsx: 09-07-2021 End: 17-24-4415swzwxchkfpCH SUKUMAR NAIRFacility:H1 Procedures DateProcedureProcedure DetailPerforming ClinicianStart: 51-63-1189Kraxprohxid Lucy PAN Start: 94-85-8224Wiebxop ablation using fluoroscopy guidanceMichael NILL CholecystectomyMichael NILL Plan of Treatment DateCare ActivityDetailAuthorStart: 22-88-7024Fbtowjyp identified in Blood by CultureBlood CultureSelect Medical Specialty Hospital - Akrontart: 51-13-2413EoutismueSelect Medical Specialty Hospital - Akrontart: 03-35-9610LF Head WO contrastSelect Medical Specialty Hospital - Akrontart: 13-35-6712DI of head without contrastCT head stroke alert wo [facility]. Anthony's Hospitaltart: 33-30-5427Dzucualegpjb consultation with patientMercy HealthPatient Education Weakness - ED discharge instructionsMercy Health Tiffin Hospital Ctr Work Phone: Patient referralMercy Health Tiffin Hospital Ctr Work Phone: Immunizations Immunization DateImmunizationNotesCare ProviderFacilityNEGATED: Highlighted row has not occurred!70-49-2786dvebupvwj virus vaccine, unspecified formulation Lucy PAN [phone]-Ipdgu General Surgery [facility] DatePayer CategoryPayerPolicy [id number] 2.0.1.969157.3.57[id number] 2..1.102744.3.579.2.00866-97-6834Hmrvvqx8404966 2.0.1.446149.3.579.[id number] 2.0.1.013094.3.579.2.24410-07-3843Buotzbg7442270 2.0.1.166786.3.579.2.46719-79-3458Cpfexaw4709943 2.0.1.538711.3.579.2.36203-01-5523Pfwsxll1349912 2.840.1.573415.3.579.[id number] 2.840.1.001908.3.579.2.51175-86-6441Zhkpjwb8253277 2..840.1.458264.3.579.[id number] 2.16.840.1.351800.3.579.2.47088-42-9029Wgvqpmt9100459 2..0.1.193673.3.579.2.07924-37-8058Yzafgtp5180699 2..0.1.545002.3.57[id number] 2..0.1.486284.3.579.2.66303-08-8408Gumxzio891524091426 Social History DateTypeDetailFacilityStart: 26-64-0411Hdegwme smoking statusHeavy tobacco smoker (finding)[facility] HospitalueTobacco smoking statusNever City Hospital BellevueSex Assigned At [facility] Medical CenterTobacco smoking status NHISUnknown if ever smokedOur Lady Of Mercy Hospital Work Phone: SexMale (finding)[facility] Start: 54-42-6979Uua Assigned At [facility] Functional Status RdetXvdmqgxzhfQsunhwIkxzwddy95-52-9773Jnvpxhuxfe StatusN/AFRegency Hospital Toledo Clinical Notes 06-24-2022 to 03-14-2024 Note Date & FzdcOummLgzwzqij48-65-9921 NoteSubjective Patient ID: Chuck Packer is a [...] the past 36 hour(s)). No follow-ups on file.[facility]10-29-2024 NotePatient: Chuck Packer Procedure Summary Date: 02/29/24 Room / Location: [facility] OPERATING ROOM 02 / [facility] Operating Room Anesthesia Start: 0756 [...] PACU per anesthesia protocol. No notable events documented.[facility]10-29-2024 Note Airway Date/Time: 02/29/2024 8:07 AM Urgency: elective General Information and Staff Patient location during procedure: OR Anesthesiologist: Neil Song MD Resident/DATABASE SECURITY EXPERT/CAA: Facundo Rudolph MD Performed: resident/DATABASE SECURITY EXPERT/CAA Indications and Patient Condition Indications for airway [...] approach: 1 Number of other approaches attempted: 0UnBarberton [facility]-2024 NotePatient: Chuck Packer Procedure Information Date/Time: 02/29/24 0730 Procedures: EXAM UNDER ANESTHESIA, HEMORRHOIDECTOMY, DEBRIDMENT OF ANAL FISSURE Location: [facility] OPERATING ROOM 02 / [facility] Operating Room Surgeons: Urbano Rodriguez MD Relevant Problems Cardio (+) Migraines (+) Jjtwc-Zwmrmafqw-Gtzys syndrome GI (+) GERD (gastroesophageal reflux disease) [...] Depression GERD (gastroesophageal reflux disease) Morbid Obesity Fezbd-Wbhzxbwsf-Eukyv syndrome, treated with ablation as teenager, without [...] discussed with attending and resident. 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 Do not wear perfume, make-up, nail divehi, or lotions on the day of your [...] need to make any changes, please call [phone]. Notify your surgeon if you develop any illness such as a cold, cough, fever, sore throat or vomiting between now and your surgery. Thank you for entrusting us with your care. [facility] Surgical Services TeamDayton VA Medical Center10-23-2024 Note Subjective Patient ID: Chuck [...] the past 36 hour(s)). No follow-ups on file.[facility]02-22-2023 Note OPERATIVE NOTE OPERATION DATE: 06/24/2022 PREOPERATIVE DIAGNOSIS: Low abdominal and rectal pain, as well as rectal bleeding. POSTOPERATIVE DIAGNOSIS: Prominent rectal veins. PROCEDURE: Colonoscopy to cecum. SURGEON: Lcuy Pan M.D. ANESTHESIA: Monitored anesthesia care. ESTIMATED [...] room in good condition. CC: Leighann Soriano CNPMercy Health West HospitalEvaluation + Plan note No data available for this section [facility] Evaluation noteNo assessment information available [facility] Work Phone: Hospital Discharge instructions No data available for this section [facility] Hospital Discharge instructions Additional Instructions follow up with your doctor return if worseFirWhite Hospital Ctr Work Phone: Progress note No data available for this section [facility] Reason for referral (narrative)No reason for referral information availableOur Lady Of Mercy Hospital Work Phone: Summary Purpose Family History [...] section and content) DATE CREATED AUTHOR 08/11/2022 [facility] DATE CREATED AUTHOR AUTHOR'S ORGANIZ ATION 12/27/2023 [facility] DATE CREATED AUTHOR AUTHOR'S ORGANIZ ATION 03/16/2024 [facility] DATE CREATED AUTHOR AUTHOR'S ORGANIZ ATION 02/10/2025 [facility] Patient Care team informatio [...] BASED ON THE PRIMARY CLINICAL RECORDS. [facility]. provides no warranty or guarantee of the accuracy or completeness of information in this document.
[2025-04-11 13:21] LABS: Glucose Urine UA NEGATIVE (NEGATIVE)
[2025-04-11 13:25] LABS: Hematocrit 47.3 % (42.0-54.0); Hemoglobin 17.1 g/dL (14.0-18.0); Immature Granulocytes Abs Auto 0.03 10^3/uL (0.00-0.03); Immature Granulocytes Pct Auto 0.4 % (0.0-0.5); Lymphocytes Absolute Auto 1.9 10^3/uL (1.2-3.8); Mean Corpuscular HGB Conc 36.2 g/dL (29.9-35.2); Mean Corpuscular Hemoglobin 30.4 pg (25.9-34.0); Mean Corpuscular Volume 84.2 fL (80.0-94.0); Platelet Count 235 10^3/uL (150-450); Red Blood Count 5.62 10^6/uL (4.70-6.10); White Blood Count 7.1 10^3/uL (4.0-11.0)
[2025-04-11 13:28] LABS: Cast Seen? SEEN #/LPF (NONE SEEN); Crystals Seen? None Seen #/HPF (None Seen); Urine Culture Indicated YES-FRMC
[2025-04-11 13:39] LABS: Anion Gap 14.9; Blood Urea Nitrogen 11.0 mg/dL (7.0-18.0); Calcium 9.3 mg/dL (8.5-10.1); Carbon Dioxide 23.9 mmol/L (21.0-32.0); Chloride 103 mmol/L (98-107); Estimated GFR (African America >60 (>=60 mL/min/1.73m^2); Estimated GFR (Non-African Ame >60 (>=60 mL/min/1.73m^2); Glucose 152 mg/dL (74-106); Potassium 3.8 mmol/L (3.5-5.1); Sodium 138 mmol/L (136-145)
== END 2025-04-11 13:54 | disposition home or self-care (01) ==
PROVIDERS: Emergency Provider Emergency Medicine; PCP Nurse Practitioner Family
DX: F41.9 Anxiety disorder, unspecified (principal); R53.1 Weakness; Z79.899 Other long term (current) drug therapy
CPT/HCPCS: 36415; 71045; 80048; 81001; 85025; 87086; 93005; 99283

== ENCOUNTER 2025-04-16 17:20 | Emergency (ER) | payer SELFPAY ==
--- OUTSIDE RECORDS SUMMARY | 2025-04-11 19:35 | XMS_ITS | Continuity of Care Document ---
Author Organization [facility] Address [address] [place] [address] Phone Care Team Providers Care Animation Director Name Role Phone Herminio Davila DO Emergency Provider NO FAMILY, PHYSICIAN Primary Care Provider Ashok Michel DO Attending Provider [phone] Care Teams Patient Care Team Team Status: Active Member Role/Relationship Status Dates PHYSICIAN NO FAMILY Primary Care Provider Active Visit Care Team Team Status: Inactive Member Role/Relationship Status Dates Herminio Davila DO Emergency Provider Active S tart: February 04, 2025 End: February 04, 2025PHYSICIAN NO FAMILYPrimary Care ProviderActiveStart: February 04, 2025 End: February 04, 2025 Patient Care Team Team Status: Inactive Member Role/Relationship Status Dates Ashok Hare DO Attending Provider Active S tart: April 11, 2025 End: April 11, 2025 Chief Complaint and Reason for Visit Chief Complaint Admit Date stroke symptoms February 04, 2025 12 :40am Allergies, Adverse Reactions, Alerts Allergen Type Severity Reaction Last Updated Verified Status Penicillins Allergy Unknown Hives February 03, 2025 11:44pm Yes Active Sulfa (Sulfonamide Antibiotics) Allergy Unknown Hives February 03 11:44pm Yes Active strawberries Allergy Unknown hives February 03, 2025 11:44pm No Active Social History Smoking Status Status Start Date End Date Date of Observa tion Smokes tobacco daily (finding) February 04, 2025 12:40am Observation Status Observation Response Date of Response Legal Sex Male (finding) Sex Assigned At [facility] 1985 Problems Inactive/Resolved Problems Problem Diagnosis/Recorded Date Onset Date Stat us Right leg weakness February 04, 2025 3:07am Unknown Resolved Muscle weakness of right arm February 04, 2025 3:07am Unknown Resolved Procedures Procedure Date Performed Status CT head stroke alert wo con February 03, 2025 11 :42pm completed Blood Culture February 04, 2025 completed Blood Culture February 04, 2025 completed Urine Culture April 11, 2025 active Relevant Diagnostic Tests and/or Laboratory Data Laboratory Results Test Collection Date/Time Result Date/Time Result Interpretation Reference Range Result Comment Performing Site Corrected White Blood Count February 03, 2025 11:45pm February 03, 2025 11:54pm 8.9 10*3/uL 4.1-10.5F[facility] [id number] [address] [facility] [address]Mhyhiugvoqb WBC CountOctober 2024 11:45pmOctober 2024 11:54pm8.9 10*3/uL4.1-10.5FOur [facility] [id number] [address] [facility] 39[address]Vch Blood CountOctober 2024 11:45pmOctober 2024 11:54pm4.94 10*6/uL3.90-5.60[facility] [id number] [address] [facility] [address]AssrudjbpkXtblnnj 2024 11:45pmOctober 2024 11:54pm 15.2 g/dL13.0-17.0[facility] [id number] [address] [facility] [address]IldinchsheKnmxqna 2024 11:45pmOctober 2024 11:54pm 42.2 %38.8-50.0[facility] [id number] [address] [facility] [address]Nldg Corpuscular VolumeOctober 2024 11:45pmOctober 2024 11:54pm85.3 fL83.5-101[facility] [id number] [address] [facility] 00800Zntk Corpuscular HemoglobinOctober 2024 11:45pmOctober 2024 11:54pm30.8 pg27.5-35.2FOur [facility] of [facility] [id number] [address] [facility] 40416Prgw Corpuscular Hemoglobin ConcentOctober 2024 11:45pm February 03, 2025 11:54pm36.1 g/dLAbove high .5-35.6FOur [facility] of [facility] [id number] [address] [facility] [address]Wez Cell Distribution WidthOctober 2024 11:45pmOctober 2024 11:54pm13.1 %12.0-14.8[facility] [id number] [address] [facility] [address]Cvyiczcy CountOctober 2024 11:45pmOctober 2024 11:01sy040 10*3/eP862-001HgaseehxdGood Samaritan Hospital [facility]tr [id number] [address] [facility] 01403Viws Platelet VolumeOctober 2024 11:45pmOctober 2024 11:54pm8.1 fL6.6-10.1FOur [facility] of [facility] [id number] [address] [facility] 00152Wkgffauy Distribution WidthOctober 2024 11:45pmOctober 2024 11:54pm18.83 %0.00-20.00[facility] [id number] [address] [facility] [address]Cqemrekdkqt (%) (Auto)February 03, 2025 11:45pmOctober 2024 11:54pm50.4 %.[facility] [id number] [address] [facility] [address]Rxjkrrngacs (%) (Auto)February 03, 2025 11:45pmOctober 2024 11:54pm42.6 %.[facility] [id number] [address] [facility] 31431Wveouclzy (%) (Auto)February 03, 2025 11:45pmOctober 2024 11:54pm5.5 %.[facility] [id number] [address] [facility] 54999Hluhbrxrczz (%) (Auto)February 03, 2025 11:45pmOctober 2024 11:54pm0.4 %.[facility] [id number] [address] [facility] 03045Ftuzzlpxh (%) (Auto)February 03, 2025 11:45pmOctober 2024 11:54pm1.1 %.[facility] [id number] [address] [facility] 880[address]Vbwwqfjjt RBC Relative Count (auto)February 03, 2025 11:45pm February 03, 2025 11:54pm0.1 /100{WBC}0-0.5FOur [facility] [id number] [address] [facility] 6[address]Cstacktwzfr # (Auto)February 03, 2025 11:45pmOctober 2024 11:54pm4.5 10*3/uL1.8-7.7FOur [facility] [id number] [address] [facility] 97986Jgodsyumnxa # (Auto)February 03, 2025 11:45pmOctober 2024 11:54pm3.8 10*3/uL1.00-4.8[facility] [id number] [address] [facility] 13[address]Mluebepac # (Auto)February 03, 2025 11:45pmOctober 2024 11:54pm0.5 10*3/uL0.0-0.8[facility] [id number] [address] [place] [address]86[address]Nylmfguaabc # (Auto)February 03, 2025 11:45pmOctober 2024 11:54pm0.0 10*3/uL0.0-0.45[facility] [id number] [address] [place] [address] 76673Uxigipqbf # (Auto)February 03, 2025 11:45pmOctober 2024 11:54pm0.1 10*3/uL0.0-0.2FOur [facility] [id number] [address] [address]Prothrombin TimeOctober 2024 11:45pmOctober 2024 11:59pm11.5 s9.0-12.9A hematocrit value greater than 55% may lead to inaccurate results in coagulation testing. Patientshaving hematocrit values >55% require a special collection tube for coagulation studies. Please contact the laboratory at [phone] for redraw instructions.[facility] [id number] [address] [facility] [address]Zqubmbreu Time International RatioOctober 2024 11:45pm February 03, 2025 11:59pm1.0INR Therapeutic Range A) Pre- and Peroperative OAT started two weeks before surgery. NOT HIP SURGERY: 1.5 - 2.5 HIP SURGERY: 2 - 3B) Primary and secondary prevention of venous THROMBOSIS: 2 - 3C) Active venous thrombosis, pulmonary embolismand prevention of recurrent venous thrombosis: 2 - 3D) Prevention of arterial thromboembolismincluding patients with mechanical heart valves: 3 - 4.5FOur [facility] [id number] [address] [place] [address] 189[address]Zeuzhdkcb Partial Thromboplast TimeOctober 2024 11:45pm February 03, 2025 11:59pm27.9 s25.1-36.5A hematocrit value greater than 55% may lead to inaccurate results in coagulation testing. Patientshaving hematocrit values >55% require a special collection tube for coagulation studies. Please c ontact the laboratory at [phone] for redraw instructions.[facility] [id number] [address] [facility] [address]Orwnj ColorOctober 2024 12:06amOctober 2024 12:17am Light-yellowYellowGood Samaritan Hospital Ctr [id number] [address] [place] [address] 301[address]Prxto AppearanceOctober 2024 12:06amOctober 2024 12:17amClearClearFOur [facility] of [facility] [id number] [address] [place] [address] 18644Toinz Specific GravityOctober 2024 12:06amOctober 2024 12:17am1.0271.001-1.030[facility] [id number] [address] [place] [address] 85[address]Tfucu pHOctober 2024 12:06amOctober 2024 12:17am5.5 5.0-9.0[facility] [id number] [address] [place] [address]39[address]Whaan Leukocyte EsteraseOctober 2024 12:06amOctober 2024 12:17amNegativeNegativeGood Samaritan Hospital [facility]tr [id number] [address] [facility] 711[address]Ezmkn NitriteOctober 2024 12:06amOctober 2024 12:17am NegativeNegativeGood Samaritan Hospital [facility]tr [id number] [address] [facility] [address]Fdviz ProteinOctober 2024 12:06amOctober 2024 12:17am Negative mg/dLNegativeGood Samaritan Hospital [facility]tr [id number] [address] 3815[address]Urine Glucose (UA)February 04, 2025 12:06amOctober 2024 12:17amNormal mg/dLNormFayette County [facility] [id number] [address] [facility] 67[address]Kvyhf KetonesOctober 2024 12:06amOctober 2024 12:17am NegativeNegativeGood Samaritan Hospital [facility] [id number] [address] [facility] [address]Ouaju UrobilinogenOctober 2024 12:06amOctober 2024 12:17amNormal mg/dLNormFayette County [facility] [id number] [address] [facility] [address]Whywg BilirubinOctober 2024 12:06amOctober 2024 12:17amNegativeNegativeGood [facility]aritan [facility] [id number] [address] [facility] 648[address]Jfdkz Occult BloodOctober 2024 12:06amOctober 2024 12:17amTraceAbove high normalNegHolzer [facility] [id number] [address] [facility] 07652Rqooc RBCOctober 2024 12:06amOctober 2024 12:37vp5-0 [HPF]0-[facility] [id number] [address] [facility] 424[address]Dgqah WBCOctober 2024 12:06amOctober 2024 12:91xu7-1 [HPF]0-[facility] [id number] [address] [facility] 76392Tyvei Squamous Epithelial CellsOctober 2024 12:06amOctober 2024 12:75te1-0 [HPF]0-[facility] [id number] [address] [facility] [address]Vfsxq BacteriaOctober 2024 12:06amOctober 2024 12:18amNone seen [HPF]None SeenGood Samaritan Hospital Ctr [id number] [address] [facility] 77663Zbclx Hyaline CastsOctober 2024 12:06amOctober 2024 12:18amNone [LPF]0-8[facility] [id number] [address] [facility] 87287Qmdwd MucusOctober 2024 12:06amOctober 2024 12:18am Rare [LPF][facility] [id number] [address] [facility] [address]Mernsae LevelOctober 2024 11:45pmOctober 2024 12:13am 155 mg/dLAbove high -406GTE recommended reference rangeRandom Glucose Reference Range is dependent on time and content of last meal. Glucose of more than 200 mg/dL in a nonstressed, ambulatory subject supports the diagnosisof Diabetes Mellitus.[facility] [id number] [address] [facility] 239[address]Vnwsg Urea NitrogenOctober 2024 11:45pmOctober 2024 12:13am16 mg/dL7-25[facility] [id number] [address] [facility] 85886LxomgfxooiMrmvsnn 2024 11:45pmOctober 2024 12:13am 0.99 mg/dL0.70-1.30[facility] [id number] [address] [facility] 09672Dzmlnnjsk GFR (CKD-EPI)February 03, 2025 11:45pmOctober 2024 12:13am> 60.0 mL/MinGood Samaritan Hospital Ctr [id number] [address] [address]Sodium LevelOctober 2024 11:45pmOctober 2024 12:13am 136 mmol/B999-409TentrhmkvGood Samaritan Hospital Ctr [id number] [address] [place], [place] [address]Potassium LevelOctober 2024 11:45pmOctober 2024 12:13am3.7 mmol/L3.5-5.1FOur [facility] of [facility] [id number] [address] [facility] 48[address]Lanbpofh LevelOctober 2024 11:45pmOctober 2024 12:79st278 mmol/D64-065RqngmdujaGood Samaritan Hospital [facility]tr [id number] [address] [facility] 58865Venohg Dioxide LevelOctober 2024 11:45pmOctober 2024 12:13am21.6 mmol/L21.0-31.0[facility] [id number] [address] [facility] 77676Gzjof GapOctober 2024 11:45pmOctober 2024 12:13am11.1 mEq/L6.0-15.0[facility] [id number] [address] [address]Calcium LevelOctober 2024 11:45pmOctober 2024 12:13am 9.1 mg/dL8.6-10.3FOur [facility] of [facility]cy [facility] [id number] [address] [address]Total ProteinOctober 2024 11:45pmOctober 2024 12:13am 7.7 g/dL6.4-8.9[facility] [id number] [address] [facility] 09212EsjuagfQtfydzv 2024 11:45pmOctober 2024 12:13am4.1 g/dL3.5-5.7FOur Lady of [facility]cy [facility] [id number] [address] [facility] 84256TvasjhojCzqgdeh 2024 11:45pmOctober 2024 12:13am3.6 g/dLGood Samaritan Hospital [facility]tr [id number] [address] [facility] 94027Ikjpvfy/Globulin RatioOctober 2024 11:45pmOctober 2024 12:13am1.1FOur Lady of Mercy [facility] [id number] [address] [facility] 313[address]Snnhp BilirubinOctober 2024 11:45pmOctober 2024 12:13am0.5 mg/dL0.3-1.0[facility] [id number] [address] [facility] 29932Abdwnjqov Amino Transf (AST/SGOT)February 03, 2025 11:45pm February 04, 2025 12:13am20 U/B72-67DcvijepagGood Samaritan Hospital Ctr [id number] [address] [facility] 37783Bxyzwzh Aminotransferase (ALT/SGPT)February 03, 2025 11:45pm February 04, 2025 12:13am30 U/L7-52[facility] [id number] [address] [facility] 37083Hgcjqkua PhosphataseOct2024 11:45pmOctober 2024 12:13am60 U/C11-458TnwdfhjqkGood Samaritan Hospital Ctr [id number] [address] [place], [place] [address]Lactic Acid LevelOct2024 1:27amOctober 2024 1:48am0.9 mmol/L0.5-1.9Lactic Acid reference range has been updated to 0.5 ??? 1.9 mmol/L and the critical range of 2.0 orgreater.[facility] [id number] [address] [facility] 745[address]Trxga Creatine KinaseOct2024 11:45pmOct2024 12:13am78 U/W74-892DrspnjnyrGood Samaritan Hospital Ctr [id number] [address] [place] [address] 08159Cpsokltg I High SensitivityOct2024 11:45pmOct2024 12:12am5 ng/L0-20The Troponin units of report have been changed to meet the Chest Pain Accreditation requirement, element EC5.M1l2. Troponin units are changed from pg/ml to ng/L. Also, the decimal is removed and results are in whole numbers.[facility] [id number] [address] [facility] 94[address]Podqtvri Creatinine Clearance (ChemOctober 2024 11:45pm February 04, 2025 12:67br460.66[facility] [id number] [address] [facility] 095[address]Tturrim SodiumOct2024 11:47pmOctober 2024 11:74xz056 mmol/R021-627NxhrrpblnGood Samaritan Hospital [facility]tr [id number] [address] [facility] [address]Klpppqk PotassiumOctober 2024 11:47pmOctober 2024 11:50pm3.7 mmol/L3.5-4.9[facility] [id number] [address] [facility] 65374Yfujjrn ChlorideOctober 2024 11:47pmOctober 2024 11:75dr057.0 mmol/W87-593IjmknbixyGood Samaritan Hospital Ctr [id number] [address] [facility] 43836Bhtxuxk Total HU2Lbiikrc 2024 11:47pmOctober 2024 11:50pm20 mmol/LBelow low xyuajj10-33TunuwpvhiGood Samaritan Hospital Ctr [id number] [address] [facility] 074[address]Pwknqqe Ionized Calcium (Kerline)February 03, 2025 11:47pmOctober 2024 11:50pm1.17 mol/L1.12-1.32[facility] [id number] [address] [facility] 76161Oncrhhj Blood Urea NitrogenOctober 2024 11:47pmOctober 2024 11:50pm17 mg/dL8-26[facility] [id number] [address] [facility] 14349Exfjiri CreatinineOctober 2024 11:47pmOctober 2024 11:50pm1.0 mg/dL0.6-1.3ER/ESD physician is notified/shown all ISTAT results.Critical values may be confirmed by laboratorytesting ifdeemed necessary by ER attending doctor.[facility] [id number] [address] [facility] [address]Qubtwwp HematocritOctober 2024 11:47pmOctober 2024 11:50pm44.0 %38.0-51.0[facility] [id number] [address] [facility] 04197Fdxmuwx HemoglobinOctober 2024 11:47pmOctober 2024 11:50pm15.0 g/dL12.0-17.0[facility] [id number] [address] [place] [address] 54157LIK Whole Blood GlucoseOctober 2024 11:47pmOctober 2024 11:94hz705 mg/dLAbove high afecui04-880QktzhkwywGood Samaritan Hospital Ctr [id number] [address] [place] [address]10 Microbiology Results Procedure Source Result Collection Date/Time Result Date/Time Result Comment Performing Site Blood Culture Blood, Right Hand NO GROWTH 5 DAYS Octob er 2024 2:27am February 09, 2025 2:33am [facility] [id number] [address] [place] [address] 41286Wsugw CultureBlood, Right AntecubitalNO GROWTH 5 DAYSOctober 2024 2:28amOctober 2024 2:31amGood Samaritan Hospital [facility] [id number] [address] [place] [address]5047 Diagnostic Imaging Reports Author Greg Siddiqui Marion HospitalAuthoredOcthazard ar[facility] 2024 11:53amReportDictated Date/TimeDictated ByStatusRadiology ReportOctober 2024 11:53amJoseph Jr Chen DOcompHighland District Hospital Main [place] [address] [place], [place] [address] CT Scan Report Signed Patient: Tristin Castaneda MR#: [id number] : 1985 Acct:[id number] Age/Sex: 39 / M ADM Date: 5 Loc: ER Room: Type: [facility] ER Attending Dr: Copies to: Herminio Davila DO~ Ordering Provider: Herminio Davila DO Date of Service: 02/04/25 CT/CT head stroke alert wo con: stroke CT BRAIN WITHOUT CONTRAST: CLINICAL HISTORY: Right leg tingling headache. COMPARISON: None TECHNIQUE: Contiguous axial unenhanced images were obtained through the brain. This CT exam was performed using one or more following dose reduction techniques: Automated exposure control, adjustment of the mA and/or kV according to [...] 11:55 AM Dictation Location: RADIO-PC-18 Transcribed By: PWS 02/04/25 1155 Dictated By: Greg Siddiqui Jr, DO 02/04/25 1153 Signed By: <Electronically signed by Greg Siddiqui Jr, DO in OV> 02/04/25 115 Vital Signs Vital Reading Result Reference Range Collection Date/Time Height 74 [in_i] February 03, 2025 11:55lyDaujpq928.90 kgOcthazard arh regional medical center 2024 11:46pmBody Riiyqvfijmh53.7 [degF]97.6-99.0Octhazard arh regional medical center 2024 11:47pmHeart Rate88 /bkx31-717 February 04, 2025 2:47amRespiratory rate14 /wqi94-83Sxyfkaa 2024 2:47am Oxygen saturation by Pulse ofcxzfxa79 %95-100Octhazard [facility] 2024 2:47amBP Systolic 134 mm[Hg]100-140Octh[facility] 2024 2:47amBP Aszpcgiqv23 mm[Hg]60-100Octhazard [facility] regional medical center 2024 2:47am Advance Directives Advance Directive Response Recorded Date/ Time Advance Directives No September 17 7:45am Insurance Providers Guarantor Tristin Castaneda Address [address] [place] [address] [facility] [address]Ptrmvca Info.Home Phone: Coverage Status Update:2025 Payer Group Member ID Coverage Type Subscriber Relationship to Subscriber Effective Date Expiration Date 100 ODJFS KAROLYN MATIAS [id number] Encounters Encounter Location(s) Arrival/Admit Date Discharge/Departure Date Discharge/Departure Disposition Provider(s) Departed Emergency -Emergency Room February 04, 2025 12:40am February 04, 2025 4:32am Discharged to home care or self care (routine discharge) Departed Referred-LAB Path Spec [facility] 2024 12:35pmDecemb2024 12:36pmDischarged to home care or self care (routine discharge) Estefani Valdez DO Plan of Treatment Future Tests Future scheduled test information is unavailable Pending Tests Test Name Ordered Date Scheduled Date Urine Culture April 11, 2025 12:35pm Future Visits Future appointment information is unavailable Future Procedures Procedure Name Ordered Date Scheduled Date Consult to Telemedicine February 03, 2025 11:42p m February 03, 2025 11:42pm Urine Culture April 11, 2025 9:24pm Decem ariela 2024 12:35pm Future Medications Future medication information is unavailable Patient Instructions Instruction Admit Date Weakness - ED discharge instructions [facility] avelino 2024 12:40am
[2025-04-16] VITALS (9 sets, daily range): BP systolic 117–142; BP diastolic 80–100; PULSE 82–100; TEMP 36.6; O2SAT 99; BMI 36.1
--- NOTE | 2025-04-16 17:38 | ECG_ITS ---
[facility] Test Date: 2025-04-16 Pat Name: CHUCK PACKER Department: Room: - Gender: Male Materials Director: : 1985 Requested By: [id number] Order Number: [id number] Reading MD: EVAN COLLIER Measurements Intervals [place] Rate: 82 P: 63 VT: 142 QRS: 49 QRSD: 84 T: 36 QT: 342 QTc: 381 Interpretive Statements 1100 Sinus rhythm [address] elevation [address] & Twave abnormality 9130 borderline ECG Compared to ECG 04/11/2025 12:27:38 ST (T wave) deviation now present Electronically Signed On 04-17-2025 16:43:06 EST by EVAN COLLIER
--- NOTE | 2025-04-16 17:52 | ED.GENADUL1 ---
HPI HPI - General Adult General Chief complaint: Anxiety Stated complaint: anxiety Time Seen by Provider: 04/16/25 17:26 Source: patient Mode of arrival: walk-in Limitations: no limitations History of Present Illness HPI narrative: Patient is a 39-year-old male who is well-known to this emergency department that presents via EMS with complaints of quick onset of chest pain and shortness of breath that happened while he was at his 's mother's house. This episode lasted for about an hour. He is ambulatory into the emergency department. He was in this ER 5 days ago with complaints of feeling weak and tired and missed work. He was diagnosed with increased anxiety at that time. He has been restarted on his Prozac at 20 mg about a week and a half ago. Previously he had been taking 60 mg of Prozac but was unable to afford it. He has recently obtained a PCP, Lyndsey Soriano, who is managing his diabetes and anxiety. A few weeks ago he also had a mental health evaluation that was required by CPS for an investigation about his son. He has been under a lot of stress from this. His PCP had discussed starting him on as needed benzodiazepine, Xanax, but patient does not have a car or reliable transportation to perform the drug tests. Related Data Home Medications ?Medication ?Instructions ?Recorded ?Confirmed fluoxetine 20 mg capsule 20 mg PO DAILY 04/11/25 04/11/25 Previous Rx's ?Medication ?Instructions ?Recorded meclizine 25 mg chewable tablet 25 mg PO TID PRN dizziness or 03/17/25 (Antivert) vertigo #7 tabs metformin 500 mg tablet 500 mg PO DAILY #30 tabs 03/21/25 lorazepam 0.5 mg tablet (Ativan) 0.5 mg PO Q12H PRN anxiety #5 tabs 04/16/25 Allergies Allergy/AdvReac Type Severity Reaction Status Date / Time erythromycin base Allergy Intermediate Rash Verified 04/16/25 17:21 Penicillins Allergy Intermediate Rash Verified 04/16/25 17:21 Opioid HPI Opioid Management Most Recent Opioid Data: Last Pain Scale 7 03/21/25, 17:28 Ur Phencyclidine Scrn, (NEGATIVE) Negative 03/21/25, 17:37 Review of Systems ROS Status of ROS 10 or more systems reviewed and unremarkable except as noted in history and below PFSH PFSH Social History Smoking status: Current every day smoker Little interest or pleasure in doing things: not at all Feeling down, depressed, or hopeless: not at all Exam Narrative Exam Narrative: General: No distress, age-appropriate Skin: Warm, dry, no pallor. No rash. Head: Normocephalic, atraumatic. Neck: Supple, non-tender. Eye: Pupils are equal, round and EOMI. No scleral icterus. Ears, Nose, Mouth, and Throat: No nasal mucosal hypertrophy. Oral mucosa is moist, no posterior oropharynx erythema, uvula is mid-line Cardiovascular: Regular Rate and Rhythm without murmur, gallop or rub. Respiratory: No accessory muscle use or respiratory distress. Lungs are clear to auscultation, no wheezing, rales or rhonchi Chest Wall: no tenderness Musculoskeletal: Full ROM of all extremities, no calf or popliteal tenderness Neurological: A&O x4. No cranial nerve dysfunction observed. No truncal ataxia. Moves all extremities. Sensation intact. Psychiatric: Cooperative and interactive. Normal mood and affect. Constitutional Vital Signs, click to edit/add: Last Vital Signs Temp 97.9 F 04/16/25 17:21 Pulse 85 04/16/25 19:00 Resp 15 04/16/25 19:00 BP 117/80 04/16/25 19:00 Pulse Ox 99 04/16/25 17:21 O2 Del Method Room Air 04/16/25 17:21 Documenting provider has reviewed patient's vital signs: yes Course Vital Signs Vital signs: Vital Signs Temperature 97.9 F 04/16/25 17:21 Pulse Rate 100 H 04/16/25 17:21 Respiratory Rate 18 04/16/25 17:21 Blood Pressure 142/100 H 04/16/25 17:21 Pulse Oximetry 99 04/16/25 17:21 Oxygen Delivery Method Room Air 04/16/25 17:21 Temperature 97.9 F 04/16/25 17:21 Pulse Rate 85 04/16/25 19:00 Respiratory Rate 15 04/16/25 19:00 Blood Pressure 117/80 04/16/25 19:00 Pulse Oximetry 99 04/16/25 17:21 Oxygen Delivery Method Room Air 04/16/25 17:21 Medical Decision Making MDM Narrative Medical decision making narrative: 39-year-old male with history of anxiety and diabetes presents to the ER via EMS with acute-onset chest pain and shortness of breath. He states he thinks he had a panic attack and was recently diagnosed with panic disorder. This episode lasted about an hour and he is still feeling chest pain, mild tingling all over his body, and feels short of breath. On arrival patient is in no distress, speaking in full clear sentences. Vitals stable and patient afebrile. 99% O2 saturation on room air. IV in place via EMS. 0.5 mg IV Ativan ordered. CBC, BMP, EKG, troponin, and UA ordered. Pain resolved in the ED, and the patient reports marked improvement after 0.5 mg IV Ativan. He reports this is the best I have felt in a long time . He is hemodynamically stable and ambulatory. Workup included EKG, showing sinus rhythm with nonspecific ST/T wave abnormalities unchanged from prior EKG, and troponin, which is normal at 5.7. Labs including BMP, CBC, and UA were unremarkable, with no evidence of infection, metabolic disturbance, or renal dysfunction. Risk stratification with HEART score: History: moderately suspicious 1 EKG: nonspecific changes 1 Age: 39 0 Risk factors: diabetes 1 Troponin: normal 0 Total HEART score: 3 low risk for major adverse cardiac event. Given resolution of symptoms, negative workup, low HEART score, and improvement with anxiolytic therapy, the patient?s presentation is most consistent with anxiety/panic attack. No evidence of acute coronary syndrome or other emergent cardiopulmonary pathology. Ativan 0.5 mg p.o. short course prescribed for repeat episodes. Patient is safe for discharge with follow-up with PCP (Lyndsey Soriano) for ongoing anxiety management and discussion regarding SSRI titration or non-benzodiazepine PRN options. Red-flag symptoms including recurrence of chest pain, syncope, or dyspnea were reviewed with the patient. Patient's symptoms improved/resolved, vital stable, and he was discharged with plan for close follow-up with PCP. Differential Diagnosis Differential Diagnosis: ACS, panic attack, acute on chronic anxiety Lab Data Lab results reviewed: Yes I reviewed the patient's lab results Labs: Lab Results 04/16/25 04/16/25 Range/Units 16:04 17:58 WBC 5.3 (4.0-11.0) 10^3/uL RBC 5.39 (4.70-6.10) 10^6/uL Hgb 16.2 (14.0-18.0) g/dL Hct 45.3 (42.0-54.0) % MCV 84.0 (80.0-94.0) fL MCH 30.1 (25.9-34.0) pg MCHC 35.8 H (29.9-35.2) g/dL RDW 12.1 (11.0-15.0) % Plt Count 201 (150-450) 10^3/uL MPV 9.7 (9.5-13.5) fL Neut % (Auto) 58.6 (43.0-75.0) % Lymph % (Auto) 34.4 (20.5-60.0) % [place] % (Auto) 6.2 (1.7-12.0) % Eos % (Auto) 0.4 L (0.9-7.0) % Baso % (Auto) 0.2 (0.2-2.0) % Neut # (Auto) 3.1 (1.4-6.5) 10^3/uL Lymph # (Auto) 1.8 (1.2-3.8) 10^3/uL [place] # (Auto) 0.3 (0.3-0.8) 10^3/uL Eos # (Auto) 0.0 (0.0-0.7) 10^3/uL Baso # (Auto) 0.0 (0.0-0.1) 10^3/uL Abs Immat Gran (auto) 0.01 (0.00-0.03) 10^3/uL Imm/Tot Granulo (auto) 0.2 (0.0-0.5) % Sodium 139 (136-145) mmol/L Potassium 3.5 (3.5-5.1) mmol/L Chloride 104 (98-107) mmol/L Carbon Dioxide 26.5 (21.0-32.0) mmol/L Anion Gap 12.0 BUN 11.0 (7.0-18.0) mg/dL Creatinine 1.12 (0.70-1.30) mg/dL Est GFR ( Amer) >60 (>=60 mL/min/1.73m^2) Est GFR (Non-Af Amer) >60 (>=60 mL/min/1.73m^2) BUN/Creatinine Ratio 9.8 Glucose 129 H (74-106) mg/dL Calcium 9.2 (8.5-10.1) mg/dL Troponin I High Sens 5.7 (4.0-76.1) pg/mL Urine Color Lt. yellow (YELLOW) Urine Clarity Clear (CLEAR) Urine pH 6.5 (5.0-9.0) Ur Specific Dendron 1.010 (1.005-1.025) Urine Protein Negative (NEG/TRACE) mg/dL Urine Glucose (UA) Negative (NEGATIVE) mg/dL Urine Ketones Negative (NEGATIVE) mg/dL Urine Occult Blood Trace-i (NEGATIVE) Urine Nitrite Negative (NEGATIVE) Urine Bilirubin Negative (NEGATIVE) Urine Urobilinogen 1.0 (0.2-1.0) EU/dL Ur Leukocyte Esterase Trace A (NEGATIVE) Urine RBC 0-2 (0-2) #/HPF Urine WBC 0-2 A (NONE SEEN) #/HPF Ur Squamous Epith Cells Few A (NONE/RARE) #/LPF Urine Crystals None seen (None Seen) #/HPF Urine Bacteria Trace A (NONE SEEN) #/HPF Urine Casts None seen (NONE SEEN) #/LPF Urine Mucus None seen (NONE SEEN) Ur Culture Indicated? No ECG Data Attestation: ?I have reviewed the pertinent ECG results. Discharge Plan Discharge Chief Complaint: Anxiety Clinical Impression: Chest pain, Anxiety Patient Disposition: Home, Self-Care Time of Disposition Decision: 19:50 Condition: Good Mode of Transportation: Private Vehicle Prescriptions / Home Meds: New lorazepam [Ativan] 0.5 mg tablet 0.5 mg PO Q12H PRN (Reason: anxiety) Qty: 5 0RF No Action metformin 500 mg tablet 500 mg PO DAILY Qty: 30 0RF fluoxetine 20 mg capsule 20 mg PO DAILY meclizine [Antivert] 25 mg tablet,chewable 25 mg PO TID PRN (Reason: dizziness or vertigo) Qty: 7 0RF Print Language: Costa Rican Instructions: Panic Attack (ED) Referrals: MERNA SORIANO [Primary Care Provider, Family Practice] - 1 week Discharge Date/Time: 04/16/25 20:16
[2025-04-16] MEDS: LORAZEPAM 2 MG/ML VIAL 0.5 MG IV (17:56)
[2025-04-16 18:07] LABS: Hematocrit 45.3 % (42.0-54.0); Hemoglobin 16.2 g/dL (14.0-18.0); Immature Granulocytes Abs Auto 0.01 10^3/uL (0.00-0.03); Immature Granulocytes Pct Auto 0.2 % (0.0-0.5); Lymphocytes Absolute Auto 1.8 10^3/uL (1.2-3.8); Mean Corpuscular HGB Conc 35.8 g/dL (29.9-35.2); Mean Corpuscular Hemoglobin 30.1 pg (25.9-34.0); Mean Corpuscular Volume 84.0 fL (80.0-94.0); Platelet Count 201 10^3/uL (150-450); Red Blood Count 5.39 10^6/uL (4.70-6.10); White Blood Count 5.3 10^3/uL (4.0-11.0)
[2025-04-16 18:23] LABS: Glucose Urine UA NEGATIVE (NEGATIVE)
[2025-04-16 18:24] LABS: Anion Gap 12.0; Blood Urea Nitrogen 11.0 mg/dL (7.0-18.0); Calcium 9.2 mg/dL (8.5-10.1); Carbon Dioxide 26.5 mmol/L (21.0-32.0); Chloride 104 mmol/L (98-107); Estimated GFR (African America >60 (>=60 mL/min/1.73m^2); Estimated GFR (Non-African Ame >60 (>=60 mL/min/1.73m^2); Glucose 129 mg/dL (74-106); Potassium 3.5 mmol/L (3.5-5.1); Sodium 139 mmol/L (136-145)
[2025-04-16 18:39] LABS: Cast Seen? NONE SEEN #/LPF (NONE SEEN); Crystals Seen? None Seen #/HPF (None Seen)
[2025-04-16 18:40] LABS: Urine Culture Indicated NO
== END 2025-04-16 20:16 | disposition home or self-care (01) ==
PROVIDERS: Physician Assistant; Emergency Provider Emergency Medicine; PCP Nurse Practitioner Family
DX: R07.9 Chest pain, unspecified (principal); F41.9 Anxiety disorder, unspecified; E11.9 Type 2 diabetes mellitus without complications; Z79.84 Long term (current) use of oral hypoglycemic drugs; F17.200 Nicotine dependence, unspecified, uncomplicated
CPT/HCPCS: 36415; 80048; 81001; 84484; 85025; 93005; 96374; 99284; J2060

== ENCOUNTER 2025-04-19 21:11 | Emergency (ER) | payer SELFPAY ==
--- OUTSIDE RECORDS SUMMARY | 2024-08-08 08:30 | XMS_ITS ---
Author Organization The [facility] in [place] Address [address] [place] [address] Care Team Providers Care Electrical Maintenance Worker Name Role Phone Leighann Mahoney Primary Care Provider REASON FOR VISIT STILL SICK Encounters Encounter Location Date Provider Diagnosis [facility] [address] [place] [address] 08/08/2024 Leighann Mahoney Plan Of Treatment Next Appt Details Provider Name:Leighann doss, 04/20/2025 01:00:00 PM, [address] [place], [address], Provider Name:Leighann doss, 05/04/2025 09:30:00 AM, [address] [place] [address], [address], Progress Notes * Genesis PACKEROB:1985 (39 yo M)Acc No.[id number]:08/08/2024 UNLOCKED PROGRESS NOTE Progress Note Patient: Tristin CARL :?Leighann Mahoney ([facility]), CNPDOB:1985 ???Age:38 Y???Sex:MaleDate:08/08/2024Phone:[phone]:[address] [place], [place] Subjective: * Chief Complaints: * 1 . STILL SICK. * Medical History: Objective: * Vitals: Assessment: Plan: * Treatment: * * Electronic signature of Leighann Mahoney NP, LEAD PL SQL DEVELOPER.ASSISTANT PROGRAM DIRECTOR.[id number] on 04/19/2025 at 10:15 PM ESTSign off status: PendingVisit Status:?OFF CANC (OFFICE CANCEL) * Provider: Phan Mahoney ([facility]), ASSISTANT PROGRAM DIRECTOR Date: 0 08/08/2024 Generated for Printing/Faxing/eTransmitting on:?04/19/2025 10:15 PM EST
--- OUTSIDE RECORDS SUMMARY | 2025-04-11 07:32 | XMS_ITS ---
Author Organization The [facility] in [place] Address [address] [place] [address] Care Team Providers Care Paintless Dent Repair Technician Name Role Phone Leighann Mahoney Primary Care Provider Encounters Encounter Location Date Provider Diagnosis Electronic Health Records [address] [place] [address] 04/11/2025 Leighann Mahoney Plan Of Treatment Next Appt Details Provider Name:Leighann doss, 04/20/2025 01:00:00 PM, [address] [facility], [place], [place], [address], Provider Name:Leighann doss, 05/04/2025 09:30:00 AM, [address] [facility], [place], [place], [address], Progress Notes * Genesis PACKEROB:1985 (39 yo M)Acc No.[id number]:04/11/2025 Patient:?Tristin PACKER :1985???Age:39 Y???Sex:MalePhone:[phone] Address:[address] [place] [address] Subjective: * Chief Complaints: * * Medical History: * Surgical History: * Hospitalization/Major Diagno stic Procedure: * Medications: Objective: * Vitals: * Physical Examination: ??? Assessment: Plan: * Treatment: * Procedure Codes: * Preventive Medicine: ??Screenings/Counseling:?TOBACCO ACTION PLAN?Patient counselled on the dangers of tobacco use and urged to quit.? 04/03/2025 - -Date counseled * true * Date:?Generated for Printing/Faxing/eTransmitting on:?04/19/2025 10:15 PM EST
--- OUTSIDE RECORDS SUMMARY | 2025-04-17 03:44 | XMS_ITS ---
Author Organization The [facility] in [place] Address [address] [place] [address] Care Team Providers Care Gang Pusher Name Role Phone Leighann Mahoney Primary Care Provider Encounters Encounter Location Date Provider Diagnosis [facility] [address] [place] [address] 04/17/2025 Leighann Mahoney Plan Of Treatment Next Appt Details Provider Name:Leighann doss, 04/20/2025 01:00:00 PM, [address] [facility], [place], [address], Provider Name:Leighann doss, 05/04/2025 09:30:00 AM, [address] [facility], [place], [address], Progress Notes * Genesis PACKEROB:1985 (39 yo M)Acc No.[id number]:04/17/2025 Patient:?Tristin PACKER :1985???Age:39 Y???Sex:MalePhone:[phone] Address:[facility] [place] [address] [place] [address] Subjective: * Chief Complaints: * * Medical History: * Surgical History: * Hospitalization/Major Diagno stic Procedure: * Medications: Objective: * Vitals: * Physical Examination: ??? Assessment: Plan: * Treatment: * Procedure Codes: * true * Date:?Generated for Printing/Faxing/eTransmitting on:?04/19/2025 10:15 PM EST
[2025-04-19 21:51] VITALS: BP 155/102; PULSE 82; TEMP 36.8; O2SAT 100; BMI 36.1
--- NOTE | 2025-04-19 22:11 | ED.SKABFB1 ---
HPI - Skin/Abscess/Foreign Bdy General Chief complaint: Skin/Abscess/Foreign Body Stated complaint: RASH ON ARM Time Seen by Provider: 04/19/25 22:09 Source: patient Mode of arrival: walk-in Limitations: no limitations History of Present Illness HPI narrative: This 39-year-old male presents for evaluation of a burning rash to the anterior distal left forearm with a couple spots on his left hand. 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 He denies any change in his medications. He denies any change in his health care products. He states his symptoms started about 1 hour ago and it is burning in sensation. He is not having difficulty breathing or swallowing. Related Data Home Medications ?Medication ?Instructions ?Recorded ?Confirmed fluoxetine 20 mg capsule 20 mg PO DAILY 04/11/25 04/11/25 Previous Rx's ?Medication ?Instructions ?Recorded meclizine 25 mg chewable tablet 25 mg PO TID PRN dizziness or 03/17/25 (Antivert) vertigo #7 tabs metformin 500 mg tablet 500 mg PO DAILY #30 tabs 03/21/25 lorazepam 0.5 mg tablet (Ativan) 0.5 mg PO Q12H PRN anxiety #5 tabs 04/16/25 Allergies Allergy/AdvReac Type Severity Reaction Status Date / Time erythromycin base Allergy Intermediate Rash Verified 04/16/25 17:21 Penicillins Allergy Intermediate Rash Verified 04/16/25 17:21 Review of Systems ROS Status of ROS 10 or more systems reviewed and unremarkable except as noted in history and below PFSH PFS Social History Smoking status: Current every day smoker Little interest or pleasure in doing things: not at all Feeling down, depressed, or hopeless: not at all Exam Narrative Exam Narrative: Vital signs and Nursing Notes reviewed: Patient is afebrile with a normal pulse, blood pressure is elevated 155/102, he is not hypoxic with pulse ox of 100% on room air General: Awake, alert, oriented, no acute distress, lying comfortably on the stretcher HEENT: Normocephalic atraumatic, mucous membranes are moist and pink, eyes are clear, normal conjunctiva, vision is grossly intact, posterior pharynx is normal in appearance. Chest: Lungs are clear to auscultation with good air entry, there is no wheezing rhonchi or rales appreciated no accessory muscle use, patient is speaking in complete sentences-no chest wall tenderness to palpation CVS: Regular rate and rhythm S1-S2, no murmurs rubs or gallops, pulses are brisk and equal bilaterally Extremities: Moving all extremities, there is a cluster of approximately 20 small pink papules on the anterior surface of the left distal forearm/wrist area. No petechiae purpura noted. There are several macules on the patient's left hand as well that do not appear to be associated with this rash. It is not vesicular in nature. There is no drainage. There is no lymphangitic streaking. Skin: Multiple tattoos, cluster of 20 small pink papules in the anterior surface of the left distal forearm wrist area as described above Neuro: No focal deficits Constitutional Vital Signs, click to edit/add: Last Vital Signs Temp 98.2 F 04/19/25 21:51 Pulse 82 04/19/25 21:51 Resp 18 04/19/25 21:51 BP 155/102 H 04/19/25 21:51 Pulse Ox 100 04/19/25 21:51 O2 Del Method Room Air 04/19/25 21:51 Course Vital Signs Vital signs: Vital Signs Temperature 98.2 F 04/19/25 21:51 Pulse Rate 82 04/19/25 21:51 Respiratory Rate 18 04/19/25 21:51 Blood Pressure 155/102 H 04/19/25 21:51 Pulse Oximetry 100 04/19/25 21:51 Oxygen Delivery Method Room Air 04/19/25 21:51 Temperature 98.2 F 04/19/25 21:51 Pulse Rate 82 04/19/25 21:51 Respiratory Rate 18 04/19/25 21:51 Blood Pressure 155/102 H 04/19/25 21:51 Pulse Oximetry 100 04/19/25 21:51 Oxygen Delivery Method Room Air 04/19/25 21:51 MDM - Skin/Abscess/Foreign Bdy MDM Narrative Medical decision making narrative: 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 He does not know what caused the rash. He denies any change in his medications, healthcare products, detergents etc. He denies that he has been wearing any new gloves. He has a small cluster of macules on the left distal forearm that do not appear vesicular in nature. There is no drainage or sign of cellulitis. He was medicated with a dose of Benadryl emergency department to be discharged home with prednisone. Discharge Plan Discharge Chief Complaint: Skin/Abscess/Foreign Body Clinical Impression: Dermatitis, Contact dermatitis Patient Disposition: Home, Self-Care Time of Disposition Decision: 22:10 Condition: Good Prescriptions / Home Meds: No Action metformin 500 mg tablet 500 mg PO DAILY Qty: 30 0RF fluoxetine 20 mg capsule 20 mg PO DAILY lorazepam [Ativan] 0.5 mg tablet 0.5 mg PO Q12H PRN (Reason: anxiety) Qty: 5 0RF meclizine [Antivert] 25 mg tablet,chewable 25 mg PO TID PRN (Reason: dizziness or vertigo) Qty: 7 0RF Print Language: Italian Instructions: Contact Dermatitis (ED) Referrals: MERNA SORIANO [Primary Care Provider, Family Practice] - 1 week
--- OUTSIDE RECORDS SUMMARY | 2025-04-19 22:15 | XMS_ITS | Patient Health Record ---
Author Organization [facility] in [place] Address [address] [place] [address] Care Team Providers Care Green Plumber Name Role Phone Leighann Soriano Primary Care Provider Martínez [place] Jennifer [phone] Allergies Allergen (clinical drug ingredient) Drug/Non Drug Allergy documented on EMR Reaction Allergy Type Onset Date Status erythromycin Erythromycin Base hives Drug Allergy Activepenicillin VPenicillin V PotassiumhivesDrug AllergyActive Results Component Value Reference Range Notes COVID-19, Flu A+B IH Reviewed date:03/19/2025 10:38:37 AM Interpretation: Performing Lab: Notes/Report: COVID neg FLU AnegFLU BnegControlposD-DIMER Reviewed date:01/18/2025 10:48:48 AM Interpretation: Performing Lab: Notes/Report: [facility] ,D Dimer0.20<=0.59 mg/L FEU Increases [...] generalized hospitalization. Performing Lab:see noteML - [facility] LBDRUG SCREEN RAPID (URINE) Reviewed date:01/18/2025 10:48:48 AM Interpretation: Performing Lab: Notes/Report: [facility] ,Cannabinoid Screen UrinePOSITIVENEGATIVEPhencyclidine Screen UrineNEGATIVE [...] TCA (Trycyclic Antidepressants): 300 ng/mL Performing Lab:see note - [facility] LBPROF CHEM 8 (BAS METB) Reviewed date:01/18/2025 10:48:48 AM Interpretation: Performing Lab: Notes/Report: [facility] ,Dgyfrd402501-540 mmol/LPotassium4.03.5-5.1 mmol/SJetasjai35727-789 mmol/LCarbon Krifsdu69.221.0-32.0 mmol/LAnion Gap12.7Npjucnd10888-374 mg/dLBlood Urea Ddqitwwp43.07.0-18.0 mg/dLCreatinine1.070.70-1.30 mg/dLEstimated GFR ( Anupama>60>=60 mL/min/1.73m 2Estimated GFR (Non- Tia>60>=60 mL/min/1.73m 2BUN Creatinine Ratio15.9Ervmpeh4.08.5-10.1 mg/dLPerforming Lab:see note - [facility] LBTroponin I High Sensitivity Reviewed date:01/18/2025 10:48:48 AM Interpretation: Performing Lab: Notes/Report: [facility] ,Troponin I High Sensitivity<4.04.0-76.1 pg/mL CUT-OFF POINTS HAVE BEEN ESTABLISHED BASED ON THE FOURTH UNIVERSAL DEFINITION OF MYOCARDIAL INFARCTION. THE UPPER REFERENCE LIMIT (URL) OF TROPONIN, DEFINED THE 99TH PERCENTILE OF cTnI DISTRIBUTION IN A REFERENCE POPULATION, HAS BEEN CONFIRMED THE DECISION THRESHOLD FOR [place] DIAGNOS[place]. 99TH PERCENTILE = 76.2 PG/ML NOTE: HIGH-SENSITIVITY TROPONIN ASSAY IS NOT INTENDED TO BE USED IN ISOLATION BUT SHOULD BE INTERPRETED IN CONJUNCTION WITH OTHER DIAGNOSTIC AND CLINICAL INFORMATION. Performing Lab:see noteML - [facility] KOHMIF-ZkT-9 Ag* Reviewed date:01/18/2025 10:48:48 AM Interpretation: Performing Lab: Notes/Report: [facility] ,SARS-CoV-2 AgNEGATIVENEGATIVE This test has [...] revoked sooner. Performing Lab:see noteML - [facility] LBTroponin I High Sensitivity Reviewed date:01/18/2025 10:48:48 AM Interpretation: Performing Lab: Notes/Report: [facility] ,Troponin I High Sensitivity4.24.0-76.1 pg/mL CUT-OFF POINTS HAVE BEEN ESTABLISHED BASED ON THE FOURTH UNIVERSAL DEFINITION OF MYOCARDIAL INFARCTION. THE UPPER REFERENCE LIMIT (URL) OF TROPONIN, DEFINED THE 99TH PERCENTILE OF cTnI DISTRIBUTION IN A REFERENCE POPULATION, HAS BEEN CONFIRMED THE DECISION THRESHOLD FOR [place] DIAGNOSIS. 99TH PERCENTILE = 76.2 PG/ML NOTE: HIGH-SENSITIVITY TROPONIN ASSAY IS NOT INTENDED TO BE USED IN ISOLATION BUT SHOULD BE INTERPRETED IN CONJUNCTION WITH OTHER DIAGNOSTIC AND CLINICAL INFORMATION. Performing Lab:see noteML - [facility] LBCBC AUTO DIFF Reviewed date:01/29/2025 09:03:45 AM Interpretation: Performing Lab: Notes/Report: [facility] ,White Blood Count7.74.0-11.0 10 3/uLRed Blood Count5.164.70-6.10 10 6/uL Xtiwpawais26.814.0-18.0 g/pOHmezgmumkn27.342.0-54.0 %Mean Corpuscular Dekfeh90.9 80.0-94.0 fLMean Corpuscular Qlqgsxdupk53.625.9-34.0 pgMean Corpuscular HGB Conc 36.529.9-35.2 g/dLRed Cell Distribution Width12.011.0-15.0 %Platelet Xpuqv337 150-450 10 3/uLMean Platelet Volume9.89.5-13.5 fLNeutrophils Percent Auto60.1 43.0-75.0 %Lymphocytes Percent Auto32.820.5-60.0 %Monocytes Percent Auto6.11.7- 12.0 %Eosinophils Percent Auto0.40.9-7.0 %Basophils Percent Auto0.30.2-2.0 % Immature Granulocytes Pct Auto0.30.0-0.5 %Neutrophils Absolute Auto4.61.4-6.5 10 3/uLLymphocytes Absolute Auto2.51.2-3.8 10 3/uLMonocytes Absolute Auto0.50.3-0.8 10 3/uLEosinophils Absolute Auto0.00.0-0.7 10 3/uLBasophils Absolute Auto0.00.0- 0.1 10 3/uLImmature Granulocytes Abs Auto0.020.00-0.03 10 3/uLPerforming Lab:see noteML - [facility] LBD-DIMER Reviewed date:01/29/2025 09:03:45 AM Interpretation: Performing Lab: Notes/Report: [facility] ,D Dimer<0.19<=0.59 mg/L FEU Increases [...] and generalized hospitalization. Performing Lab:see note - [facility] LBPROF CHEM 8 (BAS METB) Reviewed date:01/29/2025 09:03:45 AM Interpretation: Performing Lab: Notes/Report: [facility] ,Bpyykm108349-730 mmol/LPotassium3.93.5-5.1 mmol/ZLlfwjzhq20272-455 mmol/LCarbon Iruykxj72.021.0-32.0 mmol/LAnion Gap15.5Qxhcakg15928-951 mg/dLBlood Urea Yznxnpiu66.07.0-18.0 mg/dLCreatinine0.940.70-1.30 mg/dLEstimated GFR ( Anupama>60>=60 mL/min/1.73m 2Estimated GFR (Non- Tia>60>=60 mL/min/1.73m 2BUN Creatinine Ratio13.5Whquvaa3.18.5-10.1 mg/dLPerforming Lab:see note - [facility] LBTroponin I High Sensitivity Reviewed date:01/29/2025 09:03:45 AM Interpretation: Performing Lab: Notes/Report: [facility] ,Troponin I High Sensitivity4.94.0-76.1 pg/mL CUT-OFF POINTS HAVE BEEN ESTABLISHED BASED ON THE FOURTH UNIVERSAL DEFINITION OF MYOCARDIAL INFARCTION. THE UPPER REFERENCE LIMIT (URL) OF TROPONIN, DEFINED THE 99TH PERCENTILE OF cTnI DISTRIBUTION IN A REFERENCE POPULATION, HAS BEEN CONFIRMED THE DECISION THRESHOLD FOR [place] DIAGNOS[place]. 99TH PERCENTILE = 76.2 PG/ML NOTE: HIGH-SENSITIVITY TROPONIN ASSAY IS NOT INTENDED TO BE USED IN ISOLATION BUT SHOULD BE INTERPRETED IN CONJUNCTION WITH OTHER DIAGNOSTIC AND CLINICAL INFORMATION. Performing Lab:see noteML - [facility] LBECG 12 lead Reviewed date:01/29/2025 03:35:15 PM Interpretation: Performing Lab: Notes/Report: Source Facility: [facility]-[address] [place] [address] [place] [address] Electrocardiograph Report Signed Patient: CHUCK PACKER MR#: [id number] : 1985 Acct:[id number] Age/Sex: 39 / M ADM Date: 01/28/25 Loc: ER Attending Dr: Ordering Physician: Leyda Barrientos M.D. 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 Signed By: 01/29/25 1514 DD/ 1224 TD/TT: Gi Physician:DRUG SCREEN RAPID (URINE) Reviewed date:03/19/2025 10:38:37 AM Interpretation: Performing Lab: Notes/Report: [facility] ,Cannabinoid Screen UrinePOSITIVENEGATIVEPhencyclidine Screen UrineNEGATIVE [...] 300 ng/mL Performing Lab:see noteML - [facility] LBUA Micro, reflex to culture Reviewed date:03/19/2025 10:38:37 AM Interpretation: Performing Lab: Notes/Report: [facility] ,Color UrineYELLOWYELLOWClarity UrineCLEARCLEARSpecific [place] Urine1.025 1.005-1.025pH Urine6.05.0-9.0Protein UrineTRACENEG/TRACE mg/dLGlucose Urine UA NEGATIVENEGATIVE mg/dLBilirubin UrineNEGATIVENEGATIVEKetones UrineTRACENEGATIVE mg/dLBlood UrineSMALLNEGATIVENitrite UrineNEGATIVENEGATIVEUrobilinogen Urine0.2 0.2-1.0 EU/dLLeukocyte Esterase UrineNEGATIVENEGATIVEWBC UrineNONE SEENNONE SEEN #/HPFRBC Urine0-20-2 #/HPFBacteria UrineTRACENONE SEEN #/HPFMucus UrineTRACENONE SEENSquamous Epithelial Cell UrineRARENONE/RARE #/LPFCrystals Seen?None SeenNone Seen #/HPFCast Seen?NONE SEENNONE SEEN #/LPFPerforming Lab:see noteML - [facility] LBCBC AUTO DIFF Reviewed date:03/21/2025 08:53:55 PM Interpretation: Performing Lab: Notes/Report: [facility] ,White Blood Count6.94.0-11.0 10 3/uLRed Blood Count5.234.70-6.10 10 6/uL Sapnvamfwd48.914.0-18.0 g/fDCdomgeuogz36.742.0-54.0 %Mean Corpuscular Cbfdll04.5 80.0-94.0 fLMean Corpuscular Laodauekvu56.425.9-34.0 pgMean Corpuscular HGB Conc 35.629.9-35.2 g/dLRed Cell Distribution Width12.111.0-15.0 %Platelet Zqrui125 150-450 10 3/uLMean Platelet Jmakwa58.29.5-13.5 fLNeutrophils Percent Auto63.3 43.0-75.0 %Lymphocytes Percent Auto30.820.5-60.0 %Monocytes Percent Auto4.91.7- 12.0 %Eosinophils Percent Auto0.60.9-7.0 %Basophils Percent Auto0.10.2-2.0 % Immature Granulocytes Pct Auto0.30.0-0.5 %Neutrophils Absolute Auto4.41.4-6.5 10 3/uLLymphocytes Absolute Auto2.11.2-3.8 10 3/uLMonocytes Absolute Auto0.30.3-0.8 10 3/uLEosinophils Absolute Auto0.00.0-0.7 10 3/uLBasophils Absolute Auto0.00.0- 0.1 10 3/uLImmature Granulocytes Abs Auto0.020.00-0.03 10 3/uLPerforming Lab:see noteML - [facility] LBLIPASE Reviewed date:03/21/2025 08:53:56 PM Interpretation: Performing Lab: Notes/Report: [facility] ,Nzfijp92.016.0-77.0 U/LPerforming Lab:see noteML - [facility] LBPROF 14(COMP METB) Reviewed date:03/21/2025 08:53:56 PM Interpretation: Performing Lab: Notes/Report: [facility] ,Cwboqq126588-400 mmol/LPotassium3.83.5-5.1 mmol/HNuscbpcx89584-563 mmol/LCarbon Vopiylw61.321.0-32.0 mmol/LAnion Gap12.2Srwhxec11039-915 mg/dLBlood Urea Htqvuqpm91.07.0-18.0 mg/dLCreatinine1.430.70-1.30 mg/dLEstimated GFR ( Anupama>60>=60 mL/min/1.73m 2Estimated GFR (Non- Ame56>=60 mL/min/1.73m 2 BUN Creatinine Ratio9.2Vvcieti8.78.5-10.1 mg/dLBilirubin Total0.50.2-1.0 mg/dL Aspartate Amino Lmqsirapuoo7136-78 U/LAlanine Mzewafchdzpnuisz9143-66 U/L Alkaline Lfbfdxqzeeo4577-732 U/LTotal Protein8.06.4-8.2 g/dLAlbumin Level3.53.4- 5.0 g/dLGlobulin4.5Albumin Globulin Ratio0.8Performing Lab:see noteML - [facility] LBTroponin I High Sensitivity Reviewed date:03/21/2025 08:53:56 PM Interpretation: Performing Lab: Notes/Report: [facility] ,Troponin I High Sensitivity<4.04.0-76.1 pg/mL CUT-OFF POINTS HAVE BEEN ESTABLISHED BASED ON THE FOURTH UNIVERSAL DEFINITION OF MYOCARDIAL INFARCTION. THE UPPER REFERENCE LIMIT (URL) OF TROPONIN, DEFINED THE 99TH PERCENTILE OF cTnI DISTRIBUTION IN A REFERENCE POPULATION, HAS BEEN CONFIRMED THE DECISION THRESHOLD FOR [place] DIAGNOS[place]. 99TH PERCENTILE = 76.2 PG/ML NOTE: HIGH-SENSITIVITY TROPONIN ASSAY IS NOT INTENDED TO BE USED IN ISOLATION BUT SHOULD BE INTERPRETED IN CONJUNCTION WITH OTHER DIAGNOSTIC AND CLINICAL INFORMATION. Performing Lab:see noteML - [facility] LBECG 12 lead Reviewed date:03/27/2025 08:15:33 AM Interpretation: Performing Lab: Notes/Report: Source Facility: [place] [address] Electrocardiograph Report Signed Patient: CHUCK PACKER MR#: [id number] : 1985 Acct:[id number] Age/Sex: 39 / M ADM Date: 03/21/25 Loc: ER Attending Dr: Ordering Physician: Kacie Rodriguez Date of Service: 03/21/25 Procedure(s): ECG 12 lead Accession Number(s): [id number] cc: [facility] Test Date: 2025-03-21 Pat Name: CHUCK PACKER Department: Room: - Gender: Male Systems Software Manager: : 1985 Requested By: LEIGHANN SOIRANO Order Number: [id number] Fly MD: JITENDRA FOOTE M.D. Measurements Intervals [place] Rate: 109 P: 58 AR: 120 QRS: 14 QRSD: 88 T: -59 [...] Signed By: 03/22/25 0604 DD/ 1739 TD/TT: Gi Physician:Urine Culture - FR Reviewed date:04/16/2025 08:26:30 AM Interpretation: Performing Lab: Notes/Report: [facility] ,Urine Culture - FRMCSee Below For Report Urine Culture - [facility] SEEFR [facility] RESULT^[facility] RESULT Urine Culture - FRMCSEEN SEE SCANNED REPORT, NORMAL^SEE SCANNED REPORT, NORMAL Urine Culture - [facility] SEEFR [facility] RESULT^[facility] RESULT Performing Lab:see noteML - [facility] LBECG 12 lead Reviewed date:04/12/2025 09:52:04 AM Interpretation: Performing Lab: Notes/Report: Source Facility: [place] [address] Electrocardiograph Report Signed Patient: CHUCK PACKER MR#: [id number] : 1985 Acct:[id number] Age/Sex: 39 / M ADM Date: 04/11/25 Loc: ER Attending Dr: Ordering Physician: Leyda Barrientos M.D. Date of Service: 04/11/25 Procedure(s): ECG 12 lead Accession Number(s): [id number] cc: [facility] Test Date: 2025-04-11 Pat Name: CHUCK PACKER Department: Room: - Gender: Male Systems Software Manager: : 1985 Requested By: 1030 Order Number: [id number] Reading MD: JITENDRA FOOTE M.D. Measurements Intervals [place] Rate: 93 P: 42 AR: 124 QRS: 40 QRSD: 76 T: 49 QT: 318 QTc: 369 Interpretive Statements 1100 Sinus rhythm 4068 Nonspecific Twave abnormality 9130 borderline ECG Compared to ECG 03/21/2025 17:39:38 Sinus tachycardia no longer present ST (T wave) deviation no longer present Electronically Signed On 04-11-2025 14:21:09 EST by JITENDRA FOOTE M.D. Dictated By: JITENDRA FOOTE Signed By: 04/11/25 1421 DD/ 1227 TD/TT: Gi Physician:PROF COLLETTE Becker ([facility]) Reviewed date:04/17/2025 09:41:27 AM Interpretation: Performing Lab: Notes/Report: [facility] ,Vfmfsy963104-424 mmol/LPotassium3.53.5-5.1 mmol/UVrmjwpxb88743-668 mmol/LCarbon Ojavczo01.521.0-32.0 mmol/LAnion Gap12.2Rahrtfc48981-243 mg/dLBlood Urea Dopyytkc24.07.0-18.0 mg/dLCreatinine1.120.70-1.30 mg/dLEstimated GFR ( Anupama>60>=60 mL/min/1.73m 2Estimated GFR (Non- Tia>60>=60 mL/min/1.73m 2BUN Creatinine Ratio9.1Lozlohe6.28.5-10.1 mg/dLPerforming Lab:see noteML - [facility] LBTroponin I High Sensitivity Reviewed date:04/17/2025 09:41:27 AM Interpretation: Performing Lab: Notes/Report: [facility] ,Troponin I High Sensitivity5.74.0-76.1 pg/mL CUT-OFF POINTS HAVE BEEN ESTABLISHED BASED ON THE FOURTH UNIVERSAL DEFINITION OF MYOCARDIAL INFARCTION. THE UPPER REFERENCE LIMIT (URL) OF TROPONIN, DEFINED THE 99TH PERCENTILE OF cTnI DISTRIBUTION IN A REFERENCE POPULATION, HAS BEEN CONFIRMED THE DECISION THRESHOLD FOR [place] DIAGNOSIS. 99TH PERCENTILE = 76.2 PG/ML NOTE: HIGH-SENSITIVITY TROPONIN ASSAY IS NOT INTENDED TO BE USED IN ISOLATION BUT SHOULD BE INTERPRETED IN CONJUNCTION WITH OTHER DIAGNOSTIC AND CLINICAL INFORMATION. Performing Lab:see noteML - [facility] LBECG 12 lead Reviewed date:04/18/2025 08:33:51 AM Interpretation: Performing Lab: Notes/Report: Source Facility: [facility]-[address] [place] [address] [place] [address] Electrocardiograph Report Signed Patient: CHUCK PACKER#: [id number] : 1985 Acct:[id number] Age/Sex: 39 / M ADM Date: 04/16/25 Loc: ER Attending Dr: Ordering Physician: Kacie Rodriguez Date of Service: 04/16/25 Procedure(s): ECG 12 lead Accession Number(s): [id number] cc: [facility] Test Date: 2025-04-16 Pat Name: CHUCK PACKER Department: Room: - Gender: Male Systems Software Manager: : 1985 Requested By: 2256 Order Number: [id number] Reading MD: SAURAV MITCHELL Measurements Intervals [place] Rate: 82 P: 63 AR: 142 QRS: 49 QRSD: 84 T: 36 QT: 342 QTc: 381 Interpretive Statements 1100 Sinus rhythm [address] elevation [address] Twave abnormality 9130 borderline ECG Compared to ECG 04/11/2025 12:27:38 ST (T wave) deviation now present Electronically Signed On 04-17-2025 16:43:06 EST by SAURAV MITCHELL Dictated By: Saurav Mitchell M.D. Signed By: 04/17/25 1643 DD/ 1804 TD/TT: Gi Physician:CBC AUTO DIFF Reviewed date:04/17/2025 09:41:27 AM Interpretation: Performing Lab: Notes/Report: [facility] ,White Blood Count5.34.0-11.0 10 3/uLRed Blood Count5.394.70-6.10 10 6/uL Lvllcbyipb56.214.0-18.0 g/vSXrdudsosqh58.342.0-54.0 %Mean Corpuscular Abzuhh93.0 80.0-94.0 fLMean Corpuscular Kwdjnxweuk86.125.9-34.0 pgMean Corpuscular HGB Conc 35.829.9-35.2 g/dLRed Cell Distribution Width12.111.0-15.0 %Platelet Itnni147 150-450 10 3/uLMean Platelet Volume9.79.5-13.5 fLNeutrophils Percent Auto58.6 43.0-75.0 %Lymphocytes Percent Auto34.420.5-60.0 %Monocytes Percent Auto6.21.7- 12.0 %Eosinophils Percent Auto0.40.9-7.0 %Basophils Percent Auto0.20.2-2.0 % Immature Granulocytes Pct Auto0.20.0-0.5 %Neutrophils Absolute Auto3.11.4-6.5 10 3/uLLymphocytes Absolute Auto1.81.2-3.8 10 3/uLMonocytes Absolute Auto0.30.3-0.8 10 3/uLEosinophils Absolute Auto0.00.0-0.7 10 3/uLBasophils Absolute Auto0.00.0- 0.1 10 3/uLImmature Granulocytes Abs Auto0.010.00-0.03 10 3/uLPerforming Lab:see noteML - [facility] LBXR chest 1V Reviewed date:04/12/2025 09:52:04 AM Interpretation: Performing Lab: Notes/Report: Source Facility: [place] [address] [place] [address] XRay Report Signed Patient: CHUCK PACKER MR#: [id number] : 1985 Acct:[id number] Age/Sex: 39 / M ADM Date: 04/11/25 Loc: ER Attending Dr: Ordering Physician: Leyda Barrientos M.D. Date of Service: 04/11/25 Procedure(s): XR chest 1V Accession Number(s): [id number] cc: LEIGHANN SORIANO ; Leyda Barrientos M.D. [place] [address] Patient Name: CHUCK PACKER MRN: [id number] date: 1985 Sex: M Assigned Patient Location: ER Current Patient Location: ED.MAIN Accession/Order Number: [id number] Exam Date: 04/11/2025 12:34 Report Date: 04/11/2025 12:55 At the request of: LEYDA BARRIENTOS MD Procedure: XR chest 1V PORTABLE AP ERECT CHEST 1206 hours CLINICAL HISTORY: Weakness, dizziness and fatigue COMPARISON: 03/21/2025 The heart is within normal limits. There is no vascular congestion. No developing consolidation is noted. There is no sizable effusion or pneumothorax. The osseous structures are intact. XR/XR chest 1V IMPRESSION: NO ACUTE FINDINGS Impression dictated by: Almaz Luther M.D. 04/11/2025 12:55 PM Dictation Location: [place] [address] Electronically authenticated by: [id number] Y Date: 04/11/2025 12:55 Dictated By: Almaz Luther M.D. Signed By: 04/11/25 1257 DD/ 1255 TD/TT: Gi Physician:UA RANDOM W or MICROSCOPIC Reviewed date:04/12/2025 09:52:04 AM Interpretation: Performing Lab: Notes/Report: [facility] ,Color UrineYELLOWYELLOWClarity UrineCLEARCLEARSpecific [place] Urine1.025 1.005-1.025pH Urine6.05.0-9.0Protein UrineTRACENEG/TRACE mg/dLGlucose Urine UA NEGATIVENEGATIVE mg/dLBilirubin UrineNEGATIVENEGATIVEKetones UrineTRACENEGATIVE mg/dLBlood UrineSMALLNEGATIVENitrite UrineNEGATIVENEGATIVEUrobilinogen Urine0.2 0.2-1.0 EU/dLLeukocyte Esterase UrineTRACENEGATIVEWBC Urine2-5NONE SEEN #/HPFRBC Urine0-20-2 #/HPFBacteria UrineMODERATENONE SEEN #/HPFMucus UrineMODERATENONE SEENSquamous Epithelial Cell UrineRARENONE/RARE #/LPFCrystals Seen?None SeenNone Seen #/HPFCast Seen?SEENNONE SEEN #/LPFHyaline Casts UrineRAREUrine Culture IndicatedYES-FRMCPerforming Lab:see noteML - [facility] LBPROF CHEM 8 (BAS METB) Reviewed date:04/12/2025 09:52:04 AM Interpretation: Performing Lab: Notes/Report: [facility] ,Sympzx557469-052 mmol/LPotassium3.83.5-5.1 mmol/TXlpvjklm60893-279 mmol/LCarbon Gujejaa83.921.0-32.0 mmol/LAnion Gap14.5Xqqlmel86869-418 mg/dLBlood Urea Savmlvaw82.07.0-18.0 mg/dLCreatinine1.180.70-1.30 mg/dLEstimated GFR ( Anupama>60>=60 mL/min/1.73m 2Estimated GFR (Non- Tia>60>=60 mL/min/1.73m 2BUN Creatinine Ratio9.9Ulhdvjl7.38.5-10.1 mg/dLPerforming Lab:see noteML - [facility] LBCBC AUTO DIFF Reviewed date:04/12/2025 09:52:04 AM Interpretation: Performing Lab: Notes/Report: [facility] ,White Blood Count7.14.0-11.0 10 3/uLRed Blood Count5.624.70-6.10 10 6/uL Cvnofnmdgo74.114.0-18.0 g/kCLpkkfgcqpm66.342.0-54.0 %Mean Corpuscular Zbqwnj74.2 80.0-94.0 fLMean Corpuscular Xyhzdiznqz78.425.9-34.0 pgMean Corpuscular HGB Conc 36.229.9-35.2 g/dLRed Cell Distribution Width12.011.0-15.0 %Platelet Ojbsc530 150-450 10 3/uLMean Platelet Volume9.89.5-13.5 fLNeutrophils Percent Auto67.3 43.0-75.0 %Lymphocytes Percent Auto26.920.5-60.0 %Monocytes Percent Auto5.01.7- 12.0 %Eosinophils Percent Auto0.30.9-7.0 %Basophils Percent Auto0.10.2-2.0 % Immature Granulocytes Pct Auto0.40.0-0.5 %Neutrophils Absolute Auto4.81.4-6.5 10 3/uLLymphocytes Absolute Auto1.91.2-3.8 10 3/uLMonocytes Absolute Auto0.40.3-0.8 10 3/uLEosinophils Absolute Auto0.00.0-0.7 10 3/uLBasophils Absolute Auto0.00.0- 0.1 10 3/uLImmature Granulocytes Abs Auto0.030.00-0.03 10 3/uLPerforming Lab:see noteML - [facility] LBXR abdomen 1V Reviewed date:04/02/2025 08:41:29 AM Interpretation: Performing Lab: Notes/Report: Source Facility: [facility]-[address] [place] [address] [address] XRay Report Signed Patient: CHUCK PACKER MR#: [id number] : 1985 Acct:[id number] Age/Sex: 39 / M ADM Date: 04/01/25 Loc: ER Attending Dr: Ordering Physician: Leyda Barrientos M.D. Date of Service: 04/01/25 Procedure(s): XR abdomen 1V Accession Number(s): [id number] cc: LEIGHANN SORIANO ; Leyda Barrientos M.D. [place] [address] Patient Name: CHUCK PACKER MRN: [id number] date: 1985 Sex: M Assigned Patient Location: ER Current Patient Location: ER Accession/Order Number: [id number] Exam Date: 04/01/2025 12:20 Report Date: 04/01/2025 12:35 At the request of: LEYDA BARRIENTOS MD Procedure: XR abdomen 1V XR abdomen 1V 04/01/2025 12:25 PM SIGNS AND SYMPTOMS: Upper abdominal pain and epigastric pain, possible constipation PROTOCOL: Frontal radiographs of the abdomen and pelvis COMPARISON: 06/26/2023 FINDINGS: There is evidence of prior cholecystectomy. There is moderate amount stool throughout colon. There is no evidence of bowel obstruction. No radiographic evidence of fracture. The bony structures are within normal limits. XR/XR abdomen 1V IMPRESSION: No bowel obstruction or free air. There is a moderate amount of stool predominantly in the right hemicolon. Impression dictated by: Antione Enamorado M.D. 04/01/2025 12:35 PM Dictation Location: [place] [address] Electronically authenticated by: [id number] Y Date: 04/01/2025 12:35 Dictated By: Antione Enamorado M.D. Signed By: 04/01/25 1238 DD/ 34 TD/TT: Gi Physician:XR chest 1V Reviewed date:03/21/2025 08:53:56 PM Interpretation: Performing Lab: Notes/Report: Source Facility: [place] [address] [place] [address] XRay Report Signed Patient: CHUCK PACKER MR#: [id number] : 1985 Acct:[id number] Age/Sex: 39 / M ADM Date: Loc: ER Attending Dr: Ordering Physician: Kacie Rodriguez Date of Service: 03/21/25 Procedure(s): XR chest 1V Accession Number(s): [id number] cc: LEIGHANN SORIANO ; Kacie Rodriguez [place] [address] Patient Name: CHUCK PACKER MRN: [id number] date: 1985 Sex: M Assigned Patient Location: ER Current Patient Location: ER Accession/Order Number: [id number] Exam Date: 03/21/2025 18:14 Report Date: 03/21/2025 [...] Chavez M.D. 03/21/2025 6:23 PM Dictation Location: [place] [address] Electronically authenticated by: [id number] Y Date: 03/21/2025 18:23 Dictated By: Jil Chavez D.O. Signed By: 03/21/251824 DD/ 22 TD/TT: Gi Physician:Chlamydia/GC Amplification Reviewed date:03/27/2025 08:15:33 AM Interpretation: Performing Lab: Notes/Report: Urine [facility] ,Chlamydia trachomatis, NAANegativeNegativeNeisseria gonorrhoeae, NAANegative Negative Performed at: =G - [facility] [address] [place] [place] [id number] [employer] Hand Finisher: Ava Max MD, Phone: [phone] Performing Lab:see noteLC - [facility] LBUA (CLEAN or CATCH) REFRIGERATION MANAGER or MICRO IF IND. Reviewed date:03/21/2025 08:53:56 PM Interpretation: Performing Lab: Notes/Report: [facility] ,Color UrineYELLOWYELLOWClarity UrineCLEARCLEARSpecific [place] Urine1.025 1.005-1.025pH Urine6.05.0-9.0Protein UrineNEGATIVENEG/TRACE mg/dLGlucose Urine UA>=1000NEGATIVE mg/dLBilirubin UrineNEGATIVENEGATIVEKetones UrineTRACENEGATIVE mg/dLBlood UrineSMALLNEGATIVENitrite UrineNEGATIVENEGATIVEUrobilinogen Urine0.2 0.2-1.0 EU/dLLeukocyte Esterase UrineNEGATIVENEGATIVEUrine Microscopic Indicated YESPerforming Lab:see noteML - [facility] LBTSH Reviewed date:03/21/2025 08:53:56 PM Interpretation: Performing Lab: Notes/Report: [facility] ,Thyroid Stimulating Hormone1.2350.358-3.740 uIU/mLPerforming Lab:see noteML - [facility] LBDRUG SCREEN RAPID (URINE) Reviewed date:03/21/2025 08:53:55 PM Interpretation: Performing Lab: Notes/Report: [facility] ,Cannabinoid Screen UrinePOSITIVENEGATIVEPhencyclidine Screen UrineNEGATIVE [...] Antidepressants): 300 ng/mL Performing Lab:see noteML - [facility] LBCT head/brain wo con Reviewed date:03/19/2025 10:38:37 AM Interpretation: Performing Lab: Notes/Report: Source Facility: [place] [address] CT Scan Report Signed Patient: CHUCK PACKER MR#: [id number] : 1985 Acct:[id number] Age/Sex: 39 / M ADM Date: Loc: ER Attending Dr: Ordering Physician: Jil Benitez Date of Service: 03/17/25 Procedure(s): CT head/brain wo con Accession Number(s): [id number] cc: LEIGHANN SORIANO [place] [address] Patient Name: CHUCK PACKER MRN: [id number] date: 1985 Sex: M Assigned Patient Location: ER Current Patient Location: ER Accession/Order Number: [id number] Exam Date: 03/17/2025 13:00 Report Date: 03/17/2025 [...] Chavez M.D. 03/17/2025 1:45 PM Dictation Location: [place] [address] Electronically authenticated by: [id number] Y Date: 03/17/2025 13:45 Dictated By: Jil Chavez D.O. Signed By: 03/17/257 DD/ 44 TD/TT: Gi Physician:XR chest 2V Reviewed date:03/19/2025 10:38:37 AM Interpretation: Performing Lab: Notes/Report: Source Facility: [place] [address] XRay Report Signed Patient: CHUCK PACKER MR#: [id number] : 1985 Acct:[id number] Age/Sex: 39 / M ADM Date: Loc: ER Attending Dr: Ordering Physician: Jil Benitez Date of Service: 03/17/25 Procedure(s): XR chest 2V Accession Number(s): [id number] cc: LEIGHANN SORIANO ; Jil Benitez [place] [id number] Patient Name: CHUCK PACKER MRN: [id number] date: 1985 Sex: M Assigned Patient Location: ER Current Patient Location: ER Accession/Order Number: [id number] Exam Date: 03/17/2025 13:00 Report Date: 03/17/2025 [...] Chavez M.D. 03/17/2025 1:46 PM Dictation Location: [place] [address] Electronically authenticated by: [id number] Y Date: 03/17/2025 13:46 Dictated By: Jil Chavez D.O. 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 Measurements Intervals [place] Rate: 89 P: 44 AR: 138 QRS: 26 QRSD: 80 T: 46 QT: 334 QTc: 381 Interpretive Statements 1100 Sinus rhythm [address] elevation [address] Twave abnormality 9130 borderline ECG Compared to ECG 01/28/2025 12:24:48 No significant changes Electronically Signed On 03-17-2025 12:57:47 EST by JITENDRA FOOTE M.D. Dictated By: JITENDRA FOOTE Signed By: 03/17/25 1258 DD/ 1232 TD/TT: Gi Physician:SARS-CoV-2 Ag* Reviewed date:03/19/2025 10:38:37 AM Interpretation: Performing Lab: Notes/Report: [facility] ,SARS-CoV-2 AgNEGATIVENEGATIVE This test has [...] revoked sooner. Performing Lab:see noteML - [facility] LBTroponin I High Sensitivity Reviewed date:03/19/2025 10:38:37 AM Interpretation: Performing Lab: Notes/Report: [facility] ,Troponin I High Sensitivity5.34.0-76.1 pg/mL CUT-OFF POINTS HAVE BEEN ESTABLISHED BASED ON THE FOURTH UNIVERSAL DEFINITION OF MYOCARDIAL INFARCTION. THE UPPER REFERENCE LIMIT (URL) OF TROPONIN, DEFINED THE 99TH PERCENTILE OF cTnI DISTRIBUTION IN A REFERENCE POPULATION, HAS BEEN CONFIRMED THE DECISION THRESHOLD FOR [place] DIAGNOSIS. 99TH PERCENTILE = 76.2 PG/ML NOTE: HIGH-SENSITIVITY TROPONIN ASSAY IS NOT INTENDED TO BE USED IN ISOLATION BUT SHOULD BE INTERPRETED IN CONJUNCTION WITH OTHER DIAGNOSTIC AND CLINICAL INFORMATION. Performing Lab:see noteML - [facility] LBPROF 14(COMP METB) Reviewed date:03/19/2025 10:38:37 AM Interpretation: Performing Lab: Notes/Report: [facility] ,Uktkqj245719-665 mmol/LPotassium3.93.5-5.1 mmol/IRqjaircy84884-274 mmol/LCarbon Dnhyhof84.321.0-32.0 mmol/LAnion Gap13.1Klpwpdz22106-573 mg/dLBlood Urea Dqiupfgz52.07.0-18.0 mg/dLCreatinine1.030.70-1.30 mg/dLEstimated GFR ( Anupama>60>=60 mL/min/1.73m 2Estimated GFR (Non- Tia>60>=60 mL/min/1.73m 2BUN Creatinine Ratio13.2Vmopfze8.38.5-10.1 mg/dLBilirubin Total0.70.2-1.0 mg/dL Aspartate Amino Edvduuobrzw5014-67 U/LAlanine Cnqlosjkkyugnytd7257-04 U/L Alkaline Rhcniwqtidl1626-276 U/LTotal Protein8.66.4-8.2 g/dLAlbumin Level3.93.4- 5.0 g/dLGlobulin4.7Albumin Globulin Ratio0.8Performing Lab:see noteML - [facility] LBLIPASE Reviewed date:03/19/2025 10:38:37 AM Interpretation: Performing Lab: Notes/Report: [facility] ,Qvekjb47.016.0-77.0 U/LPerforming Lab:see noteML - [facility] LB INFLUENZA A AND B AG Reviewed date:03/19/2025 10:38:37 AM Interpretation: Performing Lab: Notes/Report: [facility] ,Influenza Virus A AntigenNegative Negative [...] the test. Performing Lab:see noteML - [facility] LBCBC AUTO DIFF Reviewed date:03/19/2025 10:38:37 AM Interpretation: Performing Lab: Notes/Report: [facility] ,White Blood Count7.14.0-11.0 10 3/uLRed Blood Count5.474.70-6.10 10 6/uL Uuruhwyscc37.614.0-18.0 g/gFLdyzbpqxye48.142.0-54.0 %Mean Corpuscular Ctaicb81.3 80.0-94.0 fLMean Corpuscular Aivyreclnn83.325.9-34.0 pgMean Corpuscular HGB Conc 36.029.9-35.2 g/dLRed Cell Distribution Width12.111.0-15.0 %Platelet Zmtqo746 150-450 10 3/uLMean Platelet Gnlbth57.19.5-13.5 fLNeutrophils Percent Auto58.3 43.0-75.0 %Lymphocytes Percent Auto35.320.5-60.0 %Monocytes Percent Auto5.61.7- 12.0 %Eosinophils Percent Auto0.40.9-7.0 %Basophils Percent Auto0.10.2-2.0 % Immature Granulocytes Pct Auto0.30.0-0.5 %Neutrophils Absolute Auto4.11.4-6.5 10 3/uLLymphocytes Absolute Auto2.51.2-3.8 10 3/uLMonocytes Absolute Auto0.40.3-0.8 10 3/uLEosinophils Absolute Auto0.00.0-0.7 10 3/uLBasophils Absolute Auto0.00.0- 0.1 10 3/uLImmature Granulocytes Abs Auto0.020.00-0.03 10 3/uLPerforming Lab:see noteML - [facility] LBXR chest 1V Reviewed date:01/29/2025 09:03:45 AM Interpretation: Performing Lab: Notes/Report: Source Facility: [place] [address] [place] [address] XRay Report Signed Patient: CHUCK PACKER MR#: [id number] : 1985 Acct:[id number] Age/Sex: 39 / M ADM Date: 01/28/25 Loc: ER Attending Dr: Ordering Physician: Leyda Barrientos M.D. Date of Service: 01/28/25 Procedure(s): XR chest 1V Accession Number(s): [id number] cc: LEIGHANN SORIANO ; Leyda Barrientos M.D. [place] [address] Patient Name: CHUCK PACKER MRN: [id number] date: 1985 Sex: M Assigned Patient Location: ED.MAIN Current Patient Location: ED.MAIN Accession/Order Number: [id number] Exam Date: 01/28/2025 13:33 Report Date: 01/28/2025 [...] Enamorado M.D. 01/28/2025 2:07 PM Dictation Location: [place] [address] Electronically authenticated by: [id number] Y Date: 01/28/2025 14:07 Dictated By: Antione Enamorado M.D. Signed By: 01/28/25 1410 DD/ 1407 TD/TT: Gi Physician:XR chest 1V Reviewed date:01/18/2025 10:48:48 AM Interpretation: Performing Lab: Notes/Report: Source Facility: [place] [address] XRay Report Signed Patient: CHUCK PACKER MR#: [id number] : 1985 Acct:[id number] Age/Sex: 39 / M ADM Date: 01/17/25 Loc: ER Attending Dr: Ordering Physician: Kacie Rodriguez Date of Service: 01/17/25 Procedure(s): XR chest 1V Accession Number(s): [id number] cc: LEIGHANN SORIANO ; Kacie Rodriguez [place] [address] Patient Name: CHUCK PACKER MRN: [id number] date: 1985 Sex: M Assigned Patient Location: ER Current Patient Location: ED.MAIN Accession/Order Number: [id number] Exam Date: 01/17/2025 14:02 Report Date: 01/17/2025 14:48 At the request of: KACIE RIZZO Procedure: XR chest 1V PA CHEST: CLINICAL HISTORY: Chest pain COMPARISON: 07/15/2024 Unremarkable cardiac mediastinal silhouette. Lungs clear. No effusion or pneumothorax. XR/XR chest 1V IMPRESSION: NEGATIVE ACUTE PLEURAL-PARENCHYMAL DISEASE. Impression dictated by: Chandler Fields M.D. 01/17/2025 2:48 PM Dictation Location: [place] [address] Electronically authenticated by: [id number] Y Date: 01/17/2025 14:48 Dictated By: Chandler Fields M.D. 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 Measurements Intervals [place] Rate: 94 P: 54 AR: 130 QRS: 44 QRSD: 74 T: 49 QT: 342 QTc: 394 Interpretive Statements [address] elevation, probably early repolarization 9130 borderline ECG Compared to ECG 07/30/2024 14:12:13 ST (T wave) deviation now present Early repolarization now present Left ventricular hypertrophy no longer present Electronically Signed On 01-17-2025 17:53:50 EDT by JITENDRA FOOTE M.D. Dictated By: JITENDRA FOOTE Signed By: 01/17/25 7714 DD/ 1339 TD/TT: Gi Physician:CBC AUTO DIFF Reviewed date:01/18/2025 10:48:48 AM Interpretation: Performing Lab: Notes/Report: [facility] ,White Blood Count8.44.0-11.0 10 3/uLRed Blood Count5.214.70-6.10 10 6/uL Jedbjvfnjy14.714.0-18.0 g/bMMjowftcrau21.742.0-54.0 %Mean Corpuscular Wnjpln02.9 80.0-94.0 fLMean Corpuscular Fbusmpibss60.125.9-34.0 pgMean Corpuscular HGB Conc 35.929.9-35.2 g/dLRed Cell Distribution Width11.911.0-15.0 %Platelet Khbiz129 150-450 10 3/uLMean Platelet Volume9.89.5-13.5 fLNeutrophils Percent Auto63.7 43.0-75.0 %Lymphocytes Percent Auto30.520.5-60.0 %Monocytes Percent Auto5.31.7- 12.0 %Eosinophils Percent Auto0.20.9-7.0 %Basophils Percent Auto0.10.2-2.0 % Immature Granulocytes Pct Auto0.20.0-0.5 %Neutrophils Absolute Auto5.41.4-6.5 10 3/uLLymphocytes Absolute Auto2.61.2-3.8 10 3/uLMonocytes Absolute Auto0.50.3-0.8 10 3/uLEosinophils Absolute Auto0.00.0-0.7 10 3/uLBasophils Absolute Auto0.00.0- 0.1 10 3/uLImmature Granulocytes Abs Auto0.020.00-0.03 10 3/uLPerforming Lab:see noteML - [facility] LBECG 12 lead Reviewed date:08/06/2024 09:47:04 PM Interpretation: Performing Lab: Notes/Report: Source Facility: [facility]-[address] [place] [address] [address] Electrocardiograph Report Signed Patient: CHUCK PACKER MR#: [id number] : 1985 Acct:[id number] Age/Sex: 38 / M ADM Date: 07/30/24 Loc: ER Attending Dr: Ordering Physician: Leyda Barrientos M.D. 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 Measurements Intervals [place] Rate: 95 P: 44 AR: 120 QRS: 15 QRSD: 76 T: -5 [...] FOOTE Signed By: 07/30/242019 DD/ 11 TD/TT: Gi Physician:PROF COLLETTE Becker ([facility]) Reviewed date:08/06/2024 09:47:04 PM Interpretation: Performing Lab: Notes/Report: [facility] ,Owfyjn379899-124 mmol/LPotassium4.03.5-5.1 mmol/XUyoqprnj32803-779 mmol/LCarbon Tznysmr65.321.0-32.0 mmol/LAnion Gap12.5Ymtehen21479-834 mg/dLBlood Urea Iahvhrst52.07.0-18.0 mg/dLCreatinine1.100.70-1.30 mg/dLEstimated GFR ( Anupama>60>=60 mL/min/1.73m 2Estimated GFR (Non- Tia>60>=60 mL/min/1.73m 2BUN Creatinine Ratio11.6Dtewgph7.98.5-10.1 mg/dLPerforming Lab:see noteML - [facility] LBCBC AUTO DIFF Reviewed date:08/06/2024 09:47:04 PM Interpretation: Performing Lab: Notes/Report: [facility] ,White Blood Count7.44.0-11.0 10 3/uLRed Blood Count4.934.70-6.10 10 6/uL Togjhhkryc72.014.0-18.0 g/hXJonpqlqdmz33.142.0-54.0 %Mean Corpuscular Drsetk74.4 80.0-94.0 fLMean Corpuscular Ypkxcyrtsn47.425.9-34.0 pgMean Corpuscular HGB Conc 35.629.9-35.2 g/dLRed Cell Distribution Width12.611.0-15.0 %Platelet Tffiv801 150-450 10 3/uLMean Platelet Volume9.69.5-13.5 fLNeutrophils Percent Auto69.9 43.0-75.0 %Lymphocytes Percent Auto23.820.5-60.0 %Monocytes Percent Auto5.41.7- 12.0 %Eosinophils Percent Auto0.30.9-7.0 %Basophils Percent Auto0.30.2-2.0 % Immature Granulocytes Pct Auto0.30.0-0.5 %Neutrophils Absolute Auto5.21.4-6.5 10 3/uLLymphocytes Absolute Auto1.81.2-3.8 10 3/uLMonocytes Absolute Auto0.40.3-0.8 10 3/uLEosinophils Absolute Auto0.00.0-0.7 10 3/uLBasophils Absolute Auto0.00.0- 0.1 10 3/uLImmature Granulocytes Abs Auto0.020.00-0.03 10 3/uLPerforming Lab:see noteML - [facility] LBUA (CLEAN or CATCH) REFRIGERATION MANAGER or MICRO IF IND. Reviewed date:04/17/2025 09:41:27 AM Interpretation: Performing Lab: Notes/Report: [facility] ,Color UrineLT. YELLOWYELLOWClarity UrineCLEARCLEARSpecific [place] Urine1.010 1.005-1.025pH Urine6.55.0-9.0Protein UrineNEGATIVENEG/TRACE mg/dLGlucose Urine UANEGATIVENEGATIVE mg/dLBilirubin UrineNEGATIVENEGATIVEKetones UrineNEGATIVE NEGATIVE mg/dLBlood UrineTRACE-INEGATIVENitrite UrineNEGATIVENEGATIVE Urobilinogen Urine1.00.2-1.0 EU/dLLeukocyte Esterase UrineTRACENEGATIVEUrine Microscopic IndicatedYESPerforming Lab:see noteML - [facility] Reason For Referral No Information Medications Medication SIG (Take, Route, Frequency, Duration) Notes Start Date End Date Status hydrOXYzine HCl 50 MG TAKE 1 TABLET IN T HE AM AND 1 IN THE PM NEEDED; Duration: 30 ActiveFLUoxetine HCl 20 MG1 capsule Orally Once a day; Duration: 30 days 04/03/2025tiveHyoscyamine Sulfate 0.125 MG1-2 tabs SL SL every 4 hrs PRN abd pain07/20/2024tiveMupirocin 2 %1 application Externally Twice a day; Duration: 5 days12/10/2023ctiveOLANZapine 15 MG1 tablet Orally Once a day; Duration: 30 06/01/2024Not-TakingOndansetron HCl 4 MG1 tablet Orally BID prn; Duration: 7 06/15/2024tivemetFORMIN HCl 500 MG1 tablet with a meal Orally Once a day; Duration: 30 daysActivePantoprazole Sodium 40 MG1 tablet Orally Once a day; Duration: 30 day(s)12/07/2023ctiveBenzonatate 200 MG1 capsule as needed Orally Three times a day; Duration: 7 07/17/2024tivetraZODone HCl 50 MG1 tablet at bedtime as needed Orally Once a day; Duration: 30 5Active Ventolin HFA 108 (90 Base) MCG/ACTINHALE 1 TO 2 PUFFS EVERY 4 HOURS NEEDED; Duration: 17ActiveHydrocortisone 1 %1 application Externally Once a day 12/10/2023ctiveCVS Glucose Meter Test Strips -as directed In Vitro daily; Duration: 30 04/03/2025tiveDivalproex Sodium 250 MGTAKE 1 TABLET BY MOUTH IN THE MORNING AND 2 TABLETS IN THE EVENING; Duration: 30 daysActive Triamcinolone Acetonide 0.1 %1 application Externally Two times a Week12/10/2023 ActiveFLUoxetine HCl 20 MGTAKE 3 CAPSULES BY MOUTH ONCE A DAY; Duration: 30 Active Social History Tobacco Use: Social History Observation Description Date Details (start date - stop date) Current Smoker NA - NA Tobacco Use/Smoking Question Answer Notes Patient is a current smoker How often do you smoke cigarettes?every dayHow many cigarettes a day do you smoke?11Alcohol Screen (Audit-C) Question Answer Notes Did you have a drink containing alcohol in the p ast year? No Ytrbyi6IyuhetatadqbghKdfydztlCWDAF-N (Standard) Question Answer Notes Did you have a drink containing alcohol in the p ast year? No Fhfero3SikccyzwzfxlqzRgimssjs Problems Problem Type SNOMED Code ICD Code Onset Dates Problem Status W/U Status Risk Notes Problem Overweight (782588028) Overweight (E66.3) ActiveconfirmedProblemGeneralized anxiety disorder (02718297)Generalized anxiety disorder (F41.1)ActiveconfirmedProblemDepression (947034650)Depression (F32.9) ActiveconfirmedProblemErectile dysfunction (431287736)Erectile dysfunction (N52.9)ActiveconfirmedProblemGastroesophageal reflux disease (436579506)GERD without esophagitis (K21.9)ActiveconfirmedProblemMigraine (00022207)Migraine (G43.909)ActiveconfirmedProblemType 2 diabetes mellitus (73207497)Type 2 diabetes mellitus (E11.9)ActiveconfirmedProblemBronchitis (10264467)Bronchitis (J40)ActiveconfirmedProblemRash (288673295)Rash (R21)ActiveconfirmedProblemUpper respiratory infection (40450791)Upper respiratory infection (J06.9)Active confirmedProblemShingles (8119835)Shingles (B02.9)ActiveconfirmedProblem Hemorrhoids (74659273)Hemorrhoids (K64.9)ActiveconfirmedProblemCurrent smoker (72870324)Current smoker (F17.200)ActiveconfirmedProblemAbdominal discomfort (76153101)Abdominal discomfort (R10.9)ActiveconfirmedProblemPanic attack (751831410)Panic attack (F41.0)ActiveconfirmedProblemBright red blood per rectum (682294877)Bright red blood per rectum (K62.5)ActiveconfirmedProblemAnal fissure (16577650)Rectal fissure (K60.2)ActiveconfirmedProblemPain in limb (70389905) Heel pain, right (M79.671)ActiveconfirmedProblemInsomnia (521235692)Insomnia disorder (G47.00)ActiveconfirmedProblemIrritable bowel syndrome (03995264) Irritable bowel syndrome (IBS) (K58.9)ActiveconfirmedProblemWolff Parkinson White syndrome (17307831)Gkgyc-Jttrccbtt-Vkher (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)Active confirmedProblemMixed anxiety and depressive disorder (971959018)Anxiety and depression (F41.8)ActiveconfirmedProblemMenopause (268253528)Insomnia associated with menopause (N95.1)Activeconfirmed Vital Signs Heart Rate 109 /min 06/15/2024 Gidcqukkemd86.4 degrees Gwtqddadea56/04/7445Rrifkall39 %06/15/2024lood pressure cncxjtcca27 mm Hg04/03/20252624Mamyao89 in04/03/2025lood pressure bpglrsdy402 mm Hg 04/03/20257314Hxbvsk639 lbs106/04/2024BMI38.26 kg/m204/03/2025 Encounters Encounter Location Date Provider Diagnosis [address] [address] 05/26/2024 Leighann Soriano Insomnia disorder G4 7.00 ; Rash and other nonspecific skin eruption R21 and Depression F32.[address] [address] 06/08/2024 Martínez Hoy Cough R05.9 and Acut e bronchitis, unspecified organism J20.[address] [address] 06/15/2024 Leighann Maru Gastroenteritis K52. [address] [address] 07/14/2024 Leighannrachel Soriano Body aches R52 ; Gastroenteritis K52.9 and Vomiting R11.10 [facility] [address] [place] [address] 07/17/2024 Leighann Soriano Bronchitis J40 [facility] [address] [place] [address] 07/20/2024 Martínez Hoy Gastroenteritis K52. 9 [facility] [address] [place] [address] 08/04/2024 Martínez Hoy Acute non-recurrent sinusitis, unspecified location J01.90 and Nasal congestion R09.81 [facility] [address] [place] [address] 04/03/2025 Leighann Soriano Type 2 diabetes hector itus E11.9 and Anxiety and depression F41.8 [facility] [address] [place] [address] 06/01/2024 Leighann Soriano [facility] [place] [address] 03/27/2025[facility] [address] [place], [place] [address]/01/2025[facility] [facility] [place] [address]/[facility] [address] [place] [address]/Leighann Soriano Assessments Encounter Date Diagnosis (ICD Code) Assessment Notes Treatment Notes Treatment Clinical Notes Section Notes 05/26/2024 Rash and other nonspecific skin eruption (ICD-10 - R21) if not improving try scabies wash? call office derm fu if not improving, referral sheet given 05/26/2024Insomnia disorder (ICD-10 - G47.00) discussed sleep hygiene trial of trazodone 07/14/2024Gastroenteritis (ICD-10 - K52.9) has zofran at home rest, push fluids and electrolytes ok for OWN fu if not improving, sx worsen 07/14/2024ody aches (ICD-10 - R52)07/17/2024ronchitis (ICD-10 - J40)fu if not majmzrann78/20/2025Gastroenteritis (ICD-10 - K52.9)Get plenty of rest. Stay hydrated by sucking on ice chips or taking small sips of water. You can also try drinking clear soda, clear broths or noncaffeinated sports drinks. Stop eating solid foods for a few hours to let your stomach settle. East back into eating by eating bland, qwdq-ms-kyixnp foods like crackers, toast, gelatin, bananas, rice and chicken. Try to avoid foods/substances including dairy products, caffeine, alcohol, nicotine and fatty or highly seasoned foods. Medications such as i buprofen or tylenol can make your stomach more upset, so use sparingly if at all. Also avoid uejp-ssg-rnbfuuh anti-diarrheal medications because it can make it harder for your body to eliminate the virus.5Acute non-recurrent sinusitis, unspecified location (ICD-10 - J01.90)Rest and drink more liquids, especially water. You may use a humidifier or vaporizer to help keep the drainage moist. Mwkp-npd-arvhodn Nasal Saline may help the stuffy and runny nose. Use Ibuprofen and or Tylenol as needed for fever, chills, body aches or pain. Children 5 years old should not be given ycjl-ypn-nxavvio cough and cold medications such as guaifenesin and dextromethorphan. If you're over age 5, you may try nvkp-fiv-ybqadxr cold medications such as guaifenesin and dextromethorphan, [...] if symptoms do not improve within 3-5 days04/03/2025Type 2 diabetes mellitus (ICD-10 - E11.9) has monitor needs strips discussed DM 2 handouts given check fasting am sugar and record, report 1-2 weeks A1c in 3m Patient educated on Diabetic diet... Reviewed Hypoglycemia / Hyperglycemia action plan: Instructed to call office if blood sugar above 350 or below 65 consecutively. Reviewed with patient the long term care administrator effects of Diabetes Mellitus on the body and organs. Instructed patient to check feet daily, wearsocks daily, wear proper fitting shoes, lotion feet at night with no lotion between toes, powder between toes. Follow-up with podiatry Q6M and PRN. No toenail clipping except by Podiatry. Please bring glucase meter and record to each appointment, Please feel free to call if you have questions or concerns about management or condition. Please call 1 week before medications are depleted for refills. If you are instructed to be fasting for procedure or testing, please call for dosing instructions. 5Anxiety and depression (ICD-10 - F41.8) restart fluoxetine continue with counseling fu 5Cough (ICD-10 - R05.9)06/15/2024Gastroenteritis (ICD-10 - K52.9) push fluids, electrolytes ok for OWN 07/14/2024Vomiting (ICD-10 - R11.10)08/04/2024Nasal congestion (ICD-10 - R09.81) 5Acute bronchitis, unspecified organism (ICD-10 - J20.9)Rest and drink more liquids, especially water. You may use a humidifier or vaporizer to help keep the drainage moist. Bcqq-vvi-jdggpms Nasal Saline may help the stuffy and runny nose. Use Ibuprofen and or Tylenol as needed for fever, chills, body aches or pain. Children 5 years old should not be given htez-xrn-spofsar cough and cold medications such as guaifenesin and dextromethorphan. If you're over age 5, you may try gbta-fcj-wbttfpu cold medications such as guaifenesin and dextromethorphan, [...] go to the emergency room or call [phone]/Depression (ICD-10 - F32.9) psych referral sheet given needs to re establish with psych will review meds with Dr Vail Plan Of Treatment Pending Test Test Name Order Date COVID-19, Flu A+B IH 07/14/2024 Next Appt Details Provider Name:Leighann doss, 04/20/2025 01:00:00 PM, [address] [place], [address], Provider Name:Leighann doss, 05/04/2025 09:30:00 AM, [address] [place], [address], Medical (General) History Medical History History ICD Code Bronchitis J40 Heel pain, right M79.671 Hemorrhoids K64.9 Upper respiratory infection J06.9 Depression F32.9 Rash R21 Shingles B02.9 Migraine G43.909 Gastro-esophageal reflux disease K21.9 Bright red blood per rectum K62.5 Irritable bowel syndrome (IBS) K58.9 Panic attack F41.0 Gzuvt-Tfqmhyloo-Odyee (WPW) syndrome I45 .6 Overweight E66.3 Abdominal discomfort R10.9 Generalized anxiety disorder F41.1 Current smoker F17.200
--- OUTSIDE RECORDS SUMMARY | 2025-04-19 22:15 | XMS_ITS | Clinical Summary ---
Author Organization [facility] Address [address] [place] [address] Care Team Providers Care Ramp And Cargo Supervisor Name Role Phone Unavailable Primary Care Provider Unavailabl e Allergies Active AllergyReactionsCriticalityNoted DateCommentsErythromycinRashLow 02/23/2024Erythromycin TcncRjojb30/23/9169QxdezuzcwucLjdqo34/23/2024 Medications MedicationSigDispense QuantityRefillsLast FilledStart DateEnd DateStatus divalproex [...] (bright red blood per rectum)02/23/2024hange in bowel lmykdw7802/23/2024urrent smoker 02/23/2024 Overview (02/23/2024): Added secondary to documentation in Social History. Twmucxojtp03/23/2024Erectile nlsilffcrjw77/23/2024Generalized anxiety disorder 02/23/2024GERD (gastroesophageal reflux disease)02/23/2024History of shingles 02/23/2024IBS (irritable bowel syndrome)02/23/20247561Iourypvnb86/23/2024Morbid fnsdryy5302/23/2024bdominal pain, ibtxkzhlct52/23/2024anic disorder without agoraphobia with mild panic wflchqe4502/23/2024ectal gzqobxrc62/23/2024 Vkhcf-Rkoivujfx-Eppgr yquvkntq49/23/2024nal pain02/23/2024 Social History Tobacco UseTypesPacks/DayYears UsedDateSmoking Tobacco: [...] file03/14/2024Sexually AbusedNot on file03/14/2024HQ-2AnswerDate RecordedPatient Health Questionnaire-2 Bbdms65705/14/2023Sex and Gender InformationValueDate RecordedSex Assigned at BirthNot on fileLegal SexMale 02/11/2024 3:19 PM EDTGender IdentityNot on fileSexual OrientationNot on file Last Filed Vital Signs Vital SignReadingTime TakenCommentsBlood Cxurtisb572/8903/14/2024 2:20 PM EST Xjqsm236203/14/2024 2:20 PM GRNXoomkuensdj14.6 ??C (97.8 ??F)03/14/2024 2:20 PM ESTRespiratory Igpa7217 9:45 AM EDTOxygen Eqdgstzkam55%03/14/2024 2:20 PM ESTInhaled Oxygen Concentration--Odamxy455 kg (314 lb 3.2 oz)03/14/2024 2:20 PM MMNPpizpc862.5 cm (6' 3 )03/14/2024 2:20 PM ESTBody Mass Index39.27105/14/2023 2:20 PM EST Plan of Treatment Health MaintenanceDue DateLast DoneCommentsDepression Emedykexe97/19/2000 Varicella Vaccines (1 of 2 - 13+ 2-dose series)08/19/2000Hepatitis B Vaccines (1 of 3 - 19+ 3-dose series)08/19/2006Pneumococcal Vaccine: Pediatrics (0 to 5 Years) and At-Risk Patients (6 to 64 Years) (1 of 2 - PCV)08/19/2006dult Evscxog8308/19/2009HPV Vaccines (1 - 3-dose SCDM series)08/19/2014COVID-19 Vaccine (1 - season)2025Influenza Vaccine (#1)2025Zoster Vaccines (1 of 2)08/19/2037HIB VaccinesAged OutNo longer eligible based on patient's age to complete this topicIPV VaccinesAged OutNo longer eligible based on patient's age to complete this topicMeningococcal B VaccineAged OutNo longer eligible based on patient's age to complete this topicMeningococcal VaccineAged OutNo longer eligible based on patient's age to complete this topicRotavirus VaccinesAged Out No longer eligible based on patient's age to complete this topic Advance Directives * Full Code (Latest Code Status on File) Date ActivatedDate CedachnsulxSllfzqzr97/29/2024 6:22 AM02/29/2024 12:22 PM
[2025-04-19] MEDS: DIPHENHYDRAMINE HCL 25 MG CAPSULE PO (22:29)
--- NOTE | 2025-04-19 22:32 | PC.NURSE ---
i gave this patient verbal and written discharge orders also 1 Rx and this patient voices yes to understanding these. at time of discharge this patient voices no concerns, needs and shows no signs of distress
== END 2025-04-19 22:31 | disposition home or self-care (01) ==
PROVIDERS: Emergency Provider Emergency Medicine; PCP Nurse Practitioner Family
DX: L25.9 Unspecified contact dermatitis, unspecified cause (principal); F17.200 Nicotine dependence, unspecified, uncomplicated
CPT/HCPCS: 99283

== ENCOUNTER 2025-04-20 10:15 | Emergency (ER) | payer SELFPAY ==
--- OUTSIDE RECORDS SUMMARY | 2024-08-08 08:30 | XMS_ITS ---
Author Organization The [facility] in [place] Address [address] [place] [address] Care Team Providers Care Remote Encoding Operations Supervisor Name Role Phone Leighann Mahoney Primary Care Provider REASON FOR VISIT STILL SICK Encounters Encounter Location Date Provider Diagnosis [facility] [address] [place] [address] 08/08/2024 Leighann Mahoney Plan Of Treatment Next Appt Details Provider Name:Leighann doss, 04/20/2025 01:00:00 PM, [address] [place], [address], Provider Name:Leighann doss, 05/04/2025 09:30:00 AM, [address] [place] [address], [address], Progress Notes * Genesis PACKEROB:1985 (39 yo M)Acc No.[id number]:08/08/2024 UNLOCKED PROGRESS NOTE Progress Note Patient: Tristin CARL :?Leighann Mahoney ([facility]), CNPDOB:1985 ???Age:38 Y???Sex:MaleDate:08/08/2024Phone:[phone]:[address] [place], [place] Subjective: * Chief Complaints: * 1 . STILL SICK. * Medical History: Objective: * Vitals: Assessment: Plan: * Treatment: * * Electronic signature of Leighann Mahoney NP, ADMIN SECRETARY.DISPENSER OPERATOR.[id number] on 04/20/2025 at 11:41 AM ESTSign off status: PendingVisit Status:?OFF CANC (OFFICE CANCEL) * Provider: Phan Mahoney ([facility]), DISPENSER OPERATOR Date: 0 08/08/2024 Generated for Printing/Faxing/eTransmitting on:?04/20/2025 11:41 AM EST
--- OUTSIDE RECORDS SUMMARY | 2025-04-11 07:32 | XMS_ITS ---
Author Organization The [facility] in [place] Address [address] [place] [address] Care Team Providers Care Insect Control Inspector Name Role Phone Leighann Mahoney Primary Care Provider Encounters Encounter Location Date Provider Diagnosis Electronic Health Records [address] [place] [address] 04/11/2025 Leighann Mahoney Plan Of Treatment Next Appt Details Provider Name:Leighann doss, 04/20/2025 01:00:00 PM, [address] [facility] [place], [address], Provider Name:Leighann doss, 05/04/2025 09:30:00 AM, [address] [facility] [place], [place], [address], Progress Notes * Genesis PACKEROB:1985 (39 yo M)Acc No.[id number]:04/11/2025 Patient:?Tristin PACKER :1985???Age:39 Y???Sex:MalePhone:[phone] Address:[address] [place] [address] Subjective: * Chief Complaints: * * Medical History: * Surgical History: * Hospitalization/Major Diagno stic Procedure: * Medications: Objective: * Vitals: * Physical Examination: ??? Assessment: Plan: * Treatment: * Procedure Codes: * Preventive Medicine: ??Screenings/Counseling:?TOBACCO ACTION PLAN?Patient counselled on the dangers of tobacco use and urged to quit.? 04/03/2025 - -Date counseled * true * Date:?Generated for Printing/Faxing/eTransmitting on:?04/20/2025 11:41 AM EST
--- OUTSIDE RECORDS SUMMARY | 2025-04-17 03:44 | XMS_ITS ---
Author Organization The [facility] in [place] Address [address] [place] [address] Care Team Providers Care Quickbooks Bookkeeper Name Role Phone Leighann Mahoney Primary Care Provider Encounters Encounter Location Date Provider Diagnosis [facility] [address] [place] [address] 04/17/2025 Leighann Mahoney Plan Of Treatment Next Appt Details Provider Name:Leighann doss, 04/20/2025 01:00:00 PM, [address] [facility], [place], [address], Provider Name:Leighann doss, 05/04/2025 09:30:00 AM, [address] [facility], [facility], [place], [address], Progress Notes * Genesis PACKEROB:1985 (39 yo M)Acc No.[id number]:04/17/2025 Patient:?Tristin PACKER :1985???Age:39 Y???Sex:MalePhone:[phone] Address:[facility] [place] [address] [address] [place] [address] Subjective: * Chief Complaints: * * Medical History: * Surgical History: * Hospitalization/Major Diagno stic Procedure: * Medications: Objective: * Vitals: * Physical Examination: ??? Assessment: Plan: * Treatment: * Procedure Codes: * true * Date:?Generated for Printing/Faxing/eTransmitting on:?04/20/2025 11:41 AM EST
[2025-04-20 10:18] VITALS: BP 175/107; PULSE 78; O2SAT 98; BMI 36.1
--- NOTE | 2025-04-20 10:42 | ECG_ITS ---
[facility] Test Date: 2025-04-20 Pat Name: CHUCK PACKER Department: Room: - Gender: Male [employer] Ambassador: : 1985 Requested By: MERNA SORIANO Order Number: [id number] Fly MD: JITENDRA FOOTE M.D. Measurements Intervals [place] Rate: 86 P: 50 NH: 132 QRS: 38 QRSD: 82 T: 50 QT: 350 QTc: 393 Interpretive Statements 1100 Sinus rhythm ARTIFACT IN LEAD(S) 9110 normal ECG Compared to ECG 04/16/2025 18:04:48 ST (T wave) deviation no longer present Electronically Signed On 04-20-2025 18:45:14 EST by JITENDRA FOOTE M.D.
--- NOTE | 2025-04-20 11:18 | ED_ITS ---
HPI - Anxiety General Chief Complaint: Anxiety Stated Complaint: ANXIETY Time Seen by Provider: 04/20/25 11:17 Source: patient Mode of arrival: ambulance History of Present Illness HPI narrative: The patient is coming to us with history of anxiety is supposed to see his primary care just a few hours but he want some help while he is waiting, he ran out of his Ativan that he was prescribed from here 3 days ago No other complaints Related Data Home Medications ?Medication ?Instructions ?Recorded ?Confirmed fluoxetine 20 mg capsule 20 mg PO DAILY 04/11/2504/02 Previous Rx's ?Medication ?Instructions ?Recorded meclizine 25 mg chewable tablet 25 mg PO TID PRN dizzi ness or 03/17/25 (Antivert) vertigo #7 tabs metformin 500 mg tablet 500 mg PO DAILY #30 tabs Allergies Allergy/AdvReac Type Severity Reaction Status Date / Time erythromycin base Allergy Intermediate Rash Verified 04/20/25 10:18 Penicillins Allergy Intermediate Rash Verified 04/20/25 10:18 Review of Systems ROS Status of ROS 10 or more systems reviewed and unremark able except as noted in history and below PFSH [facility] Social History Smoking status: Current every day smoker Little interest or pleasure in doing things: not at all Feeling down, depressed, or hopeless: not at all Exam Narrative Exam Narrative: Nurses notes and vital signs reviewed and patient is not hypoxic. General: Well-appearing and in no apparent distress. Skin: Warm, dry, no pallor noted. No rash. Head: Normocephalic, atraumatic. Neck: Supple, non-tender. Eye: Pupils are equal, round and EOMI. No scleral icterus. Ears, Nose, Mouth, and Throat: TM are clear, no nasal mucosal hypertrophy. Oral mucosa is moist, no posterior oropharynx erythema, uvula is mid-line Cardiovascular: Regular Rate and Rhythm without murmur, gallop or rub. Respiratory: No accessory muscle use or respiratory distress. Lungs are clear to auscultation, no wheezing, rales or rhonchi Chest Wall: no tenderness Back: No midline thoracic or lumbar vertebral tenderness. No CVA tenderness Musculoskeletal: normal ROM, no calf or popliteal tenderness, no lower extremity edema/swelling GI: Abdomen is soft, non-distended. Normal bowel sounds. No masses appreciated. No tenderness to palpation. No rebound, guarding, or rigidity noted. Neurological: A&O x4. No cranial nerve dysfunction observed. No truncal ataxia. Moves all extremities. Sensation intact. Psychiatric: Cooperative and interactive. Normal mood and affect. Constitutional Vital Signs, click to edit/add: Last Vital Signs Pulse 77 04/20/25 11:52 Resp 18 04/20/25 11:52 BP 148/95 H 04/20/25 11:52 Pulse Ox 100 04/20/25 11:52 O2 Del Method Room Air 04/20/25 11:52 Course Vital Signs Vital signs: Vital Signs Pulse Rate 78 04/20/25 10:18 Respiratory Rate 22 H 04/20/25 10:18 Blood Pressure 175/107 H 04/20/25 10:18 Pulse Oximetry 98 04/20/25 10:18 Oxygen Delivery Method Room Air 04/20/25 10:18 Pulse Rate 77 04/20/25 11:52 Respiratory Rate 18 04/20/25 11:52 Blood Pressure 148/95 H 04/20/25 11:52 Pulse Oximetry 100 04/20/25 11:52 Oxygen Delivery Method Room Air 04/20/25 11:52 MDM - Anxiety MDM Narrative Medical decision making narrative: The patient EKG showing sinus rhythm with a heart rate of [address] elevation or depression Patient presents to us with anxiety symptoms of possibly having a panic attack and right now 1 dose of Ativan was enough for him to follow-up with his primary care within few hours for further evaluation his anxiety which was he need Patient will come back in case any new symptoms or concerns The patient to follow-up with the primary care within 2 to 3 days and to come back to the ER in case of any worsening of the current symptoms or any new symptoms or concerns Lab Data Labs: Lab Results 04/20/25 Range/Units 11:54 POC Glucose 145 H (74-106) mg/dL Discharge Plan Discharge Chief Complaint: Anxiety Clinical Impression: Anxiety Patient Disposition: Home, Self-Care Time of Disposition Decision: 11:38 Condition: Good Prescriptions / Home Meds: No Action metformin 500 mg tablet 500 mg PO DAILY Qty: 30 0RF fluoxetine 20 mg capsule 20 mg PO DAILY meclizine [Antivert] 25 mg tablet,chewable 25 mg PO TID PRN (Reason: dizziness or vertigo) Qty: 7 0RF Print Language: Bulgarian Instructions: Anxiety (ED) Referrals: MERNA SORIANO [Primary Care Provider, Family Practice] - 1 week Discharge Date/Time: 04/20/25 11:58
[2025-04-20] MEDS: LORAZEPAM 0.5 MG TABLET PO (11:39)
--- OUTSIDE RECORDS SUMMARY | 2025-04-20 11:41 | XMS_ITS | Clinical Summary ---
Author Organization [facility] Address [address] [place] [address] Care Team Providers Care Machine Operator Helper Name Role Phone Unavailable Primary Care Provider Unavailabl e Allergies Active AllergyReactionsCriticalityNoted DateCommentsErythromycinRashLow 02/23/2024Erythromycin PgwaMdaii05/23/1639PkxoncprkplMfvgp14/23/2024 Medications MedicationSigDispense QuantityRefillsLast FilledStart DateEnd DateStatus divalproex [...] (bright red blood per rectum)02/23/2024hange in bowel nxnlax3802/23/2024urrent smoker 02/23/2024 Overview (02/23/2024): Added secondary to documentation in Social History. Qjsrrtahsz19/23/2024Erectile dlnynavbsec33/23/2024Generalized anxiety disorder 02/23/2024GERD (gastroesophageal reflux disease)02/23/2024History of shingles 02/23/2024IBS (irritable bowel syndrome)02/23/20240675Niwidypsd39/23/2024Morbid ivzajrr6302/23/2024bdominal pain, vidtnvauas22/23/2024anic disorder without agoraphobia with mild panic mvgncew4202/23/2024ectal /23/2024 Ixsjk-Ujkzxwhsx-Zxxhs hurjqqpc85/23/2024nal pain02/23/2024 Social History Tobacco UseTypesPacks/DayYears UsedDateSmoking Tobacco: [...] file03/14/2024Sexually AbusedNot on file03/14/2024HQ-2AnswerDate RecordedPatient Health Questionnaire-2 Rcxey95605/14/2023Sex and Gender InformationValueDate RecordedSex Assigned at BirthNot on fileLegal SexMale 02/11/2024 3:19 PM EDTGender IdentityNot on fileSexual OrientationNot on file Last Filed Vital Signs Vital SignReadingTime TakenCommentsBlood Cjduhuif802/8903/14/2024 2:20 PM EST Cdfve831403/14/2024 2:20 PM QCFUyvzhytcupz29.6 ??C (97.8 ??F)03/14/2024 2:20 PM ESTRespiratory Diwl0443 9:45 AM EDTOxygen Zjojhgjbsg58%03/14/2024 2:20 PM ESTInhaled Oxygen Concentration--Wqbvnw393 kg (314 lb 3.2 oz)03/14/2024 2:20 PM COBOvtquc793.5 cm (6' 3 )03/14/2024 2:20 PM ESTBody Mass Index39.27105/14/2023 2:20 PM EST Plan of Treatment Health MaintenanceDue DateLast DoneCommentsDepression Quqkoebmq80/19/2000 Varicella Vaccines (1 of 2 - 13+ 2-dose series)08/19/2000Hepatitis B Vaccines (1 of 3 - 19+ 3-dose series)08/19/2006Pneumococcal Vaccine: Pediatrics (0 to 5 Years) and At-Risk Patients (6 to 64 Years) (1 of 2 - PCV)08/19/2006dult Zifpxrh8708/19/2009HPV Vaccines (1 - 3-dose SCDM series)08/19/2014COVID-19 Vaccine [...] (Latest Code Status on File) Date ActivatedDate ZqttjwfaifdCfcgoazl19/29/2024 6:22 AM02/29/2024 12:22 PM
--- OUTSIDE RECORDS SUMMARY | 2025-04-20 11:42 | XMS_ITS | Patient Health Record ---
Author Organization [facility] in [place] Address [address] [place] [address] Care Team Providers Care Environmental Manager Name Role Phone Leighann Soriano Primary Care Provider WaqartiffaniMartínez [phone] Allergies Allergen (clinical drug ingredient) Drug/Non Drug Allergy documented on EMR Reaction Allergy Type Onset Date Status erythromycin Erythromycin Base hives Drug Allergy Activepenicillin VPenicillin V PotassiumhivesDrug AllergyActive Results Component Value Reference Range Notes CBC AUTO DIFF Reviewed date:01/18/2025 10:48:48 AM Interpretation: Performing Lab: Notes/Report: [facility] , White Blood Count 8.4 4.0-11.0 10 3/uL Red Blood Count5.214.70-6.10 10 6/jESjqtqxjvan26.714.0-18.0 g/qESthffrppbk71.7 42.0-54.0 %Mean Corpuscular Osyzch73.980.0-94.0 fLMean Corpuscular Hemoglobin 30.125.9-34.0 pgMean Corpuscular HGB Conc35.929.9-35.2 g/dLRed Cell Distribution Width11.911.0-15.0 %Platelet Bhugx320108-268 10 3/uLMean Platelet Volume9.89.5- 13.5 fLNeutrophils Percent Auto63.743.0-75.0 %Lymphocytes Percent Auto30.520.5- 60.0 %Monocytes Percent Auto5.31.7-12.0 %Eosinophils Percent Auto0.20.9-7.0 % Basophils Percent Auto0.10.2-2.0 %Immature Granulocytes Pct Auto0.20.0-0.5 % Neutrophils Absolute Auto5.41.4-6.5 10 3/uLLymphocytes Absolute Auto2.61.2-3.8 10 3/uLMonocytes Absolute Auto0.50.3-0.8 10 3/uLEosinophils Absolute Auto0.00.0- 0.7 10 3/uLBasophils Absolute Auto0.00.0-0.1 10 3/uLImmature Granulocytes Abs Auto0.020.00-0.03 10 3/uLPerforming Lab:see noteML - [facility] LB D-DIMER Reviewed date:01/18/2025 10:48:48 AM Interpretation: Performing Lab: Notes/Report: [facility] ,D Dimer0.20<=0.59 mg/L FEU Increases in [...] generalized hospitalization. Performing Lab:see noteML - [facility] LBPROF CHEM 8 (BAS METB) Reviewed date:01/18/2025 10:48:48 AM Interpretation: Performing Lab: Notes/Report: [facility] ,Hrjloc366387-087 mmol/LPotassium4.03.5-5.1 mmol/SHvvfujfd54967-061 mmol/LCarbon Zxkilka70.221.0-32.0 mmol/LAnion Gap12.5Elblfwg83402-886 mg/dLBlood Urea Kaeeenvj64.07.0-18.0 mg/dLCreatinine1.070.70-1.30 mg/dLEstimated GFR ( Anupama>60>=60 mL/min/1.73m 2Estimated GFR (Non- Tia>60>=60 mL/min/1.73m 2BUN Creatinine Ratio15.8Uzrmjnu0.08.5-10.1 mg/dLPerforming Lab:see noteML - [facility] LBTroponin I High Sensitivity Reviewed date:01/18/2025 10:48:48 AM Interpretation: Performing Lab: Notes/Report: [facility] ,Troponin I High Sensitivity<4.04.0-76.1 pg/mL CUT-OFF POINTS HAVE BEEN ESTABLISHED BASED ON THE FOURTH UNIVERSAL DEFINITION OF MYOCARDIAL INFARCTION. THE UPPER REFERENCE LIMIT (URL) OF TROPONIN, DEFINED THE 99TH PERCENTILE OF cTnI DISTRIBUTION IN A REFERENCE POPULATION, HAS BEEN CONFIRMED THE DECISION THRESHOLD FOR [place] DIAGNOSIS. 99TH PERCENTILE = 76.2 PG/ML NOTE: HIGH-SENSITIVITY TROPONIN ASSAY IS NOT INTENDED TO BE USED IN ISOLATION BUT SHOULD BE INTERPRETED IN CONJUNCTION WITH OTHER DIAGNOSTIC AND CLINICAL INFORMATION. 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 Measurements Intervals [place] Rate: 94 P: 54 NE: 130 QRS: 44 QRSD: 74 T: 49 QT: 342 QTc: 394 Interpretive Statements [address] elevation, probably early repolarization 9130 borderline ECG Compared to ECG 07/30/2024 14:12:13 ST (T wave) deviation now present Early repolarization now present Left ventricular hypertrophy no longer present Electronically Signed On 01-17-2025 17:53:50 EDT by JITENDRA FOOTE M.D. Dictated By: JITENDRA FOOTE Signed By: 01/17/25 9114 DD/ 1339 TD/TT: Central Office Equipment Engineer:XR chest 1V Reviewed date:01/18/2025 10:48:48 AM Interpretation: Performing Lab: Notes/Report: Source Facility: [place] [address] XRay Report Signed Patient: CHUCK PACKER MR#: [id number] : 1985 Acct:[id number] Age/Sex: 39 / M ADM Date: 01/17/25 Loc: ER Attending Dr: Ordering Physician: Kacie Rodriguez Date of Service: 01/17/25 Procedure(s): XR chest 1V Accession Number(s): [id number] cc: LEIGHANN SORIANO ; Kcaie Rodriguez [place] [address] Patient Name: CHUCK PACKER MRN: [id number]:[id number] date: 1985 Sex: M Assigned Patient Location: ER Current Patient Location: ED.MAIN Accession/Order Number: [id number] Exam Date: 01/17/2025 14:02 Report Date: 01/17/2025 14:48 At the request of: KACIE RIZZO Procedure: XR chest 1V PA CHEST: CLINICAL HISTORY: Chest pain COMPARISON: 07/15/2024 Unremarkable cardiac mediastinal silhouette. Lungs clear. No effusion or pneumothorax. XR/XR chest 1V IMPRESSION: NEGATIVE ACUTE PLEURAL-PARENCHYMAL DISEASE. Impression dictated by: Chandler Fields M.D. 01/17/2025 2:48 PM Dictation Location: [place] [address] Electronically authenticated by: [id number] Y Date: 01/17/2025 14:48 Dictated By: Chandler Fields M.D. Signed By: 01/17/25 2250 DD/ 1448 TD/TT: Central Office Equipment Engineer:DRUG SCREEN RAPID (URINE) Reviewed date:03/19/2025 10:38:37 AM Interpretation: Performing Lab: Notes/Report: [facility] ,Cannabinoid Screen UrinePOSITIVENEGATIVEPhencyclidine Screen UrineNEGATIVE NEGATIVECocaine [...] 300 ng/mL Performing Lab:see noteML - [facility] LBUA Micro, reflex to culture Reviewed date:03/19/2025 10:38:37 AM Interpretation: Performing Lab: Notes/Report: [facility] ,Color UrineYELLOWYELLOWClarity UrineCLEARCLEARSpecific Wallace Urine1.025 1.005-1.025pH Urine6.05.0-9.0Protein UrineTRACENEG/TRACE mg/dLGlucose Urine UA NEGATIVENEGATIVE mg/dLBilirubin UrineNEGATIVENEGATIVEKetones UrineTRACENEGATIVE mg/dLBlood UrineSMALLNEGATIVENitrite UrineNEGATIVENEGATIVEUrobilinogen Urine0.2 0.2-1.0 EU/dLLeukocyte Esterase UrineNEGATIVENEGATIVEWBC UrineNONE SEENNONE SEEN #/HPFRBC Urine0-20-2 #/HPFBacteria UrineTRACENONE SEEN #/HPFMucus UrineTRACENONE SEENSquamous Epithelial Cell UrineRARENONE/RARE #/LPFCrystals Seen?None SeenNone Seen #/HPFCast Seen?NONE SEENNONE SEEN #/LPFPerforming Lab:see noteML - [facility] LBECG 12 lead Reviewed date:03/19/2025 10:38:37 AM Interpretation: Performing Lab: Notes/Report: Source Facility: [facility]-[address] [place] [address] [place] [address] Electrocardiograph Report Signed Patient: CHUCK PACKER MR#: [id number] : 1985 Acct:[id number] Age/Sex: 39 / M ADM Date: Loc: ER Attending Dr: Ordering Physician: Jil Benitez Date of Service: 03/17/25 Procedure(s): ECG 12 lead Accession Number(s): [id number] cc: [facility] Test Date: 2025-03-17 Pat Name: CHUCK PACKER Department: Room: - 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 Measurements Intervals [place] Rate: 89 P: 44 NE: 138 QRS: 26 QRSD: 80 T: 46 QT: 334 QTc: 381 Interpretive Statements 1100 Sinus rhythm [address] elevation [address] Twave abnormality 9130 borderline ECG Compared to ECG 01/28/2025 12:24:48 No significant changes Electronically Signed On 03-17-2025 12:57:47 EST by JITENDRA FOOTE M.D. Dictated By: JITENDRA FOOTE Signed By: 03/17/25 1258 DD/ 1232 TD/TT: Central Office Equipment Engineer:CBC AUTO DIFF Reviewed date:03/21/2025 08:53:55 PM Interpretation: Performing Lab: Notes/Report: [facility] ,White Blood Count6.94.0-11.0 10 3/uLRed Blood Count5.234.70-6.10 10 6/uL Tbvszufwgj34.914.0-18.0 g/uVFknpbqdxxy64.742.0-54.0 %Mean Corpuscular Gxkyuj52.5 80.0-94.0 fLMean Corpuscular Sjzfmtlfww11.425.9-34.0 pgMean Corpuscular HGB Conc 35.629.9-35.2 g/dLRed Cell Distribution Width12.111.0-15.0 %Platelet Xsbey593 150-450 10 3/uLMean Platelet Vegnvf01.29.5-13.5 fLNeutrophils Percent Auto63.3 43.0-75.0 %Lymphocytes Percent Auto30.820.5-60.0 %Monocytes Percent Auto4.91.7- 12.0 %Eosinophils Percent Auto0.60.9-7.0 %Basophils Percent Auto0.10.2-2.0 % Immature Granulocytes Pct Auto0.30.0-0.5 %Neutrophils Absolute Auto4.41.4-6.5 10 3/uLLymphocytes Absolute Auto2.11.2-3.8 10 3/uLMonocytes Absolute Auto0.30.3-0.8 10 3/uLEosinophils Absolute Auto0.00.0-0.7 10 3/uLBasophils Absolute Auto0.00.0- 0.1 10 3/uLImmature Granulocytes Abs Auto0.020.00-0.03 10 3/uLPerforming Lab:see noteML - [facility] LBDRUG SCREEN RAPID (URINE) Reviewed date:03/21/2025 08:53:55 PM Interpretation: Performing Lab: Notes/Report: [facility] ,Cannabinoid Screen UrinePOSITIVENEGATIVEPhencyclidine Screen UrineNEGATIVE NEGATIVECocaine [...] 300 ng/mL Performing Lab:see noteML - [facility] LBLIPASE Reviewed date:03/21/2025 08:53:56 PM Interpretation: Performing Lab: Notes/Report: [facility] ,Bhcvmr17.016.0-77.0 U/LPerforming Lab:see noteML - [facility] LBPROF 14(COMP METB) Reviewed date:03/21/2025 08:53:56 PM Interpretation: Performing Lab: Notes/Report: [facility] ,Ccdhmw799362-334 mmol/LPotassium3.83.5-5.1 mmol/FFijplyvo30078-990 mmol/LCarbon Lulthup47.321.0-32.0 mmol/LAnion Gap12.0Ilwsidp42522-674 mg/dLBlood Urea Wlwcayrg19.07.0-18.0 mg/dLCreatinine1.430.70-1.30 mg/dLEstimated GFR ( Anupama>60>=60 mL/min/1.73m 2Estimated GFR (Non- Ame56>=60 mL/min/1.73m 2 BUN Creatinine Ratio9.1Fqidkzh9.78.5-10.1 mg/dLBilirubin Total0.50.2-1.0 mg/dL Aspartate Amino Azzonnstjcn9191-94 U/LAlanine Trdjxohskfaroqfd1535-27 U/L Alkaline Ouxovheibox8833-133 U/LTotal Protein8.06.4-8.2 g/dLAlbumin Level3.53.4- 5.0 g/dLGlobulin4.5Albumin Globulin Ratio0.8Performing Lab:see noteML - [facility] LBUA (CLEAN or CATCH) VINYL CUTTER or MICRO IF IND. Reviewed date:03/21/2025 08:53:56 PM Interpretation: Performing Lab: Notes/Report: [facility] ,Color UrineYELLOWYELLOWClarity UrineCLEARCLEARSpecific Wallace Urine1.025 1.005-1.025pH Urine6.05.0-9.0Protein UrineNEGATIVENEG/TRACE mg/dLGlucose Urine UA>=1000NEGATIVE mg/dLBilirubin UrineNEGATIVENEGATIVEKetones UrineTRACENEGATIVE mg/dLBlood UrineSMALLNEGATIVENitrite UrineNEGATIVENEGATIVEUrobilinogen Urine0.2 0.2-1.0 EU/dLLeukocyte Esterase UrineNEGATIVENEGATIVEUrine Microscopic Indicated YESPerforming Lab:see noteML - [facility] LBTroponin I High Sensitivity Reviewed date:03/21/2025 08:53:56 PM Interpretation: Performing Lab: Notes/Report: [facility] ,Troponin I High Sensitivity<4.04.0-76.1 pg/mL CUT-OFF POINTS HAVE BEEN ESTABLISHED BASED ON THE FOURTH UNIVERSAL DEFINITION OF MYOCARDIAL INFARCTION. THE UPPER REFERENCE LIMIT (URL) OF TROPONIN, DEFINED THE 99TH PERCENTILE OF cTnI DISTRIBUTION IN A REFERENCE POPULATION, HAS BEEN CONFIRMED THE DECISION THRESHOLD FOR [place] DIAGNOSIS. 99TH PERCENTILE = 76.2 PG/ML NOTE: HIGH-SENSITIVITY TROPONIN ASSAY IS NOT INTENDED TO BE USED IN ISOLATION BUT SHOULD BE INTERPRETED IN CONJUNCTION WITH OTHER DIAGNOSTIC AND CLINICAL INFORMATION. 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 Measurements Intervals [place] Rate: 109 P: 58 NE: 120 QRS: 14 QRSD: 88 T: -59 [...] Signed By: 03/22/25 0604 DD/ 1739 TD/TT: Central Office Equipment Engineer:XR chest 1V Reviewed date:03/21/2025 08:53:56 PM Interpretation: Performing Lab: Notes/Report: Source Facility: [place] [address] XRay Report Signed Patient: CHUCK PACKER MR#: [id number] : 1985 Acct:[id number] Age/Sex: 39 / M ADM Date: Loc: ER Attending Dr: Ordering Physician: Kacie Rodriguez Date of Service: 03/21/25 Procedure(s): XR chest 1V Accession Number(s): [id number] cc: LEIGHANN SORIANO ; Kacie Rodriguez [place] [address] Patient Name: CHUCK PACKER MRN: [id number]:[id number] date: 1985 Sex: M Assigned Patient Location: ER Current Patient Location: ER Accession/Order Number: [id number] Exam Date: 03/21/2025 18:14 Report Date: 03/21/2025 [...] Chavez M.D. 03/21/2025 6:23 PM Dictation Location: [place] [address] Electronically authenticated by: [id number] Y Date: 03/21/2025 18:23 Dictated By: Jil Chavez D.O. Signed By: 03/21/251824 DD/ 22 TD/TT: Central Office Equipment Engineer:PROF COLLETTE Becker ([employer] MET) Reviewed date:04/12/2025 09:52:04 AM Interpretation: Performing Lab: Notes/Report: [facility] ,Idphkt951427-856 mmol/LPotassium3.83.5-5.1 mmol/LZlfldrko48896-505 mmol/LCarbon Vtnqilr25.921.0-32.0 mmol/LAnion Gap14.6Gimyymj88446-859 mg/dLBlood Urea Ozszqiuv78.07.0-18.0 mg/dLCreatinine1.180.70-1.30 mg/dLEstimated GFR ( Anupama>60>=60 mL/min/1.73m 2Estimated GFR (Non- Tia>60>=60 mL/min/1.73m 2BUN Creatinine Ratio9.2Risbbqr9.38.5-10.1 mg/dLPerforming Lab:see noteML - [facility] LBUrine Culture - [facility] Reviewed date:04/16/2025 08:26:30 AM Interpretation: Performing Lab: Notes/Report: [facility] ,Urine Culture - FRMCSee Below For Report Urine Culture - [facility] SEEFR [facility] RESULT^[facility] RESULT Urine Culture - FRMCSEEN SEE SCANNED REPORT, NORMAL^SEE SCANNED REPORT, NORMAL Urine Culture - [facility] SEEFR [facility] RESULT^[facility] RESULT Performing Lab:see noteML - [facility] LBCBC AUTO DIFF Reviewed date:04/17/2025 09:41:27 AM Interpretation: Performing Lab: Notes/Report: [facility] ,White Blood Count5.34.0-11.0 10 3/uLRed Blood Count5.394.70-6.10 10 6/uL Witisdbrpz11.214.0-18.0 g/mGVaucsplfhe63.342.0-54.0 %Mean Corpuscular Dztins23.0 80.0-94.0 fLMean Corpuscular Vzjljeypwd32.125.9-34.0 pgMean Corpuscular HGB Conc 35.829.9-35.2 g/dLRed Cell Distribution Width12.111.0-15.0 %Platelet Yrtkt660 150-450 10 3/uLMean Platelet Volume9.79.5-13.5 fLNeutrophils Percent Auto58.6 43.0-75.0 %Lymphocytes Percent Auto34.420.5-60.0 %Monocytes Percent Auto6.21.7- 12.0 %Eosinophils Percent Auto0.40.9-7.0 %Basophils Percent Auto0.20.2-2.0 % Immature Granulocytes Pct Auto0.20.0-0.5 %Neutrophils Absolute Auto3.11.4-6.5 10 3/uLLymphocytes Absolute Auto1.81.2-3.8 10 3/uLMonocytes Absolute Auto0.30.3-0.8 10 3/uLEosinophils Absolute Auto0.00.0-0.7 10 3/uLBasophils Absolute Auto0.00.0- 0.1 10 3/uLImmature Granulocytes Abs Auto0.010.00-0.03 10 3/uLPerforming Lab:see noteML - [facility] LBPROF CHEM 8 (BAS METB) Reviewed date:04/17/2025 09:41:27 AM Interpretation: Performing Lab: Notes/Report: [facility] ,Dceeku720999-993 mmol/LPotassium3.53.5-5.1 mmol/BDjxatzxw21002-990 mmol/LCarbon Lgphtky56.521.0-32.0 mmol/LAnion Gap12.6Sxancrx85182-205 mg/dLBlood Urea Ccdflfdh93.07.0-18.0 mg/dLCreatinine1.120.70-1.30 mg/dLEstimated GFR ( Anupama>60>=60 mL/min/1.73m 2Estimated GFR (Non- Tia>60>=60 mL/min/1.73m 2BUN Creatinine Ratio9.6Pvjlrpj9.28.5-10.1 mg/dLPerforming Lab:see noteML - [facility] LBUA (CLEAN or CATCH) VINYL CUTTER or MICRO IF IND. Reviewed date:04/17/2025 09:41:27 AM Interpretation: Performing Lab: Notes/Report: [facility] ,Color UrineLT. YELLOWYELLOWClarity UrineCLEARCLEARSpecific Wallace Urine1.010 1.005-1.025pH Urine6.55.0-9.0Protein UrineNEGATIVENEG/TRACE mg/dLGlucose Urine UANEGATIVENEGATIVE mg/dLBilirubin UrineNEGATIVENEGATIVEKetones UrineNEGATIVE NEGATIVE mg/dLBlood UrineTRACE-INEGATIVENitrite UrineNEGATIVENEGATIVE Urobilinogen Urine1.00.2-1.0 EU/dLLeukocyte Esterase UrineTRACENEGATIVEUrine Microscopic IndicatedYESPerforming Lab:see note - [facility] LB Troponin I High Sensitivity Reviewed date:04/17/2025 09:41:27 AM Interpretation: Performing Lab: Notes/Report: [facility] ,Troponin I High Sensitivity5.74.0-76.1 pg/mL CUT-OFF POINTS HAVE BEEN ESTABLISHED BASED ON THE FOURTH UNIVERSAL DEFINITION OF MYOCARDIAL INFARCTION. THE UPPER REFERENCE LIMIT (URL) OF TROPONIN, DEFINED THE 99TH PERCENTILE OF cTnI DISTRIBUTION IN A REFERENCE POPULATION, HAS BEEN CONFIRMED THE DECISION THRESHOLD FOR [place] DIAGNOSIS. 99TH PERCENTILE = 76.2 PG/ML NOTE: HIGH-SENSITIVITY TROPONIN ASSAY IS NOT INTENDED TO BE USED IN ISOLATION BUT SHOULD BE INTERPRETED IN CONJUNCTION WITH OTHER DIAGNOSTIC AND CLINICAL INFORMATION. Performing Lab:see noteML - [facility] LBECG 12 lead Reviewed date:04/18/2025 08:33:51 AM Interpretation: Performing Lab: Notes/Report: Source Facility: [facility]-[address] [place] [address] [place] [address] Electrocardiograph Report Signed Patient: CHUCK PACKER MR#: [id number] : 1985 Acct:[id number] Age/Sex: 39 / M ADM Date: 04/16/25 Loc: ER Attending Dr: Ordering Physician: Kacie Rodriguze Date of Service: 04/16/25 Procedure(s): ECG 12 lead Accession Number(s): [id number] cc: [facility] Test Date: 2025-04-16 Pat Name: CHUCK PACKER Department: Room: - 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 Signed By: 04/17/25 1643 DD/ 1804 TD/TT: Central Office Equipment Engineer:ECG 12 lead (Not yet reviewed by provider) Interpretation: Performing Lab: Notes/Report: Source Facility: [place] [address] Electrocardiograph Report Draft Patient: CHUCK PACKER MR#: [id number] : 1985 Acct:[id number] Age/Sex: 39 / M ADM Date: Loc: ER Attending Dr: Ordering Physician: Marcela Christensen Date of Service: 04/20/25 Procedure(s): ECG 12 lead Accession Number(s): [id number] cc: [facility] Test Date: 2025-04-20 Pat Name: CHUCK PACKER Department: Room: - Gender: Male Safety Specialist: : 1985 Requested By: 1854 Order Number: [id number] Reading MD: Measurements Intervals [place] Rate: 86 P: 50 NE: 132 QRS: 38 QRSD: 82 T: 50 QT: 350 QTc: 393 Interpretive Statements 1100 Sinus rhythm 9110 normal ECG No previous ECG available for comparison Dictated By: Moises Mata Signed By: DD/ 1026 TD/TT: Central Office Equipment Engineer:ECG 12 lead Reviewed date:04/12/2025 09:52:04 AM Interpretation: Performing Lab: Notes/Report: Source Facility: [place] [address] [place] [address] Electrocardiograph Report Signed Patient: CHUCK PACKER MR#: [id number] : 1985 Acct:[id number] Age/Sex: 39 / M ADM Date: 04/11/25 Loc: ER Attending Dr: Ordering Physician: Leyda Barrientos M.D. Date of Service: 04/11/25 Procedure(s): ECG 12 lead Accession Number(s): [id number] cc: [facility] Test Date: 2025-04-11 Pat Name: CHUCK PACKER Department: Room: - Gender: Male Safety Specialist: : 1985 Requested By: 1030 Order Number: [id number] Reading MD: JITENDRA FOOTE M.D. Measurements Intervals [place] Rate: 93 P: 42 NE: 124 QRS: 40 QRSD: 76 T: 49 QT: 318 QTc: 369 Interpretive Statements 1100 Sinus rhythm 4068 Nonspecific Twave abnormality 9130 borderline ECG Compared to ECG 03/21/2025 17:39:38 Sinus tachycardia no longer present ST (T wave) deviation no longer present Electronically Signed On 04-11-2025 14:21:09 EST by JITENDRA FOOTE M.D. Dictated By: JITENDRA FOOTE Signed By: 04/11/25 1421 DD/ 1227 TD/TT: Central Office Equipment Engineer:MAYITO RANDOM W or MICROSCOPIC Reviewed date:04/12/2025 09:52:04 AM Interpretation: Performing Lab: Notes/Report: [facility] ,Color UrineYELLOWYELLOWClarity UrineCLEARCLEARSpecific Wallace Urine1.025 1.005-1.025pH Urine6.05.0-9.0Protein UrineTRACENEG/TRACE mg/dLGlucose Urine UA NEGATIVENEGATIVE mg/dLBilirubin UrineNEGATIVENEGATIVEKetones UrineTRACENEGATIVE mg/dLBlood UrineSMALLNEGATIVENitrite UrineNEGATIVENEGATIVEUrobilinogen Urine0.2 0.2-1.0 EU/dLLeukocyte Esterase UrineTRACENEGATIVEWBC Urine2-5NONE SEEN #/HPFRBC Urine0-20-2 #/HPFBacteria UrineMODERATENONE SEEN #/HPFMucus UrineMODERATENONE SEENSquamous Epithelial Cell UrineRARENONE/RARE #/LPFCrystals Seen?None SeenNone Seen #/HPFCast Seen?SEENNONE SEEN #/LPFHyaline Casts UrineRAREUrine Culture IndicatedYES-MCPerforming Lab:see noteML - [facility] LBCBC AUTO DIFF Reviewed date:04/12/2025 09:52:04 AM Interpretation: Performing Lab: Notes/Report: [facility] ,White Blood Count7.14.0-11.0 10 3/uLRed Blood Count5.624.70-6.10 10 6/uL Pfzlftbdth79.114.0-18.0 g/xQDjkzivkdsz66.342.0-54.0 %Mean Corpuscular Bbfzwr78.2 80.0-94.0 fLMean Corpuscular Kyxnirxpkr73.425.9-34.0 pgMean Corpuscular HGB Conc 36.229.9-35.2 g/dLRed Cell Distribution Width12.011.0-15.0 %Platelet Psfat950 150-450 10 3/uLMean Platelet Volume9.89.5-13.5 fLNeutrophils Percent Auto67.3 43.0-75.0 %Lymphocytes Percent Auto26.920.5-60.0 %Monocytes Percent Auto5.01.7- 12.0 %Eosinophils Percent Auto0.30.9-7.0 %Basophils Percent Auto0.10.2-2.0 % Immature Granulocytes Pct Auto0.40.0-0.5 %Neutrophils Absolute Auto4.81.4-6.5 10 3/uLLymphocytes Absolute Auto1.91.2-3.8 10 3/uLMonocytes Absolute Auto0.40.3-0.8 10 3/uLEosinophils Absolute Auto0.00.0-0.7 10 3/uLBasophils Absolute Auto0.00.0- 0.1 10 3/uLImmature Granulocytes Abs Auto0.030.00-0.03 10 3/uLPerforming Lab:see noteML - [facility] LBXR abdomen 1V Reviewed date:04/02/2025 08:41:29 AM Interpretation: Performing Lab: Notes/Report: Source Facility: [facility]-[address] [place] [address] [address] XRay Report Signed Patient: CHUCK PACKER MR#: [id number] : 1985 Acct:[id number] Age/Sex: 39 / M ADM Date: 04/01/25 Loc: ER Attending Dr: Ordering Physician: Leyda Barrientos M.D. Date of Service: 04/01/25 Procedure(s): XR abdomen 1V Accession Number(s): [id number] cc: LEIGHANN SORIANO ; Leyda Barrientos M.D. The [place] [address] Patient Name: CHUCK PACKER MRN: [id number] date: 1985 Sex: M Assigned Patient Location: ER Current Patient Location: ER Accession/Order Number: [id number] Exam Date: 04/01/2025 12:20 Report Date: 04/01/2025 [...] 04/01/2025 12:35 PM Dictation Location: [place] [address] Electronically authenticated by: [id number] Y Date: 04/01/2025 12:35 Dictated By: Antione Enamorado M.D. Signed By: 04/01/25 1238 DD/ 1235 TD/TT: Central Office Equipment Engineer:Chlamydia/GC Amplification Reviewed date:03/27/2025 08:15:33 AM Interpretation: Performing Lab: Notes/Report: Urine [facility] ,Chlamydia trachomatis, NAANegativeNegativeNeisseria gonorrhoeae, NAANegative Negative Performed at: = - [facility] [address] [id number] Early Childhood Associate: Ava Max MD, Phone: [phone] Performing Lab:see noteLC - [facility] LBTSH Reviewed date:03/21/2025 08:53:56 PM Interpretation: Performing Lab: Notes/Report: [facility] ,Thyroid Stimulating Hormone1.2350.358-3.740 uIU/mLPerforming Lab:see noteML - [facility] LBCT head/brain wo con Reviewed date:03/19/2025 10:38:37 AM Interpretation: Performing Lab: Notes/Report: Source Facility: [place] [address] CT Scan Report Signed Patient: CHUCK PACKER MR#: [id number] : 1985 Acct:[id number] Age/Sex: 39 / M ADM Date: Loc: ER Attending Dr: Ordering Physician: Jil Benitez Date of Service: 03/17/25 Procedure(s): CT head/brain wo con Accession Number(s): [id number] cc: LEIGHANN SORIANO [place] [address] Patient Name: CHUCK PACKER MRN: [id number] date: 1985 Sex: M Assigned Patient Location: ER Current Patient Location: ER Accession/Order Number: [id number] Exam Date: 03/17/2025 13:00 Report Date: 03/17/2025 [...] Chavez M.D. 03/17/2025 1:45 PM Dictation Location: [place] [address] Electronically authenticated by: [id number] Y Date: 03/17/2025 13:45 Dictated By: Jil Chavez D.O. Signed By: 03/17/257 DD/ 44 TD/TT: Central Office Equipment Engineer:XR chest 2V Reviewed date:03/19/2025 10:38:37 AM Interpretation: Performing Lab: Notes/Report: Source Facility: [place] [address] XRay Report Signed Patient: CHUCK PACKER MR#: [id number] : 1985 Acct:[id number] Age/Sex: 39 / M ADM Date: Loc: ER Attending Dr: Ordering Physician: Jil Benitez Date of Service: 03/17/25 Procedure(s): XR chest 2V Accession Number(s): [id number] cc: LEIGHANN SORIANO ; Jil Benitez [place] [id number] Patient Name: CHUCK PACKER MRN: [id number] date: 1985 Sex: M Assigned Patient Location: ER Current Patient Location: ER Accession/Order Number: [id number] Exam Date: 03/17/2025 13:00 Report Date: 03/17/2025 [...] Chavez M.D. 03/17/2025 1:46 PM Dictation Location: [facility] Electronically authenticated by: [id number] Y Date: 03/17/2025 13:46 Dictated By: Jil Chavez D.O. Signed By: 03/17/258 DD/ 45 TD/TT: Central Office Equipment Engineer:SARS-CoV-2 Ag* Reviewed date:03/19/2025 10:38:37 AM Interpretation: Performing Lab: Notes/Report: [facility] ,SARS-CoV-2 AgNEGATIVENEGATIVE This test has not [...] revoked sooner. Performing Lab:see noteML - [facility] LBTroponin I High Sensitivity Reviewed date:03/19/2025 10:38:37 AM Interpretation: Performing Lab: Notes/Report: [facility] ,Troponin I High Sensitivity5.34.0-76.1 pg/mL CUT-OFF POINTS HAVE BEEN ESTABLISHED BASED ON THE FOURTH UNIVERSAL DEFINITION OF MYOCARDIAL INFARCTION. THE UPPER REFERENCE LIMIT (URL) OF TROPONIN, DEFINED THE 99TH PERCENTILE OF cTnI DISTRIBUTION IN A REFERENCE POPULATION, HAS BEEN CONFIRMED THE DECISION THRESHOLD FOR [place] DIAGNOSIS. 99TH PERCENTILE = 76.2 PG/ML NOTE: HIGH-SENSITIVITY TROPONIN ASSAY IS NOT INTENDED TO BE USED IN ISOLATION BUT SHOULD BE INTERPRETED IN CONJUNCTION WITH OTHER DIAGNOSTIC AND CLINICAL INFORMATION. Performing Lab:see noteML - [facility] LBPROF 14(COMP METB) Reviewed date:03/19/2025 10:38:37 AM Interpretation: Performing Lab: Notes/Report: [facility] ,Gfguyu344150-759 mmol/LPotassium3.93.5-5.1 mmol/KOlnccjan78028-782 mmol/LCarbon Smpcvfa98.321.0-32.0 mmol/LAnion Gap13.4Snnosvn04630-468 mg/dLBlood Urea Wdkffhxs30.07.0-18.0 mg/dLCreatinine1.030.70-1.30 mg/dLEstimated GFR ( Anupama>60>=60 mL/min/1.73m 2Estimated GFR (Non- Tia>60>=60 mL/min/1.73m 2BUN Creatinine Ratio13.4Gfpwpeh6.38.5-10.1 mg/dLBilirubin Total0.70.2-1.0 mg/dL Aspartate Amino Crrrsrhxejk6255-71 U/LAlanine Zbaurzkzdqxukiea4174-53 U/L Alkaline Kxarmnazpps7742-163 U/LTotal Protein8.66.4-8.2 g/dLAlbumin Level3.93.4- 5.0 g/dLGlobulin4.7Albumin Globulin Ratio0.8Performing Lab:see noteML - [facility] LBLIPASE Reviewed date:03/19/2025 10:38:37 AM Interpretation: Performing Lab: Notes/Report: [facility] ,Qazzhk01.016.0-77.0 U/LPerforming Lab:see noteML - [facility] LB INFLUENZA A AND B AG Reviewed date:03/19/2025 10:38:37 AM Interpretation: Performing Lab: Notes/Report: [facility] ,Influenza Virus A AntigenNegative Negative for [...] the test. Performing Lab:see noteML - [facility] LBCBC AUTO DIFF Reviewed date:03/19/2025 10:38:37 AM Interpretation: Performing Lab: Notes/Report: [facility] ,White Blood Count7.14.0-11.0 10 3/uLRed Blood Count5.474.70-6.10 10 6/uL Eppaadbmjd05.614.0-18.0 g/nJUvbewftcdx12.142.0-54.0 %Mean Corpuscular Wrupdq89.3 80.0-94.0 fLMean Corpuscular Lotfreysaz37.325.9-34.0 pgMean Corpuscular HGB Conc 36.029.9-35.2 g/dLRed Cell Distribution Width12.111.0-15.0 %Platelet Dxfwf485 150-450 10 3/uLMean Platelet Rlolzr15.19.5-13.5 fLNeutrophils Percent Auto58.3 43.0-75.0 %Lymphocytes Percent Auto35.320.5-60.0 %Monocytes Percent Auto5.61.7- 12.0 %Eosinophils Percent Auto0.40.9-7.0 %Basophils Percent Auto0.10.2-2.0 % Immature Granulocytes Pct Auto0.30.0-0.5 %Neutrophils Absolute Auto4.11.4-6.5 10 3/uLLymphocytes Absolute Auto2.51.2-3.8 10 3/uLMonocytes Absolute Auto0.40.3-0.8 10 3/uLEosinophils Absolute Auto0.00.0-0.7 10 3/uLBasophils Absolute Auto0.00.0- 0.1 10 3/uLImmature Granulocytes Abs Auto0.020.00-0.03 10 3/uLPerforming Lab:see noteML - [facility] LBXR chest 1V Reviewed date:01/29/2025 09:03:45 AM Interpretation: Performing Lab: Notes/Report: Source Facility: [facility]-[address] [place] [address] [address] XRay Report Signed Patient: CHUCK PACKER MR#: [id number] : 1985 Acct:[id number] Age/Sex: 39 / M ADM Date: 01/28/25 Loc: ER Attending Dr: Ordering Physician: Leyda Barrientos M.D. Date of Service: 01/28/25 Procedure(s): XR chest 1V Accession Number(s): [id number] cc: LEIGHANN SORIANO ; Leyda Barrientos M.D. [place] [address] Patient Name: CHUCK PACKER MRN: [id number] date: 1985 Sex: M Assigned Patient Location: ED.MAIN Current Patient Location: ED.MAIN Accession/Order Number: [id number] Exam Date: 01/28/2025 13:33 Report Date: 01/28/2025 [...] 01/28/2025 2:07 PM Dictation Location: [place] [address] Electronically authenticated by: [id number] Y Date: 01/28/2025 14:07 Dictated By: Antione Enamorado M.D. Signed By: 01/28/25 1410 DD/ 1407 TD/TT: Central Office Equipment Engineer:ECG 12 lead Reviewed date:01/29/2025 03:35:15 PM Interpretation: Performing Lab: Notes/Report: Source Facility: [place] [address] [place] [address] Electrocardiograph Report Signed Patient: CHUCK PACKER MR#: [id number] : 1985 Acct:[id number] Age/Sex: 39 / M ADM Date: 01/28/25 Loc: ER Attending Dr: Ordering Physician: Leyda Barrientos M.D. 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 Signed By: 01/29/25 1514 DD/ 1224 TD/TT: Central Office Equipment Engineer:Troponin I High Sensitivity Reviewed date:01/29/2025 09:03:45 AM Interpretation: Performing Lab: Notes/Report: [facility] ,Troponin I High Sensitivity4.94.0-76.1 pg/mL CUT-OFF POINTS HAVE BEEN ESTABLISHED BASED ON THE FOURTH UNIVERSAL DEFINITION OF MYOCARDIAL INFARCTION. THE UPPER REFERENCE LIMIT (URL) OF TROPONIN, DEFINED THE 99TH PERCENTILE OF cTnI DISTRIBUTION IN A REFERENCE POPULATION, HAS BEEN CONFIRMED THE DECISION THRESHOLD FOR [place] DIAGNOSIS. 99TH PERCENTILE = 76.2 PG/ML NOTE: HIGH-SENSITIVITY TROPONIN ASSAY IS NOT INTENDED TO BE USED IN ISOLATION BUT SHOULD BE INTERPRETED IN CONJUNCTION WITH OTHER DIAGNOSTIC AND CLINICAL INFORMATION. Performing Lab:see noteML - [facility] LBPROF CHEM 8 (BAS METB) Reviewed date:01/29/2025 09:03:45 AM Interpretation: Performing Lab: Notes/Report: [facility] ,Yydlgi725803-819 mmol/LPotassium3.93.5-5.1 mmol/IWbxgsgbv36922-903 mmol/LCarbon Wruskme95.021.0-32.0 mmol/LAnion Gap15.9Adyjcdz21224-389 mg/dLBlood Urea Dzgybldf75.07.0-18.0 mg/dLCreatinine0.940.70-1.30 mg/dLEstimated GFR ( Anupama>60>=60 mL/min/1.73m 2Estimated GFR (Non- Tia>60>=60 mL/min/1.73m 2BUN Creatinine Ratio13.0Hgfrvnq2.18.5-10.1 mg/dLPerforming Lab:see noteML - [facility] LBD-DIMER Reviewed date:01/29/2025 09:03:45 AM Interpretation: Performing Lab: Notes/Report: [facility] ,D Dimer<0.19<=0.59 mg/L FEU Increases in [...] and generalized hospitalization. Performing Lab:see noteML - [facility] LBCBC AUTO DIFF Reviewed date:01/29/2025 09:03:45 AM Interpretation: Performing Lab: Notes/Report: [facility] ,White Blood Count7.74.0-11.0 10 3/uLRed Blood Count5.164.70-6.10 10 6/uL Tdkayhrnuv91.814.0-18.0 g/pTBitpzgsuoo72.342.0-54.0 %Mean Corpuscular Swyovi25.9 80.0-94.0 fLMean Corpuscular Cjbhexiptc02.625.9-34.0 pgMean Corpuscular HGB Conc 36.529.9-35.2 g/dLRed Cell Distribution Width12.011.0-15.0 %Platelet Hlqab843 150-450 10 3/uLMean Platelet Volume9.89.5-13.5 fLNeutrophils Percent Auto60.1 43.0-75.0 %Lymphocytes Percent Auto32.820.5-60.0 %Monocytes Percent Auto6.11.7- 12.0 %Eosinophils Percent Auto0.40.9-7.0 %Basophils Percent Auto0.30.2-2.0 % Immature Granulocytes Pct Auto0.30.0-0.5 %Neutrophils Absolute Auto4.61.4-6.5 10 3/uLLymphocytes Absolute Auto2.51.2-3.8 10 3/uLMonocytes Absolute Auto0.50.3-0.8 10 3/uLEosinophils Absolute Auto0.00.0-0.7 10 3/uLBasophils Absolute Auto0.00.0- 0.1 10 3/uLImmature Granulocytes Abs Auto0.020.00-0.03 10 3/uLPerforming Lab:see noteML - [facility] LBTroponin I High Sensitivity Reviewed date:01/18/2025 10:48:48 AM Interpretation: Performing Lab: Notes/Report: [facility] ,Troponin I High Sensitivity4.24.0-76.1 pg/mL CUT-OFF POINTS HAVE BEEN ESTABLISHED BASED ON THE FOURTH UNIVERSAL DEFINITION OF MYOCARDIAL INFARCTION. THE UPPER REFERENCE LIMIT (URL) OF TROPONIN, DEFINED THE 99TH PERCENTILE OF cTnI DISTRIBUTION IN A REFERENCE POPULATION, HAS BEEN CONFIRMED THE DECISION THRESHOLD FOR [place] DIAGNOSIS. 99TH PERCENTILE = 76.2 PG/ML NOTE: HIGH-SENSITIVITY TROPONIN ASSAY IS NOT INTENDED TO BE USED IN ISOLATION BUT SHOULD BE INTERPRETED IN CONJUNCTION WITH OTHER DIAGNOSTIC AND CLINICAL INFORMATION. Performing Lab:see noteML - [facility] SAKEYH-XbA-5 Ag* Reviewed date:01/18/2025 10:48:48 AM Interpretation: Performing Lab: Notes/Report: [facility] ,SARS-CoV-2 AgNEGATIVENEGATIVE This test has not [...] or authorization is revoked sooner. Performing Lab:see note - [facility] LBDRUG SCREEN RAPID (URINE) Reviewed date:01/18/2025 10:48:48 AM Interpretation: Performing Lab: Notes/Report: [facility] ,Cannabinoid Screen UrinePOSITIVENEGATIVEPhencyclidine Screen UrineNEGATIVE NEGATIVECocaine [...] Antidepressants): 300 ng/mL Performing Lab:see note - [facility] LBECG 12 lead Reviewed date:08/06/2024 09:47:04 PM Interpretation: Performing Lab: Notes/Report: Source Facility: [facility]-[address] [place] [address] [place] [address] Electrocardiograph Report Signed Patient: CHUCK PACKER MR#: [id number] : 1985 Acct:[id number] Age/Sex: 38 / M ADM Date: 07/30/24 Loc: ER Attending Dr: Ordering Physician: Leyda Barrientos M.D. 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 Measurements Intervals [place] Rate: 95 P: 44 NE: 120 QRS: 15 QRSD: 76 T: -5 [...] FOOTE Signed By: 07/30/242019 DD/ 11 TD/TT: Central Office Equipment Engineer:PROF [place] 8 ([facility]) Reviewed date:08/06/2024 09:47:04 PM Interpretation: Performing Lab: Notes/Report: [facility] ,Tkczdj188174-400 mmol/LPotassium4.03.5-5.1 mmol/CYoggnyns17322-340 mmol/LCarbon Atesjiy14.321.0-32.0 mmol/LAnion Gap12.1Ndfanup88142-328 mg/dLBlood Urea Jbruzjsg94.07.0-18.0 mg/dLCreatinine1.100.70-1.30 mg/dLEstimated GFR ( Anupama>60>=60 mL/min/1.73m 2Estimated GFR (Non- Tia>60>=60 mL/min/1.73m 2BUN Creatinine Ratio11.0Ghuhutc7.98.5-10.1 mg/dLPerforming Lab:see noteML - [facility] LBCBC AUTO DIFF Reviewed date:08/06/2024 09:47:04 PM Interpretation: Performing Lab: Notes/Report: [facility] ,White Blood Count7.44.0-11.0 10 3/uLRed Blood Count4.934.70-6.10 10 6/uL Utpmvtfnrj89.014.0-18.0 g/fVWvzwvfgpnc40.142.0-54.0 %Mean Corpuscular Qryeib91.4 80.0-94.0 fLMean Corpuscular Dyqearhvya02.425.9-34.0 pgMean Corpuscular HGB Conc 35.629.9-35.2 g/dLRed Cell Distribution Width12.611.0-15.0 %Platelet Jzlem643 150-450 10 3/uLMean Platelet Volume9.69.5-13.5 fLNeutrophils Percent Auto69.9 43.0-75.0 %Lymphocytes Percent Auto23.820.5-60.0 %Monocytes Percent Auto5.41.7- 12.0 %Eosinophils Percent Auto0.30.9-7.0 %Basophils Percent Auto0.30.2-2.0 % Immature Granulocytes Pct Auto0.30.0-0.5 %Neutrophils Absolute Auto5.21.4-6.5 10 3/uLLymphocytes Absolute Auto1.81.2-3.8 10 3/uLMonocytes Absolute Auto0.40.3-0.8 10 3/uLEosinophils Absolute Auto0.00.0-0.7 10 3/uLBasophils Absolute Auto0.00.0- 0.1 10 3/uLImmature Granulocytes Abs Auto0.020.00-0.03 10 3/uLPerforming Lab:see noteML - [facility] LBCOVID-19, Flu A+B IH Reviewed date:03/19/2025 10:38:37 AM Interpretation: Performing Lab: Notes/Report: COVIDnegFLU AnegFLU BnegControlposXR chest 1V Reviewed date:04/12/2025 09:52:04 AM Interpretation: Performing Lab: Notes/Report: Source Facility: [facility]-[address] [place] [address] [place] [address] XRay Report Signed Patient: CHUCK PACKER MR#: [id number] : 1985 Acct:[id number] Age/Sex: 39 / M ADM Date: 04/11/25 Loc: ER Attending Dr: Ordering Physician: Leyda Barrientos M.D. Date of Service: 04/11/25 Procedure(s): XR chest 1V Accession Number(s): [id number] cc: LEIGHANN SORIANO ; Leyda Barrientos M.D. [place] [id number] Patient Name: CHUCK PACKER MRN: [facility]:[id number] date: 1985 Sex: M Assigned Patient Location: ER Current Patient Location: ED.MAIN Accession/Order Number: [id number] Exam Date: 04/11/2025 12:34 Report Date: 04/11/2025 [...] Luther M.D. 04/11/2025 12:55 PM Dictation Location: [place] [address] Electronically authenticated by: [id number] Y Date: 04/11/2025 12:55 Dictated By: Almaz Luther M.D. Signed By: 04/11/25 1257 DD/ 1255 TD/TT: Central Office Equipment Engineer: Reason For Referral No Information Medications Medication SIG (Take, Route, Frequency, Duration) Notes Start Date End Date Status hydrOXYzine HCl 50 MG TAKE 1 TABLET IN T HE AM AND 1 IN THE PM NEEDED; Duration: 30 ActiveFLUoxetine HCl 20 MG1 capsule Orally Once a day; Duration: 30 days 5ActiveHyoscyamine Sulfate 0.125 MG1-2 tabs SL SL every 4 hrs PRN abd pain5ActiveMupirocin 2 %1 application Externally Twice a day; Duration: 5 days4ActiveOLANZapine 15 MG1 tablet Orally Once a day; Duration: 30 days06/01/2024Not-TakingOndansetron HCl 4 MG1 tablet Orally BID prn; Duration: 7 06/15/2024tivemetFORMIN HCl 500 MG1 tablet with a meal Orally Once a day; Duration: 30 daysActivePantoprazole Sodium 40 MG1 tablet Orally Once a day; Duration: 30 day(s)12/07/2023ctiveBenzonatate 200 MG1 capsule as needed Orally Three times a day; Duration: 7 days07/17/2024tivetraZODone HCl 50 MG1 tablet at bedtime as needed Orally Once a day; Duration: 30 days05/26/2024tive Ventolin HFA 108 (90 Base) MCG/ACTINHALE 1 [...] alcohol in the p ast year? No Tjfcwr7TetitkwjtziiqzXlckrfdhVFAQE-I (Standard) Question Answer Notes Did you have a drink containing alcohol in the p ast year? No Uupgvc3CmkmdtjpcjopsoSicrvxmm Problems Problem Type SNOMED Code ICD Code Onset Dates Problem Status W/U Status Risk Notes Problem Overweight (104187700) Overweight (E66.3) ActiveconfirmedProblemGeneralized anxiety disorder (23038831)Generalized anxiety disorder (F41.1)ActiveconfirmedProblemDepression (920481186)Depression (F32.9) ActiveconfirmedProblemErectile dysfunction (326342216)Erectile dysfunction (N52.9)ActiveconfirmedProblemGastroesophageal reflux disease (666024163)GERD without esophagitis (K21.9)ActiveconfirmedProblemMigraine (93579766)Migraine (G43.909)ActiveconfirmedProblemType 2 diabetes mellitus (50866011)Type 2 diabetes mellitus (E11.9)ActiveconfirmedProblemBronchitis (27359668)Bronchitis (J40)ActiveconfirmedProblemRash (119400134)Rash (R21)ActiveconfirmedProblemUpper respiratory infection (19540809)Upper respiratory infection (J06.9)Active confirmedProblemShingles (3275802)Shingles (B02.9)ActiveconfirmedProblem Hemorrhoids (55150896)Hemorrhoids (K64.9)ActiveconfirmedProblemCurrent smoker (40987844)Current smoker (F17.200)ActiveconfirmedProblemAbdominal discomfort (15505982)Abdominal discomfort (R10.9)ActiveconfirmedProblemPanic attack (793200465)Panic attack (F41.0)ActiveconfirmedProblemBright red blood per rectum (387002611)Bright red blood per rectum (K62.5)ActiveconfirmedProblemAnal fissure (20013237)Rectal fissure (K60.2)ActiveconfirmedProblemPain in limb (02005839) Heel pain, right (M79.671)ActiveconfirmedProblemInsomnia (332507839)Insomnia disorder (G47.00)ActiveconfirmedProblemIrritable bowel syndrome (32333807) Irritable bowel syndrome (IBS) (K58.9)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)Tbmjp-Sndfjmrgh-Ksqdf (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)Active confirmedProblemMixed anxiety and depressive disorder (474212898)Anxiety and depression (F41.8)ActiveconfirmedProblemMenopause (990296984)Insomnia associated with menopause (N95.1)Activeconfirmed Vital Signs Heart Rate 109 /min 06/15/2024 Ilrapupzhsm32.4 degrees Izuxqgrqad05/04/2309Ulwrahca04 %06/15/2024lood pressure mm Hg04/03/20253638Uzbgxz32 in04/03/2025lood pressure uqknllij366 mm Hg 04/03/20257776Xtnmym557 lbs106/04/2024BMI38.26 kg/m204/03/2025 Encounters Encounter Location Date Provider Diagnosis [address] [address] 05/26/2024 Leighann Soriano Insomnia disorder G4 7.00 ; Rash and other nonspecific skin eruption R21 and Depression F32.[address] [address] 06/15/2024 Leighann Soriano Gastroenteritis K52. [address] [address] 07/14/2024 Leighann Soriano Body aches R52 ; Gastroenteritis K52.9 and Vomiting R11.[address] [address] 07/17/2024 Leighann Soriano Bronchitis J40 [address] [address] 07/20/2024 Martínez Hoy Gastroenteritis K52. [address] [address] 06/08/2024 Martínez Hoy Cough R05.9 and Acut e bronchitis, unspecified organism J20.[address] [address] 04/03/2025 Leighann Soriano Type 2 diabetes hector itus E11.9 and Anxiety and depression F41.[address] [address] 08/04/2024 Martínez Hoy Acute non-recurrent sinusitis, unspecified location J01.90 and Nasal congestion R09.[address] [address] 04/17/2025 Leighann Soriano [address] [place] [address] 06/01/2024[facility] [address] [place] [address]/[facility] [address] [facility] [place], [place] [address]/01/2025[facility] [place] [address]/[facility] Assessments Encounter Date Diagnosis (ICD Code) Assessment [...] worsen 07/17/2024ronchitis (ICD-10 - J40)fu if not phqqhcqux00/20/2025Gastroenteritis (ICD-10 - K52.9)Get plenty of rest. Stay hydrated by sucking on ice chips or taking small sips of water. You can also try drinking clear soda, clear broths or noncaffeinated sports drinks. Stop eating solid foods for a few hours to let your stomach settle. East back into eating by eating bland, gqde-pp-rzwzhw foods like crackers, toast, gelatin, bananas, rice and chicken. Try to avoid foods/substances including dairy products, caffeine, alcohol, nicotine and fatty or highly seasoned foods. Medications such as ibuprofen or tylenol can make your stomach more upset, so use sparingly if at all. Also avoid dpjx-nxh-juscjpv anti-diarrheal medications because it can make it harder for your body to eliminate the virus.5Acute non-recurrent sinusitis, unspecified location (ICD-10 - J01.90)Rest and drink more liquids, especially water. You may use a humidifier or vaporizer to help keep the drainage moist. Assg-aas-owtroqv Nasal Saline may help the stuffy and runny nose. Use Ibuprofen and or Tylenol as needed for fever, chills, body aches or pain. Children 5 years old should not be given bddl-hiz-whkukhx cough and cold medications such as guaifenesin and dextromethorphan. If you're over age 5, you may try cllk-sto-ayylomt cold medications such as guaifenesin and dextromethorphan, [...] below 65 consecutively. Reviewed with patient the superintendent terminal effects of Diabetes Mellitus on the body [...] or testing, please call for dosing instructions. 04/03/2025nxiety and depression (ICD-10 - F41.8) restart fluoxetine continue with counseling fu 08/04/2024Nasal congestion (ICD-10 - R09.81)07/14/2024Vomiting (ICD-10 - R11.10) 06/08/2024ute bronchitis, unspecified organism (ICD-10 - J20.9)Rest and drink more liquids, especially water. You may use a humidifier or vaporizer to help keep the drainage moist. Qgbj-lxy-qlpzkas Nasal Saline may help the stuffy and runny nose. Use Ibuprofen and or Tylenol as needed for fever, chills, body aches or pain. Children 5 years old should not be given prke-pgn-bnpakss cough and cold medications such as guaifenesin and dextromethorphan. If you're over age 5, you may try wety-dep-yjqiymc cold medications such as guaifenesin and dextromethorphan, [...] go to the emergency room or call [phone] (ICD-10 - F32.9) psych referral sheet given needs to re establish with psych will review meds with Dr Donato Plan Of Treatment Pending Test Test Name Order Date COVID-19, Flu A+B IH 07/14/2024 ECG 12 lead 04/20/2025 Next Appt Details Provider Name:Leighann Gresham Sonal doss, 04/20/2025 01:00:00 PM, [address] [place], [address], Provider Name:Leighann Gresham Sonal doss, 05/04/2025 09:30:00 AM, [address] [place], [address], Medical (General) History Medical History History ICD Code Bronchitis J40 Heel pain, right M79.671 Hemorrhoids K64.9 Upper respiratory infection J06.9 Depression F32.9 Rash R21 Shingles B02.9 Migraine G43.909 Gastro-esophageal reflux disease K21.9 Bright red blood per rectum K62.5 Irritable bowel syndrome (IBS) K58.9 Panic attack F41.0 Ftxnh-Hbrbypiwb-Uqkjq (WPW) syndrome I45 .6 Overweight E66.3 Abdominal discomfort R10.9 Generalized anxiety disorder F41.1 Current smoker F17.200
[2025-04-20 11:52] VITALS: BP 148/95; PULSE 77; O2SAT 100
== END 2025-04-20 11:58 | disposition home or self-care (01) ==
PROVIDERS: Emergency Provider Emergency Medicine; PCP Nurse Practitioner Family
DX: F41.9 Anxiety disorder, unspecified (principal); F17.200 Nicotine dependence, unspecified, uncomplicated
CPT/HCPCS: 36415; 93005; 99284

== ENCOUNTER 2025-04-23 10:05 | Emergency (ER) | payer SELFPAY ==
--- OUTSIDE RECORDS SUMMARY | 2024-08-08 08:30 | XMS_ITS ---
Author Organization The [facility] in [place] Address [address] [place] [address] Care Team Providers Care Transmitter Chief Name Role Phone Leighann Mahoney Primary Care Provider [phone] REASON FOR VISIT STILL SICK Encounters Encounter Location Date Provider Diagnosis [facility] [address] [place] [address] 08/08/2024 Leighann Mahoney Plan Of Treatment Next Appt Details Provider Name:Leighann doss, 05/04/2025 09:30:00 AM, [address] [place], [address], Progress Notes * Genesis PACKEROB:1985 (39 yo M)Acc No.[id number]:08/08/2024 UNLOCKED PROGRESS NOTE Progress Note Patient: Tristin CARL :?Leighann Mahoney ([facility]), CNPDOB:1985 ???Age:38 Y???Sex:MaleDate:08/08/2024Phone:[phone]:[address], [place] Subjective: * Chief Complaints: * 1 . STILL SICK. * Medical History: Objective: * Vitals: Assessment: Plan: * Treatment: * * Electronic signature of Leigahnn Mahoney NP, CONTROL TOWER RADIO OPERATOR.MODEL MAKER PLASTIC.[id number] on 04/23/2025 at 11:10 AM ESTSign off status: PendingVisit Status:?OFF CANC (OFFICE CANCEL) * Provider: Phan Mahoney ([facility]), MODEL MAKER PLASTIC Date: 0 08/08/2024 Generated for Printing/Faxing/eTransmitting on:?04/23/2025 11:10 AM EST
--- OUTSIDE RECORDS SUMMARY | 2025-04-11 07:32 | XMS_ITS ---
Author Organization [facility] in [place] Address [address] [place] [address] Care Team Providers Care Metal Can Inspector Name Role Phone Leighann Mahoney Primary Care Provider Encounters Encounter Location Date Provider Diagnosis Electronic Health Records [address] [place] [address] 04/11/2025 Leighann Mahoney Plan Of Treatment Next Appt Details Provider Name:Leighann doss, 05/04/2025 09:30:00 AM, [address] [facility], [place], [address], Progress Notes * Genesis PACKEROB:1985 (39 yo M)Acc No.[id number]:04/11/2025 Patient:?Tristin PACKER :1985???Age:39 Y???Sex:MalePhone:[phone] Address:[address] [place] [address] Subjective: * Chief Complaints: * * Medical History: * Surgical History: * Hospitalization/Major Diagno stic Procedure: * Medications: Objective: * Vitals: * Physical Examination: ??? Assessment: Plan: * Treatment: * Procedure Codes: * Preventive Medicine: ??Screenings/Counseling:?TOBACCO ACTION PLAN?Patient counselled on the dangers of tobacco use and urged to quit.? 04/03/2025 - -Date counseled * true * Date:?Generated for Printing/Faxing/eTransmitting on:?04/23/2025 11:09 AM EST
--- OUTSIDE RECORDS SUMMARY | 2025-04-17 03:44 | XMS_ITS ---
Author Organization The [facility] in [place] Address [address] [place] [address] Care Team Providers Care Circular Stuffer Name Role Phone Leighann Mahoney Primary Care Provider Encounters Encounter Location Date Provider Diagnosis [facility] [address] [place] [address] 04/17/2025 Leighann Mahoney Plan Of Treatment Next Appt Details Provider Name:Leighann doss, 05/04/2025 09:30:00 AM, [address] [place], [address], Progress Notes * Genesis PACKEROB:1985 (39 yo M)Acc No.[id number]:04/17/2025 Patient:?Tristin PACKER :1985???Age:39 Y???Sex:MalePhone:[phone] Address:[address] [place] [address] Subjective: * Chief Complaints: * * Medical History: * Surgical History: * Hospitalization/Major Diagno stic Procedure: * Medications: Objective: * Vitals: * Physical Examination: ??? Assessment: Plan: * Treatment: * Procedure Codes: * true * Date:?Generated for Printing/Faxing/eTransmitting on:?04/23/2025 11:09 AM EST
--- OUTSIDE RECORDS SUMMARY | 2025-04-20 08:00 | XMS_ITS ---
Author Organization [facility] in [place] Address [address] [place] [address] Care Team Providers Care Ignition Specialist Name Role Phone Leighann Mahoney Primary Care [...] this AM- was taken by squad to [facility]- they gave him Ativan- also said [...] Once a day; Duration: 30 dayscall for fftwmj945ActiveTriamcinolone Acetonide 0.1 %1 application Externally Two times [...] 04/20/2025 Encounters Encounter Location Date Provider Diagnosis [address] [address] 04/20/2025 Leighann Mahoney Panic attack F41.0 and [...] Name:Leighann doss, 05/04/2025 09:30:00 AM, [address] [facility], [address], [place], [address], Progress Notes * Genesis PACKEROB:1985 (39 yo M)Acc No.[id number]:04/20/2025 UNLOCKED PROGRESS NOTE Progress Note Patient: Tristin CARL :?Leighann Mahoney ([facility]), CNPDOB:1985 ???Age:39 Y???Sex:MaleDate:04/20/2025Phone:[phone]:[address], [place], [place]Oxgep In:01:00 PM ESTCheck Out:01:25 PM EST Subjective: * Chief Complaints: * 1 . SELF PAY med adjustment. 2. Wants his Prozac increased. 3. Also said that he had a really bad panic attack this AM- was taken by squad to [facility]- they gave him Ativan- also said [...] incontinence?denies.?Painful urination?denies.?Musculoskeletal:?Back pain?denies.?Neck pain?denies.?Muscle aches?denies.?Skin:?Rash?denies.?Skin lesion(s)?denies.? * Medical History: B ronchitis, Heel pain, right, Hemorrhoids, Upper respiratory infection, Depression, Rash, Shingles, Migraine, Gastro-esophageal reflux disease, Bright red blood per rectum, Irritable bowel syndrome (IBS), Panic attack, Ztrud-Wrqxljemn-Pkhjo (WPW) syndrome, Overweight, Abdominal discomfort, Generalized anxiety [...] ?How many cigarettes a day do you smoke??- * Medications: T aking [facility] Glucose Meter [...] * Follow Up: 4 Weeks,prn * * Electronic signature of Leighann Mahoney NP, COMPOUNDER [employer].ACCOUNTANT ASSISTANT.[id number] on 04/23/2025 at 11:09 AM ESTSign off status: PendingVisit Status:?CHK (Check Out) * Provider: Phan Mahoney (GEORGE), ACCOUNTANT ASSISTANT Date: 1 06/21/2024 Generated for Printing/Faxing/eTransmitting on:?04/23/2025 11:09 AM EST History and Physical Notes * HPI [...]
[2025-04-23 10:12] VITALS: BP 155/92; PULSE 79; TEMP 36.6; O2SAT 99; BMI 34.1
[2025-04-23 10:47] LABS: SARS-CoV-2 Ag NEGATIVE (NEGATIVE)
--- NOTE | 2025-04-23 10:51 | ED.GENADUL1 ---
HPI HPI - General Adult General Chief complaint: Nausea/Vomiting/Diarrhea Stated complaint: VOMITING, DIARRHEA Time Seen by Provider: 04/23/25 10:30 Source: patient Mode of arrival: walk-in Limitations: no limitations History of Present Illness HPI narrative: 39-year-old male presents for cough and congestion. He has been sick since yesterday and has been coughing up some green phlegm. He vomited this morning. He did not have an influenza vaccine this season. Related Data Home Medications ?Medication ?Instructions ?Recorded ?Confirmed fluoxetine 20 mg capsule 20 mg PO DAILY 04/11/25 04/23/25 gabapentin 300 mg capsule mg 04/23/25 lorazepam 0.5 mg tablet mg 04/23/25 Previous Rx's ?Medication ?Instructions ?Recorded meclizine 25 mg chewable tablet 25 mg PO TID PRN dizziness or 03/17/25 (Antivert) vertigo #7 tabs metformin 500 mg tablet 500 mg PO DAILY #30 tabs 03/21/25 benzonatate 100 mg capsule 100 mg PO TID PRN cough #20 caps 04/23/25 loratadine 5 mg-pseudoephedrine ER 1 tab PO Q12H PRN nasal congestion 04/23/25 120 mg tablet,extended #20 tabs release,12hr (Claritin-D 12 Hour) Allergies Allergy/AdvReac Type Severity Reaction Status Date / Time erythromycin base Allergy Intermediate Rash Verified 04/23/25 10:15 Penicillins Allergy Intermediate Rash Verified 04/23/25 10:15 Opioid HPI Opioid Management Most Recent Opioid Data: Last Pain Scale 7 04/20/25, 10:18 Ur Phencyclidine Scrn, (NEGATIVE) Negative 03/21/25, 17:37 Review of Systems ROS Narrative A ten point review of systems is negative except as noted above. PFSH PFSH Social History Smoking status: Current every day smoker Little interest or pleasure in doing things: not at all Feeling down, depressed, or hopeless: not at all Exam Narrative Exam Narrative: Nurses note and vital signs reviewed General:The patient appears well and in no apparent distress.Patient is resting comfortably on cart. Skin:Warm, dry, no pallor noted.There is a superficial burn on the thenar eminence of his right hand. Head:Normocephalic, atraumatic Eye: Normal conjunctiva, no drainage Ears, Nose, Mouth, and Throat: oral mucosa is moist. Nares patent. Cardiovascular:Regular Rate and Rhythm Respiratory:Patient is in no distress, no accessory muscle use, lungs are clear to auscultation, no wheezing, rales or rhonchi Back:non-tender GI: Soft and nontender Musculoskeletal: The patient has no evidence of calf tenderness, no pitting edema, symmetrical pulses noted bilaterally Neurological: Awake and alert Psychiatric:Cooperative Constitutional Vital Signs, click to edit/add: Last Vital Signs Temp 97.8 F 04/23/25 10:12 Pulse 79 04/23/25 10:12 Resp 18 04/23/25 10:12 BP 155/92 H 04/23/25 10:12 Pulse Ox 99 04/23/25 10:12 O2 Del Method Room Air 04/23/25 10:12 Course Vital Signs Vital signs: Vital Signs Temperature 97.8 F 04/23/25 10:12 Pulse Rate 79 04/23/25 10:12 Respiratory Rate 18 04/23/25 10:12 Blood Pressure 155/92 H 04/23/25 10:12 Pulse Oximetry 99 04/23/25 10:12 Oxygen Delivery Method Room Air 04/23/25 10:12 Temperature 97.8 F 04/23/25 10:12 Pulse Rate 79 04/23/25 10:12 Respiratory Rate 18 04/23/25 10:12 Blood Pressure 155/92 H 04/23/25 10:12 Pulse Oximetry 99 04/23/25 10:12 Oxygen Delivery Method Room Air 04/23/25 10:12 Medical Decision Making [facility] Narrative Medical decision making narrative: COVID and influenza tests are negative. My clinical impression is that he has a viral URI. He was prescribed Tessalon and Claritin-D. We discussed that he has been in the emergency department 5 times this calendar month. Treatment diagnosis and follow-up were discussed with the patient. Differential Diagnosis Differential Diagnosis: COVID, influenza, viral URI Lab Data Lab results reviewed: Yes I reviewed the patient's lab results Labs: Lab Results 04/23/25 Range/Units 10:20 Influenza Type A Ag Negative Influenza Type B Ag Negative SARS-CoV-2 Ag (CV2AG) Negative (NEGATIVE) Discharge Plan Discharge Chief Complaint: Nausea/Vomiting/Diarrhea Clinical Impression: Viral URI Patient Disposition: Home, Self-Care Time of Disposition Decision: 11:10 Condition: Good Mode of Transportation: Private Vehicle Prescriptions / Home Meds: New benzonatate 100 mg capsule 100 mg PO TID PRN (Reason: cough) Qty: 20 0RF Claritin-D 12 Hour 5-120 mg tablet extended release 12 hr 1 tab PO Q12H PRN (Reason: nasal congestion) Qty: 20 0RF No Action metformin 500 mg tablet 500 mg PO DAILY Qty: 30 0RF fluoxetine 20 mg capsule 20 mg PO DAILY meclizine [Antivert] 25 mg tablet,chewable 25 mg PO TID PRN (Reason: dizziness or vertigo) Qty: 7 0RF lorazepam 0.5 mg tablet gabapentin 300 mg capsule Print Language: Citizen Of [place] Instructions: Upper Respiratory Infection (ED) Referrals: MERNA SORIANO [Primary Care Provider, Family Practice] - 1 week
[2025-04-23] MEDS: ONDANSETRON 4 MG RAPDIS TABLET SL (11:07)
[2025-04-23] MEDS: BACITRACIN 0.9 GM PACKET 1 PACKET TOPICAL (11:07)
--- OUTSIDE RECORDS SUMMARY | 2025-04-23 11:09 | XMS_ITS | Clinical Summary ---
Author Organization [facility] Address [address] [place] [address] Care Team Providers Care Integrity Specialist Name Role Phone Unavailable Primary Care Provider Unavailabl e Allergies Active AllergyReactionsCriticalityNoted DateCommentsErythromycinRashLow 02/23/2024Erythromycin SwnoWmrjk75/23/1390AdfujrxemigMeovr29/23/2024 Medications MedicationSigDispense QuantityRefillsLast FilledStart DateEnd DateStatus divalproex [...] (bright red blood per rectum)02/23/2024hange in bowel dnpciv4702/23/2024urrent smoker 02/23/2024 Overview (02/23/2024): Added secondary to documentation in Social History. Ovzccxinzs10/23/2024Erectile ieytzjymjab47/23/2024Generalized anxiety disorder 02/23/2024GERD (gastroesophageal reflux disease)02/23/2024History of shingles 02/23/2024IBS (irritable bowel syndrome)02/23/20240653Yhfhhaady99/23/2024Morbid mqmvooh4002/23/2024bdominal pain, uwzalxmrep39/23/2024anic disorder without agoraphobia with mild panic tzategg2002/23/2024ectal kvkdihly15/23/2024 Hqypx-Lbgtoyayg-Eqkzw bzyflcvv92/23/2024nal pain02/23/2024 Social History Tobacco UseTypesPacks/DayYears UsedDateSmoking Tobacco: [...] file03/14/2024Sexually AbusedNot on file03/14/2024HQ-2AnswerDate RecordedPatient Health Questionnaire-2 Gisix01905/14/2023Sex and Gender InformationValueDate RecordedSex Assigned at BirthNot on fileLegal SexMale 02/11/2024 3:19 PM EDTGender IdentityNot on fileSexual OrientationNot on file Last Filed Vital Signs Vital SignReadingTime TakenCommentsBlood Uiqxpiqr414/8903/14/2024 2:20 PM EST Nktzr482603/14/2024 2:20 PM QMEOedagvznzhf90.6 ??C (97.8 ??F)03/14/2024 2:20 PM ESTRespiratory Cfdy7759 9:45 AM EDTOxygen Tvabjnbkyy51%03/14/2024 2:20 PM ESTInhaled Oxygen Concentration--Whlxnq399 kg (314 lb 3.2 oz)03/14/2024 2:20 PM SSZKfgzed576.5 cm (6' 3 )03/14/2024 2:20 PM ESTBody Mass Index39.27105/14/2023 2:20 PM EST Plan of Treatment Health MaintenanceDue DateLast DoneCommentsDepression Zcyncrwrt95/19/2000 Varicella Vaccines (1 of 2 - 13+ 2-dose series)08/19/2000Hepatitis B Vaccines (1 of 3 - 19+ 3-dose series)08/19/2006Pneumococcal Vaccine: Pediatrics (0 to 5 Years) and At-Risk Patients (6 to 64 Years) (1 of 2 - PCV)08/19/2006dult Yktsloa5908/19/2009HPV Vaccines (1 - 3-dose SCDM series)08/19/2014COVID-19 Vaccine [...] (Latest Code Status on File) Date ActivatedDate GotgveiyhsaFcsgzdta40/29/2024 6:22 AM02/29/2024 12:22 PM
--- OUTSIDE RECORDS SUMMARY | 2025-04-23 11:11 | XMS_ITS | Patient Health Record ---
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0 g/aIWjxaofegyz45.1 42.0-54.0 %Mean Corpuscular Sbrlcu39.480.0-94.0 fLMean Corpuscular Hemoglobin 30.425.9-34.0 pgMean Corpuscular HGB Conc35.629.9-35.2 g/dLRed Cell Distribution Width12.611.0-15.0 %Platelet Sabog173577-046 10 3/uLMean Platelet Volume9.69.5- 13.5 fLNeutrophils Percent Auto69.943.0-75.0 %Lymphocytes Percent Auto23.820.5- 60.0 %Monocytes Percent Auto5.41.7-12.0 %Eosinophils Percent Auto0.30.9-7.0 % Basophils Percent Auto0.30.2-2.0 %Immature Granulocytes Pct Auto0.30.0-0.5 % Neutrophils Absolute Auto5.21.4-6.5 10 3/uLLymphocytes Absolute Auto1.81.2-3.8 10 3/uLMonocytes Absolute Auto0.40.3-0.8 10 3/uLEosinophils Absolute Auto0.00.0- 0.7 10 3/uLBasophils Absolute Auto0.00.0-0.1 10 3/uLImmature Granulocytes Abs Auto0.020.00-0.03 10 3/uLPerforming Lab:see noteML - [facility] LBECG 12 lead Reviewed date:08/06/2024 09:47:04 PM Interpretation: Performing Lab: Notes/Report: Source Facility: [facility]-[address] [place] [address] [place] [address] Electrocardiograph Report Signed Patient: CHUCK PACKER MR#: [id number] : 1985 Acct:[id number] Age/Sex: 38 / M ADM Date: 07/30/24 Loc: ER Attending Dr: Ordering Physician: Leyda Barrientos M.D. 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 Measurements Intervals [place] Rate: 95 P: 44 MT: 120 QRS: 15 QRSD: 76 T: -5 QT: 330 QTc: 383 Interpretive Statements 1100 Sinus rhythm 4068 Nonspecific Twave abnormality 5211 Minimal voltage criteria for LVH, may be normal variant Abnormal ECG Compared to ECG 06/28/2023 02:49:31 Left ventricular hypertrophy now present nonspecific Twave abnormality is seen in the inferior leads Electronically Signed On 07-30-2024 20:20:30 EDT by JITENDRA FOOTE M.D. Dictated By: JITENDAR FOOTE Signed By: 07/30/242019 DD/ 11 TD/TT: Orthopedic Physician:CBC AUTO DIFF Reviewed date:01/18/2025 10:48:48 AM Interpretation: Performing Lab: Notes/Report: [facility] ,White Blood Count8.44.0-11.0 10 3/uLRed Blood Count5.214.70-6.10 10 6/uL Byhbsieyhy21.714.0-18.0 g/gZLavhbiuwvu25.742.0-54.0 %Mean Corpuscular Kzpiyc31.9 80.0-94.0 fLMean Corpuscular Smvbiehlvd24.125.9-34.0 pgMean Corpuscular HGB Conc 35.929.9-35.2 g/dLRed Cell Distribution Width11.911.0-15.0 %Platelet Dfooh478 150-450 10 3/uLMean Platelet Volume9.89.5-13.5 fLNeutrophils Percent Auto63.7 43.0-75.0 %Lymphocytes Percent Auto30.520.5-60.0 %Monocytes Percent Auto5.31.7- 12.0 %Eosinophils Percent Auto0.20.9-7.0 %Basophils Percent Auto0.10.2-2.0 % Immature Granulocytes Pct Auto0.20.0-0.5 %Neutrophils Absolute Auto5.41.4-6.5 10 3/uLLymphocytes Absolute Auto2.61.2-3.8 10 3/uLMonocytes Absolute Auto0.50.3-0.8 10 3/uLEosinophils Absolute Auto0.00.0-0.7 10 3/uLBasophils Absolute Auto0.00.0- 0.1 10 3/uLImmature Granulocytes Abs Auto0.020.00-0.03 10 3/uLPerforming Lab:see noteML - [facility] LBD-DIMER Reviewed date:01/18/2025 10:48:48 AM Interpretation: Performing Lab: Notes/Report: [facility] ,D Dimer0.20<=0.59 mg/L FEU Increases in D-Dimer [...] and generalized hospitalization. Performing Lab:see noteML - [facility] LBDRUG SCREEN RAPID (URINE) Reviewed date:01/18/2025 10:48:48 AM Interpretation: Performing Lab: Notes/Report: [facility] ,Cannabinoid Screen UrinePOSITIVENEGATIVEPhencyclidine Screen UrineNEGATIVE NEGATIVECocaine Screen [...] 300 ng/mL Performing Lab:see noteML - [facility] LBPROF CHEM 8 (BAS METB) Reviewed date:01/18/2025 10:48:48 AM Interpretation: Performing Lab: Notes/Report: [facility] ,Ndqnam980759-157 mmol/LPotassium4.03.5-5.1 mmol/GFhuovfem56924-151 mmol/LCarbon Clnibdf13.221.0-32.0 mmol/LAnion Gap12.1Klnvglw35940-995 mg/dLBlood Urea Bwlbnqes87.07.0-18.0 mg/dLCreatinine1.070.70-1.30 mg/dLEstimated GFR ( Anupama>60>=60 mL/min/1.73m 2Estimated GFR (Non- Tia>60>=60 mL/min/1.73m 2BUN Creatinine Ratio15.9Azhooil1.08.5-10.1 mg/dLPerforming Lab:see noteML - [facility] LBTroponin I High Sensitivity Reviewed date:01/18/2025 10:48:48 AM Interpretation: Performing Lab: Notes/Report: [facility] ,Troponin I High Sensitivity<4.04.0-76.1 pg/mL CUT-OFF POINTS HAVE BEEN ESTABLISHED BASED ON THE FOURTH UNIVERSAL DEFINITION OF MYOCARDIAL INFARCTION. THE UPPER REFERENCE LIMIT (URL) OF TROPONIN, DEFINED THE 99TH PERCENTILE OF cTnI DISTRIBUTION IN A REFERENCE POPULATION, HAS BEEN CONFIRMED THE DECISION THRESHOLD FOR OR DIAGNOSIS. 99TH PERCENTILE = 76.2 PG/ML NOTE: HIGH-SENSITIVITY TROPONIN ASSAY IS NOT INTENDED TO BE USED IN ISOLATION BUT SHOULD BE INTERPRETED IN CONJUNCTION WITH OTHER DIAGNOSTIC AND CLINICAL INFORMATION. Performing Lab:see noteML - [facility] BJKHLI-JuN-2 Ag* Reviewed date:01/18/2025 10:48:48 AM Interpretation: Performing Lab: Notes/Report: [facility] ,SARS-CoV-2 AgNEGATIVENEGATIVE This test has not been [...] is revoked sooner. 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 Measurements Intervals [place] Rate: 94 P: 54 MT: 130 QRS: 44 QRSD: 74 T: 49 QT: 342 QTc: 394 Interpretive Statements [address] elevation, probably early repolarization 9130 borderline ECG Compared to ECG 07/30/2024 14:12:13 ST (T wave) deviation now present Early repolarization now present Left ventricular hypertrophy no longer present Electronically Signed On 01-17-2025 17:53:50 EDT by JITENDRA FOOTE M.D. Dictated By: JITENDRA FOOTE Signed By: 01/17/25 1754 DD/ 1339 TD/TT: Orthopedic Physician:XR chest 1V Reviewed date:01/18/2025 10:48:48 AM Interpretation: Performing Lab: Notes/Report: Source Facility: [facility]-[address] [place] [address] [place] [address] XRay Report Signed Patient: CHUCK PACKER MR#: [id number] : 1985 Acct:[id number] Age/Sex: 39 / M ADM Date: 01/17/25 Loc: ER Attending Dr: Ordering Physician: Kacie Rodriguez Date of Service: 01/17/25 Procedure(s): XR chest 1V Accession Number(s): [id number] cc: CHRISTIE,LEIHGANN ; Kacie Rodriguez [facility] [place] [address] Patient Name: CHUCK PACKER MRN: [id number] date: 1985 Sex: M Assigned Patient Location: ER Current Patient Location: ED.MAIN Accession/Order Number: [id number] Exam Date: 01/17/2025 14:02 Report Date: 01/17/2025 14:48 At the request of: KACIE RIZZO Procedure: XR chest 1V PA CHEST: CLINICAL HISTORY: Chest pain COMPARISON: 07/15/2024 Unremarkable cardiac mediastinal silhouette. Lungs clear. No effusion or pneumothorax. XR/XR chest 1V IMPRESSION: NEGATIVE ACUTE PLEURAL-PARENCHYMAL DISEASE. Impression dictated by: Chandler Fields M.D. 01/17/2025 2:48 PM Dictation Location: [place] [address] Electronically authenticated by: [id number] Y Date: 01/17/2025 14:48 Dictated By: Chandler Fields M.D. Signed By: 01/17/25 1450 DD/ 1448 TD/TT: Orthopedic Physician:Troponin I High Sensitivity Reviewed date:01/18/2025 10:48:48 AM Interpretation: Performing Lab: Notes/Report: [facility] ,Troponin I High Sensitivity4.24.0-76.1 pg/mL CUT-OFF POINTS HAVE BEEN ESTABLISHED BASED ON THE FOURTH UNIVERSAL DEFINITION OF MYOCARDIAL INFARCTION. THE UPPER REFERENCE LIMIT (URL) OF TROPONIN, DEFINED THE 99TH PERCENTILE OF cTnI DISTRIBUTION IN A REFERENCE POPULATION, HAS BEEN CONFIRMED THE DECISION THRESHOLD FOR OR DIAGNOSIS. 99TH PERCENTILE = 76.2 PG/ML NOTE: HIGH-SENSITIVITY TROPONIN ASSAY IS NOT INTENDED TO BE USED IN ISOLATION BUT SHOULD BE INTERPRETED IN CONJUNCTION WITH OTHER DIAGNOSTIC AND CLINICAL INFORMATION. Performing Lab:see noteML - [facility] LBCBC AUTO DIFF Reviewed date:01/29/2025 09:03:45 AM Interpretation: Performing Lab: Notes/Report: [facility] ,White Blood Count7.74.0-11.0 10 3/uLRed Blood Count5.164.70-6.10 10 6/uL Yhainarvrr50.814.0-18.0 g/vBPoaiimcxpu96.342.0-54.0 %Mean Corpuscular Bacqwd16.9 80.0-94.0 fLMean Corpuscular Hfxsgdnvgp27.625.9-34.0 pgMean Corpuscular HGB Conc 36.529.9-35.2 g/dLRed Cell Distribution Width12.011.0-15.0 %Platelet Rdzud493 150-450 10 3/uLMean Platelet Volume9.89.5-13.5 fLNeutrophils Percent Auto60.1 43.0-75.0 %Lymphocytes Percent Auto32.820.5-60.0 %Monocytes Percent Auto6.11.7- 12.0 %Eosinophils Percent Auto0.40.9-7.0 %Basophils Percent Auto0.30.2-2.0 % Immature Granulocytes Pct Auto0.30.0-0.5 %Neutrophils Absolute Auto4.61.4-6.5 10 3/uLLymphocytes Absolute Auto2.51.2-3.8 10 3/uLMonocytes Absolute Auto0.50.3-0.8 10 3/uLEosinophils Absolute Auto0.00.0-0.7 10 3/uLBasophils Absolute Auto0.00.0- 0.1 10 3/uLImmature Granulocytes Abs Auto0.020.00-0.03 10 3/uLPerforming Lab:see noteML - [facility] LBD-DIMER Reviewed date:01/29/2025 09:03:45 AM Interpretation: Performing Lab: Notes/Report: [facility] ,D Dimer<0.19<=0.59 mg/L FEU Increases in D-Dimer [...] and generalized hospitalization. Performing Lab:see noteML - [facility] LBPROF CHEM 8 (BAS METB) Reviewed date:01/29/2025 09:03:45 AM Interpretation: Performing Lab: Notes/Report: [facility] ,Uvfpzf733903-202 mmol/LPotassium3.93.5-5.1 mmol/HSlzjsxsr33597-475 mmol/LCarbon Bcjohmc13.021.0-32.0 mmol/LAnion Gap15.6Uegfupx81563-169 mg/dLBlood Urea Umryrqqn32.07.0-18.0 mg/dLCreatinine0.940.70-1.30 mg/dLEstimated GFR ( Anupama>60>=60 mL/min/1.73m 2Estimated GFR (Non- Tia>60>=60 mL/min/1.73m 2BUN Creatinine Ratio13.6Zxxsayx9.18.5-10.1 mg/dLPerforming Lab:see noteML - [facility] LBTroponin I High Sensitivity Reviewed date:01/29/2025 09:03:45 AM Interpretation: Performing Lab: Notes/Report: [facility] ,Troponin I High Sensitivity4.94.0-76.1 pg/mL CUT-OFF POINTS HAVE BEEN ESTABLISHED BASED ON THE FOURTH UNIVERSAL DEFINITION OF MYOCARDIAL INFARCTION. THE UPPER REFERENCE LIMIT (URL) OF TROPONIN, DEFINED THE 99TH PERCENTILE OF cTnI DISTRIBUTION IN A REFERENCE POPULATION, HAS BEEN CONFIRMED THE DECISION THRESHOLD FOR OR DIAGNOSIS. 99TH PERCENTILE = 76.2 PG/ML NOTE: HIGH-SENSITIVITY TROPONIN ASSAY IS NOT INTENDED TO BE USED IN ISOLATION BUT SHOULD BE INTERPRETED IN CONJUNCTION WITH OTHER DIAGNOSTIC AND CLINICAL INFORMATION. Performing Lab:see noteML - [facility] LBECG 12 lead Reviewed date:01/29/2025 03:35:15 PM Interpretation: Performing Lab: Notes/Report: Source Facility: [facility]-[address] [place] [address] [place] [address] Electrocardiograph Report Signed Patient: CHUCK PACKER MR#: [id number] : 1985 Acct:[id number] Age/Sex: 39 / M ADM Date: 01/28/25 Loc: ER Attending Dr: Ordering Physician: Ledya Barrientos M.D. 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 Signed By: 01/29/25 1514 DD/ 1224 TD/TT: Orthopedic Physician:XR chest 1V Reviewed date:01/29/2025 09:03:45 AM Interpretation: Performing Lab: Notes/Report: Source Facility: [place] [address] XRay Report Signed Patient: CHUCK PACKER MR#: [id number] : 1985 Acct:[id number] Age/Sex: 39 / M ADM Date: 01/28/25 Loc: ER Attending Dr: Ordering Physician: Leyda Barrientos M.D. Date of Service: 01/28/25 Procedure(s): XR chest 1V Accession Number(s): [id number] cc: LEIGHANN SORIANO Jeffery D M.D. [facility] [place] [address] Patient Name: CHUCK PACKER MRN: [id number] date: 1985 Sex: M Assigned Patient Location: ED.MAIN Current Patient Location: ED.MAIN Accession/Order Number: [id number] Exam Date: 01/28/2025 13:33 Report Date: 01/28/2025 [...] Enamorado M.D. 01/28/2025 2:07 PM Dictation Location: [place] [address] Electronically authenticated by: [id number] Y Date: 01/28/2025 14:07 Dictated By: Antione Enamorado M.D. Signed By: 01/28/25 1410 DD/ 1407 TD/TT: Orthopedic Physician:DRUG SCREEN RAPID (URINE) Reviewed date:03/19/2025 10:38:37 AM Interpretation: Performing Lab: Notes/Report: [facility] ,Cannabinoid Screen UrinePOSITIVENEGATIVEPhencyclidine Screen UrineNEGATIVE NEGATIVECocaine Screen [...] 300 ng/mL Performing Lab:see noteML - [facility] LBUA Micro, reflex to culture Reviewed date:03/19/2025 10:38:37 AM Interpretation: Performing Lab: Notes/Report: [facility] ,Color UrineYELLOWYELLOWClarity UrineCLEARCLEARSpecific [place] Urine1.025 1.005-1.025pH Urine6.05.0-9.0Protein UrineTRACENEG/TRACE mg/dLGlucose Urine UA NEGATIVENEGATIVE mg/dLBilirubin UrineNEGATIVENEGATIVEKetones UrineTRACENEGATIVE mg/dLBlood UrineSMALLNEGATIVENitrite UrineNEGATIVENEGATIVEUrobilinogen Urine0.2 0.2-1.0 EU/dLLeukocyte Esterase UrineNEGATIVENEGATIVEWBC UrineNONE SEENNONE SEEN #/HPFRBC Urine0-20-2 #/HPFBacteria UrineTRACENONE SEEN #/HPFMucus UrineTRACENONE SEENSquamous Epithelial Cell UrineRARENONE/RARE #/LPFCrystals Seen?None SeenNone Seen #/HPFCast Seen?NONE SEENNONE SEEN #/LPFPerforming Lab:see noteML - [facility] LBCBC AUTO DIFF Reviewed date:03/21/2025 08:53:55 PM Interpretation: Performing Lab: Notes/Report: [facility] ,White Blood Count6.94.0-11.0 10 3/uLRed Blood Count5.234.70-6.10 10 6/uL Bmnwbbjfit34.914.0-18.0 g/tKYdocfshdwp98.742.0-54.0 %Mean Corpuscular Oyngfm59.5 80.0-94.0 fLMean Corpuscular Vxqmwnjkab15.425.9-34.0 pgMean Corpuscular HGB Conc 35.629.9-35.2 g/dLRed Cell Distribution Width12.111.0-15.0 %Platelet Ymqez025 150-450 10 3/uLMean Platelet Qyjpbf96.29.5-13.5 fLNeutrophils Percent Auto63.3 43.0-75.0 %Lymphocytes Percent Auto30.820.5-60.0 %Monocytes Percent Auto4.91.7- 12.0 %Eosinophils Percent Auto0.60.9-7.0 %Basophils Percent Auto0.10.2-2.0 % Immature Granulocytes Pct Auto0.30.0-0.5 %Neutrophils Absolute Auto4.41.4-6.5 10 3/uLLymphocytes Absolute Auto2.11.2-3.8 10 3/uLMonocytes Absolute Auto0.30.3-0.8 10 3/uLEosinophils Absolute Auto0.00.0-0.7 10 3/uLBasophils Absolute Auto0.00.0- 0.1 10 3/uLImmature Granulocytes Abs Auto0.020.00-0.03 10 3/uLPerforming Lab:see noteML - [facility] LBDRUG SCREEN RAPID (URINE) Reviewed date:03/21/2025 08:53:55 PM Interpretation: Performing Lab: Notes/Report: [facility] ,Cannabinoid Screen UrinePOSITIVENEGATIVEPhencyclidine Screen UrineNEGATIVE NEGATIVECocaine Screen [...] 300 ng/mL Performing Lab:see noteML - [facility] LBLIPASE Reviewed date:03/21/2025 08:53:56 PM Interpretation: Performing Lab: Notes/Report: [facility] ,Muydyu01.016.0-77.0 U/LPerforming Lab:see note - [facility] LBPROF 14(COMP METB) Reviewed date:03/21/2025 08:53:56 PM Interpretation: Performing Lab: Notes/Report: [facility] ,Gbdvah183096-696 mmol/LPotassium3.83.5-5.1 mmol/WTfbaynlw49203-132 mmol/LCarbon Bcolnln76.321.0-32.0 mmol/LAnion Gap12.2Divoacx16390-572 mg/dLBlood Urea Tjzirjsl81.07.0-18.0 mg/dLCreatinine1.430.70-1.30 mg/dLEstimated GFR ( Anupama>60>=60 mL/min/1.73m 2Estimated GFR (Non- Ame56>=60 mL/min/1.73m 2 BUN Creatinine Ratio9.7Rzcdsws0.78.5-10.1 mg/dLBilirubin Total0.50.2-1.0 mg/dL Aspartate Amino Tcnrmhivqny4652-78 U/LAlanine Ovkgpgdlrehlmvnb5261-18 U/L Alkaline Tnnedpbqaqq7732-522 U/LTotal Protein8.06.4-8.2 g/dLAlbumin Level3.53.4- 5.0 g/dLGlobulin4.5Albumin Globulin Ratio0.8Performing Lab:see noteML - [facility] LBUA (CLEAN or CATCH) TERRAZZO POLISHER or MICRO IF IND. Reviewed date:03/21/2025 08:53:56 PM Interpretation: Performing Lab: Notes/Report: [facility] ,Color UrineYELLOWYELLOWClarity UrineCLEARCLEARSpecific [place] Urine1.025 1.005-1.025pH Urine6.05.0-9.0Protein UrineNEGATIVENEG/TRACE mg/dLGlucose Urine UA>=1000NEGATIVE mg/dLBilirubin UrineNEGATIVENEGATIVEKetones UrineTRACENEGATIVE mg/dLBlood UrineSMALLNEGATIVENitrite UrineNEGATIVENEGATIVEUrobilinogen Urine0.2 0.2-1.0 EU/dLLeukocyte Esterase UrineNEGATIVENEGATIVEUrine Microscopic Indicated YESPerforming Lab:see noteML - [facility] LBTroponin I High Sensitivity Reviewed date:03/21/2025 08:53:56 PM Interpretation: Performing Lab: Notes/Report: [facility] ,Troponin I High Sensitivity<4.04.0-76.1 pg/mL CUT-OFF POINTS HAVE BEEN ESTABLISHED BASED ON THE FOURTH UNIVERSAL DEFINITION OF MYOCARDIAL INFARCTION. THE UPPER REFERENCE LIMIT (URL) OF TROPONIN, DEFINED THE 99TH PERCENTILE OF cTnI DISTRIBUTION IN A REFERENCE POPULATION, HAS BEEN CONFIRMED THE DECISION THRESHOLD FOR OR DIAGNOSIS. 99TH PERCENTILE = 76.2 PG/ML NOTE: HIGH-SENSITIVITY TROPONIN ASSAY IS NOT INTENDED TO BE USED IN ISOLATION BUT SHOULD BE INTERPRETED IN CONJUNCTION WITH OTHER DIAGNOSTIC AND CLINICAL INFORMATION. Performing Lab:see noteML - [facility] LBChlamydia/GC Amplification Reviewed date:03/27/2025 08:15:33 AM Interpretation: Performing Lab: Notes/Report: Urine [facility] ,Chlamydia trachomatis, NAANegativeNegativeNeisseria gonorrhoeae, NAANegative Negative Performed at: = - [facility] [address] [id number] Resident Services Manager: Ava Max MD, Phone: [phone] Performing Lab:see noteLC - [facility] LBECG 12 lead Reviewed date:03/27/2025 08:15:33 AM Interpretation: Performing Lab: Notes/Report: Source Facility: [place] [address] Electrocardiograph Report Signed Patient: CHUCK PACKER MR#: [id number] : 1985 Acct:[id number] Age/Sex: 39 / M ADM Date: 03/21/25 Loc: ER Attending Dr: Ordering Physician: Kacie Rodriguez Date of Service: 03/21/25 Procedure(s): ECG 12 lead Accession Number(s): [id number] cc: [facility] Test Date: 2025-03-21 Pat Name: CHUCK PACKER Department: Room: - 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 Measurements Intervals [place] Rate: 109 P: 58 MT: 120 QRS: 14 QRSD: 88 T: -59 [...] Signed By: 03/22/25 0604 DD/ 1739 TD/TT: Orthopedic Physician:XR chest 1V Reviewed date:03/21/2025 08:53:56 PM Interpretation: Performing Lab: Notes/Report: Source Facility: [place] [address] XRay Report Signed Patient: CHUCK PACKER MR#: [id number] : 1985 Acct:[id number] Age/Sex: 39 / M ADM Date: Loc: ER Attending Dr: Ordering Physician: Kacie Rodriguez Date of Service: 03/21/25 Procedure(s): XR chest 1V Accession Number(s): [id number] cc: LEIGHANN SORIANO ; Kacie Rodriguez [place] [address] Patient Name: CUHCK PACKER MRN: [id number] date: 1985 Sex: M Assigned Patient Location: ER Current Patient Location: ER Accession/Order Number: [id number] Exam Date: 03/21/2025 18:14 Report Date: 03/21/2025 [...] Chavez M.D. 03/21/2025 6:23 PM Dictation Location: [place] [address] Electronically authenticated by: [id number] Y Date: 03/21/2025 18:23 Dictated By: Jil Chavez D.O. Signed By: 03/21/251824 DD/ 22 TD/TT: Orthopedic Physician:XR abdomen 1V Reviewed date:04/02/2025 08:41:29 AM Interpretation: Performing Lab: Notes/Report: Source Facility: [place] [address] XRay Report Signed Patient: CHUCK PACKER MR#: [id number] : 1985 Acct:[id number] Age/Sex: 39 / M ADM Date: 04/01/25 Loc: ER Attending Dr: Ordering Physician: Leyda Barrientos M.D. Date of Service: 04/01/25 Procedure(s): XR abdomen 1V Accession Number(s): [id number] cc: LEIGHANN SORIANO ; Leyda Barrientos M.D. [place] [address] Patient Name: CHUCK PACKER MRN: [id number] date: 1985 Sex: M Assigned Patient Location: ER Current Patient Location: ER Accession/Order Number: [id number] Exam Date: 04/01/2025 12:20 Report Date: 04/01/2025 [...] Enamorado M.D. 04/01/2025 12:35 PM Dictation Location: [place] [address] Electronically authenticated by: [id number] Y Date: 04/01/2025 12:35 Dictated By: Antione Enamorado M.D. Signed By: 04/01/25 1238 DD/ 1235 TD/TT: Orthopedic Physician:MAYITO RANDOM W or MICROSCOPIC Reviewed date:04/12/2025 09:52:04 AM Interpretation: Performing Lab: Notes/Report: [facility] ,Color UrineYELLOWYELLOWClarity UrineCLEARCLEARSpecific [place] Urine1.025 1.005-1.025pH Urine6.05.0-9.0Protein UrineTRACENEG/TRACE mg/dLGlucose Urine UA NEGATIVENEGATIVE mg/dLBilirubin UrineNEGATIVENEGATIVEKetones UrineTRACENEGATIVE mg/dLBlood UrineSMALLNEGATIVENitrite UrineNEGATIVENEGATIVEUrobilinogen Urine0.2 0.2-1.0 EU/dLLeukocyte Esterase UrineTRACENEGATIVEWBC Urine2-5NONE SEEN #/HPFRBC Urine0-20-2 #/HPFBacteria UrineMODERATENONE SEEN #/HPFMucus UrineMODERATENONE SEENSquamous Epithelial Cell UrineRARENONE/RARE #/LPFCrystals Seen?None SeenNone Seen #/HPFCast Seen?SEENNONE SEEN #/LPFHyaline Casts UrineRAREUrine Culture IndicatedYES-FRMCPerforming Lab:see note - [facility] LBUrine Culture - [facility] Reviewed date:04/16/2025 08:26:30 AM Interpretation: Performing Lab: Notes/Report: [facility] ,Urine Culture - FRMCSee Below For Report Urine Culture - [facility] SEEFRMC [facility] RESULT^[facility] RESULT Urine Culture - FRMCSEEN SEE SCANNED REPORT, NORMAL^SEE SCANNED REPORT, NORMAL Urine Culture - [facility] SEEFRMC [facility] RESULT^[facility] RESULT Performing Lab:see noteML - [facility] LBECG 12 lead Reviewed date:04/12/2025 09:52:04 AM Interpretation: Performing Lab: Notes/Report: Source Facility: [facility]-[address] [place] [address] [place] [address] Electrocardiograph Report Signed Patient: CHUCK PACKER MR#: [id number] : 1985 Acct:[id number] Age/Sex: 39 / M ADM Date: 04/11/25 Loc: ER Attending Dr: Ordering Physician: Leyda Barrientos M.D. Date of Service: 04/11/25 Procedure(s): ECG 12 lead Accession Number(s): [id number] cc: [facility] Test Date: 2025-04-11 Pat Name: CHUCK PACKER Department: Room: - Gender: Male [employer]: : 1985 Requested By: [id number] Order Number: [id number] Reading MD: JITENDRA FOOTE M.D. Measurements Intervals [place] Rate: 93 P: 42 MT: 124 QRS: 40 QRSD: 76 T: 49 QT: 318 QTc: 369 Interpretive Statements 1100 Sinus rhythm 4068 Nonspecific Twave abnormality 9130 borderline ECG Compared to ECG 03/21/2025 17:39:38 Sinus tachycardia no longer present ST (T wave) deviation no longer present Electronically Signed On 04-11-2025 14:21:09 EST by JITENDRA FOOTE M.D. Dictated By: JITENDRA FOOTE Signed By: 04/11/25 1421 DD/ 1227 TD/TT: Orthopedic Physician:NETTIE chest 1V Reviewed date:04/12/2025 09:52:04 AM Interpretation: Performing Lab: Notes/Report: Source Facility: [place] [address] [place] [address] XRay Report Signed Patient: CHUCK PACKER MR#: [id number] : 1985 Acct:[id number] Age/Sex: 39 / M ADM Date: 04/11/25 Loc: ER Attending Dr: Ordering Physician: Leyda Barrientos M.D. Date of Service: 04/11/25 Procedure(s): XR chest 1V Accession Number(s): [id number] cc: LEIGHANN SORIANO ; Leyda Barrientos M.D. [place] [address] Patient Name: CHUCK PACKER MRN: [id number] date: 1985 Sex: M Assigned Patient Location: ER Current Patient Location: ED.MAIN Accession/Order Number: [id number] Exam Date: 04/11/2025 12:34 Report Date: 04/11/2025 [...] Luther M.D. 04/11/2025 12:55 PM Dictation Location: [place] [address] Electronically authenticated by: [id number] Y Date: 04/11/2025 12:55 Dictated By: Almaz Luther M.D. Signed By: 04/11/25 1257 DD/ 1255 TD/TT: Orthopedic Physician:CBC AUTO DIFF Reviewed date:04/17/2025 09:41:27 AM Interpretation: Performing Lab: Notes/Report: [facility] ,White Blood Count5.34.0-11.0 10 3/uLRed Blood Count5.394.70-6.10 10 6/uL Donxsfoafi40.214.0-18.0 g/iANcldiufkys97.342.0-54.0 %Mean Corpuscular Mjqsmz06.0 80.0-94.0 fLMean Corpuscular Vrdsvvvsfi68.125.9-34.0 pgMean Corpuscular HGB Conc 35.829.9-35.2 g/dLRed Cell Distribution Width12.111.0-15.0 %Platelet Orpnj121 150-450 10 3/uLMean Platelet Volume9.79.5-13.5 fLNeutrophils Percent Auto58.6 43.0-75.0 %Lymphocytes Percent Auto34.420.5-60.0 %Monocytes Percent Auto6.21.7- 12.0 %Eosinophils Percent Auto0.40.9-7.0 %Basophils Percent Auto0.20.2-2.0 % Immature Granulocytes Pct Auto0.20.0-0.5 %Neutrophils Absolute Auto3.11.4-6.5 10 3/uLLymphocytes Absolute Auto1.81.2-3.8 10 3/uLMonocytes Absolute Auto0.30.3-0.8 10 3/uLEosinophils Absolute Auto0.00.0-0.7 10 3/uLBasophils Absolute Auto0.00.0- 0.1 10 3/uLImmature Granulocytes Abs Auto0.010.00-0.03 10 3/uLPerforming Lab:see noteML - [facility] LBPROF CHEM 8 (BAS METB) Reviewed date:04/17/2025 09:41:27 AM Interpretation: Performing Lab: Notes/Report: [facility] ,Hrzjny130791-608 mmol/LPotassium3.53.5-5.1 mmol/UKkavtcii61455-290 mmol/LCarbon Fvopbkm18.521.0-32.0 mmol/LAnion Gap12.3Rkterss30691-664 mg/dLBlood Urea Saqgazjr97.07.0-18.0 mg/dLCreatinine1.120.70-1.30 mg/dLEstimated GFR ( Anupama>60>=60 mL/min/1.73m 2Estimated GFR (Non- Tia>60>=60 mL/min/1.73m 2BUN Creatinine Ratio9.9Anrxflv9.28.5-10.1 mg/dLPerforming Lab:see noteML - [facility] LBUA (CLEAN or CATCH) TERRAZZO POLISHER or MICRO IF IND. Reviewed date:04/17/2025 09:41:27 AM Interpretation: Performing Lab: Notes/Report: [facility] ,Color UrineLT. YELLOWYELLOWClarity UrineCLEARCLEARSpecific [place] Urine1.010 1.005-1.025pH Urine6.55.0-9.0Protein UrineNEGATIVENEG/TRACE mg/dLGlucose Urine UANEGATIVENEGATIVE mg/dLBilirubin UrineNEGATIVENEGATIVEKetones UrineNEGATIVE NEGATIVE mg/dLBlood UrineTRACE-INEGATIVENitrite UrineNEGATIVENEGATIVE Urobilinogen Urine1.00.2-1.0 EU/dLLeukocyte Esterase UrineTRACENEGATIVEUrine Microscopic IndicatedYESPerforming Lab:see note - [facility] LB Troponin I High Sensitivity Reviewed date:04/17/2025 09:41:27 AM Interpretation: Performing Lab: Notes/Report: [facility] ,Troponin I High Sensitivity5.74.0-76.1 pg/mL CUT-OFF POINTS HAVE BEEN ESTABLISHED BASED ON THE FOURTH UNIVERSAL DEFINITION OF MYOCARDIAL INFARCTION. THE UPPER REFERENCE LIMIT (URL) OF TROPONIN, DEFINED THE 99TH PERCENTILE OF cTnI DISTRIBUTION IN A REFERENCE POPULATION, HAS BEEN CONFIRMED THE DECISION THRESHOLD FOR OR DIAGNOSIS. 99TH PERCENTILE = 76.2 PG/ML NOTE: HIGH-SENSITIVITY TROPONIN ASSAY IS NOT INTENDED TO BE USED IN ISOLATION BUT SHOULD BE INTERPRETED IN CONJUNCTION WITH OTHER DIAGNOSTIC AND CLINICAL INFORMATION. 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 Measurements Intervals [place] Rate: 86 P: 50 MT: 132 QRS: 38 QRSD: 82 T: 50 QT: 350 QTc: 393 Interpretive Statements 1100 Sinus rhythm ARTIFACT IN LEAD(S) 9110 normal ECG Compared to ECG 04/16/2025 18:04:48 ST (T wave) deviation no longer present Electronically Signed On 04-20-2025 18:45:14 EST by JITENDRA FOOTE M.D. Dictated By: JITENDRA FOOTE Signed By: 04/20/25 1845 DD/ 1026 TD/TT: Orthopedic Physician:INFLUENZA A AND B AG (Not yet reviewed by provider) Interpretation: Performing Lab: Notes/Report: [facility] ,Influenza Virus A AntigenNegative Negative for Flu [...] the test. Performing Lab:see noteML - [facility] VTDVOK-EnX-5 Ag* (Not yet reviewed by provider) Interpretation: Performing Lab: Notes/Report: [facility] ,SARS-CoV-2 AgNEGATIVENEGATIVE This test has not been [...] is revoked sooner. Performing Lab:see noteML - [facility] LBPROF CHEM 8 (BAS METB) Reviewed date:04/12/2025 09:52:04 AM Interpretation: Performing Lab: Notes/Report: [facility] ,Dlpvho594957-183 mmol/LPotassium3.83.5-5.1 mmol/WTduxahjt61408-175 mmol/LCarbon Eoiwrxk02.921.0-32.0 mmol/LAnion Gap14.0Rifrcsf62899-712 mg/dLBlood Urea Xvyabrec92.07.0-18.0 mg/dLCreatinine1.180.70-1.30 mg/dLEstimated GFR ( Anupama>60>=60 mL/min/1.73m 2Estimated GFR (Non- Tia>60>=60 mL/min/1.73m 2BUN Creatinine Ratio9.7Tntnnsc0.38.5-10.1 mg/dLPerforming Lab:see noteML - [facility] LBCBC AUTO DIFF Reviewed date:04/12/2025 09:52:04 AM Interpretation: Performing Lab: Notes/Report: [facility] ,White Blood Count7.14.0-11.0 10 3/uLRed Blood Count5.624.70-6.10 10 6/uL Kwvvdejryo94.114.0-18.0 g/tUUrfxxungbt64.342.0-54.0 %Mean Corpuscular Dfmmjg40.2 80.0-94.0 fLMean Corpuscular Sqfginwovt76.425.9-34.0 pgMean Corpuscular HGB Conc 36.229.9-35.2 g/dLRed Cell Distribution Width12.011.0-15.0 %Platelet Zpggu995 150-450 10 3/uLMean Platelet Volume9.89.5-13.5 fLNeutrophils Percent Auto67.3 43.0-75.0 %Lymphocytes Percent Auto26.920.5-60.0 %Monocytes Percent Auto5.01.7- 12.0 %Eosinophils Percent Auto0.30.9-7.0 %Basophils Percent Auto0.10.2-2.0 % Immature Granulocytes Pct Auto0.40.0-0.5 %Neutrophils Absolute Auto4.81.4-6.5 10 3/uLLymphocytes Absolute Auto1.91.2-3.8 10 3/uLMonocytes Absolute Auto0.40.3-0.8 10 3/uLEosinophils Absolute Auto0.00.0-0.7 10 3/uLBasophils Absolute Auto0.00.0- 0.1 10 3/uLImmature Granulocytes Abs Auto0.030.00-0.03 10 3/uLPerforming Lab:see noteML - [facility] LBTSH Reviewed date:03/21/2025 08:53:56 PM Interpretation: Performing Lab: Notes/Report: [facility] ,Thyroid Stimulating Hormone1.2350.358-3.740 uIU/mLPerforming Lab:see noteML - [facility] LBCT head/brain wo con Reviewed date:03/19/2025 10:38:37 AM Interpretation: Performing Lab: Notes/Report: Source Facility: [facility] [place] [address] [place] [address] CT Scan Report Signed Patient: CHUCK PACKER MR#: [id number] : 1985 Acct:[id number] Age/Sex: 39 / M ADM Date: Loc: ER Attending Dr: Ordering Physician: Jil Benitez Date of Service: 03/17/25 Procedure(s): CT head/brain wo con Accession Number(s): [id number] cc: LEIGHANN SORIANO [place] [address] Patient Name: CHUCK PACKER MRN: [id number] date: 1985 Sex: M Assigned Patient Location: ER Current Patient Location: ER Accession/Order Number: [id number] Exam Date: 03/17/2025 13:00 Report Date: 03/17/2025 [...] Chavez M.D. 03/17/2025 1:45 PM Dictation Location: [place] [address] Electronically authenticated by: [id number] Y Date: 03/17/2025 13:45 Dictated By: Jil Chavez D.O. Signed By: 03/17/25 1347 DD/ 44 TD/TT: Orthopedic Physician:XR chest 2V Reviewed date:03/19/2025 10:38:37 AM Interpretation: Performing Lab: Notes/Report: Source Facility: [facility] [place] [id number] XRay Report Signed Patient: CHUCK PACKER MR#: [id number] : 1985 Acct:[id number] Age/Sex: 39 / M ADM Date: Loc: ER Attending Dr: Ordering Physician: Jil Benitez Date of Service: 03/17/25 Procedure(s): XR chest 2V Accession Number(s): [id number] cc: LEIGHANN SORIANO ; Jil Benitez [place] [address] Patient Name: CHUCK PACKER MRN: [id number] date: 1985 Sex: M Assigned Patient Location: ER Current Patient Location: ER Accession/Order Number: [id number] Exam Date: 03/17/2025 13:00 Report Date: 03/17/2025 [...] Chavez M.D. 03/17/2025 1:46 PM Dictation Location: [place] [address] Electronically authenticated by: [id number] Y Date: 03/17/2025 13:46 Dictated By: Jil Chavez D.O. Signed By: 03/17/25 1348 DD/ 1346 TD/TT: Orthopedic Physician:ECG 12 lead Reviewed date:03/19/2025 10:38:37 AM Interpretation: Performing Lab: Notes/Report: Source Facility: [facility]-[address] [place] [address] [place] [id number] Electrocardiograph Report Signed Patient: CHUCK PACKER MR#: [id number] : 1985 Acct:[id number] Age/Sex: 39 / M ADM Date: Loc: ER Attending Dr: Ordering Physician: Jil Benitez Date of Service: 03/17/25 Procedure(s): ECG 12 lead Accession Number(s): [id number] cc: [facility] Test Date: 2025-03-17 Pat Name: CHUCK PACKER Department: Room: - 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 Measurements Intervals [place] Rate: 89 P: 44 MT: 138 QRS: 26 QRSD: 80 T: 46 QT: 334 QTc: 381 Interpretive Statements 1100 Sinus rhythm [address] elevation [address] Twave abnormality 9130 borderline ECG Compared to ECG 01/28/2025 12:24:48 No significant changes Electronically Signed On 03-17-2025 12:57:47 EST by JITENDRA FOOTE M.D. Dictated By: JITENDRA FOOTE Signed By: 03/17/25 1258 DD/ 1232 TD/TT: Orthopedic Physician:SARS-CoV-2 Ag* Reviewed date:03/19/2025 10:38:37 AM Interpretation: Performing Lab: Notes/Report: [facility] ,SARS-CoV-2 AgNEGATIVENEGATIVE This test has not been [...] revoked sooner. Performing Lab:see noteML - [facility] LBTroponin I High Sensitivity Reviewed date:03/19/2025 10:38:37 AM Interpretation: Performing Lab: Notes/Report: [facility] ,Troponin I High Sensitivity5.34.0-76.1 pg/mL CUT-OFF POINTS HAVE BEEN ESTABLISHED BASED ON THE FOURTH UNIVERSAL DEFINITION OF MYOCARDIAL INFARCTION. THE UPPER REFERENCE LIMIT (URL) OF TROPONIN, DEFINED THE 99TH PERCENTILE OF cTnI DISTRIBUTION IN A REFERENCE POPULATION, HAS BEEN CONFIRMED THE DECISION THRESHOLD FOR OR DIAGNOSIS. 99TH PERCENTILE = 76.2 PG/ML NOTE: HIGH-SENSITIVITY TROPONIN ASSAY IS NOT INTENDED TO BE USED IN ISOLATION BUT SHOULD BE INTERPRETED IN CONJUNCTION WITH OTHER DIAGNOSTIC AND CLINICAL INFORMATION. Performing Lab:see noteML - [facility] LBPROF 14(COMP METB) Reviewed date:03/19/2025 10:38:37 AM Interpretation: Performing Lab: Notes/Report: [facility] ,Sbsxjo422108-655 mmol/LPotassium3.93.5-5.1 mmol/MUcmdvrjo52158-180 mmol/LCarbon Uoajvit11.321.0-32.0 mmol/LAnion Gap13.5Innkyrl74993-389 mg/dLBlood Urea Jdhqawkf58.07.0-18.0 mg/dLCreatinine1.030.70-1.30 mg/dLEstimated GFR ( Anupama>60>=60 mL/min/1.73m 2Estimated GFR (Non- Tia>60>=60 mL/min/1.73m 2BUN Creatinine Ratio13.9Jnghlnx9.38.5-10.1 mg/dLBilirubin Total0.70.2-1.0 mg/dL Aspartate Amino Fvwqnvvnihf7420-36 U/LAlanine Qnkxsrhptnlvigdc8168-98 U/L Alkaline Wvsvpizgadv7571-695 U/LTotal Protein8.66.4-8.2 g/dLAlbumin Level3.93.4- 5.0 g/dLGlobulin4.7Albumin Globulin Ratio0.8Performing Lab:see noteML - [facility] LBLIPASE Reviewed date:03/19/2025 10:38:37 AM Interpretation: Performing Lab: Notes/Report: [facility] ,Pzplve69.016.0-77.0 U/LPerforming Lab:see noteML - [facility] LB INFLUENZA A AND B AG Reviewed date:03/19/2025 10:38:37 AM Interpretation: Performing Lab: Notes/Report: [facility] ,Influenza Virus A AntigenNegative Negative for Flu [...] the test. Performing Lab:see noteML - [facility] LBCBC AUTO DIFF Reviewed date:03/19/2025 10:38:37 AM Interpretation: Performing Lab: Notes/Report: [facility] ,White Blood Count7.14.0-11.0 10 3/uLRed Blood Count5.474.70-6.10 10 6/uL Jknecaruow04.614.0-18.0 g/tRBlztccdrxi64.142.0-54.0 %Mean Corpuscular Tbjlxo43.3 80.0-94.0 fLMean Corpuscular Lgaegjbnsh00.325.9-34.0 pgMean Corpuscular HGB Conc 36.029.9-35.2 g/dLRed Cell Distribution Width12.111.0-15.0 %Platelet Lvpvy133 150-450 10 3/uLMean Platelet Evtgys93.19.5-13.5 fLNeutrophils Percent Auto58.3 43.0-75.0 %Lymphocytes Percent Auto35.320.5-60.0 %Monocytes Percent Auto5.61.7- 12.0 %Eosinophils Percent Auto0.40.9-7.0 %Basophils Percent Auto0.10.2-2.0 % Immature Granulocytes Pct Auto0.30.0-0.5 %Neutrophils Absolute Auto4.11.4-6.5 10 3/uLLymphocytes Absolute Auto2.51.2-3.8 10 3/uLMonocytes Absolute Auto0.40.3-0.8 10 3/uLEosinophils Absolute Auto0.00.0-0.7 10 3/uLBasophils Absolute Auto0.00.0- 0.1 10 3/uLImmature Granulocytes Abs Auto0.020.00-0.03 10 3/uLPerforming Lab:see noteML - [facility] LBPROF CHEM 8 (BAS METB) Reviewed date:08/06/2024 09:47:04 PM Interpretation: Performing Lab: Notes/Report: [facility] ,Vskzct942626-730 mmol/LPotassium4.03.5-5.1 mmol/WDqmksash83721-405 mmol/LCarbon Adrouye86.321.0-32.0 mmol/LAnion Gap12.2Uknudkd08295-042 mg/dLBlood Urea Bgvehdgs41.07.0-18.0 mg/dLCreatinine1.100.70-1.30 mg/dLEstimated GFR ( Anupama>60>=60 mL/min/1.73m 2Estimated GFR (Non- Tia>60>=60 mL/min/1.73m 2BUN Creatinine Ratio11.0Crbndbh9.98.5-10.1 mg/dLPerforming Lab:see noteML - [facility] LBCOVID-19, Flu A+B IH Reviewed date:03/19/2025 10:38:37 AM Interpretation: Performing Lab: Notes/Report: COVIDnegFLU AnegFLU BnegControlpos Reason For Referral No Information Medications Medication SIG (Take, Route, Frequency, Duration) Notes Start Date End Date Status Ventolin HFA 108 (90 Base) MCG/ACT INHAL E 1 TO 2 PUFFS EVERY 4 HOURS NEEDED; Duration: 17 ActiveDivalproex Sodium 250 MGTAKE 1 TABLET BY MOUTH IN THE MORNING AND 2 TABLETS IN THE EVENING; Duration: 30 daysActiveGabapentin 300 MG1 capsule Orally Once a day; Duration: 30 dayscall for lmrnnt475ActiveTriamcinolone Acetonide 0.1 %1 application Externally Two times a Week4ActiveCVS Glucose Meter Test Strips -as directed In Vitro daily; Duration: 30 days 5ActivePantoprazole Sodium 40 MG1 tablet Orally Once a day; Duration: 30 day(s)4ActivetraZODone HCl 50 MG1 tablet at bedtime as needed Orally Once a day; Duration: 30 days5ActiveMupirocin 2 %1 application Externally Twice a day; Duration: 5 days4ActiveOndansetron HCl 4 MG1 tablet Orally BID prn; Duration: 7 days5ActiveHyoscyamine Sulfate 0.125 MG1-2 tabs SL SL every 4 hrs PRN abd pain5ActiveLORazepam 0.5 MG1 tablet as needed for panic Orally Once a day; Duration: 30 days5Active metFORMIN HCl 500 MG1 tablet with a meal Orally Once a day; Duration: 30 days ActiveFLUoxetine HCl 20 MGas directed Orally Once a day; Duration: 30 daystake 2 capsules po daily for next 7 days than increase dose to 3 capsules po daily 5ActiveHydrocortisone 1 %1 application Externally Once a day12/10/2023 Active Social History Tobacco Use: Social History Observation Description Date Details (start date - stop date) Current Smoker NA - NA Tobacco Use/Smoking Question Answer Notes Patient is a current smoker How often do you smoke cigarettes?every dayHow many cigarettes a day do you smoke?11-20Alcohol Screen (Audit-C) Question Answer Notes Did you have a drink containing alcohol in the p ast year? No Plkyos9BsuzzjkgjtnqyfQpvozjqwYQURZ-O (Standard) Question Answer Notes Did you have a drink containing alcohol in the p ast year? No Qipyhe5CbuvryqiixtbemKewhbblu Problems Problem Type SNOMED Code ICD Code Onset Dates Problem Status W/U Status Risk Notes Problem Overweight (680396460) Overweight (E66.3) ActiveconfirmedProblemGeneralized anxiety disorder (47919112)Generalized anxiety disorder (F41.1)ActiveconfirmedProblemDepression (720259188)Depression (F32.9) ActiveconfirmedProblemErectile dysfunction (341657670)Erectile dysfunction (N52.9)ActiveconfirmedProblemGastroesophageal reflux disease (651414706)GERD without esophagitis (K21.9)ActiveconfirmedProblemMigraine (22538180)Migraine (G43.909)ActiveconfirmedProblemType 2 diabetes mellitus (53343264)Type 2 diabetes mellitus (E11.9)ActiveconfirmedProblemBronchitis (83001322)Bronchitis (J40)ActiveconfirmedProblemRash (012302554)Rash (R21)ActiveconfirmedProblemUpper respiratory infection (61451597)Upper respiratory infection (J06.9)Active confirmedProblemShingles (4723841)Shingles (B02.9)ActiveconfirmedProblem Hemorrhoids (40966132)Hemorrhoids (K64.9)ActiveconfirmedProblemCurrent smoker (42708477)Current smoker (F17.200)ActiveconfirmedProblemAbdominal discomfort (30434898)Abdominal discomfort (R10.9)ActiveconfirmedProblemPanic attack (567252126)Panic attack (F41.0)ActiveconfirmedProblemBright red blood per rectum (595978390)Bright red blood per rectum (K62.5)ActiveconfirmedProblemAnal fissure (65691803)Rectal fissure (K60.2)ActiveconfirmedProblemPain in limb (76500770) Heel pain, right (M79.671)ActiveconfirmedProblemInsomnia (051946883)Insomnia disorder (G47.00)ActiveconfirmedProblemIrritable bowel syndrome (89165671) Irritable bowel syndrome (IBS) (K58.9)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)Xcaxs-Lectxktji-Mlenq (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)Active confirmedProblemMixed anxiety and depressive disorder (497906221)Anxiety and depression (F41.8)ActiveconfirmedProblemMenopause (476768913)Insomnia associated with menopause (N95.1)Activeconfirmed Vital Signs Heart Rate 109 /min 06/15/2024 Fhhdxhrxghz40.4 degrees Vtixriksrb02/04/7778Pjdcanqw04 %06/15/2024lood pressure jonpyewbc92 mm Hg04/20/20252020Oybmor27 in04/20/2025lood pressure mbiiidkp303 mm Hg 04/20/20253499Eovkgq469.8 lbs106/21/2024BMI35.15 kg/m204/20/2025 Encounters Encounter Location Date Provider Diagnosis [facility] [address] [facility] [place] [address] 04/20/2025 Leighann Soriano Panic attack F41.0 a nd Anxiety and depression F41.8 [place] [address] [place] [address] 05/26/2024 Leighann Soriano Insomnia disorder G4 7.00 ; Rash and other nonspecific skin eruption R21 and Depression F32.9 [place] [address] [place] [address] 06/15/2024 Leighann Soriano Gastroenteritis K52. [address] [place] [address] 07/14/2024 Leighann Soriano Body aches R52 ; Gastroenteritis K52.9 and Vomiting R11.[address] [address] 07/17/2024 Leighann Soriano Bronchitis J40 [address] [place] [address] 07/20/2024 Martínez Hoy Gastroenteritis K52. [address] [place] [address] 06/08/2024 Martínez Hoy Cough R05.9 and Acut e bronchitis, unspecified organism J20.[address] [address] 04/03/2025 Leighann Soriano Type 2 diabetes hector itus E11.9 and Anxiety and depression F41.[address] [place] [address] 08/04/2024 Martínez Hoy Acute non-recurrent sinusitis, unspecified location J01.90 and Nasal congestion R09.[address] [place] [address] 06/01/2024 Leighann Soriano [address] [place] [address] 03/27/2025[facility] [address] [place], [place] [id number] [facility] [place] [address]/Alessiodinh [facility] [address] [place] [address]/Alessiodinh Soriano Assessments Encounter Date Diagnosis (ICD Code) [...] worsen 07/17/2024ronchitis (ICD-10 - J40)fu if not fkxolkndf55/20/2025Gastroenteritis (ICD-10 - K52.9)Get plenty of rest. Stay hydrated by sucking on ice chips or taking small sips of water. You can also try drinking clear soda, clear broths or noncaffeinated sports drinks. Stop eating solid foods for a few hours to let your stomach settle. East back into eating by eating bland, expd-pz-ywkkqm foods like crackers, toast, gelatin, bananas, rice and chicken. Try to avoid foods/substances including dairy products, caffeine, alcohol, nicotine and fatty or highly seasoned foods. Medications such as ibuprofen or tylenol can make your stomach more upset, so use sparingly if at all. Also avoid chqd-wgl-thhdjmr anti-diarrheal medications because it can make it harder for your body to eliminate the virus.5Acute non-recurrent sinusitis, unspecified location (ICD-10 - J01.90)Rest and drink more liquids, especially water. You may use a humidifier or vaporizer to help keep the drainage moist. Nylg-qap-zxvawea Nasal Saline may help the stuffy and runny nose. Use Ibuprofen and or Tylenol as needed for fever, chills, body aches or pain. Children 5 years old should not be given klad-wls-zttmxnp cough and cold medications such as guaifenesin and dextromethorphan. If you're over age 5, you may try higz-tmr-lkfdnlj cold medications such as guaifenesin and dextromethorphan, [...] below 65 consecutively. Reviewed with patient the half-way effects of Diabetes Mellitus on the body [...] F41.8) restart fluoxetine continue with counseling fu 1m 04/20/2025Panic attack (ICD-10 - F41.0) one time script for prn ativan OARRS reviewed CSA signed 04/20/2025nxiety and depression (ICD-10 - F41.8) trial of adding gabapentin for anxiety CSA signed, states no transportation last drug screen we requested increase prozac dosing states working on insurance, psych apt 08/04/2024Nasal congestion (ICD-10 - R09.81)07/14/2024Vomiting (ICD-10 - R11.10) 5Acute bronchitis, unspecified organism (ICD-10 - J20.9)Rest and drink more liquids, especially water. You may use a humidifier or vaporizer to help keep the drainage moist. Kpeo-wyx-biyixlh Nasal Saline may help the stuffy and runny nose. Use Ibuprofen and or Tylenol as needed for fever, chills, body aches or pain. Children 5 years old should not be given ujzc-hqn-lnbcgzn cough and cold medications such as guaifenesin and dextromethorphan. If you're over age 5, you may try boqj-god-bbwguzy cold medications such as guaifenesin and dextromethorphan, [...] go to the emergency room or call [phone] (ICD-10 - F32.9) psych referral sheet given needs to re establish with psych will review meds with Dr Donato Plan Of Treatment Pending Test Test Name Order Date COVID-19, Flu A+B IH 07/14/2024 INFLUENZA A AND B AG 04/23/2025 SARS-CoV-2 Ag* 04/23/2025 Next Appt Details Provider Name:Leighann doss, 05/04/2025 09:30:00 AM, [address] [facility], [place], [address], Medical (General) History Medical History History ICD Code Bronchitis J40 Heel pain, right M79.671 Hemorrhoids K64.9 Upper respiratory infection J06.9 Depression F32.9 Rash R21 Shingles B02.9 Migraine G43.909 Gastro-esophageal reflux disease K21.9 Bright red blood per rectum K62.5 Irritable bowel syndrome (IBS) K58.9 Panic attack F41.0 Vbohd-Zhbptpoiy-Ljstv (WPW) syndrome I45 .6 Overweight E66.3 Abdominal discomfort R10.9 Generalized anxiety disorder F41.1 Current smoker F17.200
--- NOTE | 2025-04-23 11:13 | PC.NURSE ---
applied bacitracin, telfa and kerlix to R hand burn.
== END 2025-04-23 11:17 | disposition home or self-care (01) ==
PROVIDERS: Emergency Provider Emergency Medicine; PCP Nurse Practitioner Family
DX: J06.9 Acute upper respiratory infection, unspecified (principal); F17.200 Nicotine dependence, unspecified, uncomplicated
CPT/HCPCS: 87804; 87811; 99283; Q0162

== ENCOUNTER 2025-04-24 17:08 | Emergency (ER) | payer OTHER, SELFPAY ==
--- OUTSIDE RECORDS SUMMARY | 2024-08-08 08:30 | XMS_ITS ---
Author Organization The [facility] in [place] Address [address] [place] [address] Care Team Providers Care Pipeliner Name Role Phone Leighann Mahoney Primary Care Provider REASON FOR VISIT STILL SICK Encounters Encounter Location Date Provider Diagnosis [facility] [address] [place] [address] 08/08/2024 Leighann Mahoney Plan Of Treatment Next Appt Details Provider Name:Leighann doss, 05/04/2025 09:30:00 AM, [address] [place], [address], Progress Notes * Genesis PACKEROB:1985 (39 yo M)Acc No.[id number]:08/08/2024 UNLOCKED PROGRESS NOTE Progress Note Patient: Tristin CARL :?Leighann Mahoney ([facility]), CNPDOB:1985 ???Age:38 Y???Sex:MaleDate:08/08/2024Phone:[phone]:[address] [place], [place] Subjective: * Chief Complaints: * 1 . STILL SICK. * Medical History: Objective: * Vitals: Assessment: Plan: * Treatment: * * Electronic signature of Leighann Mahoney NP, TOBACCO WETTER.RADAR TECHNICIAN.[id number] on 04/24/2025 at 08:03 PM ESTSign off status: PendingVisit Status:?OFF CANC (OFFICE CANCEL) * Provider: Phan Mahoney ([facility]), RADAR TECHNICIAN Date: 0 08/08/2024 Generated for Printing/Faxing/eTransmitting on:?04/24/2025 08:03 PM EST
--- OUTSIDE RECORDS SUMMARY | 2025-04-11 07:32 | XMS_ITS ---
Author Organization [facility] in [place] Address [address] [place] [address] Care Team Providers Care Quantitative Consultant Name Role Phone Leighann Mahoney Primary Care Provider Encounters Encounter Location Date Provider Diagnosis Electronic Health Records [address] [place] [address] 04/11/2025 Leighann Mahoney Plan Of Treatment Next Appt Details Provider Name:Leighann doss, 05/04/2025 09:30:00 AM, [address] [facility], [place], [address], Progress Notes * Genesis PACKEROB:1985 (39 yo M)Acc No.[id number]:04/11/2025 Patient:?Tristin PACKER :1985???Age:39 Y???Sex:MalePhone:[phone] Address:[address] [place] [address] Subjective: * Chief Complaints: * * Medical History: * Surgical History: * Hospitalization/Major Diagno stic Procedure: * Medications: Objective: * Vitals: * Physical Examination: ??? Assessment: Plan: * Treatment: * Procedure Codes: * Preventive Medicine: ??Screenings/Counseling:?TOBACCO ACTION PLAN?Patient counselled on the dangers of tobacco use and urged to quit.? 04/03/2025 - -Date counseled * true * Date:?Generated for Printing/Faxing/eTransmitting on:?04/24/2025 08:03 PM EST
--- OUTSIDE RECORDS SUMMARY | 2025-04-17 03:44 | XMS_ITS ---
Author Organization The [facility] in [place] Address [address] [place] [address] Care Team Providers Care Television Journalist Name Role Phone Leighann Mahoney Primary Care Provider Encounters Encounter Location Date Provider Diagnosis [facility] [address] [place] [address] 04/17/2025 Leighann Mahoney Plan Of Treatment Next Appt Details Provider Name:Leighann doss, 05/04/2025 09:30:00 AM, [address] [place], [address], Progress Notes * Genesis PACKEROB:1985 (39 yo M)Acc No.[id number]:04/17/2025 Patient:?Tristin PACKER :1985???Age:39 Y???Sex:MalePhone:[phone] Address:[address] [place] [address] Subjective: * Chief Complaints: * * Medical History: * Surgical History: * Hospitalization/Major Diagno stic Procedure: * Medications: Objective: * Vitals: * Physical Examination: ??? Assessment: Plan: * Treatment: * Procedure Codes: * true * Date:?Generated for Printing/Faxing/eTransmitting on:?04/24/2025 08:03 PM EST
--- OUTSIDE RECORDS SUMMARY | 2025-04-20 08:00 | XMS_ITS ---
Author Organization [facility] [place] Address [address] [place] [address] Care Team Providers Care Crocodile Farmer Name Role Phone Leighann Mahoney Primary Care [...] this AM- was taken by squad to [facility]- they gave him Ativan- also said a [...] Once a day; Duration: 30 dayscall for qugzeo405ActiveTriamcinolone Acetonide 0.1 %1 application Externally Two times [...] 04/20/2025 Encounters Encounter Location Date Provider Diagnosis [address] [address] 04/20/2025 Leighann Mahoney Panic attack F41.0 and [...] Name:Leighann doss, 05/04/2025 09:30:00 AM, [address] [facility], [address], [place], [address], Progress Notes * Genesis PACKEROB:1985 (39 yo M)Acc No.[id number]:04/20/2025 Progress Note Patient: Tristin CARL :?Leighann Mahoney ([facility]), CNPDOB:1985 ???Age:39 Y???Sex:MaleDate:04/20/2025Phone:[phone]:[address] [place], [id number] In:01:00 PM ESTCheck Out:01:25 PM EST Subjective: * Chief Complaints: * 1 . SELF PAY med adjustment. 2. Wants his Prozac increased. 3. Also said that he had a really bad panic attack this AM- was taken by squad to [facility]- they gave him Ativan- also said a [...] Active Problem List G43.909 Migraine Modified On:08/11/2022 Status:vdjraeqpjQ07Wbpxwkdnoe Modified On:08/11/2022 Status:oxraijytpD62Wwtq Modified On:08/11/2022 Status:qsxeewbybT14.9Upper respiratory infection Modified On:08/11/2022 Status:ymhdkqvfiO37.9Shingles Modified On:08/11/2022 Status:abzxoagvjO95.9Hemorrhoids Modified On:08/11/2022 Status:ccoxchcvwG75.200Current smoker Modified On:08/11/2022 Status:zstmdseqcC00.9Abdominal discomfort Modified On:08/11/2022 Status:brwuyfcziH41.0Panic attack Modified On:08/11/2022 Status:urloyjtmyP74.5Bright red blood per rectum Modified On:08/11/2022 Status:njbzhkgpfB14.3Overweight Modified On:08/11/2022 Status:ebtzkcmkoS18.1Generalized anxiety disorder Modified On:08/11/2022 Status:rppecbnhlL77.9Depression Modified On:07/27/2023 Status:cyddwoauqO65.671Heel pain, right Modified On:08/11/2022 Status:xlffhpkroN48.9Irritable bowel syndrome (IBS) Modified On:08/11/2022 Status:tqvnqaydiV67.7Uxunu-Iduvifpge-Ckjry (WPW) syndrome Modified On:08/11/2022 Status:dslbrrtgvI32.9Erectile dysfunction Modified On:07/27/2023 Status:wllpobjmcV27.2Rectal fissure Modified On:12/07/2023 Status:rosebbngqU14.9GERD without esophagitis Modified On:12/07/2023 Status:gebvvbaxsD11.00Insomnia disorder Modified On:05/26/2024 Status:yeivappffO97.1Insomnia associated with menopause Modified On:05/26/2024 Status:rwitendpkA67.9Type 2 diabetes mellitus Modified On:03/27/2025 Status:qhjajkkqzW53.8Anxiety and depression Modified On:04/03/2025 Status:confirmed * Medical History: B ronchitis, Heel pain, right, Hemorrhoids, Upper respiratory infection, Depression, Rash, Shingles, Migraine, Gastro-esophageal reflux disease, Bright red blood per rectum, Irritable bowel syndrome (IBS), Panic attack, Buyeo-Uogrkvvmi-Urkhu (WPW) syndrome, Overweight, Abdominal discomfort, Generalized anxiety [...] * Electronically signed by Leighann Mahoney NP, MACHINE PULLER AND LASTER.CASE MAKER.[id number] on 04/23/2025 at 12:51 PM ESTSign off status: CompletedVisit Status:?CHK (Check Out) true * Provider: Phan Mahoney (GEORGE), CASE MAKER Date: 1 06/21/2024 Generated for Printing/Faxing/eTransmitting on:?04/24/2025 08:03 PM EST History and Physical Notes * [...]
[2025-04-24 17:11] VITALS: BP 149/94; PULSE 91; TEMP 36.6; O2SAT 96; BMI 32.6
--- OUTSIDE RECORDS SUMMARY | 2025-04-24 20:03 | XMS_ITS | Clinical Summary ---
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 Oahfxwkqsx63/23/2024Erectile fixniibdnsj18/23/2024Generalized anxiety disorder 02/23/2024GERD (gastroesophageal reflux disease)02/23/2024History of shingles 02/23/2024IBS (irritable bowel syndrome)02/23/20241072Diakhvncd33/23/2024Morbid tpliptz7402/23/2024bdominal pain, lwyqufcfht91/23/2024anic disorder without agoraphobia with mild panic ddanymg6402/23/2024ectal xuqtrlvf74/23/2024 Clgot-Lvfrgrajp-Oqwcs /23/2024nal pain02/23/2024 Social History Tobacco UseTypesPacks/DayYears UsedDateSmoking [...] file03/14/2024Sexually AbusedNot on file03/14/2024HQ-2AnswerDate RecordedPatient Health Questionnaire-2 Satri52405/14/2023Sex and Gender InformationValueDate RecordedSex Assigned at BirthNot on fileLegal SexMale 02/11/2024 3:19 PM EDTGender IdentityNot on fileSexual OrientationNot on file Last Filed Vital Signs Vital SignReadingTime TakenCommentsBlood Bajvbfia148/8903/14/2024 2:20 PM EST Zwpqs432603/14/2024 2:20 PM KSRDyneaxguosg92.6 ??C (97.8 ??F)03/14/2024 2:20 PM ESTRespiratory Keyd2540 9:45 AM EDTOxygen Zalioawpqu96%03/14/2024 2:20 PM ESTInhaled Oxygen Concentration--Ugowub772 kg (314 lb 3.2 oz)03/14/2024 2:20 PM AOYTwwwqg125.5 cm (6' 3 )03/14/2024 2:20 PM ESTBody Mass Index39.27105/14/2023 2:20 PM EST Plan of Treatment Health MaintenanceDue DateLast DoneCommentsDepression Jepwmasqd55/19/2000 Varicella Vaccines (1 of 2 - 13+ 2-dose series)08/19/2000Hepatitis B Vaccines (1 of 3 - 19+ 3-dose series)08/19/2006Pneumococcal Vaccine: Pediatrics (0 to 5 Years) and At-Risk Patients (6 to 64 Years) (1 of 2 - PCV)08/19/2006dult Vcujgit5308/19/2009HPV Vaccines (1 - 3-dose SCDM series)08/19/2014COVID-19 Vaccine [...] (Latest Code Status on File) Date ActivatedDate GaaifgkqlrqXhnykwjl35/29/2024 6:22 AM02/29/2024 12:22 PM
--- OUTSIDE RECORDS SUMMARY | 2025-04-24 20:04 | XMS_ITS | Patient Health Record ---
Author Organization [facility] in [place] Address [address] [place] [address] Care Team Providers Care Patient Care Manager Name Role Phone Leighann Soriano Primary Care Provider [phone] Genna Martínez Rodriguez [phone] Allergies Allergen (clinical drug ingredient) Drug/Non Drug Allergy documented on EMR Reaction Allergy Type Onset Date Status erythromycin Erythromycin Base hives Drug Allergy Activepenicillin VPenicillin V PotassiumhivesDrug AllergyActive Results Component Value Reference Range Notes COVID-19, Flu A+B IH Reviewed date:03/19/2025 10:38:37 AM Interpretation: Performing Lab: Notes/Report: COVID neg FLU AnegFLU BnegControlposCBC AUTO DIFF Reviewed date:08/06/2024 09:47:04 PM Interpretation: Performing Lab: Notes/Report: [facility] ,White Blood Count7.44.0-11.0 10 3/uLRed Blood Count4.934.70-6.10 10 6/uL Orjtlzobhx49.014.0-18.0 g/oGJsylhnluar04.142.0-54.0 %Mean Corpuscular Iojtol54.4 80.0-94.0 fLMean Corpuscular Wfstyzjakj58.425.9-34.0 pgMean Corpuscular HGB Conc 35.629.9-35.2 g/dLRed Cell Distribution Width12.611.0-15.0 %Platelet Gwsdb716 150-450 10 3/uLMean Platelet Volume9.69.5-13.5 fLNeutrophils Percent Auto69.9 43.0-75.0 %Lymphocytes Percent Auto23.820.5-60.0 %Monocytes Percent Auto5.41.7- 12.0 %Eosinophils Percent Auto0.30.9-7.0 %Basophils Percent Auto0.30.2-2.0 % Immature Granulocytes Pct Auto0.30.0-0.5 %Neutrophils Absolute Auto5.21.4-6.5 10 3/uLLymphocytes Absolute Auto1.81.2-3.8 10 3/uLMonocytes Absolute Auto0.40.3-0.8 10 3/uLEosinophils Absolute Auto0.00.0-0.7 10 3/uLBasophils Absolute Auto0.00.0- 0.1 10 3/uLImmature Granulocytes Abs Auto0.020.00-0.03 10 3/uLPerforming Lab:see noteML - [facility] LBPROF CHEM 8 (BAS METB) Reviewed date:08/06/2024 09:47:04 PM Interpretation: Performing Lab: Notes/Report: [facility] ,Kyeekj000885-250 mmol/LPotassium4.03.5-5.1 mmol/PAbgdjhfh11746-371 mmol/LCarbon Qznjjlf82.321.0-32.0 mmol/LAnion Gap12.0Mwqhnyw41932-689 mg/dLBlood Urea Uyxvkoim97.07.0-18.0 mg/dLCreatinine1.100.70-1.30 mg/dLEstimated GFR ( Anupama>60>=60 mL/min/1.73m 2Estimated GFR (Non- Tia>60>=60 mL/min/1.73m 2BUN Creatinine Ratio11.1Vhctngd2.98.5-10.1 mg/dLPerforming Lab:see noteML - [facility] LBECG 12 lead Reviewed date:08/06/2024 09:47:04 PM Interpretation: Performing Lab: Notes/Report: Source Facility: [facility]-[address] [place] [address] [place] [address] Electrocardiograph Report Signed Patient: CHUCK PACKER MR#: [id number] : 1985 Acct:[id number] Age/Sex: 38 / M ADM Date: 07/30/24 Loc: ER Attending Dr: Ordering Physician: Leyda Barrientos M.D. 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 Measurements Intervals [place] Rate: 95 P: 44 PA: 120 QRS: 15 QRSD: 76 T: -5 [...] By: JITENDRA FOOTE Signed By: 07/30/242019 DD/ 141 TD/TT: Manager Transplant:CBC AUTO DIFF Reviewed date:01/18/2025 10:48:48 AM Interpretation: Performing Lab: Notes/Report: [facility] ,White Blood Count8.44.0-11.0 10 3/uLRed Blood Count5.214.70-6.10 10 6/uL Wfmtarrdjj26.714.0-18.0 g/oGHsaqaqzmzt36.742.0-54.0 %Mean Corpuscular Tnzgwq02.9 80.0-94.0 fLMean Corpuscular Mvdiuzcsqo26.125.9-34.0 pgMean Corpuscular HGB Conc 35.929.9-35.2 g/dLRed Cell Distribution Width11.911.0-15.0 %Platelet Bpvuv758 150-450 10 3/uLMean Platelet Volume9.89.5-13.5 fLNeutrophils Percent Auto63.7 43.0-75.0 %Lymphocytes Percent Auto30.520.5-60.0 %Monocytes Percent Auto5.31.7- 12.0 %Eosinophils Percent Auto0.20.9-7.0 %Basophils Percent Auto0.10.2-2.0 % Immature Granulocytes Pct Auto0.20.0-0.5 %Neutrophils Absolute Auto5.41.4-6.5 10 3/uLLymphocytes Absolute Auto2.61.2-3.8 10 3/uLMonocytes Absolute Auto0.50.3-0.8 10 3/uLEosinophils Absolute Auto0.00.0-0.7 10 3/uLBasophils Absolute Auto0.00.0- 0.1 10 3/uLImmature Granulocytes Abs Auto0.020.00-0.03 10 3/uLPerforming Lab:see noteML - [facility] LBD-DIMER Reviewed date:01/18/2025 10:48:48 AM Interpretation: Performing Lab: Notes/Report: [facility] ,D Dimer0.20<=0.59 mg/L FEU Increases in [...] generalized hospitalization. Performing Lab:see noteML - [facility] LBPROF CHEM 8 (BAS METB) Reviewed date:01/18/2025 10:48:48 AM Interpretation: Performing Lab: Notes/Report: [facility] ,Zcbrdz086221-648 mmol/LPotassium4.03.5-5.1 mmol/BNkalrvcb16016-234 mmol/LCarbon Qhhgsmz80.221.0-32.0 mmol/LAnion Gap12.7Tssceco53410-763 mg/dLBlood Urea Miuohrxz19.07.0-18.0 mg/dLCreatinine1.070.70-1.30 mg/dLEstimated GFR ( Anupama>60>=60 mL/min/1.73m 2Estimated GFR (Non- Tia>60>=60 mL/min/1.73m 2BUN Creatinine Ratio15.8Jnazwmi7.08.5-10.1 mg/dLPerforming Lab:see noteML - [facility] LBTroponin I High Sensitivity Reviewed date:01/18/2025 10:48:48 AM Interpretation: Performing Lab: Notes/Report: [facility] ,Troponin I High Sensitivity<4.04.0-76.1 pg/mL CUT-OFF POINTS HAVE BEEN ESTABLISHED BASED ON THE FOURTH UNIVERSAL DEFINITION OF MYOCARDIAL INFARCTION. THE UPPER REFERENCE LIMIT (URL) OF TROPONIN, DEFINED THE 99TH PERCENTILE OF cTnI DISTRIBUTION IN A REFERENCE POPULATION, HAS BEEN CONFIRMED THE DECISION THRESHOLD FOR GA DIAGNOSIS. 99TH PERCENTILE = 76.2 PG/ML NOTE: HIGH-SENSITIVITY TROPONIN ASSAY IS NOT INTENDED TO BE USED IN ISOLATION BUT SHOULD BE INTERPRETED IN CONJUNCTION WITH OTHER DIAGNOSTIC AND CLINICAL INFORMATION. Performing Lab:see noteML - [facility] JQDEST-IkP-0 Ag* Reviewed date:01/18/2025 10:48:48 AM Interpretation: Performing Lab: Notes/Report: [facility] ,SARS-CoV-2 AgNEGATIVENEGATIVE This test has not [...] is revoked sooner. Performing Lab:see noteML - [facility] LBECG 12 lead Reviewed date:01/18/2025 10:48:48 AM Interpretation: Performing Lab: Notes/Report: Source Facility: [facility]-[address] [place] [address] [place] [address] Electrocardiograph Report Signed Patient: CHUCK PACKER MR#: [id number] : 1985 Acct:[id number] Age/Sex: 39 / M ADM Date: 01/17/25 Loc: ER Attending Dr: Ordering Physician: Kacie Rodriguez Date of Service: 01/17/25 Procedure(s): ECG 12 lead Accession Number(s): [id number] cc: [facility] Test Date: 2025-01-17 Pat Name: CHUCK PACKER Department: Room: - Gender: Male 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 Measurements Intervals [place] Rate: 94 P: 54 PA: 130 QRS: 44 QRSD: 74 T: 49 QT: 342 QTc: 394 Interpretive Statements [address] elevation, probably early repolarization 9130 borderline ECG Compared to ECG 07/30/2024 14:12:13 ST (T wave) deviation now present Early repolarization now present Left ventricular hypertrophy no longer present Electronically Signed On 01-17-2025 17:53:50 EDT by JITENDRA FOOTE M.D. Dictated By: JITENDRA FOOTE Signed By: 01/17/25 1754 DD/ 1339 TD/TT: Manager Transplant:XR chest 1V Reviewed date:01/18/2025 10:48:48 AM Interpretation: Performing Lab: Notes/Report: Source Facility: [place] [address] [place] [address] XRay Report Signed Patient: CHUCK PACKER MR#: [id number] : 1985 Acct:[id number] Age/Sex: 39 / M ADM Date: 01/17/25 Loc: ER Attending Dr: Ordering Physician: Kacie Rodriguez Date of Service: 01/17/25 Procedure(s): XR chest 1V Accession Number(s): [id number] cc: LEIGHANN SORIANO ; Kacie Rodriguez [place] [id number] Patient Name: CHUCK PACKER MRN: [id number] date: 1985 Sex: M Assigned Patient Location: ER Current Patient Location: ED.MAIN Accession/Order Number: [id number] Exam Date: 01/17/2025 14:02 Report Date: 01/17/2025 14:48 At the request of: KACIE RIZZO Procedure: XR chest 1V PA CHEST: CLINICAL HISTORY: Chest pain COMPARISON: 07/15/2024 Unremarkable cardiac mediastinal silhouette. Lungs clear. No effusion or pneumothorax. XR/XR chest 1V IMPRESSION: NEGATIVE ACUTE PLEURAL-PARENCHYMAL DISEASE. Impression dictated by: Chandler Fields M.D. 01/17/2025 2:48 PM Dictation Location: [place] [address] Electronically authenticated by: [id number] Y Date: 01/17/2025 14:48 Dictated By: Chandler Fields M.D. Signed By: 01/17/25 1450 DD/ 1448 TD/TT: Manager Transplant:Troponin I High Sensitivity Reviewed date:01/18/2025 10:48:48 AM Interpretation: Performing Lab: Notes/Report: [facility] ,Troponin I High Sensitivity4.24.0-76.1 pg/mL CUT-OFF POINTS HAVE BEEN ESTABLISHED BASED ON THE FOURTH UNIVERSAL DEFINITION OF MYOCARDIAL INFARCTION. THE UPPER REFERENCE LIMIT (URL) OF TROPONIN, DEFINED THE 99TH PERCENTILE OF cTnI DISTRIBUTION IN A REFERENCE POPULATION, HAS BEEN CONFIRMED THE DECISION THRESHOLD FOR GA DIAGNOSIS. 99TH PERCENTILE = 76.2 PG/ML NOTE: HIGH-SENSITIVITY TROPONIN ASSAY IS NOT INTENDED TO BE USED IN ISOLATION BUT SHOULD BE INTERPRETED IN CONJUNCTION WITH OTHER DIAGNOSTIC AND CLINICAL INFORMATION. Performing Lab:see noteML - [facility] LBCBC AUTO DIFF Reviewed date:01/29/2025 09:03:45 AM Interpretation: Performing Lab: Notes/Report: [facility] ,White Blood Count7.74.0-11.0 10 3/uLRed Blood Count5.164.70-6.10 10 6/uL Hbmqexrnlu54.814.0-18.0 g/lNXwseyvgkdi26.342.0-54.0 %Mean Corpuscular Aqbtxc61.9 80.0-94.0 fLMean Corpuscular Gchwfojhjq08.625.9-34.0 pgMean Corpuscular HGB Conc 36.529.9-35.2 g/dLRed Cell Distribution Width12.011.0-15.0 %Platelet Triwk782 150-450 10 3/uLMean Platelet Volume9.89.5-13.5 fLNeutrophils Percent Auto60.1 43.0-75.0 %Lymphocytes Percent Auto32.820.5-60.0 %Monocytes Percent Auto6.11.7- 12.0 %Eosinophils Percent Auto0.40.9-7.0 %Basophils Percent Auto0.30.2-2.0 % Immature Granulocytes Pct Auto0.30.0-0.5 %Neutrophils Absolute Auto4.61.4-6.5 10 3/uLLymphocytes Absolute Auto2.51.2-3.8 10 3/uLMonocytes Absolute Auto0.50.3-0.8 10 3/uLEosinophils Absolute Auto0.00.0-0.7 10 3/uLBasophils Absolute Auto0.00.0- 0.1 10 3/uLImmature Granulocytes Abs Auto0.020.00-0.03 10 3/uLPerforming Lab:see noteML - [facility] LBD-DIMER Reviewed date:01/29/2025 09:03:45 AM Interpretation: Performing Lab: Notes/Report: [facility] ,D Dimer<0.19<=0.59 mg/L FEU Increases in [...] generalized hospitalization. Performing Lab:see noteML - [facility] LBPROF CHEM 8 (BAS METB) Reviewed date:01/29/2025 09:03:45 AM Interpretation: Performing Lab: Notes/Report: [facility] ,Vtldco492274-011 mmol/LPotassium3.93.5-5.1 mmol/VWcdzyfrx09115-107 mmol/LCarbon Smjacae19.021.0-32.0 mmol/LAnion Gap15.1Wtbdoio84908-485 mg/dLBlood Urea Bvspgksp81.07.0-18.0 mg/dLCreatinine0.940.70-1.30 mg/dLEstimated GFR ( Anupama>60>=60 mL/min/1.73m 2Estimated GFR (Non- Tia>60>=60 mL/min/1.73m 2BUN Creatinine Ratio13.9Ispzfay3.18.5-10.1 mg/dLPerforming Lab:see note - [facility] LBTroponin I High Sensitivity Reviewed date:01/29/2025 09:03:45 AM Interpretation: Performing Lab: Notes/Report: [facility] ,Troponin I High Sensitivity4.94.0-76.1 pg/mL CUT-OFF POINTS HAVE BEEN ESTABLISHED BASED ON THE FOURTH UNIVERSAL DEFINITION OF MYOCARDIAL INFARCTION. THE UPPER REFERENCE LIMIT (URL) OF TROPONIN, DEFINED THE 99TH PERCENTILE OF cTnI DISTRIBUTION IN A REFERENCE POPULATION, HAS BEEN CONFIRMED THE DECISION THRESHOLD FOR GA DIAGNOSIS. 99TH PERCENTILE = 76.2 PG/ML NOTE: HIGH-SENSITIVITY TROPONIN ASSAY IS NOT INTENDED TO BE USED IN ISOLATION BUT SHOULD BE INTERPRETED IN CONJUNCTION WITH OTHER DIAGNOSTIC AND CLINICAL INFORMATION. Performing Lab:see note - [facility] LBECG 12 lead Reviewed date:01/29/2025 03:35:15 PM Interpretation: Performing Lab: Notes/Report: Source Facility: [facility]-[address] [place] [address] [place] [address] Electrocardiograph Report Signed Patient: CHUCK PACKER MR#: [id number] : 1985 Acct:[id number] Age/Sex: 39 / M ADM Date: 01/28/25 Loc: ER Attending Dr: Ordering Physician: Leyda Barrientos M.D. 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 Signed By: 01/29/25 1514 DD/ 1224 TD/TT: Manager Transplant:XR chest 1V Reviewed date:01/29/2025 09:03:45 AM Interpretation: Performing Lab: Notes/Report: Source Facility: [place] [address] XRay Report Signed Patient: CHUCK PACKER MR#: [id number] : 1985 Acct:[id number] Age/Sex: 39 / M ADM Date: 01/28/25 Loc: ER Attending Dr: Ordering Physician: Leyda Barrientos M.D. Date of Service: 01/28/25 Procedure(s): XR chest 1V Accession Number(s): [id number] cc: LEIGHANN SORIANO Jeffery D M.D. [place] [address] Patient Name: CHUCK PACKER MRN: [id number] date: 1985 Sex: M Assigned Patient Location: ED.MAIN Current Patient Location: ED.MAIN Accession/Order Number: [id number] Exam Date: 01/28/2025 13:33 Report Date: 01/28/2025 [...] Enamorado M.D. 01/28/2025 2:07 PM Dictation Location: [place] [address] Electronically authenticated by: [id number] Y Date: 01/28/2025 14:07 Dictated By: Antione Enamorado M.D. Signed By: 01/28/25 1410 DD/ 1407 TD/TT: Manager Transplant:CBC AUTO DIFF Reviewed date:03/19/2025 10:38:37 AM Interpretation: Performing Lab: Notes/Report: [facility] ,White Blood Count7.14.0-11.0 10 3/uLRed Blood Count5.474.70-6.10 10 6/uL Vpmiywnwgs09.614.0-18.0 g/cRRrnydpcigx40.142.0-54.0 %Mean Corpuscular Trzdnv17.3 80.0-94.0 fLMean Corpuscular Uonbhetcck12.325.9-34.0 pgMean Corpuscular HGB Conc 36.029.9-35.2 g/dLRed Cell Distribution Width12.111.0-15.0 %Platelet Swhzp421 150-450 10 3/uLMean Platelet Wgkhwj68.19.5-13.5 fLNeutrophils Percent Auto58.3 43.0-75.0 %Lymphocytes Percent Auto35.320.5-60.0 %Monocytes Percent Auto5.61.7- 12.0 %Eosinophils Percent Auto0.40.9-7.0 %Basophils Percent Auto0.10.2-2.0 % Immature Granulocytes Pct Auto0.30.0-0.5 %Neutrophils Absolute Auto4.11.4-6.5 10 3/uLLymphocytes Absolute Auto2.51.2-3.8 10 3/uLMonocytes Absolute Auto0.40.3-0.8 10 3/uLEosinophils Absolute Auto0.00.0-0.7 10 3/uLBasophils Absolute Auto0.00.0- 0.1 10 3/uLImmature Granulocytes Abs Auto0.020.00-0.03 10 3/uLPerforming Lab:see noteML - [facility] LBDRUG SCREEN RAPID (URINE) Reviewed date:03/19/2025 10:38:37 AM Interpretation: Performing Lab: Notes/Report: [facility] ,Cannabinoid Screen UrinePOSITIVENEGATIVEPhencyclidine Screen UrineNEGATIVE NEGATIVECocaine [...] Antidepressants): 300 ng/mL Performing Lab:see noteML - [facility] LBINFLUENZA A AND B AG Reviewed date:03/19/2025 10:38:37 AM Interpretation: Performing Lab: Notes/Report: [facility] ,Influenza Virus A AntigenNegative Negative for [...] the test. Performing Lab:see noteML - [facility] LBLIPASE Reviewed date:03/19/2025 10:38:37 AM Interpretation: Performing Lab: Notes/Report: [facility] ,Jdjpwd65.016.0-77.0 U/LPerforming Lab:see noteML - [facility] LBPROF 14(COMP METB) Reviewed date:03/19/2025 10:38:37 AM Interpretation: Performing Lab: Notes/Report: [facility] ,Grcapv630355-034 mmol/LPotassium3.93.5-5.1 mmol/USuzftlpr73443-364 mmol/LCarbon Ixvmums84.321.0-32.0 mmol/LAnion Gap13.6Wnfymco15617-588 mg/dLBlood Urea Guecnrca49.07.0-18.0 mg/dLCreatinine1.030.70-1.30 mg/dLEstimated GFR ( Anupama>60>=60 mL/min/1.73m 2Estimated GFR (Non- Tia>60>=60 mL/min/1.73m 2BUN Creatinine Ratio13.1Droleyn0.38.5-10.1 mg/dLBilirubin Total0.70.2-1.0 mg/dL Aspartate Amino Xjpggqtspws6828-55 U/LAlanine Ybebfvnwaqihobkr6658-48 U/L Alkaline Nnvkxuojzef1505-864 U/LTotal Protein8.66.4-8.2 g/dLAlbumin Level3.93.4- 5.0 g/dLGlobulin4.7Albumin Globulin Ratio0.8Performing Lab:see noteML - [facility] LBTroponin I High Sensitivity Reviewed date:03/19/2025 10:38:37 AM Interpretation: Performing Lab: Notes/Report: [facility] ,Troponin I High Sensitivity5.34.0-76.1 pg/mL CUT-OFF POINTS HAVE BEEN ESTABLISHED BASED ON THE FOURTH UNIVERSAL DEFINITION OF MYOCARDIAL INFARCTION. THE UPPER REFERENCE LIMIT (URL) OF TROPONIN, DEFINED THE 99TH PERCENTILE OF cTnI DISTRIBUTION IN A REFERENCE POPULATION, HAS BEEN CONFIRMED THE DECISION THRESHOLD FOR GA DIAGNOSIS. 99TH PERCENTILE = 76.2 PG/ML NOTE: HIGH-SENSITIVITY TROPONIN ASSAY IS NOT INTENDED TO BE USED IN ISOLATION BUT SHOULD BE INTERPRETED IN CONJUNCTION WITH OTHER DIAGNOSTIC AND CLINICAL INFORMATION. Performing Lab:see noteML - [facility] CMMJDX-OaU-6 Ag* Reviewed date:03/19/2025 10:38:37 AM Interpretation: Performing Lab: Notes/Report: [facility] ,SARS-CoV-2 AgNEGATIVENEGATIVE This test has not [...] is revoked sooner. Performing Lab:see noteML - [facility] LBUA Micro, reflex to culture Reviewed date:03/19/2025 10:38:37 AM Interpretation: Performing Lab: Notes/Report: [facility] ,Color UrineYELLOWYELLOWClarity UrineCLEARCLEARSpecific [place] Urine1.025 1.005-1.025pH Urine6.05.0-9.0Protein UrineTRACENEG/TRACE mg/dLGlucose Urine UA NEGATIVENEGATIVE mg/dLBilirubin UrineNEGATIVENEGATIVEKetones UrineTRACENEGATIVE mg/dLBlood UrineSMALLNEGATIVENitrite UrineNEGATIVENEGATIVEUrobilinogen Urine0.2 0.2-1.0 EU/dLLeukocyte Esterase UrineNEGATIVENEGATIVEWBC UrineNONE SEENNONE SEEN #/HPFRBC Urine0-20-2 #/HPFBacteria UrineTRACENONE SEEN #/HPFMucus UrineTRACENONE SEENSquamous Epithelial Cell UrineRARENONE/RARE #/LPFCrystals Seen?None SeenNone Seen #/HPFCast Seen?NONE SEENNONE SEEN #/LPFPerforming Lab:see noteML - [facility] LBECG 12 lead Reviewed date:03/19/2025 10:38:37 AM Interpretation: Performing Lab: Notes/Report: Source Facility: [facility]-[address] [place] [address] The [place] [id number] Electrocardiograph Report Signed Patient: CHUCK PACKER MR#: [id number] : 1985 Acct:[id number] Age/Sex: 39 / M ADM Date: Loc: ER Attending Dr: Ordering Physician: Jil Benitez Date of Service: 03/17/25 Procedure(s): ECG 12 lead Accession Number(s): [id number] cc: [facility] Test Date: 2025-03-17 Pat Name: CHUCK PACKER Department: Room: - Gender: Male Comb Setter: : 1985 Requested By: 0919 Order Number: [id number] Reading MD: JITENDRA FOOTE M.D. Measurements Intervals [place] Rate: 89 P: 44 PA: 138 QRS: 26 QRSD: 80 T: 46 QT: 334 QTc: 381 Interpretive Statements 1100 Sinus rhythm [address] elevation [address] [place] abnormality 9130 borderline ECG Compared to ECG 01/28/2025 12:24:48 No significant changes Electronically Signed On 03-17-2025 12:57:47 EST by JITENDRA FOOTE M.D. Dictated By: JITENDRA FOOTE Signed By: 03/17/25 1258 DD/ 1232 TD/TT: Manager Transplant:XR chest 2V Reviewed date:03/19/2025 10:38:37 AM Interpretation: Performing Lab: Notes/Report: Source Facility: [place] [address] [place] [address] XRay Report Signed Patient: CHUCK PACKER MR#: [id number] : 1985 Acct:[id number] Age/Sex: 39 / M ADM Date: Loc: ER Attending Dr: Ordering Physician: Jil Benitez Date of Service: 03/17/25 Procedure(s): XR chest 2V Accession Number(s): [id number] cc: LEIGHANN SORIANO ; Jil Benitez [place] [id number] Patient Name: CHUCK PACKER MRN: [id number] date: 1985 Sex: M Assigned Patient Location: ER Current Patient Location: ER Accession/Order Number: [id number] Exam Date: 03/17/2025 13:00 Report Date: 03/17/2025 [...] Chavez M.D. 03/17/2025 1:46 PM Dictation Location: [place] [address] Electronically authenticated by: [id number] Y Date: 03/17/2025 13:46 Dictated By: Jil Chavez D.O. Signed By: 03/17/25 1348 DD/ 1346 TD/TT: Manager Transplant:CT head/brain wo con Reviewed date:03/19/2025 10:38:37 AM Interpretation: Performing Lab: Notes/Report: Source Facility: [place] [address] CT Scan Report Signed Patient: CHUCK PACKER MR#: [id number] : 1985 Acct:[id number] Age/Sex: 39 / M ADM Date: Loc: ER Attending Dr: Ordering Physician: Jil Benitez Date of Service: 03/17/25 Procedure(s): CT head/brain wo con Accession Number(s): [id number] cc: LEIGHANN SORIANO [place] [address] Patient Name: CHUCK PACKER MRN: [id number] date: 1985 Sex: M Assigned Patient Location: ER Current Patient Location: ER Accession/Order Number: [id number] Exam Date: 03/17/2025 13:00 Report Date: 03/17/2025 13:45 At the request of: IJL BENITEZ MD Procedure: CT head/brain wo con [...] Chavez M.D. 03/17/2025 1:45 PM Dictation Location: [place] [address] Electronically authenticated by: [id number] Y Date: 03/17/2025 13:45 Dictated By: Jil Chavez D.O. Signed By: 03/17/25 1347 DD/ 44 TD/TT: Manager Transplant:CBC AUTO DIFF Reviewed date:03/21/2025 08:53:55 PM Interpretation: Performing Lab: Notes/Report: [facility] ,White Blood Count6.94.0-11.0 10 3/uLRed Blood Count5.234.70-6.10 10 6/uL Ctiaupfaud91.914.0-18.0 g/mLXjxcowwfwn54.742.0-54.0 %Mean Corpuscular Ifewyx02.5 80.0-94.0 fLMean Corpuscular Fsrkzeevnr42.425.9-34.0 pgMean Corpuscular HGB Conc 35.629.9-35.2 g/dLRed Cell Distribution Width12.111.0-15.0 %Platelet Fnjoo333 150-450 10 3/uLMean Platelet Iaxnsy91.29.5-13.5 fLNeutrophils Percent Auto63.3 43.0-75.0 %Lymphocytes Percent Auto30.820.5-60.0 %Monocytes Percent Auto4.91.7- 12.0 %Eosinophils Percent Auto0.60.9-7.0 %Basophils Percent Auto0.10.2-2.0 % Immature Granulocytes Pct Auto0.30.0-0.5 %Neutrophils Absolute Auto4.41.4-6.5 10 3/uLLymphocytes Absolute Auto2.11.2-3.8 10 3/uLMonocytes Absolute Auto0.30.3-0.8 10 3/uLEosinophils Absolute Auto0.00.0-0.7 10 3/uLBasophils Absolute Auto0.00.0- 0.1 10 3/uLImmature Granulocytes Abs Auto0.020.00-0.03 10 3/uLPerforming Lab:see noteML - [facility] LBDRUG SCREEN RAPID (URINE) Reviewed date:03/21/2025 08:53:55 PM Interpretation: Performing Lab: Notes/Report: [facility] ,Cannabinoid Screen UrinePOSITIVENEGATIVEPhencyclidine Screen UrineNEGATIVE NEGATIVECocaine [...] 300 ng/mL Performing Lab:see noteML - [facility] LBLIPASE Reviewed date:03/21/2025 08:53:56 PM Interpretation: Performing Lab: Notes/Report: [facility] ,Sqmobp01.016.0-77.0 U/LPerforming Lab:see noteML - [facility] LBPROF 14(COMP METB) Reviewed date:03/21/2025 08:53:56 PM Interpretation: Performing Lab: Notes/Report: [facility] ,Rjmohf134289-547 mmol/LPotassium3.83.5-5.1 mmol/QZivqfccw47399-385 mmol/LCarbon Nvesdzm93.321.0-32.0 mmol/LAnion Gap12.1Lpleyuq15359-303 mg/dLBlood Urea Dziihnne28.07.0-18.0 mg/dLCreatinine1.430.70-1.30 mg/dLEstimated GFR ( Anupama>60>=60 mL/min/1.73m 2Estimated GFR (Non- Ame56>=60 mL/min/1.73m 2 BUN Creatinine Ratio9.5Ynvciqd6.78.5-10.1 mg/dLBilirubin Total0.50.2-1.0 mg/dL Aspartate Amino Wvvnyyjhhuy0291-44 U/LAlanine Qtdohobmcrljbpyj5774-18 U/L Alkaline Eowlfshcxuz1378-393 U/LTotal Protein8.06.4-8.2 g/dLAlbumin Level3.53.4- 5.0 g/dLGlobulin4.5Albumin Globulin Ratio0.8Performing Lab:see noteML - [facility] LBTSH Reviewed date:03/21/2025 08:53:56 PM Interpretation: Performing Lab: Notes/Report: [facility] ,Thyroid Stimulating Hormone1.2350.358-3.740 uIU/mLPerforming Lab:see noteML - [facility] LBUA (CLEAN or CATCH) NON DESTRUCTIVE EVALUATION TECHNICIAN or MICRO IF IND. Reviewed date:03/21/2025 08:53:56 PM Interpretation: Performing Lab: Notes/Report: [facility] ,Color UrineYELLOWYELLOWClarity UrineCLEARCLEARSpecific [place] Urine1.025 1.005-1.025pH Urine6.05.0-9.0Protein UrineNEGATIVENEG/TRACE mg/dLGlucose Urine UA>=1000NEGATIVE mg/dLBilirubin UrineNEGATIVENEGATIVEKetones UrineTRACENEGATIVE mg/dLBlood UrineSMALLNEGATIVENitrite UrineNEGATIVENEGATIVEUrobilinogen Urine0.2 0.2-1.0 EU/dLLeukocyte Esterase UrineNEGATIVENEGATIVEUrine Microscopic Indicated YESPerforming Lab:see note - [facility] LBTroponin I High Sensitivity Reviewed date:03/21/2025 08:53:56 PM Interpretation: Performing Lab: Notes/Report: [facility] ,Troponin I High Sensitivity<4.04.0-76.1 pg/mL CUT-OFF POINTS HAVE BEEN ESTABLISHED BASED ON THE FOURTH UNIVERSAL DEFINITION OF MYOCARDIAL INFARCTION. THE UPPER REFERENCE LIMIT (URL) OF TROPONIN, DEFINED THE 99TH PERCENTILE OF cTnI DISTRIBUTION IN A REFERENCE POPULATION, HAS BEEN CONFIRMED THE DECISION THRESHOLD FOR GA DIAGNOSIS. 99TH PERCENTILE = 76.2 PG/ML NOTE: HIGH-SENSITIVITY TROPONIN ASSAY IS NOT INTENDED TO BE USED IN ISOLATION BUT SHOULD BE INTERPRETED IN CONJUNCTION WITH OTHER DIAGNOSTIC AND CLINICAL INFORMATION. Performing Lab:see note - [facility] LBChlamydia/GC Amplification Reviewed date:03/27/2025 08:15:33 AM Interpretation: Performing Lab: Notes/Report: Urine [facility] ,Chlamydia trachomatis, NAANegativeNegativeNeisseria gonorrhoeae, NAANegative Negative Performed at: = - [facility] [address] [id number] Clothespin Machine Operator: Ava Max MD, Phone: [phone] Performing Lab:see note - [facility] LBECG 12 lead Reviewed date:03/27/2025 08:15:33 AM Interpretation: Performing Lab: Notes/Report: Source Facility: [place] [address] Electrocardiograph Report Signed Patient: CHUCK PACKER MR#: [id number] : 1985 Acct:[id number] Age/Sex: 39 / M ADM Date: 03/21/25 Loc: ER Attending Dr: Ordering Physician: Kacie Rodriguez Date of Service: 03/21/25 Procedure(s): ECG 12 lead Accession Number(s): [id number] cc: [facility] Test Date: 2025-03-21 Pat Name: CHUCK PACKER Department: Room: - 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 Measurements Intervals [place] Rate: 109 P: 58 PA: 120 QRS: 14 QRSD: 88 T: -59 [...] Signed By: 03/22/25 0604 DD/ 1739 TD/TT: Manager Transplant:DRUG SCREEN RAPID (URINE) Reviewed date:01/18/2025 10:48:48 AM Interpretation: Performing Lab: Notes/Report: [facility] ,Cannabinoid Screen UrinePOSITIVENEGATIVEPhencyclidine Screen UrineNEGATIVE NEGATIVECocaine [...] 300 ng/mL Performing Lab:see noteML - [facility] LBXR chest 1V Reviewed date:03/21/2025 08:53:56 PM Interpretation: Performing Lab: Notes/Report: Source Facility: [place] [address] [address] XRay Report Signed Patient: CHUCK PACKER MR#: [id number] : 1985 Acct:[id number] Age/Sex: 39 / M ADM Date: Loc: ER Attending Dr: Ordering Physician: Kacie Rodriguez Date of Service: 03/21/25 Procedure(s): XR chest 1V Accession Number(s): [id number] cc: LEIGHANN SORIANO ; Kacie Rodriguez [place] [address] Patient Name: CHUCK PACKER MRN: [id number] date: 1985 Sex: M Assigned Patient Location: ER Current Patient Location: ER Accession/Order Number: [id number] Exam Date: 03/21/2025 18:14 Report Date: 03/21/2025 [...] Chavez M.D. 03/21/2025 6:23 PM Dictation Location: [place] [address] Electronically authenticated by: [id number] Y Date: 03/21/2025 18:23 Dictated By: Jil Chavez D.O. Signed By: 03/21/251824 DD/ 22 TD/TT: Manager Transplant:XR abdomen 1V Reviewed date:04/02/2025 08:41:29 AM Interpretation: Performing Lab: Notes/Report: Source [address] [address] [address] XRay Report Signed Patient: CHUCK PACKER MR#: [id number] : 1985 Acct:[id number] Age/Sex: 39 / M ADM Date: 04/01/25 Loc: ER Attending Dr: Ordering Physician: Leyda Barrientos M.D. Date of Service: 04/01/25 Procedure(s): XR abdomen 1V Accession Number(s): [id number] cc: LEIGHANN SORIANO ; Leyda Barrientos M.D. The [place] [address] Patient Name: CHUCK PACKER MRN: [id number] date: 1985 Sex: M Assigned Patient Location: ER Current Patient Location: ER Accession/Order Number: [id number] Exam Date: 04/01/2025 12:20 Report Date: 04/01/2025 [...] Enamorado M.D. 04/01/2025 12:35 PM Dictation Location: [place] [address] Electronically authenticated by: [id number] Y Date: 04/01/2025 12:35 Dictated By: Antione Enamorado M.D. Signed By: 04/01/25 1238 DD/ 1235 TD/TT: Manager Transplant:SUMMER AUTO DIFF Reviewed date:04/12/2025 09:52:04 AM Interpretation: Performing Lab: Notes/Report: [facility] ,White Blood Count7.14.0-11.0 10 3/uLRed Blood Count5.624.70-6.10 10 6/uL Jklxrlqtxz92.114.0-18.0 g/eONkjnalaqwr30.342.0-54.0 %Mean Corpuscular Yrikrs39.2 80.0-94.0 fLMean Corpuscular Pnzqrwfjcu41.425.9-34.0 pgMean Corpuscular HGB Conc 36.229.9-35.2 g/dLRed Cell Distribution Width12.011.0-15.0 %Platelet Twgxy288 150-450 10 3/uLMean Platelet Volume9.89.5-13.5 fLNeutrophils Percent Auto67.3 43.0-75.0 %Lymphocytes Percent Auto26.920.5-60.0 %Monocytes Percent Auto5.01.7- 12.0 %Eosinophils Percent Auto0.30.9-7.0 %Basophils Percent Auto0.10.2-2.0 % Immature Granulocytes Pct Auto0.40.0-0.5 %Neutrophils Absolute Auto4.81.4-6.5 10 3/uLLymphocytes Absolute Auto1.91.2-3.8 10 3/uLMonocytes Absolute Auto0.40.3-0.8 10 3/uLEosinophils Absolute Auto0.00.0-0.7 10 3/uLBasophils Absolute Auto0.00.0- 0.1 10 3/uLImmature Granulocytes Abs Auto0.030.00-0.03 10 3/uLPerforming Lab:see noteML - [facility] LBPROF CHEM 8 (BAS METB) Reviewed date:04/12/2025 09:52:04 AM Interpretation: Performing Lab: Notes/Report: [facility] ,Kbqqou399972-937 mmol/LPotassium3.83.5-5.1 mmol/GMwomikfn28934-387 mmol/LCarbon Ceheuzr55.921.0-32.0 mmol/LAnion Gap14.3Hrrenku29855-552 mg/dLBlood Urea Kxughlqy30.07.0-18.0 mg/dLCreatinine1.180.70-1.30 mg/dLEstimated GFR ( Anupama>60>=60 mL/min/1.73m 2Estimated GFR (Non- Tia>60>=60 mL/min/1.73m 2BUN Creatinine Ratio9.4Diytuse4.38.5-10.1 mg/dLPerforming Lab:see noteML - [facility] LBUA RANDOM W or MICROSCOPIC Reviewed date:04/12/2025 09:52:04 AM Interpretation: Performing Lab: Notes/Report: [facility] ,Color UrineYELLOWYELLOWClarity UrineCLEARCLEARSpecific [place] Urine1.025 1.005-1.025pH Urine6.05.0-9.0Protein UrineTRACENEG/TRACE mg/dLGlucose Urine UA NEGATIVENEGATIVE mg/dLBilirubin UrineNEGATIVENEGATIVEKetones UrineTRACENEGATIVE mg/dLBlood UrineSMALLNEGATIVENitrite UrineNEGATIVENEGATIVEUrobilinogen Urine0.2 0.2-1.0 EU/dLLeukocyte Esterase UrineTRACENEGATIVEWBC Urine2-5NONE SEEN #/HPFRBC Urine0-20-2 #/HPFBacteria UrineMODERATENONE SEEN #/HPFMucus UrineMODERATENONE SEENSquamous Epithelial Cell UrineRARENONE/RARE #/LPFCrystals Seen?None SeenNone Seen #/HPFCast Seen?SEENNONE SEEN #/LPFHyaline Casts UrineRAREUrine Culture IndicatedYES-FRMCPerforming Lab:see noteML - [facility] LBUrine Culture - [facility] Reviewed date:04/16/2025 08:26:30 AM Interpretation: Performing Lab: Notes/Report: [facility] ,Urine Culture - FRMCSee Below For Report Urine Culture - [facility] SEEFR [facility] RESULT^[facility] RESULT Urine Culture - FRMCSEEN SEE SCANNED REPORT, NORMAL^SEE SCANNED REPORT, NORMAL Urine Culture - [facility] SEEFR [facility] RESULT^[facility] RESULT Performing Lab:see noteML - [facility] LBECG 12 lead Reviewed date:04/12/2025 09:52:04 AM Interpretation: Performing Lab: Notes/Report: Source Facility: [facility] [place] [address] The [place] [id number] Electrocardiograph Report Signed Patient: CHUCK PACKER MR#: [id number] : 1985 Acct:[id number] Age/Sex: 39 / M ADM Date: 04/11/25 Loc: ER Attending Dr: Ordering Physician: Leyda Barrientos M.D. 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 Measurements Intervals [place] Rate: 93 P: 42 PA: 124 QRS: 40 QRSD: 76 T: 49 QT: 318 QTc: 369 Interpretive Statements 1100 Sinus rhythm 4068 Nonspecific Twave abnormality 9130 borderline ECG Compared to ECG 03/21/2025 17:39:38 Sinus tachycardia no longer present ST (T wave) deviation no longer present Electronically Signed On 04-11-2025 14:21:09 EST by JITENDRA FOOTE M.D. Dictated By: JITENDRA FOOTE Signed By: 04/11/25 1421 DD/ 1227 TD/TT: Manager Transplant:XR chest 1V Reviewed date:04/12/2025 09:52:04 AM Interpretation: Performing Lab: Notes/Report: Source Facility: [place] [address] [place] [address] XRay Report Signed Patient: CHUCK PACKER MR#: [id number] : 1985 Acct:[id number] Age/Sex: 39 / M ADM Date: 04/11/25 Loc: ER Attending Dr: Ordering Physician: Leyda Barrientos M.D. Date of Service: 04/11/25 Procedure(s): XR chest 1V Accession Number(s): [id number] cc: LEIGHANN SORIANO ; Leyda Barrientos M.D. The [place] [id number] Patient Name: CHUCK PACKER MRN: [id number] date: 1985 Sex: M Assigned Patient Location: ER Current Patient Location: ED.MAIN Accession/Order Number: [id number] Exam Date: 04/11/2025 12:34 Report Date: 04/11/2025 [...] Luther M.D. 04/11/2025 12:55 PM Dictation Location: [place] [address] Electronically authenticated by: [id number] Y Date: 04/11/2025 12:55 Dictated By: Almaz Luther M.D. Signed By: 04/11/25 1257 DD/ 1255 TD/TT: Manager Transplant:CBC AUTO DIFF Reviewed date:04/17/2025 09:41:27 AM Interpretation: Performing Lab: Notes/Report: [facility] ,White Blood Count5.34.0-11.0 10 3/uLRed Blood Count5.394.70-6.10 10 6/uL Tlmumwglue81.214.0-18.0 g/gTGgjyodwfas19.342.0-54.0 %Mean Corpuscular Gotjeo56.0 80.0-94.0 fLMean Corpuscular Udetqniqtl92.125.9-34.0 pgMean Corpuscular HGB Conc 35.829.9-35.2 g/dLRed Cell Distribution Width12.111.0-15.0 %Platelet Ynizk310 150-450 10 3/uLMean Platelet Volume9.79.5-13.5 fLNeutrophils Percent Auto58.6 43.0-75.0 %Lymphocytes Percent Auto34.420.5-60.0 %Monocytes Percent Auto6.21.7- 12.0 %Eosinophils Percent Auto0.40.9-7.0 %Basophils Percent Auto0.20.2-2.0 % Immature Granulocytes Pct Auto0.20.0-0.5 %Neutrophils Absolute Auto3.11.4-6.5 10 3/uLLymphocytes Absolute Auto1.81.2-3.8 10 3/uLMonocytes Absolute Auto0.30.3-0.8 10 3/uLEosinophils Absolute Auto0.00.0-0.7 10 3/uLBasophils Absolute Auto0.00.0- 0.1 10 3/uLImmature Granulocytes Abs Auto0.010.00-0.03 10 3/uLPerforming Lab:see noteML - [facility] LBPROF CHEM 8 (BAS METB) Reviewed date:04/17/2025 09:41:27 AM Interpretation: Performing Lab: Notes/Report: [facility] ,Voifru835289-904 mmol/LPotassium3.53.5-5.1 mmol/HNngbmlrl11591-084 mmol/LCarbon Xydppkr88.521.0-32.0 mmol/LAnion Gap12.5Lbygvtd45652-051 mg/dLBlood Urea Vpmizzos90.07.0-18.0 mg/dLCreatinine1.120.70-1.30 mg/dLEstimated GFR ( Anupama>60>=60 mL/min/1.73m 2Estimated GFR (Non- Tia>60>=60 mL/min/1.73m 2BUN Creatinine Ratio9.4Ndwmtbd1.28.5-10.1 mg/dLPerforming Lab:see noteML - [facility] LBUA (CLEAN or CATCH) NON DESTRUCTIVE EVALUATION TECHNICIAN or MICRO IF IND. Reviewed date:04/17/2025 09:41:27 AM Interpretation: Performing Lab: Notes/Report: [facility] ,Color UrineLT. YELLOWYELLOWClarity UrineCLEARCLEARSpecific [place] Urine1.010 1.005-1.025pH Urine6.55.0-9.0Protein UrineNEGATIVENEG/TRACE mg/dLGlucose Urine UANEGATIVENEGATIVE mg/dLBilirubin UrineNEGATIVENEGATIVEKetones UrineNEGATIVE NEGATIVE mg/dLBlood UrineTRACE-INEGATIVENitrite UrineNEGATIVENEGATIVE Urobilinogen Urine1.00.2-1.0 EU/dLLeukocyte Esterase UrineTRACENEGATIVEUrine Microscopic IndicatedYESPerforming Lab:see noteML - [facility] LB Troponin I High Sensitivity Reviewed date:04/17/2025 09:41:27 AM Interpretation: Performing Lab: Notes/Report: [facility] ,Troponin I High Sensitivity5.74.0-76.1 pg/mL CUT-OFF POINTS HAVE BEEN ESTABLISHED BASED ON THE FOURTH UNIVERSAL DEFINITION OF MYOCARDIAL INFARCTION. THE UPPER REFERENCE LIMIT (URL) OF TROPONIN, DEFINED THE 99TH PERCENTILE OF cTnI DISTRIBUTION IN A REFERENCE POPULATION, HAS BEEN CONFIRMED THE DECISION THRESHOLD FOR GA DIAGNOSIS. 99TH PERCENTILE = 76.2 PG/ML NOTE: HIGH-SENSITIVITY TROPONIN ASSAY IS NOT INTENDED TO BE USED IN ISOLATION BUT SHOULD BE INTERPRETED IN CONJUNCTION WITH OTHER DIAGNOSTIC AND CLINICAL INFORMATION. 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 Signed By: 04/17/25 1643 DD/ 1804 TD/TT: Manager Transplant:ECG 12 lead Reviewed date:04/23/2025 09:06:27 AM Interpretation: Performing Lab: Notes/Report: Source Facility: [place] [address] [place] [address] Electrocardiograph Report Signed Patient: CHUCK PACKER MR#: [id number] : 1985 Acct:[id number] Age/Sex: 39 / M ADM Date: 04/20/25 Loc: ER Attending Dr: Ordering Physician: Marcela Christensen Date of Service: 04/20/25 Procedure(s): ECG 12 lead Accession Number(s): [id number] cc: [facility] Test Date: 2025-04-20 Pat Name: CHUCK PACKER Department: Room: - Gender: Male Comb 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 Measurements Intervals [place] Rate: 86 P: 50 PA: 132 QRS: 38 QRSD: 82 T: 50 QT: 350 QTc: 393 Interpretive Statements 1100 Sinus rhythm ARTIFACT IN LEAD(S) 9110 normal ECG Compared to ECG 04/16/2025 18:04:48 ST (T wave) deviation no longer present Electronically Signed On 04-20-2025 18:45:14 EST by JITENDRA FOOTE M.D. Dictated By: JITENDRA FOOTE Signed By: 04/20/25 1845 DD/ 1026 TD/TT: Manager Transplant:INFLUENZA A AND B AG Reviewed date:04/23/2025 11:35:55 AM Interpretation: Performing Lab: Notes/Report: [facility] ,Influenza Virus A AntigenNegative Negative for [...] the test. Performing Lab:see noteML - [facility] EPPRFU-UxK-3 Ag* Reviewed date:04/23/2025 11:35:55 AM Interpretation: Performing Lab: Notes/Report: [facility] ,SARS-CoV-2 AgNEGATIVENEGATIVE This test has not [...] revoked sooner. Performing Lab:see noteML - [facility] LB Reason For Referral No Information [...] Once a day; Duration: 30 dayscall for ttmcei875ActiveTriamcinolone Acetonide 0.1 %1 application Externally Two times a Week12/10/2023ctiveCVS Glucose Meter Test Strips -as directed In Vitro daily; Duration: 30 days 5ActivePantoprazole Sodium 40 MG1 tablet Orally Once a day; Duration: 30 day(s)4ActivetraZODone HCl 50 MG1 tablet at bedtime as needed Orally Once a day; Duration: 30 days5ActiveMupirocin 2 %1 application Externally Twice a day; Duration: 5 days12/10/2023ctiveOndansetron HCl 4 MG1 tablet Orally BID prn; [...] alcohol in the p ast year? No Pppdyi7UvtydoxlktxjknKxtfcljoWHTGP-M (Standard) Question Answer Notes Did you have a drink containing alcohol in the p ast year? No Toskom0UsejokmbynidibKkzndfda Problems Problem Type SNOMED Code ICD Code Onset Dates Problem Status W/U Status Risk Notes Problem Overweight (955348144) Overweight (E66.3) ActiveconfirmedProblemGeneralized anxiety disorder (75295730)Generalized anxiety disorder (F41.1)ActiveconfirmedProblemDepression (921780704)Depression (F32.9) ActiveconfirmedProblemErectile dysfunction (237054285)Erectile dysfunction (N52.9)ActiveconfirmedProblemGastroesophageal reflux disease (877095658)GERD without esophagitis (K21.9)ActiveconfirmedProblemMigraine (71498919)Migraine (G43.909)ActiveconfirmedProblemType 2 diabetes mellitus (20894669)Type 2 diabetes mellitus (E11.9)ActiveconfirmedProblemBronchitis (45536578)Bronchitis (J40)ActiveconfirmedProblemRash (205110511)Rash (R21)ActiveconfirmedProblemUpper respiratory infection (07638116)Upper respiratory infection (J06.9)Active confirmedProblemShingles (4589909)Shingles (B02.9)ActiveconfirmedProblem Hemorrhoids (80088246)Hemorrhoids (K64.9)ActiveconfirmedProblemCurrent smoker (97778491)Current smoker (F17.200)ActiveconfirmedProblemAbdominal discomfort (75370830)Abdominal discomfort (R10.9)ActiveconfirmedProblemPanic attack (053718903)Panic attack (F41.0)ActiveconfirmedProblemBright red blood per rectum (746527792)Bright red blood per rectum (K62.5)ActiveconfirmedProblemAnal fissure (52777332)Rectal fissure (K60.2)ActiveconfirmedProblemPain in limb (41283552) Heel pain, right (M79.671)ActiveconfirmedProblemInsomnia (452568514)Insomnia disorder (G47.00)ActiveconfirmedProblemIrritable bowel syndrome (73614146) Irritable bowel syndrome (IBS) (K58.9)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)Dsgrn-Nticcgfsu-Vgcca (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)Active confirmedProblemMixed anxiety and depressive disorder (209202207)Anxiety and depression (F41.8)ActiveconfirmedProblemMenopause (569538264)Insomnia associated with menopause (N95.1)Activeconfirmed Vital Signs Heart Rate 109 /min 06/15/2024 Ddonkgcjrah44.4 degrees Eookyzcduh20/04/0911Plglhmnb42 %06/15/2024lood pressure qvqyklnoe41 mm Hg04/20/20250348Rusgjt49 in04/20/2025lood pressure mm Hg 04/20/20251975Dxatxv049.8 lbs106/21/2024BMI35.15 kg/m204/20/2025 Encounters Encounter Location Date Provider Diagnosis [facility] [address] [place] [address] 05/26/2024 Leighann Soriano Insomnia disorder G4 7.00 ; Rash and other nonspecific skin eruption R21 and Depression F32.9 [place] [address] [place] [address] 06/15/2024 Leighann Soriano Gastroenteritis K52. [address] [address] 07/14/2024 Leighann Soriano Body aches R52 ; Gastroenteritis K52.9 and Vomiting R11.[address] [address] 04/20/2025 Leighann Soriano Panic attack F41.0 a nd Anxiety and depression F41.[address] [address] 04/03/2025 Leighann Soriano Type 2 diabetes hector itus E11.9 and Anxiety and depression F41.[address] [place] [address] 06/08/2024 Martínez Hoy Cough R05.9 and Acut e bronchitis, unspecified organism J20.9 [place] [address] [place] [address] 07/17/2024 Leighann Soriano Bronchitis J40 [address] [address] 07/20/2024 Martínez Hoy Gastroenteritis K52. [address] [address] 08/04/2024 Martínez Hoy Acute non-recurrent sinusitis, unspecified location J01.90 and Nasal congestion R09.[address] [place] [address] 04/17/2025 Leighann Soriano [place] [address] [place] [address] 04/17/2025[place] [address] [facility] [address]/[facility] [address] [facility] [place] [address]/[facility] [address] [place], [place] [address]/01/2025[facility] Assessments Encounter Date Diagnosis (ICD Code) Assessment [...] - R52)07/17/2024ronchitis (ICD-10 - J40)fu if not mixehcnri45/20/2025Gastroenteritis (ICD-10 - K52.9)Get plenty of rest. Stay hydrated by sucking on ice chips or taking small sips of water. You can also try drinking clear soda, clear broths or noncaffeinated sports drinks. Stop eating solid foods for a few hours to let your stomach settle. East back into eating by eating bland, yqjm-ez-jnbvxl foods like crackers, toast, gelatin, bananas, rice and chicken. Try to avoid foods/substances including dairy products, caffeine, alcohol, nicotine and fatty or highly seasoned foods. Medications such as i buprofen or tylenol can make your stomach more upset, so use sparingly if at all. Also avoid llom-waj-odyphuc anti-diarrheal medications because it can make it harder for your body to eliminate the virus.5Acute non-recurrent sinusitis, unspecified location (ICD-10 - J01.90)Rest and drink more liquids, especially water. You may use a humidifier or vaporizer to help keep the drainage moist. Ybos-pch-cscdrbc Nasal Saline may help the stuffy and runny nose. Use Ibuprofen and or Tylenol as needed for fever, chills, body aches or pain. Children 5 years old should not be given esyw-xpg-egprgdq cough and cold medications such as guaifenesin and dextromethorphan. If you're over age 5, you may try ysyg-jol-hrjkybx cold medications such as guaifenesin and dextromethorphan, [...] below 65 consecutively. Reviewed with patient the ocean transportation intermediary effects of Diabetes Mellitus on the body [...] F41.8) restart fluoxetine continue with counseling fu 04/20/2025Panic attack (ICD-10 - F41.0) one time script for prn ativan OARRS reviewed CSA signed 5Cough (ICD-10 - R05.9)06/15/2024Gastroenteritis (ICD-10 - K52.9) push fluids, electrolytes ok for OWN 07/14/2024Vomiting (ICD-10 - R11.10)04/20/2025nxiety and depression (ICD-10 - F41.8) trial of adding gabapentin for anxiety CSA signed, states no transportation last drug screen we requested increase prozac dosing states working on insurance, psych apt 08/04/2024Nasal congestion (ICD-10 - R09.81)5Acute bronchitis, unspecified organism (ICD-10 - J20.9)Rest and drink more liquids, especially water. You may use a humidifier or vaporizer to help keep the drainage moist. Vtpw-rbu-tlppepl Nasal Saline may help the stuffy and runny nose. Use Ibuprofen and or Tylenol as needed for fever, chills, body aches or pain. Children 5 years old should not be given atfu-sfz-jqepynu cough and cold medications such as guaifenesin and dextromethorphan. If you're over age 5, you may try tpfi-ujp-wrbvtkj cold medications such as guaifenesin and dextromethorphan, [...] chest pain you should go to the [facility] room or call [phone] (ICD-10 - F32.9) psych referral sheet given needs to re establish with psych will review meds with Dr Donato Plan Of Treatment Pending Test Test Name Order Date COVID-19, Flu A+B IH 07/14/2024 Next Appt Details Provider Name:Leighann doss, 05/04/2025 09:30:00 AM, [address] [facility], [place], [address], Medical (General) History Medical History History ICD Code Bronchitis J40 Heel pain, right M79.671 Hemorrhoids K64.9 Upper respiratory infection J06.9 Depression F32.9 Rash R21 Shingles B02.9 Migraine G43.909 Gastro-esophageal reflux disease K21.9 Bright red blood per rectum K62.5 Irritable bowel syndrome (IBS) K58.9 Panic attack F41.0 Btjrq-Zdvewotux-Qkybh (WPW) syndrome I45 .6 Overweight E66.3 Abdominal discomfort R10.9 Generalized anxiety disorder F41.1 Current smoker F17.200
== END 2025-04-24 19:49 | disposition left against medical advice (07) ==
PROVIDERS: Emergency Provider Emergency Medicine; PCP Nurse Practitioner Family
DX: Z53.21 Procedure and treatment not carried out due to patient leaving prior to being seen by health care provider (principal)
CPT/HCPCS: 99281

== ENCOUNTER 2025-04-28 22:32 | Emergency (ER) | payer SELFPAY ==
--- OUTSIDE RECORDS SUMMARY | 2024-08-08 08:30 | XMS_ITS ---
Author Organization The [facility] in [place] Address [address] [place] [address] Care Team Providers Care Senior Gis Analyst Name Role Phone Leighann Mahoney Primary Care Provider [phone] REASON FOR VISIT STILL SICK Encounters Encounter Location Date Provider Diagnosis [facility] [address] [place] [address] 08/08/2024 Leighann Mahoney Plan Of Treatment Next Appt Details Provider Name:Leighann doss, 05/04/2025 09:30:00 AM, [address] [place], [address], Progress Notes * Genesis PACKEROB:1985 (39 yo M)Acc No.[id number]:08/08/2024 UNLOCKED PROGRESS NOTE Progress Note Patient: Tristin CARL :?Leighann Mahoney ([facility]), CNPDOB:1985 ???Age:38 Y???Sex:MaleDate:08/08/2024Phone:[phone]:[address] [place], [place] Subjective: * Chief Complaints: * 1 . STILL SICK. * Medical History: Objective: * Vitals: Assessment: Plan: * Treatment: * * Electronic signature of Leighann Mahoney NP, IN STORE DEMONSTRATOR.WAREHOUSE ORDER FILLER.[id number] on 04/28/2025 at 11:38 PM ESTSign off status: PendingVisit Status:?OFF CANC (OFFICE CANCEL) * Provider: Phan Mahoney ([facility]), WAREHOUSE ORDER FILLER Date: 0 08/08/2024 Generated for Printing/Faxing/eTransmitting on:?04/28/2025 11:38 PM EST
--- OUTSIDE RECORDS SUMMARY | 2025-04-17 03:44 | XMS_ITS ---
Author Organization The [facility] in [place] Address [address] [place] [address] Care Team Providers Care Rubber Flap Tuber Machine Operator Name Role Phone Leighann Mahoney Primary Care Provider [phone] Encounters Encounter Location Date Provider Diagnosis [facility] [address] [place] [address] 04/17/2025 Leighann Mahoney Plan Of Treatment Next Appt Details Provider Name:Leighann doss, 05/04/2025 09:30:00 AM, [address] [place], [address], Progress Notes * Genesis PCAKEROB:1985 (39 yo M)Acc No.[id number]:04/17/2025 Patient:?Tristin PACKER :1985???Age:39 Y???Sex:MalePhone:[phone] Address:[address] [place] [address] Subjective: * Chief Complaints: * * Medical History: * Surgical History: * Hospitalization/Major Diagno stic Procedure: * Medications: Objective: * Vitals: * Physical Examination: ??? Assessment: Plan: * Treatment: * Procedure Codes: * true * Date:?Generated for Printing/Faxing/eTransmitting on:?04/28/2025 11:37 PM EST
--- OUTSIDE RECORDS SUMMARY | 2025-04-20 08:00 | XMS_ITS ---
Author Organization [facility] [place] Address [address] [place] [address] Care Team Providers Care Electric Car Operator Name Role Phone Leighann Mahoney Primary Care Provider Allergies Allergen (clinical drug ingredient) Drug/Non Drug Allergy documented on EMR Reaction Allergy Type Onset Date Status erythromycin Erythromycin Base hives Drug Allergy Activepenicillin VPenicillin V PotassiumhivesDrug AllergyActive REASON FOR VISIT SELF PAY med adjustment, Wants his Prozac increased, Also said that he had a really bad panic attack this AM- was taken by squad to [facility]- they gave him Ativan- also said a week ago he had the same thing happen, FBS have been running between 130- 165, sometimes if eating the wrong thing then is shooting it up to 200s Medications Medication SIG (Take, Route, Frequency, Duration) Notes Start Date End Date Status FLUoxetine HCl 20 MG as directed Orally Once a day; Duration: 30 days take 2 capsules po daily for next 7 days than increase dose to 3 capsules po daily 04/03/2025 ActiveVentolin HFA 108 (90 Base) MCG/ACTINHALE 1 TO 2 PUFFS EVERY 4 HOURS NEEDED; Duration: 17ActiveGabapentin 300 MG1 capsule Orally Once a day; Duration: 30 dayscall for gjaama205ActiveTriamcinolone Acetonide 0.1 %1 application Externally Two times a Week4ActivePantoprazole Sodium 40 MG 1 tablet Orally Once a day; Duration: 30 day(s)4ActivetraZODone HCl 50 MG1 tablet at bedtime as needed Orally Once a day; Duration: 30 days05/26/2024 ActiveMupirocin 2 %1 application Externally Twice a day; Duration: 5 days 12/10/2023ctiveOndansetron HCl 4 MG1 tablet Orally BID prn; Duration: 7 days 06/15/2024tiveHyoscyamine Sulfate 0.125 MG1-2 tabs SL SL every 4 hrs PRN abd pain07/20/2024tivemetFORMIN HCl 500 MG1 tablet with a meal Orally Once a day; Duration: 30 daysActiveHydrocortisone 1 %1 application Externally Once a day 12/10/2023ctiveDivalproex Sodium 250 MGTAKE 1 TABLET BY MOUTH IN THE MORNING AND 2 TABLETS IN THE EVENING; Duration: 30 daysActiveCVS Glucose Meter Test Strips -as directed In Vitro daily; Duration: 30 days04/03/2025tiveLORazepam 0.5 MG1 tablet as needed for panic Orally Once a day; Duration: 30 days 04/20/2025tive Social History Tobacco Use: Social History Observation Description Date Details (start date - stop date) Current Smoker NA - NA Tobacco Use/Smoking Question Answer Notes Patient is a current smoker How often do you smoke cigarettes?every dayHow many cigarettes a day do you smoke?03-22 Vital Signs Weight 273.8 lbs 04/20/2025 Height 74 in 04/20/2025 Blood pressure systolic 132 mm Hg 04/20/20 25 Blood pressure diastolic 88 mm Hg 025 BMI 35.15 kg/m2 04/20/2025 Encounters Encounter Location Date Provider Diagnosis [address] [address] 04/20/2025 Leighann Mahoney Panic attack F41.0 and Anxiety and depression F41.8 Assessments Encounter Date Diagnosis (ICD Code) Assessment Notes Treatment Notes Treatment Clinical Notes Section Notes 04/20/2025 Panic attack (ICD-10 - F41.0) one time script for prn ativan OARRS reviewed CSA signed 04/20/2025nxiety and depression (ICD-10 - F41.8) trial of adding gabapentin for anxiety CSA signed, states no transportation last drug screen we requested increase prozac dosing states working on insurance, psych apt Plan Of Treatment Medication Medication Name Sig Start Date Stop Date Notes FLUoxetine HCl 20 MG as directed Orally Once a d ay; Duration: 30 days 04/03/2025 take 2 capsules po daily for next 7 days than increase dose to 3 capsules po dailyGabapentin 300 MG1 capsule Orally Once a day; Duration: 30 days04/20/2025 call for refillLORazepam 0.5 MG1 tablet as needed for panic Orally Once a day; Duration: 30 days04/20/2025Treatment Notes Assessment Notes Panic attack one time script for prn ativan OARRS reviewed CSA signed Anxiety and depression trial of adding gabapentin for anxiety CSA signed, states no transportation last drug screen we requested increase prozac dosing states working on insurance, psych apt Next Appt Details Follow Up: 4 Weeks,prn, Reas on: Provider Name:Leighann doss, 05/04/2025 09:30:00 AM, [address] [facility], [address], [place], [address], Progress Notes * Genesis PACKEROB:1985 (39 yo M)Acc No.[id number]:04/20/2025 Progress Note Patient: Tristin CARL :?Leighann Mahoney ([facility]), CNPDOB:1985 ???Age:39 Y???Sex:MaleDate:04/20/2025Phone:[phone]:[address], [place], [id number] In:01:00 PM ESTCheck Out:01:25 PM EST Subjective: * Chief Complaints: * 1 . SELF PAY med adjustment. 2. Wants his Prozac increased. 3. Also said that he had a really bad panic attack this AM- was taken by squad to [facility]- they gave him Ativan- also said a week ago he had the same thing happen. 4. FBS have been running between 130- 165, sometimes if eating the wrong thing then is shooting it up to 200s. * HPI: ???General:? will repeat A1c in 3m anxiety bad and has called squad 2 x for panic attacks recently CPS issues with children wants fluoxetine increased. * ROS: ???General/Constitutional:?Anxiety?admits and frequent panic attacks lately.?Feve r?denies.?Headache?denies.?Weight loss?denies.?Ophthalmologic:?Discharge?denies.?Eye Pain?denies.?Itching and redness?denies.?ENT:?Nasal discharge?denies.?Nasal congestion?denies. Sore throat?denies.?Cardiovascular:?Chest tightness/ heavy pressure?denies.?Rapid heart rate?denies.?Swelling of extremities?denies.?Chest pain?denies.?Respiratory:?Productive cough?denies.?Chest pain?denies.?Cough?denies.?Shortness of breath?denies.?Wheezing?denies.?Gastrointestinal:?Abdominal pain?denies.?Constipation?denies.?Decreased appetite?denies.?Diarrhea?denies.?Nausea?denies.?Vomiting denies.?Genitourinary:?Urinary incontinence?denies.?Painful urination?denies.?Musculoskeletal:?Back pain?denies.?Neck pain?denies.?Muscle aches?denies.?Skin:?Rash?denies.?Skin lesion(s)?denies.? * Active Problem List G43.909 Migraine Modified On:08/11/2022 Status:jlsmvyazpJ70Rqewsvxmbu Modified On:08/11/2022 Status:qnsecepjxL25Bdiq Modified On:08/11/2022 Status:qfsqjgnftJ31.9Upper respiratory infection Modified On:08/11/2022 Status:yodowebcxW79.9Shingles Modified On:08/11/2022 Status:ugixwumuxD50.9Hemorrhoids Modified On:08/11/2022 Status:guecmpcwvC17.200Current smoker Modified On:08/11/2022 Status:whqpeciylD43.9Abdominal discomfort Modified On:08/11/2022 Status:uhujomzyhH76.0Panic attack Modified On:08/11/2022 Status:pajcfoxfiF01.5Bright red blood per rectum Modified On:08/11/2022 Status:dsrvxfhrnJ07.3Overweight Modified On:08/11/2022 Status:hehivanvtU07.1Generalized anxiety disorder Modified On:08/11/2022 Status:pfnqnhwqtG65.9Depression Modified On:07/27/2023 Status:ewbcpuxvsM04.671Heel pain, right Modified On:08/11/2022 Status:urufqqvdmG14.9Irritable bowel syndrome (IBS) Modified On:08/11/2022 Status:ayfoansovK47.9Kphqd-Ibencyolv-Fjfqh (WPW) syndrome Modified On:08/11/2022 Status:afipzjkjdO04.9Erectile dysfunction Modified On:07/27/2023 Status:plzyusojbZ27.2Rectal fissure Modified On:12/07/2023 Status:eezzbjgkjR88.9GERD without esophagitis Modified On:12/07/2023 Status:yzqfwvczhK18.00Insomnia disorder Modified On:05/26/2024 Status:gdmyxepdzJ28.1Insomnia associated with menopause Modified On:05/26/2024 Status:quazhcifcW58.9Type 2 diabetes mellitus Modified On:03/27/2025 Status:vitvrekvdW99.8Anxiety and depression Modified On:04/03/2025 Status:confirmed * Medical History: B ronchitis, Heel pain, right, Hemorrhoids, Upper respiratory infection, Depression, Rash, Shingles, Migraine, Gastro-esophageal reflux disease, Bright red blood per rectum, Irritable bowel syndrome (IBS), Panic attack, Zafrh-Ivjfirbey-Kxlwp (WPW) syndrome, Overweight, Abdominal discomfort, Generalized anxiety disorder, Current smoker. * Surgical History: D enies Past Surgical History. * Hospitalization/Major Diagno stic Procedure: D enies Past Hospitalization. * Family History: F ather: unknown. M other: , diagnosed with Kidney Stone, Cancer, Diabetes, Hypertension. B rother(s): unknown. S ister(s): unknown. 2 son(s) - healthy. . * Social History: ???Tobacco Use:?Tobacco Use/Smoking?Patient is a?current smoker ?How often do you smoke cigarettes??every day ?How many cigarettes a day do you smoke??11-20 * Medications: T aking [employer] Glucose Meter Test Strips(Glucose Blood) - Strip as directed In Vitro daily , Taking Divalproex Sodium 250 MG Tablet Delayed Release TAKE 1 TABLET BY MOUTH IN THE MORNING AND 2 TABLETS IN THE EVENING , Taking FLUoxetine HCl 20 MG Capsule 1 capsule Orally Once a day , Taking Hydrocortisone 1 % Cream 1 application Externally Once a day , Taking Hyoscyamine Sulfate 0.125 MG Tablet Sublingual 1-2 tabs SL SL every 4 hrs PRN abd pain , Taking metFORMIN HCl 500 MG Tablet 1 tablet with a meal Orally Once a day , Taking Mupirocin 2 % Ointment 1 application Externally Twice a day , Taking Ondansetron HCl 4 MG Tablet 1 tablet Orally BID prn , Taking Pantoprazole Sodium 40 MG Tablet Delayed Release 1 tablet Orally Once a day , Taking traZODone HCl 50 MG Tablet 1 tablet at bedtime as needed Orally Once a day , Taking Triamcinolone Acetonide 0.1 % Cream 1 application Externally Two times a Week , Taking Ventolin HFA(Albuterol Sulfate HFA) 108 (90 Base) MCG/ACT Aerosol Solution INHALE 1 TO 2 PUFFS EVERY 4 HOURS NEEDED , Discontinued Benzonatate 200 MG Capsule 1 capsule as needed Orally Three times a day , Discontinued FLUoxetine HCl 20 MG Capsule TAKE 3 CAPSULES BY MOUTH ONCE A DAY , Discontinued hydrOXYzine HCl 50 MG Tablet TAKE 1 TABLET IN THE AM AND 1 IN THE PM NEEDED , Discontinued OLANZapine 15 MG Tablet 1 tablet Orally Once a day , Medication List reviewed and reconciled with the patient * Allergies: P enicillin V Potassium: hives - Allergy - Criticality High, Erythromycin Base: hives - Allergy - Criticality High. Objective: * Vitals: W t:273.8lbs, Ht: 74 in, BP:132/88mm Hg, BMI:35.15Index, Ht-cm: 187.96 cm, Wt-k.19 kg. * Examination: ???General Examinations: ?GENERAL APPEARANCE:?alert and oriented,?in no acute distress.?EYES:?conjunctiva normal, sclera non-icteric.?LUNGS:?clear to auscultation bilaterally.?CARDIO:?regular rate and rhythm, S1, S2 normal.?MUSCULOSKELETAL:?Gait and station normal.?SKIN:?warm and dry.? Assessment: * Assessment: 1.?Panic attack - F41.0 (Primary)???2.?Anxiety and depression - F41.8??? Plan: * Treatment: Start LORazepam Tablet, 0.5 MG, 1 tablet as needed for panic, Orally, Once a day, 30 days, 5, Refills 0.?? Notes: one time script for prn ativan OARRS reviewed CSA signed??2.?Anxiety and depression? Refill FLUoxetine HCl Capsule, 20 MG, as directed, Orally, Once a day, 30 days, 90, Refills 3, Notes to Pharmacist: take 2 capsules po daily for next 7 days than increase dose to 3 capsules po daily; Start Gabapentin Capsule, 300 MG, 1 capsule, Orally, Once a day, 30 days, 30 Capsule, Refills 0, Notes to Pharmacist: call for refill.?? Notes: trial of adding gabapentin for anxiety CSA signed, states no transportation last drug screen we requested increase prozac dosing states working on insurance, psych apt?? * Preventive Medicine: ??Screenings/Counseling:?BMI ACTION PLAN?Above Normal BMI Follow-up?Dietary management education, guidance, and counseling * Follow Up: 4 Weeks,prn * * Electronically signed by Leighann Mahoney NP, CARDIAC NURSE.MEDICAL RECORDS CLERK.[id number] on 04/23/2025 at 12:51 PM ESTSign off status: CompletedVisit Status:?CHK (Check Out) true * Provider: Phan Mahoney (GEORGE), MEDICAL RECORDS CLERK Date: 1 06/21/2024 Generated for Printing/Faxing/eTransmitting on:?04/28/2025 11:36 PM EST History and Physical Notes * HPI (History of Present Illness) CategorySub-CategoryDetailNotesCategory NotesGeneral will repeat A1c in 3m anxiety bad and has called squad 2 x for panic attacks recently CPS issues with children wants fluoxetine increased Examination CategorySub-CategoryDetailNotesCategory NotesGeneral ExaminationsGENERAL APPEARANCE:alert and oriented, in no acute distressEYES:conjunctiva normal, sclera non-ictericEARS:NOSE:THROAT:CARDIO:regular rate and rhythm, S1, S2 normal LUNGS:clear to auscultation bilaterallyABDOMEN:SKIN:warm and dryBACK: MUSCULOSKELETAL:Gait and station normalLYMPH NODES:
[2025-04-28 22:38] VITALS: BP 158/89; O2SAT 99
[2025-04-28 22:39] VITALS: BP 158/89; PULSE 96; TEMP 36.6; O2SAT 99; BMI 33.7
[2025-04-28 22:43] VITALS: BP 153/92; PULSE 96; O2SAT 99
[2025-04-28 23:00] VITALS: BP 135/83; PULSE 85; O2SAT 98
--- NOTE | 2025-04-28 23:11 | XR_ITS ---
[address] [address] Patient Name: CHUCK PACKER MRN: [id number] date: 1985 Sex: M Assigned Patient Location: ER Current Patient Location: Accession/Order Number: [id number] Exam Date: 04/28/2025 23:26 Report Date: 04/29/2025 16:18 At the request of: ANJANA HORTON Procedure: XR acute abdomen series Acute abdominal series compared to prior examination 04/11/2025 HISTORY: Acute right-sided chest and abdominal pain for one day No acute chest findings. No subdiaphragmatic free intraperitoneal air. No gaseous intestinal distention. Cholecystectomy. Mild stool throughout the colon. No significant abdominal pelvic calcification. Bony structures intact. XR/XR acute abdomen series IMPRESSION: No acute chest findings. Nonspecific abdomen. Impression dictated by: Ashok Chavez M.D. 04/29/2025 4:18 PM Dictation Location: [place] [address] Electronically authenticated by: [id number] Y Date: 04/29/2025 16:18
--- NOTE | 2025-04-28 23:20 | ECG_ITS ---
[facility] Test Date: 2025-04-28 Pat Name: CHUCK PACKER Department: Room: - Gender: Male [employer]: : 1985 Requested By: Giorgio Hernandez Order Number: [id number] Reading MD: JITENDRA FOOTE M.D. Measurements Intervals [place] Rate: 96 P: 54 TN: 116 QRS: 48 QRSD: 76 T: 28 QT: 328 QTc: 382 Interpretive Statements 1100 Sinus rhythm 2210 Short TN interval 4068 Nonspecific [place] abnormality 9150 abnormal ECG Compared to ECG 04/20/2025 10:26:41 Short TN interval now present Electronically Signed On 04-29-2025 13:30:07 EST by JITENDRA FOOTE M.D.
[2025-04-28] MEDS: KETOROLAC TROMETHAMINE 60 MG/2 ML VIAL IM (23:23)
--- OUTSIDE RECORDS SUMMARY | 2025-04-28 23:36 | XMS_ITS | CCD ---
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 [place] [address] PATHOLOGIST SHACKLER JODY DAN M.D.Performed By: #### CUBLD #### [place] [address] USALeukocyte esterase [Presence] in Urine by Test strip Ordered By: Herminio Davila on 97-94-2463Yhqutdxri esterase Test strip Ql (U) NegativeNormalNegativeGreene Memorial HospitalComment on above:Order Comment: Name Collection Type:: VoidedPerformed By: #### CUBLD #### [place] [address] USALeukocytes [#/area] in Urine sediment by Automated count Ordered By: Herminio Davila on 23-01-8023TVF Auto (Urine sed) [#/Area]3-4 [HPF]0-4 [facility] HospitalLeukocytes [#/volume] corrected for nucleated erythrocytes in Blood by Automated counOrdered By: Herminio Davila on 02-04-2025 WBC corrected for nucl RBC Auto (Bld) [#/Vol]8.9 10*3/uL4.1-10.5FTrumbull Memorial HospitalLeukocytes [#/volume] in Blood by Automated countOrdered By: Herminio Davila on 26-68-0435HYM (Bld) [#/Vol]8.9 10*3/uLNormal4.1-10.5 [facility] HospitalComment on above:Performed By: #### CBC, PT, PTT, CMP, CK, HS TROP #### [facility] [address] [place] [address] USALymphocytes [#/volume] in Blood by Automated countOrdered By: Herminio Davila on 91-15-1133Buppvkxqmkd (Bld) [#/Vol]3.8 10*3/uLNormal 1.00-4.8[facility] HospitalComment on above:Performed By: #### CBC, PT, PTT, CMP, CK, HS TROP #### [facility] [address] [place] [address] USALymphocytes/100 leukocytes in Blood by Automated count Ordered By: Herminio Davila on 83-24-8755Boeqwpbbtfn/100 WBC (Bld)42.6 %Normal. [facility] HospitalComment on above:Performed By: #### CBC, PT, PTT, CMP, CK, HS TROP #### [address] [Entitic mass] by Automated countOrdered By: Herminio Davila on 18-39-9623ESQ (RBC) [Entitic mass]30.8 awWdytdy09.5-35.2FTrumbull Memorial HospitalComment on above:Performed By: #### CBC, PT, PTT, CMP, CK, HS TROP #### [address] Auto (RBC) [Mass/Vol]Ordered By: Herminio Davila on 70-30-5529FJCA (RBC) [Mass/Vol]36.1 g/aGKaed70.5-35.6FTrumbull Memorial HospitalMCV [Entitic volume] by Automated countOrdered By: Herminio Davila on 48-87-7283EUS (RBC) [Entitic vol]85.3 cACexmwm50.5-101[facility] HospitalComment on above:Performed By: #### CBC, PT, PTT, CMP, CK, HS TROP #### [place] [address] USAMonocyte distribution width [Entitic volume] in Blood by AutomatedOrdered By: Herminio Davila on 55-46-4234Yeazxsdk distribution width Auto (Bld) [Entitic vol]18.83 %0.00-20.00[facility] HospitalMonocytes [#/volume] in Blood by Automated countOrdered By: Herminio Davila on 02-04-2025 Monocytes (Bld) [#/Vol]0.5 10*3/uLNormal0.0-0.8[facility] Comment on above:Performed By: #### CBC, PT, PTT, CMP, CK, HS TROP #### [facility] [address] [place] [address] USAMonocytes/100 leukocytes in Blood by Automated count Ordered By: Herminio Davila on 02-95-1651Fykopbwea/100 WBC (Bld)5.5 %Normal. [facility] HospitalComment on above:Performed By: #### CBC, PT, PTT, CMP, CK, HS TROP #### [facility] [address] [place] [address] USAMucus [Presence] in Urine by AutomatedOrdered By: Herminio Davila on 09-99-3001Snlpk Auto Ql (U)Rare [LPF][facility] HospitalNeutrophils [#/volume] in Blood by Automated countOrdered By: Herminio Davila on 64-02-5252Vyjzxxllwmu (Bld) [#/Vol]4.5 10*3/uLNormal1.8-7.7FTrumbull Memorial HospitalComment on above:Performed By: #### CBC, PT, PTT, CMP, CK, HS TROP #### [facility] [address] [place] [id number] USANeutrophils/100 leukocytes in Blood by Automated count Ordered By: Herminio Davila on 09-55-5218Blntpmcezjl/100 WBC (Bld)50.4 %Normal. [facility] HospitalComment on above:Performed By: #### CBC, PT, PTT, CMP, CK, HS TROP #### [facility] [address] [place] [address] USANitrite Test strip Ql (U)Ordered By: Herminio Davila on 82-73-5471Qlmtrtm Ql (U)NegativeNegativeGreene Memorial HospitalNo Panel InformationOrdered By: Herminio Davila on 07-58-5282Vzrnnfbs Creatinine Clearance (Umnf937.66[facility] HospitalNucleated erythrocytes [Presence] in Blood by Automated countOrdered By: Herminio Davila on 02-04-2025 Nucleated RBC Auto Ql (Bld)0.1 /100{WBC}0-0.5FTrumbull Memorial Hospital Partial Thromboplastin Timeon 34-55-5778tBOK Coag (Bld) [Time]27.9 sNormal 25.1-36.5The [facility] Physician GroupComment on above:Result Comment: A hematocrit value greater than 55% may lead to inaccurate results in coagulation testing. Patients having hematocrit values >55% require a special collection tube for coagulation studies. Please contact the laboratory at [phone] for redraw instructions. PERFORMED BY: [place] [address] PATHOLOGIST SHACKLER JODY DAN M.D.Performed By: #### CBC, PT, PTT, CMP, CK, HS TROP #### [facility] [address] [place] [address] USAPlatelet mean volume [Entitic volume] in Blood by Automated countOrdered By: Herminio Davila on 07-41-7707Wrsocvjx mean volume (Bld) [Entitic vol]8.1 fLNormal6.6-10.1FTrumbull Memorial HospitalComment on above:Performed By: #### CBC, PT, PTT, CMP, CK, HS TROP #### [facility] [address] [place] [address] USAPlatelets [#/volume] in Blood by Automated countOrdered By: Herminio Davila on 25-08-7309Ncawjzrgy (Bld) [#/Vol]223 10*3/uZQrlzxp788-845 [facility] HospitalComment on above:Performed By: #### CBC, PT, PTT, CMP, CK, HS TROP #### [facility] [address] [place] [address] USAPotassium [Moles/volume] in Serum or PlasmaOrdered By: Herminio Davila on 92-81-4257Bamuscuht [Moles/Vol]3.7 mmol/LNormal3.5-5.1FTrumbull Memorial HospitalComment on above:Performed By: #### CBC, PT, PTT, CMP, CK, HS TROP #### [facility] [address] [place] [address] USAProtein Test strip (U) [Mass/Vol]Ordered By: Herminio Davila on 12-62-3321Bfqrrmh (U) [Mass/Vol]NegativeNegativeGreene Memorial HospitalProtein [Mass/volume] in Serum or PlasmaOrdered By: Herminio Davila on 01-79-4835Zntwjcw [Mass/Vol]7.7 g/dLNormal6.4-8.9[facility] HospitalComment on above:Performed By: #### CBC, PT, PTT, CMP, CK, HS TROP #### [facility] [address] [place] [address] USAProthrombin time (PT)Ordered By: Herminio Davila on 95-29-8400HD Coag (PPP) [Time]11.5 sNormal9.0-12.9[facility] HospitalComment on above:A hematocrit value greater than 55% may lead to inaccurate results in coagulation testing. Patientshaving hematocrit values >55% require a special collection tube for coagulation studies. Please contact the laboratory at [phone] for redraw instructions.Result Comment: A hematocrit value greater than 55% may lead to inaccurate results in coagulation testing. Patients having hematocrit values >55% require a special collection tube for coagulation studies. Please contact the laboratory at [phone] for redraw instructions.Performed By: #### CBC, PT, PTT, CMP, CK, HS TROP #### [facility] [address] [place] [address] USASerum globulin measurement by calculation (mass/volume) Ordered By: Herminio Davila on 47-28-6218Qyqlpznw (S) [Mass/Vol]3.6 g/dLNormal [facility] HospitalComment on above:Performed By: #### CBC, PT, PTT, CMP, CK, HS TROP #### [place] [address] USASerum or plasma albumin/globulin mass ratioOrdered By: Herminio Davila on 65-71-7702Bpegsjw/Globulin [Mass ratio]1.1 {ratio}Normal [facility] HospitalComment on above:Performed By: #### CBC, PT, PTT, CMP, CK, HS TROP #### [place] [address] USASerum or plasma anion gap determinationOrdered By: Herminio Davila on 67-75-6288Qmfji gap [Moles/Vol]11.1 mmol/LNormal6.0-15.0[facility] HospitalComment on above:Performed By: #### CBC, PT, PTT, CMP, CK, HS TROP #### [place] [address] USASodium [Moles/volume] in Serum or PlasmaOrdered By: Herminio Davila on 00-31-9394Bsdijl [Moles/Vol]136 mmol/UIpwkyz362-294YlyjtnnlqGreene Memorial HospitalComment on above:Performed By: #### CBC, PT, PTT, CMP, CK, HS TROP #### [place] [address] USASpecific gravity Test strip (U) [Rel density]Ordered By: Herminio Davila on 16-12-2338Xgvzaghi gravity (U) [Rel density]1.0271.001-1.030 [facility] HospitalTroponin I High Sensitivityon 02-04-2025 Troponin I High Jzucywbsdym9Olipyw6-20Oxo [facility] Physician GroupComment on above:Result Comment: The Troponin units of report have been changed to meet the Chest Pain Accreditation requirement, element EC5.M1l2. Troponin units are changed from pg/ml to ng/L. Also, the decimal is removed and results are in whole numbers. PERFORMED BY: [place] [address] PATHOLOGIST SHACKLER JODY DAN M.D.Performed By: #### CBC, PT, PTT, CMP, CK, HS TROP #### [facility] [address] [place] [id number] USATroponin I.cardiac [Mass/volume] in Serum or Plasma by Detection limit <= 0.01 ng/mLOrdered By: Herminio Davila on 66-45-2744Mfkpbkfi I.cardiac DL <= 0.01 ng/mL [Mass/Vol]5 ng/L0-20[facility] Comment on above:The Troponin units of report have been changed to meet the Chest Pain Accreditation requirement, element EC5.M1l2. Troponin units are changed from pg/ml to ng/L. Also, the decimal is removed and results are in whole numbers.Urea nitrogen [Mass/volume] in Serum or PlasmaOrdered By: Herminio Davila on 91-84-8127Vgol nitrogen [Mass/Vol]16 mg/dLNormal7-25[facility] HospitalComment on above:Performed By: #### CBC, PT, PTT, CMP, CK, HS TROP #### [facility] [address] [place] [id number] USAUrobilinogen Test strip (U) [Mass/Vol]Ordered By: Herminio Davila on 17-01-3625Hbvhohukfqme (U) [Mass/Vol]Normal mg/dLNoKettering Health MiamisburgWhole blood chloride measurementOrdered By: Herminio Davila on 77-34-4898Jlcgrdgy [Moles/Vol]106.0 mmol/AChebvb31-278TqcnwkfudGreene Memorial HospitalComment on above:Performed By: #### CUBLD #### [facility] [address] [place] [id number] USAWhole blood creatinine measurementOrdered By: Herminio Davila on 67-04-5463Kvepuxgqdy [Mass/Vol]1.0 mg/dLNormal0.6-1.3FTrumbull Memorial HospitalComment on above:ER/ESD physician is notified/shown all ISTAT results.Critical values may be confirmed by laboratorytesting ifdeemed necessary by ER attending doctor.Result Comment: ER/ESD physician is notified/shown all ISTAT results. Critical values may be confirmed by laboratory testing if deemed necessary by ER attending doctor.Performed By: #### CUBLD #### [facility] [address] [place] [address] USAWhole blood ionized calcium measurement (moles/volume) Ordered By: Herminio Davila on 24-00-1223Ziwmejk.ionized (Bld) [Moles/Vol]1170 mmol/L1.12-1.32[facility] HospitalWhole blood potassium measurementOrdered By: Herminio Davila on 40-22-3039Ioxfoajzt [Moles/Vol]3.7 mmol/LNormal3.5-4.9[facility] HospitalComment on above:Performed By: #### CUBLD #### [place] [address] USAWhole blood sodium measurementOrdered By: Herminio Davila on 88-42-7871Gihaeb [Moles/Vol]140 mmol/OPqyxhp190-704CwtyerdwxGreene Memorial HospitalComment on above:Performed By: #### CUBLD #### [place] [address] USAaPTT in Platelet poor plasma by Coagulation assayOrdered By: Herminio Davila on 69-83-2602zOMT Coag (PPP) [Time]27.9 s25.1-36.5FTrumbull Memorial HospitalComment on above:A hematocrit value greater than 55% may lead to inaccurate results in coagulation testing. Patientshaving hematocrit values >55% require a special collection tube for coagulation studies. Please c ontact the laboratory at [phone] for redraw instructions.pH of Urine by Test stripOrdered By: Herminio Davila on 70-65-3492uE (U)5.5 [pH]Normal5.0-9.0 [facility] HospitalComment on above:Order Comment: Name Collection Type:: VoidedPerformed By: #### CUBLD #### [place] [address] USAOffice Visiton 83-02-6371Vnzwsw-up [id number] Chuck Packer 1985 M Date Provider Department Center 03/14/2024 Mayra-URBANO RODRIGUEZ [facility] SURG Second Fl No family history on file Level of Service:51900 [place] POSTOP FOLLOW UP VISIT RELATED TO ORIGINAL PX Reason for Visit and Comments: Post-op [483] - Chuck is here today for post op visit: hemorrhoids, s/p 02/29/24 EUA with hemorrhoidectomy and anal fissure debridementNormalUniTrumbull Regional Medical CenterHISTOLOGY - TISSUE EXAMon 53-56-0036MCX AP CASE REPORT DedhamUnKnox Community HospitalComment on above:Order Comment: Pre-op diagnosis: Anal pain [K62.89]Result Comment: Surgical Pathology Case: [id number] Authorizing Provider: Urbano Rodriguez MD Collected: 02/29/2024 0827 Ordering Location: [facility] Main Operating Room Received: 02/29/2024 1058 Pathologist: Dyana Villasenor MD Specimens: A) - Anus, ANAL FISSURE B) - Anus, INTERNAL AND EXTERNAL HEMORRHOIDPerformed By: #### [id number] #### [facility] ([facility]) [address] [place], [place] [address]NIC AP CLINICAL INFORMATIONNormalUniTrumbull Regional Medical CenterComment on above:Order Comment: Pre-op diagnosis: Anal pain [K62.89]Result Comment: Post-Op Diagnoses K62.89 - Anal pain [ICD-10-CM]Performed By: #### [id number] #### [facility] ([facility]) [address] [place], [place] [address]MNG AP GROSS DESCRIPTIONA. Anus.[facility]red Hospital LimaComment on above:Order Comment: Pre-op diagnosis: Anal pain [...] in a single cassette. [place], Pathologists' Esl Instructor Leonel Hwang. Received in formalin labeled Chuck [...] are somewhat congested with focal prominent vessels. Paper Reclaiming Machine Operator sections are submitted in a single cassette. [place] Pathologists' AssistantPerformed By: #### [id number] #### [facility] ([facility]) [address] [place], [place] [address]OEP AP MICROSCOPIC DESCRIPTIONMicroscopic examination performed. [facility] Hospital LimaComment on above:Order Comment: Pre-op diagnosis: Anal pain [K62.89]Performed By: #### [id number] #### [facility] ([facility]) [address] [place], [place] [address]XRT AP REPORT FINAL DIAGNOSIS NARRATIVENormalUniTrumbull Regional Medical CenterComment on above:Order Comment: Pre-op diagnosis: Anal pain [K62.89]Result Comment: A. Anal fissure, debridement: - Hyperplastic squamous mucosa and dilated congested submucosal veins. B. Hemorrhoids, internal and external, hemorrhoidectomy: - Internal and external hemorrhoids with acutely inflamed reactive surface epithelium. Performed By: #### [id number] #### [facility] ([facility]) [address] [place], [place] [address]XPns 63-80-1610SLN&P reviewed. The patient was examined and there are no changes to the H&P.[facility] Hospital LimaOPNOTE on 71-52-9699RHZVZGOMGX UNDER ANESTHESIA,, HEMORRHOIDECTOMY, DEBRIDMENT OF ANAL FISSURE Operative Note Date: 02/29/2024 Location: [facility] OR Name: Chuck Packer, : 1985, Diagnosis Pre-op Diagnosis * Anal pain [K62.89] Post-op Diagnosis * Anal pain [K62.89] Anal fissure External and internal hemorrhoid Procedures HEMORRHOIDECTOMY, DEBRIDMENT OF ANAL FISSURE EXAM UNDER ANESTHESIA, [address]65 - [place] ANRCT XM SURG REQ ANES GENERAL SPI/EDRL [...] EXTERNAL HEMORRHOID Comment: PLACED IN FORMALIN Staff: Manager Alliance: Shannan Guy RN Scrub Person: Dianelys Watson [...] - hemodynamically stable. Condition: stable Melbarenu Rodriguez HafaeoXekczyrsojUniversity Hospitals Health SystemCT GLUCOSE METER UNSOLICITED RESULTSon 89-72-1598Oycteno [Mass/Vol]134 mg/gMMbcr17-023 [facility] HospitalComment on above:Order Comment: Waived Testing in the ED is performed under the ED CLIA certificate #[id number].Result Comment: oyciupb27Ywkwypxgq By: #### [id number] #### [facility] ([facility]) [address] [place], [place] [address]Gynrkhzzg [id number] Chuck Packer 1985 M Date Provider Department Center 02/23/2024 Mayra-MICHAEL URBANO [facility] SURG Second Fl No family history on file Level of Service:34544 [place] OFFICE/OUTPATIENT NEW LOW MDM 30 MINUTES Reason for Visit and Comments: Consult [484] - Chuck is here today for consult: Rectal pain and BleedingNormal [facility] HospitalHPon 70-64-3454WIOefhruhwdo Patient ID: Chuck Packer is a 38 [...] the past 36 hour(s)). No follow-ups on file.NormalOhio State Harding HospitalGeneral Surgery Office/Clinic Noteon 41-00-3863Rzqsdin Surgery Office/Clinic NoteGeneral Surgery Office/Clinic Note HPI [...] Rectal bleeding Rectal or anal pain Smoker Qbsdf-Gmoexohwg-Tyehu syndrome Historical Atrial fibrillation Epididymitis Nocturia Scrotal [...] Time Signed: 12/26/23 19:55 EDTAmbulatory Visit Summaryon 56-69-6195Owibpcaloz Visit SummaryAmbulatory Visit Summary CHUCK PACKER :1985 [...] with mild panic attacks Rectal bleeding Smoker Isrsp-Iccigvzro-Zdhcv syndrome Historical - Any problem that you are no longer receiving treatment for. Atrial fibrillation Epididymitis Nocturia Scrotal pain Patient Survey You may receive a survey via text or e-mail asking about your office visit. Please share your experience with us by completing your survey. We appreciate your feedback and thank you for choosing us for your care. [facility] HospitalCB AUTO DIFFon 73-48-7220TGUK # 0.0 103/ulNormal0.0-0.1The [facility] HospitalComment on above:Performed By: #### PTT, PT #### [facility] [address] [place] [address] Dr. Oh TrotterBasophils/100 WBC (Bld)0.2 %Normal0.2-2.0[facility] Comment on above:Performed By: #### PTT, PT #### [facility] [address] [place] [address] Dr. Oh Shaw #0.0 103/ulNormal0.0-0.7The [facility] HospitalComment on above: Performed By: #### PTT, PT #### [facility] [address] [place] [address] Dr. Oh Huangosinophils/100 WBC (Bld)0.6 %Critically low0.9-7.0The [facility] HospitalComment on above:Performed By: #### PTT, PT #### [facility] [address] [place] [address] Dr. Oh Huangrythrocyte distribution width (RBC) [Ratio]12.2 %Suvpde12.0-15.0 The [facility] HospitalComment on above:Performed By: #### PTT, PT #### [facility] [address] [place] [address] Dr. Oh Dejesusatocrit (Bld) [Volume fraction]44.1 %Jsizpm25.0-54.0[facility] HospitalComment on above:Performed By: #### PTT, PT #### [facility] [address] [place] [address] Dr. Yilan ChangHemoglobin (Bld) [Mass/Vol]15.8 g/hXSrjbwl49.0-18.0The [facility] HospitalComment on above:Performed By: #### PTT, PT #### [facility] [address] [place] [address] Dr. Oh Malave #0.02 10e3/ulNormal0.00-0.03The [facility] HospitalComment on above:Performed By: #### PTT, PT #### [facility] [address] [place] [address] Dr. Oh Malave %0.3 %Normal0.0-0.5The [facility] HospitalComment on above: Performed By: #### PTT, PT #### [facility] [address] [place] [address] Dr. Oh Aldana #1.9 103/ulNormal1.2-3.8The [facility] HospitalComment on above:Performed By: #### PTT, PT #### [facility] [address] [place] [address] Dr. Oh Orellanahocytes/100 WBC (Bld)29.7 %Glzmuy87.5-60.0The [facility] HospitalComhelen devos children's hospital on above:Performed By: #### PTT, PT #### [facility] [address] [place] [address] Dr. Oh SaldanaUAL DIFF REQNONormalThe [facility] HospitalComment on above: Performed By: #### PTT, PT #### [facility] [address] [place] [address] Dr. Oh Lau (RBC) [Entitic mass]29.8 qzOtzcff34.9-34.0The [facility] HospitalComment on above:Performed By: #### PTT, PT #### [facility] [address] [place] [address] Dr. Oh Lau (RBC) [Mass/Vol]35.8 g/dLCritically high29.9-35.2The [facility] HospitalComment on above:Performed By: #### PTT, PT #### [facility] [address] [place] [address] Dr. Oh LauV (RBC) [Entitic vol]83.2 gSPcxudk28.0-94.0The [facility] Hospitalment on above:Performed By: #### PTT, PT #### [facility] [address] [place] [address] Dr. Oh Johnson #0.6 103/ulNormal0.3-0.8The [facility] HospitalComment on above:Performed By: #### PTT, PT #### [facility] [address] [place] [address] Dr. Oh Cedeñoocytes/100 WBC (Bld)8.6 %Normal1.7-12.0The [facility] on above:Performed By: #### PTT, PT #### [facility] [address] [place] [address] Dr. Oh Cruz #3.9 103/ulNormal1.4-6.5The [facility] Hospitalment on above:Performed By: #### PTT, PT #### [facility] [address] [place] [address] Dr. Oh Velazquezutrophils/100 WBC (Bld)60.6 %Prlmsd21.0-75.0The [facility] on above:Performed By: #### PTT, PT #### [facility] [address] [place] [address] Dr. Oh Holmanlet mean volume (Bld) [Entitic vol]9.5 fLNormal9.5-13.5The [facility] Hospitalment on above:Performed By: #### PTT, PT #### [facility] [address] [place] [address] Dr. Oh TrotterPLT187 103/aqIchxzh161-593Eou [facility] on above: Performed By: #### PTT, PT #### [facility] [address] [place] [address] Dr. Oh TrotterRBC5.30 106/ulNormal4.70-6.10The [facility] Hospitalment on above:Performed By: #### PTT, PT #### [facility] [address] [address] [address] Oh TrotterWBC6.4 103/ulNormal4.0-11.0The [facility] HospitalComment on above: Performed By: #### PTT, PT #### [facility] [address] [address] [address] Oh Paul 14(COMP METB)on 23-81-4192Trofvjj [Mass/Vol]3.5 g/dLNormal 3.4-5.0The [facility] HospitalComment on above:Performed By: #### LIPA, CMP, HSTROPN #### [facility] [address] [place] [address] Dr. Oh TrotterAlbumin/Globulin [Mass ratio]0.7 {ratio}NormalThe [facility] HospitalComment on above:Performed By: #### LIPA, CMP, HSTROPN #### [facility] [address] [place] [address] Dr. Oh Sheets [Catalytic activity/Vol]85 U/URssgyx93-864Ppm [facility] Hospitalment on above:Performed By: #### LIPA, CMP, HSTROPN #### [facility] [address] [place] [address] Dr. Oh Negron [Catalytic activity/Vol]34 U/CTeteal53-93Ixl [facility] HospitalComment on above:Performed By: #### LIPA, CMP, HSTROPN #### [facility] [address] [place] [address] Dr. Oh Claire gap [Moles/Vol]13.3 mmol/LNormalThe [facility] on above:Performed By: #### LIPA, CMP, HSTROPN #### [facility] [address] [place] [address] Dr. Oh Milner [Catalytic activity/Vol]18 U/WGqoqym49-19Rav [facility] Hospitalment on above:Performed By: #### LIPA, CMP, HSTROPN #### [facility] [address] [place] [address] Dr. Oh TrotterBilirubin [Mass/Vol]0.4 mg/dLNormal0.2-1.0[facility] Comment on above:Performed By: #### LIPA, CMP, HSTROPN #### [facility] [address] [place] [address] Dr. Oh TrotterCalcium [Mass/Vol]8.9 mg/dLNormal8.5-10.1[facility] Comment on above:Performed By: #### LIPA, CMP, HSTROPN #### [facility] [address] [place] [address] Dr. Oh TrotterChloride [Moles/Vol]105 mmol/WUveeks57-693BqkCl[facility] Comment on above:Performed By: #### LIPA, CMP, HSTROPN #### [facility] [address] [place] [address] Dr. Oh TrotterCO2 [Moles/Vol]24.7 mmol/TLotjwd53.0-32.0[facility] Comment on above:Performed By: #### LIPA, CMP, HSTROPN #### [facility] [address] [place] [address] Dr. Oh TrotterCreatinine [Mass/Vol]0.88 mg/dLNormal0.70-1.30The [facility] HospitalComment on above:Performed By: #### LIPA, CMP, HSTROPN #### [facility] [address] [place] [address] Dr. Oh HuangGFR-AF CYPRIOT>60Normal>=60The [facility] HospitalComment on above:Performed By: #### LIPA, CMP, HSTROPN #### [facility] [address] [place] [address] Dr. Oh HuangGFR-NON AF CYPRIOT>60Normal>=60The [facility] HospitalComment on above:Performed By: #### LIPA, CMP, HSTROPN #### [facility] [address] [address] [address] Oh TrotterGlobulin (S) [Mass/Vol]4.8 g/dLNormLicking Memorial HospitalComment on above:Performed By: #### LIPA, CMP, HSTROPN #### [facility] [address] [place] [address] Dr. Oh TrotterGlucose [Mass/Vol]113 mg/dLCritically zqmp16-219Fkr [facility] HospitalComment on above:Performed By: #### LIPA, CMP, HSTROPN #### [facility] [address] [address] [address] Oh TrotterPotassium [Moles/Vol]4.0 mmol/LNormal3.5-5.1[facility] Comment on above:Performed By: #### LIPA, CMP, HSTROPN #### [facility] [address] [place] [address] Dr. Oh TrotterProtein [Mass/Vol]8.3 g/dLCritically high6.4-8.2The [facility] HospitalComment on above:Performed By: #### LIPA, CMP, HSTROPN #### [facility] [address] [place] [address] Dr. Oh Lopezdium [Moles/Vol]139 mmol/WUizfqu995-596Zso [facility] Comment on above:Performed By: #### LIPA, CMP, HSTROPN #### [facility] [address] [place] [address] Dr. Oh TrotterUrea nitrogen [Mass/Vol]15.0 mg/dLNormal7.0-18.0The [facility] HospitalComment on above:Performed By: #### LIPA, CMP, HSTROPN #### [facility] [address] [place] [address] Dr. Oh Amador nitrogen/Creatinine [Mass ratio]17.0 mg/mgNoThe Surgical Hospital at SouthwoodsComment on above:Performed By: #### LIPA, CMP, HSTROPN #### [facility] [address] [place] [address] Dr. Oh TrotterXR ABD FLAT UP_PA German [id number] ABD FLAT UP_PA CHEXAM: XR ABD FLAT [...] Electronically authenticated by: VERA SETHI Date: 2022-07-28 22:14NoLouis [facility] AUTO DIFFon [id number] #0.0 103/ulNormal0.0-0.1[facility] HospitalComment on above:Performed By: #### LIPA, CMP, HSTROPN #### [facility] [address] [address] [address] Oh TrotterBasophils/100 WBC (Bld)0.2 %Normal0.2-2.0[facility] Comment on above:Performed By: #### LIPA CMP, HSTROPN #### [facility] [address] [address] [address] Oh Shaw #0.1 103/ulNormal0.0-0.7The [facility] HospitalComment on above: Performed By: #### LIPA CMP, HSTROPN #### [facility] [address] [place] [address] Dr. Oh Huangosinophils/100 WBC (Bld)0.9 %Normal0.9-7.0[facility] Comment on above:Performed By: #### LIPA, CMP, HSTROPN #### [facility] [address] [place] [address] Dr. Oh Huangrythrocyte distribution width (RBC) [Ratio]12.4 %Yedemh08.0-15.0 The [facility] HospitalComment on above:Performed By: #### LIPA, CMP, HSTROPN #### [facility] [address] [place] [address] Dr. Oh TrotterHematocrit (Bld) [Volume fraction]44.8 %Pnrmpe85.0-54.0The [facility] HospitalComment on above:Performed By: #### LIPA, CMP, HSTROPN #### [facility] [address] [place] [address] Dr. Oh TrotterHemoglobin (Bld) [Mass/Vol]15.7 g/lOHjnzzb18.0-18.0The [facility] HospitalComment on above:Performed By: #### LIPA, CMP, HSTROPN #### [facility] [address] [place] [address] Dr. Oh Malave #0.02 10e3/ulNormal0.00-0.03The [facility] HospitalComment on above:Performed By: #### LIPA, CMP, HSTROPN #### [facility] [address] [place] [address] Dr. Oh Malave %0.2 %Normal0.0-0.5The [facility] HospitalComment on above: Performed By: #### LIPA, CMP, HSTROPN #### [facility] [address] [place] [address] Dr. Oh OrellanaH #3.2 103/ulNormal1.2-3.8The [facility] HospitalComment on above:Performed By: #### LIPA, CMP, HSTROPN #### [facility] [address] [place] [address] Dr. Oh Shahmphocytes/100 WBC (Bld)39.2 %Klpnqz94.5-60.0The Deep HospitalComment on above:Performed By: #### LIPA, CMP, HSTROPN #### [facility] [address] [address] [address] Oh Smith DIFF REQNONormalThe [facility] HospitalComment on above: Performed By: #### LIPA, CMP, HSTROPN #### [facility] [address] [place] [address] Dr. Oh Lau (RBC) [Entitic mass]29.3 qoXxujcy68.9-34.0The [facility] HospitalComment on above:Performed By: #### LIPA, CMP, HSTROPN #### [facility] [address] [place] [address] Dr. Oh Lau (RBC) [Mass/Vol]35.0 g/tFGarfio92.9-35.2The [facility] HospitalComment on above:Performed By: #### LIPA, CMP, HSTROPN #### [facility] [address] [place] [address] Dr. Oh Sahni (RBC) [Entitic vol]83.7 iYGfqeoz06.0-94.0The [facility] HospitalComment on above:Performed By: #### LIPA, CMP, HSTROPN #### [facility] [address] [place] [address] Dr. Oh Johnson #0.6 103/ulNormal0.3-0.8The [facility] HospitalComment on above:Performed By: #### LIPA, CMP, HSTROPN #### [facility] [address] [place] [address] Dr. Oh Cedeñoocytes/100 WBC (Bld)7.5 %Normal1.7-12.0[facility] Comment on above:Performed By: #### LIPA, CMP, HSTROPN #### [facility] [address] [place] [address] Dr. Oh Cruz #4.3 103/ulNormal1.4-6.5The [facility] HospitalComment on above:Performed By: #### LIPA, CMP, HSTROPN #### [facility] [address] [place] [address] Dr. Oh Velazquezutrophils/100 WBC (Bld)52.0 %Nsoxao52.0-75.0The [facility] HospitalComment on above:Performed By: #### LIPA, CMP, HSTROPN #### [facility] [address] [place] [address] Dr. Oh TrotterPlatelet mean volume (Bld) [Entitic vol]9.8 fLNormal9.5-13.5The [facility] HospitalComment on above:Performed By: #### LIPA, CMP, HSTROPN #### [facility] [address] [place] [address] Dr. Oh TrotterPLT210 103/pgDaadfg106-628Ztw [facility] HospitalComment on above: Performed By: #### LIPA, CMP, HSTROPN #### [facility] [address] [place] [address] Dr. Oh TrotterRBC5.35 106/ulNormal4.70-6.10The [facility] HospitalComhelen devos [facility] on above:Performed By: #### LIPA, CMP, HSTROPN #### [facility] [address] [place] [address] Dr. Oh TrotterWBC8.2 103/ulNormal4.0-11.0The [facility] HospitalComhelen devos children[facility] on above: Performed By: #### LIPA, CMP, HSTROPN #### [facility] [address] [place] [address] Dr. Oh TrotterOCC BLD IMMUNOASSAYon [id number] BLOODPositiveAbnormal NEGATIVEThe [facility] HospitalComhelen devos [facility] on above:Performed By: #### PTT, PT #### [facility] [address] [place] [address] Dr. hO Paul 14(COMP METB)on 37-77-7622Nxhvgbe [Mass/Vol]3.9 g/dLNormal 3.4-5.0The [facility] HospitalComment on above:Performed By: #### LIPA, CMP, HSTROPN #### [facility] [address] [address] [address] Oh TrotterAlbumin/Globulin [Mass ratio]0.9 {ratio}NormalThe [facility] HospitalComhelen devos children's [facility] on above:Performed By: #### LIPA, CMP, HSTROPN #### [facility] [address] [place] [address] Dr. Oh AstorgaP [Catalytic activity/Vol]98 U/PRgoxrp58-993Tgj [facility] on above:Performed By: #### LIPA, CMP, HSTROPN #### [facility] [address] [place] [address] Dr. Oh Negron [Catalytic activity/Vol]47 U/SSetsmy92-68Zoa [facility] Hospitalment on above:Performed By: #### LIPA, CMP, HSTROPN #### [facility] [address] [place] [address] Dr. Oh Claire gap [Moles/Vol]13.8 mmol/LNormalThe [facility] Comment on above:Performed By: #### LIPA, CMP, HSTROPN #### [facility] [address] [place] [address] Dr. Oh TrotterAST [Catalytic activity/Vol]18 U/KBrbkde49-79Jmi [facility] on above:Performed By: #### LIPA, CMP, HSTROPN #### [facility] [address] [place] [address] Dr. Oh TrotterBilirubin [Mass/Vol]0.3 mg/dLNormal0.2-1.0[facility] Comment on above:Performed By: #### LIPA, CMP, HSTROPN #### [facility] [address] [place] [address] Dr. Oh TrotterCalcium [Mass/Vol]8.8 mg/dLNormal8.5-10.1[facility] Comment on above:Performed By: #### LIPA, CMP, HSTROPN #### [facility] [address] [address] [address] Oh TrotterChloride [Moles/Vol]105 mmol/YMghwie68-436Wwg [facility] Comment on above:Performed By: #### LIPA, CMP, HSTROPN #### [facility] [address] [address] [address] Oh TrotterCO2 [Moles/Vol]25.2 mmol/ELhutju24.0-32.0[facility] Comment on above:Performed By: #### LIPA, CMP, HSTROPN #### [facility] [address] [place] [address] Dr. Oh TrotterCreatinine [Mass/Vol]1.02 mg/dLNormal0.70-1.30The [facility] HospitalComment on above:Performed By: #### LIPA, CMP, HSTROPN #### [facility] [address] [place] [address] Dr. Oh HuangGFR-AF CYPRIOT>60Normal>=60The [facility] HospitalComment on above:Performed By: #### LIPA, CMP, HSTROPN #### [facility] [address] [place] [address] Dr. Oh Mccormick-NON AF CYPRIOT>60Normal>=60[facility] HospitalComment on above:Performed By: #### LIPA, CMP, HSTROPN #### [facility] [address] [place] [address] Dr. Oh TrotterGlobulin (S) [Mass/Vol]4.2 g/dLNormalThe [facility] HospitalComment on above:Performed By: #### LIPA, CMP, HSTROPN #### [facility] [address] [place] [address] Dr. Oh TrotterGlucose [Mass/Vol]104 mg/aKLdzkrk78-623Tca [facility] Comment on above:Performed By: #### LIPA, CMP, HSTROPN #### [facility] [address] [place] [address] Dr. Oh TrotterPotassium [Moles/Vol]4.0 mmol/LNormal3.5-5.1[facility] Comment on above:Performed By: #### LIPA, CMP, HSTROPN #### [facility] [address] [address] [address] Oh TrotterProtein [Mass/Vol]8.1 g/dLNormal6.4-8.2[facility] Comment on above:Performed By: #### LIPA, CMP, HSTROPN #### [facility] [address] [place] [address] Dr. Oh TrotterSodium [Moles/Vol]140 mmol/GMpnmrf107-255Oia [facility] Comment on above:Performed By: #### LIPA, CMP, HSTROPN #### [facility] [address] [place] [address] Dr. Oh TrotterUrea nitrogen [Mass/Vol]16.0 mg/dLNormal7.0-18.0[facility] HospitalComment on above:Performed By: #### LIPA, CMP, HSTROPN #### [facility] [address] [place] [address] Dr. Oh Amador nitrogen/Creatinine [Mass ratio]15.7 mg/mgNoThe Surgical Hospital at SouthwoodsComment on above:Performed By: #### LIPA, CMP, HSTROPN #### [facility] [address] [place] [address] Dr. Oh TrotterPROTIMEon 17-39-7419JOV Coag (PPP) [Relative time]{INR}NormalClinton Memorial HospitalComment on above:Performed By: #### PTT, PT #### [facility] [address] [place] [address] Dr. Oh Coy GUIDELINESSEE BELOWRegency Hospital ToledoComment on above:Result Comment: DESIRED INR: 2.0 - 3.0 CONDITIONS NOT LISTED BELOW 2.5 - 3.5 FOR PROSTHETIC HEART VALVE REPLACEMENT 2.5 - 3.5 RECURRENT THROMBOSIS Performed By: #### PTT, PT #### [facility] [address] [place] [address] Dr. Oh Young Coag (PPP) [Time]9.8 sNormal9.0-11.6ThSheltering Arms Hospital Comment on above:Performed By: #### PTT, PT #### [facility] [address] [place] [address] Dr. Oh Lozoya 38-80-7945mALB Coag (Bld) [Time]26.6 iAnaxsb27.3-36.2[facility] HospitalComment on above:Performed By: #### PTT, PT #### [facility] [address] [place] [address] Dr. Oh TrotterCovid-19 PCR ([facility])on 33-25-3719ZBYE-CoV-2 (COVID-19) RNA SHAE+probe Ql (Unsp spec)Not detectedNormalNOT DETECTEDCl[facility] Hospital Comment on above:Result Comment: This test is not yet approved or cleared by the [place] FDA. When there are no FDA-approved or cleared tests available, and other criteria are met, FDA can make tests available under an emergency access mechanism called an Emergency Use Authorization (EUA). The EUA for this test is supported by the State Archivist of Health and Human Service's (HHS's) declaration [...] with SARS-CoV-2.Performed By: #### PTT, PT #### [facility] [address] [place] [address] Dr. Oh TrotterINFLRENEENZA A AND B AGon [id number] Health Akron CampusComment on above:Result Comment: Negative for Flu A protein angiten. Infection due to Flu A cannot be ruled out. FluA angiten in the sample may be below the detection limit of the test.Performed By: #### LIPA, CMP, HSTROPN #### [facility] [address] [place] [address] Dr. Oh Wray [facility] CenterComment on above: Result Comment: Negative for Flu B protein antigen. Infection due to Flu B cannot be ruled out. FluB antigen in the sample may be below the detection limit of the test.Performed By: #### LIPA, CMP, HSTROPN #### [facility] [address] [place] [address] Dr. Oh Carrillo AGNegativeNormalNEGATIVE SEE COMMENTThe [facility] on above:Performed By: #### LIPA, CMP, HSTROPN #### [facility] [address] [place] [address] Dr. Oh Ashton AGNegativeNormalNEGATIVE SEE COMMENTThe [facility] HospitalComment on above:Performed By: #### LIPA, CMP, HSTROPN #### [facility] [address] [place] [address] Dr. Oh Bonilla AUTO DIFFon [id number] #0.0 103/ulNormal0.0-0.1The [facility] HospitalComment on above:Performed By: #### PTT, PT #### [facility] [address] [place] [address] Dr. Oh TrotterBasophils/100 WBC (Bld)0.2 %Normal0.2-2.0The [facility] Comment on above:Performed By: #### PTT, PT #### [facility] [address] [place] [address] Dr. Oh Shaw #0.0 103/ulNormal0.0-0.7The [facility] HospitalComment on above: Performed By: #### PTT, PT #### [facility] [address] [place] [address] Dr. Oh Huangosinophils/100 WBC (Bld)0.4 %Critically low0.9-7.0The [facility] Hospitalment on above:Performed By: #### PTT, PT #### [facility] [address] [place] [address] Dr. Oh Huangrythrocyte distribution width (RBC) [Ratio]12.2 %Ezybeb00.0-15.0 The [facility] HospitalComment on above:Performed By: #### PTT, PT #### [facility] [address] [place] [address] Dr. Oh TrotterHematocrit (Bld) [Volume fraction]45.7 %Epsllm39.0-54.0The [facility] HospitalComment on above:Performed By: #### PTT, PT #### [facility] [address] [place] [address] Dr. Oh TrotterHemoglobin (Bld) [Mass/Vol]16.0 g/yIKndcug69.0-18.0The [facility] Hospitalment on above:Performed By: #### PTT, PT #### [facility] [address] [place] [address] Dr. Oh Malave #0.04 10e3/ulCritically high0.00-0.03[facility] Comment on above:Performed By: #### PTT, PT #### [facility] [address] [place] [address] Dr. Oh TrotterIG %0.4 %Normal0.0-0.5The [facility] HospitalComment on above: Performed By: #### PTT, PT #### [facility] [address] [place] [address] Dr. Oh ShahMPH #2.8 103/ulNormal1.2-3.8The [facility] HospitalComment on above:Performed By: #### PTT, PT #### [facility] [address] [place] [address] Dr. Oh Shahmphocytes/100 WBC (Bld)29.5 %Bzwqyv86.5-60.0The [facility] Hospitalment on above:Performed By: #### PTT, PT #### [facility] [address] [place] [address] Dr. Oh Smith DIFF REQNONormalThe [facility] HospitalComment on above: Performed By: #### PTT, PT #### [facility] [address] [place] [address] Dr. Oh Lau (RBC) [Entitic mass]29.7 oxQvcjoq68.9-34.0The [facility] HospitalComment on above:Performed By: #### PTT, PT #### [facility] [address] [place] [address] Dr. Oh Lau (RBC) [Mass/Vol]35.0 g/uRNkzrsx41.9-35.2The [facility] HospitalComment on above:Performed By: #### PTT, PT #### [facility] [address] [place] [address] Dr. Oh Lau (RBC) [Entitic vol]84.8 dJTizbes28.0-94.0The [facility] HospitalComment on above:Performed By: #### PTT, PT #### [facility] [address] [place] [address] Dr. Oh Johnson #0.5 103/ulNormal0.3-0.8The [facility] HospitalComment on above:Performed By: #### PTT, PT #### [facility] [address] [place] [address] Dr. Oh Cedeñoocytes/100 WBC (Bld)5.2 %Normal1.7-12.0[facility] Comment on above:Performed By: #### PTT, PT #### [facility] [address] [place] [address] Dr. Oh Cruz #6.2 103/ulNormal1.4-6.5The [facility] HospitalComment on above:Performed By: #### PTT, PT #### [facility] [address] [place] [address] Dr. Oh Velazquezutrophils/100 WBC (Bld)64.3 %Najguk78.0-75.0The [facility] HospitalComment on above:Performed By: #### PTT, PT #### [facility] [address] [place] [address] Dr. Oh Holmanlet mean volume (Bld) [Entitic vol]9.9 fLNormal9.5-13.5The [facility] HospitalComment on above:Performed By: #### PTT, PT #### [facility] [address] [place] [address] Dr. Oh TrotterPLT196 103/qqLemsmj550-660Rqg [facility] HospitalComment on above: Performed By: #### PTT, PT #### [facility] [address] [place] [address] Dr. Oh TrotterRBC5.39 106/ulNormal4.70-6.10The [facility] HospitalComment on above:Performed By: #### PTT, PT #### [facility] [address] [place] [address] Dr. Oh TrotterWBC9.6 103/ulNormal4.0-11.0The [facility] HospitalComment on above: Performed By: #### PTT, PT #### [facility] [address] [place] [address] Dr. Oh BlissDIMERon 75-04-4720F-DIMER<0.19Normal<=0.59[facility] Comment on above:Performed By: #### PTT, PT #### [facility] [address] [place] [address] Dr. Oh Delgado-DIMER COMMENTSSEE [facility] CenterComment on above:Result Comment: Increases in D-Dimer concentration [...] hospitalization. Performed By: #### PTT, PT #### [facility] [address] [address] [address] Oh Magana URINE PROFILEon 71-24-5905Kcywcmziv Ql (U)NegativeNormal NEGATIVEClinton Memorial HospitalComment on above:Performed By: #### SRAVANI UMICRO #### [facility] [address] [address] [address] Oh TrotterClarity (U)CLEARNormalCLEARClinton Memorial HospitalComment on above: Performed By: #### SRAVANI UMICRO #### [facility] [address] [address] [address] Oh Maierlor (U)LT. YELLOWNormalYELLOWClinton Memorial HospitalComment on above:Performed By: #### SRAVANI UMICRO #### [facility] [address] [place] [address] Dr. Oh Washburn micrscopic examination will be performed if indicated. NormalClinton Memorial HospitalComment on above:Performed By: #### SRAVANI UMICRO #### [facility] [address] [place] [address] Dr. Oh TrotterGlucose Ql (U)NegativeNormalNEGATIVEClinton Memorial HospitalComment on above:Performed By: #### SRAVANI UMICRO #### [facility] [address] [place] [address] Dr. Oh TrotterHemoglobin Ql (U)SMALLAbnormalNEGATIVEMiddletown Hospital on above:Performed By: #### SRAVANI UMICRO #### [facility] [address] [place] [address] Dr. Oh TrotterKetones Ql (U)NegativeNormalNEGATIVEClinton Memorial HospitalComment on above:Performed By: #### SRAVANI UMICRO #### [facility] [address] [place] [address] Dr. Oh TrotterLEUKOCYTESNegativeNormalNEGATIVEClinton Memorial HospitalComment on above:Performed By: #### SRAVANI UMICRO #### [facility] [address] [place] [address] Dr. Oh Eng Ql (U)NegativeNormalNEGATIVEThe [facility] HospitalComment on above:Performed By: #### OSVALDO LASSITER #### [facility] [address] [place] [address] Dr. Oh TrotterpH (U)6.0 [pH]Normal5-9The [facility] HospitalComment on above: Performed By: #### OSVALDO LASSITER #### [facility] [address] [place] [address] Dr. Oh TrotterSPEC GRAVITY1.546Qyyxsy3.005-<=1.025The [facility] HospitalComment on above:Performed By: #### OSVALDO LASSITER #### [facility] [address] [place] [address] Dr. Oh TrotterUA PROTEINNegativeNormalNEGATIVE/ TRACEThe [facility] Comment on above:Performed By: #### OSVALDO LASSITER #### [facility] [address] [place] [address] Dr. Oh Castellanos MICRO INDINDICATEDNormalThe [facility] HospitalComment on above: Performed By: #### OSVALDO LASSITER #### [facility] [address] [place] [address] Dr. Oh TrotterUrobilinogen Qn (U)0.2 {Federico'U}/dLNormal0.2 - 1.0The [facility] HospitalComment on above:Performed By: #### OSVALDO LASSITER #### [facility] [address] [place] [address] Dr. Oh TrotterLIPASEon 23-69-8112Tfbftl [Catalytic activity/Vol]125.0 U/LNormal 73.0-393.0The [facility] HospitalComment on above:Performed By: #### LIPA, CMP, HSTROPN #### [facility] [address] [place] [address] Dr. Oh TrotterPROF 14(COMP METB)on 02-68-4840Cwscssj [Mass/Vol]3.8 g/dLNormal 3.4-5.0The [facility] HospitalComment on above:Performed By: #### LIPA, CMP, HSTROPN #### [facility] [address] [place] [address] Dr. Oh TrotterAlbumin/Globulin [Mass ratio]0.8 {ratio}NormalThe [facility] Memorial HospitalComment on above:Performed By: #### LIPA, CMP, HSTROPN #### [facility] [address] [place] [address] Dr. Oh Sheets [Catalytic activity/Vol]77 U/SHvecdw45-167Cpx [facility] HospitalComment on above:Performed By: #### LIPA, CMP, HSTROPN #### [facility] [address] [place] [address] Dr. Oh Negron [Catalytic activity/Vol]39 U/PZdjaww22-75Fpc [facility] HospitalComment on above:Performed By: #### LIPA, CMP, HSTROPN #### [facility] [address] [place] [address] Dr. Oh Claire gap [Moles/Vol]9.3 mmol/LNormalThe [facility] HospitalComment on above:Performed By: #### LIPA, CMP, HSTROPN #### [facility] [address] [place] [address] Dr. Oh Milner [Catalytic activity/Vol]21 U/RFywqwy49-21Mga [facility] HospitalComment on above:Performed By: #### LIPA, CMP, HSTROPN #### [facility] [address] [place] [address] Dr. Oh TrotterBilirubin [Mass/Vol]0.4 mg/dLNormal0.2-1.0The [facility] Comment on above:Performed By: #### LIPA, CMP, HSTROPN #### [facility] [address] [place] [address] Dr. Oh TrotterCalcium [Mass/Vol]9.2 mg/dLNormal8.5-10.1The [facility] Comment on above:Performed By: #### LIPA, CMP, HSTROPN #### [facility] [address] [address] [address] Oh TrotterChloride [Moles/Vol]102 mmol/OOznmqd56-056NyhClinton Memorial Hospital Comment on above:Performed By: #### LIPA, CMP, HSTROPN #### [facility] [address] [address] [address] Oh TrotterCO2 [Moles/Vol]26.6 mmol/KMowoah94.0-32.0[facility] Comment on above:Performed By: #### LIPA, CMP, HSTROPN #### [facility] [address] [place] [address] Dr. Oh TrotterCreatinine [Mass/Vol]1.08 mg/dLNormal0.70-1.30[facility] HospitalComment on above:Performed By: #### LIPA, CMP, HSTROPN #### [facility] [address] [place] [address] Dr. Oh HuangGFR-AF CYPRIOT>60Normal>=60Cl[facility] HospitalComment on above:Performed By: #### LIPA, CMP, HSTROPN #### [facility] [address] [place] [address] Dr. Oh HuangGFR-NON AF CYPRIOT>60Normal>=60Cl[facility] HospitalComment on above:Performed By: #### LIPA, CMP, HSTROPN #### [facility] [address] [address] [address] Oh TrotterGlobulin (S) [Mass/Vol]4.7 g/dLNormalThe [facility] HospitalComment on above:Performed By: #### LIPA, CMP, HSTROPN #### [facility] [address] [place] [address] Dr. Oh TrotterGlucose [Mass/Vol]103 mg/zMSmsgdn35-383CyaClinton Memorial Hospital Comment on above:Performed By: #### LIPA, CMP, HSTROPN #### [facility] [address] [address] [address] Oh TrotterPotassium [Moles/Vol]3.9 mmol/LNormal3.5-5.1The [facility] Comment on above:Performed By: #### LIPA, CMP, HSTROPN #### [facility] [address] [place] [address] Dr. Oh TrotterProtein [Mass/Vol]8.5 g/dLCritically high6.4-8.2The [facility] HospitalComment on above:Performed By: #### LIPA, CMP, HSTROPN #### [facility] [address] [place] [address] Dr. Oh TrotterSodium [Moles/Vol]134 mmol/LCritically pdp367-899Vft [facility] HospitalComment on above:Performed By: #### LIPA, CMP, HSTROPN #### [facility] [address] [place] [address] Dr. Oh TrotterUrea nitrogen [Mass/Vol]20.0 mg/dLCritically high7.0-18.0The [facility] HospitalComment on above:Performed By: #### LIPA, CMP, HSTROPN #### [facility] [address] [place] [address] Dr. Oh Amador nitrogen/Creatinine [Mass ratio]18.5 mg/mgNoThe Surgical Hospital at SouthwoodsComment on above:Performed By: #### LIPA, CMP, HSTROPN #### [facility] [address] [place] [address] Dr. Oh TrotterPROTIMEon 23-50-8908CVD Coag (PPP) [Relative time]1.00 {INR} NormalThe [facility] HospitalComment on above:Performed By: #### PTT, PT #### [facility] [address] [place] [address] Dr. Oh Coy GUIDELINESSEE BELOWRegency Hospital ToledoComment on above:Result Comment: DESIRED INR: 2.0 - 3.0 CONDITIONS NOT LISTED BELOW 2.5 - 3.5 FOR PROSTHETIC HEART VALVE REPLACEMENT 2.5 - 3.5 RECURRENT THROMBOSIS Performed By: #### PTT, PT #### [facility] [address] [place] [address] Dr. Oh Young Coag (PPP) [Time]10.8 sNormal9.0-11.6The [facility] Comment on above:Performed By: #### PTT, PT #### [facility] [address] [place] [address] Dr. Oh Lozoya 89-74-6303mATH Coag (Bld) [Time]27.9 oXibgri20.3-36.2The [facility] HospitalComment on above:Performed By: #### PTT, PT #### [facility] [address] [place] [address] Dr. Oh Miller, HIGH SENSITIVITYon 83-26-5901QKQPHT4.9 pg/mLNormal 4.0-76.1The [facility] HospitalComment on above:Result Comment: CUT-OFF POINTS HAVE BEEN ESTABLISHED BASED ON THE FOURTH UNIVERSAL DEFINITIONS OF MYOCARDIAL INFARCTION. THE UPPER REFERENCE LIMIT (URL) OF TROPONIN, DEFINED THE 99TH PERCENTILE OF cTnI DISTRIBUTION IN A REFERENCE POPULATION, HAS BEEN CONFIRMED THE DECISION THRESHOLD FOR OR DIAGNOSIS.Performed By: #### LIPA, CMP, HSTROPN #### [facility] [address] [place] [address] Dr. Oh DIOR ONLYon [id number] SEENNormalNONE SEENClinton Memorial HospitalComment on above:Performed By: #### MATHIEU LASSITERRO #### [facility] [address] [place] [address] Dr. Oh Bhat identified Cx Nom (U)NOT INDICATEDNormalThe [facility] HospitalComment on above:Performed By: #### AUBRIE LASSITERICRO #### [facility] [address] [place] [address] Dr. Oh Dudley SEENNormalNONE SEENClinton Memorial HospitalComment on above:Performed By: #### MATHIEU LASSITERRO #### [facility] [address] [place] [address] Dr. Yilan ChangCrystals LM Nom (Urine sed)NONE SEENNormalNONE SEENThe [facility] HospitalComment on above:Performed By: #### ERUR, UMICRO #### [facility] [address] [place] [address] Dr. Casiano ChangEpithelial cells LM Ql (Urine sed)FEWAbnormalNONE SEEN /RAREThe [facility] HospitalComment on above:Performed By: #### SHAUNR, UMICRO #### [facility] [address] [place] [address] Dr. Oh TrotterMUCOUSMODERATEAbnormalNONE SEENThe [facility] HospitalComment on above:Performed By: #### SRAVANI, UMICRO #### [facility] [address] [place] [address] Dr. Oh TrotterFrhudFUO4-6Tfubme6-1Pxy [facility] HospitalComment on above:Performed By: #### SRAVANI, UMICRO #### [facility] [address] [place] [address] Dr. Oh TrotterWBCNONE SEENNormalNONE SEENThe [facility] HospitalComment on above: Performed By: #### SRAVANI, UMICRO #### [facility] [address] [place] [address] Dr. Oh TrotterXR ABD FLAT UP_PA German [id number] ABD FLAT UP_PA CHEXAM: Acute abdomen series: [...] Electronically authenticated by: LUCY JEWELL Date: 2022-03-06 15:55[facility] ToledoXR CSPINE 2_3 VIEWSon [id number] CSPINE 2_3 VIEWSEXAM: C-spine HISTORY: Neck pain [...] Electronically authenticated by: LUCY JEWELL Date: 2022-03-06 15:54NormalThSumma Health AUTO DIFFon [id number] #0.0 103/ulNormal0.0-0.1[facility] HospitalComment on above:Performed By: #### LIPA, CMP, HSTROPN #### [facility] [address] [place] [address] Dr. Oh TrotterBasophils/100 WBC (Bld)0.2 %Normal0.2-2.0[facility] Comment on above:Performed By: #### LIPA, CMP, HSTROPN #### [facility] [address] [place] [address] Dr. Oh Shaw #0.1 103/ulNormal0.0-0.7The [facility] HospitalComment on above: Performed By: #### LIPA, CMP, HSTROPN #### [facility] [address] [place] [address] Dr. Oh Huangosinophils/100 WBC (Bld)1.0 %Normal0.9-7.0[facility] Comment on above:Performed By: #### LIPA, CMP, HSTROPN #### [facility] [address] [place] [address] Dr. Oh Huangrythrocyte distribution width (RBC) [Ratio]13.0 %Iliyxi14.0-15.0 [facility] HospitalComment on above:Performed By: #### LIPA, CMP, HSTROPN #### [facility] [address] [place] [address] Dr. Oh TrotterHematocrit (Bld) [Volume fraction]46.6 %Mqjqce35.0-54.0The [facility] HospitalComment on above:Performed By: #### LIPA, CMP, HSTROPN #### [facility] [address] [place] [address] Dr. Oh TrotterHemoglobin (Bld) [Mass/Vol]15.8 g/uVObqlog23.0-18.0The [facility] HospitalComment on above:Performed By: #### LIPA, CMP, HSTROPN #### [facility] [address] [place] [address] Dr. Oh Malave #0.02 10e3/ulNormal0.00-0.03The [facility] HospitalComment on above:Performed By: #### LIPA, CMP, HSTROPN #### [facility] [address] [place] [address] Dr. Oh Malave %0.2 %Normal0.0-0.5The [facility] HospitalComment on above: Performed By: #### LIPA, CMP, HSTROPN #### [facility] [address] [place] [address] Dr. Oh Aldana #1.6 103/ulNormal1.2-3.8The [facility] HospitalComment on above:Performed By: #### LIPA, CMP, HSTROPN #### [facility] [address] [place] [address] Dr. Oh Orellanahocytes/100 WBC (Bld)15.3 %Critically low20.5-60.0The [facility] HospitalComment on above:Performed By: #### LIPA, CMP, HSTROPN #### [facility] [address] [place] [address] Dr. Oh SaldanaUAL DIFF REQNONormalThe [facility] HospitalComment on above: Performed By: #### LIPA, CMP, HSTROPN #### [facility] [address] [place] [address] Dr. Oh Valentin (RBC) [Entitic mass]30.1 pvWufgli57.9-34.0The [facility] HospitalComment on above:Performed By: #### LIPA, CMP, HSTROPN #### [facility] [address] [place] [address] Dr. Oh Lau (RBC) [Mass/Vol]33.9 g/xQBvkxxj28.9-35.2The [facility] HospitalComment on above:Performed By: #### LIPA, CMP, HSTROPN #### [facility] [address] [place] [address] Dr. Oh Lau (RBC) [Entitic vol]88.8 wENmidje18.0-94.0The [facility] HospitalComment on above:Performed By: #### LIPA, CMP, HSTROPN #### [facility] [address] [place] [address] Dr. Oh Johnson #0.7 103/ulNormal0.3-0.8The [facility] HospitalComment on above:Performed By: #### LIPA, CMP, HSTROPN #### [facility] [address] [place] [address] Dr. Oh Cedeñoocytes/100 WBC (Bld)6.8 %Normal1.7-12.0[facility] Comment on above:Performed By: #### LIPA, CMP, HSTROPN #### [facility] [address] [place] [address] Dr. Oh Cruz #7.9 103/ulCritically high1.4-6.5The [facility] Comment on above:Performed By: #### LIPA, CMP, HSTROPN #### [facility] [address] [place] [address] Dr. Oh Velazquezutrophils/100 WBC (Bld)76.5 %Critically high43.0-75.0The [facility] HospitalComment on above:Performed By: #### LIPA, CMP, HSTROPN #### [facility] [address] [place] [address] Dr. Oh Holmanlet mean volume (Bld) [Entitic vol]9.5 fLNormal9.5-13.5The [facility] HospitalComment on above:Performed By: #### LIPA, CMP, HSTROPN #### [facility] [address] [place] [address] Dr. Oh TrotterPLT191 103/cmAqsnnb994-339Cjy [facility] HospitalComment on above: Performed By: #### LIPA, CMP, HSTROPN #### [facility] [address] [place] [address] Dr. Oh TrotterRBC5.25 106/ulNormal4.70-6.10The [facility] HospitalComment on above:Performed By: #### LIPA, CMP, HSTROPN #### [facility] [address] [place] [address] Dr. Oh TrotterWBC10.4 103/ulNormal4.0-11.0The [facility] HospitalComment on above:Performed By: #### LIPA, CMP, HSTROPN #### [facility] [address] [place] [address] Dr. Oh TrotterPROF CHEM 8 (BAS METB)on 81-94-5579Tdyvt gap [Moles/Vol]9.7 mmol/LNormalThe [facility] HospitalComment on above:Performed By: #### LIPA, CMP, HSTROPN #### [facility] [address] [place] [address] Dr. Oh TrotterCalcium [Mass/Vol]8.9 mg/dLNormal8.5-10.1The [facility] Comment on above:Performed By: #### LIPA, CMP, HSTROPN #### [facility] [address] [place] [address] Dr. Oh TrotterChloride [Moles/Vol]102 mmol/OOovszo36-016Bpm [facility] Comment on above:Performed By: #### LIPA, CMP, HSTROPN #### [facility] [address] [place] [address] Dr. Oh TrotterCO2 [Moles/Vol]29.1 mmol/RDdiwor62.0-32.0[facility] Comment on above:Performed By: #### LIPA, CMP, HSTROPN #### [facility] [address] [place] [address] Dr. Oh TrotterCreatinine [Mass/Vol]1.10 mg/dLNormal0.70-1.30The [facility] HospitalComment on above:Performed By: #### LIPA, CMP, HSTROPN #### [facility] [address] [place] [address] Dr. Oh HuangGFR-AF CYPRIOT>60Normal>=60The [facility] HospitalComment on above:Performed By: #### LIPA, CMP, HSTROPN #### [facility] [address] [place] [address] Dr. Oh HuangGFR-NON AF CYPRIOT>60Normal>=60The [facility] HospitalComment on above:Performed By: #### LIPA, CMP, HSTROPN #### [facility] [address] [place] [address] Dr. Oh TrotterGlucose [Mass/Vol]114 mg/dLCritically ohlw38-218Nyy [facility] HospitalComment on above:Performed By: #### LIPA, CMP, HSTROPN #### [facility] [address] [place] [address] Dr. Oh TrotterPotassium [Moles/Vol]3.8 mmol/LNormal3.5-5.1[facility] Comment on above:Performed By: #### LIPA, CMP, HSTROPN #### [facility] [address] [place] [address] Dr. Oh TrotterSodium [Moles/Vol]137 mmol/SKgywjt225-928Qdg [facility] Comment on above:Performed By: #### LIPA, CMP, HSTROPN #### [facility] [address] [place] [address] Dr. Oh TrotterUrea nitrogen [Mass/Vol]10.0 mg/dLNormal7.0-18.0The [facility] HospitalComment on above:Performed By: #### LIPA, CMP, HSTROPN #### [facility] [address] [address] [address] Oh Amador nitrogen/Creatinine [Mass ratio]9.1 mg/mgNormalThe [facility] HospitalComment on above:Performed By: #### LIPA, CMP, HSTROPN #### [facility] [address] [address] [address] Oh Chris SUKUMAR ADMITon 50-85-1033NE [Catalytic activity/Vol]97 U/L Ohwbhn72-495Bdq [facility] Hospitalment on above:Performed By: #### LIPA, CMP, HSTROPN #### [facility] [address] [address] [address] Oh Garcias.MB [Mass/Vol]0.75 ng/mLNormal<=3.60The [facility] Comment on above:Performed By: #### LIPA, CMP, HSTROPN #### [facility] [address] [place] [address] Dr. Oh TrotterHSTROP4.4 pg/mLNormal4.0-76.1The [facility] on above:Result Comment: CUT-OFF POINTS HAVE BEEN ESTABLISHED BASED ON THE FOURTH UNIVERSAL DEFINITIONS OF MYOCARDIAL INFARCTION. THE UPPER REFERENCE LIMIT (URL) OF TROPONIN, DEFINED THE 99TH PERCENTILE OF cTnI DISTRIBUTION IN A REFERENCE POPULATION, HAS BEEN CONFIRMED THE DECISION THRESHOLD FOR OR DIAGNOSIS.Performed By: #### LIPA, CMP, HSTROPN #### [facility] [address] [place] [address] Dr. Oh TrotterMYO54 ng/zNEtzmkd52-99Umw [facility] Hospitalment on above: Performed By: #### LIPA, CMP, HSTROPN #### [facility] [address] [place] [address] Dr. Oh Bonilla AUTO DIFFon [id number] #0.0 103/ulNormal0.0-0.1The [facility] on above:Performed By: #### PTT, PT #### [facility] [address] [place] [address] Dr. Oh TrotterBasophils/100 WBC (Bld)0.1 %Critically low0.2-2.0The [facility] on above:Performed By: #### PTT, PT #### [facility] [address] [place] [address] Dr. Oh Shaw #0.0 103/ulNormal0.0-0.7The [facility] HospitalComment on above: Performed By: #### PTT, PT #### [facility] [address] [place] [address] Dr. Oh Huangosinophils/100 WBC (Bld)0.3 %Critically low0.9-7.0The [facility] on above:Performed By: #### PTT, PT #### [facility] [address] [place] [address] Dr. Oh Huangrythrocyte distribution width (RBC) [Ratio]12.5 %Ixrvjx95.0-15.0 The [facility] on above:Performed By: #### PTT, PT #### [facility] [address] [place] [address] Dr. Oh TrotterHematocrit (Bld) [Volume fraction]47.1 %Qxeenv30.0-54.0The [facility] on above:Performed By: #### PTT, PT #### [facility] [address] [place] [address] Dr. Oh TrotterHemoglobin (Bld) [Mass/Vol]16.7 g/hFGnbuyh48.0-18.0The [facility] on above:Performed By: #### PTT, PT #### [facility] [address] [place] [address] Dr. Oh Malave #0.02 10e3/ulNormal0.00-0.03The [facility] on above:Performed By: #### PTT, PT #### [facility] [address] [place] [address] Dr. Oh TrotterIG %0.3 %Normal0.0-0.5The [facility] HospitalComment on above: Performed By: #### PTT, PT #### [facility] [address] [place] [address] Dr. Oh Aldana #2.3 103/ulNormal1.2-3.8The [facility] HospitalComment on above:Performed By: #### PTT, PT #### [facility] [address] [place] [address] Dr. Oh Orellanahocytes/100 WBC (Bld)31.7 %Rhcuck77.5-60.0The [facility] HospitalComment on above:Performed By: #### PTT, PT #### [facility] [address] [place] [address] Dr. Oh Smith DIFF REQNONormalThe [facility] HospitalComment on above: Performed By: #### PTT, PT #### [facility] [address] [place] [address] Dr. Oh Valentin (RBC) [Entitic mass]29.9 slTypktq65.9-34.0The [facility] HospitalComment on above:Performed By: #### PTT, PT #### [facility] [address] [place] [address] Dr. Oh Lau (RBC) [Mass/Vol]35.5 g/dLCritically high29.9-35.2The [facility] HospitalComment on above:Performed By: #### PTT, PT #### [facility] [address] [place] [address] Dr. Oh Sahni (RBC) [Entitic vol]84.4 nWMtpyra24.0-94.0The [facility] HospitalComment on above:Performed By: #### PTT, PT #### [facility] [address] [place] [address] Dr. Oh Johnson #0.4 103/ulNormal0.3-0.8The [facility] HospitalComment on above:Performed By: #### PTT, PT #### [facility] [address] [place] [address] Dr. Oh Cedeñoocytes/100 WBC (Bld)4.9 %Normal1.7-12.0The [facility] Comment on above:Performed By: #### PTT, PT #### [facility] [address] [place] [address] Dr. Oh Cruz #4.6 103/ulNormal1.4-6.5The [facility] HospitalComment on above:Performed By: #### PTT, PT #### [facility] [address] [place] [address] Dr. Oh Velazquezutrophils/100 WBC (Bld)62.7 %Psodnd34.0-75.0The [facility] HospitalComment on above:Performed By: #### PTT, PT #### [facility] [address] [place] [address] Dr. Oh Holmanlet mean volume (Bld) [Entitic vol]10.3 fLNormal9.5-13.5The [facility] HospitalComment on above:Performed By: #### PTT, PT #### [facility] [address] [place] [address] Dr. Oh TrotterPLT225 103/hbKprzrg831-102Txp [facility] HospitalComment on above: Performed By: #### PTT, PT #### [facility] [address] [place] [address] Dr. Oh TrotterRBC5.58 106/ulNormal4.70-6.10The [facility] HospitalComment on above:Performed By: #### PTT, PT #### [facility] [address] [place] [address] Dr. Oh TrotterWBC7.3 103/ulNormal4.0-11.0The [facility] HospitalComment on above: Performed By: #### PTT, PT #### [facility] [address] [place] [address] Dr. Oh Delgado-DIMERon 47-07-9041O-DIMER<0.19Normal<=0.59The [facility] Comment on above:Performed By: #### PTT, PT #### [facility] [address] [place] [address] Dr. Oh TrotterD-DIMER COMMENTSSEE BELOWNormFlower Hospital on above:Result Comment: Increases in D-Dimer [...] hospitalization. Performed By: #### PTT, PT #### [facility] [address] [place] [address] Dr. Oh TrotterLIPASEon 74-99-8485Koanxh [Catalytic activity/Vol]127.0 U/LNormal 73.0-393.0The [facility] Hospitalment on above:Performed By: #### LIPA, CMP, HSTROPN #### [facility] [address] [place] [address] Dr. Oh TrotterPROF 14(COMP METB)on 36-76-6884Qweehfj [Mass/Vol]4.0 g/dLNormal 3.4-5.0The [facility] on above:Performed By: #### LIPA, CMP, HSTROPN #### [facility] [address] [place] [address] Dr. Oh TrotterAlbumin/Globulin [Mass ratio]0.9 {ratio}NormalThe [facility] on above:Performed By: #### LIPA, CMP, HSTROPN #### [facility] [address] [place] [address] Dr. Oh Sheets [Catalytic activity/Vol]73 U/NMwwvpj26-234Tlo [facility] on above:Performed By: #### LIPA, CMP, HSTROPN #### [facility] [address] [place] [address] Dr. Oh Negron [Catalytic activity/Vol]45 U/YGnwser82-16Ddm [facility] HospitalComment on above:Performed By: #### LIPA, CMP, HSTROPN #### [facility] [address] [address] [address] Oh TrotterAnion gap [Moles/Vol]15.4 mmol/LNormalClinton [facility] Hospital Comment on above:Performed By: #### LIPA, CMP, HSTROPN #### [facility] [address] [address] [address] Oh TrotterAST [Catalytic activity/Vol]25 U/TInjmbp35-27Nag [facility] HospitalComment on above:Performed By: #### LIPA, CMP, HSTROPN #### [facility] [address] [place] [address] Dr. Oh TrotterBilirubin [Mass/Vol]0.9 mg/dLNormal0.2-1.0[facility] Comment on above:Performed By: #### LIPA, CMP, HSTROPN #### [facility] [address] [place] [address] Dr. Oh TrotterCalcium [Mass/Vol]9.3 mg/dLNormal8.5-10.1[facility] Comment on above:Performed By: #### LIPA, CMP, HSTROPN #### [facility] [address] [place] [address] Dr. Oh TrotterChloride [Moles/Vol]103 mmol/LKmlvhj70-706RbzClinton Memorial Hospital Comment on above:Performed By: #### LIPA, CMP, HSTROPN #### [facility] [address] [place] [address] Dr. Oh TrotterCO2 [Moles/Vol]20.4 mmol/LCritically low21.0-32.0The [facility] HospitalComment on above:Performed By: #### LIPA, CMP, HSTROPN #### [facility] [address] [place] [address] Dr. Oh TrotterCreatinine [Mass/Vol]1.17 mg/dLNormal0.70-1.30The [place] HospitalComment on above:Performed By: #### LIPA, CMP, HSTROPN #### [facility] [address] [address] [address] Oh HuangGFR-AF CYPRIOT>60Normal>=60The [facility] HospitalComment on above:Performed By: #### LIPA, CMP, HSTROPN #### [facility] [address] [address] [address] Oh HuangGFR-NON AF CYPRIOT>60Normal>=60The [facility] HospitalComment on above:Performed By: #### LIPA, CMP, HSTROPN #### [facility] [address] [place] [address] Dr. Oh TrotterGlobulin (S) [Mass/Vol]4.6 g/dLNormalThe [facility] HospitalComment on above:Performed By: #### LIPA, CMP, HSTROPN #### [facility] [address] [place] [address] Dr. Oh TrotterGlucose [Mass/Vol]127 mg/dLCritically wbno69-998Jec [facility] HospitalComment on above:Performed By: #### LIPA, CMP, HSTROPN #### [facility] [address] [place] [address] Dr. Oh TrotterPotassium [Moles/Vol]3.8 mmol/LNormal3.5-5.1The [facility] Comment on above:Performed By: #### LIPA, CMP, HSTROPN #### [facility] [address] [place] [address] Dr. Oh TrotterProtein [Mass/Vol]8.6 g/dLCritically high6.4-8.2The [facility] HospitalComment on above:Performed By: #### LIPA, CMP, HSTROPN #### [facility] [address] [place] [address] Dr. Oh TrotterSodium [Moles/Vol]135 mmol/LCritically iqj965-371Jyz [facility] HospitalComment on above:Performed By: #### LIPA, CMP, HSTROPN #### [facility] [address] [address] [address] Oh TrotterUrea nitrogen [Mass/Vol]12.0 mg/dLNormal7.0-18.0The [facility] HospitalComment on above:Performed By: #### LIPA, CMP, HSTROPN #### [facility] [address] [address] [address] Oh TrotterUrea nitrogen/Creatinine [Mass ratio]10.3 mg/mgNoThe Surgical Hospital at SouthwoodsComment on above:Performed By: #### LIPA, CMP, HSTROPN #### [facility] [address] [address] [address] Oh TrotterXR CHEST 1 Von 33-25-5448SK CHEST 1 VEXAM: XR CHEST 1 V [...] Electronically authenticated by: GALDINO ARROYO Date: 2021-10-16 13:09[facility]edoBNSauk [facility] 16-78-2459Qogvebmbwlj peptide B (Bld) [Mass/Vol]9.0 pg/mL Normal<=450.0The [facility] on above:Performed By: #### HSTROPN, TSH, BNP, CMP #### [facility] [address] [place] [address] Dr. Oh TrotterCBC AUTO DIFFon 90-65-6891LGTC #0.0 103/ulNormal0.0-0.1The [facility] on above:Performed By: #### LIPA, CMP, HSTROPN #### [facility] [address] [place] [address] Dr. Oh TrotterBasophils/100 WBC (Bld)0.1 %Critically low0.2-2.0The [place] HospitalComment on above:Performed By: #### LIPA, CMP, HSTROPN #### [facility] [address] [place] [address] Dr. Oh Shaw #0.1 103/ulNormal0.0-0.7The [facility] on above: Performed By: #### LIPA, CMP, HSTROPN #### [facility] [address] [place] [address] Dr. Oh Huangosinophils/100 WBC (Bld)0.6 %Critically low0.9-7.0The [facility] on above:Performed By: #### LIPA, CMP, HSTROPN #### [facility] [address] [place] [address] Dr. Oh Huangrythrocyte distribution width (RBC) [Ratio]12.5 %Oassiv41.0-15.0 The [facility] on above:Performed By: #### LIPA, CMP, HSTROPN #### [facility] [address] [place] [address] Dr. Oh TrotterHematocrit (Bld) [Volume fraction]48.3 %Uylohu53.0-54.0The [facility] on above:Performed By: #### LIPA, CMP, HSTROPN #### [facility] [address] [place] [address] Dr. Oh TrotterHemoglobin (Bld) [Mass/Vol]16.7 g/aCNlnecr92.0-18.0The [facility] on above:Performed By: #### LIPA, CMP, HSTROPN #### [facility] [address] [place] [address] Dr. Oh Malave #0.01 10e3/ulNormal0.00-0.03The [facility] on above:Performed By: #### LIPA, CMP, HSTROPN #### [facility] [address] [place] [address] Dr. Oh Malave %0.1 %Normal0.0-0.5The [facility] HospitalComment on above: Performed By: #### LIPA, CMP, HSTROPN #### [facility] [address] [place] [address] Dr. Oh Aldana #3.5 103/ulNormal1.2-3.8The [facility] on above:Performed By: #### LIPA, CMP, HSTROPN #### [facility] [address] [place] [address] Dr. Oh Orellanahocytes/100 WBC (Bld)38.8 %Husbqi74.5-60.0The [facility] HospitalComment on above:Performed By: #### LIPA, CMP, HSTROPN #### [facility] [address] [place] [address] Dr. Oh Smith DIFF REQNONormalThe [facility] HospitalComment on above: Performed By: #### LIPA, CMP, HSTROPN #### [facility] [address] [place] [address] Dr. Oh Lau (RBC) [Entitic mass]29.3 soPaygzk87.9-34.0The [facility] Hospitalment on above:Performed By: #### LIPA, CMP, HSTROPN #### [facility] [address] [place] [address] Dr. Oh Lau (RBC) [Mass/Vol]34.6 g/yABprqit46.9-35.2The [facility] HospitalComment on above:Performed By: #### LIPA, CMP, HSTROPN #### [facility] [address] [place] [address] Dr. Oh Lau (RBC) [Entitic vol]84.9 bLDnzflc61.0-94.0The [facility] on above:Performed By: #### LIPA, CMP, HSTROPN #### [facility] [address] [place] [address] Dr. Oh Johnson #0.5 103/ulNormal0.3-0.8The [facility] Hospitalment on above:Performed By: #### LIPA, CMP, HSTROPN #### [facility] [address] [address] [address] Oh Cedeñoocytes/100 WBC (Bld)5.4 %Normal1.7-12.0The [facility] Comment on above:Performed By: #### LIPA, CMP, HSTROPN #### [facility] [address] [place] [address] Dr. Oh VelazquezUT #4.9 103/ulNormal1.4-6.5The [facility] Hospitalment on above:Performed By: #### LIPA, CMP, HSTROPN #### [facility] [address] [place] [address] Dr. Oh Velazquezutrophils/100 WBC (Bld)55.0 %Dgizoy15.0-75.0The [facility]ment on above:Performed By: #### LIPA, CMP, HSTROPN #### [facility] [address] [place] [address] Dr. Oh TrotterPlatelet mean volume (Bld) [Entitic vol]9.7 fLNormal9.5-13.5The [facility] Hospitalment on above:Performed By: #### LIPA, CMP, HSTROPN #### [facility] [address] [place] [address] Dr. Oh TrotterPLT227 103/voAqizno686-247Hvr [facility] Hospitalment on above: Performed By: #### LIPA, CMP, HSTROPN #### [facility] [address] [place] [address] Dr. Oh TrotterRBC5.69 106/ulNormal4.70-6.10The [facility]ment on above:Performed By: #### LIPA, CMP, HSTROPN #### [facility] [address] [place] [address] Dr. Oh TrotterWBC8.9 103/ulNormal4.0-11.0The [facility] on above: Performed By: #### LIPA, CMP, HSTROPN #### [facility] [address] [address] [address] Oh Delgado-DIMERon 03-45-9119S-DIMER0.19 mg/L FEUNormal<=0.59The [facility] on above:Performed By: #### LIPA, CMP, HSTROPN #### [facility] [address] [place] [address] Dr. Oh Delgado-DIMER COMMENTSSEE [facility] on above:Result Comment: Increases in D-Dimer [...] Performed By: #### LIPA, CMP, HSTROPN #### [facility] [address] [place] [address] Dr. Oh TrotterPROF 14(COMP METB)on 64-54-1431Ahouhtq [Mass/Vol]3.9 g/dLNormal 3.4-5.0The [facility] on above:Performed By: #### HSTROPN, TSH, BNP, CMP #### [facility] [address] [place] [address] Dr. Oh TrotterAlbumin/Globulin [Mass ratio]0.8 {ratio}NormalThe [facility] on above:Performed By: #### HSTROPN, TSH, BNP, CMP #### [facility] [address] [place] [address] Dr. Oh Sheets [Catalytic activity/Vol]73 U/EZotycc30-094WcwLakeHealth TriPoint Medical Center on above:Performed By: #### HSTROPN, TSH, BNP, CMP #### [facility] [address] [place] [address] Dr. Oh Negron [Catalytic activity/Vol]48 U/QWgcqrj84-41Bou [facility] HospitalComment on above:Performed By: #### HSTROPN, TSH, BNP, CMP #### [facility] [address] [address] [address] Oh Smithon gap [Moles/Vol]14.9 mmol/LNormalClinton Memorial Hospital Comment on above:Performed By: #### HSTROPN, TSH, BNP, CMP #### [facility] [address] [place] [address] Dr. Oh TrotterAST [Catalytic activity/Vol]22 U/FItqflo26-97Skp [facility] HospitalComment on above:Performed By: #### HSTROPN, TSH, BNP, CMP #### [facility] [address] [place] [address] Dr. Oh TrotterBilirubin [Mass/Vol]0.4 mg/dLNormal0.2-1.0[facility] Comment on above:Performed By: #### HSTROPN, TSH, BNP, CMP #### [facility] [address] [place] [address] Dr. Oh TrotterCalcium [Mass/Vol]9.2 mg/dLNormal8.5-10.1[facility] Comment on above:Performed By: #### HSTROPN, TSH, BNP, CMP #### [facility] [address] [address] [address] Oh TrotterChloride [Moles/Vol]102 mmol/UNgvweg39-104Hwd [facility] Comment on above:Performed By: #### HSTROPN, TSH, BNP, CMP #### [facility] [address] [place] [address] Dr. Oh TrotterCO2 [Moles/Vol]23.7 mmol/AFchjve04.0-32.0The [facility] Comment on above:Performed By: #### HSTROPN, TSH, BNP, CMP #### [facility] [address] [place] [address] Dr. Yilan ChangCreatinine [Mass/Vol]1.14 mg/dLNormal0.70-1.30The [facility] HospitalComment on above:Performed By: #### HSTROPN, TSH, BNP, CMP #### [facility] [address] [address] [address] Oh HuangGFR-AF CYPRIOT>60Normal>=60The [facility] HospitalComment on above:Performed By: #### HSTROPN, TSH, BNP, CMP #### [facility] [address] [address] [address] Oh HuangGFR-NON AF CYPRIOT>60Normal>=60The [facility] HospitalComment on above:Performed By: #### HSTROPN, TSH, BNP, CMP #### [facility] [address] [place] [address] Dr. Oh TrotterGlobulin (S) [Mass/Vol]4.7 g/dLNormalThe [facility] HospitalComment on above:Performed By: #### HSTROPN, TSH, BNP, CMP #### [facility] [address] [place] [address] Dr. Oh TrotterGlucose [Mass/Vol]120 mg/dLCritically tyqd08-496Ysp [facility]ment on above:Performed By: #### HSTROPN, TSH, BNP, CMP #### [facility] [address] [place] [address] Dr. Oh TrotterPotassium [Moles/Vol]3.6 mmol/LNormal3.5-5.1The [facility] Comment on above:Performed By: #### HSTROPN, TSH, BNP, CMP #### [facility] [address] [place] [address] Dr. Oh TrotterProtein [Mass/Vol]8.6 g/dLCritically high6.4-8.2The [facility] HospitalComment on above:Performed By: #### HSTROPN, TSH, BNP, CMP #### [facility] [address] [place] [address] Dr. Oh TrotterSodium [Moles/Vol]137 mmol/PIaoxjj057-899Q[facility] Comment on above:Performed By: #### HSTROPN, TSH, BNP, CMP #### [facility] [address] [place] [address] Dr. Oh Amador nitrogen [Mass/Vol]12.0 mg/dLNormal7.0-18.0[facility] HospitalComment on above:Performed By: #### HSTROPN, TSH, BNP, CMP #### [facility] [address] [place] [address] Dr. Oh Amador nitrogen/Creatinine [Mass ratio]10.5 mg/mgNoThe Surgical Hospital at SouthwoodsComment on above:Performed By: #### HSTROPN, TSH, BNP, CMP #### [facility] [address] [place] [address] Dr. Oh Frey 42-59-3451QZU Coag (PPP) [Relative time]0.94 {INR} NormalThe [facility] HospitalComment on above:Performed By: #### LIPA, CMP, HSTROPN #### [facility] [address] [place] [address] Dr. Oh Coy GUIDELINESSEE BELOWRegency Hospital ToledoComment on above:Result Comment: DESIRED INR: 2.0 - 3.0 CONDITIONS NOT LISTED BELOW 2.5 - 3.5 FOR PROSTHETIC HEART VALVE REPLACEMENT 2.5 - 3.5 RECURRENT THROMBOSIS Performed By: #### LIPA, CMP, HSTROPN #### [facility] [address] [place] [address] Dr. Oh TrotterPT Coag (PPP) [Time]10.2 sNormal9.0-11.6The [facility] Comment on above:Performed By: #### LIPA, CMP, HSTROPN #### [facility] [address] [place] [address] Dr. Oh Lozoya 68-08-6317iOAV Coag (Bld) [Time]26.6 dKbbcbl17.3-36.2[facility] HospitalComment on above:Performed By: #### LIPA, CMP, HSTROPN #### [facility] [address] [address] [address] Oh Miller, HIGH SENSITIVITYon 90-76-0673CKKHHZ7.4 pg/mLCritically low4.0-76.1[facility] on above:Result Comment: CUT-OFF POINTS HAVE BEEN ESTABLISHED BASED ON THE FOURTH UNIVERSAL DEFINITIONS OF MYOCARDIAL INFARCTION. THE UPPER REFERENCE LIMIT (URL) OF TROPONIN, DEFINED THE 99TH PERCENTILE OF cTnI DISTRIBUTION IN A REFERENCE POPULATION, HAS BEEN CONFIRMED THE DECISION THRESHOLD FOR OR DIAGNOSIS.Performed By: #### PTT, PT #### [facility] [address] [place] [address] Dr. Oh Khanna 95-60-6509AFZ5.085 uIU/mLNormal0.358-3.740The [facility] on above:Performed By: #### HSTROPN, TSH, BNP, CMP #### [facility] [address] [place] [address] Dr. Oh Reid [facility] BELOWRegency Hospital ToledoComment on above: Result Comment: <0.34 UIU/ml HYPERTHYROID 0.34-5.60 UIU/ml EUTHYROID >5.60 UIU/ml HYPOTHYROIDPerformed By: #### HSTROPN, TSH, BNP, CMP #### [facility] [address] [place] [address] Dr. Oh TrotterXR ABD FLAT UP_PA German 39-72-2247RJ ABD FLAT UP_PA CHEXAMINATION: XR ABD FLAT [...] Electronically authenticated by: OTTO POLANCO Date: 2021-09-15 19:35[facility] ToledoXR CHEST 1 Von 39-98-4754SZ CHEST 1 VCXR HISTORY: Shortness of breath. [...] Electronically authenticated by: ELIZABETH TURNER Date: 2021-09-06 23:38[facility] Vital Signs Date TimeVital SignValuePerforming RikqwtfdyTfjxcsjg25-56-3978 03:47-0400 Diastolic blood zixtyrxn23 mm[Hg]Nidal Choujaa DO Work Phone: [phone] [place], [place] [address]10-05-2025 03:47-0400 Heart rate88 /minNidal Choujaa DO Work Phone: [phone]10-05-2025 03:47-0400 Respiratory rate14 /minNidal Choujaa DO Work Phone: [phone]10-05-2025 03:47-0400 SaO2% (BldA) [Mass fraction]97 %Nidal Choujaa DO Work Phone: [phone]10-05-2025 03:47-0400 Systolic blood hxamutcu443 mm[Hg]Nidal Choujaa DO Work Phone: [phone] [place], [place] [address]10-05-2025 00:47-0400 Body xnsxlvoyrxe48.7 [degF]Nidal Choujaa DO Work Phone: [phone]10-05-2025 00:46-0400 Body .96 cmNidal Choujaa DO Work Phone: [phone]10-05-2025 00:46-0400 Body .9 kgNidal Choujaa DO Work Phone: [facility]2024 15:26-0400 Blood Pressure LocationMichael NILL [phone]-Qswti General Surgery Gblxvqiz05-85-4448 15:26-0400Diastolic blood gopozwdx12 mm[Hg]Lucy NILL 018-2382Xxvybn-Xrboe General Surgery Ylbtxugc70-92-1687 15:26-0400Heart rate80 /minMichael NILL [phone]-FkenaCommunity Regional Medical Center2024 15:26-0400Respiratory rate16 /minMichael NILL [phone]-RtrejCommunity Regional Medical Center2024 15:26-0400Systolic blood qgdvjevo315 mm[Hg]Lucy NILL [phone]-XtnlqCommunity Regional Medical Center Encounters Encounter DateEncounter TypeCare ProviderFacilityStart: 02-04-2025 End: 74-13-5287Irszazljt department patient visitNidal Choreidjaa DO Work Phone: [phone]-Lzldrowga Room Work Phone: Start: 03-14-2024 End: 89-01-9045usamshjomdHWCQPEEProMedica Bay Park Hospitaltart: 73-93-5851zwxtfipucfANTBPVVVQ EMERITAAvita Health System Galion Hospitaltart: 02-29-2024 End: 39-29-0021xmwfqlcbirJRYNUAXSt. Elizabeth Hospitaltart: 02-23-2024 End: 51-77-4060drzkpuilqaJLPZULZSt. Elizabeth Hospitaltart: 12-21-2023 End: 86-22-6098acdidghbxaOsqydtt R NILLFacility:[facility] Healthtart: 12-21-2023 End: 43-91-3410Hkokjza encounter procedureMichael R NILL [phone]-Culac [facility] [place] Start: 08-09-2022 End: 21-08-1832zhowumxzgaUNDWDL CRAMERFacility:Y0Btzqw: 07-28-2022 End: 24-31-9227fbgozgznprVBYFOW CRAMERFacility:G8Ausvc: 06-24-2022 End: 68-10-1591oxzycowjpmGR LUCY PAN .Facility:P1Ngyag: 05-23-2022 End: 29-34-1144fgosqnlzxlHROAPD CRAMERFacility:F6Ytjoh: 05-11-2022 End: 86-26-6054supblsojuhUWLJYL CRAMERFacility:M1Gotvp: 05-02-2022 End: 22-14-6729jwdzllibnlKTCIJH CRAMERFacility:O7Ojhyc: 03-30-2022 End: 10-63-8286oxrkaayqdpVF REGGIE ANDREINABRENDA .Facility:P8Wufbm: 03-06-2022 End: 64-63-0361hqyzpacalnLH REGGIE BUTLER .Facility:I3Fygkx: 11-01-2021 End: 90-65-5498eswytqfooiERHZF PARKERFacility:B6Crarv: 10-16-2021 End: 79-18-8373fwepaihskrOHCCEZ ANTONI .Facility:I7Lccog: 09-15-2021 End: 55-45-4044xgsduvpizxYP NONE LISTED REQUESTFacility:Q8Eijqo: 09-11-2021 End: 78-09-4847anujxzxybnQMRIVFL YAROSHFacility:S9Mpokz: 09-07-2021 End: 98-54-2345acuyqiaxbxRO SUKUMAR NAIRFacility:H1 Procedures DateProcedureProcedure DetailPerforming ClinicianStart: 05-68-1384Xuhkjzewqyg Lucy PAN Start: 77-73-5146Yniojwh ablation using fluoroscopy guidanceMichael NILL CholecystectomyMichael NILL Plan of Treatment DateCare ActivityDetailAuthorStart: 24-92-1066Plelxbzy identified in Blood by CultureBlood CultureProtestant Hospitaltart: 41-80-3746SavaiedskProtestant Hospitaltart: 59-17-1613XE Head WO contrastProtestant Hospitaltart: 92-86-4446PP of head without contrastCT head stroke alert wo [facility] Hospitaltart: 04-94-9399Pavzhtkuufoh consultation with patientGreene Memorial HospitalPatient Education Weakness - ED discharge instructionsMercy Memorial Hospital Ctr Work Phone: Patient referralMercy Memorial Hospital Ctr Work Phone: Immunizations Immunization DateImmunizationNotesCare ProviderFacilityNEGATED: Highlighted row has not occurred!31-85-4716jcrdzgvke virus vaccine, unspecified formulation Lucy PAN [phone]-Aqpzf General Surgery [facility] DatePayer CategoryPayerPolicy [id number] 2.0.1.766355.3.57[id number] 2..1.804081.3.57[id number] 2.0.1.206855.3.57[id number] 2.0.1.117050.3.57[id number] 2.0.1.872564.3.57[id number] 2.0.1.933819.3.57[id number] 2.840.1.276775.3.57[id number] 2.840.1.159629.3.57[id number] 2..840.1.094556.3.57[id number] 2.16.840.1.768083.3.57[id number] 2..0.1.783426.3.57[id number] 2..0.1.503920.3.57[id number] 2..0.1.661114.3.579.[id number] Social History DateTypeDetailFacilityStart: 02-37-8907Qcmveqc smoking statusHeavy tobacco smoker (finding)CentervilleueTobacco smoking statusNever [facility] BellevueSex Assigned At [facility] HospitalTobacco smoking status NHISUnknown if ever smokedSelect Medical Specialty [facility] Work Phone: SexMale (finding)[facility] Start: 19-70-3980Sxc Assigned At [facility] Functional Status OzxfLbgsehryscOrjkrzFudeowmh88-94-3990Vjzkrtmvsh StatusN/AFMercy Health [facility] Hospital Clinical Notes 06-24-2022 to 03-14-2024 Note Date & PexiMdniPyvcxxbh05-15-8814 NoteSubjective Patient ID: Chuck Packer is a [...] the past 36 hour(s)). No follow-ups on file.[facility]10-29-2024 NotePatient: Chuck Packer Procedure Summary Date: 02/29/24 Room / Location: [facility] OPERATING ROOM 02 / [facility] Operating Room Anesthesia Start: 0756 Anesthesia [...] PACU per anesthesia protocol. No notable events documented.[facility]10-29-2024 Note Airway Date/Time: 02/29/2024 8:07 AM Urgency: elective General Information and Staff Patient location during procedure: OR Anesthesiologist: Neil Song MD Resident/RED HAT ENGINEER/CAA: Facundo Rudolph MD Performed: resident/RED HAT ENGINEER/CAA Indications and Patient Condition Indications for airway [...] approach: 1 Number of other approaches attempted: [facility] NotePatient: Chuck Packer Procedure Information Date/Time: 02/29/24 0730 Procedures: EXAM UNDER ANESTHESIA, HEMORRHOIDECTOMY, DEBRIDMENT OF ANAL FISSURE Location: [facility] OPERATING ROOM 02 / [facility] Operating Room Surgeons: Urbano Rodriguez MD Relevant Problems Cardio (+) Migraines (+) Irtrt-Yyzjaesbf-Tbtkk syndrome GI (+) GERD (gastroesophageal reflux disease) [...] Depression GERD (gastroesophageal reflux disease) Morbid Obesity Ktfnd-Hachndbqs-Pggwe syndrome, treated with ablation as teenager, without [...] discussed with attending and resident. 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 Do not wear perfume, make-up, nail macedonian, or lotions on the day of your [...] need to make any changes, please call [phone]. Notify your surgeon if you develop any illness such as a cold, cough, fever, sore throat or vomiting between now and your surgery. Thank you for entrusting us with your care. [facility] Surgical Services TeamOhio State Harding Hospital10-23-2024 Note Subjective Patient ID: Chuck Packer is a 38 y.o. male who presents for Consult (Chukc is here today for consult: Rectal pain [...] the past 36 hour(s)). No follow-ups on file.[facility]02-22-2023 Note OPERATIVE NOTE OPERATION DATE: 06/24/2022 PREOPERATIVE [...] room in good condition. CC: Leighann Soriano CNPClinton Memorial HospitalEvaluation + Plan note No data available for this section [facility] Evaluation noteNo assessment information available [facility] Work Phone: Hospital Discharge instructions No data available for this section [facility] Hospital Discharge instructions Additional Instructions follow up with your doctor return if worseFirJ.W. Ruby Memorial [facility] Ctr Work Phone: Progress note No data available for this section [facility] Reason for referral (narrative)No reason for referral information availableSelect Medical Specialty Hospital [facility] [place] Work Phone: Summary Purpose Family History No [...] section and content) DATE CREATED AUTHOR 08/11/2022 [facility] DATE CREATED AUTHOR AUTHOR'S ORGANIZ ATION 12/27/2023 [facility] DATE CREATED AUTHOR AUTHOR'S ORGANIZ ATION 03/16/2024 [facility] DATE CREATED AUTHOR AUTHOR'S ORGANIZ ATION 02/10/2025 [facility] Patient Care team informatio n [...] BASED ON THE PRIMARY CLINICAL RECORDS. [employer] [facility]. provides no warranty or guarantee of the accuracy or completeness of information in this document.
--- OUTSIDE RECORDS SUMMARY | 2025-04-28 23:37 | XMS_ITS | Clinical Summary ---
Author Organization [facility] Address [address] [place] [address] Care Team Providers Care Debeader Name Role Phone Unavailable Primary Care Provider Unavailabl e Allergies Active AllergyReactionsCriticalityNoted DateCommentsErythromycinRashLow 02/23/2024Erythromycin FazqRpqyi40/23/5807LkvokgakfudBacep77/23/2024 Medications MedicationSigDispense QuantityRefillsLast FilledStart DateEnd DateStatus divalproex [...] (bright red blood per rectum)02/23/2024hange in bowel xgmsvq2302/23/2024urrent smoker 02/23/2024 Overview (02/23/2024): Added secondary to documentation in Social History. Jxwfgnmckk75/23/2024Erectile wuhwunbpydv51/23/2024Generalized anxiety disorder 02/23/2024GERD (gastroesophageal reflux disease)02/23/2024History of shingles 02/23/2024IBS (irritable bowel syndrome)02/23/20243276Mzldledon06/23/2024Morbid dwtppmf6702/23/2024bdominal pain, bfayzmscxc14/23/2024anic disorder without agoraphobia with mild panic fheomgb9502/23/2024ectal ubfyuglt90/23/2024 Wanfy-Libjzjtis-Jjbyk utxqnqyv82/23/2024nal pain02/23/2024 Social History Tobacco UseTypesPacks/DayYears UsedDateSmoking Tobacco: [...] file03/14/2024Sexually AbusedNot on file03/14/2024HQ-2AnswerDate RecordedPatient Health Questionnaire-2 Ravht14405/14/2023Sex and Gender InformationValueDate RecordedSex Assigned at BirthNot on fileLegal SexMale 02/11/2024 3:19 PM EDTGender IdentityNot on fileSexual OrientationNot on file Last Filed Vital Signs Vital SignReadingTime TakenCommentsBlood Gpvffbau935/8903/14/2024 2:20 PM EST Lznvz122203/14/2024 2:20 PM WXIByftvmjdvhd63.6 ??C (97.8 ??F)03/14/2024 2:20 PM ESTRespiratory Uqpr9074 9:45 AM EDTOxygen Imwoasocmd39%03/14/2024 2:20 PM ESTInhaled Oxygen Concentration--Dadhjd299 kg (314 lb 3.2 oz)03/14/2024 2:20 PM DTWEoyzkb762.5 cm (6' 3 )03/14/2024 2:20 PM ESTBody Mass Index39.27105/14/2023 2:20 PM EST Plan of Treatment Health MaintenanceDue DateLast DoneCommentsDepression Dbhmukqwy89/19/2000 Varicella Vaccines (1 of 2 - 13+ 2-dose series)08/19/2000Hepatitis B Vaccines (1 of 3 - 19+ 3-dose series)08/19/2006Pneumococcal Vaccine: Pediatrics (0 to 5 Years) and At-Risk Patients (6 to 64 Years) (1 of 2 - PCV)08/19/2006dult Rwnlagg8508/19/2009HPV Vaccines (1 - 3-dose SCDM series)08/19/2014COVID-19 Vaccine [...] (Latest Code Status on File) Date ActivatedDate MvgvoamzimfAbxlzqic47/29/2024 6:22 AM02/29/2024 12:22 PM
--- NOTE | 2025-04-28 23:38 | ED.GENADUL1 ---
HPI HPI - General Adult General Chief complaint: Chest Pain Stated complaint: CHEST PAIN , RIGHT ABDOMINAL PAIN Time Seen by Provider: 04/28/25 23:07 Source: patient Mode of arrival: walk-in History of Present Illness HPI narrative: cc - right sided chest pain and abd pain Pt reported that chest pain began yesterday and abd pain began this morning. Both are right sided and non-radiating. No bowel or bladder symptoms. He ate Feast for dinner and it neither improved nor worsened the pain. No blood in urine or stool. No urinary symptoms or flank pain. No recent fall or injury to the torso. No fever, chills, cough, cold or flulike symptoms. He has not taken anything for the pain. Related Data Home Medications ?Medication ?Instructions ?Recorded ?Confirmed fluoxetine 20 mg capsule 40 mg PO DAILY 04/11/25 04/28/25 gabapentin 300 mg capsule 300 mg PO DAILY 04/23/25 04/28/25 lorazepam 0.5 mg tablet mg 04/23/25 Previous Rx's ?Medication ?Instructions ?Recorded meclizine 25 mg chewable tablet 25 mg PO TID PRN dizziness or 03/17/25 (Antivert) vertigo #7 tabs metformin 500 mg tablet 500 mg PO DAILY #30 tabs 03/21/25 benzonatate 100 mg capsule 100 mg PO TID PRN cough #20 caps 04/23/25 loratadine 5 mg-pseudoephedrine ER 1 tab PO Q12H PRN nasal congestion 04/23/25 120 mg tablet,extended #20 tabs release,12hr (Claritin-D 12 Hour) nabumetone 750 mg tablet 750 mg PO BID PRN pain #14 tabs 04/28/25 polyethylene glycol 3350 17 17 g PO DAILY 4 days #68 grams 04/28/25 gram/dose oral powder (ClearLax) Allergies Allergy/AdvReac Type Severity Reaction Status Date / Time erythromycin base Allergy Intermediate Rash Verified 04/28/25 22:39 Penicillins Allergy Intermediate Rash Verified 04/28/25 22:39 Opioid HPI Opioid Management Most Recent Opioid Data: Last Pain Scale 7 04/20/25, 10:18 Ur Phencyclidine Scrn, (NEGATIVE) Negative 03/21/25, 17:37 PFSH PFSH Social History Smoking status: Current every day smoker Little interest or pleasure in doing things: not at all Feeling down, depressed, or hopeless: not at all Exam Narrative Exam Narrative: Nurses notes and vital signs reviewed and patient is not hypoxic. afebrile General: Well-appearing and in no apparent distress. Skin: Warm, dry, no pallor noted. Head: Normocephalic, atraumatic. Neck: Supple, non-tender. Eye: Pupils are equal, round and EOMI. No scleral icterus. Ears, Nose, Mouth, and Throat: Oral mucosa is moist Cardiovascular: Regular Rate and Rhythm without murmur, gallop or rub. Respiratory: No accessory muscle use or respiratory distress. Lungs are clear to auscultation, no wheezing, rales or rhonchi Chest Wall: Anterolateral right chest wall tenderness without crepitus or subcutaneous emphysema Back: No midline thoracic or lumbar vertebral tenderness. No CVA tenderness Musculoskeletal: normal ROM, no calf or popliteal tenderness, no lower extremity edema/swelling GI: Abdomen is soft, non-distended. Normal bowel sounds. No masses appreciated. Diffuse right-sided tenderness to palpation. No rebound, guarding, or rigidity noted. Neurological: A&O x4. No cranial nerve dysfunction observed. No truncal ataxia. Moves all extremities. Sensation intact. Psychiatric: Cooperative and interactive. Normal mood and affect. Constitutional Vital Signs, click to edit/add: Last Vital Signs Temp 97.8 F 04/28/25 22:39 Pulse 85 04/28/25 23:00 Resp 14 04/28/25 23:00 BP 135/83 04/28/25 23:00 Pulse Ox 98 04/28/25 23:00 O2 Del Method Room Air 04/28/25 22:39 Course Vital Signs Vital signs: Vital Signs Blood Pressure 158/89 H 04/28/25 22:38 Pulse Oximetry 99 04/28/25 22:38 Temperature 97.8 F 04/28/25 22:39 Pulse Rate 85 04/28/25 23:00 Respiratory Rate 14 04/28/25 23:00 Blood Pressure 135/83 04/28/25 23:00 Pulse Oximetry 98 04/28/25 23:00 Oxygen Delivery Method Room Air 04/28/25 22:39 Medical Decision Making MDM Narrative Medical decision making narrative: The patient was ordered to receive IM Toradol for pain and undergo x-rays of the chest and abdomen. EKG was also obtained. Imaging Data xr chest, xr abdomen: Attestation: I personally reviewed and interpreted this imaging study as follows: My impression: Chest is without acute cardiopulmonary abnormality; abdomen reveals right-sided stool without obstruction or perforation. ECG Data Attestation: I personally reviewed and interpreted this ECG as follows: Interpretation: EKG interpretation:Emergency Department physician interpretation. Normal sinus rhythm at 96bpm. Normal axis, normal intervals - except for short MI interval - and no ST segment elevation or depression. Discharge Plan Discharge Chief Complaint: Chest Pain Clinical Impression: Acute chest wall pain, Constipation, Abdominal pain Patient Disposition: Home, Self-Care Time of Disposition Decision: 23:43 Prescriptions / Home Meds: New polyethylene glycol 3350 [ClearLax] 17 gram/dose powder 17 g PO DAILY 4 Days Qty: 68 0RF nabumetone 750 mg tablet 750 mg PO BID PRN (Reason: pain) Qty: 14 0RF No Action metformin 500 mg tablet 500 mg PO DAILY Qty: 30 0RF fluoxetine 20 mg capsule 40 mg PO DAILY meclizine [Antivert] 25 mg tablet,chewable 25 mg PO TID PRN (Reason: dizziness or vertigo) Qty: 7 0RF lorazepam 0.5 mg tablet gabapentin 300 mg capsule 300 mg PO DAILY benzonatate 100 mg capsule 100 mg PO TID PRN (Reason: cough) Qty: 20 0RF Claritin-D 12 Hour 5-120 mg tablet extended release 12 hr 1 tab PO Q12H PRN (Reason: nasal congestion) Qty: 20 0RF Print Language: Tajik Instructions: Constipation (ED), Abdominal Pain (ED), Chest Wall Pain (ED) Referrals: MERNA SORIANO [Primary Care Provider, Family Practice] - 1 week
--- OUTSIDE RECORDS SUMMARY | 2025-04-28 23:38 | XMS_ITS | Patient Health Record ---
Author Organization [facility] in [place] Address [address] [place] [address] Care Team Providers Care Practical Nursing Instructor Name Role Phone Lyndsey Sorianoela Primary Care Provider [phone] WaqartiffaniMartínez [phone] Allergies Allergen (clinical drug ingredient) Drug/Non Drug Allergy documented on EMR Reaction Allergy Type Onset Date Status erythromycin Erythromycin Base hives Drug Allergy Activepenicillin VPenicillin V PotassiumhivesDrug AllergyActive Results Component Value Reference Range Notes CBC AUTO DIFF Reviewed date:01/18/2025 10:48:48 AM Interpretation: Performing Lab: Notes/Report: [facility] , White Blood Count 8.4 4.0-11.0 10 3/uL Red Blood Count5.214.70-6.10 10 6/wACqesrjrygb45.714.0-18.0 g/pJVirvjxxncg32.7 42.0-54.0 %Mean Corpuscular Otggpt35.980.0-94.0 fLMean Corpuscular Hemoglobin 30.125.9-34.0 pgMean Corpuscular HGB Conc35.929.9-35.2 g/dLRed Cell Distribution Width11.911.0-15.0 %Platelet Ubyae678983-024 10 3/uLMean Platelet Volume9.89.5- 13.5 fLNeutrophils Percent Auto63.743.0-75.0 %Lymphocytes Percent Auto30.520.5- 60.0 %Monocytes Percent Auto5.31.7-12.0 %Eosinophils Percent Auto0.20.9-7.0 % Basophils Percent Auto0.10.2-2.0 %Immature Granulocytes Pct Auto0.20.0-0.5 % Neutrophils Absolute Auto5.41.4-6.5 10 3/uLLymphocytes Absolute Auto2.61.2-3.8 10 3/uLMonocytes Absolute Auto0.50.3-0.8 10 3/uLEosinophils Absolute Auto0.00.0- 0.7 10 3/uLBasophils Absolute Auto0.00.0-0.1 10 3/uLImmature Granulocytes Abs Auto0.020.00-0.03 10 3/uLPerforming Lab:see noteML - [facility] LB DRUG SCREEN RAPID (URINE) Reviewed date:01/18/2025 10:48:48 AM Interpretation: Performing Lab: Notes/Report: [facility] ,Cannabinoid Screen UrinePOSITIVENEGATIVEPhencyclidine Screen UrineNEGATIVE NEGATIVECocaine [...] Antidepressants): 300 ng/mL Performing Lab:see noteML - [facility] LBPROF CHEM 8 (BAS METB) Reviewed date:01/18/2025 10:48:48 AM Interpretation: Performing Lab: Notes/Report: [facility] ,Mvpgrh801871-274 mmol/LPotassium4.03.5-5.1 mmol/XZyibgdpa69399-125 mmol/LCarbon Kpecmmg38.221.0-32.0 mmol/LAnion Gap12.1Dkccfvl73055-425 mg/dLBlood Urea Iqssuwfy32.07.0-18.0 mg/dLCreatinine1.070.70-1.30 mg/dLEstimated GFR ( Anupama>60>=60 mL/min/1.73m 2Estimated GFR (Non- Tia>60>=60 mL/min/1.73m 2BUN Creatinine Ratio15.6Kussfiq3.08.5-10.1 mg/dLPerforming Lab:see noteML - [facility] LBTroponin I High Sensitivity Reviewed date:01/18/2025 10:48:48 AM Interpretation: Performing Lab: Notes/Report: [facility] ,Troponin I High Sensitivity<4.04.0-76.1 pg/mL CUT-OFF POINTS HAVE BEEN ESTABLISHED BASED ON THE FOURTH UNIVERSAL DEFINITION OF MYOCARDIAL INFARCTION. THE UPPER REFERENCE LIMIT (URL) OF TROPONIN, DEFINED THE 99TH PERCENTILE OF cTnI DISTRIBUTION IN A REFERENCE POPULATION, HAS BEEN CONFIRMED THE DECISION THRESHOLD FOR [place] DIAGNOSIS. 99TH PERCENTILE = 76.2 PG/ML NOTE: HIGH-SENSITIVITY TROPONIN ASSAY IS NOT INTENDED TO BE USED IN ISOLATION BUT SHOULD BE INTERPRETED IN CONJUNCTION WITH OTHER DIAGNOSTIC AND CLINICAL INFORMATION. Performing Lab:see noteML - [facility] UKLPGL-GtZ-2 Ag* Reviewed date:01/18/2025 10:48:48 AM Interpretation: Performing Lab: Notes/Report: [facility] ,SARS-CoV-2 AgNEGATIVENEGATIVE This test has not [...] revoked sooner. Performing Lab:see noteML - [facility] LBXR chest 1V Reviewed date:01/18/2025 10:48:48 AM Interpretation: Performing Lab: Notes/Report: Source Facility: [facility]-[address] [place] [address] [place] [address] XRay Report Signed Patient: CHUCK PACKER MR#: [id number] : 1985 Acct:[id number] Age/Sex: 39 / M ADM Date: 01/17/25 Loc: ER Attending Dr: Ordering Physician: Kacie Rodriguez Date of Service: 01/17/25 Procedure(s): XR chest 1V Accession Number(s): [id number] cc: LEIGHANN SORIANO ; Kacie Rodriguez The [place] [address] Patient Name: CHUCK PACKER MRN: [id number] date: 1985 Sex: M Assigned Patient Location: ER Current Patient Location: ED.MAIN Accession/Order Number: [id number] Exam Date: 01/17/2025 14:02 Report Date: 01/17/2025 14:48 At the request of: KACIE RIZZO Procedure: XR chest 1V PA CHEST: CLINICAL HISTORY: Chest pain COMPARISON: 07/15/2024 Unremarkable cardiac mediastinal silhouette. Lungs clear. No effusion or pneumothorax. XR/XR chest 1V IMPRESSION: NEGATIVE ACUTE PLEURAL-PARENCHYMAL DISEASE. Impression dictated by: Chandler Fields M.D. 01/17/2025 2:48 PM Dictation Location: [place] [address] Electronically authenticated by: [id number] Y Date: 01/17/2025 14:48 Dictated By: Chandler Fields M.D. Signed By: 01/17/25 1450 DD/ 1448 TD/TT: Coal Trammer:Troponin I High Sensitivity Reviewed date:01/18/2025 10:48:48 AM Interpretation: Performing Lab: Notes/Report: [facility] ,Troponin I High Sensitivity4.24.0-76.1 pg/mL CUT-OFF POINTS HAVE BEEN ESTABLISHED BASED ON THE FOURTH UNIVERSAL DEFINITION OF MYOCARDIAL INFARCTION. THE UPPER REFERENCE LIMIT (URL) OF TROPONIN, DEFINED THE 99TH PERCENTILE OF cTnI DISTRIBUTION IN A REFERENCE POPULATION, HAS BEEN CONFIRMED THE DECISION THRESHOLD FOR [place] DIAGNOSIS. 99TH PERCENTILE = 76.2 PG/ML NOTE: HIGH-SENSITIVITY TROPONIN ASSAY IS NOT INTENDED TO BE USED IN ISOLATION BUT SHOULD BE INTERPRETED IN CONJUNCTION WITH OTHER DIAGNOSTIC AND CLINICAL INFORMATION. Performing Lab:see noteML - [facility] LBCBC AUTO DIFF Reviewed date:01/29/2025 09:03:45 AM Interpretation: Performing Lab: Notes/Report: [facility] ,White Blood Count7.74.0-11.0 10 3/uLRed Blood Count5.164.70-6.10 10 6/uL Bwgiactkbf21.814.0-18.0 g/dQDbmkdpemcv12.342.0-54.0 %Mean Corpuscular Uyeyth49.9 80.0-94.0 fLMean Corpuscular Wlzfzoimpr69.625.9-34.0 pgMean Corpuscular HGB Conc 36.529.9-35.2 g/dLRed Cell Distribution Width12.011.0-15.0 %Platelet Iskgh176 150-450 10 3/uLMean Platelet Volume9.89.5-13.5 fLNeutrophils Percent Auto60.1 43.0-75.0 %Lymphocytes Percent Auto32.820.5-60.0 %Monocytes Percent Auto6.11.7- 12.0 %Eosinophils Percent Auto0.40.9-7.0 %Basophils Percent Auto0.30.2-2.0 % Immature Granulocytes Pct Auto0.30.0-0.5 %Neutrophils Absolute Auto4.61.4-6.5 10 3/uLLymphocytes Absolute Auto2.51.2-3.8 10 3/uLMonocytes Absolute Auto0.50.3-0.8 10 3/uLEosinophils Absolute Auto0.00.0-0.7 10 3/uLBasophils Absolute Auto0.00.0- 0.1 10 3/uLImmature Granulocytes Abs Auto0.020.00-0.03 10 3/uLPerforming Lab:see noteML - [facility] LBD-DIMER Reviewed date:01/29/2025 09:03:45 AM Interpretation: Performing Lab: Notes/Report: [facility] ,D Dimer<0.19<=0.59 mg/L FEU Increases in [...] and generalized hospitalization. Performing Lab:see noteML - [facility] LBPROF CHEM 8 (BAS METB) Reviewed date:01/29/2025 09:03:45 AM Interpretation: Performing Lab: Notes/Report: [facility] ,Bfbmgv036658-615 mmol/LPotassium3.93.5-5.1 mmol/WStjwkwax99359-263 mmol/LCarbon Rbbuzir16.021.0-32.0 mmol/LAnion Gap15.4Lvrebwh02694-188 mg/dLBlood Urea Hxnyefot94.07.0-18.0 mg/dLCreatinine0.940.70-1.30 mg/dLEstimated GFR ( Anupama>60>=60 mL/min/1.73m 2Estimated GFR (Non- Tia>60>=60 mL/min/1.73m 2BUN Creatinine Ratio13.4Bekjmxv0.18.5-10.1 mg/dLPerforming Lab:see noteML - [facility] LBTroponin I High Sensitivity Reviewed date:01/29/2025 09:03:45 AM Interpretation: Performing Lab: Notes/Report: [facility] ,Troponin I High Sensitivity4.94.0-76.1 pg/mL CUT-OFF POINTS HAVE BEEN ESTABLISHED BASED ON THE FOURTH UNIVERSAL DEFINITION OF MYOCARDIAL INFARCTION. THE UPPER REFERENCE LIMIT (URL) OF TROPONIN, DEFINED THE 99TH PERCENTILE OF cTnI DISTRIBUTION IN A REFERENCE POPULATION, HAS BEEN CONFIRMED THE DECISION THRESHOLD FOR [place] DIAGNOSIS. 99TH PERCENTILE = 76.2 PG/ML NOTE: HIGH-SENSITIVITY TROPONIN ASSAY IS NOT INTENDED TO BE USED IN ISOLATION BUT SHOULD BE INTERPRETED IN CONJUNCTION WITH OTHER DIAGNOSTIC AND CLINICAL INFORMATION. Performing Lab:see noteML - [facility] LBECG 12 lead Reviewed date:01/29/2025 03:35:15 PM Interpretation: Performing Lab: Notes/Report: Source Facility: [place] [address] [place] [address] Electrocardiograph Report Signed Patient: CHUCK PACKER MR#: [id number] : 1985 Acct:[id number] Age/Sex: 39 / M ADM Date: 01/28/25 Loc: ER Attending Dr: Ordering Physician: Leyda Barrientos M.D. 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 Signed By: 01/29/25 1514 DD/ 1224 TD/TT: Coal Trammer:NETTIE chest 1V Reviewed date:01/29/2025 09:03:45 AM Interpretation: Performing Lab: Notes/Report: Source Facility: [facility]-[address] [place] [address] [place] [address] XRay Report Signed Patient: CHUCK PACKER MR#: [id number] : 1985 Acct:[id number] Age/Sex: 39 / M ADM Date: 01/28/25 Loc: ER Attending Dr: Ordering Physician: Leyda Barrientos M.D. Date of Service: 01/28/25 Procedure(s): XR chest 1V Accession Number(s): [id number] cc: LEIGHANN SORIANO ; Leyda Barrientos M.D. [facility] [place] [address] Patient Name: CHUCK PACKER MRN: [facility]:[id number] date: 1985 Sex: M Assigned Patient Location: ED.MAIN Current Patient Location: ED.MAIN Accession/Order Number: [id number] Exam Date: 01/28/2025 13:33 Report Date: 01/28/2025 [...] Enamorado M.D. 01/28/2025 2:07 PM Dictation Location: [place] [address] Electronically authenticated by: [id number] Y Date: 01/28/2025 14:07 Dictated By: Antione Enamorado M.D. Signed By: 01/28/25 1410 DD/ 1407 TD/TT: Coal Trammer:DRUG SCREEN RAPID (URINE) Reviewed date:03/21/2025 08:53:55 PM Interpretation: Performing Lab: Notes/Report: [facility] ,Cannabinoid Screen UrinePOSITIVENEGATIVEPhencyclidine Screen UrineNEGATIVE NEGATIVECocaine [...] 300 ng/mL Performing Lab:see noteML - [facility] LBPROF 14(COMP METB) Reviewed date:03/21/2025 08:53:56 PM Interpretation: Performing Lab: Notes/Report: [facility] ,Nlzocv105220-580 mmol/LPotassium3.83.5-5.1 mmol/OQseiuilu61836-954 mmol/LCarbon Ejdlfln10.321.0-32.0 mmol/LAnion Gap12.0Wcjuesn64913-054 mg/dLBlood Urea Owsclpbh97.07.0-18.0 mg/dLCreatinine1.430.70-1.30 mg/dLEstimated GFR ( Anupama>60>=60 mL/min/1.73m 2Estimated GFR (Non- Ame56>=60 mL/min/1.73m 2 BUN Creatinine Ratio9.5Ynjuizc1.78.5-10.1 mg/dLBilirubin Total0.50.2-1.0 mg/dL Aspartate Amino Mvszjroyicq4392-37 U/LAlanine Jnfrxskmnsedanbc3400-02 U/L Alkaline Rvsdrzvrgce8979-744 U/LTotal Protein8.06.4-8.2 g/dLAlbumin Level3.53.4- 5.0 g/dLGlobulin4.5Albumin Globulin Ratio0.8Performing Lab:see note - [facility] LBUA (CLEAN or CATCH) CONTRIBUTION SOLICITOR or MICRO IF IND. Reviewed date:03/21/2025 08:53:56 PM Interpretation: Performing Lab: Notes/Report: [facility] ,Color UrineYELLOWYELLOWClarity UrineCLEARCLEARSpecific [place] Urine1.025 1.005-1.025pH Urine6.05.0-9.0Protein UrineNEGATIVENEG/TRACE mg/dLGlucose Urine UA>=1000NEGATIVE mg/dLBilirubin UrineNEGATIVENEGATIVEKetones UrineTRACENEGATIVE mg/dLBlood UrineSMALLNEGATIVENitrite UrineNEGATIVENEGATIVEUrobilinogen Urine0.2 0.2-1.0 EU/dLLeukocyte Esterase UrineNEGATIVENEGATIVEUrine Microscopic Indicated YESPerforming Lab:see noteML - [facility] LBTroponin I High Sensitivity Reviewed date:03/21/2025 08:53:56 PM Interpretation: Performing Lab: Notes/Report: [facility] ,Troponin I High Sensitivity<4.04.0-76.1 pg/mL CUT-OFF POINTS HAVE BEEN ESTABLISHED BASED ON THE FOURTH UNIVERSAL DEFINITION OF MYOCARDIAL INFARCTION. THE UPPER REFERENCE LIMIT (URL) OF TROPONIN, DEFINED THE 99TH PERCENTILE OF cTnI DISTRIBUTION IN A REFERENCE POPULATION, HAS BEEN CONFIRMED THE DECISION THRESHOLD FOR [place] DIAGNOSIS. 99TH PERCENTILE = 76.2 PG/ML NOTE: HIGH-SENSITIVITY TROPONIN ASSAY IS NOT INTENDED TO BE USED IN ISOLATION BUT SHOULD BE INTERPRETED IN CONJUNCTION WITH OTHER DIAGNOSTIC AND CLINICAL INFORMATION. Performing Lab:see noteML - [facility] LBECG 12 lead Reviewed date:03/27/2025 08:15:33 AM Interpretation: Performing Lab: Notes/Report: Source Facility: [facility]-[address] [place] [address] [place] [address] Electrocardiograph Report Signed Patient: CHUCK PACKER MR#: [id number] : 1985 Acct:[id number] Age/Sex: 39 / M ADM Date: 03/21/25 Loc: ER Attending Dr: Ordering Physician: Kacie Rodriguez Date of Service: 03/21/25 Procedure(s): ECG 12 lead Accession Number(s): [id number] cc: [facility] Test Date: 2025-03-21 Pat Name: CHUCK PACKER Department: Room: - 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 Measurements Intervals [place] Rate: 109 P: 58 [place]: 120 QRS: [...] Signed By: 03/22/25 0604 DD/ 1739 TD/TT: Coal Trammer:XR chest 1V Reviewed date:03/21/2025 08:53:56 PM Interpretation: Performing Lab: Notes/Report: Source Facility: [place] [address] XRay Report Signed Patient: CHUCK PACKER MR#: [id number] : 1985 Acct:[id number] Age/Sex: 39 / M ADM Date: Loc: ER Attending Dr: Ordering Physician: Kacie Rodriguez Date of Service: 03/21/25 Procedure(s): XR chest 1V Accession Number(s): [id number] cc: LEIGHANN SORIANO ; Kacie Rodriguez [place] [id number] Patient Name: CHUCK PACKER MRN: [id number] date: 1985 Sex: M Assigned Patient Location: ER Current Patient Location: ER Accession/Order Number: [id number] Exam Date: 03/21/2025 18:14 Report Date: 03/21/2025 [...] Chavez M.D. 03/21/2025 6:23 PM Dictation Location: [place] [address] Electronically authenticated by: [id number] Y Date: 03/21/2025 18:23 Dictated By: Jil Chavez D.O. Signed By: 03/21/251824 DD/ 22 TD/TT: Coal Trammer:Urine Culture - [facility] Reviewed date:04/16/2025 08:26:30 AM Interpretation: Performing Lab: Notes/Report: [facility] ,Urine Culture - FRMCSee Below For Report Urine Culture - [facility] SEEFRMC [facility] RESULT^[facility] RESULT Urine Culture - FRMCSEEN SEE SCANNED REPORT, NORMAL^SEE SCANNED REPORT, NORMAL Urine Culture - [facility] SEE[facility]MC [facility] RESULT^[facility] RESULT Performing Lab:see noteML - [facility] LBECG 12 lead Reviewed date:04/12/2025 09:52:04 AM Interpretation: Performing Lab: Notes/Report: Source Facility: [place] [address] Electrocardiograph Report Signed Patient: CHUCK PACKER MR#: [id number] : 1985 Acct:[id number] Age/Sex: 39 / M ADM Date: 04/11/25 Loc: ER Attending Dr: Ordering Physician: Leyda Barrientos M.D. 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 Measurements Intervals [place] Rate: 93 P: 42 [place]: 124 QRS: 40 QRSD: 76 T: 49 QT: 318 QTc: 369 Interpretive Statements 1100 Sinus rhythm 4068 Nonspecific Twave abnormality 9130 borderline ECG Compared to ECG 03/21/2025 17:39:38 Sinus tachycardia no longer present ST (T wave) deviation no longer present Electronically Signed On 04-11-2025 14:21:09 EST by JITENDRA FOOTE M.D. Dictated By: JITENDRA FOOTE Signed By: 04/11/25 1421 DD/ 1227 TD/TT: Coal Trammer:XR chest 1V Reviewed date:04/12/2025 09:52:04 AM Interpretation: Performing Lab: Notes/Report: Source Facility: [place] [address] XRay Report Signed Patient: CHUCK PACKER MR#: [id number] : 1985 Acct:[id number] Age/Sex: 39 / M ADM Date: 04/11/25 Loc: ER Attending Dr: Ordering Physician: Leyda Barrientos M.D. Date of Service: 04/11/25 Procedure(s): XR chest 1V Accession Number(s): [id number] cc: LEIGHANN SORIANO ; Leyda Barrientos M.D. [place] [address] Patient Name: HCUCK PACKER MRN: [id number] date: 1985 Sex: M Assigned Patient Location: ER Current Patient Location: ED.MAIN Accession/Order Number: [id number] Exam Date: 04/11/2025 12:34 Report Date: 04/11/2025 [...] Luther M.D. 04/11/2025 12:55 PM Dictation Location: [place] [address] Electronically authenticated by: [id number] Y Date: 04/11/2025 12:55 Dictated By: Almaz Luther M.D. Signed By: 04/11/25 1257 DD/ 1255 TD/TT: Coal Trammer:CBC AUTO DIFF Reviewed date:04/17/2025 09:41:27 AM Interpretation: Performing Lab: Notes/Report: [facility] ,White Blood Count5.34.0-11.0 10 3/uLRed Blood Count5.394.70-6.10 10 6/uL Sphkhbekeo67.214.0-18.0 g/yHWbyuqsbtxm32.342.0-54.0 %Mean Corpuscular Sjtfow37.0 80.0-94.0 fLMean Corpuscular Ulbzykphba34.125.9-34.0 pgMean Corpuscular HGB Conc 35.829.9-35.2 g/dLRed Cell Distribution Width12.111.0-15.0 %Platelet Lxsks571 150-450 10 3/uLMean Platelet Volume9.79.5-13.5 fLNeutrophils Percent Auto58.6 43.0-75.0 %Lymphocytes Percent Auto34.420.5-60.0 %Monocytes Percent Auto6.21.7- 12.0 %Eosinophils Percent Auto0.40.9-7.0 %Basophils Percent Auto0.20.2-2.0 % Immature Granulocytes Pct Auto0.20.0-0.5 %Neutrophils Absolute Auto3.11.4-6.5 10 3/uLLymphocytes Absolute Auto1.81.2-3.8 10 3/uLMonocytes Absolute Auto0.30.3-0.8 10 3/uLEosinophils Absolute Auto0.00.0-0.7 10 3/uLBasophils Absolute Auto0.00.0- 0.1 10 3/uLImmature Granulocytes Abs Auto0.010.00-0.03 10 3/uLPerforming Lab:see noteML - [facility] LBPROF CHEM 8 (BAS METB) Reviewed date:04/17/2025 09:41:27 AM Interpretation: Performing Lab: Notes/Report: [facility] ,Ateblv407502-557 mmol/LPotassium3.53.5-5.1 mmol/QRrmieppy23903-719 mmol/LCarbon Odqsxhp87.521.0-32.0 mmol/LAnion Gap12.1Xyfcibq15254-965 mg/dLBlood Urea Swbzdvup46.07.0-18.0 mg/dLCreatinine1.120.70-1.30 mg/dLEstimated GFR ( Anupama>60>=60 mL/min/1.73m 2Estimated GFR (Non- Tia>60>=60 mL/min/1.73m 2BUN Creatinine Ratio9.0Ecyyxku3.28.5-10.1 mg/dLPerforming Lab:see note - [facility] LBTroponin I High Sensitivity Reviewed date:04/17/2025 09:41:27 AM Interpretation: Performing Lab: Notes/Report: [facility] ,Troponin I High Sensitivity5.74.0-76.1 pg/mL CUT-OFF POINTS HAVE BEEN ESTABLISHED BASED ON THE FOURTH UNIVERSAL DEFINITION OF MYOCARDIAL INFARCTION. THE UPPER REFERENCE LIMIT (URL) OF TROPONIN, DEFINED THE 99TH PERCENTILE OF cTnI DISTRIBUTION IN A REFERENCE POPULATION, HAS BEEN CONFIRMED THE DECISION THRESHOLD FOR [place] DIAGNOSIS. 99TH PERCENTILE = 76.2 PG/ML NOTE: HIGH-SENSITIVITY TROPONIN ASSAY IS NOT INTENDED TO BE USED IN ISOLATION BUT SHOULD BE INTERPRETED IN CONJUNCTION WITH OTHER DIAGNOSTIC AND CLINICAL INFORMATION. Performing Lab:see note - [facility] LBECG 12 lead Reviewed date:04/18/2025 08:33:51 AM Interpretation: Performing Lab: Notes/Report: Source Facility: [facility]-[address] [place] [address] Electrocardiograph Report Signed Patient: CHUCK PACKER MR#: [id number] : 1985 Acct:[id number] Age/Sex: 39 / M ADM Date: 04/16/25 Loc: ER Attending Dr: Ordering Physician: Kacie Rodriguez Date of Service: 04/16/25 Procedure(s): ECG 12 lead Accession Number(s): [id number] cc: [facility] Test Date: 2025-04-16 Pat Name: CHUCK PACKER Department: Room: - 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 Signed By: 04/17/25 1643 DD/ 1804 TD/TT: Coal Trammer:INFLUENZA A AND B AG Reviewed date:04/23/2025 11:35:55 AM Interpretation: Performing Lab: Notes/Report: [facility] ,Influenza Virus A AntigenNegative Negative for [...] the test. Performing Lab:see noteML - [facility] ERFWNL-QcI-6 Ag* Reviewed date:04/23/2025 11:35:55 AM Interpretation: Performing Lab: Notes/Report: [facility] ,SARS-CoV-2 AgNEGATIVENEGATIVE This test has not [...] revoked sooner. Performing Lab:see noteML - [facility] LBECG 12 lead (Not yet reviewed by provider) Interpretation: Performing Lab: Notes/Report: Source Facility: [facility]-[address] [place] [address] [place] [address] Electrocardiograph Report Draft Patient: CHUCK PACKER MR#: [id number] : 1985 Acct:[id number] Age/Sex: 39 / M ADM Date: Loc: ER Attending Dr: Ordering Physician: Giorgio Hernandez D.O. 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1985 Requested By: Giorgio Hernandez Order Number: [id number] Reading MD: Measurements Intervals [place] Rate: 96 P: 54 [place]: 116 QRS: 48 QRSD: 76 T: 28 QT: 328 QTc: 382 Interpretive Statements 1100 Sinus rhythm 2210 Short [place] interval 4068 Nonspecific Twave abnormality 9150 abnormal ECG No previous ECG available for comparison Dictated By: Moises Mata Signed By: DD/ 2240 TD/TT: Coal Trammer:MAYITO RANDOM W or MICROSCOPIC Reviewed date:04/12/2025 09:52:04 AM Interpretation: Performing Lab: Notes/Report: [facility] ,Color UrineYELLOWYELLOWClarity UrineCLEARCLEARSpecific [place] Urine1.025 1.005-1.025pH Urine6.05.0-9.0Protein UrineTRACENEG/TRACE mg/dLGlucose Urine UA NEGATIVENEGATIVE mg/dLBilirubin UrineNEGATIVENEGATIVEKetones UrineTRACENEGATIVE mg/dLBlood UrineSMALLNEGATIVENitrite UrineNEGATIVENEGATIVEUrobilinogen Urine0.2 0.2-1.0 EU/dLLeukocyte Esterase UrineTRACENEGATIVEWBC Urine2-5NONE SEEN #/HPFRBC Urine0-20-2 #/HPFBacteria UrineMODERATENONE SEEN #/HPFMucus UrineMODERATENONE SEENSquamous Epithelial Cell UrineRARENONE/RARE #/LPFCrystals Seen?None SeenNone Seen #/HPFCast Seen?SEENNONE SEEN #/LPFHyaline Casts UrineRAREUrine Culture IndicatedYES-FRMCPerforming Lab:see noteML - [facility] LBPROF CHEM 8 (BAS METB) Reviewed date:04/12/2025 09:52:04 AM Interpretation: Performing Lab: Notes/Report: [facility] ,Tqwiaz569224-811 mmol/LPotassium3.83.5-5.1 mmol/OKklvdarc12087-119 mmol/LCarbon Sncfoyy69.921.0-32.0 mmol/LAnion Gap14.2Olyltan78118-197 mg/dLBlood Urea Lbuoeyjx09.07.0-18.0 mg/dLCreatinine1.180.70-1.30 mg/dLEstimated GFR ( Anupama>60>=60 mL/min/1.73m 2Estimated GFR (Non- Tia>60>=60 mL/min/1.73m 2BUN Creatinine Ratio9.9Durdwaf1.38.5-10.1 mg/dLPerforming Lab:see noteML - [facility] LBCBC AUTO DIFF Reviewed date:04/12/2025 09:52:04 AM Interpretation: Performing Lab: Notes/Report: [facility] ,White Blood Count7.14.0-11.0 10 3/uLRed Blood Count5.624.70-6.10 10 6/uL Zpeledpfub60.114.0-18.0 g/zUOkytumxrel53.342.0-54.0 %Mean Corpuscular Prslvz63.2 80.0-94.0 fLMean Corpuscular Ymqufhvjim94.425.9-34.0 pgMean Corpuscular HGB Conc 36.229.9-35.2 g/dLRed Cell Distribution Width12.011.0-15.0 %Platelet Fswbe262 150-450 10 3/uLMean Platelet Volume9.89.5-13.5 fLNeutrophils Percent Auto67.3 43.0-75.0 %Lymphocytes Percent Auto26.920.5-60.0 %Monocytes Percent Auto5.01.7- 12.0 %Eosinophils Percent Auto0.30.9-7.0 %Basophils Percent Auto0.10.2-2.0 % Immature Granulocytes Pct Auto0.40.0-0.5 %Neutrophils Absolute Auto4.81.4-6.5 10 3/uLLymphocytes Absolute Auto1.91.2-3.8 10 3/uLMonocytes Absolute Auto0.40.3-0.8 10 3/uLEosinophils Absolute Auto0.00.0-0.7 10 3/uLBasophils Absolute Auto0.00.0- 0.1 10 3/uLImmature Granulocytes Abs Auto0.030.00-0.03 10 3/uLPerforming Lab:see noteML - [facility] LBXR abdomen 1V Reviewed date:04/02/2025 08:41:29 AM Interpretation: Performing Lab: Notes/Report: Source Facility: [place] [address] XRay Report Signed Patient: CHUCK PACKER MR#: [id number] : 1985 Acct:[id number] Age/Sex: 39 / M ADM Date: 04/01/25 Loc: ER Attending Dr: Ordering Physician: Leyda Barrientos M.D. Date of Service: 04/01/25 Procedure(s): XR abdomen 1V Accession Number(s): [id number] cc: LEIGHANN SORIANO ; Leyda Barrientos M.D. [place] [id number] Patient Name: CHUCK PACKER MRN: [id number] date: 1985 Sex: M Assigned Patient Location: ER Current Patient Location: ER Accession/Order Number: [id number] Exam Date: 04/01/2025 12:20 Report Date: 04/01/2025 [...] Enamorado M.D. 04/01/2025 12:35 PM Dictation Location: [place] [address] Electronically authenticated by: [id number] Y Date: 04/01/2025 12:35 Dictated By: Antione Enamorado M.D. Signed By: 04/01/25 1238 DD/ 1235 TD/TT: Coal Trammer:Chlamydia/GC Amplification Reviewed date:03/27/2025 08:15:33 AM Interpretation: Performing Lab: Notes/Report: Urine [facility] ,Chlamydia trachomatis, NAANegativeNegativeNeisseria gonorrhoeae, NAANegative Negative Performed at: = - [facility] [id number] Dietary Aide Teacher: Ava Max MD, Phone: [phone] Performing Lab:see noteLC - [facility] LBTSH Reviewed date:03/21/2025 08:53:56 PM Interpretation: Performing Lab: Notes/Report: [facility] ,Thyroid Stimulating Hormone1.2350.358-3.740 uIU/mLPerforming Lab:see noteML - [facility] LBLIPASE Reviewed date:03/21/2025 08:53:56 PM Interpretation: Performing Lab: Notes/Report: [facility] ,Uzfvhw45.016.0-77.0 U/LPerforming Lab:see noteML - [facility] LBCBC AUTO DIFF Reviewed date:03/21/2025 08:53:55 PM Interpretation: Performing Lab: Notes/Report: [facility] ,White Blood Count6.94.0-11.0 10 3/uLRed Blood Count5.234.70-6.10 10 6/uL Xcovevhezn40.914.0-18.0 g/aHJfilaasaat23.742.0-54.0 %Mean Corpuscular Vioeib62.5 80.0-94.0 fLMean Corpuscular Pamujadtyv12.425.9-34.0 pgMean Corpuscular HGB Conc 35.629.9-35.2 g/dLRed Cell Distribution Width12.111.0-15.0 %Platelet Vvrge655 150-450 10 3/uLMean Platelet Vtjihs11.29.5-13.5 fLNeutrophils Percent Auto63.3 43.0-75.0 %Lymphocytes Percent Auto30.820.5-60.0 %Monocytes Percent Auto4.91.7- 12.0 %Eosinophils Percent Auto0.60.9-7.0 %Basophils Percent Auto0.10.2-2.0 % Immature Granulocytes Pct Auto0.30.0-0.5 %Neutrophils Absolute Auto4.41.4-6.5 10 3/uLLymphocytes Absolute Auto2.11.2-3.8 10 3/uLMonocytes Absolute Auto0.30.3-0.8 10 3/uLEosinophils Absolute Auto0.00.0-0.7 10 3/uLBasophils Absolute Auto0.00.0- 0.1 10 3/uLImmature Granulocytes Abs Auto0.020.00-0.03 10 3/uLPerforming Lab:see noteML - [facility] LBUA Micro, reflex to culture Reviewed date:03/19/2025 10:38:37 AM Interpretation: Performing Lab: Notes/Report: [facility] ,Color UrineYELLOWYELLOWClarity UrineCLEARCLEARSpecific [place] Urine1.025 1.005-1.025pH Urine6.05.0-9.0Protein UrineTRACENEG/TRACE mg/dLGlucose Urine UA NEGATIVENEGATIVE mg/dLBilirubin UrineNEGATIVENEGATIVEKetones UrineTRACENEGATIVE mg/dLBlood UrineSMALLNEGATIVENitrite UrineNEGATIVENEGATIVEUrobilinogen Urine0.2 0.2-1.0 EU/dLLeukocyte Esterase UrineNEGATIVENEGATIVEWBC UrineNONE SEENNONE SEEN #/HPFRBC Urine0-20-2 #/HPFBacteria UrineTRACENONE SEEN #/HPFMucus UrineTRACENONE SEENSquamous Epithelial Cell UrineRARENONE/RARE #/LPFCrystals Seen?None SeenNone Seen #/HPFCast Seen?NONE SEENNONE SEEN #/LPFPerforming Lab:see note - [facility] LBDRUG SCREEN RAPID (URINE) Reviewed date:03/19/2025 10:38:37 AM Interpretation: Performing Lab: Notes/Report: [facility] ,Cannabinoid Screen UrinePOSITIVENEGATIVEPhencyclidine Screen UrineNEGATIVE NEGATIVECocaine [...] Antidepressants): 300 ng/mL Performing Lab:see noteML - [facility] LBECG 12 lead Reviewed date:01/18/2025 10:48:48 AM Interpretation: Performing Lab: Notes/Report: Source Facility: [place] [address] [place] [address] Electrocardiograph Report Signed Patient: CHUCK PACKER MR#: [id number] : 1985 Acct:[id number] Age/Sex: 39 / M ADM Date: 01/17/25 Loc: ER Attending Dr: Ordering Physician: Kacie Rodriguez Date of Service: 01/17/25 Procedure(s): ECG 12 lead Accession Number(s): [id number] cc: [facility] Test Date: 2025-01-17 Pat Name: CHUCK PACKER Department: Room: - 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 Measurements Intervals [place] Rate: 94 P: 54 [place]: 130 QRS: 44 QRSD: 74 T: 49 QT: 342 QTc: 394 Interpretive Statements [address] elevation, probably early repolarization 9130 borderline ECG Compared to ECG 07/30/2024 14:12:13 ST (T wave) deviation now present Early repolarization now present Left ventricular hypertrophy no longer present Electronically Signed On 01-17-2025 17:53:50 EDT by JITENDRA FOOTE M.D. Dictated By: JITENDRA FOOTE Signed By: 01/17/25 1754 DD/ 1339 TD/TT: Coal Trammer:D-DIMER Reviewed date:01/18/2025 10:48:48 AM Interpretation: Performing Lab: Notes/Report: [facility] ,D Dimer0.20<=0.59 mg/L FEU Increases in [...] generalized hospitalization. Performing Lab:see noteML - [facility] LBECG 12 lead Reviewed date:08/06/2024 09:47:04 PM Interpretation: Performing Lab: Notes/Report: Source Facility: [facility]-[address] [place] [address] [place] [address] Electrocardiograph Report Signed Patient: CHUCK PACKER MR#: [id number] : 1985 Acct:[id number] Age/Sex: 38 / M ADM Date: 07/30/24 Loc: ER Attending Dr: Ordering Physician: Leyda Barrientos M.D. 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 Measurements Intervals [place] Rate: 95 P: 44 [place]: 120 QRS: [...] FOOTE Signed By: 07/30/242019 DD/ 11 TD/TT: Coal Trammer:PROF [facility] Reviewed date:08/06/2024 09:47:04 PM Interpretation: Performing Lab: Notes/Report: [facility] ,Juyhvo208444-084 mmol/LPotassium4.03.5-5.1 mmol/NOcxlknec22009-550 mmol/LCarbon Keulvup58.321.0-32.0 mmol/LAnion Gap12.6Htirmxp51457-804 mg/dLBlood Urea Gmrjoeja05.07.0-18.0 mg/dLCreatinine1.100.70-1.30 mg/dLEstimated GFR ( Anupama>60>=60 mL/min/1.73m 2Estimated GFR (Non- Tia>60>=60 mL/min/1.73m 2BUN Creatinine Ratio11.6Zexstqp8.98.5-10.1 mg/dLPerforming Lab:see noteML - [facility] LBCBC AUTO DIFF Reviewed date:08/06/2024 09:47:04 PM Interpretation: Performing Lab: Notes/Report: [facility] ,White Blood Count7.44.0-11.0 10 3/uLRed Blood Count4.934.70-6.10 10 6/uL Yqaxacspcg58.014.0-18.0 g/gBWwylhtbrib33.142.0-54.0 %Mean Corpuscular Wnbldq24.4 80.0-94.0 fLMean Corpuscular Vvtgydvhaf11.425.9-34.0 pgMean Corpuscular HGB Conc 35.629.9-35.2 g/dLRed Cell Distribution Width12.611.0-15.0 %Platelet Mfsvz731 150-450 10 3/uLMean Platelet Volume9.69.5-13.5 fLNeutrophils Percent Auto69.9 43.0-75.0 %Lymphocytes Percent Auto23.820.5-60.0 %Monocytes Percent Auto5.41.7- 12.0 %Eosinophils Percent Auto0.30.9-7.0 %Basophils Percent Auto0.30.2-2.0 % Immature Granulocytes Pct Auto0.30.0-0.5 %Neutrophils Absolute Auto5.21.4-6.5 10 3/uLLymphocytes Absolute Auto1.81.2-3.8 10 3/uLMonocytes Absolute Auto0.40.3-0.8 10 3/uLEosinophils Absolute Auto0.00.0-0.7 10 3/uLBasophils Absolute Auto0.00.0- 0.1 10 3/uLImmature Granulocytes Abs Auto0.020.00-0.03 10 3/uLPerforming Lab:see noteML - [facility] LBECG 12 lead Reviewed date:04/23/2025 09:06:27 AM Interpretation: Performing Lab: Notes/Report: Source Facility: [facility]-[address] [place] [address] [place] [address] Electrocardiograph Report Signed Patient: CHUCK PACKER MR#: [id number] : 1985 Acct:[id number] Age/Sex: 39 / M ADM Date: 04/20/25 Loc: ER Attending Dr: Ordering Physician: Marcela Christensen Date of Service: 04/20/25 Procedure(s): ECG 12 lead Accession Number(s): [id number] cc: [facility] Test Date: 2025-04-20 Pat Name: CHUCK PACKER Department: Room: - 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 Measurements Intervals [place] Rate: 86 P: 50 [place]: 132 QRS: 38 QRSD: 82 T: 50 QT: 350 QTc: 393 Interpretive Statements 1100 Sinus rhythm ARTIFACT IN LEAD(S) 9110 normal ECG Compared to ECG 04/16/2025 18:04:48 ST (T wave) deviation no longer present Electronically Signed On 04-20-2025 18:45:14 EST by JITENDRA FOOTE M.D. Dictated By: JITENDRA FOOTE Signed By: 04/20/25 1845 DD/ 1026 TD/TT: Coal Trammer:UA (CLEAN or CATCH) CONTRIBUTION SOLICITOR or MICRO IF IND. Reviewed date:04/17/2025 09:41:27 AM Interpretation: Performing Lab: Notes/Report: [facility] ,Color UrineLT. YELLOWYELLOWClarity UrineCLEARCLEARSpecific [place] Urine1.010 1.005-1.025pH Urine6.55.0-9.0Protein UrineNEGATIVENEG/TRACE mg/dLGlucose Urine UANEGATIVENEGATIVE mg/dLBilirubin UrineNEGATIVENEGATIVEKetones UrineNEGATIVE NEGATIVE mg/dLBlood UrineTRACE-INEGATIVENitrite UrineNEGATIVENEGATIVE Urobilinogen Urine1.00.2-1.0 EU/dLLeukocyte Esterase UrineTRACENEGATIVEUrine Microscopic IndicatedYESPerforming Lab:see noteML - [facility] LBCT head/brain wo con Reviewed date:03/19/2025 10:38:37 AM Interpretation: Performing Lab: Notes/Report: Source Facility: [facility]-[address], [place] [address] [address] [address] Scan Report Signed Patient: CHUCK PACKER MR#: [id number] : 1985 Acct:[id number] Age/Sex: 39 / M ADM Date: Loc: ER Attending Dr: Ordering Physician: Jil Benitez Date of Service: 03/17/25 Procedure(s): CT head/brain wo con Accession Number(s): [id number] cc: LEIGHANN SORIANO [place] [address] Patient Name: CHUCK PACKER MRN: [id number] date: 1985 Sex: M Assigned Patient Location: ER Current Patient Location: ER Accession/Order Number: [id number] Exam Date: 03/17/2025 13:00 Report Date: 03/17/2025 [...] Chavez M.D. 03/17/2025 1:45 PM Dictation Location: [place] [address] Electronically authenticated by: [id number] Y Date: 03/17/2025 13:45 Dictated By: Jil Chavez D.O. Signed By: 03/17/25 1347 DD/ 44 TD/TT: Coal Trammer:XR chest 2V Reviewed date:03/19/2025 10:38:37 AM Interpretation: Performing Lab: Notes/Report: Source Facility: [place] [address] XRay Report Signed Patient: CHUCK PACKER MR#: [id number] : 1985 Acct:[id number] Age/Sex: 39 / M ADM Date: Loc: ER Attending Dr: Ordering Physician: Jil Benitez Date of Service: 03/17/25 Procedure(s): XR chest 2V Accession Number(s): [id number] cc: LEIGHANN SORIANO ; Jil Benitez [place] [address] Patient Name: CHUCK PACKER MRN: [id number] date: 1985 Sex: M Assigned Patient Location: ER Current Patient Location: ER Accession/Order Number: [id number] Exam Date: 03/17/2025 13:00 Report Date: 03/17/2025 [...] Chavez M.D. 03/17/2025 1:46 PM Dictation Location: [place] [address] Electronically authenticated by: [id number] Y Date: 03/17/2025 13:46 Dictated By: Jil Chavez D.O. 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 Measurements Intervals [place] Rate: 89 P: 44 [place]: 138 QRS: 26 QRSD: 80 T: 46 QT: 334 QTc: 381 Interpretive Statements 1100 Sinus rhythm [address] elevation [address] [place] abnormality 9130 borderline ECG Compared to ECG 01/28/2025 12:24:48 No significant changes Electronically Signed On 03-17-2025 12:57:47 EST by JITENDRA FOOTE M.D. Dictated By: JITENDRA FOOTE Signed By: 03/17/25 1258 DD/ 1232 TD/TT: Coal Trammer:SARS-CoV-2 Ag* Reviewed date:03/19/2025 10:38:37 AM Interpretation: Performing Lab: Notes/Report: [facility] ,SARS-CoV-2 AgNEGATIVENEGATIVE This test has not [...] is revoked sooner. Performing Lab:see noteML - [facility] LBTroponin I High Sensitivity Reviewed date:03/19/2025 10:38:37 AM Interpretation: Performing Lab: Notes/Report: [facility] ,Troponin I High Sensitivity5.34.0-76.1 pg/mL CUT-OFF POINTS HAVE BEEN ESTABLISHED BASED ON THE FOURTH UNIVERSAL DEFINITION OF MYOCARDIAL INFARCTION. THE UPPER REFERENCE LIMIT (URL) OF TROPONIN, DEFINED THE 99TH PERCENTILE OF cTnI DISTRIBUTION IN A REFERENCE POPULATION, HAS BEEN CONFIRMED THE DECISION THRESHOLD FOR [place] DIAGNOSIS. 99TH PERCENTILE = 76.2 PG/ML NOTE: HIGH-SENSITIVITY TROPONIN ASSAY IS NOT INTENDED TO BE USED IN ISOLATION BUT SHOULD BE INTERPRETED IN CONJUNCTION WITH OTHER DIAGNOSTIC AND CLINICAL INFORMATION. Performing Lab:see noteML - [facility] LBPROF 14(COMP METB) Reviewed date:03/19/2025 10:38:37 AM Interpretation: Performing Lab: Notes/Report: [facility] ,Jyqyfi892564-583 mmol/LPotassium3.93.5-5.1 mmol/WDcrfvszm08284-741 mmol/LCarbon Cafzsbp86.321.0-32.0 mmol/LAnion Gap13.3Dpnibqv41897-647 mg/dLBlood Urea Gvbtzpcp25.07.0-18.0 mg/dLCreatinine1.030.70-1.30 mg/dLEstimated GFR ( Anupama>60>=60 mL/min/1.73m 2Estimated GFR (Non- Tia>60>=60 mL/min/1.73m 2BUN Creatinine Ratio13.9Jxnreyf0.38.5-10.1 mg/dLBilirubin Total0.70.2-1.0 mg/dL Aspartate Amino Zsaakunobda9762-30 U/LAlanine Azatchlzyigryxzp7093-68 U/L Alkaline Nkfqqdigogd0484-642 U/LTotal Protein8.66.4-8.2 g/dLAlbumin Level3.93.4- 5.0 g/dLGlobulin4.7Albumin Globulin Ratio0.8Performing Lab:see noteML - [facility] LBLIPASE Reviewed date:03/19/2025 10:38:37 AM Interpretation: Performing Lab: Notes/Report: [facility] ,Fifodx53.016.0-77.0 U/LPerforming Lab:see noteML - [facility] LB INFLUENZA A AND B AG Reviewed date:03/19/2025 10:38:37 AM Interpretation: Performing Lab: Notes/Report: [facility] ,Influenza Virus A AntigenNegative Negative for [...] the test. Performing Lab:see noteML - [facility] LBCBC AUTO DIFF Reviewed date:03/19/2025 10:38:37 AM Interpretation: Performing Lab: Notes/Report: [facility] ,White Blood Count7.14.0-11.0 10 3/uLRed Blood Count5.474.70-6.10 10 6/uL Zbrupfptnc51.614.0-18.0 g/eMAzonosyqms04.142.0-54.0 %Mean Corpuscular Vfaaug32.3 80.0-94.0 fLMean Corpuscular Atvwhhhnti41.325.9-34.0 pgMean Corpuscular HGB Conc 36.029.9-35.2 g/dLRed Cell Distribution Width12.111.0-15.0 %Platelet Mggug435 150-450 10 3/uLMean Platelet Ioxbgk85.19.5-13.5 fLNeutrophils Percent Auto58.3 43.0-75.0 %Lymphocytes Percent Auto35.320.5-60.0 %Monocytes Percent Auto5.61.7- 12.0 %Eosinophils Percent Auto0.40.9-7.0 %Basophils Percent Auto0.10.2-2.0 % Immature Granulocytes Pct Auto0.30.0-0.5 %Neutrophils Absolute Auto4.11.4-6.5 10 3/uLLymphocytes Absolute Auto2.51.2-3.8 10 3/uLMonocytes Absolute Auto0.40.3- 0.8 10 3/uLEosinophils Absolute Auto0.00.0-0.7 10 3/uLBasophils Absolute Auto0.0 0.0-0.1 10 3/uLImmature Granulocytes Abs Auto0.020.00-0.03 10 3/uLPerforming Lab:see noteML - [facility] LBCOVID-19, Flu A+B IH Reviewed date:03/19/2025 [...] Once a day; Duration: 30 dayscall for idtebt905ActiveTriamcinolone Acetonide 0.1 %1 application Externally Two times a Week12/10/2023ctiveCVS Glucose Meter Test Strips -as directed In Vitro daily; Duration: 30 days 5ActivePantoprazole Sodium 40 MG1 tablet Orally Once a day; Duration: 30 day(s)12/07/2023ctivetraZODone HCl 50 MG1 tablet at bedtime as [...] alcohol in the p ast year? No Udhrtr2NatsodvxvdxnagTztdgdcdEPAYZ-V (Standard) Question Answer Notes Did you have a drink containing alcohol in the p ast year? No Gqbrwg6JvobzrtvgnnqfsBtpgjlwo Problems Problem Type SNOMED Code ICD Code Onset Dates Problem Status W/U Status Risk Notes Problem Overweight (814423802) Overweight (E66.3) ActiveconfirmedProblemGeneralized anxiety disorder (44759285)Generalized anxiety disorder (F41.1)ActiveconfirmedProblemDepression (126561765)Depression (F32.9) ActiveconfirmedProblemErectile dysfunction (572926942)Erectile dysfunction (N52.9)ActiveconfirmedProblemGastroesophageal reflux disease (272681209)GERD without esophagitis (K21.9)ActiveconfirmedProblemMigraine (58889864)Migraine (G43.909)ActiveconfirmedProblemType 2 diabetes mellitus (49540367)Type 2 diabetes mellitus (E11.9)ActiveconfirmedProblemBronchitis (23439378)Bronchitis (J40)ActiveconfirmedProblemRash (543201925)Rash (R21)ActiveconfirmedProblemUpper respiratory infection (36635503)Upper respiratory infection (J06.9)Active confirmedProblemShingles (6036967)Shingles (B02.9)ActiveconfirmedProblem Hemorrhoids (45609340)Hemorrhoids (K64.9)ActiveconfirmedProblemCurrent smoker (18309945)Current smoker (F17.200)ActiveconfirmedProblemAbdominal discomfort (63496366)Abdominal discomfort (R10.9)ActiveconfirmedProblemPanic attack (558292953)Panic attack (F41.0)ActiveconfirmedProblemBright red blood per rectum (133901003)Bright red blood per rectum (K62.5)ActiveconfirmedProblemAnal fissure (79543627)Rectal fissure (K60.2)ActiveconfirmedProblemPain in limb (41788367) Heel pain, right (M79.671)ActiveconfirmedProblemInsomnia (786158682)Insomnia disorder (G47.00)ActiveconfirmedProblemIrritable bowel syndrome (16799076) Irritable bowel syndrome (IBS) (K58.9)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)Yjvmb-Cavowzwhw-Stfri (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)Active confirmedProblemMixed anxiety and depressive disorder (810015476)Anxiety and depression (F41.8)ActiveconfirmedProblemMenopause (488349289)Insomnia associated with menopause (N95.1)Activeconfirmed Vital Signs Heart Rate 109 /min 06/15/2024 Mekgbxeklhk69.4 degrees Vmgjvcymdj67/04/8822Ghvnbqhe20 %06/15/2024lood pressure gxxidagnz15 mm Hg04/20/20252099Syvjhr57 in04/20/2025lood pressure mm Hg 04/20/20258239Glqxwa111.8 lbs106/21/2024BMI35.15 kg/m204/20/2025 Encounters Encounter Location Date Provider Diagnosis [facility] [address] [place] [address] 06/01/2024 Leighann Soriano [facility] [place] [address] 03/27/2025[facility], [place] [address]/01/2025Leighann [facility] [place] [address]Leighann [facility] [address] [place] [address]/Leighann [facility] [place] [address]/04/2025 Martínez HoyAcute non-recurrent sinusitis, unspecified location J01.90 and Nasal congestion R09.81[place] [address] [facility] [place] [address]/Pamela CramerInsomnia disorder G47.00 ; Rash and other nonspecific skin eruption R21 and Depression F32.[address] [place] [address]/Pamela Maru Gastroenteritis K52.[address], [facility]/Pamela CramerBody aches R52 ; Gastroenteritis K52.9 [address] V[address], [facility]/Pamela CramerPanic attack F41.0 and Anxiety and depression F41.[address] [place] [address]/06/2024Pamela CramerType 2 diabetes mellitus E11.9 and Anxiety and depression F41.[address], [facility]/Pamela CramerBronchitis K82Biqfs[address] [place] [address]/Doug HoyGastroenteritis K52.9B[address] [place] [address] 06/08/2024Doug HoyCough R05.9 and Acute bronchitis, unspecified organism J20.9 Assessments Encounter Date Diagnosis (ICD Code) Assessment [...] worsen 07/17/2024ronchitis (ICD-10 - J40)fu if not hfvqrgazq92/20/2025Gastroenteritis (ICD-10 - K52.9)Get plenty of rest. Stay hydrated by sucking on ice chips or taking small sips of water. You can also try drinking clear soda, clear broths or noncaffeinated sports drinks. Stop eating solid foods for a few hours to let your stomach settle. East back into eating by eating bland, xhop-ne-sbyxfl foods like crackers, toast, gelatin, bananas, rice and chicken. Try to avoid foods/substances including dairy products, caffeine, alcohol, nicotine and fatty or highly seasoned foods. Medications such as ibuprofen or tylenol can make your stomach more upset, so use sparingly if at all. Also avoid yezy-ocr-zerekaj anti-diarrheal medications because it can make it harder for your body to eliminate the virus.5Acute non-recurrent sinusitis, unspecified location (ICD-10 - J01.90)Rest and drink more liquids, especially water. You may use a humidifier or vaporizer to help keep the drainage moist. Afml-zkq-vnkgwhq Nasal Saline may help the stuffy and runny nose. Use Ibuprofen and or Tylenol as needed for fever, chills, body aches or pain. Children 5 years old should not be given sktg-mnh-gawemxi cough and cold medications such as guaifenesin and dextromethorphan. If you're over age 5, you may try eurg-qju-lfsayat cold medications such as guaifenesin and dextromethorphan, [...] below 65 consecutively. Reviewed with patient the penitentiary effects of Diabetes Mellitus on the body [...] vaporizer to help keep the drainage moist. Eoax-nay-jreseyc Nasal Saline may help the stuffy and runny nose. Use Ibuprofen and or Tylenol as needed for fever, chills, body aches or pain. Children 5 years old should not be given mgst-ppl-mteomff cough and cold medications such as guaifenesin and dextromethorphan. If you're over age 5, you may try pjsc-mwp-rhdraxt cold medications such as guaifenesin and dextromethorphan, [...] go to the emergency room or call [phone]/Depression (ICD-10 - F32.9) psych referral sheet given needs to re establish with psych will review meds with Dr Donato Plan Of Treatment Pending Test Test Name Order Date COVID-19, Flu A+B IH 07/14/2024 ECG 12 lead 04/28/2025 Next Appt Details Provider Name:Leighann doss, 05/04/2025 09:30:00 AM, [address] [place], [address], Medical (General) History Medical History History ICD Code Bronchitis J40 Heel pain, right M79.671 Hemorrhoids K64.9 Upper respiratory infection J06.9 Depression F32.9 Rash R21 Shingles B02.9 Migraine G43.909 Gastro-esophageal reflux disease K21.9 Bright red blood per rectum K62.5 Irritable bowel syndrome (IBS) K58.9 Panic attack F41.0 Tursh-Mjpljqnfs-Llixb (WPW) syndrome I45 .6 Overweight E66.3 Abdominal discomfort R10.9 Generalized anxiety disorder F41.1 Current smoker F17.200
== END 2025-04-28 23:55 | disposition home or self-care (01) ==
PROVIDERS: Emergency Provider Emergency Medicine; PCP Nurse Practitioner Family
DX: R09.89 Other specified symptoms and signs involving the circulatory and respiratory systems (principal); K59.00 Constipation, unspecified; R10.84 Generalized abdominal pain
CPT/HCPCS: 74022; 93005; 96372; 99285; J1885

== ENCOUNTER 2025-04-30 19:08 | Emergency (ER) | payer SELFPAY ==
--- OUTSIDE RECORDS SUMMARY | 2024-08-08 08:30 | XMS_ITS ---
Author Organization The [facility] in [place] Address [address] [place] [address] Care Team Providers Care Film Historian Name Role Phone Leighann Mahoney Primary Care Provider REASON FOR VISIT STILL SICK Encounters Encounter Location Date Provider Diagnosis [facility] [address] [place] [address] 08/08/2024 Leighann Mahoney Plan Of Treatment Next Appt Details Provider Name:Leighann doss, 05/04/2025 09:30:00 AM, [address] [place], [address], Progress Notes * Genesis PACKEROB:1985 (39 yo M)Acc No.[id number]:08/08/2024 UNLOCKED PROGRESS NOTE Progress Note Patient: Tristin CARL :?Leighann Mahoney ([facility]), CNPDOB:1985 ???Age:38 Y???Sex:MaleDate:08/08/2024Phone:[phone]:[address], [id number] Subjective: * Chief Complaints: * 1 . STILL SICK. * Medical History: Objective: * Vitals: Assessment: Plan: * Treatment: * * Electronic signature of Leighann Mahoney NP, PLASTIC BUBBLE PACKER.MANAGER MARKETING.[id number] on 04/30/2025 at 08:52 PM ESTSign off status: PendingVisit Status:?OFF CANC (OFFICE CANCEL) * Provider: Phan Mahoney ([facility]), MANAGER MARKETING Date: 0 08/08/2024 Generated for Printing/Faxing/eTransmitting on:?04/30/2025 08:52 PM EST
--- OUTSIDE RECORDS SUMMARY | 2025-04-17 03:44 | XMS_ITS ---
Author Organization The [facility] in [place] Address [address] [place] [address] Care Team Providers Care Shipping Coordinator Name Role Phone Leighann Mahoney Primary Care Provider [phone] Encounters Encounter Location Date Provider Diagnosis [facility] [address] [place] [address] 04/17/2025 Leighann Mahoney Plan Of Treatment Next Appt Details Provider Name:Leighann doss, 05/04/2025 09:30:00 AM, [address] [place], [address], Progress Notes * Genesis PACKEROB:1985 (39 yo M)Acc No.[id number]:04/17/2025 Patient:?Tristin PACKER :1985???Age:39 Y???Sex:MalePhone:[phone] Address:[address] [place] [address] Subjective: * Chief Complaints: * * Medical History: * Surgical History: * Hospitalization/Major Diagno stic Procedure: * Medications: Objective: * Vitals: * Physical Examination: ??? Assessment: Plan: * Treatment: * Procedure Codes: * true * Date:?Generated for Printing/Faxing/eTransmitting on:?04/30/2025 08:52 PM EST
--- OUTSIDE RECORDS SUMMARY | 2025-04-20 08:00 | XMS_ITS ---
Author Organization [facility] [place] Address [address] [place] [address] Care Team Providers Care Deputy Chief Counsel Name Role Phone Leighann Mahoney Primary Care [...] this AM- was taken by squad to [facility]- they gave him Ativan- also said [...] Once a day; Duration: 30 dayscall for ggtcyc705ActiveTriamcinolone Acetonide 0.1 %1 application Externally Two times [...] 04/20/2025 Encounters Encounter Location Date Provider Diagnosis [address] [address] 04/20/2025 Leighann Mahoney Panic attack F41.0 and [...] Name:Leighann doss, 05/04/2025 09:30:00 AM, [address] [facility], [address], [place], [address], Progress Notes * Genesis PACKEROB:1985 (39 yo M)Acc No.[id number]:04/20/2025 Progress Note Patient: Tristin CARL :?Leighann Mahoney ([facility]), CNPDOB:1985 ???Age:39 Y???Sex:MaleDate:04/20/2025Phone:[phone]:[address], [address], [place], [place]Ejwwu In:01:00 PM ESTCheck Out:01:25 PM EST Subjective: * Chief Complaints: * 1 . SELF PAY med adjustment. 2. Wants his Prozac increased. 3. Also said that he had a really bad panic attack this AM- was taken by squad to [facility]- they gave him Ativan- also said [...] Active Problem List G43.909 Migraine Modified On:08/11/2022 Status:clcebysqjY30Tldhmvjcwj Modified On:08/11/2022 Status:zdtjuinudI77Juaw Modified On:08/11/2022 Status:xwmmcclwkW56.9Upper respiratory infection Modified On:08/11/2022 Status:ifgvxskbeE26.9Shingles Modified On:08/11/2022 Status:yoncdwjlkY64.9Hemorrhoids Modified On:08/11/2022 Status:qhescacrsC02.200Current smoker Modified On:08/11/2022 Status:cnstmygluI33.9Abdominal discomfort Modified On:08/11/2022 Status:yuoazknuqT45.0Panic attack Modified On:08/11/2022 Status:drvyahvfaV38.5Bright red blood per rectum Modified On:08/11/2022 Status:amuovstkwV65.3Overweight Modified On:08/11/2022 Status:gsvpcfhzhY61.1Generalized anxiety disorder Modified On:08/11/2022 Status:jcspwoiwdH44.9Depression Modified On:07/27/2023 Status:skirevxysU80.671Heel pain, right Modified On:08/11/2022 Status:wvfzabbneQ07.9Irritable bowel syndrome (IBS) Modified On:08/11/2022 Status:mosixelhkE15.2Pxxhi-Kdulyones-Almsk (WPW) syndrome Modified On:08/11/2022 Status:pppybmegbH28.9Erectile dysfunction Modified On:07/27/2023 Status:slklmfbkbM41.2Rectal fissure Modified On:12/07/2023 Status:qpgkfgkgaW85.9GERD without esophagitis Modified On:12/07/2023 Status:andtewjmxO53.00Insomnia disorder Modified On:05/26/2024 Status:qnpapxdccX05.1Insomnia associated with menopause Modified On:05/26/2024 Status:pydzrrcylN48.9Type 2 diabetes mellitus Modified On:03/27/2025 Status:kyjcnvcfwC54.8Anxiety and depression Modified On:04/03/2025 Status:confirmed * Medical History: B ronchitis, Heel pain, right, Hemorrhoids, Upper respiratory infection, Depression, Rash, Shingles, Migraine, Gastro-esophageal reflux disease, Bright red blood per rectum, Irritable bowel syndrome (IBS), Panic attack, Oipnc-Drrjbhwot-Tpsoc (WPW) syndrome, Overweight, Abdominal discomfort, Generalized anxiety [...] * Electronically signed by Leighann Mahoney NP, ROOM ATTENDANT.EARLY CHILDHOOD LEAD TEACHER.[id number] on 04/23/2025 at 12:51 PM ESTSign off status: CompletedVisit Status:?CHK (Check Out) true * Provider: Phan Mahoney (GEORGE), EARLY CHILDHOOD LEAD TEACHER Date: 1 06/21/2024 Generated for Printing/Faxing/eTransmitting on:?04/30/2025 08:51 PM EST History and Physical Notes * [...]
[2025-04-30] VITALS (12 sets, daily range): BP systolic 130–145; BP diastolic 82–92; PULSE 78–94; TEMP 36.6; O2SAT 96–99; BMI 34.1
--- NOTE | 2025-04-30 19:20 | ECG_ITS ---
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 Measurements Intervals [place] Rate: 91 P: 56 SC: 120 QRS: 38 QRSD: 72 T: 31 QT: 330 QTc: 379 Interpretive Statements 1100 Sinus rhythm 4068 Nonspecific [place] abnormality 9130 borderline ECG Compared to ECG 04/28/2025 22:40:58 Short SC interval no longer present Electronically Signed On 05-01-2025 19:17:54 EST by JITENDRA FOOTE M.D.
--- NOTE | 2025-04-30 20:16 | ED.CHESTPAI1 ---
HPI - Chest Pain General Chief Complaint: Chest Pain Stated Complaint: CHEST PAIN Time Seen by Provider: 04/30/25 19:45 Source: patient Mode of arrival: walk-in Limitations: no limitations History of Present Illness HPI narrative: This 39-year-old male with a history of anxiety and tobacco use presents for evaluation of left-sided chest pain. He states the chest pain started around 1 AM. He states he called EMS and an EKG was performed by EMS but did not show any acute findings so he did not come to the emergency department. He has had ongoing intermittent sharp stabbing chest pain since that time. He denies any shortness of breath dizziness diaphoresis or syncope. He was recently seen for constipation and states he does not get paid till Wednesday so he was not able to get the MiraLAX that was prescribed to him but he has been having bowel movements. Related Data Home Medications ?Medication ?Instructions ?Recorded ?Confirmed fluoxetine 20 mg capsule 40 mg PO DAILY 04/11/25 04/28/25 gabapentin 300 mg capsule 300 mg PO DAILY 04/23/25 04/28/25 lorazepam 0.5 mg tablet mg 04/23/25 Previous Rx's ?Medication ?Instructions ?Recorded meclizine 25 mg chewable tablet 25 mg PO TID PRN dizziness or 03/17/25 (Antivert) vertigo #7 tabs metformin 500 mg tablet 500 mg PO DAILY #30 tabs 03/21/25 benzonatate 100 mg capsule 100 mg PO TID PRN cough #20 caps 04/23/25 loratadine 5 mg-pseudoephedrine ER 1 tab PO Q12H PRN nasal congestion 04/23/25 120 mg tablet,extended #20 tabs release,12hr (Claritin-D 12 Hour) nabumetone 750 mg tablet 750 mg PO BID PRN pain #14 tabs 04/28/25 polyethylene glycol 3350 17 17 g PO DAILY 4 days #68 grams 04/28/25 gram/dose oral powder (ClearLax) Allergies Allergy/AdvReac Type Severity Reaction Status Date / Time erythromycin base Allergy Intermediate Rash Verified 04/30/25 19:23 Penicillins Allergy Intermediate Rash Verified 04/30/25 19:23 strawberry Allergy Intermediate Hives Verified 04/30/25 19:23 Review of Systems ROS Status of ROS 10 or more systems reviewed and unremarkable except as noted in history and below PFSH PFSH Social History Smoking status: Current every day smoker Little interest or pleasure in doing things: not at all Feeling down, depressed, or hopeless: not at all Exam Narrative Exam Narrative: Vital signs and Nursing Notes reviewed: Patient is afebrile with a normal pulse, blood pressure is mildly elevated 145/89, he is not hypoxic with pulse ox of 99% on room air General: Awake, alert, oriented, anxious moderately overweight adult male, rubbing the left side of his chest, no respiratory distress HEENT: Normocephalic atraumatic, mucous membranes are moist and pink, eyes are clear, normal conjunctiva, vision is grossly intact Neck: Supple, no JVD Chest: Lungs are clear to auscultation with good air entry, there is no wheezing rhonchi or rales appreciated no accessory muscle use, patient is speaking in complete sentences-tenderness to palpation of the left anterior chest wall CVS: Regular rate and rhythm S1-S2, no murmurs rubs or gallops, pulses are brisk and equal bilaterally ABD: Soft, nondistended, nontender, no rebound guarding or rigidity, bowel sounds are normal, no pulsatile masses appreciated Extremities: Moving all extremities, no lower extremity tenderness or swelling noted, negative Homans' sign, pulses are brisk and equal bilaterally Skin: Normal in appearance without rash,pallor, petechiae or purpura Neuro: No focal deficits Constitutional Vital Signs, click to edit/add: Last Vital Signs Temp 97.8 F 04/30/25 19:13 Pulse 88 04/30/25 19:13 Resp 16 04/30/25 19:13 BP 145/89 H 04/30/25 19:13 Pulse Ox 99 04/30/25 19:13 O2 Del Method Room Air 04/30/25 19:13 Course Vital Signs Vital signs: Vital Signs Temperature 97.8 F 04/30/25 19:13 Pulse Rate 88 04/30/25 19:13 Respiratory Rate 16 04/30/25 19:13 Blood Pressure 145/89 H 04/30/25 19:13 Pulse Oximetry 99 04/30/25 19:13 Oxygen Delivery Method Room Air 04/30/25 19:13 Temperature 97.8 F 04/30/25 19:13 Pulse Rate 88 04/30/25 19:13 Respiratory Rate 16 04/30/25 19:13 Blood Pressure 145/89 H 04/30/25 19:13 Pulse Oximetry 99 04/30/25 19:13 Oxygen Delivery Method Room Air 04/30/25 19:13 MDM - Chest Pain MDM Narrative Medical decision making narrative: This 39-year-old male with a history of anxiety who is a smoker without a history of heart disease presents for evaluation of left-sided chest pain that started around 1 AM. He states that he called EMS and EKG was performed and was told that the EKG was normal so he did not come to the emergency department at that time. Since then he has had intermittent sharp stabbing chest pain. Is not associated with dizziness diaphoresis or syncope. He states he was recently seen in this emergency department for constipation. He has been having bowel movements since that time and does not feel constipated. He is not having any nausea or vomiting. He has no lower extremity pain or swelling. He has not had a fever. EKG done upon arrival is a sinus rhythm at 90 bpm with a normal axis and no acute findings. He has left-sided chest wall tenderness to palpation. Lungs are clear, abdomen is soft. He was given 324 mg baby aspirin and 1 [place] and a cardiac workup was ordered. He has a normal white count and stable hemoglobin. D-dimer is normal. He has a normal troponin and electrolyte panel is normal. 1 view chest x-ray was ordered. 1 view chest x-ray was reviewed by myself and does not show any acute findings, there is no acute pulmonary infiltrate, normal mediastinum and normal cardiac borders. The results of these findings were discussed with him. He will be discharged home with recommendation for close follow-up with his family physician Lab Data Labs: Lab Results 04/30/25 Range/Units 20:45 WBC 7.0 (4.0-11.0) 10^3/uL RBC 5.41 (4.70-6.10) 10^6/uL Hgb 16.3 (14.0-18.0) g/dL Hct 46.1 (42.0-54.0) % MCV 85.2 (80.0-94.0) fL MCH 30.1 (25.9-34.0) pg MCHC 35.4 H (29.9-35.2) g/dL RDW 12.3 (11.0-15.0) % Plt Count 200 (150-450) 10^3/uL MPV 9.9 (9.5-13.5) fL Neut % (Auto) 50.3 (43.0-75.0) % Lymph % (Auto) 42.6 (20.5-60.0) % [place] % (Auto) 6.2 (1.7-12.0) % Eos % (Auto) 0.7 L (0.9-7.0) % Baso % (Auto) 0.1 L (0.2-2.0) % Neut # (Auto) 3.5 (1.4-6.5) 10^3/uL Lymph # (Auto) 3.0 (1.2-3.8) 10^3/uL [place] # (Auto) 0.4 (0.3-0.8) 10^3/uL Eos # (Auto) 0.1 (0.0-0.7) 10^3/uL Baso # (Auto) 0.0 (0.0-0.1) 10^3/uL Abs Immat Gran (auto) 0.01 (0.00-0.03) 10^3/uL Imm/Tot Granulo (auto) 0.1 (0.0-0.5) % D-Dimer <0.19 (<=0.59) mg/L FEU Sodium 139 (136-145) mmol/L Potassium 3.9 (3.5-5.1) mmol/L Chloride 104 (98-107) mmol/L Carbon Dioxide 28.1 (21.0-32.0) mmol/L Anion Gap 10.8 BUN 14.0 (7.0-18.0) mg/dL Creatinine 1.11 (0.70-1.30) mg/dL Est GFR ( Amer) >60 (>=60 mL/min/1.73m^2) Est GFR (Non-Af Amer) >60 (>=60 mL/min/1.73m^2) BUN/Creatinine Ratio 12.6 Glucose 133 H (74-106) mg/dL Calcium 9.0 (8.5-10.1) mg/dL Total Bilirubin 0.3 (0.2-1.0) mg/dL AST 22 (15-37) U/L ALT 37 (16-63) U/L Alkaline Phosphatase 63 (46-116) U/L Troponin I High Sens 5.4 (4.0-76.1) pg/mL Total Protein 7.9 (6.4-8.2) g/dL Albumin 3.8 (3.4-5.0) g/dL Globulin 4.1 g/dL Albumin/Globulin Ratio 0.9 ECG Data Attestation: I personally reviewed and interpreted this ECG as follows: (Sinus rhythm at 90 bpm, normal axis, normal intervals, no acute ST segment elevation or T wave inversion) Heart Score History: Slightly/Non-Suspicious ECG: Normal Age: <45 years Risk Factors: 1 or 2 Risk Factors Troponin: <Normal Limit Total Heart Score Recommendations & Risks:: 1 Discharge Plan Discharge Chief Complaint: Chest Pain Clinical Impression: Atypical chest pain Patient Disposition: Home, Self-Care Time of Disposition Decision: 21:30 Condition: Good Prescriptions / Home Meds: No Action metformin 500 mg tablet 500 mg PO DAILY Qty: 30 0RF fluoxetine 20 mg capsule 40 mg PO DAILY meclizine [Antivert] 25 mg tablet,chewable 25 mg PO TID PRN (Reason: dizziness or vertigo) Qty: 7 0RF lorazepam 0.5 mg tablet gabapentin 300 mg capsule 300 mg PO DAILY benzonatate 100 mg capsule 100 mg PO TID PRN (Reason: cough) Qty: 20 0RF Claritin-D 12 Hour 5-120 mg tablet extended release 12 hr 1 tab PO Q12H PRN (Reason: nasal congestion) Qty: 20 0RF polyethylene glycol 3350 [ClearLax] 17 gram/dose powder 17 g PO DAILY 4 Days Qty: 68 0RF nabumetone 750 mg tablet 750 mg PO BID PRN (Reason: pain) Qty: 14 0RF Print Language: Somali Instructions: Noncardiac Chest Pain (ED), Chest Wall Pain (ED) Referrals: MERNA SORIANO [Primary Care Provider, Family Practice] - 1 week
[2025-04-30] MEDS: HYDROCODONE/ACET 5-325 MG TABLET 1 TAB PO (20:47)
[2025-04-30] MEDS: ASPIRIN 81 MG TAB.CHEW 324 MG PO (20:47)
--- OUTSIDE RECORDS SUMMARY | 2025-04-30 20:50 | XMS_ITS | CCD ---
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 Comment: Name Collection Type:: Voided Performed By: #### CUBLD #### [place] [address] USALactate [Moles/volume] in Serum or PlasmaOrdered By: Herminio Davila on 24-37-7740Uqiwywu [Moles/Vol]0.9 mmol/LNormal0.5-1.9A[facility]ike Medical CenterComment on above:Lactic Acid reference range has been updated to 0.5 1.9 mmol/L and the critical range of 2.0 or greater.Result Comment: Lactic Acid reference range has been updated to 0.5 ? 1.9 mmol/L and the critical range of 2.0 or greater. PERFORMED BY: [place] [address] PATHOLOGIST DRILL DOCTOR JODY DAN M.D.Performed By: #### CUBLD #### [place] [address] USALeukocyte esterase [Presence] in Urine by Test strip Ordered By: Herminio Davila on 16-04-5440Ngxxhxpaj esterase Test strip Ql (U) NegativeNormalNegativeAdena Pike Medical CenterComment on above:Order Comment: Name Collection Type:: VoidedPerformed By: #### CUBLD #### [place] [address] USALeukocytes [#/area] in Urine sediment by Automated count Ordered By: Herminio Davila on 05-91-7992XYL Auto (Urine sed) [#/Area]3-4 [HPF]0-4 [facility] Medical CenterLeukocytes [#/volume] corrected for nucleated erythrocytes in Blood by Automated counOrdered By: Herminio Davila on 02-04-2025 WBC corrected for nucl RBC Auto (Bld) [#/Vol]8.9 10*3/uL4.1-10.5FShelby Memorial HospitalLeukocytes [#/volume] in Blood by Automated countOrdered By: Herminio Davila on 75-47-5511XTF (Bld) [#/Vol]8.9 10*3/uLNormal4.1-10.5 [facility] Medical CenterComment on above:Performed By: #### CBC, PT, PTT, CMP, CK, HS TROP #### [facility] [address] [place] [address] USALymphocytes [#/volume] in Blood by Automated countOrdered By: Herminio Davila on 62-49-2846Jproxjpbklt (Bld) [#/Vol]3.8 10*3/uLNormal 1.00-4.8A[facility] Pike Medical CenterComment on above:Performed By: #### CBC, PT, PTT, CMP, CK, HS TROP #### [facility] [address] [place] [address] USALymphocytes/100 leukocytes in Blood by Automated count Ordered By: Herminio Davila on 47-34-7697Ejgpghqezqg/100 WBC (Bld)42.6 %Normal. [facility]ike Medical CenterComment on above:Performed By: #### CBC, PT, PTT, CMP, CK, HS TROP #### [address] [Entitic mass] by Automated countOrdered By: Herminio Davila on 81-27-9057KRZ (RBC) [Entitic mass]30.8 rqPtlsgn07.5-35.2FShelby Memorial HospitalComment on above:Performed By: #### CBC, PT, PTT, CMP, CK, HS TROP #### [address] Auto (RBC) [Mass/Vol]Ordered By: Herminio Davila on 46-43-7280CMRT (RBC) [Mass/Vol]36.1 g/eOXgke30.5-35.6FShelby Memorial HospitalMCV [Entitic volume] by Automated countOrdered By: Herminio Davila on 57-32-9623RDA (RBC) [Entitic vol]85.3 vJEvkwal47.5-101A[facility]ike Medical CenterComment on above:Performed By: #### CBC, PT, PTT, CMP, CK, HS TROP #### [place] [address] USAMonocyte distribution width [Entitic volume] in Blood by AutomatedOrdered By: Herminio Davila on 42-28-1069Dlnpbxmm distribution width Auto (Bld) [Entitic vol]18.83 %0.00-20.00A[facility] Pike Medical CenterMonocytes [#/volume] in Blood by Automated countOrdered By: Herminio Davila on 02-04-2025 Monocytes (Bld) [#/Vol]0.5 10*3/uLNormal0.0-0.8[facility] Comment on above:Performed By: #### CBC, PT, PTT, CMP, CK, HS TROP #### [facility] [address] [place] [address] USAMonocytes/100 leukocytes in Blood by Automated count Ordered By: Herminio Davila on 88-04-9902Hyxvexird/100 WBC (Bld)5.5 %Normal. [facility]ike Medical CenterComment on above:Performed By: #### CBC, PT, PTT, CMP, CK, HS TROP #### [facility] [address] [place] [address] USAMucus [Presence] in Urine by AutomatedOrdered By: Herminio Davila on 12-07-3021Ludyp Auto Ql (U)Rare [LPF][facility] Medical CenterNeutrophils [#/volume] in Blood by Automated countOrdered By: Herminio Davila on 67-58-4308Wsmfjksuntn (Bld) [#/Vol]4.5 10*3/uLNormal1.8-7.7FShelby Memorial HospitalComment on above:Performed By: #### CBC, PT, PTT, CMP, CK, HS TROP #### [facility] [address] [place] [address] USANeutrophils/100 leukocytes in Blood by Automated count Ordered By: Herminio Davila on 21-14-5995Ttcgkbteiik/100 WBC (Bld)50.4 %Normal. [facility] Medical CenterComment on above:Performed By: #### CBC, PT, PTT, CMP, CK, HS TROP #### [facility] [address] [place] [address] USANitrite Test strip Ql (U)Ordered By: Herminio Davila on 05-27-9393Dbvqnym Ql (U)NegativeNegativeAdena Pike Medical CenterNo Panel InformationOrdered By: Herminio Davila on 06-15-9779Kjbqocfb Creatinine Clearance (Zenu408.66A[facility] Pike Medical CenterNucleated erythrocytes [Presence] in Blood by Automated countOrdered By: Herminio Davila on 02-04-2025 Nucleated RBC Auto Ql (Bld)0.1 /100{WBC}0-0.5FShelby Memorial Hospital Partial Thromboplastin Timeon 58-50-5551oFIA Coag (Bld) [Time]27.9 sNormal 25.1-36.5The [facility] Physician GroupComment on above:Result Comment: A hematocrit value greater than 55% may lead to inaccurate results in coagulation testing. Patients having hematocrit values >55% require a special collection tube for coagulation studies. Please contact the laboratory at [phone] for redraw instructions. PERFORMED BY: [place] [address] PATHOLOGIST DRILL DOCTOR JODY DAN M.D.Performed By: #### CBC, PT, PTT, CMP, CK, HS TROP #### [facility] [address] [place] [address] USAPlatelet mean volume [Entitic volume] in Blood by Automated countOrdered By: Herminio Davila on 18-49-2782Wvbijvyk mean volume (Bld) [Entitic vol]8.1 fLNormal6.6-10.1FShelby Memorial HospitalComment on above:Performed By: #### CBC, PT, PTT, CMP, CK, HS TROP #### [facility] [address] [place] [address] USAPlatelets [#/volume] in Blood by Automated countOrdered By: Herminio Davila on 48-98-1979Djddigbcf (Bld) [#/Vol]223 10*3/qZMinxfb888-266 [facility] Medical CenterComment on above:Performed By: #### CBC, PT, PTT, CMP, CK, HS TROP #### [facility] [address] [place] [address] USAPotassium [Moles/volume] in Serum or PlasmaOrdered By: Herminio Davila on 88-44-1552Znhoolrcy [Moles/Vol]3.7 mmol/LNormal3.5-5.1FShelby Memorial HospitalComment on above:Performed By: #### CBC, PT, PTT, CMP, CK, HS TROP #### [facility] [address] [place] [address] USAProtein Test strip (U) [Mass/Vol]Ordered By: Herminio Davila on 36-22-8648Fepxtyt (U) [Mass/Vol]NegativeNegativeAdena Pike Medical CenterProtein [Mass/volume] in Serum or PlasmaOrdered By: Herminio Davila on 30-99-3000Suyykdf [Mass/Vol]7.7 g/dLNormal6.4-8.9A[facility] Medical CenterComment on above:Performed By: #### CBC, PT, PTT, CMP, CK, HS TROP #### [facility] [address] [place] [address] USAProthrombin time (PT)Ordered By: Herminio Davila on 99-91-8020OT Coag (PPP) [Time]11.5 sNormal9.0-12.9[facility] Medical CenterComment on above:A hematocrit value greater than 55% may lead to inaccurate results in coagulation testing. Patientshaving hematocrit values >55% require a special collection tube for coagulation studies. Please contact the laboratory at [phone] for redraw instructions.Result Comment: A hematocrit value greater than 55% may lead to inaccurate results in coagulation testing. Patients having hematocrit values >55% require a special collection tube for coagulation studies. Please contact the laboratory at [phone] for redraw instructions.Performed By: #### CBC, PT, PTT, CMP, CK, HS TROP #### [facility] [address] [place] [address] USASerum globulin measurement by calculation (mass/volume) Ordered By: Herminio Davila on 78-49-2583Skpkjevc (S) [Mass/Vol]3.6 g/dLNormal [facility] CenterComment on above:Performed By: #### CBC, PT, PTT, CMP, CK, HS TROP #### [place] [address] USASerum or plasma albumin/globulin mass ratioOrdered By: Herminio Davila on 23-40-2883Rpjbuiv/Globulin [Mass ratio]1.1 {ratio}Normal [facility] Medical CenterComment on above:Performed By: #### CBC, PT, PTT, CMP, CK, HS TROP #### [place] [address] USASerum or plasma anion gap determinationOrdered By: Herminio Davila on 75-13-5086Hoiqc gap [Moles/Vol]11.1 mmol/LNormal6.0-15.0[facility] Medical CenterComment on above:Performed By: #### CBC, PT, PTT, CMP, CK, HS TROP #### [place] [address] USASodium [Moles/volume] in Serum or PlasmaOrdered By: Herminio Davila on 80-77-1650Xdzrdq [Moles/Vol]136 mmol/QWetbak309-265DsycbpspvAdena Pike Medical CenterComment on above:Performed By: #### CBC, PT, PTT, CMP, CK, HS TROP #### [place] [address] USASpecific gravity Test strip (U) [Rel density]Ordered By: Herminio Davila on 18-08-1372Yigovwno gravity (U) [Rel density]1.0271.001-1.030 [facility] Medical CenterTroponin I High Sensitivityon 02-04-2025 Troponin I High Qblacdllvil1Yjehku1-99Jet [facility] Physician GroupComment on above:Result Comment: The Troponin units of report have been changed to meet the Chest Pain Accreditation requirement, element EC5.M1l2. Troponin units are changed from pg/ml to ng/L. Also, the decimal is removed and results are in whole numbers. PERFORMED BY: [place] [address] PATHOLOGIST DRILL DOCTOR JODY DAN M.D.Performed By: #### CBC, PT, PTT, CMP, CK, HS TROP #### [facility] [address] [place] [address] USATroponin I.cardiac [Mass/volume] in Serum or Plasma by Detection limit <= 0.01 ng/mLOrdered By: Herminio Davila on 13-15-4662Nrdpntas I.cardiac DL <= 0.01 ng/mL [Mass/Vol]5 ng/L0-20[facility] Comment on above:The Troponin units of report have been changed to meet the Chest Pain Accreditation requirement, element EC5.M1l2. Troponin units are changed from pg/ml to ng/L. Also, the decimal is removed and results are in whole numbers.Urea nitrogen [Mass/volume] in Serum or PlasmaOrdered By: Herminio Davila on 68-30-6376Rnoe nitrogen [Mass/Vol]16 mg/dLNormal7-25A[facility] Medical CenterComment on above:Performed By: #### CBC, PT, PTT, CMP, CK, HS TROP #### [facility] [address] [place] [address] USAUrobilinogen Test strip (U) [Mass/Vol]Ordered By: Herminio Davila on 49-30-6379Pukmtgfnulqx (U) [Mass/Vol]Normal mg/dLNoAdena Fayette Medical CenterWhole blood chloride measurementOrdered By: Herminio Davila on 36-18-8487Hdknngas [Moles/Vol]106.0 mmol/RGdiozi40-568EldpkhlsaAdena Pike Medical CenterComment on above:Performed By: #### CUBLD #### [facility] [address] [place] [address] USAWhole blood creatinine measurementOrdered By: Herminio Davila on 38-54-4628Cpuiilykxy [Mass/Vol]1.0 mg/dLNormal0.6-1.3FShelby Memorial HospitalComment on above:ER/ESD physician is notified/shown all ISTAT results.Critical values may be confirmed by laboratorytesting ifdeemed necessary by ER attending doctor.Result Comment: ER/ESD physician is notified/shown all ISTAT results. Critical values may be confirmed by laboratory testing if deemed necessary by ER attending doctor.Performed By: #### CUBLD #### [facility] [address] [place] [address] USAWhole blood ionized calcium measurement (moles/volume) Ordered By: Herminio Davila on 36-39-3067Dxybkag.ionized (Bld) [Moles/Vol]1170 mmol/L1.12-1.32A[facility] Medical CenterWhole blood potassium measurementOrdered By: Herminio Davila on 64-10-1611Ohvuoplmb [Moles/Vol]3.7 mmol/LNormal3.5-4.9[facility] Medical CenterComment on above:Performed By: #### CUBLD #### [place] [address] USAWhole blood sodium measurementOrdered By: Herminio Davila on 14-92-9366Dnbnjg [Moles/Vol]140 mmol/BPkcarf236-830KegewljunAdena Pike Medical CenterComment on above:Performed By: #### CUBLD #### [place] [address] USAaPTT in Platelet poor plasma by Coagulation assayOrdered By: Herminio Davila on 63-20-9623fSVN Coag (PPP) [Time]27.9 s25.1-36.5FShelby Memorial HospitalComment on above:A hematocrit value greater than 55% may lead to inaccurate results in coagulation testing. Patientshaving hematocrit values >55% require a special collection tube for coagulation studies. Please c ontact the laboratory at [phone] for redraw instructions.pH of Urine by Test stripOrdered By: Herminio Davila on 21-80-7267vI (U)5.5 [pH]Normal5.0-9.0 [facility] Medical CenterComment on above:Order Comment: Name Collection Type:: VoidedPerformed By: #### CUBLD #### [place] [address] USAOffice Visiton 12-11-3942Ewyugp-up [id number] Chuck Packer 1985 M Date Provider Department Center 03/14/2024 Mayra-URBANO RODRIGUEZ [facility] SURG Second Fl No family history on file Level of Service:58642 ID POSTOP FOLLOW UP VISIT RELATED TO ORIGINAL PX Reason for Visit and Comments: Post-op [483] - Chuck is here today for post op visit: hemorrhoids, s/p 02/29/24 EUA with hemorrhoidectomy and anal fissure debridementNormalUniSelect Medical Specialty Hospital - Boardman, IncHISTOLOGY - TISSUE EXAMon 81-93-7399MRQ AP CASE REPORT MarlandUnChillicothe VA Medical CenterComment on above:Order Comment: Pre-op diagnosis: Anal pain [K62.89]Result Comment: Surgical Pathology Case: [id number] Authorizing Provider: Urbano Rodriguez MD Collected: 02/29/2024 0827 Ordering Location: [facility] Main Operating Room Received: 02/29/2024 1058 Pathologist: Dyana Villasenor MD Specimens: A) - Anus, ANAL FISSURE B) - Anus, INTERNAL AND EXTERNAL HEMORRHOIDPerformed By: #### [id number] #### [facility] (BEAKER) [address] [place], [place] [address]STQ AP CLINICAL INFORMATIONNormalUniSelect Medical Specialty Hospital - Boardman, IncComment on above:Order Comment: Pre-op diagnosis: Anal pain [K62.89]Result Comment: Post-Op Diagnoses K62.89 - Anal pain [ICD-10-CM]Performed By: #### [id number] #### [facility] (BEAKER) [address] [place], [place] [address]WSM AP GROSS DESCRIPTIONA. Anus.[facility] Hospital DaytonComment on above:Order Comment: Pre-op diagnosis: Anal pain [...] in a single cassette. [place], Pathologists' Business Economist Leonel Hwang. Received in formalin labeled Chuck [...] are somewhat congested with focal prominent vessels. Cook Helper Pastry sections are submitted in a single cassette. [place] Pathologists' AssistantPerformed By: #### [id number] #### [facility] ([facility]) [address] [place], [place] [address]EIT AP MICROSCOPIC DESCRIPTIONMicroscopic examination performed. [facility] Hospital DaytonComment on above:Order Comment: Pre-op diagnosis: Anal pain [K62.89]Performed By: #### [id number] #### [facility] ([facility]) [address] [place], [place] [address]WMB AP REPORT FINAL DIAGNOSIS NARRATIVENormalUniSelect Medical Specialty Hospital - Boardman, IncComment on above:Order Comment: Pre-op diagnosis: Anal pain [K62.89]Result Comment: A. Anal fissure, debridement: - Hyperplastic squamous mucosa and dilated congested submucosal veins. B. Hemorrhoids, internal and external, hemorrhoidectomy: - Internal and external hemorrhoids with acutely inflamed reactive surface epithelium. Performed By: #### [id number] #### [facility] ([facility]) [address] [place], [place] [address]BTsi 85-33-6804CAA&P reviewed. The patient was examined and there are no changes to the H&P.[facility] Hospital DaytonOPNOTE on [id number] UNDER ANESTHESIA,, HEMORRHOIDECTOMY, DEBRIDMENT OF ANAL FISSURE Operative Note Date: 02/29/2024 Location: [facility] OR Name: Chuck Packer, : 1985, Diagnosis Pre-op Diagnosis * Anal pain [K62.89] Post-op Diagnosis * Anal pain [K62.89] Anal fissure External and internal hemorrhoid Procedures HEMORRHOIDECTOMY, DEBRIDMENT OF ANAL FISSURE EXAM UNDER ANESTHESIA, 47073 - ID ANRCT XM SURG REQ ANES GENERAL SPI/EDRL [...] EXTERNAL HEMORRHOID Comment: PLACED IN FORMALIN Staff: Survey Cad Technician: Shannan Guy RN Scrub Person: Dianelys Watson [...] - hemodynamically stable. Condition: stable Melbarenu Rodriguez XlvbdoZrjnexrztmOhioHealth Pickerington Methodist HospitalCT GLUCOSE METER UNSOLICITED RESULTSon 71-74-5849Tkljuxn [Mass/Vol]134 mg/tVHhjr98-491 [facility] HospitalComment on above:Order Comment: Waived Testing in the ED is performed under the ED CLIA certificate #[id number].Result Comment: vyyinxf58Mkcsxnqfe By: #### [id number] #### [facility] HOSPITAL LAB (BEAKER) [address] [place], [place] [address]Dygpirnbb [id number] Chuck Packer 1985 M Date Provider Department Center 02/23/2024 Mayra-MICHAEL URBANO [facility] SURG Second Fl No family history on file Level of Service:14405 ID OFFICE/OUTPATIENT NEW LOW MDM 30 MINUTES Reason for Visit and Comments: Consult [484] - Chuck is here today for consult: Rectal pain and BleedingNormal Wood County HospitalHPon 95-32-0132PNVglgdllort Patient ID: Chuck Packer is a 38 [...] the past 36 hour(s)). No follow-ups on file.NormalWood County HospitalGeneral Surgery Office/Clinic Noteon 11-10-7291Xsrgnei Surgery Office/Clinic NoteGeneral Surgery Office/Clinic Note HPI [...] Rectal bleeding Rectal or anal pain Smoker Viqtx-Ukiilxida-Xwzrw syndrome Historical Atrial fibrillation Epididymitis Nocturia Scrotal [...] vaccine, inactivated - Not Given Patient RefusesNormalFishMedStar Harbor HospitalComment on above:Result Comment: Electronically Signed By: VIVIANE SIMS, Lucy Yañez\Date and Time Signed: 12/26/23 19:55 EDTAmbulatory Visit Summaryon 31-77-9793Nvdylhrbfg Visit SummaryAmbulatory Visit Summary CHUCK PACKER :1985 [...] with mild panic attacks Rectal bleeding Smoker Yynho-Dsmkaahav-Uclbz syndrome Historical - Any problem that you are no longer receiving treatment for. Atrial fibrillation Epididymitis Nocturia Scrotal pain Patient Survey You may receive a survey via text or e-mail asking about your office visit. Please share your experience with us by completing your survey. We appreciate your feedback and thank you for choosing us for your care. [facility]erry HospitalCB AUTO DIFFon 80-73-4597SPET # 0.0 103/ulNormal0.0-0.1The St. Vincent HospitalComment on above:Performed By: #### PTT, PT #### [facility] [address] [place] [address] Dr. Oh TrotterBasophils/100 WBC (Bld)0.2 %Normal0.2-2.0[facility] Comment on above:Performed By: #### PTT, PT #### [facility] [address] [place] [address] Dr. Oh Shaw #0.0 103/ulNormal0.0-0.7The St. Vincent HospitalComment on above: Performed By: #### PTT, PT #### [facility] [address] [place] [address] Dr. Oh Huangosinophils/100 WBC (Bld)0.6 %Critically low0.9-7.0The [facility]. Vincent HospitalComment on above:Performed By: #### PTT, PT #### [facility] [address] [place] [address] Dr. Oh Huangrythrocyte distribution width (RBC) [Ratio]12.2 %Ezrtuc88.0-15.[address] Vincent HospitalComment on above:Performed By: #### PTT, PT #### [facility] [address] [place] [address] Dr. Oh Dejesusatocrit (Bld) [Volume fraction]44.1 %Fgteog10.0-54.0[facility] Joseph Warren HospitalComment on above:Performed By: #### PTT, PT #### [facility] [address] [place] [address] Dr. Yilan ChangHemoglobin (Bld) [Mass/Vol]15.8 g/wARaekfh51.0-18.0The [facility] Vincent HospitalComment on above:Performed By: #### PTT, PT #### [facility] [address] [place] [address] Dr. Oh Malave #0.02 10e3/ulNormal0.00-0.03The St. Vincent HospitalComment on above:Performed By: #### PTT, PT #### [facility] [address] [place] [address] Dr. Oh Malave %0.3 %Normal0.0-0.5The St. Vincent HospitalComment on above: Performed By: #### PTT, PT #### [facility] [address] [place] [address] Dr. Oh Aldana #1.9 103/ulNormal1.2-3.8The St. Vincent HospitalComment on above:Performed By: #### PTT, PT #### [facility] [address] [place] [address] Dr. Oh Orellanahocytes/100 WBC (Bld)29.7 %Pwgbkc54.5-60.0The [facility] Vincent HospitalComaspirus ontonagon hospital on above:Performed By: #### PTT, PT #### [facility] [address] [place] [address] Dr. Oh SaldanaUAL DIFF REQNONormalThe St. Vincent HospitalComment on above: Performed By: #### PTT, PT #### [facility] [address] [place] [address] Dr. Oh Lau (RBC) [Entitic mass]29.8 umYqqerh77.9-34.0The [facility] Vincent HospitalComment on above:Performed By: #### PTT, PT #### [facility] [address] [place] [address] Dr. Oh Lau (RBC) [Mass/Vol]35.8 g/dLCritically high29.9-35.2The St. Vincent HospitalComment on above:Performed By: #### PTT, PT #### [facility] [address] [place] [address] Dr. Oh LauV (RBC) [Entitic vol]83.2 wYGvghba56.0-94.0The [facility] Jacksonment on above:Performed By: #### PTT, PT #### [facility] [address] [place] [address] Dr. Oh Johnson #0.6 103/ulNormal0.3-0.8The St. Vincent HospitalComment on above:Performed By: #### PTT, PT #### [facility] [address] [place] [address] Dr. hO Cedeñoocytes/100 WBC (Bld)8.6 %Normal1.7-12.0The [facility] on above:Performed By: #### PTT, PT #### [facility] [address] [place] [address] Dr. Oh Cruz #3.9 103/ulNormal1.4-6.5The [facility]ment on above:Performed By: #### PTT, PT #### [facility] [address] [place] [address] Dr. Oh Velazquezutrophils/100 WBC (Bld)60.6 %Vhmxbw09.0-75.0The [facility] on above:Performed By: #### PTT, PT #### [facility] [address] [place] [address] Dr. Oh Holmanlet mean volume (Bld) [Entitic vol]9.5 fLNormal9.5-13.5The [facility] on above:Performed By: #### PTT, PT #### [facility] [address] [place] [address] Dr. Oh TrotterPLT187 103/tdVwelkf099-648Fcz [facility] on above: Performed By: #### PTT, PT #### [facility] [address] [place] [address] Dr. Oh TrotterRBC5.30 106/ulNormal4.70-6.10The [facility] on above:Performed By: #### PTT, PT #### [facility] [address] [place] [address] [address] Oh TrotterWBC6.4 103/ulNormal4.0-11.0The St. Vincent HospitalComment on above: Performed By: #### PTT, PT #### [facility] [address] [place] [address] [address] Oh Paul 14(COMP METB)on 85-29-1302Kxgtvdd [Mass/Vol]3.5 g/dLNormal 3.4-5.0The St. Vincent HospitalComment on above:Performed By: #### LIPA, CMP, HSTROPN #### [facility] [address] [place] [address] Dr. Oh TrotterAlbumin/Globulin [Mass ratio]0.7 {ratio}NormalThe St. Vincent HospitalComment on above:Performed By: #### LIPA, CMP, HSTROPN #### [facility] [address] [place] [address] Dr. Oh Sheets [Catalytic activity/Vol]85 U/YRnllko68-829Lfg [facility]ment on above:Performed By: #### LIPA, CMP, HSTROPN #### [facility] Laboratory [address] [place] [address] Dr. Oh Negron [Catalytic activity/Vol]34 U/BNgoetv56-29Rlx St. [facility] HospitalComment on above:Performed By: #### LIPA, CMP, HSTROPN #### [facility] [address] [place] [address] Dr. Oh Claire gap [Moles/Vol]13.3 mmol/LNormalThe [facility] on above:Performed By: #### LIPA, CMP, HSTROPN #### [facility] [address] [place] [address] Dr. Oh Milner [Catalytic activity/Vol]18 U/SXvetja88-75Laq [facility] on above:Performed By: #### LIPA, CMP, HSTROPN #### [facility] [address] [address] [address] Oh TrotterBilirubin [Mass/Vol]0.4 mg/dLNormal0.2-1.0The [facility] Comment on above:Performed By: #### LIPA, CMP, HSTROPN #### [facility] [address] [place] [address] Dr. Oh TrotterCalcium [Mass/Vol]8.9 mg/dLNormal8.5-10.1[facility] Comment on above:Performed By: #### LIPA, CMP, HSTROPN #### [facility] [address] [place] [address] Dr. Oh TrotterChloride [Moles/Vol]105 mmol/LMwudfp85-313OivMer[facility] Comment on above:Performed By: #### LIPA, CMP, HSTROPN #### [facility] [address] [place] [address] Dr. Oh TrotterCO2 [Moles/Vol]24.7 mmol/XHcwtqn39.0-32.0[facility] Comment on above:Performed By: #### LIPA, CMP, HSTROPN #### [facility] [address] [place] [address] Dr. Oh TrotterCreatinine [Mass/Vol]0.88 mg/dLNormal0.70-1.30The [facility] HospitalComment on above:Performed By: #### LIPA, CMP, HSTROPN #### [facility] [address] [place] [address] Dr. Oh HuangGFR-AF LITHUANIAN>60Normal>=60The [facility]. [facility] HospitalComment on above:Performed By: #### LIPA, CMP, HSTROPN #### [facility] [address] [place] [address] Dr. Oh HuangGFR-NON AF LITHUANIAN>60Normal>=60The [facility] HospitalComment on above:Performed By: #### LIPA, CMP, HSTROPN #### [facility] [address] [address] [address] Oh TrotterGlobulin (S) [Mass/Vol]4.8 g/dLNormFayette County Memorial HospitalComment on above:Performed By: #### LIPA, CMP, HSTROPN #### [facility] [address] [place] [address] Dr. Oh TrotterGlucose [Mass/Vol]113 mg/dLCritically bxwp78-969Rth St. [facility] HospitalComment on above:Performed By: #### LIPA, CMP, HSTROPN #### [facility] [address] [address] [address] Oh TrotterPotassium [Moles/Vol]4.0 mmol/LNormal3.5-5.1The [facility] Comment on above:Performed By: #### LIPA, CMP, HSTROPN #### [facility] [address] [place] [address] Dr. Oh TrotterProtein [Mass/Vol]8.3 g/dLCritically high6.4-8.2The St[facility] HospitalComment on above:Performed By: #### LIPA, CMP, HSTROPN #### [facility] [address] [place] [address] Dr. Oh Lopezdium [Moles/Vol]139 mmol/WWelyyj861-224Uxn [facility] Comment on above:Performed By: #### LIPA, CMP, HSTROPN #### [facility] [address] [place] [address] Dr. Oh TrotterUrea nitrogen [Mass/Vol]15.0 mg/dLNormal7.0-18.0The [facility] HospitalComment on above:Performed By: #### LIPA, CMP, HSTROPN #### [facility] [address] [place] [address] Dr. Oh Amador nitrogen/Creatinine [Mass ratio]17.0 mg/mgNoKettering Health – Soin Medical CenterComment on above:Performed By: #### LIPA, CMP, HSTROPN #### [facility] [address] [place] [address] Dr. Oh TrotterXR ABD FLAT UP_PA German [id number] ABD FLAT UP_PA CHEXAM: XR ABD FLAT [...] Electronically authenticated by: VERA SETHI Date: 2022-07-28 22:14NoSt. [facility] AUTO DIFFon [id number] #0.0 103/ulNormal0.0-0.1[facility] HospitalComment on above:Performed By: #### LIPA, CMP, HSTROPN #### [facility] [address] [address] [address] Oh TrotterBasophils/100 WBC (Bld)0.2 %Normal0.2-2.0[facility] Comment on above:Performed By: #### LIPA CMP, HSTROPN #### [facility] [address] [address] [address] Oh Shaw #0.1 103/ulNormal0.0-0.7The St. [facility] HospitalComment on above: Performed By: #### LIPA CMP, HSTROPN #### [facility] [address] [place] [address] Dr. Oh Huangosinophils/100 WBC (Bld)0.9 %Normal0.9-7.0[facility] Comment on above:Performed By: #### LIPA, CMP, HSTROPN #### [facility] [address] [place] [address] Dr. Oh Huangrythrocyte distribution width (RBC) [Ratio]12.4 %Kkfftt11.0-15.[address] [facility] HospitalComment on above:Performed By: #### LIPA, CMP, HSTROPN #### [facility] [address] [place] [address] Dr. Oh TrotterHematocrit (Bld) [Volume fraction]44.8 %Bogawu65.0-54.0The St[facility] HospitalComment on above:Performed By: #### LIPA, CMP, HSTROPN #### [facility] [address] [place] [address] Dr. Oh TrotterHemoglobin (Bld) [Mass/Vol]15.7 g/sNHixzyi70.0-18.0The St. [facility] HospitalComment on above:Performed By: #### LIPA, CMP, HSTROPN #### [facility] [address] [place] [address] Dr. Oh Malave #0.02 10e3/ulNormal0.00-0.03The St. [facility] HospitalComment on above:Performed By: #### LIPA, CMP, HSTROPN #### [facility] [address] [place] [address] Dr. Oh Malave %0.2 %Normal0.0-0.5The [facility] HospitalComment on above: Performed By: #### LIPA, CMP, HSTROPN #### [facility] [address] [place] [address] Dr. Oh OrellanaH #3.2 103/ulNormal1.2-3.8The St. Vincent HospitalComment on above:Performed By: #### LIPA, CMP, HSTROPN #### [facility] [address] [place] [address] Dr. Oh Shahmphocytes/100 WBC (Bld)39.2 %Dovkkm18.5-60.0The Deep HospitalComment on above:Performed By: #### LIPA, CMP, HSTROPN #### [facility] [address] [address] [address] Oh Smith DIFF REQNONormalThe St. Vincent HospitalComment on above: Performed By: #### LIPA, CMP, HSTROPN #### [facility] [address] [place] [address] Dr. Oh Lau (RBC) [Entitic mass]29.3 zrIakfio28.9-34.0The St. [facility] HospitalComment on above:Performed By: #### LIPA, CMP, HSTROPN #### [facility] [address] [place] [address] Dr. Oh Lau (RBC) [Mass/Vol]35.0 g/oXVgynxp36.9-35.2The [facility] HospitalComment on above:Performed By: #### LIPA, CMP, HSTROPN #### [facility] [address] [place] [address] Dr. Oh Sahni (RBC) [Entitic vol]83.7 jEVedrfm57.0-94.0The [facility] HospitalComment on above:Performed By: #### LIPA, CMP, HSTROPN #### [facility] [address] [place] [address] Dr. Oh Johnson #0.6 103/ulNormal0.3-0.8The [facility] HospitalComment on above:Performed By: #### LIPA, CMP, HSTROPN #### [facility] [address] [place] [address] Dr. Oh Cedeñoocytes/100 WBC (Bld)7.5 %Normal1.7-12.0The [facility] Comment on above:Performed By: #### LIPA, CMP, HSTROPN #### [facility] [address] [place] [address] Dr. Oh Cruz #4.3 103/ulNormal1.4-6.5The St. [facility] HospitalComment on above:Performed By: #### LIPA, CMP, HSTROPN #### [facility] [address] [place] [address] Dr. Oh Velazquezutrophils/100 WBC (Bld)52.0 %Cggrba66.0-75.0The [facility] HospitalComment on above:Performed By: #### LIPA, CMP, HSTROPN #### [facility] [address] [place] [address] Dr. Oh TrotterPlatelet mean volume (Bld) [Entitic vol]9.8 fLNormal9.5-13.5The St. [facility] HospitalComment on above:Performed By: #### LIPA, CMP, HSTROPN #### [facility] [address] [place] [address] Dr. Oh TrotterPLT210 103/eoPemirv803-555Avx St. [facility] HospitalComment on above: Performed By: #### LIPA, CMP, HSTROPN #### [facility] [address] [place] [address] Dr. Oh TrotterRBC5.35 106/ulNormal4.70-6.10The [facility] HospitalComaspirus ontonagon hospital on above:Performed By: #### LIPA, CMP, HSTROPN #### [facility] [address] [place] [address] Dr. Oh TrotterWBC8.2 103/ulNormal4.0-11.0The [facility] HospitalComaspirus ontonagon hospital on above: Performed By: #### LIPA, CMP, HSTROPN #### [facility] [address] [place] [address] Dr. Oh TrotterOCC BLD IMMUNOASSAYon [id number] BLOODPositiveAbnormal NEGATIVEThe St. [facility] HospitalComaspirus ontonagon hospital on above:Performed By: #### PTT, PT #### [facility] [address] [place] [address] Dr. Oh Paul 14(COMP METB)on [id number] [Mass/Vol]3.9 g/dLNormal 3.4-5.0The [facility] HospitalComment on above:Performed By: #### LIPA, CMP, HSTROPN #### [facility] [address] [address] [address] Oh TrotterAlbumin/Globulin [Mass ratio]0.9 {ratio}NormalThe St. [facility] HospitalComaspirus ontonagon hospital on above:Performed By: #### LIPA, CMP, HSTROPN #### [facility] [address] [place] [address] Dr. Oh AstorgaP [Catalytic activity/Vol]98 U/KLjuqhy82-587Mzt [facility] on above:Performed By: #### LIPA, CMP, HSTROPN #### [facility] [address] [place] [address] Dr. Oh Negron [Catalytic activity/Vol]47 U/RVgshue12-69Xtw [facility] on above:Performed By: #### LIPA, CMP, HSTROPN #### [facility] [address] [place] [address] Dr. Oh Claire gap [Moles/Vol]13.8 mmol/LNormalThe [facility] Comment on above:Performed By: #### LIPA, CMP, HSTROPN #### [facility] [address] [place] [address] Dr. Oh TrotterAST [Catalytic activity/Vol]18 U/RDtetgk05-30Nhz [facility] on above:Performed By: #### LIPA, CMP, HSTROPN #### [facility] [address] [place] [address] Dr. Oh TrotterBilirubin [Mass/Vol]0.3 mg/dLNormal0.2-1.0The [facility] Comment on above:Performed By: #### LIPA, CMP, HSTROPN #### [facility] [address] [place] [address] Dr. Oh TrotterCalcium [Mass/Vol]8.8 mg/dLNormal8.5-10.1[facility] Comment on above:Performed By: #### LIPA, CMP, HSTROPN #### [facility] [address] [address] [address] Oh TrotterChloride [Moles/Vol]105 mmol/XRcbwxo98-042Yio [facility] Comment on above:Performed By: #### LIPA, CMP, HSTROPN #### [facility] [address] [address] [address] Oh TrotterCO2 [Moles/Vol]25.2 mmol/JDrzeee28.0-32.0The [facility] Comment on above:Performed By: #### LIPA, CMP, HSTROPN #### [facility] [address] [place] [address] Dr. Oh TrotterCreatinine [Mass/Vol]1.02 mg/dLNormal0.70-1.30The [facility] HospitalComment on above:Performed By: #### LIPA, CMP, HSTROPN #### [facility] [address] [place] [address] Dr. Oh HuangGFR-AF LITHUANIAN>60Normal>=60The [facility] HospitalComment on above:Performed By: #### LIPA, CMP, HSTROPN #### [facility] [address] [place] [address] Dr. Oh Mccormick-NON AF LITHUANIAN>60Normal>=60[facility] HospitalComment on above:Performed By: #### LIPA, CMP, HSTROPN #### [facility] [address] [place] [address] Dr. Oh TrotterGlobulin (S) [Mass/Vol]4.2 g/dLNormalThe St. [facility] HospitalComment on above:Performed By: #### LIPA, CMP, HSTROPN #### [facility] [address] [place] [address] Dr. Oh TrotterGlucose [Mass/Vol]104 mg/wCZlxxfg81-253Seo [facility] Comment on above:Performed By: #### LIPA, CMP, HSTROPN #### [facility] [address] [place] [address] Dr. Oh TrotterPotassium [Moles/Vol]4.0 mmol/LNormal3.5-5.1The [facility] Comment on above:Performed By: #### LIPA, CMP, HSTROPN #### [facility] [address] [address] [address] Oh TrotterProtein [Mass/Vol]8.1 g/dLNormal6.4-8.2[facility] Comment on above:Performed By: #### LIPA, CMP, HSTROPN #### [facility] [address] [place] [address] Dr. Oh TrotterSodium [Moles/Vol]140 mmol/SFqjbln160-035Poq [facility] Comment on above:Performed By: #### LIPA, CMP, HSTROPN #### [facility] [address] [place] [address] Dr. Oh TrotterUrea nitrogen [Mass/Vol]16.0 mg/dLNormal7.0-18.0[facility] HospitalComment on above:Performed By: #### LIPA, CMP, HSTROPN #### [facility] [address] [place] [address] Dr. Oh Amador nitrogen/Creatinine [Mass ratio]15.7 mg/mgNoKettering Health – Soin Medical CenterComment on above:Performed By: #### LIPA, CMP, HSTROPN #### [facility] [address] [place] [address] Dr. Oh TrotterPROTIMEon [id number] Coag (PPP) [Relative time]{INR}NormalMercy Health St. Joseph Warren HospitalComment on above:Performed By: #### PTT, PT #### [facility] [address] [place] [address] Dr. Oh Coy GUIDELINESSEE BELOWMetroHealth Cleveland Heights Medical CenterComment on above:Result Comment: DESIRED INR: 2.0 - 3.0 CONDITIONS NOT LISTED BELOW 2.5 - 3.5 FOR PROSTHETIC HEART VALVE REPLACEMENT 2.5 - 3.5 RECURRENT THROMBOSIS Performed By: #### PTT, PT #### [facility] [address] [place] [address] Dr. Oh Young Coag (PPP) [Time]9.8 sNormal9.0-11.6ThCleveland Clinic [facility] Comment on above:Performed By: #### PTT, PT #### [facility] [address] [place] [address] Dr. Oh Lozoya [id number] Coag (Bld) [Time]26.6 sJvczvg50.3-36.2[facility] HospitalComment on above:Performed By: #### PTT, PT #### [facility] [address] [place] [address] Dr. Oh TrotterCovid-19 PCR ([facility])on [id number]-CoV-2 (COVID-19) RNA SHAE+probe Ql (Unsp spec)Not detectedNormalNOT DETECTEDMercy Health St. [facility] Comment on above:Result Comment: This test is not yet approved or cleared by the [place] FDA. When there are no FDA-approved or cleared tests available, and other criteria are met, FDA can make tests available under an emergency access mechanism called an Emergency Use Authorization (EUA). The EUA for this test is supported by the Functional Analyst of Health and Human Service's (HHS's) declaration [...] with SARS-CoV-2.Performed By: #### PTT, PT #### [facility] [address] [place] [address] Dr. Oh TrotterINFLRENEENZA A AND B AGon [id number] Medical CenterComment on above:Result Comment: Negative for Flu A protein angiten. Infection due to Flu A cannot be ruled out. FluA angiten in the sample may be below the detection limit of the test.Performed By: #### LIPA, CMP, HSTROPN #### [facility] [address] [place] [address] Dr. Oh Wray [facility] HospitalComment on above: Result Comment: Negative for Flu B protein antigen. Infection due to Flu B cannot be ruled out. FluB antigen in the sample may be below the detection limit of the test.Performed By: #### LIPA, CMP, HSTROPN #### [facility] [address] [place] [address] Dr. Oh Carrillo AGNegativeNormalNEGATIVE SEE COMMENTThe [facility] on above:Performed By: #### LIPA, CMP, HSTROPN #### [facility] [address] [place] [address] Dr. Oh Ashton AGNegativeNormalNEGATIVE SEE COMMENTThe St. Vincent HospitalComment on above:Performed By: #### LIPA, CMP, HSTROPN #### [facility] [address] [place] [address] Dr. Oh Bonilla AUTO DIFFon [id number] #0.0 103/ulNormal0.0-0.1The St. [facility] HospitalComment on above:Performed By: #### PTT, PT #### [facility] [address] [place] [address] Dr. Oh TrotterBasophils/100 WBC (Bld)0.2 %Normal0.2-2.0The [facility] Comment on above:Performed By: #### PTT, PT #### [facility] [address] [place] [address] Dr. Oh Shaw #0.0 103/ulNormal0.0-0.7The St. [facility] HospitalComment on above: Performed By: #### PTT, PT #### [facility] [address] [place] [address] Dr. Oh Huangosinophils/100 WBC (Bld)0.4 %Critically low0.9-7.0The [facility] on above:Performed By: #### PTT, PT #### [facility] [address] [place] [address] Dr. Oh Huangrythrocyte distribution width (RBC) [Ratio]12.2 %Pagdie98.0-15.[address] [facility] HospitalComment on above:Performed By: #### PTT, PT #### [facility] [address] [place] [address] Dr. Oh TrotterHematocrit (Bld) [Volume fraction]45.7 %Lepqna05.0-54.0The [facility] HospitalComment on above:Performed By: #### PTT, PT #### [facility] [address] [place] [address] Dr. Oh TrotterHemoglobin (Bld) [Mass/Vol]16.0 g/xLBomqls11.0-18.0The [facility] on above:Performed By: #### PTT, PT #### [facility] [address] [place] [address] Dr. Oh Malave #0.04 10e3/ulCritically high0.00-0.03The [facility] Comment on above:Performed By: #### PTT, PT #### [facility] [address] [place] [address] Dr. Oh TrotterIG %0.4 %Normal0.0-0.5The [facility]. [facility] HospitalComment on above: Performed By: #### PTT, PT #### [facility] [address] [place] [address] Dr. Oh ShahMPH #2.8 103/ulNormal1.2-3.8The St. [facility] HospitalComment on above:Performed By: #### PTT, PT #### [facility] [address] [place] [address] Dr. Oh Shahmphocytes/100 WBC (Bld)29.5 %Dkbigi73.5-60.0The [facility] on above:Performed By: #### PTT, PT #### [facility] [address] [place] [address] Dr. Oh Smith DIFF REQNONormalThe St. Vincent HospitalComment on above: Performed By: #### PTT, PT #### [facility] [address] [place] [address] Dr. Oh Lau (RBC) [Entitic mass]29.7 wsMvqfjd97.9-34.0The Fields HospitalComment on above:Performed By: #### PTT, PT #### [facility] [address] [place] [address] Dr. Oh Lau (RBC) [Mass/Vol]35.0 g/lTOyyxzk84.9-35.2The [facility] HospitalComment on above:Performed By: #### PTT, PT #### [facility] [address] [place] [address] Dr. Oh Lau (RBC) [Entitic vol]84.8 pEOhsgcm94.0-94.0The [facility] HospitalComment on above:Performed By: #### PTT, PT #### [facility] [address] [place] [address] Dr. Oh Johnson #0.5 103/ulNormal0.3-0.8The [facility] HospitalComment on above:Performed By: #### PTT, PT #### [facility] [address] [place] [address] Dr. Oh Cedeñoocytes/100 WBC (Bld)5.2 %Normal1.7-12.0The [facility] Comment on above:Performed By: #### PTT, PT #### [facility] [address] [place] [address] Dr. Oh Cruz #6.2 103/ulNormal1.4-6.5The [facility] HospitalComment on above:Performed By: #### PTT, PT #### [facility] [address] [place] [address] Dr. Oh Velazquezutrophils/100 WBC (Bld)64.3 %Zhrprj06.0-75.0The [facility] HospitalComment on above:Performed By: #### PTT, PT #### [facility] [address] [place] [address] Dr. Oh Holmanlet mean volume (Bld) [Entitic vol]9.9 fLNormal9.5-13.5The St. [facility] HospitalComment on above:Performed By: #### PTT, PT #### [facility] [address] [place] [address] Dr. Oh TrotterPLT196 103/utEblsho585-443Vhg St. [facility] HospitalComment on above: Performed By: #### PTT, PT #### [facility] [address] [place] [address] Dr. Oh TrotterRBC5.39 106/ulNormal4.70-6.10The [facility] HospitalComment on above:Performed By: #### PTT, PT #### [facility] [address] [place] [address] Dr. Oh TrotterWBC9.6 103/ulNormal4.0-11.0The [facility] HospitalComment on above: Performed By: #### PTT, PT #### [facility] [address] [place] [address] Dr. Oh BlissDIMERon 48-60-2998E-DIMER<0.19Normal<=0.59[facility] Comment on above:Performed By: #### PTT, PT #### [facility] [address] [place] [address] Dr. Oh Delgado-DIMER COMMENTSSEE [facility] HospitalComment on above:Result Comment: Increases in D-Dimer concentration [...] hospitalization. Performed By: #### PTT, PT #### [facility] [address] [address] [address] Oh Magana URINE PROFILEon 12-44-3783Qgathhtpf Ql (U)NegativeNormal NEGATIVEMercy Health St. Joseph Warren HospitalComment on above:Performed By: #### SRAVANI UMICRO #### [facility] [address] [address] [address] Oh TrotterClarity (U)CLEARNormalCLEARMercy Health St. Joseph Warren HospitalComment on above: Performed By: #### SRAVANI UMICRO #### [facility] [address] [address] [address] Oh Maierlor (U)LT. YELLOWNormalYELLOWMercy Health St. Joseph Warren HospitalComment on above:Performed By: #### SRAVANI UMICRO #### [facility] [address] [place] [address] Dr. Oh Washburn micrscopic examination will be performed if indicated. NormalMercy Health St. Joseph Warren HospitalComment on above:Performed By: #### SRAVANI UMICRO #### [facility] [address] [place] [address] Dr. Oh TrotterGlucose Ql (U)NegativeNormalNEGATIVEMercy Health St. Joseph Warren HospitalComment on above:Performed By: #### SRAVANI UMICRO #### [facility] [address] [place] [address] Dr. Oh TrotterHemoglobin Ql (U)SMALLAbnormalNEGATIVEUniversity Hospitals [facility] on above:Performed By: #### SRAVANI UMICRO #### [facility] [address] [place] [address] Dr. Oh TrotterKetones Ql (U)NegativeNormalNEGATIVEMercy Health St. Joseph Warren HospitalComment on above:Performed By: #### SRAVANI UMICRO #### [facility] [address] [place] [address] Dr. Oh TrotterLEUKOCYTESNegativeNormalNEGATIVEMercy Health St. Joseph Warren HospitalComment on above:Performed By: #### SRAVANI UMICRO #### [facility] [address] [place] [address] Dr. Oh Eng Ql (U)NegativeNormalNEGATIVEThe St. Vincent HospitalComment on above:Performed By: #### OSVALDO LASSITER #### [facility] [address] [place] [address] Dr. Oh TrotterpH (U)6.0 [pH]Normal5-9The St. [facility] HospitalComment on above: Performed By: #### OSVALDO LASSITER #### [facility] [address] [place] [address] Dr. Oh TrotterSPEC GRAVITY1.806Psbbju4.005-<=1.025The St. [facility] HospitalComment on above:Performed By: #### OSVALDO LASSITER #### [facility] [address] [place] [address] Dr. Oh TrotterUA PROTEINNegativeNormalNEGATIVE/ TRACEThe [facility] Comment on above:Performed By: #### OSVALDO LASSITER #### [facility] [address] [place] [address] Dr. Oh Castellanos MICRO INDINDICATEDNormalThe St. Vincent HospitalComment on above: Performed By: #### OSVALDO LASSITER #### [facility] [address] [place] [address] Dr. Oh TrotterUrobilinogen Qn (U)0.2 {Federico'U}/dLNormal0.2 - 1.0The [facility] HospitalComment on above:Performed By: #### OSVALDO LASSITER #### [facility] [address] [place] [address] Dr. Oh TrotterLIPASEon 12-62-6606Xbvrxz [Catalytic activity/Vol]125.0 U/LNormal 73.0-393.0The [facility]. [facility] HospitalComment on above:Performed By: #### LIPA, CMP, HSTROPN #### [facility] [address] [place] [address] Dr. Oh TrotterPROF 14(COMP METB)on 99-54-2011Uczptyg [Mass/Vol]3.8 g/dLNormal 3.4-5.0The [facility] HospitalComment on above:Performed By: #### LIPA, CMP, HSTROPN #### [facility] [address] [place] [address] Dr. Oh TrotterAlbumin/Globulin [Mass ratio]0.8 {ratio}NormalThe St. Vincent HospitalComment on above:Performed By: #### LIPA, CMP, HSTROPN #### [facility] [address] [place] [address] Dr. Oh Sheets [Catalytic activity/Vol]77 U/RLkntql51-493Grh St. [facility] HospitalComment on above:Performed By: #### LIPA, CMP, HSTROPN #### [facility] [address] [place] [address] Dr. Oh Negron [Catalytic activity/Vol]39 U/ORrsrln92-96Yri [facility] HospitalComment on above:Performed By: #### LIPA, CMP, HSTROPN #### [facility] [address] [place] [address] Dr. Oh Claire gap [Moles/Vol]9.3 mmol/LNormalThe St. Vincent HospitalComment on above:Performed By: #### LIPA, CMP, HSTROPN #### [facility] [address] [place] [address] Dr. Oh Milner [Catalytic activity/Vol]21 U/YWrbnbw10-16Qsy St[facility] HospitalComment on above:Performed By: #### LIPA, CMP, HSTROPN #### [facility] [address] [place] [address] Dr. Oh TrotterBilirubin [Mass/Vol]0.4 mg/dLNormal0.2-1.0The [facility] Comment on above:Performed By: #### LIPA, CMP, HSTROPN #### [facility] [address] [place] [address] Dr. Oh TrotterCalcium [Mass/Vol]9.2 mg/dLNormal8.5-10.1The [facility] Comment on above:Performed By: #### LIPA, CMP, HSTROPN #### [facility] [address] [address] [address] Oh TrotterChloride [Moles/Vol]102 mmol/GZunhlt99-047JezMercy Health [facility] Comment on above:Performed By: #### LIPA, CMP, HSTROPN #### [facility] [address] [address] [address] Oh TrotterCO2 [Moles/Vol]26.6 mmol/KRvqkjf11.0-32.0[facility] Comment on above:Performed By: #### LIPA, CMP, HSTROPN #### [facility] [address] [place] [address] Dr. Oh TrotterCreatinine [Mass/Vol]1.08 mg/dLNormal0.70-1.30[facility] HospitalComment on above:Performed By: #### LIPA, CMP, HSTROPN #### [facility] [address] [place] [address] Dr. Oh HuangGFR-AF LITHUANIAN>60Normal>=60[facility] HospitalComment on above:Performed By: #### LIPA, CMP, HSTROPN #### [facility] [address] [place] [address] Dr. Oh HuangGFR-NON AF LITHUANIAN>60Normal>=60[facility] HospitalComment on above:Performed By: #### LIPA, CMP, HSTROPN #### [facility] [address] [address] [address] Oh TrotterGlobulin (S) [Mass/Vol]4.7 g/dLNormalThe St. Vincent HospitalComment on above:Performed By: #### LIPA, CMP, HSTROPN #### [facility] [address] [place] [address] Dr. Oh TrotterGlucose [Mass/Vol]103 mg/oTBxbxhw61-477GwpMercy Health St[facility] Comment on above:Performed By: #### LIPA, CMP, HSTROPN #### [facility] [address] [address] [address] Oh TrotterPotassium [Moles/Vol]3.9 mmol/LNormal3.5-5.1The [facility] Comment on above:Performed By: #### LIPA, CMP, HSTROPN #### [facility] [address] [place] [address] Dr. Oh TrotterProtein [Mass/Vol]8.5 g/dLCritically high6.4-8.2The [facility] HospitalComment on above:Performed By: #### LIPA, CMP, HSTROPN #### [facility] [address] [place] [address] Dr. Oh TrotterSodium [Moles/Vol]134 mmol/LCritically sgr466-232Dth St. [facility] HospitalComment on above:Performed By: #### LIPA, CMP, HSTROPN #### [facility] [address] [place] [address] Dr. Oh TrotterUrea nitrogen [Mass/Vol]20.0 mg/dLCritically high7.0-18.0The [facility] HospitalComment on above:Performed By: #### LIPA, CMP, HSTROPN #### [facility] [address] [place] [address] Dr. Oh Amador nitrogen/Creatinine [Mass ratio]18.5 mg/mgNoKettering Health – Soin Medical CenterComment on above:Performed By: #### LIPA, CMP, HSTROPN #### [facility] [address] [place] [address] Dr. Oh TrotterPROTIMEon 24-34-1941XLW Coag (PPP) [Relative time]1.00 {INR} NormalThe St. Vincent HospitalComment on above:Performed By: #### PTT, PT #### [facility] [address] [place] [address] Dr. Oh Coy GUIDELINESSEE BELOWMetroHealth Cleveland Heights Medical CenterComment on above:Result Comment: DESIRED INR: 2.0 - 3.0 CONDITIONS NOT LISTED BELOW 2.5 - 3.5 FOR PROSTHETIC HEART VALVE REPLACEMENT 2.5 - 3.5 RECURRENT THROMBOSIS Performed By: #### PTT, PT #### [facility] [address] [place] [address] Dr. Oh Young Coag (PPP) [Time]10.8 sNormal9.0-11.6The [facility] Comment on above:Performed By: #### PTT, PT #### [facility] [address] [place] [address] Dr. Oh Lozoya 90-28-9704mWZY Coag (Bld) [Time]27.9 bKxpxqf24.3-36.2The St. Vincent HospitalComment on above:Performed By: #### PTT, PT #### [facility] [address] [place] [address] Dr. Oh Miller, HIGH SENSITIVITYon 47-79-0574UNYYLR0.9 pg/mLNormal 4.0-76.1The [facility] HospitalComment on above:Result Comment: CUT-OFF POINTS HAVE BEEN ESTABLISHED BASED ON THE FOURTH UNIVERSAL DEFINITIONS OF MYOCARDIAL INFARCTION. THE UPPER REFERENCE LIMIT (URL) OF TROPONIN, DEFINED THE 99TH PERCENTILE OF cTnI DISTRIBUTION IN A REFERENCE POPULATION, HAS BEEN CONFIRMED THE DECISION THRESHOLD FOR AR DIAGNOSIS.Performed By: #### LIPA, CMP, HSTROPN #### [facility] [address] [place] [address] Dr. Oh DIOR ONLYon 81-05-1216UJWMOTSBAFWG SEENNormalNONE SEENMercy Health St. Joseph Warren HospitalComment on above:Performed By: #### MATHIEU LASSITERRO #### [facility] [address] [place] [address] Dr. Oh Bhat identified Cx Nom (U)NOT INDICATEDNormalThe St. Vincent HospitalComment on above:Performed By: #### AUBRIE LASSITERICRO #### [facility] [address] [place] [address] Dr. Oh Dudley SEENNormalNONE SEENMercy Health St. Joseph Warren HospitalComment on above:Performed By: #### MATHIEU LASSITERRO #### [facility] [address] [place] [address] Dr. Yilan ChangCrystals LM Nom (Urine sed)NONE SEENNormalNONE SEENThe St. Vincent HospitalComment on above:Performed By: #### ERUR, UMICRO #### [facility] [address] [place] [address] Dr. Casiano ChangEpithelial cells LM Ql (Urine sed)FEWAbnormalNONE SEEN /RAREThe St. [facility] HospitalComment on above:Performed By: #### SHAUNR, UMICRO #### [facility] [address] [place] [address] Dr. Oh TrotterMUCOUSMODERATEAbnormalNONE SEENThe St. [facility] HospitalComment on above:Performed By: #### SRAVANI, UMICRO #### [facility] [address] [place] [address] Dr. Oh TrotterFlpijATH6-4Epjahh0-5Njx St. Vincent HospitalComment on above:Performed By: #### SRAVANI, UMICRO #### [facility] [address] [place] [address] Dr. Oh TrotterWBCNONE SEENNormalNONE SEENThe St. Vincent HospitalComment on above: Performed By: #### SRAVANI, UMICRO #### [facility] [address] [place] [address] Dr. Oh TrotterXR ABD FLAT UP_PA German 80-01-5245LV ABD FLAT UP_PA CHEXAM: Acute abdomen series: [...] Electronically authenticated by: LUCY JEWELL Date: 2022-03-06 15:55[facility] CenterXR CSPINE 2_3 VIEWSon 34-43-4513XM CSPINE 2_3 VIEWSEXAM: C-spine HISTORY: Neck pain [...] Electronically authenticated by: LUCY JEWELL Date: 2022-03-06 15:54NormalThAultman Hospital AUTO DIFFon [id number] #0.0 103/ulNormal0.0-0.1[facility] HospitalComment on above:Performed By: #### LIPA, CMP, HSTROPN #### [facility] [address] [place] [address] Dr. Oh TrotterBasophils/100 WBC (Bld)0.2 %Normal0.2-2.0[facility] Comment on above:Performed By: #### LIPA, CMP, HSTROPN #### [facility] [address] [place] [address] Dr. Oh Shaw #0.1 103/ulNormal0.0-0.7The [facility] HospitalComment on above: Performed By: #### LIPA, CMP, HSTROPN #### [facility] [address] [place] [address] Dr. Oh Huangosinophils/100 WBC (Bld)1.0 %Normal0.9-7.0[facility] Comment on above:Performed By: #### LIPA, CMP, HSTROPN #### [facility] [address] [place] [address] Dr. Oh Huangrythrocyte distribution width (RBC) [Ratio]13.0 %Umnrfy68.0-15.[address] [facility] HospitalComment on above:Performed By: #### LIPA, CMP, HSTROPN #### [facility] [address] [place] [address] Dr. Oh TrotterHematocrit (Bld) [Volume fraction]46.6 %Oeerux27.0-54.0The [facility] HospitalComment on above:Performed By: #### LIPA, CMP, HSTROPN #### [facility] [address] [place] [address] Dr. Oh TrotterHemoglobin (Bld) [Mass/Vol]15.8 g/qCXbozxh09.0-18.0The [facility] HospitalComment on above:Performed By: #### LIPA, CMP, HSTROPN #### [facility] [address] [place] [address] Dr. Oh Malave #0.02 10e3/ulNormal0.00-0.03The [facility] HospitalComment on above:Performed By: #### LIPA, CMP, HSTROPN #### [facility] [address] [place] [address] Dr. Oh Malave %0.2 %Normal0.0-0.5The [facility] HospitalComment on above: Performed By: #### LIPA, CMP, HSTROPN #### [facility] [address] [place] [address] Dr. Oh Aldana #1.6 103/ulNormal1.2-3.8The [facility] HospitalComment on above:Performed By: #### LIPA, CMP, HSTROPN #### [facility] [address] [place] [address] Dr. Oh Orellanahocytes/100 WBC (Bld)15.3 %Critically low20.5-60.0The [facility] HospitalComment on above:Performed By: #### LIPA, CMP, HSTROPN #### [facility] [address] [place] [address] Dr. Oh SaldanaUAL DIFF REQNONormalThe St. Vincent HospitalComment on above: Performed By: #### LIPA, CMP, HSTROPN #### [facility] [address] [place] [address] Dr. Oh Valentin (RBC) [Entitic mass]30.1 roIqszcr44.9-34.0The [facility] HospitalComment on above:Performed By: #### LIPA, CMP, HSTROPN #### [facility] [address] [place] [address] Dr. Oh Lau (RBC) [Mass/Vol]33.9 g/cDEjqwaa47.9-35.2The [facility] HospitalComment on above:Performed By: #### LIPA, CMP, HSTROPN #### [facility] [address] [place] [address] Dr. Oh Lau (RBC) [Entitic vol]88.8 eXZdporc03.0-94.0The [facility] HospitalComment on above:Performed By: #### LIPA, CMP, HSTROPN #### [facility] [address] [place] [address] Dr. Oh Johnson #0.7 103/ulNormal0.3-0.8The [facility] HospitalComment on above:Performed By: #### LIPA, CMP, HSTROPN #### [facility] [address] [place] [address] Dr. Oh Cedeñoocytes/100 WBC (Bld)6.8 %Normal1.7-12.0[facility] Comment on above:Performed By: #### LIPA, CMP, HSTROPN #### [facility] [address] [place] [address] Dr. Oh Cruz #7.9 103/ulCritically high1.4-6.5The [facility] Comment on above:Performed By: #### LIPA, CMP, HSTROPN #### [facility] [address] [place] [address] Dr. Oh Velazquezutrophils/100 WBC (Bld)76.5 %Critically high43.0-75.0The [facility] HospitalComment on above:Performed By: #### LIPA, CMP, HSTROPN #### [facility] [address] [place] [address] Dr. Oh Holmanlet mean volume (Bld) [Entitic vol]9.5 fLNormal9.5-13.5The [facility] HospitalComment on above:Performed By: #### LIPA, CMP, HSTROPN #### [facility] [address] [place] [address] Dr. Oh TrotterPLT191 103/psUenyij236-542Bwh [facility]. [facility] HospitalComment on above: Performed By: #### LIPA, CMP, HSTROPN #### [facility] [address] [place] [address] Dr. Oh TrotterRBC5.25 106/ulNormal4.70-6.10The [facility] HospitalComment on above:Performed By: #### LIPA, CMP, HSTROPN #### [facility] [address] [place] [address] Dr. Oh TrotterWBC10.4 103/ulNormal4.0-11.0The [facility] HospitalComment on above:Performed By: #### LIPA, CMP, HSTROPN #### [facility] [address] [place] [address] Dr. Oh TrotterPROF CHEM 8 (BAS METB)on 97-77-8275Rjatk gap [Moles/Vol]9.7 mmol/LNormalThe St. [facility] HospitalComment on above:Performed By: #### LIPA, CMP, HSTROPN #### [facility] [address] [place] [address] Dr. Oh TrotterCalcium [Mass/Vol]8.9 mg/dLNormal8.5-10.1The [facility] Comment on above:Performed By: #### LIPA, CMP, HSTROPN #### [facility] [address] [place] [address] Dr. Oh TrotterChloride [Moles/Vol]102 mmol/DZgopxu35-616Bzc [facility] Comment on above:Performed By: #### LIPA, CMP, HSTROPN #### [facility] [address] [place] [address] Dr. Oh TrotterCO2 [Moles/Vol]29.1 mmol/BYimiya26.0-32.0[facility] Comment on above:Performed By: #### LIPA, CMP, HSTROPN #### [facility] [address] [place] [address] Dr. Oh TrotterCreatinine [Mass/Vol]1.10 mg/dLNormal0.70-1.30The [facility] HospitalComment on above:Performed By: #### LIPA, CMP, HSTROPN #### [facility] [address] [place] [address] Dr. Oh HuangGFR-AF LITHUANIAN>60Normal>=60The [facility] HospitalComment on above:Performed By: #### LIPA, CMP, HSTROPN #### [facility] [address] [place] [address] Dr. Oh HuangGFR-NON AF LITHUANIAN>60Normal>=60The [facility] HospitalComment on above:Performed By: #### LIPA, CMP, HSTROPN #### [facility] [address] [place] [address] Dr. Oh TrotterGlucose [Mass/Vol]114 mg/dLCritically dsod53-823Lfp [facility] HospitalComment on above:Performed By: #### LIPA, CMP, HSTROPN #### [facility] [address] [place] [address] Dr. Oh TrotterPotassium [Moles/Vol]3.8 mmol/LNormal3.5-5.1[facility] Comment on above:Performed By: #### LIPA, CMP, HSTROPN #### [facility] [address] [place] [address] Dr. Oh TrotterSodium [Moles/Vol]137 mmol/FKjwsga362-484Izv [facility] Comment on above:Performed By: #### LIPA, CMP, HSTROPN #### [facility] [address] [place] [address] Dr. Oh TrotterUrea nitrogen [Mass/Vol]10.0 mg/dLNormal7.0-18.0The [facility] HospitalComment on above:Performed By: #### LIPA, CMP, HSTROPN #### [facility] [address] [address] [address] Oh Amador nitrogen/Creatinine [Mass ratio]9.1 mg/mgNormalThe St. [facility] HospitalComment on above:Performed By: #### LIPA, CMP, HSTROPN #### [facility] [address] [address] [address] Oh Chris SUKUMAR ADMITon 21-46-3151FO [Catalytic activity/Vol]97 U/L Qvqnsa41-479Rwz [facility] Jacksonment on above:Performed By: #### LIPA, CMP, HSTROPN #### [facility] [address] [address] [address] Oh Garcias.MB [Mass/Vol]0.75 ng/mLNormal<=3.60The [facility] Comment on above:Performed By: #### LIPA, CMP, HSTROPN #### [facility] [address] [place] [address] Dr. Oh TrotterHSTROP4.4 pg/mLNormal4.0-76.1The [facility] on above:Result Comment: CUT-OFF POINTS HAVE BEEN ESTABLISHED BASED ON THE FOURTH UNIVERSAL DEFINITIONS OF MYOCARDIAL INFARCTION. THE UPPER REFERENCE LIMIT (URL) OF TROPONIN, DEFINED THE 99TH PERCENTILE OF cTnI DISTRIBUTION IN A REFERENCE POPULATION, HAS BEEN CONFIRMED THE DECISION THRESHOLD FOR AR DIAGNOSIS.Performed By: #### LIPA, CMP, HSTROPN #### [facility] [address] [place] [address] Dr. Oh TrotterMYO54 ng/dDQuxeik63-22Txa [facility] on above: Performed By: #### LIPA, CMP, HSTROPN #### [facility] [address] [place] [address] Dr. Oh Bonilla AUTO DIFFon 41-74-5716KFKP #0.0 103/ulNormal0.0-0.1The [facility] on above:Performed By: #### PTT, PT #### [facility] [address] [place] [address] Dr. Oh TrotterBasophils/100 WBC (Bld)0.1 %Critically low0.2-2.0The [facility] on above:Performed By: #### PTT, PT #### [facility] [address] [place] [address] Dr. Oh Shaw #0.0 103/ulNormal0.0-0.7The [facility] HospitalComment on above: Performed By: #### PTT, PT #### [facility] [address] [place] [address] Dr. Oh Huangosinophils/100 WBC (Bld)0.3 %Critically low0.9-7.0The [facility] on above:Performed By: #### PTT, PT #### [facility] [address] [place] [address] Dr. Oh Huangrythrocyte distribution width (RBC) [Ratio]12.5 %Iwbjsv66.0-15.0 [facility] on above:Performed By: #### PTT, PT #### [facility] [address] [place] [address] Dr. Oh TrotterHematocrit (Bld) [Volume fraction]47.1 %Pbhike52.0-54.0The [facility] on above:Performed By: #### PTT, PT #### [facility] [address] [place] [address] Dr. Oh TrotterHemoglobin (Bld) [Mass/Vol]16.7 g/wPIzxrxb20.0-18.0[facility] on above:Performed By: #### PTT, PT #### [facility] [address] [place] [address] Dr. Oh Malave #0.02 10e3/ulNormal0.00-0.03The [facility] on above:Performed By: #### PTT, PT #### [facility] [address] [place] [address] Dr. Oh TrotterIG %0.3 %Normal0.0-0.5The [facility] HospitalComment on above: Performed By: #### PTT, PT #### [facility] [address] [place] [address] Dr. Oh Aldana #2.3 103/ulNormal1.2-3.8The [facility] HospitalComment on above:Performed By: #### PTT, PT #### [facility] [address] [place] [address] Dr. Oh Orellanahocytes/100 WBC (Bld)31.7 %Icqzin47.5-60.0The [facility] HospitalComment on above:Performed By: #### PTT, PT #### [facility] [address] [place] [address] Dr. Oh Smith DIFF REQNONormalThe St. [facility] HospitalComment on above: Performed By: #### PTT, PT #### [facility] [address] [place] [address] Dr. Oh Valentin (RBC) [Entitic mass]29.9 dyPbxzni93.9-34.0The [facility] HospitalComment on above:Performed By: #### PTT, PT #### [facility] [address] [place] [address] Dr. Oh Lau (RBC) [Mass/Vol]35.5 g/dLCritically high29.9-35.2The [facility] HospitalComment on above:Performed By: #### PTT, PT #### [facility] [address] [place] [address] Dr. Oh Sahni (RBC) [Entitic vol]84.4 sDHowdih95.0-94.0The [facility] HospitalComment on above:Performed By: #### PTT, PT #### [facility] [address] [place] [address] Dr. Oh Johnson #0.4 103/ulNormal0.3-0.8The [facility] HospitalComment on above:Performed By: #### PTT, PT #### [facility] [address] [place] [address] Dr. Oh Cedeñoocytes/100 WBC (Bld)4.9 %Normal1.7-12.0The [facility] Comment on above:Performed By: #### PTT, PT #### [facility] [address] [place] [address] Dr. Oh Cruz #4.6 103/ulNormal1.4-6.5The [facility] HospitalComment on above:Performed By: #### PTT, PT #### [facility] [address] [place] [address] Dr. Oh Velazquezutrophils/100 WBC (Bld)62.7 %Llfnzz16.0-75.0The [facility] HospitalComment on above:Performed By: #### PTT, PT #### [facility] [address] [place] [address] Dr. Oh Holmanlet mean volume (Bld) [Entitic vol]10.3 fLNormal9.5-13.5The [facility] HospitalComment on above:Performed By: #### PTT, PT #### [facility] [address] [place] [address] Dr. Oh TrotterPLT225 103/jdTxxucg260-977Jbc [facility] HospitalComment on above: Performed By: #### PTT, PT #### [facility] [address] [place] [address] Dr. Oh TrotterRBC5.58 106/ulNormal4.70-6.10The [facility] HospitalComment on above:Performed By: #### PTT, PT #### [facility] [address] [place] [address] Dr. Oh TrotterWBC7.3 103/ulNormal4.0-11.0The [facility] HospitalComment on above: Performed By: #### PTT, PT #### [facility] [address] [place] [address] Dr. Oh Delgado-DIMERon 18-25-2726M-DIMER<0.19Normal<=0.59The [facility] Comment on above:Performed By: #### PTT, PT #### [facility] [address] [place] [address] Dr. Oh TrotterD-DIMER COMMENTSSEE BELOWNormAvita Health System [facility] on above:Result Comment: Increases in D-Dimer [...] hospitalization. Performed By: #### PTT, PT #### [facility] [address] [place] [address] Dr. Oh TrotterLIPASEon 34-96-3821Wgjlwd [Catalytic activity/Vol]127.0 U/LNormal 73.0-393.0The [facility] on above:Performed By: #### LIPA, CMP, HSTROPN #### [facility] [address] [place] [address] Dr. Oh TrotterPROF 14(COMP METB)on 74-09-0251Fipqeeo [Mass/Vol]4.0 g/dLNormal 3.4-5.0The [facility] on above:Performed By: #### LIPA, CMP, HSTROPN #### [facility] [address] [place] [address] Dr. Oh TrotterAlbumin/Globulin [Mass ratio]0.9 {ratio}NormalThe [facility] on above:Performed By: #### LIPA, CMP, HSTROPN #### [facility] [address] [place] [address] Dr. Oh Sheets [Catalytic activity/Vol]73 U/NPlouii07-801Ftn [facility] on above:Performed By: #### LIPA, CMP, HSTROPN #### [facility] [address] [place] [address] Dr. Oh Negron [Catalytic activity/Vol]45 U/TAkgovu07-18Uso [facility] HospitalComment on above:Performed By: #### LIPA, CMP, HSTROPN #### [facility] [address] [address] [address] Oh TrotterAnion gap [Moles/Vol]15.4 mmol/LNormalMercy Health St[facility] Comment on above:Performed By: #### LIPA, CMP, HSTROPN #### [facility] [address] [address] [address] Oh TrotterAST [Catalytic activity/Vol]25 U/MMllshx52-78Aqx [facility] HospitalComment on above:Performed By: #### LIPA, CMP, HSTROPN #### [facility] [address] [place] [address] Dr. Oh TrotterBilirubin [Mass/Vol]0.9 mg/dLNormal0.2-1.0[facility] Comment on above:Performed By: #### LIPA, CMP, HSTROPN #### [facility] [address] [place] [address] Dr. Oh TrotterCalcium [Mass/Vol]9.3 mg/dLNormal8.5-10.1[facility] Comment on above:Performed By: #### LIPA, CMP, HSTROPN #### [facility] [address] [place] [place] [address] Dr. Oh TrotterChloride [Moles/Vol]103 mmol/FNvqapb33-528EusMercy Health St[facility] Comment on above:Performed By: #### LIPA, CMP, HSTROPN #### [facility] [address] [place] [address] Dr. Oh TrotterCO2 [Moles/Vol]20.4 mmol/LCritically low21.0-32.0The [facility]. Vincent HospitalComment on above:Performed By: #### LIPA, CMP, HSTROPN #### [facility] [address] [place] [address] Dr. Oh TrotterCreatinine [Mass/Vol]1.17 mg/dLNormal0.70-1.30The Fields HospitalComment on above:Performed By: #### LIPA, CMP, HSTROPN #### [facility] [address] [address] [address] Oh HuangGFR-AF LITHUANIAN>60Normal>=60The [facility]. Vincent HospitalComment on above:Performed By: #### LIPA, CMP, HSTROPN #### [facility] [address] [address] [address] Oh HuangGFR-NON AF LITHUANIAN>60Normal>=60The [facility]. Vincent HospitalComment on above:Performed By: #### LIPA, CMP, HSTROPN #### [facility] [address] [place] [address] Dr. Oh TrotterGlobulin (S) [Mass/Vol]4.6 g/dLNormalThe St. Vincent HospitalComment on above:Performed By: #### LIPA, CMP, HSTROPN #### [facility] [address] [place] [address] Dr. Oh TrotterGlucose [Mass/Vol]127 mg/dLCritically yrfx48-834Fcw St. Vincent HospitalComment on above:Performed By: #### LIPA, CMP, HSTROPN #### [facility] [address] [place] [address] Dr. Oh TrotterPotassium [Moles/Vol]3.8 mmol/LNormal3.5-5.1The [facility] Comment on above:Performed By: #### LIPA, CMP, HSTROPN #### [facility] [address] [place] [address] Dr. Oh TrotterProtein [Mass/Vol]8.6 g/dLCritically high6.4-8.2The [facility] Vincent HospitalComment on above:Performed By: #### LIPA, CMP, HSTROPN #### [facility] [address] [place] [address] Dr. Oh TrotterSodium [Moles/Vol]135 mmol/LCritically kfl877-180Baq St. Vincent HospitalComment on above:Performed By: #### LIPA, CMP, HSTROPN #### [facility] [address] [address] [address] Oh TrotterUrea nitrogen [Mass/Vol]12.0 mg/dLNormal7.0-18.0The St. Vincent HospitalComment on above:Performed By: #### LIPA, CMP, HSTROPN #### [facility] [address] [address] [address] Oh TrotterUrea nitrogen/Creatinine [Mass ratio]10.3 mg/mgNoKettering Health – Soin Medical CenterComment on above:Performed By: #### LIPA, CMP, HSTROPN #### [facility] [address] [address] [address] Oh TrotterXR CHEST 1 Von 63-98-1552CY CHEST 1 VEXAM: XR CHEST 1 V [...] Electronically authenticated by: GALDINO ARROYO Date: 2021-10-16 13:09[facility] CenterBNPsychiatric Hospital, [facility]ol[facility] 2001 68-32-5845Optegwuzebg peptide B (Bld) [Mass/Vol]9.0 pg/mL Normal<=450.0The [facility] on above:Performed By: #### HSTROPN, TSH, BNP, CMP #### [facility] [address] [place] [address] Dr. Oh TrotterCBC AUTO DIFFon 45-37-3847JXTJ #0.0 103/ulNormal0.0-0.1The [facility] on above:Performed By: #### LIPA, CMP, HSTROPN #### [facility] [address] [place] [address] Dr. Oh TrotterBasophils/100 WBC (Bld)0.1 %Critically low0.2-2.0The Fields HospitalComment on above:Performed By: #### LIPA, CMP, HSTROPN #### [facility] [address] [place] [address] Dr. Oh Shaw #0.1 103/ulNormal0.0-0.7The [facility] on above: Performed By: #### LIPA, CMP, HSTROPN #### [facility] [address] [place] [address] Dr. Oh Huangosinophils/100 WBC (Bld)0.6 %Critically low0.9-7.0The [facility] on above:Performed By: #### LIPA, CMP, HSTROPN #### [facility] [address] [place] [address] Dr. Oh Huangrythrocyte distribution width (RBC) [Ratio]12.5 %Tovbtk67.0-15.0 The [facility] on above:Performed By: #### LIPA, CMP, HSTROPN #### [facility] [address] [place] [address] Dr. Oh TrotterHematocrit (Bld) [Volume fraction]48.3 %Dhhmyv79.0-54.0The [facility] on above:Performed By: #### LIPA, CMP, HSTROPN #### [facility] [address] [place] [address] Dr. Oh TrotterHemoglobin (Bld) [Mass/Vol]16.7 g/kMVocujq87.0-18.0The [facility] on above:Performed By: #### LIPA, CMP, HSTROPN #### [facility] [address] [place] [address] Dr. Oh Malave #0.01 10e3/ulNormal0.00-0.03The [facility] on above:Performed By: #### LIPA, CMP, HSTROPN #### [facility] [address] [place] [address] Dr. Oh Malave %0.1 %Normal0.0-0.5The St. Vincent HospitalComment on above: Performed By: #### LIPA, CMP, HSTROPN #### [facility] [address] [place] [address] Dr. Oh Aldana #3.5 103/ulNormal1.2-3.8The [facility] on above:Performed By: #### LIPA, CMP, HSTROPN #### [facility] [address] [place] [address] Dr. Oh Orellanahocytes/100 WBC (Bld)38.8 %Ayxisd67.5-60.0The [facility] HospitalComment on above:Performed By: #### LIPA, CMP, HSTROPN #### [facility] [address] [place] [address] Dr. Oh Smith DIFF REQNONormalThe St. Vincent HospitalComment on above: Performed By: #### LIPA, CMP, HSTROPN #### [facility] [address] [place] [address] Dr. Oh Lau (RBC) [Entitic mass]29.3 doSexisl28.9-34.0The [facility] on above:Performed By: #### LIPA, CMP, HSTROPN #### [facility] [address] [place] [address] Dr. Oh Lau (RBC) [Mass/Vol]34.6 g/vIFndrey06.9-35.2The [facility] HospitalComment on above:Performed By: #### LIPA, CMP, HSTROPN #### [facility] [address] [place] [address] Dr. Oh Lau (RBC) [Entitic vol]84.9 pMCdzhlr83.0-94.0The [facility] on above:Performed By: #### LIPA, CMP, HSTROPN #### [facility] [address] [place] [address] Dr. Oh Johnson #0.5 103/ulNormal0.3-0.8The [facility] on above:Performed By: #### LIPA, CMP, HSTROPN #### [facility] [address] [address] [address] Oh Cedeñoocytes/100 WBC (Bld)5.4 %Normal1.7-12.0The [facility] Comment on above:Performed By: #### LIPA, CMP, HSTROPN #### [facility] [address] [place] [address] Dr. Oh VelazquezUT #4.9 103/ulNormal1.4-6.5The [facility] on above:Performed By: #### LIPA, CMP, HSTROPN #### [facility] [address] [place] [address] Dr. Oh Velazquezutrophils/100 WBC (Bld)55.0 %Zqrujv57.0-75.0The [facility] on above:Performed By: #### LIPA, CMP, HSTROPN #### [facility] [address] [place] [address] Dr. Oh TrotterPlatelet mean volume (Bld) [Entitic vol]9.7 fLNormal9.5-13.5The [facility] on above:Performed By: #### LIPA, CMP, HSTROPN #### [facility] [address] [place] [address] Dr. Oh TrotterPLT227 103/lcWriqat614-171Wzq [facility] on above: Performed By: #### LIPA, CMP, HSTROPN #### [facility] [address] [place] [address] Dr. Oh TrotterRBC5.69 106/ulNormal4.70-6.10The [facility] on above:Performed By: #### LIPA, CMP, HSTROPN #### [facility] [address] [place] [address] Dr. Oh TrotterWBC8.9 103/ulNormal4.0-11.0The [facility] on above: Performed By: #### LIPA, CMP, HSTROPN #### [facility] [address] [address] [address] Oh Delgado-DIMERon 59-92-1679I-DIMER0.19 mg/L FEUNormal<=0.59The [facility] on above:Performed By: #### LIPA, CMP, HSTROPN #### [facility] [address] [place] [address] Dr. Oh Delgado-DIMER COMMENTSSEE [facility] on above:Result Comment: Increases in D-Dimer [...] Performed By: #### LIPA, CMP, HSTROPN #### [facility] [address] [place] [address] Dr. Oh TrotterPROF 14(COMP METB)on 92-84-2585Qajsqhd [Mass/Vol]3.9 g/dLNormal 3.4-5.0The [facility] on above:Performed By: #### HSTROPN, TSH, BNP, CMP #### [facility] [address] [place] [address] Dr. Oh TrotterAlbumin/Globulin [Mass ratio]0.8 {ratio}NormalThe [facility] on above:Performed By: #### HSTROPN, TSH, BNP, CMP #### [facility] [address] [place] [address] Dr. Oh Sheets [Catalytic activity/Vol]73 U/XPjbebc27-057TocMercy Health St[facility] on above:Performed By: #### HSTROPN, TSH, BNP, CMP #### [facility] [address] [place] [address] Dr. Oh Negron [Catalytic activity/Vol]48 U/TCanyxw42-47Gzq St. [facility] HospitalComment on above:Performed By: #### HSTROPN, TSH, BNP, CMP #### [facility] [address] [address] [address] Oh Smithon gap [Moles/Vol]14.9 mmol/LNormalMercy Health St. [facility] Comment on above:Performed By: #### HSTROPN, TSH, BNP, CMP #### [facility] [address] [place] [address] Dr. Oh TrotterAST [Catalytic activity/Vol]22 U/MXoioia01-07Vrw St. [facility] HospitalComment on above:Performed By: #### HSTROPN, TSH, BNP, CMP #### [facility] [address] [place] [address] Dr. Oh TrotterBilirubin [Mass/Vol]0.4 mg/dLNormal0.2-1.0[facility] Comment on above:Performed By: #### HSTROPN, TSH, BNP, CMP #### [facility] [address] [place] [address] Dr. Oh TrotterCalcium [Mass/Vol]9.2 mg/dLNormal8.5-10.1[facility] Comment on above:Performed By: #### HSTROPN, TSH, BNP, CMP #### [facility] [address] [address] [address] Oh TrotterChloride [Moles/Vol]102 mmol/YDtshao69-063Tbj [facility] Comment on above:Performed By: #### HSTROPN, TSH, BNP, CMP #### [facility] [address] [place] [address] Dr. Oh TrotterCO2 [Moles/Vol]23.7 mmol/TRpcquw39.0-32.0The [facility] Comment on above:Performed By: #### HSTROPN, TSH, BNP, CMP #### [facility] [address] [place] [address] Dr. Yilan ChangCreatinine [Mass/Vol]1.14 mg/dLNormal0.70-1.30The [facility] HospitalComment on above:Performed By: #### HSTROPN, TSH, BNP, CMP #### [facility] [address] [address] [address] Oh HuangGFR-AF LITHUANIAN>60Normal>=60The [facility] HospitalComment on above:Performed By: #### HSTROPN, TSH, BNP, CMP #### [facility] [address] [address] [address] Oh HuangGFR-NON AF LITHUANIAN>60Normal>=60The [facility] HospitalComment on above:Performed By: #### HSTROPN, TSH, BNP, CMP #### [facility] [address] [place] [address] Dr. Oh TrotterGlobulin (S) [Mass/Vol]4.7 g/dLNormalThe St. [facility] HospitalComment on above:Performed By: #### HSTROPN, TSH, BNP, CMP #### [facility] [address] [place] [address] Dr. Oh TrotterGlucose [Mass/Vol]120 mg/dLCritically xtdd74-070Wda [facility] on above:Performed By: #### HSTROPN, TSH, BNP, CMP #### [facility] [address] [place] [address] Dr. Oh TrotterPotassium [Moles/Vol]3.6 mmol/LNormal3.5-5.1The [facility] Comment on above:Performed By: #### HSTROPN, TSH, BNP, CMP #### [facility] [address] [place] [address] Dr. Oh TrotterProtein [Mass/Vol]8.6 g/dLCritically high6.4-8.2The [facility] HospitalComment on above:Performed By: #### HSTROPN, TSH, BNP, CMP #### [facility] [address] [place] [address] Dr. Oh TrotterSodium [Moles/Vol]137 mmol/WSodsbq706-083[facility] Comment on above:Performed By: #### HSTROPN, TSH, BNP, CMP #### [facility] [address] [place] [address] Dr. Oh Amador nitrogen [Mass/Vol]12.0 mg/dLNormal7.0-18.0[facility] HospitalComment on above:Performed By: #### HSTROPN, TSH, BNP, CMP #### [facility] [address] [place] [address] Dr. Oh Amador nitrogen/Creatinine [Mass ratio]10.5 mg/mgNoKettering Health – Soin Medical CenterComment on above:Performed By: #### HSTROPN, TSH, BNP, CMP #### [facility] [address] [place] [address] Dr. Oh Frey 37-67-2672PAH Coag (PPP) [Relative time]0.94 {INR} NormalThe St. Vincent HospitalComment on above:Performed By: #### LIPA, CMP, HSTROPN #### [facility] [address] [place] [address] Dr. Oh Coy GUIDELINESSEE BELOWMetroHealth Cleveland Heights Medical CenterComment on above:Result Comment: DESIRED INR: 2.0 - 3.0 CONDITIONS NOT LISTED BELOW 2.5 - 3.5 FOR PROSTHETIC HEART VALVE REPLACEMENT 2.5 - 3.5 RECURRENT THROMBOSIS Performed By: #### LIPA, CMP, HSTROPN #### [facility] [address] [place] [address] Dr. Oh TrotterPT Coag (PPP) [Time]10.2 sNormal9.0-11.6The [facility] Comment on above:Performed By: #### LIPA, CMP, HSTROPN #### [facility] [address] [place] [address] Dr. Oh Lozoya 47-02-9907yFSP Coag (Bld) [Time]26.6 sGsszeb66.3-36.2[facility] HospitalComment on above:Performed By: #### LIPA, CMP, HSTROPN #### [facility] [address] [address] [address] Oh Miller, HIGH SENSITIVITYon 02-12-8874WMBGKL1.4 pg/mLCritically low4.0-76.1[facility] on above:Result Comment: CUT-OFF POINTS HAVE BEEN ESTABLISHED BASED ON THE FOURTH UNIVERSAL DEFINITIONS OF MYOCARDIAL INFARCTION. THE UPPER REFERENCE LIMIT (URL) OF TROPONIN, DEFINED THE 99TH PERCENTILE OF cTnI DISTRIBUTION IN A REFERENCE POPULATION, HAS BEEN CONFIRMED THE DECISION THRESHOLD FOR AR DIAGNOSIS.Performed By: #### PTT, PT #### [facility] [address] [place] [address] Dr. Oh Khanna 05-19-8295GGI6.085 uIU/mLNormal0.358-3.740[facility] on above:Performed By: #### HSTROPN, TSH, BNP, CMP #### [facility] [address] [place] [address] Dr. Oh Reid [facility] [place] BELOWMetroHealth Cleveland Heights Medical CenterComment on above: Result Comment: <0.34 UIU/ml HYPERTHYROID 0.34-5.60 UIU/ml EUTHYROID >5.60 UIU/ml HYPOTHYROIDPerformed By: #### HSTROPN, TSH, BNP, CMP #### [facility] [address] [place] [address] Dr. Oh TrotterXR ABD FLAT UP_PA German 50-86-3108HD ABD FLAT UP_PA CHEXAMINATION: XR ABD FLAT [...] Electronically authenticated by: OTTO POLANCO Date: 2021-09-15 19:35[facility] CenterXR CHEST 1 Von 10-14-8647DS CHEST 1 VCXR HISTORY: Shortness of breath. [...] Electronically authenticated by: ELIZABETH TURNER Date: 2021-09-06 23:38[facility] Vital Signs Date TimeVital SignValuePerforming MbtihppatSakyusaz83-11-3558 03:47-0400 Diastolic blood qgylmzks05 mm[Hg]Nidal Choujaa DO Work Phone: [phone] [place], [place] 9026210-05-2025 03:47-0400 Heart rate88 /minNidal Choujaa DO Work Phone: [phone]10-05-2025 03:47-0400 Respiratory rate14 /minNidal Choujaa DO Work Phone: [phone]10-05-2025 03:47-0400 SaO2% (BldA) [Mass fraction]97 %Nidal Choujaa DO Work Phone: [phone]10-05-2025 03:47-0400 Systolic blood wrdewsmn067 mm[Hg]Nidal Choujaa DO Work Phone: [phone] [place], [place] 9026210-05-2025 00:47-0400 Body mbtifsibdhs61.7 [degF]Nidal Choujaa DO Work Phone: [phone]10-05-2025 00:46-0400 Body yifzox761.96 cmNidal Choujaa DO Work Phone: [phone]10-05-2025 00:46-0400 Body nbmfua274.9 kgNidal Choujaa DO Work Phone: [facility]2024 15:26-0400 Blood Pressure LocationMichael NILL 107-9430Unaubc-Lllch General Surgery Yspainox06-14-8921 15:26-0400Diastolic blood itrjkotx37 mm[Hg]Lucy NILL [phone]-Qgofl General Surgery Nqpnjxea09-34-1512 15:26-0400Heart rate80 /minMichael NILL 689-0212Tfpqvj-MlbwgUniversity [facility]2024 15:26-0400Respiratory rate16 /minMichael NILL 400-5332Uptlge-DvgdtUniversity Hospitals Par[facility] Center2024 15:26-0400Systolic blood qsfxeknq589 mm[Hg]Lucy NILL 376-6612Iaehln-FqlpxUniversity [facility]als [facility] Encounters Encounter DateEncounter TypeCare ProviderFacilityStart: 02-04-2025 End: 55-33-8942Fozkisguw department patient visitNidal Choreidjaa DO Work Phone: [phone]-Pnlmmgksq Room Work Phone: Start: 03-14-2024 End: 82-49-5873mvpvxxzuavSCTCIVIMartin Memorial Hospitaltart: 71-05-1685zsbaxsndgpWODVVDLIB EMERITAAvita Health System Bucyrus Hospitaltart: 02-29-2024 End: 94-98-1218jfvsemvdeoAFBYXNBUK Healthcaretart: 02-23-2024 End: 59-99-6917duacoqcyekDLKWTYUUK Healthcaretart: 12-21-2023 End: 30-25-1108izjyrabbljVzvepdy R NILLFacility:[facility] Northtart: 12-21-2023 End: 53-58-5476Bceojpl encounter procedureMichael R NILL [phone]-Vrmro General Surgery Fields Start: 08-09-2022 End: 57-56-1113aaajqjuesfHKXMLC CRAMERFacility:I6Hyoff: 07-28-2022 End: 12-29-8626qjltaxdgbsMSDBZO CRAMERFacility:U8Aztej: 06-24-2022 End: 70-80-6370gvqucoyfvxEU LUCY PAN .Facility:P8Utdko: 05-23-2022 End: 15-47-3440gusbzfuciqXXJJZT CRAMERFacility:I6Huukw: 05-11-2022 End: 44-70-0304aefcyugnwjXXJXZH CRAMERFacility:F4Moszs: 05-02-2022 End: 19-53-6369wyisbefwsbRBCJXB CRAMERFacility:Y8Ncalm: 03-30-2022 End: 50-72-0840ozaoeliueeAW REGGIE ANDREINABRENDA .Facility:U9Txjmf: 03-06-2022 End: 08-85-0826tznhzhxvcsNF REGGIE BUTLER .Facility:Q3Linlv: 11-01-2021 End: 32-98-9655zximxizenkADMIH PARKERFacility:Z3Pzmtn: 10-16-2021 End: 80-62-1421xlxhwwqgwxDDATXK ANTONI .Facility:P8Tcrrh: 09-15-2021 End: 55-99-6925mlavlvnyneAO NONE LISTED REQUESTFacility:M1Oomsy: 09-11-2021 End: 92-18-4998ixninjavnpFRAXDIX YAROSHFacility:M2Suuuo: 09-07-2021 End: 14-49-3931mrneefolhvUZ SUKUMAR NAIRFacility:H1 Procedures DateProcedureProcedure DetailPerforming ClinicianStart: 64-49-2992Pwkkhpexbiv Lucy PAN Start: 54-79-5742Mgttuqb ablation using fluoroscopy guidanceMichael NILL CholecystectomyMichael NILL Plan of Treatment DateCare ActivityDetailAuthorStart: 54-16-3002Ukafrgcn identified in Blood by CultureBlood CultureFairfield Medical Centertart: 41-05-3276JcpfoghtrFairfield Medical Centertart: 48-49-2681PF Head WO contrastFairfield Medical Centertart: 73-47-1064ZL of head without contrastCT head stroke alert wo [facility] Hospitaltart: 45-91-8213Ugeivudyxfkz consultation with patientAdena Pike Medical CenterPatient Education Weakness - ED discharge instructionsHolmes County [facility] Work Phone: Patient referralHolmes County [facility] Work Phone: Immunizations Immunization DateImmunizationNotesCare ProviderFacilityNEGATED: Highlighted row has not occurred!92-28-6412ypykxfekc virus vaccine, unspecified formulation Lucy PAN [phone]-Fkfrv General Surgery [facility] DatePayer CategoryPayerPolicy [id number] 2.0.1.569650.3.57[id number] 2..1.036926.3.57[id number] 2.0.1.620160.3.57[id number] 2.0.1.828504.3.57[id number] 2.0.1.107341.3.579.[id number] 2.0.1.118960.3.579.[id number] 2.840.1.700912.3.579.2.[id number] 2.840.1.455393.3.579.2.28188-11-1312Ddneobl6789027 2..840.1.152166.3.57[id number] 2.16.840.1.612033.3.57[id number] 2..0.1.834632.3.57[id number] 2..0.1.698082.3.57[id number] 2..0.1.337126.3.579.[id number] Social History DateTypeDetailFacilityStart: 30-63-8477Ftbxutm smoking statusHeavy tobacco smoker (finding)[facility]ueTobacco smoking statusNever [facility] BellevueSex Assigned At [facility] HospitalTobacco smoking status NHISUnknown if ever smokedVan Wert County Hospital Work Phone: SexMale (finding)[facility] Start: 50-40-2980Alc Assigned At [facility] Functional Status WjvwWhbphrghhgLhobmvMrpltkik03-68-2238Wpegftojfu StatusN/AFClermont County Hospital Clinical Notes 06-24-2022 to 03-14-2024 Note Date & YjxfHlvyWpaisdca80-25-4306 NoteSubjective Patient ID: Chuck Packer is a [...] the past 36 hour(s)). No follow-ups on file.[facility]10-29-2024 NotePatient: Chuck Packer Procedure Summary Date: 02/29/24 Room / Location: [facility] OPERATING ROOM 02 / [facility] Operating Room Anesthesia Start: 0756 Anesthesia [...] PACU per anesthesia protocol. No notable events documented.[facility]10-29-2024 Note Airway Date/Time: 02/29/2024 8:07 AM Urgency: elective General Information and Staff Patient location during procedure: OR Anesthesiologist: Neil Song MD Resident/SERVICE ORDER CLERK/CAA: Facundo Rudolph MD Performed: resident/SERVICE ORDER CLERK/CAA Indications and Patient Condition Indications for [...] approach: 1 Number of other approaches attempted: 0UnChillicothe [facility] Medical Center 02-28-2024 NotePatient: Chuck Packer Procedure Information Date/Time: 02/29/24 0730 Procedures: EXAM UNDER ANESTHESIA, HEMORRHOIDECTOMY, DEBRIDMENT OF ANAL FISSURE Location: [facility] OPERATING ROOM 02 / [facility] Operating Room Surgeons: Urbano Rodriguez MD Relevant Problems Cardio (+) Migraines (+) Pqdhu-Tuyhzmevi-Nmeah syndrome GI (+) GERD (gastroesophageal reflux disease) [...] Depression GERD (gastroesophageal reflux disease) Morbid Obesity Qykel-Isxtbxuoz-Lzixm syndrome, treated with ablation as teenager, without [...] discussed with attending and resident. Additional Equipment RequestsWood County Hospital10-24-2024 Note Medications to take AM day [...] THE FOLLOWING ARE NOT AVAILABLE: An adult peg driver over the age of 18, that [...] lenses. Do not wear perfume, make-up, nail icelandic, or lotions on the day of your [...] need to make any changes, please call [phone]. Notify your surgeon if you develop any illness such as a cold, cough, fever, sore throat or vomiting between now and your surgery. Thank you for entrusting us with your care. [facility] Surgical Services TeamWood County Hospital10-23-2024 Note Subjective Patient ID: Chuck Packer [...] the past 36 hour(s)). No follow-ups on file.[facility]02-22-2023 Note OPERATIVE NOTE OPERATION DATE: 06/24/2022 [...] good condition. CC: Leighann Soriano CNPMercy Health St. Joseph Warren HospitalEvaluation + Plan note No data available for this section [facility] Evaluation noteNo assessment information available [facility] Work Phone: Hospital Discharge instructions No data available for this section [facility] Hospital Discharge instructions Additional Instructions follow up with your doctor return if worseFirMiami Valley Hospital Ctr Work Phone: Progress note No data available for this section [facility] Reason for referral (narrative)No reason for referral information availableVan Wert County Hospital Work Phone: Summary Purpose Family History [...] content) DATE CREATED AUTHOR 08/11/[address] [facility] DATE CREATED AUTHOR AUTHOR'S ORGANIZ ATION 12/27/2023 [facility] DATE CREATED AUTHOR AUTHOR'S ORGANIZ ATION 03/16/2024 [facility] DATE CREATED AUTHOR AUTHOR'S ORGANIZ ATION 02/10/2025 [facility] Patient Care team informatio [...] BASED ON THE PRIMARY CLINICAL RECORDS. [facility]. provides no warranty or guarantee of the accuracy or completeness of information in this document.
--- OUTSIDE RECORDS SUMMARY | 2025-04-30 20:52 | XMS_ITS | Clinical Summary ---
Author Organization [facility] Address [address] [place] [address] Care Team Providers Care Vp & General Counsel Name Role Phone Unavailable Primary Care Provider Unavailabl e Allergies Active AllergyReactionsCriticalityNoted DateCommentsErythromycinRashLow 02/23/2024Erythromycin BrjrYlkgl30/23/8384RgjsibenuauNgpze55/23/2024 Medications MedicationSigDispense QuantityRefillsLast FilledStart DateEnd DateStatus divalproex [...] (bright red blood per rectum)02/23/2024hange in bowel tqbinz4902/23/2024urrent smoker 02/23/2024 Overview (02/23/2024): Added secondary to documentation in Social History. Akyvfsnybp69/23/2024Erectile dcsnhsnwipo62/23/2024Generalized anxiety disorder 02/23/2024GERD (gastroesophageal reflux disease)02/23/2024History of shingles 02/23/2024IBS (irritable bowel syndrome)02/23/20247605Mkvlficiq45/23/2024Morbid sdkbhsv9702/23/2024bdominal pain, ejdfuyqqsf71/23/2024anic disorder without agoraphobia with mild panic qojihib8802/23/2024ectal bkrryzgc89/23/2024 Emtvj-Mewvtcmuo-Dzrgs voyqncvb71/23/2024nal pain02/23/2024 Social History Tobacco UseTypesPacks/DayYears UsedDateSmoking Tobacco: [...] file03/14/2024Sexually AbusedNot on file03/14/2024HQ-2AnswerDate RecordedPatient Health Questionnaire-2 Rwpet85705/14/2023Sex and Gender InformationValueDate RecordedSex Assigned at BirthNot on fileLegal SexMale 02/11/2024 3:19 PM EDTGender IdentityNot on fileSexual OrientationNot on file Last Filed Vital Signs Vital SignReadingTime TakenCommentsBlood Fznnkznj203/8903/14/2024 2:20 PM EST Xirzd928403/14/2024 2:20 PM GRJIvwazyqpxxd85.6 ??C (97.8 ??F)03/14/2024 2:20 PM ESTRespiratory Mgto8591 9:45 AM EDTOxygen Mktkhhkubt74%03/14/2024 2:20 PM ESTInhaled Oxygen Concentration--Qbcjco987 kg (314 lb 3.2 oz)03/14/2024 2:20 PM QPEDidhju878.5 cm (6' 3 )03/14/2024 2:20 PM ESTBody Mass Index39.27105/14/2023 2:20 PM EST Plan of Treatment Health MaintenanceDue DateLast DoneCommentsDepression Oyfvddodx27/19/2000 Varicella Vaccines (1 of 2 - 13+ 2-dose series)08/19/2000Hepatitis B Vaccines (1 of 3 - 19+ 3-dose series)08/19/2006Pneumococcal Vaccine: Pediatrics (0 to 5 Years) and At-Risk Patients (6 to 64 Years) (1 of 2 - PCV)08/19/2006dult Umxakuh2508/19/2009HPV Vaccines (1 - 3-dose SCDM series)08/19/2014COVID-19 Vaccine [...] (Latest Code Status on File) Date ActivatedDate BmrfetlphaoHwaerywz98/29/2024 6:22 AM02/29/2024 12:22 PM
--- OUTSIDE RECORDS SUMMARY | 2025-04-30 20:52 | XMS_ITS | Patient Health Record ---
Author Organization [facility] in [place] Address [address] [place] [address] Care Team Providers Care Mechanical Engineer Name Role Phone Leighann Soriano Primary Care Provider [phone] WaqartiffaniMartínez [phone] Allergies Allergen (clinical drug ingredient) Drug/Non Drug Allergy documented on EMR Reaction Allergy Type Onset Date Status erythromycin Erythromycin Base hives Drug Allergy Activepenicillin VPenicillin V PotassiumhivesDrug AllergyActive Results Component Value Reference Range Notes CBC AUTO DIFF Reviewed date:08/06/2024 09:47:04 PM Interpretation: Performing Lab: Notes/Report: [facility] , White Blood Count 7.4 4.0-11.0 10 3/uL Red Blood Count4.934.70-6.10 10 6/bJUdtxpmzxks75.014.0-18.0 g/vBFkwofmcvwo10.1 42.0-54.0 %Mean Corpuscular Aoowrj60.480.0-94.0 fLMean Corpuscular Hemoglobin 30.425.9-34.0 pgMean Corpuscular HGB Conc35.629.9-35.2 g/dLRed Cell Distribution Width12.611.0-15.0 %Platelet Ezlzm487531-384 10 3/uLMean Platelet Volume9.69.5- 13.5 fLNeutrophils Percent Auto69.943.0-75.0 %Lymphocytes Percent Auto23.820.5- 60.0 %Monocytes Percent Auto5.41.7-12.0 %Eosinophils Percent Auto0.30.9-7.0 % Basophils Percent Auto0.30.2-2.0 %Immature Granulocytes Pct Auto0.30.0-0.5 % Neutrophils Absolute Auto5.21.4-6.5 10 3/uLLymphocytes Absolute Auto1.81.2-3.8 10 3/uLMonocytes Absolute Auto0.40.3-0.8 10 3/uLEosinophils Absolute Auto0.00.0- 0.7 10 3/uLBasophils Absolute Auto0.00.0-0.1 10 3/uLImmature Granulocytes Abs Auto0.020.00-0.03 10 3/uLPerforming Lab:see note - [facility] LB PROF CHEM 8 (BAS METB) Reviewed date:08/06/2024 09:47:04 PM Interpretation: Performing Lab: Notes/Report: [facility] ,Gkrxqo603234-062 mmol/LPotassium4.03.5-5.1 mmol/ISuykhycb57633-902 mmol/LCarbon Kpteifn22.321.0-32.0 mmol/LAnion Gap12.8Biwbfzk95203-161 mg/dLBlood Urea Zmzbwlte94.07.0-18.0 mg/dLCreatinine1.100.70-1.30 mg/dLEstimated GFR ( Anupama>60>=60 mL/min/1.73m 2Estimated GFR (Non- Tia>60>=60 mL/min/1.73m 2BUN Creatinine Ratio11.3Zsnhewy6.98.5-10.1 mg/dLPerforming Lab:see note - [facility] LBECG 12 lead Reviewed date:08/06/2024 09:47:04 PM Interpretation: Performing Lab: Notes/Report: Source Facility: [facility]-[address] [place] [address] [place] [address] Electrocardiograph Report Signed Patient: CHUCK PACKER MR#: [id number] : 1985 Acct:[id number] Age/Sex: 38 / M ADM Date: 07/30/24 Loc: ER Attending Dr: Ordering Physician: Leyda Barrientos M.D. Date of Service: 07/30/24 Procedure(s): ECG 12 lead Accession Number(s): [id number] cc: 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 Measurements Intervals [place] Rate: 95 P: 44 NC: 120 QRS: 15 QRSD: 76 T: -5 [...] FOOTE Signed By: 07/30/242019 DD/ 11 TD/TT: Maker Up Folding:CBC AUTO DIFF Reviewed date:01/18/2025 10:48:48 AM Interpretation: Performing Lab: Notes/Report: [facility] ,White Blood Count8.44.0-11.0 10 3/uLRed Blood Count5.214.70-6.10 10 6/uL Xicvmhrbda71.714.0-18.0 g/hITfdfqxmumt90.742.0-54.0 %Mean Corpuscular Hfppnk81.9 80.0-94.0 fLMean Corpuscular Hfnncohzxr03.125.9-34.0 pgMean Corpuscular HGB Conc 35.929.9-35.2 g/dLRed Cell Distribution Width11.911.0-15.0 %Platelet Supnv359 150-450 10 3/uLMean Platelet Volume9.89.5-13.5 fLNeutrophils Percent Auto63.7 43.0-75.0 %Lymphocytes Percent Auto30.520.5-60.0 %Monocytes Percent Auto5.31.7- 12.0 %Eosinophils Percent Auto0.20.9-7.0 %Basophils Percent Auto0.10.2-2.0 % Immature Granulocytes Pct Auto0.20.0-0.5 %Neutrophils Absolute Auto5.41.4-6.5 10 3/uLLymphocytes Absolute Auto2.61.2-3.8 10 3/uLMonocytes Absolute Auto0.50.3-0.8 10 3/uLEosinophils Absolute Auto0.00.0-0.7 10 3/uLBasophils Absolute Auto0.00.0- 0.1 10 3/uLImmature Granulocytes Abs Auto0.020.00-0.03 10 3/uLPerforming Lab:see noteML - [facility] LBDRUG SCREEN RAPID (URINE) Reviewed date:01/18/2025 10:48:48 AM Interpretation: Performing Lab: Notes/Report: [facility] ,Cannabinoid Screen UrinePOSITIVENEGATIVEPhencyclidine Screen UrineNEGATIVE NEGATIVECocaine Screen [...] ng/mL Performing Lab:see noteML - [facility] LBPROF CHEM 8 (BAS METB) Reviewed date:01/18/2025 10:48:48 AM Interpretation: Performing Lab: Notes/Report: [facility] ,Wjnhpq770457-074 mmol/LPotassium4.03.5-5.1 mmol/PIaurskrg02251-382 mmol/LCarbon Ydeohzi32.221.0-32.0 mmol/LAnion Gap12.3Kjruzjn99045-358 mg/dLBlood Urea Njddbqlu84.07.0-18.0 mg/dLCreatinine1.070.70-1.30 mg/dLEstimated GFR ( Anupama>60>=60 mL/min/1.73m 2Estimated GFR (Non- Tia>60>=60 mL/min/1.73m 2BUN Creatinine Ratio15.9Ihuwxyu0.08.5-10.1 mg/dLPerforming Lab:see noteML - [facility] LBTroponin I High Sensitivity Reviewed date:01/18/2025 10:48:48 AM Interpretation: Performing Lab: Notes/Report: [facility] ,Troponin I High Sensitivity<4.04.0-76.1 pg/mL CUT-OFF POINTS HAVE BEEN ESTABLISHED BASED ON THE FOURTH UNIVERSAL DEFINITION OF MYOCARDIAL INFARCTION. THE UPPER REFERENCE LIMIT (URL) OF TROPONIN, DEFINED THE 99TH PERCENTILE OF cTnI DISTRIBUTION IN A REFERENCE POPULATION, HAS BEEN CONFIRMED THE DECISION THRESHOLD FOR [place] DIAGNOSIS. 99TH PERCENTILE = 76.2 PG/ML NOTE: HIGH-SENSITIVITY TROPONIN ASSAY IS NOT INTENDED TO BE USED IN ISOLATION BUT SHOULD BE INTERPRETED IN CONJUNCTION WITH OTHER DIAGNOSTIC AND CLINICAL INFORMATION. Performing Lab:see noteML - [facility] LYIKEO-CtS-3 Ag* Reviewed date:01/18/2025 10:48:48 AM Interpretation: Performing Lab: Notes/Report: [facility] ,SARS-CoV-2 AgNEGATIVENEGATIVE This test has not been [...] sooner. Performing Lab:see noteML - 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 Measurements Intervals [place] Rate: 94 P: 54 NC: 130 QRS: 44 QRSD: 74 T: 49 QT: 342 QTc: 394 Interpretive Statements [address] elevation, probably early repolarization 9130 borderline ECG Compared to ECG 07/30/2024 14:12:13 ST (T wave) deviation now present Early repolarization now present Left ventricular hypertrophy no longer present Electronically Signed On 01-17-2025 17:53:50 EDT by JITENDRA FOOTE M.D. Dictated By: JITENDRA FOOTE Signed By: 01/17/25 1754 DD/ 1339 TD/TT: Maker Up Folding:NETTIE chest 1V Reviewed date:01/18/2025 10:48:48 AM Interpretation: Performing Lab: Notes/Report: Source Facility: [place] [address] XRay Report Signed Patient: CHUCK PACKER MR#: [id number] : 1985 Acct:[id number] Age/Sex: 39 / M ADM Date: 01/17/25 Loc: ER Attending Dr: Ordering Physician: Kacie Rodriguez Date of Service: 01/17/25 Procedure(s): XR chest 1V Accession Number(s): [id number] cc: LEIGHANN SORIANO ; Kacie Rodriguez [address] [address] Patient Name: CHUCK PACKER MRN: [id number] date: 1985 Sex: M Assigned Patient Location: ER Current Patient Location: ED.MAIN Accession/Order Number: [id number] Exam Date: 01/17/2025 14:02 Report Date: 01/17/2025 14:48 At the request of: KACIE RIZZO Procedure: XR chest 1V MATTHIAS CHEST: CLINICAL HISTORY: Chest pain COMPARISON: 07/15/2024 Unremarkable cardiac mediastinal silhouette. Lungs clear. No effusion or pneumothorax. XR/XR chest 1V IMPRESSION: NEGATIVE ACUTE PLEURAL-PARENCHYMAL DISEASE. Impression dictated by: Chandler Fields M.D. 01/17/2025 2:48 PM Dictation Location: [place] [address] Electronically authenticated by: [id number] Y Date: 01/17/2025 14:48 Dictated By: Chandler Fields M.D. Signed By: 01/17/25 1450 DD/ 1448 TD/TT: Maker Up Folding:Troponin I High Sensitivity Reviewed date:01/18/2025 10:48:48 AM Interpretation: Performing Lab: Notes/Report: [facility] ,Troponin I High Sensitivity4.24.0-76.1 pg/mL CUT-OFF POINTS HAVE BEEN ESTABLISHED BASED ON THE FOURTH UNIVERSAL DEFINITION OF MYOCARDIAL INFARCTION. THE UPPER REFERENCE LIMIT (URL) OF TROPONIN, DEFINED THE 99TH PERCENTILE OF cTnI DISTRIBUTION IN A REFERENCE POPULATION, HAS BEEN CONFIRMED THE DECISION THRESHOLD FOR [place] DIAGNOSIS. 99TH PERCENTILE = 76.2 PG/ML NOTE: HIGH-SENSITIVITY TROPONIN ASSAY IS NOT INTENDED TO BE USED IN ISOLATION BUT SHOULD BE INTERPRETED IN CONJUNCTION WITH OTHER DIAGNOSTIC AND CLINICAL INFORMATION. Performing Lab:see noteML - [facility] LBCBC AUTO DIFF Reviewed date:01/29/2025 09:03:45 AM Interpretation: Performing Lab: Notes/Report: [facility] ,White Blood Count7.74.0-11.0 10 3/uLRed Blood Count5.164.70-6.10 10 6/uL Wmazrfjdvg84.814.0-18.0 g/lCFvzgnbgviq58.342.0-54.0 %Mean Corpuscular Vwzgjn70.9 80.0-94.0 fLMean Corpuscular Egdvcsepzy78.625.9-34.0 pgMean Corpuscular HGB Conc 36.529.9-35.2 g/dLRed Cell Distribution Width12.011.0-15.0 %Platelet Dakfl606 150-450 10 3/uLMean Platelet Volume9.89.5-13.5 fLNeutrophils Percent Auto60.1 43.0-75.0 %Lymphocytes Percent Auto32.820.5-60.0 %Monocytes Percent Auto6.11.7- 12.0 %Eosinophils Percent Auto0.40.9-7.0 %Basophils Percent Auto0.30.2-2.0 % Immature Granulocytes Pct Auto0.30.0-0.5 %Neutrophils Absolute Auto4.61.4-6.5 10 3/uLLymphocytes Absolute Auto2.51.2-3.8 10 3/uLMonocytes Absolute Auto0.50.3-0.8 10 3/uLEosinophils Absolute Auto0.00.0-0.7 10 3/uLBasophils Absolute Auto0.00.0- 0.1 10 3/uLImmature Granulocytes Abs Auto0.020.00-0.03 10 3/uLPerforming Lab:see noteML - [facility] LBD-DIMER Reviewed date:01/29/2025 09:03:45 AM Interpretation: Performing Lab: Notes/Report: [facility] ,D Dimer<0.19<=0.59 mg/L FEU Increases in D-Dimer [...] and generalized hospitalization. Performing Lab:see noteML - [facility] LBPROF CHEM 8 (BAS METB) Reviewed date:01/29/2025 09:03:45 AM Interpretation: Performing Lab: Notes/Report: [facility] ,Nuzqrj719532-914 mmol/LPotassium3.93.5-5.1 mmol/XDyfidrgd93231-211 mmol/LCarbon Ivlgben73.021.0-32.0 mmol/LAnion Gap15.1Zemssok61339-385 mg/dLBlood Urea Cehdsenq75.07.0-18.0 mg/dLCreatinine0.940.70-1.30 mg/dLEstimated GFR ( Anupama>60>=60 mL/min/1.73m 2Estimated GFR (Non- Tia>60>=60 mL/min/1.73m 2BUN Creatinine Ratio13.4Zlasoaq8.18.5-10.1 mg/dLPerforming Lab:see noteML - [facility] LBTroponin I High Sensitivity Reviewed date:01/29/2025 09:03:45 AM Interpretation: Performing Lab: Notes/Report: [facility] ,Troponin I High Sensitivity4.94.0-76.1 pg/mL CUT-OFF POINTS HAVE BEEN ESTABLISHED BASED ON THE FOURTH UNIVERSAL DEFINITION OF MYOCARDIAL INFARCTION. THE UPPER REFERENCE LIMIT (URL) OF TROPONIN, DEFINED THE 99TH PERCENTILE OF cTnI DISTRIBUTION IN A REFERENCE POPULATION, HAS BEEN CONFIRMED THE DECISION THRESHOLD FOR [place] DIAGNOSIS. 99TH PERCENTILE = 76.2 PG/ML NOTE: HIGH-SENSITIVITY TROPONIN ASSAY IS NOT INTENDED TO BE USED IN ISOLATION BUT SHOULD BE INTERPRETED IN CONJUNCTION WITH OTHER DIAGNOSTIC AND CLINICAL INFORMATION. Performing Lab:see noteML - [facility] LBECG 12 lead Reviewed date:01/29/2025 03:35:15 PM Interpretation: Performing Lab: Notes/Report: Source Facility: [facility]-[address] [place] [address] [place] [address] Electrocardiograph Report Signed Patient: CHUCK PACKER MR#: [id number] : 1985 Acct:[id number] Age/Sex: 39 / M ADM Date: 01/28/25 Loc: ER Attending Dr: Ordering Physician: Leyda Barrientos M.D. Date of Service: 01/28/25 Procedure(s): ECG 12 lead Accession Number(s): [id number] cc: 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 Signed By: 01/29/25 1514 DD/ 1224 TD/TT: Maker Up Folding:XR chest 1V Reviewed date:01/29/2025 09:03:45 AM Interpretation: Performing Lab: Notes/Report: Source Facility: [place] [address] XRay Report Signed Patient: CHUCK PACKER MR#: [id number] : 1985 Acct:[id number] Age/Sex: 39 / M ADM Date: 01/28/25 Loc: ER Attending Dr: Ordering Physician: Leyda Barrientos M.D. Date of Service: 01/28/25 Procedure(s): XR chest 1V Accession Number(s): [id number] cc: LEIGHANN SORIANO ; Leyda Barrientos M.D. [place] [address] Patient Name: CHUCK PACKER MRN: [id number] date: 1985 Sex: M Assigned Patient Location: ED.MAIN Current Patient Location: ED.MAIN Accession/Order Number: [id number] Exam Date: 01/28/2025 13:33 Report Date: 01/28/2025 [...] Enamorado M.D. 01/28/2025 2:07 PM Dictation Location: [place] [address] Electronically authenticated by: [id number] Y Date: 01/28/2025 14:07 Dictated By: Antione Enamorado M.D. Signed By: 01/28/25 1410 DD/ 1407 TD/TT: Maker Up Folding:DRUG SCREEN RAPID (URINE) Reviewed date:03/19/2025 10:38:37 AM Interpretation: Performing Lab: Notes/Report: [facility] ,Cannabinoid Screen UrinePOSITIVENEGATIVEPhencyclidine Screen UrineNEGATIVE NEGATIVECocaine Screen [...] ng/mL Performing Lab:see noteML - [facility] LBUA Micro, reflex to culture Reviewed date:03/19/2025 10:38:37 AM Interpretation: Performing Lab: Notes/Report: [facility] ,Color UrineYELLOWYELLOWClarity UrineCLEARCLEARSpecific [place] Urine1.025 1.005-1.025pH Urine6.05.0-9.0Protein UrineTRACENEG/TRACE mg/dLGlucose Urine UA NEGATIVENEGATIVE mg/dLBilirubin UrineNEGATIVENEGATIVEKetones UrineTRACENEGATIVE mg/dLBlood UrineSMALLNEGATIVENitrite UrineNEGATIVENEGATIVEUrobilinogen Urine0.2 0.2-1.0 EU/dLLeukocyte Esterase UrineNEGATIVENEGATIVEWBC UrineNONE SEENNONE SEEN #/HPFRBC Urine0-20-2 #/HPFBacteria UrineTRACENONE SEEN #/HPFMucus UrineTRACENONE SEENSquamous Epithelial Cell UrineRARENONE/RARE #/LPFCrystals Seen?None SeenNone Seen #/HPFCast Seen?NONE SEENNONE SEEN #/LPFPerforming Lab:see noteML - [facility] LBCBC AUTO DIFF Reviewed date:03/21/2025 08:53:55 PM Interpretation: Performing Lab: Notes/Report: [facility] ,White Blood Count6.94.0-11.0 10 3/uLRed Blood Count5.234.70-6.10 10 6/uL Bvwherbrmm77.914.0-18.0 g/bRGopthgpbyw30.742.0-54.0 %Mean Corpuscular Azpkdb46.5 80.0-94.0 fLMean Corpuscular Kmczkpuzfv76.425.9-34.0 pgMean Corpuscular HGB Conc 35.629.9-35.2 g/dLRed Cell Distribution Width12.111.0-15.0 %Platelet Haqvh058 150-450 10 3/uLMean Platelet Qarlff97.29.5-13.5 fLNeutrophils Percent Auto63.3 43.0-75.0 %Lymphocytes Percent Auto30.820.5-60.0 %Monocytes Percent Auto4.91.7- 12.0 %Eosinophils Percent Auto0.60.9-7.0 %Basophils Percent Auto0.10.2-2.0 % Immature Granulocytes Pct Auto0.30.0-0.5 %Neutrophils Absolute Auto4.41.4-6.5 10 3/uLLymphocytes Absolute Auto2.11.2-3.8 10 3/uLMonocytes Absolute Auto0.30.3-0.8 10 3/uLEosinophils Absolute Auto0.00.0-0.7 10 3/uLBasophils Absolute Auto0.00.0- 0.1 10 3/uLImmature Granulocytes Abs Auto0.020.00-0.03 10 3/uLPerforming Lab:see noteML - [facility] LBDRUG SCREEN RAPID (URINE) Reviewed date:03/21/2025 08:53:55 PM Interpretation: Performing Lab: Notes/Report: [facility] ,Cannabinoid Screen UrinePOSITIVENEGATIVEPhencyclidine Screen UrineNEGATIVE NEGATIVECocaine Screen [...] 300 ng/mL Performing Lab:see noteML - [facility] LBLIPASE Reviewed date:03/21/2025 08:53:56 PM Interpretation: Performing Lab: Notes/Report: [facility] ,Hljbva85.016.0-77.0 U/LPerforming Lab:see noteML - [facility] LBPROF 14(COMP METB) Reviewed date:03/21/2025 08:53:56 PM Interpretation: Performing Lab: Notes/Report: [facility] ,Xdwqda662665-152 mmol/LPotassium3.83.5-5.1 mmol/TDusexiod76465-673 mmol/LCarbon Ndfosyi76.321.0-32.0 mmol/LAnion Gap12.9Pddlfdf42572-342 mg/dLBlood Urea Bryjalda48.07.0-18.0 mg/dLCreatinine1.430.70-1.30 mg/dLEstimated GFR ( Anupama>60>=60 mL/min/1.73m 2Estimated GFR (Non- Ame56>=60 mL/min/1.73m 2 BUN Creatinine Ratio9.8Octjkeb1.78.5-10.1 mg/dLBilirubin Total0.50.2-1.0 mg/dL Aspartate Amino Qylltwuwhmy8407-18 U/LAlanine Ibnwfyubarodqaru3867-01 U/L Alkaline Ddbhrwpukxs1222-239 U/LTotal Protein8.06.4-8.2 g/dLAlbumin Level3.53.4- 5.0 g/dLGlobulin4.5Albumin Globulin Ratio0.8Performing Lab:see noteML - [facility] LBTSH Reviewed date:03/21/2025 08:53:56 PM Interpretation: Performing Lab: Notes/Report: [facility] ,Thyroid Stimulating Hormone1.2350.358-3.740 uIU/mLPerforming Lab:see noteML - [facility] LBUA (CLEAN or CATCH) BRAZER HELPER INDUCTION or MICRO IF IND. Reviewed date:03/21/2025 08:53:56 PM Interpretation: Performing Lab: Notes/Report: [facility] ,Color UrineYELLOWYELLOWClarity UrineCLEARCLEARSpecific [place] Urine1.025 1.005-1.025pH Urine6.05.0-9.0Protein UrineNEGATIVENEG/TRACE mg/dLGlucose Urine UA>=1000NEGATIVE mg/dLBilirubin UrineNEGATIVENEGATIVEKetones UrineTRACENEGATIVE mg/dLBlood UrineSMALLNEGATIVENitrite UrineNEGATIVENEGATIVEUrobilinogen Urine0.2 0.2-1.0 EU/dLLeukocyte Esterase UrineNEGATIVENEGATIVEUrine Microscopic Indicated YESPerforming Lab:see note - [facility] LBTroponin I High Sensitivity Reviewed date:03/21/2025 08:53:56 PM Interpretation: Performing Lab: Notes/Report: [facility] ,Troponin I High Sensitivity<4.04.0-76.1 pg/mL CUT-OFF POINTS HAVE BEEN ESTABLISHED BASED ON THE FOURTH UNIVERSAL DEFINITION OF MYOCARDIAL INFARCTION. THE UPPER REFERENCE LIMIT (URL) OF TROPONIN, DEFINED THE 99TH PERCENTILE OF cTnI DISTRIBUTION IN A REFERENCE POPULATION, HAS BEEN CONFIRMED THE DECISION THRESHOLD FOR [place] DIAGNOSIS. 99TH PERCENTILE = 76.2 PG/ML NOTE: HIGH-SENSITIVITY TROPONIN ASSAY IS NOT INTENDED TO BE USED IN ISOLATION BUT SHOULD BE INTERPRETED IN CONJUNCTION WITH OTHER DIAGNOSTIC AND CLINICAL INFORMATION. Performing Lab:see note - [facility] LBChlamydia/GC Amplification Reviewed date:03/27/2025 08:15:33 AM Interpretation: Performing Lab: Notes/Report: Urine [facility] ,Chlamydia trachomatis, NAANegativeNegativeNeisseria gonorrhoeae, NAANegative Negative Performed at: =G - [facility] [address] [id number] Refining Supervisor: Ava Max MD, Phone: [phone] Performing Lab:see note - [facility] LBECG 12 lead Reviewed date:03/27/2025 08:15:33 AM Interpretation: Performing Lab: Notes/Report: Source Facility: [place] [address] [place] [address] Electrocardiograph Report Signed Patient: CHUCK PACKER MR#: [id number] : 1985 Acct:[id number] Age/Sex: 39 / M ADM Date: 03/21/25 Loc: ER Attending Dr: Ordering Physician: Kacie Rodriguez Date of Service: 03/21/25 Procedure(s): ECG 12 lead Accession Number(s): [id number] cc: 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 Measurements Intervals [place] Rate: 109 P: 58 NC: 120 QRS: 14 QRSD: 88 T: -59 [...] Signed By: 03/22/25 0604 DD/ 1739 TD/TT: Maker Up Folding:XR chest 1V Reviewed date:03/21/2025 08:53:56 PM Interpretation: Performing Lab: Notes/Report: Source Facility: [place] [address] XRay Report Signed Patient: CHUCK PACKER MR#: [id number] : 1985 Acct:[id number] Age/Sex: 39 / M ADM Date: Loc: ER Attending Dr: Ordering Physician: Kacie Rodriguez Date of Service: 03/21/25 Procedure(s): XR chest 1V Accession Number(s): [id number] cc: LEIGHANN SORIANO ; Kacie Rodriguez [place] [address] Patient Name: CHUCK PACKER MRN: [id number] date: 1985 Sex: M Assigned Patient Location: ER Current Patient Location: ER Accession/Order Number: [id number] Exam Date: 03/21/2025 18:14 Report Date: 03/21/2025 18:23 At the request of: KACIE RIZOZ Procedure: XR chest 1V Plain film chest [...] Chavez M.D. 03/21/2025 6:23 PM Dictation Location: [place] [address] Electronically authenticated by: [id number] Y Date: 03/21/2025 18:23 Dictated By: Jil Chavez D.O. Signed By: 03/21/251824 DD/ 22 TD/TT: Maker Up Folding:XR abdomen 1V Reviewed date:04/02/2025 08:41:29 AM Interpretation: Performing Lab: Notes/Report: Source Facility: [place] [address] XRay Report Signed Patient: CHUCK PACKER MR#: [id number] : 1985 Acct:[id number] Age/Sex: 39 / M ADM Date: 04/01/25 Loc: ER Attending Dr: Ordering Physician: Leyda Barrientos M.D. Date of Service: 04/01/25 Procedure(s): XR abdomen 1V Accession Number(s): [id number] cc: LEIGHANN SORIANO ; Leyda Barrientos M.D. [place] [address] Patient Name: CHUCK PACKER MRN: [id number] date: 1985 Sex: M Assigned Patient Location: ER Current Patient Location: ER Accession/Order Number: [id number] Exam Date: 04/01/2025 12:20 Report Date: 04/01/2025 [...] Enamorado M.D. 04/01/2025 12:35 PM Dictation Location: [place] [address] Electronically authenticated by: [id number] Y Date: 04/01/2025 12:35 Dictated By: Antione Enamorado M.D. Signed By: 04/01/25 1238 DD/ 1235 TD/TT: Maker Up Folding:CBC AUTO DIFF Reviewed date:04/12/2025 09:52:04 AM Interpretation: Performing Lab: Notes/Report: [facility] ,White Blood Count7.14.0-11.0 10 3/uLRed Blood Count5.624.70-6.10 10 6/uL Wzhofdhzfw64.114.0-18.0 g/eGGkpenrfsrl60.342.0-54.0 %Mean Corpuscular Ewvyvy16.2 80.0-94.0 fLMean Corpuscular Sfwvbjyuaa98.425.9-34.0 pgMean Corpuscular HGB Conc 36.229.9-35.2 g/dLRed Cell Distribution Width12.011.0-15.0 %Platelet Gyile604 150-450 10 3/uLMean Platelet Volume9.89.5-13.5 fLNeutrophils Percent Auto67.3 43.0-75.0 %Lymphocytes Percent Auto26.920.5-60.0 %Monocytes Percent Auto5.01.7- 12.0 %Eosinophils Percent Auto0.30.9-7.0 %Basophils Percent Auto0.10.2-2.0 % Immature Granulocytes Pct Auto0.40.0-0.5 %Neutrophils Absolute Auto4.81.4-6.5 10 3/uLLymphocytes Absolute Auto1.91.2-3.8 10 3/uLMonocytes Absolute Auto0.40.3-0.8 10 3/uLEosinophils Absolute Auto0.00.0-0.7 10 3/uLBasophils Absolute Auto0.00.0- 0.1 10 3/uLImmature Granulocytes Abs Auto0.030.00-0.03 10 3/uLPerforming Lab:see noteML - [facility] LBPROF CHEM 8 (BAS METB) Reviewed date:04/12/2025 09:52:04 AM Interpretation: Performing Lab: Notes/Report: [facility] ,Utenmd094618-484 mmol/LPotassium3.83.5-5.1 mmol/YOdfdwcsz29471-557 mmol/LCarbon Czbiywo31.921.0-32.0 mmol/LAnion Gap14.8Xcjedda13724-375 mg/dLBlood Urea Vemrmrlu42.07.0-18.0 mg/dLCreatinine1.180.70-1.30 mg/dLEstimated GFR ( Anupama>60>=60 mL/min/1.73m 2Estimated GFR (Non- Tia>60>=60 mL/min/1.73m 2BUN Creatinine Ratio9.4Esaswcp4.38.5-10.1 mg/dLPerforming Lab:see noteML - [facility] LBUA RANDOM W or MICROSCOPIC Reviewed date:04/12/2025 09:52:04 AM Interpretation: Performing Lab: Notes/Report: [facility] ,Color UrineYELLOWYELLOWClarity UrineCLEARCLEARSpecific [place] Urine1.025 1.005-1.025pH Urine6.05.0-9.0Protein UrineTRACENEG/TRACE mg/dLGlucose Urine UA NEGATIVENEGATIVE mg/dLBilirubin UrineNEGATIVENEGATIVEKetones UrineTRACENEGATIVE mg/dLBlood UrineSMALLNEGATIVENitrite UrineNEGATIVENEGATIVEUrobilinogen Urine0.2 0.2-1.0 EU/dLLeukocyte Esterase UrineTRACENEGATIVEWBC Urine2-5NONE SEEN #/HPFRBC Urine0-20-2 #/HPFBacteria UrineMODERATENONE SEEN #/HPFMucus UrineMODERATENONE SEENSquamous Epithelial Cell UrineRARENONE/RARE #/LPFCrystals Seen?None SeenNone Seen #/HPFCast Seen?SEENNONE SEEN #/LPFHyaline Leoncio UrineRAREUrine Culture IndicatedYES-FRMCPerforming Lab:see noteML - [facility] LBUrine Culture - [facility] Reviewed date:04/16/2025 08:26:30 AM Interpretation: Performing Lab: Notes/Report: [facility] ,Urine Culture - FRMCSee Below For Report Urine Culture - [facility] SEEFRMC [facility] RESULT^[facility] RESULT Urine Culture - FRMCSEEN SEE SCANNED REPORT, NORMAL^SEE SCANNED REPORT, NORMAL Urine Culture - [facility] SEEFRMC [facility] RESULT^[facility] RESULT Performing Lab:see noteML - [facility] LBECG 12 lead Reviewed date:04/12/2025 09:52:04 AM Interpretation: Performing Lab: Notes/Report: Source Facility: [place] [address] Electrocardiograph Report Signed Patient: CHUCK PACKER MR#: [id number] : 1985 Acct:[id number] Age/Sex: 39 / M ADM Date: 04/11/25 Loc: ER Attending Dr: Ordering Physician: Leyda Barrientos M.D. 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 Measurements Intervals [place] Rate: 93 P: 42 NC: 124 QRS: 40 QRSD: 76 T: 49 QT: 318 QTc: 369 Interpretive Statements 1100 Sinus rhythm 4068 Nonspecific Twave abnormality 9130 borderline ECG Compared to ECG 03/21/2025 17:39:38 Sinus tachycardia no longer present ST (T wave) deviation no longer present Electronically Signed On 04-11-2025 14:21:09 EST by JITENDRA FOOTE M.D. Dictated By: JITENDRA FOOTE Signed By: 04/11/25 1421 DD/ 1227 TD/TT: Maker Up Folding:XR chest 1V Reviewed date:04/12/2025 09:52:04 AM Interpretation: Performing Lab: Notes/Report: Source Facility: [address] [address] XRay Report Signed Patient: CHUCK PACKER MR#: [id number] : 1985 Acct:[id number] Age/Sex: 39 / M ADM Date: 04/11/25 Loc: ER Attending Dr: Ordering Physician: Leyda Barrientos M.D. Date of Service: 04/11/25 Procedure(s): XR chest 1V Accession Number(s): [id number] cc: LEIGHANN SORIANO ; Leyda Barrientos M.D. [place] [address] Patient Name: CHUCK PACKER MRN: [id number] date: 1985 Sex: M Assigned Patient Location: ER Current Patient Location: ED.MAIN Accession/Order Number: [id number] Exam Date: 04/11/2025 12:34 Report Date: 04/11/2025 [...] Luther M.D. 04/11/2025 12:55 PM Dictation Location: [place] [address] Electronically authenticated by: [id number] Y Date: 04/11/2025 12:55 Dictated By: Almaz Luther M.D. Signed By: 04/11/25 1257 DD/ 1255 TD/TT: Maker Up Folding:CBC AUTO DIFF Reviewed date:04/17/2025 09:41:27 AM Interpretation: Performing Lab: Notes/Report: [facility] ,White Blood Count5.34.0-11.0 10 3/uLRed Blood Count5.394.70-6.10 10 6/uL Irjorrjubz33.214.0-18.0 g/bDTvkyzdkrcm35.342.0-54.0 %Mean Corpuscular Sqgimf07.0 80.0-94.0 fLMean Corpuscular Rtweefczuy86.125.9-34.0 pgMean Corpuscular HGB Conc 35.829.9-35.2 g/dLRed Cell Distribution Width12.111.0-15.0 %Platelet Bjiib843 150-450 10 3/uLMean Platelet Volume9.79.5-13.5 fLNeutrophils Percent Auto58.6 43.0-75.0 %Lymphocytes Percent Auto34.420.5-60.0 %Monocytes Percent Auto6.21.7- 12.0 %Eosinophils Percent Auto0.40.9-7.0 %Basophils Percent Auto0.20.2-2.0 % Immature Granulocytes Pct Auto0.20.0-0.5 %Neutrophils Absolute Auto3.11.4-6.5 10 3/uLLymphocytes Absolute Auto1.81.2-3.8 10 3/uLMonocytes Absolute Auto0.30.3-0.8 10 3/uLEosinophils Absolute Auto0.00.0-0.7 10 3/uLBasophils Absolute Auto0.00.0- 0.1 10 3/uLImmature Granulocytes Abs Auto0.010.00-0.03 10 3/uLPerforming Lab:see noteML - [facility] LBPROF CHEM 8 (BAS METB) Reviewed date:04/17/2025 09:41:27 AM Interpretation: Performing Lab: Notes/Report: [facility] ,Beyqwb482877-060 mmol/LPotassium3.53.5-5.1 mmol/OQohnxwvs39769-843 mmol/LCarbon Cmhhdrj32.521.0-32.0 mmol/LAnion Gap12.3Fxjhbza89517-346 mg/dLBlood Urea Klmfmhqc74.07.0-18.0 mg/dLCreatinine1.120.70-1.30 mg/dLEstimated GFR ( Anupama>60>=60 mL/min/1.73m 2Estimated GFR (Non- Tia>60>=60 mL/min/1.73m 2BUN Creatinine Ratio9.8Ratnsox4.28.5-10.1 mg/dLPerforming Lab:see note - [facility] LBUA (CLEAN or CATCH) BRAZER HELPER INDUCTION or MICRO IF IND. Reviewed date:04/17/2025 09:41:27 AM Interpretation: Performing Lab: Notes/Report: [facility] ,Color UrineLT. YELLOWYELLOWClarity UrineCLEARCLEARSpecific [place] Urine1.010 1.005-1.025pH Urine6.55.0-9.0Protein UrineNEGATIVENEG/TRACE mg/dLGlucose Urine UANEGATIVENEGATIVE mg/dLBilirubin UrineNEGATIVENEGATIVEKetones UrineNEGATIVE NEGATIVE mg/dLBlood UrineTRACE-INEGATIVENitrite UrineNEGATIVENEGATIVE Urobilinogen Urine1.00.2-1.0 EU/dLLeukocyte Esterase UrineTRACENEGATIVEUrine Microscopic IndicatedYESPerforming Lab:see note - [facility] LB Troponin I High Sensitivity Reviewed date:04/17/2025 09:41:27 AM Interpretation: Performing Lab: Notes/Report: [facility] ,Troponin I High Sensitivity5.74.0-76.1 pg/mL CUT-OFF POINTS HAVE BEEN ESTABLISHED BASED ON THE FOURTH UNIVERSAL DEFINITION OF MYOCARDIAL INFARCTION. THE UPPER REFERENCE LIMIT (URL) OF TROPONIN, DEFINED THE 99TH PERCENTILE OF cTnI DISTRIBUTION IN A REFERENCE POPULATION, HAS BEEN CONFIRMED THE DECISION THRESHOLD FOR [place] DIAGNOSIS. 99TH PERCENTILE = 76.2 PG/ML NOTE: HIGH-SENSITIVITY TROPONIN ASSAY IS NOT INTENDED TO BE USED IN ISOLATION BUT SHOULD BE INTERPRETED IN CONJUNCTION WITH OTHER DIAGNOSTIC AND CLINICAL INFORMATION. Performing Lab:see note - [facility] LBECG 12 lead Reviewed date:04/18/2025 08:33:51 AM Interpretation: Performing Lab: Notes/Report: Source Facility: 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 Measurements Intervals [place] Rate: 86 P: 50 NC: 132 QRS: 38 QRSD: 82 T: 50 QT: 350 QTc: 393 Interpretive Statements 1100 Sinus rhythm ARTIFACT IN LEAD(S) 9110 normal ECG Compared to ECG 04/16/2025 18:04:48 ST (T wave) deviation no longer present Electronically Signed On 04-20-2025 18:45:14 EST by JITENDRA FOOTE M.D. Dictated By: JITENDRA FOOTE Signed By: 04/20/25 1845 DD/ 1026 TD/TT: Maker Up Folding:INFLUENZA A AND B AG Reviewed date:04/23/2025 11:35:55 AM Interpretation: Performing Lab: Notes/Report: [facility] ,Influenza Virus A AntigenNegative Negative for Flu [...] the test. Performing Lab:see noteML - [facility] VYMMEU-LeP-5 Ag* Reviewed date:04/23/2025 11:35:55 AM Interpretation: Performing Lab: Notes/Report: [facility] ,SARS-CoV-2 AgNEGATIVENEGATIVE This test has not been [...] sooner. Performing Lab:see noteML - [facility] LBECG 12 lead Reviewed date:04/30/2025 08:47:38 AM Interpretation: Performing Lab: Notes/Report: Source Facility: [place] [address] [place] [address] Electrocardiograph Report Signed Patient: CHUCK PACKER MR#: [id number] : 1985 Acct:[id number] Age/Sex: 39 / M ADM Date: 04/28/25 Loc: ER Attending Dr: Ordering Physician: Giorgio Horton D.O. Date of Service: 04/28/25 Procedure(s): ECG 12 lead Accession Number(s): [id number] cc: 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 Measurements Intervals [place] Rate: 96 P: 54 NC: 116 QRS: 48 QRSD: 76 T: 28 QT: 328 QTc: 382 Interpretive Statements 1100 Sinus rhythm 2210 Short NC interval 4068 Nonspecific Twave abnormality 9150 abnormal ECG Compared to ECG 04/20/2025 10:26:41 Short NC interval now present Electronically Signed On 04-29-2025 13:30:07 EST by JITENDRA FOOTE M.D. Dictated By: JITENDRA FOOTE Signed By: 04/29/25 1330 DD/ 2240 TD/TT: Maker Up Folding:XR acute abdomen series Reviewed date:04/30/2025 08:47:38 AM Interpretation: Performing Lab: Notes/Report: Source Facility: [place] [address] [place] [address] XRay Report Signed Patient: CHUCK PACKER MR#: [id number] : 1985 Acct:[id number] Age/Sex: 39 / M ADM Date: 04/28/25 Loc: ER Attending Dr: Ordering Physician: Giorgio Horton D.O. Date of Service: 04/28/25 Procedure(s): XR acute abdomen series Accession Number(s): [id number] cc: LEIGHANN SORIANO ; Giorgio Horton D.O. [place] [address] Patient Name: CHUCK PACKER MRN: [id number] date: 1985 Sex: M Assigned Patient Location: ER Current Patient Location: Accession/Order Number: [id number] Exam Date: 04/28/2025 23:26 Report Date: 04/29/2025 16:18 At the request of: GIORGIO HORTON Procedure: XR acute abdomen series Acute abdominal series compared to prior examination 04/11/2025 HISTORY: Acute right-sided chest and abdominal pain for one day No acute chest findings. No subdiaphragmatic free intraperitoneal air. No gaseous intestinal distention. Cholecystectomy. Mild stool throughout the colon. No significant abdominal pelvic calcification. Bony structures intact. XR/XR acute abdomen series IMPRESSION: No acute chest findings. Nonspecific abdomen. Impression dictated by: Jil Chavez M.D. 04/29/2025 4:18 PM Dictation Location: [place] [address] Electronically authenticated by: [id number] Y Date: 04/29/2025 16:18 Dictated By: Jil Chavez D.O. Signed By: 04/29/25 162 DD/ 1618 TD/TT: Maker Up Folding:CT head/brain wo con Reviewed date:03/19/2025 10:38:37 AM Interpretation: Performing Lab: Notes/Report: Source Facility: [place] [address] CT Scan Report Signed Patient: CHUCK PACKER MR#: [id number] : 1985 Acct:[id number] Age/Sex: 39 / M ADM Date: Loc: ER Attending Dr: Ordering Physician: Jil Benitez Date of Service: 03/17/25 Procedure(s): CT head/brain wo con Accession Number(s): [id number] cc: LEIGHANN SORIANO [place] [address] Patient Name: CHUCK PACKER MRN: [id number] date: 1985 Sex: M Assigned Patient Location: ER Current Patient Location: ER Accession/Order Number: [id number] Exam Date: 03/17/2025 13:00 Report Date: 03/17/2025 [...] Chavez M.D. 03/17/2025 1:45 PM Dictation Location: [place] [address] Electronically authenticated by: [id number] Y Date: 03/17/2025 13:45 Dictated By: Jil Chavez D.O. Signed By: 03/17/25 1347 DD/ 44 TD/TT: Maker Up Folding:XR chest 2V Reviewed date:03/19/2025 10:38:37 AM Interpretation: Performing Lab: Notes/Report: Source Facility: [place] [address] [place] [address] XRay Report Signed Patient: CHUCK PACKER MR#: [id number] : 1985 Acct:[id number] Age/Sex: 39 / M ADM Date: Loc: ER Attending Dr: Ordering Physician: Jil Benitez Date of Service: 03/17/25 Procedure(s): XR chest 2V Accession Number(s): [id number] cc: LEIGHANN SORIANO ; Jil Benitez [place] [address] Patient Name: CHUCK PACKER MRN: [id number] date: 1985 Sex: M Assigned Patient Location: ER Current Patient Location: ER Accession/Order Number: [id number] Exam Date: 03/17/2025 13:00 Report Date: 03/17/2025 [...] Chavez M.D. 03/17/2025 1:46 PM Dictation Location: [place] [address] Electronically authenticated by: [id number] Y Date: 03/17/2025 13:46 Dictated By: Jil Chavez D.O. Signed By: 03/17/25 1348 DD/ 134 TD/TT: Maker Up Folding:ECG 12 lead Reviewed date:03/19/2025 10:38:37 AM Interpretation: Performing Lab: Notes/Report: Source Facility: [place] [address] [place] [address] Electrocardiograph Report Signed Patient: CHUCK PACKER MR#: [id number] : 1985 Acct:[id number] Age/Sex: 39 / M ADM Date: Loc: ER Attending Dr: Ordering Physician: Jil Benitez Date of Service: 03/17/25 Procedure(s): ECG 12 lead Accession Number(s): [id number] cc: 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 Measurements Intervals [place] Rate: 89 P: 44 NC: 138 QRS: 26 QRSD: 80 T: 46 QT: 334 QTc: 381 Interpretive Statements 1100 Sinus rhythm [address] elevation [address] [place] abnormality 9130 borderline ECG Compared to ECG 01/28/2025 12:24:48 No significant changes Electronically Signed On 03-17-2025 12:57:47 EST by JITENDRA FOOTE M.D. Dictated By: JITENDRA FOOTE Signed By: 03/17/25 1258 DD/ 1232 TD/TT: Maker Up Folding:SARS-CoV-2 Ag* Reviewed date:03/19/2025 10:38:37 AM Interpretation: Performing Lab: Notes/Report: [facility] ,SARS-CoV-2 AgNEGATIVENEGATIVE This test has not been [...] sooner. Performing Lab:see noteML - [facility] LBTroponin I High Sensitivity Reviewed date:03/19/2025 10:38:37 AM Interpretation: Performing Lab: Notes/Report: [facility] ,Troponin I High Sensitivity5.34.0-76.1 pg/mL CUT-OFF POINTS HAVE BEEN ESTABLISHED BASED ON THE FOURTH UNIVERSAL DEFINITION OF MYOCARDIAL INFARCTION. THE UPPER REFERENCE LIMIT (URL) OF TROPONIN, DEFINED THE 99TH PERCENTILE OF cTnI DISTRIBUTION IN A REFERENCE POPULATION, HAS BEEN CONFIRMED THE DECISION THRESHOLD FOR [place] DIAGNOSIS. 99TH PERCENTILE = 76.2 PG/ML NOTE: HIGH-SENSITIVITY TROPONIN ASSAY IS NOT INTENDED TO BE USED IN ISOLATION BUT SHOULD BE INTERPRETED IN CONJUNCTION WITH OTHER DIAGNOSTIC AND CLINICAL INFORMATION. Performing Lab:see noteML - [facility] LBPROF 14(COMP METB) Reviewed date:03/19/2025 10:38:37 AM Interpretation: Performing Lab: Notes/Report: [facility] ,Gjeira500003-115 mmol/LPotassium3.93.5-5.1 mmol/CShyorsbx88118-332 mmol/LCarbon Gmhwpcl76.321.0-32.0 mmol/LAnion Gap13.8Ronxinb25756-238 mg/dLBlood Urea Tovhcduv96.07.0-18.0 mg/dLCreatinine1.030.70-1.30 mg/dLEstimated GFR ( Anupama>60>=60 mL/min/1.73m 2Estimated GFR (Non- Tia>60>=60 mL/min/1.73m 2BUN Creatinine Ratio13.0Fokuhhx0.38.5-10.1 mg/dLBilirubin Total0.70.2-1.0 mg/dL Aspartate Amino Jlitaxirtpf4151-45 U/LAlanine Rtpvblitiubqbxab8473-59 U/L Alkaline Nqrcjqgkjjq7406-348 U/LTotal Protein8.66.4-8.2 g/dLAlbumin Level3.93.4- 5.0 g/dLGlobulin4.7Albumin Globulin Ratio0.8Performing Lab:see noteML - [facility] LBLIPASE Reviewed date:03/19/2025 10:38:37 AM Interpretation: Performing Lab: Notes/Report: [facility] ,Lrkxsx30.016.0-77.0 U/LPerforming Lab:see noteML - [facility] LB INFLUENZA A AND B AG Reviewed date:03/19/2025 10:38:37 AM Interpretation: Performing Lab: Notes/Report: [facility] ,Influenza Virus A AntigenNegative Negative for Flu [...] the test. Performing Lab:see noteML - [facility] LBCBC AUTO DIFF Reviewed date:03/19/2025 10:38:37 AM Interpretation: Performing Lab: Notes/Report: [facility] ,White Blood Count7.14.0-11.0 10 3/uLRed Blood Count5.474.70-6.10 10 6/uL Cthpdysqvq14.614.0-18.0 g/kKVmnwknmjxe52.142.0-54.0 %Mean Corpuscular Vtvicc39.3 80.0-94.0 fLMean Corpuscular Vggvumbucu79.325.9-34.0 pgMean Corpuscular HGB Conc 36.029.9-35.2 g/dLRed Cell Distribution Width12.111.0-15.0 %Platelet Qjkug059 150-450 10 3/uLMean Platelet Vtadpm09.19.5-13.5 fLNeutrophils Percent Auto58.3 43.0-75.0 %Lymphocytes Percent Auto35.320.5-60.0 %Monocytes Percent Auto5.61.7- 12.0 %Eosinophils Percent Auto0.40.9-7.0 %Basophils Percent Auto0.10.2-2.0 % Immature Granulocytes Pct Auto0.30.0-0.5 %Neutrophils Absolute Auto4.11.4-6.5 10 3/uLLymphocytes Absolute Auto2.51.2-3.8 10 3/uLMonocytes Absolute Auto0.40.3-0.8 10 3/uLEosinophils Absolute Auto0.00.0-0.7 10 3/uLBasophils Absolute Auto0.00.0- 0.1 10 3/uLImmature Granulocytes Abs Auto0.020.00-0.03 10 3/uLPerforming Lab:see noteML - [facility] LBD-DIMER Reviewed date:01/18/2025 10:48:48 AM Interpretation: Performing Lab: Notes/Report: [facility] ,D Dimer0.20<=0.59 mg/L FEU Increases in D-Dimer [...] hospitalization. Performing Lab:see noteML - [facility] LBCOVID-19, Flu A+B IH Reviewed date:03/19/2025 10:38:37 [...] Once a day; Duration: 30 dayscall for oyiwbp405ActiveTriamcinolone Acetonide 0.1 %1 application Externally Two times a Week12/10/2023ctiveCVS Glucose Meter Test Strips -as directed In Vitro daily; Duration: 30 days 04/03/2025tivePantoprazole Sodium 40 MG1 tablet Orally Once a [...] alcohol in the p ast year? No Arywvh5IiyfgreacxazmzDswujehiBKHYH-U (Standard) Question Answer Notes Did you have a drink containing alcohol in the p ast year? No Rsuodx8PquwemacohgywfRgwvqxeb Problems Problem Type SNOMED Code ICD Code Onset Dates Problem Status W/U Status Risk Notes Problem Overweight (559862877) Overweight (E66.3) ActiveconfirmedProblemGeneralized anxiety disorder (01994558)Generalized anxiety disorder (F41.1)ActiveconfirmedProblemDepression (105249395)Depression (F32.9) ActiveconfirmedProblemErectile dysfunction (733692218)Erectile dysfunction (N52.9)ActiveconfirmedProblemGastroesophageal reflux disease (587193527)GERD without esophagitis (K21.9)ActiveconfirmedProblemMigraine (46731976)Migraine (G43.909)ActiveconfirmedProblemType 2 diabetes mellitus (25326120)Type 2 diabetes mellitus (E11.9)ActiveconfirmedProblemBronchitis (93700241)Bronchitis (J40)ActiveconfirmedProblemRash (341055697)Rash (R21)ActiveconfirmedProblemUpper respiratory infection (26666868)Upper respiratory infection (J06.9)Active confirmedProblemShingles (6112469)Shingles (B02.9)ActiveconfirmedProblem Hemorrhoids (47585758)Hemorrhoids (K64.9)ActiveconfirmedProblemCurrent smoker (07164534)Current smoker (F17.200)ActiveconfirmedProblemAbdominal discomfort (29187414)Abdominal discomfort (R10.9)ActiveconfirmedProblemPanic attack (346108716)Panic attack (F41.0)ActiveconfirmedProblemBright red blood per rectum (675100408)Bright red blood per rectum (K62.5)ActiveconfirmedProblemAnal fissure (00104648)Rectal fissure (K60.2)ActiveconfirmedProblemPain in limb (24618090) Heel pain, right (M79.671)ActiveconfirmedProblemInsomnia (428853978)Insomnia disorder (G47.00)ActiveconfirmedProblemIrritable bowel syndrome (65410791) Irritable bowel syndrome (IBS) (K58.9)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)Bvhfm-Pmxpkyjxh-Suigd (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)Active confirmedProblemMixed anxiety and depressive disorder (047932539)Anxiety and depression (F41.8)ActiveconfirmedProblemMenopause (628509014)Insomnia associated with menopause (N95.1)Activeconfirmed Vital Signs Heart Rate 109 /min 06/15/2024 Hfgqaaondyu39.4 degrees Sybswrfait73/04/9579Cjizpjbj67 %06/15/2024lood pressure whoykujuq92 mm Hg04/20/20258609Tgxkbb92 in04/20/2025lood pressure trmupfxx868 mm Hg 04/20/20258587Xpdhys622.8 lbs106/21/2024BMI35.15 kg/m204/20/2025 Encounters Encounter Location Date Provider Diagnosis [facility] [address] [place] [address] 04/17/2025 Leighann Soriano [facility] [place] [address] 04/17/2025Leighann [facility] [place] [address]/Leighann [facility] [address] [place] [address]/Leighann [facility] [place], [place] [address]/01/2025[place]ela [place]Ste[place] [address] [facility] [place] [address]/ Leighann CramerInsomnia disorder G47.00 ; Rash and other nonspecific skin eruption R21 and Depression F32.[address] [place] [address]/Pamela CramerGastroenteritis K52.[address], [facility]/ Leighann KarenmerBody aches R52 ; Gastroenteritis K52.[address] V[address], [facility]/ Leighann CramerPanic attack F41.0 and Anxiety and depression F41.[address], [facility]/Pamela CramerBronchitis [address], [facility]/Doug HoyGastroenteritis K52.9B[address], [facility]/06/2024Pamela CramerType 2 diabetes mellitus E11.9 and Anxiety and depression F41.[address], [facility]/10/2024 Martínez HoyCough R05.9 and Acute bronchitis, unspecified organism J20.[address], [facility]/08/2024 Martínez HoyAcute non-recurrent sinusitis, unspecified location J01.90 [...] OWN fu if not improving, sx worsen 5Bronchitis (ICD-10 - J40)fu if not omhrroyfy96/20/2025Gastroenteritis (ICD-10 - K52.9)Get plenty of rest. Stay hydrated by sucking on ice chips or taking small sips of water. You can also try drinking clear soda, clear broths or noncaffeinated sports drinks. Stop eating solid foods for a few hours to let your stomach settle. East back into eating by eating bland, jnky-zq-iqavpi foods like crackers, toast, gelatin, bananas, rice and chicken. Try to avoid foods/substances including dairy products, caffeine, alcohol, nicotine and fatty or highly seasoned foods. Medications such as ibuprofen or tylenol can make your stomach more upset, so use sparingly if at all. Also avoid txqy-bhq-hyduxdx anti-diarrheal medications because it can make it harder for your body to eliminate the virus.5Acute non-recurrent sinusitis, unspecified location (ICD-10 - J01.90)Rest and drink more liquids, especially water. You may use a humidifier or vaporizer to help keep the drainage moist. Itfr-umx-jrqcspb Nasal Saline may help the stuffy and runny nose. Use Ibuprofen and or Tylenol as needed for fever, chills, body aches or pain. Children 5 years old should not be given bfaf-wnz-ejhfleq cough and cold medications such as guaifenesin and dextromethorphan. If you're over age 5, you may try pila-ufp-ecmevya cold medications such as guaifenesin and dextromethorphan, [...] below 65 consecutively. Reviewed with patient the group home effects of Diabetes Mellitus on the body [...] vaporizer to help keep the drainage moist. Lknj-mnd-tmusspz Nasal Saline may help the stuffy and runny nose. Use Ibuprofen and or Tylenol as needed for fever, chills, body aches or pain. Children 5 years old should not be given urwv-rfx-cmrsggu cough and cold medications such as guaifenesin and dextromethorphan. If you're over age 5, you may try qaws-erk-wnqlhed cold medications such as guaifenesin and dextromethorphan, [...] go to the emergency room or call [id number] (ICD-10 - F32.9) psych referral sheet given needs to re establish with psych will review meds with Dr Donato Plan Of Treatment Pending Test Test Name Order Date COVID-19, Flu A+B IH 07/14/2024 Next Appt Details Provider Name:Leighann Marga doss, 05/04/2025 09:30:00 AM, [address] [place], [id number], Medical (General) History Medical History History ICD Code Bronchitis J40 Heel pain, right M79.671 Hemorrhoids K64.9 Upper respiratory infection J06.9 Depression F32.9 Rash R21 Shingles B02.9 Migraine G43.909 Gastro-esophageal reflux disease K21.9 Bright red blood per rectum K62.5 Irritable bowel syndrome (IBS) K58.9 Panic attack F41.0 Vjrab-Uilpaggte-Gfgbc (WPW) syndrome I45 .6 Overweight E66.3 Abdominal discomfort R10.9 Generalized anxiety disorder F41.1 Current smoker F17.200
[2025-04-30 20:54] LABS: Hematocrit 46.1 % (42.0-54.0); Hemoglobin 16.3 g/dL (14.0-18.0); Immature Granulocytes Abs Auto 0.01 10^3/uL (0.00-0.03); Immature Granulocytes Pct Auto 0.1 % (0.0-0.5); Lymphocytes Absolute Auto 3.0 10^3/uL (1.2-3.8); Mean Corpuscular HGB Conc 35.4 g/dL (29.9-35.2); Mean Corpuscular Hemoglobin 30.1 pg (25.9-34.0); Mean Corpuscular Volume 85.2 fL (80.0-94.0); Platelet Count 200 10^3/uL (150-450); Red Blood Count 5.41 10^6/uL (4.70-6.10); White Blood Count 7.0 10^3/uL (4.0-11.0)
--- NOTE | 2025-04-30 21:15 | XR_ITS ---
[place] [id number] Patient Name: CHUCK PACKER MRN: [id number] date: 1985 Sex: M Assigned Patient Location: ER Current Patient Location: ED.MAIN Accession/Order Number: [id number] Exam Date: 04/30/2025 21:23 Report Date: 04/30/2025 21:37 At the request of: LIYA MEADOWS MD Procedure: XR chest 1V XR chest 1V 04/30/2025 9:27 PM SIGNS AND SYMPTOMS: ^CP PROTOCOL: Frontal radiograph of the chest COMPARISON: 04/11/2025 FINDINGS: The trachea is midline. The heart and mediastinal structures are within normal limits. The lung parenchyma is clear. The bony thorax is intact. XR/XR chest 1V IMPRESSION: No acute cardiopulmonary pathology. Impression dictated by: Antione Enamorado M.D. 04/30/2025 9:37 PM Dictation Location: [place] [address] Electronically authenticated by: [id number] Y Date: 04/30/2025 21:37
[2025-04-30 21:18] LABS: Alanine Aminotransferase 37 U/L (16-63); Albumin Globulin Ratio 0.9; Albumin Level 3.8 g/dL (3.4-5.0); Alkaline Phosphatase 63 U/L (46-116); Anion Gap 10.8; Aspartate Amino Transferase 22 U/L (15-37); Blood Urea Nitrogen 14.0 mg/dL (7.0-18.0); Calcium 9.0 mg/dL (8.5-10.1); Carbon Dioxide 28.1 mmol/L (21.0-32.0); Chloride 104 mmol/L (98-107); Estimated GFR (African America >60 (>=60 mL/min/1.73m^2); Estimated GFR (Non-African Ame >60 (>=60 mL/min/1.73m^2); Globulin 4.1 g/dL; Glucose 133 mg/dL (74-106); Potassium 3.9 mmol/L (3.5-5.1); Sodium 139 mmol/L (136-145); Total Protein 7.9 g/dL (6.4-8.2)
== END 2025-04-30 21:53 | disposition home or self-care (01) ==
PROVIDERS: Emergency Provider Emergency Medicine; PCP Nurse Practitioner Family
DX: R07.89 Other chest pain (principal); F17.200 Nicotine dependence, unspecified, uncomplicated
CPT/HCPCS: 36415; 71045; 80053; 84484; 85025; 85378; 93005; 96374; 99284; J2405